=== PATIENT | male | born 1975 | race Caucasian/White ===

== ENCOUNTER 2018-11-13 15:03 | Emergency (ER) | payer MEDICAID, SELFPAY ==
[2018-11-13] VITALS (27 sets, daily range): BP systolic 137–161; BP diastolic 71–122; PULSE 74–103; RESP 14–25; TEMP 36.6–37.4; O2SAT 95–99
--- NOTE | 2018-11-13 15:22 | W.ED.GENAD ---
Discharge Plan Disposition Patient Disposition: HOME Condition: Good Discharge Details Chief Complaint: Chest Pain Clinical Impression: Chest tightness, Hypokalemia, Hypomagnesemia Primary Care Provider: Jerrica Gomes ED Provider: Florencio Scott Home Meds and New Rx's Prescriptions: No Action No Known Home Meds RF: 0 Discharge Instructions Instructions: Hypokalemia (ED), Hypomagnesemia (ED) Additional Instructions: Please follow-up with your primary care physician this week for further evaluation of chest tightness. You may need outpatient stress testing. Your potassium and magnesium were low most likely due to your alcohol use. You should consider trying to cut back on your alcohol consumption. Return to emergency department if you develop new or worsening pain, shortness of breath, lightheadedness, other concerns. Referrals: Jerrica Gomes [Primary Care Provider] - Medical Decision Making Patient arrives with complaint of chest tightness and shortness of breath which has resolved. He has had it maybe 5 times in the last few months. It is not exertional. There is no pleuritic component. There is no radiation of the pain. His EKG is unremarkable. Will place IV and check laboratory studies including 2 sets of troponins. He is PERC negative. He will be given aspirin while labs and chest x-ray are pending. Patient has not had no recurrent symptoms. His first troponin is negative. His HEART score is 1 making him low risk. His potassium and magnesium are low. He is a chronic daily drinker and this is likely the source of his electrolyte disturbance. These are replaced. Liver function is normal. Will hold for second troponin and EKG. If negative can be discharged follow-up with primary care with outpatient stress testing if needed. Patient second EKG remained normal. Second troponin has come back negative. He has had no recurrent symptoms in the ED. He is discharged and asked to follow-up with primary care. He is made aware of the electrolyte abnormalities and the likely cause. He is stable at time of discharge. Lab Data Lab results reviewed: Yes I reviewed the patient's lab results. ECG Data Attestation: I personally reviewed and interpreted this ECG (s) as follows: Interpretation: Normal sinus rhythm at 91. Normal axis and intervals. Normal ST HPI General Mode of arrival: ambulatory. Date/Time Provider Initiated Documentation: 11/13/18 15:21. Limitations to Documentation: no limitations. Information obtained by: patient. HPI Narrative: Patient presents to ED with complaint of chest tightness. He had a little bit of shortness of breath. He did not have diaphoresis, lightheadedness, nausea. Symptoms lasted for maybe half an hour. He has had them in the past intermittently may be 5 times over the last few months. They are not exertional. He has no symptoms now. He does smoke. He otherwise has no cardiac risk factors. He has no pleuritic type pain, leg swelling, leg pain. He has had no fever or cough. Related Data Home Medications Medication Instructions Recorded Confirmed Unknown [No Known Home Meds] 11/13/18 11/13/18 Allergies Allergy/AdvReac Type Severity Reaction Status Date / Time No Known Allergies Allergy Unverified 02/27/18 09:29 General Stated Complaint: Chest Pain SARAH: 2 Review of Systems Constitutional Denies chills, Denies fever(s), Denies headache(s) and Denies weakness ENT Denies otalgia, Denies facial pain, Denies headache(s) and Denies neck pain Cardiovascular Reports chest pain, Denies diaphoresis, Denies syncope, Denies pedal edema, Denies lightheadedness and Reports dyspnea Respiratory Denies cough and Reports dyspnea Gastrointestinal Denies abdominal pain, Denies diarrhea, Denies nausea and Denies vomiting Musculoskeletal Denies back pain and Denies neck pain Integumentary/Breasts Denies rash Neurologic Denies syncope, Denies headache(s), Denies focal weakness and Denies weakness [facility] Social History Smoking/Tobacco Use Status: Current every day Alcohol Intake: current Alcohol Intake frequency: 3 or more drinks per day Drug use: Never Substance use type: does not use Do you feel safe at home: Yes Do you feel safe in your relationship?: Yes Exam Const General: cooperative and comfortable Orientation: alert and oriented x3 HENMT Head: normocephalic and atraumatic Neck Neck: trachea midline and supple Resp Effort & Inspection: normal respiratory effort Auscultation: clear to auscultation bilaterally Cardio Rate: regular rate Rhythm: regular rhythm Heart Sounds: S1 normal and S2 normal Pulses: radial pulses present GI Inspection: non-distended Palpation: soft and nontender Skin Rashes: no rashes Neuro General: alert, oriented x3, no focal motor deficits and CN's II-XI intact bilaterally Extrem General: no clubbing, cyanosis or edema, no pedal edema and no calf tenderness Course Vital Signs Temperature 99.3 F 11/13/18 15:13 Pulse 93 H 11/13/18 15:13 Respiratory Rate 18 11/13/18 15:13 Blood Pressure 161/75 H 11/13/18 15:13 Pulse Oximetry 99 11/13/18 15:13 Temperature 99.3 F 11/13/18 15:13 Pulse 93 H 11/13/18 15:13 Respiratory Rate 18 11/13/18 15:13 Respiratory Effort Non-Labored 11/13/18 15:16 Blood Pressure 161/75 H 11/13/18 15:13 Pulse Oximetry 99 11/13/18 15:13 Oxygen Delivery Method Room Air 11/13/18 15:13 Oxygen Flow Rate 0 11/13/18 15:13 Pain Level 5 11/13/18 15:13
--- NOTE | 2018-11-13 15:41 | DI.RAD_ITS ---
SYMPTOM/DIAGNOSIS: CHEST PAIN PA AND LATERAL CHEST: Comparison is made with 05/15/17. The cardiac and mediastinal contours have a normal appearance. The lungs are well inflated and clear. No infiltrate, effusion or pneumothorax is seen. IMPRESSION: Negative chest xray.
[2018-11-13 15:54] LABS: Abs Immature Grans 0.01 k/cumm (0.0-0.09); Absolute Basophil Count 0.03 k/cumm (0.0-0.2); Absolute Lymphocyte Count 1.43 k/cumm (1.2-3.4); Absolute Monocyte Count 0.95 k/cumm (0.11-0.7); Absolute Neutrophil Count 6.11 k/cumm (1.2-6.7); Basophils % 0.3; Eosinophils % 1.2; HCT 40.9 % (40.0-50.0); HGB 14.4 g/dL (13.5-17.5); Immature Grans % 0.1; Lymphocytes % 16.6; Mean Corp. HGB Concentration 35.2 g/dL (32.0-36.0); Mean Corpuscular Volume 96.7 fL (80-95); Mean Platelet Volume 10.1 fL (8.0-11.0); Neutrophils % 70.8; Platelet Count 190 x1000/uL (130-400); RBC 4.23 m/cumm (4.50-6.00); RBC Distribution Width 12.7 % (11.8-14.1); White Blood Cell Count 8.63 k/cumm (4.4-10.8)
[2018-11-13 16:03] LABS: ALT 78 U/L (12-78); Albumin 3.7 g/dL (3.4-5.0); Alkaline Phosphatase 92 U/L (46-116); Anion Gap 12.7 mmol/L (3-11); BUN 11 mg/dL (7-18); Bilirubin, Total 0.4 mg/dL (0.2-1.0); CO2 26.3 mmol/L (21.0-32.0); CREATININE 0.73 mg/dL (0.70-1.30); Calcium 9.2 mg/dL (8.5-10.1); Chloride 98 mmol/L (98-107); Glucose 151 mg/dL (70-100); Magnesium 1.2 mg/dL (1.8-2.4); Potassium 3.1 mmol/L (3.5-5.1); Sodium 137 mmol/L (136-145); Total Protein 7.5 g/dL (6.4-8.2)
[2018-11-13 16:35] LABS: Troponin I < 0.02 ng/mL (0.00-0.06)
[2018-11-13 16:46] LABS: AST 70 U/L (15-37)
[2018-11-13] MEDS: MAGNESIUM SULFATE 2 GM/50 ML BAG IVPB (17:32)
[2018-11-13] MEDS: Potassium Chloride 20 MEQ TABCR 40 MEQ PO (17:32)
--- NOTE | 2018-11-13 18:03 | DI.VRAD_ITS ---
EXAM: XR Chest, 2 Views EXAM DATE/TIME: 11/13/2018 3:46 PM CLINICAL HISTORY: 43 years old, male; Chest pain for the last 4hrs TECHNIQUE: Imaging protocol: XR of the chest, 2 views. COMPARISON: CR CHEST 2 VIEWS PA,LAT 05/15/2017 7:05 AM FINDINGS: Lungs: Unremarkable. No consolidation. Pleural space: Unremarkable. No pleural effusion. No pneumothorax. Heart/Mediastinum: Unremarkable. No cardiomegaly. Bones/joints: Unremarkable. IMPRESSION: No active pulmonary disease. No acute change compared to 05/15/2017. Dictated and Authenticated by: Jeremy Angeles MD. Ordering:OPHELIA Matias MD
[2018-11-13 20:39] LABS: Troponin I < 0.02 ng/mL (0.00-0.06)
[2018-11-13 20:51] LABS: Lactate-non-spesis 0.8 mmol/l (0.6-1.4)
== END 2018-11-13 21:21 | disposition home or self-care (01) ==
PROVIDERS: Emergency Medicine; Emergency Provider Emergency Medicine; PCP Nurse Practitioner Family
DX: R07.89 Other chest pain (principal); E87.6 Hypokalemia; E83.42 Hypomagnesemia
CPT/HCPCS: 36415; 80053; 93005; 96361; 96365; 96366; 99285; 71046; 83605; 83735; 84484; 85025; 93010

== ENCOUNTER 2018-12-27 17:31 | Emergency (ER) | payer MEDICAID, SELFPAY ==
[2018-12-27 17:45] VITALS: BP 142/94; PULSE 83; RESP 16; TEMP 36.7; O2SAT 96
[2018-12-27] MEDS: Erythromycin Ophth Oint 3.5 GM TUBE (18:35)
[2018-12-27] MEDS: Tetracaine 0.5% 4 ML BTL (18:35)
[2018-12-27] MEDS: Fluorescein STRIPS 100/BOX 1 MG (18:35)
--- NOTE | 2018-12-27 18:37 | W.ED.GENAD ---
Discharge Plan Disposition Patient Disposition: HOME Condition: Good Discharge Details Chief Complaint: EyeProblem Clinical Impression: Conjunctivitis of right eye Primary Care Provider: Jerrica Gomes ED Provider: Alejandro Thomas Home Meds and New Rx's Prescriptions: No Action No Known Home Meds RF: 0 Discharge Instructions Instructions: Conjunctivitis (ED) Additional Instructions: Please apply a thin ribbon of the erythromycin ointment to your eye 4 times daily. Please follow-up as soon as possible with Dr. Charles. If you notice worsening of her symptoms or new symptoms of vision changes, eye pain, fever or chills, or swelling around the eye please return immediately. Referrals: [facility] [OTHER] - Discharge Data Discharge Date/Time-TO BE ENTERED AT DEPARTURE: 12/27/18 19:00 Medical Decision Making This is a pleasant 43-year-old male with no significant past medical history who does not wear contact lenses who presents today for evaluation of irritation to his right eye. Symptoms began this morning. Physical exam demonstrates mild conjunctival injection with clear runny drainage. No evidence of significant purulence. Floor seen stain demonstrates no evidence of corneal abrasion or uptake, negative Subhash sign. No evidence of pre-or post septal cellulitis. Signs and symptoms appear clinically consistent with a viral conjunctivitis. Recommend eyewashes, handwashing techniques, will give erythromycin ointment for symptom improvement. We discussed red flags which to return as well as the importance of close follow-up with his memory care program resident Dr. Charles. I have extensively reviewed the treatment plan and discharge instructions with the patient and their family. I have addressed all patient concerns at this time. The patient and family was made aware of what symptoms to monitor for that would warrant a return to the emergency department. Discussed the plan with the patient and family, they demonstrate verbal understanding and agreement with our assessment and plan at this time. Physical HPI General Date/Time Provider Initiated Documentation: 12/27/18 18:07. HPI Narrative: This is a 43-year-old male with no significant past medical history who is not a contact lens wear who presents for irritation in his right eye. He states that it started this morning when he woke up, and it feels like there is a yamil grinding sensation in his eye. He denies any foreign bodies, any working with metal, welding, or hammers. He denies any new trauma to his eye. He denies any vision changes, or pain with movement of the eye he does admit to a very small amount of clear drainage from his right eye, but denies any other complaints. No other modifying factors. Tetanus is up-to-date.. Related Data Home Medications Medication Instructions Recorded Confirmed Unknown [No Known Home Meds] 11/13/18 12/27/18 Allergies Allergy/AdvReac Type Severity Reaction Status Date / Time No Known Allergies Allergy Unverified 12/27/18 17:48 General Stated Complaint: EyeProblem SARAH: 5 Review of Systems Review of Systems All systems reviewed & are unremarkable except as noted in HPI and below PFSH Social History Smoking/Tobacco Use Status: Current every day Alcohol Intake: current Alcohol Intake frequency: 3 or more drinks per day Drug use: Never Substance use type: does not use Do you feel safe at home: Yes Do you feel safe in your relationship?: Yes Exam Narrative Exam Narrative: 1.Const: Well-nourished, Well-developed, appearing stated age 2.Eyes: PERRL, notable right conjunctival injection, and symmetrical lids. Right eye: EOMI, PERRL, Peripheral vision intact. No nystagmus. Fundoscopic exam shows normal optic discs and normal vasculature. No external signs of preseptal cellulitis, no redness around the eye, no proptosis. No hyphema, no signs of trauma around the eye, no periorbital emphysema. Fluorescein exam is negative for corneal abrasion, negative Subhash sign. Visual acuity as documented in chart. 3.ENT: Atraumatic external nose and ears. Moist MM. Neck: Symmetric, trachea midline, No thyromegaly. 4.CVS: +S1/S2, No murmurs or gallops. Peripheral pulses 2+ and equal in all extremities. Brisk capillary refill in all extremities. 5.RESP: Unlabored respiratory effort. Clear to auscultation bilaterally. No wheezes rales or rhonchi 6.GI: Soft, Nontender/Nondistended, No hepatosplenomegaly. No guarding or rebound. 7.MSK: Normocephalic/Atraumatic, Extremities w/o deformity or ttp No cyanosis or clubbing, Normal movement of all extremities 8.Skin: Warm, Dry. No rashes or lesions. 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 Sensation grossly intact, no focal neurologic deficits. 10.Psych: (AAO) x3. Appropriate mood and affect Course Vital Signs Temperature 36.7 C 12/27/18 17:45 Pulse 83 12/27/18 17:45 Respiratory Rate 16 12/27/18 17:45 Blood Pressure 142/94 H 12/27/18 17:45 Pulse Oximetry 96 12/27/18 17:45 Temperature 36.7 C 12/27/18 17:45 Temperature Source Skin 12/27/18 17:45 Pulse 83 12/27/18 17:45 Respiratory Rate 16 12/27/18 17:45 Respiratory Effort Non-Labored 12/27/18 17:47 Blood Pressure 142/94 H 12/27/18 17:45 Pulse Oximetry 96 12/27/18 17:45 Pain Level 7 12/27/18 17:45
== END 2018-12-27 19:00 | disposition home or self-care (01) ==
PROVIDERS: Emergency Provider Student in an Organized Health Care Education/Training Program; PCP Nurse Practitioner Family
DX: H10.31 Unspecified acute conjunctivitis, right eye (principal)
CPT/HCPCS: 99283

== ENCOUNTER 2019-01-09 11:46 | Emergency (ER) | payer MEDICAID, SELFPAY ==
[2019-01-09 11:54] VITALS: BP 120/80; PULSE 90; RESP 18; TEMP 36.5; O2SAT 95
--- NOTE | 2019-01-09 12:08 | W.ED.GENAD ---
Discharge Plan Disposition Patient Disposition: HOME Condition: Stable Discharge Details Chief Complaint: Orthopedic Clinical Impression: Blunt chest trauma, Blunt abdominal trauma, Left rib fracture Primary Care Provider: Jerrica Gomes ED Provider: Manolo Jeffers Home Meds and New Rx's Prescriptions: No Action ibuprofen 200 mg Tablet 400 mg PO PRN PRNRF: 0 Discharge Instructions Instructions: Rib Fracture (ED) Additional Instructions: use the spirometer every hour while awake you can take 1000mg tylenol and 600mg ibuprofen every 6 hours for pain as needed if you have severe worsening of pain, difficulty breathing or fevers return to the emergency department Medical Decision Making 43 yo male who denies chronic medical problems comes in with rigth flank pain. he states two days ago he tripped over a boot and landed on a chair on his right flank area, denies head trauma or loc. Denies chest pain, sob, neck pain or headache. He has bruising to the right flank with lower rib pain and some right sided abdominal tenderness. given the fall will image to eval for traumatic injuries. He denies any preceding symptoms so doubt presyncope/syncope labs unremarkable, ct shows nondisplaced posterior left 11th rib per dr. winn. He remains stable, declining pain meds. will d/c with IS and return precautions given Differential Diagnosis contusion, sprain, fx Medical Records Medical records reviewed: Yes I reviewed the patient's medical records. Imaging Data Radiologic Study: Attestation: I personally reviewed and interpreted this imaging study as follows: Imaging: CT Scan Radiologist's impression: 11th rib fx Lab Data Lab results reviewed: Yes I reviewed the patient's lab results. HPI General Mode of arrival: ambulatory. Date/Time Provider Initiated Documentation: 01/09/19 11:55. Limitations to Documentation: no limitations. Information obtained by: patient. History of Present Illness 43 year old M presents to the emergency department with the chief complaint of right flank pain, described as moderate, Quality is described as aching, and is localized to the back. Patient reports radiation to back. Patient started experiencing this day(s) (2) and it has been constant. No relieving factors improve symptom(s), No exacerbating factors reported . Patient notes no other symptoms.. Patient did receive the following treatments prior to arrival, NSAID Related Data Home Medications Medication Instructions Recorded Confirmed ibuprofen 400 mg PO PRN PRN 01/09/19 01/09/19 Allergies Allergy/AdvReac Type Severity Reaction Status Date / Time No Known Allergies Allergy Unverified 01/09/19 12:12 General Stated Complaint: Orthopedic SARAH: 4 Review of Systems Review of Systems All systems reviewed & are unremarkable except as noted in HPI and below Constitutional Denies chills, Denies fever(s) and Denies weakness ENT Denies change in voice Cardiovascular Denies chest pain and Denies dyspnea Respiratory Denies cough and Denies dyspnea Gastrointestinal Denies nausea and Denies vomiting Genitourinary Denies dysuria Integumentary/Breasts Denies rash Neurologic Denies weakness Psychiatric Denies depression [facility] Social History Smoking/Tobacco Use Status: Current every day Alcohol Intake: current Alcohol Intake frequency: 3 or more drinks per day Drug use: Never Substance use type: does not use Do you feel safe at home: Yes Do you feel safe in your relationship?: Yes Exam Const General: no acute distress Orientation: alert HENMT Head: normal to inspection Ears: external ears normal General nose exam: external nose normal Mouth: moist mucous membranes Eyes General: appearance normal, both eyes and all related structures Neck Neck: normal visual inspection Resp Effort & Inspection: normal respiratory effort and able to speak in complete sentences Cardio Rate: regular rate Skin General skin exam: elasticity normal Neuro General: alert and oriented x3 Extrem General: normal to inspection Psych Mental Status: mental status grossly normal Course Vital Signs Temperature 36.5 C 01/09/19 11:54 Pulse 90 01/09/19 11:54 Respiratory Rate 18 01/09/19 11:54 Blood Pressure 120/80 01/09/19 11:54 Pulse Oximetry 95 01/09/19 11:54 Temperature 36.5 C 01/09/19 11:54 Temperature Source Temporal Artery Scan 01/09/19 11:54 Pulse 90 01/09/19 11:54 Respiratory Rate 18 01/09/19 11:54 Respiratory Effort 01/09/19 11:58 Blood Pressure 120/80 01/09/19 11:54 Pulse Oximetry 95 01/09/19 11:54 Oxygen Delivery Method Room Air 01/09/19 11:54 Oxygen Flow Rate 0 01/09/19 11:54 Pain Level 6 01/09/19 11:54
--- NOTE | 2019-01-09 12:13 | ED.GENADUL_ITS ---
Discharge Plan Disposition Patient Disposition: HOME Condition: Stable Discharge Details Chief Complaint: Orthopedic Clinical Impression: Blunt chest trauma, Blunt abdominal trauma, Left rib fracture Primary Care Provider: Jerrica Gomes ED Provider: Manolo Jeffers Home Meds and New Rx's Prescriptions: No Action ibuprofen 200 mg Tablet 400 mg PO PRN PRNRF: 0 Discharge Instructions Instructions: Rib Fracture (ED) Additional Instructions: use the spirometer every hour while awake you can take 1000mg tylenol and 600mg ibuprofen every 6 hours for pain as needed if you have severe worsening of pain, difficulty breathing or fevers return to the emergency department Medical Decision Making 43 yo male who denies chronic medical problems comes in with rigth flank pain. he states two days ago he tripped over a boot and landed on a chair on his right flank area, denies head trauma or loc. Denies chest pain, sob, neck pain or headache. He has bruising to the right flank with lower rib pain and some right sided abdominal tenderness. given the fall will image to eval for traumatic injuries. He denies any preceding symptoms so doubt presyncope/syncope labs unremarkable, ct shows nondisplaced posterior left 11th rib per dr. winn. He remains stable, declining pain meds. will d/c with IS and return precautions given Differential Diagnosis contusion, sprain, fx Medical Records Medical records reviewed: Yes I reviewed the patient's medical records. Imaging Data Radiologic Study: Attestation: I personally reviewed and interpreted this imaging study as follows: Imaging: CT Scan Radiologist's impression: 11th rib fx Lab Data Lab results reviewed: Yes I reviewed the patient's lab results. HPI General Mode of arrival: ambulatory . Date/Time Provider Initiated Documentation: 01/09/19 11:55 . Limitations to Documentation: no limitations . Information obtained by: patient . History of Present Illness 43 year old M presents to the emergency department with the chief complaint of right flank pain, described as moderate, Quality is described as aching, and is localized to the back. Patient reports radiation to back. Patient started experiencing this day(s) (2) and it has been constant. No relieving factors improve symptom(s), No exacerbating factors reported . Patient notes no other symptoms.. Patient did receive the following treatments prior to arrival, NSAID Related Data Home Medications Medication Instructions Recorded Confirmed ibuprofen 400 mg PO PRN PRN 01/09/19 01/09/19 Allergies Allergy/AdvReac Type Severity Reaction Status Date / Time No Known Allergies Allergy Unverified 01/09/19 12:12 General Stated Complaint: Orthopedic SARAH: 4 Review of Systems Review of Systems All systems reviewed & are unremarkable except as noted in HPI and below Constitutional Denies chills, Denies fever(s) and Denies weakness ENT Denies change in voice Cardiovascular Denies chest pain and Denies dyspnea Respiratory Denies cough and Denies dyspnea Gastrointestinal Denies nausea and Denies vomiting Genitourinary Denies dysuria Integumentary/Breasts Denies rash Neurologic Denies weakness Psychiatric Denies depression [facility] Social History Smoking/Tobacco Use Status: Current every day Alcohol Intake: current Alcohol Intake frequency: 3 or more drinks per day Drug use: Never Substance use type: does not use Do you feel safe at home: Yes Do you feel safe in your relationship?: Yes Exam Const General: no acute distress Orientation: alert HENMT Head: normal to inspection Ears: external ears normal General nose exam: external nose normal Mouth: moist mucous membranes Eyes General: appearance normal, both eyes and all related structures Neck Neck: normal visual inspection Resp Effort & Inspection: normal respiratory effort and able to speak in complete sentences Cardio Rate: regular rate Skin General skin exam: elasticity normal Neuro General: alert and oriented x3 Extrem General: normal to inspection Psych Mental Status: mental status grossly normal Course Vital Signs Temperature 36.5 C 01/09/19 11:54 Pulse 90 01/09/19 11:54 Respiratory Rate 18 01/09/19 11:54 Blood Pressure 120/80 01/09/19 11:54 Pulse Oximetry 95 01/09/19 11:54 Temperature 36.5 C 01/09/19 11:54 Temperature Source Temporal Artery Scan 01/09/19 11:54 Pulse 90 01/09/19 11:54 Respiratory Rate 18 01/09/19 11:54 Respiratory Effort 01/09/19 11:58 Blood Pressure 120/80 01/09/19 11:54 Pulse Oximetry 95 01/09/19 11:54 Oxygen Delivery Method Room Air 01/09/19 11:54 Oxygen Flow Rate 0 01/09/19 11:54 Pain Level 6 01/09/19 11:54
[2019-01-09] MEDS: Ketorolac 15 MG/ML VIAL IVP (12:22)
[2019-01-09 12:35] LABS: Abs Immature Grans 0.03 k/cumm (0.0-0.09); Absolute Basophil Count 0.05 k/cumm (0.0-0.2); Absolute Eosinophil Count 0.17 k/cumm (0.0-0.7); Absolute Lymphocyte Count 3.14 k/cumm (1.2-3.4); Absolute Neutrophil Count 5.77 k/cumm (1.2-6.7); Basophils % 0.5; Eosinophils % 1.7; HCT 46.3 % (40.0-50.0); HGB 16.1 g/dL (13.5-17.5); Immature Grans % 0.3; Lymphocytes % 30.6; Mean Corp. HGB Concentration 34.8 g/dL (32.0-36.0); Mean Corpuscular Hemoglobin 34.3 pg (27.0-33.0); Mean Corpuscular Volume 98.7 fL (80-95); Mean Platelet Volume 9.7 fL (8.0-11.0); Monocytes % 10.7; Neutrophils % 56.2; Platelet Count 224 x1000/uL (130-400); RBC 4.69 m/cumm (4.50-6.00); RBC Distribution Width 12.7 % (11.8-14.1); White Blood Cell Count 10.26 k/cumm (4.4-10.8)
[2019-01-09 12:41] LABS: PTT Activated 25.1 sec (21.0-31.4); Prothrombin Time 10.1 sec (9.3-11.0)
[2019-01-09 12:42] LABS: ALT 57 U/L (12-78); AST 46 U/L (15-37); Alkaline Phosphatase 63 U/L (46-116); Anion Gap 13.5 mmol/L (3-11); BUN 12 mg/dL (7-18); Bilirubin, Total 0.3 mg/dL (0.2-1.0); CO2 26.5 mmol/L (21.0-32.0); CREATININE 0.83 mg/dL (0.70-1.30); Calcium 9.3 mg/dL (8.5-10.1); Chloride 103 mmol/L (98-107); Glucose 109 mg/dL (70-100); Potassium 3.7 mmol/L (3.5-5.1); Sodium 143 mmol/L (136-145); Total Protein 8.4 g/dL (6.4-8.2)
[2019-01-09] MEDS: Omnipaque 350 MG/ML 100 ML BTL IJ (12:53)
[2019-01-09] MEDS: Normal Saline Flush 10 ML SYR IVP (12:55)
--- NOTE | 2019-01-09 13:00 | DI.CT_ITS ---
SYMPTOMS/DIAGNOSIS: RT LOWER THORAX/ABDOMEN PAIN, S/P TRAUMA CT OF THE CHEST, ABDOMEN AND PELVIS: Comparison is made with abdomen and pelvic CT dated and chest x-ray dated . Images were performed from the clavicles through the ischial tuberosities after IV contrast. The heart and great vessels appear intact. There are coronary artery calcifications. The heart size is normal. No pleural or pericardial effusions are seen. There are mild paraseptal emphysematous changes greatest in the right upper lobe. There is no evidence of pneumothorax or pulmonary contusion. There is a nondisplaced fracture of the left eleventh rib posteriorly. There is slight deformity of the lateral tenth rib which may represent an old fracture. No spine or pelvic fractures are seen. The liver, spleen, pancreas, adrenals and gallbladder are unremarkable. There is a cyst at the upper pole of the left kidney. There is slight stranding around the kidneys but no evidence of a focal renal injury. There is no free air or free fluid. There is no bowel dilatation or inflammatory change. The appendix appears normal. The prostate and bladder are unremarkable. IMPRESSION: Nondisplaced fracture of the left eleventh rib. Minimal amount of stranding is seen around the kidneys but there is no evidence of focal renal injury.
[2019-01-09 13:57] VITALS: BP 115/74; PULSE 74; RESP 18; O2SAT 98
== END 2019-01-09 13:46 | disposition home or self-care (01) ==
PROVIDERS: Emergency Provider Emergency Medicine; PCP Nurse Practitioner Family
DX: S22.32XA Fracture of one rib, left side, initial encounter for closed fracture (principal); W01.190A Fall on same level from slipping, tripping and stumbling with subsequent striking against furniture, initial encounter
CPT/HCPCS: 36415; 74177; 80053; 96374; 99285; 71260; 85025; 85610; 85730; 99284; J1885; J3490

== ENCOUNTER 2019-01-14 15:02 | Emergency (ER) | payer MEDICAID, SELFPAY ==
[2019-01-14 15:11] VITALS: BP 137/85; PULSE 96; RESP 16; TEMP 36.8; O2SAT 94
--- NOTE | 2019-01-14 17:20 | ED.GENADUL_ITS ---
Discharge Plan Disposition Patient Disposition: LEFT WITHOUT BEING SEEN Discharge Details Chief Complaint: GenMedical Primary Care Provider: Jerrica Gomes ED Provider: Alecia Tavera Discharge Data Discharge Date/Time-TO BE ENTERED AT DEPARTURE: 01/14/19 15:50 HPI General Date/Time Provider Initiated Documentation: 01/14/19 15:23 . HPI Narrative: Patient apparently left the emergency department without notifying staff. He left prior to being evaluated by me. Related Data Home Medications Medication Instructions Recorded Confirmed ibuprofen 400 mg PO PRN PRN 01/09/19 01/14/19 Allergies Allergy/AdvReac Type Severity Reaction Status Date / Time No Known Allergies Allergy Unverified 01/09/19 12:12 General Stated Complaint: GenMedical SARAH: 3 PFSH Social History Smoking/Tobacco Use Status: Current every day Tobacco Type: cigarettes Alcohol Intake: current Alcohol Intake frequency: 3 or more drinks per day Alcohol type: hard liquor Drug use: Never Substance use type: does not use Do you feel safe at home: Yes Do you feel safe in your relationship?: Yes Course Vital Signs Temperature 36.8 C 01/14/19 15:11 Pulse 96 H 01/14/19 15:11 Respiratory Rate 16 01/14/19 15:11 Blood Pressure 137/85 01/14/19 15:11 Pulse Oximetry 94 L 01/14/19 15:11 Temperature 36.8 C 01/14/19 15:11 Temperature Source Skin 01/14/19 15:11 Pulse 96 H 01/14/19 15:11 Respiratory Rate 16 01/14/19 15:11 Respiratory Effort Non-Labored 01/14/19 15:13 Blood Pressure 137/85 01/14/19 15:11 Pulse Oximetry 94 L 01/14/19 15:11 Pain Level 8 01/14/19 15:11
== END 2019-01-14 15:50 | disposition left before discharge ==
PROVIDERS: Emergency Provider Student in an Organized Health Care Education/Training Program; PCP Nurse Practitioner Family
DX: R69 Illness, unspecified (principal); Z53.21 Procedure and treatment not carried out due to patient leaving prior to being seen by health care provider

== ENCOUNTER 2019-04-10 05:28 | Emergency (ER) | payer MEDICAID, SELFPAY ==
[2019-04-10] VITALS (13 sets, daily range): BP systolic 127–159; BP diastolic 76–101; PULSE 72–86; RESP 16–24; TEMP 36.7; O2SAT 92–99
--- NOTE | 2019-04-10 05:52 | ED.GENADUL_ITS ---
Discharge Plan Disposition Patient Disposition: HOME Condition: Good Discharge Details Chief Complaint: Palpitatns Clinical Impression: Dehydration, Vertigo, Acute dyspnea Primary Care Provider: Jerrica Gomes ED Provider: Alejandro Thomas Home Meds and New Rx's Prescriptions: New meclizine 25 mg tablet 25 mg PO TID Qty: 14 RF: 0 No Action ibuprofen 200 mg Tablet 400 mg PO PRN PRNRF: 0 Discharge Instructions Instructions: Dehydration (ED), Vertigo (ED) Additional Instructions: Your laboratory work-up, EKG, and imaging shows no evidence of significant life- threatening problem at this time. Your dizziness is secondary to peripheral vertigo. Please make sure you are drinking 10-12 cups of water per day. Please take the medication meclizine for your dizziness as directed. If you notice any worsening of your symptoms, or any new symptoms such as vomiting, diarrhea, fever, chills, shortness of breath, chest pain, numbness, weakness, or fainting , please return immediately to the emergency department for reevaluation. Please follow up with your primary care provider as soon as possible for reassessment and reevaluation. As always, it was a pleasure participating in your medical care today. Stand Alone Forms: Work Release Referrals: Jerrica Gomes [Primary Care Provider] - Medical Decision Making This is a pleasant 44-year-old male with past medical history of tobacco abuse who presents today for evaluation of shortness of breath and mild dizziness. Symptoms began at 130 this morning. Shortness of breath is continued and is unrelieved. There is no positional changes. He did just recently get back from a long trip from [place]. He denies any chest pain, chest tightness, or chest heaviness. He denies any arm neck or shoulder pain. He denies any vomiting or diarrhea, history of cardiac disease or PE. Family history is negative for cardiac disease per the patient. Physical exam shows no signs of neurologic deficit. No concern for central cerebellar event is based on exam and history. He does have mild horizontal nystagmus, concerning for mild peripheral vertigo, EKG is unremarkable with no evidence of STEMI. Differential includes PE, atypical ACS, mild dehydration causing his dizziness. We will rehydrate, evaluate for life-threatening etiologies and reassess. 6:47 AM Laboratory work-up has returned, no significant laboratory abnormalities. Minimal white count at 11.4, no severe left shift. No bandemia. Electrolytes normal aside for slightly low potassium at 3.2 renal function stable, troponin less than 0.05, proBNP normal, d-dimer negative. Chest x-ray demonstrates no acute process per virtual radiology. On reassessment after 1 L of normal saline and 25 mg of meclizine the patient has complete resolution of his symptoms. He states he feels much better, his dizziness and shortness of breath have both resolved. Patient's heart score is 2 points, putting him in the low risk category. I recommended to the patient that he continues to stay for serial troponins and EKG but he states that he feels completely better he states he would like to go home now and not stay any longer. Respecting the patient's wishes I would discharge him. We will give him 40 M EQ of potassium here for his minimally low potassium. We will give him meclizine for home use. Spent a long time with the patient discussing the importance of smoking cessation, as well as return for any of his symptoms should they return. Recommended significant fluid intake at home. Close follow-up with his PCP. I have extensively reviewed the treatment plan and discharge instructions with the patient. I have addressed all patient concerns at this time. The patient was made aware of what symptoms to monitor for that would warrant a return to the emergency department. Discussed the plan with the patient, they demonstrate verbal understanding and agreement with our assessment and plan at this time. EKG 5: 39 Rate 81, intervals normal, sinus rhythm, no significant ST elevations or depressions aside for mild less than 1 mm J-point elevation in V1. No reciprocal depressions. No significant Q waves. No inverted T waves. Previous EKGs from 2019 demonstrates similar findings except in previous EKGs there were inverted T waves for V1. FINDINGS: Lungs: Unremarkable. No consolidation. Pleural space: Unremarkable. No evidence of pneumothorax. Heart/Mediastinum: Unremarkable. Heart size within normal limits for technique. Bones/joints: Unremarkable. IMPRESSION: No acute findings. Dictated and Authenticated by: Nicholas Palumbo MD. Ordering:IFEANYI Allen MD HPI General Date/Time Provider Initiated Documentation: 04/10/19 05:39 . HPI Narrative: This is a pleasant 44-year-old male with a past medical history of tobacco use who presents today for evaluation of shortness of breath and dizziness. Patient states that this morning he woke up in bed at 1:30 AM and felt like he just could not catch his breath. He denies any significant pain in his chest, chest tightness, chest heaviness, arm neck or shoulder pain. He also noted some mild sensation of palpitations as well as mild dizziness when you get up and sit up quickly. He denies any numbness tingling or weakness. He denies any headache. He denies any vision changes. He continues to smoke roughly half a pack per day. He denies any history of cardiac disease. Denies PE risk factors such as recent recent surgery, prior history of DVT or PE, family history of PE or DVT, morbid obesity, exogenous estrogen, hemoptysis, history of cancer. He denies any cough. He does though admit to a recent trip to [place] post a few days ago. He denies any calf tenderness. He has no other complaints at this time. No other modifying factors. He does state that he did have episode like this a few months ago, but it resolved on his own. At that time he was also not exertional. Related Data Home Medications Medication Instructions Recorded Confirmed ibuprofen 400 mg PO PRN PRN 01/09/19 04/10/19 meclizine 25 mg PO TID #14 tab 04/10/19 Previous Rx's Medication Instructions Recorded meclizine 25 mg PO TID #14 tab 04/10/19 Allergies Allergy/AdvReac Type Severity Reaction Status Date / Time No Known Allergies Allergy Unverified 01/09/19 12:12 General Stated Complaint: Palpitatns SARAH: 2 Review of Systems Review of Systems All systems reviewed & are unremarkable except as noted in HPI and below PFSH Social History Smoking/Tobacco Use Status: Current every day Tobacco Type: cigarettes Smoking cigarettes per day: 10 Alcohol Intake: current Alcohol Intake frequency: 3 or more drinks per day Alcohol type: hard liquor Drug use: Never Substance use type: does not use Do you feel safe at home: Yes Do you feel safe in your relationship?: Yes Exam Narrative Exam Narrative: 1.Const: Well-nourished, Well-developed, appearing stated age 2.Eyes: PERRL, no conjunctival injection, and symmetrical lids. Mild horizontal nystagmus 3.ENT: Atraumatic external nose and ears. Moist MM. Neck: Symmetric, trachea midline, No thyromegaly. 4.CVS: +S1/S2, No murmurs or gallops. Peripheral pulses 2+ and equal in all extremities. Brisk capillary refill in all extremities. 5.RESP: Unlabored respiratory effort. Clear to auscultation bilaterally. No wheezes rales or rhonchi 6.GI: Soft, Nontender/Nondistended, No hepatosplenomegaly. No guarding or rebound. 7.MSK: Normocephalic/Atraumatic, Extremities w/o deformity or ttp No cyanosis or clubbing, Normal movement of all extremities 8.Skin: Warm, Dry. No rashes or lesions. 9.Neuro: tester operator II-XII grossly intact. Sensation grossly intact, no focal neurologic deficits. All 6 cardinal planes of vision are fully intact. No evidence of rotatory or vertical nystagmus. The patient demonstrated a normal [id number], good dexterity. There was no evidence of dysdiadochokinesia. Patient was able to ambulate without difficulty. There was no wide-based gait. Romberg, and [id number] are both normal on testing. Sensation was intact bilaterally as well as muscle strength bilaterally for all extremities. Patient was able to verbalize butter cup with no slurring, or miss pronunciation. Cerebellar function testing is normal. The patient demonstrates a normal hints exam with no findings concerning for a central event. No vertical nystagmus. He does have notable horizontal nystagmus though. The head impulse test is negative for any significant central abnormality and is unchanged with movement. Normal test of skew. No suggestion of a central cerebellar event. 10.Psych: (AAO) x3. Appropriate mood and affect Course Vital Signs Temperature 36.7 C 04/10/19 05:32 Pulse 86 04/10/19 05:32 Respiratory Rate 18 04/10/19 05:32 Blood Pressure 159/76 H 04/10/19 05:32 Pulse Oximetry 96 04/10/19 05:32 Temperature 36.7 C 04/10/19 05:32 Temperature Source Tympanic 04/10/19 05:32 Pulse 86 04/10/19 05:32 Respiratory Rate 18 04/10/19 05:32 Respiratory Effort Non-Labored 04/10/19 05:36 Blood Pressure 159/76 H 04/10/19 05:32 Pulse Oximetry 96 04/10/19 05:32 Oxygen Delivery Method Room Air 04/10/19 05:32 Oxygen Flow Rate 0 04/10/19 05:32 Pain Level 0 04/10/19 05:32
[2019-04-10 05:54] LABS: Abs Immature Grans 0.05 k/cumm (0.0-0.09); Absolute Eosinophil Count 0.19 k/cumm (0.0-0.7); Absolute Lymphocyte Count 2.63 k/cumm (1.2-3.4); Absolute Monocyte Count 0.97 k/cumm (0.11-0.7); Basophils % 0.4; Eosinophils % 1.7; HCT 41.5 % (40.0-50.0); HGB 14.6 g/dL (13.5-17.5); Immature Grans % 0.4; Lymphocytes % 23.1; Mean Corp. HGB Concentration 35.2 g/dL (32.0-36.0); Mean Corpuscular Hemoglobin 34.5 pg (27.0-33.0); Mean Corpuscular Volume 98.1 fL (80-95); Mean Platelet Volume 9.7 fL (8.0-11.0); Monocytes % 8.5; Neutrophils % 65.9; Platelet Count 252 x1000/uL (130-400); RBC 4.23 m/cumm (4.50-6.00)
[2019-04-10 05:56] LABS: Absolute Basophil Count 0.05 k/cumm (0.0-0.2); Absolute Neutrophil Count 7.51 k/cumm (1.2-6.7)
--- NOTE | 2019-04-10 06:00 | DI.RAD_ITS ---
SYMPTOM/DIAGNOSIS: SOB, CHEST PAIN PA AND LATERAL CHEST: The heart is normal in size. The lungs are clear. The mediastinal structures and pleura appear intact. CONCLUSION: Normal chest.
[2019-04-10] MEDS: Normal Saline 1,000 ML 1000 ML IV (06:04)
[2019-04-10] MEDS: Meclizine 25 MG TAB PO (06:04)
[2019-04-10 06:11] LABS: PTT Activated 24.9 sec (21.0-31.4); Prothrombin Time 9.8 sec (9.3-11.0)
[2019-04-10 06:21] LABS: NT-proBNP 14 pg/mL
--- NOTE | 2019-04-10 06:22 | DI.VRAD_ITS ---
EXAM: XR Chest, 2 Views EXAM DATE/TIME: 04/10/2019 5:40 AM CLINICAL HISTORY: 44 years old, male; Cough and shortness of breath; Chest pain; Type not specified; Patient HX: Palpitations for 6 months on and off TECHNIQUE: Imaging protocol: XR of the chest, 2 views. COMPARISON: CR XR CHEST 2V PA LATERAL 11/13/2018 5:21 PM FINDINGS: Lungs: Unremarkable. No consolidation. Pleural space: Unremarkable. No evidence of pneumothorax. Heart/Mediastinum: Unremarkable. Heart size within normal limits for technique. Bones/joints: Unremarkable. IMPRESSION: No acute findings. Dictated and Authenticated by: Nicholas Palumbo MD. Ordering:IFEANYI Allen MD
[2019-04-10 06:23] LABS: ALT 34 U/L (12-78); AST 18 U/L (15-37); Albumin 2.2 g/dL (3.4-5.0); Alkaline Phosphatase 79 U/L (46-116); Anion Gap 12.8 mmol/L (3-11); BUN 13 mg/dL (7-18); Bilirubin, Total 0.3 mg/dL (0.2-1.0); CO2 21.2 mmol/L (21.0-32.0); CREATININE 0.84 mg/dL (0.70-1.30); Calcium 9.3 mg/dL (8.5-10.1); Chloride 103 mmol/L (98-107); Glucose 128 mg/dL (70-100); Potassium 3.2 mmol/L (3.5-5.1); Sodium 137 mmol/L (136-145); TSH (W/Ref FT4) 0.98 uIU/mL (0.36-3.74); Total Protein 7.3 g/dL (6.4-8.2)
[2019-04-10 06:25] LABS: Troponin I < 0.05 ng/mL (0.00-0.06)
[2019-04-10 06:34] LABS: D-Dimer 160 ng/mlFEU (<500)
[2019-04-10] MEDS: Potassium Chloride 20 MEQ TABCR 40 MEQ PO (06:50)
== END 2019-04-10 07:00 | disposition home or self-care (01) ==
PROVIDERS: Emergency Provider Student in an Organized Health Care Education/Training Program; PCP Nurse Practitioner Family
DX: E86.0 Dehydration (principal); R42 Dizziness and giddiness; R06.00 Dyspnea, unspecified; E87.6 Hypokalemia; F17.210 Nicotine dependence, cigarettes, uncomplicated
CPT/HCPCS: 36415; 80053; 93005; 96360; 99285; 71046; 83880; 84443; 84484; 85025; 85379; 85610; 85730; 93010; 99284

== ENCOUNTER 2019-08-10 09:35 | Emergency (ER) | payer MEDICAID, SELFPAY ==
[2019-08-10 09:43] VITALS: BP 154/104; PULSE 74; RESP 18; TEMP 36.9; O2SAT 98
--- NOTE | 2019-08-10 09:59 | ED.GENADUL_ITS ---
Discharge Plan Discharge Details Chief Complaint: EyeProblem Primary Care Provider: Jerrica Gomes ED Provider: Toro Luciano Home Meds and New Rx's Prescriptions: No Action ibuprofen 200 mg Tablet 400 mg PO PRN PRNRF: 0 meclizine 25 mg tablet 25 mg PO TID Qty: 14 RF: 0 Medical Decision Making 44-year-old male with bilateral conjunctivitis allergic versus viral versus bacterial no evidence of ulceration no foreign body on upper or lower lids extraocular motions intact visual acuity 20/20. Plan ophthalmology follow-up Monday [place] and strict return to the emergency department for any vision loss increasing pain or other concern. HPI 44-year-old male past medical history of EtOH abuse tobacco use presents with 2 days and eye crusting mild eye injection feeling of bilateral eye irritation no foreign body sensation does not work with small particles began with both eyes. No vision change no trauma. No other complaints no history of systemic illness no recent infection. Pain is sharp irritating worse in the morning does not change with blinking. General Date/Time Provider Initiated Documentation: 08/10/19 09:44 . Related Data Home Medications Medication Instructions Recorded Confirmed ibuprofen 400 mg PO PRN PRN 01/09/19 04/10/19 meclizine 25 mg PO TID #14 tab 04/10/19 Previous Rx's Medication Instructions Recorded meclizine 25 mg PO TID #14 tab 04/10/19 Allergies Allergy/AdvReac Type Severity Reaction Status Date / Time No Known Allergies Allergy Unverified 01/09/19 12:12 General Stated Complaint: EyeProblem SARAH: 4 Review of Systems All systems reviewed & are unremarkable except as noted in HPI and below PFSH Medical History Alcohol use (Acute) Social History Smoking/Tobacco Use Status: Current every day Tobacco Type: cigarettes Alcohol Intake: current Alcohol Intake frequency: 3 or more drinks per day Alcohol type: hard liquor Drug use: Never Substance use type: does not use Do you feel safe at home: Yes Do you feel safe in your relationship?: Yes Exam Narrative Exam Narrative: Pulse oximetry reviewed by me and is normal [] Constitutional: Pt is in no acute distress. pt is well appearing. oriented to person, place, and time. Eyes: conjunctivae are normal. Pupils are equal, round, and reactive to light. No scleral icterus. extraocular muscles are intact Ears/Nose/Mouth/Throat: mucus membranes are moist. Musculoskeletal: neck is supple. normal range of motion in all extremities. Cardiovascular: Normal rate and rhythm. No lower extremity edema [] Respiratory: effort is normal . pt exhibits no stridor or respiratory distress. [] Neurological: alert and oriented to person, place, and time. he has normal strength, no tremor. Skin: Skin is warm and dry. he is not diaphoretic. Distal perfusion in tact, warm extremities, cap refill ? 2 seconds. Hem/Lymph/Imm: No cervical LAD, no goiter, no conjunctival pallor Psych: normal mood and affect. behavior is normal Triage and nurse notes reviewed.[] Course Vital Signs Vital signs: Vital Signs Temperature 36.9 C 08/10/19 09:43 Pulse 74 08/10/19 09:43 Respiratory Rate 18 08/10/19 09:43 Blood Pressure 154/104 H 08/10/19 09:43 Pulse Oximetry 98 08/10/19 09:43 Temperature 36.9 C 08/10/19 09:43 Temperature Source Skin 08/10/19 09:43 Pulse 74 08/10/19 09:43 Respiratory Rate 18 08/10/19 09:43 Respiratory Effort Non-Labored 08/10/19 09:47 Blood Pressure 154/104 H 08/10/19 09:43 Blood Pressure Position Sitting 08/10/19 09:43 Pulse Oximetry 98 08/10/19 09:43 Oxygen Delivery Method Room Air 08/10/19 09:43 Oxygen Flow Rate 0 08/10/19 09:43 Pain Level 0 08/10/19 09:43 Comment 08/10/19 09:43
== END 2019-08-10 10:20 | disposition home or self-care (01) ==
PROVIDERS: Emergency Provider Emergency Medicine; PCP Nurse Practitioner Family
DX: H10.33 Unspecified acute conjunctivitis, bilateral (principal)
CPT/HCPCS: 99282

== ENCOUNTER 2019-10-18 21:49 | Emergency (ER) | payer MEDICAID, SELFPAY ==
--- NOTE | 2019-10-18 21:45 | DI.CT_ITS ---
EXAM: CT THORAX CTA CLINICAL HISTORY: TEARING SENSATION IN CHEST TO BACK TECHNIQUE: Post IV contrast. COMPARISON: CT CHEST/ABD/PEL W from 01/09/2019 FINDINGS: The pulmonary arteries and aorta are well opacified with IV contrast. There is no evidence of pulmona ry emboli or aortic dissection. No pleural or pericardial effusions or infiltrates are seen. Mild cor onary artery calcifications are seen. The ascending aorta measures 3.7 cm, mildly dilated. There is m ild paraseptal emphysema at the right lung apex. There is a small hiatal hernia and question of dista l esophageal thickening. The liver shows fatty infiltration. Gallbladder is not abnormally distended. The spleen is normal in size. The adrenals are unremarkable. A small cyst is noted at the upper pole of the left kidney. The visualized portions of the pancreas appear normal. The spine is unremarkable . IMPRESSION: No evidence of pulmonary emboli or other acute abnormality.
[2019-10-18 21:51] VITALS: BP 146/88; PULSE 95; RESP 16; TEMP 36.4; O2SAT 100
--- NOTE | 2019-10-18 21:58 | ED.GENADUL_ITS ---
Discharge Plan Disposition Patient Disposition: HOME Condition: Good Discharge Details Chief Complaint: Chest Pain Clinical Impression: Chest pain, Alcohol intoxication, Esophagitis, Aneurysm of ascending aorta Primary Care Provider: Jerrica Gomes ED Provider: Alejandro Thomas Home Meds and New Rx's Prescriptions: New pantoprazole [Protonix] 40 mg tablet,delayed release (DR/EC) 40 mg PO DAILY Qty: 90 RF: 0 sucralfate [Carafate] 1 gram tablet 1 gm PO BID Qty: 60 RF: 0 No Action ibuprofen 200 mg Tablet 400 mg PO PRN PRNRF: 0 meclizine 25 mg tablet 25 mg PO TID Qty: 14 RF: 0 polymyxin B sulf-trimethoprim [Polytrim] 10,000 unit- 1 mg/mL drops 1 drp OP Q3H Qty: 10 RF: 0 Discharge Instructions Instructions: Chest Pain (ED), Esophagitis (ED) Additional Instructions: At this time it does not look like your heart is the cause of your symptoms at all. I feel that you have mild esophagitis which is causing your symptoms. This is likely from your alcohol use. Please slowly cut down on alcohol, and take the medication I prescribed to help with this. Avoid any spicy foods. An incidental finding was noted today, you have a 3.7 cm aortic arch aneurysm. While this is certainly not normal, it is not in the concerning range. You need to have this followed closely in the future. This appears to have no change since your previous CAT scan earlier this year. It appears to be stable. If you notice any worsening of your symptoms, or any new symptoms such as vomiting, diarrhea, fever, chills, shortness of breath, chest pain, numbness, weakness, or fainting , please return immediately to the emergency department for reevaluation. Please follow up with your primary care provider as soon as possible for reassessment and reevaluation. As always, it was a pleasure participating in your medical care today. Referrals: Jerrica Gomes [Primary Care Provider] - Medical Decision Making Pleasant 44-year-old male with a past medical history of tobacco and alcohol abuse, presents today for evaluation of chest pain that started at 9 AM yesterday, radiates straight to his back, unrelated to exertion. He has had notable stressors in his life emotionally which she feels may be leading to this. He denies history of cardiac disease but also never follows up with a primary care provider. Presents today by EMS. Vital signs demonstrated notable hypertension upon EMS evaluation, nitroglycerin was given, no change in his chest pain but did improve his blood pressures to 146/88. He does have mild reproducible chest pain of left anterior chest wall. He is mild to moderately intoxicated at this time and does admit to 6 drinks of beer today. Pulses are equal, lung sounds demonstrate coarse breath sounds throughout, bedside ultrasound shows no evidence of focal hypokinesis, no pericardial effusion. Differential is broad but includes musculoskeletal chest pain, less likely ACS, with the pain radiating straight to his back dissection is on the differential but also less likely. Will further evaluate with radiographic imaging, laboratory and cardiac work-up. 12:24 AM Patient's laboratory work-up is returned notably unremarkable. Potassium is slightly low at 3.1, this was repleted here in the ED. This was also discussed with the patient and his sister. The remainder of his laboratory work-up was otherwise unremarkable. Calcium slightly low at 7.3, troponin normal, EKG unremarkable. Alcohol 385. With his EKG and troponin unremarkable, and with the patient stating that his cardiac symptoms have been going on since yesterday, and with no change in symptoms with nitroglycerin I feel his signs and symptoms are notably inconsistent with ACS. No indication for repeat troponin or EKG at this time. After GI cocktail and Protonix patient is feeling better. CT scan has come back and shows no evidence of dissection per virtual radiology but there is a minor aneurysmal dilatation of the ascending aorta at 3.7 cm at maximal diameter, however this is stable and unchanged from prior CT scan on 01/09/2019. There is also evidence of minor distal esophageal thickening and a small hiatal hernia suggestive of esophagitis. This would correlate well with the patient's symptomatology. The patient's sister is at bedside, we did get the patient up and he ambulated around the department well without any assistance. He appears notably stable at this time, this time I feel the patient is appropriate for discharge home with close follow-up with PCP. Signs and symptoms are clinically consistent with esophagitis. Inconsistent with ACS, dissection, acute life-threatening aortic aneurysm greater than 5 cm, or other abnormality. Patient will be discharged home to the care of his sister. Discussed red flags which to return. I have extensively reviewed the treatment plan and discharge instructions with the patient and their family. I have addressed all patient concerns at this time. The patient and family was made aware of what symptoms to monitor for that would warrant a return to the emergency department. Discussed the plan with the patient and family, they demonstrate verbal understanding and agreement with our assessment and plan at this time. EKG 21: 58 Rate 91, intervals normal, sinus rhythm, no significant ST elevations or depressions, there is subtle less than 1 mm elevation in V3, inconsistent with STEMI though. No reciprocal depressions. No evidence of STEMI. FINDINGS: Pulmonary arteries: Pulmonary arteries are well opacified. No embolism. Aorta: Thoracic aorta without dissection. Ascending aorta mildly dilated at 3.7 cm. This is stable since a previous study 01/09/2019. Lungs: Emphysematous lung changes. Multiple subpleural blebs in the right upper lobe. No suspicious nodules. No acute infiltrates. Pleural space: No pleural effusion. No pneumothorax. Heart: Unremarkable. No cardiomegaly. No pericardial effusion. Mediastinum: Minor esophageal thickening distally. Cannot exclude esophagitis. There is a small hiatal hernia. Lymph nodes: Unremarkable. No enlarged lymph nodes. Bones/joints: Degenerative thoracic spine. No acute fracture. Soft tissues: Fatty liver change. IMPRESSION: 1. No thoracic dissection. 2. Minor aneurysmal dilatation of the ascending aorta is stable since 01/09/2019. 3.7 cm maximal diameter. 3. No pulmonary arterial embolism. 4. Emphysematous lung disease. 5. No pneumothorax or pleural effusion. 6. Minor distal esophageal thickening and small hiatal hernia. Cannot exclude esophagitis. 7. Fatty liver change. 8. Degenerative thoracic spine disease. Thank you for allowing us to participate in the care of your patient. Dictated and Authenticated by: Javan Maldonado MD 10/18/2019 11:21 PM Eastern Time ([place] & [place]) HPI General Date/Time Provider Initiated Documentation: 10/18/19 21:58 . HPI Narrative: 44-year-old male with no past medical history secondary to a lack of evaluation by any medical providers, who does smoke, drink, presents today for evaluation of chest pain. Patient developed chest pain starting at 9 AM yesterday, he has been undergoing some significant relationship issues. Today he has been drinking. He initially described as a chest pressure-like sensation, but eventually transitioned into pain that radiated through his chest into his back. Patient denies any history of cardiac disease or family history of cardiac disease. He does smoke and drink regularly. He denies any cough, hemoptysis, vomiting or diarrhea. He denies any significant arm pain neck or shoulder pain. He has been drinking today. No other complaints at this time. No other modifying factors. No history of PE dissection or aneurysm. Related Data Home Medications Medication Instructions Recorded Confirmed ibuprofen 400 mg PO PRN PRN 01/09/19 04/10/19 meclizine 25 mg PO TID #14 tab 04/10/19 polymyxin B sulf-trimethoprim 1 drp OP Q3H #10 ml 08/10/19 [Polytrim] pantoprazole [Protonix] 40 mg PO DAILY #90 tab 10/18/19 sucralfate [Carafate] 1 gm PO BID #60 tab 10/18/19 Previous Rx's Medication Instructions Recorded meclizine 25 mg PO TID #14 tab 04/10/19 polymyxin B sulf-trimethoprim 1 drp OP Q3H #10 ml 08/10/19 [Polytrim] pantoprazole [Protonix] 40 mg PO DAILY #90 tab 10/18/19 sucralfate [Carafate] 1 gm PO BID #60 tab 10/18/19 Allergies Allergy/AdvReac Type Severity Reaction Status Date / Time No Known Allergies Allergy Unverified 01/09/19 12:12 General SARAH: 4 Review of Systems All systems reviewed & are unremarkable except as noted in HPI and below PFSH Social History Smoking/Tobacco Use Status: Current every day Tobacco Type: cigarettes Alcohol Intake: current Alcohol Intake frequency: 3 or more drinks per day Alcohol type: hard liquor Drug use: Never Substance use type: does not use Do you feel safe at home: Yes Do you feel safe in your relationship?: Yes Exam Narrative Exam Narrative: 1.Const: Well-nourished, Well-developed, appearing stated age 2.Eyes: PERRL, no conjunctival injection, and symmetrical lids. 3.ENT: Atraumatic external nose and ears. Moist MM. Neck: Symmetric, trachea midline, No thyromegaly. 4.CVS: +S1/S2, No murmurs or gallops. Peripheral pulses 2+ and equal in all extremities. Brisk capillary refill in all extremities. Radial pulses +2 bilaterally. Reproducible chest pain over the left anterior chest wall. 5.RESP: Unlabored respiratory effort. Coarse breath sounds throughout mild wheezes throughout, minimal crackles, no rhonchi. 6.GI: Soft, Nontender/Nondistended, No hepatosplenomegaly. No guarding or rebound. 7.MSK: Normocephalic/Atraumatic, Extremities w/o deformity or ttp No cyanosis or clubbing, Normal movement of all extremities 8.Skin: Warm, Dry. No rashes or lesions. 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 Sensation grossly intact, no focal neurologic deficits. 10.Psych: (AAO) x3. Appropriate mood and affect, however mildly intoxicated.
--- NOTE | 2019-10-18 22:00 | DI.RAD_ITS ---
EXAM: XR PORTABLE CHEST AP CLINICAL HISTORY: central chest pain. TECHNIQUE: 2D digital imaging was performed. COMPARISON: No exams were available for comparison FINDINGS: LUNGS: Clear. No pleural abnormality seen. HEART: Normal. MEDIASTINUM: Normal. OTHER FINDINGS: None. IMPRESSION: No acute pulmonary findings. DATA REPOSITORY: RADIATION DOSE DELIVERED:
[2019-10-18 22:10] LABS: Abs Immature Grans 0.02 k/cumm (0.0-0.09); Absolute Basophil Count 0.05 k/cumm (0.0-0.2); Absolute Eosinophil Count 0.07 k/cumm (0.0-0.7); Absolute Lymphocyte Count 3.33 k/cumm (1.2-3.4); Absolute Monocyte Count 0.61 k/cumm (0.11-0.7); Absolute Neutrophil Count 3.03 k/cumm (1.2-6.7); Basophils % 0.7; HCT 45.5 % (40.0-50.0); HGB 15.9 g/dL (13.5-17.5); Immature Grans % 0.3 %; Lymphocytes % 46.8; Mean Corp. HGB Concentration 34.9 g/dL (32.0-36.0); Mean Corpuscular Hemoglobin 34.9 pg (27.0-33.0); Mean Corpuscular Volume 99.8 fL (80-95); Mean Platelet Volume 9.5 fL (8.0-11.0); Monocytes % 8.6; Neutrophils % 42.6; Platelet Count 240 x1000/uL (130-400); RBC 4.56 m/cumm (4.50-6.00); RBC Distribution Width 12.7 % (11.8-14.1); White Blood Cell Count 7.11 k/cumm (4.4-10.8)
[2019-10-18 22:17] VITALS: RESP 1; RESP 22; O2SAT 99
[2019-10-18] MEDS: Albuterol/Ipratropium 3 ML UPD VIAL 6 ML UPD (22:17)
[2019-10-18] MEDS: Normal Saline 1,000 ML 1000 ML IV (22:19)
[2019-10-18 22:21] LABS: ETHANOL BLOOD 385.7 mg/dL (<3)
[2019-10-18 22:23] LABS: ALT 43 U/L (16-63); AST 47 U/L (15-37); Albumin 3.3 g/dL (3.4-5.0); Alkaline Phosphatase 48 U/L (46-116); Anion Gap 10.4 mmol/L (3-11); BUN 6 mg/dL (7-18); Bilirubin, Total 0.1 mg/dL (0.2-1.0); CO2 25.6 mmol/L (21.0-32.0); CREATININE 0.69 mg/dL (0.70-1.30); Calcium 7.3 mg/dL (8.5-10.1); Chloride 108 mmol/L (98-107); Glucose 93 mg/dL (74-106); Potassium 3.1 mmol/L (3.5-5.1); Sodium 144 mmol/L (136-145); Total Protein 6.7 g/dL (6.4-8.2)
[2019-10-18 22:24] LABS: Troponin I < 0.05 ng/Ml (<0.06)
[2019-10-18] MEDS: Omnipaque 350 MG/ML 100 ML BTL IJ (22:39)
[2019-10-18 22:42] LABS: INR 1.1 (0.9-1.1); PTT Activated 27.3 sec (21.0-31.4); Prothrombin Time 11.1 sec (9.3-11.0)
--- NOTE | 2019-10-18 23:01 | DI.VRAD_ITS ---
PROCEDURE INFORMATION: Exam: XR Chest, 1 View Exam date and time: 10/18/2019 10:13 PM Age: 44 years old Clinical indication: Other: Central chest pain TECHNIQUE: Imaging protocol: XR of the chest Views: 1 view. COMPARISON: CR XR CHEST 2V PA LATERAL 04/10/2019 5:56 AM FINDINGS: Lungs: Unremarkable. No consolidation. Pleural space: Unremarkable. No pleural effusion. No pneumothorax. Heart/Mediastinum: Unremarkable. No cardiomegaly. Bones/joints: Unremarkable. IMPRESSION: 1. No acute findings. 2. Stable exam since 04/10/2019. Dictated and Authenticated by: Javan Maldonado MD. Ordering:IFEANYI Allen MD
[2019-10-18] MEDS: POTASSIUM CHLORIDE 20 MEQ/100 ML BAG 50 MEQ IVPB (23:03)
[2019-10-18 23:09] VITALS: BP 121/75; PULSE 75; RESP 18; O2SAT 97
--- NOTE | 2019-10-18 23:21 | DI.VRAD_ITS ---
PROCEDURE INFORMATION: Exam: CT Angiography Chest With Contrast Exam date and time: 10/18/2019 10:45 PM Age: 44 years old Clinical indication: Other: Tearing sensation in chest to back TECHNIQUE: Imaging protocol: Computed tomographic angiography of the chest with intravenous contrast. 3D rendering: MIP and/or 3D reconstructed images were created by the technologist. Radiation optimization: All CT scans at this facility use at least one of these dose optimization techniques: automated exposure control; mA and/or kV adjustment per patient size (includes targeted exams where dose is matched to clinical indication); or iterative reconstruction. Contrast material: OMNIPAQUE 350; Contrast volume: 100 ml; Contrast route: IV; COMPARISON: CT CHEST/ABD/PEL W 01/09/2019 12:54 PM FINDINGS: Pulmonary arteries: Pulmonary arteries are well opacified. No embolism. Aorta: Thoracic aorta without dissection. Ascending aorta mildly dilated at 3.7 cm. This is stable since a previous study 01/09/2019. Lungs: Emphysematous lung changes. Multiple subpleural blebs in the right upper lobe. No suspicious nodules. No acute infiltrates. Pleural space: No pleural effusion. No pneumothorax. Heart: Unremarkable. No cardiomegaly. No pericardial effusion. Mediastinum: Minor esophageal thickening distally. Cannot exclude esophagitis. There is a small hiatal hernia. Lymph nodes: Unremarkable. No enlarged lymph nodes. Bones/joints: Degenerative thoracic spine. No acute fracture. Soft tissues: Fatty liver change. IMPRESSION: 1. No thoracic dissection. 2. Minor aneurysmal dilatation of the ascending aorta is stable since 01/09/2019. 3.7 cm maximal diameter. 3. No pulmonary arterial embolism. 4. Emphysematous lung disease. 5. No pneumothorax or pleural effusion. 6. Minor distal esophageal thickening and small hiatal hernia. Cannot exclude esophagitis. 7. Fatty liver change. 8. Degenerative thoracic spine disease. Dictated and Authenticated by: Javan Maldonado MD. Ordering:IFEANYI Allen MD
[2019-10-18] MEDS: Pantoprazole 40 MG VIAL IVP (23:48)
[2019-10-19 00:28] VITALS: BP 134/67; PULSE 78; RESP 16; TEMP 36.6; O2SAT 97
== END 2019-10-19 00:30 | disposition home or self-care (01) ==
PROVIDERS: Emergency Provider Student in an Organized Health Care Education/Training Program; PCP Nurse Practitioner Family
DX: R07.89 Other chest pain (principal); F10.129 Alcohol abuse with intoxication, unspecified; K20.9 Esophagitis, unspecified; I71.2 Thoracic aortic aneurysm, without rupture; E87.6 Hypokalemia
CPT/HCPCS: 71275; 80053; 93005; 94640; 96361; 96365; 96366; 96375; 99285; 71045; 80320; 84484; 85025; 85610; 85730; 93010; J3480; J3490; J7620

== ENCOUNTER 2019-12-16 00:22 | Outpatient (CLI) | payer MEDICAID, SELFPAY ==
--- NOTE | 2019-12-16 08:00 | ETT_ITS ---
APPROVED REPORT Exam: Exercise Treadmill Patient Location: Out-Patient Room/Bed: Stress Nurse: Lisandra Stroud RN BMI: 28.24 Baseline Rhythm: Sinus Rhythm Indications: Chest pain. Alcohol use disorder. Medical History Medical History: Smoking, Angina, GERD Allergies: No known drug allergies Cardiac Risk Factors: Smoking Pretest Chest Pain Characteristics: Non-exertional Chest pain Exercise History: Physically active Lung Sounds: Clear to auscultation Heart Sounds: Regular Stress Test Details Test: Exercise stress testing was performed using a Toño protocol. Rest Stress HR Resting HR Supine: 85 bpm Max Heart Rate (APMHR): 177 bpm Resting HR Standin bpm Target HR (85% APMHR): 150 bpm Max HR Achieved: 154 bpm % of APMHR: 87 Recovery HR: 95 bpm HR response to stress: Normal HR response to stress BP Resting BP Supine: 140/88 mmHg Resting BP Standin/82 mmHg Max BP: 154/78 mmHg Recovery BP: 144/76 mmHg BP response to stress: Normal blood pressure response to stress. ECG Resting ECG: Sinus Rhythm Stress ECG: Sinus Tachycardia ST Change: No significant ST segment changes. Arrhythmia: None Recovery ECG: Sinus Rhythm Recovery ST Change: No significant ST segment changes. Recovery Arrhythmia: None Clinical Reason for Termination: Fatigue Stress Symptoms: General Fatigue, Dyspnea Exercise duration: 06 min00 sec Highest Stage Reached: Stage 2: 2.5 mph at 12% grade. Exercise capacity: 7.05 METs Functional Capacity: Moderately diminished capacity Stress ECG Conclusion 1. The patient exercised for 6 minutes (7 METS). Rate-pressure product was 23,000. 2. The patient had no symptoms suggestive of ischemia. 3. There was no evidence of ischemia on the ECG portion of the exam at this level of stress. 4. The Tong Score (5) estimates an annual cardiovascular mortality of 1% and a five year survival of 94%. Using the Tong Score there is a low probability of any angiographic coronary disease. Stress Test Summary STAGE Time (mins) Speed (mph) Grade (%) HR BP SYMPTOMS METS Supine 85 140/88 Standing 103 144/82 1 3 1.7 10 133 150/88 4.6 1 min recovery 143 154/78 3 min recovery 110 146/80 6 min recovery 95 144/76
== END 2019-12-16 00:42 ==
PROVIDERS: PCP Nurse Practitioner Family; Visit Provider Family Medicine
DX: R07.89 Other chest pain (principal); F10.99 Alcohol use, unspecified with unspecified alcohol-induced disorder; K21.9 Gastro-esophageal reflux disease without esophagitis; F17.210 Nicotine dependence, cigarettes, uncomplicated
CPT/HCPCS: 93017

== ENCOUNTER 2020-01-29 19:13 | Outpatient (REF) | payer MEDICAID, SELFPAY ==
[2020-01-29 16:09] LABS: ALT 175 U/L (16-63); AST 274 U/L (15-37); Albumin 4.1 g/dL (3.4-5.0); Alkaline Phosphatase 76 U/L (46-116); Anion Gap 16.7 mmol/L (3-11); BUN 6 mg/dL (7-18); Bilirubin, Total 0.6 mg/dL (0.2-1.0); CO2 21.3 mmol/L (21.0-32.0); Calcium 9.3 mg/dL (8.5-10.1); Chloride 103 mmol/L (98-107); Glucose 87 mg/dL (74-106); Magnesium 1.9 mg/dL (1.8-2.4); NT-proBNP 34 pg/mL (<300); Potassium 3.6 mmol/L (3.5-5.1); Sodium 141 mmol/L (136-145); TSH (W/Ref FT4) 1.59 uIU/mL (0.36-3.74)
[2020-01-29 16:24] LABS: CREATININE 0.72 mg/dL (0.70-1.30)
== END 2020-01-29 19:33 ==
LOC: NCHCN 19:13
PROVIDERS: PCP Nurse Practitioner Family; Visit Provider Nurse Practitioner Family
DX: R00.2 Palpitations (principal)
CPT/HCPCS: 80053; 83735; 83880; 84443

== ENCOUNTER 2020-02-17 03:40 | Outpatient (CLI) | payer MEDICAID, SELFPAY | END 2020-02-17 04:00 | PROVIDERS: PCP Nurse Practitioner Family; Visit Provider Nurse Practitioner Family | DX: R00.2 Palpitations (principal) | CPT/HCPCS: 93225 ==

== ENCOUNTER 2020-02-18 02:13 | Outpatient (CLI) | payer MEDICAID, SELFPAY ==
[2020-02-18 14:03] LABS: HCT 47.1 % (40.0-50.0); HGB 16.4 g/dL (13.5-17.5); Mean Corp. HGB Concentration 34.8 g/dL (32.0-36.0); Mean Corpuscular Hemoglobin 34.2 pg (27.0-33.0); Mean Corpuscular Volume 98.1 fL (80-95); Mean Platelet Volume 9.8 fL (8.0-11.0); Platelet Count 169 x1000/uL (130-400); RBC Distribution Width 12.9 % (11.8-14.1)
[2020-02-18 14:11] LABS: Ammonia 28 umol/L (11-32)
[2020-02-18 14:39] LABS: Prothrombin Time 10.1 sec (9.3-11.0)
[2020-02-18 14:46] LABS: ALT 170 U/L (16-63); AST 240 U/L (15-37)
[2020-02-19 11:17] LABS: Hepatitis B Surface Ag Negative (Negative)
[2020-02-19 11:20] LABS: HBs Antibody, Quant <3.1 mIU/mL (See Note); Hepatitis B Surface Ab Negative (See Note)
[2020-02-19 12:02] LABS: Hepatitis C Ab w Rflx HCV PCR Negative (Negative)
== END 2020-02-18 02:33 ==
PROVIDERS: PCP Nurse Practitioner Family; Visit Provider Nurse Practitioner Family
DX: R74.8 Abnormal levels of other serum enzymes (principal); R00.2 Palpitations; Z11.59 Encounter for screening for other viral diseases
CPT/HCPCS: 36415; 85027; 86706; 86803; 87340; 82140; 84450; 84460; 85610

== ENCOUNTER 2020-02-19 14:27 | Outpatient (CLI) | payer MEDICAID, SELFPAY ==
--- NOTE | 2020-02-20 08:56 | W.HOLTRPT ---
Date of service: 02/20/20 Time of Service: 08:56 Holter Monitor Report Holter Monitor Note: There is a 48-hour Holter monitor ordered for indication of palpitations. ?The patient was in normal sinus rhythm for majority of the recording with a mean heart rate of 93 bpm. ?There were no episodes of SVT and 2 single premature atrial contractions. ?There were no episodes of ventricular tachycardia and 5 single ventricular ectopic beats. ?There are no episodes of atrial fibrillation no pauses greater than 3 seconds no evidence of high degree heart block. ?Patient triggered events were associated with sinus rhythm and sinus tachycardia.
== END 2020-02-19 14:47 ==
PROVIDERS: PCP Nurse Practitioner Family; Visit Provider Nurse Practitioner Family
DX: R00.2 Palpitations (principal); I49.1 Atrial premature depolarization; I49.3 Ventricular premature depolarization
CPT/HCPCS: 93226

== ENCOUNTER 2020-02-20 09:59 | Emergency (ER) | payer MEDICAID, SELFPAY ==
[2020-02-20] VITALS (35 sets, daily range): BP systolic 104–135; BP diastolic 66–95; PULSE 62–89; RESP 12–20; TEMP 36.5–37.1; O2SAT 92–99
--- NOTE | 2020-02-20 10:24 | ED.GENADUL_ITS ---
Discharge Plan Disposition Patient Disposition: AGAINST MEDICAL ADVICE Discharge Details Chief Complaint: GenMedical Clinical Impression: Syncope, Dizziness, Alcoholism Primary Care Provider: Jerrica Gomes ED Provider: Hamilton Tavera Home Meds and New Rx's Prescriptions: New thiamine HCl (vitamin B1) 100 mg tablet 100 mg PO DAILY Qty: 60 RF: 0 No Action ibuprofen 200 mg Tablet 400 mg PO PRN PRNRF: 0 meclizine 25 mg tablet 25 mg PO TID Qty: 14 RF: 0 pantoprazole [Protonix] 40 mg tablet,delayed release (DR/EC) 40 mg PO DAILY Qty: 90 RF: 0 sucralfate [Carafate] 1 gram tablet 1 gm PO BID Qty: 60 RF: 0 multivitamin [Multiple Vitamins] Tablet 1 tab PO DAILY Qty: 0 RF: 0 thiamine mononitrate (vit B1) [Vitamin B-1 (mononitrate)] 100 mg Tablet 100 mg PO DAILY Qty: 30 RF: 0 Discharge Instructions Instructions: Syncope (ED), Dizziness (ED), Against Medical Advice (ED), Alcohol Dependence (ED) Additional Instructions: It was recommended that you stay in the hospital today for further treatment and diagnostics. You are refusing recommended plan and understand that you may have life-threatening or lifestyle modifying disease that would go undiagnosed and potentially worsen. Please follow-up with [facility]. Please contact your primary care physician to arrange follow-up. Call today to schedule follow-up. Return to the ER for any worsening or new concerning symptoms. Referrals: [facility] [Outside] Jerrica Gomes [Primary Care Provider] - Discharge Data Discharge Date/Time-TO BE ENTERED AT DEPARTURE: 02/20/20 14:14 Medical Decision Making 1034??44-year-old male with history of alcoholism here after syncopal episode that occurred at rest. Frequent dizzy spells over the past 5 months. I reviewed recent outpatient cardiac monitoring report: Holter Monitor Note: There is a 48-hour Holter monitor ordered for indication of palpitations. ?The patient was in normal sinus rhythm for majority of the recording with a mean heart rate of 93 bpm. ?There were no episodes of SVT and 2 single premature atrial contractions. ?There were no episodes of ventricular tachycardia and 5 single ventricular ectopic beats. ?There are no episodes of atrial fibrillation no pauses greater than 3 seconds no evidence of high degree heart block. ?Patient triggered events were associated with sinus rhythm and sinus tachycardia. Unclear etiology for syncope at this point. Patient consumes excessive amounts of alcohol. Will give thiamine 100 mg IV. 1113 --initial labs reviewed and patient has significant anion gap acidosis, hypokalemia, elevated LFTs. I will give potassium 20 mEq IV. Patient receiving IV fluid bolus. Suspect anion gap is secondary to alcoholic ketosis. 1125 --I spoke with the patient about his lab results and plan for admission. Patient declines admission and provides informed refusal. I will obtain echocardiogram now. 1313 -- CT chest interpreted by radiology: IMPRESSION: No evidence of pulmonary embolism, thoracic aortic dissection or aneurysm. These findings were discussed with the emergency department on the date of the examination. 1400??I spoke with Dr. Vela who will be reading echocardiogram. Official interpretation still pending. Repeat blood work shows persistent anion gap acidosis despite IV fluids. I reviewed results with the patient and informed him of pending echocardiogram. I again reviewed with him my plan to admit and reasons for this. Patient understands my plan and declines plan and wishes to leave against medical advise. I reiterated my concerns to the patient and explained the risks of leaving prior to completion of workup and treatment. I specifically emphasized the possibility of life-threatening or lifestyle modifying disease that would not be appropriately treated if they leave. Patient verbalized understanding of my concerns and the potential for life threatening or lifestyle modifying disease. Patient has capacity to make informed decision. I again explained my concerns and urged that he stay for treatment as outlined. Patient continued to refuse. I then discussed potential less ideal alternatives to diagnostic/treatment plan as outlines and patient refused. I recommended that he follow-up with primary care physician SAHIL or return to the Emergency Department at any time for further treatment. ECG Data Attestation: I personally reviewed and interpreted this ECG (s) as follows: (Sinus rhythm 89 bpm, normal axis, no STEMI, no delta wave, no signs of Brugada, no signs of hypertrophic cardiomyopathy.) HPI General Mode of arrival: ambulatory . Date/Time Provider Initiated Documentation: 02/20/20 10:20 . Limitations to Documentation: no limitations . Information obtained by: patient . HPI Narrative: 44-year-old male with history of alcoholism presents with chief complaint of dizziness. Patient notes he had a syncopal episode while seated at rest and on the phone with his mother just prior to arrival today. Symptoms were severe. Episode lasted seconds and resolved. Denies associated chest pain. He has had some associated shortness of breath. He notes he has been having intermittent dizziness, daily for the past 5 months. He has been seen by his PCP for this and recently had Holter cardiac monitoring. He is unsure of results of that monitoring. Patient does admit to heavy alcohol use daily. He notes that he is dependent on alcohol and should he miss a drink becomes tremulous. His last earlier this morning. Related Data Home Medications Medication Instructions Recorded Confirmed ibuprofen 400 mg PO PRN PRN 01/09/19 02/20/20 meclizine 25 mg PO TID #14 tab 04/10/19 02/20/20 pantoprazole [Protonix] 40 mg PO DAILY #90 tab 10/18/19 02/20/20 sucralfate [Carafate] 1 gm PO BID #60 tab 10/18/19 02/20/20 thiamine HCl (vitamin B1) 100 mg PO DAILY #60 tab 02/20/20 02/20/20 multivitamin [Multiple Vitamins] 1 tab PO DAILY #0 tab 02/22/20 thiamine mononitrate (vit B1) 100 mg PO DAILY #30 tab 02/22/20 [Vitamin B-1 (mononitrate)] Previous Rx's Medication Instructions Recorded meclizine 25 mg PO TID #14 tab 04/10/19 pantoprazole [Protonix] 40 mg PO DAILY #90 tab 10/18/19 sucralfate [Carafate] 1 gm PO BID #60 tab 10/18/19 thiamine HCl (vitamin B1) 100 mg PO DAILY #60 tab 02/20/20 multivitamin [Multiple Vitamins] 1 tab PO DAILY #0 tab 02/22/20 thiamine mononitrate (vit B1) 100 mg PO DAILY #30 tab 02/22/20 [Vitamin B-1 (mononitrate)] Allergies Allergy/AdvReac Type Severity Reaction Status Date / Time No Known Allergies Allergy Unverified 02/20/20 20:44 General Stated Complaint: SOB SARAH: 2 Review of Systems All systems reviewed & are unremarkable except as noted in HPI and below Constitutional Constitutional: Denies fever(s) Cardiovascular Cardiovascular: Reports as per HPI, Denies chest pain and Reports dyspnea Respiratory Respiratory: Denies cough and Reports dyspnea Gastrointestinal Gastrointestinal: Denies vomiting PFSH Medical History Alcohol use (Acute) Social History Smoking/Tobacco Use Status: Current every day Tobacco Type: cigarettes Alcohol Intake: current Alcohol Intake frequency: 3 or more drinks per day Alcohol type: hard liquor Drug use: Never Substance use type: does not use Do you feel safe at home: Yes Do you feel safe in your relationship?: Yes Exam Const General: cooperative and no acute distress HENMT Head: atraumatic Mouth: moist mucous membranes Eyes Conjunctivae: normal conjunctivae Sclera: normal sclerae EOM: EOM intact bilaterally Neck Neck: trachea midline and supple Resp Auscultation: clear to auscultation bilaterally, no rales, no rhonchi and no wheezes Cardio Jugular venous pressure: no JVD Rate: regular rate and not tachycardic Rhythm: regular rhythm GI Palpation: soft, not firm, no guarding, no masses, not rigid and nontender Skin General skin exam: no rashes or lesions noted Neuro General: patient alert, patient awake and tone normal Extrem General: no calf tenderness and no edema Psych Appearance: grossly normal Mental Status: mental status grossly normal Course Vital Signs Vital signs: Vital Signs Temperature 36.5 C 02/20/20 10:05 Pulse 85 02/20/20 10:05 Respiratory Rate 02/20/20 10:05 Blood Pressure 135/95 H 02/20/20 10:05 Pulse Oximetry 94 L 02/20/20 10:05 Temperature 36.5 C 02/20/20 10:05 Temperature Source Skin 02/20/20 10:05 Pulse 85 02/20/20 10:05 Respiratory Rate 02/20/20 10:05 Respiratory Effort Non-Labored 02/20/20 10:05 Blood Pressure 135/95 H 02/20/20 10:05 Blood Pressure Position Supine 02/20/20 10:05 Pulse Oximetry 94 L 02/20/20 10:05 Oxygen Delivery Method Room Air 02/20/20 10:05 Oxygen Flow Rate 0 02/20/20 10:05 Pain Level 6 02/20/20 10:05
[2020-02-20] MEDS: Lactated Ringers 1,000 ML 125 ML IV (10:33)
[2020-02-20 10:46] LABS: Abs Immature Grans 0.03 k/cumm (0.0-0.09); Absolute Basophil Count 0.04 k/cumm (0.0-0.2); Absolute Eosinophil Count 0.42 k/cumm (0.0-0.7); Absolute Lymphocyte Count 2.47 k/cumm (1.2-3.4); Absolute Monocyte Count 0.52 k/cumm (0.11-0.7); Absolute Neutrophil Count 3.92 k/cumm (1.2-6.7); Basophils % 0.5; Eosinophils % 5.7; HCT 43.7 % (40.0-50.0); HGB 15.1 g/dL (13.5-17.5); Immature Grans % 0.4 %; Lymphocytes % 33.4; Mean Corp. HGB Concentration 34.6 g/dL (32.0-36.0); Mean Corpuscular Hemoglobin 34.1 pg (27.0-33.0); Mean Corpuscular Volume 98.6 fL (80-95); Mean Platelet Volume 10.2 fL (8.0-11.0); Platelet Count 124 x1000/uL (130-400); RBC 4.43 m/cumm (4.50-6.00); RBC Distribution Width 12.7 % (11.8-14.1)
[2020-02-20] MEDS: THIAMINE 100 MG in Normal Saline 100 ML 200 MG IVPB (10:57)
[2020-02-20 11:02] LABS: ALT 149 U/L (16-63); AST 258 U/L (15-37); Albumin 4.1 g/dL (3.4-5.0); Alkaline Phosphatase 64 U/L (46-116); Anion Gap 20.8 mmol/L (3-11); BUN 8 mg/dL (7-18); Bilirubin, Total 0.8 mg/dL (0.2-1.0); CO2 21.2 mmol/L (21.0-32.0); CREATININE 0.71 mg/dL (0.70-1.30); Calcium 9.2 mg/dL (8.5-10.1); Chloride 97 mmol/L (98-107); Glucose 75 mg/dL (74-106); Magnesium 1.8 mg/dL (1.8-2.4); Potassium 3.2 mmol/L (3.5-5.1); Sodium 139 mmol/L (136-145); Total Protein 8.2 g/dL (6.4-8.2)
[2020-02-20 11:03] LABS: Troponin I < 0.05 ng/mL (<0.06)
[2020-02-20 11:10] LABS: TSH (W/Ref FT4) 1.17 uIU/mL (0.36-3.74)
--- NOTE | 2020-02-20 11:15 | DI.US_ITS ---
APPROVED REPORT EXAM: Comprehensive 2D, Doppler, and color-flow Echocardiogram Patient Location: ER [place] Machine Operator: Daria Vines RDCS (AE) Indications: Syncope Other Information Study Quality: Adequate Conclusion Left Ventricle : The left ventricle is normal size. The left ventricular systolic function is normal. The left ventricular ejection fraction is within the normal range. There is normal left ventricular wall thickness. There is normal LV segmental wall motion. The left ventricular diastolic function is normal. LVEF is 50%. Right Ventricle : The right ventricle is normal size. Atria : The left atrium size is normal. The right atrium size is normal. Valves: There are no hemodynamically significant valvular lesions. Great Vessels : IVC is normal in size and collapses >50% with inspiration. Please see remainder of study for further details. There is no prior study available for comparison. Wall motion Left Ventricle The left ventricle is normal size. The left ventricular systolic function is normal. The left ventric ular ejection fraction is within the normal range. There is normal left ventricular wall thickness. T here is normal LV segmental wall motion. The left ventricular diastolic function is normal. There is no ventricular septal defect visualized. LVEF is 50%. Right Ventricle The right ventricle is normal size. The right ventricular systolic function is normal. The RVSP is 16 .4mmHg. Atria The left atrium size is normal. The right atrium size is normal. Aortic Valve Aortic valve is trileaflet. There is no aortic valvular stenosis. No aortic regurgitation is present. Mitral Valve The mitral valve is normal in structure. No evidence of mitral valve stenosis. Trace mitral regurgita tion. Tricuspid Valve The tricuspid valve is normal in structure. There is no tricuspid valve stenosis. Trace tricuspid reg urgitation. Pulmonic Valve The pulmonary valve is normal in structure. There is no pulmonic valvular stenosis. Trace pulmonic re gurgitation. Great Vessels The aortic root is normal in size. The ascending aorta is normal in size. IVC is normal in size and c ollapses >50% with inspiration. Pericardium There is no pericardial effusion. There is no pleural effusion. 2D Dimensions IVSD d PLAX 0.88 cm M: 0.6-1.2 LV Vol A2C d MOD 69.8 mL LVPW d PLAX 0.89 cm M: 0.6 - 1.2 LV Vol A4C d MOD 103.5 mL LVID d PLAX 5.52 cm M: 4.2 - 5.8 LA vol/ BSA A2C s A-L 19.3 mL/m2 LVDs 3.95 cm M: 2.5 - 4.0 LA vol/ BSA A4C s A-L 37.2 mL/m2 Ao Root d 2.76 cm M: 3.1 - 3.7 LA Vol/ BSA Biplane s A-L 29.1 mL/m2 RA Area A4C 14.96 cm2 LA Area A4C s MOD 21.81 cm2 RA Vol/ BSA A4C s A-L 24.3 mL/m2 LA Area A2C s MOD 14.47 cm2 Ao Asc Diam d 3.48 cm M: 2.6 - 3.4 LV EF A4C MOD 48.7 % LV EF Teichholz 52.9 % LV EF A2C MOD 53.7 % LVEF (Ibarra's) 50.70 % M: 52 - 72 LV EF Biplane MOD 50.7 % LV Volume 68.39 mL M: 62 - 150 SV 44.17 mL LV Volume Index 39.08 mL/m2 M: 34 - 74 SV Index 25.17 mL/m2 LV Vol Biplane MOD 87.1 mL FS 27.50 % M-Mode TAPSE 1.57 cm (M/F) >1.7 LV Diastology MV E' medial 0.106 (>0.07 m/s) E/A Ratio 1.3 LV E/e MED 4.75 (<14) MV E Vmax 0.51 (0.4-1.3 m/s) MV E' lateral 0.139 (>0.1 m/s) MV A Vmax 0.40 (0.4-1.3 m/s) LV E/e LAT 3.60 (<14) MV E/A Ratio 1.23 MV E/E' medial 4.77 MV E/E' lateral 3.65 Aortic Valve LVOT Area 2.82 cm2 AoV Area Vmax 2.43 cm2 LVOT Vmax 0.93 m/s AoV Area/ BSA (Vmax) 1.39 cm2/m2 LVOT Mean Marcos. 0.55 m/s LINNETTE Mean Marcos. 2.05 cm2 LVOT Peak Grad 3.4 mmHg LINNETTE Mean Marcos. Index 1.17 cm2/m2 LVOT Mean Grad 1.5 mmHg LVOT VTI 0.196 m LVOT Diam s 1.85 cm AoV Vmax 1.07 m/s Velocity Ratio 0.86 AoV Mean Marcos. 0.76 m/s AoV Peak Grad 4.6 mmHg LVOT SV 55.22 mL AoV Mean Grad 2.5 mmHg AoV VTI 0.217 m AoV Area VTI 2.54 cm2 AoV Area/ BSA (VTI) 1.45 cm/m2 Mitral Valve MV DT 240 (160-240 msec) MV PHT 70 msec MV Area PHT 3.16 cm2 Pulmonary Valve PV Vmax 0.92 (0.5-1.5 m/s) RVOT Peak Gr. 1.57 mmHg PV Peak Grad 3.4 mmHg RVOT Mean Gr. 0.95 mmHg PV Mean Grad 1.7 mmHg RVOT VTI 0.125 m PV VTI 0.177 m RVOT Vmax 0.63 m/s Tricuspid Valve TR Peak Grad 13.4 mmHg TR Vmax 1.83 m/s RA Pressure 3.00 mmHg RVSP (TR) 16.4 mmHg
[2020-02-20] MEDS: POTASSIUM CHLORIDE 20 MEQ/100 ML BAG 50 MEQ IVPB (11:21)
[2020-02-20] MEDS: Lactated Ringers 1,000 ML 1000 ML IV (11:27)
[2020-02-20 11:29] LABS: D-Dimer 690 ng/mlFEU (<500)
--- NOTE | 2020-02-20 11:45 | DI.CT_ITS ---
EXAM: CT CHEST PE CTA CLINICAL HISTORY: syncope, elevated ddimer. TECHNIQUE: Imaging Protocol: Axial CT angiography was performed with multi-slice acquisition and mu lti-planar and/or 3D reconstructions. CONTRAST MATERIAL: Intravenous: Omnipaque 350 Contrast volume:100 mL COMPARISON: CT CT THORAX CTA from 10/18/2019 FINDINGS: Pulmonary Arteries: No evidence of filling defect to suggest pulmonary emboli. Tracheobronchial tree: Patent where visualized. Mediastinum and Patti: No dominant adenopathy or fluid collection. Pulmonary parenchyma: Mild dependent atelectasis. Paraseptal emphysema. No focal consolidating infilt rates. Pleura: No effusion or pneumothorax. Heart: The heart is not dilated. Moderate coronary artery calcification. No pericardial effusion or e vidence of right heart strain. Aorta: No evidence of a thoracic aortic aneurysm or dissection. Atherosclerosis. Upper abdomen: Fatty infiltration of the liver. Small hiatal hernia. Bones: Degenerative changes in the lumbar spine. IMPRESSION: No evidence of pulmonary embolism, thoracic aortic dissection or aneurysm. These findings were discussed with the emergency department on the date of the examination. RADIATION DOSE DELIVERED: Total DLP DATA REPOSITORY: All CT scans at this facility are submitted to the National Radiology Data Registry (NRDR) Dose Index Registry (DIR) with the [employer] (ACR). RADIATION OPTIMIZATION: All CT scans at this facility use at least one of these dose optimization te chniques: automated exposure control; mA and/or kV adjustment per patient size (includes targeted exa ms where dose is matched to clinical indication); or iterative reconstruction.
[2020-02-20] MEDS: Normal Saline 1,000 ML 1000 ML IV (12:10)
[2020-02-20] MEDS: Omnipaque 350 MG/ML 100 ML BTL IV (12:40)
[2020-02-20 13:54] LABS: Anion Gap 17.8 mmol/L (3-11); BUN 6 mg/dL (7-18); CO2 20.2 mmol/L (21.0-32.0); CREATININE 0.63 mg/dL (0.70-1.30); Calcium 8.3 mg/dL (8.5-10.1); Chloride 99 mmol/L (98-107); Glucose 66 mg/dL (74-106); Potassium 4.2 mmol/L (3.5-5.1); Sodium 137 mmol/L (136-145)
== END 2020-02-20 14:14 | disposition left against medical advice (07) ==
PROVIDERS: Emergency Provider Student in an Organized Health Care Education/Training Program; PCP Nurse Practitioner Family
DX: R55 Syncope and collapse (principal); F10.20 Alcohol dependence, uncomplicated; E87.2 Acidosis; E87.6 Hypokalemia; R74.0 Nonspecific elevation of levels of transaminase and lactic acid dehydrogenase [LDH]; R06.02 Shortness of breath; R42 Dizziness and giddiness; Z53.29 Procedure and treatment not carried out because of patient's decision for other reasons
CPT/HCPCS: 36415; 71275; 80048; 80053; 93005; 96361; 96365; 96366; 96367; 99285; 83735; 84443; 84484; 85025; 85379; 93010; 93306; 99284; J3480; J3490

== ENCOUNTER 2020-02-20 20:18 | Inpatient (IN) | payer MEDICAID, SELFPAY ==
[2020-02-20] VITALS (31 sets, daily range): BP systolic 112–156; BP diastolic 64–94; PULSE 89–111; RESP 16–27; TEMP 36.9–37; O2SAT 90–96
--- NOTE | 2020-02-20 20:26 | ED.GENADUL_ITS ---
Discharge Plan Disposition Patient Disposition: [facility] INPATIENT Condition: Poor Discharge Details Chief Complaint: ETOHWithdr Clinical Impression: Alcohol withdrawal, Pancreatitis, Electrolyte and fluid disorder Primary Care Provider: Jerrica Gomes ED Provider: Florencio Scott [place] [facility] and New Rx's Prescriptions: No Action ibuprofen 200 mg Tablet 400 mg PO PRN PRNRF: 0 meclizine 25 mg tablet 25 mg PO TID Qty: 14 RF: 0 pantoprazole [Protonix] 40 mg tablet,delayed release (DR/EC) 40 mg PO DAILY Qty: 90 RF: 0 sucralfate [Carafate] 1 gram tablet 1 gm PO BID Qty: 60 RF: 0 polymyxin B sulf-trimethoprim [Polytrim] 10,000 unit- 1 mg/mL drops 1 drp OP Q3H Qty: 10 RF: 0 thiamine HCl (vitamin B1) 100 mg tablet 100 mg PO DAILY Qty: 60 RF: 0 Medical Decision Making Patient returns with worsening alcohol withdrawal. IV established fluids started. Ativan ordered. Prior visit and studies reviewed. Repeat chemistries ordered. Patient placed on monitor. Seizure precautions in place. Will contact hospitalist once general idea of response to benzodiazepines established. 22:00 - Patient's CIWA a little better after 2 mg of Ativan. He was given another milligram of IV Ativan. Laboratory studies significant for evidence of pancreatitis with a lipase of 8000. Magnesium still low at 1.3 and potassium low at 3. Continues to have anion gap acidosis. Is likely related to alcohol ketoacidosis. Glucose is elevated to 325. He was normal earlier today. LR continues. IV replacement of magnesium and potassium ordered. Patient made n.p.o. except for ice chips. Case discussed with hospitalist. Patient to be admitted to ICU for further management of alcohol withdrawal and electrolyte abnormalities/pancreatitis. Medical Records Medical records reviewed: Yes I reviewed the patient's medical records. Lab Data Lab results reviewed: Yes I reviewed the patient's lab results. HPI General Mode of arrival: EMS . Date/Time Provider Initiated Documentation: 02/20/20 20:28 . Limitations to Documentation: no limitations . Information obtained by: patient, RN notes reviewed and old records reviewed . HPI Narrative: Patient returns to ED with worsening alcohol withdrawal. Patient seen here earlier today for syncope. He has had intermittent dizziness for some time. He had a normal stress test and normal Holter monitor earlier this year. He had a normal echo and CTA of chest today. He has not had alcohol in 3 days. Is trying to stop, but is also out of money. Normally drinks 1/2 gallon of liquor in 3 days. He has had no further syncope or trauma since leaving here AMA. He has had increased tremors, anxiety, nausea, generally feeling unwell. He is unsteady with his gait. He called EMS to be brought back here for admission for management of alcohol withdrawal. Related Data Home Medications Medication Instructions Recorded Confirmed ibuprofen 400 mg PO PRN PRN 01/09/19 02/20/20 meclizine 25 mg PO TID #14 tab 04/10/19 02/20/20 polymyxin B sulf-trimethoprim 1 drp OP Q3H #10 ml 08/10/19 02/20/20 [Polytrim] pantoprazole [Protonix] 40 mg PO DAILY #90 tab 10/18/19 02/20/20 sucralfate [Carafate] 1 gm PO BID #60 tab 10/18/19 02/20/20 thiamine HCl (vitamin B1) 100 mg PO DAILY #60 tab 02/20/20 02/20/20 Previous Rx's Medication Instructions Recorded meclizine 25 mg PO TID #14 tab 04/10/19 polymyxin B sulf-trimethoprim 1 drp OP Q3H #10 ml 08/10/19 [Polytrim] pantoprazole [Protonix] 40 mg PO DAILY #90 tab 10/18/19 sucralfate [Carafate] 1 gm PO BID #60 tab 10/18/19 thiamine HCl (vitamin B1) 100 mg PO DAILY #60 tab 02/20/20 Allergies Allergy/AdvReac Type Severity Reaction Status Date / Time No Known Allergies Allergy Unverified 02/20/20 20:44 General Stated Complaint: ETOHWithdr SARAH: 2 Review of Systems Narrative: 06/03 Review of Systems completed and is negative except as stated above in HPI (Systems reviewed: Const, Eyes, ENT, Resp, CV, GI, , MSK, Skin, Neuro) [facility] Medical History Alcoholism (Chronic) Surgical History No significant past surgical history (Acute) Social History Smoking/Tobacco Use Status: Current every day Tobacco Type: cigarettes Alcohol Intake: current Alcohol Intake frequency: 3 or more drinks per day Alcohol type: hard liquor Drug use: Never Substance use type: does not use Do you feel safe at home: Yes Do you feel safe in your relationship?: Yes Exam Narrative Exam Narrative: Vitals: Afebrile. Tachycardic and hypertensive. Normal room air saturation. Const: WDWN male with tremor and anxiety. HEENT: NC/AT. Normal facial exam. Eyes: Normal conjunctiva and sclera. Neck: Supple. Trachea midline. Lungs: Normal respiratory effort. Cor: Good radial pulses. GI: Soft. NT/ND. Neuro: A+O x 3. Normal speech, mentation. Cranial nerves II - XII grossly intact. No gross motor or sensory deficit. Significant tremor. Ext: No C/C/E. Skin: Warm and dry without rash. Course Vital Signs Vital signs: Vital Signs Temperature 98.6 F 02/20/20 20:18 Pulse 111 H 02/20/20 20:18 Respiratory Rate 22 02/20/20 20:18 Blood Pressure 156/94 H 02/20/20 20:18 Pulse Oximetry 96 02/20/20 20:18 Temperature 98.6 F 02/20/20 20:18 Temperature Source Skin 02/20/20 20:18 Pulse 111 H 02/20/20 20:18 Respiratory Rate 22 02/20/20 20:18 Blood Pressure 156/94 H 02/20/20 20:18 Blood Pressure Position Sitting 02/20/20 20:18 Pulse Oximetry 96 02/20/20 20:18 Oxygen Delivery Method Room Air 02/20/20 20:18 Oxygen Flow Rate 0 02/20/20 20:18 Pain Level 0 02/20/20 20:18 Critical Care Time Critical Care Time Critical Care Time: Yes Total Critical Care Time: 60 Attestation: Upon my evaluation, this patient had a high probability of imminent or life- threatening deterioration, which required my direct attention, intervention, and personal management. I have personally provided minutes of critical care time exclusive of time spent on separately billable procedures. Time includes review of laboratory data, radiology results, discussion with consultants, and monitoring for potential decompensation.
[2020-02-20] MEDS: LORazepam 2 MG/ML VIAL IVP (20:31)
[2020-02-20] MEDS: Normal Saline Flush 10 ML SYR IVP ×3 (20:32→23:20)
[2020-02-20] MEDS: Ondansetron 4 MG/2 ML VIAL IV (20:32)
[2020-02-20] MEDS: Lactated Ringers 1,000 ML 200 ML IV (20:33)
[2020-02-20 20:45] LABS: ETHANOL BLOOD 56.5 mg/dL (<3); Lipase 1011 U/L (73-393); Magnesium 1.3 mg/dL (1.8-2.4)
[2020-02-20 21:04] LABS: ALT 126 U/L (16-63); AST 182 U/L (15-37); Albumin 3.6 g/dL (3.4-5.0); Alkaline Phosphatase 60 U/L (46-116); Anion Gap 20.6 mmol/L (3-11); BUN 6 mg/dL (7-18); Bilirubin, Total 0.8 mg/dL (0.2-1.0); CO2 17.4 mmol/L (21.0-32.0); CREATININE 0.95 mg/dL (0.70-1.30); Chloride 97 mmol/L (98-107); Sodium 135 mmol/L (136-145); Total Protein 7.4 g/dL (6.4-8.2)
[2020-02-20 21:13] LABS: Glucose 325 mg/dL (74-106)
[2020-02-20] MEDS: LORazepam 2 MG/ML VIAL 1 MG IVP (21:50)
[2020-02-20] MEDS: POTASSIUM CHLORIDE 10 MEQ/100 ML BAG 100 MEQ IVPB (21:51)
[2020-02-20] MEDS: MAGNESIUM SULFATE 2 GM/50 ML BAG IVPB ×2 (21:51→23:56)
--- NOTE | 2020-02-20 22:34 | HPE_ITS ---
Date of service: 02/20/20 Time of Service: 22:34 Assessment and Plan Assessment and plan (1) Alcohol withdrawal: Status: Acute Assessment and plan: Admission to intensive care unit for thiamine and multivitamin supplementation along with benzodiazepines per CIWA scoring. I am also going to give him a loading dose of phenobarbital and put him on PRN dosing of phenobarbital based on high CIWA scores. The addition of phenobarbital is more easily titrated and will reach levels that we will more readily control his acute alcohol withdrawal symptoms. His electrolytes will be corrected and he will continue to receive IV fluids. We will recheck his labs in the morning along with an abdominal ultrasound to make sure there are no other causes for his pancreatitis and that he has no complications from his pancreatitis. Qualifiers: Complication of substance-induced condition: uncomplicated Qualified Code(s): F10.230 - Alcohol dependence with withdrawal, uncomplicated (2) Pancreatitis: Status: Chronic Assessment and plan: We will keep him n.p.o. for now hydrated with IV fl uids correct his electrolytes and check an ultrasound of his abdomen in the morning. Qualifiers: Chronicity: acute Pancreatitis type: alcohol induced Acute pancr eatitis complication: unspecified Qualified Code(s): K85.20 - Alcohol induced acute pancreatitis without necrosis or infection (3) Alcoholism: Status: Chronic Assessment and plan: Patient has expressed a desire to enter into an alcohol treatment program upon discharge from the hospital. We will ask case management to look into this for him. He may benefit from medications to suppress his urges for alcohol. (4) Hypomagnesemia: Status: Acute Assessment and plan: We will give him an additional 2 g bolus of magnesium tonight and recheck his magnesium level in the morning. (5) Hypokalemia: Status: Acute Assessment and plan: Patient is currently just starting his second dose of potassium bolus that was ordered in the emergency department. I will add potassium to his lactated Ringer's fluid and recheck his potassium level in the morning along with his other electrolytes. I suspect his generalized weakness and frequent falls is secondary to a combination of electrolyte deficiencies secondary to poor nutrition along with his chronic alcoholism. Once his electrolytes have been corrected we can evaluate his gait and monitor for any symptoms of weakness. If he continues to demonstrate gait imbalance we will consult with physical therapy. History of Present Illness History of Present Illness Chief Complaint: alcohol withdrawal, tremors, nausea, dizziness Narrative: 44-year-old male alcoholic who presents emergency department earlier in the morning with complaints of a syncopal spell that occurred while at rest. He has had a history of frequent dizzy spells over the past few months for which she is had an outpatient work-up to include a 48- hour Holter that was unremarkable and exercise treadmill stress test that showed no ischemia. He normally consumes about a half a gallon of liquor every 3 days but reportedly is not anything to drink for the past 3 days. His evaluation the emergency department earlier this morning included a CTA of his chest as well as routine labs and an echocardiogram. CTA showed no evidence for PE or aneurysm or dissection. Echocardiogram was unremarkable. Labs were remarkable for an anion gap of 20.8 and a low potassium of 3.2 with a normal magnesium of 1.8 and elevated transaminases with an AST of 258 and ALT of 149. He had normal TSH and normal troponin levels. He was given IV fluids and potassium supplementation and he was advised to be admitted for further evaluation of his syncope and treatment for impending alcohol withdrawal. Patient left the ER AGAINST MEDICAL ADVICE but later returned this evening with worsening symptoms of weakness and tremulousness along with nausea and anxiety. He had unsteady gait and called EMS to bring him back to the emergency department. In the ER Dr. Florencio Scott evaluated him and repeat his labs including a lipase was elevated at 8000 and a magnesium level that was low at 1.3 and a potassium of 3 with continued anion gap acidosis. Patient's acute alcohol withdrawal was treated initially with 2 mg of Ativan IV and subsequently given an additional 1 mg dose of Ativan. He was given 2 g of magnesium IV along with 2 doses of potassium chloride 10 mEq IV H and started on lactated Ringer's fluid infusion at 200 mL an hour. Patient is now admitted to the intensive care unit for treatment of acute alcohol withdrawal. Review of Systems All systems reviewed & are unremarkable except as noted in HPI and below PFSH Medical History Alcoholism (Chronic) Surgical History No significant past surgical history (Acute) Family History (Updated 02/20/20 @ 23:29 by Joesph Rubio) Maternal Grandfather Alcohol abuse Maternal Uncle Alcohol abuse Social History (Updated 02/20/20 @ 23:30 by Joesph Olivas Smoking/Tobacco Use Status: Current every day Tobacco Type: cigarettes Alcohol Intake: current Alcohol Intake frequency: 3 or more drinks per day Alcohol type: hard liquor Drug use: Never Substance use type: does not use Do you feel safe at home: Yes Do you feel safe in your relationship?: Yes Meds Home Medications and Allergies Home Medications Medication Instructions Recorded Confirmed Type ibuprofen 400 mg PO PRN PRN 01/09/19 02/20/20 History meclizine 25 mg PO TID #14 tab 04/10/19 02/20/20 Rx polymyxin B sulf-trimethoprim 1 drp OP Q3H #10 ml 08/10/19 02/20/20 Rx [Polytrim] pantoprazole [Protonix] 40 mg PO DAILY #90 tab 10/18/19 02/20/20 Rx sucralfate [Carafate] 1 gm PO BID #60 tab 10/18/19 02/20/20 Rx thiamine HCl (vitamin B1) 100 mg PO DAILY #60 tab 02/20/20 02/20/20 Rx Allergies Allergy/AdvReac Type Severity Reaction Status Date / Time No Known Allergies Allergy Unverified 02/20/20 20:44 Exam Narrative Exam Narrative: 44-year-old male who appears to be his stated age she is alert and oriented person place time circumstance. HEENT is remarkable for bloodshot eyes and plethoric facial appearance. Oropharynx noninjected no exudate mucosa is moist. TMs intact no erythema or bulging. Nares without epistaxis. Neck is supple nontender no JVD normal carotid pulses no thyromegaly no cervical lymphadenopathy. Lungs are clear to auscultation. Heart is regular rate and rhythm without murmur rub or gallop. Abdomen slightly distended soft with normal active bowel sounds no palpable masses no organomegaly no rebound tenderness. Extremities without peripheral cyanosis or edema. He has normal range of motion both upper and lower extremities. Neurologic exam he is alert and oriented person place time circumstance no focal motor or sensory deficits. Specifically he has normal manual muscle testing with 5 out of 5 strength in both upper and lower extremities including proximal and distal muscle groups. DTRs are intact. He has no myoclonus and currently is not exhibiting any tremors in his hands. Genitalia rectal exam deferred. Results Labs Result diagrams: 02/20/20 20:30 Labs: Laboratory Results - last 24 hr 02/20/20 02/20/20 20:30 20:30 Sodium 135 L Potassium 3.0 L D Chloride 97 L Carbon Dioxide 17.4 L Anion Gap 20.6 H BUN 6 L Creatinine 0.95 Estimated GFR/1.73 m2 >= 60.00 Glucose 325 H D Calcium 9.0 Magnesium 1.3 L Total Bilirubin 0.8 AST 182 H ALT 126 H Alkaline Phosphatase 60 Total Protein 7.4 Albumin 3.6 Lipase 1011 H Ethyl Alcohol 56.5 Last Vital Signs Temp 37 C 02/20/20 22:17 Pulse 111 H 02/20/20 22:17 Resp 22 02/20/20 22:17 BP 156/94 H 02/20/20 22:17 Pulse Ox 96 02/20/20 22:17 COVID-19 Screening Have you, or has anyone in your household, traveled outside of [place] in the last 14 days?: NO Had IN PERSON contact w/suspected or confirmed C-19 person: No
[2020-02-20] MEDS: Nicotine 21 MG/24 HR PATCH TD (23:19)
[2020-02-20] MEDS: PHENobarbital 130 MG/ML VIAL 260 MG IVP (23:19)
[2020-02-20] MEDS: POTASSIUM CHLORIDE 10 MEQ/100 ML BAG 50 MEQ IVPB (23:19)
[2020-02-20] MEDS: Pantoprazole 40 MG VIAL IVP (23:19)
[2020-02-21] VITALS (42 sets, daily range): BP systolic 97–158; BP diastolic 61–97; PULSE 68–103; RESP 16–25; TEMP 36.2–36.9; O2SAT 89–98
[2020-02-21 06:33] LABS: HCT 35.3 % (40.0-50.0); HGB 12.4 g/dL (13.5-17.5); Mean Corp. HGB Concentration 35.1 g/dL (32.0-36.0); Mean Corpuscular Hemoglobin 34.9 pg (27.0-33.0); Mean Corpuscular Volume 99.4 fL (80-95); Mean Platelet Volume 9.8 fL (8.0-11.0); RBC 3.55 m/cumm (4.50-6.00); RBC Distribution Width 12.5 % (11.8-14.1); White Blood Cell Count 4.21 k/cumm (4.4-10.8)
--- NOTE | 2020-02-21 07:00 | DI.US_ITS ---
EXAM: US ABDOMEN CLINICAL HISTORY: pancreatitis TECHNIQUE: Ultrasound abdomen performed using standard protocol. COMPARISON: No exams were available for comparison FINDINGS: ABDOMINAL AORTA AND IVC: Visualized portions normal caliber. PANCREAS: Normal where visualized. LIVER: Diffusely echogenic. Hepatopedal flow in the Portal Vein. GALLBLADDER: No evidence of cholelithiasis. No evidence of wall thickening. No pericholecystic fluid identified. BILIARY SYSTEM: Common bile duct measures 5.0 mm. No intrahepatic biliary ductal dilation. HARRY'S SIGN: Negative. KIDNEYS: Kidneys are symmetric in size. No evidence of renal calculi. No evidence of hydronephrosis. No renal mass or cyst identified. SPLEEN: Not enlarged. ASCITES: None seen. IMPRESSION: Hepatic steatosis. DATA REPOSITORY:
[2020-02-21 07:08] LABS: ALT 99 U/L (16-63); AST 116 U/L (15-37); Albumin 3.1 g/dL (3.4-5.0); Alkaline Phosphatase 51 U/L (46-116); Anion Gap 8.4 mmol/L (3-11); BUN 4 mg/dL (7-18); CO2 26.6 mmol/L (21.0-32.0); CREATININE 0.67 mg/dL (0.70-1.30); Calcium 8.5 mg/dL (8.5-10.1); Chloride 100 mmol/L (98-107); Glucose 163 mg/dL (74-106); Lipase 904 U/L (73-393); Magnesium 1.9 mg/dL (1.8-2.4); PHOSPHORUS 1.5 mg/dL (2.6-4.7); Potassium 3.6 mmol/L (3.5-5.1); Sodium 135 mmol/L (136-145); Total Protein 6.3 g/dL (6.4-8.2)
[2020-02-21 07:19] LABS: ETHANOL BLOOD < 3.0 mg/dL (<3)
[2020-02-21 07:34] LABS: Platelet Count 88 x1000/uL (130-400)
[2020-02-21 07:38] LABS: Bilirubin Negative (Negative); Blood Negative (Negative); Clarity Clear (Clear); Glucose 500 mg/dL (Negative); Ketones 40 mg/dL (Negative); Leukocyte Esterase Negative (Negative); Nitrite Negative (Negative); Specific Gravity 1.025 (1.005-1.025)
[2020-02-21] MEDS: Enoxaparin 40 MG/0.4 ML SYR SC (07:40)
[2020-02-21] MEDS: Normal Saline Flush 10 ML SYR IVP ×3 (07:43→22:37)
[2020-02-21 08:04] LABS: *AMPHETAMINES SCREEN URINE Negative (Negative); *BARBITURATES SCREEN URINE POSITIVE (Negative); *BENZODIAZEPINES SCREEN URINE Negative (Negative); Cannabinoids THC Negative (Negative); Cocaine Screen,Urine Negative (Negative); METHADONE URINE SCREEN Negative (Negative); OPIATES URINE SCREEN Negative (Negative)
[2020-02-21 08:05] LABS: Tricyclic Antidepressants Negative (Negative)
--- NOTE | 2020-02-21 08:13 | INITIAL_ITS ---
- If Service Date Differs Date of service: 02/21/20 Time of Service: 08:13 Care Management Initial Assess REASON FOR HOSPITALIZATION:: Alcohol withdrawal PAST MEDICAL HISTORY/PAST SURGICAL HISTORY:: Medical History . Alcoholism (Chronic). Surgical History . No significant past surgical history (Acute) PREVIOUS FUNCTIONAL STATUS/SOCIAL/FAMILY SUPPORTS:: Paul olives alone in an apartment in [facility]. He has an on-again,off-again girlfriend that he is not currently seeing. 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 Paul is independent with ADLs and all care. He identifies his older sister and his parents as strong supports. CURRENT FUNCTIONAL STATUS:: Paul was lying in bed when CM met with him. He was pleasant and agreeable to conversation. Paul was very clear that he wants help with sobriety. He has been working with a Car Shifter, Erma, and plans to reach out to her. Paul states that he has been hospitalized twice before for substance abuse rehab, once at [facility] and once at [facility]. He felt they were minimally helpful. He expressed interest in going to [facility] and stated his sister has contacted them for him. Paul shared that he is feeling a bit better but is still really unsteady on his feet. ADVANCE DIRECTIVES:: none on file Has patient been provided with info about the portal/API?: Yes Did the patient sign up for the portal?: No (no computer) CODE STATUS:: Full Code INSURANCE COVERAGE / FINANCIAL ISSUES:: Medicaid CURRENT HOME/COMMUNITY SERVICES/EQUIPMENT:: Paul has a Car ShifterErma PRIMARY CARE PHYSICIAN:: Jerrica Gomes POTENTIAL DISCHARGE NEEDS:: Paul may benefit from substance abuse treatment PATIENT/FAMILY EDUCATION NEEDS:: Discharge plan, limitations, follow up plan, Ask Me Three TRANSPORTATION:: via private vehicle with friends or family PLAN:: Paul remains ICU level of care while withdrawing from alcohol. He will likely be discharged home with additional support for his alcoholism and is actively seeking rehab in a substance abuse facility. Transportation will be determined by the final discharge plan. CM will continue to support Paul and assess for discharge planning needs.
[2020-02-21] MEDS: MULTIVITAMIN 10 ML, THIAMINE 100 MG, FOLIC ACID 1 MG in DEXTROSE 5%-0.45% SALINE 1,000 ML 42 ML IV (08:54)
--- NOTE | 2020-02-21 10:03 | PHACLINREV_ITS ---
Pharmacy Admission Review - Admission Clinical Review (Last Reviewed 02/20/20 @ 23:08 by Joesph Rubio) Hypokalemia (Acute) Hypomagnesemia (Acute) Alcohol withdrawal (Acute) Electrolyte and fluid disorder (Acute) No Known Allergies Allergy (Unverified 02/20/20 20:44) Height 5 ft 6 in Weight 70.87 kg - Renal Dosing Renal Dosing: BUN 4 mg/dL (7-18) L 02/21/20 06:18 Creatinine 0.67 mg/dL (0.70-1.30) L 02/21/20 06:18 Medications needing adjustments: Reviewed (Crcl ~107 mL/min current meds okay) - Anticoagulation Anticoagulation: Hgb 12.4 g/dL (13.5-17.5) L D 02/21/20 06:18 Hct 35.3 % (40.0-50.0) L 02/21/20 06:18 Plt Count 88 x1000/uL (130-400) L 02/21/20 06:18 Creatinine 0.67 mg/dL (0.70-1.30) L 02/21/20 06:18 DVT Prohphylaxis: Intervened (talked to MD as pt's plts are low, MD wanted to see the pt before deciding whether to continue or not) Medications: Enoxaparin Therapeutic Anticoagulation: N/A - Opiate Usage Evaluate Pain Scale/Pains Meds: N/A - Relevant Labs Sodium 135 mmol/L (136-145) L 02/21/20 06:18 Potassium 3.6 mmol/L (3.5-5.1) 02/21/20 06:18 Chloride 100 mmol/L (98-107) 02/21/20 06:18 Phosphorus 1.5 mg/dL (2.6-4.7) L 02/21/20 06:18 Magnesium 1.9 mg/dL (1.8-2.4) 02/21/20 06:18 Electrolytes, C-Reactive P, ESR: Intervened (mag and K+ improved since yesterday, still has IVF with K+ running, will mention low phos level to MD) - DM Control DM Control: Glucose 163 mg/dL (74-106) H D 02/21/20 06:18 Finger Stick Blood Glucose 143 Insulin Dosing: N/A - Heart Failure/NE EF%, ALEXANDER's, B-Blockers, Diuretics: N/A - BP Control BP Control: Blood Pressure [Left Arm] 121/69 Blood Pressure [Left Arm] 121/69 Blood Pressure 119/83 Blood Pressure 116/76 Blood Pressure 116/61 Blood Pressure 112/68 Blood Pressure 103/70 Blood Pressure 107/65 If elevated: N/A - Qtc Review If Elevated: N/A (QTc 428) - IV to PO Switch IV Medications: N/A - Home Meds Home Med List reviewed: Reviewed Relevent Home Meds Not ordered & why?: ibuprofen (PRN), meclizine, polytrim (finished rx from 2019), sucralfate (doesn't look like pt has been taking? last picked up from [employer] 10/2019 for 30 day supply) - Current meds Current Medication Order Review: Intervened (adjusted time of pantoprazole so falls on an even hour (was scheduled for 0)) - Comments Comments/Follow Ups: watch plts, K+, phos, BG, and for change to PO meds
--- NOTE | 2020-02-21 10:35 | W.PM.PROGNOT ---
Date of Service Date of service: 02/21/20 Time of Service: 10:35 Assessment and Plan Assessment and plan (1) Hypokalemia: Status: Acute Assessment and plan: Now normalized to 3.6 after IV and po replacement. Give Phos Neutra; Phos also low Monitor. (2) Hypomagnesemia: Status: Acute Assessment and plan: Now corrected with IV Mg from 1.3 to 1.9. Should stay corrected if his nutritional intake improves while not drinking. (3) Alcohol withdrawal: Status: Acute Assessment and plan: No further CIWA scoring requiring medication since doses given before MN. Cont monitoring. Qualifiers: Complication of substance-induced condition: uncomplicated Qualified Code(s): F10.230 - Alcohol dependence with withdrawal, uncomplicated (4) Pancreatitis: Status: Acute Assessment and plan: Lipase 1011 > 904. Currently w/o pain, N/V Clear liquids initiated. Abd US with normal pancrease. + hepatic steatosis. Qualifiers: Chronicity: acute Pancreatitis type: alcohol induced Acute pancreatitis complication: unspecified Qualified Code(s): K85.20 - Alcohol induced acute pancreatitis without necrosis or infection (5) Alcoholism: Status: Chronic Assessment and plan: He desires to enter an alcohol treatment program. Case management to assist. Thiamine supplementation. (6) Dizziness: Status: Acute Assessment and plan: Dizziness and weakness likely related to alcohol and sequalae of poor nutritional status including electrolyte disturbances. Electrolytes have been corrected. Check orthostatics. PT if demonstrates any gait disturbance. Subjective Subjective Patient reports: no new complaints and feels better; denies diarrhea, nausea, vomiting and fever Exam Narrative Exam Narrative: Pt lying in bed. Abd US exam in progress at time of my exam. Const General: cooperative Nutritional Appearance: average body habitus Orientation: alert and oriented x3 Eyes Conjunctivae: conjunctivae normal Sclera: sclerae normal Resp Effort & Inspection: normal respiratory effort Auscultation: clear to auscultation bilaterally Cardio Rate: regular rate Rhythm: regular rhythm Heart Sounds: S1 normal and S2 normal GI Inspection: normal to inspection and non-distended Palpation: soft, no guarding and tender (Mild LUQ tenderness but tolerating US probe w/o evidence of pain) Objective Objective Clinical Data: Abnormal lab results 02/20/20 02/20/20 02/21/20 Range/Units 20:30 20:30 06:18 WBC (4.4-10.8) k/cumm RBC (4.50-6.00) m/cumm Hgb (13.5-17.5) g/dL Hct (40.0-50.0) % MCV (80-95) fL MCH (27.0-33.0) pg Plt Count (130-400) x1000/uL Sodium 135 L 135 L (136-145) mmol/L Potassium 3.0 L D (3.5-5.1) mmol/L Chloride 97 L (98-107) mmol/L Carbon Dioxide 17.4 L (21.0-32.0) mmol/L Anion Gap 20.6 H (3-11) mmol/L BUN 6 L 4 L (7-18) mg/dL Creatinine 0.67 L (0.70-1.30) mg/dL Glucose 325 H D 163 H D (74-106) mg/dL Phosphorus 1.5 L (2.6-4.7) mg/dL Magnesium 1.3 L (1.8-2.4) mg/dL Conjugated Bilirubin 0.30 H (0.00-0.20) mg/dL AST 182 H 116 H (15-37) U/L ALT 126 H 99 H (16-63) U/L Total Protein 6.3 L (6.4-8.2) g/dL Albumin 3.1 L (3.4-5.0) g/dL Lipase 1011 H 904 H (73-393) U/L Urine Ketones (Negative) mg/dL Urine Urobilinogen (Up TO 0.2) EU/dL Urine Glucose (Negative) mg/dL Ur Barbiturates Screen (Negative) 02/21/20 02/21/20 02/21/20 Range/Units 06:18 06:45 06:45 WBC 4.21 L D (4.4-10.8) k/cumm RBC 3.55 L (4.50-6.00) m/cumm Hgb 12.4 L D (13.5-17.5) g/dL Hct 35.3 L (40.0-50.0) % MCV 99.4 H (80-95) fL MCH 34.9 H (27.0-33.0) pg Plt Count 88 L (130-400) x1000/uL Sodium (136-145) mmol/L Potassium (3.5-5.1) mmol/L Chloride (98-107) mmol/L Carbon Dioxide (21.0-32.0) mmol/L Anion Gap (3-11) mmol/L BUN (7-18) mg/dL Creatinine (0.70-1.30) mg/dL Glucose (74-106) mg/dL Phosphorus (2.6-4.7) mg/dL Magnesium (1.8-2.4) mg/dL Conjugated Bilirubin (0.00-0.20) mg/dL AST (15-37) U/L ALT (16-63) U/L Total Protein (6.4-8.2) g/dL Albumin (3.4-5.0) g/dL Lipase (73-393) U/L Urine Ketones 40 H (Negative) mg/dL Urine Urobilinogen 1.0 H (Up TO 0.2) EU/dL Urine Glucose 500 H (Negative) mg/dL Ur Barbiturates Screen Positive A (Negative) Vital Signs Temperature 36.9 C 02/21/20 07:47 Temperature Source Temporal Artery Scan 02/21/20 07:47 Pulse 85 02/21/20 07:46 Pulse 73 02/21/20 08:00 Respiratory Rate 18 02/21/20 08:00 Respiratory Effort Non-Labored 02/21/20 07:47 Respiratory Depth Normal 02/21/20 07:47 Respiratory Pattern Normal 02/21/20 07:47 Blood Pressure 119/83 02/21/20 07:46 Blood Pressure Mean 93 02/21/20 07:46 Blood Pressure Position Supine 02/20/20 23:42 Pulse Oximetry 93 L 02/21/20 08:00 Oxygen Delivery Method Room Air 02/21/20 07:47 Oxygen Flow Rate 0 02/21/20 07:47 Pain Level 0 02/21/20 07:47 Intake & Output 02/20/20 02/20/20 02/21/20 11:59 23:59 11:59 Intake Total 120 / 120 968.333 / 968.333 Output Total 800 / 800 Balance 120 / 120 168.333 / 168.333 Weight 70.307 kg 70.87 kg Intake: IV 120 / 120 968.333 / 968.333 Output: Urine 800 / 800 Other: Urine Color Dark Ama Urine Appearance Sediment Urine Odor Strong Comment denies any problems Pt just voided at change of shift. Voiding Methods Urinal Laboratory Results WBC 4.21 k/cumm (4.4-10.8) L D 02/21/20 06:18 RBC 3.55 m/cumm (4.50-6.00) L 02/21/20 06:18 Hgb 12.4 g/dL (13.5-17.5) L D 02/21/20 06:18 Hct 35.3 % (40.0-50.0) L 02/21/20 06:18 MCV 99.4 fL (80-95) H 02/21/20 06:18 MCH 34.9 pg (27.0-33.0) H 02/21/20 06:18 MCHC 35.1 g/dL (32.0-36.0) 02/21/20 06:18 RDW 12.5 % (11.8-14.1) 02/21/20 06:18 Plt Count 88 x1000/uL (130-400) L 02/21/20 06:18 MPV 9.8 fL (8.0-11.0) 02/21/20 06:18 Sodium 135 mmol/L (136-145) L 02/21/20 06:18 Potassium 3.6 mmol/L (3.5-5.1) 02/21/20 06:18 Chloride 100 mmol/L (98-107) 02/21/20 06:18 Carbon Dioxide 26.6 mmol/L (21.0-32.0) 02/21/20 06:18 Anion Gap 8.4 mmol/L (3-11) 02/21/20 06:18 BUN 4 mg/dL (7-18) L 02/21/20 06:18 Creatinine 0.67 mg/dL (0.70-1.30) L 02/21/20 06:18 Estimated GFR/1.73 m2 >= 60.00 (mL/min/1.73m2) 02/21/20 06:18 Glucose 163 mg/dL (74-106) H D 02/21/20 06:18 Calcium 8.5 mg/dL (8.5-10.1) 02/21/20 06:18 Phosphorus 1.5 mg/dL (2.6-4.7) L 02/21/20 06:18 Magnesium 1.9 mg/dL (1.8-2.4) 02/21/20 06:18 Total Bilirubin 1.0 mg/dL (0.2-1.0) 02/21/20 06:18 Conjugated Bilirubin 0.30 mg/dL (0.00-0.20) H 02/21/20 06:18 AST 116 U/L (15-37) H 02/21/20 06:18 ALT 99 U/L (16-63) H 02/21/20 06:18 Alkaline Phosphatase 51 U/L (46-116) 02/21/20 06:18 Total Protein 6.3 g/dL (6.4-8.2) L 02/21/20 06:18 Albumin 3.1 g/dL (3.4-5.0) L 02/21/20 06:18 Lipase 904 U/L (73-393) H 02/21/20 06:18 Urine Color Yellow (Yellow) 02/21/20 06:45 Urine Clarity Clear (Clear) 02/21/20 06:45 Urine pH 7.0 (5-8) 02/21/20 06:45 Ur Specific Jackson 1.025 (1.005-1.025) 02/21/20 06:45 Urine Protein Negative mg/dL (Negative) 02/21/20 06:45 Urine Ketones 40 mg/dL (Negative) H 02/21/20 06:45 Urine Blood Negative (Negative) 02/21/20 06:45 Urine Nitrite Negative (Negative) 02/21/20 06:45 Urine Bilirubin Negative (Negative) 02/21/20 06:45 Urine Urobilinogen 1.0 EU/dL (Up TO 0.2) H 02/21/20 06:45 Ur Leukocyte Esterase Negative (Negative) 02/21/20 06:45 Urine Glucose 500 mg/dL (Negative) H 02/21/20 06:45 Urine Opiates Screen Negative (Negative) 02/21/20 06:45 Urine Methadone Screen Negative (Negative) 02/21/20 06:45 Ur Barbiturates Screen Positive (Negative) A 02/21/20 06:45 Ur Tricyclics Screen Negative (Negative) 02/21/20 06:45 Ur Amphetamines Screen Negative (Negative) 02/21/20 06:45 U Benzodiazepines Scrn Negative (Negative) 02/21/20 06:45 Urine Cocaine Screen Negative (Negative) 02/21/20 06:45 Ur THC Screen Negative (Negative) 02/21/20 06:45 Ethyl Alcohol < 3.0 mg/dL (<3) 02/21/20 06:18
[2020-02-21] MEDS: LORazepam 1 MG TAB PO/SL ×2 (11:20→16:27)
[2020-02-21 13:23] LABS: COVID-19 RT-PCR UVMMC Result Negative (Negative)
[2020-02-21] MEDS: Pantoprazole 40 MG VIAL IVP (22:36)
[2020-02-21] MEDS: diazePAM 2 MG TAB PO (22:41)
[2020-02-22] VITALS (29 sets, daily range): BP systolic 101–134; BP diastolic 77–97; PULSE 61–103; RESP 13–25; TEMP 36.4–36.6; O2SAT 92–99
[2020-02-22] MEDS: LORazepam 1 MG TAB PO/SL (00:18)
--- NOTE | 2020-02-22 06:52 | PDOC.CMDIS ---
LACE Index Scoring Tool - Questions: Length of Stay (in days): 2 Acuity (Admit via E.D.?): Yes E.D. Visits: 5 - Answers: Total Score: 9 Risk of Readmission: Low Risk Care Management Discharge Reason for Hospitalization: Alcohol withdrawal Discharge Plan: Paul will return home when ready per MD, he is working with Erma, his monomer recovery supervisor on an admission to [facility], pending acceptance and bed availability. He will transport via private vehicle. Patient/Family Education Needs: Review discharge instructions, discuss Ask Me Three.
[2020-02-22 07:53] LABS: Anion Gap 11.7 mmol/L (3-11); BUN 2 mg/dL (7-18); CO2 24.3 mmol/L (21.0-32.0); CREATININE 0.61 mg/dL (0.70-1.30); Calcium 9.1 mg/dL (8.5-10.1); Chloride 100 mmol/L (98-107); Glucose 85 mg/dL (74-106); Potassium 3.1 mmol/L (3.5-5.1); Sodium 136 mmol/L (136-145)
[2020-02-22 08:01] LABS: Magnesium 1.5 mg/dL (1.8-2.4)
[2020-02-22] MEDS: Potassium Chloride 20 MEQ TABCR 40 MEQ PO (09:24)
[2020-02-22] MEDS: Multivitamin TAB 1 TAB PO (09:25)
[2020-02-22] MEDS: Thiamine 100 MG TAB PO (09:25)
[2020-02-22] MEDS: Normal Saline Flush 10 ML SYR IVP (09:25)
[2020-02-22] MEDS: MAGNESIUM SULFATE 4 GM/100 ML BAG IVPB (09:26)
[2020-02-22] MEDS: POTASSIUM CHLORIDE 20 MEQ/100 ML BAG 25 MEQ IVPB (09:31)
--- NOTE | 2020-02-22 10:19 | IN_ITS ---
Date of service: 02/22/20 Time of Service: 10:00 PT Notes Visit Reasons: ALCOHOL WITHDRAWAL Inpatient Physical Therapy Evaluation Date: 02/22/2020 Referring Doctor: Dr. Montiel PT Orders: PT CONSULT: Limited ability to ambulate Precautions: Fall, standard Patient Profile/Admitting Diagnosis: Patient admitted 02/21/2020 for medical management of acute alcohol withdrawal. He presented with dizziness and imbalance, and PT consult was requested to assess safety and mobility prior to discharge to an alcohol treatment facility. PMHX: Alcoholism, dizziness, hypomagnesemia, hypokalemia, syncope Social History/Home Situation: Patient lives independently in an apartment. 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 He is typically fully independent with ADLs and self-care. Equipment Owned/DME: None Subjective: Paul reports that he has been moving better each day. States that he initially needed a walker to get around, although feels that his balance is significantly improved. He was able to walk with nursing today without a device. He reports ongoing dizziness for the past several months. This occurs most significantly when turning his head quickly. He denies issues rolling over in bed. Admits to a room spinning sensation, which improves with rest. Objective: General Observation: Resting in bed with IV in RUE. Holter monitor in place. No additional lines. Mental Status: A&O x3 Pain: Denies ROM: Right Upper Extremity: Shoulder flexion to 160 degrees bilaterally. Elbow and wrist motion grossly WFL. Left Upper Extremity: Shoulder flexion to 160 degrees bilaterally. Elbow and wrist motion grossly WFL. Right Lower Extremity: WFL Left Lower Extremity: WFL Strength: Right Upper Extremity: Shoulder flexion 4-/5. Biceps 4+/5. Triceps 4-/5. Craps Dealer is weak but equal. Left Upper Extremity: Shoulder flexion 4-/5. Biceps 4+/5. Triceps 4-/5. Craps Dealer is weak but equal. Right Lower Extremity: Hip flexion 4+/5. Quads 4+/5. Hamstrings 4+/5. Ankle dorsiflexion 5/5. Left Lower Extremity: Hip flexion 4+/5. Quads 4+/5. Hamstrings 4+/5. Ankle dorsiflexion 5/5. Sensation: Intact distally Coordination: Patient demonstrates diminished coordination with rapid alternating movements of the upper and lower extremities. Most significantly limited with alternating toe tapping. He shows mild limitations with [id number] bilaterally. Fine motor with thumb to digit tapping is intact. Bed Mobility/Transfers: Supine?sit: Independent Sit?supine: Independent, although with increased time perform Sit?stand: Supervision Stand?sit: Supervision, with need for minimal cues for safety and technique Gait: Patient ambulates 6 feet x 2 in the treatment room with supervision and without assistive device. He is able to march in place x2-minute without upper extremity support, and without loss of balance. Balance: Static Sitting: Normal Dynamic Sitting: Good Static Standing: Good Dynamic Standing: Good Special Tests: 4 position balance test: 3/4, with patient able to perform single leg standing x5 seconds only without upper extremity support. He demonstrates good safety awareness, relying on upper extremity support as he perceives difficulty with his balance. Mobility Limitations Standardized Measure [facility] AM-PAC 6 clicks Basic Mobility Inpatient Short Form: Raw Score: 22 CMS Score: 21% deficit Informed Consent/Education: Patient instructed in purpose of PT consult and plan of care. Treatment: Today's session consisted of evaluation, followed by instruction in early balance retraining and habituation activities. He completed the following: Standing october x2 minutes, supervision only Standing hip abduction x10 each, fingertips support to FW W, and CGA Small base of support standing with shoulder flexion, supervision only x2-minute Assessment: Patient is a 44 year old male referred to physical therapy services with the diagnosis of acute alcohol withdrawal. Patient presents with clinical signs and symptoms consistent with diagnosis, as demonstrated by the following impairment level findings: 1. Diffuse upper extremity weakness 2. Diffuse lower extremity weakness 3. Decreased coordination 4. Balance impairment 5. Chronic symptoms of vertigo Impairments are contributing to the following functional limitations: 1. Decreased safety with transfers, although with significant improvements with minimal cueing 2. Decreased activity tolerance 3. Balance impairment Patient is assessed as Moderate [id number] complexity based on the following: History: 44-year-old male admitted for acute alcohol withdrawal, with associated impairments in balance, coordination and strength. Presents with subjectively improved mobility, and is able to effectively ambulate without device. He demonstrates good insight into his balance deficits, and is able to correct for impairments with transfers over the course of our session today. Complicating factors include alcoholism, with planned discharge to treatment facility. Examination: Functional limitations as noted above Presentation: Evolving Decision Making: Moderate complexity Plan of Care/Treatment Plan: Patient demonstrates effective safety and mobility to allow for transfer to alcohol facility once medically stabilized. He has a planned discharge for later today. DISCHARGE RECOMMENDATIONS: No anticipated equipment needs TREATMENT CODE/TIME: 10:00?1020 ([id number]) Brittany Dial, PT, DPT [facility]
[2020-02-22] MEDS: Normal Saline 500 ML 25 ML IV (10:40)
[2020-02-22] MEDS: POTASSIUM CHLORIDE 20 MEQ/100 ML BAG 50 MEQ IVPB (12:21)
--- NOTE | 2020-02-22 14:09 | DSE_ITS ---
Date of service: 02/22/20 Time of Service: 14:09 DS: Diagnosis Discharge Diagnosis (1) Alcohol withdrawal: Status: Acute (2) Pancreatitis: Status: Acute (3) Hypokalemia: Status: Acute (4) Hypomagnesemia: Status: Acute (5) Alcoholism: Status: Chronic (6) Chronic vertigo: Status: Acute (7) Impairment of balance: Status: Acute (8) Tobacco abuse: Status: Acute (9) Syncope: Status: Chronic (10) Hepatic steatosis: Status: Acute (11) COVID-19 ruled out: Status: Acute Discharge Plan Disposition Patient Disposition: HOME Condition: Stable Discharge Details Chief Complaint: ETOHWithdr Clinical Impression: Alcohol withdrawal, Pancreatitis, Electrolyte and fluid disorder Reason For Visit: ALCOHOL WITHDRAWAL Admit Date/Time: 02/20/20 21:55 Admit Provider: Joesph Rubio Attending Provider: Joesph Rubio Primary Care Provider: Jerrica Gomes ED Provider: Florencio Scott [facility] Hospital Course Hospital Course: Mr Layton is a 44 year old male with PMHx of alcohol and tobacco abuse as well as chronic vertigo who was admitted to [facility] ICU under the hospitalist service on 02/20/2020 for alcohol withdrawal following a visit to the ED earlier the same day for a syncopal episode (left AMA at that time). There was also evidence of mild alcoholic pancreatitis. He did require phenobarbital on the evening of admission but was managed with PO ativan, diazepam, and oxazepam for the duration of his stay here. In the last 24 hours, there have been no CIWA scores higher than 5, and today no CIWA scores higher than 1. His pancreatitis has resolved, and he is tolerating regular consistency low fat diet. At this point, the patient is awaiting an inpatient alcohol rehabilitation bed at [facility], but is medically stable for discharge home until a bed becomes available. He was urged not to smoke and offered a nicotine patch on discharge, which he refused. He was advised not to drink, refused prn medications to take at home, stating that his withdrawal does not usually last more than 2-3 days. As far as his syncopal episode, the patient would benefit from outpatient cardiac event recorder. Echo was essentially normal with EF of 50% and no valvular pathology. His CTA of the chest was negative for a PE. There were no arrhythmic events on the overhead distribution engineer. It is certainly possible that the syncope had occurred in setting of an arrhythmia not caught on our monitors (prior to admission). As far as vertigo, the patient has a history of this, was evaluated by PT and would benefit from outpatient physical therapy to work on his balance. He is medically stable for discharge home today. Care for patient as well as completion of his discharge paperwork on day of discharge took 45 minutes. Home Meds and New Rx's Prescriptions: New multivitamin [Multiple Vitamins] Tablet 1 tab PO DAILY Qty: 0 RF: 0 thiamine mononitrate (vit B1) [Vitamin B-1 (mononitrate)] 100 mg Tablet 100 mg PO DAILY Qty: 30 RF: 0 Continued ibuprofen 200 mg Tablet 400 mg PO PRN PRNRF: 0 meclizine 25 mg tablet 25 mg PO TID Qty: 14 RF: 0 pantoprazole [Protonix] 40 mg tablet,delayed release (DR/EC) 40 mg PO DAILY Qty: 90 RF: 0 sucralfate [Carafate] 1 gram tablet 1 gm PO BID Qty: 60 RF: 0 thiamine HCl (vitamin B1) 100 mg tablet 100 mg PO DAILY Qty: 60 RF: 0 Discontinued polymyxin B sulf-trimethoprim [Polytrim] 10,000 unit- 1 mg/mL drops 1 drp OP Q3H Qty: 10 RF: 0 Discharge Instructions Instructions: How to Stop Smoking (DC), Pancreatitis (DC), Vertigo (DC), Syncope (DC), Alcohol Withdrawal (DC) Additional Instructions: Return to the hospital with any fever, bleeding, chest pain, or shortness of breath. Stop smoking and drinking! Follow up with your PCP within 1 week. Bloodwork in 1 week. You need to wear a overhead distribution engineer once it becomes available. Follow up with [facility] for alcohol rehab. Referrals: Jerrica Gomes [Primary Care Provider] - Activity:: Activity as Tolerated Equipment/Supplies:: No Equipment Needed Diet:: Low fat Discharge Orders Discharge Orders: Discharge Order (Routine); Ordered 02/22/20 Ordered By: Maryjane Suero Other Ambulatory Orders: Basic Metabolic Panel (Routine) Timeframe: 20200226 Facility: [facility] - Location: Laboratory Outpatient Ordered By: Maryjane Suero Magnesium (Routine) Timeframe: 20200226 Facility: [facility] - Location: Laboratory Outpatient Ordered By: Maryjane Suero Phosphorus (Routine) Timeframe: 20200226 Facility: [facility] - Location: Laboratory Outpatient Ordered By: Maryjane Suero Cardiac Event Recorder (Outpt) (ONCE) Timeframe: 20200229 Facility: [facility] - Location: Respiratory Therapy Ordered By: Maryjane Suero DS: Summary Status at Discharge Functional status at discharge: independent ambulation Overall status at discharge: patient is back to baseline Mental Status: mental status grossly normal Speech and Movement: speech and movement normal Mood: congruent mood Affect: normal affect Exam Narrative Exam Narrative: General: Very pleasant middle-aged male, A&Ox3, laying comfortably in bed HEENT: EOMI, MMM Heart: RRR, no m/r/g Lungs: CTAB Abdomen: soft, nontender, nondistended Extremities: no e/c/c BLE's Psych Mental Status: mental status grossly normal Speech and Movement: speech and movement normal Mood: congruent mood Affect: normal affect DS: Data Vitals/I&O Vitals and I&O: Vital Signs Temperature 36.6 C 02/22/20 12:03 Temperature Source Temporal Artery Scan 02/22/20 12:03 Pulse 95 H 02/22/20 12:03 Pulse 84 02/22/20 12:03 Respiratory Rate 17 02/22/20 12:03 Respiratory Effort Non-Labored 02/22/20 12:03 Respiratory Depth Normal 02/22/20 12:03 Respiratory Pattern Normal 02/21/20 20:18 Blood Pressure 101/80 02/22/20 12:03 Blood Pressure Mean 85 02/22/20 12:03 Blood Pressure Position Right Lateral 02/22/20 12:03 Pulse Oximetry 99 02/22/20 12:03 Oxygen Delivery Method Room Air 02/22/20 12:03 Oxygen Flow Rate 0 02/22/20 12:03 Pain Level 0 02/22/20 12:03 Intake & Output 02/21/20 02/22/20 02/22/20 23:59 11:59 23:59 Intake Total 2347.9 / 4316.233 830.417 / 1120.000 289.583 / 1120.000 Output Total 3150 / 4450 1000 / 1825 825 / 1825 Balance -802.1 / -133.767 -169.583 / -705.000 -535.417 / -705.000 Weight 74 kg Intake: IV 1372.9 / 3341.233 60.417 / 110.000 49.583 / 110.000 Oral 975 / 975 770 / 1010 240 / 1010 Output: Urine 3150 / 4450 1000 / 1825 825 / 1825 Other: Urine Color Pale Light Ama Light Ama Urine Appearance Clear Clear Clear Urine Odor None None None Comment voiding in urinal. Urine clear light yellow voiding in urinal. Urine clear light yellow mixed with stool Stool Occult Blood Negative Stool Size Smear Moderate Stool Characteristics Formed Brown Voiding Methods Urinal Bedside Commode Bedside Commode Data Completed and Pending Completed studies during hospitalization [Text1]: Echo 02/20/2020: Left Ventricle : The left ventricle is normal size. The left ventricular systolic function is normal. The left ventricular ejection fraction is within the normal range. There is normal left ventricular wall thickness. There is normal LV segmental wall motion. The left ventricular diastolic function is normal. LVEF is 50%. Right Ventricle : The right ventricle is normal size. Atria : The left atrium size is normal. The right atrium size is normal. Valves: There are no hemodynamically significant valvular lesions. Great Vessels : IVC is normal in size and collapses >50% with inspiration. Please see remainder of study for further details. There is no prior study available for comparison. CTA chest 02/20/2020: No evidence of pulmonary embolism, thoracic aortic dissection or aneurysm. US abdomen 02/21/2020: Hepatic steatosis. Labs on day of discharge: Labs from last 24 hours 02/22/20 06:29 Sodium 136 Potassium 3.1 L Chloride 100 Carbon Dioxide 24.3 Anion Gap 11.7 H BUN 2 L Creatinine 0.61 L Estimated GFR/1.73 m2 >= 60.00 Glucose 85 D Calcium 9.1 Magnesium 1.5 L [facility] Medical History Alcoholism (Chronic) Chronic vertigo (Acute) Impairment of balance (Acute) Tobacco abuse (Acute) Surgical History No significant past surgical history (Acute) Family History Maternal Grandfather Alcohol abuse Maternal Uncle Alcohol abuse Social History Smoking/Tobacco Use Status: Current every day Tobacco Type: cigarettes Alcohol Intake: current Alcohol Intake frequency: 3 or more drinks per day Alcohol type: hard liquor Drug use: Never Substance use type: does not use Do you feel safe at home: Yes Do you feel safe in your relationship?: Yes
== END 2020-02-22 15:15 | disposition home or self-care (01) | DRG 896 ==
LOC: ER 22:27 → ICU 22:31
PROVIDERS: Family Medicine; Admitting Provider Internal Medicine; Emergency Provider Emergency Medicine; PCP Nurse Practitioner Family; Visit Provider Internal Medicine
DX: F10.230 Alcohol dependence with withdrawal, uncomplicated (principal); K85.20 Alcohol induced acute pancreatitis without necrosis or infection; E87.2 Acidosis; E83.42 Hypomagnesemia; R26.81 Unsteadiness on feet; F17.210 Nicotine dependence, cigarettes, uncomplicated; E87.6 Hypokalemia; R53.1 Weakness; R42 Dizziness and giddiness; Z11.59 Encounter for screening for other viral diseases; K76.0 Fatty (change of) liver, not elsewhere classified
CPT/HCPCS: 36415; 71275; 80048; 80053; 80076; 80307; 83690; 85027; 93005; 96361; 96365; 96366; 96367; 96368; 96375; 96376; 97162; 99223; 99232; 99239; 99285; 99291; J1650; U0003; 76700; 80320; 81003; 82272; 83735; 84100; 84443; 84484; 85025; 85379; 93010; 93306; 99284; J2060; J2405; J2560; J3475; J3480; J3490

== ENCOUNTER 2020-02-26 13:16 | Outpatient (CLI) | payer MEDICAID, SELFPAY | END 2020-02-26 13:36 | PROVIDERS: PCP Nurse Practitioner Family; Visit Provider Internal Medicine | DX: R55 Syncope and collapse (principal); R00.2 Palpitations; I49.1 Atrial premature depolarization; I49.3 Ventricular premature depolarization | CPT/HCPCS: 93270 ==

== ENCOUNTER 2020-03-05 04:35 | Emergency (ER) | payer MEDICAID, SELFPAY ==
[2020-03-05] VITALS (15 sets, daily range): BP systolic 129–176; BP diastolic 74–99; PULSE 68–98; RESP 17–21; TEMP 36.8; O2SAT 96–98
--- NOTE | 2020-03-05 04:30 | RT.EKG_ITS ---
APPROVED REPORT Exam: Resting ECG Patient Location: E HR:69 bpm ECG Measurements Heart Rate 69 AXIS VA [id number] P [id number] QRSd 86 QRS 48 QT 385 T 50 QTc 412 <Conclusion> EKG sinus rhythm, intervals normal, slight peaking of the T waves in V2 and V3, however review of jamal or EKGs from September demonstrates notable similarity. No significant ST elevation or depression. N o S1Q3T3, no evidence of STEMI
--- NOTE | 2020-03-05 04:46 | ED.GENADUL_ITS ---
Discharge Plan Disposition Patient Disposition: HOME Condition: Good Discharge Details Chief Complaint: GenMedical Clinical Impression: Dizziness, Alcoholism, Alcohol withdrawal, Chronic pancreatitis Primary Care Provider: Jerrica Gomes ED Provider: Alejandro Thomas Home Meds and New Rx's Prescriptions: New meclizine 25 mg tablet 25 mg PO TID Qty: 30 RF: 0 Discharge Instructions Instructions: Dizziness (ED) Additional Instructions: You have been given a pill called Librium to help with your withdrawal symptoms. Please do not drink any alcohol as this may interact with the pill. I am concerned that your chronic dizziness is related to your chronic alcohol consumption. Please take the dizzy medication meclizine to help with your symptoms. If you notice any worsening of your symptoms, or any new symptoms such as vomiting, diarrhea, fever, chills, shortness of breath, chest pain, numbness, weakness, or fainting , please return immediately to the emergency department for reevaluation. Please follow up with your primary care provider as soon as possible for reassessment and reevaluation. As always, it was a pleasure participating in your medical care today. Referrals: Jerrica Gomes [Primary Care Provider] - Medical Decision Making 44-year-old male with a past medical history of chronic alcoholism, mild stable ascending aortic aneurysm at 3.7 cm, chronic vertigo, who presents today for shortness of breath. Patient states that this evening he felt mildly short of breath especially while taking a shower. He states that his symptoms continued throughout the night. He denies any pleuritic chest pain denies PE risk factors such as recent long car rides, immobilization, recent surgery, prior history of DVT or PE, family history of PE or DVT, morbid obesity, exogenous estrogen , hemoptysis, history of cancer. He denies any cough. He also does admit to recently trying to wean off of his chronic alcoholism. Last drink was 24 hours ago. He states he does feel notably anxious and jittery much more than normal. He denies any IV or illicit drug use. He denies any chest heaviness, chest tightness, bandlike sensation around the chest. Physical exam is notably unremarkable. Patient is mild to moderately tremulous. No significant nystagmus. No ataxia. He demonstrates no focal neurologic deficits. He does appear to be demonstrating mild symptoms of alcohol withdrawal though. Radial pulses are equal bilaterally. With no complaints of chest pain whatsoever his symptoms are inconsistent with ACS or dissection. Lungs are clear, uncertain as to the exact etiology of his shortness of breath. Differential does include mild bronchitis. Less likely pneumonia. May also be related to symptoms of alcohol withdrawal. We will give a small dose of Ativan, gently rehydrate, evaluate for unlikely cardiac etiology, monitor closely and reassess. Also of note the patient did have a notably unremarkable echo within this past month. Additionally he had a 48-hour Holter monitor which showed just a few episodes of very brief SVT, but no other significant abnormality. He is currently wearing a zio patch 6 AM On reassessment after Ativan the patient has complete resolution of his shortness of breath. He states he feels much better in regards to that, and feels that his chest symptoms of shortness of breath felt more like a panic attack rather than something else. This would correlate well with my suspicion for withdrawal symptoms. Patient's blood pressure and jitteriness notably improved with the Ativan administration. We will add Librium for the patient. The patient's d-dimer did come back elevated, however with his complete resolution of his shortness of breath with the Ativan, and his notably low likelihood for PE, in conjunction with his notably stable vital signs, I did discuss with him the risks and benefits of CAT scan versus holding off. Patient is received multiple CAT scans recently, including CTAs. Weighing these risks and benefits through shared decision making process we will hold off on a repeat CTA of his chest this is signs and symptoms are clinically inconsistent with PE or dissection or severe aneurysm at this time. Additionally chest x-ray shows no acute process, no mediastinal widening or other abnormality. No Ralph's hump or wedge-shaped opacities. Of note the patient still does complain of dizziness and states that it is severe. States that he is chronic dizziness, this feels very germania to his chronic dizziness slightly worse than normal. Patient's exam shows normal test of skew, no significant nystagmus, he is mildly unsteady on his feet, and subjectively feels notably unsteady. We will get a CT scan of the head to rule out acute process, and give meclizine monitor closely and reassess. [address] scan of the head is negative for acute process. Patient is feeling much better with Librium and meclizine. He did get him up and ambulated well, no signs of ataxia or wide-based gait whatsoever. No significant imbalance. He does have some subjective dizziness still. I do honestly feel that a component of this is likely related to his chronic alcoholism. Laboratory work-up is relatively unremarkable. His lipase is elevated, however upon reassessment he has no abdominal pain whatsoever, no complaints of nausea or vomiting. I suspect that it is chronic pancreatitis that is mild secondary to his chronic alcoholism. With his notable improvement of his symptomatology, reassuring vital signs, negative troponin, unremarkable EKG, I do feel that he can be discharged at this time. I feel that he would benefit from close outpatient management and follow-up. Will place referral for close follow-up with his PCP. I have extensively reviewed the treatment plan and discharge instructions with the patient. I have addressed all patient concerns at this time. The patient was made aware of what symptoms to monitor for that would warrant a return to the emergency department. Discussed the plan with the patient, they demonstrate verbal understanding and agreement with our assessment and plan at this time. EKG 5: 07 EKG sinus rhythm, intervals normal, slight peaking of the T waves in V2 and V3, however review of prior EKGs from September demonstrates notable similarity. No significant ST elevation or depression. No S1Q3T3, no evidence of STEMI FINDINGS: Brain:Moderate volume loss No hemorrhage.Unremarkable white matter. No mass effect. Ventricles: Normal. No ventriculomegaly. Bones/joints: Unremarkable. No acute fracture. Sinuses: Minimal fluid versus mucosal thickening in the posterior left ethmoid air cells. Minimal mucosal thickening in the inferior frontal sinuses. Mastoid air cells: Visualized mastoid air cells are well aerated. Soft tissues: Unremarkable. IMPRESSION: No acute intracranial hemorrhage Question minimal left ethmoid sinusitis Thank you for allowing us to participate in the care of your patient. Dictated and Authenticated by: Onel Shields MD 03/05/2020 6:44 AM Eastern Time ([place] & [place]) FINDINGS: Lungs: Mild chronic interstitial prominence. No consolidation. Pleural space: No pleural effusion. No pneumothorax. Heart/Mediastinum: Unremarkable. No cardiomegaly. Bones/joints: Unremarkable. Overlying monitor noted IMPRESSION: No acute findings. Thank you for allowing us to participate in the care of your patient. Dictated and Authenticated by: Onel Shields MD 03/05/2020 5:46 AM Eastern Time ([place] & [place]) HPI General Date/Time Provider Initiated Documentation: 03/05/20 05:09 . HPI Narrative: 44-year-old male with a past medical history of chronic alcoholism, mild stable ascending aortic aneurysm at 3.7 cm, chronic vertigo, who presents today for shortness of breath. Patient states that this evening he felt mildly short of breath especially while taking a shower. He states that his symptoms continued throughout the night. He denies any pleuritic chest pain denies PE risk factors such as recent long car rides, immobilization, recent surgery, prior history of DVT or PE, family history of PE or DVT, morbid obesity, exogenous estrogen , hemoptysis, history of cancer. He denies any cough. He also does admit to recently trying to wean off of his chronic alcoholism. Last drink was 24 hours ago. He states he does feel notably anxious and jittery much more than normal. He denies any IV or illicit drug use. He denies any chest heaviness, chest tightness, bandlike sensation around the chest. No other complaints at this time. Related Data Home Medications Medication Instructions Recorded Confirmed meclizine 25 mg PO TID #30 tab 03/05/20 Previous Rx's Medication Instructions Recorded meclizine 25 mg PO TID #30 tab 03/05/20 Allergies Allergy/AdvReac Type Severity Reaction Status Date / Time No Known Allergies Allergy Unverified 03/05/20 04:42 General Stated Complaint: GenMedical SARAH: 3 Review of Systems All systems reviewed & are unremarkable except as noted in HPI and below PFSH Medical History Alcoholism (Chronic) Chronic vertigo (Acute) Impairment of balance (Acute) Tobacco abuse (Acute) Surgical History No significant past surgical history (Acute) Family History Maternal Grandfather Alcohol abuse Maternal Uncle Alcohol abuse Social History Smoking/Tobacco Use Status: Current every day Tobacco Type: cigarettes Alcohol Intake: current Alcohol Intake frequency: 3 or more drinks per day Alcohol type: hard liquor Drug use: Rarely Substance use type: marijuana Do you feel safe at home: Yes Do you feel safe in your relationship?: Yes Exam Narrative Exam Narrative: 1.Const: Well-nourished, Well-developed, appearing stated age 2.Eyes: PERRL, no conjunctival injection, and symmetrical lids. 3.ENT: Atraumatic external nose and ears. Moist MM. Neck: Symmetric, trachea midline, No thyromegaly. 4.CVS: +S1/S2, No murmurs or gallops. Peripheral pulses 2+ and equal in all extremities. Brisk capillary refill in all extremities. Radial pulses equal bilaterally 5.RESP: Unlabored respiratory effort. Clear to auscultation bilaterally. No wheezes rales or rhonchi 6.GI: Soft, Nontender/Nondistended, No hepatosplenomegaly. No guarding or rebound. 7.MSK: Normocephalic/Atraumatic, Extremities w/o deformity or ttp No cyanosis or clubbing, Normal movement of all extremities 8.Skin: Warm, Dry. No rashes or lesions. 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 Sensation grossly intact, no focal neurologic deficits. All 6 cardinal planes of vision are fully intact. No evidence of rotatory or vertical nystagmus. The patient demonstrated a normal [id number], good dexterity. There was no evidence of dysdiadochokinesia. There was no wide-based gait however he did appear notably unsteady with ambulation. Fzzt-iy-ernj testing was normal. Sensation was intact bilaterally as well as muscle strength bilaterally for all extremities. Patient was able to verbalize butter cup with no slurring, or miss pronunciation. 10.Psych: (AAO) x3. Appropriate mood and affect Course Vital Signs Vital signs: Vital Signs Temperature 36.8 C 03/05/20 04:35 Pulse 98 H 03/05/20 04:35 Respiratory Rate 18 03/05/20 04:35 Blood Pressure 176/99 H 03/05/20 04:35 Pulse Oximetry 98 03/05/20 04:35 Temperature 36.8 C 03/05/20 04:35 Temperature Source Temporal Artery Scan 03/05/20 04:35 Pulse 98 H 03/05/20 04:35 Respiratory Rate 18 03/05/20 04:35 Respiratory Effort 03/05/20 04:43 Blood Pressure 176/99 H 03/05/20 04:35 Blood Pressure Position Supine 03/05/20 04:35 Pulse Oximetry 98 03/05/20 04:35 Oxygen Delivery Method Room Air 03/05/20 04:35 Oxygen Flow Rate 0 03/05/20 04:35 Pain Level 0 03/05/20 04:35
[2020-03-05] MEDS: Normal Saline 1,000 ML 1000 ML IV ×2 (04:49→05:41)
[2020-03-05] MEDS: LORazepam 2 MG/ML VIAL 1 MG IVP (04:50)
[2020-03-05 05:03] LABS: BE (Venous) -2.3 mmol/L (-3-3); HCO3 (Venous) 22 mmol/L (22-28); O2 Sat (Venous) 96 % (70-80); TCO2 (Venous) 19 mmol/L (22-29); pCO2 (Venous) 30 mm/Hg (34-47); pH (Venous) 7.46 (7.35-7.45); pO2 (Venous) 80 mm/Hg (28-44)
[2020-03-05 05:06] LABS: Abs Immature Grans 0.03 k/cumm (0.0-0.09); Absolute Basophil Count 0.08 k/cumm (0.0-0.2); Absolute Eosinophil Count 0.15 k/cumm (0.0-0.7); Absolute Lymphocyte Count 1.72 k/cumm (1.2-3.4); Absolute Monocyte Count 0.46 k/cumm (0.11-0.7); Absolute Neutrophil Count 4.07 k/cumm (1.2-6.7); Basophils % 1.2; Eosinophils % 2.3; HCT 43.8 % (40.0-50.0); HGB 15.5 g/dL (13.5-17.5); Immature Grans % 0.5 %; Lymphocytes % 26.4; Mean Corp. HGB Concentration 35.4 g/dL (32.0-36.0); Mean Corpuscular Volume 98.9 fL (80-95); Monocytes % 7.1; Neutrophils % 62.5; Platelet Count 172 x1000/uL (130-400); RBC 4.43 m/cumm (4.50-6.00); White Blood Cell Count 6.51 k/cumm (4.4-10.8)
[2020-03-05 05:22] LABS: Prothrombin Time 9.9 sec (9.3-11.0)
[2020-03-05 05:27] LABS: ALT 216 U/L (16-63); AST 257 U/L (15-37); Albumin 4.2 g/dL (3.4-5.0); Alkaline Phosphatase 97 U/L (46-116); Anion Gap 18.8 mmol/L (3-11); BUN 8 mg/dL (7-18); Bilirubin, Total 0.5 mg/dL (0.2-1.0); CO2 21.2 mmol/L (21.0-32.0); CREATININE 0.83 mg/dL (0.70-1.30); Calcium 10.5 mg/dL (8.5-10.1); Chloride 96 mmol/L (98-107); ETHANOL BLOOD 71.2 mg/dL (<3); Glucose 141 mg/dL (74-106); Lipase 1385 U/L (73-393); Potassium 3.3 mmol/L (3.5-5.1); Sodium 136 mmol/L (136-145); TSH (W/Ref FT4) 2.19 uIU/mL (0.36-3.74); Total Protein 8.8 g/dL (6.4-8.2)
[2020-03-05 05:29] LABS: Troponin I < 0.05 ng/mL (<0.06)
[2020-03-05 05:34] LABS: D-Dimer 947 ng/mlFEU (<500)
--- NOTE | 2020-03-05 05:44 | DI.RAD_ITS ---
EXAM: XR CHEST 2V PA LATERAL CLINICAL HISTORY: sob TECHNIQUE: COMPARISON: CR,XR XR PORTABLE CHEST AP from 10/18/2019 FINDINGS: Note is made of a Holter monitor overlying the chest. The heart is not enlarged. The lungs are macario r. No pleural effusion seen. IMPRESSION: Unremarkable examination of chest
--- NOTE | 2020-03-05 05:46 | DI.VRAD_ITS ---
PROCEDURE INFORMATION: Exam: XR Chest, 2 Views Exam date and time: 03/05/2020 5:32 AM Age: 44 years old Clinical indication: Shortness of breath; Additional info: Holter moniter in place, unable to remove it for the exam TECHNIQUE: Imaging protocol: XR of the chest Views: 2 views. COMPARISON: CR XR PORTABLE CHEST AP 10/18/2019 10:05 PM FINDINGS: Lungs: Mild chronic interstitial prominence. No consolidation. Pleural space: No pleural effusion. No pneumothorax. Heart/Mediastinum: Unremarkable. No cardiomegaly. Bones/joints: Unremarkable. Overlying monitor noted IMPRESSION: No acute findings. Dictated and Authenticated by: Onel Shields MD. Ordering:IFEANYI Allen MD
[2020-03-05] MEDS: Meclizine 25 MG TAB PO (05:50)
[2020-03-05] MEDS: chlordiazePOXIDE 25 MG CAP 50 MG PO (06:02)
--- NOTE | 2020-03-05 06:18 | DI.CT_ITS ---
EXAM: CT HEAD WO CLINICAL HISTORY: profound vertigo TECHNIQUE: COMPARISON: No exams were available for comparison FINDINGS: Noncontrast cranial CT was performed. There is moderate cerebral atrophy particularly in the frontal regions, unusual in this age group. There is no evidence of acute intracranial hemorrhage, mass eff ect, or midline shift. The orbital and temporal bone structures appear intact. Visualized mastoid air cells and paranasal s inuses are well aerated. IMPRESSION: Cerebral atrophy which is abnormal in this age group. No evidence of acute process.
--- NOTE | 2020-03-05 06:45 | DI.VRAD_ITS ---
PROCEDURE INFORMATION: Exam: CT Head Without Contrast Exam date and time: 03/05/2020 5:59 AM Age: 44 years old Clinical indication: Other: Profound vertigo TECHNIQUE: Imaging protocol: Computed tomography of the head without contrast. Radiation optimization: All CT scans at this facility use at least one of these dose optimization techniques: automated exposure control; mA and/or kV adjustment per patient size (includes targeted exams where dose is matched to clinical indication); or iterative reconstruction. COMPARISON: No relevant prior studies available. FINDINGS: Brain:Moderate volume loss No hemorrhage.Unremarkable white matter. No mass effect. Ventricles: Normal. No ventriculomegaly. Bones/joints: Unremarkable. No acute fracture. Sinuses: Minimal fluid versus mucosal thickening in the posterior left ethmoid air cells. Minimal mucosal thickening in the inferior frontal sinuses. Mastoid air cells: Visualized mastoid air cells are well aerated. Soft tissues: Unremarkable. IMPRESSION: No acute intracranial hemorrhage Question minimal left ethmoid sinusitis Dictated and Authenticated by: Onel Shields MD. Ordering:IFEANYI Allen MD
--- NOTE | 2020-03-05 07:13 | NUR.NOTE ---
Nursing Note: Referral for follow up to PCP faxed. Tita Tracy.
--- NOTE | 2020-03-30 14:49 | W.CARDEVENT ---
Date of service: 03/30/20 Time of Service: 14:49 Cardiac Event Recorder Referring Provider:: Mirian Indications:: Syncope Cardiac Event Note: There is a 30-day event monitor ordered for indication of syncope. ?The patient was in normal sinus rhythm for the majority recording with an average heart rate of 90 bpm. ?There were no automatically detected events. ?There were 16 manually triggered events which were all associated with sinus rhythm or sinus tachycardia. ?There are no episodes of atrial fibrillation, no pauses greater than 3 seconds no evidence of high degree heart block.
== END 2020-03-05 07:12 | disposition home or self-care (01) ==
PROVIDERS: Emergency Provider Student in an Organized Health Care Education/Training Program; PCP Nurse Practitioner Family
DX: F10.230 Alcohol dependence with withdrawal, uncomplicated (principal); Y90.3 Blood alcohol level of 60-79 mg/100 ml; R25.1 Tremor, unspecified; R42 Dizziness and giddiness; K86.0 Alcohol-induced chronic pancreatitis
CPT/HCPCS: 36415; 80053; 82805; 83690; 93005; 96361; 96374; 99285; 70450; 71046; 80320; 84443; 84484; 85025; 85379; 85610; 85730; 93010; J2060

== ENCOUNTER 2020-04-09 10:44 | Inpatient (IN) | payer MEDICAID, SELFPAY ==
[2020-04-09] VITALS (50 sets, daily range): BP systolic 80–131; BP diastolic 54–92; PULSE 63–103; RESP 12–25; TEMP 36.2–36.7; O2SAT 90–99
--- NOTE | 2020-04-09 10:45 | RT.EKG_ITS ---
APPROVED REPORT Exam: Resting ECG Patient Location: E HR:92 bpm ECG Measurements Heart Rate 92 AXIS AK 175 P 19 QRSd 93 QRS 28 QT 348 T 47 QTc 431 Conclusion Sinus rhythm...normal P axis, V-rate 60- 99 Normal Electrocardiogram
--- NOTE | 2020-04-09 11:15 | ED.GENADUL_ITS ---
Discharge Plan Disposition Patient Disposition: HOME Condition: Improving Discharge Details Chief Complaint: ETOHWithdr Clinical Impression: Alcohol withdrawal, Hypokalemia, Chest pain Admit Date/Time: 04/09/20 14:28 Admit Provider: Rip Montiel Attending Provider: Rip Montiel Primary Care Provider: Jerrica Gomes ED Provider: Hamilton Tavera Hospital Course Hospital Course: 45-year-old male with a history of alcoholism presented with atypical chest pain was ruled out for ACS. He has had previous admissions in which she has had acute alcohol withdrawal with chest pain and has had previous negative cardiac work-up. Patient has a history of alcoholic pancreatitis. He presented to the hospital on April 10, 2020 after discontinuing any alcohol on Monday, April 06, 2020. He desires to get sober and is trying to get into an acute i npatient alcohol treatment program at [facility]. He started having symptoms of alcohol withdrawal on and so he drank half a pint of alcohol and presented to the emergency department. He was treated with 1 mg of Ativan in the emergency department and was admitted for treatment of acute alcohol withdrawal. Dr. Escalante her admitted him on April 09 and put him on program doses of Serax 10 mg p.o. 4 times daily. He was also placed on hydroxyzine 50 mg nightly for sleep and given a NicoDerm patch and placed on potassium replacement as he was found to be hypokalemic with a potassium level of 3.3. His COVID test was negative his urine toxicology screen was negative for drugs of abuse with the exception of a blood alcohol level of 223. His CBC was remarkable for macrocytic changes. Hemoglobin is 14 g on admission dropped down to 12.5 g after IV fluid hydration. Platelet counts 124,000. Chest x-ray was taken on admission and showed no acute pulmonary findings. ECG on admission showed normal sinus rhythm with no acute ischemic ST or T wave changes he has repolarization ST changes. Of note, the patient had a pancreatitis on admission w/ elevated lipase of 1063 which quickly declined to 639 overnight. At the time of discharge he was eating a regular diet w/out any nausea, vomiting nor any abdominal pain. I think as long as he is abstinent of alcohol he should do fine. No abdominal imaging was performed during this admission. Since being hospitalized his CIWA scores have been quite low except for the initial score of 19 on admission. The rest of his CIWA scoring has been 0-4. He knows this could be a couple more days yet before he can get into [facility] and he is desiring to return home. As the patient is not showing significant withdrawal symptoms, i.e., no nausea or vomiting no tachycardia no tremulousness and no diaphoresis and no hallucinations and no seizures I think he could be safely discharged on a short course of Serax. This was the plan conveyed to me by Dr. Montiel. Care management is working with the patient to get him admitted to [facility] for treatment of his chronic alcoholism. I expressed to the patient explicitly that he cannot drink while taking the Serax and he should not drive or operate any dangerous equipment. He understands the same. 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 His girlfriend can pick him up and bring him home. Discharge Data Discharge Date/Time-TO BE ENTERED AT DEPARTURE: 04/09/20 14:30 Medical Decision Making 45-year-old male with history of alcoholism, here with alcohol withdrawal having deliberately stopped drinking 4 days ago, he did have whiskey prior to arrival today. Patient is currently in mild to moderate withdrawal. Ativan 1 mg IV given for withdrawal and nausea. Patient also with chest pain earlier today, now resolved. Consider ACS. Screening ECG nondiagnostic. Please see report. Consider pulmonary embolism given associated shortness of breath, patient is low risk by Wells criteria. Labs reviewed and initial troponin negative. D-dimer negative. Patient does yin ve anion gap acidosis which I suspect is secondary to alcoholic ketosis versus starvation ketosis. Hypokalemia noted. I will give potassium 20 mEq orally and 20 mEq IV. Patient received banana bag with multivitamin and thiamine. Magnesium noted to be 1.7. I will give magnesium oxide 4 mg and also magnesium and banana bag. Chest x-ray reviewed and interpreted by radiology: No acute disease noted. 12:43 -- Plan to admit for chest pain rule out and for alcohol withdrawal with electrolyte abnormalities. I called and spoke with Dr. Montiel who will admit the patient. Care transition to Dr. Montiel. HPI General Mode of arrival: ambulatory . Date/Time Provider Initiated Documentation: 04/09/20 11:14 . Limitations to Documentation: other . Information obtained by: patient . HPI Narrative: 45yo m with history of alcoholism, pancreatitis, syncope (admitted last month for this and had negative cardiac monitoring), here with chief complaint withdrawal. Patient notes that he has been deliberately detoxing since Monday. Patient notes that he had some chest discomfort Monday that then resolved. Patient states today he had recurrent chest pain, localized central and left anterior chest. Pain was sharp. 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 He currently has no chest pain. He does have some mild shakiness. Symptoms are currently moderate as he did drink half a pint of whiskey prior to arrival this morning. Patient does note some associated shortness of breath and dyspnea on exertion today. Related Data Home Medications Medication Instructions Recorded Confirmed folic acid 1 mg PO DAILY #10 tab 04/11/20 magnesium oxide 500 mg PO DAILY #10 tab 04/11/20 multivitamin [Multiple Vitamins] 1 tab PO DAILY #10 tab 04/11/20 oxazepam 10 mg PO TID #6 cap 04/11/20 potassium chloride [Klor-Con M20] 20 meq PO DAILY #10 tab 04/11/20 thiamine mononitrate (vit B1) 100 mg PO DAILY #10 tab 04/11/20 [Vitamin B-1 (mononitrate)] Previous Rx's Medication Instructions Recorded folic acid 1 mg PO DAILY #10 tab 04/11/20 magnesium oxide 500 mg PO DAILY #10 tab 04/11/20 multivitamin [Multiple Vitamins] 1 tab PO DAILY #10 tab 04/11/20 oxazepam 10 mg PO TID #6 cap 04/11/20 potassium chloride [Klor-Con M20] 20 meq PO DAILY #10 tab 04/11/20 thiamine mononitrate (vit B1) 100 mg PO DAILY #10 tab 04/11/20 [Vitamin B-1 (mononitrate)] Allergies Allergy/AdvReac Type Severity Reaction Status Date / Time No Known Allergies Allergy Unverified 04/09/20 11:04 General Stated Complaint: ETOHWithdr SARAH: 2 Review of Systems All systems reviewed & are unremarkable except as noted in HPI and below Constitutional Constitutional: Denies fever(s) Cardiovascular Cardiovascular: Reports as per HPI Respiratory Respiratory: Reports as per HPI Gastrointestinal Gastrointestinal: Denies abdominal pain and Reports nausea Musculoskeletal Comments: Myalgias [facility] Medical History Alcoholism (Inactive) Chronic vertigo (Acute) Impairment of balance (Acute) Tobacco abuse (Acute) Surgical History No significant past surgical history (Acute) Family History Maternal Grandfather Alcohol abuse Maternal Uncle Alcohol abuse Social History Smoking/Tobacco Use Status: Current every day Tobacco Type: cigarettes Alcohol Intake: current Alcohol Intake frequency: 3 or more drinks per day Alcohol type: beer and hard liquor Drug use: Rarely Substance use type: marijuana Do you feel safe at home: Yes Do you feel safe in your relationship?: Yes Exam Const General: cooperative HENMT Head: normocephalic and atraumatic Mouth: moist mucous membranes Eyes Conjunctivae: normal conjunctivae Sclera: normal sclerae Neck Neck: trachea midline and supple Resp Auscultation: clear to auscultation bilaterally, no rales, no rhonchi and no wheezes Cardio Jugular venous pressure: no JVD Rate: regular rate and not tachycardic Rhythm: regular rhythm GI Palpation: soft, not firm, no guarding, no masses, not rigid and tender (Minimal diffuse) with no rebound tenderness Skin General skin exam: no rashes or lesions noted Neuro General: patient alert, patient awake, patient oriented x3 and tone normal Motor: tremor (Minimal bilateral hands) Extrem General: no edema Psych Appearance: grossly normal Mental Status: mental status grossly normal Course Vital Signs Vital signs: Vital Signs Temperature 36.6 C 04/09/20 10:45 Pulse 103 H 04/09/20 10:45 Respiratory Rate 18 04/09/20 10:45 Blood Pressure 131/92 H 04/09/20 10:45 Pulse Oximetry 96 04/09/20 10:45 Temperature 36.6 C 04/09/20 10:45 Temperature Source Skin 04/09/20 10:45 Pulse 103 H 04/09/20 10:45 Respiratory Rate 18 04/09/20 10:45 Respiratory Effort 04/09/20 11:05 Blood Pressure 131/92 H 04/09/20 10:45 Pulse Oximetry 96 04/09/20 10:45 Oxygen Delivery Method Room Air 04/09/20 10:45 Oxygen Flow Rate 0 04/09/20 10:45 Pain Level 5 04/09/20 10:45
--- NOTE | 2020-04-09 11:15 | DI.RAD_ITS ---
EXAM: XR CHEST 2V PA LATERAL CLINICAL HISTORY: chest pain last night, SOB TECHNIQUE: 2D digital imaging was performed. COMPARISON: No exams were available for comparison FINDINGS: MEDIASTINUM: Normal. HEART: Normal. PULMONARY VASCULATURE: Normal. LUNGS: Clear. PLEURAL SPACE: No pleural effusion or pneumothorax. BONE:Normal. IMPRESSION: No acute pulmonary findings. DATA REPOSITORY: RADIATION DOSE DELIVERED:
[2020-04-09] MEDS: LORazepam 2 MG/ML VIAL 1 MG IVP (11:25)
[2020-04-09] MEDS: Normal Saline Flush 10 ML SYR IVP (11:25)
[2020-04-09] MEDS: Ondansetron 4 MG/2 ML VIAL IM (11:32)
[2020-04-09 11:33] LABS: Abs Immature Grans 0.04 10^3/uL (0.0-0.06); Absolute Basophil Count 0.06 10^3/uL (0.0-0.2); Absolute Eosinophil Count 0.26 10^3/uL (0.0-0.7); Absolute Lymphocyte Count 2.82 10^3/uL (1.2-3.4); Absolute Monocyte Count 0.85 10^3/uL (0.1-0.8); Basophils % 0.8; Eosinophils % 3.5; HCT 39.7 % (40.0-50.0); Immature Grans % 0.5; Lymphocytes % 37.5; MCH 35.3 pg (27.0-33.0); MCHC 35.3 % (32.0-36.0); MPV 10.4 fL (8.0-11.0); Monocytes % 11.3; Neutrophils % 46.4; Nucleated RBC 0 %; Platelet Count 141 10^3/uL (130-400); RBC 3.97 10^6/uL (4.36-5.78); RDW 11.9 % (11.8-14.1); RDW-SD 43.4 fL; WBC 7.53 10^3/uL (4.4-10.8)
[2020-04-09 11:49] LABS: ALT 98 U/L (16-63); AST 113 U/L (15-37); Albumin 3.6 g/dL (3.4-5.0); Alkaline Phosphatase 75 U/L (46-116); Anion Gap 16.3 mmol/L (3-11); BUN 5 mg/dL (7-18); Bilirubin, Total 0.4 mg/dL (0.2-1.0); CO2 20.7 mmol/L (21.0-32.0); CREATININE 0.58 mg/dL (0.70-1.30); Calcium 9.2 mg/dL (8.5-10.1); Chloride 99 mmol/L (98-107); ETHANOL BLOOD 223.9 mg/dL (<3); Glucose 120 mg/dL (74-106); Magnesium 1.7 mg/dL (1.8-2.4); Sodium 136 mmol/L (136-145); Total Protein 7.6 g/dL (6.4-8.2)
[2020-04-09 11:50] LABS: Potassium 2.8 mmol/L (3.5-5.1)
[2020-04-09 12:01] LABS: Lipase 1063 U/L (73-393)
[2020-04-09 12:08] LABS: Troponin I < 0.05 ng/mL (<0.06)
[2020-04-09 12:15] LABS: D-Dimer 183 ng/mlFEU (<500)
[2020-04-09] MEDS: MAGNESIUM SULFATE 8.12 MEQ, MULTIVITAMIN 10 ML, THIAMINE 100 MG, FOLIC ACID 1 MG in Nor... 168.867 MG IV (12:19)
[2020-04-09] MEDS: Magnesium Oxide 400 MG TAB PO (12:28)
[2020-04-09] MEDS: POTASSIUM CHLORIDE 20 MEQ/100 ML BAG 50 MEQ IVPB (12:28)
[2020-04-09] MEDS: Potassium Chloride 20 MEQ TABCR PO (13:29)
--- NOTE | 2020-04-09 14:00 | RT.EKG_ITS ---
APPROVED REPORT Exam: Resting ECG Patient Location: E HR:86 bpm ECG Measurements Heart Rate 86 AXIS OK 61 P 0 QRSd 92 QRS 39 QT 378 T 50 QTc 452 Conclusion Sinus rhythm...normal P axis, V-rate 60- 99 Normal Electrocardiogram
[2020-04-09 14:39] LABS: Troponin I < 0.05 ng/mL (<0.06)
[2020-04-09 14:40] LABS: *AMPHETAMINES SCREEN URINE Negative (Negative); *BARBITURATES SCREEN URINE Negative (Negative); *BENZODIAZEPINES SCREEN URINE Negative (Negative); Cannabinoids THC Negative (Negative); Cocaine Screen,Urine Negative (Negative); METHADONE URINE SCREEN Negative (Negative); OPIATES URINE SCREEN Negative (Negative)
[2020-04-09 14:42] LABS: Tricyclic Antidepressants Negative (Negative)
[2020-04-09] MEDS: Enoxaparin 40 MG/0.4 ML SYR SC (14:45)
[2020-04-09] MEDS: PHENobarbital 130 MG/ML VIAL IVP (14:50)
[2020-04-09] MEDS: Oxazepam 10 MG CAP PO ×2 (15:50→22:17)
[2020-04-09 16:09] LABS: BUN 5 mg/dL (7-18); CREATININE 0.61 mg/dL (0.70-1.30); Calcium 8.9 mg/dL (8.5-10.1); Chloride 103 mmol/L (98-107); Glucose 131 mg/dL (74-106); Potassium 3.7 mmol/L (3.5-5.1); Sodium 139 mmol/L (136-145)
--- NOTE | 2020-04-09 16:34 | HPE_ITS ---
Date of service: 04/09/20 Time of Service: 16:35 Assessment and Plan Assessment and plan (1) Chest pain: Status: Acute Assessment and plan: Resolved w/o intervention. Troponin neg x 2. Ekg w/o ischemic changes. Qualifiers: Chest pain type: precordial pain Qualified Code(s): R07.2 - Precordial pain (2) Tobacco abuse: Status: Acute Assessment and plan: Nicoderm patch. (3) Alcohol withdrawal: Status: Acute Assessment and plan: CIWA protocol Lorazepam prn for CIWA scoring Phenobarbital; IV 130mg x 1 Serax 10mg po Q6H Qualifiers: Complication of substance-induced condition: uncomplicated Qualified Code(s): F10.230 - Alcohol dependence with withdrawal, uncomplicated (4) Pancreatitis: Status: Acute Assessment and plan: Requested normal diet; tolerating. Questionable chronic. Qualifiers: Chronicity: acute Pancreatitis type: alcohol induced Acute pancreatitis complication: unspecified Qualified Code(s): K85.20 - Alcohol induced acute pancreatitis without necrosis or infection History of Present Illness History of Present Illness Chief Complaint: alcohol withdrawal Narrative: This is a 45 yo male with h/o Etoh abuse syndrome, previous admissions for withdrawal, pancreatitis, syncope (s/p negative cardiac monitoring). He endorses desiring to enter the alcohol treatment program at [facility]. He stopped drinking on Monday of this week, but then starting having withdrawal symptoms on the day of admission () so drank 1/2 pint of alcohol and presented to the ED. In the ED he was given 1 mg IV ativan. He endorsed central to L chest pain described as sharp. This occurred on Monday then again the night before admission. No SOA, cough. EKG negative for ischemic findings. Troponin neg x 2. D-dimer negative. CXR negative for acute findings. Lipase 1063. Review of Systems All systems reviewed & are unremarkable except as noted in HPI and below PFSH Medical History Alcoholism (Inactive) Chronic vertigo (Acute) Impairment of balance (Acute) Tobacco abuse (Acute) Surgical History No significant past surgical history (Acute) Family History Maternal Grandfather Alcohol abuse Maternal Uncle Alcohol abuse Social History Smoking/Tobacco Use Status: Current every day Tobacco Type: cigarettes Alcohol Intake: current Alcohol Intake frequency: 3 or more drinks per day Alcohol type: beer and hard liquor Drug use: Rarely Substance use type: marijuana Do you feel safe at home: Yes Do you feel safe in your relationship?: Yes Meds Home Medications and Allergies Home Medications Medication Instructions Recorded Confirmed Type Unknown [No Known Home Meds] 04/09/20 04/09/20 History Allergies Allergy/AdvReac Type Severity Reaction Status Date / Time No Known Allergies Allergy Unverified 04/09/20 11:04 Exam Const General: no acute distress Nutritional Appearance: thin Orientation: alert and oriented x3 Eyes Sclera: sclerae normal Pupils: PERRL Resp Effort & Inspection: normal respiratory effort Auscultation: clear to auscultation bilaterally Cardio Rate: regular rate Rhythm: regular rhythm Heart Sounds: S1 normal and S2 normal GI Inspection: normal to inspection Palpation: soft and tender (Mild LUQ) Auscultation: normal bowel sounds Neuro General: moves all extremities and no focal motor deficits Cognition: normal cognition Speech: speech normal Extrem General: no clubbing, cyanosis or edema Psych Appearance: grossly normal Speech and Movement: speech and movement normal Mood: euthymic mood Affect: normal affect Attitude: cooperative Results Labs Result diagrams: 04/09/20 11:05 04/09/20 15:44 Labs: Laboratory Results - last 24 hr 04/09/20 04/09/20 04/09/20 11:05 11:05 11:05 WBC 7.53 RBC 3.97 L Hgb 14.0 Hct 39.7 L MCV 100.0 H MCH 35.3 H MCHC 35.3 RDW 11.9 Plt Count 141 MPV 10.4 Immature Gran % 0.5 Neutrophils % 46.4 Lymphocytes % 37.5 Monocytes % 11.3 Eosinophils % 3.5 Basophils % 0.8 Nucleated RBC % 0 Absolute Neutrophils 3.50 Absolute Lymphocytes 2.82 Absolute Monocytes 0.85 H Absolute Eosinophils 0.26 Absolute Basophils 0.06 D-Dimer Sodium 136 Potassium 2.8 L* Chloride 99 Carbon Dioxide 20.7 L Anion Gap 16.3 H BUN 5 L Creatinine 0.58 L Estimated GFR/1.73 m2 >= 60.00 Glucose 120 H Calcium 9.2 Magnesium 1.7 L Total Bilirubin 0.4 AST 113 H ALT 98 H Alkaline Phosphatase 75 Troponin I < 0.05 Total Protein 7.6 Albumin 3.6 Lipase Urine Opiates Screen Urine Methadone Screen Ur Barbiturates Screen Ur Tricyclics Screen Ur Amphetamines Screen U Benzodiazepines Scrn Urine Cocaine Screen Ur THC Screen Ethyl Alcohol 223.9 04/09/20 04/09/20 04/09/20 11:05 11:05 13:41 WBC RBC Hgb Hct MCV MCH MCHC RDW Plt Count MPV Immature Gran % Neutrophils % Lymphocytes % Monocytes % Eosinophils % Basophils % Nucleated RBC % Absolute Neutrophils Absolute Lymphocytes Absolute Monocytes Absolute Eosinophils Absolute Basophils D-Dimer 183 Sodium Cancelled Potassium Cancelled Chloride Cancelled Carbon Dioxide Cancelled Anion Gap Cancelled BUN Cancelled Creatinine Cancelled Estimated GFR/1.73 m2 Cancelled Glucose Cancelled Calcium Cancelled Magnesium Total Bilirubin AST ALT Alkaline Phosphatase Troponin I Total Protein Albumin Lipase 1063 H Urine Opiates Screen Urine Methadone Screen Ur Barbiturates Screen Ur Tricyclics Screen Ur Amphetamines Screen U Benzodiazepines Scrn Urine Cocaine Screen Ur THC Screen Ethyl Alcohol 04/09/20 04/09/20 04/09/20 14:15 14:23 15:44 WBC RBC Hgb Hct MCV MCH MCHC RDW Plt Count MPV Immature Gran % Neutrophils % Lymphocytes % Monocytes % Eosinophils % Basophils % Nucleated RBC % Absolute Neutrophils Absolute Lymphocytes Absolute Monocytes Absolute Eosinophils Absolute Basophils D-Dimer Sodium 139 Potassium 3.7 D Chloride 103 Carbon Dioxide 25.0 Anion Gap 11.0 BUN 5 L Creatinine 0.61 L Estimated GFR/1.73 m2 >= 60.00 Glucose 131 H Calcium 8.9 Magnesium Total Bilirubin AST ALT Alkaline Phosphatase Troponin I < 0.05 Total Protein Albumin Lipase Urine Opiates Screen Negative Urine Methadone Screen Negative Ur Barbiturates Screen Negative Ur Tricyclics Screen Negative Ur Amphetamines Screen Negative U Benzodiazepines Scrn Negative Urine Cocaine Screen Negative Ur THC Screen Negative Ethyl Alcohol Last Vital Signs Temp 36.2 C L 04/09/20 14:40 Pulse 90 04/09/20 15:16 Resp 12 04/09/20 15:16 BP 115/74 04/09/20 15:16 Pulse Ox 98 04/09/20 15:16 COVID-19 Screening Have you,or household,traveled outside [place] in last 14 days?: Yes Had IN PERSON contact w/suspected or confirmed C-19 person: No
[2020-04-09] MEDS: Nicotine 21 MG/24 HR PATCH TD (18:03)
[2020-04-09] MEDS: Normal Saline 1,000 ML 100 ML IV (18:59)
[2020-04-09 21:46] LABS: COVID-19 RT-PCR UVMMC Result Negative (Negative)
[2020-04-10] VITALS (13 sets, daily range): BP systolic 119–135; BP diastolic 68–87; PULSE 51–88; RESP 16–20; TEMP 36.5–36.8; O2SAT 93–100
[2020-04-10] MEDS: Oxazepam 10 MG CAP PO ×4 (04:05→21:10)
[2020-04-10] MEDS: Normal Saline 1,000 ML 100 ML IV ×2 (04:41→14:26)
[2020-04-10 06:29] LABS: Lipase 639 U/L (73-393); Magnesium 1.8 mg/dL (1.8-2.4)
[2020-04-10 06:30] LABS: Abs Immature Grans 0.02 10^3/uL (0.0-0.06); Absolute Basophil Count 0.04 10^3/uL (0.0-0.2); Absolute Eosinophil Count 0.18 10^3/uL (0.0-0.7); Absolute Lymphocyte Count 2.44 10^3/uL (1.2-3.4); Absolute Monocyte Count 0.52 10^3/uL (0.1-0.8); Absolute Neutrophil Count 2.69 10^3/uL (1.2-6.7); Basophils % 0.7; Eosinophils % 3.1; HCT 36.8 % (40.0-50.0); HGB 12.5 g/dL (13.5-17.5); Immature Grans % 0.3; Lymphocytes % 41.4; MCH 34.8 pg (27.0-33.0); MCV 102.5 fL (80-95); MPV 10.6 fL (8.0-11.0); Monocytes % 8.8; Neutrophils % 45.7; Nucleated RBC 0 %; Platelet Count 124 10^3/uL (130-400); RBC 3.59 10^6/uL (4.36-5.78); RDW 11.8 % (11.8-14.1); RDW-SD 45.1 fL; WBC 5.89 10^3/uL (4.4-10.8)
[2020-04-10 06:36] LABS: ALT 74 U/L (16-63); AST 60 U/L (15-37); Alkaline Phosphatase 52 U/L (46-116); Anion Gap 12.1 mmol/L (3-11); BUN 4 mg/dL (7-18); Bilirubin, Total 0.7 mg/dL (0.2-1.0); CO2 21.9 mmol/L (21.0-32.0); CREATININE 0.59 mg/dL (0.70-1.30); Calcium 8.5 mg/dL (8.5-10.1); Chloride 105 mmol/L (98-107); Glucose 99 mg/dL (74-106); Potassium 3.3 mmol/L (3.5-5.1); Sodium 139 mmol/L (136-145); Total Protein 6.4 g/dL (6.4-8.2)
[2020-04-10] MEDS: Thiamine 100 MG TAB PO (09:15)
[2020-04-10] MEDS: Folic Acid 1 MG TAB PO (09:16)
[2020-04-10] MEDS: Nicotine 21 MG/24 HR PATCH TD (09:17)
[2020-04-10] MEDS: Multivitamin TAB 1 TAB PO (09:17)
--- NOTE | 2020-04-10 10:56 | W.PM.PROGNOT ---
Date of Service Date of service: 04/10/20 Time of Service: 10:21 Assessment and Plan Assessment and plan (1) Hypokalemia: Status: Acute Assessment and plan: K 3.3 Oral replacement. Monitor (2) Alcohol withdrawal: Status: Acute Assessment and plan: No CIWA scoring overnight Cont scheduled Serax. Monitor. Likely home tomorrow CM assisting in his desire for inpt treatment. He states his sister has contact [facility] and may be on a waiting list; he is unsure of details. Qualifiers: Complication of substance-induced condition: uncomplicated Qualified Code(s): F10.230 - Alcohol dependence with withdrawal, uncomplicated (3) Pancreatitis: Status: Acute Assessment and plan: Lipase improved. No abd pain. Tolerating diet. Qualifiers: Chronicity: acute Pancreatitis type: alcohol induced Acute pancreatitis complication: unspecified Qualified Code(s): K85.20 - Alcohol induced acute pancreatitis without necrosis or infection Subjective Subjective Patient reports: no new complaints Interval history since last seen: Feels not quite as good as yesterday, but no SOA, CP, palpitations. No diaphoresis. No CIWA scoring that required medication overnight He endorses difficulty falling asleep and maintaining sleep on a chronic basis. Exam Const General: cooperative and no acute distress Nutritional Appearance: average body habitus Orientation: alert and oriented x3 Eyes Sclera: sclerae normal Pupils: PERRL Resp Effort & Inspection: normal respiratory effort Auscultation: clear to auscultation bilaterally Cardio Rate: regular rate Rhythm: regular rhythm Heart Sounds: S1 normal and S2 normal Psych Appearance: grossly normal Mental Status: mental status grossly normal Speech and Movement: speech and movement normal Mood: congruent mood Affect: blunted Attitude: cooperative Objective Objective Clinical Data: Abnormal lab results 04/09/20 04/09/20 04/09/20 Range/Units 11:05 11:05 11:05 RBC 3.97 L (4.36-5.78) 10^6/uL Hgb (13.5-17.5) g/dL Hct 39.7 L (40.0-50.0) % MCV 100.0 H (80-95) fL MCH 35.3 H (27.0-33.0) pg Plt Count (130-400) 10^3/uL Absolute Monocytes 0.85 H (0.1-0.8) 10^3/uL Potassium 2.8 L* (3.5-5.1) mmol/L Carbon Dioxide 20.7 L (21.0-32.0) mmol/L Anion Gap 16.3 H (3-11) mmol/L BUN 5 L (7-18) mg/dL Creatinine 0.58 L (0.70-1.30) mg/dL Glucose 120 H (74-106) mg/dL Magnesium 1.7 L (1.8-2.4) mg/dL AST 113 H (15-37) U/L ALT 98 H (16-63) U/L Albumin (3.4-5.0) g/dL Lipase 1063 H (73-393) U/L 04/09/20 04/10/20 04/10/20 Range/Units 15:44 06:04 06:04 RBC (4.36-5.78) 10^6/uL Hgb (13.5-17.5) g/dL Hct (40.0-50.0) % MCV (80-95) fL MCH (27.0-33.0) pg Plt Count (130-400) 10^3/uL Absolute Monocytes (0.1-0.8) 10^3/uL Potassium 3.3 L (3.5-5.1) mmol/L Carbon Dioxide (21.0-32.0) mmol/L Anion Gap 12.1 H (3-11) mmol/L BUN 5 L 4 L (7-18) mg/dL Creatinine 0.61 L 0.59 L (0.70-1.30) mg/dL Glucose 131 H (74-106) mg/dL Magnesium (1.8-2.4) mg/dL AST 60 H (15-37) U/L ALT 74 H (16-63) U/L Albumin 3.0 L (3.4-5.0) g/dL Lipase 639 H (73-393) U/L 04/10/20 Range/Units 06:04 RBC 3.59 L (4.36-5.78) 10^6/uL Hgb 12.5 L (13.5-17.5) g/dL Hct 36.8 L (40.0-50.0) % MCV 102.5 H (80-95) fL MCH 34.8 H (27.0-33.0) pg Plt Count 124 L (130-400) 10^3/uL Absolute Monocytes (0.1-0.8) 10^3/uL Potassium (3.5-5.1) mmol/L Carbon Dioxide (21.0-32.0) mmol/L Anion Gap (3-11) mmol/L BUN (7-18) mg/dL Creatinine (0.70-1.30) mg/dL Glucose (74-106) mg/dL Magnesium (1.8-2.4) mg/dL AST (15-37) U/L ALT (16-63) U/L Albumin (3.4-5.0) g/dL Lipase (73-393) U/L Vital Signs Temperature 36.8 C 04/10/20 09:34 Temperature Source Temporal Artery Scan 04/10/20 09:34 Pulse 88 04/10/20 09:34 Pulse 61 04/10/20 08:01 Respiratory Rate 19 04/10/20 08:01 Respiratory Effort Non-Labored 04/10/20 09:34 Respiratory Depth Normal 04/10/20 09:34 Respiratory Pattern Normal 04/10/20 09:34 Blood Pressure 119/77 04/10/20 09:34 Blood Pressure Mean 91 04/10/20 09:34 Blood Pressure Position Supine 04/10/20 09:34 Pulse Oximetry 94 L 04/10/20 09:34 Oxygen Delivery Method Room Air 04/10/20 09:34 Oxygen Flow Rate 0 04/10/20 09:34 Pain Level 1 04/10/20 09:34 Intake & Output 04/09/20 04/09/20 04/10/20 11:59 23:59 11:59 Intake Total 2012. / 2012. 970 / 970 Output Total 300 / 300 1000 / 1000 Balance 1713.2 / 1713.2 -30 / -30 Weight 70.307 kg 68.9 kg Intake: IV 1113.2 / 1113.2 970 / 970 Oral 900 / 900 Output: Urine 300 / 300 1000 / 1000 Other: Urine Color Dark Ama Yellow Urine Appearance Clear Clear Urine Odor None Normal Comment voided on commode with bm voiding qs in urinal Stool Occult Blood Negative Stool Size Large Stool Characteristics Soft Formed Brown Voiding Methods Bedside Commode Urinal Laboratory Results WBC 5.89 10^3/uL (4.4-10.8) 04/10/20 06:04 RBC 3.59 10^6/uL (4.36-5.78) L 04/10/20 06:04 Hgb 12.5 g/dL (13.5-17.5) L 04/10/20 06:04 Hct 36.8 % (40.0-50.0) L 04/10/20 06:04 MCV 102.5 fL (80-95) H 04/10/20 06:04 MCH 34.8 pg (27.0-33.0) H 04/10/20 06:04 MCHC 34.0 % (32.0-36.0) 04/10/20 06:04 RDW 11.8 % (11.8-14.1) 04/10/20 06:04 Plt Count 124 10^3/uL (130-400) L 04/10/20 06:04 MPV 10.6 fL (8.0-11.0) 04/10/20 06:04 Immature Gran % 0.3 04/10/20 06:04 Neutrophils % 45.7 04/10/20 06:04 Lymphocytes % 41.4 04/10/20 06:04 Monocytes % 8.8 04/10/20 06:04 Eosinophils % 3.1 04/10/20 06:04 Basophils % 0.7 04/10/20 06:04 Nucleated RBC % 0 % 04/10/20 06:04 Absolute Neutrophils 2.69 10^3/uL (1.2-6.7) 04/10/20 06:04 Absolute Lymphocytes 2.44 10^3/uL (1.2-3.4) 04/10/20 06:04 Absolute Monocytes 0.52 10^3/uL (0.1-0.8) 04/10/20 06:04 Absolute Eosinophils 0.18 10^3/uL (0.0-0.7) 04/10/20 06:04 Absolute Basophils 0.04 10^3/uL (0.0-0.2) 04/10/20 06:04 D-Dimer 183 ng/mlFEU (<500) 04/09/20 11:05 Sodium 139 mmol/L (136-145) 04/10/20 06:04 Potassium 3.3 mmol/L (3.5-5.1) L 04/10/20 06:04 Chloride 105 mmol/L (98-107) 04/10/20 06:04 Carbon Dioxide 21.9 mmol/L (21.0-32.0) 04/10/20 06:04 Anion Gap 12.1 mmol/L (3-11) H 04/10/20 06:04 BUN 4 mg/dL (7-18) L 04/10/20 06:04 Creatinine 0.59 mg/dL (0.70-1.30) L 04/10/20 06:04 Estimated GFR/1.73 m2 >= 60.00 (mL/min/1.73m2) 04/10/20 06:04 Glucose 99 mg/dL (74-106) 04/10/20 06:04 Calcium 8.5 mg/dL (8.5-10.1) 04/10/20 06:04 Magnesium 1.8 mg/dL (1.8-2.4) 04/10/20 06:04 Total Bilirubin 0.7 mg/dL (0.2-1.0) 04/10/20 06:04 AST 60 U/L (15-37) H 04/10/20 06:04 ALT 74 U/L (16-63) H 04/10/20 06:04 Alkaline Phosphatase 52 U/L (46-116) 04/10/20 06:04 Troponin I < 0.05 ng/mL (<0.06) 04/09/20 14:15 Total Protein 6.4 g/dL (6.4-8.2) 04/10/20 06:04 Albumin 3.0 g/dL (3.4-5.0) L 04/10/20 06:04 Lipase 639 U/L (73-393) H 04/10/20 06:04 Urine Opiates Screen Negative (Negative) 04/09/20 14:23 Urine Methadone Screen Negative (Negative) 04/09/20 14:23 Ur Barbiturates Screen Negative (Negative) 04/09/20 14:23 Ur Tricyclics Screen Negative (Negative) 04/09/20 14:23 Ur Amphetamines Screen Negative (Negative) 04/09/20 14:23 U Benzodiazepines Scrn Negative (Negative) 04/09/20 14:23 Urine Cocaine Screen Negative (Negative) 04/09/20 14:23 Ur THC Screen Negative (Negative) 04/09/20 14:23 Ethyl Alcohol 223.9 mg/dL (<3) 04/09/20 11:05 COVID-19 PCR Negative (Negative) 04/09/20 12:55 Nasopharyn COVID-19 PCR Not Applicable 04/09/20 12:55 Ref Test Perform Site [facility] lab 04/09/20 12:55
[2020-04-10] MEDS: Potassium Chloride 20 MEQ TABCR PO (11:30)
--- NOTE | 2020-04-10 11:36 | W.NUTRFU ---
Date of service: 04/10/20 Time of Service: 11:37 Nutritional Follow up NOTE: 45 year old male admitted into ICU for alcohol withdrawl. Meds include MVI, thiamin, folic acid. Following regular meal plan with excellent intake >75% of meals. BMI wnl, on higher end but has a 20 lbs weight loss noted per medical chart in last 12 months. Has hx of pancreatitis. Awaiting placement to rehab. will continue to follow. Time Spent in Nutritional Counseling and Treatment: 0
[2020-04-10] MEDS: LORazepam 1 MG TAB PO/SL (14:23)
[2020-04-10] MEDS: Enoxaparin 40 MG/0.4 ML SYR SC (15:27)
--- NOTE | 2020-04-10 15:44 | INITIAL_ITS ---
- If Service Date Differs Date of service: 04/10/20 Time of Service: 15:44 Care Management Initial Assess REASON FOR HOSPITALIZATION:: Alcohol withdrawal PAST MEDICAL HISTORY/PAST SURGICAL HISTORY:: Alcoholism. Chronic vertigo. Impairment of balance. Tobacco abuse PREVIOUS FUNCTIONAL STATUS/SOCIAL/FAMILY SUPPORTS:: Paul lives in [place], [place] he is currently unemployed he states he was layed during COVID. He states he lives alone, he is independent with ADL's. He does not drive and identifies his parents and sister as a good support system. CURRENT FUNCTIONAL STATUS:: Paul is alert and engaged he states he plans to go to [facility] after he takes care of a few things He has been working with a trolley coach driver CM paged them and gave them Paul's number for ongoing support. Paul states he wants to stop using alcohol and knows his resources through 's. 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 He states he has done the intake but needs to take care of a few things before he goes. CM contacted trolley coach driver and spoke with Fabi who will call patient and continue to provide support r/t substance use.
--- NOTE | 2020-04-10 15:57 | NUR.NOTE ---
Nursing Note: Pt transferred from ICU @ 1135 in stable condition. Pt was able to walk. Vitals stable. No pain. CIWA charted. Denies dizziness.
[2020-04-10] MEDS: hydrOXYzine HCL 50 MG TAB PO (21:10)
[2020-04-11] MEDS: Normal Saline 1,000 ML 100 ML IV (00:03)
[2020-04-11 03:43] VITALS: BP 151/87; PULSE 66; RESP 17; TEMP 36.7; O2SAT 98
[2020-04-11] MEDS: Oxazepam 10 MG CAP PO ×2 (04:50→11:07)
[2020-04-11] MEDS: Thiamine 100 MG TAB PO (08:03)
[2020-04-11] MEDS: Multivitamin TAB 1 TAB PO (08:03)
[2020-04-11] MEDS: Folic Acid 1 MG TAB PO (08:03)
[2020-04-11] MEDS: Potassium Chloride 20 MEQ TABCR PO (08:04)
[2020-04-11] MEDS: Nicotine 21 MG/24 HR PATCH TD (08:04)
[2020-04-11] MEDS: Normal Saline Flush 10 ML SYR IVP (08:09)
[2020-04-11 08:11] VITALS: BP 128/82; PULSE 66; RESP 16; TEMP 36.8; O2SAT 97
[2020-04-11 08:16] LABS: ALT 68 U/L (16-63); AST 50 U/L (15-37); Albumin 3.1 g/dL (3.4-5.0); Alkaline Phosphatase 48 U/L (46-116); Anion Gap 11.5 mmol/L (3-11); BUN 5 mg/dL (7-18); Bilirubin, Total 0.5 mg/dL (0.2-1.0); CO2 22.5 mmol/L (21.0-32.0); CREATININE 0.59 mg/dL (0.70-1.30); Calcium 8.9 mg/dL (8.5-10.1); Chloride 105 mmol/L (98-107); Glucose 84 mg/dL (74-106); Potassium 3.4 mmol/L (3.5-5.1); Sodium 139 mmol/L (136-145); Total Protein 6.7 g/dL (6.4-8.2)
--- NOTE | 2020-04-11 10:54 | W.PM.DS.N ---
DS: Diagnosis Discharge Diagnosis (1) Alcohol withdrawal: Status: Acute Asessment and Plan: Discharge home with close follow-up with his primary care provider as well as follow-up with Ney Alfaro. Referral to Ney Alfaro is being coordinated by case management. Patient is advised to abstain from any further alcohol as this will exacerbate his electrolyte disorder and his pancreatitis and is contraindicated to use alcohol while on the influence of benzodiazepines. Patient is prescribed a 2-day course of Serax to help ease his alcohol withdrawal. He is given a prescription for Serax 10 mg p.o. 3 times daily #6 no refills. He is also given prescriptions for thiamine and folic acid as well as magnesium and potassium supplementation. (2) Pancreatitis: Status: Resolved Asessment and Plan: Patient is advised to abstain from further alcohol as this will exacerbate his pancreatitis. (3) Hypokalemia: Status: Acute Asessment and Plan: Recheck a BMP in 1 week (4) Hypomagnesemia: Status: Resolved Asessment and Plan: Recheck a magnesium level in 1 week Discharge Plan Disposition Patient Disposition: HOME Condition: Improving Discharge Details Chief Complaint: ETOHWithdr Clinical Impression: Alcohol withdrawal, Hypokalemia, Chest pain Reason For Visit: ALCOHOL WITHDRAWAL Admit Date/Time: 04/09/20 14:28 Admit Provider: Rip Montiel Attending Provider: Rip Montiel Primary Care Provider: Jerrica Gomes ED Provider: Hamilton Tavera Hospital Course Hospital Course: 45-year-old male with a history of alcoholism presented with atypical chest pain was ruled out for ACS. He has had previous admissions in which she has had acute alcohol withdrawal with chest pain and has had previous negative cardiac work-up. Patient has a history of alcoholic pancreatitis. He presented to the hospital on April 10, 2020 after discontinuing any alcohol on Monday, April 06, 2020. He desires to get sober and is trying to get into an acute inpatient alcohol treatment program at [facility]. He started having symptoms of alcohol withdrawal on and so he drank half a pint of alcohol and presented to the emergency department. He was treated with 1 mg of Ativan in the emergency department and was admitted for treatment of acute alcohol withdrawal. Dr. Escalante her admitted him on April 09 and put him on program doses of Serax 10 mg p.o. 4 times daily. He was also placed on hydroxyzine 50 mg nightly for sleep and given a NicoDerm patch and placed on potassium replacement as he was found to be hypokalemic with a potassium level of 3.3. His COVID test was negative his urine toxicology screen was negative for drugs of abuse with the exception of a blood alcohol level of 223. His CBC was remarkable for macrocytic changes. Hemoglobin is 14 g on admission dropped down to 12.5 g after IV fluid hydration. Platelet counts 124,000. Chest x-ray was taken on admission and showed no acute pulmonary findings. ECG on admission showed normal sinus rhythm with no acute ischemic ST or T wave changes he has repolarization ST changes. Of note, the patient had a pancreatitis on admission w/ elevated lipase of 1063 which quickly declined to 639 overnight. At the time of discharge he was eating a regular diet w/out any nausea, vomiting nor any abdominal pain. I think as long as he is abstinent of alcohol he should do fine. No abdominal imaging was performed during this admission. Since being hospitalized his CIWA scores have been quite low except for the initial score of 19 on admission. The rest of his CIWA scoring has been 0-4. He knows this could be a couple more days yet before he can get into [facility] and he is desiring to return home. As the patient is not showing significant withdrawal symptoms, i.e., no nausea or vomiting no tachycardia no tremulousness and no diaphoresis and no hallucinations and no seizures I think he could be safely discharged on a short course of Serax. This was the plan conveyed to me by Dr. Montiel. Care management is working with the patient to get him admitted to [facility] for treatment of his chronic alcoholism. I expressed to the patient explicitly that he cannot drink while taking the Serax and he should not drive or operate any dangerous equipment. He understands the same. 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 His girlfriend can pick him up and bring him home. Home Meds and New Rx's Prescriptions: New oxazepam 10 mg capsule 10 mg PO TID Qty: 6 RF: 0 multivitamin [Multiple Vitamins] Tablet 1 tab PO DAILY Qty: 10 RF: 0 potassium chloride [Klor-Con M20] 20 mEq Tablet,Er Particles/Crystals 20 meq PO DAILY Qty: 10 RF: 0 folic acid 1 mg Tablet 1 mg PO DAILY Qty: 10 RF: 0 thiamine mononitrate (vit B1) [Vitamin B-1 (mononitrate)] 100 mg Tablet 100 mg PO DAILY Qty: 10 RF: 0 magnesium oxide 500 mg tablet 500 mg PO DAILY Qty: 10 RF: 0 Discharge Instructions Instructions: Alcohol Withdrawal (DC) Additional Instructions: Avoid use of alcohol while taking oxazepam. Do not drive or operate any dangerous equipment while under the influence of oxazepam. If excessively sleepy or lethargic withhold your next dose of oxazepam. Follow-up with your primary care physician within the next week. Check with case management regarding admission process with Ney Alfaro. Stand Alone Forms: Nursing Discharge Form Referrals: Jerrica Gomes [Primary Care Provider] - (Please call Monday to make a follow up appointment for 1 week.) Activity:: Activity as Tolerated Equipment/Supplies:: No Equipment Needed Diet:: Normal Diet Discharge Orders Discharge Orders: Discharge Order (Routine); Ordered 04/11/20 Ordered By: Joesph Rubio Other Ambulatory Orders: Basic Metabolic Panel (Routine) Timeframe: 1 Week Facility: [facility] - Location: Laboratory Outpatient Ordered By: Joesph Rubio Magnesium (Routine) Timeframe: 1 Week Facility: [facility] - Location: Laboratory Outpatient Ordered By: Joesph Rubio DS: Summary Status at Discharge Functional status at discharge: independent ambulation Overall status at discharge: patient is back to baseline Mental Status: mental status grossly normal Speech and Movement: speech and movement normal Mood: congruent mood Affect: normal affect Time Spent with Patient providing and/or coordinating discharge services: Less than 30 minutes Exam Narrative Exam Narrative: Middle-age male who sitting up in bed alert and oriented person place time circumstance. Skin is nondiaphoretic. Lungs are clear to auscultation. Heart is regular rate and rhythm without murmur rub or gallop. Abdomen soft and nontender with normal active bowel sounds. Neurologic he is alert and oriented person place time circumstance no hallucinations. Answers questions appropriately. Hands are non-tremulous. Normal elabxe-dr-hfke testing with no past-pointing. Normal strength and range of motion both upper and lower extremities. Normal sensation to light touch. Psych Mental Status: mental status grossly normal Speech and Movement: speech and movement normal Mood: congruent mood Affect: normal affect DS: Data Vitals/I&O Vitals and I&O: Vital Signs Temperature 36.8 C 04/11/20 08:11 Temperature Source Tympanic 04/11/20 08:11 Pulse 66 04/11/20 08:11 Pulse Rhythm Regular 04/11/20 02:36 Pulse 73 04/10/20 10:01 Respiratory Rate 16 04/11/20 08:11 Respiratory Effort 04/11/20 02:36 Respiratory Depth Normal 04/11/20 02:36 Respiratory Pattern Normal 04/11/20 02:36 Blood Pressure 128/82 04/11/20 08:11 Blood Pressure Mean 90 04/10/20 10:00 Blood Pressure Position Supine 04/10/20 09:34 Pulse Oximetry 97 04/11/20 08:11 Oxygen Delivery Method Room Air 04/11/20 08:11 Oxygen Flow Rate 0 04/11/20 08:11 Pain Level 0 04/11/20 08:11 Intake & Output 04/10/20 04/10/20 04/11/20 11:59 23:59 11:59 Intake Total 1658.333 / 2295.000 636.667 / 2295.000 961.667 / 961.667 Output Total 1600 / 2200 600 / 2200 Balance 58.333 / 95.000 36.667 / 95.000 961.667 / 961.667 Intake: IV 1658.333 / 1935.000 276.667 / 1935.000 961.667 / 961.667 Oral 360 / 360 Output: Urine 1600 / 2200 600 / 2200 Other: Urine Color Yellow Pale Urine Appearance Clear Clear Clear Urine Odor Normal Comment voiding qs in urinal denies any pain or discomfort with voiding Stool Size Moderate Stool Characteristics Soft Formed Voiding Methods Urinal Toilet Data Completed and Pending Labs on day of discharge: Labs from last 24 hours 04/11/20 07:24 Sodium 139 Potassium 3.4 L Chloride 105 Carbon Dioxide 22.5 Anion Gap 11.5 H BUN 5 L Creatinine 0.59 L Estimated GFR/1.73 m2 >= 60.00 Glucose 84 Calcium 8.9 Total Bilirubin 0.5 AST 50 H ALT 68 H Alkaline Phosphatase 48 Total Protein 6.7 Albumin 3.1 L [facility] Medical History Alcoholism (Inactive) Chronic vertigo (Acute) Impairment of balance (Acute) Tobacco abuse (Acute) Surgical History No significant past surgical history (Acute) Family History Maternal Grandfather Alcohol abuse Maternal Uncle Alcohol abuse Social History Smoking/Tobacco Use Status: Current every day Tobacco Type: cigarettes Alcohol Intake: current Alcohol Intake frequency: 3 or more drinks per day Alcohol type: beer and hard liquor Drug use: Rarely Substance use type: marijuana Do you feel safe at home: Yes Do you feel safe in your relationship?: Yes
--- NOTE | 2020-04-11 20:31 | CMDISCH_ITS ---
- If Service Date Differs Date of service: 04/11/20 Time of Service: 20:31 LACE Index Scoring Tool - Questions: Length of Stay (in days): 3 Acuity (Admit via E.D.?): Yes E.D. Visits: 5 - Answers: Total Score: 10 Risk of Readmission: High Risk Care Management Discharge Reason for Hospitalization: Alcohol withdrawal Discharge Plan: Paul will return home with no additional services at this time. CM connected him with a refinery operator vapor recovery unit who will follow up with him via phone today. He will be driven home via private vehicle. He is looking forward to going to [facility] for alcohol use rehab, which he is on a wait list for. Patient/Family Education Needs: Review discharge instructions, discussion of self care needs including ask me three
== END 2020-04-11 13:20 | disposition home or self-care (01) | DRG 896 ==
LOC: ER 13:23 → ICU 14:21 → MS 04-10 11:39
PROVIDERS: Admitting Provider Family Medicine; Emergency Provider Student in an Organized Health Care Education/Training Program; PCP Nurse Practitioner Family; Visit Provider Family Medicine
DX: F10.230 Alcohol dependence with withdrawal, uncomplicated (principal); K85.20 Alcohol induced acute pancreatitis without necrosis or infection; R07.2 Precordial pain; E87.6 Hypokalemia; F17.210 Nicotine dependence, cigarettes, uncomplicated; R42 Dizziness and giddiness; E83.42 Hypomagnesemia
CPT/HCPCS: 36415; 80048; 80053; 80307; 83690; 93005; 96365; 96366; 96368; 96372; 96375; 99222; 99232; 99238; 99285; J1650; U0003; 71046; 80320; 83735; 84484; 85025; 85379; 93010; 99284; J2060; J2405; J2560; J3480; J3490

== ENCOUNTER 2020-04-22 13:56 | Outpatient (REF) | payer MEDICAID, SELFPAY ==
[2020-04-22 21:32] LABS: HCT 43.5 % (40.0-50.0); HGB 14.5 g/dL (13.5-17.5); MCH 34.6 pg (27.0-33.0); MCHC 33.3 % (32.0-36.0); MCV 103.8 fL (80-95); MPV 11.2 fL (8.0-11.0); RBC 4.19 10^6/uL (4.36-5.78); RDW 11.8 % (11.8-14.1); RDW-SD 44.9 fL; WBC 9.91 10^3/uL (4.4-10.8)
[2020-04-22 21:33] LABS: Platelet Count 411 10^3/uL (130-400)
[2020-04-22 21:48] LABS: ALT 49 U/L (16-63); AST 30 U/L (15-37); Albumin 3.9 g/dL (3.4-5.0); Alkaline Phosphatase 60 U/L (46-116); Anion Gap 12.7 mmol/L (3-11); BUN 10 mg/dL (7-18); Bilirubin, Total 0.2 mg/dL (0.2-1.0); CO2 23.3 mmol/L (21.0-32.0); CREATININE 0.86 mg/dL (0.70-1.30); Calcium 10.1 mg/dL (8.5-10.1); Chloride 101 mmol/L (98-107); Glucose 101 mg/dL (74-106); Magnesium 1.7 mg/dL (1.8-2.4); Potassium 3.9 mmol/L (3.5-5.1); Sodium 137 mmol/L (136-145); Total Protein 7.7 g/dL (6.4-8.2)
== END 2020-04-22 14:16 ==
LOC: NCHCN 13:56
PROVIDERS: PCP Nurse Practitioner Family; Visit Provider Nurse Practitioner Family
DX: E83.42 Hypomagnesemia (principal); E87.6 Hypokalemia; R74.8 Abnormal levels of other serum enzymes
CPT/HCPCS: 80053; 85027; 83735

== ENCOUNTER 2020-05-22 15:20 | Outpatient (REF) | payer MEDICAID, SELFPAY ==
[2020-05-25 17:58] LABS: Patient Race White; SARS-CoV-2 RNA Undetected (Undetected); SARS-CoV-2 Specimen Source Nasal
== END 2020-05-22 15:40 ==
LOC: NCHCN 15:20
PROVIDERS: PCP Nurse Practitioner Family; Visit Provider Nurse Practitioner Family
DX: J02.9 Acute pharyngitis, unspecified (principal)
CPT/HCPCS: U0003

== ENCOUNTER 2020-06-02 10:54 | Outpatient (CLI) | payer MEDICAID, SELFPAY ==
--- NOTE | 2020-06-02 14:31 | DI.RAD_ITS ---
EXAM: XR HIP RT COMPLETE AP PELVIS INDICATION: RT HIP PAIN, [id number]. COMPARISON: CT ABD PELVIS WITH CONTRAST from 06/12/2012 CT UPPER ABD WITH CONTRAST (P) from 10/26/[address] CHEST/ABD/PEL W from 01/09/2019 TECHNIQUE: 2D digital imaging was performed. FINDINGS: There is mild superior joint space narrowing on the right and mild bilateral acetabular spurring. A s mall subchondral cyst is seen in the superior right acetabulum. There are serpiginous sclerotic line s in both femoral heads. There is no evidence of flattening of the femoral heads. Findings could re present avascular necrosis. This was noted on previous CT from 2019, but was not present on the 2011 and 2012 exams. IMPRESSION: Mild degenerative changes of both hips, right greater than left. 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 DATA REPOSITORY: RADIATION DOSE DELIVERED:
== END 2020-06-02 11:14 ==
PROVIDERS: PCP Nurse Practitioner Family; Visit Provider Nurse Practitioner Family
DX: M16.0 Bilateral primary osteoarthritis of hip (principal); M25.551 Pain in right hip
CPT/HCPCS: 73502

== ENCOUNTER 2020-07-05 00:58 | Emergency (ER) | payer MEDICAID, SELFPAY ==
[2020-07-05] VITALS (44 sets, daily range): BP systolic 127–149; BP diastolic 74–97; PULSE 69–109; RESP 13–23; TEMP 36.7; O2SAT 93–99
--- NOTE | 2020-07-05 00:45 | RT.EKG_ITS ---
APPROVED REPORT Exam: Resting ECG Patient Location: E HR:84 bpm ECG Measurements Heart Rate 84 AXIS DE 209 P 67 QRSd 90 QRS 50 QT 391 T 55 QTc 461 Conclusion Sinus rhythm...normal P axis, V-rate 60- 99 Borderline prolonged DE interval...DE >202, V-rate 50- 90 ST elev, probable normal early repol pattern...ST elevation, age<55 artifact from patient moving
--- NOTE | 2020-07-05 01:00 | DI.CT_ITS ---
EXAM: CT CHEST PE ABD PELVIS W TECHNIQUE: CT angiography of the chest, abdomen and pelvis was performed with bolus infusion of 100 cc of Omnipaque 350. Axial CT angiography was performed with multi-slice acquisition and multi-planar and/or 3D reconstruc tions. COMPARISON: CT CT CHEST PE CTA from 02/20/2020 FINDINGS: The lungs are clear. With some predominantly subpleural pulmonary emphysematous changes noted mostl y in the lung apices. No pleural effusion. No evidence of pulmonary embolic disease. No thoracic aor tic dissection or aneurysm. Aortic diameter in the ascending aorta at upper limits of normal at 38 t o 39 millimeters. Major branches of the thoracic aorta appear normal. No pleural effusion. No media stinal or hilar adenopathy. Tracheobronchial tree appears intact. Note is made of coronary artery calcification. There is an apparent left upper pole renal cyst measuring roughly 1.5 cm in diameter, no other focal renal abnormality seen. No urinary tract calcification or obstruction. There is probable mild hepat ic steatosis. Gallbladder and bile ducts are CT normal. Pancreas is unremarkable. No focal splenic lesion. No abdominal aortic aneurysm or dissection. Major branches of the abdominal aorta appear normal. No a bdominal or pelvic adenopathy. Normal appendix. No significant abdominal wall hernia. No focal bowel pathology. IMPRESSION: No significant abnormality identified on an acute basis on scanning of the chest, abdomen, or pelvis. RADIATION DOSE DELIVERED: 1,199.73mGy.cm Total DLP 1,199.73mGy.cm Total DLP DATA REPOSITORY: All CT scans at this facility are submitted to the National Radiology Data Registry (NRDR) Dose Index Registry (DIR) with the [employer] (ACR). RADIATION OPTIMIZATION: All CT scans at this facility use at least one of these dose optimization te chniques: automated exposure control; mA and/or kV adjustment per patient size (includes targeted exa ms where dose is matched to clinical indication); or iterative reconstruction.
--- NOTE | 2020-07-05 01:03 | ED.GENADUL_ITS ---
Discharge Plan Disposition Patient Disposition: HOME Condition: Stable Discharge Details Clinical Impression: Hypomagnesemia, Chest pain, Abdominal pain, Gastritis Primary Care Provider: Jerrica Gomes ED Provider: Manolo Jeffers Home Meds and New Rx's Prescriptions: New omeprazole 20 mg capsule,delayed release(DR/EC) 20 mg PO DAILY Qty: 30 RF: 0 Continued multivitamin [Multiple Vitamins] Tablet 1 tab PO DAILY Qty: 10 RF: 0 potassium chloride [Klor-Con M20] 20 mEq Tablet,Er Particles/Crystals 20 meq PO DAILY Qty: 10 RF: 0 folic acid 1 mg Tablet 1 mg PO DAILY Qty: 10 RF: 0 thiamine mononitrate (vit B1) [Vitamin B-1 (mononitrate)] 100 mg Tablet 100 mg PO DAILY Qty: 10 RF: 0 Discharge Instructions Instructions: Gastritis (ED), Hypomagnesemia (ED) Additional Instructions: follow up with your primary care provider within 1 week you can take mylanta as needed for the epigastric pain follow dosing instructions on packaging your magnesium level was low, this should be repeated when you follow up with your primary care provider and also discuss continuing the omeprazole if you feel more ill, have severe worsening pain or persistent vomit return to the emergency department Medical Decision Making 45 yo male with hx of alcohol induced pancreatitis who had been sober for 2 months but relapsed and started drinking 2 weeks ago and last had alcohol on Monday comes in with 2 days of nausea and epigastric and chest pain constant for 2 days and started to vomit tonight so came here. Denies fevers, chills, states pain is in the epigastric region now. No dyspnea and no leg swelling. Has tenderness in the epigastric region without guarding. Suspect pancreatitis but given some chest pain will obtain ecg and troponin, heart score is 2. Given the vomit as well could be boerhaaves so will obtain CT of the chest and also abd/pelvis to evaluate for sbo and cholecystitis. labs show mild wbc of 16 which is likely reactive from the vomit and has mild increased anion gap likely from mild dehydration. He is tolerating PO now and pain is gone no longer having abodminal tenderness. Imaging shows nothing acute other that gastritis which is likely alcohol induced. Will start him on ppi and advised prn mylanta. Follow up with pcp within a week and return precautions given Differential Diagnosis Differential Diagnosis: pancreatitis, boerhaaves, Medical Records Medical records reviewed: Yes I reviewed the patient's medical records. Imaging Data Radiologic Study: Attestation: I personally reviewed and interpreted this imaging study as follows: Imaging: CT Scan Radiologist's impression: IMPRESSION: 1. No pulmonary artery embolism demonstrated. 2. Dilated ascending aorta. 3. No aortic dissection demonstrated. 4. Hyperinflation of the lungs. 5. Coronary artery disease. 6. Biapical bullous disease and right apical paraseptal emphysema. 7. Hiatal hernia. IMPRESSION: 1. Gastric distension with rugal prominence could be as result of gastritis. 2. Scattered colonic diverticula. Lab Data Lab results reviewed: Yes I reviewed the patient's lab results. ECG Data Attestation: I personally reviewed and interpreted this ECG (s) as follows: Prior ECG tracings: not available for review Interpretation: baseline artifact as patient moving but sinus, rate of 84, qtc 461 HPI General Mode of arrival: ambulatory . Date/Time Provider Initiated Documentation: 07/05/20 01:03 . Limitations to Documentation: no limitations . Information obtained by: patient . History of Present Illness 45 year old M presents to the emergency department with the chief complaint of epigastric pain, described as moderate, Patient reports no radiation. Patient started experiencing this day(s) (2) and it has been constant. No relieving factors improve symptom(s), No exacerbating factors reported . Patient did receive the following treatments prior to arrival, none Related Data Home Medications Medication Instructions Recorded Confirmed folic acid 1 mg PO DAILY #10 tab 04/11/20 multivitamin [Multiple Vitamins] 1 tab PO DAILY #10 tab 04/11/20 07/05/20 potassium chloride [Klor-Con M20] 20 meq PO DAILY #10 tab 04/11/20 07/05/20 thiamine mononitrate (vit B1) 100 mg PO DAILY #10 tab 04/11/20 07/05/20 [Vitamin B-1 (mononitrate)] omeprazole 20 mg PO DAILY #30 cap 07/05/20 Previous Rx's Medication Instructions Recorded folic acid 1 mg PO DAILY #10 tab 04/11/20 multivitamin [Multiple Vitamins] 1 tab PO DAILY #10 tab 04/11/20 potassium chloride [Klor-Con M20] 20 meq PO DAILY #10 tab 04/11/20 thiamine mononitrate (vit B1) 100 mg PO DAILY #10 tab 04/11/20 [Vitamin B-1 (mononitrate)] omeprazole 20 mg PO DAILY #30 cap 07/05/20 Allergies Allergy/AdvReac Type Severity Reaction Status Date / Time No Known Allergies Allergy Unverified 07/05/20 01:08 General Stated Complaint: Chest Pain SARAH: 2 Review of Systems All systems reviewed & are unremarkable except as noted in HPI and below Constitutional Constitutional: Denies chills, Denies fever(s) and Denies weakness Cardiovascular Cardiovascular: Denies dyspnea Respiratory Respiratory: Denies cough and Denies dyspnea Musculoskeletal Musculoskeletal: Denies joint swelling Neurologic Neurologic: Denies weakness [facility] Medical History (Updated 07/05/20 @ 02:28 by Manolo Jeffers MD) Alcoholism Chronic vertigo Impairment of balance Tobacco abuse Surgical History No significant past surgical history Family History Maternal Grandfather Alcohol abuse Maternal Uncle Alcohol abuse Social History Smoking/Tobacco Use Status: Current every day Tobacco Type: cigarettes Smoking risk assessment performed?: Yes Alcohol Intake: current Alcohol Intake frequency: 3 or more drinks per day Alcohol type: beer and hard liquor Drug use: Rarely Substance use type: marijuana Do you feel safe at home: Yes Do you feel safe in your relationship?: Yes Exam Const General: no acute distress Orientation: alert HENMT Head: normal to inspection Ears: external ears normal General nose exam: external nose normal Mouth: moist mucous membranes Eyes General: appearance normal, both eyes and all related structures Neck Neck: normal visual inspection Resp Effort & Inspection: normal respiratory effort and able to speak in complete sentences Cardio Rate: regular rate GI Palpation: soft Auscultation: normal bowel sounds Skin General skin exam: no rashes or lesions noted Neuro General: patient alert and patient oriented x3 Extrem General: normal to inspection Psych Mental Status: mental status grossly normal Course Vital Signs Vital signs: Vital Signs Temperature 36.7 C 07/05/20 00:55 Pulse 85 07/05/20 00:55 Respiratory Rate 18 07/05/20 00:55 Blood Pressure 143/97 H 07/05/20 00:55 Pulse Oximetry 95 07/05/20 00:55 Temperature 36.7 C 07/05/20 00:55 Temperature Source Skin 07/05/20 00:55 Pulse 85 07/05/20 00:55 Respiratory Rate 18 07/05/20 00:55 Respiratory Effort Non-Labored 07/05/20 01:01 Blood Pressure 143/97 H 07/05/20 00:55 Blood Pressure Position Supine 07/05/20 00:55 Pulse Oximetry 95 07/05/20 00:55 Oxygen Delivery Method Room Air 07/05/20 00:55 Oxygen Flow Rate 0 07/05/20 00:55 Pain Level 7 07/05/20 00:55
[2020-07-05 01:08] LABS: Abs Immature Grans 0.05 10^3/uL (0.0-0.06); Absolute Basophil Count 0.11 10^3/uL (0.0-0.2); Absolute Lymphocyte Count 2.02 10^3/uL (1.2-3.4); Absolute Neutrophil Count 12.91 10^3/uL (1.2-6.7); Basophils % 0.7; Eosinophils % 0.4; HCT 45.7 % (40.0-50.0); HGB 16.1 g/dL (13.5-17.5); Immature Grans % 0.3; Lymphocytes % 12.6; MCH 31.9 pg (27.0-33.0); MCHC 35.2 % (32.0-36.0); MCV 90.7 fL (80-95); MPV 9.3 fL (8.0-11.0); Monocytes % 5.4; Neutrophils % 80.6; Nucleated RBC 0 %; Platelet Count 260 10^3/uL (130-400); RBC 5.04 10^6/uL (4.36-5.78); RDW 11.9 % (11.8-14.1); RDW-SD 39.8 fL; WBC 16.02 10^3/uL (4.4-10.8)
[2020-07-05] MEDS: Normal Saline 1,000 ML 1000 ML IV (01:10)
[2020-07-05 01:13] LABS: Absolute Eosinophil Count 0.06 10^3/uL (0.0-0.7); Absolute Monocyte Count 0.87 10^3/uL (0.1-0.8)
[2020-07-05 01:31] LABS: *AMPHETAMINES SCREEN URINE Negative (Negative); *BARBITURATES SCREEN URINE Negative (Negative); *BENZODIAZEPINES SCREEN URINE Negative (Negative); Cannabinoids THC POSITIVE (Negative); Cocaine Screen,Urine Negative (Negative); METHADONE URINE SCREEN Negative (Negative); OPIATES URINE SCREEN Negative (Negative); Tricyclic Antidepressants Negative (Negative)
[2020-07-05 01:32] LABS: Bilirubin Negative (Negative); Blood Negative (Negative); Clarity Clear (Clear); Glucose Negative (Negative); Ketones Negative (Negative); Leukocyte Esterase Negative (Negative); Nitrite Negative (Negative); Specific Gravity >= 1.030 (1.005-1.025); Urobilinogen 0.2 EU/dL (Up TO 0.2)
[2020-07-05 01:35] LABS: ALT 88 U/L (16-63); AST 129 U/L (15-37); Albumin 3.8 g/dL (3.4-5.0); Alkaline Phosphatase 64 U/L (46-116); Anion Gap 16.6 mmol/L (3-11); BUN 16 mg/dL (7-18); Bilirubin, Total 0.9 mg/dL (0.2-1.0); CO2 22.4 mmol/L (21.0-32.0); CREATININE 0.99 mg/dL (0.70-1.30); Calcium 8.9 mg/dL (8.5-10.1); Chloride 96 mmol/L (98-107); ETHANOL BLOOD 5.5 mg/dL (<3); Glucose 124 mg/dL (74-106); Magnesium 1.3 mg/dL (1.8-2.4); Potassium 3.4 mmol/L (3.5-5.1); Sodium 135 mmol/L (136-145); TSH (W/Ref FT4) 2.33 uIU/mL (0.36-3.74)
[2020-07-05 01:36] LABS: INR 1.1 (0.9-1.1); PTT Activated 24.2 sec (21.0-27.5); Prothrombin Time 11.5 sec (9.3-11.0)
[2020-07-05 01:37] LABS: Bacteria Negative HPF (Negative); C & S Indicated? No; Casts Negative LPF (Negative); Crystals Negative HPF (Negative); Epithelial Cells Rare HPF (Negative); Mucus Trace (Negative); Other Cells Negative (Negative); RBC Negative HPF (0-2); WBC Negative HPF (0-5)
[2020-07-05 01:39] LABS: Troponin I < 0.05 ng/mL (<0.06)
[2020-07-05] MEDS: Normal Saline - Diluent 50 ML VIAL IV (01:41)
[2020-07-05] MEDS: Omnipaque 350 MG/ML 100 ML BTL IJ (01:41)
[2020-07-05] MEDS: HYDROmorphone 2 MG/ML VIAL 1 MG IVP (01:48)
[2020-07-05 01:58] LABS: Lipase 365 U/L (73-393); NT-proBNP 7 pg/mL (<300)
--- NOTE | 2020-07-05 02:18 | DI.VRAD_ITS ---
PROCEDURE INFORMATION: Exam: CT Angiography Chest With Contrast Exam date and time: 07/05/2020 1:09 AM Age: 45 years old Clinical indication: Abdominal pain; Type not specified; Patient HX: Epigastric and chest pain; Per PT: Pain for couple days steadily worse TECHNIQUE: Imaging protocol: Computed tomographic angiography of the chest with intravenous contrast. 3D rendering (Not supervised by radiologist): MIP and/or 3D reconstructed images were created by the technologist. COMPARISON: CT CHEST/ABD/PEL W 01/09/2019 12:54 PM FINDINGS: Pulmonary arteries: No pulmonary artery filling defects. Aorta: Ascending aorta dilated to 3.8 cm. No aortic dissection. Lungs: Hyperinflation of the lungs. Biapical bullous change and right apical paraseptal emphysema. Dependent subsegmental atelectasis right lung. No dense parenchymal consolidation. Pleural space: No pneumothorax. No pleural effusion. Heart: No pericardial effusion. There are coronary artery calcifications. Mediastinal space: Small hiatal hernia. Lymph nodes: No adenopathy. Bones/joints: Unremarkable. No acute fracture. Soft tissues: Unremarkable. IMPRESSION: 1. No pulmonary artery embolism demonstrated. 2. Dilated ascending aorta. 3. No aortic dissection demonstrated. 4. Hyperinflation of the lungs. 5. Coronary artery disease. 6. Biapical bullous disease and right apical paraseptal emphysema. 7. Hiatal hernia. PROCEDURE INFORMATION: Exam: CT Abdomen And Pelvis With Contrast Exam date and time: 07/05/2020 1:09 AM Age: 45 years old Clinical indication: Abdominal pain; Type not specified; Patient HX: Epigastric and chest pain; Per PT: Pain for couple days steadily worse TECHNIQUE: Imaging protocol: Computed tomography of the abdomen and pelvis with intravenous contrast. COMPARISON: CT CHEST/ABD/PEL W 01/09/2019 12:54 PM FINDINGS: Liver: There is diffuse decrease in hepatic parenchymal density, consistent with moderate fatty infiltration. No mass. Gallbladder and bile ducts: Normal. No calcified stones. No ductal dilation. Pancreas: Normal. No ductal dilation. Spleen: Normal. No splenomegaly. Adrenal glands: Normal. No mass. Kidneys and ureters: 1.5 cm exophytic simple cyst left kidney, unchanged. Too small to characterize 5 mm area or lesion of diminished enhancement in left kidney. No hydronephrosis. Stomach and bowel: Intra-abdominal stomach is minimally distended with rugal prominence. No dilated loops of small bowel or colonic dilatation. There are few colonic diverticula. Appendix: No evidence of appendicitis. Intraperitoneal space: Unremarkable. No free air. No significant fluid collection. Vasculature: No aortic aneurysm or dissection. Atherosclerosis. Lymph nodes: Unremarkable. No enlarged lymph nodes. Urinary bladder: Unremarkable as visualized. Reproductive: Unremarkable as visualized. Bones/joints: Unremarkable. No acute fracture. Soft tissues: Unremarkable. IMPRESSION: 1. Gastric distension with rugal prominence could be as result of gastritis. 2. Scattered colonic diverticula. Dictated and Authenticated by: Rahul Ro MD. Ordering:ELIEZER French MD
[2020-07-05] MEDS: Omeprazole 20 MG CAPCR PO (02:29)
== END 2020-07-05 07:03 | disposition home or self-care (01) ==
LOC: ER 02:41
PROVIDERS: Emergency Provider Emergency Medicine; PCP Nurse Practitioner Family
DX: E83.42 Hypomagnesemia (principal); K29.00 Acute gastritis without bleeding; R07.89 Other chest pain; R10.13 Epigastric pain; E86.0 Dehydration; F10.20 Alcohol dependence, uncomplicated
CPT/HCPCS: 36415; 71275; 74177; 80053; 80307; 83690; 93005; 96361; 96374; 99285; 80320; 81003; 81015; 82248; 83735; 83880; 84443; 84484; 85025; 85610; 85730; 93010; J3490

== ENCOUNTER 2020-11-02 08:36 | Emergency (ER) | payer MEDICAID, SELFPAY ==
[2020-11-02] VITALS (16 sets, daily range): BP systolic 106–143; BP diastolic 75–98; PULSE 85–115; RESP 14–27; TEMP 36.7; O2SAT 92–97
--- NOTE | 2020-11-02 09:08 | W.ED.GENAD ---
Discharge Plan Disposition Patient Disposition: HOME Condition: Good Discharge Details Clinical Impression: Alcohol withdrawal Primary Care Provider: Jerrica Gomes ED Provider: Willow Romero Home Meds and New Rx's Prescriptions: New thiamine HCl (vitamin B1) 100 mg tablet 100 mg PO DAILY Qty: 14 RF: 0 chlordiazepoxide HCl 25 mg capsule 25 mg PO Q12H PRNQty: 6 RF: 0 No Action omeprazole 20 mg capsule,delayed release(DR/EC) 20 mg PO DAILY Qty: 30 RF: 0 multivitamin [Multiple Vitamins] Tablet 1 tab PO DAILY Qty: 10 RF: 0 potassium chloride [Klor-Con M20] 20 mEq Tablet,Er Particles/Crystals 20 meq PO DAILY Qty: 10 RF: 0 folic acid 1 mg Tablet 1 mg PO DAILY Qty: 10 RF: 0 thiamine mononitrate (vit B1) [Vitamin B-1 (mononitrate)] 100 mg Tablet 100 mg PO DAILY Qty: 10 RF: 0 Discharge Instructions Additional Instructions: Take the Librium only as instructed, do not combine this with alcohol as it can make you very sick Take your thiamine daily Please return to AA Please call your doctor to let them know you are attempting to withdrawal from alcohol Return earlier should you have new or worsening complaints Discharge Data Discharge Date/Time-TO BE ENTERED AT DEPARTURE: 11/02/20 10:46 Medical Decision Making Patient is alert and oriented, ambulatory with steady gait Patient care was discussed with case management and patient has declined detox He was offered on several occasions His CIWA score is few He was given a small amount of Librium, he seems appropriate in [facility] to take this medication He was also supplied with a trolley coach driver in the outpatient setting At this time I think the patient is stable for discharge home He is not suicidal or homicidal, he is completely alert and oriented He is given low threshold to return should he have new or worsening complaints I did discuss risk of taking Librium with alcohol and patient expressed understanding, he was only for 5 to 6 tablets Differential Diagnosis Differential Diagnosis: Alcohol intoxication, alcohol withdrawal, personality disorder Medical Records Medical records reviewed: Yes I reviewed the patient's medical records. HPI This 45-year-old gentleman with history of alcoholism presents with report of alcohol withdrawal symptoms which prompted him to drink this morning. He states he has been tapering off alcohol for the past week. He has not followed with his primary care physician. Patient denies any falls or injuries. He states he had approximately 5 shots of vodka prior to arrival. He states he typically drinks half gallon of vodka in about 3 days at home. 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 2 episodes of vomiting yesterday, no vomiting today reportedly. He denies any auditory or visual hallucinations, current tremulousness chest pain, shortness of breath, dizziness. He does feel mild improvement after having several shots of vodka. Denies any suicidal or homicidal ideation. General Date/Time Provider Initiated Documentation: 11/02/20 08:37. Related Data Home Medications Medication Instructions Recorded Confirmed folic acid 1 mg PO DAILY #10 tab 04/11/20 multivitamin [Multiple Vitamins] 1 tab PO DAILY #10 tab 04/11/20 07/05/20 potassium chloride [Klor-Con M20] 20 meq PO DAILY #10 tab 04/11/20 07/05/20 thiamine mononitrate (vit B1) 100 mg PO DAILY #10 tab 04/11/20 07/05/20 [Vitamin B-1 (mononitrate)] omeprazole 20 mg PO DAILY #30 cap 07/05/20 chlordiazepoxide HCl 25 mg PO Q12H PRN #6 cap 11/02/20 thiamine HCl (vitamin B1) 100 mg PO DAILY #14 tab 11/02/20 Previous Rx's Medication Instructions Recorded folic acid 1 mg PO DAILY #10 tab 04/11/20 multivitamin [Multiple Vitamins] 1 tab PO DAILY #10 tab 04/11/20 potassium chloride [Klor-Con M20] 20 meq PO DAILY #10 tab 04/11/20 thiamine mononitrate (vit B1) 100 mg PO DAILY #10 tab 04/11/20 [Vitamin B-1 (mononitrate)] omeprazole 20 mg PO DAILY #30 cap 07/05/20 chlordiazepoxide HCl 25 mg PO Q12H PRN #6 cap 11/02/20 thiamine HCl (vitamin B1) 100 mg PO DAILY #14 tab 11/02/20 Allergies Allergy/AdvReac Type Severity Reaction Status Date / Time No Known Allergies Allergy Unverified 11/02/20 08:46 General Stated Complaint: ETOHWithdr SARAH: 3 Review of Systems Narrative: Review of systems obtained x7 aside from where indicated in HPI [facility] Medical History (Updated 11/02/20 @ 10:42 by ELSY Phelan) Alcoholism 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 Chronic vertigo Impairment of balance Tobacco abuse Surgical History No significant past surgical history Family History Maternal Grandfather Alcohol abuse Maternal Uncle Alcohol abuse Social History Smoking/Tobacco Use Status: Current every day Tobacco Type: cigarettes Smoking risk assessment performed?: Yes Alcohol Intake: current Alcohol Intake frequency: 3 or more drinks per day Alcohol type: beer and hard liquor Drug use: Occasionally Substance use type: marijuana Do you feel safe at home: Yes Do you feel safe in your relationship?: Yes Exam Const General: cooperative and no acute distress HENMT Other: No tongue fasciculations Eyes Pupils: PERRL Chest Other: No tenderness, no visible sign of trauma Resp Effort & Inspection: normal respiratory effort Cardio Rate: regular rate Rhythm: regular rhythm GI Other: Nontender No visible sign of trauma Skin General skin exam: no rashes or lesions noted Neuro General: patient alert and patient oriented x3 Cranial Nerves: CN's II-XI intact bilaterally Other: Ambulatory with steady gait Extrem Other: No visible sign of trauma Course Vital Signs Vital signs: Vital Signs Temperature 36.7 C 11/02/20 08:41 Pulse 105 H 11/02/20 08:41 Respiratory Rate 20 11/02/20 08:41 Blood Pressure 143/98 H 11/02/20 08:41 Pulse Oximetry 96 11/02/20 08:41 Temperature 36.7 C 11/02/20 08:41 Temperature Source Skin 11/02/20 08:41 Pulse 105 H 11/02/20 08:41 Respiratory Rate 20 11/02/20 08:41 Respiratory Effort Non-Labored 11/02/20 08:47 Blood Pressure 143/98 H 11/02/20 08:41 Blood Pressure Position Sitting 11/02/20 08:41 Pulse Oximetry 96 11/02/20 08:41 Oxygen Delivery Method Room Air 11/02/20 08:41 Oxygen Flow Rate 0 11/02/20 08:41 Pain Level 5 11/02/20 08:41
--- NOTE | 2020-11-02 11:54 | CMPROGNOTE_ITS ---
- If Service Date Differs Date of service: 11/02/20 Time of Service: 11:54 Care Management Progress Note Paul presents in the ED due to alcohol withdrawal. ZOHREH is asked to meet with him to offer resources. We discuss inpatient treatment at [facility] or [facility], both of which Paul declines. He states he would prefer to attend AA meetings and to continue decreasing his consumption of alcohol on his own. Paul reports he was admitted to [facility] in March of 2020 and after his discharge, he did not drink any alcohol for approximately 3 months. In June 2020, his unemployment terminated for reasons unclear to ZOHREH. Paul states he has not had any income since then. The stress of having no money, along with a break-up with his girlfriend, led to relapse. Stephen states he has not attended an AA meeting for 4 months. ZOHREH facilitates a phone call between [facility] [employer] [facility] [employer], and Paul. The Legal [employer] will assist Paul in reconnecting with AA and will provide additional support in the community. ZOHREH is also making a referral to [employer] to enlist their help in exploring available income sources. Paul reports he has Medicaid, stable housing, plenty of food, and relies on friends and [facility] for transportation.
== END 2020-11-02 10:46 | disposition home or self-care (01) ==
PROVIDERS: Emergency Provider Physician Assistant; PCP Nurse Practitioner Family
DX: F10.231 Alcohol dependence with withdrawal delirium (principal)
CPT/HCPCS: 99283

== ENCOUNTER 2020-12-14 02:43 | Outpatient (CLI) | payer MEDICAID, SELFPAY ==
--- NOTE | 2020-12-14 14:50 | DI.MRI_ITS ---
EXAM: MR LOWER JOINT RT WO CLINICAL HISTORY: AVASCULAR NECROSIS RT FEMORAL HEAD,M87.051 TECHNIQUE: Multiplanar multisequence MRI of the hip was performed. COMPARISON: CR XR HIP RT COMPLETE AP PELVIS from 06/02/2020 FINDINGS: MARROW: There is signal abnormality and pattern consistent with avascular necrosis in both femoral he ads, slightly more prominent on the right side where there is also bone edema in the lower femoral ne ck. There is no flattening of the femoral heads on either side. ARTICULATIONS: There are noted significant joint effusions. No erosions evident. No prominent chond ral defects. No obvious labral tears. No evidence of paralabral cyst. No ligamentum teres hypertrophy. SOFT TISSUES: No mass is seen. No inguinal adenopathy. No evidence of tendinitis nor bursitis. Ham strings unremarkable. IMPRESSION: 1. Findings are consistent with bilateral hip avascular necrosis. This is more prominent on right si de as described above. DATA REPOSITORY:
== END 2020-12-14 03:03 ==
PROVIDERS: PCP Nurse Practitioner Family; Visit Provider Student in an Organized Health Care Education/Training Program
DX: M25.551 Pain in right hip (principal); M87.051 Idiopathic aseptic necrosis of right femur
CPT/HCPCS: 73721

== ENCOUNTER 2021-01-01 11:44 | Outpatient (REF) | payer MEDICAID, SELFPAY ==
[2021-01-01 16:31] LABS: HCT 43.4 % (40.0-50.0); HGB 14.7 g/dL (13.5-17.5); MCH 32.5 pg (27.0-33.0); MCHC 33.9 % (32.0-36.0); MPV 10.9 fL (8.0-11.0); Platelet Count 275 10^3/uL (130-400); RBC 4.52 10^6/uL (4.36-5.78); RDW 12.4 % (11.8-14.1); RDW-SD 44.2 fL; WBC 18.05 10^3/uL (4.4-10.8)
[2021-01-01 16:48] LABS: Prothrombin Time 10.3 sec (9.3-11.0)
[2021-01-01 16:49] LABS: ALT 32 U/L (16-63); AST 19 U/L (15-37); Albumin 3.8 g/dL (3.4-5.0); Alkaline Phosphatase 97 U/L (46-116); BUN 17 mg/dL (7-18); Bilirubin, Total 0.2 mg/dL (0.2-1.0); CREATININE 0.8 mg/dL (0.70-1.30); Calcium 9.2 mg/dL (8.5-10.1); Chloride 105 mmol/L (98-107); Glucose 113 mg/dL (74-106); Potassium 4.2 mmol/L (3.5-5.1); Sodium 139 mmol/L (136-145); Total Protein 7.8 g/dL (6.4-8.2)
== END 2021-01-01 11:45 | disposition home or self-care (01) ==
LOC: NCHCN 11:44
PROVIDERS: PCP Nurse Practitioner Family; Visit Provider Physician Assistant
DX: F10.11 Alcohol abuse, in remission (principal)
CPT/HCPCS: 80053; 85027; 83735; 85610

== ENCOUNTER 2021-04-08 01:49 | Outpatient (CLI) | payer MEDICAID, SELFPAY ==
--- NOTE | 2021-04-08 08:15 | DI.RAD_ITS ---
Exam(s) RF JOINT INJECTION FLUORO GUID EXAM: RF JOINT INJECTION FLUORO GUID CLINICAL HISTORY: R HIP INJ UNDER FLUORO,rt hip pain, avascular necrosis rt femoral head, TECHNIQUE: Fluoroscopy provided. Radiologist not present. CONTRAST MATERIAL: None COMPARISON: No exams were available for comparison FINDINGS: Fluoroscopy was provided for Dr. Sharpe during right hip therapeutic injection. Submitted image(s) reveal needle placement at the lateral aspect of right femoral head and intra-donte cular contrast was injected. Please refer to the procedure report for complete details. Cumulative Dose: jose antonio Dominguez=1.06 mGy IMPRESSION: RADIATION DOSE DELIVERED:
[2021-04-08] MEDS: Bupivacaine 0.5% Pres-Free 10 ML VIAL 6 ML IJ (14:12)
[2021-04-08] MEDS: methylPREDNISolone ACETATE 80 MG/ML VIAL IM (14:12)
[2021-04-08] MEDS: Omnipaque 300 MG/ML 10 ML BTL IJ (14:13)
--- NOTE | 2021-04-08 14:15 | W.PROCNOTE ---
Date of service: 04/08/21 Time of Service: 14:02 Procedure Note Date of procedure: 04/08/21 Procedure: Right Hip Injection with Fluoroscopic Guidance Surgeon/Proceduralist/Physician: Bao Sharpe Procedure Diagnosis: Right Hip Avascular Necrosis Procedure Indications: Paul has had persistent pain of the RIGHT hip and groin from avascular necrosis. Noninvasive measures have been tried. Since he had good pain relief with a previous injection, an injection under fluoroscopy was recommended. I had discussed the risks of the procedure and the patient elected to proceed. Procedure Description: Paul was greeted in the flouroscopy room. The correct side was identified and the consent was reviewed with the patient and signed. The patient was then placed in the supine position on the fluoroscopy table. The RIGHT hip was then prepped with Chloraprep. The anterolateral injection starting point was identiifed by bony landmarks and fluoroscopy. The skin and soft tissue in the tract of the injection was anesthetized with 1% Lidocaine. A spinal needle was then inserted deep into the hip joint at the level of the lateral femoral neck under fluoroscopic guidance. A small amount of Omnipaque solution was injected to confirm intraarticular placement. Once confirmed, the hip was injected with 6cc of 0.5% Bupivicaine and 80mg of Depo-Medrol. A bandaid was placed on the injection site. The patient tolerated the procedure well and noted improvement in pre-injection pain.
== END 2021-04-08 02:09 ==
PROVIDERS: PCP Nurse Practitioner Family; Visit Provider Student in an Organized Health Care Education/Training Program
DX: M25.551 Pain in right hip (principal); M87.051 Idiopathic aseptic necrosis of right femur; R10.31 Right lower quadrant pain
CPT/HCPCS: 77002; J1040

== ENCOUNTER 2021-07-19 14:25 | Outpatient (CLI) | payer MEDICAID, SELFPAY ==
--- NOTE | 2021-07-19 14:15 | DI.RAD_ITS ---
Exam(s) XR PELVIS AP EXAM: XR PELVIS AP CLINICAL HISTORY: right hip pain; preop planning. TECHNIQUE: 2D digital imaging was performed. COMPARISON: CR XR HIP RT COMPLETE AP PELVIS from 06/02/2020 FINDINGS: There are no fractures. Findings consistent with probable avascular necrosis of both femoral heads a gain noted. However, there is been some significant height loss in the joint space of the right hip when compared to the images of 06/02/2020, slightly over 1 year ago. The left hip joint space remain s unremarkable. Relieve joints unremarkable. Symphysis pubis unremarkable. IMPRESSION: Suspicion for bilateral avascular necrosis of the hips. Significant degenerative narrowing of the right hip joint space which has progressed when compared to last year (May 2020) DATA REPOSITORY: RADIATION DOSE DELIVERED:
== END 2021-07-19 14:26 | disposition home or self-care (01) ==
LOC: DIORS 14:25
PROVIDERS: PCP Nurse Practitioner Family; Referring Provider Nurse Practitioner Family; Visit Provider Physician Assistant
DX: M87.051 Idiopathic aseptic necrosis of right femur (principal)
CPT/HCPCS: 72170

== ENCOUNTER 2021-07-26 02:55 | Outpatient (CLI) | payer MEDICAID, SELFPAY ==
[2021-07-26 09:48] LABS: HCT 43.3 % (40.0-50.0); HGB 14.9 g/dL (13.5-17.5); MCH 31.4 pg (27.0-33.0); MCHC 34.4 % (32.0-36.0); MCV 91.2 fL (80-95); MPV 9.3 fL (8.0-11.0); Platelet Count 243 10^3/uL (130-400); RBC 4.75 10^6/uL (4.36-5.78); RDW 12.6 % (11.8-14.1); RDW-SD 42.2 fL; WBC 11.38 10^3/uL (4.4-10.8)
[2021-07-26 11:02] LABS: Anion Gap 13.9 mmol/L (3-11); BUN 22 mg/dL (7-18); CO2 24.1 mmol/L (21.0-32.0); CREATININE 0.8 mg/dL (0.70-1.30); Calcium 9.4 mg/dL (8.5-10.1); Chloride 98 mmol/L (98-107); Glucose 94 mg/dL (74-106); Potassium 3.8 mmol/L (3.5-5.1); Sodium 136 mmol/L (136-145)
[2021-07-26 13:06] LABS: Source Nasal/Nares
[2021-07-26 17:11] LABS: COVID-19 PCR Negative (Negative)
== END 2021-07-26 02:56 | disposition home or self-care (01) ==
LOC: LBO 02:55
PROVIDERS: PCP Nurse Practitioner Family; Visit Provider Student in an Organized Health Care Education/Training Program
DX: M16.11 Unilateral primary osteoarthritis, right hip (principal); Z20.822 Contact with and (suspected) exposure to COVID-19; Z01.818 Encounter for other preprocedural examination
CPT/HCPCS: 36415; 80048; 85027; 86850; 86900; 86901; 87635

== ENCOUNTER 2021-07-27 07:13 | Day surgery (SDC) | payer MEDICAID, SELFPAY ==
[2021-07-27] VITALS (7 sets, daily range): BP systolic 101–126; BP diastolic 65–92; PULSE 59–78; RESP 16–20; TEMP 36.1–37.2; O2SAT 97–100; BMI 27.9
--- NOTE | 2021-07-27 06:43 | W.PM.DSUDISC ---
Documented by User: ELSY Clinton 07/27/21 06:47 Discharge Plan Disposition Patient Disposition: HOME Condition: Stable Discharge Details Reason For Visit: Right BRAYDON Attending Provider: Bao Sharpe Primary Care Provider: Jerrica Gomes Home Meds and New Rx's Prescriptions: New acetaminophen 500 mg capsule 1,000 mg PO Q8H PRN PRNQty: 90 RF: 0 aspirin 81 mg tablet,delayed release (DR/EC) 81 mg PO BID Qty: 60 RF: 0 celecoxib [Celebrex] 200 mg capsule 200 mg PO BID Qty: 60 RF: 0 oxycodone 5 mg tablet 5 mg PO Q4H PRNQty: 18 RF: 0 pantoprazole [Protonix] 40 mg tablet,delayed release (DR/EC) 40 mg PO DAILY Qty: 30 RF: 0 Continued multivitamin [Multiple Vitamins] Tablet 1 tab PO DAILY Qty: 10 RF: 0 chlordiazepoxide HCl 25 mg capsule 25 mg PO Q12H PRNQty: 6 RF: 0 Discontinued meloxicam 15 mg tablet 15 mg PO DAILY RF: 0 No Action naproxen sodium [Aleve] 220 mg Tablet 660 mg PO Q12H PRNRF: 0 Discharge Instructions Additional Instructions: Total Hip Discharge Instructions Activity: The most important activity is to walk. You should try to take short walks a few times a day. You have no restrictions on movement or positioning, but do not try to force what you do. You will find some stiffness and weakness with hip flexion (lifting your knee). Do not try to strengthen this too early, continue to practice walking and stairs and this will come. - Outpatient physical therapy can be helpful to help return you to a normal gait and improve your flexibility and strength. This can start around 2 weeks. For some patients, it?s not necessary. Usually this is determined at the time of discharge or at the first post-operative visit. - You should wear the TROY hose on both legs for 2 weeks. Dressing: Keep the surgical dressing in place for at least one week. After the first week it may be removed and replace with light gauze and tape or nothing or you may keep it in place until your follow-up appointment. It may get wet after 3 days but avoid soaking the dressing. If it gets wet, just lightly pat dry. It is important to always keep some gauze between skin folds, especially when you are sitting. Spend some time with the wound exposed when you are lying flat as the incision does wrinkle onto itself. Medications: - You should take Tylenol and an anti-inflammatory Celebrex as your primary pain control medications. If the Celebrex is too expensive or not covered, please call the office for another alternative (Advil/Ibuprofen or Naproxen/Aleve). - You have been prescribed a stronger pain medication Oxycodone for breakthrough pain, take as needed as prescribed. - You have also been prescribed a stomach acid reduction agent Pantoprozole to help reduce stomach acid and reflux. - You will be taking Aspirin 81mg twice a day for DVT prevention unless instructed otherwise. - If you have constipation you should take Colace or Miralax (both [id number]). It takes most people 3-4 days to have a bowel movement. Follow-up: 2 weeks If you have any acute concerns or questions, please do not hesitate to contact the office at [phone]. You may contact Dr. Sharpe with any questions after hours through the hospital at [phone] or on his cell phone at [phone]. Stand Alone Forms: Anesthesia Discharge Inst. Referrals: Bao Sharpe MD [ [facility] STAFF PHYSICIAN] - Equipment/Supplies: Walker Activity:: Activity as Tolerated Remove Dressings/Wound Care:: Do Not Remove Shower/Bathe:: 72 hours Diet:: As Tolerated Discharge Orders Discharge Orders: Discharge Order (Routine); Ordered 07/27/21 Ordered By: Erma Santiago DS: Diagnosis Discharge Diagnosis (1) Avascular necrosis of right femoral head: Status: Acute Documented by User: Bao Sharpe MD 07/27/21 12:16 Discharge Plan Disposition Patient Disposition: HOME Condition: Stable Discharge Details Reason For Visit: Right BRAYDON Attending Provider: Bao Sharpe Primary Care Provider: Jerrica Gomes Home Meds and New Rx's Prescriptions: New acetaminophen 500 mg capsule 1,000 mg PO Q8H PRN PRNQty: 90 RF: 0 aspirin 81 mg tablet,delayed release (DR/EC) 81 mg PO BID Qty: 60 RF: 0 celecoxib [Celebrex] 200 mg capsule 200 mg PO BID Qty: 60 RF: 0 oxycodone 5 mg tablet 5 mg PO Q4H PRNQty: 18 RF: 0 pantoprazole [Protonix] 40 mg tablet,delayed release (DR/EC) 40 mg PO DAILY Qty: 30 RF: 0 Continued multivitamin [Multiple Vitamins] Tablet 1 tab PO DAILY Qty: 10 RF: 0 chlordiazepoxide HCl 25 mg capsule 25 mg PO Q12H PRNQty: 6 RF: 0 Discontinued meloxicam 15 mg tablet 15 mg PO DAILY RF: 0 No Action naproxen sodium [Aleve] 220 mg Tablet 660 mg PO Q12H PRNRF: 0 Discharge Instructions Additional Instructions: Total Hip Discharge Instructions Activity: The most important activity is to walk. You should try to take short walks a few times a day. You have no restrictions on movement or positioning, but do not try to force what you do. You will find some stiffness and weakness with hip flexion (lifting your knee). Do not try to strengthen this too early, continue to practice walking and stairs and this will come. - Outpatient physical therapy can be helpful to help return you to a normal gait and improve your flexibility and strength. This can start around 2 weeks. For some patients, it?s not necessary. Usually this is determined at the time of discharge or at the first post-operative visit. - You should wear the TRYO hose on both legs for 2 weeks. Dressing: Keep the surgical dressing in place for at least one week. After the first week it may be removed and replace with light gauze and tape or nothing or you may keep it in place until your follow-up appointment. It may get wet after 3 days but avoid soaking the dressing. If it gets wet, just lightly pat dry. It is important to always keep some gauze between skin folds, especially when you are sitting. Spend some time with the wound exposed when you are lying flat as the incision does wrinkle onto itself. Medications: - You should take Tylenol and an anti-inflammatory Celebrex as your primary pain control medications. If the Celebrex is too expensive or not covered, please call the office for another alternative (Advil/Ibuprofen or Naproxen/Aleve). - You have been prescribed a stronger pain medication Oxycodone for breakthrough pain, take as needed as prescribed. - You have also been prescribed a stomach acid reduction agent Pantoprozole to help reduce stomach acid and reflux. - You will be taking Aspirin 81mg twice a day for DVT prevention unless instructed otherwise. - If you have constipation you should take Colace or Miralax (both [id number]). It takes most people 3-4 days to have a bowel movement. Follow-up: 2 weeks If you have any acute concerns or questions, please do not hesitate to contact the office at [phone]. You may contact Dr. Sharpe with any questions after hours through the hospital at [phone] or on his cell phone at [phone]. Stand Alone Forms: Anesthesia Discharge Inst. Referrals: Bao Sharpe MD [ [facility] STAFF PHYSICIAN] - Equipment/Supplies: Walker Activity:: Activity as Tolerated Remove Dressings/Wound Care:: Do Not Remove Shower/Bathe:: 72 hours Diet:: As Tolerated Discharge Orders Discharge Orders: Discharge Order (Routine); Ordered 07/27/21 Ordered By: Erma Santiago
--- NOTE | 2021-07-27 08:00 | DI.RAD_ITS ---
Exam(s) XR HIP RT IN OR EXAM: XR HIP RT IN OR CLINICAL HISTORY: right total hip replacement TECHNIQUE: 2D and realtime digital imaging was performed. CONTRAST MATERIAL: Refer to procedure report. COMPARISON: CR XR PELVIS AP from 07/19/2021 CR XR PELVIS AP from 07/19/2021 FINDINGS: Fluoroscopy was provided for Dr. Sharpe during the performance of a right total hip replacement. Please refer to the procedure report for complete details. Ka,r=2.96 mGy IMPRESSION: RADIATION DOSE DELIVERED:
--- NOTE | 2021-07-27 08:11 | W.ANESPRE ---
General Info Date of Service Date Performed: 07/27/21 Height: 5 ft 6 in Weight: 78.6 kg Body Mass Index (BMI): 27.9 Surgical Procedure: Operation Date: 07/27/21 09:35 Proposed Procedures Side Surgeon p Hip Total Hip Anterior Right Bao Sharpe MD Meds Allergies and Home Medications Allergies Allergy/AdvReac Type Severity Reaction Status Date / Time No Known Allergies Allergy Unverified 07/27/21 07:58 Home Medication Medication Instructions Recorded multivitamin [Multiple Vitamins] 1 tab PO DAILY #10 tab 04/11/20 chlordiazepoxide HCl 25 mg PO Q12H PRN #6 cap 11/02/20 acetaminophen 1,000 mg PO Q8H PRN PRN #90 cap 07/27/21 aspirin 81 mg PO BID #60 tab 07/27/21 celecoxib [Celebrex] 200 mg PO BID #60 cap 07/27/21 naproxen sodium [Aleve] 660 mg PO Q12H PRN 07/27/21 oxycodone 5 mg PO Q4H PRN #18 tab 07/27/21 pantoprazole [Protonix] 40 mg PO DAILY #30 tab 07/27/21 Current Visit Medications: Current Medications Generic Name Dose Route Start Last Admin Trade Name Freq PRN Reason Stop Dose Admin Acetaminophen 1,000 mg 07/27/21 06:00 Acetaminophen 500 Mg Tab PO 07/27/21 16:00 PREOP JOSSELYN Acetaminophen 1,000 mg 07/27/21 09:00 Acetaminophen 500 Mg Tab PO TID JOSSELYN Aspirin 81 mg 07/27/21 09:00 Aspirin E.C. 81 Mg Tabec PO BID [facility] Celecoxib 400 mg 07/27/21 06:00 Celecoxib 200 Mg Cap PO 07/27/21 16:00 PREOP JOSSELYN Celecoxib 200 mg 07/27/21 09:00 Celecoxib 200 Mg Cap PO BID JOSSELYN Docusate Sodium 100 mg 07/27/21 06:42 Docusate Sodium 100 Mg Cap PO BID PRN PRN Constipation Gabapentin 300 mg 07/27/21 22:00 Gabapentin 300 Mg Cap PO HS [facility] Hydromorphone HCl 0.5 mg 07/27/21 06:42 Hydromorphone 2 Mg/Ml Vial IVP Q2H PRN PRN Tranexamic Acid 1,000 mg/ 60 mls @ 360 mls/hr 07/27/21 06:00 Sodium Chloride IV 07/27/21 16:00 PREOP JOSSELYN Ringer's Solution 1,000 mls @ 80 mls/hr 07/27/21 06:00 IV 08/25/21 23:59 INFUSION JOSSELYN Cefazolin Sodium/Dextrose 2 gm in 50 mls @ 100 mls/hr 07/27/21 06:00 Ancef Duplex IVPB 07/27/21 16:00 PREOP JOSSELYN Cefazolin Sodium/Dextrose 1 gm in 50 mls @ 100 mls/hr 07/27/21 17:00 Ancef Duplex IVPB 07/28/21 09:29 Q8H JOSSELYN IV Miscellaneous Supplies 1 each 07/27/21 06:00 Iv Access IV 08/25/21 23:59 DIRECTED JOSSELYN Ondansetron HCl 4 mg 07/27/21 06:42 Ondansetron 4 Mg/2 Ml Vial IVP Q6H PRN PRN Nausea Oxycodone HCl 0 mg 07/27/21 06:42 Oxycodone 5 Mg Tab PO Q3H PRN PRN Pain Pantoprazole Sodium 40 mg 07/27/21 08:00 Pantoprazole 40 Mg Tabcr PO DAILY@0730 JOSSELYN Sodium Chloride 0 ml 07/27/21 06:00 Normal Saline Flush 10 Ml Syr IV 08/25/21 23:59 PRN PRN Sodium Chloride 0 ml 07/27/21 06:00 Normal Saline 10 Ml Vial IJ 08/25/21 23:59 DIRECTED PRN Sterile Water 0 ml 07/27/21 06:00 Water,Injection,Sterile 10 Ml Vial IJ 08/25/21 23:59 DIRECTED PRN PFSH Active Problems Active Problems: Problem Status Onset Code Avascular necrosis of right femoral head M87.051 Avascular necrosis of bone of left hip M87.052 Chest pain R07.9 Hepatic steatosis K76.0 COVID-19 ruled out Z03.818 Tobacco abuse Z72.0 Impairment of balance R26.89 Chronic vertigo R42 Hypokalemia E87.6 Alcohol withdrawal F10.239 Electrolyte and fluid disorder E87.8 Medical History Active Problem List Avascular necrosis of right femoral head (Acute) Avascular necrosis of bone of left hip (Acute) Chest pain (Acute) Hepatic steatosis (Acute) COVID-19 ruled out (Acute) Tobacco abuse (Acute) Impairment of balance (Acute) Chronic vertigo (Acute) Hypokalemia (Acute) Alcohol withdrawal (Acute) Electrolyte and fluid disorder (Acute) Medical History Alcoholism LAST DRINK WAS 2 WKS AGO Surgical History Surgical History Cyst of right upper eyelid Tobacco Smoking/Tobacco Use Status: Current every day Tobacco Type: cigarettes Smoking packs per day: 1 Smoking cigarettes per day: 20.0 Years smoked: 25 Smoking pack-years: 25.00 Alcohol Alcohol Intake: current Alcohol intake frequency: 3 or more drinks per day Alcohol type: beer and hard liquor Details: last drink was 2 weeks ago Substance Use Substance use: Occasionally Substance use type: marijuana Details: Pt last used couple weeks ago. Vital Signs and Lab Results Vital Signs Most Recent Vital Signs in EMR: Most Recent Vital Signs Temp Pulse Resp BP Pulse Ox 37.2 C 78 16 126/92 H 98 07/27/21 07:20 07/27/21 07:20 07/27/21 07:20 07/27/21 07:20 07/27/21 07:20 Lab Results Blood Type / Crossmatch: Patient ABO/Rh B Negative 07/26/21 09:36 07/26/21 Antibody Screen NEGATIVE 07/26/21 09:36 07/26/21 Complete Blood Count: White Blood Count 11.38 10^3/uL (4.4-10.8) H 07/26/21 09:36 07/26/21 Red Blood Count 4.75 10^6/uL (4.36-5.78) 07/26/21 09:36 07/26/21 Hemoglobin 14.9 g/dL (13.5-17.5) 07/26/21 09:36 07/26/21 Hematocrit 43.3 % (40.0-50.0) 07/26/21 09:36 07/26/21 Platelet Count 243 10^3/uL (130-400) 07/26/21 09:36 07/26/21 Complete Metabolic Panel: Sodium Level 136 mmol/L (136-145) 07/26/21 09:36 07/26/21 Potassium Level 3.8 mmol/L (3.5-5.1) 07/26/21 09:36 07/26/21 Chloride Level 98 mmol/L (98-107) 07/26/21 09:36 07/26/21 Carbon Dioxide Level 24.1 mmol/L (21.0-32.0) 07/26/21 09:36 07/26/21 Blood Urea Nitrogen 22 mg/dL (7-18) H 07/26/21 09:36 07/26/21 Creatinine 0.8 mg/dL (0.70-1.30) 07/26/21 09:36 07/26/21 Estimated GFR/1.73 m2 >= 60.00 (mL/min/1.73m2) 07/26/21 09:36 07/26/21 Calcium Level 9.4 mg/dL (8.5-10.1) 07/26/21 09:36 07/26/21 Glucose Level 94 mg/dL (74-106) 07/26/21 09:36 07/26/21 Liver Function Panel: No Data to Display Coagulation Panel: No Data to Display Cardiac Panel: No Data to Display Arterial Blood Gas: No Data to Display Venous Blood Gas: No Data to Display Pancreas Panel: No Data to Display Thyroid Panel: No Data to Display Infectious Disease: Coronavirus (COVID-19)(PCR) Negative (Negative) 07/26/21 10:28 07/26/21 Coronavirus 2019 Source Nasal/Nares 07/26/21 10:28 07/26/21 Blood Cultures: No Data to Display Toxicology Panel: No Data to Display Imaging and Studies Imaging and Studies Study information below may be from another EMR and interpreted by another provider. Please see original notes in EMR for more complete details. EKG Summary: 07/05/20: Conclusion Sinus rhythm...normal P axis, V-rate 60- 99 Borderline prolonged AZ interval...AZ >202, V-rate 50- 90 ST elev, probable normal early repol pattern...ST elevation, age<55 Stress Test Summary: 12/16/19: Clinical Reason for Termination: Fatigue Stress Symptoms: General Fatigue, Dyspnea Exercise duration: 06 min00 sec Highest Stage Reached: Stage 2: 2.5 mph at 12% grade. Exercise capacity: 7.05 METs Functional Capacity: Moderately diminished capacity Stress ECG Conclusion 1. The patient exercised for 6 minutes (7 METS). Rate-pressure product was 23,000. 2. The patient had no symptoms suggestive of ischemia. 3. There was no evidence of ischemia on the ECG portion of the exam at this level of stress. 4. The Tong Score (5) estimates an annual cardiovascular mortality of 1% and a five year survival of 94%. Using the Tong Score there is a low probability of any angiographic coronary disease. Echocardiogram Summary: 02/20/20: Conclusion Left Ventricle : The left ventricle is normal size. The left ventricular systolic function is normal. The left ventricular ejection fraction is within the normal range. There is normal left ventricular wall thickness. There is normal LV segmental wall motion. The left ventricular diastolic function is normal. LVEF is 50%. Right Ventricle : The right ventricle is normal size. Atria : The left atrium size is normal. The right atrium size is normal. Valves: There are no hemodynamically significant valvular lesions. Great Vessels : IVC is normal in size and collapses >50% with inspiration. Please see remainder of study for further details. There is no prior study available for comparison. Anesthesia Assessment and Plan Anesthesia History Personal History: No History of Anesthesia Complications Family History: No Family History of Anesthesia Complications Exercise Tolerance Exercise Tolerance: Metabolic Equivalents>4 Cardiac & Pulmonary Exam Cardiac Exam: Normal S1/S2 Heart Sounds Pulmonary Exam: Clear Bilateral Breath Sounds Implantable Cardiac Device Does patient have a Pacemaker or an ICD?: No Airway Exam Known Difficult Airway: No Mallampati Class: 3 Mouth Opening: Narrow (< 3cm) Thyromental Distance: Greater than 3 cm Facial Hair: Full Andrews Neck Range of Motion: Full ROM Neck Circumference: Normal Teeth Condition: Normal Dentition ASA Classification ASA Score: ASA 2 Emergency Case?: No NPO Status NPO Status: NPO Clears >2 hours, Solids >8 hours Anesthesia Plan Resuscitation Status: Full Code Anesthesia Technique: Spinal Anesthesia Airway Planned: Natural Airway Monitors Used: Standard Monitors
[2021-07-27] MEDS: Lactated Ringers 1,000 ML 80 ML IV (08:13)
[2021-07-27] MEDS: Acetaminophen 500 MG TAB 1000 MG PO (08:20)
[2021-07-27] MEDS: Celecoxib 200 MG CAP 400 MG PO (08:20)
[2021-07-27] MEDS: ceFAZolin 2 GM/50 ML BAG IVPB (09:00)
[2021-07-27] MEDS: Ketorolac 30 MG/ML VIAL (10:04)
[2021-07-27] MEDS: Bupivacaine 0.25% Pres-Free 30 ML VIAL (10:04)
--- NOTE | 2021-07-27 10:20 | FEMHEA_PTH ---
PATIENT: Paul Layton LOC: [facility] U#:[id number] AGE/SX: 46/M ROOM: RE07/27/[address]: Bao Sharpe MD : [id number] BED: DIS: 07/27/2021 SPEC #: [id number] RECD: 07/27/21 12:24 STATUS: ALVA REQ #: [id number] ALVARO: 07/27/21 10:[address]: Bao Sharpe DEPT: Surgical Specimen RECD BY: Willow Petersen ENTERED: 07/27/21 12:24 SP TYPE: Femo Head OTHR DR: Jerrica Gomes Tissues: 1 - FEMORAL HEAD Procedures: GROSS AND MICRO LEVEL 3 DECALCIFICATION Comments: [id number]
--- NOTE | 2021-07-27 10:31 | W.PM.OP ---
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 Depuy [place] Acetabular Component, 50mm 2. Depuy Acetabular Liner, [id number] 3. Depuy Actis Standard Collared Femoral Stem, Size 4 4. Depuy Altrx Ceramic Femoral Head, Size 32+1mm Indications: I have seen Paul in clinic for symptoms of hip avascular necrosis, confirmed with radiographic findings. Paul has exhausted nonoperative methods and was having significant limitations in daily function and desired better function and less pain. I discussed the technical details of a hip replacement. I explained the risks of the procedure to include, but not limited to, bleeding, infection, pain, stiffness, fracture, damage to nerves and vessels, damage to muscles and tendons, loosening, instability, leg length inequality, need for repeat procedure, blood clot and cardiopulmonary demise. Despite these risks, Paul elected to proceed. Findings: There were irregularities to the femoral neck with early osteophyte formation as well as an area of the superior femoral head representing collapse. Procedure Description: Paul was greeted in the preoperative holding area where the correct side was identified and marked. The consent was reviewed with the patient and signed. The history and physical was updated. All questions were answered. Paul was taken back to the operating room. A spinal anesthestic was then administered. The feet were wrapped with cast padding and Coban and then placed into the boot liners and then into the boots. Care was taken to protect the skin and make sure the heels were fully down and the boots were stable. The patient was then positioned onto the HANA table. Both legs were held in a neutral position. SCDs were applied. The patient was then slid down onto a peroneal post. Prophylactic antibiotics in the form of Cefazolin were administered. 1g of Tranxemic Acid was given intravenously within 30 minutes of incision. The right leg was then prepped with Chloraprep and draped in a standard fashion. A second prep with Chloraprep was performed prior to placement of a shower-curtain type drape with Iodine impregnated skin protection. A timeout to confirm correct identity, side and site, procedure, allergies, anesthesia, and medical concerns was performed. An obliquely oriented incision was made starting lateral to the ASIS and running distal over the Tensor Fascia Kirsten (TFL) muscle belly toward the fibular head, approximately 10cm. The skin and soft tissue was dissected sharply, through Bob?s fascia, and to the fascia of the TFL. With the fascia and superior border of the IT band identified, the fascia was incised with a new knife just above any perforators from the IT band. The TFL muscle belly was bluntly dissected away from the fascia and moved laterally. The fat between TFL and rectus was identified to ensure the dissection was not within the TFL. Blunt dissection created space between abductors and the capsule and retractor was placed over the lateral femoral neck. The fibers of the rectus femoris tendon were identified and these were freed from the anterior capsule. A second cobra retractor was placed around the medial femoral neck. The TFL was further retracted laterally to show the deep fascia. Careful dissection through this layer identified three main crossing vessels of the lateral femoral circumflex. These were cauterized in multiple locations and then cut without any noticeable bleeding. The TFL was further released bluntly from the deep fascia to expose anterior hip capsule and fat The Isauro orthopaedic retractor was then placed beneath the TFL and against sartorius and medial soft tissues to protect and retract the soft tissues. A T-capsulotomy was then performed starting at the superior lateral acetabulum and moving distally to the intertrochanteric ridge. These capsular flaps were tagged with a No. 1 Ethibond and elevated from within. The capsular flaps were released to the shoulder of the lateral neck and to the lesser trochanter to give excellent visualization of the proximal femur. A neck osteotomy was performed using an oscillating saw based on preoperative templates. This cut started in the shoulder and of the lateral neck and exited medially. The saw was at all times directed medially to avoid injury to the greater trochanter. Gross traction was applied to the leg and the osteotomy opened. The femoral head was removed with a corkscrew, making sure to protect the TFL on its exit. Traction was released after head removal. This was measured on the back table to determine the starting reamer size. Portions of the rectus obscuring visualization were minimally elevated off the superior acetabulum. An anterior retractor was placed over the anterior wall between capsule and labrum and attached to the Gripper retraction system. The femur was rotated to 90 degrees and medial capsule was fully released until the lesser trochanter was palpable and visible; the femur was returned to 30 degrees. A posterior retractor was placed similarly between capsule and labrum. This provided excellent visualization. The contents of the cotyloid fossa were removed with electrocautery and the labrum was removed with a knife. Acetabular reaming began with a 46mm reamer. This first reaming was directed anterior to posterior and medial to get down to the true floor. This was inspected and reamed until the true floor was reached. The anterior retractor was then released and entry and exit was provided by traction on the capsular flaps. I then reamed sequentially up to a 50mm reamer where good fit was obtained. The larger reamers were oriented based on anatomical reference of the anterior and lateral grewal to ensure proper abduction and anteversion. Positioning and size was confirmed with the fluoroscopy. A 50mm Depuy [place] acetabular component was selected. The deep tissues were irrigated. The acetabular component was then impacted in a position of about 40-45 degrees of abduction and 15-20 degrees of anteversion, using the patient?s anatomy as the ultimate landmark. Fluoroscopy was used to confirm this. There was excellent city bus driver of the acetabular component and the inserting handle was removed. The acetabular liner, Depuy [id number] polyethylene liner, was inserted and lined up with the tines of the acetabular component. There was no soft tissue interposition. The liner was then impacted into position and confirmed to be well-seated. A portion of the ruben-articular cocktail was then injected around the acetabulum into the capsule and periosteum. This cocktail consisted of 50cc of 0.25% Bupivicaine and 20cc of Exparel and 30mg of Ketorolac. The leg was rotated to 120 degrees. Any remaining medial capsule was released until the lesser trochanter was easily palpable. A retractor was placed medially. The lateral capsule was further released into the shoulder to allow access to the greater trochanter. A Kowalski retractor was placed over the greater trochanter which allowed the trochanter to flip in front of the capsule for excellent exposure. The leg was brought down into maximal extension and 20 degrees of adduction while ensuring there was no impingement on the acetabulum. Any remnant capsule within the trochanter was released. Piriformis and obturator externis were identified and protected. There was excellent access to the proximal femur. The lateral neck remnant was removed with a rongeur. A blunt canal probe was used to identify the canal and trajectory for later broaching. A box osteotome initiated the broach course. A small curved rasp and a curved curette were used to remove lateral neck. Broaching then began with a starting broach from the ACTIS system. This was inserted manually around the trochanter and into the canal before mallet blows. The broach was seated to a few millimeters below the cut level based on the neck cut and the preoperative template. Sequential broaching was continued with the manual broach and the Kincise pneumatic broaching device until a tight fit was obtained with good rotational control of the femur. A trial standard neck was inserted along with a +1 trial head. The leg was brought out of extension and adduction and then reduced with traction and internal rotation. The leg was stable anteriorly in a position of 30 degrees of extension and 90 degrees of external rotation. Fluoroscopy was used to ensure there was no fracture and the stem was seated well. Leg lengths were checked with an AP pelvis and pelvic reference points. [facility] navigation system was used to confirm appropriate positioning and leg length and offset. No change were necesary. Once content with the desired offset and leg lengths, the leg was brought back into extension, external rotation and adduction. The periosteum and surrounding tissue was injected with remaining portion of the ruben-articular cocktail. The proximal femur was irrigated as well as the deep tissues. The Depuy Actis collared stem, size 4, was then manually inserted into the proximal femur making sure to control rotation. It was then malleted into position with light blows, giving breaks to allow bone expansion and decrease risk of fracture. The selected Depuy Altrx Ceramic Head, size 32+1mm, was then placed onto the clean and dry trunnion and secured with impaction onto the tapered fit. The leg was brought back out of extension and adduction and reduced with traction and internal rotation. Stability was confirmed with no shuck at 90 degrees of external rotation and 30 degrees of extension. No impingement through range of motion arc. Final x-ray images were obtained with fluoroscopy to confirm adequate positioning and no intraoperative fracture. The deep tissues were thoroughly irrigated with Irrisept chlorhexadine solution. The capsule was then reapproximated with the previously placed Ethibond sutures. The TFL fascia was finally closed with a No. 2 Stratafix, barbed suture. Deep tissues were then reapproximated with 0 Vicryl and a running 2-0 Vicryl. The skin was closed with a running 4-0 Monocryl in a subcuticular fashion. This was reinforced with skin glue. A Mepilex silver dressing was applied. At the end of the case, all counts were correct. Paul was transferred to the hospital bed without difficulty and suffering no apparent complication. Paul has a good prognosis. Physical therapy will start today and without restrictions, weight-bearing as tolerated. Aspirin 81mg BID will be used for DVT prophylaxis.
--- NOTE | 2021-07-27 12:40 | PT.INIE ---
Date of service: 07/27/21 Time of Service: 12:40 PT Notes Visit Reasons: Right BRAYDON Physical Therapy Day Surgery Initial Evaluation Date: 07/27/2021 Referring Doctor: ELSY Clinton PT Orders: PT CONSULT: Status post Ortho surgery Precautions: WBAT on right LE with AD. 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 PMHX: Active Problem List (Updated 07/19/21 @ 14:32 by Ursula Villatoro) Avascular necrosis of right femoral head (Acute) Avascular necrosis of bone of left hip (Acute) Chest pain (Acute) Hepatic steatosis (Acute) COVID-19 ruled out (Acute) Tobacco abuse (Acute) Impairment of balance (Acute) Chronic vertigo (Acute) Hypokalemia (Acute) Alcohol withdrawal (Acute) Electrolyte and fluid disorder (Acute) Medical History (Updated 07/19/21 @ 14:32 by Ursula Villatoro) Alcoholism LAST DRINK WAS 2 WKS AGO Surgical History (Updated 07/19/21 @ 14:32 by Ursula Villatoro) Cyst of right upper eyelid Social History/Home Situation: Lives alone in a private home with 3 steps to enter with a rail on the right side. 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 Independent with all aspects of ADLs prior to surgery. Equipment Owned/DME: None Subjective: Agreeable to consult. Denies falls in the past year. Reports 8/10 pain at rest that went down to 6/10 after ambulation activity. Also reported stiffness that subsided with exercises and mobilization. Objective: General Observation: Supine on stretcher. Mepilex Ag over surgical incision. TEDS in both legs. Mental Status: Alert and oriented x4 Pain: 8/10 at rest and 6/10 after ambulation activity in the right hip ROM: Right Lower Extremity: Hip flexion WFL. Hip abduction WFL. Knee flexion WFL. Ankle dorsiflexion WFL. Ankle plantarflexion WFL. Left Lower Extremity: Hip flexion WFL. Hip abduction WFL. Knee flexion WFL. Ankle dorsiflexion WFL. Ankle plantarflexion WFL. Strength: Right Lower Extremity: Hip flexors 4-/5. Hip abductors 4-/5. Knee flexors 5/5. Knee extensors 4-/5. Ankle dorsiflexors 5/5. Ankle plantarflexors 5/5. Left Lower Extremity:Hip flexors 5/5. Hip abductors 5/5. Knee flexors 5/5. Knee extensors 5/5. Ankle dorsiflexors 5/5. Ankle plantarflexors 5/5. Sensation: Denies numbness and tingling throughout to BLE. Intact as to pain and light pressure in bilateral lower extremities. Bed Mobility/Transfers: Supine to sit supervision Sit to stand standby assist Stand to sit standby assist Bed to chair standby assist Gait: Instructed patient with level surface ambulation using front wheeled walker for up to 150 feet requiring wheeled walker with step through gait pattern; 30 feet with bilateral axillary crutches with three-point gait pattern. Patient preferred taking home the bilateral axillary crutches as he feels more comfortable using them. Denies headache, chest pain, and lightheadedness throughout activity. Stairs: Negotiated up and down 6 x 4 inch steps and 4 x 6 inch steps while holding onto 1 rail with step to gait pattern without report of increased pain in the right hip. Standby assist provided. Balance: Static Sitting: Normal Dynamic Sitting: Normal Static Standing: Fair Dynamic Standing: Fair Special Tests: Mobility Limitations Standardized Measure [facility]-P[facility] 6 clicks Basic Mobility Inpatient Short Form: Raw Score: 24 CMS Score: 0% deficit Informed Consent/Education: Patient was instructed in purpose of PT consult. Education and training on initial set of exercises that can be done at home have been completed with patient. Advised patient to refer to Vettery reyna on smart phone for review and guidance of said safe post-operative exercises covered today. Assessment: Chart demonstrates the need for use of bilateral axillary crutches to maximize independence and reduce fall risk. Will have support from family as he recovers. Patient presents with clinical signs and symptoms consistent with current/admitting diagnoses that have resulted to mobility limitations and gait instability as demonstrated by the following impairment level findings: 1. Decreased strength to right hip major muscle groups 2. Impaired standing balance 3. Pain in R hip as above Impairments are contributing to the following functional limitations: 1. Inability to safely ambulate without assistive device 2. Increase completion time for mobility ADL performance 3. Increased fall risk Patient is assessed as a 71854 moderate complexity based on the following: History: 46-year-old male with impairment level findings, functional limitations, and past medical history as indicated above Examination: Demonstrable impairment in strength, balance, and mobility level with underlying impairments and functional limitations as documented above Presentation: Evolving Decision Makin moderate complexity Goals: N/A. PT evaluation and 1-2 treatment sessions only for functional mobility training using recommended AD and for HEP instruction. Plan of Care/Treatment Plan: N/A. PT evaluation and 1-2 treatment session only for functional mobility training using recommended AD and for HEP instruction. DISCHARGE RECOMMENDATIONS: [] Home with no services [] [X] Home with services. Home when medically cleared by orthopedic surgeon. Outpatient physical therapy services in order to facilitate return to premorbid independent mobility level in the community without an assistive device and promote return to vocational activities. [] Home with outpatient PT [] [] SNF for continued rehabilitation [] [] [facility] [] [] SNF versus LTC based on ability to participate and progress [] TREATMENT CODE/TIME: 42109 x 20 minutes, 29463 x 30 minutes beginning at 12:40 PM. Thank you for the opportunity to participate in the care of this patient. Carey Trevino PT, DPT, CLT [facility] [place], [place]
[2021-07-27] MEDS: oxyCODONE 5 MG TAB PO (13:27)
--- NOTE | 2021-07-27 13:41 | W.ANESPOSTOP ---
Postoperative Evaluation Date, Time and Location Date Performed: 07/27/21 Time Performed: 13:41 Patient Location: Day Surgery Unit Vital Signs Most Recent Imported Vital Signs: Most Recent Vital Signs Temp Pulse Resp BP Pulse Ox 36.5 C 60 16 105/72 99 07/27/21 11:51 07/27/21 11:51 07/27/21 11:51 07/27/21 11:51 07/27/21 11:51 Pain Score Most Recent Pain Score: Most Recent Pain Score Pain Level 3 07/27/21 11:51 Assessment Mental Status: Awake (Alert & Oriented to Patient Baseline) Airway and Respiratory Function: Patent airway with normal (patient baseline) respiratory exam Cardiovascular Function: Hemodynamically Stable Hydration Status: Adequately Hydrated Nausea & Vomiting: No Nausea or Vomiting Pain: Pain is tolerable per patient Peripheral Nerve Block: Patient did not receive a nerve block
== END 2021-07-27 14:10 | disposition home or self-care (01) ==
LOC: SUR 07:14
PROVIDERS: PCP Nurse Practitioner Family; Visit Provider Student in an Organized Health Care Education/Training Program
PROC: (CPT 27130; principal; 2021-07-27 09:15)
DX: M87.051 Idiopathic aseptic necrosis of right femur (principal); K76.0 Fatty (change of) liver, not elsewhere classified; E87.6 Hypokalemia; F17.210 Nicotine dependence, cigarettes, uncomplicated
CPT/HCPCS: 27130; 20985; 88305; 97162; 97530; 73501; 88304; 88311; J0690; J1885; J2001; J2405

== ENCOUNTER 2021-08-09 15:00 | Outpatient (CLI) | payer MEDICAID, SELFPAY ==
--- NOTE | 2021-08-09 13:15 | DI.RAD_ITS ---
Exam(s) XR HIP RT COMPLETE AP PELVIS EXAM: XR HIP RT COMPLETE AP PELVIS INDICATION: 1st post op R BRAYDON. COMPARISON: XR HIP RT IN OR from 07/27/2021 XR HIP RT IN OR from 07/27/2021 TECHNIQUE: 2D digital imaging was performed. FINDINGS: There has been no change in the alignment of the right hip prosthesis or appearance of the surroundin g bone. [id number] degenerative changes noted in the left hip. IMPRESSION: Stable appearance of right hip prosthesis. DATA REPOSITORY: RADIATION DOSE DELIVERED:
== END 2021-08-09 15:01 | disposition home or self-care (01) ==
LOC: DIORS 15:00
PROVIDERS: PCP Nurse Practitioner Family; Visit Provider Physician Assistant Surgical
DX: Z96.641 Presence of right artificial hip joint (principal); Z47.1 Aftercare following joint replacement surgery
CPT/HCPCS: 73502

== ENCOUNTER 2021-10-29 22:22 | Emergency (ER) | payer MEDICAID, SELFPAY ==
[2021-10-29] VITALS (17 sets, daily range): BP systolic 109–142; BP diastolic 74–98; PULSE 88–110; RESP 15–28; TEMP 36.6–37.1; O2SAT 94–100
--- NOTE | 2021-10-29 22:15 | RT.EKG_ITS ---
APPROVED REPORT Exam: Resting ECG Reason for Exam: chest pain Patient Location: E HR:96 bpm ECG Measurements Heart Rate 96 AXIS OR 178 P 8 QRSd 92 QRS 14 QT 351 T 51 QTc 443 Conclusion Sinus rhythm...normal P axis, V-rate 60- 99 Physician: no stemi, unchanged from prior ekg
--- NOTE | 2021-10-29 22:30 | DI.RAD_ITS ---
Exam(s) XR CHEST 2V PA LATERAL EXAM: XR CHEST 2V PA LATERAL CLINICAL HISTORY: right upper chest pain. TECHNIQUE: 2D digital imaging was performed. COMPARISON: CR XR CHEST 2V PA LATERAL from 04/09/2020 FINDINGS: Heart size is normal. The mediastinum is not widened. Lungs are clear. No infiltrates nor pleural effusions. IMPRESSION: No acute pulmonary findings. DATA REPOSITORY: RADIATION DOSE DELIVERED:
--- NOTE | 2021-10-29 22:43 | ED.GENADUL_ITS ---
Discharge Plan Disposition Patient Disposition: AGAINST MEDICAL ADVICE Condition: Good Discharge Details Clinical Impression: Chest pain, Hypokalemia Primary Care Provider: Jerrica Gomes ED Provider: Manolo Jeffers Home Meds and New Rx's Prescriptions: Continued multivitamin [Multiple Vitamins] Tablet 1 tab PO DAILY Qty: 10 0RF chlordiazepoxide HCl 25 mg capsule 25 mg PO Q12H PRNQty: 6 0RF Discharge Instructions Instructions: Chest Pain (ED), Hypokalemia (ED) Additional Instructions: Your blood work showed your potassium was low. You did not want to stay for futher testing. follow up with your primary care provider within 1 week if you feel more ill, have severe worsening pain or difficulty breathing return to the emergency department do not drink alcohol with the [employer] Medical Decision Making <Alejandro Thomas, - Last Filed: 10/29/21 22:48> 46-year-old male with a past medical history of chronic alcoholism drinking a half a gallon of vodka every day, tobacco use, who presents today for chest pain. Patient states that he has been drinking his regular normal amount of daily alcohol, however today about an hour prior to arrival he developed right upper chest pain which she describes as an achy sensation. There is a ple uritic component as well worse with occasional breath. He denies any new cough, fever or chill. EMS was called, and upon their arrival they gave aspirin and nitroglycerin which did help improve his pain. Patient states that his chest pain feels identical to the chest pain he has gotten before when he drinks excessive amounts of alcohol. He denies any history of seizures or DTs. He denies any tearing or ripping sensation. He denies any history of blood clots. No other complaints at this time. No other modifying factors. Physical exam demonstrates a mildly intoxicated male, vital signs demonstrate mild tachycardia. Mild reproducible right upper chest pain. Pain is present on exam with palpation, and worsens with palpation. No evidence of rash or other abnormality though. Bedside limited ultrasound demonstrates unremarkable cardiac limited echo. Good contractility, EF around 60 to 65%. Right ventricle does not appear dilated. Good cardiac wall motion. Trace pericardial effusion, and small fat pad are present. No evidence of tamponade. Symptoms at this time are likely secondary to alcoholism, but cardiac etiology is certainly on the differential although lower. Screening EKG shows no significant abnormality. We will rehydrate, chest x-ray, assess cardiac component, monitor closely and reassess. At this time symptoms appear notably less likely for PE. <Manolo Jeffers MD - Last Filed: 10/30/21 00:07> 46-year-old male with a past medical history of chronic alcoholism drinking a half a gallon of vodka every day, tobacco use, who presents today for chest pain. Patient states that he has been drinking his regular normal amount of daily alcohol, however today about an hour prior to arrival he developed right upper chest pain which she describes as an achy sensation. There is a pleuritic component as well worse with occasional breath. He denies any new cough, fever or chill. EMS was called, and upon their arrival they gave aspirin and nitroglycerin which did help improve his pain. Patient states that his chest pain feels identical to the chest pain he has gotten before when he drinks excessive amounts of alcohol. He denies any history of seizures or DTs. He denies any tearing or ripping sensation. He denies any history of blood clots. No other complaints at this time. No other modifying factors. Physical exam demonstrates a mildly intoxicated male, vital signs demonstrate mild tachycardia. Mild reproducible right upper chest pain. Pain is present on exam with palpation, and worsens with palpation. No evidence of rash or other abnormality though. Bedside limited ultrasound demonstrates unremarkable cardiac limited echo. Good contractility, EF around 60 to 65%. Right ventricle does not appear dilated. Good cardiac wall motion. Trace pericardial effusion, and small fat pad are present. No evidence of tamponade. Symptoms at this time are likely secondary to alcoholism, but cardiac etiology is certainly on the differential although lower. Screening EKG shows no significant abnormality. We will rehydrate, chest x-ray, assess cardiac component, monitor closely and reassess. At this time symptoms appear notably less likely for PE. patient's labs unremarkable other than K of 2.8 likely from malnutrition, will replete and recheck. D dimer still pending. Will also obtain delta troponin. Pt remains stable feeling well now. d dimer negative. Patient continues to feel well though he does feel anxious which he states starts when he feels like he is going into detox. He is normotensive and has no tremors or tachycardia, HR now 90, and has no other signs of withdrawal. I discussed with him we normally like to perform delta troponin and ecg vs observation admission. He is clinically sober, caox4 with normal speech. HE has capacity to make his own decisions and does not want to stay. Discussed that this could lead him to possibly or become permanently disabled if an OR is missed and he is willing to accept these risks. HE is leaving against medical advise. He understands he can return at any time if he changes his mind. HE does state he wants to try medicine to try and ease withdrawal symptoms so he can avoid alcohol. Discussed risks and benefits of librium and he would like to try this. He understands not to drink alcohol with the librium. He was advised to f/u with his pcp and return precautions given. Medical Records Medical records reviewed: Yes I reviewed the patient's medical records. Imaging Data Radiologic Study: Attestation: I personally reviewed and interpreted this imaging study as follows: Imaging: X-Ray Radiologist's impression: PROCEDURE INFORMATION: Exam: XR Chest Exam date and time: 10/29/2021 10:34 PM Age: 46 years old Clinical indication: Other: Chest pain TECHNIQUE: Imaging protocol: XR of the chest. Views: 2 views. COMPARISON: CR XR CHEST 2V PA LATERAL 04/09/2020 11:53 AM FINDINGS: Lungs: Unremarkable. No consolidation. Pleural spaces: Unremarkable. No pleural effusion. No pneumothorax. Heart/Mediastinum: Unremarkable. No cardiomegaly. Bones/joints: Unremarkable. IMPRESSION: 1. No acute findings. 2. Stable exam since 04/09/2020. HPI <Alejandro Thomas DO - Last Filed: 10/29/21 22:48> General Date/Time Provider Initiated Documentation: 10/29/21 22:35 . HPI Narrative: 46-year-old male with a past medical history of chronic alcoholism drinking a half a gallon of vodka every day, tobacco use, who presents today for chest pain. Patient states that he has been drinking his regular normal amount of daily alcohol, however today about an hour prior to arrival he developed right upper chest pain which she describes as an achy sensation. There is a pleuritic component as well worse with occasional breath. He denies any new cou gh, fever or chill. EMS was called, and upon their arrival they gave aspirin and nitroglycerin which did help improve his pain. Patient states that his chest pain feels identical to the chest pain he has gotten before when he drinks excessive amounts of alcohol. He denies any history of seizures or DTs. He denies any tearing or ripping sensation. He denies any history of blood clots. No other complaints at this time. No other modifying factors. Related Data Home Medications Medication Instructions Recorded Confirmed multivitamin (Multiple Vitamins) 1 tab PO DAILY #10 tab 04/11/20 09/09/21 chlordiazepoxide HCl 25 mg capsule 25 mg PO Q12H PRN #6 cap 10/30/21 Previous Rx's Medication Instructions Recorded multivitamin (Multiple Vitamins) 1 tab PO DAILY #10 tab 04/11/20 chlordiazepoxide HCl 25 mg capsule 25 mg PO Q12H PRN #6 cap 10/30/21 Allergies Allergy/AdvReac Type Severity Reaction Status Date / Time No Known Allergies Allergy Unverified 09/09/21 09:48 General Stated Complaint: Chest Pain SARAH: 3 Review of Systems <Alejandro Thomas DO - Last Filed: 10/29/21 22:48> All systems reviewed & are unremarkable except as noted in HPI and below PFSH <Alejandro Thomas DO - Last Filed: 10/29/21 22:48> All Active Problems (Updated 10/30/21 @ 00:04 by Manolo Jeffers MD) Chest pain (Acute) Avascular necrosis of bone of left hip (Acute) Chest pain (Acute) due to ETOH Hepatic steatosis (Acute) COVID-19 ruled out (Acute) Tobacco abuse (Acute) Impairment of balance (Acute) Chronic vertigo (Acute) Hypokalemia (Acute) Alcohol withdrawal (Acute) Electrolyte and fluid disorder (Acute) Medical History Alcoholism LAST DRINK WAS 2 WKS AGO Surgical History Cyst of right upper eyelid 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) Family History Maternal Grandfather Alcohol abuse Maternal Uncle Alcohol abuse Social History Smoking/Tobacco Use Status: Current every day Tobacco Type: cigarettes Smoking packs per day: 1 Smoking cigarettes per day: 20.0 Years smoked: 25 Smoking pack- years: 25.00 Smoking risk assessment performed?: Yes Alcohol Intake: current Alcohol Intake frequency: 3 or more drinks per day Alcohol type: beer and hard liquor Details: last drink was 2 weeks ago Drug use: Occasionally Substance use type: marijuana Details: Pt last used couple weeks ago. 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 3.ENT: Atraumatic external nose and ears. Moist MM. Neck: Symmetric, trachea midline, No thyromegaly. 4.CVS: +S1/S2, No murmurs or gallops. Peripheral pulses 2+ and equal in all extremities. Brisk capillary refill in all extremities. 5.RESP: Unlabored respiratory effort. Clear to auscultation bilaterally. No wheezes rales or rhonchi 6.GI: Soft, Nontender/Nondistended, No hepatosplenomegaly. No guarding or rebound. 7.MSK: Normocephalic/Atraumatic, Extremities w/o deformity or ttp No cyanosis or clubbing, Normal movement of all extremities 8.Skin: Warm, Dry. No rashes or lesions. 9.Neuro: therapeutic riding instructor II-XII grossly intact. Sensation grossly intact, no focal neurologic deficits. 10.Psych: (AAO) x3. Mildly intoxicated appearing appropriate mood and affect Course <Alejandro Thomas DO - Last Filed: 10/29/21 22:48> Vital Signs Vital signs: Vital Signs Temperature 36.6 C 10/29/21 22:21 Pulse 103 H 10/29/21 22:21 Respiratory Rate 18 10/29/21 22:21 Blood Pressure 142/98 H 10/29/21 22:21 Pulse Oximetry 98 10/29/21 22:21 Temperature 36.6 C 10/29/21 22:21 Temperature Source Tympanic 10/29/21 22:21 Pulse 103 H 10/29/21 22:21 Respiratory Rate 18 10/29/21 22:21 Respiratory Effort 10/29/21 22:27 Respiratory Depth Normal 10/29/21 22:27 Respiratory Pattern Normal 10/29/21 22:27 Blood Pressure 142/98 H 10/29/21 22:21 Blood Pressure Position Supine 10/29/21 22:21 Pulse Oximetry 98 10/29/21 22:21 Oxygen Delivery Method Room Air 10/29/21 22:21 Oxygen Flow Rate 0 10/29/21 22:21 Pain Level 6 10/29/21 22:21 Sign Out <Alejandro Thomas DO - Last Filed: 10/29/21 22:48> Sign Out Data: Sign Out Comment: pending work-up for chest pain. Last updated by Alejandro Thomas DO at 10/29/21 22:49
[2021-10-29 22:44] LABS: Abs Immature Grans 0.03 10^3/uL (0.0-0.06); Absolute Basophil Count 0.08 10^3/uL (0.0-0.2); Absolute Eosinophil Count 0.07 10^3/uL (0.0-0.7); Absolute Lymphocyte Count 3.27 10^3/uL (1.2-3.4); Absolute Monocyte Count 0.53 10^3/uL (0.1-0.8); Absolute Neutrophil Count 4.76 10^3/uL (1.2-6.7); Basophils % 0.9; Eosinophils % 0.8; HCT 45.4 % (40.0-50.0); HGB 15.5 g/dL (13.5-17.5); Immature Grans % 0.3; Lymphocytes % 37.4; MCH 31.4 pg (27.0-33.0); MCHC 34.1 % (32.0-36.0); MCV 92.1 fL (80-95); MPV 9.4 fL (8.0-11.0); Monocytes % 6.1; Neutrophils % 54.5; Nucleated RBC 0 %; Platelet Count 214 10^3/uL (130-400); RBC 4.93 10^6/uL (4.36-5.78); RDW-SD 44.1 fL; WBC 8.74 10^3/uL (4.4-10.8)
[2021-10-29] MEDS: Normal Saline 1,000 ML 1000 ML IV (22:47)
[2021-10-29 23:04] LABS: ALT 167 U/L (16-63); AST 93 U/L (15-37); Albumin 3.2 g/dL (3.4-5.0); Alkaline Phosphatase 66 U/L (46-116); Anion Gap 19.3 mmol/L (3-11); BUN 11 mg/dL (7-18); Bilirubin, Total 0.2 mg/dL (0.2-1.0); CO2 15.7 mmol/L (21.0-32.0); CREATININE 0.6 mg/dL (0.70-1.30); Chloride 109 mmol/L (98-107); Glucose 81 mg/dL (74-106); Lipase 171 U/L (73-393); Sodium 144 mmol/L (136-145); Total Protein 6.8 g/dL (6.4-8.2); Troponin I < 50 ng/L (<or=60)
[2021-10-29 23:05] LABS: NT-proBNP < 5 pg/mL (<300)
[2021-10-29 23:06] LABS: Potassium 2.8 mmol/L (3.5-5.1)
[2021-10-29] MEDS: Potassium Chloride 20 MEQ TABCR 80 MEQ PO (23:14)
--- NOTE | 2021-10-29 23:18 | DI.VRAD_ITS ---
PROCEDURE INFORMATION: Exam: XR Chest Exam date and time: 10/29/2021 10:34 PM Age: 46 years old Clinical indication: Other: Chest pain TECHNIQUE: Imaging protocol: XR of the chest. Views: 2 views. COMPARISON: CR XR CHEST 2V PA LATERAL 04/09/2020 11:53 AM FINDINGS: Lungs: Unremarkable. No consolidation. Pleural spaces: Unremarkable. No pleural effusion. No pneumothorax. Heart/Mediastinum: Unremarkable. No cardiomegaly. Bones/joints: Unremarkable. IMPRESSION: 1. No acute findings. 2. Stable exam since 04/09/2020. Dictated and Authenticated by: Javan Maldonado MD. Ordering:IFEANYI Allen MD
[2021-10-29] MEDS: Nicotine 4 MG GUM CH (23:24)
[2021-10-29 23:32] LABS: D-Dimer 443 ng/mlFEU (<500)
[2021-10-30 00:06] VITALS: BP 126/90; PULSE 94; RESP 15; TEMP 37.1; O2SAT 95
[2021-10-30] MEDS: chlordiazePOXIDE 25 MG CAP 50 MG PO (00:06)
--- NOTE | 2021-10-30 09:52 | NUR.NOTE ---
[facility] called, will not have [address] dose until monday[address] Guzman consulted and patient is to receive 10 mg capsules #12. Take 20 mg q12h prn.
== END 2021-10-30 00:11 | disposition left against medical advice (07) ==
PROVIDERS: Student in an Organized Health Care Education/Training Program; Emergency Provider Emergency Medicine; PCP Nurse Practitioner Family
DX: R07.9 Chest pain, unspecified (principal); E87.6 Hypokalemia; Z53.29 Procedure and treatment not carried out because of patient's decision for other reasons; F10.20 Alcohol dependence, uncomplicated; F17.210 Nicotine dependence, cigarettes, uncomplicated
CPT/HCPCS: 80048; 80053; 83690; 93005; 96360; 99284; 71046; 83880; 84484; 85025; 85379; 93010

== ENCOUNTER 2021-11-07 21:52 | Emergency (ER) | payer MEDICAID, SELFPAY ==
[2021-11-07] VITALS (21 sets, daily range): BP systolic 118–172; BP diastolic 75–109; PULSE 74–118; RESP 15–24; TEMP 37.3; O2SAT 90–97
[2021-11-07] MEDS: LORazepam 2 MG/ML VIAL IVP (22:05)
[2021-11-07] MEDS: chlordiazePOXIDE 25 MG CAP 100 MG PO (22:05)
[2021-11-07 22:08] LABS: Abs Immature Grans 0.02 10^3/uL (0.0-0.06); Absolute Basophil Count 0.09 10^3/uL (0.0-0.2); Absolute Eosinophil Count 0.22 10^3/uL (0.0-0.7); Absolute Lymphocyte Count 3.34 10^3/uL (1.2-3.4); Absolute Monocyte Count 1.02 10^3/uL (0.1-0.8); Absolute Neutrophil Count 3.39 10^3/uL (1.2-6.7); Basophils % 1.1; Eosinophils % 2.7; HCT 44.4 % (40.0-50.0); HGB 15.4 g/dL (13.5-17.5); Immature Grans % 0.2; Lymphocytes % 41.3; MCH 31.3 pg (27.0-33.0); MCHC 34.7 % (32.0-36.0); MCV 90.2 fL (80-95); Monocytes % 12.6; Neutrophils % 42.1; Nucleated RBC 0 %; Platelet Count 240 10^3/uL (130-400); RBC 4.92 10^6/uL (4.36-5.78); RDW 13.1 % (11.8-14.1); RDW-SD 42.8 fL; WBC 8.08 10^3/uL (4.4-10.8)
[2021-11-07] MEDS: MAGNESIUM SULFATE 8.12 MEQ, MULTIVITAMIN 10 ML, THIAMINE 100 MG, FOLIC ACID 1 MG in Nor... 168.867 MG IV (22:18)
--- NOTE | 2021-11-07 22:21 | ED.GENADUL_ITS ---
Discharge Plan Disposition Patient Disposition: HOME Condition: Good Discharge Details Clinical Impression: Alcohol withdrawal, Acute hypokalemia Primary Care Provider: Jerrica Gomes ED Provider: Alejandro Thomas Home Meds and New Rx's Prescriptions: New chlordiazepoxide HCl 25 mg capsule 25 mg PO BID PRNQty: 24 0RF Rx Instructions: Take 3 tablets every 6 hours for 1 day. THEN Take 2 tablets every 6 hours for 1 day. THEN Take 1 tablets every 6 hours for 1 day. Continued multivitamin [Multiple Vitamins] Tablet 1 tab PO DAILY Qty: 10 0RF Discontinued chlordiazepoxide HCl 25 mg capsule 25 mg PO Q12H PRNQty: 6 0RF Discharge Instructions Instructions: Alcohol Withdrawal (ED) Additional Instructions: Your potassium levels were slightly low. He did give you additional potassium here. Please continue to eat foods high in potassium at home including legumes, avocados and bananas. Please continue to avoid alcohol moving forward. Please take the chlordiazepoxide/Librium as directed. If you notice any worsening of your symptoms, or any new symptoms such as vomiting, diarrhea, fever, chills, shortness of breath, chest pain, numbness, weakness, or fainting , please return immediately to the emergency department for reevaluation. Please follow up with your primary care provider as soon as possible for reassessment and reevaluation. As always, it was a pleasure participating in your medical care today. Referrals: Jerrica Gomes [Primary Care Provider] - Discharge Data Discharge Date/Time-TO BE ENTERED AT DEPARTURE: 11/08/21 01:11 Medical Decision Making 46-year-old male with past medical history of chronic alcoholism, who presents today for withdrawal symptoms. Patient states that he drank over a gallon over the last day or so of vodka. Last drink was 4 PM. Since then he has been notably tremulous, he has been seeing small spots in his vision, he feels agitated like he is writhing around in his skin, he has headache, nausea, and feels like he is withdrawing again. He denies any chest pain or shortness of breath. He denies any pleuritic chest pain. He denies any abdominal pain. No other complaints at this time. No other modifying factors. He denies any homicidal or suicidal ideations. Physical exam demonstrate agitation, tremulousness, CIWA score between 15 and 19. Will give Ativan, banana bag, normal saline, 100 mg of Librium. Will monitor closely and reassess. Symptoms inconsistent with ACS, severe otitis, no other significant abnormality. At this time symptoms are clinically consistent with mild withdrawal symptoms 1 AM Laboratory work-up demonstrates transaminitis, which is chronic and not acutely reflective of his alcohol use. He is mildly hypokalemic. He was given addit ional potassium here, 20 IV and 40 oral. No white count bandemia or left shift. Patient otherwise stable. On reassessment the patient CIWA score has transitioned from about 19 to essentially 2 or 3. He feels much better and feels comfortable going home. We will give him a dose of Librium to go home with and a prescription as well. The patient is able to speak clearly. There is no demonstration of any slurring of speech. There is evidence of clear decision making capacity. Patient is able to ambulate well without any difficulty. There are no signs of ataxia or stumbling motions. We have placed a referral with the recovery coaches. Patient stable for discharge. I have extensively reviewed the treatment plan and discharge instructions with the patient. I have addressed all patient concerns at this time. The patient was made aware of what symptoms to monitor for that would warrant a return to the emergency department. Discussed the plan with the patient, they demonstrate verbal understanding and agreement with our assessment and plan at this time. The documentation in this chart was dictated using [employer] dictation software. Please excuse any dictation errors. HPI General Date/Time Provider Initiated Documentation: 11/07/21 21:53 . HPI Narrative: 46-year-old male with past medical history of chronic alcoholism, who presents today for withdrawal symptoms. Patient states that he drank over a gallon over the last day or so of vodka. Last drink was 4 PM. Since then he has been notably tremulous, he has been seeing small spots in his vision, he feels agitated like he is writhing around in his skin, he has headache, nausea, and feels like he is withdrawing again. He denies any chest pain or shortness of breath. He denies any pleuritic chest pain. He denies any abdominal pain. No other complaints at this time. No other modifying factors. He denies any homicidal or suicidal ideations. Related Data Home Medications Medication Instructions Recorded Confirmed multivitamin (Multiple Vitamins) 1 tab PO DAILY #10 tab 04/11/20 09/09/21 chlordiazepoxide HCl 25 mg capsule 25 mg PO BID PRN #24 cap 11/07/21 Previous Rx's Medication Instructions Recorded multivitamin (Multiple Vitamins) 1 tab PO DAILY #10 tab 04/11/20 chlordiazepoxide HCl 25 mg capsule 25 mg PO BID PRN #24 cap 11/07/21 Allergies Allergy/AdvReac Type Severity Reaction Status Date / Time No Known Allergies Allergy Unverified 09/09/21 09:48 General Stated Complaint: ETOHWithdr SARAH: 3 Review of Systems All systems reviewed & are unremarkable except as noted in HPI and below PFSH All Active Problems (Updated 11/07/21 @ 23:56 by Alejandro Thomas DO) Chest pain (Acute) Acute hypokalemia (Acute) Avascular necrosis of bone of left hip (Acute) Chest pain (Acute) due to ETOH Hepatic steatosis (Acute) COVID-19 ruled out (Acute) Tobacco abuse (Acute) Impairment of balance (Acute) Chronic vertigo (Acute) Hypokalemia (Acute) Alcohol withdrawal (Acute) Electrolyte and fluid disorder (Acute) Medical History Alcoholism LAST DRINK WAS 2 WKS AGO Surgical History Cyst of right upper eyelid 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) Family History Maternal Grandfather Alcohol abuse Maternal Uncle Alcohol abuse Social History Smoking/Tobacco Use Status: Current every day Tobacco Type: cigarettes Smoking packs per day: 1 Smoking cigarettes per day: 20.0 Years smoked: 25 Smoking pack- years: 25.00 Smoking risk assessment performed?: Yes Alcohol Intake: current Alcohol Intake frequency: 3 or more drinks per day Alcohol type: beer and hard liquor Details: last drink was 2 weeks ago Drug use: Never 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 3.ENT: Atraumatic external nose and ears. Moist MM. Neck: Symmetric, trachea mi dline, No thyromegaly. 4.CVS: +S1/S2, No murmurs or gallops. Peripheral pulses 2+ and equal in all extremities. Brisk capillary refill in all extremities. 5.RESP: Unlabored respiratory effort. Clear to auscultation bilaterally. No wheezes rales or rhonchi 6.GI: Soft, Nontender/Nondistended, No hepatosplenomegaly. No guarding or rebound. 7.MSK: Normocephalic/Atraumatic, Extremities w/o deformity or ttp No cyanosis or clubbing, Normal movement of all extremities 8.Skin: Warm, Dry. No rashes or lesions. 9.Neuro: prototype special build II-XII grossly intact. Sensation grossly intact, no focal neurolog ic deficits. 10.Psych: Somewhat anxious appearing, CIWA score between 15 and 19 Course Vital Signs Vital signs: Vital Signs Temperature 37.3 C 11/07/21 21:55 Pulse 118 H 11/07/21 21:55 Respiratory Rate 24 11/07/21 21:55 Pulse Oximetry 95 11/07/21 21:55 Temperature 37.3 C 11/07/21 21:55 Temperature Source Temporal Artery Scan 11/07/21 21:55 Pulse 118 H 11/07/21 21:55 Respiratory Rate 24 11/07/21 21:55 Respiratory Effort Non-Labored 11/07/21 21:59 Respiratory Pattern Normal 11/07/21 22:01 Blood Pressure Position Supine 11/07/21 21:55 Pulse Oximetry 95 11/07/21 21:55 Oxygen Delivery Method Room Air 11/07/21 21:55 Oxygen Flow Rate 0 11/07/21 21:55 Pain Level 0 11/07/21 21:55 Lab/Test Results Lab/Test Results: Laboratory Tests Range/Units 11/07/21 22:05 WBC (4.4-10.8) 10^3/uL 8.08 RBC (4.36-5.78) 10^6/uL 4.92 Hgb (13.5-17.5) g/dL 15.4 Hct (40.0-50.0) % 44.4 MCV (80-95) fL 90.2 MCH (27.0-33.0) pg 31.3 MCHC (32.0-36.0) % 34.7 RDW (11.8-14.1) % 13.1 Plt Count (130-400) 10^3/uL 240 MPV (8.0-11.0) fL 9.0 Immature Gran % 0.2 Neutrophils % 42.1 Lymphocytes % 41.3 Monocytes % 12.6 Eosinophils % 2.7 Basophils % 1.1 Nucleated RBC % % 0 Absolute Neutrophils (1.2-6.7) 10^3/uL 3.39 Absolute Lymphocytes (1.2-3.4) 10^3/uL 3.34 Absolute Monocytes (0.1-0.8) 10^3/uL 1.02 H Absolute Eosinophils (0.0-0.7) 10^3/uL 0.22 Absolute Basophils (0.0-0.2) 10^3/uL 0.09 PAWSS Have you Been Recently Intoxicated or Drunk Within the Last 30 days?: Yes Have you Ever Experienced Previous Episodes of Alcohol Withdrawal?: Yes Have you ever Experienced Withdrawal Seizures?: No Have you ever Experienced Delirium Tremens(DT)s?: Yes Have you ever undergone Alcohol Rehabilitation Treatment (i.e, inpt ot outpatient treatment programs)?: Yes Have you ever Experienced Blackouts?: Yes Have you ever Combined Alcohol with other Downers within the last 90 days?: No Have you ever Combined Alcohol with any other Substance of Abuse during the last 90 days?: No Positive Blood Alcohol level on Presentation? [PCS.BAL]: Yes Evidence of Increased Autonomic Activity (i.e. HR>120, tremor, sweating, agitation, nausea)?: Yes Result: 7
[2021-11-07] MEDS: Normal Saline 1,000 ML 1000 ML IV (22:22)
[2021-11-07 22:25] LABS: ALT 180 U/L (16-63); AST 146 U/L (15-37); Albumin 4.2 g/dL (3.4-5.0); Alkaline Phosphatase 90 U/L (46-116); Anion Gap 14.7 mmol/L (3-11); BUN 7 mg/dL (7-18); Bilirubin, Total 0.4 mg/dL (0.2-1.0); CO2 23.3 mmol/L (21.0-32.0); CREATININE 0.8 mg/dL (0.70-1.30); Calcium 9.4 mg/dL (8.5-10.1); Chloride 99 mmol/L (98-107); ETHANOL BLOOD 36.8 mg/dL (<10); Glucose 125 mg/dL (74-106); Potassium 3.1 mmol/L (3.5-5.1); Sodium 137 mmol/L (136-145); Total Protein 8.7 g/dL (6.4-8.2)
[2021-11-07] MEDS: POTASSIUM CHLORIDE 20 MEQ/100 ML BAG 50 MEQ IVPB (22:33)
[2021-11-07] MEDS: Potassium Chloride 20 MEQ TABCR 40 MEQ PO (22:33)
[2021-11-08] VITALS: BP 128/73; PULSE 79; PULSE 80; RESP 18
[2021-11-08 00:01] VITALS: PULSE 85; RESP 18; O2SAT 93
[2021-11-08 00:10] VITALS: PULSE 77; RESP 14; O2SAT 92
[2021-11-08 00:15] VITALS: BP 130/79; PULSE 75; PULSE 88; RESP 18; O2SAT 94
[2021-11-08 00:16] VITALS: PULSE 77; RESP 21; O2SAT 90
[2021-11-08 00:20] VITALS: PULSE 82; RESP 21; O2SAT 91
[2021-11-08] MEDS: chlordiazePOXIDE 25 MG CAP 75 MG PO (00:24)
== END 2021-11-08 01:11 | disposition home or self-care (01) ==
PROVIDERS: Emergency Provider Student in an Organized Health Care Education/Training Program; PCP Nurse Practitioner Family
DX: F10.239 Alcohol dependence with withdrawal, unspecified (principal); E87.6 Hypokalemia
CPT/HCPCS: 36415; 80053; 96361; 96365; 96366; 96368; 96374; 99284; 80320; 85025; 99283; J2060; J3480

== ENCOUNTER 2022-01-03 08:35 | Emergency (ER) | payer MEDICAID, SELFPAY ==
[2022-01-03 08:39] VITALS: BP 148/99; PULSE 65; RESP 17; TEMP 36.3; O2SAT 97
--- NOTE | 2022-01-03 08:45 | RT.EKG_ITS ---
APPROVED REPORT Exam: Resting ECG Reason for Exam: lightheadedness Patient Location: E HR:55 bpm ECG Measurements Heart Rate 55 AXIS OR 177 P -30 QRSd 89 QRS 45 QT 419 T 43 QTc 401 Conclusion Sinus bradycardia...rate< 60 Consider left ventricular hypertrophy...(S V1+R V5/V6) >3.50mV sinus bradycardia 55, normal axis, no STEMI, no WPW, QTC 4 1, no Brugada, no HOCM, nondiagnostic EKG
--- NOTE | 2022-01-03 09:02 | ED.GENADUL_ITS ---
Discharge Plan Disposition Patient Disposition: HOME Condition: Stable Discharge Details Clinical Impression: Body aches, Rash, Hypomagnesemia, Chronic vertigo Primary Care Provider: Jerrica Gomes ED Provider: Alecia Tavera Home Meds and New Rx's Prescriptions: New magnesium oxide 400 mg magnesium tablet 400 mg PO DAILY Qty: 30 0RF Discharge Instructions Instructions: Hypomagnesemia (ED) Additional Instructions: Please return immediately to the emergency department if you develop any new or worsening symptoms, if your condition does not improve as expected, or if you become otherwise concerned. It is extremely important that you call soon as possible to make an appointment to be seen in follow-up for this visit by your primary care doctor. Stand Alone Forms: Work Release Referrals: Jerrica Gomes [Primary Care Provider] - Zeb Pizano MD [ [facility] STAFF PHYSICIAN] - Discharge Data Discharge Date/Time-TO BE ENTERED AT DEPARTURE: 01/03/22 12:33 Medical Decision Making Paul Layton is a 46-year-old man with a history of chronic vertigo, hepatic steatosis presenting to emergency department with rash to right arm. Patient reports that last night he noticed discoloration of his skin and what looked to him to be a bull's-eye formation on his right upper medial arm. Patient reports that this was in an area where he believes he would have noticed a tick, and he has not had any known tick bites. Patient reports that this morning he woke up and had vertigo, and also felt lightheaded. Patient reports that he has a long history of vertigo, with intermittent vertigo occurring over the past 2 years. Patient reports that vertigo this morning was no different than his usual. Patient reports that he has also had a long history of feeling lightheaded where he has to put his head between his knees, and states this happens to him approximately twice a week. Patient reports that both vertigo and lightheadedness occurred while he was lying in bed. Patient reports that this was not unusual for him, but notes that this morning he has also felt achiness in his bones and joints today, which is not typical for him. This led him to present to the emergency department. He denies any other pain, cough, vomiting, diarrhea, numbness, weakness, other rash, swelling. Patient reports that he did feel more short of breath with exertion than normal this morning, but has no current shortness of breath. Patient reports that he received 2 COVID vaccinations, has not had booster. He states that he smokes cigarettes and drinks approximately a sixpack of beer on the weekends but does not drink during the week. He denies recreational drug use. Patient states that he has been eating and drinking as usual. Pt is very well and non-toxic appearing on exam. Small area of what appears to be ecchmosis right upper arm, no bullae, vesicles, petechiae, or erythema. Non- focal neuro exam. Concern for dehydration, metabolic/electrolyte abnormality, COVID, flu, possible tickborne illness. Plan for EKG, chest x-ray, IV placement, IV fluid hydration, screening labs, UA. We will hold prophylactic Lyme treatment at this time given appearance of skin not consistent with erythema migrans or hemorrhagic tick-related lesion at this time. Exam/history at this time is not consistent with acute coronary syndrome, pulmonary embolism, sepsis, acute aortic pathology. Will monitor and reassess. Labs reviewed, mag low. Will replete. Pt reports feeling well and improved after IVF. Plan for outpt f/u with PCP, ENT. I had a discussion with Patient regarding return to emergency department precautions, home care, and importance of outpatient follow-up. Pt verbalizes understanding of the plan and is amenable. Patient discharged to home with clear plan for outpatient follow-up. All questions were answered. Disposition decision was made weighing the risks and benefits of hospitalization versus outpatient treatment, the risk for further decompensation, and the patient's wishes. Medical Records Medical records reviewed: Yes I reviewed the patient's medical records. Imaging Data Radiologic Study: Attestation: I personally reviewed and interpreted this imaging study as follows: Radiologist's impression: EXAM:? XR PORTABLE CHEST AP CLINICAL HISTORY:? SOB TECHNIQUE:? 2D digital imaging was performed of the chest. One image was obtained.? An AP view was obtained. COMPARISON:? CR,XR XR PORTABLE CHEST AP from 10/18/2019 FINDINGS: MEDIASTINUM: Normal.? HEART: Normal. PULMONARY VASCULATURE: Normal. LUNGS: Clear.? PLEURAL SPACE: No pleural effusion or pneumothorax. BONE:Within normal limits for the patient's age. OTHER FINDINGS:Normal.? IMPRESSION: No acute pulmonary findings. Lab Data Lab results reviewed: Yes I reviewed the patient's lab results. Labs: Laboratory Tests Range/Units 01/03/22 01/03/22 01/03/22 09:13 09:13 09:13 WBC (4.4-10.8) 10^3/uL 7.16 RBC (4.36-5.78) 10^6/uL 4.50 Hgb (13.5-17.5) g/dL 15.1 Hct (40.0-50.0) % 43.2 MCV (80-95) fL 96 H MCH (27.0-33.0) pg 33.6 H MCHC (32.0-36.0) % 35.0 RDW (11.8-14.1) % 12.4 Plt Count (130-400) 10^3/uL 227 MPV (8.0-11.0) fL 9.7 Immature Gran % 0.3 Neutrophils % 61.7 Lymphocytes % 25.3 Monocytes % 10.6 Eosinophils % 1.1 Basophils % 1.0 Nucleated RBC % (0.0-0.3) % 0.0 Absolute Neutrophils (1.2-6.7) 10^3/uL 4.42 Absolute Lymphocytes (1.2-3.4) 10^3/uL 1.81 Absolute Monocytes (0.1-0.8) 10^3/uL 0.76 Absolute Eosinophils (0.0-0.7) 10^3/uL 0.08 Absolute Basophils (0.0-0.2) 10^3/uL 0.07 Sodium (136-145) mmol/L 135 L Potassium (3.5-5.1) mmol/L 3.7 Chloride (98-107) mmol/L 100 Carbon Dioxide (21.0-32.0) mmol/L 24.6 Anion Gap (3-11) mmol/L 10.4 BUN (7-18) mg/dL 8 Creatinine (0.70-1.30) mg/dL 0.7 Estimated GFR/1.73 m2 (mL/min/1.73m2) >= 60.00 Glucose (74-106) mg/dL 117 H Calcium (8.5-10.1) mg/dL 8.8 Magnesium (1.8-2.4) mg/dL 1.7 L Total Bilirubin (0.2-1.0) mg/dL 0.4 AST (15-37) U/L 19 ALT (16-63) U/L 40 Alkaline Phosphatase (46-116) U/L 70 Total Protein (6.4-8.2) g/dL 7.7 Albumin (3.4-5.0) g/dL 3.6 Urine Color (Yellow) Urine Clarity (Clear) Urine pH (5-8) Ur Specific Reading (1.005-1.025) Urine Protein (Negative) mg/dL Urine Ketones (Negative) mg/dL Urine Blood (Negative) Urine Nitrite (Negative) Urine Bilirubin (Negative) Urine Urobilinogen (Up TO 0.2) EU/dL Ur Leukocyte Esterase (Negative) Urine Glucose (Negative) mg/dL A.phagocytophil DNA PCR (Negative) Negative B. divergens/MO-1 PCR (Negative) Negative Babesia duncani (PCR) (Negative) Negative Babesia microti DNA PCR (Negative) Negative Borrelia (PCR) (Negative) Negative Lyme Disease Antibody (Negative) Negative COVID-19 Source SARS-CoV-2 (PCR) (Negative) E.chaffeensis DNA (PCR) (Negative) Negative E.ewingii/canis DNA PCR (Negative) Negative E. muris-like DNA (PCR) (Negative) Negative Influenza Type A (PCR) (Negative) Influenza Type B (PCR) (Negative) RSV (PCR) (Negative) Range/Units 01/03/22 01/03/22 09:15 11:31 WBC (4.4-10.8) 10^3/uL RBC (4.36-5.78) 10^6/uL Hgb (13.5-17.5) g/dL Hct (40.0-50.0) % MCV (80-95) fL MCH (27.0-33.0) pg MCHC (32.0-36.0) % RDW (11.8-14.1) % Plt Count (130-400) 10^3/uL MPV (8.0-11.0) fL Immature Gran % Neutrophils % Lymphocytes % Monocytes % Eosinophils % Basophils % Nucleated RBC % (0.0-0.3) % Absolute Neutrophils (1.2-6.7) 10^3/uL Absolute Lymphocytes (1.2-3.4) 10^3/uL Absolute Monocytes (0.1-0.8) 10^3/uL Absolute Eosinophils (0.0-0.7) 10^3/uL Absolute Basophils (0.0-0.2) 10^3/uL Sodium (136-145) mmol/L Potassium (3.5-5.1) mmol/L Chloride (98-107) mmol/L Carbon Dioxide (21.0-32.0) mmol/L Anion Gap (3-11) mmol/L BUN (7-18) mg/dL Creatinine (0.70-1.30) mg/dL Estimated GFR/1.73 m2 (mL/min/1.73m2) Glucose (74-106) mg/dL Calcium (8.5-10.1) mg/dL Magnesium (1.8-2.4) mg/dL Total Bilirubin (0.2-1.0) mg/dL AST (15-37) U/L ALT (16-63) U/L Alkaline Phosphatase (46-116) U/L Total Protein (6.4-8.2) g/dL Albumin (3.4-5.0) g/dL Urine Color (Yellow) Yellow Urine Clarity (Clear) Clear Urine pH (5-8) 6.5 Ur Specific Reading (1.005-1.025) 1.015 Urine Protein (Negative) mg/dL Negative Urine Ketones (Negative) mg/dL Negative Urine Blood (Negative) Negative Urine Nitrite (Negative) Negative Urine Bilirubin (Negative) Negative Urine Urobilinogen (Up TO 0.2) EU/dL 0.2 Ur Leukocyte Esterase (Negative) Negative Urine Glucose (Negative) mg/dL Negative A.phagocytophil DNA PCR (Negative) B. divergens/MO-1 PCR (Negative) Babesia duncani (PCR) (Negative) Babesia microti DNA PCR (Negative) Borrelia (PCR) (Negative) Lyme Disease Antibody (Negative) COVID-19 Source Not Applicable SARS-CoV-2 (PCR) (Negative) Negative E.chaffeensis DNA (PCR) (Negative) E.ewingii/canis DNA PCR (Negative) E. muris-like DNA (PCR) (Negative) Influenza Type A (PCR) (Negative) Negative Influenza Type B (PCR) (Negative) Negative RSV (PCR) (Negative) Negative ECG Data Attestation: I personally reviewed and interpreted this ECG (s) as follows: Interpretation: EKG shows sinus bradycardia 55, normal axis, no STEMI, no WPW, QTC 4 1, no Brugada, no HOCM, nondiagnostic EKG HPI General Date/Time Provider Initiated Documentation: 01/03/22 08:40 . Limitations to Documentation: no limitations . Information obtained by: patient, RN notes reviewed and old records reviewed . HPI Narrative: Paul Layton is a 46-year-old man with a history of chronic vertigo, hepatic steatosis presenting to emergency department with rash to right arm. Patient reports that last night he noticed discoloration of his skin and what looked to him to be a bull's-eye formation on his right upper medial arm. Patient reports that this was in an area where he believes he would have noticed a tick, and he has not had any known tick bites. Patient reports that this morning he woke up and had vertigo, and also felt lightheaded. Patient reports that he has a long history of vertigo, with intermittent vertigo occurring over the past 2 years. Patient reports that vertigo this morning was no different than his usual. Patient reports that he has also had a long history of feeling lightheaded where he has to put his head between his knees, and states this happens to him approximately twice a week for at least a year. Patient reports that both vertigo and lightheadedness occurred while he was lying in bed. Patient reports that this was not unusual for him, but notes that this morning he has also felt achiness in his bones and joints today, which is not typical for him. This led him to present to the emergency department. He denies any other pain, cough, vomiting, diarrhea, numbness, weakness, other rash, swelling. Patient reports that he did feel more short of breath with exertion than normal this morning, but has no current shortness of breath. Patient reports that he received 2 COVID vaccinations, has not had booster. He states that he smokes cigarettes and drinks approximately a sixpack of beer on the weekends but does not drink during the week. He denies recreational drug use. Patient states that he has been eating and drinking as usual. Related Data Home Medications Medication Instructions Recorded Confirmed magnesium oxide 400 mg PO DAILY #30 tabs 01/03/22 Previous Rx's Medication Instructions Recorded magnesium oxide 400 mg PO DAILY #30 tabs 01/03/22 Allergies Allergy/AdvReac Type Severity Reaction Status Date / Time No Known Allergies Allergy Unverified 01/03/22 08:44 General Stated Complaint: RashLesion SARAH: 4 Review of Systems Narrative: Constitutional: denies fevers Eyes: denies eye pain ENT: denies ear pain, dental pain, sore throat Cardiovascular: denies chest pain, edema, reports lightheadedness Respiratory: denies cough, reports SOB as per HPI GI: denies abdominal pain, vomiting, diarrhea : denies flank pain MSK: denies back pain, neck pain, reports generalized arthralgias, myalgias Skin: reports rash as per HPI Neuro: denies headaches, numbness, weakness, reports vertigo PFSH All Active Problems (Updated 01/03/22 @ 12:23 by Alecia Tavera MD) Body aches (Acute) Rash (Acute) Hypomagnesemia (Acute) Avascular necrosis of bone of left hip (Acute) Chest pain (Acute) due to ETOH Hepatic steatosis (Acute) COVID-19 ruled out (Acute) Tobacco abuse (Acute) Impairment of balance (Acute) Chronic vertigo (Acute) Hypokalemia (Acute) Alcohol withdrawal (Acute) Electrolyte and fluid disorder (Acute) Medical History Alcoholism LAST DRINK WAS 2 WKS AGO Surgical History Cyst of right upper eyelid 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) Family History Maternal Grandfather Alcohol abuse Maternal Uncle Alcohol abuse Social History Smoking/Tobacco Use Status: Current every day Tobacco Type: cigarettes Smoking packs per day: 1 Smoking cigarettes per day: 20.0 Years smoked: 25 Smoking pack- years: 25.00 Smoking risk assessment performed?: Yes Alcohol Intake: current Alcohol Intake frequency: 3 or more drinks per day Alcohol type: beer and hard liquor Details: last drink was 2 weeks ago Drug use: Never Substance use type: does not use 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 Do you feel safe at home: Yes Do you feel safe in your relationship?: Yes Exam Narrative Exam Narrative: Constitutional: well and [id number], pleasant, conversing normally HENT: head atraumatic/normocephalic/normal inspection, mucous membranes moist Eyes: conjunctiva normal, sclera normal, pupils 3mm b/l Neck: no stridor, normal ROM, trachea midline Chest: normal inspection Resp: normal work of breathing, LCTAB Cardio: normal rate, normal rhythm, no murmur appreciated GI: abdomen soft, non-tender, non-distended Back: normal inspection, no rash Skin: warm, dry, normal color, no rash Neuro: alert, not altered, cryptologic linguist 2-12 intact, motor 5/5 throughout, normal tone Ext: no edema, 2x2 area of discoloration consistent with ecchymosis right medial upper arm Psych: normal mood, normal affect, normal behavior Course Vital Signs Vital signs: Vital Signs Temperature 36.3 C L 01/03/22 08:39 Pulse 65 01/03/22 08:39 Respiratory Rate 17 01/03/22 08:39 Blood Pressure 148/99 H 01/03/22 08:39 Pulse Oximetry 97 01/03/22 08:39 Temperature 36.3 C L 01/03/22 08:39 Temperature Source Temporal Artery Scan 01/03/22 08:39 Pulse 65 01/03/22 08:39 Respiratory Rate 17 01/03/22 08:39 Respiratory Effort Non-Labored 01/03/22 08:41 Blood Pressure 148/99 H 01/03/22 08:39 Blood Pressure Position Sitting 01/03/22 08:39 Pulse Oximetry 97 01/03/22 08:39 Oxygen Delivery Method Room Air 01/03/22 08:39 Oxygen Flow Rate 0 01/03/22 08:39 Pain Level 0 01/03/22 08:39 PAWSS Have you Been Recently Intoxicated or Drunk Within the Last 30 days?: No Have you Ever Experienced Previous Episodes of Alcohol Withdrawal?: No Have you ever Experienced Withdrawal Seizures?: No Have you ever Experienced Delirium Tremens(DT)s?: No Have you ever undergone Alcohol Rehabilitation Treatment (i.e, inpt ot outpatient treatment programs)?: Yes Have you ever Experienced Blackouts?: Yes Have you ever Combined Alcohol with other Downers within the last 90 days?: No Have you ever Combined Alcohol with any other Substance of Abuse during the last 90 days?: No Positive Blood Alcohol level on Presentation? [PCS.BAL]: No Evidence of Increased Autonomic Activity (i.e. HR>120, tremor, sweating, agitation, nausea)?: No Result: 2
--- NOTE | 2022-01-03 09:15 | DI.RAD_ITS ---
Exam(s) XR PORTABLE CHEST AP EXAM: XR PORTABLE CHEST AP CLINICAL HISTORY: SOB TECHNIQUE: 2D digital imaging was performed of the chest. One image was obtained. An AP view was ob tained. COMPARISON: CR,XR XR PORTABLE CHEST AP from 10/18/2019 FINDINGS: MEDIASTINUM: Normal. HEART: Normal. PULMONARY VASCULATURE: Normal. LUNGS: Clear. PLEURAL SPACE: No pleural effusion or pneumothorax. BONE:Within normal limits for the patient's age. OTHER FINDINGS:Normal. IMPRESSION: No acute pulmonary findings. DATA REPOSITORY: RADIATION DOSE DELIVERED:
[2022-01-03] MEDS: Normal Saline 1,000 ML 1000 ML IV (09:24)
[2022-01-03 09:27] LABS: Abs Immature Grans 0.02 10^3/uL (0.0-0.06); Absolute Basophil Count 0.07 10^3/uL (0.0-0.2); Absolute Eosinophil Count 0.08 10^3/uL (0.0-0.7); Absolute Lymphocyte Count 1.81 10^3/uL (1.2-3.4); Absolute Monocyte Count 0.76 10^3/uL (0.1-0.8); Absolute Neutrophil Count 4.42 10^3/uL (1.2-6.7); Eosinophils % 1.1; HCT 43.2 % (40.0-50.0); HGB 15.1 g/dL (13.5-17.5); Immature Grans % 0.3; Lymphocytes % 25.3; MCH 33.6 pg (27.0-33.0); MCV 96 fL (80-95); MPV 9.7 fL (8.0-11.0); Monocytes % 10.6; Neutrophils % 61.7; Platelet Count 227 10^3/uL (130-400); RDW 12.4 % (11.8-14.1); RDW-SD 43.8 fL; WBC 7.16 10^3/uL (4.4-10.8)
[2022-01-03 09:40] LABS: ALT 40 U/L (16-63); AST 19 U/L (15-37); Albumin 3.6 g/dL (3.4-5.0); Alkaline Phosphatase 70 U/L (46-116); Anion Gap 10.4 mmol/L (3-11); BUN 8 mg/dL (7-18); Bilirubin, Total 0.4 mg/dL (0.2-1.0); CO2 24.6 mmol/L (21.0-32.0); CREATININE 0.7 mg/dL (0.70-1.30); Calcium 8.8 mg/dL (8.5-10.1); Chloride 100 mmol/L (98-107); Glucose 117 mg/dL (74-106); Magnesium 1.7 mg/dL (1.8-2.4); Potassium 3.7 mmol/L (3.5-5.1); Sodium 135 mmol/L (136-145); Total Protein 7.7 g/dL (6.4-8.2)
[2022-01-03 10:06] LABS: COVID-19 PCR Negative (Negative); Influenza A PCR Negative (Negative); Influenza B PCR Negative (Negative); RSV PCR Negative (Negative)
[2022-01-03] MEDS: Magnesium Oxide 400 MG TAB PO (11:34)
[2022-01-03 11:45] LABS: Bilirubin Negative (Negative); Blood Negative (Negative); Clarity Clear (Clear); Glucose Negative (Negative); Ketones Negative (Negative); Leukocyte Esterase Negative (Negative); Nitrite Negative (Negative); Specific Gravity 1.015 (1.005-1.025); Urobilinogen 0.2 EU/dL (Up TO 0.2); pH 6.5 (5-8)
[2022-01-03 12:30] VITALS: BP 130/90; PULSE 58; RESP 16; TEMP 37; O2SAT 98
--- NOTE | 2022-01-03 16:00 | NUR.NOTE ---
Nursing Note: Referral faxed to [facility] for chronic vertigo, for the next avaiolable appt. Tita Tracy
[2022-01-04 10:23] LABS: Lyme Ab w Rflx to Lyme Confirm Negative (Negative)
[2022-01-05 22:28] LABS: Anaplasma phagocytophilum Negative (Negative); B. miyamotoi PCR Negative (Negative); Babesia divergens/MO-1 Negative (Negative); Babesia duncani Negative (Negative); Babesia microti Negative (Negative); Ehrlichia chaffeensis Negative (Negative); Ehrlichia ewingii/canis Negative (Negative); Ehrlichia muris eauclairensis Negative (Negative)
== END 2022-01-03 12:33 | disposition home or self-care (01) ==
PROVIDERS: Emergency Provider Student in an Organized Health Care Education/Training Program; PCP Nurse Practitioner Family
DX: R21 Rash and other nonspecific skin eruption (principal); R52 Pain, unspecified; R42 Dizziness and giddiness; E83.42 Hypomagnesemia
CPT/HCPCS: 36415; 80053; 87637; 87798; 93005; 96360; 99284; 71045; 81003; 83735; 85025; 86618; 93010

== ENCOUNTER 2022-01-15 01:48 | Emergency (ER) | payer MEDICAID, SELFPAY ==
[2022-01-15 01:58] VITALS: BP 110/73; PULSE 94; RESP 14; TEMP 36.6; O2SAT 96
--- NOTE | 2022-01-15 02:00 | DI.CT_ITS ---
Exam(s) CT HEAD WO EXAM: CT HEAD WO CLINICAL HISTORY: etoh, fall, hit posterior scalp. TECHNIQUE: Imaging Protocol: Axial computed tomography images with coronal and sagittal reformatted images were created and reviewed COMPARISON: CT CT HEAD WO from 03/05/2020 FINDINGS: Ventricles and Extra axial spaces: Normal in size and morphology for the patient's age. Hemorrhage: None. Cerebral parenchyma: Normal. Midline shift: None. Brainstem/Cerebellum: Normal. Calvarium: Normal. Visualized Paranasal sinuses/Mastoids: Clear. Soft Tissues: Mild soft tissue swelling of the scalp in the left posterior parietal region. IMPRESSION: 1. No acute intracranial process. 2. Mild left posterior parietal scalp soft tissue swelling. RADIATION DOSE DELIVERED: 737.54mGy.cm Total DLP DATA REPOSITORY: All CT scans at this facility are submitted to the National Radiology Data Registry (NRDR) Dose Index Registry (DIR) with the [employer] ([employer]). RADIATION OPTIMIZATION: All CT scans at this facility use at least one of these dose optimization te chniques: automated exposure control; mA and/or kV adjustment per patient size (includes targeted exa ms where dose is matched to clinical indication); or iterative reconstruction.
--- NOTE | 2022-01-15 02:05 | W.ED.GENAD ---
Discharge Plan Disposition Patient Disposition: HOME Condition: Good Discharge Details Chief Complaint: Laceration Clinical Impression: Laceration of scalp Primary Care Provider: Jerrica Gomes ED Provider: Alejandro Thomas Home Meds and New Rx's Prescriptions: No Action magnesium oxide 400 mg magnesium tablet 400 mg PO DAILY Qty: 30 0RF Discharge Instructions Instructions: Staple Care (ED) Additional Instructions: Please leave the dressing on for 24 hours, then you may remove and begin cleaning the wound at least twice a day with soap and water. Continue to apply antibiotic ointment. Do not directly soak the area. Watch for any signs of infection and return if any increasing redness, swelling, pain, drainage. Please return in the next 7 to 10 days to have the yue removed. If you notice any worsening of your symptoms, or any new symptoms such as vomiting, diarrhea, fever, chills, shortness of breath, chest pain, numbness, weakness, or fainting , please return immediately to the emergency department for reevaluation. Please follow up with your primary care provider as soon as possible for reassessment and reevaluation. As always, it was a pleasure participating in your medical care today. Referrals: Jerrica Gomes [Primary Care Provider] - Medical Decision Making This is a very pleasant 46-year-old male with a long past medical history of chronic alcoholism, who presents today for scalp laceration. Patient was drinking his normal amount of alcohol, which is rather excessive, and states that tonight he was walking with his dog when the dog pulled him quickly, he fell into a hole and hit the back of his head. He admits to a brief loss of consciousness for about a minute. He is able to get up and bring himself to the ER after that. He denies any numbness tingling or weakness. He denies any vision changes. He is not on any blood thinners. Exam demonstrates evidence of a 5 cm laceration on the posterior scalp. No other evidence of significant trauma. Scalp laceration was reapproximated with 5 yue. Patient tolerated this well the area was washed with copious amounts of normal saline and hydrogen peroxide. Due to the mechanism, and the patient's very mild intoxication we will get a CT scan of the head to rule out intracranial bleed. Will monitor closely and reassess. At this time he shows no evidence of focal neurologic 2:[address] scan result shows no evidence of acute intracranial process. Patient remains neurovascularly intact. Patient requesting discharge. He will go home with family/friends. Clyman were placed. Discussed red flags which to return. Tetanus was updated. I have extensively reviewed the treatment plan and discharge instructions with the patient. I have addressed all patient concerns at this time. The patient was made aware of what symptoms to monitor for that would warrant a return to the emergency department. Discussed the plan with the patient, they demonstrate verbal understanding and agreement with our assessment and plan at this time. The documentation in this chart was dictated using [employer] dictation software. Please excuse any dictation errors. FINDINGS: Brain: Cerebrum is unremarkable. Macedo-white matter differentiation is intact. No mass lesion is seen. No mass effect or midline shift. Thalamus is unremarkable. No evidence of hemorrhage. Cerebellum is unremarkable. No posterior fossa mass lesion or mass effect. No pathologic edema. No evidence of cerebellar hemorrhage. Brainstem is unremarkable. No evidence of pontine hemorrhage. No mass effect on the brainstem. Cerebral ventricles: No ventriculomegaly. Paranasal sinuses: Visualized sinuses are unremarkable. No fluid levels. Mastoid air cells: Visualized mastoid air cells are well aerated. Bones/joints: No evidence of fracture. Soft tissues: Left parietal scalp soft tissue swelling with skin clips. IMPRESSION: 1. No evidence of fracture. No evidence of acute intracranial bleed. 2. Left parietal scalp soft tissue swelling with skin clipThank you for allowing us to participate in the care of your patient. Dictated and Authenticated by: Yesica Knight MD 01/15/2022 2:36 AM Eastern Time ([place] & [place]) HPI General Date/Time Provider Initiated Documentation: 01/15/22 01:50. HPI Narrative: This is a very pleasant 46-year-old male with a long past medical history of chronic alcoholism, who presents today for scalp laceration. Patient was drinking his normal amount of alcohol, which is rather excessive, and states that tonight he was walking with his dog when the dog pulled him quickly, he fell into a hole and hit the back of his head. He admits to a brief loss of consciousness for about a minute. He is able to get up and bring himself to the ER after that. He denies any numbness tingling or weakness. He denies any vision changes. He is not on any blood thinners. Related Data Home Medications Medication Instructions Recorded Confirmed magnesium oxide 400 mg PO DAILY #30 tabs 01/03/22 Previous Rx's Medication Instructions Recorded magnesium oxide 400 mg PO DAILY #30 tabs 01/03/22 Allergies Allergy/AdvReac Type Severity Reaction Status Date / Time No Known Allergies Allergy Unverified 01/03/22 08:44 General Stated Complaint: Laceration SARAH: 3 Review of Systems All systems reviewed & are unremarkable except as noted in HPI and below PFSH All Active Problems (Updated 01/15/22 @ 02:41 by Alejandro Thomas DO) Body aches (Acute) Rash (Acute) Hypomagnesemia (Acute) Laceration of scalp (Acute) Avascular necrosis of bone of left hip (Acute) Chest pain (Acute) due to ETOH Hepatic steatosis (Acute) COVID-19 ruled out (Acute) Tobacco abuse (Acute) Impairment of balance (Acute) Chronic vertigo (Acute) Hypokalemia (Acute) Alcohol withdrawal (Acute) Electrolyte and fluid disorder (Acute) Medical History Alcoholism LAST DRINK WAS 2 WKS AGO Surgical History Cyst of right upper eyelid 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) Family History Maternal Grandfather Alcohol abuse Maternal Uncle Alcohol abuse Social History Smoking/Tobacco Use Status: Current every day Tobacco Type: cigarettes Smoking packs per day: 1 Smoking cigarettes per day: 20.0 Years smoked: 25 Smoking pack-years: 25.00 Smoking risk assessment performed?: Yes Alcohol Intake: current Alcohol Intake frequency: 3 or more drinks per day Alcohol type: beer and hard liquor Details: last drink was 2 weeks ago Drug use: Never Substance use type: does not use 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 3.ENT: Atraumatic external nose and ears. Moist MM. Neck: Symmetric, trachea midline, No thyromegaly. There is no evidence of raccoon eyes, posada sign, CSF rhinorrhea, mastoid tenderness, cranial crepitus, hemotympanum, exophthalmos, or hyphema. Patient demonstrates intact dentition with no signs of tooth avulsion or fracture, no signs of jaw deformity, no evidence of a LeFort's fracture, with an intact palate, nose and orbital region. There is no evidence of a nasal septal hematoma. No proptosis. Jaw closes symmetrically. Airway is clear. 4.CVS: +S1/S2, No murmurs or gallops. Peripheral pulses 2+ and equal in all extremities. Brisk capillary refill in all extremities. 5.RESP: Unlabored respiratory effort. Clear to auscultation bilaterally. No wheezes rales or rhonchi 6.GI: Soft, Nontender/Nondistended, No hepatosplenomegaly. No guarding or rebound. 7.MSK: Normocephalic/Atraumatic, Extremities w/o deformity or ttp No cyanosis or clubbing, Normal movement of all extremities, no midline cervical thoracic or lumbar spine tenderness. 8.Skin: Warm, Dry. Patient's posterior scalp demonstrates evidence of mild hematoma, as well as a 5 cm superficial linear laceration. No evidence of ostial involvement. Minimal active oozing. 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 Sensation grossly intact, no focal neurologic deficits. 10.Psych: (AAO) x3. Appropriate mood and affect, Course Vital Signs Vital signs: Vital Signs Temperature 36.6 C 01/15/22 01:58 Pulse 94 H 01/15/22 01:58 Respiratory Rate 14 01/15/22 01:58 Blood Pressure 110/73 01/15/22 01:58 Pulse Oximetry 96 01/15/22 01:58 Temperature 36.6 C 01/15/22 01:58 Pulse 94 H 01/15/22 01:58 Respiratory Rate 14 01/15/22 01:58 Respiratory Effort Non-Labored 01/15/22 02:01 Blood Pressure 110/73 01/15/22 01:58 Pulse Oximetry 96 01/15/22 01:58 Oxygen Delivery Method Room Air 01/15/22 01:58 Oxygen Flow Rate 0 01/15/22 01:58 Pain Level 5 01/15/22 01:58 Procedures Laceration Laceration 1: Site: scalp Size (cm): 5 Description: linear Depth: simple, single layer Pre-repair: wound explored, irrigated extensively and deep structures intact Skin layer closed with: other (Yue) Number of sutures: 5 Technique: simple, interrupted PAWSS Have you Been Recently Intoxicated or Drunk Within the Last 30 days?: Unable to Obtain Have you Ever Experienced Previous Episodes of Alcohol Withdrawal?: Unable to Obtain Have you ever Experienced Withdrawal Seizures?: Unable to Obtain Have you ever Experienced Delirium Tremens(DT)s?: Unable to Obtain Have you ever undergone Alcohol Rehabilitation Treatment (i.e, inpt ot outpatient treatment programs)?: Unable to Obtain Have you ever Experienced Blackouts?: Unable to Obtain Have you ever Combined Alcohol with other Downers within the last 90 days?: Unable to Obtain Have you ever Combined Alcohol with any other Substance of Abuse during the last 90 days?: Unable to Obtain Positive Blood Alcohol level on Presentation? [PCS.BAL]: Unable to Obtain Evidence of Increased Autonomic Activity (i.e. HR>120, tremor, sweating, agitation, nausea)?: Unable to Obtain
[2022-01-15] MEDS: Tetanus & Diphtheria Tox,ADULT 0.5 ML VIAL IM (02:17)
--- NOTE | 2022-01-15 02:36 | DI.VRAD_ITS ---
PROCEDURE INFORMATION: Exam: CT Head Without Contrast Exam date and time: 01/15/2022 2:20 AM Age: 46 years old Clinical indication: Injury or trauma; Laceration; Consciousness not specified; Without residual foreign body; Injury date: 01/15/22; Injury details: Eho, fall, hit posterior scalp TECHNIQUE: Imaging protocol: Computed tomography of the head without contrast. Radiation optimization: All CT scans at this facility use at least one of these dose optimization techniques: automated exposure control; mA and/or kV adjustment per patient size (includes targeted exams where dose is matched to clinical indication); or iterative reconstruction. COMPARISON: CT HEAD WO 03/05/2020 6:11 AM FINDINGS: Brain: Cerebrum is unremarkable. Macedo-white matter differentiation is intact. No mass lesion is seen. No mass effect or midline shift. Thalamus is unremarkable. No evidence of hemorrhage. Cerebellum is unremarkable. No posterior fossa mass lesion or mass effect. No pathologic edema. No evidence of cerebellar hemorrhage. Brainstem is unremarkable. No evidence of pontine hemorrhage. No mass effect on the brainstem. Cerebral ventricles: No ventriculomegaly. Paranasal sinuses: Visualized sinuses are unremarkable. No fluid levels. Mastoid air cells: Visualized mastoid air cells are well aerated. Bones/joints: No evidence of fracture. Soft tissues: Left parietal scalp soft tissue swelling with skin clips. IMPRESSION: 1. No evidence of fracture. No evidence of acute intracranial bleed. 2. Left parietal scalp soft tissue swelling with skin clips. Dictated and Authenticated by: Yesica Knight MD. Ordering:IFEANYI Allen MD
--- NOTE | 2022-01-24 07:06 | NUR.NOTE ---
Nursing Note: Patient called asking when his ry can come out. I told him 7 to 10 days per his discharge instructions.
== END 2022-01-15 02:49 | disposition home or self-care (01) ==
PROVIDERS: Emergency Provider Student in an Organized Health Care Education/Training Program; PCP Nurse Practitioner Family
DX: S01.01XA Laceration without foreign body of scalp, initial encounter (principal); W18.39XA Other fall on same level, initial encounter
CPT/HCPCS: 12002; 99284; 70450; 99283

== ENCOUNTER 2022-01-24 10:34 | Emergency (ER) | payer MEDICAID, SELFPAY ==
[2022-01-24 10:37] VITALS: BP 131/88; PULSE 70; RESP 14; TEMP 36.9; O2SAT 98
--- NOTE | 2022-01-24 10:43 | ED.GENADUL_ITS ---
Discharge Plan Disposition Patient Disposition: HOME Condition: Stable Discharge Details Clinical Impression: Encounter for removal of ry Primary Care Provider: Jerrica Gomes ED Provider: Manolo Jeffers Home Meds and New Rx's Prescriptions: Continued magnesium oxide 400 mg magnesium tablet 400 mg PO DAILY Qty: 30 0RF Label Comments: not taking Discharge Instructions Additional Instructions: Your wound appears well healed so ry were taken out if you have severe pain at the site, fevers or yellow/white discharge return to the emergency department Stand Alone Forms: Work Release Medical Decision Making 46 yo male pt here for removal of ry that were placed 9 days ago to his scalp, has no pain, fevers, drainage from the site and states has no symptoms and feels well. He arrives stable and has a well healed wound on the superior scalp with [address] There is no signs of infection on exam and nursing removed all ry without complications. Differential Diagnosis Differential Diagnosis: staple removal, laceration HPI General Mode of arrival: ambulatory . Date/Time Provider Initiated Documentation: 01/24/22 10:43 . Limitations to Documentation: no limitations . Information obtained by: patient . History of Present Illness 46 year old M presents to the emergency department with the chief complaint of staple removal, Patient started experiencing this day(s) (9) and it has been constant. No relieving factors improve symptom(s), No exacerbating factors reported . Patient notes no other symptoms.. Related Data Home Medications Medication Instructions Recorded Confirmed magnesium oxide 400 mg PO DAILY #30 tabs 01/03/22 01/24/22 Previous Rx's Medication Instructions Recorded magnesium oxide 400 mg PO DAILY #30 tabs 01/03/22 Allergies Allergy/AdvReac Type Severity Reaction Status Date / Time No Known Allergies Allergy Unverified 01/24/22 10:41 General Stated Complaint: SutureRem SARAH: 5 Review of Systems All systems reviewed & are unremarkable except as noted in HPI and below Constitutional Constitutional: Denies chills, Denies fever(s) and Denies weakness Eyes Eyes: Denies loss of vision Cardiovascular Cardiovascular: Denies chest pain and Denies dyspnea Respiratory Respiratory: Denies cough and Denies dyspnea Gastrointestinal Gastrointestinal: Denies abdominal pain, Denies nausea and Denies vomiting Integumentary/Breasts Skin/Breast: Denies rash Neurologic Neurologic: Denies loss of vision and Denies weakness PFSH All Active Problems (Updated 01/24/22 @ 10:44 by Manolo Jeffers MD) Body aches (Acute) Rash (Acute) Hypomagnesemia (Acute) Laceration of scalp (Acute) Encounter for removal of ry (Acute) Avascular necrosis of bone of left hip (Acute) Chest pain (Acute) due to ETOH Hepatic steatosis (Acute) COVID-19 ruled out (Acute) Tobacco abuse (Acute) Impairment of balance (Acute) Chronic vertigo (Acute) Hypokalemia (Acute) Alcohol withdrawal (Acute) Electrolyte and fluid disorder (Acute) Medical History Alcoholism LAST DRINK WAS 2 WKS AGO Surgical History Cyst of right upper eyelid 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) Family History Maternal Grandfather Alcohol abuse Maternal Uncle Alcohol abuse Social History Smoking/Tobacco Use Status: Current every day Tobacco Type: cigarettes Smoking packs per day: 1 Smoking cigarettes per day: 20.0 Years smoked: 25 Smoking pack- years: 25.00 Smoking risk assessment performed?: Yes Alcohol Intake: current Alcohol Intake frequency: 3 or more drinks per day Alcohol type: beer and hard liquor Details: last drink was 2 weeks ago Drug use: Never Substance use type: does not use 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 Do you feel safe at home: Yes Do you feel safe in your relationship?: Yes Course Vital Signs Vital signs: Vital Signs Temperature 36.9 C 01/24/22 10:37 Pulse 70 01/24/22 10:37 Respiratory Rate 14 01/24/22 10:37 Blood Pressure 131/88 01/24/22 10:37 Pulse Oximetry 98 01/24/22 10:37 Temperature 36.9 C 01/24/22 10:37 Temperature Source Skin 01/24/22 10:37 Pulse 70 01/24/22 10:37 Respiratory Rate 14 01/24/22 10:37 Blood Pressure 131/88 01/24/22 10:37 Blood Pressure Position Sitting 01/24/22 10:37 Pulse Oximetry 98 01/24/22 10:37 Oxygen Delivery Method Room Air 01/24/22 10:37 Oxygen Flow Rate 0 01/24/22 10:37 Pain Level 0 01/24/22 10:37
== END 2022-01-24 10:50 | disposition home or self-care (01) ==
LOC: ER 13:27
PROVIDERS: Emergency Provider Emergency Medicine; PCP Nurse Practitioner Family
DX: S01.01XD Laceration without foreign body of scalp, subsequent encounter (principal); W18.39XD Other fall on same level, subsequent encounter; Z48.02 Encounter for removal of sutures

== ENCOUNTER 2022-04-18 10:17 | Emergency (ER) | payer MEDICAID, SELFPAY ==
[2022-04-18 10:35] VITALS: BP 135/99; PULSE 75; RESP 18; TEMP 37.5; O2SAT 100
--- NOTE | 2022-04-18 11:00 | DI.RAD_ITS ---
Exam(s) XR RIBS RT W PA LAT CHEST EXAM: XR RIBS RT W PA LAT CHEST CLINICAL HISTORY: trauma, right rib pain TECHNIQUE: 2D digital imaging was performed.Six images were obtained. COMPARISON: CT CT CHEST PE ABD PELVIS W from 07/05/2020 CR,XR XR CHEST 2V PA LATERAL from 10/29/2021 CR XR PORTABLE CHEST AP from 01/03/2022 FINDINGS: MEDIASTINUM: Normal. HEART: Normal. PULMONARY VASCULATURE: Normal. LUNGS: Clear. PLEURAL SPACE: No pleural effusion or pneumothorax. BONE:Normal. RIGHT RIBS: Normal. There is deformity of the anterior aspect of the right 7th rib which appears pres ent on the CT scan from 07/05/2020. OTHER FINDINGS:Normal. IMPRESSION: 1. No acute pulmonary findings. 2. Unremarkable right ribs. DATA REPOSITORY: RADIATION DOSE DELIVERED:
--- NOTE | 2022-04-18 13:15 | ED.GENADUL_ITS ---
Discharge Plan Disposition Patient Disposition: HOME Condition: Stable Discharge Details Clinical Impression: Contusion of ribs Primary Care Provider: Jerrica Gomes ED Provider: Alecia Tavera Home Meds and New Rx's Prescriptions: No Action No Known Home Meds Discharge Instructions Instructions: Rib Contusion (ED) Additional Instructions: Please return immediately to the emergency department if you develop any new or worsening symptoms, if your condition does not improve as expected, or if you become otherwise concerned. It is extremely important that you call soon as possible to make an appointment to be seen in follow-up for this visit by your primary care doctor. Stand Alone Forms: Work Release Discharge Data Discharge Date/Time-TO BE ENTERED AT DEPARTURE: 04/18/22 13:37 Medical Decision Making Concern for rib fracture vs contusion, PTX, other. Exam/hx at this time is not c /w PNA, pulmonary embolism, acute coronary syndrome, sepsis, acute aortic pathology. Plan for rib x-rays. Xray negative for acute process. 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 I had a discussion with Patient regarding return to emergency department precautions, home care, and importance of outpatient follow-up. Pt verbalizes understanding of the plan and is amenable. Patient discharged to home with clear plan for outpatient follow-up. All questions were answered. Disposition decision was made weighing the risks and benefits of hospitalization versus outpatient treatment, the risk for further decompensation, and the patient's wishes. Medical Records Medical records reviewed: Yes I reviewed the patient's medical records. Imaging Data Radiologic Study: Radiologist's impression: EXAM:? XR RIBS RT W PA ? LAT CHEST CLINICAL HISTORY:? trauma, right rib pain TECHNIQUE:? 2D digital imaging was performed.Six images were obtained. COMPARISON:? CT CT CHEST PE ABD ? PELVIS W from 07/05/2020 CR,XR XR CHEST 2V PA ? LATERAL from 10/29/2021 CR XR PORTABLE CHEST AP from 01/03/2022 FINDINGS: MEDIASTINUM: Normal.? HEART: Normal. PULMONARY VASCULATURE: Normal. LUNGS: Clear. ? PLEURAL SPACE: No pleural effusion or pneumothorax. BONE:Normal. RIGHT RIBS: Normal. There is deformity of the anterior aspect of the right 7th rib which appears present on the CT scan from 07/05/2020. OTHER FINDINGS:Normal.? IMPRESSION: 1. No acute pulmonary findings. 2. Unremarkable right ribs. HPI General Mode of arrival: ambulatory . Date/Time Provider Initiated Documentation: 04/18/22 10:29 . Limitations to Documentation: no limitations . Information obtained by: patient, RN notes reviewed and old records reviewed . HPI Narrative: Paul Layton is a 47-year-old man without reported history of medical problems presenting to emergency department with rib pain. Patient reports that 2 days ago on 04/16 he was working outside when he lost his balance and fell backwards into a stump, hitting his right posterior lower ribs. Patient reports that he has had pain since that time. Patient reports that he has had broken ribs in the past, and this pain feels similar. Patient reports that he did not hit his head, had no loss of consciousness, had no other injury at time of initial event. He denies any other pain, fever, cough, shortness of breath, vomiting, diarrhea, numbness, weakness, hematuria. Related Data Home Medications Medication Instructions Recorded Confirmed Unknown [No Known Home Meds] 04/18/22 04/18/22 Allergies Allergy/AdvReac Type Severity Reaction Status Date / Time No Known Allergies Allergy Unverified 04/18/22 10:38 General Stated Complaint: Chest/Rib SARAH: 4 Review of Systems Narrative: Constitutional: denies fevers Eyes: denies eye pain ENT: denies ear pain, dental pain, sore throat Cardiovascular: denies chest pain, edema Respiratory: denies SOB, cough GI: denies abdominal pain, vomiting, diarrhea : denies flank pain MSK: denies back pain, neck pain, reports right posterior lower rib pain Skin: denies rash Neuro: denies headaches, numbness, weakness PFSH All Active Problems Contusion of ribs (Acute) Avascular necrosis of bone of left hip (Acute) Chest pain (Acute) due to ETOH Hepatic steatosis (Acute) COVID-19 ruled out (Acute) Tobacco abuse (Acute) Impairment of balance (Acute) Chronic vertigo (Acute) Hypokalemia (Acute) Alcohol withdrawal (Acute) Electrolyte and fluid disorder (Acute) Medical History Alcoholism LAST DRINK WAS 2 WKS AGO Surgical History Cyst of right upper eyelid 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) Family History Maternal Grandfather Alcohol abuse Maternal Uncle Alcohol abuse Social History Smoking/Tobacco Use Status: Current every day Tobacco Type: cigarettes Smoking packs per day: 1 Smoking cigarettes per day: 20.0 Years smoked: 25 Smoking pack- years: 25.00 Smoking risk assessment performed?: Yes Alcohol Intake: current Alcohol Intake frequency: 3 or more drinks per day Alcohol type: beer and hard liquor Details: last drink was 2 weeks ago Drug use: Never Substance use type: does not use 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 Do you feel safe at home: Yes Do you feel safe in your relationship?: Yes Exam Narrative Exam Narrative: Constitutional: well and [id number], pleasant, conversing normally HENT: head atraumatic/normocephalic/normal inspection, mucous membranes moist Eyes: conjunctiva normal, sclera normal, pupils 3mm b/l Neck: no stridor, normal ROM, trachea midline Chest: normal inspection Resp: normal work of breathing, speaking in full sentences Cardio: normal rate, normal rhythm GI: abdomen soft, non-tender, non-distended Back: normal inspection, no rash, right posterior lower ribs with focal TTP that reproduces pain, no crepitus or deformity, no overlying skin changes, no other back TTP Skin: warm, dry, normal color, no rash Neuro: alert, not altered, grossly non-focal, normal tone Ext: no edema, moving all extremities equally Psych: normal mood, normal affect, normal behavior Course Vital Signs Vital signs: Vital Signs Temperature 37.5 C 04/18/22 10:35 Pulse 75 04/18/22 10:35 Respiratory Rate 18 04/18/22 10:35 Blood Pressure 135/99 H 04/18/22 10:35 Pulse Oximetry 100 04/18/22 10:35 Temperature 37.5 C 04/18/22 10:35 Temperature Source Temporal Artery Scan 04/18/22 10:35 Pulse 75 04/18/22 10:35 Respiratory Rate 18 04/18/22 10:35 Respiratory Effort 04/18/22 10:39 Respiratory Depth Normal 04/18/22 10:39 Respiratory Pattern Normal 04/18/22 10:39 Blood Pressure 135/99 H 04/18/22 10:35 Blood Pressure Position Sitting 04/18/22 10:35 Pulse Oximetry 100 04/18/22 10:35 Oxygen Delivery Method Room Air 04/18/22 10:35 Oxygen Flow Rate 0 04/18/22 10:35 Pain Level 8 04/18/22 10:39
== END 2022-04-18 13:37 | disposition home or self-care (01) ==
PROVIDERS: Emergency Provider Student in an Organized Health Care Education/Training Program; PCP Nurse Practitioner Family
DX: S20.211A Contusion of right front wall of thorax, initial encounter (principal); F17.210 Nicotine dependence, cigarettes, uncomplicated; W18.30XA Fall on same level, unspecified, initial encounter; W22.8XXA Striking against or struck by other objects, initial encounter
CPT/HCPCS: 99283; 71046; 71100; 99282

== ENCOUNTER 2022-08-04 10:29 | Outpatient (CLI) | payer MEDICAID, SELFPAY ==
--- NOTE | 2022-08-04 09:45 | DI.RAD_ITS ---
Exam(s) XR HIP RT AP LAT ONLY EXAM: XR HIP RT AP LAT ONLY CLINICAL HISTORY: f/u R [facility]. TECHNIQUE: 2D digital imaging was performed. Two images were obtained. AP and lateral views were ob tained. COMPARISON: CR XR HIP RT COMPLETE AP PELVIS from 08/09/2021 FINDINGS: BONES: There are stable post operative changes present. No fracture or dislocation. JOINTS: The orthopedic hardware is in good position. No evidence of hardware loosening. SOFT TISSUE: Normal. IMPRESSION: Stable postoperative changes. DATA REPOSITORY: RADIATION DOSE DELIVERED:
== END 2022-08-04 10:30 | disposition home or self-care (01) ==
LOC: DIORS 10:29
PROVIDERS: PCP Nurse Practitioner Family; Visit Provider Student in an Organized Health Care Education/Training Program
DX: Z96.641 Presence of right artificial hip joint (principal)
CPT/HCPCS: 73502

== ENCOUNTER 2022-11-10 23:08 | Emergency (ER) | payer MEDICAID, SELFPAY ==
[2022-11-10 22:52] VITALS: BP 149/91; PULSE 99; RESP 18; TEMP 37.1; O2SAT 95
--- NOTE | 2022-11-10 23:02 | ED.GENADUL_ITS ---
Discharge Plan Disposition Patient Disposition: Home Condition: Stable Discharge Details Clinical Impression: Alcohol withdrawal Primary Care Provider: Jerrica Gomes ED Provider: Manolo Jeffers Home Meds and New Rx's Prescriptions: New chlordiazepoxide HCl 25 mg capsule See Rx Instructions .ROUTE .COMPLEX PRNQty: 25 0RF Rx Instructions: Day 1: 50mg q6 hours, Day 2: 25mg q6h Day 3: 25mg q12h Day 4: 25mg at night Discharge Instructions Instructions: Alcohol Withdrawal (ED) Additional Instructions: take the librium as prescribed, do not drink alcohol with the librium if you feel more ill, have difficulty breathing or persistent vomiting return to the emergency department Medical Decision Making 47 yo male with hx of alcohol abuse who states he drinks normally a fifth of hard liquor a day, who last had a beer at 10am and decided to quit cold turkey started to feel symptoms of alcohol withdrawal including feeling tremulous and n/v this evening so called ems. HE arrives hemodyanmically stable, caox4 speaking clearly. HE has mild tremors of his extremities, no significant tachyca rdia, is feeling anxious. He denies other substance use, no other signs of trauma, no si/hi. Suspect alcohol withdrawal, will treat with ativan and check cbc, cmp, lipase. No abdominal tenderness so will defer imaging at this time pt feels much better after one dose of ativan and is tolerating po, will trial oral librium, magnesium level low as well so will replete this. Anion gap is 16 which I suspect is from alcoholic ketosis, will recheck bmp after iv fluids gap decreased significantly and mag now 2.0, patient sleeping now and awakens easily to voice, no tachycardia no tremors, no hypertension. Do not feel he requires at this time in patient hospital detox. HE has no ride at the current moment so when rct available will plan for d/c and f/u with outpatient resources. Discussed oral librium with him and he would like to have this for at home and understands importance to not drink alcohol with this. Differential Diagnosis Differential Diagnosis: alcohol withdrawal, electrolyte abnormality Medical Records Medical records reviewed: Yes I reviewed the patient's medical records. Lab Data Lab results reviewed: Yes I reviewed the patient's lab results. HPI General Mode of arrival: EMS . Date/Time Provider Initiated Documentation: 11/10/22 23:52 . Limitations to Documentation: no limitations . Information obtained by: patient . History of Present Illness 47 year old M presents to the emergency department with the chief complaint of withdrawing from alcohol, Patient started experiencing this hour(s) (5) and it has been constant. No relieving factors improve symptom(s), No exacerbating factors reported . Patient notes nausea/vomiting; denies fever/chills. Patient did receive the following treatments prior to arrival, none Related Data Home Medications Medication Instructions Recorded Confirmed chlordiazepoxide HCl 25 mg capsule See Rx Instructions .Route 11/11/22 .COMPLEX PRN #25 caps Previous Rx's Medication Instructions Recorded chlordiazepoxide HCl 25 mg capsule See Rx Instructions .Route 11/11/22 .COMPLEX PRN #25 caps Allergies Allergy/AdvReac Type Severity Reaction Status Date / Time No Known Allergies Allergy Unverified 11/11/22 03:17 General Stated Complaint: ETOHWithdr SARAH: 3 Review of Systems All systems reviewed & are unremarkable except as noted in HPI and below Constitutional Constitutional: Denies chills, Denies fever(s) and Denies weakness Cardiovascular Cardiovascular: Denies chest pain and Denies dyspnea Respiratory Respiratory: Denies cough and Denies dyspnea Gastrointestinal Gastrointestinal: Denies abdominal pain, Denies nausea and Denies vomiting Integumentary/Breasts Skin/Breast: Denies rash Neurologic Neurologic: Denies weakness Psychiatric Psychiatric: Denies depression PFSH All Active Problems (Updated 11/11/22 @ 02:04 by Manolo Jeffers MD) Trochanteric bursitis, right hip (Acute) Avascular necrosis of bone of left hip (Acute) Chest pain (Acute) due to ETOH Hepatic steatosis (Acute) COVID-19 ruled out (Acute) Tobacco abuse (Acute) Impairment of balance (Acute) Chronic vertigo (Acute) Hypokalemia (Acute) Alcohol withdrawal (Acute) Electrolyte and fluid disorder (Acute) Medical History Alcoholism LAST DRINK WAS 2 WKS AGO Surgical History Cyst of right upper eyelid 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) Family History Maternal Grandfather Alcohol abuse Maternal Uncle Alcohol abuse Social History Smoking/Tobacco Use Status: Current every day Tobacco Type: cigarettes Smoking packs per day: 1 Smoking cigarettes per day: 20.0 Years smoked: 25 Smoking pack- years: 25.00 Smoking risk assessment performed?: Yes Alcohol Intake: current Alcohol Intake frequency: 3 or more drinks per day Alcohol type: beer and hard liquor Details: last drink was 2 weeks ago Drug use: Never Substance use type: does not use 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 Do you feel safe at home: Yes Do you feel safe in your relationship?: Yes Exam Const General: no acute distress Orientation: alert HENMT Head: normal to inspection Ears: external ears normal General nose exam: external nose normal Mouth: moist mucous membranes Eyes General: appearance normal, both eyes and all related structures Neck Neck: normal visual inspection Resp Effort & Inspection: normal respiratory effort and able to speak in complete sentences Cardio Rate: regular rate GI Palpation: soft and nontender Skin General skin exam: no rashes or lesions noted Neuro General: patient alert and patient oriented x3 Extrem General: normal to inspection Psych Mental Status: mental status grossly normal Course Vital Signs Vital signs: Vital Signs Temperature 37.1 C 11/10/22 22:52 Pulse 99 H 11/10/22 22:52 Respiratory Rate 18 11/10/22 22:52 Blood Pressure 149/91 H 11/10/22 22:52 Pulse Oximetry 95 11/10/22 22:52 Temperature 37.1 C 11/10/22 22:52 Temperature Source Oral 11/10/22 22:52 Pulse 99 H 11/10/22 22:52 Respiratory Rate 18 11/10/22 22:52 Blood Pressure 149/91 H 11/10/22 22:52 Blood Pressure Position Sitting 11/10/22 22:52 Pulse Oximetry 95 11/10/22 22:52 Oxygen Delivery Method Room Air 11/10/22 22:52 Oxygen Flow Rate 0 11/10/22 22:52 Pain Level 0 11/10/22 22:52
[2022-11-10] MEDS: LORazepam 2 MG/ML VIAL IVP (23:24)
[2022-11-10] MEDS: Normal Saline 1,000 ML 1000 ML IV (23:25)
[2022-11-10 23:26] LABS: Abs Immature Grans 0.02 10^3/uL (0.0-0.06); Absolute Basophil Count 0.04 10^3/uL (0.0-0.2); Absolute Eosinophil Count 0.04 10^3/uL (0.0-0.7); Absolute Monocyte Count 0.41 10^3/uL (0.1-0.8); Absolute Neutrophil Count 3.09 10^3/uL (1.2-6.7); Basophils % 0.8; Eosinophils % 0.8; HCT 38.7 % (40.0-50.0); HGB 13.9 g/dL (13.5-17.5); Immature Grans % 0.4; Lymphocytes % 30.8; MCH 34.7 pg (27.0-33.0); MCHC 35.9 % (32.0-36.0); MCV 97 fL (80-95); MPV 9.6 fL (8.0-11.0); Monocytes % 7.9; Neutrophils % 59.3; RBC 4.01 10^6/uL (4.36-5.78); RDW 12.2 % (11.8-14.1); RDW-SD 43.6 fL
[2022-11-10 23:31] LABS: Platelet Count 98 10^3/uL (130-400)
[2022-11-10 23:38] LABS: PTT Activated 26.8 sec (21.5-31.9); Prothrombin Time 10.2 sec (9.3-11.0)
[2022-11-10 23:39] LABS: ALT 173 U/L (16-63); AST 243 U/L (15-37); Albumin 4.2 g/dL (3.4-5.0); Alkaline Phosphatase 85 U/L (46-116); Anion Gap 16.9 mmol/L (3-11); BUN 4 mg/dL (7-18); Bilirubin, Total 0.9 mg/dL (0.2-1.0); CO2 23.1 mmol/L (21.0-32.0); CREATININE 0.7 mg/dL (0.70-1.30); Calcium 9.8 mg/dL (8.5-10.1); Chloride 100 mmol/L (98-107); ETHANOL BLOOD 63.2 mg/dL (<10); Estimated GFR 115.08 (mL/min/1.73m2); Glucose 113 mg/dL (74-106); Lipase 80 U/L (16-77); Magnesium 1.2 mg/dL (1.8-2.4); Sodium 140 mmol/L (136-145); Total Protein 8.2 g/dL (6.4-8.2)
[2022-11-10] MEDS: chlordiazePOXIDE 25 MG CAP 50 MG PO (23:58)
[2022-11-11] MEDS: MAGNESIUM SULFATE 2 GM/50 ML BAG IVPB (00:04)
[2022-11-11 01:35] LABS: Anion Gap 12.8 mmol/L (3-11); BUN 3 mg/dL (7-18); CO2 24.2 mmol/L (21.0-32.0); CREATININE 0.6 mg/dL (0.70-1.30); Calcium 8.9 mg/dL (8.5-10.1); Chloride 102 mmol/L (98-107); Estimated GFR 120.57 (mL/min/1.73m2); Glucose 119 mg/dL (74-106); Potassium 3.3 mmol/L (3.5-5.1); Sodium 139 mmol/L (136-145)
[2022-11-11] MEDS: LORazepam 2 MG/ML VIAL IVP (02:38)
[2022-11-11 05:34] VITALS: BP 122/88; PULSE 101; RESP 20; O2SAT 95
== END 2022-11-11 11:49 | disposition home or self-care (01) ==
PROVIDERS: Emergency Provider Emergency Medicine; PCP Nurse Practitioner Family
DX: F10.239 Alcohol dependence with withdrawal, unspecified (principal)
CPT/HCPCS: 80048; 80053; 83690; 96361; 96365; 96366; 96375; 96376; 99284; 80320; 83735; 85025; 85610; 85730; J2060

== ENCOUNTER 2023-01-17 06:34 | Emergency (ER) | payer MEDICAID, SELFPAY ==
[2023-01-17 06:39] VITALS: BP 152/93; PULSE 89; RESP 17; TEMP 36.4; O2SAT 99
--- NOTE | 2023-01-17 06:45 | RT.EKG_ITS ---
APPROVED REPORT Exam: Resting ECG Reason for Exam: syncope Patient Location: E HR:79 bpm ECG Measurements Heart Rate 79 AXIS [place] 176 P 45 QRSd 89 QRS 69 QT 390 T 74 QTc 447 Conclusion Sinus rhythm...normal P axis, V-rate 60- 99 Consider left ventricular hypertrophy...(S V1+R V5/V6) >3.50mV Physician: no stemi
[2023-01-17] MEDS: Meclizine 25 MG TAB PO (07:08)
[2023-01-17] MEDS: Normal Saline 1,000 ML 1000 ML IV (07:08)
--- NOTE | 2023-01-17 07:08 | ED.GENADUL_ITS ---
Discharge Plan Discharge Details Chief Complaint: Dizzy/Sync Primary Care Provider: Jerrica Gomes ED Provider: Alejandro Thomas Home Meds and New Rx's Prescriptions: No Action chlordiazepoxide HCl 25 mg capsule See Rx Instructions .ROUTE .COMPLEX PRNQty: 25 0RF Rx Instructions: Day 1: 50mg q6 hours, Day 2: 25mg q6h Day 3: 25mg q12h Day 4: 25mg at night Medical Decision Making This is a pleasant 47-year-old male with a past medical history of chronic alcoholism who presents today for dizziness. Patient states that for the last year he has had intermittent dizziness that comes and goes, however this morning he was noticing that it was quite a bit more present than usual, he turned to his right to say thank you to a friend and when he did he noticed that he became extremely dizzy and it did not go away. Is been persistent for the last few hours. He admits to a small amount of ringing in his ears. He states that he is drinking less than normal and working her regular job. He does admit to some intermittent chest tightness that occurs with the dizziness, but none currently. He denies any vomiting or diarrhea. He describes the dizziness as a room spinning sensation, made worse when he turns his head to the right. He denies any falls or trauma recently. He denies fever or chills. No headache or vision changes. No other complaints at this time. Exam demonstrates right-sided horizontal unidirectional fatigable nystagmus. Head impulse test is notably positive to the right. Roman-Hallpike is also positive. No vertical or rotatory nystagmus. Chief concern at this time is for peripheral vertigo. The patient has not had a scan of his head since the symptoms began. We will get a CAT scan to rule out stroke or mass or tumor or bleed. We will give meclizine, gently rehydrate, monitor closely and reassess. Patient will be signed out to my colleagues for follow-up on labs and imaging HPI General Date/Time Provider Initiated Documentation: 01/17/23 06:46 . HPI Narrative: This is a pleasant 47-year-old male with a past medical history of chronic alc oholism who presents today for dizziness. Patient states that for the last year he has had intermittent dizziness that comes and goes, however this morning he was noticing that it was quite a bit more present than usual, he turned to his right to say thank you to a friend and when he did he noticed that he became extremely dizzy and it did not go away. Is been persistent for the last few hours. He admits to a small amount of ringing in his ears. He states that he is drinking less than normal and working her regular job. He does admit to some intermittent chest tightness that occurs with the dizziness, but none currently. He denies any vomiting or diarrhea. He describes the dizziness as a room spinning sensation, made worse when he turns his head to the right. He denies any falls or trauma recently. He denies fever or chills. No headache or vision changes. No other complaints at this time. Related Data Home Medications Medication Instructions Recorded Confirmed chlordiazepoxide HCl 25 mg capsule See Rx Instructions .Route 11/11/22 .COMPLEX PRN #25 caps Previous Rx's Medication Instructions Recorded chlordiazepoxide HCl 25 mg capsule See Rx Instructions .Route 11/11/22 .COMPLEX PRN #25 caps Allergies Allergy/AdvReac Type Severity Reaction Status Date / Time No Known Allergies Allergy Unverified 11/11/22 03:17 General Stated Complaint: Dizzy/Sync SARAH: 3 Review of Systems All systems reviewed & are unremarkable except as noted in HPI and below PFSH All Active Problems Trochanteric bursitis, right hip (Acute) Avascular necrosis of bone of left hip (Acute) Chest pain (Acute) due to ETOH Hepatic steatosis (Acute) COVID-19 ruled out (Acute) Tobacco abuse (Acute) Impairment of balance (Acute) Chronic vertigo (Acute) Hypokalemia (Acute) Alcohol withdrawal (Acute) Electrolyte and fluid disorder (Acute) Medical History Alcoholism LAST DRINK WAS 2 WKS AGO Surgical History Cyst of right upper eyelid 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) Family History Maternal Grandfather Alcohol abuse Maternal Uncle Alcohol abuse Social History (Reviewed 01/17/23 @ 07:09 by PEARL Hernandez Smoking/Tobacco Use Status: Current every day Tobacco Type: cigarettes Smoking packs per day: 1 Smoking cigarettes per day: 20.0 Years smoked: 25 Smoking pack- years: 25.00 Smoking risk assessment performed?: Yes Alcohol Intake: current Alcohol Intake frequency: 3 or more drinks per day Alcohol type: beer and hard liquor Details: last drink was 2 weeks ago Drug use: Never Substance use type: does not use 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 3.ENT: Atraumatic external nose and ears. Moist MM. Neck: Symmetric, trachea midline, No thyromegaly. 4.CVS: +S1/S2, No murmurs or gallops. Peripheral pulses 2+ and equal in all extremities. Brisk capillary refill in all extremities. 5.RESP: Unlabored respiratory effort. Clear to auscultation bilaterally. No wheezes rales or rhonchi 6.GI: Soft, Nontender/Nondistended, No hepatosplenomegaly. No guarding or rebound. 7.MSK: Normocephalic/Atraumatic, Extremities w/o deformity or ttp No cyanosis or clubbing, Normal movement of all extremities 8.Skin: Warm, Dry. No rashes or lesions. 9.Neuro: branch administrator II-XII grossly intact. Sensation grossly intact, no focal neurologic deficits. Patient demonstrates right-sided unidirectional horizontal fatiguing nystagmus. No vertical or rotatory nystagmus. Symptoms are also made worse though when he looks up, but he does not have any vertical nystagmus. Head impulse test is notably positive. Test of skew is negative. Patient is able to ambulate well. All 6 cardinal planes of vision are fully intact. No evidence of rotatory or vertical nystagmus. The patient demonstrated a normal [id number], good dexterity. There was no evidence of dysdiadochokinesia. Patient was able to ambulate without difficulty. There was no wide-based gait. Romberg testing was normal. Bgcd-sa-[id number] testing was normal. Sensation was intact bilaterally as well as muscle strength bilaterally for all extremities. Patient was able to verbalize butter cup with no slurring, or miss pronunciation. 10.Psych: (AAO) x3. Appropriate mood and affect Course Vital Signs Vital signs: Vital Signs Temperature 36.4 C L 01/17/23 06:39 Pulse 89 01/17/23 06:39 Respiratory Rate 17 01/17/23 06:39 Blood Pressure 152/93 H 01/17/23 06:39 Pulse Oximetry 99 01/17/23 06:39 Temperature 36.4 C L 01/17/23 06:39 Temperature Source Oral 01/17/23 06:39 Pulse 89 01/17/23 06:39 Respiratory Rate 17 01/17/23 06:39 Respiratory Effort Normal 01/17/23 06:46 Respiratory Depth Normal 01/17/23 06:46 Respiratory Pattern Normal 01/17/23 06:46 Blood Pressure 152/93 H 01/17/23 06:39 Blood Pressure Position Sitting 01/17/23 06:39 Pulse Oximetry 99 01/17/23 06:39 Oxygen Delivery Method Room Air 01/17/23 06:39 Oxygen Flow Rate 0 01/17/23 06:39 Pain Level 0 01/17/23 06:39
[2023-01-17 07:20] LABS: Abs Immature Grans 0.02 10^3/uL (0.0-0.06); Absolute Basophil Count 0.07 10^3/uL (0.0-0.2); Absolute Eosinophil Count 0.07 10^3/uL (0.0-0.7); Absolute Lymphocyte Count 2.94 10^3/uL (1.2-3.4); Absolute Monocyte Count 0.95 10^3/uL (0.1-0.8); Absolute Neutrophil Count 3.66 10^3/uL (1.2-6.7); Basophils % 0.9; Eosinophils % 0.9; HCT 42.1 % (40.0-50.0); HGB 14.7 g/dL (13.5-17.5); Immature Grans % 0.3; Lymphocytes % 38.1; MCH 34.2 pg (27.0-33.0); MCHC 34.9 % (32.0-36.0); MCV 98 fL (80-95); MPV 9.4 fL (8.0-11.0); Monocytes % 12.3; Neutrophils % 47.5; Platelet Count 205 10^3/uL (130-400); RDW 11.4 % (11.8-14.1); RDW-SD 41.3 fL; WBC 7.71 10^3/uL (4.4-10.8)
--- NOTE | 2023-01-17 07:33 | DI.CT_ITS ---
Exam(s) CT HEAD WO EXAM: CT HEAD WO CLINICAL HISTORY: dizzy, r/o stroke, bleed, mass. TECHNIQUE: Imaging Protocol: Axial computed tomography images with coronal and sagittal reformatted images were created and reviewed COMPARISON: CT CT HEAD WO from 01/15/2022 FINDINGS: There are no skull fractures. There is no fluid in the visualized paranasal sinuses. There is no evidence of intracranial hemorrhage, mass effect, or shift of midline structures. There are no extra-axial fluid collections. The ventricles are not enlarged or shifted and there is no blo od within the ventricular system nor within the basal cisterns. IMPRESSION: No acute intracranial findings on this noninfused CT scan of the brain. RADIATION DOSE DELIVERED: 753.99mGy.cm Total DLP DATA REPOSITORY: All CT scans at this facility are submitted to the National Radiology Data Registry (NRDR) Dose Index Registry (DIR) with the [employer] (ACR). RADIATION OPTIMIZATION: All CT scans at this facility use at least one of these dose optimization te chniques: automated exposure control; mA and/or kV adjustment per patient size (includes targeted exa ms where dose is matched to clinical indication); or iterative reconstruction.
--- NOTE | 2023-01-17 07:42 | DI.VRAD_ITS ---
PROCEDURE INFORMATION: Exam: CT Head Without Contrast Exam date and time: 01/17/2023 7:26 AM Age: 47 years old Clinical indication: Dizziness TECHNIQUE: Imaging protocol: Computed tomography of the head without contrast. COMPARISON: CT HEAD WO 01/15/2022 2:20 AM FINDINGS: Brain: No intracranial hemorrhage appreciated. No significant focal mass effect or significant midline shift. Generalized parenchymal volume loss greater than expected for patient age. Cerebral ventricles: No disproportionate ventriculomegaly. Paranasal sinuses: Mild mucosal thickening in the left frontal and maxillary sinuses. Minimal fluid in the ethmoid air cells. Mastoid air cells: No mastoid effusion. Bones/joints: No acute cranial vault fracture seen. Soft tissues: No acute findings. IMPRESSION: 1. No acute intracranial abnormality is appreciated. 2. Sinus disease as above Dictated and Authenticated by: Monse Rasmussen MD. Ordering:IFEANYI Allen MD
[2023-01-17 07:48] LABS: ALT 30 U/L (16-63); AST 37 U/L (15-37); Albumin 3.7 g/dL (3.4-5.0); Alkaline Phosphatase 76 U/L (46-116); Anion Gap 12.5 mmol/L (3-11); BUN 5 mg/dL (7-18); Bilirubin, Total 0.3 mg/dL (0.2-1.0); CO2 26.5 mmol/L (21.0-32.0); CREATININE 0.8 mg/dL (0.70-1.30); Calcium 8.8 mg/dL (8.5-10.1); Chloride 104 mmol/L (98-107); ETHANOL BLOOD 96.6 mg/dL (<10); Estimated GFR 110.53 (mL/min/1.73m2); Glucose 105 mg/dL (74-106); Potassium 3.3 mmol/L (3.5-5.1); Sodium 143 mmol/L (136-145); TSH (W/Ref FT4) 2.92 uIU/mL (0.36-3.74); Total Protein 7.9 g/dL (6.4-8.2); Troponin I < 50 ng/L (<or=60)
--- NOTE | 2023-01-17 08:11 | ED.PROG_ITS ---
Date of service: 01/17/23 Time of Service: 08:11 Medical Decision Making I received signout on this 47-year-old male with history of alcohol abuse pending CT scan. Patient reportedly ambulated in the ED and had a positive [place]- Hallpike peripheral vertigo reportedly. His CT head was reassuring. He had ambulated in the ED. We will discharge patient now with a short course of meclizine and PCP follow-up as needed. Sign Out Sign Out Data: Sign Out Comment: Dizzy vertiginous symptoms. Follow-up on labs and imaging and reassess after meclizine and fluids Last updated by Alejandro Thomas DO at 01/17/23 07:33 Discharge Plan Disposition Patient Disposition: Home Discharge Details Clinical Impression: Alcohol abuse with intoxication with complication Primary Care Provider: Jerrica Gomes ED Provider: Aguilar Lange Home Meds and New Rx's Prescriptions: New meclizine 25 mg tablet 25 mg PO BID PRNQty: 7 0RF Continued chlordiazepoxide HCl 25 mg capsule See Rx Instructions .ROUTE .COMPLEX PRNQty: 25 0RF Rx Instructions: Day 1: 50mg q6 hours, Day 2: 25mg q6h Day 3: 25mg q12h Day 4: 25mg at night Discharge Instructions Instructions: Abuse of Alcohol (ED) Additional Instructions: You were seen in the emergency department for your dizziness. Your CAT scan showed no sign of any bleeding in your head. Please follow-up as needed this week with your primary care provider. Please take this prescription that you have been given as needed for dizziness.
== END 2023-01-17 08:34 | disposition home or self-care (01) ==
PROVIDERS: Student in an Organized Health Care Education/Training Program; Emergency Provider Emergency Medicine; PCP Nurse Practitioner Family
DX: F10.129 Alcohol abuse with intoxication, unspecified (principal); F10.188 Alcohol abuse with other alcohol-induced disorder
CPT/HCPCS: 80053; 93005; 96360; 99284; 70450; 80320; 84443; 84484; 85025; 93010

== ENCOUNTER 2023-02-24 18:55 | Emergency (ER) | payer MEDICAID, SELFPAY ==
[2023-02-24] VITALS (37 sets, daily range): BP systolic 101–132; BP diastolic 62–98; PULSE 77–90; RESP 12–21; TEMP 36.5; O2SAT 91–100
--- NOTE | 2023-02-24 18:45 | RT.EKG_ITS ---
APPROVED REPORT Exam: Resting ECG Reason for Exam: Chest pain Patient Location: E HR:88 bpm ECG Measurements Heart Rate 88 AXIS [place] 187 P 37 QRSd 101 QRS 38 QT 373 T 45 QTc 451 Conclusion Sinus rhythm...normal P axis, V-rate 60- 99 ST elev, probable normal early repol pattern...ST elevation, age<55 sinus rhythm, normal axis, normal intevals
--- NOTE | 2023-02-24 19:15 | DI.RAD_ITS ---
Exam(s) XR CHEST 2V PA LATERAL EXAM: XR CHEST 2V PA LATERAL CLINICAL HISTORY: Chest pain TECHNIQUE: 2D digital imaging was performed. COMPARISON: No exams were available for comparison FINDINGS: HEART: Normal size. Aorta: Not dilated. PULMONARY VASCULATURE: Normal. LUNGS: Clear. PLEURAL SPACE: No pleural effusion or pneumothorax. BONE:Unremarkable for age. IMPRESSION: No acute abnormality. DATA REPOSITORY: RADIATION DOSE DELIVERED:
--- NOTE | 2023-02-24 19:19 | W.ED.GENAD ---
Discharge Plan Disposition Patient Disposition: Home Condition: Improving Discharge Details Clinical Impression: Hypokalemia, Electrolyte and fluid disorder, Alcohol intoxication Primary Care Provider: OWEN GARRISON ED Provider: Meagan Hernandez Home Meds and New Rx's Prescriptions: No Action chlordiazepoxide HCl 25 mg capsule See Rx Instructions .ROUTE .COMPLEX PRNQty: 25 0RF Rx Instructions: Day 1: 50mg q6 hours, Day 2: 25mg q6h Day 3: 25mg q12h Day 4: 25mg at night meclizine 25 mg tablet 25 mg PO BID PRNQty: 7 0RF Discharge Instructions Instructions: Hypokalemia (ED), Alcohol Intoxication (ED) Additional Instructions: Your potassium is very low. Please increase bananas or potassium supplement within the next few days. You are super dehydrated. Please consider decreasing your alcohol intake. Follow up with primary care provider in 3-5 days. Return to ED sooner if any worsening or concerns. Increase oral fluids. Increase oral electrolyte fluids including Gatorade or similar. No evidence of heart attack. Stand Alone Forms: Work Release Referrals: OWEN GARRISON, LUMBER STACKER DRIVER [Primary Care Provider] - 5 days Discharge Data Discharge Date/Time-TO BE ENTERED AT DEPARTURE: 02/24/23 23:03 Medical Decision Making 47-year-old male presents to the ER via EMS with chief complaint of chest pain x1 month. He does endorse EtOH, he was given 324 mg aspirin and 1 sublingual nitro prior to arrival by EMS. He reports that he has had some sharp shooting left-sided chest pain with radiation down his arm. He denies any drugs. He reports he was seen at with his neighbor prior to arrival and was passing out. He is a daily smoker. Patient does have slurred speech appears under the influence and is disheveled. No signs of trauma. Of note patient states he does not have an air conditioner and reports this is attributed to the heat. EKG was reviewed by Dr. Zia Moreno ER attending, old EKG available for review. Please see his official report. Questionable repolarization and ST elevation. Cardiac work-up ordered including serial troponins, chest x-ray UDS and alcohol level. CBC shows no leukocytosis, sodium 130, potassium 2.4 chloride 87 anion gap 7.2 glucose 114 magnesium 1.6 AST is 81 initial troponin within normal limits. Ethyl alcohol level is 474.9 Magnesium oxide 40 mg p.o. ordered, 40 mill equivalents of potassium p.o. and 20 mill equivalents potassium IV ordered. Patient is receiving a 500 cc bolus per EMS which is infused. Chest x-ray within normal limits. Patient is sleeping without difficulty vital signs are stable. Patient is requesting to leave he is sitting up at side of his bed. We were able to get a hold of family who can come and get him. Patient states that he is worried about his dog. I did encourage him to wait till his repeat labs are drawn. I also did discuss that his judgment is impaired due to intoxication. If patient leaves prior to completion of his work-up it will be AGAINST MEDICAL ADVICE. I did explain this to the patient he is willing to stay at this time. Serial troponin within normal limits potassium is improved to 3.3. Patient discharged with family, he was ambulatory without assistance prior to discharge here in the department. Hemodynamically stable. This text was generated using [employer] dictation system, please disregard any oddities of phrase or misspellings. Medical Records Medical records reviewed: Yes I reviewed the patient's medical records. Imaging Data Radiologic Study: Imaging: X-Ray Radiologist's impression: TECHNIQUE: Imaging protocol: Radiologic exam of the chest. Views: 2 views. COMPARISON: CR XR RIBS RT W PA LAT CHEST 04/18/2022 11:52 AM FINDINGS: Lungs: Unremarkable. No consolidation. Pleural spaces: Unremarkable. No pleural effusion. No pneumothorax. Heart/Mediastinum: Unremarkable. No cardiomegaly. Bones/joints: Unremarkable. IMPRESSION: No acute findings. Thank you for allowing us to participate in the care of your patient. Dictated and Authenticated by: Ronak Reed MD Lab Data Lab results reviewed: Yes I reviewed the patient's lab results. Labs: Laboratory Tests Range/Units 02/24/23 02/24/23 02/24/23 19:02 19:02 20:07 WBC (4.4-10.8) 10^3/uL 8.99 RBC (4.36-5.78) 10^6/uL 4.06 L Hgb (13.5-17.5) g/dL 14.3 Hct (40.0-50.0) % 38.2 L MCV (80-95) fL 94 MCH (27.0-33.0) pg 35.2 H MCHC (32.0-36.0) % 37.4 H RDW (11.8-14.1) % 12.1 Plt Count (130-400) 10^3/uL 142 MPV (8.0-11.0) fL 9.6 Immature Gran % 0.3 Neutrophils % 54.7 Lymphocytes % 36.0 Monocytes % 8.5 Eosinophils % 0.2 Basophils % 0.3 Nucleated RBC % (0.0-0.3) % 0.0 Absolute Neutrophils (1.2-6.7) 10^3/uL 4.91 Absolute Lymphocytes (1.2-3.4) 10^3/uL 3.24 Absolute Monocytes (0.1-0.8) 10^3/uL 0.76 Absolute Eosinophils (0.0-0.7) 10^3/uL 0.02 Absolute Basophils (0.0-0.2) 10^3/uL 0.03 Sodium (136-145) mmol/L 130 L Potassium (3.5-5.1) mmol/L 2.4 L* Chloride (98-107) mmol/L 87 L Carbon Dioxide (21.0-32.0) mmol/L 25.8 Anion Gap (3-11) mmol/L 17.2 H BUN (7-18) mg/dL 7 Creatinine (0.70-1.30) mg/dL 0.8 Est GFR (CKD-EPI 2020) (mL/min/1.73m2) 110.53 Glucose (74-106) mg/dL 114 H Calcium (8.5-10.1) mg/dL 10.0 Magnesium (1.8-2.4) mg/dL 1.6 L Total Bilirubin (0.2-1.0) mg/dL 0.8 AST (15-37) U/L 81 H ALT (16-63) U/L 45 Alkaline Phosphatase (46-116) U/L 88 Troponin I (<or=60) ng/L < 50 Total Protein (6.4-8.2) g/dL 8.4 H Albumin (3.4-5.0) g/dL 4.3 Urine Opiates Screen (Negative) Negative Urine Methadone Screen (Negative) Negative Ur Barbiturates Screen (Negative) Negative Ur Tricyclics Screen (Negative) Negative Ur Amphetamines Screen (Negative) Negative U Benzodiazepines Scrn (Negative) Negative Urine Cocaine Screen (Negative) Negative Ur THC Screen (Negative) Negative Ethyl Alcohol (<10) mg/dL 474.9 H HPI General Mode of arrival: EMS. Date/Time Provider Initiated Documentation: 02/24/23 19:16. Limitations to Documentation: no limitations. Information obtained by: patient, EMS, RN notes reviewed and old records reviewed. HPI Narrative: 47-year-old male presents to the ER via EMS with chief complaint of chest pain x1 month. He does endorse EtOH, he was given 324 mg aspirin and 1 sublingual nitro prior to arrival by EMS. He reports that he has had some sharp shooting left-sided chest pain with radiation down his arm. He denies any drugs. He reports he was seen at with his neighbor prior to arrival and was passing out. He is a daily smoker. Patient does have slurred speech appears under the influence and is disheveled. No signs of trauma. Of note patient states he does not have an air conditioner and reports this is attributed to the heat. Related Data Home Medications Medication Instructions Recorded Confirmed chlordiazepoxide HCl 25 mg capsule See Rx Instructions .Route 11/11/22 .COMPLEX PRN #25 caps meclizine 25 mg tablet 25 mg PO BID PRN #7 tabs 01/17/23 Previous Rx's Medication Instructions Recorded chlordiazepoxide HCl 25 mg capsule See Rx Instructions .Route 11/11/22 .COMPLEX PRN #25 caps meclizine 25 mg tablet 25 mg PO BID PRN #7 tabs 01/17/23 Allergies Allergy/AdvReac Type Severity Reaction Status Date / Time No Known Allergies Allergy Unverified 11/11/22 03:17 General Stated Complaint: Chest Pain SARAH: 2 Review of Systems All systems reviewed & are unremarkable except as noted in HPI and below Cardiovascular Cardiovascular: Reports chest pain, Reports chest pain at rest and Reports dyspnea Respiratory Respiratory: Reports dyspnea PFSH All Active Problems (Updated 02/24/23 @ 22:48 by Meagan Hernandez NP) Alcohol intoxication (Acute) Trochanteric bursitis, right hip (Acute) Avascular necrosis of bone of left hip (Acute) Chest pain (Acute) due to ETOH Hepatic steatosis (Acute) COVID-19 ruled out (Acute) Tobacco abuse (Acute) Impairment of balance (Acute) Chronic vertigo (Acute) Hypokalemia (Acute) Alcohol withdrawal (Acute) Electrolyte and fluid disorder (Acute) Medical History Alcoholism LAST DRINK WAS 2 WKS AGO Surgical History Cyst of right upper eyelid 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) Family History Maternal Grandfather Alcohol abuse Maternal Uncle Alcohol abuse Social History Smoking/Tobacco Use Status: Current every day Tobacco Type: cigarettes Smoking packs per day: 1 Smoking cigarettes per day: 20.0 Years smoked: 25 Smoking pack-years: 25.00 Smoking risk assessment performed?: Yes Alcohol Intake: current Alcohol Intake frequency: 3 or more drinks per day Alcohol type: beer and hard liquor Details: last drink was 2 weeks ago Drug use: Never Substance use type: does not use Housing: 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 Exam Narrative Exam Narrative: Constitutional: Alert and oriented x3. Appears stated age. Patient is disheveled, slurred speech under the influence. Normal body habitus. Head: Normocephalic, no trauma. Eyes: Pupils PERRL, Red reflex noted, EOM's intact. Eyelids symmetrical without lesions, discharge, or swelling. ENT: Bilateral TM's WNL, External ear normal to inspection, no mastoid TTP, swelling, or erythema, Nasal turbinates WNL, no nasal discharge. Normal dentition, Posterior pharynx WNL, no exudate. Chest: RRR, Normal S1, S2, distal pulses intact. Resp: Lungs clear to auscultation bilaterally, no wheezes, rales, or rhonchi. Abdomen: Soft, non-distended, Normoactive bowel sounds all 4 quads. Musculoskeletal: Normal gait, 5/5 strength to all four extremities. Skin: No suspicious rashes or lesions. Capillary refill less than 2 sec. Neurologic: Cranial nerves II-XII intact. Alert and oriented x 3. Motor: No deficits noted. Sensory: Intact bilaterally all 4 extremities. Reflexes: DTR's intact bilaterally.. Hematologic/Lymphatic: No ecchymosis, no lymphadenopathy. Course Vital Signs Vital signs: Vital Signs Pulse 89 02/24/23 18:57 Respiratory Rate 18 02/24/23 18:57 Blood Pressure 124/95 H 02/24/23 18:57 Pulse Oximetry 92 02/24/23 18:57 Pulse 89 02/24/23 18:57 Respiratory Rate 18 02/24/23 18:57 Respiratory Effort Normal, Non-Labored 02/24/23 19:02 Blood Pressure 124/95 H 02/24/23 18:57 Blood Pressure Position Sitting 02/24/23 18:57 Pulse Oximetry 92 02/24/23 18:57 Oxygen Delivery Method Room Air 02/24/23 18:57 Oxygen Flow Rate 0 02/24/23 18:57 Pain Level 9 02/24/23 18:57 PAWSS Have you Been Recently Intoxicated or Drunk Within the Last 30 days?: Yes Have you Ever Experienced Previous Episodes of Alcohol Withdrawal?: Yes Have you ever Experienced Withdrawal Seizures?: Unable to Obtain Have you ever Experienced Delirium Tremens(DT)s?: Yes Have you ever undergone Alcohol Rehabilitation Treatment (i.e, inpt ot outpatient treatment programs)?: Yes Have you ever Experienced Blackouts?: Yes Have you ever Combined Alcohol with other Downers within the last 90 days?: No Have you ever Combined Alcohol with any other Substance of Abuse during the last 90 days?: No Positive Blood Alcohol level on Presentation? [PCS.BAL]: Unable to Obtain Evidence of Increased Autonomic Activity (i.e. HR>120, tremor, sweating, agitation, nausea)?: No Result: 5
[2023-02-24 19:27] LABS: Abs Immature Grans 0.03 10^3/uL (0.0-0.06); Absolute Basophil Count 0.03 10^3/uL (0.0-0.2); Absolute Eosinophil Count 0.02 10^3/uL (0.0-0.7); Absolute Lymphocyte Count 3.24 10^3/uL (1.2-3.4); Absolute Monocyte Count 0.76 10^3/uL (0.1-0.8); Absolute Neutrophil Count 4.91 10^3/uL (1.2-6.7); Basophils % 0.3; Eosinophils % 0.2; HCT 38.2 % (40.0-50.0); HGB 14.3 g/dL (13.5-17.5); Immature Grans % 0.3; MCH 35.2 pg (27.0-33.0); MCHC 37.4 % (32.0-36.0); MCV 94 fL (80-95); MPV 9.6 fL (8.0-11.0); Monocytes % 8.5; Neutrophils % 54.7; Platelet Count 142 10^3/uL (130-400); RBC 4.06 10^6/uL (4.36-5.78); RDW 12.1 % (11.8-14.1); RDW-SD 41.6 fL; WBC 8.99 10^3/uL (4.4-10.8)
[2023-02-24 19:44] LABS: ALT 45 U/L (16-63); AST 81 U/L (15-37); Albumin 4.3 g/dL (3.4-5.0); Alkaline Phosphatase 88 U/L (46-116); Anion Gap 17.2 mmol/L (3-11); BUN 7 mg/dL (7-18); Bilirubin, Total 0.8 mg/dL (0.2-1.0); CO2 25.8 mmol/L (21.0-32.0); CREATININE 0.8 mg/dL (0.70-1.30); Chloride 87 mmol/L (98-107); Estimated GFR 110.53 (mL/min/1.73m2); Glucose 114 mg/dL (74-106); Magnesium 1.6 mg/dL (1.8-2.4); Sodium 130 mmol/L (136-145); Total Protein 8.4 g/dL (6.4-8.2); Troponin I < 50 ng/L (<or=60)
[2023-02-24 19:47] LABS: ETHANOL BLOOD 474.9 mg/dL (<10); Potassium 2.4 mmol/L (3.5-5.1)
[2023-02-24] MEDS: Normal Saline 1,000 ML 250 ML IV (19:55)
[2023-02-24] MEDS: Potassium Chloride Liquid 20 MEQ PKT 40 MEQ PO (19:56)
[2023-02-24] MEDS: Magnesium Oxide 400 MG TAB PO (19:56)
[2023-02-24] MEDS: POTASSIUM CHLORIDE 20 MEQ/100 ML BAG 50 MEQ IVPB (19:57)
[2023-02-24 20:26] LABS: *AMPHETAMINES SCREEN URINE Negative (Negative); *BARBITURATES SCREEN URINE Negative (Negative); *BENZODIAZEPINES SCREEN URINE Negative (Negative); Cannabinoids THC Negative (Negative); Cocaine Screen,Urine Negative (Negative); METHADONE URINE SCREEN Negative (Negative); OPIATES URINE SCREEN Negative (Negative)
[2023-02-24 20:27] LABS: Tricyclic Antidepressants Negative (Negative)
--- NOTE | 2023-02-24 20:37 | DI.VRAD_ITS ---
PROCEDURE INFORMATION: Exam: XR Chest Exam date and time: 02/24/2023 8:15 PM Age: 47 years old Clinical indication: Other: Chest pain TECHNIQUE: Imaging protocol: Radiologic exam of the chest. Views: 2 views. COMPARISON: CR XR RIBS RT W PA LAT CHEST 04/18/2022 11:52 AM FINDINGS: Lungs: Unremarkable. No consolidation. Pleural spaces: Unremarkable. No pleural effusion. No pneumothorax. Heart/Mediastinum: Unremarkable. No cardiomegaly. Bones/joints: Unremarkable. IMPRESSION: No acute findings. Dictated and Authenticated by: Ronak Reed MD. Ordering:SHA Rhodes MD
[2023-02-24] MEDS: Normal Saline 1,000 ML 1000 ML IV (22:02)
[2023-02-24 22:33] LABS: Anion Gap 11.4 mmol/L (3-11); BUN 6 mg/dL (7-18); CO2 26.6 mmol/L (21.0-32.0); CREATININE 0.7 mg/dL (0.70-1.30); Calcium 8.7 mg/dL (8.5-10.1); Chloride 100 mmol/L (98-107); Estimated GFR 115.08 (mL/min/1.73m2); Glucose 94 mg/dL (74-106); Potassium 3.3 mmol/L (3.5-5.1); Sodium 138 mmol/L (136-145)
[2023-02-24 22:42] LABS: Troponin I < 50 ng/L (<or=60)
== END 2023-02-24 23:03 | disposition home or self-care (01) ==
PROVIDERS: Emergency Provider Registered Nurse Emergency; PCP Nurse Practitioner Family
DX: E87.6 Hypokalemia (principal); F10.920 Alcohol use, unspecified with intoxication, uncomplicated; E87.8 Other disorders of electrolyte and fluid balance, not elsewhere classified; R07.9 Chest pain, unspecified; F17.210 Nicotine dependence, cigarettes, uncomplicated
CPT/HCPCS: 80048; 80053; 80307; 93005; 96361; 96365; 96366; 99284; 71046; 80320; 83735; 84484; 85025; 93010; J3480

== ENCOUNTER 2023-02-27 19:07 | Outpatient (REF) | payer MEDICAID, SELFPAY ==
[2023-02-27 19:53] LABS: Abs Immature Grans 0.01 10^3/uL (0.0-0.06); Absolute Basophil Count 0.06 10^3/uL (0.0-0.2); Absolute Eosinophil Count 0.04 10^3/uL (0.0-0.7); Absolute Lymphocyte Count 2.49 10^3/uL (1.2-3.4); Absolute Monocyte Count 0.36 10^3/uL (0.1-0.8); Absolute Neutrophil Count 1.57 10^3/uL (1.2-6.7); Basophils % 1.3; Eosinophils % 0.9; HCT 38.9 % (40.0-50.0); HGB 13.9 g/dL (13.5-17.5); Immature Grans % 0.2; MCH 35.4 pg (27.0-33.0); MCHC 35.7 % (32.0-36.0); MCV 99 fL (80-95); MPV 9.7 fL (8.0-11.0); Monocytes % 7.9; Neutrophils % 34.7; Platelet Count 121 10^3/uL (130-400); RBC 3.93 10^6/uL (4.36-5.78); RDW 12.6 % (11.8-14.1); RDW-SD 45.3 fL; WBC 4.53 10^3/uL (4.4-10.8)
[2023-02-27 20:38] LABS: Iron 189 ug/dL (65-175); Total Iron Binding Capacity 321 ug/dL (250-450); Transferrin Sat 59 % (20-55)
[2023-02-27 20:56] LABS: ALT 43 U/L (16-63); AST 68 U/L (15-37); Albumin 3.8 g/dL (3.4-5.0); Alkaline Phosphatase 69 U/L (46-116); Anion Gap 16.2 mmol/L (3-11); BUN 5 mg/dL (7-18); Bilirubin, Total 0.4 mg/dL (0.2-1.0); CO2 23.8 mmol/L (21.0-32.0); CREATININE 0.6 mg/dL (0.70-1.30); Calcium 8.7 mg/dL (8.5-10.1); Chloride 102 mmol/L (98-107); Estimated GFR 120.57 (mL/min/1.73m2); Folate 3.8 ng/mL (8.6-20.0); Glucose 92 mg/dL (74-106); Potassium 3.4 mmol/L (3.5-5.1); Sodium 142 mmol/L (136-145); TSH (W/Ref FT4) 0.72 uIU/mL (0.36-3.74); Total Protein 7.4 g/dL (6.4-8.2); Vitamin B12 565 pg/mL (193-986)
== END 2023-02-27 19:08 | disposition home or self-care (01) ==
LOC: NCHCN 19:07
PROVIDERS: PCP Nurse Practitioner Family; Visit Provider Nurse Practitioner Family
DX: F10.10 Alcohol abuse, uncomplicated (principal); E87.6 Hypokalemia; E83.42 Hypomagnesemia; R74.8 Abnormal levels of other serum enzymes
CPT/HCPCS: 80053; 82607; 82746; 83540; 83550; 84443; 85025

== ENCOUNTER 2023-04-17 05:36 | Emergency (ER) | payer MEDICAID, SELFPAY ==
[2023-04-17] VITALS (11 sets, daily range): BP systolic 139–185; BP diastolic 87–103; PULSE 64–100; RESP 12–17; TEMP 36.9; O2SAT 96–98
--- NOTE | 2023-04-17 05:30 | RT.EKG_ITS ---
APPROVED REPORT Exam: Resting ECG Reason for Exam: dizziness Patient Location: E HR:80 bpm ECG Measurements Heart Rate 80 AXIS WY 167 P 16 QRSd 85 QRS 66 QT 371 T 72 QTc 428 Conclusion Sinus rhythm...normal P axis, V-rate 60- 99 Physician: no stemi
--- NOTE | 2023-04-17 05:42 | ED.GENADUL_ITS ---
Discharge Plan Disposition Patient Disposition: Home Condition: Good Discharge Details Clinical Impression: Peripheral vertigo Primary Care Provider: OWEN GARRISON ED Provider: Alejandro Thomas Home Meds and New Rx's Prescriptions: New meclizine [Antivert] 25 mg tablet,chewable 25 mg PO BID Qty: 20 0RF No Action chlordiazepoxide HCl 25 mg capsule See Rx Instructions .ROUTE .COMPLEX PRNQty: 25 0RF Rx Instructions: Day 1: 50mg q6 hours, Day 2: 25mg q6h Day 3: 25mg q12h Day 4: 25mg at night meclizine 25 mg tablet 25 mg PO BID PRNQty: 7 0RF Discharge Instructions Instructions: Benign Paroxysmal Positional Vertigo (ED) Additional Instructions: At this time her symptoms appear consistent with peripheral vertigo. Please take the meclizine as directed. Is been sent to pharmacy on file. If you notice any worsening of your symptoms, or any new symptoms such as vomiting, diarrhea, fever, chills, shortness of breath, chest pain, numbness, weakness, or fainting , please return immediately to the emergency department for reevaluation. Please follow up with your primary care provider as soon as possible for reassessment and reevaluation. As always, it was a pleasure participating in your medical care today. Referrals: OWEN GARRISON, REMEDIAL PROJECT MANAGER [Primary Care Provider] - Medical Decision Making This is a very pleasant 48-year-old male with a past medical history of vertigo, chronic alcohol abuse, who presents today for evaluation of dizziness. Patient states that at around midnight he turned his head and he suddenly became very dizzy. It is made worse when he lies flat or turns his head. The room seems to be spinning and a lateral direction. He denies any headache, chest pain or shortness of breath. He denies any numbness tingling or weakness. No other complaints at this time. He has still been drinking some alcohol unfortunately. He denies any falls or trauma. Exam demonstrates a very pleasant male, however he does have horizontal fatigable unidirectional nystagmus. Neurologic exam is otherwise normal. Dry mucous membranes. [place]-Hallpike is positive for symptomatology, and's exam suggest peripheral etiology. Will give meclizine, rehydrate, monitor closely and reassess. 6:30 AM Laboratory work-up is returned stable. Electrolytes stable. On reassessment patient feels much better, dizziness is improved/resolved. Patient is requesting discharge. Will give prescription for meclizine. Symptoms clinically inconsistent with cerebellar stroke. No indication for emergent imaging. I have extensively reviewed the treatment plan and discharge instructions with the patient. I have addressed all patient concerns at this time. The patient was made aware of what symptoms to monitor for that would warrant a return to the emergency department. Discussed the plan with the patient, they demonstrate verbal understanding and agreement with our assessment and plan at this time. The documentation in this chart was dictated using [employer] dictation software. Please excuse any dictation errors. HPI General Date/Time Provider Initiated Documentation: 04/17/23 05:37 . HPI Narrative: This is a very pleasant 48-year-old male with a past medical history of vertigo, chronic alcohol abuse, who presents today for evaluation of dizziness. Patient states that at around midnight he turned his head and he suddenly became very dizzy. It is made worse when he lies flat or turns his head. The room seems to be spinning and a lateral direction. He denies any headache, chest pain or shortness of breath. He denies any numbness tingling or weakness. No other complaints at this time. He has still been drinking some alcohol unfortunately. He denies any falls or trauma. Related Data Home Medications Medication Instructions Recorded Confirmed chlordiazepoxide HCl 25 mg capsule See Rx Instructions .Route 11/11/22 04/17/23 .COMPLEX PRN #25 caps meclizine 25 mg tablet 25 mg PO BID PRN #7 tabs 01/17/23 04/17/23 meclizine 25 mg chewable tablet 25 mg PO BID #20 tabs 04/17/23 (Antivert) Previous Rx's Medication Instructions Recorded chlordiazepoxide HCl 25 mg capsule See Rx Instructions .Route 11/11/22 .COMPLEX PRN #25 caps meclizine 25 mg tablet 25 mg PO BID PRN #7 tabs 01/17/23 meclizine 25 mg chewable tablet 25 mg PO BID #20 tabs 04/17/23 (Antivert) Allergies Allergy/AdvReac Type Severity Reaction Status Date / Time No Known Allergies Allergy Unverified 11/11/22 03:17 General SARAH: 2 Review of Systems All systems reviewed & are unremarkable except as noted in HPI and below PFSH All Active Problems (Updated 04/17/23 @ 06:28 by Alejandro Thomas DO) Peripheral vertigo (Acute) Trochanteric bursitis, right hip (Acute) Avascular necrosis of bone of left hip (Acute) Chest pain (Acute) due to ETOH Hepatic steatosis (Acute) COVID-19 ruled out (Acute) Tobacco abuse (Acute) Impairment of balance (Acute) Chronic vertigo (Acute) Hypokalemia (Acute) Alcohol withdrawal (Acute) Electrolyte and fluid disorder (Acute) Medical History Alcoholism LAST DRINK WAS 2 WKS AGO Surgical History Cyst of right upper eyelid 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) Family History Maternal Grandfather Alcohol abuse Maternal Uncle Alcohol abuse Social History Smoking/Tobacco Use Status: Current every day Tobacco Type: cigarettes Smoking packs per day: 1 Smoking cigarettes per day: 20.0 Years smoked: 25 Smoking pack- years: 25.00 Smoking risk assessment performed?: Yes Alcohol Intake: current Alcohol Intake frequency: 3 or more drinks per day Alcohol type: beer and hard liquor Details: last drink was 2 weeks ago Drug use: Never Substance use type: does not use Housing: 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 Exam Narrative Exam Narrative: 1.Const: Well-nourished, Well-developed, appearing stated age 2.Eyes: PERRL, no conjunctival injection, and symmetrical lids. 3.ENT: Atraumatic external nose and ears. Dry MM. Neck: Symmetric, trachea midline, No thyromegaly. 4.CVS: +S1/S2, No murmurs or gallops. Peripheral pulses 2+ and equal in all extremities. Brisk capillary refill in all extremities. 5.RESP: Unlabored respiratory effort. Clear to auscultation bilaterally. No wheezes rales or rhonchi 6.GI: Soft, Nontender/Nondistended, No hepatosplenomegaly. No guarding or rebound. 7.MSK: Normocephalic/Atraumatic, Extremities w/o deformity or ttp No cyanosis or clubbing, Normal movement of all extremities 8.Skin: Warm, Dry. No rashes or lesions. 9.Neuro: hot pond operator II-XII grossly intact. Sensation grossly intact, no focal neurologic deficits. Unidirectional horizontal fatigable nystagmus is noted. No vertical or rotatory nystagmus. Normal test of skew. Positive head impulse test. Positive [place]-Hallpike maneuver. All 6 cardinal planes of vision are fully intact. No evidence of rotatory or vertical nystagmus. The patient demonstrated a normal [id number], good dexterity. There was no evidence of dysdiadochokinesia. Patient was able to ambulate without difficulty. There was no wide-based gait. Romberg testing was normal. Pobj-fj-cyer testing was normal. Sensation was intact bilaterally as well as muscle strength bilaterally for all extremities. Patient was able to verbalize butter cup with no slurring, or miss pronunciation. 10.Psych: (AAO) x3. Appropriate mood and affect
[2023-04-17 06:00] LABS: Abs Immature Grans 0.03 10^3/uL (0.0-0.06); Absolute Basophil Count 0.08 10^3/uL (0.0-0.2); Absolute Eosinophil Count 0.12 10^3/uL (0.0-0.7); Absolute Lymphocyte Count 2.35 10^3/uL (1.2-3.4); Absolute Monocyte Count 1.41 10^3/uL (0.1-0.8); Absolute Neutrophil Count 6.57 10^3/uL (1.2-6.7); Basophils % 0.8; Eosinophils % 1.1; HCT 40.9 % (40.0-50.0); HGB 14.7 g/dL (13.5-17.5); Immature Grans % 0.3; Lymphocytes % 22.3; MCH 35.9 pg (27.0-33.0); MCHC 35.9 % (32.0-36.0); MCV 100 fL (80-95); MPV 9.3 fL (8.0-11.0); Monocytes % 13.4; Neutrophils % 62.1; Platelet Count 168 10^3/uL (130-400); RBC 4.09 10^6/uL (4.36-5.78); RDW 12.1 % (11.8-14.1); WBC 10.56 10^3/uL (4.4-10.8)
[2023-04-17] MEDS: Meclizine 25 MG TAB 50 MG PO (06:00)
[2023-04-17] MEDS: Normal Saline 1,000 ML 1000 ML IV (06:00)
[2023-04-17 06:15] LABS: ALT 44 U/L (16-63); AST 41 U/L (15-37); Albumin 3.6 g/dL (3.4-5.0); Alkaline Phosphatase 101 U/L (46-116); Anion Gap 14.3 mmol/L (3-11); BUN 5 mg/dL (7-18); Bilirubin, Total 0.4 mg/dL (0.2-1.0); CO2 24.7 mmol/L (21.0-32.0); CREATININE 0.7 mg/dL (0.70-1.30); Calcium 9.2 mg/dL (8.5-10.1); Chloride 98 mmol/L (98-107); Estimated GFR 114.37 (mL/min/1.73m2); Glucose 107 mg/dL (74-106); Potassium 3.4 mmol/L (3.5-5.1); Sodium 137 mmol/L (136-145); Total Protein 8.1 g/dL (6.4-8.2)
== END 2023-04-17 06:37 | disposition home or self-care (01) ==
PROVIDERS: Emergency Provider Student in an Organized Health Care Education/Training Program; PCP Nurse Practitioner Family
DX: R42 Dizziness and giddiness (principal)
CPT/HCPCS: 80053; 93005; 96360; 99284; 85025; 93010

== ENCOUNTER 2023-09-03 08:24 | Inpatient (IN) | payer MEDICAID, SELFPAY ==
[2023-09-03] VITALS (95 sets, daily range): BP systolic 91–162; BP diastolic 54–107; PULSE 63–109; RESP 12–23; TEMP 36–37.7; O2SAT 90–100
--- NOTE | 2023-09-03 08:15 | RT.EKG_ITS ---
APPROVED REPORT Exam: Resting ECG Reason for Exam: SOB Patient Location: E HR:106 bpm ECG Measurements Heart Rate 106 AXIS MT 167 P 61 QRSd 88 QRS 50 QT 338 T 56 QTc 450 Conclusion Sinus tachycardia...rate> 99 Narrow complex sinus tachycardia at a rate of 106. Normal axis. Intervals within normal limits. T wave flattening in aVL. No ST segment abnormalities. Compared to prior dated last year T wave mel ening in aVL has improved compared to prior T wave version. No acute injury pattern.
--- NOTE | 2023-09-03 08:34 | ED.GENADUL_ITS ---
HPI General Stated Complaint: SOB SARAH: 3 Date/Time Provider Initiated Documentation: 09/03/23 08:32. HPI Narrative: MDM This is an uncomfortable appearing tachycardic and hypertensive 48-year-old male with history of alcohol abuse and withdrawal concerning for withdrawal. Given chest pain will obtain 2 sets of troponins but the patient has a nonischemic ECG and lacks risk factors for ACS. No tearing quality to pain to suggest aortic dissection. Patient did vomit which raises the possibility of esophageal rupture however he had no hematemesis is nontoxic-appearing has no crepitance so will defer CT scan at this point. PE certainly a possibility and patient is low risk so we will order D-dimer with a cutoff of 1000 based on years criteria. No pain out of proportion to suggest necrotizing soft tissue infection.No fevers to suggest pneumonia however will obtain chest x-ray. No wheezes nor history of reactive airway disease will defer further nebulizers and steroids. QTc within normal limits on ECG however will obtain a magnesium and a potassium to assess for acute electrolyte derangements. Patient could also be having pancreatitis from his history of alcohol abuse so we will obtain a lipase. I considered sepsis however the absence of fevers and infectious symptoms I did not order lactate broad-spectrum antibiotics ordered blood cultures. Will place patient on a CIWA protocol. 9:15 AM CBC showing no anemia nor thrombocytopenia. No leukocytosis. Patient CIWA score with his nurse was 21. He admits to drinking 5-6 drinks during the day yesterday and a shot every hour to try to fall asleep. Will load with phenobarbital at 10 mg/kg to prevent progression and ideally stave off ICU hospitalization. Will also add on standard lorazepam based CIWA dosing. 9:30 AM Patient was found to be hypokalemia with a serum potassium of 2.9 mmol/L for which he will receive IV repletion. Fortunately QTc within normal limits. Gap acidosis, likely secondary to alcoholic ketoacidosis. Normal bicarbonate. Mild hyperglycemia. Not consistent with DKA. Mildly elevated LFTs. Hyperbilirubinemia new compared to prior. Mildly elevated CK not consistent with rhabdomyolysis. Mildly elevated lipase not consistent with pancreatitis. Mild hypomagnesium Gay for which patient will receive IV repletion. Ethanol level elevated at 48 mg/dL. Negative initial troponin. Negative D-dimer. 10 AM I spoke with Dr. Rose who agreed graciously to accept the patient for hospitalization. He requested another 20 milliequivalents of potassium which I ordered orally. Chronic conditions affecting the care of the patient: Alcohol abuse History obtained from an outside historian: Paramedics External record review: [facility] EMR records [Diagnostic interpretations performed by me: Per my independent interpretation chest x-ray shows: No acute cardiopulmonary process Per my independent interpretation EKG shows: Narrow complex sinus tachycardia at a rate of 106. Normal axis. Intervals within normal limits. T wave flattening in aVL. No ST segment abnormalities. Compared to prior dated last year T wave flattening in aVL has improved compared to prior T wave version. No acute injury pattern. Medications: Ondansetron Social determinants of health affecting disposition: N/A Management discussed with: Dr. Rose Treatment/interventions considered: N/A Response to therapies provided: Improved tachycardia with fluids HPI This is a 48-year-old male with a history of alcohol abuse who drinks 5-6 drinks per day and has a history of withdrawal but not intubations nor seizures arriving via paramedics in the setting of shortness of breath and chest pain. Patient reports that her symptoms began last night at approximately 9 PM. He last drank this morning at 7 AM. He has had no cough no fevers nor chills. He denies past medical history although chart review indicates that he has been hospitalized for alcohol withdrawal and pancreatitis in the past. He has never had a PE nor DVT. He vomited once this morning but denied hematuria. He is having no abdominal pain. He endorses a central chest discomfort that is not radiating. He has no history of coronary artery disease hypertension or hyperlipidemia. No family history of premature coronary artery disease. He is a daily smoker but denies illicit drug use. Paramedics gave patient a nebulized albuterol treatment. He has no history of reactive airway disease and denies asthma and COPD. No history of abdominal surgeries. Denies dysuria and frequency. Endorses dizziness. Exam General: Uncomfortable-appearing in mild distress speaking in complete sentences. Mildly tremulous Head: Normocephalic, atraumatic. Eye:[Pupils equal, round reactive to light.] Extraocular eye movements intact. No conjunctival injection. No scleral icterus. Ear, nose, mouth, throat: Grossly normal inspection. Normal voice, handling secretions normally. Neck: Trachea midline. Cardiovascular: Well-perfused distal extremities. Rapid regular rate Respiratory: Nonlabored respiration. Clear lungs bilaterally Gastrointestinal: Nondistended abdomen. Soft nontender Musculoskeletal: No edema. Moving all 4 extremities spontaneously. Skin: Normal for age and race, grossly normal temperature and turgor. No acute rash. Neurologic: Alert and appropriate, no apparent acute deficits. GCS 15. No tongue fasciculations. Psychiatric: Mood and manner are appropriate. Grooming and personal hygiene are appropriate. Related Data Home Medications Medication Instructions Recorded Confirmed chlordiazepoxide HCl 25 mg capsule See Rx Instructions .Route 11/11/22 09/03/23 .COMPLEX PRN #25 caps meclizine 25 mg tablet 25 mg PO BID PRN #7 tabs 01/17/23 09/03/23 meclizine 25 mg chewable tablet 25 mg PO BID #20 tabs 04/17/23 09/03/23 (Antivert) Previous Rx's Medication Instructions Recorded chlordiazepoxide HCl 25 mg capsule See Rx Instructions .Route 11/11/22 .COMPLEX PRN #25 caps meclizine 25 mg tablet 25 mg PO BID PRN #7 tabs 01/17/23 meclizine 25 mg chewable tablet 25 mg PO BID #20 tabs 04/17/23 (Antivert) Allergies Allergy/AdvReac Type Severity Reaction Status Date / Time No Known Allergies Allergy Unverified 09/03/23 09:15 [facility] All Active Problems (Updated 09/03/23 @ 17:38 by Joesph Rubio MD) Discharge planning issues (Acute) DVT prophylaxis (Acute) Hypomagnesemia (Acute) Trochanteric bursitis, right hip (Acute) Avascular necrosis of bone of left hip (Acute) Chest pain (Acute) due to ETOH Hepatic steatosis (Acute) COVID-19 ruled out (Acute) Tobacco abuse (Acute) Impairment of balance (Acute) Chronic vertigo (Acute) Hypokalemia (Acute) Alcohol withdrawal (Acute) Electrolyte and fluid disorder (Acute) Medical History Alcoholism LAST DRINK WAS 2 WKS AGO Surgical History 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) Cyst of right upper eyelid Family History Maternal Grandfather Alcohol abuse Maternal Uncle Alcohol abuse Social History Smoking/Tobacco Use Status: Current every day Tobacco Type: cigarettes Smoking packs per day: 1 Smoking cigarettes per day: 20.0 Years smoked: 25 Smoking pack- years: 25.00 Smoking risk assessment performed?: Yes Alcohol Intake: current Alcohol Intake frequency: 3 or more drinks per day Alcohol type: beer and hard liquor Details: last drink was 2 weeks ago Drug use: Never Substance use type: does not use Housing: 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 Course Vital Signs Vital signs: Vital Signs Temperature 36.3 C L 09/03/23 08:24 Pulse 109 H 09/03/23 08:24 Respiratory Rate 22 09/03/23 08:24 Pulse Oximetry 100 09/03/23 08:24 Temperature 36.3 C L 09/03/23 08:24 Temperature Source Oral 09/03/23 08:24 Pulse 109 H 09/03/23 08:24 Respiratory Rate 22 09/03/23 08:24 Blood Pressure Position Sitting 09/03/23 08:24 Pulse Oximetry 100 09/03/23 08:24 Oxygen Delivery Method Room Air 09/03/23 08:24 Oxygen Flow Rate 0 09/03/23 08:24 Medical Decision Making Quality:SDOH Health Related Social Needs: Health related social needs risk of homeless, inadequa te housing, material hardship, food insecurity, transpo insecurity Critical Care Time Critical Care Time Critical Care Time: Yes Total Critical Care Time: 45 Attestation: Bedside assessment monitoring of alcohol withdrawal and correction of electrolyte derangements. Discharge Plan Disposition Patient Disposition: Admit to [facility] Discharge Details Clinical Impression: Alcohol withdrawal, Hypokalemia, Hypomagnesemia Admit Date/Time: 09/03/23 09:58 Admit Provider: Joesph Rubio Attending Provider: Joesph Rubio Primary Care Provider: OWEN GARRISON ED Provider: Aguilar Lange Discharge Data Discharge Date/Time-TO BE ENTERED AT DEPARTURE: 09/03/23 14:17 POCUS Exam (ED) Limited Cardiac Exam DATE OF EXAM: 09/03/23 TIME OF EXAM: 08:58 PROVIDER THAT PERFORMED THE STUDY: Aguilar Lange IS THIS A REPEAT EXAM DURING THIS ENCOUNTER: no REASON FOR EXAM: Chest pain VISUALIZED STRUCTURES: Four Chambers, Left ventricle and LVOT VIEW OBTAINED: Apical 4-Chamber, Parasternal long-axis and Subxiphoid PERTINENT FINDINGS/IMPRESSION: Other Aortic outflow track less than 4 cm, good squeeze, no significant pericardial effusion, RV less than LV ; No LV dysfunction and No pericardial effusion INCIDENTAL FINDINGS: Aortic outflow track less than 4 cm, good squeeze, no significant pericardial effusion, RV less than LV Exam complete
[2023-09-03 08:49] LABS: Abs Immature Grans 0.04 10^3/uL (0.0-0.06); Absolute Basophil Count 0.08 10^3/uL (0.0-0.2); Absolute Eosinophil Count 0.06 10^3/uL (0.0-0.7); Absolute Lymphocyte Count 2.16 10^3/uL (1.2-3.4); Absolute Monocyte Count 1.09 10^3/uL (0.1-0.8); Absolute Neutrophil Count 4.74 10^3/uL (1.2-6.7); Eosinophils % 0.7; HCT 39.2 % (40.0-50.0); HGB 14.2 g/dL (13.5-17.5); Immature Grans % 0.5; Lymphocytes % 26.4; MCH 34.5 pg (27.0-33.0); MCHC 36.2 % (32.0-36.0); MCV 95 fL (80-95); MPV 9.1 fL (8.0-11.0); Monocytes % 13.3; Neutrophils % 58.1; Platelet Count 210 10^3/uL (130-400); RBC 4.11 10^6/uL (4.36-5.78); RDW 12.3 % (11.8-14.1); RDW-SD 43.1 fL; WBC 8.17 10^3/uL (4.4-10.8)
[2023-09-03] MEDS: Ondansetron 4 MG/2 ML VIAL IVP (08:49)
[2023-09-03] MEDS: Normal Saline 500 ML IV ×2 (08:50→10:42)
--- NOTE | 2023-09-03 08:52 | DI.RAD_ITS ---
Exam(s) XR PORTABLE CHEST AP EXAM: XR PORTABLE CHEST AP CLINICAL HISTORY: Shortness of breath. TECHNIQUE: 2D digital imaging was performed. COMPARISON: CR,XR XR CHEST 2V PA LATERAL from 02/24/2023 FINDINGS: Single AP portable view. Heart size is upper normal. The mediastinum is not widened. Lungs are clear. No infiltrates nor obvious pleural effusions. IMPRESSION: No acute pulmonary findings on this single AP portable view of the chest. DATA REPOSITORY: RADIATION DOSE DELIVERED:
--- NOTE | 2023-09-03 08:55 | DI.VRAD_ITS ---
PROCEDURE INFORMATION: Exam: XR Chest Exam date and time: 09/03/2023 8:46 AM Age: 48 years old Clinical indication: Shortness of breath TECHNIQUE: Imaging protocol: Radiologic exam of the chest. Views: 1 view. COMPARISON: CR XR CHEST 2V PA LATERAL 02/24/2023 8:15 PM FINDINGS: Lungs: No focal consolidation. Pleural spaces: No significant pleural fluid. No pneumothorax detected. Heart/Mediastinum: Heart size within normal range. No pulmonary vascular congestion. Bones/joints: No obvious acute abnormality. IMPRESSION: No acute cardiopulmonary abnormality detected on AP portable chest radiograph. Dictated and Authenticated by: Damien Carrion MD. Ordering:NARESH Sheikh MD
[2023-09-03 09:18] LABS: ALT 122 U/L (16-63); AST 184 U/L (15-37); Albumin 4.4 g/dL (3.4-5.0); Alkaline Phosphatase 85 U/L (46-116); Anion Gap 20.1 mmol/L (3-11); BUN 8 mg/dL (7-18); Bilirubin, Total 1.2 mg/dL (0.2-1.0); CO2 23.9 mmol/L (21.0-32.0); CREATININE 0.9 mg/dL (0.70-1.30); Calcium 11.4 mg/dL (8.5-10.1); Chloride 98 mmol/L (98-107); Creatine Kinase 651 U/L (39-308); ETHANOL BLOOD 48.1 mg/dL (<10); Estimated GFR 106.01 (mL/min/1.73m2); Glucose 124 mg/dL (74-106); Lipase 107 U/L (16-77); Magnesium 1.4 mg/dL (1.8-2.4); Sodium 142 mmol/L (136-145); Troponin I < 50 ng/L (< or =60)
[2023-09-03 09:26] LABS: Potassium 2.6 mmol/L (3.5-5.1)
[2023-09-03 09:28] LABS: D-Dimer 299 ng/mlFEU (<500)
[2023-09-03] MEDS: MAGNESIUM SULFATE 2 GM/50 ML BAG IVPB (09:43)
[2023-09-03] MEDS: POTASSIUM CHLORIDE 20 MEQ/100 ML BAG 50 MEQ IVPB (10:07)
[2023-09-03] MEDS: Potassium Bicarbonate/Cit AC 25 MEQ TABLET.EFF PO (10:33)
[2023-09-03 12:14] LABS: Troponin I < 50 ng/L (< or =60)
--- NOTE | 2023-09-03 14:20 | HPE_ITS ---
Date of service: 09/03/23 Time of Service: 14:20 Assessment and Plan Assessment and plan (1) Alcohol withdrawal: Status: Acute Assessment and plan: continue phenobarbital protocol, give banana bag tonight then switch to po supplements in the morning. Patient has indicated to me he is willing to try medications to decrease his cravings for alcohol and he would go to AA or to Dr. Heath's house for meetings to help him w/ his addiction. At present he is not showing any signs of hallucinations and seems rather calm now after couple of loading doses of phenobarbital Qualifiers: Complication of substance-induced condition: uncomplicated Qualified Code(s): F10.230 - Alcohol dependence with withdrawal, uncomplicated (2) Alcoholism: Assessment and plan: referral to addiction counselor and AA upon discharge. He is unlikely to go for any inpatient rehab as he has a dog at home he needs to care for. (3) Hypokalemia: Status: Acute Assessment and plan: continue po supplementation but if nauseated then will give intravenous replacement (4) Hypomagnesemia: Status: Acute Assessment and plan: po supplementation (5) DVT prophylaxis: Status: Acute Assessment and plan: enoxaparin SC (6) Discharge planning issues: Status: Acute Assessment and plan: referral to alcohol defensive line coach and AA upon discharge. consider Rx for acamprosate History of Present Illness History of Present Illness Chief Complaint: shortness of breath, dizziness, nauseated, acute alcohol withdrawal Narrative: 48 yr old male w/ hx of alcohol abuse who normally drinks about a gallon of vodka over a 3 day period who has had prior inpatient alcohol rehabilitation at [facility]. He says that he recently weaned himself down and was off alcohol until the past week when he started drinking heavily again. His last drink was 7 am today. His symptoms began last night around 9 pm when he noted dyspnea w/out chest pain, tremoulousness and dizziness and this morning has been nauseated w/ vomiting. Patient called EMS this morning and he was given an albuterol nebulizer for his dyspnea. He denies any hx of COPD or asthma but is a smoker of 1/2 pack per day for years. Patient denies any illicit drug use such as amphetamines, cocaine, or heroin. Evaluation in the E.D. included CXR, labs and EKG. EKG demonstrated sinus tachycardia at 106 bpm, no ischemic ST-T changes. CXR showed no acute pulmonary process. Labs showed low K 2.6, low Mg 1.4, elevated AG 20.1, elevated transaminases (AST 184, ALT, 122, normal alkaline phosphatase, mild elevated total bili 1.2. Troponin was negative x 2. CK elevated at 651. CBC no anemia, normal WBC and platelets. D-dimer was normal at 299. Blood alcohol was elevated at 48.1. Urine tox screen was not done. Treatment in the ED included iv fluids normal saline 500 mL x 2 boluses along w/ mag sulfate 2 gm IV, KCl 20 MEQ iv and 25 meq PO. He was given Zofran and started on phenobarbital protocol receiving a loading dose of 640 mg IV and another dose of 260 mg IV. Hospitalist service was requested to admit for treatment of acute alcohol withdrawal and electrolyte disturbances. Patient was admitted to the ICU d/t the requirements of higher doses of phenobarbital. Repeat BMP was obtained at 15:10 and his K is still low at 3.2 and Mg slightly low at 1.7. AG is rsolving at 12. Patient will receive oral potassium and magnesium replacement. Will recheck his CK. I have continued hydration x one more liter of D5LR. He will also get a banana bag of magnesium, thiamine, folic acid and MVS. Tomorrow he will go on oral vitamin supplementation. Review of Systems All systems reviewed & are unremarkable except as noted in HPI and below 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) Cyst of right upper eyelid Family History Maternal Grandfather Alcohol abuse Maternal Uncle Alcohol abuse Social History Smoking/Tobacco Use Status: Current every day Tobacco Type: cigarettes Smoking packs per day: 1 Smoking cigarettes per day: 20.0 Years smoked: 25 Smoking pack- years: 25.00 Smoking risk assessment performed?: Yes Alcohol Intake: current Alcohol Intake frequency: 3 or more drinks per day Alcohol type: beer and hard liquor Details: last drink was 2 weeks ago Drug use: Never Substance use type: does not use Housing: 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 Meds Allergies and Home Medications Allergies Allergy/AdvReac Type Severity Reaction Status Date / Time No Known Allergies Allergy Unverified 09/03/23 09:15 Home Medications Medication Instructions Recorded Confirmed Type chlordiazepoxide HCl 25 mg capsule See Rx Instructions .Route 11/11/22 09/03/23 Rx .COMPLEX PRN #25 caps meclizine 25 mg tablet 25 mg PO BID PRN #7 tabs 01/17/23 09/03/23 Rx meclizine 25 mg chewable tablet 25 mg PO BID #20 tabs 04/17/23 09/03/23 Rx (Antivert) Results Labs 09/03/23 08:40 09/03/23 15:10 Labs: Laboratory Results - last 24 hr 09/03/23 09/03/23 08:40 11:42 WBC 8.17 RBC 4.11 L Hgb 14.2 Hct 39.2 L MCV 95 MCH 34.5 H MCHC 36.2 H RDW 12.3 Plt Count 210 MPV 9.1 Immature Gran % 0.5 Neutrophils % 58.1 Lymphocytes % 26.4 Monocytes % 13.3 Eosinophils % 0.7 Basophils % 1.0 Nucleated RBC % 0.0 Absolute Neutrophils 4.74 Absolute Lymphocytes 2.16 Absolute Monocytes 1.09 H Absolute Eosinophils 0.06 Absolute Basophils 0.08 D-Dimer 299 Sodium 142 Potassium 2.6 L* Chloride 98 Carbon Dioxide 23.9 Anion Gap 20.1 H BUN 8 Creatinine 0.9 Est GFR (CKD-EPI 2020) 106.01 Glucose 124 H Calcium 11.4 H Magnesium 1.4 L Total Bilirubin 1.2 H AST 184 H ALT 122 H Alkaline Phosphatase 85 Creatine Kinase 651 H Troponin I < 50 < 50 Total Protein 9.0 H Albumin 4.4 Lipase 107 H Ethyl Alcohol 48.1 H Last Vital Signs Temp 36.3 C L 09/03/23 08:54 Pulse 79 09/03/23 14:01 Resp 19 09/03/23 14:01 BP 133/73 09/03/23 14:01 Pulse Ox 93 09/03/23 14:01 PAWSS Have you Been Recently Intoxicated or Drunk Within the Last 30 days?: Yes Have you Ever Experienced Previous Episodes of Alcohol Withdrawal?: Yes Have you ever Experienced Withdrawal Seizures?: Unable to Obtain Have you ever Experienced Delirium Tremens(DT)s?: No Have you ever undergone Alcohol Rehabilitation Treatment (i.e, inpt ot outpatient treatment programs)?: Yes Have you ever Experienced Blackouts?: Yes Have you ever Combined Alcohol with other Downers within the last 90 days?: No Have you ever Combined Alcohol with any other Substance of Abuse during the last 90 days?: No Positive Blood Alcohol level on Presentation? [PCS.BAL]: Unable to Obtain Evidence of Increased Autonomic Activity (i.e. HR>120, tremor, sweating, agitation, nausea)?: Yes Result: 5 Time Spent Time spent with Patient: 40-54 minutes Time was spent: preparing to see the patient(eg.review tests), obtaining and/or reviewing separately otained hiistory, ordering medications,tests, procedures, referring, communicating with other health child care development specialist, indepentently interpreting results, counseling the patient and care coordination
[2023-09-03 15:32] LABS: Anion Gap 12.3 mmol/L (3-11); BUN 6 mg/dL (7-18); CO2 26.7 mmol/L (21.0-32.0); CREATININE 0.7 mg/dL (0.70-1.30); Calcium 9.4 mg/dL (8.5-10.1); Chloride 99 mmol/L (98-107); Estimated GFR 114.37 (mL/min/1.73m2); Glucose 111 mg/dL (74-106); Magnesium 1.7 mg/dL (1.8-2.4); PHOSPHORUS 2.7 mg/dL (2.6-4.7); Potassium 3.2 mmol/L (3.5-5.1); Sodium 138 mmol/L (136-145)
[2023-09-03] MEDS: Enoxaparin 40 MG/0.4 ML SYR SC (16:07)
[2023-09-03] MEDS: MULTIVITAMIN 10 ML, THIAMINE 100 MG, FOLIC ACID 1 MG in DEXTROSE 5%-0.45% SALINE 1,000 ML 166.66 ML IV (16:24)
[2023-09-03] MEDS: Nicotine 21 MG/24 HR PATCH TD (16:36)
[2023-09-03 18:11] LABS: Lab Add On Test DONE
[2023-09-03 18:25] LABS: Creatine Kinase 480 U/L (39-308)
[2023-09-03] MEDS: Potassium Chloride 10 MEQ CAPCR 20 MEQ PO ×2 (18:37→21:54)
[2023-09-03] MEDS: Magnesium Oxide 400 MG TAB 800 MG PO (21:51)
[2023-09-03] MEDS: DEXTROSE 5%-LACTATED RINGERS 1,000 ML 150 ML IV (21:52)
[2023-09-03] MEDS: Normal Saline Flush 10 ML SYR IVP (21:52)
[2023-09-03 21:57] LABS: Bilirubin Negative (Negative); Blood Negative (Negative); Clarity Clear (Clear); Glucose Negative (Negative); Ketones Negative (Negative); Leukocyte Esterase Negative (Negative); Nitrite Negative (Negative)
[2023-09-03 22:09] LABS: *AMPHETAMINES SCREEN URINE Negative (Negative); *BARBITURATES SCREEN URINE Positive (Negative); *BENZODIAZEPINES SCREEN URINE Negative (Negative); Cannabinoids THC Negative (Negative); Cocaine Screen,Urine Negative (Negative); METHADONE URINE SCREEN Negative (Negative); OPIATES URINE SCREEN Negative (Negative)
[2023-09-03 22:11] LABS: Tricyclic Antidepressants Negative (Negative)
[2023-09-04] VITALS (95 sets, daily range): BP systolic 95–135; BP diastolic 67–94; PULSE 55–87; RESP 10–20; TEMP 35.7–37.5; O2SAT 91–99
[2023-09-04] MEDS: Mylanta Suspension 30 ML CUP PO (06:14)
--- NOTE | 2023-09-04 06:15 | RT.EKG_ITS ---
APPROVED REPORT Exam: Resting ECG Reason for Exam: Validation of cardiac rhythm Patient Location: I HR:64 bpm ECG Measurements Heart Rate 64 AXIS IN 160 P 0 QRSd 89 QRS 42 QT 440 T 53 QTc 454 Conclusion Sinus rhythm...normal P axis, V-rate 50- 99 I have reviewed and interpreted ECG and agree with software generated interpretation.
[2023-09-04 06:30] LABS: Abs Immature Grans 0.02 10^3/uL (0.0-0.06); Absolute Basophil Count 0.04 10^3/uL (0.0-0.2); Absolute Eosinophil Count 0.11 10^3/uL (0.0-0.7); Absolute Lymphocyte Count 2.61 10^3/uL (1.2-3.4); Absolute Monocyte Count 0.56 10^3/uL (0.1-0.8); Basophils % 0.7; HCT 33.6 % (40.0-50.0); HGB 11.8 g/dL (13.5-17.5); Immature Grans % 0.4; Lymphocytes % 46.3; MCH 34.4 pg (27.0-33.0); MCHC 35.1 % (32.0-36.0); MCV 98 fL (80-95); MPV 10.2 fL (8.0-11.0); Monocytes % 9.9; Neutrophils % 40.7; Platelet Count 151 10^3/uL (130-400); RBC 3.43 10^6/uL (4.36-5.78); RDW 12.6 % (11.8-14.1); RDW-SD 45.1 fL; WBC 5.64 10^3/uL (4.4-10.8)
[2023-09-04 07:01] LABS: ALT 72 U/L (16-63); AST 79 U/L (15-37); Albumin 3.2 g/dL (3.4-5.0); Alkaline Phosphatase 57 U/L (46-116); Anion Gap 9.2 mmol/L (3-11); BUN 1 mg/dL (7-18); Bilirubin, Direct 0.3 mg/dL (0.0-0.2); Bilirubin, Total 1.1 mg/dL (0.2-1.0); CO2 27.8 mmol/L (21.0-32.0); CREATININE 0.5 mg/dL (0.70-1.30); Calcium 9.2 mg/dL (8.5-10.1); Chloride 100 mmol/L (98-107); Creatine Kinase 361 U/L (39-308); Glucose 106 mg/dL (74-106); Magnesium 1.7 mg/dL (1.8-2.4); Potassium 3.3 mmol/L (3.5-5.1); Sodium 137 mmol/L (136-145); Total Protein 6.8 g/dL (6.4-8.2); Troponin I < 50 ng/L (< or =60)
--- NOTE | 2023-09-04 07:45 | RT.EKG_ITS ---
APPROVED REPORT Exam: Resting ECG Reason for Exam: Chest Pain Patient Location: I HR:66 bpm ECG Measurements Heart Rate 66 AXIS SC 161 P -8 QRSd 91 QRS 36 QT 475 T 49 QTc 498 Conclusion Sinus rhythm...normal P axis, V-rate 50- 99 Borderline prolonged QT interval...QTc >475mS Normal Electrocardiogram I have reviewed and interpreted ECG and agree with software generated interpretation.
[2023-09-04] MEDS: Normal Saline Flush 10 ML SYR IVP ×2 (08:30→19:52)
[2023-09-04] MEDS: Potassium Chloride 10 MEQ CAPCR 20 MEQ PO ×2 (08:31→14:34)
[2023-09-04] MEDS: Folic Acid 1 MG TAB PO (08:31)
[2023-09-04] MEDS: Multivitamin TAB 1 TAB PO (08:31)
[2023-09-04] MEDS: Magnesium Oxide 400 MG TAB 800 MG PO ×2 (08:31→19:51)
[2023-09-04] MEDS: Thiamine 100 MG TAB PO (08:32)
--- NOTE | 2023-09-04 09:23 | W.PM.PROGNOT ---
Date of Service Date of service: 09/04/23 Time of Service: 09:24 Assessment and Plan Assessment and plan (1) Alcohol withdrawal: Status: Acute Assessment and plan: -Initially received loading dose of phenobarbital and a few doses of IV -Last dose of phenobarbital was p.o. 100 mg at around 2200 on the evening of 09/03/2023 -Will continue as needed p.o. phenobarbital -Patient plans to speak with recovery agent today Qualifiers: Complication of substance-induced condition: uncomplicated Qualified Code(s): F10.230 - Alcohol dependence with withdrawal, uncomplicated (2) Alcoholism: Assessment and plan: -referral to addiction counselor and AA upon discharge. He is unlikely to go for any inpatient rehab as he has a dog at home he needs to care for. (3) Hypokalemia: Status: Acute Assessment and plan: -continue po supplementation but if nauseated then will give intravenous replacement (4) Hypomagnesemia: Status: Acute Assessment and plan: -po supplementation (5) DVT prophylaxis: Status: Acute Assessment and plan: -enoxaparin SC Subjective Subjective Interval history since last seen: Patient states that he is feeling better today but is feeling weak and having trouble ambulating. Exam Narrative Exam Narrative: Well-appearing gentleman sitting up at the edge of the bed in no acute distress, ANO x 4, heart regular rate rhythm, lungs clear to auscultation bilaterally, abdomen soft, nontender, nondistended, doesnt appear anxious Objective Last Vital Signs Temp 99.5 F 09/04/23 07:52 Pulse 87 09/04/23 07:52 Resp 20 09/04/23 07:52 BP 117/82 09/04/23 07:01 Pulse Ox 95 09/04/23 07:52 Laboratory Results - last 24 hr 09/03/23 09/03/23 09/03/23 08:40 11:42 15:10 WBC RBC Hgb Hct MCV MCH MCHC RDW Plt Count MPV Immature Gran % Neutrophils % Lymphocytes % Monocytes % Eosinophils % Basophils % Nucleated RBC % Absolute Neutrophils Absolute Lymphocytes Absolute Monocytes Absolute Eosinophils Absolute Basophils D-Dimer 299 Sodium 142 138 Potassium 2.6 L* 3.2 L Chloride 98 99 Carbon Dioxide 23.9 26.7 Anion Gap 20.1 H 12.3 H BUN 8 6 L Creatinine 0.9 0.7 Est GFR (CKD-EPI 2020) 106.01 114.37 Glucose 124 H 111 H Calcium 11.4 H 9.4 Phosphorus 2.7 Magnesium 1.4 L 1.7 L Total Bilirubin 1.2 H Conjugated Bilirubin AST 184 H ALT 122 H Alkaline Phosphatase 85 Creatine Kinase 651 H 480 H Troponin I < 50 < 50 Total Protein 9.0 H Albumin 4.4 Lipase 107 H Urine Color Urine Clarity Urine pH Ur Specific [place] Urine Protein Urine Ketones Urine Blood Urine Nitrite Urine Bilirubin Urine Urobilinogen Ur Leukocyte Esterase Urine Glucose Urine Opiates Screen Urine Methadone Screen Ur Barbiturates Screen Ur Tricyclics Screen Ur Amphetamines Screen U Benzodiazepines Scrn Urine Cocaine Screen Ur THC Screen Ethyl Alcohol 48.1 H Add-On Test Request DONE 09/03/23 09/04/23 09/04/23 20:20 05:44 05:44 WBC 5.64 RBC 3.43 L Hgb 11.8 L D Hct 33.6 L MCV 98 H MCH 34.4 H MCHC 35.1 RDW 12.6 Plt Count 151 MPV 10.2 Immature Gran % 0.4 Neutrophils % 40.7 Lymphocytes % 46.3 Monocytes % 9.9 Eosinophils % 2.0 Basophils % 0.7 Nucleated RBC % 0.0 Absolute Neutrophils 2.30 Absolute Lymphocytes 2.61 Absolute Monocytes 0.56 Absolute Eosinophils 0.11 Absolute Basophils 0.04 D-Dimer Sodium 137 Cancelled Potassium 3.3 L Chloride Carbon Dioxide Anion Gap BUN Creatinine Est GFR (CKD-EPI 2020) Glucose Calcium Phosphorus Magnesium Total Bilirubin Conjugated Bilirubin AST ALT Alkaline Phosphatase Creatine Kinase Troponin I Total Protein Albumin Lipase Urine Color Yellow Urine Clarity Clear Urine pH 7.0 Ur Specific [place] 1.020 Urine Protein Negative Urine Ketones Negative Urine Blood Negative Urine Nitrite Negative Urine Bilirubin Negative Urine Urobilinogen 2.0 H Ur Leukocyte Esterase Negative Urine Glucose Negative Urine Opiates Screen Negative Urine Methadone Screen Negative Ur Barbiturates Screen Positive A Ur Tricyclics Screen Negative Ur Amphetamines Screen Negative U Benzodiazepines Scrn Negative Urine Cocaine Screen Negative Ur THC Screen Negative Ethyl Alcohol Add-On Test Request 09/04/23 09/04/23 09/04/23 05:44 05:44 05:44 WBC RBC Hgb Hct MCV MCH MCHC RDW Plt Count MPV Immature Gran % Neutrophils % Lymphocytes % Monocytes % Eosinophils % Basophils % Nucleated RBC % Absolute Neutrophils Absolute Lymphocytes Absolute Monocytes Absolute Eosinophils Absolute Basophils D-Dimer Sodium Potassium Cancelled Chloride 100 Cancelled Carbon Dioxide 27.8 Cancelled Anion Gap 9.2 BUN Creatinine Est GFR (CKD-EPI 2020) Glucose Calcium Phosphorus Magnesium Total Bilirubin Conjugated Bilirubin AST ALT Alkaline Phosphatase Creatine Kinase Troponin I Total Protein Albumin Lipase Urine Color Urine Clarity Urine pH Ur Specific [place] Urine Protein Urine Ketones Urine Blood Urine Nitrite Urine Bilirubin Urine Urobilinogen Ur Leukocyte Esterase Urine Glucose Urine Opiates Screen Urine Methadone Screen Ur Barbiturates Screen Ur Tricyclics Screen Ur Amphetamines Screen U Benzodiazepines Scrn Urine Cocaine Screen Ur THC Screen Ethyl Alcohol Add-On Test Request 09/04/23 09/04/23 09/04/23 05:44 05:44 05:44 WBC RBC Hgb Hct MCV MCH MCHC RDW Plt Count MPV Immature Gran % Neutrophils % Lymphocytes % Monocytes % Eosinophils % Basophils % Nucleated RBC % Absolute Neutrophils Absolute Lymphocytes Absolute Monocytes Absolute Eosinophils Absolute Basophils D-Dimer Sodium Potassium Chloride Carbon Dioxide Anion Gap Cancelled BUN 1 L Cancelled Creatinine 0.5 L Cancelled Est GFR (CKD-EPI 2020) 126.60 Glucose Calcium Phosphorus Magnesium Total Bilirubin Conjugated Bilirubin AST ALT Alkaline Phosphatase Creatine Kinase Troponin I Total Protein Albumin Lipase Urine Color Urine Clarity Urine pH Ur Specific [place] Urine Protein Urine Ketones Urine Blood Urine Nitrite Urine Bilirubin Urine Urobilinogen Ur Leukocyte Esterase Urine Glucose Urine Opiates Screen Urine Methadone Screen Ur Barbiturates Screen Ur Tricyclics Screen Ur Amphetamines Screen U Benzodiazepines Scrn Urine Cocaine Screen Ur THC Screen Ethyl Alcohol Add-On Test Request 09/04/23 09/04/23 09/04/23 05:44 05:44 05:44 WBC RBC Hgb Hct MCV MCH MCHC RDW Plt Count MPV Immature Gran % Neutrophils % Lymphocytes % Monocytes % Eosinophils % Basophils % Nucleated RBC % Absolute Neutrophils Absolute Lymphocytes Absolute Monocytes Absolute Eosinophils Absolute Basophils D-Dimer Sodium Potassium Chloride Carbon Dioxide Anion Gap BUN Creatinine Est GFR (CKD-EPI 2020) Cancelled Glucose 106 Cancelled Calcium 9.2 Cancelled Phosphorus Magnesium 1.7 L Total Bilirubin 1.1 H Conjugated Bilirubin AST ALT Alkaline Phosphatase Creatine Kinase Troponin I Total Protein Albumin Lipase Urine Color Urine Clarity Urine pH Ur Specific [place] Urine Protein Urine Ketones Urine Blood Urine Nitrite Urine Bilirubin Urine Urobilinogen Ur Leukocyte Esterase Urine Glucose Urine Opiates Screen Urine Methadone Screen Ur Barbiturates Screen Ur Tricyclics Screen Ur Amphetamines Screen U Benzodiazepines Scrn Urine Cocaine Screen Ur THC Screen Ethyl Alcohol Add-On Test Request 09/04/23 09/04/23 09/04/23 05:44 05:44 05:44 WBC RBC Hgb Hct MCV MCH MCHC RDW Plt Count MPV Immature Gran % Neutrophils % Lymphocytes % Monocytes % Eosinophils % Basophils % Nucleated RBC % Absolute Neutrophils Absolute Lymphocytes Absolute Monocytes Absolute Eosinophils Absolute Basophils D-Dimer Sodium Potassium Chloride Carbon Dioxide Anion Gap BUN Creatinine Est GFR (CKD-EPI 2020) Glucose Calcium Phosphorus Magnesium Total Bilirubin Cancelled Conjugated Bilirubin 0.3 H AST 79 H Cancelled ALT 72 H Cancelled Alkaline Phosphatase 57 Creatine Kinase Troponin I Total Protein Albumin Lipase Urine Color Urine Clarity Urine pH Ur Specific [place] Urine Protein Urine Ketones Urine Blood Urine Nitrite Urine Bilirubin Urine Urobilinogen Ur Leukocyte Esterase Urine Glucose Urine Opiates Screen Urine Methadone Screen Ur Barbiturates Screen Ur Tricyclics Screen Ur Amphetamines Screen U Benzodiazepines Scrn Urine Cocaine Screen Ur THC Screen Ethyl Alcohol Add-On Test Request 09/04/23 09/04/23 09/04/23 05:44 05:44 05:44 WBC RBC Hgb Hct MCV MCH MCHC RDW Plt Count MPV Immature Gran % Neutrophils % Lymphocytes % Monocytes % Eosinophils % Basophils % Nucleated RBC % Absolute Neutrophils Absolute Lymphocytes Absolute Monocytes Absolute Eosinophils Absolute Basophils D-Dimer Sodium Potassium Chloride Carbon Dioxide Anion Gap BUN Creatinine Est GFR (CKD-EPI 2020) Glucose Calcium Phosphorus Magnesium Total Bilirubin Conjugated Bilirubin AST ALT Alkaline Phosphatase Cancelled Creatine Kinase 361 H Cancelled Troponin I < 50 Cancelled Total Protein 6.8 Albumin Lipase Urine Color Urine Clarity Urine pH Ur Specific [place] Urine Protein Urine Ketones Urine Blood Urine Nitrite Urine Bilirubin Urine Urobilinogen Ur Leukocyte Esterase Urine Glucose Urine Opiates Screen Urine Methadone Screen Ur Barbiturates Screen Ur Tricyclics Screen Ur Amphetamines Screen U Benzodiazepines Scrn Urine Cocaine Screen Ur THC Screen Ethyl Alcohol Add-On Test Request 09/04/23 09/04/23 05:44 05:44 WBC RBC Hgb Hct MCV MCH MCHC RDW Plt Count MPV Immature Gran % Neutrophils % Lymphocytes % Monocytes % Eosinophils % Basophils % Nucleated RBC % Absolute Neutrophils Absolute Lymphocytes Absolute Monocytes Absolute Eosinophils Absolute Basophils D-Dimer Sodium Potassium Chloride Carbon Dioxide Anion Gap BUN Creatinine Est GFR (CKD-EPI 2020) Glucose Calcium Phosphorus Magnesium Total Bilirubin Conjugated Bilirubin AST ALT Alkaline Phosphatase Creatine Kinase Troponin I Total Protein Cancelled Albumin 3.2 L Cancelled Lipase Urine Color Urine Clarity Urine pH Ur Specific [place] Urine Protein Urine Ketones Urine Blood Urine Nitrite Urine Bilirubin Urine Urobilinogen Ur Leukocyte Esterase Urine Glucose Urine Opiates Screen Urine Methadone Screen Ur Barbiturates Screen Ur Tricyclics Screen Ur Amphetamines Screen U Benzodiazepines Scrn Urine Cocaine Screen Ur THC Screen Ethyl Alcohol Add-On Test Request PAWSS Have you Been Recently Intoxicated or Drunk Within the Last 30 days?: Yes Have you Ever Experienced Previous Episodes of Alcohol Withdrawal?: Yes Have you ever Experienced Withdrawal Seizures?: No Have you ever Experienced Delirium Tremens(DT)s?: Yes Have you ever undergone Alcohol Rehabilitation Treatment (i.e, inpt ot outpatient treatment programs)?: Yes Have you ever Experienced Blackouts?: Yes Have you ever Combined Alcohol with other Downers within the last 90 days?: No Have you ever Combined Alcohol with any other Substance of Abuse during the last 90 days?: No Positive Blood Alcohol level on Presentation? [PCS.BAL]: Yes Evidence of Increased Autonomic Activity (i.e. HR>120, tremor, sweating, agitation, nausea)?: Yes Result: 7 Time Spent with Patient Time Spent with Patient: >50 minutes Time was spent: preparing to see the patient(eg.review tests), obtaining and/or reviewing separately otained hiistory, ordering medications,tests, procedures, referring, communicating with other health progressive care nurse, indepentently interpreting results, counseling the patient and care coordination
--- NOTE | 2023-09-04 09:34 | NUR.NOTE ---
Accessed pt chart to determine number of EKG orders for [facility] Nursing Note:
--- NOTE | 2023-09-04 11:22 | PHA.REVIEW2 ---
Pharmacy Admission Review Admission Clinical Review Admission Pharmacy Review: Discharge planning issues (Acute) DVT prophylaxis (Acute) Hypomagnesemia (Acute) Hypokalemia (Acute) Alcohol withdrawal (Acute) No Known Allergies Allergy (Unverified 09/03/23 09:15) Resuscitation Status Full Code Height 5 ft 7 in Weight 63.6 kg Comments Comments/Follow Ups: Watch phenobarb soft/hard stops Pharmacy Admission Review Renal Dosing Renal Dosing: BUN 1 mg/dL (7-18) L 09/04/23 05:44 BUN Cancelled 09/04/23 05:44 Creatinine 0.5 mg/dL (0.70-1.30) L 09/04/23 05:44 Creatinine Cancelled 09/04/23 05:44 Medications needing adjustments: Reviewed (CrCl 164 mL/min) Anticoagulation Anticoagulation: Hgb 11.8 g/dL (13.5-17.5) L D 09/04/23 05:44 Hct 33.6 % (40.0-50.0) L 09/04/23 05:44 Plt Count 151 10^3/uL (130-400) 09/04/23 05:44 Creatinine 0.5 mg/dL (0.70-1.30) L 09/04/23 05:44 Creatinine Cancelled 09/04/23 05:44 DVT Prophylaxis: Reviewed Medications: Enoxaparin (40mg q24h) Relevant Labs Relevant Labs: Sodium 137 mmol/L (136-145) 09/04/23 05:44 Sodium Cancelled 09/04/23 05:44 Potassium 3.3 mmol/L (3.5-5.1) L 09/04/23 05:44 Potassium Cancelled 09/04/23 05:44 Chloride 100 mmol/L (98-107) 09/04/23 05:44 Chloride Cancelled 09/04/23 05:44 Phosphorus 2.7 mg/dL (2.6-4.7) 09/03/23 15:10 Magnesium 1.7 mg/dL (1.8-2.4) L 09/04/23 05:44 Electrolytes, C-Reactive P, ESR: Reviewed (K 3.3 and Mg 1.7. Does have PO order for both supplements. AST/ALT decreased to 79/72.) Cardiac Review Cardiac Review: Troponin I < 50 ng/L (< or =60) 09/04/23 05:44 Troponin I Cancelled 09/04/23 05:44 BP, HR, EF%: Reviewed (BP WNL, HR 57) QTc Review QTc: Reviewed (498 09/02/22) IV to PO Switch IV Medications: Reviewed Home Meds Home Med List reviewed: Reviewed Current Meds Current Medication Order Review: Reviewed Comments: Phenobarbital for alcohol withdrawal: Soft stop: 9991.5mg Hard stop: 1322mg So far patient has received a total of 740mg. Last CIWA score was 4 at 1000 today. Comments Comments/Follow Ups: Watch phenobarb soft/hard stops
--- NOTE | 2023-09-04 14:35 | PDOC.CMIN ---
Date of service: 09/04/23 Time of Service: 13:03 Care Management Initial Assmt Initial Assessment REASON FOR HOSPITALIZATION:: Acute alcohol withdrawal, hypokalemia, hypomagnesemia PREVIOUS FUNCTIONAL STATUS/SOCIAL/FAMILY SUPPORTS:: Resides in [place], [place] CURRENT FUNCTIONAL STATUS:: Paul remains in the ICU at this time, on phenobarb protocol for alcohol withdrawal, he has advocated for, and met with a disaster recovery specialist today, which was noted to be a positive interaction. CM continues to follow. ADVANCE DIRECTIVES:: None on file at [facility]. Has patient been provided with info about the portal/API?: Yes Did the patient sign up for the portal?: Yes CODE STATUS:: Full Code INSURANCE COVERAGE / FINANCIAL ISSUES:: Medicaid ` CURRENT HOME/COMMUNITY SERVICES/EQUIPMENT:: No current services at this time. PRIMARY CARE PHYSICIAN:: Kiana Monge POTENTIAL DISCHARGE NEEDS:: Follow up appointments. PATIENT/FAMILY EDUCATION NEEDS:: Review discharge instructions, discuss Ask Me Three. ANTICIPATED BARRIERS TO DISCHARGE:: None identified. TRANSPORTATION:: Via private vehicle with family. PLAN:: Paul will return home when ready per MD, he will follow up with his PCP and plan of care as prescribed. Paul connected with a disaster recovery specialist while at [facility] and will follow up with them, as well, post discharge. 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) Cyst of right upper eyelid Family History Maternal Grandfather Alcohol abuse Maternal Uncle Alcohol abuse Social History Smoking/Tobacco Use Status: Current every day Tobacco Type: cigarettes Smoking packs per day: 1 Smoking cigarettes per day: 20.0 Years smoked: 25 Smoking pack-years: 25.00 Smoking risk assessment performed?: Yes Alcohol Intake: current Alcohol Intake frequency: 3 or more drinks per day Alcohol type: beer and hard liquor Details: last drink was 2 weeks ago Drug use: Never Substance use type: does not use Housing: 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 SDOH(Care Management) Screening Will the Patient Participate in the Screening?: Yes Do you worry about having a steady place to live?: yes Problems where you live: mold In the past 12 months, have you had to go without electric, gas, oil or water in your home?: yes Have you or anyone in your house had to go without enough food to eat?: yes Has lack of transportation kept you from medical appointments or from doing things needed for daily living?: yes Has anyone in your support network made you feel unsafe for any reason?: no Health Related Social Needs Health related social needs: inadequate housing(Z59.1), housing instability, housed, with risk of homelessness(Z59.811), food insecurity(Z59.41), transportation insecurity(Z59.82) and material hardship(utilities)(Z59.87)
[2023-09-04] MEDS: Enoxaparin 40 MG/0.4 ML SYR SC (16:32)
[2023-09-05] VITALS (27 sets, daily range): BP systolic 90–131; BP diastolic 65–92; PULSE 57–116; RESP 11–20; TEMP 36.4–37.1; O2SAT 90–99
[2023-09-05 06:56] LABS: HCT 38.6 % (40.0-50.0); HGB 13.5 g/dL (13.5-17.5); MCH 34.4 pg (27.0-33.0); MCV 98 fL (80-95); MPV 10.8 fL (8.0-11.0); Platelet Count 167 10^3/uL (130-400); RBC 3.93 10^6/uL (4.36-5.78); RDW 12.1 % (11.8-14.1); WBC 6.05 10^3/uL (4.4-10.8)
[2023-09-05 07:04] LABS: Anion Gap 7.3 mmol/L (3-11); BUN 3 mg/dL (7-18); CO2 26.7 mmol/L (21.0-32.0); CREATININE 0.6 mg/dL (0.70-1.30); Chloride 99 mmol/L (98-107); Estimated GFR 119.82 (mL/min/1.73m2); Glucose 91 mg/dL (74-106); Sodium 133 mmol/L (136-145)
--- NOTE | 2023-09-05 10:06 | PT.INIE ---
PT Notes Visit Reasons: Acute alcohol withdrawl, hypokalemia, hypomagnesem Physical Therapy Inpatient Initial Evaluation Date: 09/05/2023 Referring Doctor: Gustavo Zuniga MD PT Orders: PT CONSULT: Eval/Treat Precautions: Activity as tolerated. Standard. Patient Profile/Admitting Diagnosis: Paul is a 48-year-old male with past medical history significant for EtOH abuse and withdrawal reportedly drank 3/2 gallons of vodka since last week up to [facility] he presented to the ED on 09/03/2023 due to shortness of breath and chest pain. Patient is admitted to the ICU for management of EtOH withdrawal, alcoholism, hiatal kalemia, and hypomagnesemia. 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 Independent with all aspects of ADLs prior to admission. Has participated to rehab efforts at [facility] and [facility] previously but admittedly started drinking again 1 and half years ago. 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 Agreeable to doing maneuvers to determine recurrence of his vertigo. reports pain in R knee which he has had for quite a while now. Has not had any falls in the past year. Onset: on and off since admission on 09/03/2023 Quality: Unable to keep up when he turns his head; spacey when he tries to turn and change the position of his head Duration: On and off since Monday morning; subsided Previous Episodes: Patient stated that when he drinks the spaciness subsides, when he does not it comes back, this has been goignon since one and a half years ago Exacerbating Factors: head turning Headache: None Neck ache: None Nausea/Vomitting: None Hearing Loss: None Tinnitus: None Fullness in Ear: Feels that his left side has a cork that pops out from time to time Imbalance: Mild with walking Red Flags: Visual changes: None Dysphagia or Dysarthria: None Facial Weakness: None Incoordination: Mild ataxia with ambulation Prior Level of Function: Independent with all ADLs Current Level of Function: Mildly cautious with movement but managed to walk with Nurse Yuridia for at least 250 feet Previous Treatment: BPPV treatment last March 2023 at [facility] with good resolution OBJECTIVE: Posture: Increased trunk flexion, TRACI somewhat wider Observation: slow guarded movements, with limited head motions during gait, transfers and bed mobility Mental Status: A and O x 4 Vital Signs: HR high of 122 bpm in sitting ROM: Cervical ROM: WFL Strength: Cervical muscle strength: 4/5 Bed Mobility/Transfers: Rolling modified independent Supine to sit modified independent Sit to supine modified independent Sit to stand modified independent Stand to sit modified independent Gait: Observed patient walked in hallway with Nurse Yuridia. Mild ataxia and report of unsteadiness that was minimized with use of FWW. Covered a distance of at least 250 feet. Minimal shortness of breath. Special Tests: [place]: Low amplitude R and L sway that did not cause an LOB Coordination: Mild ataxia with walking Fine Motor: Mildly impaired Visual Tracking: Intact smooth pursuit, lateral gaze a bit slower with return from R to midline Head Thrust: Negative [place]: Negative but felt spacey when he tried to sit up from supine for B L and R [place] Supine Roll Test: Negative but felt spacey when he tried to sit up from supine for B L and R [place] Balance: Static Sitting: Good Dynamic Sitting: Good Static Standing: Good Dynamic Standing: Fair Special Tests: Mobility Limitations Standardized Measure [facility] AM-PAC 6 clicks Basic Mobility Inpatient Short Form: Raw Score: 23 CMS Score: 11% deficit Informed Consent/Education: Patient was instructed in purpose of PT consult and plan of care. Agreeable to proceed with performance of recommended exercises below. Patient was provided with copy of same exercises for improved compliance at home. NEURO RE-ED: -Gaze stabilization exercises with good response. -Habituation exercises. Copy provided as well. ASSESSMENT: Symptoms may be due to effect of alcoholism this time with negatived [place] and Supine head roll test done today. Patient will however benefit with gaze stabilization and habituation exercises as well as continued ambulation training on level surface and on stairs. Patient presents with clinical signs and symptoms consistent with current/admitting diagnoses that have resulted to mobility limitations, gait instability, generalized weakness, and overall ADL decline as demonstrated by the following impairment level findings: 1. Impaired sitting/standing balance 2. Impaired activity tolerance 3. Sensation of being spacey Impairments are contributing to the following functional limitations: 1. Increased completion time for mobility ADL performance 2. Increased risk for falls Patient is assessed as a [id number] low complexity based on the following: History: 86-year-old male with past medical history as indicated above Examination: Demonstrable impairment above Presentation: Evolving Decision Makin low complexity Goals: Patient will demonstrate independent ambulation with FWW for 600 feet with no symptoms with no SOB and LOB Plan of Care/Treatment Plan: Continue training with level surface ambulation, stairs, and vestibular rehabilitation to reduce fall risk. DISCHARGE RECOMMENDATIONS: [] Home with no services [X] Home with services. Patient will benefit from home health PT services in order to progress mobility level using least restrictive assistive ambulatory device, assess home safety, identify additional equipment needs, and establish a functional maintenance program that will increase ability of patient to remain at home. 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 [] SNF for continued rehabilitation [] [] [facility] [] [] SNF versus LTC based on ability to participate and progress [] TREATMENT CODE/TIME: 31438 x 15 minutes for 1 unit, 92084 x 27 minutes for 2 unit beginning at 10:06 AM. Thank you for the opportunity to participate in the care of this patient. Carey Trevino PT, DPT, CLT [facility] [place], [place]
[2023-09-05] MEDS: Thiamine 100 MG TAB PO (10:56)
[2023-09-05] MEDS: Magnesium Oxide 400 MG TAB 800 MG PO ×2 (10:56→20:08)
[2023-09-05] MEDS: Multivitamin TAB 1 TAB PO (10:56)
[2023-09-05] MEDS: Normal Saline Flush 10 ML SYR IVP ×2 (10:57→20:08)
[2023-09-05] MEDS: Folic Acid 1 MG TAB PO (10:57)
[2023-09-05] MEDS: Pantoprazole 40 MG TABCR PO (10:59)
--- NOTE | 2023-09-05 14:51 | PGE_ITS ---
Date of Service Date of service: 09/05/23 Time of Service: 14:51 Assessment and Plan Assessment and plan (1) Alcohol withdrawal: Status: Acute Assessment and plan: -Initially received loading dose of phenobarbital and a few doses of IV -Last dose of phenobarbital was p.o. 100 mg at around 2200 on the evening of 09/03/2023 -Will continue as needed p.o. phenobarbital -Patient spoke with aircraft launch and recovery technician on 09/04/2023 Qualifiers: Complication of substance-induced condition: uncomplicated Qualified Code(s): F10.230 - Alcohol dependence with withdrawal, uncomplicated (2) Alcoholism: Assessment and plan: -referral to addiction counselor and AA upon discharge. He is unlikely to go for any inpatient rehab as he has a dog at home he needs to care for. (3) Hypokalemia: Status: Acute Assessment and plan: -continue po supplementation but if nauseated then will give intravenous replacement (4) Hypomagnesemia: Status: Acute Assessment and plan: -po supplementation (5) DVT prophylaxis: Status: Acute Assessment and plan: -enoxaparin SC Subjective Subjective Interval history since last seen: Patient states that he is feeling better today and has regained some of his strength after walking with nursing staff and PT, however he has not regained enough strength to successfully climbing of stairs to be able to go home therefore he will remain hospitalized for an additional night while he continues to work on his strength with nursing staff and physical therapy Exam Narrative Exam Narrative: Well-appearing gentleman sitting up at the edge of the bed in no acute distress, ANO x 4, heart regular rate rhythm, lungs clear to auscultation bilaterally, abdomen soft, nontender, nondistended, doesnt appear anxious Objective Last Vital Signs Temp 98.8 F 09/05/23 12:30 Pulse 77 09/05/23 12:30 Resp 20 09/05/23 12:30 BP 124/92 H 09/05/23 09:34 Pulse Ox 95 09/05/23 12:30 Laboratory Results - last 24 hr 09/05/23 05:49 WBC 6.05 RBC 3.93 L Hgb 13.5 Hct 38.6 L MCV 98 H MCH 34.4 H MCHC 35.0 RDW 12.1 Plt Count 167 MPV 10.8 Sodium 133 L Potassium 4.0 Chloride 99 Carbon Dioxide 26.7 Anion Gap 7.3 BUN 3 L Creatinine 0.6 L Est GFR (CKD-EPI 2020) 119.82 Glucose 91 Calcium 10.0 PAWSS Have you Been Recently Intoxicated or Drunk Within the Last 30 days?: Yes Have you Ever Experienced Previous Episodes of Alcohol Withdrawal?: Yes Have you ever Experienced Withdrawal Seizures?: No Have you ever Experienced Delirium Tremens(DT)s?: Yes Have you ever undergone Alcohol Rehabilitation Treatment (i.e, inpt ot outpatient treatment programs)?: Yes Have you ever Experienced Blackouts?: Yes Have you ever Combined Alcohol with other Downers within the last 90 days?: No Have you ever Combined Alcohol with any other Substance of Abuse during the last 90 days?: No Positive Blood Alcohol level on Presentation? [PCS.BAL]: Yes Evidence of Increased Autonomic Activity (i.e. HR>120, tremor, sweating, agitation, nausea)?: Yes Result: 7 Time Spent with Patient Time Spent with Patient: >50 minutes Time was spent: preparing to see the patient(eg.review tests), obtaining and/or reviewing separately otained hiistory, ordering medications,tests, procedures, referring, communicating with other health career resource technician, indepentently interpreting results, counseling the patient and care coordination
--- NOTE | 2023-09-05 16:36 | PT.INTREAT ---
PT Notes Visit Reasons: Acute alcohol withdrawl, hypokalemia, hypomagnesem Physical Therapy Inpatient Treatment Note Date: 09/05/2023 Precautions: Activity as tolerated. Standard. Subjective: Agreeable to session. Dizziness diminishing. OBJECTIVE: Posture: Increased trunk flexion, TRACI somewhat wider Observation: slow guarded movements, with limited head motions during gait, transfers and bed mobility Mental Status: A and O x 4 Vital Signs: WFL Bed Mobility/Transfers: Rolling modified independent Supine to sit modified independent Sit to supine modified independent Sit to stand modified independent Stand to sit modified independent Gait: Observed patient walked in hallway with Nurse Yuridia covering a distance of about 600 feet using FWW. Mild ataxia and report of unsteadiness that was minimized with use of FWW. Minimal shortness of breath. Trialled SPC for 15 feet x 2 but appeared more unsteady. Stairs: 12 x 4-inch steps and 8 x 6-inch steps holding onto 1 rail and using SPC needing moderate verbal cueing for limb sequence and overall safety. No LOB. MInimal shortness of breath. Contact guard assist needed. Balance: Static Sitting: Good Dynamic Sitting: Good Static Standing: Good Dynamic Standing: Fair NEURO RE-ED: -Gaze stabilization exercises with good response. -Habituation exercises. Copy provided as well. Access Code: [email or web address] URL: [email or web address] Date: 09/05/2023 Prepared by: Carey Trevino Exercises - Seated Gaze Stabilization with Head Rotation - 1 x daily - 7 x weekly - 1 sets - 10 reps - 5 hold - Seated Gaze Stabilization with Head Nod - 1 x daily - 7 x weekly - 1 sets - 10 reps - 5 hold - Seated Vertical Saccades - 1 x daily - 7 x weekly - 1 sets - 10 reps - 5 hold - Walking Gaze Stabilization Head Rotation with Horizontal Arm Movement - 1 x daily - 7 x weekly - 1 sets - 10 reps - 5 hold - Walking Gaze Stabilization Head Nod - 1 x daily - 7 x weekly - 1 sets - 10 reps - 5 hold - Walking with Head Rotation - 1 x daily - 7 x weekly - 1 sets - 10 reps - 5 hold - Seated to Fold Over Vestibular Habituation - 1 x daily - 7 x weekly - 1 sets - 10 reps - 5 hold - Seated Nose to Left Knee Vestibular Habituation - 1 x daily - 7 x weekly - 1 sets - 10 reps - 5 hold - Seated Nose to Right Knee Vestibular Habituation - 1 x daily - 7 x weekly - 1 sets - 10 reps - 5 hold - Vestibular Habituation - Seated Horizontal Head Rotation - 1 x daily - 7 x weekly - 1 sets - 10 reps - 5 hold ASSESSMENT: Able to tolerate habituation exercises in sitting but with mild difficulty in standing. Will continue to see patient tomorrow before discharge to maximize vestibular awareness that will reduce fall risk. Will benefit from use of FWW at home. Plan of Care/Treatment Plan: Continue training with level surface ambulation, stairs, and vestibular rehabilitation to reduce fall risk. DISCHARGE RECOMMENDATIONS: [] Home with no services [X] Home with services. Patient will benefit from home health PT services in order to progress mobility level using least restrictive assistive ambulatory device, assess home safety, identify additional equipment needs, and establish a functional maintenance program that will increase ability of patient to remain at home. 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 [] SNF for continued rehabilitation [] [] Shelter Care [] [] SNF versus LTC based on ability to participate and progress [] TREATMENT CODE/TIME: 49725 x 25 minutes for 2 units beginning at 13:32 and 16:36 PM.
[2023-09-05] MEDS: Enoxaparin 40 MG/0.4 ML SYR SC (16:47)
--- NOTE | 2023-09-05 17:03 | PDOC.CMPRO ---
Date of service: 09/05/23 Time of Service: 17:03 Care Management Progress Note Progress Note Text Progress Note Text: S/O: Paul remains in the ICU, he was sleeping when CM entered, discussion with BLANCO Shi who stated Paul's neighbor was taking care of his puppy while at [facility]. CM continues to follow. A: 48 year old admitted to [facility] 09/03/23 for acute withdrawal P: Paul will return home and follow up with his PCP and plan of care as prescribed, anticipate new home health orders for PT, strength and conditioning coach services will remain engaged as well. He will transport via private vehicle with a friend.
[2023-09-06] VITALS (17 sets, daily range): BP systolic 90–106; BP diastolic 68–79; PULSE 52–78; RESP 10–18; TEMP 36.5–37.2; O2SAT 90–98
[2023-09-06] MEDS: Magnesium Oxide 400 MG TAB 800 MG PO (07:47)
[2023-09-06] MEDS: Thiamine 100 MG TAB PO (07:47)
[2023-09-06] MEDS: Multivitamin TAB 1 TAB PO (07:48)
[2023-09-06] MEDS: Folic Acid 1 MG TAB PO (07:48)
[2023-09-06] MEDS: Pantoprazole 40 MG TABCR PO (07:48)
[2023-09-06] MEDS: Normal Saline Flush 10 ML SYR IVP (07:50)
--- NOTE | 2023-09-06 08:50 | DSE_ITS ---
Date of service: 09/06/23 Time of Service: 08:50 DS: Diagnosis Discharge Diagnosis (1) Alcohol withdrawal: Status: Acute Asessment and Plan: -Initially received loading dose of phenobarbital and a few doses of IV -Last dose of phenobarbital was p.o. 100 mg at around 2200 on the evening of 09/03/2023 -Will continue as needed p.o. phenobarbital -Patient spoke with data recovery planner on 09/04/2023 (2) Alcoholism: Asessment and Plan: -referral to addiction counselor and AA upon discharge. He is unlikely to go for any inpatient rehab as he has a dog at home he needs to care for. (3) Hypokalemia: Status: Acute Asessment and Plan: -resolved with repletion (4) Hypomagnesemia: Status: Acute Discharge Plan Disposition Patient Disposition: Home Condition: Good Discharge Details Reason For Visit: Acute alcohol withdrawl, hypokalemia, hypomagnesem Admit Date/Time: 09/03/23 09:58 Admit Provider: Joesph Rubio Attending Provider: Joesph Rubio Primary Care Provider: OWEN GARRISON Hospital Course Hospital Course: Patient came in with concerns for alcohol withdrawal. He did get IV loading dose of phenobarbital and a few subsequent as needed doses but has not needed it since around 10 PM on 09/04/2023. Since that time he has been working on his strength that he was profoundly weak. However, his ambulatory status is back to baseline and it was determined that he was stable for discharge Home Meds and New Rx's Prescriptions: New pantoprazole 40 mg Tablet,Delayed Release (Dr/Ec) 40 mg PO DAILY@0730 Qty: 90 0RF Discontinued chlordiazepoxide HCl 25 mg capsule See Rx Instructions .ROUTE .COMPLEX PRNQty: 25 0RF Rx Instructions: Day 1: 50mg q6 hours, Day 2: 25mg q6h Day 3: 25mg q12h Day 4: 25mg at night meclizine 25 mg tablet 25 mg PO BID PRNQty: 7 0RF meclizine [Antivert] 25 mg tablet,chewable 25 mg PO BID Qty: 20 0RF Discharge Instructions Instructions: Alcohol Withdrawal (DC), Alcohol Dependence (DC) Activity:: Activity as Tolerated Equipment/Supplies:: No Equipment Needed Diet:: As Tolerated Discharge Orders Discharge Orders: Discharge Order (Routine); Ordered 09/06/23 Ordered By: Gustavo Zuniga DS: Summary Time Spent with Patient providing and/or coordinating discharge services: Greater than 30 minutes Status at Discharge Functional status at discharge: independent ambulation Overall status at discharge: patient is back to baseline Mental Status: mental status grossly normal Speech and Movement: speech and movement normal Mood: congruent mood Affect: normal affect Quality:SDOH Health Related Social Needs: Health related social needs inadequate housing, risk o f homeless, food insecurity, transpo insecurity, material hardship Exam Narrative Exam Narrative: Well-appearing gentleman sitting up at the edge of the bed in no acute distress, ANO x 4, heart regular rate rhythm, lungs clear to auscultation bilaterally, abdomen soft, nontender, nondistended, doesnt appear anxious Psych Mental Status: mental status grossly normal Speech and Movement: speech and movement normal Mood: congruent mood Affect: normal affect DS: Data Vitals/I&O Vitals and I&O: Vital Signs Temperature 97.7 F 09/06/23 04:00 Temperature Source Temporal Artery Scan 09/05/23 20:14 Pulse 72 09/06/23 07:53 Pulse 78 09/06/23 07:52 Respiratory Rate 11 L 09/06/23 07:52 Respiratory Effort Normal 09/06/23 07:52 Respiratory Depth Normal 09/06/23 07:52 Respiratory Pattern Normal 09/06/23 07:52 Blood Pressure 106/77 09/06/23 07:53 Blood Pressure Mean 87 09/06/23 07:53 Blood Pressure Position Sitting 09/06/23 07:52 Pulse Oximetry 98 09/06/23 07:52 Oxygen Delivery Method Room Air 09/06/23 07:52 Oxygen Flow Rate 0 09/06/23 07:52 Pain Level 0 09/05/23 20:14 Intake & Output 09/05/23 09/06/23 09/06/23 17:59 05:59 17:59 Intake Total 1030 / 1030 420 / 420 Output Total 800 / 800 Balance 230 / 230 420 / 420 Weight 137 lb 5.568 oz Intake: Oral 1030 / 1030 420 / 420 Output: Urine 800 / 800 Other: Urine Color Yellow Yellow Urine Appearance Clear Clear Urine Odor None Stool Occult Blood Negative Stool Size Moderate Moderate Stool Characteristics Soft Soft Liquid Voiding Methods Bedside Commode 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) Cyst of right upper eyelid Family History Maternal Grandfather Alcohol abuse Maternal Uncle Alcohol abuse Social History Smoking/Tobacco Use Status: Current every day Tobacco Type: cigarettes Smoking packs per day: 1 Smoking cigarettes per day: 20.0 Years smoked: 25 Smoking pack- years: 25.00 Smoking risk assessment performed?: Yes Alcohol Intake: current Alcohol Intake frequency: 3 or more drinks per day Alcohol type: beer and hard liquor Details: last drink was 2 weeks ago Drug use: Never Substance use type: does not use Housing: 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 Time Spent with Patient Time Spent with Patient: <45 minutes Time was spent: preparing to see the patient(eg.review tests), obtaining and/or reviewing separately otained hiistory, ordering medications,tests, procedures, referring, communicating with other health care program director, indepentently interpreting results, counseling the patient and care coordination
--- NOTE | 2023-09-06 09:58 | PT.INDS ---
PT Notes Visit Reasons: Acute alcohol withdrawl, hypokalemia, hypomagnesem Physical Therapy Inpatient Discharge Summary Date: 09/06/2023 Precautions: Activity as tolerated. Standard. Subjective: Feels much better. Dizziness almost resolved. OBJECTIVE: Posture: Increased trunk flexion, TRACI somewhat wider Observation: Movement less cautious Mental Status: A and O x 4 Vital Signs: WNL ROM: Cervical ROM: WFL Strength: Cervical muscle strength: 4/5 Bed Mobility/Transfers: Rolling modified independent Supine to sit modified independent Sit to supine modified independent Sit to stand modified independent Stand to sit modified independent Gait: Observed patient walked in hallway with Nurse Yuridia. Mild ataxia and report of unsteadiness that was minimized with use of FWW. Covered a distance of at least 250 feet. Minimal shortness of breath. Balance: Static Sitting: Good Dynamic Sitting: Good Static Standing: Good Dynamic Standing: Fair Special Tests: Mobility Limitations Standardized Measure [facility] AM-PAC 6 clicks Basic Mobility Inpatient Short Form: Raw Score: 24 CMS Score: 0% deficit NEURO RE-ED: -Gaze stabilization exercises with good response. -Reviewed habituation exercises. Copy provided as well. Access Code: [email or web address] URL: [email or web address] Date: 09/05/2023 Prepared by: Carey Trevino Exercises - Seated Gaze Stabilization with Head Rotation - 1 x daily - 7 x weekly - 1 sets - 10 reps - 5 hold - Seated Gaze Stabilization with Head Nod - 1 x daily - 7 x weekly - 1 sets - 10 reps - 5 hold - Seated Vertical Saccades - 1 x daily - 7 x weekly - 1 sets - 10 reps - 5 hold - Walking Gaze Stabilization Head Rotation with Horizontal Arm Movement - 1 x daily - 7 x weekly - 1 sets - 10 reps - 5 hold - Walking Gaze Stabilization Head Nod - 1 x daily - 7 x weekly - 1 sets - 10 reps - 5 hold - Walking with Head Rotation - 1 x daily - 7 x weekly - 1 sets - 10 reps - 5 hold - Seated to Fold Over Vestibular Habituation - 1 x daily - 7 x weekly - 1 sets - 10 reps - 5 hold - Seated Nose to Left Knee Vestibular Habituation - 1 x daily - 7 x weekly - 1 sets - 10 reps - 5 hold - Seated Nose to Right Knee Vestibular Habituation - 1 x daily - 7 x weekly - 1 sets - 10 reps - 5 hold - Vestibular Habituation - Seated Horizontal Head Rotation - 1 x daily - 7 x weekly - 1 sets - 10 reps - 5 hold ASSESSMENT: Symptoms may be due to effect of alcoholism this time with negatived [place] and Supine head roll test done today. Patient will however benefit with gaze stabilization and habituation exercises as well as continued ambulation training on level surface and on stairs. Patient presents with clinical signs and symptoms consistent with current/admitting diagnoses that have resulted to mobility limitations, gait instability, generalized weakness, and overall ADL decline as demonstrated by the following impairment level findings: 1. Impaired sitting/standing balance 2. Impaired activity tolerance 3. Sensation of being spacey Impairments are contributing to the following functional limitations: 1. Increased completion time for mobility ADL performance 2. Increased risk for falls Goals: Patient will demonstrate independent ambulation with FWW for 600 feet with no symptoms with no SOB and LOB. MET Plan of Care/Treatment Plan: Continue training with level surface ambulation, stairs, and vestibular rehabilitation to reduce fall risk. DISCHARGE RECOMMENDATIONS: [] Home with no services [X] Home with services. Patient will benefit from home health PT services in order to progress mobility level using least restrictive assistive ambulatory device, assess home safety, identify additional equipment needs, and establish a functional maintenance program that will increase ability of patient to remain at home. 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 [] SNF for continued rehabilitation [] [] Senior Living Care [] [] SNF versus LTC based on ability to participate and progress [] TREATMENT CODE/TIME: 54092 x 15 minutes for 1 unit beginning at 9:58 AM. Thank you for the opportunity to participate in the care of this patient. Carey Trevino PT, DPT, CLT [facility] [place], [place]
--- NOTE | 2023-09-06 16:38 | PDOC.CMDIS ---
Date of service: 09/06/23 Time of Service: 16:38 LACE Index Scoring Tool Questions: Length of Stay (in days): 3 Was the patient admitted via the E.D.?: Yes E.D. Visits: 2 Answers: Total Score: 8 Risk of Readmission: Low Risk Care Management Discharge Plan Reason for Hospitalization: Acute alcohol withdrawal, hypokalemia, hypomagnesemia Discharge Plan: Paul will return home and follow up with his PCP and plan of care as prescribed, assistant boys track coach services will remain engaged as well. He will transport via private vehicle with a friend. Patient/Family Education Needs: Review discharge instructions, discuss Ask Me Three. SDOH Health Related Social Needs: Health related social needs inadequate housing, risk of homeless, food insecurity, transpo insecurity, material hardship Health related social needs: inadequate housing(Z59.1), housing instability, housed, with risk of homelessness(Z59.811), food insecurity(Z59.41), transportation insecurity(Z59.82) and material hardship(utilities)(Z59.87) Referrals and interventions: [employer], review of community based service supports.
== END 2023-09-06 10:16 | disposition home or self-care (01) | DRG 897 ==
LOC: ER 10:00 → ICU 14:19
PROVIDERS: Family Medicine; Admitting Provider Internal Medicine; Emergency Provider Emergency Medicine; PCP Nurse Practitioner Family; Visit Provider Internal Medicine
DX: F10.230 Alcohol dependence with withdrawal, uncomplicated (principal); M87.852 Other osteonecrosis, left femur; E87.6 Hypokalemia; E83.42 Hypomagnesemia; K76.0 Fatty (change of) liver, not elsewhere classified; R42 Dizziness and giddiness; F17.210 Nicotine dependence, cigarettes, uncomplicated; Z96.641 Presence of right artificial hip joint
CPT/HCPCS: 00123; 36415; 80048; 80053; 80076; 80307; 82550; 83690; 85027; 90686; 93005; 93308; 96365; 96366; 96367; 96375; 97112; 97162; 97530; 99291; J1650; 71045; 80320; 81003; 83735; 84100; 84484; 85025; 85379; 93010; 99222; 99233; 99239; J2405; J2560; J3411; J3475; J3480

== ENCOUNTER 2023-09-14 21:05 | Emergency (ER) | payer MEDICAID, SELFPAY ==
[2023-09-14] VITALS (60 sets, daily range): BP systolic 124–182; BP diastolic 76–115; PULSE 83–107; RESP 10–23; O2SAT 94–99
--- NOTE | 2023-09-14 21:00 | RT.EKG_ITS ---
APPROVED REPORT Exam: Resting ECG Reason for Exam: ETOH Patient Location: E HR:90 bpm ECG Measurements Heart Rate 90 AXIS MO 177 P 64 QRSd 85 QRS 58 QT 351 T 62 QTc 431 Conclusion Sinus rhythm...normal P axis, V-rate 60- 99 Probable left atrial enlargement...P >50mS, <-0.10mV V1 sinus rhythm, normal axis, normal intervals, non ischemic
[2023-09-14 21:41] LABS: Abs Immature Grans 0.01 10^3/uL (0.0-0.06); Absolute Basophil Count 0.07 10^3/uL (0.0-0.2); Absolute Eosinophil Count 0.12 10^3/uL (0.0-0.7); Absolute Lymphocyte Count 3.42 10^3/uL (1.2-3.4); Absolute Monocyte Count 0.79 10^3/uL (0.1-0.8); Absolute Neutrophil Count 3.39 10^3/uL (1.2-6.7); Basophils % 0.9; Eosinophils % 1.5; HCT 36.5 % (40.0-50.0); HGB 13.1 g/dL (13.5-17.5); Immature Grans % 0.1; Lymphocytes % 43.8; MCH 34.7 pg (27.0-33.0); MCHC 35.9 % (32.0-36.0); MCV 97 fL (80-95); Monocytes % 10.1; Neutrophils % 43.6; Platelet Count 236 10^3/uL (130-400); RBC 3.77 10^6/uL (4.36-5.78); RDW 12.8 % (11.8-14.1); RDW-SD 45.9 fL
[2023-09-14] MEDS: Normal Saline 1,000 ML 1000 ML IV (21:48)
[2023-09-14 21:53] LABS: ETHANOL BLOOD 106.7 mg/dL (<10)
[2023-09-14 21:58] LABS: ALT 62 U/L (16-63); AST 76 U/L (15-37); Albumin 3.9 g/dL (3.4-5.0); Alkaline Phosphatase 85 U/L (46-116); Anion Gap 16.7 mmol/L (3-11); BUN 2 mg/dL (7-18); Bilirubin, Total 0.4 mg/dL (0.2-1.0); CO2 22.3 mmol/L (21.0-32.0); CREATININE 0.8 mg/dL (0.70-1.30); Calcium 9.2 mg/dL (8.5-10.1); Chloride 101 mmol/L (98-107); Estimated GFR 109.85 (mL/min/1.73m2); Glucose 99 mg/dL (74-106); Lipase 126 U/L (16-77); Potassium 3.3 mmol/L (3.5-5.1); Sodium 140 mmol/L (136-145); Total Protein 7.9 g/dL (6.4-8.2)
[2023-09-14] MEDS: LORazepam 2 MG/ML VIAL 1 MG IVP (22:22)
[2023-09-14] MEDS: chlordiazePOXIDE 25 MG CAP 50 MG PO ×2 (22:22→22:46)
--- NOTE | 2023-09-14 22:34 | ED.GENADUL_ITS ---
HPI General Mode of arrival: EMS . Date/Time Provider Initiated Documentation: 09/14/23 21:17 . Limitations to Documentation: no limitations . Information obtained by: patient and EMS . HPI Narrative: This is a 48-year-old gentleman presenting to the ER for concern of alcohol withdrawal. Patient was recently admitted to our facility on 09/03/2023 for the same, unfortunately relapsed after discharge. Since that time he has attended AA meetings, he did attempt to speak with his sponsor today. He also spoke with his motor coach tour operator this evening. He admits to drinking 5-6 drinks daily, reports last drink was approximately 4 AM this morning. He states that he feels slightly nauseous, shaky, but not nearly as poorly as he did upon his admission. He is hoping for relief of his symptoms but overall is not interested in admission or in facility detox as he has a dog at home which he needs to take care of. He is scheduled to see his PCP tomorrow and would like to discuss outpatient detox options. He does tell me that previously he was successful for 8 months with out patient detox and oral medications. Patient denies any history of alcohol withdrawal seizures or delirium tremens. He denies recent illness, headache, chest pain, shortness of breath, abdominal pain, vomiting, diarrhea. He does admit to smoking cigarettes but denies any illicit drug use. History of GERD for which he takes pantoprazole. He does admit to prior pancreatitis but denies any abdominal or chest pain today. Otherwise denies significant past medical history. Related Data Home Medications Medication Instructions Recorded Confirmed pantoprazole 40 mg tablet,delayed 40 mg PO DAILY@0730 #90 tabs 09/06/23 09/14/23 release Previous Rx's Medication Instructions Recorded pantoprazole 40 mg tablet,delayed 40 mg PO DAILY@0730 #90 tabs 09/06/23 release Allergies Allergy/AdvReac Type Severity Reaction Status Date / Time No Known Allergies Allergy Unverified 09/14/23 21:15 General Stated Complaint: ETOHWithdr SARAH: 3 Review of Systems Constitutional Constitutional: Denies fatigue, Denies fever(s), Denies headache(s) and Reports weakness (Generalized) ENT Ears, Nose, Mouth, and Throat: Denies headache(s) Cardiovascular Cardiovascular: Denies chest pain and Denies dyspnea Respiratory Respiratory: Denies dyspnea Gastrointestinal Gastrointestinal: Denies abdominal pain, Reports nausea and Denies vomiting Genitourinary Genitourinary: Denies difficulty urinating Musculoskeletal Musculoskeletal: Denies back pain Integumentary/Breasts Skin/Breast: Denies rash Neurologic Neurologic: Denies headache(s), Reports weakness (Generalized) and Reports other (Shaky) Psychiatric Psychiatric: Reports anxiety, Denies depression and Denies suicidal ideation Endocrine Endocrine: Denies fatigue Exam Const General: cooperative, comfortable and no acute distress Orientation: alert, awake and oriented x3 [facility] Head: normal to inspection, normocephalic and atraumatic Face and sinus: normal facial exam Mouth: moist mucous membranes abnormal (Slightly dry) Throat: posterior oropharynx normal Eyes General: appearance normal, both eyes and all related structures Conjunctivae: conjunctivae normal Neck Neck: normal visual inspection, full ROM, trachea midline and supple Resp Effort & Inspection: normal respiratory effort and able to speak in complete sentences Auscultation: clear to auscultation bilaterally Cardio Rate: tachycardic (103) Rhythm: regular rhythm GI Inspection: normal to inspection Palpation: soft, not firm, no guarding and nontender Auscultation: normal bowel sounds Back/Spine/Pelvis Back: No back tenderness Skin General skin exam: no rashes or lesions noted Neuro General: patient alert, patient awake, patient oriented x3, moves all extremities and no focal motor deficits Speech: speech normal Gait: normal gait Motor: muscle tone normal throughout Sensory Exam: no sensory deficits noted Extrem General: normal to inspection, full ROM and capillary refill normal Psych Appearance: grossly normal Mental Status: mental status grossly normal Course Vital Signs Vital signs: Vital Signs Pulse 105 H 09/14/23 21:07 Respiratory Rate 15 09/14/23 21:07 Blood Pressure 182/110 H 09/14/23 21:07 Pulse Oximetry 99 09/14/23 21:07 Pulse 84 09/14/23 22:15 Pulse 94 H 09/14/23 21:46 Respiratory Rate 14 09/14/23 22:29 Respiratory Effort Non-Labored, Short of Breath 09/14/23 21:11 Respiratory Pattern Normal 09/14/23 21:11 Blood Pressure 127/80 09/14/23 22:15 Blood Pressure Mean 106 09/14/23 21:46 Blood Pressure Position Sitting 09/14/23 21:07 Pulse Oximetry 94 09/14/23 22:29 Oxygen Delivery Method Room Air 09/14/23 21:07 Oxygen Flow Rate 0 09/14/23 21:07 Lab/Test Results Lab/Test Results: Laboratory Tests Range/Units 09/14/23 21:36 WBC (4.4-10.8) 10^3/uL 7.80 RBC (4.36-5.78) 10^6/uL 3.77 L Hgb (13.5-17.5) g/dL 13.1 L Hct (40.0-50.0) % 36.5 L MCV (80-95) fL 97 H MCH (27.0-33.0) pg 34.7 H MCHC (32.0-36.0) % 35.9 RDW (11.8-14.1) % 12.8 Plt Count (130-400) 10^3/uL 236 MPV (8.0-11.0) fL 9.0 Immature Gran % 0.1 Neutrophils % 43.6 Lymphocytes % 43.8 Monocytes % 10.1 Eosinophils % 1.5 Basophils % 0.9 Nucleated RBC % (0.0-0.3) % 0.0 Absolute Neutrophils (1.2-6.7) 10^3/uL 3.39 Absolute Lymphocytes (1.2-3.4) 10^3/uL 3.42 H Absolute Monocytes (0.1-0.8) 10^3/uL 0.79 Absolute Eosinophils (0.0-0.7) 10^3/uL 0.12 Absolute Basophils (0.0-0.2) 10^3/uL 0.07 Sodium (136-145) mmol/L 140 Potassium (3.5-5.1) mmol/L 3.3 L Chloride (98-107) mmol/L 101 Carbon Dioxide (21.0-32.0) mmol/L 22.3 Anion Gap (3-11) mmol/L 16.7 H BUN (7-18) mg/dL 2 L Creatinine (0.70-1.30) mg/dL 0.8 Est GFR (CKD-EPI 2020) (mL/min/1.73m2) 109.85 Glucose (74-106) mg/dL 99 Calcium (8.5-10.1) mg/dL 9.2 Total Bilirubin (0.2-1.0) mg/dL 0.4 AST (15-37) U/L 76 H ALT (16-63) U/L 62 Alkaline Phosphatase (46-116) U/L 85 Total Protein (6.4-8.2) g/dL 7.9 Albumin (3.4-5.0) g/dL 3.9 Lipase (16-77) U/L 126 H Ethyl Alcohol (<10) mg/dL 106.7 H Medical Decision Making This is a 48-year-old gentleman who presents via EMS for what he describes as mild alcohol withdrawal. He states that he almost did not come because he is not sure what we can do for him today. He admits that he feels much better today when compared to his admission on 09/03/2023. He last had alcohol around 4 AM this morning. He attempted to contact his AA sponsor and he has already spoken with his motor coach tour operator today. He is scheduled to see his PCP tomorrow when he plans to pursue outpatient medicated detox. He states that he cannot be hospitalized because he has a dog at home and needs to care for his dog. Clinically overall he appears fairly well, no acute distress. Initial blood pressure reading 182/110, mild tachycardia 105. I had a very transparent conversation with the patient regarding his expectations and how we could best help him this evening. He denies ever having alcohol withdrawal seizures. He declines speaking with motor coach tour operator as he already spoke with 1 earlier today. Plan to obtain IV access, give IV fluids, and obtain routine screening laboratory values and alcohol level. Extremely low suspicion for sepsis and/or infectious process. I am more interested in potential electrolyte abnormality, specifically hypokalemia as this was the case last visit. If laboratory values reveal a reason for a medical admission then would likely load with phenobarbital and speak with our hospitalist team. Otherwise, if laboratory values are unremarkable, no clear indication for admission, and he responds well to the IV fluid, we could discuss a single dose of IV Ativan, p.o. Librium now, and 4 tablets to go home with to bridge him until he can see his PCP tomorrow. Patient is now normotensive and heart rate is in the 90s. Overall he reports feeling improvement. Laboratory values were reviewed, no evidence of leukocytosis. Mild anemia. Patient denies any evidence of GI bleeding. Sodium 140, potassium of 3.3, creatinine 0.8 GFR 109.85 glucose 99 calcium 9.2 LFTs reveal lipase minimally elevated at 126 as well as AST of 76, otherwise unremarkable. Discussed workup in length with patient, no clear indication for emergent hospitalization. Plan to provide 1 mg IV Ativan and 50 mg of p.o. Librium. Upon reevaluation heart rate now in the 80s, blood pressure remains normotensive. Patient reports that overall his symptoms are much improved, edge was taken off, and he feels as though discharge home with a take-home pack of Librium to bridge his symptoms until he sees his PCP tomorrow is p erfectly reasonable. I will arrange transportation via [facility]. Patient encouraged to return for new or evolving symptoms. He was encouraged to speak with both his motor coach tour operator and AA sponsor tomorrow. Lastly, we spoke about the importance of speaking with his PCP tomorrow as already scheduled discussed outpatient detox options as inpatient is currently not an option given his life circumstances. Standard discharge and return precautions were provided. Patient understands, is agreeable to this plan, and has no additional questions or concerns upon discharge. This documentation was generated using [employer] system, please disregard any oddities of phrase or misspellings. Medical Records Medical records reviewed: Yes I reviewed the patient's medical records. Lab Data Lab results reviewed: Yes I reviewed the patient's lab results. Labs: Laboratory Tests Range/Units 09/14/23 21:36 WBC (4.4-10.8) 10^3/uL 7.80 RBC (4.36-5.78) 10^6/uL 3.77 L Hgb (13.5-17.5) g/dL 13.1 L Hct (40.0-50.0) % 36.5 L MCV (80-95) fL 97 H MCH (27.0-33.0) pg 34.7 H MCHC (32.0-36.0) % 35.9 RDW (11.8-14.1) % 12.8 Plt Count (130-400) 10^3/uL 236 MPV (8.0-11.0) fL 9.0 Immature Gran % 0.1 Neutrophils % 43.6 Lymphocytes % 43.8 Monocytes % 10.1 Eosinophils % 1.5 Basophils % 0.9 Nucleated RBC % (0.0-0.3) % 0.0 Absolute Neutrophils (1.2-6.7) 10^3/uL 3.39 Absolute Lymphocytes (1.2-3.4) 10^3/uL 3.42 H Absolute Monocytes (0.1-0.8) 10^3/uL 0.79 Absolute Eosinophils (0.0-0.7) 10^3/uL 0.12 Absolute Basophils (0.0-0.2) 10^3/uL 0.07 Sodium (136-145) mmol/L 140 Potassium (3.5-5.1) mmol/L 3.3 L Chloride (98-107) mmol/L 101 Carbon Dioxide (21.0-32.0) mmol/L 22.3 Anion Gap (3-11) mmol/L 16.7 H BUN (7-18) mg/dL 2 L Creatinine (0.70-1.30) mg/dL 0.8 Est GFR (CKD-EPI 2020) (mL/min/1.73m2) 109.85 Glucose (74-106) mg/dL 99 Calcium (8.5-10.1) mg/dL 9.2 Total Bilirubin (0.2-1.0) mg/dL 0.4 AST (15-37) U/L 76 H ALT (16-63) U/L 62 Alkaline Phosphatase (46-116) U/L 85 Total Protein (6.4-8.2) g/dL 7.9 Albumin (3.4-5.0) g/dL 3.9 Lipase (16-77) U/L 126 H Ethyl Alcohol (<10) mg/dL 106.7 H ECG Data Attestation: I personally reviewed and interpreted this ECG (s) as follows: Interpretation: Please see official report by Dr. Casillas. Normal sinus rhythm, ventricular rate of 90, no STEMI. 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) Cyst of right upper eyelid Family History Maternal Grandfather Alcohol abuse Maternal Uncle Alcohol abuse Social History Smoking/Tobacco Use Status: Current every day Tobacco Type: cigarettes Smoking packs per day: 1 Smoking cigarettes per day: 20.0 Years smoked: 25 Smoking pack- years: 25.00 Smoking risk assessment performed?: Yes Alcohol Intake: current Alcohol Intake frequency: 3 or more drinks per day Alcohol type: beer and hard liquor Details: last drink was 2 weeks ago Drug use: Never Substance use type: does not use Housing: 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 PAWSS Have you Been Recently Intoxicated or Drunk Within the Last 30 days?: Yes Have you Ever Experienced Previous Episodes of Alcohol Withdrawal?: Yes Have you ever Experienced Withdrawal Seizures?: No Have you ever Experienced Delirium Tremens(DT)s?: No Have you ever undergone Alcohol Rehabilitation Treatment (i.e, inpt ot outpatient treatment programs)?: Yes Have you ever Experienced Blackouts?: Yes Have you ever Combined Alcohol with other Downers within the last 90 days?: No Have you ever Combined Alcohol with any other Substance of Abuse during the last 90 days?: No Positive Blood Alcohol level on Presentation? [PCS.BAL]: Unable to Obtain Evidence of Increased Autonomic Activity (i.e. HR>120, tremor, sweating, agitation, nausea)?: Yes Result: 5 Discharge Plan Disposition Patient Disposition: Home Condition: Improving Discharge Details Clinical Impression: Alcohol withdrawal Primary Care Provider: OWEN GARRISON ED Provider: Joesph Gonzalez Home Meds and New Rx's Prescriptions: Continued pantoprazole 40 mg Tablet,Delayed Release (Dr/Ec) 40 mg PO DAILY@0730 Qty: 90 0RF Hold Instructions: Pt Stopped/Never Started Discharge Instructions Instructions: Alcohol Withdrawal (ED) Additional Instructions: Laboratory values did not reveal any obvious emergent process. You have already spoken with a motor coach tour operator this evening and tell me that you already have an AA sponsor. You do not want any formal detox in a facility as you have a dog to get home to. Given this, you responded well to IV Ativan and p.o. Librium. I have provided you with 4 additional tablets of Librium to take 1 tablet every 4- 6 hours for withdrawal symptoms. You tell me you have a primary care provider appointment tomorrow. It is imperative that you make this appointment and discuss your ongoing struggles with alcohol and your desire to attempt to detox with medication from home. Please watch for new or worsening symptoms and return to the ER for any concerns. Discharge Data Discharge Date/Time-TO BE ENTERED AT DEPARTURE: 09/14/23 22:52
== END 2023-09-14 22:52 | disposition home or self-care (01) ==
PROVIDERS: Emergency Provider Physician Assistant; PCP Nurse Practitioner Family
DX: F10.130 Alcohol abuse with withdrawal, uncomplicated (principal); K21.9 Gastro-esophageal reflux disease without esophagitis; F17.210 Nicotine dependence, cigarettes, uncomplicated; Y90.5 Blood alcohol level of 100-119 mg/100 ml; R94.31 Abnormal electrocardiogram [ECG] [EKG]
CPT/HCPCS: 80053; 83690; 93005; 96361; 96374; 99284; 80320; 85025; 93010; J2060

== ENCOUNTER 2023-09-22 18:00 | Emergency (ER) | payer MEDICAID, SELFPAY ==
[2023-09-22 18:06] VITALS: BP 106/76; PULSE 94; RESP 16; TEMP 36.4; O2SAT 98
--- NOTE | 2023-09-22 18:23 | W.ED.GENAD ---
HPI General Date/Time Provider Initiated Documentation: 09/22/23 18:13. HPI Narrative: 48 year-old male presents to ED today by POV/ambulating with a chief complaint of R rib pain from a fall two days ago, and more mild R elbow and hip pain. Patient has history of ETOH abuse. Quality described as R rib pain, pain when laughing/deep breathing, no radiation to fever, cough, hemoptysis, mid-back pain, inability to ambulate. Severity is described as 6-7/10. Palliating factors include Aleve earlier today. Provoking factors include nothing specific. Events leading up to the incident/Associated Symptoms: Patient denies intoxication at time of fall. Patient not anticoagulated. Related Data Home Medications Medication Instructions Recorded Confirmed pantoprazole 40 mg tablet,delayed 40 mg PO DAILY@0730 #90 tabs 09/06/23 09/22/23 release acamprosate 333 mg tablet,delayed 333 mg PO 09/22/23 release Previous Rx's Medication Instructions Recorded pantoprazole 40 mg tablet,delayed 40 mg PO DAILY@0730 #90 tabs 09/06/23 release Allergies Allergy/AdvReac Type Severity Reaction Status Date / Time No Known Allergies Allergy Unverified 09/22/23 18:08 General Stated Complaint: Chest/Rib SARAH: 4 Review of Systems All systems reviewed & are unremarkable except as noted in HPI and below Exam Narrative Exam Narrative: GENERAL APPEARANCE: Well-nourished, non-toxic, awake and alert, atraumatic, no acute distress. SKIN: Warm, pink, dry, intact, without rashes/lesions/ulcerations. HEAD: Normocephalic, atraumatic, normal hair distribution for gender/age. EYES: Pupils PERRLA, EOMs intact without nystagmus, normal conjunctiva, no exudates on lids/lashes. ENT: Nares patent, no circumoral cyanosis, no facial swelling NECK: Supple, trachea midline, painless cervical ROM. LUNGS/CHEST: Lungs CTA bilaterally- no rhonchi/rales/wheezes diffusely- no focally diminished or absent lung sounds, non-labored respirations, normal A/P diameter, symmetrical expansion, no chest wall deformity, no flail segment or crepitus, small ecchymosis at axillary mid-R ribs HEART (CV/PV): Regular rate and rhythm without murmur, no peripheral edema, no JVD. ABDOMEN: Soft, non-distended, no guarding, no tenderness. MSK: Normal ROM, no swelling/deformity to bilateral UEs or LEs, moving all extremities without weakness, no cyanosis, spine midline without tenderness, normal curvature. NEURO: Mental Status AAOx4 - alert to person, place, time, events No facial droop, no forehead involvement. Motor: No focal weakness - strength 5/5 in bilateral UEs and LEs, proximal and distal, symmetric. Sensory: sensation intact to light touch globally. Gait normal: patient ambulated without ataxia into ED room. PSYCH: euthymic, cooperative, pleasant, appropriate speech Course Vital Signs Vital signs: Vital Signs Temperature 36.4 C L 09/22/23 18:06 Pulse 94 H 09/22/23 18:06 Respiratory Rate 16 09/22/23 18:06 Blood Pressure 106/76 09/22/23 18:06 Pulse Oximetry 98 09/22/23 18:06 Temperature 36.4 C L 09/22/23 18:06 Temperature Source Skin 09/22/23 18:06 Pulse 94 H 09/22/23 18:06 Respiratory Rate 16 09/22/23 18:06 Respiratory Effort Normal, Non-Labored 09/22/23 18:22 Respiratory Depth Normal 09/22/23 18:22 Respiratory Pattern Normal 09/22/23 18:22 Blood Pressure 106/76 09/22/23 18:06 Blood Pressure Position Sitting 09/22/23 18:06 Pulse Oximetry 98 09/22/23 18:06 Oxygen Delivery Method Room Air 09/22/23 18:06 Oxygen Flow Rate 0 09/22/23 18:06 Pain Level 6 09/22/23 18:06 Medical Decision Making This dictation utilizes [id number] dictation software and may contain unedited grammatical errors. 48 y/o M presents to ED today with a chief complaint of fall two days ago, focal R axillary rib pain, minor elbow and hip pain- states only needs XR for rib pain - denies fever, cough, sputum production. Patient has history of ETOH abuse, denies intoxication at time of injury. Patients' medical history: Alcohol withdrawal, hepatic steatosis, tobacco abuse, chronic vertigo. Family and social history: ETOH use disorder. Pertinent exam findings / vital signs include LUNGS/CHEST: Lungs CTA bilaterally- no rhonchi/rales/wheezes diffusely- no focally diminished or absent lung sounds, non-labored respirations, normal A/P diameter, symmetrical expansion, no chest wall deformity, no flail segment or crepitus, small ecchymosis at axillary mid-R ribs. Differential / pathologies of concern include Rib fracture, contusion, PTX. Diagnostic studies of: -XR R Rib series w PA chest - no acute findings. Interventions of: -1g Tylenol. ED Course/Assessment/Plan: 48-year-old male with history of chronic vertigo and alcohol abuse had a fall 2 days ago and is reporting right rib pain, there is no sign of flail segment on exam, only minor bruising to the axillary right mid ribs, x-rays negative for any fracture or pneumothorax, counseled on bulky dressing to pad the area as well as deep breathing exercises to prevent pneumonia and therapeutic dosing of Tylenol and ibuprofen. Findings not consistent with multiple rib fractures or pneumothorax, pneumonia. Disposition of Rib Contusion. Patient verbalized understanding of the plan and return to ED criteria and engaged in shared decision making. Medical Records Medical records reviewed: Yes I reviewed the patient's medical records. Imaging Data Radiologic Study: Imaging: X-Ray Radiologist's impression: EXAM: XR RIBS RT W PA LAT CHEST CLINICAL HISTORY: fall 2 days ago, R mid-rib pain TECHNIQUE: 2D digital imaging was performed. COMPARISON: CR,XR XR PORTABLE CHEST AP from 09/03/2023 FINDINGS: Total 6 views = RIBS 4 VIEWS-RIGHT There are no obvious acute rib fractures evident. No lytic rib lesions identified. CXR- 2 VIEWS: No lung contusion or pneumothorax. There is no pleural effusion evident. Heart size is normal and there is no significant mediastinal widening. IMPRESSION: 1. No obvious rib fractures evident. Also no significant rib lesions. 2. No ipsilateral lung nor pleural abnormality evident. No pneumothorax. Quality:SDOH Health Related Social Needs: Health related social needs inadequate housing, risk of homeless, food insecurity, transpo insecurity, material hardship PFSH All Active Problems (Updated 09/22/23 @ 18:45 by ELSY Powell) Rib contusion (Acute) Alcohol withdrawal (Acute) Trochanteric bursitis, right hip (Acute) Avascular necrosis of bone of left hip (Acute) Chest pain (Acute) due to ETOH Hepatic steatosis (Acute) COVID-19 ruled out (Acute) Tobacco abuse (Acute) Impairment of balance (Acute) Chronic vertigo (Acute) Electrolyte and fluid disorder (Acute) Surgical History 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) Cyst of right upper eyelid Family History Maternal Grandfather Alcohol abuse Maternal Uncle Alcohol abuse Social History Smoking/Tobacco Use Status: Current every day Tobacco Type: cigarettes Smoking packs per day: 1 Smoking cigarettes per day: 20.0 Years smoked: 25 Smoking pack-years: 25.00 Smoking risk assessment performed?: Yes Alcohol Intake: current Alcohol Intake frequency: 3 or more drinks per day Alcohol type: beer and hard liquor Details: last drink was 2 weeks ago Drug use: Never Substance use type: does not use Details: last ETOH use 10 days ago- was admitted for detox but hasnt drank since discharge per pt report Housing: 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 PAWSS Have you Been Recently Intoxicated or Drunk Within the Last 30 days?: Yes Have you Ever Experienced Previous Episodes of Alcohol Withdrawal?: Yes Have you ever Experienced Withdrawal Seizures?: No Have you ever Experienced Delirium Tremens(DT)s?: Yes Have you ever undergone Alcohol Rehabilitation Treatment (i.e, inpt ot outpatient treatment programs)?: Yes Have you ever Experienced Blackouts?: Yes Have you ever Combined Alcohol with other Downers within the last 90 days?: No Have you ever Combined Alcohol with any other Substance of Abuse during the last 90 days?: No Positive Blood Alcohol level on Presentation? [PCS.BAL]: No Evidence of Increased Autonomic Activity (i.e. HR>120, tremor, sweating, agitation, nausea)?: No Result: 5 Discharge Plan Disposition Patient Disposition: Home Condition: Stable Discharge Details Clinical Impression: Rib contusion Primary Care Provider: OWEN GARRISON ED Provider: Alejandro Solorzano Home Meds and New Rx's Prescriptions: Continued pantoprazole 40 mg Tablet,Delayed Release (Dr/Ec) 40 mg PO DAILY@0730 Qty: 90 0RF Hold Instructions: Pt Stopped/Never Started acamprosate 333 mg tablet,delayed release (DR/EC) 333 mg PO Discharge Instructions Instructions: Rib Contusion (ED) Additional Instructions: You were seen in the emergency department for your fall 2 days ago, you have likely suffered a rib contusion, there is no fracture or punctured lung seen on your x-ray, you refused x-ray for your elbow and other areas of pain, please take Tylenol and ibuprofen as needed apply ice to the area, while at home you may wrap a bulky dressing around your rib cage like a pillow held tightly to your chest to stabilize any rib contusion. Please use therapeutic dosing of Tylenol (acetamenophen) & Advil (ibuprofen) in an alternating fashion as follows: Take 1000mg of Tylenol every 6 hours without missing doses- that is 4 times per day. [place] in between the Tylenol dosings, take 400-600mg of Advil also on a 6 hour schedule, that is also 4 times per day. The daily maximum dosing of Tylenol is 4000mg, and the daily maximum dosing of Advil is 2400mg. This is safe to do for weeks. Please note that some common cold medications & prescription pain medications may contain acetamenophen and you need to read OTC drug labels and factor that in to maximum daily dosings. Please perform deep breathing exercises to help prevent pneumonia, return to the ED for any developing fever and cough especially with worsening chest pain or shortness of breath. Referrals: OWEN GARRISON PIPE THREADING MACHINE OPERATOR [Primary Care Provider] - Discharge Data Discharge Date/Time-TO BE ENTERED AT DEPARTURE: 09/22/23 18:52
--- NOTE | 2023-09-22 18:28 | DI.RAD_ITS ---
Exam(s) XR RIBS RT W PA LAT CHEST EXAM: XR RIBS RT W PA LAT CHEST CLINICAL HISTORY: fall 2 days ago, R mid-rib pain TECHNIQUE: 2D digital imaging was performed. COMPARISON: CR,XR XR PORTABLE CHEST AP from 09/03/2023 FINDINGS: Total 6 views = RIBS 4 VIEWS-RIGHT There are no obvious acute rib fractures evident. No lytic rib lesions identified. CXR- 2 VIEWS: No lung contusion or pneumothorax. There is no pleural effusion evident. Heart size is normal and there is no significant mediastinal widening. IMPRESSION: 1. No obvious rib fractures evident. Also no significant rib lesions. 2. No ipsilateral lung nor pleural abnormality evident. No pneumothorax. DATA REPOSITORY: RADIATION DOSE DELIVERED:
[2023-09-22] MEDS: Acetaminophen 500 MG TAB 1000 MG PO (18:33)
== END 2023-09-22 18:52 | disposition home or self-care (01) ==
LOC: ER 18:57
PROVIDERS: Emergency Provider Physician Assistant; PCP Nurse Practitioner Family
DX: S20.211A Contusion of right front wall of thorax, initial encounter (principal); F17.210 Nicotine dependence, cigarettes, uncomplicated; W19.XXXA Unspecified fall, initial encounter
CPT/HCPCS: 99283; 71046; 71100

== ENCOUNTER 2023-10-28 04:25 | Inpatient (IN) | payer MEDICAID, SELFPAY ==
[2023-10-28] VITALS (37 sets, daily range): BP systolic 95–152; BP diastolic 55–90; PULSE 61–94; RESP 14–98; TEMP 36.6–37.3; O2SAT 95–100
--- NOTE | 2023-10-28 04:15 | RT.EKG_ITS ---
APPROVED REPORT Exam: Resting ECG Reason for Exam: chest pain Patient Location: E HR:88 bpm ECG Measurements Heart Rate 88 AXIS [place] 176 P 84 QRSd 86 QRS 74 QT 409 T 75 QTc 495 Conclusion Sinus rhythm... V-rate 60- [address] segment or T wave abnormalities to suggest occlusive [place]
--- NOTE | 2023-10-28 04:15 | DI.RAD_ITS ---
Exam(s) XR CHEST 2V PA LATERAL EXAM: XR CHEST 2V PA LATERAL CLINICAL HISTORY: chest pain TECHNIQUE: 2D digital imaging was performed of the chest. Two images were obtained. PA and lateral views were obtained. COMPARISON: CR XR RIBS RT W PA LAT CHEST from 09/22/[address] CHEST PE ABD PELVIS W from 10/28/2023 FINDINGS: MEDIASTINUM: Normal. HEART: Normal. PULMONARY VASCULATURE: Normal. LUNGS: Clear. PLEURAL SPACE: No pleural effusion or pneumothorax. BONE:Within normal limits for the patient's age. The patient's healing right 9th rib fractures best appreciated on the CT scan of the chest performed the same day. OTHER FINDINGS:Normal. IMPRESSION: No acute pulmonary findings. DATA REPOSITORY: RADIATION DOSE DELIVERED:
[2023-10-28] MEDS: Ondansetron 4 MG/2 ML VIAL IVP (04:39)
[2023-10-28 04:43] LABS: Abs Immature Grans 0.05 10^3/uL (0.0-0.06); Absolute Eosinophil Count 0.04 10^3/uL (0.0-0.7); Absolute Lymphocyte Count 1.05 10^3/uL (1.2-3.4); Basophils % 0.6; Eosinophils % 0.4; HCT 39.6 % (40.0-50.0); Immature Grans % 0.5; Lymphocytes % 9.7; MCHC 35.4 % (32.0-36.0); MCV 99 fL (80-95); MPV 9.3 fL (8.0-11.0); Monocytes % 7.5; Neutrophils % 81.3; Platelet Count 116 10^3/uL (130-400); RDW 13.1 % (11.8-14.1); RDW-SD 47.8 fL; WBC 10.87 10^3/uL (4.4-10.8)
[2023-10-28 04:50] LABS: Absolute Basophil Count 0.07 10^3/uL (0.0-0.2); Absolute Monocyte Count 0.82 10^3/uL (0.1-0.8); Absolute Neutrophil Count 8.84 10^3/uL (1.2-6.7)
--- NOTE | 2023-10-28 05:01 | ED.GENADUL_ITS ---
Discharge Plan Discharge Details Chief Complaint: Chest Pain Primary Care Provider: OWEN GARRISON ED Provider: Pascale Mendoza Home Meds and New Rx's Prescriptions: No Action sildenafil 50 mg tablet 50 mg PO ONCE PRN Patient Comments: TAKE ONE TABLET BY MOUTH DIRECTED 60 MINUTES PRIOR TO INTERCOURSE HPI General Mode of arrival: EMS . Date/Time Provider Initiated Documentation: 10/28/23 04:33 . Limitations to Documentation: no limitations . Information obtained by: patient, EMS and old records reviewed . HPI Narrative: 48yo M with hx of ETOH abuse and ETOH withdrawal presenting via EMS for chest pain. States this is similar but not identical to prior episodes of ETOH withdrawal. Pain is substernal/epigastic, tight, sharp, severe, and constant and worsening since 8pm yesterday. No shortness of breath. No pain is not pleurtic. Drinks about 1/2 handle of vodka daily, last on 10/25. Associated nausea and tremors. No vomiting or abdominal pain. Given ASA from EMS prior to arrival. Was in his usual state of health yesterday morning prior to the onset of symptoms. Related Data Home Medications Medication Instructions Recorded Confirmed sildenafil 50 mg tablet 50 mg PO ONCE PRN 10/28/23 10/28/23 Allergies Allergy/AdvReac Type Severity Reaction Status Date / Time No Known Allergies Allergy Unverified 10/28/23 04:52 General Stated Complaint: Chest Pain SARAH: 2 Review of Systems Narrative: see HPI Exam Narrative Exam Narrative: General: Alert, chronically ill appearing. Head: Normocephalic, atraumatic Neck: Trachea midline, ?Neck supple. ENT: ?MMM.? Cardiac: ?RRR, no murmurs appreciated Resp: No respiratory distress. CTAB. Abd: ?Soft, non-distended. Mild epigastric tenderness to palpation with no guarding. : ?No suprapubic tenderness. Extremities: ?No deformities.? No peripheral edema. Neurologic: GCS 15. ? Moves all extremities freely against gravity Course Vital Signs Vital signs: Vital Signs Temperature 37.2 C 10/28/23 04:27 Pulse 89 10/28/23 04:27 Respiratory Rate 27 H 10/28/23 04:27 Blood Pressure 134/78 10/28/23 04:27 Pulse Oximetry 97 10/28/23 04:27 Temperature 37.2 C 10/28/23 04:27 Temperature Source Temporal Artery Scan 10/28/23 04:27 Pulse 89 10/28/23 04:27 Respiratory Rate 22 10/28/23 04:37 Respiratory Effort Normal, Non-Labored 10/28/23 04:37 Respiratory Depth Normal 10/28/23 04:37 Respiratory Pattern Normal 10/28/23 04:37 Blood Pressure 134/78 10/28/23 04:27 Blood Pressure Position Sitting 10/28/23 04:27 Pulse Oximetry 97 10/28/23 04:27 Oxygen Delivery Method Room Air 10/28/23 04:27 Oxygen Flow Rate 0 10/28/23 04:27 Pain Level 8 10/28/23 04:27 Lab/Test Results Lab/Test Results: Laboratory Tests Range/Units 10/28/23 10/28/23 04:34 07:24 WBC (4.4-10.8) 10^3/uL 10.87 H RBC (4.36-5.78) 10^6/uL 4.00 L Hgb (13.5-17.5) g/dL 14.0 Hct (40.0-50.0) % 39.6 L MCV (80-95) fL 99 H MCH (27.0-33.0) pg 35.0 H MCHC (32.0-36.0) % 35.4 RDW (11.8-14.1) % 13.1 Plt Count (130-400) 10^3/uL 116 L MPV (8.0-11.0) fL 9.3 Immature Gran % 0.5 Neutrophils % 81.3 Lymphocytes % 9.7 Monocytes % 7.5 Eosinophils % 0.4 Basophils % 0.6 Nucleated RBC % (0.0-0.3) % 0.0 Absolute Neutrophils (1.2-6.7) 10^3/uL 8.84 H Absolute Lymphocytes (1.2-3.4) 10^3/uL 1.05 L Absolute Monocytes (0.1-0.8) 10^3/uL 0.82 H Absolute Eosinophils (0.0-0.7) 10^3/uL 0.04 Absolute Basophils (0.0-0.2) 10^3/uL 0.07 Troponin I Cancelled Medical Decision Making 48yo M with hx of ETOH abuse and ETOH withdrawal presenting via EMS for chest pain. States this is similar but not identical to prior episodes of ETOH with drawal; last drink 3/7 in the evening. Pain is substernal/epigastic, tight, sharp, severe, and constant and worsening since 8pm yesterday. Given ASA from EMS during transport. Tachypenic on arrival, vital signs otherwise reassuring. Tremulous on exam, mild epigastric tenderness, no peritoneal signs. Does appear to be in withdrawal. CIWA on arrival 25; started on phenobarb protocol. Not DT's, patient does report he has had DT's in the past, unsure about withdrawal seizures. EKG sinus rhythm, appropriate intervals, to ST segment or T wave abnormalities to suggest occlusive [place]. CXR independently reviewed, no focal pneumonia or pneumothorax on my view; agree with radiology read below. Labs reviewed as below: -CBC with mild leukocytosis, thrombocytopenia with platelets of 116 (new since Aug of this year). -CMP with marked acidosis with bicarb of 14.9, elevated anion gap at 26, Bili/AST/ALT no worse compared to start of prior admission 09/03/23. Normal ALP. -VBG ordered and shows metabolic acidosis with respiratory compensation, pH 7.38, and lactate elevated at 4.9) SIRS negative, not concerned for sepsis. Given 1L IVFB with plan to recheck lactate after completion. -Lipase markedly elevated >375 (was ~100 on prior admission) concerning for acute pancreatitis especially given epigastric tenderness; no US available at this time, will get CT imaging. -Troponin negative in the setting of ~8 hours of constant pain, would not further pursue ACS. However dimer markedly elevated at 2604 (CT PE ordered), -Serum tox with ETOH 8.4, negative acetaminophen & salicylate. -UA pending. Continued on phenobarb protocol, repeat CIWA 10. Receiving zofran for nausea, morphine for pain. CT independently reviewed, no large saddle PE on my view, stranding surrounding pancreas consistent with pancreatitis. Agree with radiology read below. Discussed with hospitalist Dr. Zuniga; accepted for ETOH withdrawal and pancreatitis. Awaiting transfer to the floor. Medical Records Medical records reviewed: Yes I reviewed the patient's medical records. Medical records narrative: H&P admission 09/03/23 for ETOH withdrawal Imaging Data Radiologic Study: Imaging: X-Ray Radiologist's impression: IMPRESSION: No acute cardiopulmonary findings. Radiologic Study #2: Imaging: CT Scan Radiologist's impression: IMPRESSION: 1. Findings suggestive of acute pancreatitis without evidence for necrosis. Mild left anterior renal fascia ascites, no focal fluid collection. No vascular complications. 2. Likely focal ileus of the left upper quadrant small bowel due to pancreatic inflammation. 3. No pulmonary embolus. No acute vascular findings. 4. Additional findings as above. Radiologic Study #3: Radiologist's impression: Lab Data Lab results reviewed: Yes I reviewed the patient's lab results. Labs: Laboratory Tests Range/Units 10/28/23 10/28/23 10/28/23 04:34 05:30 07:24 WBC (4.4-10.8) 10^3/uL 10.87 H RBC (4.36-5.78) 10^6/uL 4.00 L Hgb (13.5-17.5) g/dL 14.0 Hct (40.0-50.0) % 39.6 L MCV (80-95) fL 99 H MCH (27.0-33.0) pg 35.0 H MCHC (32.0-36.0) % 35.4 RDW (11.8-14.1) % 13.1 Plt Count (130-400) 10^3/uL 116 L MPV (8.0-11.0) fL 9.3 Immature Gran % 0.5 Neutrophils % 81.3 Lymphocytes % 9.7 Monocytes % 7.5 Eosinophils % 0.4 Basophils % 0.6 Nucleated RBC % (0.0-0.3) % 0.0 Absolute Neutrophils (1.2-6.7) 10^3/uL 8.84 H Absolute Lymphocytes (1.2-3.4) 10^3/uL 1.05 L Absolute Monocytes (0.1-0.8) 10^3/uL 0.82 H Absolute Eosinophils (0.0-0.7) 10^3/uL 0.04 Absolute Basophils (0.0-0.2) 10^3/uL 0.07 D-Dimer (<500) ng/mlFEU 2604 H VBG pH (7.31-7.41) 7.38 VBG pCO2 (41-51) mmHg 28 L VBG pO2 mmHg 33 VBG HCO3 (23-28) mmol/L 17 L VBG Total CO2 (24-29) mmol/L 15 L VBG O2 Saturation % 62 VBG Base Excess (-2-3) mmol/L -9 L VBG Lactate (0.6-1.4) mmol/L 4.9 H* Sodium (136-145) mmol/L 133 L Potassium (3.5-5.1) mmol/L 4.0 Chloride (98-107) mmol/L 92 L Carbon Dioxide (21.0-32.0) mmol/L 14.9 L Anion Gap (3-11) mmol/L 26.1 H BUN (7-18) mg/dL 6 L Creatinine (0.70-1.30) mg/dL 1.0 Est GFR (CKD-EPI 2020) (mL/min/1.73m2) 93.42 Glucose (74-106) mg/dL 129 H Calcium (8.5-10.1) mg/dL 9.3 Phosphorus (2.6-4.7) mg/dL 2.1 L Magnesium (1.8-2.4) mg/dL 1.6 L Total Bilirubin (0.2-1.0) mg/dL 1.3 H AST (15-37) U/L 123 H ALT (16-63) U/L 79 H Alkaline Phosphatase (46-116) U/L 83 Troponin I (< or =60) ng/L < 50 Cancelled NT-Pro-B Natriuret Pep (<300) pg/mL 16 Total Protein (6.4-8.2) g/dL 8.4 H Albumin (3.4-5.0) g/dL 4.3 Lipase (16-77) U/L > 375 H Salicylates (<2.8) mg/dL < 2.8 Acetaminophen (10-30) ug/mL < 2 Ethyl Alcohol (<10) mg/dL 8.4 Quality:SDOH Health Related Social Needs: Health related social needs inadequate housing, risk o f homeless, food insecurity, transpo insecurity, material hardship PFSH All Active Problems (Updated 10/23/23 @ 00:07 by ELAINE PHILLIPS) Trochanteric bursitis, right hip (Acute) Avascular necrosis of bone of left hip (Acute) Chest pain (Acute) due to ETOH Hepatic steatosis (Acute) COVID-19 ruled out (Acute) Tobacco abuse (Acute) Impairment of balance (Acute) Chronic vertigo (Acute) Electrolyte and fluid disorder (Acute) Surgical History 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) Cyst of right upper eyelid Family History Maternal Grandfather Alcohol abuse Maternal Uncle Alcohol abuse Social History Smoking/Tobacco Use Status: Current every day Tobacco Type: cigarettes Smoking packs per day: 1 Smoking cigarettes per day: 20.0 Years smoked: 25 Smoking pack- years: 25.00 Smoking risk assessment performed?: Yes Alcohol Intake: current Alcohol Intake frequency: 3 or more drinks per day Alcohol type: beer and hard liquor Details: last drink was 2 weeks ago Drug use: Never Substance use type: does not use Details: Last ETOH 10/26 Housing: 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 PAWSS Have you Been Recently Intoxicated or Drunk Within the Last 30 days?: Yes Have you Ever Experienced Previous Episodes of Alcohol Withdrawal?: Yes Have you ever Experienced Withdrawal Seizures?: No Have you ever Experienced Delirium Tremens(DT)s?: Yes Have you ever undergone Alcohol Rehabilitation Treatment (i.e, inpt ot outpatient treatment programs)?: No Have you ever Experienced Blackouts?: Yes Have you ever Combined Alcohol with other Downers within the last 90 days?: No Have you ever Combined Alcohol with any other Substance of Abuse during the last 90 days?: No Positive Blood Alcohol level on Presentation? [PCS.BAL]: No Evidence of Increased Autonomic Activity (i.e. HR>120, tremor, sweating, agitation, nausea)?: Yes Result: 5
[2023-10-28 05:03] LABS: ALT 79 U/L (16-63); AST 123 U/L (15-37); Albumin 4.3 g/dL (3.4-5.0); Alkaline Phosphatase 83 U/L (46-116); Anion Gap 26.1 mmol/L (3-11); BUN 6 mg/dL (7-18); Bilirubin, Total 1.3 mg/dL (0.2-1.0); CO2 14.9 mmol/L (21.0-32.0); Calcium 9.3 mg/dL (8.5-10.1); Chloride 92 mmol/L (98-107); ETHANOL BLOOD 8.4 mg/dL (<10); Estimated GFR 93.42 (mL/min/1.73m2); Glucose 129 mg/dL (74-106); Magnesium 1.6 mg/dL (1.8-2.4); Sodium 133 mmol/L (136-145); Total Protein 8.4 g/dL (6.4-8.2); Troponin I < 50 ng/L (< or =60)
[2023-10-28 05:18] LABS: PHOSPHORUS 2.1 mg/dL (2.6-4.7)
[2023-10-28 05:19] LABS: D-Dimer 2604 ng/mlFEU (<500)
--- NOTE | 2023-10-28 05:22 | DI.CT_ITS ---
Exam(s) CT CHEST PE ABD PELVIS W EXAM: CT CHEST PE ABD PELVIS W CLINICAL HISTORY: chest pain, + dimer, substernal pain, elevated lipase. TECHNIQUE: Imaging Protocol: Axial CT angiography was performed with multi-slice acquisition and mu lti-planar and/or 3D reconstructions. CONTRAST MATERIAL: Intravenous: Omnipaque 350contrast volume:100 mL COMPARISON: CT CT CHEST PE CTA from 02/20/[address] CHEST PE ABD PELVIS W from 07/05/2020 FINDINGS: CHEST: Tracheobronchial tree: Patent where visualized. Pulmonary parenchyma: Paraseptal and centrilobular emphysematous changes are seen. There are no foca l consolidating infiltrates or nodules present. No architectural distortion. Pulmonary Arteries: No evidence of filling defect to suggest pulmonary emboli. Mediastinum and Patti: No dominant adenopathy or fluid collection. There is mild diffuse thickening of the wall of the distal esophagus. Visualized thyroid gland: Unremarkable. Pleura: No effusion or pneumothorax. Heart: The heart is not dilated. Coronary artery calcifications are present. No pericardial effusion . Aorta: Thoracic aorta non-dilated. No evidence of dissection. Atherosclerotic calcification is prese nt. Bones: Within normal limits for the patient's age. There is a subacute healing fracture of the it technical specialist ior aspect of the right 9th rib. There are old healed left rib fractures. Soft tissues: Unremarkable. ABDOMEN: Liver: There is fatty infiltration of the liver. No measurable mass. Portal, Superior Mesenteric, and Splenic Veins: Unremarkable. Gallbladder and Biliary Tract: No radiodense calculus or dilation. Pancreas: Inflammatory stranding is seen around the pancreas. There are few calcifications seen in t he pancreas. No focal fluid collection is seen to suggest abscess or phlegmon. The findings are nancy picious for acute pancreatitis. Spleen: Normal. Adrenals: No masses seen. Kidneys: Normal size, contour and axis. No radiodense stones or obstructive uropathy. There is a simp le cyst in the superior pole of the left kidney. No follow-up is recommended. Abdominal Aorta: Abdominal portion non-dilated. Mild atherosclerotic calcification is present. Bowel: There are few diverticula seen in the colon but no evidence of acute diverticulitis. There is no evidence of bowel obstruction or bowel wall thickening. Portions of the colon are collapsed limi ting evaluation. There is no pneumatosis. Mildly distended loops of small bowel are seen in the lef t upper quadrant likely reflecting a focal ileus secondary to the adjacent pancreatitis. Appendix is unremarkable. Peritoneal Cavity: No ascites, collection or mesenteric inflammatory response. No free air. Lymph Nodes: Within normal limits. Bones: Within normal limits for the patient's age. The patient has a right total hip replacement. L inear sclerotic areas are seen in the subchondral bone of the left femoral head most suggestive of av ascular necrosis. There is no loss of volume of the left femoral head. Soft Tissues: There is a 1.7 x 2 cm encapsulated fluid collection lateral to the left greater trochan ter (series 13, image [id number]). PELVIS: Bladder: There is mild diffuse thickening of the wall of the urinary bladder. Reproductive Organs: Unremarkable as visualized. Lymph Nodes: Within normal limits. Bones: Within normal limits. IMPRESSION: 1. No evidence pulmonary embolism, thoracic aortic dissection or aneurysm. 2. Findings most consistent with acute pancreatitis. No evidence of necrosis, abscess or phlegmon. 3. Subacute healing right 9th rib fracture. 4. Focal small bowel ileus in the left upper quadrant most likely secondary to the adjacent pancreati tis. 5. Avascular necrosis of the left femoral head. 6. 1.7 x 0 2 cm encapsulated fluid collection lateral to the left greater trochanter. This is of unc ertain if any clinical significance. Differential considerations include abscess or hematoma. Pleas e correlate clinically. 7. Diffuse mild thickening of the wall of the urinary bladder. This can be seen with cystitis or chr onic bladder outlet obstruction. Please correlate clinically. RADIATION DOSE DELIVERED: Total DLP DATA REPOSITORY: All CT scans at this facility are submitted to the National Radiology Data Registry (NRDR) Dose Index Registry (DIR) with the [employer] (ACR). RADIATION OPTIMIZATION: All CT scans at this facility use at least one of these dose optimization te chniques: automated exposure control; mA and/or kV adjustment per patient size (includes targeted exa ms where dose is matched to clinical indication); or iterative reconstruction.
[2023-10-28] MEDS: MULTIVITAMIN 10 ML, THIAMINE 100 MG, FOLIC ACID 1 MG in DEXTROSE 5%-0.45% SALINE 1,000 ML 42 ML IV ×2 (05:23→10:08)
[2023-10-28 05:26] LABS: NT-proBNP 16 pg/mL (<300)
[2023-10-28 05:28] LABS: Lipase > 375 U/L (16-77)
[2023-10-28 05:32] LABS: BE (Venous) -9 mmol/L (-2-3); HCO3 (Venous) 17 mmol/L (23-28); O2 Sat (Venous) 62 %; TCO2 (Venous) 15 mmol/L (24-29); pCO2 (Venous) 28 mmHg (41-51); pH (Venous) 7.38 (7.31-7.41); pO2 (Venous) 33 mmHg
[2023-10-28 05:35] LABS: Lactate 4.9 mmol/L (0.6-1.4)
[2023-10-28 05:49] LABS: Salicylate < 2.8 mg/dL (<2.8)
[2023-10-28 05:56] LABS: Acetaminophen < 2 ug/mL (10-30)
[2023-10-28] MEDS: Normal Saline 1,000 ML 1000 ML IV (06:10)
[2023-10-28] MEDS: Omnipaque 350 MG/ML 100 ML BTL IJ (06:13)
[2023-10-28] MEDS: Normal Saline Flush 10 ML SYR IVP ×4 (06:14→21:13)
[2023-10-28] MEDS: Normal Saline - Diluent 50 ML VIAL IJ (06:14)
[2023-10-28] MEDS: MORPHine 4 MG/ML SYR IVP ×2 (06:27→11:22)
--- NOTE | 2023-10-28 06:45 | DI.VRAD_ITS ---
PROCEDURE INFORMATION: Exam: XR Chest Exam date and time: 10/28/2023 4:56 AM Age: 48 years old Clinical indication: Chest pressure and chest wall pain; Additional info: Chest pain TECHNIQUE: Imaging protocol: Radiologic exam of the chest. Views: 2 views. COMPARISON: CR XR RIBS RT W PA LAT CHEST 09/22/2023 6:35 PM FINDINGS: Lungs: Unremarkable. No consolidation. Pleural spaces: Unremarkable. No pleural effusion. No pneumothorax. Heart/Mediastinum: Unremarkable. No cardiomegaly. Bones/joints: Unremarkable. IMPRESSION: No acute cardiopulmonary findings. Dictated and Authenticated by: Austen Martinez MD. Ordering:JAZMIN Ashraf MD
--- NOTE | 2023-10-28 06:55 | DI.VRAD_ITS ---
PROCEDURE INFORMATION: Exam: CTA Chest With Contrast CTA Abdomen With Contrast Exam date and time: 10/28/2023 5:56 AM Age: 48 years old Clinical indication: Pain and abnormal findings; Abnormal diagnostic tests; Elevated d-dimer; Chest wall pain and sternal or substernal pain; Abnormal lab test; Other: Elevated lipase; Abdominal pain and other: Substernal pain; Generalized; Additional info: Chest pain, + dimer, substernal pain, elevated lipase TECHNIQUE: Imaging protocol: Computed tomographic angiography of the chest with contrast. Exam focused on the arteries. Computed tomographic angiography of the abdomen with contrast. Exam focused on the arteries. 3D rendering (Not supervised by radiologist): MIP and/or 3D reconstructed images were created by the technologist. Contrast material: OMNI 350; Contrast volume: 100 ml; Contrast route: INTRAVENOUS (IV); COMPARISON: CT CHEST PE ABD PELVIS W 07/05/2020 1:30 AM FINDINGS: VASCULATURE: Pulmonary arteries: No luminal defect to suggest large pulmonary embolus. Aorta: Minimal scattered atherosclerotic disease of the aortic arch and the major superior branches. Normal appearing caliber of the aortic root and visualized intrathoracic aorta. Mild scattered atherosclerotic disease of the lower abdominal aorta and its major branches. Celiac trunk and mesenteric arteries: No occlusion or significant stenosis. Renal arteries: No occlusion or significant stenosis. CHEST: Lungs: [id number]-left paraseptal emphysematous change, correlate with history of smoking. Pleural spaces: Unremarkable. No pneumothorax. No pleural effusion. Heart: Unremarkable. No cardiomegaly. No pericardial effusion. Coronary arteries: Moderate calcified atherosclerotic disease of the left anterior descending artery. Mediastinal space: Circumferential thickening of the distal esophagus, correlate with history of GERD. ABDOMEN AND PELVIS: Liver: Diffuse hepatic steatosis. Gallbladder and bile ducts: Distended gallbladder. Pancreas: Circumferential fat stranding about the pancreas, the parenchyma is uniformly enhancing. No focal fluid collection. No visualized vascular complications of pancreatic inflammation. Nonspecific punctate calcification is appreciated along the posterior aspect of the pancreatic head, may represent prior sequela of inflammation. Spleen: Unremarkable. No splenomegaly. Adrenal glands: Unremarkable. No mass. Kidneys and ureters: Benign anterior left upper renal pole cyst. Stomach and bowel: Mild dilation upper quadrant small bowel with air-fluid level suggesting focal ileus due to adjacent pancreatic inflammation. Minimal diverticulosis without evidence of diverticulitis. Intraperitoneal space: Small amount of ascites is appreciated anteriorly along the anterior renal fascia. Urinary bladder: Bladder is distended without focal wall abnormality. Lymph nodes: Unremarkable. No enlarged lymph nodes. Bones/joints: Mild degenerative changes of the visualized osseous structures. Right femoroacetabular arthroplasty without evidence for acute surgical complication. Soft tissues: Unremarkable. IMPRESSION: 1. Findings suggestive of acute pancreatitis without evidence for necrosis. Mild left anterior renal fascia ascites, no focal fluid collection. No vascular complications. 2. Likely focal ileus of the left upper quadrant small bowel due to pancreatic inflammation. 3. No pulmonary embolus. No acute vascular findings. 4. Additional findings as above. Dictated and Authenticated by: Austen Martinez MD. Ordering:JAZMIN Ashraf MD
--- NOTE | 2023-10-28 07:12 | W.PM.HP.N ---
Date of service: 10/28/23 Time of Service: 09:32 Assessment and Plan Assessment and plan (1) Alcoholic pancreatitis: Status: Acute Assessment and plan: - Patient presented with epigastric pain that was found to be due to pancreatitis with a lipase greater than 375 and evidence of pancreatitis on CT abdomen/pelvis -Patient received IV morphine in the emergency department which helped with his pain -Will continue as needed IV morphine, Tylenol, ibuprofen -Clear liquid diet at this time -As needed Zofran for nausea and vomiting (2) Alcohol withdrawal: Status: Resolved Assessment and plan: - Patient presented with alcohol withdrawal with initial CIWA of 25 -He was given a IV loading dose of phenobarbital and repeat CIWA was 10 -Given improvement with the initial dose of IV, will continue phenobarbital protocol with as needed p.o. dosing -Will continue to monitor CIWA scores Qualifiers: Complication of substance-induced condition: uncomplicated Qualified Code(s): F10.230 - Alcohol dependence with withdrawal, uncomplicated History of Present Illness Narrative: 48-year-old male with past medical history of alcohol abuse and alcohol withdrawal presented the emergency department with abdominal/chest pain. Patient states similar to previous episodes of alcohol withdrawal however he has not experienced this chest/abdominal pain before which she describes as substernal/epigastric, tight and sharp but has been constant and getting worse since 8 PM the previous evening and is not associated with shortness of breath, fever or vomiting though he does have some mild nausea. In the emergency department the patient was noted as having normal vital signs, but did appear to be in withdrawal and had an initial CIWA score of 25 for which he was given IV phenobarbital. Additionally, patient's CBC and CMP were relatively unremarkable with the exception of an anion gap which was likely due to alcohol as patient's alcohol level was 8.4. However, patient also had an elevated lipase that was greater than 375, and CT abdomen pelvis showed some stranding of the pancreas consistent with pancreatitis. On recheck patient CIWA was significantly improved with 2 at 10. At which time emergency room physician paged hospitalist for admission for patient with acute alcoholic pancreatitis and alcohol withdrawal. Review of Systems All systems reviewed & are unremarkable except as noted in HPI and below PFSH All Active Problems (Updated 10/28/23 @ 09:37 by Gustavo Zuniga MD) Alcoholic pancreatitis (Acute) Trochanteric bursitis, right hip (Acute) Avascular necrosis of bone of left hip (Acute) Chest pain (Acute) due to ETOH Hepatic steatosis (Acute) COVID-19 ruled out (Acute) Tobacco abuse (Acute) Impairment of balance (Acute) Chronic vertigo (Acute) Electrolyte and fluid disorder (Acute) Surgical History 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) Cyst of right upper eyelid Family History Maternal Grandfather Alcohol abuse Maternal Uncle Alcohol abuse Social History Smoking/Tobacco Use Status: Current every day Tobacco Type: cigarettes Smoking packs per day: 1 Smoking cigarettes per day: 20.0 Years smoked: 25 Smoking pack-years: 25.00 Smoking risk assessment performed?: Yes Alcohol Intake: current Alcohol Intake frequency: 3 or more drinks per day Alcohol type: beer and hard liquor Details: last drink was 2 weeks ago Drug use: Never Substance use type: does not use Details: Last ETOH 10/26 Housing: 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 Meds Allergies and Home Medications Allergies Allergy/AdvReac Type Severity Reaction Status Date / Time No Known Allergies Allergy Unverified 10/28/23 04:52 Home Medications Medication Instructions Recorded Confirmed Type sildenafil 50 mg tablet 50 mg PO ONCE PRN 10/28/23 10/28/23 History Exam Narrative Exam Narrative: Ill-appearing young gentleman laying in bed in mild distress due to abdominal pain, ANO x 4, heart regular rhythm, lungs clear to auscultation bilaterally, abdomen soft, tender in appendectomy gastric region but without rebound or guarding Results Labs 10/28/23 04:34 10/28/23 04:34 Labs: Laboratory Results - last 24 hr 10/28/23 10/28/23 10/28/23 04:34 05:30 07:24 WBC 10.87 H RBC 4.00 L Hgb 14.0 Hct 39.6 L MCV 99 H MCH 35.0 H MCHC 35.4 RDW 13.1 Plt Count 116 L MPV 9.3 Immature Gran % 0.5 Neutrophils % 81.3 Lymphocytes % 9.7 Monocytes % 7.5 Eosinophils % 0.4 Basophils % 0.6 Nucleated RBC % 0.0 Absolute Neutrophils 8.84 H Absolute Lymphocytes 1.05 L Absolute Monocytes 0.82 H Absolute Eosinophils 0.04 Absolute Basophils 0.07 D-Dimer 2604 H VBG pH 7.38 VBG pCO2 28 L VBG pO2 33 VBG HCO3 17 L VBG Total CO2 15 L VBG O2 Saturation 62 VBG Base Excess -9 L VBG Lactate 4.9 H* Sodium 133 L Potassium 4.0 Chloride 92 L Carbon Dioxide 14.9 L Anion Gap 26.1 H BUN 6 L Creatinine 1.0 Est GFR (CKD-EPI 2020) 93.42 Glucose 129 H Calcium 9.3 Phosphorus 2.1 L Magnesium 1.6 L Total Bilirubin 1.3 H AST 123 H ALT 79 H Alkaline Phosphatase 83 Troponin I < 50 Cancelled NT-Pro-B Natriuret Pep 16 Total Protein 8.4 H Albumin 4.3 Lipase > 375 H Salicylates < 2.8 Acetaminophen < 2 Ethyl Alcohol 8.4 Last Vital Signs Temp 99 F 10/28/23 04:27 Pulse 71 10/28/23 06:46 Resp 16 10/28/23 06:46 BP 140/72 10/28/23 06:46 Pulse Ox 98 10/28/23 06:46 PAWSS Have you Been Recently Intoxicated or Drunk Within the Last 30 days?: Yes Have you Ever Experienced Previous Episodes of Alcohol Withdrawal?: Yes Have you ever Experienced Withdrawal Seizures?: No Have you ever Experienced Delirium Tremens(DT)s?: Yes Have you ever undergone Alcohol Rehabilitation Treatment (i.e, inpt ot outpatient treatment programs)?: No Have you ever Experienced Blackouts?: Yes Have you ever Combined Alcohol with other Downers within the last 90 days?: No Have you ever Combined Alcohol with any other Substance of Abuse during the last 90 days?: No Positive Blood Alcohol level on Presentation? [PCS.BAL]: No Evidence of Increased Autonomic Activity (i.e. HR>120, tremor, sweating, agitation, nausea)?: Yes Result: 5 Time Spent Time spent with Patient: >75 minutes Time was spent: preparing to see the patient(eg.review tests), obtaining and/or reviewing [facility], ordering medications,tests, procedures, referring, communicating with other health childcare worker, indepentently interpreting results, counseling the patient and care coordination
[2023-10-28] MEDS: MORPHine 4 MG/ML SYR 2 MG IVP (07:23)
[2023-10-28 07:24] LABS: Lactate 2.5 mmol/L (0.6-1.4)
[2023-10-28 08:20] LABS: Bilirubin Small (Negative); Blood Trace-intact (Negative); Clarity Clear (Clear); Glucose Negative (Negative); Ketones >=160 mg/dL (Negative); Leukocyte Esterase Negative (Negative); Nitrite Negative (Negative); Specific Gravity 1.015 (1.005-1.025); Urobilinogen 0.2 mg/dL (Up to 0.2)
[2023-10-28 08:27] LABS: Bacteria Negative HPF (Negative); Casts Negative LPF (Negative); Crystals Negative HPF (Negative); Epithelial Cells Negative HPF (Negative); Mucus Trace (Negative); Other Cells Negative (Negative); WBC 0-2 HPF (0-5)
[2023-10-28 08:28] LABS: C & S Indicated? No
[2023-10-28] MEDS: Thiamine 100 MG TAB PO (09:02)
[2023-10-28] MEDS: Enoxaparin 40 MG/0.4 ML SYR SC (09:02)
[2023-10-28] MEDS: Multivitamin TAB 1 TAB PO (09:02)
[2023-10-28] MEDS: Acetaminophen 325 MG TAB PO ×3 (09:02→17:43)
[2023-10-28] MEDS: Folic Acid 1 MG TAB PO (09:02)
[2023-10-28] MEDS: Ibuprofen 600 MG TAB PO ×3 (10:06→21:11)
--- NOTE | 2023-10-28 10:47 | INITIAL_ITS ---
Date of service: 10/28/23 Time of Service: 10:47 Care Management Initial Assmt Initial Assessment REASON FOR HOSPITALIZATION:: alcoholic pancreatitis PREVIOUS FUNCTIONAL STATUS/SOCIAL/FAMILY SUPPORTS:: Paul lives alone in an apartment in [place], [place] with his dog Gregory. 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 Paul does not have any children. His 2 strongest supports are his mother Caitlyn and a friend Mariam Ledesma. Paul is independent at baseline and does not receive any community services. CURRENT FUNCTIONAL STATUS:: Paul was sitting up in bed when CM met with him. He stated that he is feeling much better than when he arrived. His initial CIWA score was 25 and he was medicated with a loading dose of phenobarbital. Paul does not believe he has a history of seizures when withdrawing. He did inform CM that he buys vodka by the half gallon and drinks about 1/2 of it per day. Paul agreed to see a Janitor Supervisor and CM made the referral. [facility] this afternoon. Paul shared that he is not sure if he wants to do an inpatient program but definitely wants to reconnect with AA. Paul also identified challenges paying his rent and heating his apartment. CM sent a referral to [facility] to assist with those needs as well as to determine if his [place] Medicaid is active. Paul believes it is but Access was unable to verify active coverage. ADVANCE DIRECTIVES:: none Has patient been provided with info about the portal/API?: Yes Did the patient sign up for the portal?: Yes CODE STATUS:: Full Code INSURANCE COVERAGE / FINANCIAL ISSUES:: self pay CURRENT HOME/COMMUNITY SERVICES/EQUIPMENT:: Paul is not sure but thinks he may have had some fuel assistance earlier this winter. PRIMARY CARE PHYSICIAN:: Kiana Monge POTENTIAL DISCHARGE NEEDS:: follow up with PCP and plan of care PATIENT/FAMILY EDUCATION NEEDS:: Review of discharge instructions, activity, limitations, follow up plan, discuss Ask Me Three TRANSPORTATION:: via [facility] PLAN:: Anticipate Paul will be discharged home with no new services. He will follow up with his Janitor Supervisor, PCP and plan of care and transport via [facility]. CM will follow and support discharge needs. PFSH All Active Problems (Updated 10/28/23 @ 09:37 by Gustavo Zuniga MD) Alcoholic pancreatitis (Acute) Trochanteric bursitis, right hip (Acute) Avascular necrosis of bone of left hip (Acute) Chest pain (Acute) due to ETOH Hepatic steatosis (Acute) COVID-19 ruled out (Acute) Tobacco abuse (Acute) Impairment of balance (Acute) Chronic vertigo (Acute) Electrolyte and fluid disorder (Acute) Surgical History 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) Cyst of right upper eyelid Family History Maternal Grandfather Alcohol abuse Maternal Uncle Alcohol abuse Social History Smoking/Tobacco Use Status: Current every day Tobacco Type: cigarettes Smoking packs per day: 1 Smoking cigarettes per day: 20.0 Years smoked: 25 Smoking pack- years: 25.00 Smoking risk assessment performed?: Yes Alcohol Intake: current Alcohol Intake frequency: 3 or more drinks per day Alcohol type: beer and hard liquor Details: last drink was 2 weeks ago Drug use: Never Substance use type: does not use Details: Last ETOH 10/26 Housing: 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 SDOH(Care Management) Screening Will the Patient Participate in the Screening?: Yes Do you worry about having a steady place to live?: yes Problems where you live: pests such as bugs, ants or mice, mold, lack of heat, smoke detectors missing or not working, Carbon monoxide detectors missing or not working and other In the past 12 months, have you had to go without electric, gas, oil or water in your home?: no Have you or anyone in your house had to go without enough food to eat?: yes Has lack of transportation kept you from medical appointments or from doing things needed for daily living?: no Has anyone in your support network made you feel unsafe for any reason?: no Social Determinants of Health Comments(SDOH Details): needs help with rent and gas Health Related Social Needs Health related social needs: inadequate housing(Z59.1), housing instability, housed, with risk of homelessness(Z59.811) and food insecurity(Z59.41)
[2023-10-28] MEDS: Normal Saline 500 ML IV (11:50)
[2023-10-28] MEDS: PHENobarbital 130 MG/ML VIAL IVP (11:53)
--- NOTE | 2023-10-28 12:09 | PHA.REVIEW2 ---
Pharmacy Admission Review Admission Clinical Review Admission Pharmacy Review: Alcoholic pancreatitis (Acute) No Known Allergies Allergy (Unverified 10/28/23 04:52) Resuscitation Status Full Code Height 5 ft 6 in Weight 72.575 kg Pharmacy Admission Review Renal Dosing Renal Dosing: BUN 6 mg/dL (7-18) L 10/28/23 04:34 Creatinine 1.0 mg/dL (0.70-1.30) 10/28/23 04:34 Medications needing adjustments: Reviewed (CrCl 93.74 mL/min) Anticoagulation Anticoagulation: Hgb 14.0 g/dL (13.5-17.5) 10/28/23 04:34 Hct 39.6 % (40.0-50.0) L 10/28/23 04:34 Plt Count 116 10^3/uL (130-400) L 10/28/23 04:34 Creatinine 1.0 mg/dL (0.70-1.30) 10/28/23 04:34 DVT Prophylaxis: Reviewed Medications: Enoxaparin (40mg q24h) Opiate Usage Evaluate Pain Scale/Pains Meds: Reviewed (PRN morphine) Scheduled Bowel Reg ordered if on Opiates?: No (PRN docusate/Miralax) Relevant Labs Relevant Labs: Sodium 133 mmol/L (136-145) L 10/28/23 04:34 Potassium 4.0 mmol/L (3.5-5.1) 10/28/23 04:34 Chloride 92 mmol/L (98-107) L 10/28/23 04:34 Phosphorus 2.1 mg/dL (2.6-4.7) L 10/28/23 04:34 Magnesium 1.6 mg/dL (1.8-2.4) L 10/28/23 04:34 Electrolytes, C-Reactive P, ESR: Reviewed (Na 133, Phos 2.1, Mag 1.6, WBC 10.87, AST/ALT 123/79, glucose 129) Cardiac Review Cardiac Review: Troponin I Cancelled 10/28/23 07:24 NT-Pro-B Natriuret Pep 16 pg/mL (<300) 10/28/23 04:34 Blood Pressure 95/55 1148 Blood Pressure 146/80 0824 Blood Pressure 146/80 0824 Blood Pressure 144/76 0731 Blood Pressure 152/71 0715 Blood Pressure 130/77 0700 Blood Pressure 140/72 0646 Blood Pressure 146/87 0631 Blood Pressure 151/80 0616 Blood Pressure 142/90 0610 Blood Pressure 137/84 0532 Blood Pressure 141/83 0445 Blood Pressure 134/78 0432 Blood Pressure 134/78 0437 BP, HR, EF%: Reviewed (BP 95/55, HR WNL) QTc Review QTc: Reviewed (495 from 10/28/23) IV to PO Switch IV Medications: Reviewed (Banana bag and PRN phenobarbital) Home Meds Home Med List reviewed: Reviewed Relevent Home Meds Not ordered & why?: Sildenafil (PRN) Current Meds Current Medication Order Review: Reviewed Comments: Phenobarbital for alcohol withdrawal Soft stop: 957mg Hard stop: 1276mg So far: 580mg total (did not receive 3rd loading dose of 190mg, aware and said okay to hold off and just use the PRN IVP) Last CIWA score was 10 at 1141 (IVP 130mg given)
--- NOTE | 2023-10-28 16:45 | RT.EKG_ITS ---
APPROVED REPORT Exam: Resting ECG Reason for Exam: rule out st elevation Patient Location: I HR:64 bpm ECG Measurements Heart Rate 64 AXIS MT 160 P 15 QRSd 85 QRS 46 QT 423 T 65 QTc 437 Conclusion Sinus rhythm...normal P axis, V-rate 50- 99 Normal Electrocardiogram
[2023-10-29 03:41] VITALS: BP 135/81; PULSE 76; RESP 18; TEMP 37.3; O2SAT 99
[2023-10-29] MEDS: Ibuprofen 600 MG TAB PO ×4 (03:54→21:28)
[2023-10-29 06:26] LABS: Abs Immature Grans 0.02 10^3/uL (0.0-0.06); Absolute Basophil Count 0.03 10^3/uL (0.0-0.2); Absolute Eosinophil Count 0.24 10^3/uL (0.0-0.7); Absolute Lymphocyte Count 1.93 10^3/uL (1.2-3.4); Absolute Monocyte Count 0.42 10^3/uL (0.1-0.8); Absolute Neutrophil Count 3.92 10^3/uL (1.2-6.7); Basophils % 0.5; Eosinophils % 3.7; HCT 34.7 % (40.0-50.0); HGB 12.4 g/dL (13.5-17.5); Immature Grans % 0.3; Lymphocytes % 29.4; MCH 34.4 pg (27.0-33.0); MCHC 35.7 % (32.0-36.0); MCV 96 fL (80-95); MPV 9.9 fL (8.0-11.0); Monocytes % 6.4; Neutrophils % 59.7; RDW 12.9 % (11.8-14.1); RDW-SD 46.2 fL; WBC 6.56 10^3/uL (4.4-10.8)
[2023-10-29] MEDS: Normal Saline 10 ML VIAL IJ (06:29)
[2023-10-29 06:38] LABS: Anion Gap 13.2 mmol/L (3-11); BUN 2 mg/dL (7-18); CO2 23.8 mmol/L (21.0-32.0); CREATININE 0.6 mg/dL (0.70-1.30); Calcium 9.1 mg/dL (8.5-10.1); Chloride 96 mmol/L (98-107); Estimated GFR 119.82 (mL/min/1.73m2); Glucose 93 mg/dL (74-106); Magnesium 1.5 mg/dL (1.8-2.4); Sodium 133 mmol/L (136-145)
[2023-10-29 06:44] LABS: Diff Comment Diff Reviewed; Platelet Count 76 10^3/uL (130-400); RBC Morphology Normal
[2023-10-29] MEDS: Enoxaparin 40 MG/0.4 ML SYR SC (08:54)
[2023-10-29] MEDS: Normal Saline Flush 10 ML SYR IVP ×2 (08:54→20:14)
[2023-10-29] MEDS: Folic Acid 1 MG TAB PO (08:55)
[2023-10-29] MEDS: Multivitamin TAB 1 TAB PO (08:55)
[2023-10-29] MEDS: Thiamine 100 MG TAB PO (08:55)
--- NOTE | 2023-10-29 09:41 | W.PM.PROGNOT ---
Date of Service Date of service: 10/29/23 Time of Service: 09:41 Assessment and Plan Assessment and plan (1) Alcoholic pancreatitis: Status: Acute Assessment and plan: - Patient presented with epigastric pain that was found to be due to pancreatitis with a lipase greater than 375 and evidence of pancreatitis on CT abdomen/pelvis -Patient received IV morphine in the emergency department which helped with his pain -Will continue as needed IV morphine, Tylenol, ibuprofen -Clear liquid diet at this time though will advance to full liquids this evening -As needed Zofran for nausea and vomiting (2) Alcohol withdrawal: Status: Resolved Assessment and plan: - Patient presented with alcohol withdrawal with initial CIWA of 25 -He was given a IV loading dose of phenobarbital and repeat CIWA was 10 -Given improvement with the initial dose of IV, will continue phenobarbital protocol with as needed p.o. dosing -Will continue to monitor CIWA scores Qualifiers: Complication of substance-induced condition: uncomplicated Qualified Code(s): F10.230 - Alcohol dependence with withdrawal, uncomplicated Subjective Subjective Interval history since last seen: Patient states that he feels significantly better this morning compared to yesterday. However, he is still experiencing some increase in abdominal pain after p.o. intake. Exam Narrative Exam Narrative: Ill-appearing young gentleman laying in bed in mild distress due to abdominal pain, ANO x 4, heart regular rhythm, lungs clear to auscultation bilaterally, abdomen soft, tender in appendectomy gastric region but without rebound or guarding Objective Last Vital Signs Temp 99.1 F 10/29/23 03:41 Pulse 76 10/29/23 03:41 Resp 18 10/29/23 03:41 BP 135/81 10/29/23 03:41 Pulse Ox 99 10/29/23 03:41 Laboratory Results - last 24 hr 10/29/23 06:02 WBC 6.56 RBC 3.60 L Hgb 12.4 L Hct 34.7 L MCV 96 H MCH 34.4 H MCHC 35.7 RDW 12.9 Plt Count 76 L MPV 9.9 Immature Gran % 0.3 Neutrophils % 59.7 Lymphocytes % 29.4 Monocytes % 6.4 Eosinophils % 3.7 Basophils % 0.5 Nucleated RBC % 0.0 Absolute Neutrophils 3.92 Absolute Lymphocytes 1.93 Absolute Monocytes 0.42 Absolute Eosinophils 0.24 Absolute Basophils 0.03 RBC Morphology Normal Sodium 133 L Potassium 3.0 L D Chloride 96 L Carbon Dioxide 23.8 Anion Gap 13.2 H BUN 2 L Creatinine 0.6 L Est GFR (CKD-EPI 2020) 119.82 Glucose 93 Calcium 9.1 Magnesium 1.5 L PAWSS Have you Been Recently Intoxicated or Drunk Within the Last 30 days?: Yes Have you Ever Experienced Previous Episodes of Alcohol Withdrawal?: Yes Have you ever Experienced Withdrawal Seizures?: No Have you ever Experienced Delirium Tremens(DT)s?: Yes Have you ever undergone Alcohol Rehabilitation Treatment (i.e, inpt ot outpatient treatment programs)?: No Have you ever Experienced Blackouts?: Yes Have you ever Combined Alcohol with other Downers within the last 90 days?: No Have you ever Combined Alcohol with any other Substance of Abuse during the last 90 days?: No Positive Blood Alcohol level on Presentation? [PCS.BAL]: Yes Evidence of Increased Autonomic Activity (i.e. HR>120, tremor, sweating, agitation, nausea)?: Yes Result: 6 Time Spent with Patient Time Spent with Patient: >50 minutes Time was spent: preparing to see the patient(eg.review tests), obtaining and/or reviewing separately otained hiistory, ordering medications,tests, procedures, referring, communicating with other health medicare insurance specialist, indepentently interpreting results, counseling the patient and care coordination
[2023-10-29 12:09] VITALS: BP 121/85; PULSE 75; RESP 19; TEMP 37.1; O2SAT 97
[2023-10-29 16:02] VITALS: BP 119/85; PULSE 72; RESP 19; TEMP 36.4; O2SAT 95
[2023-10-29 20:15] VITALS: BP 153/89; PULSE 63; RESP 14; O2SAT 98
[2023-10-30 01:53] VITALS: BP 131/86; PULSE 68; RESP 14; TEMP 37.3; O2SAT 97
[2023-10-30 02:09] LABS: Abs Immature Grans 0.01 10^3/uL (0.0-0.06); Absolute Basophil Count 0.04 10^3/uL (0.0-0.2); Absolute Eosinophil Count 0.17 10^3/uL (0.0-0.7); Absolute Lymphocyte Count 1.91 10^3/uL (1.2-3.4); Absolute Monocyte Count 0.62 10^3/uL (0.1-0.8); Absolute Neutrophil Count 3.13 10^3/uL (1.2-6.7); Basophils % 0.7; Eosinophils % 2.9; HCT 40.5 % (40.0-50.0); HGB 14.8 g/dL (13.5-17.5); Immature Grans % 0.2; Lymphocytes % 32.5; MCH 34.9 pg (27.0-33.0); MCHC 36.5 % (32.0-36.0); MCV 96 fL (80-95); MPV 10.9 fL (8.0-11.0); Monocytes % 10.5; Neutrophils % 53.2; RBC 4.24 10^6/uL (4.36-5.78); RDW 12.9 % (11.8-14.1); RDW-SD 45.5 fL; WBC 5.88 10^3/uL (4.4-10.8)
[2023-10-30 02:19] LABS: Platelet Count 68 10^3/uL (130-400)
[2023-10-30 02:20] LABS: Anion Gap 15.3 mmol/L (3-11); BUN 1 mg/dL (7-18); CO2 23.7 mmol/L (21.0-32.0); CREATININE 0.7 mg/dL (0.70-1.30); Calcium 9.7 mg/dL (8.5-10.1); Chloride 96 mmol/L (98-107); Diff Comment Diff Reviewed; Estimated GFR 114.37 (mL/min/1.73m2); Glucose 93 mg/dL (74-106); Potassium 3.3 mmol/L (3.5-5.1); RBC Morphology Normal; Sodium 135 mmol/L (136-145)
[2023-10-30 02:26] LABS: Magnesium 1.7 mg/dL (1.8-2.4)
[2023-10-30] MEDS: Potassium Chloride 20 MEQ TABCR 40 MEQ PO ×2 (04:06→08:00)
[2023-10-30] MEDS: MAGNESIUM SULFATE 2 GM/50 ML BAG IVPB (04:06)
[2023-10-30 07:07] VITALS: BP 115/77; PULSE 65; RESP 18; TEMP 36.3; O2SAT 97
[2023-10-30] MEDS: Folic Acid 1 MG TAB PO (08:00)
[2023-10-30] MEDS: Thiamine 100 MG TAB PO (08:00)
[2023-10-30] MEDS: Multivitamin TAB 1 TAB PO (08:00)
[2023-10-30] MEDS: Normal Saline Flush 10 ML SYR IVP ×3 (08:00→23:37)
--- NOTE | 2023-10-30 11:00 | CMDISCH_ITS ---
Date of service: 10/30/23 LACE Index Scoring Tool Questions: Length of Stay (in days): 2 E.D. Visits: 6 Care Management Discharge Plan Reason for Hospitalization: alcoholic pancreatitis Discharge Plan: Paul will return home via private vehicle. He will follow up with his PCP and plan for care as prescribed. He will f/u with [employer]HA[facility] regarding health insurance. Patient/Family Education Needs: Review discharge instructions and discuss Ask Me Three SDOH Health Related Social Needs: Health related social needs inadequate housing, risk o f homeless, food insecurity Health related social needs: inadequate housing(Z59.1), housing instability, housed, with risk of homelessness(Z59.811) and food insecurity(Z59.41)
[2023-10-30 11:07] VITALS: BP 121/82; PULSE 79; RESP 18; TEMP 36.3; O2SAT 98
--- NOTE | 2023-10-30 12:31 | PDOC.CMPRO ---
Date of service: 10/30/23 Care Management Progress Note Progress Note Text Progress Note Text: S/O: Paul was sitting slightly up in bed when meeting with CM. Paul said he was out of work and found himself drinking a lot to where he was no longer concerned with things like his heat. He is not sure if he had a delivery or not this winter season and thought he had health insurance but is finding that may not be the case. CM confirmed a f/u was completed with [facility]HAAD who does not show him active with Medicaid at this time and will assist him with this. He said he has a few close friends that could be supportive in his recovery but they have busy lives and don't live local. He says his parents and sister just think he is drinking even at times he is not and he says he had a bad experience with a sponsor in the past so would need to have a different sponsor this time. He did confirm a field hockey coach had met with him over the weekend and he would like to continue to work with their services. Paul says hes unsteady on his feet and hopes to stay one more night. CM following. A: Paul is a 48 year old male admitted to [facility] 10/28/23 for alcohol withdrawl P: Paul will discharge home when medically cleared via the [facility] shuttle. He will follow up with his PCP and plan of care as prescribed. He will f/u with RASHAAD regarding health insurance and heating, as well as f/u with [facility]. CM following. SDOH(Care Management) Screening Will the Patient Participate in the Screening?: Yes Do you worry about having a steady place to live?: yes Problems where you live: pests such as bugs, ants or mice, mold, lack of heat, smoke detectors missing or not working, Carbon monoxide detectors missing or not working and other In the past 12 months, have you had to go without electric, gas, oil or water in your home?: no Have you or anyone in your house had to go without enough food to eat?: yes Has lack of transportation kept you from medical appointments or from doing things needed for daily living?: no Has anyone in your support network made you feel unsafe for any reason?: no Social Determinants of Health Comments(SDOH Details): needs help with rent and gas Health Related Social Needs Health related social needs: inadequate housing(Z59.1), housing instability, housed, with risk of homelessness(Z59.811) and food insecurity(Z59.41)
--- NOTE | 2023-10-30 12:52 | PGE_ITS ---
Date of Service Date of service: 10/30/23 Time of Service: 12:52 Assessment and Plan Assessment and plan (1) Alcoholic pancreatitis: Status: Acute Assessment and plan: Alcohol related. Patient reports that he drinks about half a gallon of vodka every 3 days. He decided to go cold turkey beginning last and started with symptoms last Monday. So far has responded well to treatment of his acute alcohol withdrawal with phenobarbital. he has had a total loading dose of 580 mg IV on 10/27 and has not required any prn iv or PO doses since then. Last dose was given at 11:53 a.m. on 10/27. He is showing no tremors, hallucinations, tachycardia or diaphoresis. I am concerned that his heart burn may actually be his pancreatitis although he seemed to tolerate his diet. His diet was increased this afternoon to regular foods. I will recheck his labs (bmp, liver panel, lipase). I will treat his heart burn w/ grasshopper/Aguilar cocktail i.e. mixture of antacid and viscous lidocaine and donnatol, to see if this relieves his heart burn. I will also start him protonix. Qualifiers: Chronicity: acute Acute pancreatitis complication: no infection or necrosis Qualified Code(s): K85.20 - Alcohol induced acute pancreatitis without necrosis or infection (2) Alcohol withdrawal: Status: Resolved Assessment and plan: as above. Qualifiers: Complication of substance-induced condition: uncomplicated Qualified Co de(s): F10.230 - Alcohol dependence with withdrawal, uncomplicated Subjective Subjective Interval history since last seen: Patient denies abdominal pain but says that after lunch he has had heartburn, burning over lower SS area/epigastrium. No nausea or vomiting. Exam Narrative Exam Narrative: Middle-age white male lying in bed no acute distress alert and orient x 3 Abdomen nondistended soft nontender to deep palpation no guarding no palpable masses organomegaly Neuro exam he is alert and oriented x 3 no tremors denies any hallucinations Objective Last Vital Signs Temp 36.3 C L 10/30/23 11:07 Pulse 79 10/30/23 11:07 Resp 18 10/30/23 11:07 BP 121/82 10/30/23 11:07 Pulse Ox 98 10/30/23 11:07 Laboratory Results - last 24 hr 03/11/24 03/11/24 01:45 02:05 WBC 5.88 RBC 4.24 L Hgb 14.8 D Hct 40.5 MCV 96 H MCH 34.9 H MCHC 36.5 H RDW 12.9 Plt Count 68 L MPV 10.9 Immature Gran % 0.2 Neutrophils % 53.2 Lymphocytes % 32.5 Monocytes % 10.5 Eosinophils % 2.9 Basophils % 0.7 Nucleated RBC % 0.0 Absolute Neutrophils 3.13 Absolute Lymphocytes 1.91 Absolute Monocytes 0.62 Absolute Eosinophils 0.17 Absolute Basophils 0.04 RBC Morphology Normal Sodium 135 L Potassium 3.3 L Chloride 96 L Carbon Dioxide 23.7 Anion Gap 15.3 H BUN 1 L Creatinine 0.7 Est GFR (CKD-EPI 2020) 114.37 Glucose 93 Calcium 9.7 Magnesium 1.7 L PAWSS Have you Been Recently Intoxicated or Drunk Within the Last 30 days?: Yes Have you Ever Experienced Previous Episodes of Alcohol Withdrawal?: Yes Have you ever Experienced Withdrawal Seizures?: No Have you ever Experienced Delirium Tremens(DT)s?: Yes Have you ever undergone Alcohol Rehabilitation Treatment (i.e, inpt ot outpatient treatment programs)?: No Have you ever Experienced Blackouts?: Yes Have you ever Combined Alcohol with other Downers within the last 90 days?: No Have you ever Combined Alcohol with any other Substance of Abuse during the last 90 days?: No Positive Blood Alcohol level on Presentation? [PCS.BAL]: Yes Evidence of Increased Autonomic Activity (i.e. HR>120, tremor, sweating, agitation, nausea)?: Yes Result: 6 Time Spent with Patient Time Spent with Patient: 25-34 minutes Time was spent: preparing to see the patient(eg.review tests), ordering medications,tests, procedures, referring, communicating with other health patient care secretary, indepentently interpreting results, counseling the patient and care coordination
[2023-10-30] MEDS: Pantoprazole 40 MG TABCR PO ×2 (13:29→19:21)
[2023-10-30 13:39] LABS: Magnesium 2.1 mg/dL (1.8-2.4); Potassium 3.5 mmol/L (3.5-5.1)
[2023-10-30 13:45] LABS: ALT 69 U/L (16-63); AST 128 U/L (15-37); Albumin 3.6 g/dL (3.4-5.0); Alkaline Phosphatase 70 U/L (46-116); Anion Gap 10.9 mmol/L (3-11); BUN 2 mg/dL (7-18); Bilirubin, Direct 0.4 mg/dL (0.0-0.2); Bilirubin, Total 1.1 mg/dL (0.2-1.0); CO2 26.1 mmol/L (21.0-32.0); CREATININE 0.7 mg/dL (0.70-1.30); Calcium 9.3 mg/dL (8.5-10.1); Chloride 98 mmol/L (98-107); Estimated GFR 114.37 (mL/min/1.73m2); Glucose 169 mg/dL (74-106); Lipase > 375 U/L (16-77); Potassium 3.5 mmol/L (3.5-5.1); Sodium 135 mmol/L (136-145); Total Protein 7.6 g/dL (6.4-8.2)
--- NOTE | 2023-10-30 15:41 | PT.INIE ---
PT Notes Visit Reasons: Etoh withdrawal, acute pancreatitis Physical Therapy Inpatient Initial Evaluation Date: 10/30/2023 Referring Doctor: Joesph Rubio MD PT Orders: PT CONSULT: Fall safety assessment Precautions: Activity as tolerated. Standard. Patient Profile/Admitting Diagnosis: Paul is a 48-year-old male with past medical history significant for EtOH abuse and withdrawal who presented to the ED on 10/28/2023 chest pain. Patient is admitted to the ICU for management of EtOH withdrawal and alcoholic pancreatitis. 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 Independent with all aspects of ADLs prior to admission. 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 Equipment Owned/DME: None Subjective: Lightheaded when he stood up. Needed to use FWW to be more stable, feels a little unsteady but better with walker. Prior Level of Function: Independent with all ADLs Current Level of Function: Mildly cautious with movement without AD OBJECTIVE: Observation: slow guarded movements, with limited head motions during gait, transfers and bed mobility Mental Status: A and O x 4 Vital Signs: WNL as monitored by nursing staff ROM: Right Upper Extremity: Shoulder Flexion WFL. Shoulder abduction WFL. Elbow flexion WFL. Wrist flexion WFL. Functional opening and closing of hand WFL. eft Upper Extremity: Shoulder Flexion WFL. Shoulder abduction WFL. Elbow flexion WFL. Wrist flexion WFL. Functional opening and closing of hand WFL. Right Lower Extremity: Hip flexion WFL. Hip abduction WFL. Knee flexion WFL. Ankle dorsiflexion WFL. Ankle plantarflexion WFL. Left Lower Extremity: Hip flexion WFL. Hip abduction WFL. Knee flexion WFL. Ankle dorsiflexion WFL. Ankle plantarflexion WFL. Strength: Right Upper Extremity: Shoulder flexors 4/5. Shoulder abductors 4/5. Elbow flexors 5/5. Elbow extensors 5/5. Train Dispatcher strong. Left Upper Extremity: Shoulder flexors 4/5. Shoulder abductors 4/5. Elbow flexors 5/5. Elbow extensors 5/5. Train Dispatcher strong. Right Lower Extremity: Hip flexors 4/5. Hip abductors 4/5. Knee flexors 5/5. Knee extensors 4/5. Ankle dorsiflexors 4/5. Ankle plantarflexors 5/5. Left Lower Extremity: Hip flexors 4/5. Hip abductors 4/5. Knee flexors 5/5. Knee extensors 4/5. Ankle dorsiflexors 4/5. Ankle plantarflexors 5/5. Bed Mobility/Transfers: Rolling modified independent Supine to sit modified independent Sit to supine modified independent Sit to stand stand by assist with FWW Stand to sit stand by assist with FWW Gait: Mildly ataxic and report of unsteadiness that was minimized with use of FWW. Covered a distance of at least 400 feet. Minimal shortness of breath. Niurka decreased. Minimal verbal cueing for AD management, overall safety. Stairs: Guided patient with safe and correct negotiation 6 x 4 inch steps and 4 x 6 inch steps with 1 step over step pattern requiring standby assist and minimal verbal safety. Balance: Static Sitting: Good Dynamic Sitting: Good Static Standing: Good Dynamic Standing: Fair Special Tests: Mobility Limitations Standardized Measure [facility] AM-PAC 6 clicks Basic Mobility Inpatient Short Form: Raw Score: 24 CMS Score: 0% deficit Informed Consent/Education: Patient was instructed in purpose of PT consult and plan of care. Agreeable to proceed with plan of care. ASSESSMENT: Patient presents with clinical signs and symptoms consistent with current/admitting diagnoses that have resulted to mobility limitations, gait instability, generalized weakness, and overall ADL decline as demonstrated by the following impairment level findings: 1. Impaired standing balance 2. Impaired activity tolerance Impairments are contributing to the following functional limitations: 1. Increased completion time for mobility ADL performance 2. Increased risk for falls Patient is assessed as a 75190 moderate complexity based on the following: History: 48-year-old male with past medical history as indicated above Examination: Demonstrable impairment above Presentation: Evolving Decision Makin moderate complexity Goals: Patient will demonstrate independent ambulation without AD for 600 feet with no symptoms with no SOB and LOB. Plan of Care/Treatment Plan: Patient will highly benefit from skilled physical therapy services including functional mobility training, bed mobility/transfer training, gait and balance training, therapeutic exercises, therapeutic activity, caregiver/staff/family education and training 1x/day, 7 days/week x 1 week. Plan of care has been reviewed with the ORCHESTRA MUSICIAN providing the service under Physical Therapy direction. Initiate Physical Therapy intervention for strengthening, bed mobility, transfers, gait, stairs, balance training, use of assistive device. Order DISCHARGE RECOMMENDATIONS: [] Home with no services [X] Home with services. Patient will benefit from home health PT services in order to progress mobility level using least restrictive assistive ambulatory device, assess home safety, identify additional equipment needs, and establish a functional maintenance program that will increase ability of patient to remain at home. 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 [] SNF for continued rehabilitation [] [] [facility] [] [] SNF versus LTC based on ability to participate and progress [] TREATMENT CODE/TIME: 04476 x 24 minutes for 1 unit (15:41-16:01). Thank you for the opportunity to participate in the care of this patient. Carey Trevino PT, DPT, CLT [facility] [place], [place]
[2023-10-30 16:33] VITALS: BP 106/74; PULSE 81; RESP 17; TEMP 36.9; O2SAT 97
[2023-10-30] MEDS: THIAMINE 500 MG in Normal Saline 100 ML 200 MG IVPB ×2 (17:26→23:37)
[2023-10-30 21:54] VITALS: BP 114/74; PULSE 67; RESP 16; TEMP 36.7; O2SAT 97
[2023-10-31 01:48] VITALS: BP 127/84; PULSE 69; RESP 20; TEMP 37.1; O2SAT 99
[2023-10-31 07:42] VITALS: BP 113/83; PULSE 71; RESP 18; TEMP 36.9; O2SAT 99
--- NOTE | 2023-10-31 08:32 | PT.INTREAT ---
PT Notes Visit Reasons: Etoh withdrawal, acute pancreatitis Date: 10/31/23 PRECAUTIONS: Activity as tolerated. Standard. SUBJECTIVE: Pt in bed awake, pt agrees to participate with therapy, looking forward to going home today. OBJECTIVE: ? PAIN: none reported VITALS: WNL? Therapeutic Activities 19243: Direct one-on-one instruction in dynamic activities to improve functional performance. ?? BED MOBILITY/TRANSFERS? Rolling L/R: independent Supine-sit: ?independent ? Sit-supine: ?independent ? Sit-stand: ?independent ? Stand-sit: ??inedependent ? Bed-Chair:? ?independent ? Chair-bed: independent Provided skilled cues and instruction on performance and technique throughout. Gait Training 42702o: Direct one-on-one instruction and skilled instruction in: Movement sequencing Turning and movement with proper form Provided verbal cues for equipment management and technique Provided instruction in gait pattern Patient education regarding pacing and breathing techniques to maximize activity tolerance? GAIT? Assistive Device: none? Weight bearing: FWB Assist: ?Indeependent ? Distance:??500'? Deviation: ?slow juanjo, low step height, short step length, looks downward ? STAIRS:? 6 x 4 inch steps and 4 x 6 inch steps with 1 step over step pattern requiring supervision ? ASSESSMENT:?Pt stable during gait training and stair negotiation training, does not need FWW for safety at home PLAN: [X] Home with services. Patient will benefit from home health PT services in order to progress mobility level using least restrictive assistive ambulatory device, assess home safety, identify additional equipment needs, and establish a functional maintenance program that will increase ability of patient to remain at home. TREATMENT CODE/TIME: 32204q0 15mins (8:00-8:15am)
[2023-10-31] MEDS: Nicotine 7 MG/24 HR PATCH TD (09:11)
[2023-10-31] MEDS: Pantoprazole 40 MG TABCR PO ×2 (09:12→20:02)
[2023-10-31] MEDS: Multivitamin TAB 1 TAB PO (09:12)
[2023-10-31] MEDS: Folic Acid 1 MG TAB PO (09:12)
[2023-10-31] MEDS: THIAMINE 500 MG in Normal Saline 100 ML 200 MG IVPB ×2 (09:13→15:54)
[2023-10-31] MEDS: Normal Saline Flush 10 ML SYR IVP ×3 (09:13→20:02)
--- NOTE | 2023-10-31 10:19 | W.PM.PROGNOT ---
Date of Service Date of service: 10/31/23 Time of Service: 10:19 Assessment and Plan Assessment and plan (1) Alcoholic pancreatitis: Status: Acute Assessment and plan: Continued symptoms and laboratory evidence of pancreatitis. Will keep him on no more than a full liquid diet for now. Repeat labs in the morning. If he still having continued abdominal pain tomorrow then I will consider reimaging his pancreas. His initial CT scan did not show any phlegmon such as pancreatic cyst or abscess. Professional time spent interviewing and examining patient, discussion of goals of care with hospital team (care management, nursing and consulting professionals) was 25 minutes. Qualifiers: Chronicity: acute Acute pancreatitis complication: no infection or necrosis Qualified Code(s): K85.20 - Alcohol induced acute pancreatitis without necrosis or infection (2) Alcohol withdrawal: Status: Resolved Assessment and plan: Resolved since completion of his phenobarbital protocol Qualifiers: Complication of substance-induced condition: uncomplicated Qualified Code(s): F10.230 - Alcohol dependence with withdrawal, uncomplicated Subjective Subjective Interval history since last seen: Paul had a setback yesterday in which he had increased epigastric pain. Initially described as heartburn however this did not resolve with use of antiacids. Repeat labs yesterday showed his lipase to be elevated. I backed off his diet to clear liquids. He has had no vomiting. Says he had a good bowel movement yesterday. I told Paul that I would advance him to full liquids at lunch but no further until his abdominal pain resolves. He had no further symptoms of alcohol withdrawal since completion of his phenobarbital protocol. Exam Narrative Exam Narrative: Alert and orient x 3 no acute distress Lungs are clear to auscultation Heart is regular rate and rhythm without murmur rub or gallop Abdomen normal bowel sounds soft some mild distention no guarding no rebound tenderness. He has some mild epigastric and left upper quadrant tenderness with deep palpation Objective Last Vital Signs Temp 36.9 C 10/31/23 07:42 Pulse 71 10/31/23 07:42 Resp 18 10/31/23 07:42 BP 113/83 10/31/23 07:42 Pulse Ox 99 10/31/23 07:42 Laboratory Results - last 24 hr 10/30/23 10/30/23 13:15 13:15 Sodium 135 L Potassium 3.5 3.5 Chloride 98 Carbon Dioxide 26.1 Anion Gap 10.9 BUN 2 L Creatinine 0.7 Est GFR (CKD-EPI 2020) 114.37 Glucose 169 H Calcium 9.3 Magnesium 2.1 Total Bilirubin 1.1 H Conjugated Bilirubin 0.4 H AST 128 H ALT 69 H Alkaline Phosphatase 70 Total Protein 7.6 Albumin 3.6 Lipase > 375 H PAWSS Have you Been Recently Intoxicated or Drunk Within the Last 30 days?: Yes Have you Ever Experienced Previous Episodes of Alcohol Withdrawal?: Yes Have you ever Experienced Withdrawal Seizures?: No Have you ever Experienced Delirium Tremens(DT)s?: Yes Have you ever undergone Alcohol Rehabilitation Treatment (i.e, inpt ot outpatient treatment programs)?: No Have you ever Experienced Blackouts?: Yes Have you ever Combined Alcohol with other Downers within the last 90 days?: No Have you ever Combined Alcohol with any other Substance of Abuse during the last 90 days?: No Positive Blood Alcohol level on Presentation? [PCS.BAL]: Yes Evidence of Increased Autonomic Activity (i.e. HR>120, tremor, sweating, agitation, nausea)?: Yes Result: 6 Time Spent with Patient Time Spent with Patient: 25-34 minutes Time was spent: preparing to see the patient(eg.review tests), ordering medications,tests, procedures, referring, communicating with other health healthcare representative, indepentently interpreting results, counseling the patient and care coordination
[2023-10-31 11:36] VITALS: BP 122/80; PULSE 77; RESP 18; TEMP 36.5; O2SAT 99
--- NOTE | 2023-10-31 13:05 | PDOC.CMPRO ---
Date of service: 10/31/23 Care Management Progress Note Progress Note Text Progress Note Text: S/O: Paul was sitting up in bed when talking with CM. He said he was all dressed this morning ready to be discharged when he was told from his nurse there was something found from his blood draw that had the MD concerned enough to have him stay longer. He said he doesnt mind staying he just was concerned his dog Gunner may run out of food if hes not discharged within the next day or so. He said he feels stronger today than he did yesterday and is eager to walk without a walker three laps when the hallways are not so busy. He says the pain he experienced was enough to remind him that he doesn't want to drink after being discharged and is eager to get back to work so he can keep himself busy. He says he is still wanting to connect with services when discharged that support his sobriety plan. CM following. A: Paul is a 48 year old male admitted to [facility] 10/28/23 for alcohol withdrawl P: Paul will discharge home when medically cleared via the RCT shuttle. He will follow up with his PCP and plan of care as prescribed. He will f/u with [facility] regarding health insurance and heating, as well as f/u with [facility]. CM following. SDOH(Care Management) Screening Will the Patient Participate in the Screening?: Yes Do you worry about having a steady place to live?: yes Problems where you live: pests such as bugs, ants or mice, mold, lack of heat, smoke detectors missing or not working, Carbon monoxide detectors missing or not working and other In the past 12 months, have you had to go without electric, gas, oil or water in your home?: no Have you or anyone in your house had to go without enough food to eat?: yes Has lack of transportation kept you from medical appointments or from doing things needed for daily living?: no Has anyone in your support network made you feel unsafe for any reason?: no Social Determinants of Health Comments(SDOH Details): needs help with rent and gas Health Related Social Needs Health related social needs: inadequate housing(Z59.1), housing instability, housed, with risk of homelessness(Z59.811) and food insecurity(Z59.41)
[2023-10-31 16:02] VITALS: BP 107/70; PULSE 79; RESP 18; TEMP 36.4; O2SAT 99
[2023-10-31 20:03] VITALS: BP 109/78; PULSE 74; RESP 19; TEMP 37; O2SAT 98
[2023-11-01 00:08] VITALS: BP 105/70; PULSE 63; RESP 19; TEMP 36.7; O2SAT 97
[2023-11-01] MEDS: THIAMINE 500 MG in Normal Saline 100 ML 200 MG IVPB ×4 (00:15→23:15)
[2023-11-01 07:06] LABS: Abs Immature Grans 0.04 10^3/uL (0.0-0.06); Absolute Basophil Count 0.06 10^3/uL (0.0-0.2); Absolute Eosinophil Count 0.18 10^3/uL (0.0-0.7); Absolute Lymphocyte Count 2.09 10^3/uL (1.2-3.4); Absolute Neutrophil Count 4.04 10^3/uL (1.2-6.7); Basophils % 0.8; Eosinophils % 2.5; HCT 38.6 % (40.0-50.0); HGB 13.6 g/dL (13.5-17.5); Immature Grans % 0.5; Lymphocytes % 28.6; MCHC 35.2 % (32.0-36.0); MCV 99 fL (80-95); MPV 10.8 fL (8.0-11.0); Monocytes % 12.3; Neutrophils % 55.3; RBC 3.89 10^6/uL (4.36-5.78); RDW 13.5 % (11.8-14.1); RDW-SD 49.1 fL; WBC 7.31 10^3/uL (4.4-10.8)
[2023-11-01 07:25] LABS: Diff Comment Diff Reviewed; Platelet Count 97 10^3/uL (130-400); RBC Morphology Normal
[2023-11-01 07:51] LABS: ALT 144 U/L (16-63); AST 198 U/L (15-37); Albumin 3.8 g/dL (3.4-5.0); Alkaline Phosphatase 74 U/L (46-116); Anion Gap 10.8 mmol/L (3-11); BUN 5 mg/dL (7-18); Bilirubin, Total 0.5 mg/dL (0.2-1.0); CO2 24.2 mmol/L (21.0-32.0); CREATININE 0.6 mg/dL (0.70-1.30); Chloride 102 mmol/L (98-107); Estimated GFR 119.82 (mL/min/1.73m2); Glucose 99 mg/dL (74-106); Sodium 137 mmol/L (136-145); Total Protein 7.9 g/dL (6.4-8.2)
[2023-11-01 07:53] LABS: Lipase > 375 U/L (16-77)
[2023-11-01 08:17] VITALS: BP 134/93; PULSE 98; RESP 16; TEMP 37.1; O2SAT 99
[2023-11-01] MEDS: Normal Saline Flush 10 ML SYR IVP ×2 (08:17→21:38)
[2023-11-01] MEDS: Nicotine 7 MG/24 HR PATCH TD (08:18)
[2023-11-01] MEDS: Pantoprazole 40 MG TABCR PO ×2 (08:19→21:38)
[2023-11-01] MEDS: Multivitamin TAB 1 TAB PO (08:20)
[2023-11-01] MEDS: Folic Acid 1 MG TAB PO (08:20)
--- NOTE | 2023-11-01 09:25 | PT.INTREAT ---
PT Notes Visit Reasons: Etoh withdrawal, acute pancreatitis Inpatient Physical Therapy Treatment Note [facility] Date: 11/01/23 PRECAUTIONS:Alcohol withdrawal SUBJECTIVE: Pt reports he doesn't know if he will be able to go home and walk to [place] or get to where he needs to right now with how he is feeling. OBJECTIVE: Therapeutic Activities (32597s[1]): Direct one-on-one instruction in dynamic activities to improve functional performance. ? BED MOBILITY/TRANSFERS? Sit-stand: SBA? Stand-sit: SBA ? Provided skilled cues and instruction on performance and technique throughout. Gait Training (40434b[]): Direct one-on-one instruction and skilled instruction in: ? GAIT? Assistive Device: FWW ? Weight bearing: Full Assist: CGA/SBA? Distance:? Approx 600ft ? Therapeutic Exercises (47394w[1]): Direct one-on-one instruction in therapeutic exercises to develop strength, endurance, range of motion and flexibility. ? Exercises ? Seated rowing 10x Seated shoulder flexion x 10 Seated shoulder horizontal abd x 10 Seated shoulder circles x 10 Seated LAQ x 10 Seated hip abd x 10 Seated Marching x 10 ASSESSMENT:? Pt was very motivated for PT, but was still shaking with his session today so we did use the walker because of that. I'm not sure pt will be able to get around to the store and be able to get what he needs if he goes home today so wel discussed that and I would speak with PT Tala. PLAN: Cont as per PT POC. TREATMENT CODE/TIME: 8:55-9:23 (33) TA RAHEEL
[2023-11-01 11:14] VITALS: BP 139/95; PULSE 91; RESP 19; TEMP 36.2; O2SAT 100
--- NOTE | 2023-11-01 12:12 | PDOC.CMPRO ---
Date of service: 11/01/23 Care Management Progress Note Progress Note Text Progress Note Text: S/O: Paul was sitting up in a chair when talking with CM. CM completed [facility] referral with consent form for health insurance, navigator confirmed Paul now has active Medicaid with no lapse in coverage. CM assisted with heating application and uploaded to [employer]. Paul says he is leary about going home today as he is still feeling unsteady and would like to work with PT again today and then again in the morning. He says he is interested in OP PT rather than through HH as this would be best with having Gunner. 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 CM following. A: Paul is a 48 year old male admitted to [facility] 10/28/23 for alcohol withdrawl P: Paul will discharge home when medically cleared via the RCT shuttle. He will follow up with his PCP and plan of care as prescribed. He will f/u with [facility]. CM following. SDOH(Care Management) Screening Will the Patient Participate in the Screening?: Yes Do you worry about having a steady place to live?: yes Problems where you live: pests such as bugs, ants or mice, mold, lack of heat, smoke detectors missing or not working, Carbon monoxide detectors missing or not working and other In the past 12 months, have you had to go without electric, gas, oil or water in your home?: no Have you or anyone in your house had to go without enough food to eat?: yes Has lack of transportation kept you from medical appointments or from doing things needed for daily living?: no Has anyone in your support network made you feel unsafe for any reason?: no Social Determinants of Health Comments(SDOH Details): needs help with rent and gas Health Related Social Needs Health related social needs: inadequate housing(Z59.1), housing instability, housed, with risk of homelessness(Z59.811) and food insecurity(Z59.41)
[2023-11-01 15:08] VITALS: BP 155/97; PULSE 82; RESP 19; TEMP 36.3; O2SAT 98
--- NOTE | 2023-11-01 15:24 | W.PM.PROGNOT ---
Date of Service Date of service: 11/01/23 Time of Service: 14:00 Assessment and Plan Assessment and plan (1) Alcoholic pancreatitis: Status: Acute Assessment and plan: Resolving Continued symptoms management and laboratory evidence of pancreatitis. Initial CT scan w/oper-pancreatic fluid, pancreatic cyst or abscess. Advance diet to regular as full liquids were tolerated No further N/V or abdominal pain CBC in AM Qualifiers: Acute pancreatitis complication: no infection or necrosis Chronicity: acute Qualified Code(s): K85.20 - Alcohol induced acute pancreatitis without necrosis or infection (2) Alcohol withdrawal: Status: Resolved Assessment and plan: Resolved: Received phenobarbital Legs remain shaky No upper ext tremors Qualifiers: Complication of substance-induced condition: uncomplicated Qualified Code(s): F10.230 - Alcohol dependence with withdrawal, uncomplicated (3) On deep vein thrombosis (DVT) prophylaxis: Status: Acute Assessment and plan: Platelets as low as 68 during the stay now 97 TROY's (4) Discharge planning issues: Status: Resolved Assessment and plan: PT recommends PT with walker Most likely to go home on 11/01 Subjective Subjective Patient reports: feels better, still having pain (heat burn and right flank on palpation), tolerating liquids well, voiding w/o difficulty, flatus and no bowel movement; denies diarrhea, nausea, vomiting, shortness of breath or fever Exam Narrative Exam Narrative: Constitutional The patient is sitting in chair without acute distress Neuro:alert and oriented to self, person, place time and situation. No neurological focal deficit Resp: Normal respiratory pattern, speaks in full sentences, unlabored breathing, clear lung bilaterally Cardio: regular rhythm, S1, S2, no murmur, capillary refill<3 sec.,positive radial and pedal pulses GI: Abdomen is not distended, soft and non tender, bowel sounds are present : Negative Costovertebral angle tenderness, no bladder distension Back/spine/Pelvis: No back tenderness, but right flank is tender( broken ribs 5 months ago), normal alignment Integumentary: No skin lesions or rash Extremities: strength 5/5 to bilateral lower and upper extremities, but LE's are tremulous and restless Psych: RASS 0, congruent mood and normal affect. Objective Last Vital Signs Temp 36.3 C L 11/01/23 15:08 Pulse 82 11/01/23 15:08 Resp 19 11/01/23 15:08 BP 155/97 H 11/01/23 15:08 Pulse Ox 98 11/01/23 15:08 Laboratory Results - last 24 hr 11/01/23 06:13 WBC 7.31 RBC 3.89 L Hgb 13.6 Hct 38.6 L MCV 99 H MCH 35.0 H MCHC 35.2 RDW 13.5 Plt Count 97 L MPV 10.8 Immature Gran % 0.5 Neutrophils % 55.3 Lymphocytes % 28.6 Monocytes % 12.3 Eosinophils % 2.5 Basophils % 0.8 Nucleated RBC % 0.0 Absolute Neutrophils 4.04 Absolute Lymphocytes 2.09 Absolute Monocytes 0.90 H Absolute Eosinophils 0.18 Absolute Basophils 0.06 RBC Morphology Normal Sodium 137 Potassium 4.0 Chloride 102 Carbon Dioxide 24.2 Anion Gap 10.8 BUN 5 L Creatinine 0.6 L Est GFR (CKD-EPI 2020) 119.82 Glucose 99 Calcium 10.0 Total Bilirubin 0.5 AST 198 H ALT 144 H Alkaline Phosphatase 74 Total Protein 7.9 Albumin 3.8 Lipase > 375 H PAWSS Have you Been Recently Intoxicated or Drunk Within the Last 30 days?: Yes Have you Ever Experienced Previous Episodes of Alcohol Withdrawal?: Yes Have you ever Experienced Withdrawal Seizures?: No Have you ever Experienced Delirium Tremens(DT)s?: Yes Have you ever undergone Alcohol Rehabilitation Treatment (i.e, inpt ot outpatient treatment programs)?: No Have you ever Experienced Blackouts?: Yes Have you ever Combined Alcohol with other Downers within the last 90 days?: No Have you ever Combined Alcohol with any other Substance of Abuse during the last 90 days?: No Positive Blood Alcohol level on Presentation? [PCS.BAL]: Yes Evidence of Increased Autonomic Activity (i.e. HR>120, tremor, sweating, agitation, nausea)?: Yes Result: 6 Time Spent with Patient Time Spent with Patient: >50 minutes Time was spent: preparing to see the patient(eg.review tests), obtaining and/or reviewing separately otained hiistory, ordering medications,tests, procedures, referring, communicating with other health caregivers homecare, indepentently interpreting results, counseling the patient and care coordination
[2023-11-01] MEDS: Docusate Sodium 100 MG/10 ML CUP PO ×2 (16:34→21:38)
[2023-11-01 19:41] VITALS: BP 104/65; PULSE 77; RESP 17; TEMP 36.3; O2SAT 99
[2023-11-01 23:18] VITALS: BP 112/71; PULSE 58; RESP 17; TEMP 37.2; O2SAT 98
[2023-11-02 02:51] VITALS: BP 99/63; PULSE 60; RESP 17; TEMP 36.7; O2SAT 96
[2023-11-02] MEDS: Pantoprazole 40 MG TABCR PO (07:00)
[2023-11-02 08:40] VITALS: BP 106/69; PULSE 69; RESP 18; TEMP 36.7; O2SAT 97
[2023-11-02] MEDS: Docusate Sodium 100 MG/10 ML CUP PO (08:40)
[2023-11-02] MEDS: Folic Acid 1 MG TAB PO (08:40)
[2023-11-02] MEDS: Normal Saline Flush 10 ML SYR IVP (08:40)
[2023-11-02] MEDS: Nicotine 7 MG/24 HR PATCH TD (08:40)
[2023-11-02] MEDS: Multivitamin TAB 1 TAB PO (08:40)
[2023-11-02] MEDS: THIAMINE 500 MG in Normal Saline 100 ML 200 MG IVPB (08:40)
[2023-11-02 09:32] LABS: Magnesium 1.9 mg/dL (1.8-2.4)
--- NOTE | 2023-11-02 09:41 | PTTR_ITS ---
PT Notes Visit Reasons: Etoh withdrawal, acute pancreatitis Date: 11/02/23 PRECAUTIONS: Activity as tolerated. Standard. SUBJECTIVE: Pt in bed awake, agreed to participating with therapy, reports he feels much better compared to yesterday. Pt able to participate with second session for the day later in the morning. OBJECTIVE: ?IV on left antecubital ? PAIN: none reported VITALS: WNL? Therapeutic Activities [id number]: Direct one-on-one instruction in dynamic activities to improve functional performance. ?? BED MOBILITY/TRANSFERS? Rolling L/R: independent Supine-sit: ?independent ? Sit-supine: ?independent ? Sit-stand: ?independent ? Stand-sit: ??inedependent ? Bed-Chair:? ?independent ? Chair-bed: independent Provided skilled cues and instruction on performance and technique throughout. Gait Training [id number]: Direct one-on-one instruction and skilled instruction in: Movement sequencing Turning and movement with proper form Provided verbal cues for equipment management and technique Provided instruction in gait pattern Patient education regarding pacing and breathing techniques to maximize activity tolerance? GAIT? Assistive Device: none? Weight bearing: FWB Assist: ?Independent ? Distance:??300' pushing IV pole, 300' without AD (am), ? 600' without AD, 3 00'without AD? Deviation: ?slow juanjo, low step height, short step length, looks downward/ improved gait pattern, with pt showing good effort to look ahead? STAIRS:? 6 x 4 inch steps and 4 x 6 inch steps with 1 step over step pattern requiring supervision, Facility stairs 14 steps step through gait pattern 1handrail SBA ? ASSESSMENT:?Pt stable during gait training and stair negotiation training, does not need FWW for safety at home PLAN: Continue with balance training, global strengthening and general conditioning for improved safety, mobility and activity tolerance until pt is ready for DC. TREATMENT CODE/TIME: 1st [id number] 15mins (9:10-9:30am) 2nd [id number] 30mins(11:58- 11:28am) ?
--- NOTE | 2023-11-02 10:15 | PDOC.CMPRO ---
Date of service: 11/02/23 Care Management Progress Note Progress Note Text Progress Note Text: S/O: A: Paul is a 48 year old male admitted to [facility] 10/28/23 for alcohol withdrawl P: Paul will discharge home when medically cleared via the RCT shuttle. He will follow up with his PCP and plan of care as prescribed. He will f/u with [facility]. CM following. SDOH(Care Management) Screening Will the Patient Participate in the Screening?: Yes Do you worry about having a steady place to live?: yes Problems where you live: pests such as bugs, ants or mice, mold, lack of heat, smoke detectors missing or not working, Carbon monoxide detectors missing or not working and other In the past 12 months, have you had to go without electric, gas, oil or water in your home?: no Have you or anyone in your house had to go without enough food to eat?: yes Has lack of transportation kept you from medical appointments or from doing things needed for daily living?: no Has anyone in your support network made you feel unsafe for any reason?: no Social Determinants of Health Comments(SDOH Details): needs help with rent and gas Health Related Social Needs Health related social needs: inadequate housing(Z59.1), housing instability, housed, with risk of homelessness(Z59.811) and food insecurity(Z59.41)
[2023-11-02 11:25] VITALS: BP 140/80; PULSE 78; RESP 18; TEMP 36.7; O2SAT 99
--- NOTE | 2023-11-02 11:38 | CMDISCH_ITS ---
Date of service: 11/02/23 LACE Index Scoring Tool Questions: Length of Stay (in days): 4 - 6 E.D. Visits: 6 Care Management Discharge Plan Reason for Hospitalization: alcoholic pancreatitis Discharge Plan: Paul will discharge home and transport via the RCT shuttle. He will follow up with his PCP and plan of care as prescribed. He will have new O/P PT. He will f/u with [facility] Health Related Social Needs: Health related social needs inadequate housing, risk o f homeless, food insecurity Health related social needs: inadequate housing(Z59.1), housing instability, housed, with risk of homelessness(Z59.811) and food insecurity(Z59.41)
--- NOTE | 2023-11-02 12:11 | W.PM.DS.N ---
Date of service: 11/02/23 Time of Service: 12:11 DS: Diagnosis Discharge Diagnosis (1) Alcoholic pancreatitis: Status: Acute (2) Alcohol withdrawal: Status: Resolved Discharge Plan Disposition Patient Disposition: Home W/Home Health Services Condition: Improving Discharge Details Reason For Visit: Etoh withdrawal, acute pancreatitis Admit Date/Time: 10/28/23 07:12 Admit Provider: Gustavo Zuniga Attending Provider: Gustavo Zuinga Primary Care Provider: OWEN GARRISON Hospital Course Hospital Course: This 48 years old male patient with past medical history of EtOH abuse and uncontrolled presented to the ED at [facility] on 10/28/2023 via EMS for evaluation of chest pain. Patient stated that this occurrence was similar but not identical to prior episode of alcohol withdrawal. Pain was described as substernal/epigastric, tight sharp, severe and constant as well as worsening since 8 PM on the previous evening. Denied shortness of breath, pleuritic pain, vomiting and abdominal pain. The patient reported drinking half a bottle of vodka daily, last on 10/26/2023, also reported nausea and tremors. In the emergency department the patient was noted to have abnormal vital signs but CIWA score of 25 for which she was given IV phenobarbital for alcohol withdrawal. EKG showed no ST segment or T wave abnormalities. Labs in the ED were unremarkable except for an anion gap of 26.1 most likely due to alcohol as the patient's alcohol level was 8.4, and elevated lipase greater than 375. The CT of the abdomen and pelvis showed some stranding of the pancreas consistent with pancreatitis. In the emergency room the patient received magnesium sulfate replacement, morphine for pain management, and Zofran for nausea. CIWA score improved in the ED and the hospitalist was consulted. The patient was admitted to the medical evaluation for management of acute alcoholic pancreatitis and alcohol withdrawal. On admission to the symptomatic management in regard to pain was continued with IV morphine, ondansetron, ibuprofen and acetaminophen.Phenobarbital orders were maintained for symptomatic or T wave abnormalities of EtOH withdrawal. During the stay, the patient received an oral combination of Mylanta and viscous lidocaine which colitis epigastric sensation of heart burn. EKG at the time was negative for sign of ischemia. The patient completed his course of phenobarbital, pancreatitis resolved. The patient was seen by physical therapy with recommendation for home health physical therapy, and will need a walker. The patient will be discharged home on folic acid 1 mg p.o. and thiamine 100 mg oral for amount. The patient will need to follow-up with his primary care provider within 7 days of discharge. Home Meds and New Rx's Prescriptions: New folic acid 1 mg Tablet 1 mg PO QAM Qty: 30 0RF thiamine HCl (vitamin B1) 100 mg tablet 100 mg PO DAILY Qty: 30 0RF Continued sildenafil 50 mg tablet 50 mg PO ONCE PRN Patient Comments: TAKE ONE TABLET BY MOUTH DIRECTED 60 MINUTES PRIOR TO INTERCOURSE Discharge Instructions Instructions: Pancreatitis (DC) Stand Alone Forms: Nursing Discharge Form Referrals: [facility] [Provider Group] - 11/13/23 11:00 am (Appointment will be in [place], It is very important that you go to your appointment. ) OWEN GARRISON OPTICAL ENGINEERING MANAGER [Primary Care Provider] - (Message left with office to call and make a follow up appointment for 1-2 weeks, if you do not hear from them today please call them tomorrow to make a follow up. ) Activity:: Activity as Tolerated Equipment/Supplies:: Walker Diet:: As Tolerated Discharge Orders Discharge Orders: Discharge Order (Routine); Ordered 11/02/23 Ordered By: Annabelle Merritt Discharge Data Discharge Date/Time-TO BE ENTERED AT DEPARTURE: 11/02/23 14:20 DS: Summary Time Spent with Patient providing and/or coordinating discharge services: Less than 30 minutes Status at Discharge Functional status at discharge: independent ambulation Overall status at discharge: patient is back to baseline Mental Status: mental status grossly normal Speech and Movement: speech and movement normal Mood: congruent mood Affect: normal affect Quality:SDOH Health Related Social Needs: Health related social needs inadequate housing, risk of homeless, food insecurity Exam Narrative Exam Narrative: Thin gentleman older appearing than stated age no acute distress head is atraumatic eye appearance normal nonicteric EOMs intact full range of motion to neck respirations even and unlabored breath sounds clear cardiovascular regular rate and rhythm he is well-perfused abdomen benign no pain or nausea moves all extremities skin with no rashes or lesions neurologic awake alert oriented no focal deficits Psych Mental Status: mental status grossly normal Speech and Movement: speech and movement normal Mood: congruent mood Affect: normal affect DS: Data Vitals/I&O Vitals and I&O: Vital Signs Temperature 36.7 C 11/02/23 11:25 Temperature Source Tympanic 11/02/23 11:25 Pulse 78 11/02/23 11:25 Pulse Rhythm Regular 11/02/23 09:46 Pulse 86 10/28/23 07:31 Respiratory Rate 18 11/02/23 11:25 Respiratory Effort Normal, Non-Labored 11/02/23 09:46 Respiratory Depth Normal 11/02/23 09:46 Respiratory Pattern Normal 11/02/23 09:46 Blood Pressure 140/80 11/02/23 11:25 Blood Pressure Mean 99 10/28/23 07:31 Blood Pressure Position Sitting 10/28/23 04:27 Pulse Oximetry 99 11/02/23 11:25 Oxygen Delivery Method Room Air 11/02/23 11:25 Oxygen Flow Rate 0 11/02/23 11:25 Pain Level 0 11/02/23 11:25 Intake & Output 11/01/23 11/02/23 11/02/23 23:59 11:59 23:59 Intake Total 345 / 1140 555 / 555 Output Total 500 / 500 Balance -155 / 640 555 / 555 Intake: IV 105 / 420 315 / 315 Oral 240 / 720 240 / 240 Output: Urine 500 / 500 Other: Urine Color Pale Urine Appearance Clear Clear Urine Odor Normal Comment pT inependently uses bathroom. Voiding Methods Toilet Toilet Data Completed and Pending Labs on day of discharge: Labs from last 24 hours 11/02/23 06:14 Magnesium 1.9 PFSH All Active Problems (Updated 11/03/23 @ 00:03 by ELAINE PHILLIPS) Alcoholic pancreatitis (Acute) Trochanteric bursitis, right hip (Acute) Avascular necrosis of bone of left hip (Acute) Chest pain (Acute) due to ETOH Hepatic steatosis (Acute) COVID-19 ruled out (Acute) Tobacco abuse (Acute) Impairment of balance (Acute) Chronic vertigo (Acute) Electrolyte and fluid disorder (Acute) Medical History (Updated 11/03/23 @ 00:03 by ELAINE PHILLIPS) On deep vein thrombosis (DVT) prophylaxis Surgical History 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) Cyst of right upper eyelid Family History Maternal Grandfather Alcohol abuse Maternal Uncle Alcohol abuse Social History Smoking/Tobacco Use Status: Current every day Tobacco Type: cigarettes Smoking packs per day: 1 Smoking cigarettes per day: 20.0 Years smoked: 25 Smoking pack-years: 25.00 Smoking risk assessment performed?: Yes Alcohol Intake: current Alcohol Intake frequency: 3 or more drinks per day Alcohol type: beer and hard liquor Details: last drink was 2 weeks ago Drug use: Never Substance use type: does not use Details: Last ETOH 10/26 Housing: 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 Time Spent with Patient Time Spent with Patient: <45 minutes Time was spent: preparing to see the patient(eg.review tests), ordering medications,tests, procedures, indepentently interpreting results and counseling the patient
== END 2023-11-02 14:20 | disposition home health service (06) | DRG 439 ==
LOC: ER 05:11 → MS 08:03
PROVIDERS: Hospitalist; Internal Medicine; Nurse Practitioner Acute Care; Admitting Provider Family Medicine; Emergency Provider Student in an Organized Health Care Education/Training Program; PCP Nurse Practitioner Family; Visit Provider Family Medicine
DX: F10.230 Alcohol dependence with withdrawal, uncomplicated (principal); K85.20 Alcohol induced acute pancreatitis without necrosis or infection; M87.852 Other osteonecrosis, left femur; F17.210 Nicotine dependence, cigarettes, uncomplicated; Z96.641 Presence of right artificial hip joint; K76.0 Fatty (change of) liver, not elsewhere classified; R42 Dizziness and giddiness
CPT/HCPCS: 00123; 36415; 71275; 74177; 80048; 80053; 80076; 82805; 83690; 85027; 93005; 96361; 96365; 96366; 96375; 96376; 97110; 97162; 97530; 99285; J1650; 71046; 80320; 80329; 81003; 81015; 83605; 83735; 83880; 84100; 84132; 84484; 85025; 85379; 93010; 99223; 99232; 99233; 99238; J2270; J2405; J2560; J3411; J3475; J3490

== ENCOUNTER 2023-11-14 08:52 | Emergency (ER) | payer MEDICAID, SELFPAY ==
--- NOTE | 2023-11-14 08:45 | DI.CT_ITS ---
Exam(s) CT HEAD CERVICAL SPINE WO EXAM: CT HEAD CERVICAL SPINE WO CLINICAL HISTORY: Fall, Intoxicated. TECHNIQUE: Imaging Protocol: Axial computed tomography images with coronal and sagittal reformatted images were created and reviewed COMPARISON: CT CT HEAD WO from 01/15/[address] HEAD WO from 01/17/2023 FINDINGS: CT Head: Ventricles and Extra axial spaces: Normal in size and morphology for the patient's age. Hemorrhage: None. Cerebral parenchyma: There is no mass effect. There are no findings to suggest an acute territorial infarct. Midline shift: None. Brainstem/Cerebellum: Normal. Calvarium: Normal. Visualized Paranasal sinuses/Mastoids: Clear. Soft Tissues: Unremarkable. CT Cervical Spine: Bones: No acute fracture or subluxation. Age-appropriate degenerative changes are seen in the spine. Soft Tissues: Unremarkable. Lung Apices: Paraseptal emphysematous changes are seen in the lung apices. IMPRESSION: 1. No acute intracranial process. 2. No acute fracture or subluxation in the cervical spine. RADIATION DOSE DELIVERED: Total DLP DATA REPOSITORY: All CT scans at this facility are submitted to the National Radiology Data Registry (NRDR) Dose Index Registry (DIR) with the [employer] (ACR). RADIATION OPTIMIZATION: All CT scans at this facility use at least one of these dose optimization te chniques: automated exposure control; mA and/or kV adjustment per patient size (includes targeted exa ms where dose is matched to clinical indication); or iterative reconstruction.
[2023-11-14 08:51] VITALS: BP 115/87; PULSE 84; RESP 16; TEMP 36.2; O2SAT 98
--- NOTE | 2023-11-14 08:56 | DI.CT_ITS ---
Exam(s) CT CHEST/ABD/PEL W EXAM: CT CHEST/ABD/PEL W CLINICAL HISTORY: Fall, Left flank pain, Intoxicated TECHNIQUE: Imaging Protocol: Axial computed tomography images with coronal and sagittal reformatted images were created and reviewed CONTRAST MATERIAL: Intravenous: Omnipaque 350 contrast volume:100 mL Oral: No COMPARISON: CT CT CHEST PE ABD PELVIS W from 10/28/2023 FINDINGS: CHEST: Tracheobronchial tree: Patent where visualized. Pulmonary parenchyma: Dependent atelectasis in the right lower lobe. Paraseptal and centrilobular em physematous changes are seen in the lung apices, right greater than left. No focal consolidating inf iltrate. Visualized thyroid gland: Unremarkable. Mediastinum and Patti: No dominant adenopathy or fluid collection. There is concentric mild thickening of the wall of the distal esophagus. Pleura: No effusion or pneumothorax. Heart: The heart is not dilated. Mild coronary artery calcification is present. No pericardial effus ion. Pulmonary arteries: No pulmonary emboli are identified. Aorta: Thoracic aorta non-dilated. No evidence of dissection. Atherosclerotic calcifications are pre sent. Lymph nodes: Within normal limits. Soft tissues: Unremarkable. Bones:Within normal limits for the patient's age. There is again seen a healing right 9th rib fractu re. There are old healed left rib fractures. ABDOMEN: Liver: Normal density. No measurable mass. Portal, Superior Mesenteric, and Splenic Veins: Unremarkable. Gallbladder and Biliary Tract: No radiodense calculus or dilation. Pancreas: Normal density. There are calcifications seen in the pancreas likely reflecting prior panc reatitis. No peripancreatic fluid collections are seen. Spleen: Normal. Adrenals: No masses seen. Kidneys: Normal size, contour and axis. No radiodense stones or obstructive uropathy. Stable left mary al cyst. No follow-up is recommended. Abdominal Aorta: Abdominal portion non-dilated. Atherosclerotic calcification is present. Bowel: No obstruction or bowel wall thickening. Appendix is unremarkable. Peritoneal Cavity: No ascites, collection or mesenteric inflammatory response. No free air. Lymph Nodes: Within normal limits. Bones: Within normal limits for the patient's age. The patient has a right total hip replacement. 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 Soft Tissues: Unremarkable. PELVIS: Bladder: There is diffuse thickening of the wall of the urinary bladder. Reproductive Organs: Unremarkable as visualized. Lymph Nodes: Within normal limits. Bones: Within normal limits. IMPRESSION: 1. No acute abnormality is seen in the chest, abdomen or pelvis. 2. No acute fracture or dislocation. Stable healing right 9th rib fracture. 3. Incidental findings in the chest and abdomen as described above. 4. Diffuse thickening of the wall of the urinary bladder. This may be due to underdistention but cys titis, chronic bladder outlet obstruction or neoplasm can not be entirely excluded. Please correlate clinically. RADIATION DOSE DELIVERED: Total DLP DATA REPOSITORY: All CT scans at this facility are submitted to the National Radiology Data Registry (NRDR) Dose Index Registry (DIR) with the [employer] (ACR). RADIATION OPTIMIZATION: All CT scans at this facility use at least one of these dose optimization te chniques: automated exposure control; mA and/or kV adjustment per patient size (includes targeted exa ms where dose is matched to clinical indication); or iterative reconstruction.
--- NOTE | 2023-11-14 08:58 | ED.GENADUL_ITS ---
Discharge Plan Disposition Patient Disposition: Home Condition: Stable Discharge Details Clinical Impression: Left rib fracture, Alcohol intoxication, Fall Primary Care Provider: OWEN GARRISON ED Provider: Meagan Hernandez Home Meds and New Rx's Prescriptions: No Action sildenafil 50 mg tablet 50 mg PO ONCE PRN Patient Comments: TAKE ONE TABLET BY MOUTH DIRECTED 60 MINUTES PRIOR TO INTERCOURSE Discharge Instructions Instructions: Rib Fracture (ED), Alcohol Intoxication (ED), Fall Prevention (ED) Additional Instructions: [facility] for rehab services if you are interested in getting help with substance abuse: [phone] You may have exacerbated a old rib fracture on the left. Follow up with primary care provider in 3-5 days. Return to ED sooner if any worsening or concerns. Please take Ibuprofen with food every 4-6 hours as needed for pain and swelling. Your liver enzymes were also elevated today this is most likely due to the alcohol use. Referrals: [facility] [Outside] - 1 day OWEN GARRISON, INTERNAL CONTROLS MANAGER [Primary Care Provider] - 3 days Discharge Data Discharge Date/Time-TO BE ENTERED AT DEPARTURE: 11/14/23 11:32 HPI General Mode of arrival: EMS . Date/Time Provider Initiated Documentation: 11/14/23 08:56 . Limitations to Documentation: altered mental status (Intoxication, Admits to Vodka this am) . Information obtained by: patient, EMS, RN notes reviewed and old records reviewed . HPI Narrative: 48-year-old male presents to the ER via EMS with a chief complaint of alcohol intoxication and fall. Per EMS patient had a fever of 102, he reports that he fell last night as an apartment but he is unsure of how he fell. He did have 5 shots of vodka this morning to deal with the pain. He is complaining of left flank pain. EMS also reports that he has been having problems urinating recently. Does have a history of a right hip replacement. He was ambulatory on scene prior to arrival. He denies hitting his head there is no significant signs of trauma however he does appear to be intoxicated and altered. No focal neurodeficits noted he does have slurred speech and smells of EtOH. Hx of chronic Alcoholisim. Related Data Home Medications Medication Instructions Recorded Confirmed sildenafil 50 mg tablet 50 mg PO ONCE PRN 10/28/23 11/14/23 Allergies Allergy/AdvReac Type Severity Reaction Status Date / Time No Known Allergies Allergy Unverified 10/28/23 04:52 General Stated Complaint: Trauma SARAH: 3 Review of Systems Narrative: History supplied by EMS, patient is a poor historian Constitutional Constitutional: Reports as per HPI, Reports frequent falls and Denies headache(s) ENT Ears, Nose, Mouth, and Throat: Denies headache(s), Denies neck pain and Reports disequilibrium Musculoskeletal Musculoskeletal: Reports as per HPI, Reports back pain and Denies neck pain Neurologic Neurologic: Reports frequent falls, Denies headache(s) and Reports disequilibrium Exam Narrative Exam Narrative: General: Disheveled, smells of ETOH, slurred speech, sluggish pupils, Skin: Warm and Dry HEENT: Head: No palpable deformities, Normocephalic Eyes: Pupils Equal bilaterally, sluggish, EOM's intact. No periorbital eccymosis or step off Ears: Canal patent. Tympanic membranes are clear . No posada's sign, no hemptympanum. Nose/Face: Atraumatic. Facial bones nontender to palpation and stable with manipulation. Mouth/Throat: No intraoral trauma. Teeth and mandible are intact. Neck: No midline tenderness, no step off, no deformity to palpation of C-spine. Trachea midline. Chest: No surface trauma. Nontender without crepitus or deformity. Lungs clear to ausculatation bilaterally. Heart: RRR, no rubs, murmurs or gallop. Abdomen: No abrasions, ecchymosis, or surface trauma. Nondistended. Left CVA tenderness Pelvis: Nontender to palpation and stable to compression. Femoral pulses strong and equal Extremities: no surface trauma. Sensation intact. Peripheral pulses intact and equal. Neuro: ANO x4, GCS 15, Motor and sensory exam nonfocal. Reflexes are symmetric. Course Vital Signs Vital signs: Vital Signs Temperature 36.2 C L 11/14/23 08:51 Pulse 84 11/14/23 08:51 Respiratory Rate 16 11/14/23 08:51 Blood Pressure 115/87 11/14/23 08:51 Pulse Oximetry 98 11/14/23 08:51 Temperature 36.2 C L 11/14/23 08:51 Pulse 84 11/14/23 08:51 Respiratory Rate 16 11/14/23 08:51 Blood Pressure 115/87 11/14/23 08:51 Pulse Oximetry 98 11/14/23 08:51 Pain Level 3 11/14/23 08:51 Medical Decision Making 48-year-old male presents to the ER via EMS with a chief complaint of alcohol intoxication and fall. Per EMS patient had a fever of 102, he reports that he fell last night as an apartment but he is unsure of how he fell. He did have 5 shots of vodka this morning to deal with the pain. He is complaining of left flank pain. EMS also reports that he has been having problems urinating recently. Does have a history of a right hip replacement. He was ambulatory on scene prior to arrival. He denies hitting his head there is no significant signs of trauma however he does appear to be intoxicated and altered. No focal neurodeficits noted he does have slurred speech and smells of EtOH. Hx of chronic Alcoholisim. Trauma workup ordered including labs, EtOH, urinalysis CT head C-spine chest abdomen pelvis. CT shows some chronic emphysematous changes right greater than left, CT head and C-spine within normal limits, there are old healed left rib fractures and a healing right ninth rib fracture. Also noted is avascular necrosis of the left femoral head. Alcohol is 392, potassium slightly low at 3.0 magnesium within normal limits, no leukocytosis liver enzymes are elevated AST 292 ALT 153 lipase is also elevated at 229. CT also shows some calcifications to the pancreas with concern for previous pancreatitis no surrounding fluid or evidence of acute pancreatitis at this time. Patient discharged with RCT. Given [facility] recovery phone number and follow-up information. Patient was ambulatory without assistance prior to discharge. He remained hemodynamically stable throughout entire stay. He was given ibuprofen prior to discharge. This text was generated using [employer] dictation system, please disregard any oddities of phrase or misspellings. Imaging Data Radiologic Study: Imaging: CT Scan Radiologist's impression: CT HEAD CERVICAL SPINE WO EXAM: CT HEAD CERVICAL SPINE WO CLINICAL HISTORY: Fall, Intoxicated. TECHNIQUE: Imaging Protocol: Axial computed tomography images with coronal and sagittal reformatted images were created and reviewed COMPARISON: CT CT HEAD WO from 01/15/[address] HEAD WO from 01/17/2023 FINDINGS: CT Head: Ventricles and Extra axial spaces: Normal in size and morphology for the patient's age. Hemorrhage: None. Cerebral parenchyma: There is no mass effect. There are no findings to suggest an acute territorial infarct. Midline shift: None. Brainstem/Cerebellum: Normal. Calvarium: Normal. Visualized Paranasal sinuses/Mastoids: Clear. Soft Tissues: Unremarkable. CT Cervical Spine: Bones: No acute fracture or subluxation. Age-appropriate degenerative changes are seen in the spine. Soft Tissues: Unremarkable. Lung Apices: Paraseptal emphysematous changes are seen in the lung apices. IMPRESSION: 1. No acute intracranial process. 2. No acute fracture or subluxation in the cervical spine. Radiologic Study #2: Imaging: CT Scan Radiologist's impression: CONTRAST MATERIAL: Intravenous: Omnipaque 350 contrast volume:100 mL Oral: No COMPARISON: CT CT CHEST PE ABD PELVIS W from 10/28/2023 FINDINGS: CHEST: Tracheobronchial tree: Patent where visualized. Pulmonary parenchyma: Dependent atelectasis in the right lower lobe. Paraseptal and centrilobular emphysematous changes are seen in the lung apices, right greater than left. No focal consolidating infiltrate. Visualized thyroid gland: Unremarkable. Mediastinum and Patti: No dominant adenopathy or fluid collection. There is concentric mild thickening of the wall of the distal esophagus. Pleura: No effusion or pneumothorax. Heart: The heart is not dilated. Mild coronary artery calcification is present. No pericardial effusion. Pulmonary arteries: No pulmonary emboli are identified. Aorta: Thoracic aorta non-dilated. No evidence of dissection. Atherosclerotic calcifications are present. Lymph nodes: Within normal limits. Soft tissues: Unremarkable. Bones:Within normal limits for the patient's age. There is again seen a healing right 9th rib fracture. There are old healed left rib fractures. ABDOMEN: Liver: Normal density. No measurable mass. Portal, Superior Mesenteric, and Splenic Veins: Unremarkable. Gallbladder and Biliary Tract: No radiodense calculus or dilation. Pancreas: Normal density. There are calcifications seen in the pancreas likely reflecting prior pancreatitis. No peripancreatic fluid collections are seen. Spleen: Normal. Adrenals: No masses seen. Kidneys: Normal size, contour and axis. No radiodense stones or obstructive uropathy. Stable left renal cyst. No follow-up is recommended. Abdominal Aorta: Abdominal portion non-dilated. Atherosclerotic calcification is present. Bowel: No obstruction or bowel wall thickening. Appendix is unremarkable. Peritoneal Cavity: No ascites, collection or mesenteric inflammatory response. No free air. Lymph Nodes: Within normal limits. Bones: Within normal limits for the patient's age. The patient has a right total hip replacement. 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 Soft Tissues: Unremarkable. PELVIS: Bladder: There is diffuse thickening of the wall of the urinary bladder. Reproductive Organs: Unremarkable as visualized. Lymph Nodes: Within normal limits. Bones: Within normal limits. IMPRESSION: 1. No acute abnormality is seen in the chest, abdomen or pelvis. 2. No acute fracture or dislocation. Stable healing right 9th rib fracture. 3. Incidental findings in the chest and abdomen as described above. 4. Diffuse thickening of the wall of the urinary bladder. This may be due to underdistention but cystitis, chronic bladder outlet obstruction or neoplasm can not be entirely excluded. Please correlate clinically. Lab Data Lab results reviewed: Yes I reviewed the patient's lab results. Labs: Laboratory Tests Range/Units 11/14/23 09:15 WBC (4.4-10.8) 10^3/uL 8.02 RBC (4.36-5.78) 10^6/uL 4.34 L Hgb (13.5-17.5) g/dL 15.2 Hct (40.0-50.0) % 43.5 MCV (80-95) fL 100 H MCH (27.0-33.0) pg 35.0 H MCHC (32.0-36.0) % 34.9 RDW (11.8-14.1) % 12.8 Plt Count (130-400) 10^3/uL 141 MPV (8.0-11.0) fL 10.4 Immature Gran % 0.5 Neutrophils % 51.8 Lymphocytes % 36.4 Monocytes % 8.2 Eosinophils % 2.4 Basophils % 0.7 Nucleated RBC % (0.0-0.3) % 0.0 Absolute Neutrophils (1.2-6.7) 10^3/uL 4.15 Absolute Lymphocytes (1.2-3.4) 10^3/uL 2.92 Absolute Monocytes (0.1-0.8) 10^3/uL 0.66 Absolute Eosinophils (0.0-0.7) 10^3/uL 0.19 Absolute Basophils (0.0-0.2) 10^3/uL 0.06 Sodium (136-145) mmol/L 142 Potassium (3.5-5.1) mmol/L 3.0 L Chloride (98-107) mmol/L 100 Carbon Dioxide (21.0-32.0) mmol/L 25.0 Anion Gap (3-11) mmol/L 17.0 H BUN (7-18) mg/dL 3 L Creatinine (0.70-1.30) mg/dL 0.6 L Est GFR (CKD-EPI 2020) (mL/min/1.73m2) 119.82 Glucose (74-106) mg/dL 102 Calcium (8.5-10.1) mg/dL 9.7 Magnesium (1.8-2.4) mg/dL 1.8 Total Bilirubin (0.2-1.0) mg/dL 0.5 AST (15-37) U/L 292 H ALT (16-63) U/L 153 H Alkaline Phosphatase (46-116) U/L 79 Total Protein (6.4-8.2) g/dL 8.7 H Albumin (3.4-5.0) g/dL 4.1 Lipase (16-77) U/L 229 H Ethyl Alcohol (<10) mg/dL 392.6 H Quality:SDOH Health Related Social Needs: Health related social needs inadequate housing, risk o f homeless, food insecurity PFSH All Active Problems (Updated 11/14/23 @ 11:15 by Meagan Hernandez NP) Fall (Acute) Alcohol intoxication (Acute) Left rib fracture (Acute) Alcoholic pancreatitis (Acute) Trochanteric bursitis, right hip (Acute) Avascular necrosis of bone of left hip (Acute) Chest pain (Acute) due to ETOH Hepatic steatosis (Acute) COVID-19 ruled out (Acute) Tobacco abuse (Acute) Impairment of balance (Acute) Chronic vertigo (Acute) Electrolyte and fluid disorder (Acute) Medical History On deep vein thrombosis (DVT) prophylaxis Surgical History 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) Cyst of right upper eyelid Family History Maternal Grandfather Alcohol abuse Maternal Uncle Alcohol abuse Social History Smoking/Tobacco Use Status: Current every day Tobacco Type: cigarettes Years smoked: 25 Smoking risk assessment performed?: Yes Alcohol Intake: current Alcohol Intake frequency: 3 or more drinks per day Alcohol type: beer and hard liquor Details: last drink was 2 weeks ago Drug use: Never Substance use type: does not use Details: Last ETOH 10/26 Housing: 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
[2023-11-14 09:23] LABS: Abs Immature Grans 0.04 10^3/uL (0.0-0.06); Absolute Basophil Count 0.06 10^3/uL (0.0-0.2); Absolute Eosinophil Count 0.19 10^3/uL (0.0-0.7); Absolute Lymphocyte Count 2.92 10^3/uL (1.2-3.4); Absolute Monocyte Count 0.66 10^3/uL (0.1-0.8); Absolute Neutrophil Count 4.15 10^3/uL (1.2-6.7); Basophils % 0.7; Eosinophils % 2.4; HCT 43.5 % (40.0-50.0); HGB 15.2 g/dL (13.5-17.5); Immature Grans % 0.5; Lymphocytes % 36.4; MCHC 34.9 % (32.0-36.0); MCV 100 fL (80-95); MPV 10.4 fL (8.0-11.0); Monocytes % 8.2; Neutrophils % 51.8; Platelet Count 141 10^3/uL (130-400); RBC 4.34 10^6/uL (4.36-5.78); RDW 12.8 % (11.8-14.1); RDW-SD 47.7 fL; WBC 8.02 10^3/uL (4.4-10.8)
[2023-11-14] MEDS: Normal Saline 1,000 ML 1000 ML IV (09:25)
[2023-11-14] MEDS: Normal Saline - Diluent 50 ML VIAL IJ (09:40)
[2023-11-14] MEDS: Omnipaque 350 MG/ML 500 ML BTL-Imaging package 100 ML IJ (09:41)
[2023-11-14 09:49] LABS: ALT 153 U/L (16-63); AST 292 U/L (15-37); Albumin 4.1 g/dL (3.4-5.0); Alkaline Phosphatase 79 U/L (46-116); BUN 3 mg/dL (7-18); Bilirubin, Total 0.5 mg/dL (0.2-1.0); CREATININE 0.6 mg/dL (0.70-1.30); Calcium 9.7 mg/dL (8.5-10.1); Chloride 100 mmol/L (98-107); Estimated GFR 119.82 (mL/min/1.73m2); Glucose 102 mg/dL (74-106); Sodium 142 mmol/L (136-145); Total Protein 8.7 g/dL (6.4-8.2)
[2023-11-14 09:50] LABS: ETHANOL BLOOD 392.6 mg/dL (<10)
[2023-11-14 10:21] LABS: Lipase 229 U/L (16-77); Magnesium 1.8 mg/dL (1.8-2.4)
[2023-11-14] MEDS: Lidocaine 5% Patch 1 PATCH TP (10:33)
[2023-11-14] MEDS: Potassium Chloride 20 MEQ TABCR 40 MEQ PO (10:34)
[2023-11-14 11:07] LABS: Bilirubin Negative (Negative); Blood Trace-intact (Negative); Clarity Clear (Clear); Glucose Negative (Negative); Ketones Negative (Negative); Leukocyte Esterase Negative (Negative); Nitrite Negative (Negative); Specific Gravity <= 1.005 (1.005-1.025)
[2023-11-14 11:13] LABS: Bacteria Negative HPF (Negative); C & S Indicated? No; Casts Negative LPF (Negative); Crystals Negative HPF (Negative); Epithelial Cells Rare HPF (Negative); Mucus Trace (Negative); RBC 0-2 HPF (0-2); WBC 0-2 HPF (0-5)
[2023-11-14 11:17] VITALS: BP 124/87; PULSE 87; RESP 16; TEMP 36.3; O2SAT 98
[2023-11-14 11:21] LABS: *AMPHETAMINES SCREEN URINE Negative (Negative); *BARBITURATES SCREEN URINE Positive (Negative); *BENZODIAZEPINES SCREEN URINE Negative (Negative); Cannabinoids THC Negative (Negative); Cocaine Screen,Urine Negative (Negative); METHADONE URINE SCREEN Negative (Negative); OPIATES URINE SCREEN Negative (Negative)
[2023-11-14 11:22] LABS: Tricyclic Antidepressants Negative (Negative)
[2023-11-14] MEDS: Ibuprofen 600 MG TAB PO (11:31)
== END 2023-11-14 11:32 | disposition home or self-care (01) ==
LOC: ER 11:33
PROVIDERS: Emergency Provider Registered Nurse Emergency; PCP Nurse Practitioner Family
DX: S22.32XD Fracture of one rib, left side, subsequent encounter for fracture with routine healing (principal); F10.120 Alcohol abuse with intoxication, uncomplicated; Z96.641 Presence of right artificial hip joint; W18.30XD Fall on same level, unspecified, subsequent encounter; Y90.8 Blood alcohol level of 240 mg/100 ml or more
CPT/HCPCS: 74177; 80053; 80307; 83690; 96360; 99285; 70450; 71260; 72125; 80320; 81003; 81015; 83735; 85025; 99284

== ENCOUNTER 2023-12-18 09:13 | Emergency (ER) | payer MEDICAID, SELFPAY ==
[2023-12-18 09:27] VITALS: BP 134/88; PULSE 79; RESP 18; TEMP 36.8; O2SAT 99
--- NOTE | 2023-12-18 10:30 | DI.CT_ITS ---
Exam(s) CT HEAD WO EXAM: CT HEAD WO CLINICAL HISTORY: Dizziness. TECHNIQUE: Imaging Protocol: Axial computed tomography images with coronal and sagittal reformatted images were created and reviewed COMPARISON: CT CT HEAD CERVICAL SPINE WO from 11/14/2023 FINDINGS: There are no skull fractures. There is no fluid in the visualized paranasal sinuses. Mastoid air carlos ls are clear. There is no fluid in the middle ear cavities. There is no evidence of intracranial hemorrhage, mass effect, or shift of midline structures. There are no extra-axial fluid collections. The ventricles are not enlarged or shifted and there is no blo od within the ventricular system nor within the basal cisterns. Mild calcification in the left basal ganglia is again noted. There is again noted mild bilateral periventricular hypodensity consistent with chronic small vessel disease. No evidence of acute territorial infarction. IMPRESSION: No acute intracranial findings on this noninfused CT scan of the brain. Called by myself to ER. RADIATION DOSE DELIVERED: 697.41mGy.cm Total DLP DATA REPOSITORY: All CT scans at this facility are submitted to the National Radiology Data Registry (NRDR) Dose Index Registry (DIR) with the [employer] (ACR). RADIATION OPTIMIZATION: All CT scans at this facility use at least one of these dose optimization te chniques: automated exposure control; mA and/or kV adjustment per patient size (includes targeted exa ms where dose is matched to clinical indication); or iterative reconstruction.
--- NOTE | 2023-12-18 10:30 | DI.RAD_ITS ---
Exam(s) XR FEMUR RT EXAM: XR FEMUR RT CLINICAL HISTORY: Fall, right hip pain. TECHNIQUE: 2D digital imaging was performed. COMPARISON: None FINDINGS: There is stable appearance of right hip prosthesis with no fracture or loosening evident. Regards to the remainder of the right femur, there is no evidence of fracture. No osseous lesions. No knee joint space narrowing. No knee joint effusion. No loosening of the hip prosthesis. IMPRESSION: Satisfactory stable appearance of the right hip prosthesis. Also no other acute right femur findings . DATA REPOSITORY: RADIATION DOSE DELIVERED:
--- NOTE | 2023-12-18 10:30 | DI.RAD_ITS ---
Exam(s) XR PELVIS AP EXAM: XR PELVIS AP CLINICAL HISTORY: Fall, hip pain. TECHNIQUE: 2D digital imaging was performed. COMPARISON: CR XR HIP RT COMPLETE AP PELVIS from 08/09/2021 FINDINGS: No evidence of pelvic nor hip fracture. Right hip prosthesis noted. Left hip appears unchanged, exh ibiting an element of avascular necrosis which appears stable. Sacroiliac joints unremarkable. IMPRESSION: Stable appearance right hip prosthesis. Stable appearance in the amount of avascular necrosis in the left femoral head DATA REPOSITORY: RADIATION DOSE DELIVERED:
--- NOTE | 2023-12-18 10:39 | ED.GENADUL_ITS ---
Discharge Plan Disposition Patient Disposition: Home Condition: Stable Discharge Details Clinical Impression: Trochanteric bursitis, right hip, Dizziness Primary Care Provider: OWEN GARRISON ED Provider: Meagan Hernandez Home Meds and New Rx's Prescriptions: No Action sildenafil 50 mg tablet 50 mg PO ONCE PRN Patient Comments: TAKE ONE TABLET BY MOUTH DIRECTED 60 MINUTES PRIOR TO INTERCOURSE Discharge Instructions Instructions: Dizziness (ED), Leg Pain (ED) Additional Instructions: No acute abnormalities on imaging. Take the meclizine as prescribed as needed for dizziness, Follow up with primary care provider in 3-5 days. Return to ED sooner if any worsening or concerns. Please take Tylenol or Ibuprofen with food every 4-6 hours as needed for pain and swelling. Referrals: [facility] [Outside] - 1 day (Call for referrals to help with alcohol use) OWEN GARRISON, COLOR TESTER [Primary Care Provider] - 3 days Discharge Data Discharge Date/Time-TO BE ENTERED AT DEPARTURE: 12/18/23 13:25 HPI General Mode of arrival: ambulatory . Date/Time Provider Initiated Documentation: 12/18/23 09:29 . Limitations to Documentation: no limitations . Information obtained by: patient, RN notes reviewed and old records reviewed . HPI Narrative: 48-year-old male presents to the ER with a chief complaint of right hip pain after falling on it approximately a month ago. He reports he has been walking with a limp since then. He also endorses dizziness upon looking up towards the ceiling. He reports that he has been seen by specialist and had multiple head CTs that are within normal limits. He also endorses daily drinking he did drink alcohol this morning. Past medical history includes DVT right hip placement. Related Data Home Medications Medication Instructions Recorded Confirmed sildenafil 50 mg tablet 50 mg PO ONCE PRN 10/28/23 11/14/23 Allergies Allergy/AdvReac Type Severity Reaction Status Date / Time No Known Allergies Allergy Unverified 10/28/23 04:52 General Stated Complaint: Orthopedic SARAH: 4 Review of Systems All systems reviewed & are unremarkable except as noted in HPI and below Constitutional Constitutional: Reports as per HPI and Reports frequent falls ENT Ears, Nose, Mouth, and Throat: Reports dizziness Musculoskeletal Musculoskeletal: Reports as per HPI and Reports arthralgias Neurologic Neurologic: Reports dizziness and Reports frequent falls Exam Narrative Exam Narrative: Constitutional: Alert and oriented x3. Appears stated age. Normal body habitus. Head: Normocephalic, no trauma. Eyes: Pupils PERRL, Red reflex noted, EOM's intact. Eyelids symmetrical without lesions, discharge, or swelling. ENT: Bilateral TM's WNL, External ear normal to inspection, no mastoid TTP, swelling, or erythema, Nasal turbinates WNL, no nasal discharge. Normal dentition, Posterior pharynx WNL, no exudate. Chest: RRR, Normal S1, S2, distal pulses intact. Resp: Lungs clear to auscultation bilaterally, no wheezes, rales, or rhonchi. Abdomen: Soft, non-distended, Normoactive bowel sounds all 4 quads. Musculoskeletal: Normal gait, 5/5 strength to all four extremities. Skin: No suspicious rashes or lesions. Capillary refill less than 2 sec. Neurologic: Cranial nerves II-XII intact. Alert and oriented x 3. Motor: No deficits noted. Sensory: Intact bilaterally all 4 extremities. Reflexes: DTR's intact bilaterally.. Hematologic/Lymphatic: No ecchymosis, no lymphadenopathy. Course Vital Signs Vital signs: Vital Signs Temperature 36.8 C 12/18/23 09:27 Pulse 79 12/18/23 09:27 Respiratory Rate 18 12/18/23 09:27 Blood Pressure 134/88 12/18/23 09:27 Pulse Oximetry 99 12/18/23 09:27 Temperature 36.8 C 12/18/23 09:27 Temperature Source Temporal Artery Scan 12/18/23 09:27 Pulse 79 12/18/23 09:27 Respiratory Rate 18 12/18/23 09:27 Respiratory Effort Normal 12/18/23 10:03 Blood Pressure 134/88 12/18/23 09:27 Blood Pressure Position Sitting 12/18/23 09:27 Pulse Oximetry 99 12/18/23 09:27 Oxygen Delivery Method Room Air 12/18/23 09:27 Oxygen Flow Rate 0 12/18/23 09:27 Medical Decision Making 48-year-old male presents to the ER with a chief complaint of right hip pain after falling on it approximately a month ago. He reports he has been walking with a limp since then. He also endorses dizziness upon looking up towards the ceiling. He reports that he has been seen by specialist and had multiple head CTs that are within normal limits. He also endorses daily drinking he did drink alcohol this morning. Past medical history includes DVT right hip placement. X-ray hip and pelvis ordered. Head CT and meclizine 12.5 mg p.o. X-rays at baseline CT head shows nothing acute see reports below. Will discharge patient with meclizine prescription and home care. Imaging Data Radiologic Study: Imaging: CT Scan Radiologist's impression: a CT:CT head wo Exam(s) CT HEAD WO EXAM: CT HEAD WO CLINICAL HISTORY: Dizziness. TECHNIQUE: Imaging Protocol: Axial computed tomography images with coronal and sagittal reformatted images were created and reviewed COMPARISON: CT CT HEAD CERVICAL SPINE WO from 11/14/2023 FINDINGS: There are no skull fractures. There is no fluid in the visualized paranasal sinuses. Mastoid air cells are clear. There is no fluid in the middle ear cavities. There is no evidence of intracranial hemorrhage, mass effect, or shift of midline structures. There are no extra-axial fluid collections. The ventricles are not enlarged or shifted and there is no blood within the ventricular system nor within the basal cisterns. Mild calcification in the left basal ganglia is again noted. There is again noted mild bilateral periventricular hypodensity consistent with chronic small vessel disease. No evidence of acute territorial infarction. IMPRESSION: No acute intracranial findings on this noninfused CT scan of the brain. Quality:SDOH Health Related Social Needs: Health related social needs inadequate housing, risk o f homeless, food insecurity PFSH All Active Problems (Updated 12/18/23 @ 13:13 by Meagan Hernandez NP) Dizziness (Acute) Alcoholic pancreatitis (Acute) Trochanteric bursitis, right hip (Acute) Avascular necrosis of bone of left hip (Acute) Chest pain (Acute) due to ETOH Hepatic steatosis (Acute) COVID-19 ruled out (Acute) Tobacco abuse (Acute) Impairment of balance (Acute) Chronic vertigo (Acute) Electrolyte and fluid disorder (Acute) Medical History On deep vein thrombosis (DVT) prophylaxis Surgical History 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) Cyst of right upper eyelid Family History Maternal Grandfather Alcohol abuse Maternal Uncle Alcohol abuse Social History Smoking/Tobacco Use Status: Current every day Tobacco Type: cigarettes Years smoked: 25 Smoking risk assessment performed?: Yes Alcohol Intake: current Alcohol Intake frequency: 3 or more drinks per day Alcohol type: beer and hard liquor Details: last drink was 2 weeks ago Drug use: Never Substance use type: does not use Details: Last ETOH 10/26 Housing: 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
[2023-12-18] MEDS: Meclizine 12.5 MG TAB PO (10:57)
[2023-12-18] MEDS: Lidocaine 5% Patch 1 PATCH TP (13:04)
[2023-12-18 13:21] VITALS: BP 151/90; PULSE 83; RESP 18; O2SAT 99
== END 2023-12-18 13:25 | disposition home or self-care (01) ==
PROVIDERS: Emergency Provider Registered Nurse Emergency; PCP Nurse Practitioner Family
DX: M25.551 Pain in right hip (principal); M70.61 Trochanteric bursitis, right hip; F10.10 Alcohol abuse, uncomplicated; R42 Dizziness and giddiness; Z96.641 Presence of right artificial hip joint; W19.XXXA Unspecified fall, initial encounter
CPT/HCPCS: 73552; 99284; 70450; 72170; 99283

== ENCOUNTER 2024-02-13 16:31 | Emergency (ER) | payer MEDICAID, SELFPAY ==
[2024-02-13] VITALS (15 sets, daily range): BP systolic 137–145; BP diastolic 68–102; PULSE 72–90; RESP 18–24; TEMP 36.9–37; O2SAT 92–99
--- NOTE | 2024-02-13 16:45 | DI.CT_ITS ---
Exam(s) CT ABDOMEN PELVIS W EXAM: CT ABDOMEN PELVIS W CLINICAL HISTORY: abd pain, n/v/d h/o pancreatitis. TECHNIQUE: Imaging Protocol: Axial computed tomography images with coronal and sagittal reformatted images were created and reviewed CONTRAST MATERIAL: Intravenous: Omnipaque 350 Contrast volume:100 ml Oral: no COMPARISON: CT CT CHEST/ABD/PEL W from 11/14/2023 CR XR PELVIS AP from 12/18/2023 FINDINGS: ABDOMEN and PELVIS: Lung Bases: Mild wall thickening distal esophagus. Focal abnormality. Liver: Attic steatosis. No suspicious mass. Gallbladder and biliary tract: No radiodense calculus. No biliary dilation. Pancreas: Normal density. No abnormal calcifications or inflammatory process. No evidence of mass. Spleen: Normal. Kidneys: Normal size, contour and axis. No radiodense stones. No obstructive uropathy. No suspicious masses seen. Adrenal glands: No masses seen. Vasculature: Abdominal aorta non-dilated. Soft tissues: Unremarkable. Bladder: No gross wall thickening. No calculi.No focal mass. Bowel: Stomach nearly empty and not well evaluated. No focal abnormality identified. Mild dilatatio n thickening of proximal loops of small bowel could indicate enteritis. More distal small bowel is u nremarkable. No obstruction. Normal quantity of stool. Mild diverticulosis.. Appendix normal. Peritoneal cavity: No ascites. No focal collection. No mesenteric inflammatory response. Bones: Right hip prosthesis. Serpiginous areas sclerosis in the left femoral head consistent with avascular necrosis. No collapse. Similar appearance to prior. Reproductive organs: Unremarkable. Lymph nodes: No pathologically enlarged lymph nodes. IMPRESSION:: Mild distension mild wall thickening of the left upper quadrant small bowel loops could indicate enteritis. Question mild wall thickening of the distal esophagus. Stomach not well evalua rodrick due to under distension and lack of oral contrast.. RADIATION DOSE DELIVERED: 789.16mGy.cm Total DLP DATA REPOSITORY: All CT scans at this facility are submitted to the National Radiology Data Registry (NRDR) Dose Index Registry (DIR) with the [employer] (ACR). RADIATION OPTIMIZATION: All CT scans at this facility use at least one of these dose optimization te chniques: automated exposure control; mA and/or kV adjustment per patient size (includes targeted exa ms where dose is matched to clinical indication); or iterative reconstruction.
[2024-02-13] MEDS: Normal Saline 1,000 ML 500 ML IV (17:09)
[2024-02-13] MEDS: Ondansetron 4 MG/2 ML VIAL IVP (17:14)
[2024-02-13 17:18] LABS: Abs Immature Grans 0.02 10^3/uL (0.0-0.06); Absolute Basophil Count 0.07 10^3/uL (0.0-0.2); Absolute Eosinophil Count 0.23 10^3/uL (0.0-0.7); Absolute Lymphocyte Count 3.31 10^3/uL (1.2-3.4); Absolute Neutrophil Count 2.92 10^3/uL (1.2-6.7); Eosinophils % 3.2 %; HCT 40.8 % (40.0-50.0); HGB 14.7 g/dL (13.5-17.5); Immature Grans % 0.3 %; Lymphocytes % 46.3 %; MCH 35.1 pg (27.0-33.0); MCV 97 fL (80-95); MPV 9.2 fL (8.0-11.0); Monocytes % 8.4 %; Neutrophils % 40.8 %; Platelet Count 147 10^3/uL (130-400); RBC 4.19 10^6/uL (4.36-5.78); RDW 12.5 % (11.8-14.1); RDW-SD 44.7 fL; WBC 7.15 10^3/uL (4.4-10.8)
[2024-02-13 17:36] LABS: ALT 26 U/L (16-63); AST 59 U/L (15-37); Albumin 3.9 g/dL (3.4-5.0); Alkaline Phosphatase 85 U/L (46-116); Anion Gap 14.9 mmol/L (3-11); BUN 10 mg/dL (7-18); Bilirubin, Total 0.25 mg/dL (0.2-1.0); CO2 22.1 mmol/L (21.0-32.0); CREATININE 0.6 mg/dL (0.70-1.30); Calcium 8.7 mg/dL (8.5-10.1); Chloride 102 mmol/L (98-107); Estimated GFR 119.82 (mL/min/1.73m2); Glucose 95 mg/dL (74-106); Lipase 160 U/L (16-77); Magnesium 1.6 mg/dL (1.8-2.4); Potassium 3.6 mmol/L (3.5-5.1); Sodium 139 mmol/L (136-145)
[2024-02-13] MEDS: Nicotine 21 MG/24 HR PATCH (17:58)
--- NOTE | 2024-02-13 18:08 | W.ED.GENAD ---
Discharge Plan Disposition Patient Disposition: Home Discharge Details Clinical Impression: Alcoholic pancreatitis, Gastritis Primary Care Provider: OWEN GARRISON ED Provider: Valery Padilla Discharge Instructions Instructions: Pancreatitis (DC) Additional Instructions: Please call your primary care provider first thing in the morning to schedule follow-up appointment. I encourage you to follow a clear liquid diet for the next 2 to 3 days. This includes torsten huma, chicken broth, Gatorade, and Jell-O. May advance to soft foods after this. Please stop drinking alcohol, as this will further inflame your pancreas Return to emergency care if you develop alcohol withdrawal/hallucinations, worsening/severe abdominal pain, inability to hold down fluids, fevers associated with belly pain, or if you are very worried and need to be rechecked again immediately Stand Alone Forms: Work Release Referrals: OWEN GARRISON, RADIAL [employer] OPERATOR [Primary Care Provider] - HPI General Date/Time Provider Initiated Documentation: 02/13/24 16:54. HPI Narrative: Paul is a 48-year-old male with history of EtOH abuse, pancreatitis, and tobacco use who presents to the emergency department for evaluation of concern of pancreatitis. He reports that 5 to 6 days ago he developed burning in his sternal area and a stabbing pain in the left lower chest and has been worsening since onset. He says this feels similar to previous episodes of pancreatitis he has had. He denies fever, other chest pain, shortness of breath, nausea/vomiting, change in p.o. intake, change in bowel or bladder function, black/tarry stools. He does smoke daily. Drinks 6 white claws/beers daily, says the only thing that has helped his discomfort has been drinking alcohol. Does admit to family history of cardiac disease. States he has not been diagnosed with hypertension, hyperlipidemia, or diabetes, but has not been to a doctor in over a year. Related Data Allergies Allergy/AdvReac Type Severity Reaction Status Date / Time No Known Allergies Allergy Unverified 02/13/24 16:32 General Stated Complaint: Abd Prob SARAH: 3 Review of Systems Narrative: see HPI Exam Const General: cooperative, healthy appearing, no acute distress and well developed HENMT Mouth: moist mucous membranes abnormal (slightly tacky) Resp Effort & Inspection: normal respiratory effort and able to speak in complete sentences Auscultation: clear to auscultation bilaterally Cardio Rate: regular rate Rhythm: regular rhythm GI Inspection: normal to inspection Palpation: soft, not firm, no guarding, no pulsatile masses, not rigid and tender in the LUQ Auscultation: normal bowel sounds Extrem General: no pedal edema Course Vital Signs Vital signs: Vital Signs Temperature 37 C 02/13/24 16:28 Pulse 90 02/13/24 16:28 Respiratory Rate 18 02/13/24 16:28 Blood Pressure 143/90 H 02/13/24 16:28 Pulse Oximetry 99 02/13/24 16:28 Temperature 37 C 02/13/24 16:28 Temperature Source Temporal Artery Scan 02/13/24 16:28 Pulse 89 02/13/24 16:56 Respiratory Rate 18 02/13/24 16:28 Respiratory Effort Normal 02/13/24 16:56 Blood Pressure 145/102 H 02/13/24 16:56 Blood Pressure Position Sitting 02/13/24 16:28 Pulse Oximetry 98 02/13/24 16:56 Oxygen Delivery Method Room Air 02/13/24 16:56 Oxygen Flow Rate 0 02/13/24 16:28 Pain Level 6 02/13/24 16:56 Lab/Test Results Lab/Test Results: Laboratory Tests Range/Units 02/13/24 17:00 WBC (4.4-10.8) 10^3/uL 7.15 RBC (4.36-5.78) 10^6/uL 4.19 L Hgb (13.5-17.5) g/dL 14.7 Hct (40.0-50.0) % 40.8 MCV (80-95) fL 97 H MCH (27.0-33.0) pg 35.1 H MCHC (32.0-36.0) % 36.0 RDW (11.8-14.1) % 12.5 Plt Count (130-400) 10^3/uL 147 MPV (8.0-11.0) fL 9.2 Immature Gran % % 0.3 Neutrophils % % 40.8 Lymphocytes % % 46.3 Monocytes % % 8.4 Eosinophils % % 3.2 Basophils % % 1.0 Nucleated RBC % (0.0-0.3) % 0.0 Absolute Neutrophils (1.2-6.7) 10^3/uL 2.92 Absolute Lymphocytes (1.2-3.4) 10^3/uL 3.31 Absolute Monocytes (0.1-0.8) 10^3/uL 0.60 Absolute Eosinophils (0.0-0.7) 10^3/uL 0.23 Absolute Basophils (0.0-0.2) 10^3/uL 0.07 Sodium (136-145) mmol/L 139 Potassium (3.5-5.1) mmol/L 3.6 Chloride (98-107) mmol/L 102 Carbon Dioxide (21.0-32.0) mmol/L 22.1 Anion Gap (3-11) mmol/L 14.9 H BUN (7-18) mg/dL 10 Creatinine (0.70-1.30) mg/dL 0.6 L Est GFR (CKD-EPI 2020) (mL/min/1.73m2) 119.82 Glucose (74-106) mg/dL 95 Calcium (8.5-10.1) mg/dL 8.7 Magnesium (1.8-2.4) mg/dL 1.6 L Total Bilirubin (0.2-1.0) mg/dL 0.25 AST (15-37) U/L 59 H ALT (16-63) U/L 26 Alkaline Phosphatase (46-116) U/L 85 Total Protein (6.4-8.2) g/dL 8.0 Albumin (3.4-5.0) g/dL 3.9 Lipase (16-77) U/L 160 H Medical Decision Making Paul is a 48-year-old male with history of EtOH abuse, pancreatitis, and tobacco use who presents to the emergency department for evaluation of concern of pancreatitis. He reports that 5 to 6 days ago he developed burning in his sternal area and a stabbing pain in the left lower chest and has been worsening since onset. He says this feels similar to previous episodes of pancreatitis he has had. He denies fever, other chest pain, shortness of breath, nausea/vomiting, change in p.o. intake, change in bowel or bladder function, black/tarry stools. He does smoke daily. Drinks 6 white claws/beers daily, says the only thing that has helped his discomfort has been drinking alcohol. Does admit to family history of cardiac disease. States he has not been diagnosed with hypertension, hyperlipidemia, or diabetes, but has not been to a doctor in over a year. Physical exam remarkable for significant tenderness with palpation of LUQ. Abdomen soft, nondistended, normoactive bowel sounds. No rigidity/guarding. Easy work of breathing, lung sounds clear bilaterally. Normal heart sounds. Moving extremities equally. Slightly tachy MM. DDx includes but is not limited to: pancreatitis, ACS, pneumothorax, gastritis, electrolyte imbalance, dehydration I independently interpreted the following tests: EKG reassuring, normal sinus rhythm rate 77. No changes consistent with acute ischemia. CBC reassuring. Mild hypomagnesemia noted, magnesium 1.6. Lipase slightly elevated at 160. He does have an elevated lactate of 3.3, with an anion gap likely due to alcohol. This is in the absence of any history or physical exam findings concerning for mesenteric ischemia or sepsis. Patient's EtOH level elevated at 347.1. CT reassuring, no acute findings noted consistent with today's symptoms other than findings consistent with gastritis. While in the emergency department Paul received IV fluids, Zofran for nausea, and Pepcid for gastritis. He reports that the medication he was given (likely famotidine) with his pain. He was able to tolerate p.o. torsten huma without difficulty. As patient is able to tolerate p.o. and pain is controlled without medications in light of reassuring labs, patient is appropriate for at home management, especially as he is requesting to return home instead of being admitted for inpatient management. He reports he is able to cease alcohol consumption without any difficulties, denies history of DTs. Reviewed discharge instructions with patient, including importance of follow-up with PCP and alcohol cessation. Recommend clear liquids. Reviewed red flags indicate need for return to emergency care. He is agreeable with plan of care. Work note given for tomorrow. Imaging Data Radiologic Study: Radiologist's impression: PROCEDURE INFORMATION: Exam: CT Abdomen And Pelvis With Contrast Exam date and time: 02/13/2024 6:18 PM Age: 48 years old Clinical indication: Abdominal pain; Acute; Patient HX: Abd pain, n/v/d h/o pancreatitis TECHNIQUE: Imaging protocol: Computed tomography of the abdomen and pelvis with contrast. Contrast material: OMNIPAQUE; Contrast volume: 100 ml; Contrast route: INTRAVENOUS (IV); COMPARISON: CT CHEST/ABD/PEL W 11/14/2023 9:54 AM FINDINGS: Coronary arteries: Coronary artery calcifications identified. Esophagus: There is mild wall thickening involving the distal esophagus. Liver: Normal. No mass. Gallbladder and biliary ducts: Possible gallstones at the gallbladder neck level. Pancreas: Normal. No ductal dilation. Spleen: Normal. No splenomegaly. Adrenal glands: Normal. No mass. Kidneys and ureters: Normal. No hydronephrosis. Stomach and bowel: The stomach is not well distended, however the rugal folds appear slightly thickened and hyperemic compared to previous exam. Appendix: No evidence of appendicitis. Intraperitoneal space: Unremarkable. No free air. No significant fluid collection. Vasculature: Mild atherosclerotic change noted in the vasculature. Lymph nodes: Unremarkable. No enlarged lymph nodes. Urinary bladder: Unremarkable as visualized. Reproductive: Unremarkable as visualized. Bones/joints: Right hip prosthesis. Soft tissues: Unremarkable. IMPRESSION: 1. Possible esophagitis/gastritis. 2. Possible gallbladder disease. Consider sonography. Quality:SDOH Health Related Social Needs: Health related social needs inadequate housing, risk of homeless, food insecurity PFSH All Active Problems (Updated 02/13/24 @ 23:49 by Valery Obrien) Gastritis (Acute) Alcoholic pancreatitis (Acute) Trochanteric bursitis, right hip (Acute) Avascular necrosis of bone of left hip (Acute) Chest pain (Acute) due to ETOH Hepatic steatosis (Acute) COVID-19 ruled out (Acute) Tobacco abuse (Acute) Impairment of balance (Acute) Chronic vertigo (Acute) Electrolyte and fluid disorder (Acute) Medical History On deep vein thrombosis (DVT) prophylaxis Surgical History 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) Cyst of right upper eyelid Family History Maternal Grandfather Alcohol abuse Maternal Uncle Alcohol abuse Social History Smoking/Tobacco Use Status: Current every day Tobacco Type: cigarettes Years smoked: 25 Smoking risk assessment performed?: Yes Alcohol Intake: current Alcohol Intake frequency: 3 or more drinks per day Alcohol type: beer and hard liquor Details: last drink was 2 weeks ago Drug use: Never Substance use type: does not use Details: Last ETOH 10/26 Housing: 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 PAWSS Have you Been Recently Intoxicated or Drunk Within the Last 30 days?: Yes Have you Ever Experienced Previous Episodes of Alcohol Withdrawal?: Yes Have you ever Experienced Withdrawal Seizures?: No Have you ever Experienced Delirium Tremens(DT)s?: No Have you ever undergone Alcohol Rehabilitation Treatment (i.e, inpt ot outpatient treatment programs)?: No Have you ever Experienced Blackouts?: Yes Have you ever Combined Alcohol with other Downers within the last 90 days?: No Have you ever Combined Alcohol with any other Substance of Abuse during the last 90 days?: No Evidence of Increased Autonomic Activity (i.e. HR>120, tremor, sweating, agitation, nausea)?: No Result: 3
[2024-02-13] MEDS: Omnipaque 350 MG/ML 100 ML BTL IJ (18:15)
--- NOTE | 2024-02-13 18:15 | RT.EKG_ITS ---
APPROVED REPORT Exam: Resting ECG Reason for Exam: chest pain Patient Location: E HR:77 bpm ECG Measurements Heart Rate 77 AXIS ME 182 P 69 QRSd 89 QRS 53 QT 390 T 67 QTc 443 Conclusion Sinus rhythm...normal P axis, V-rate 60- 99 Narrow complex normal sinus rhythm at a rate of 77. Normal axis. Intervals within normal limits. N o ST segment abnormalities. T wave flattening in aVL. Appears similar to prior dated earlier this y ear.
--- NOTE | 2024-02-13 18:15 | DI.RAD_ITS ---
Exam(s) XR CHEST 2V PA LATERAL EXAM: XR CHEST 2V PA LATERAL CLINICAL HISTORY: CP TECHNIQUE: 2D digital imaging was performed. Two views. COMPARISON: No exams were available for comparison FINDINGS: HEART: Normal size. Aorta: Not dilated. PULMONARY VASCULATURE: Normal. MEDIASTINUM: Unremarkable. LUNGS: Clear. PLEURAL SPACE: No pleural effusion or pneumothorax. BONE:Unremarkable for age. SOFT TISSUES: Unremarkable. IMPRESSION: No acute abnormality. DATA REPOSITORY: RADIATION DOSE DELIVERED:
[2024-02-13 18:16] LABS: Lactate 3.3 mmol/L (0.6-1.4)
[2024-02-13 18:17] LABS: Lab Add On Test DONE
[2024-02-13] MEDS: Normal Saline - Diluent 50 ML VIAL IJ (18:18)
[2024-02-13 18:42] LABS: Troponin I < 50 ng/L (< or =60)
[2024-02-13 18:43] LABS: ETHANOL BLOOD 347.1 mg/dL (<10)
[2024-02-13] MEDS: Lactated Ringers 1,000 ML 200 ML IV (18:58)
--- NOTE | 2024-02-13 19:20 | DI.VRAD_ITS ---
PROCEDURE INFORMATION: Exam: CT Abdomen And Pelvis With Contrast Exam date and time: 02/13/2024 6:18 PM Age: 48 years old Clinical indication: Abdominal pain; Acute; Patient HX: Abd pain, n/v/d h/o pancreatitis TECHNIQUE: Imaging protocol: Computed tomography of the abdomen and pelvis with contrast. Contrast material: OMNIPAQUE; Contrast volume: 100 ml; Contrast route: INTRAVENOUS (IV); COMPARISON: CT CHEST/ABD/PEL W 11/14/2023 9:54 AM FINDINGS: Coronary arteries: Coronary artery calcifications identified. Esophagus: There is mild wall thickening involving the distal esophagus. Liver: Normal. No mass. Gallbladder and biliary ducts: Possible gallstones at the gallbladder neck level. Pancreas: Normal. No ductal dilation. Spleen: Normal. No splenomegaly. Adrenal glands: Normal. No mass. Kidneys and ureters: Normal. No hydronephrosis. Stomach and bowel: The stomach is not well distended, however the rugal folds appear slightly thickened and hyperemic compared to previous exam. Appendix: No evidence of appendicitis. Intraperitoneal space: Unremarkable. No free air. No significant fluid collection. Vasculature: Mild atherosclerotic change noted in the vasculature. Lymph nodes: Unremarkable. No enlarged lymph nodes. Urinary bladder: Unremarkable as visualized. Reproductive: Unremarkable as visualized. Bones/joints: Right hip prosthesis. Soft tissues: Unremarkable. IMPRESSION: 1. Possible esophagitis/gastritis. 2. Possible gallbladder disease. Consider sonography. Dictated and Authenticated by: Gina Lezama MD. Ordering:ELLEN Rasmussen MD
--- NOTE | 2024-02-13 19:22 | DI.VRAD_ITS ---
PROCEDURE INFORMATION: Exam: XR Chest Exam date and time: 02/13/2024 6:29 PM Age: 48 years old Clinical indication: Pain; Other: Cp TECHNIQUE: Imaging protocol: Radiologic exam of the chest. Views: 2 views. COMPARISON: CT CHEST/ABD/PEL W 11/14/2023 9:54 AM FINDINGS: Lungs: Unremarkable. No consolidation. Pleural spaces: Unremarkable. No pleural effusion. No pneumothorax. Heart/Mediastinum: Unremarkable. No cardiomegaly. Bones/joints: Unremarkable. IMPRESSION: No evidence for acute abnormality in the chest. Dictated and Authenticated by: Gina Lezama MD. Ordering:ELLEN Rasmussen MD
[2024-02-13] MEDS: Famotidine 20 MG/2 ML VIAL IVP (20:47)
[2024-02-13 21:56] LABS: Troponin I < 50 ng/L (< or =60)
--- NOTE | 2024-02-13 23:55 | NUR.NOTE ---
Referral to follow up with PCP for Pancreatitis with in the week 1-2 days. Nursing Note:
== END 2024-02-13 23:47 | disposition home or self-care (01) ==
PROVIDERS: Emergency Provider Nurse Practitioner Family; PCP Nurse Practitioner Family
DX: K85.20 Alcohol induced acute pancreatitis without necrosis or infection; K29.70 Gastritis, unspecified, without bleeding; F17.210 Nicotine dependence, cigarettes, uncomplicated; F10.10 Alcohol abuse, uncomplicated
CPT/HCPCS: 80053; 83690; 93005; 96361; 96374; 96375; 99285; 71046; 74177; 80320; 83605; 83735; 84484; 85025; 93010; 99284; J2405; J3490

== ENCOUNTER 2024-02-22 03:32 | Emergency (ER) | payer MEDICAID, SELFPAY ==
[2024-02-22] VITALS (35 sets, daily range): BP systolic 118–164; BP diastolic 65–95; PULSE 78–107; RESP 12–28; TEMP 37; O2SAT 92–100
--- NOTE | 2024-02-22 03:15 | RT.EKG_ITS ---
APPROVED REPORT Exam: Resting ECG Reason for Exam: Chest pain Patient Location: E HR:94 bpm ECG Measurements Heart Rate 94 AXIS SD 171 P 57 QRSd 87 QRS 70 QT 351 T 71 QTc 439 Conclusion Sinus rhythm...normal P axis, V-rate 60- [address] segment or t wave abnormalities to suggest occlusive mi
[2024-02-22] MEDS: Normal Saline 1,000 ML 1000 ML IV ×3 (03:30→05:24)
[2024-02-22] MEDS: MORPHine 4 MG/ML SYR IVP (03:40)
[2024-02-22] MEDS: Ondansetron 4 MG/2 ML VIAL IM (03:41)
[2024-02-22 03:45] LABS: Lactate 3.7 mmol/L (0.6-1.4)
--- NOTE | 2024-02-22 03:45 | DI.CT_ITS ---
Exam(s) CT ABDOMEN PELVIS W EXAM: CT ABDOMEN PELVIS W CLINICAL HISTORY: epigastric abd pain and TTP TECHNIQUE: Imaging Protocol: Axial computed tomography images with coronal and sagittal reformatted images were created and reviewed. CONTRAST MATERIAL: Intravenous: Omnipaque 350 Contrast volume:100 mL Oral: No COMPARISON: CT UPPER ABD WITH CONTRAST (P) from 10/26/[address] CHEST/ABD/PEL W from 01/09/2019 US US ABDOMEN from 02/21/[address] CHEST PE ABD PELVIS W from 10/28/[address] CHEST/ABD/PEL W from 11/14/[address] ABDOMEN PELVIS W from 02/13/2024 FINDINGS: ABDOMEN: Lung Bases: There is mild thickening of the wall of the distal esophagus. Coronary artery calcificat ion and/or stents are present. Liver: Normal density. No measurable mass. Portal, Superior Mesenteric, and Splenic Veins: Unremarkable. Gallbladder and Biliary Tract: No radiodense calculus or dilation. Pancreas: Calcifications are again seen in the pancreas which likely reflect prior pancreatitis. Spleen: Normal. Adrenals: No masses seen. Kidneys: Normal size, contour and axis. No radiodense stones or obstructive uropathy. There is again seen a 1.5 cm cyst at the superior pole of the left kidney. This is been stable since 2019. No foll ow-up is recommended. Abdominal Aorta: Abdominal portion non-dilated. Atherosclerotic calcification is present. Bowel: There diverticula in the colon but no evidence of acute diverticulitis. There is no evidence of bowel wall thickening or bowel obstruction. Appendix is unremarkable. Peritoneal Cavity: No ascites, collection or mesenteric inflammatory response. No free air. Lymph Nodes: Within normal limits. Bones: Within normal limits for the patient's age. There are old bilateral rib fractures present. T he patient has a right total hip replacement. There are findings in the left femoral head most consi stent with avascular necrosis. Soft Tissues: Unremarkable. PELVIS: Bladder: There is diffuse thickening of the wall of the urinary bladder. Reproductive Organs: There is a rounded soft tissue density in the right inguinal canal. This may re present the testicle. Please correlate with physical exam. Lymph Nodes: Within normal limits. Bones: Within normal limits for the patient's age. IMPRESSION: 1. Mild thickening of the wall of the distal esophagus. This may represent an esophagitis. Please c orrelate clinically. Further evaluation may be considered with the barium swallow examination or dir ect visualization. 2. Diffuse thickening of the wall of the urinary bladder. This may be due to underdistention, bladde r outlet obstruction, cystitis or neurogenic bladder. 3. Findings of avascular necrosis in the left femoral head. 4. Rounded soft tissue density in the right inguinal canal which may represent the testicle. Please correlate with physical exam. RADIATION DOSE DELIVERED: 704.36mGy.cm Total DLP DATA REPOSITORY: All CT scans at this facility are submitted to the National Radiology Data Registry (NRDR) Dose Index Registry (DIR) with the [employer] (ACR). RADIATION OPTIMIZATION: All CT scans at this facility use at least one of these dose optimization te chniques: automated exposure control; mA and/or kV adjustment per patient size (includes targeted exa ms where dose is matched to clinical indication); or iterative reconstruction.
[2024-02-22 03:52] LABS: Abs Immature Grans 0.02 10^3/uL (0.0-0.06); Absolute Basophil Count 0.06 10^3/uL (0.0-0.2); Absolute Eosinophil Count 0.19 10^3/uL (0.0-0.7); Absolute Lymphocyte Count 1.83 10^3/uL (1.2-3.4); Absolute Monocyte Count 0.74 10^3/uL (0.1-0.8); Absolute Neutrophil Count 2.59 10^3/uL (1.2-6.7); Basophils % 1.1 %; Eosinophils % 3.5 %; HCT 36.5 % (40.0-50.0); HGB 12.9 g/dL (13.5-17.5); Immature Grans % 0.4 %; Lymphocytes % 33.7 %; MCH 35.5 pg (27.0-33.0); MCHC 35.3 % (32.0-36.0); MCV 101 fL (80-95); MPV 9.3 fL (8.0-11.0); Monocytes % 13.6 %; Neutrophils % 47.7 %; Platelet Count 170 10^3/uL (130-400); RBC 3.63 10^6/uL (4.36-5.78); RDW 12.7 % (11.8-14.1); RDW-SD 47.4 fL; WBC 5.43 10^3/uL (4.4-10.8)
[2024-02-22] MEDS: Normal Saline - Diluent 50 ML VIAL IJ (04:02)
[2024-02-22] MEDS: Omnipaque 350 MG/ML 100 ML BTL IJ (04:02)
--- NOTE | 2024-02-22 04:15 | W.ED.GENAD ---
Discharge Plan Disposition Patient Disposition: Home Condition: Good Discharge Details Clinical Impression: Gastroenteritis Primary Care Provider: OWEN GARRISON ED Provider: Pascale Mendoza Home Meds and New Rx's Prescriptions: New ondansetron HCl 4 mg tablet 4 mg PO Q8H PRNQty: 14 0RF Discharge Instructions Instructions: Viral gastroenteritis in adults, Abdominal Pain, Adult ED Additional Instructions: Tylenol and ibuprofen over the counter for pain; follow the directions on the bottle. Zofran up to every 8 hours as needed for vomiting. Call your primary care doctor tomorrow to schedule an appointment within the next 5 days to followup on your visit here. Discuss your low potassium and magnesium at that visit. Return to the emergency department for new or worsening symptoms including fever, new/different/worse abdominal pain, inability to keep down fluids, or if you have any other concerns. Referrals: OWEN GARRISON, WILDLIFE ECOLOGY PROFESSOR [Primary Care Provider] - [facility] General Mode of arrival: ambulatory. Date/Time Provider Initiated Documentation: 02/22/24 03:33. Limitations to Documentation: no limitations. Information obtained by: patient and old records reviewed. HPI Narrative: 48yo M with hx ETOH abuse, alcoholic pancreatitis, presenting with epigastric pain that feels like prior episodes of pancreatitis. Pain is burning, epigastric, and severe. Has been intermittent for days but has now been constant for about 6 hours. No alleviating or aggravating factors. Associated nausea and vomiting, nonbloody nonbilious. He is otherwise in his usual state of health with no fevers, chills, rash, lower abdominal pain, testicular pain, dysuria, hematuria, flank pain, chest moya, shortness of breath, LE edema, or other concerns. Related Data Home Medications Medication Instructions Recorded Confirmed ondansetron HCl 4 mg tablet 4 mg PO Q8H PRN #14 tabs 02/22/24 Previous Rx's Medication Instructions Recorded ondansetron HCl 4 mg tablet 4 mg PO Q8H PRN #14 tabs 02/22/24 Allergies Allergy/AdvReac Type Severity Reaction Status Date / Time No Known Allergies Allergy Unverified 02/22/24 03:34 General Stated Complaint: Chest Pain SARAH: 2 Review of Systems Narrative: see HPI Exam Narrative Exam Narrative: General: Alert, well nourished, in no acute distress. Head: Normocephalic, atraumatic Neck: Trachea midline, ?Neck supple. ENT: ?MMM.? Cardiac: ?RRR, no murmurs appreciated Resp: No respiratory distress. CTAB. Abd: ?Soft, non-distended, TTP of epigastrium with no rebound or guarding. : ?No suprapubic tenderness. No CVA tenderness. Extremities: ?No deformities.? No peripheral edema. Neurologic: GCS 15. ? Moves all extremities freely against gravity Course Vital Signs Vital signs: Vital Signs Temperature 37 C 02/22/24 03:29 Pulse 107 H 02/22/24 03:29 Respiratory Rate 22 02/22/24 03:29 Blood Pressure 164/95 H 02/22/24 03:29 Pulse Oximetry 100 02/22/24 03:29 Temperature 37 C 02/22/24 03:29 Temperature Source Temporal Artery Scan 02/22/24 03:29 Pulse 96 H 02/22/24 03:52 Respiratory Rate 20 02/22/24 03:52 Respiratory Effort Normal, Non-Labored 02/22/24 03:35 Respiratory Depth Normal 02/22/24 03:35 Respiratory Pattern Normal 02/22/24 03:35 Blood Pressure 134/85 02/22/24 03:52 Blood Pressure Position Sitting 02/22/24 03:29 Pulse Oximetry 99 02/22/24 03:52 Oxygen Delivery Method Room Air 02/22/24 03:52 Oxygen Flow Rate 0 02/22/24 03:52 Pain Level 8 02/22/24 03:35 Lab/Test Results Lab/Test Results: Laboratory Tests Range/Units 02/22/24 03:36 WBC (4.4-10.8) 10^3/uL 5.43 RBC (4.36-5.78) 10^6/uL 3.63 L Hgb (13.5-17.5) g/dL 12.9 L Hct (40.0-50.0) % 36.5 L MCV (80-95) fL 101 H MCH (27.0-33.0) pg 35.5 H MCHC (32.0-36.0) % 35.3 RDW (11.8-14.1) % 12.7 Plt Count (130-400) 10^3/uL 170 MPV (8.0-11.0) fL 9.3 Immature Gran % % 0.4 Neutrophils % % 47.7 Lymphocytes % % 33.7 Monocytes % % 13.6 Eosinophils % % 3.5 Basophils % % 1.1 Nucleated RBC % (0.0-0.3) % 0.0 Absolute Neutrophils (1.2-6.7) 10^3/uL 2.59 Absolute Lymphocytes (1.2-3.4) 10^3/uL 1.83 Absolute Monocytes (0.1-0.8) 10^3/uL 0.74 Absolute Eosinophils (0.0-0.7) 10^3/uL 0.19 Absolute Basophils (0.0-0.2) 10^3/uL 0.06 VBG Lactate (0.6-1.4) mmol/L 3.7 H* Medical Decision Making 48yo M with hx ETOH abuse, alcoholic pancreatitis, presenting with epigastric pain that feels like prior episodes of pancreatitis. Assoicated N/V. Otherwise well. Hypertensive and slightly tachcyardiac on arrival (suspect 2/t pain), afebrile. TTP of epigastrium on exam, no perionteal signs, negative cid's. EKG on arrival sinus tachycardia, no ST segment or T wave abnormalities to suggest occlusive OR. High level of suspicion for pancreatitis; will evaluate further for this and other acute intraabodminal pathology with labs and CT imaging. Given 2L IVFB, IV tylenol/toradol/morphine/zofran for symptoms. Labs reviewed as below, CBC reassuring with no leukocytosis and mild anemia at 12.9, CMP with hypokalemia at 3.3 (IV replacement ordered), Mg low at 1.1 (replacement ordered), lactate elevated at 3.7 (will recheck after fluid bolus), lipase slightly elevated 78 not overly suggestive of pancreatitis, ETOH negative, troponin negative in the setting of 6+ hours of constant pain (would not further pursue ACS), BNP normal, UA not suggestive of infection. CT abd pelvis independently reviewed; no obstruction or free fluid on my view, agree with radiology read below. Repeat VS normalized, repeat lactate improved to 1.5 Given additional IV fluid to tolerate IV potassium. On reassessment he reports pain has entirely resolved. Workup most consistent with gastroenteritis. PO challenged and tolerated well. Discharged home with short course of zofran. Discharge instructions and return precautions were reviewed with patient who verbalized understanding. All questions were answered and he is in full agreement with the plan. Imaging Data Radiologic Study: Imaging: CT Scan Radiologist's impression: IMPRESSION: Bowel findings which may be indicative of gastroenteritis. No obstruction. Mildly fatty liver. Few colonic diverticula. AVN of the left hip. Lab Data Lab results reviewed: Yes I reviewed the patient's lab results. Labs: Laboratory Tests Range/Units 02/22/24 02/22/24 03:36 06:03 WBC (4.4-10.8) 10^3/uL 5.43 RBC (4.36-5.78) 10^6/uL 3.63 L Hgb (13.5-17.5) g/dL 12.9 L Hct (40.0-50.0) % 36.5 L MCV (80-95) fL 101 H MCH (27.0-33.0) pg 35.5 H MCHC (32.0-36.0) % 35.3 RDW (11.8-14.1) % 12.7 Plt Count (130-400) 10^3/uL 170 MPV (8.0-11.0) fL 9.3 Immature Gran % % 0.4 Neutrophils % % 47.7 Lymphocytes % % 33.7 Monocytes % % 13.6 Eosinophils % % 3.5 Basophils % % 1.1 Nucleated RBC % (0.0-0.3) % 0.0 Absolute Neutrophils (1.2-6.7) 10^3/uL 2.59 Absolute Lymphocytes (1.2-3.4) 10^3/uL 1.83 Absolute Monocytes (0.1-0.8) 10^3/uL 0.74 Absolute Eosinophils (0.0-0.7) 10^3/uL 0.19 Absolute Basophils (0.0-0.2) 10^3/uL 0.06 VBG Lactate (0.6-1.4) mmol/L 3.7 H* 1.5 H Sodium (136-145) mmol/L 139 Potassium (3.5-5.1) mmol/L 3.3 L Chloride (98-107) mmol/L 100 Carbon Dioxide (21.0-32.0) mmol/L 24.8 Anion Gap (3-11) mmol/L 14.2 H BUN (7-18) mg/dL 7 Creatinine (0.70-1.30) mg/dL 1.3 Est GFR (CKD-EPI 2020) (mL/min/1.73m2) 68.19 Glucose (74-106) mg/dL 148 H Calcium (8.5-10.1) mg/dL 9.2 Magnesium (1.8-2.4) mg/dL 1.1 L Total Bilirubin (0.2-1.0) mg/dL 0.47 AST (15-37) U/L 64 H ALT (16-63) U/L 36 Alkaline Phosphatase (46-116) U/L 81 Troponin I (< or =60) ng/L < 50 NT-Pro-B Natriuret Pep (<300) pg/mL 15 Total Protein (6.4-8.2) g/dL 7.8 Albumin (3.4-5.0) g/dL 3.9 Lipase (16-77) U/L 78 H Urine Color (Yellow) Yellow Urine Clarity (Clear) Clear Urine pH (5-8) 6.5 Ur Specific [place] (1.005-1.025) 1.010 Urine Protein (Neg-Trace) mg/dL Negative Urine Ketones (Negative) mg/dL Negative Urine Blood (Negative) Negative Urine Nitrite (Negative) Negative Urine Bilirubin (Negative) Negative Urine Urobilinogen (Up to 0.2) mg/dL 0.2 Ur Leukocyte Esterase (Negative) Negative Urine Glucose (Negative) mg/dL Negative Ethyl Alcohol (<10) mg/dL 7.3 Quality:SDOH Health Related Social Needs: Health related social needs inadequate housing, risk of homeless, food insecurity PFSH All Active Problems (Updated 02/22/24 @ 07:11 by Pascale Mendoza MD) Gastroenteritis (Acute) Gastritis (Acute) Alcoholic pancreatitis (Acute) Trochanteric bursitis, right hip (Acute) Avascular necrosis of bone of left hip (Acute) Chest pain (Acute) due to ETOH Hepatic steatosis (Acute) COVID-19 ruled out (Acute) Tobacco abuse (Acute) Impairment of balance (Acute) Chronic vertigo (Acute) Electrolyte and fluid disorder (Acute) Medical History On deep vein thrombosis (DVT) prophylaxis Surgical History 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) Cyst of right upper eyelid Family History Maternal Grandfather Alcohol abuse Maternal Uncle Alcohol abuse Social History Smoking/Tobacco Use Status: Current every day Tobacco Type: cigarettes Years smoked: 25 Smoking risk assessment performed?: Yes Alcohol Intake: current Alcohol Intake frequency: 3 or more drinks per day Alcohol type: beer and hard liquor Details: last drink was 2 weeks ago Drug use: Never Substance use type: does not use Housing: 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
[2024-02-22 04:22] LABS: ALT 36 U/L (16-63); AST 64 U/L (15-37); Albumin 3.9 g/dL (3.4-5.0); Alkaline Phosphatase 81 U/L (46-116); Anion Gap 14.2 mmol/L (3-11); BUN 7 mg/dL (7-18); Bilirubin, Total 0.47 mg/dL (0.2-1.0); CO2 24.8 mmol/L (21.0-32.0); CREATININE 1.3 mg/dL (0.70-1.30); Calcium 9.2 mg/dL (8.5-10.1); Chloride 100 mmol/L (98-107); ETHANOL BLOOD 7.3 mg/dL (<10); Estimated GFR 68.19 (mL/min/1.73m2); Glucose 148 mg/dL (74-106); Lipase 78 U/L (16-77); Magnesium 1.1 mg/dL (1.8-2.4); NT-proBNP 15 pg/mL (<300); Potassium 3.3 mmol/L (3.5-5.1); Sodium 139 mmol/L (136-145); Total Protein 7.8 g/dL (6.4-8.2); Troponin I < 50 ng/L (< or =60)
[2024-02-22] MEDS: ACETAMINOPHEN 1,000 MG/100 ML BTL 400 MG IVPB (04:27)
[2024-02-22] MEDS: Ketorolac 15 MG/ML VIAL IVP (04:27)
[2024-02-22] MEDS: Magnesium Oxide 400 MG TAB (04:51)
[2024-02-22] MEDS: MAGNESIUM SULFATE 1 GM/100 ML BAG IVINF (04:52)
[2024-02-22] MEDS: POTASSIUM CHLORIDE 20 MEQ/100 ML BAG 50 MEQ IVINF (04:52)
[2024-02-22 06:13] LABS: Lactate 1.5 mmol/L (0.6-1.4)
[2024-02-22 06:17] LABS: Bilirubin Negative (Negative); Blood Negative (Negative); Clarity Clear (Clear); Glucose Negative (Negative); Ketones Negative (Negative); Leukocyte Esterase Negative (Negative); Nitrite Negative (Negative); Urobilinogen 0.2 mg/dL (Up to 0.2); pH 6.5 (5-8)
--- NOTE | 2024-02-22 06:44 | DI.VRAD_ITS ---
PROCEDURE INFORMATION: Exam: CT Abdomen And Pelvis With Contrast Exam date and time: 02/22/2024 4:18 AM Age: 48 years old Clinical indication: Abdominal tenderness and other: Epigastric abd pain and ttp TECHNIQUE: Imaging protocol: Computed tomography of the abdomen and pelvis with contrast. Contrast material: OMNIPAQUE 350; Contrast volume: 100 ml; Contrast route: INTRAVENOUS (IV); COMPARISON: CT ABDOMEN PELVIS W 02/13/2024 6:[address] chest 10/28/2023 FINDINGS: Liver: Normal. No mass. Gallbladder and biliary ducts: Normal. No calcified stones. No ductal dilation. Pancreas: Normal. No ductal dilation. Spleen: Normal. No splenomegaly. Adrenal glands: Normal. No mass. Kidneys and ureters: Kidneys enhance symmetrically. No renal stones or hydronephrosis. 1.5 cm left renal low-attenuation finding is unchanged from the prior studies.. No stones or hydronephrosis. Stomach and bowel: Colonic diverticula. There are a few mildly distended , thickened loops of small bowel in the upper abdomen . Fluid is seen throughout the small bowel and colon concerning for gastroenteritis. No transition zone to suggest obstruction. Appendix: Normal appendix. Intraperitoneal space: Unremarkable. No free air. No significant fluid collection. Vasculature: Atherosclerotic disease. No aortic aneurysm. Lymph nodes: Unremarkable. No enlarged lymph nodes. Urinary bladder: Unremarkable as visualized. Reproductive: Unremarkable as visualized. Bones/joints: Right hip replacement. AVN of the left hip. Degenerative changes in the spine. Old, healed left posterior rib fractures. Soft tissues: Unremarkable. IMPRESSION: Bowel findings which may be indicative of gastroenteritis. No obstruction. Mildly fatty liver. Few colonic diverticula. AVN of the left hip. Dictated and Authenticated by: Pascale Duff MD. Ordering:JAZMIN Ashraf MD
[2024-02-22] MEDS: Ondansetron O.D.T. 4 MG TABEF, 3 TABS/BTL PO (07:37)
== END 2024-02-22 07:48 | disposition home or self-care (01) ==
PROVIDERS: Emergency Provider Student in an Organized Health Care Education/Training Program; PCP Nurse Practitioner Family
DX: K52.9 Noninfective gastroenteritis and colitis, unspecified (principal)
CPT/HCPCS: 36415; 80053; 83690; 93005; 96361; 96365; 96367; 96368; 96372; 96375; 99285; 74177; 80320; 81003; 83605; 83735; 83880; 84484; 85025; 93010; J0131; J1885; J2270; J2405; J3475; J3480; J3490

== ENCOUNTER 2024-02-28 20:24 | Inpatient (IN) | payer MEDICAID, SELFPAY ==
[2024-02-28] VITALS (38 sets, daily range): BP systolic 63–179; BP diastolic 41–125; PULSE 76–122; RESP 13–23; O2SAT 95–99
--- NOTE | 2024-02-28 20:15 | RT.EKG_ITS ---
APPROVED REPORT Exam: Resting ECG Reason for Exam: Chest pain Patient Location: E HR:98 bpm ECG Measurements Heart Rate 98 AXIS PA 183 P 60 QRSd 88 QRS 56 QT 335 T 65 QTc 427 Conclusion Sinus rhythm...normal P axis, V-rate 60- 99 I have reviewed and interpreted ECG and agree with software generated interpretation.
--- NOTE | 2024-02-28 20:41 | ED.GENADUL_ITS ---
Discharge Plan Discharge Details Chief Complaint: Chest Pain Primary Care Provider: OWEN GARRISON ED Provider: Valery Padilla Home Meds and New Rx's Prescriptions: No Action No Known Home Meds HPI General Date/Time Provider Initiated Documentation: 02/28/24 20:28 . HPI Narrative: Paul is a 48-year-old male with history of alcoholic pancreatitis who presents to the emergency department today for evaluation of burning chest pain consistent with previous episodes of pancreatitis. He says that his pancreatitis has been acting up for the last couple of weeks, with intermittent pain. Today in the afternoon it started with constant burning/stabbing pain in his sternal chest area. He has vomited multiple times. Denies associated fever/chills, shortness of breath, blood in emesis, change in bowel or bladder function. He did drink 2 white claws this afternoon, usually drinks a sixpack daily. Denies known history of diabetes, cardiac disease, hypertension. Physical exam remarkable for significant tenderness with right upper quadrant palpation. Abdomen is soft, nondistended, normoactive bowel sounds. No rigidity or guarding. Easy work of breathing, lung sounds clear bilaterally. Normal heart sounds. Moving all extremities equally, normal gait. DDx includes but is not limited to: Acute pancreatitis, gastroenteritis, ACS less likely, dehydration, electrolyte imbalance I independently interpreted the following tests: Lipase greater than 375. Mild hypercalcemia, corrected calcium 10.2. Mild hypokalemia, potassium 3.4. CBC and initial troponin reassuring. While in the emergency department Paul received IV fluids, thiamine, Zofran,pepcid, and Toradol for pain. He continues to report abdominal pain, declines opioids at this time. 2230: Child reports new onset of severe left upper quadrant pain that he says is like a tightness. He says this is more severe than his usual pain. Nitroglycerin given without improvement in symptoms. 324 aspirin also given. EKG performed, no change, remains normal sinus rhythm with rate 86, no changes consistent with ischemia. Troponin drawn, negative. Unlikely cardiac source, most likely related to pancreatitis. Patient accepting of morphine at this time for pain control. Patient to be admitted to hospital for acute pancreatitis. Presented patient to Dr. Barrera, [facility] hospitalist. He is agreeable to admit patient for pain control and management. Patient is agreeable with plan of care. Related Data Home Medications Medication Instructions Recorded Confirmed Unknown [No Known Home Meds] 02/28/24 02/28/24 Allergies Allergy/AdvReac Type Severity Reaction Status Date / Time No Known Allergies Allergy Unverified 02/22/24 03:34 General Stated Complaint: Chest Pain SARAH: 3 Review of Systems Narrative: see HPI Exam Const General: cooperative, no acute distress, well developed, ill appearing and intoxicated appearing Nutritional Appearance: average body habitus Resp Effort & Inspection: normal respiratory effort and able to speak in complete sentences Auscultation: clear to auscultation bilaterally Cardio Rate: regular rate Rhythm: regular rhythm GI Inspection: normal to inspection and non-distended Palpation: soft, not firm, not rigid and tender in the RUQ Auscultation: normal bowel sounds Course Vital Signs Vital signs: Vital Signs Pulse 120 H 02/28/24 20:34 Respiratory Rate 20 02/28/24 20:34 Blood Pressure 178/125 H 02/28/24 20:34 Pulse Oximetry 97 02/28/24 20:34 Pulse 120 H 02/28/24 20:34 Respiratory Rate 15 02/28/24 20:36 Respiratory Effort Normal 02/28/24 20:36 Respiratory Depth Normal 02/28/24 20:36 Respiratory Pattern Normal 02/28/24 20:36 Blood Pressure 178/125 H 02/28/24 20:34 Blood Pressure Position Sitting 02/28/24 20:34 Pulse Oximetry 97 02/28/24 20:34 Oxygen Delivery Method Room Air 02/28/24 20:34 Oxygen Flow Rate 0 02/28/24 20:34 Medical Decision Making Quality:SDOH Health Related Social Needs: Health related social needs inadequate housing, risk o f homeless, food insecurity PFSH All Active Problems Gastroenteritis (Acute) Gastritis (Acute) Alcoholic pancreatitis (Acute) Trochanteric bursitis, right hip (Acute) Avascular necrosis of bone of left hip (Acute) Chest pain (Acute) due to ETOH Hepatic steatosis (Acute) COVID-19 ruled out (Acute) Tobacco abuse (Acute) Impairment of balance (Acute) Chronic vertigo (Acute) Electrolyte and fluid disorder (Acute) Medical History On deep vein thrombosis (DVT) prophylaxis Surgical History 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) Cyst of right upper eyelid Family History Maternal Grandfather Alcohol abuse Maternal Uncle Alcohol abuse Social History Smoking/Tobacco Use Status: Current every day Tobacco Type: cigarettes Years smoked: 25 Smoking risk assessment performed?: Yes Alcohol Intake: current Alcohol Intake frequency: 3 or more drinks per day Alcohol type: beer and hard liquor Details: last drink was 2 weeks ago Drug use: Never Substance use type: does not use Housing: 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 PAWSS Have you Been Recently Intoxicated or Drunk Within the Last 30 days?: Yes Have you Ever Experienced Previous Episodes of Alcohol Withdrawal?: Yes Have you ever Experienced Withdrawal Seizures?: No Have you ever Experienced Delirium Tremens(DT)s?: Yes Have you ever undergone Alcohol Rehabilitation Treatment (i.e, inpt ot outpatient treatment programs)?: No Have you ever Experienced Blackouts?: No Have you ever Combined Alcohol with other Downers within the last 90 days?: No Have you ever Combined Alcohol with any other Substance of Abuse during the last 90 days?: No Positive Blood Alcohol level on Presentation? [PCS.BAL]: No Evidence of Increased Autonomic Activity (i.e. HR>120, tremor, sweating, agitation, nausea)?: No Result: 3
[2024-02-28 20:46] LABS: Abs Immature Grans 0.02 10^3/uL (0.0-0.06); Absolute Basophil Count 0.07 10^3/uL (0.0-0.2); Absolute Eosinophil Count 0.14 10^3/uL (0.0-0.7); Absolute Lymphocyte Count 2.54 10^3/uL (1.2-3.4); Absolute Neutrophil Count 5.89 10^3/uL (1.2-6.7); Basophils % 0.7 %; Eosinophils % 1.5 %; HCT 42.1 % (40.0-50.0); HGB 15.1 g/dL (13.5-17.5); Immature Grans % 0.2 %; Lymphocytes % 26.8 %; MCH 35.3 pg (27.0-33.0); MCHC 35.9 % (32.0-36.0); MCV 98 fL (80-95); MPV 9.2 fL (8.0-11.0); Monocytes % 8.5 %; Neutrophils % 62.3 %; Platelet Count 178 10^3/uL (130-400); RBC 4.28 10^6/uL (4.36-5.78); RDW 12.4 % (11.8-14.1); RDW-SD 44.5 fL; WBC 9.46 10^3/uL (4.4-10.8)
[2024-02-28] MEDS: Lactated Ringers 1,000 ML 1000 ML IV (20:50)
[2024-02-28] MEDS: Ondansetron 4 MG/2 ML VIAL IVP (20:52)
[2024-02-28] MEDS: Ketorolac 15 MG/ML VIAL IVP (20:52)
[2024-02-28] MEDS: Famotidine 20 MG/2 ML VIAL IVP (20:52)
[2024-02-28] MEDS: THIAMINE 100 MG in Normal Saline 100 ML 200 MG IVPB (20:53)
[2024-02-28 21:04] LABS: ALT 26 U/L (16-63); AST 49 U/L (15-37); Albumin 4.2 g/dL (3.4-5.0); Alkaline Phosphatase 80 U/L (46-116); Anion Gap 16.9 mmol/L (3-11); BUN 7 mg/dL (7-18); Bilirubin, Total 0.49 mg/dL (0.2-1.0); CO2 22.1 mmol/L (21.0-32.0); CREATININE 0.8 mg/dL (0.70-1.30); Calcium 10.4 mg/dL (8.5-10.1); Chloride 100 mmol/L (98-107); ETHANOL BLOOD 138.8 mg/dL (<10); Estimated GFR 109.85 (mL/min/1.73m2); Glucose 157 mg/dL (74-106); Potassium 3.4 mmol/L (3.5-5.1); Sodium 139 mmol/L (136-145); Total Protein 8.6 g/dL (6.4-8.2); Troponin I < 50 ng/L (< or =60)
[2024-02-28 21:05] LABS: Lipase > 375 U/L (16-77)
--- NOTE | 2024-02-28 22:30 | RT.EKG_ITS ---
APPROVED REPORT Exam: Resting ECG Reason for Exam: chest pain Patient Location: E HR:86 bpm ECG Measurements Heart Rate 86 AXIS ME 165 P -23 QRSd 88 QRS 49 QT 347 T 61 QTc 416 Conclusion Sinus rhythm...normal P axis, V-rate 60- 99 I have reviewed and interpreted ECG and agree with software generated interpretation.
[2024-02-28] MEDS: Aspirin 81 MG CHEW (22:41)
--- NOTE | 2024-02-28 22:45 | DI.CT_ITS ---
Exam(s) CT ABDOMEN PELVIS W EXAM: CT ABDOMEN PELVIS W CLINICAL HISTORY: LUQ/epigastric pain, h/o pancreatitis. TECHNIQUE: Imaging Protocol: Axial computed tomography images with coronal and sagittal reformatted images were created and reviewed CONTRAST MATERIAL: Intravenous: Omnipaque 350 Contrast volume:100 ml Oral: no COMPARISON: CT CT CHEST PE ABD PELVIS W from 07/05/[address] ABDOMEN PELVIS W from 02/22/2024 FINDINGS: ABDOMEN and PELVIS: Lung Bases: Mild circumferential thickening of the distal esophagus again noted. Liver: Normal density. No suspicious mass. Gallbladder and biliary tract: No radiodense calculus. No biliary dilation. Pancreas: Normal density. Stranding in the peripancreatic fat consistent with pancreatitis. 3 cecy meter calcification noted in the head of the pancreas not definitely within the duct. No evidence of pseudocyst or necrotic changes. No evidence of mass. Spleen: Normal. Kidneys: Normal size, contour and axis. No radiodense stones. No obstructive uropathy. No suspicious masses seen. Adrenal glands: No masses seen. Vasculature: Abdominal aorta non-dilated. Soft tissues: Tiny fat containing umbilical hernia. Bladder: Mild diffuse wall thickening. Clinical correlation recommended. No calculi.No focal mass. Bowel: No obstruction. The colon is nearly empty. Mild diverticulosis.. Appendix normal. Peritoneal cavity: No ascites. No focal collection. No mesenteric inflammatory response. Bones: Right hip prosthesis. Findings consistent with avascular necrosis again noted in the left fem oral head. Old left rib fractures. Reproductive organs: Unremarkable. Lymph nodes: No pathologically enlarged lymph nodes. IMPRESSION:: Findings consistent with acute pancreatitis. No evidence of pseudocyst. No gallstones or biliary dilatation. RADIATION DOSE DELIVERED: Total DLP DATA REPOSITORY: All CT scans at this facility are submitted to the National Radiology Data Registry (NRDR) Dose Index Registry (DIR) with the [employer] ([employer]). RADIATION OPTIMIZATION: All CT scans at this facility use at least one of these dose optimization te chniques: automated exposure control; mA and/or kV adjustment per patient size (includes targeted exa ms where dose is matched to clinical indication); or iterative reconstruction.
[2024-02-28] MEDS: MORPHine 4 MG/ML SYR (22:53)
--- NOTE | 2024-02-28 23:01 | HPE_ITS ---
Date of service: 02/28/24 Time of Service: 23:01 Assessment and Plan Assessment and plan (1) Alcoholic pancreatitis: Status: Acute Assessment and plan: Alcoholic pancreatits. Have requested CT imaging of ER. In meantime will treat with usual regimen of NPO, IVF and prn analgesics and antiemetics. Otherwise there is no evidence ACS and will not pursue further. 1. Pancreatitis: await CT; prn MS, prn Zofran, IVF 2. EtOH: will begin scheduled Librium and place on CIWA 3. Tobacco: prn Nicotine TD 14 Qualifiers: Chronicity: acute Acute pancreatitis complication: no infection or necrosis Qualified Code(s): K85.20 - Alcohol induced acute pancreatitis without necrosis or infection History of Present Illness History of Present Illness Chief Complaint: epigastric pain Narrative: 48 male with h/o alcoholism, multiple episodes of pancreatitis related to same -- here with several weeks of waxing and waning epigastric pain and associated nausea/vomiting. Today symptoms became more persistent and he presented for evaluation. In ER findings of note for normal white count and electrolytes save K 3.4; Ca 10.4, Bili 0.4 and AST 49; and lipase >375. EtOH 138. Patient given Morphine, Toradol, Zofran and Thiamine. There was apparently consideration given to ACS. Initial EKG showed grouped beating suggesting either frequent atrial ectopy or sinus arrythmia; repeat EKG NSR, and in both no STTW changes. Troponin negative. I was asked to evaluate for admission. Patient states he has only had tremors in withdrawing from alcohol, and last drink few hours prior to presentation. 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) Cyst of right upper eyelid Family History Maternal Grandfather Alcohol abuse Maternal Uncle Alcohol abuse Social History Smoking/Tobacco Use Status: Current every day Tobacco Type: cigarettes Years smoked: 25 Smoking risk assessment performed?: Yes Alcohol Intake: current Alcohol Intake frequency: 3 or more drinks per day Alcohol type: beer and hard liquor Details: last drink was 2 weeks ago Drug use: Never Substance use type: does not use Housing: 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 Meds Allergies and Home Medications Allergies Allergy/AdvReac Type Severity Reaction Status Date / Time No Known Allergies Allergy Unverified 02/22/24 03:34 Home Medications Medication Instructions Recorded Confirmed Type Unknown [No Known Home Meds] 02/28/24 02/28/24 History Exam Narrative Exam Narrative: 179/108, 95, temp not recorded, 16, 95% RA. HEENT anicteric; neck supple; lungs clear; heart RRRw/o MRG; abdomen +BS, mild epigastric tenderness, no rebound; extremities w/o edema; neuro mild resting tremor, Ox3, lucid, moves all 4s Results Labs 02/28/24 20:30 02/28/24 20:30 Labs: Laboratory Results - last 24 hr 02/28/24 20:30 WBC 9.46 RBC 4.28 L Hgb 15.1 Hct 42.1 MCV 98 H MCH 35.3 H MCHC 35.9 RDW 12.4 Plt Count 178 MPV 9.2 Immature Gran % 0.2 Neutrophils % 62.3 Lymphocytes % 26.8 Monocytes % 8.5 Eosinophils % 1.5 Basophils % 0.7 Nucleated RBC % 0.0 Absolute Neutrophils 5.89 Absolute Lymphocytes 2.54 Absolute Monocytes 0.80 Absolute Eosinophils 0.14 Absolute Basophils 0.07 Sodium 139 Potassium 3.4 L Chloride 100 Carbon Dioxide 22.1 Anion Gap 16.9 H BUN 7 Creatinine 0.8 Est GFR (CKD-EPI 2020) 109.85 Glucose 157 H Calcium 10.4 H Total Bilirubin 0.49 AST 49 H ALT 26 Alkaline Phosphatase 80 Troponin I < 50 Total Protein 8.6 H Albumin 4.2 Lipase > 375 H Ethyl Alcohol 138.8 H Last Vital Signs Pulse 95 H 02/28/24 22:37 Resp 16 02/28/24 22:40 BP 179/108 H 02/28/24 22:37 Pulse Ox 96 02/28/24 22:40 PAWSS Have you Been Recently Intoxicated or Drunk Within the Last 30 days?: Yes Have you Ever Experienced Previous Episodes of Alcohol Withdrawal?: Yes Have you ever Experienced Withdrawal Seizures?: No Have you ever Experienced Delirium Tremens(DT)s?: Yes Have you ever undergone Alcohol Rehabilitation Treatment (i.e, inpt ot outpatient treatment programs)?: No Have you ever Experienced Blackouts?: No Have you ever Combined Alcohol with other Downers within the last 90 days?: No Have you ever Combined Alcohol with any other Substance of Abuse during the last 90 days?: No Positive Blood Alcohol level on Presentation? [PCS.BAL]: No Evidence of Increased Autonomic Activity (i.e. HR>120, tremor, sweating, agitation, nausea)?: No Result: 3 Time Spent Time spent with Patient: 55-74 minutes Time was spent: preparing to see the patient(eg.review tests), obtaining and/or reviewing separately otained hiistory, ordering medications,tests, procedures, referring, communicating with other health healthcare corporate account director and indepentently interpreting results
[2024-02-28 23:09] LABS: Troponin I < 50 ng/L (< or =60)
[2024-02-28] MEDS: Omnipaque 350 MG/ML 100 ML BTL IJ (23:39)
[2024-02-28] MEDS: Normal Saline - Diluent 50 ML VIAL IJ (23:40)
[2024-02-29] VITALS (13 sets, daily range): BP systolic 136–172; BP diastolic 84–99; PULSE 73–91; RESP 16–22; TEMP 36.3–37.3; O2SAT 96–98
[2024-02-29] MEDS: Lactated Ringers 1,000 ML 150 ML IV ×2 (00:12→14:44)
--- NOTE | 2024-02-29 00:15 | DI.VRAD_ITS ---
PROCEDURE INFORMATION: Exam: CT Abdomen And Pelvis With Contrast Exam date and time: 02/28/2024 11:27 PM Age: 48 years old Clinical indication: Other: Luq/epigastric pain, h/o pancreatitis TECHNIQUE: Imaging protocol: Computed tomography of the abdomen and pelvis with contrast. Contrast material: OMNI 350; Contrast volume: 100 ml; Contrast route: INTRAVENOUS (IV); COMPARISON: CT ABDOMEN PELVIS W 02/22/2024 4:18 AM FINDINGS: Diaphragm: Small hiatal hernia. Liver: Normal. No mass. Gallbladder and biliary ducts: Normal. No calcified stones. No ductal dilation. Pancreas: There is fat stranding surrounding the head pancreas and to a lesser extent body and tail of the pancreas. Similar 3 mm calcification in the posterior aspect of the head of the pancreas. No collections. No pancreatic necrosis. Spleen: Normal. No splenomegaly. Adrenal glands: Normal. No mass. Kidneys and ureters: Stable cyst in the upper pole of the left kidney measuring 1.5 cm. No hydronephrosis on either side. Stomach and bowel: Diverticulosis of the descending colon. Appendix: Appendicolith at the base of the appendix but no changes of acute appendicitis. Intraperitoneal space: Unremarkable. No free air. No significant fluid collection. Vasculature: There are aortic calcifications. Lymph nodes: Unremarkable. No enlarged lymph nodes. Urinary bladder: Unremarkable as visualized. Reproductive: Unremarkable as visualized. Bones/joints: Post right hip arthroplasty. Mild degenerative disease of the symphysis pubis. Mild degenerative of the left hip joint. Old fractures of the posterior arches of the left, 11th and 9th ribs. Mild multilevel degenerative disease of the spine with small anterior osteophytes. Osteonecrosis of the left femoral head. Soft tissues: Fat containing umbilical hernia. IMPRESSION: Findings consistent with acute interstitial pancreatitis. No necrosis or collections. Dictated and Authenticated by: Abisai Gurrola MD. Ordering:ELLEN Rasmussen MD
--- NOTE | 2024-02-29 00:26 | NUR.NOTE ---
Ap charge loader nurse notified at this time of pt's pain level of 9/10. no prns available at this time.
[2024-02-29] MEDS: LORazepam 1 MG TAB PO/SL (00:50)
[2024-02-29] MEDS: chlordiazePOXIDE 25 MG CAP 50 MG PO (00:51)
--- NOTE | 2024-02-29 01:11 | NUR.NOTE ---
BRIDGETTE HAY CHOPPER NURSE NOTIFIED OF PT'S SENSITIVITY TO MORPHINE. NO OTHER PAIN MEDS AVAILABLE ON OCT AT THIS TIME. PT STATES PAIN IS STABBING AND BURNING IN LUQ 9/10.Nursing Note:
[2024-02-29] MEDS: Lactated Ringers 250 ML 500 ML IV (02:08)
[2024-02-29] MEDS: Ondansetron 4 MG/2 ML VIAL IVP ×3 (02:25→10:20)
[2024-02-29] MEDS: MORPHine 4 MG/ML SYR IVP ×4 (02:26→10:45)
--- NOTE | 2024-02-29 03:28 | W.PC.ACHO ---
Registration Status: ADM IN Primary Language: Preferred Language: Azeri ED Information & Data Chief Complaint Chest Pain 02/28/24 20:45 Triage Note 7 of 10 burning pain left of 02/28/24 20:34 center chest. Nausea and vomiting. Hx of pancreatitis Medical / Surgical History (Last Reviewed 02/28/24 @ 23:12 by Jer Barrera MD) On deep vein thrombosis (DVT) prophylaxis (Last Reviewed 02/28/24 @ 23:12 by Jer Barrera MD) 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) Cyst of right upper eyelid Most Recent Vital Signs Temperature 36.6 C 02/29/24 02:10 Temperature Source Temporal Artery Scan 02/29/24 02:38 Pulse 79 02/29/24 03:07 Pulse Rhythm Regular 02/29/24 00:21 Pulse 100 H 02/28/24 23:40 Respiratory Rate 20 02/29/24 02:10 Respiratory Effort Normal, Non-Labored 02/29/24 00:21 Respiratory Depth Normal 02/29/24 00:21 Respiratory Pattern Normal 02/29/24 00:21 Blood Pressure 141/90 H 02/29/24 03:07 Blood Pressure Mean 87 02/28/24 23:16 Blood Pressure Position Sitting 02/28/24 20:34 Pulse Oximetry 97 02/29/24 02:10 Oxygen Delivery Method Room Air 02/29/24 02:10 Oxygen Flow Rate 0 02/29/24 02:10 Pain Level 10 02/29/24 02:26 Allergies No Known Allergies Allergy (Unverified 02/22/24 03:34) Active Medications Generic Name Dose Route Start Last Admin Trade Name Freq PRN Reason Stop Dose Admin Ringer's Solution 1,000 mls @ 150 mls/hr 02/28/24 23:30 02/29/24 00:12 IV 150 mls/hr INFUSION JOSSELYN Administration Iohexol 100 ml 02/28/24 23:45 02/28/24 23:39 Omnipaque 350 Mg/Ml 100 Ml Btl IJ 03/29/24 23:59 100 ml DIRECTED JOSSELYN Administration Lorazepam 0 mg 02/28/24 23:19 02/29/24 00:50 Lorazepam 1 Mg Tab PO/SL 1 mg DIRECTED PRN Administration Morphine Sulfate 4 mg 02/28/24 23:19 02/29/24 02:26 Morphine 4 Mg/Ml Syr IVP 4 mg Q2H PRN PRN Administration Ondansetron HCl 4 mg 02/28/24 23:19 02/29/24 02:25 Ondansetron 4 Mg/2 Ml Vial IVP 4 mg Q4H PRN PRN Administration Sodium Chloride 50 ml 02/28/24 23:45 02/28/24 23:40 Normal Saline - Diluent 50 Ml Vial IJ 50 ml .FOR DI USE JOSSELYN Administration IV IV Catheter Type [Right Saline Lock Antecubital] IV Catheter Gauge [Right 20 Antecubital] Diet Orders Category Date Time Status Nothing Per Oral [DIET] Nutrition 02/29/24 Breakfast Active Diagnostics 02/29/24 02/28/24 02/28/24 Range/Units 05:35 23:36 22:48 WBC (4.4-10.8) 10^3/uL RBC (4.36-5.78) 10^6/uL Hgb (13.5-17.5) g/dL Hct (40.0-50.0) % MCV (80-95) fL MCH (27.0-33.0) pg MCHC (32.0-36.0) % RDW (11.8-14.1) % Plt Count (130-400) 10^3/uL MPV (8.0-11.0) fL Immature Gran % % Neutrophils % % Lymphocytes % % Monocytes % % Eosinophils % % Basophils % % Nucleated RBC % (0.0-0.3) % Absolute Neutrophils (1.2-6.7) 10^3/uL Absolute Lymphocytes (1.2-3.4) 10^3/uL Absolute Monocytes (0.1-0.8) 10^3/uL Absolute Eosinophils (0.0-0.7) 10^3/uL Absolute Basophils (0.0-0.2) 10^3/uL Sodium Pending (136-145) mmol/L Potassium Pending (3.5-5.1) mmol/L Chloride Pending (98-107) mmol/L Carbon Dioxide Pending (21.0-32.0) mmol/L Anion Gap Pending (3-11) mmol/L BUN Pending (7-18) mg/dL Creatinine Pending (0.70-1.30) mg/dL Est GFR (CKD-EPI 2020) Pending (mL/min/1.73m2) Glucose Pending (74-106) mg/dL Calcium Pending (8.5-10.1) mg/dL Total Bilirubin (0.2-1.0) mg/dL AST (15-37) U/L ALT (16-63) U/L Alkaline Phosphatase (46-116) U/L Troponin I Cancelled < 50 (< or =60) ng/L Total Protein (6.4-8.2) g/dL Albumin (3.4-5.0) g/dL Lipase Pending (16-77) U/L Ethyl Alcohol (<10) mg/dL 02/28/24 Range/Units 20:30 WBC 9.46 (4.4-10.8) 10^3/uL RBC 4.28 L (4.36-5.78) 10^6/uL Hgb 15.1 (13.5-17.5) g/dL Hct 42.1 (40.0-50.0) % MCV 98 H (80-95) fL MCH 35.3 H (27.0-33.0) pg MCHC 35.9 (32.0-36.0) % RDW 12.4 (11.8-14.1) % Plt Count 178 (130-400) 10^3/uL MPV 9.2 (8.0-11.0) fL Immature Gran % 0.2 % Neutrophils % 62.3 % Lymphocytes % 26.8 % Monocytes % 8.5 % Eosinophils % 1.5 % Basophils % 0.7 % Nucleated RBC % 0.0 (0.0-0.3) % Absolute Neutrophils 5.89 (1.2-6.7) 10^3/uL Absolute Lymphocytes 2.54 (1.2-3.4) 10^3/uL Absolute Monocytes 0.80 (0.1-0.8) 10^3/uL Absolute Eosinophils 0.14 (0.0-0.7) 10^3/uL Absolute Basophils 0.07 (0.0-0.2) 10^3/uL Sodium 139 (136-145) mmol/L Potassium 3.4 L (3.5-5.1) mmol/L Chloride 100 (98-107) mmol/L Carbon Dioxide 22.1 (21.0-32.0) mmol/L Anion Gap 16.9 H (3-11) mmol/L BUN 7 (7-18) mg/dL Creatinine 0.8 (0.70-1.30) mg/dL Est GFR (CKD-EPI 2020) 109.85 (mL/min/1.73m2) Glucose 157 H (74-106) mg/dL Calcium 10.4 H (8.5-10.1) mg/dL Total Bilirubin 0.49 (0.2-1.0) mg/dL AST 49 H (15-37) U/L ALT 26 (16-63) U/L Alkaline Phosphatase 80 (46-116) U/L Troponin I < 50 (< or =60) ng/L Total Protein 8.6 H (6.4-8.2) g/dL Albumin 4.2 (3.4-5.0) g/dL Lipase > 375 H (16-77) U/L Ethyl Alcohol 138.8 H (<10) mg/dL Intake and Output - 24 Hour Total 02/28/24 20:24 thru 02/29/24 02:23 Intake Total 1226 Balance 1226 Weight 77.111 kg Intake: IV 1226 Other: Urine Appearance Clear Falls Risk Assessment History of Falls Previous History 02/29/24 00:21 Contributing Factors Medications 02/29/24 00:21 Ambulatory Aids Independent 02/29/24 00:21 Tubes/Lines W/no contributing factors 02/29/24 00:21 Gait Evaluation No gait disturbance 02/29/24 00:21 Cognition No cognitive impairment 02/29/24 00:21 Fall Total Score 28 02/29/24 00:21 Level of Risk Moderate Risk 02/29/24 00:21 Problems (Last Reviewed 02/28/24 @ 23:12 by Jer Barrera MD) Alcoholic pancreatitis (Acute) Notes 02/29/24 01:11 Nursing Notes by Malini Vu, RECRUITING TEAM LEAD NURSE NOTIFIED OF PT'S SENSITIVITY TO MORPHINE. NO OTHER PAIN MEDS AVAILABLE ON OCT AT THIS TIME. PT STATES PAIN IS STABBING AND BURNING IN LUQ 04/30.Nursing Note: Initialized on 02/29/24 01:11 - END OF NOTE v v v v v v v v v Sending and/or Receiving Nurses: Please use comment section below to note any information pertinent to the patient hand-off not included above. Information / Comments: Per report, pt is a full code, A&O X4, and ambulatory. Pt is not currently experiencing any withdrawal symptoms. At home, the pt reportedly drinks more alcohol to see if the pain goes away. Pt is nauseated but no vomiting has occurred. Following administration of IV morphine, pt experienced significant hypotension. Report received from: MARYELLEN HAWKINS RN
[2024-02-29 07:29] LABS: Anion Gap 9.9 mmol/L (3-11); BUN 4 mg/dL (7-18); CO2 26.1 mmol/L (21.0-32.0); CREATININE 0.7 mg/dL (0.70-1.30); Calcium 9.4 mg/dL (8.5-10.1); Chloride 102 mmol/L (98-107); Estimated GFR 114.37 (mL/min/1.73m2); Glucose 102 mg/dL (74-106); Potassium 3.2 mmol/L (3.5-5.1); Sodium 138 mmol/L (136-145)
[2024-02-29 07:31] LABS: Lipase > 375 U/L (16-77)
[2024-02-29] MEDS: chlordiazePOXIDE 25 MG CAP PO ×3 (07:44→19:10)
[2024-02-29] MEDS: Ketorolac 15 MG/ML VIAL IVP ×3 (08:01→22:02)
[2024-02-29] MEDS: Normal Saline Flush 10 ML SYR IVP ×7 (08:03→15:49)
--- NOTE | 2024-02-29 10:04 | PGE_ITS ---
Date of Service Date of service: 02/29/24 Time of Service: 10:05 Assessment and Plan Assessment and plan (1) Alcoholic pancreatitis: Status: Acute Assessment and plan: Still vomiting Continued symptoms management and laboratory evidence of pancreatitis. Initial CT scan: Stranding in the peripancreatic fat consistent with pancreatitis. 3 millimeter calcification noted in the head of the pancreas not definitely within the duct. No pancreatic cyst or abscess. Advance diet as tolerated but with furhter vomiting considering clears continue IVF Increased N/V & abdominal pain: increased antiemetic by adding compazine PRN, schedued APAP IV, Hydromorphone PRN, IV pepcid scheduled, and PRN magic mouth wash CBC in AM Qualifiers: Acute pancreatitis complication: no infection or necrosis Chronicity: acute Qualified Code(s): K85.20 - Alcohol induced acute pancreatitis without necrosis or infection (2) Alcohol withdrawal: Status: Resolved Assessment and plan: CIWA at 4 this AM but was 7 at 00:50 & received PRN lorazepam On librium TID Lorazepam PRN still ordered No ext tremors when seen Qualifiers: Complication of substance-induced condition: uncomplicated Qualified Code(s): F10.230 - Alcohol dependence with withdrawal, uncomplicated (3) On deep vein thrombosis (DVT) prophylaxis: Assessment and plan: Platelets 178 Lovenox SC (4) Hypokalemia: Status: Resolved Assessment and plan: K 3.2 , mag level ordered K replaced Level in AM (5) Nicotine addiction: Status: Acute Assessment and plan: PRN NRT (6) Discharge planning issues: Status: Resolved Assessment and plan: Most likely to go home when medically cleared Discussed with Dr. Rubio Subjective Subjective Patient reports: still having pain, voiding w/o difficulty, bowel movement, nausea, vomiting and afebrile; denies feels better, tolerating liquids well, tolerating a regular diet, diarrhea, blood in stool or shortness of breath Exam Narrative Exam Narrative: Constitutional The patient is sitting at the edge of the bed, c/o of heart burn, acutely vomiting w GI pain HENMT: Facial structures with normal appearance Neuro:alert and oriented to self, person, place time and situation. No neurological focal deficit Chest:Chest is symmetrical and normal appearance Resp: Normal respiratory pattern, speaks in full sentences, clear lung bilaterally Cardio: regular rhythm, S1, S2, no murmur, positive radial and pedal pulses biltaterally GI: Abdomen is not distended, soft and tender to left and right upper quadrants , bowel sounds are present : Negative Costovertebral angle tenderness, no bladder distension Back/spine/Pelvis: No back tenderness, normal alignment Integumentary: No skin lesions or rash Psych: RASS 0, congruent mood and normal affect. Objective Last Vital Signs Temp 36.5 C 02/29/24 08:38 Pulse 80 02/29/24 08:38 Resp 20 02/29/24 02:10 BP 158/93 H 02/29/24 08:38 Pulse Ox 96 02/29/24 08:38 Laboratory Results - last 24 hr 02/28/24 02/28/24 02/28/24 20:30 22:48 23:36 WBC 9.46 RBC 4.28 L Hgb 15.1 Hct 42.1 MCV 98 H MCH 35.3 H MCHC 35.9 RDW 12.4 Plt Count 178 MPV 9.2 Immature Gran % 0.2 Neutrophils % 62.3 Lymphocytes % 26.8 Monocytes % 8.5 Eosinophils % 1.5 Basophils % 0.7 Nucleated RBC % 0.0 Absolute Neutrophils 5.89 Absolute Lymphocytes 2.54 Absolute Monocytes 0.80 Absolute Eosinophils 0.14 Absolute Basophils 0.07 Sodium 139 Potassium 3.4 L Chloride 100 Carbon Dioxide 22.1 Anion Gap 16.9 H BUN 7 Creatinine 0.8 Est GFR (CKD-EPI 2020) 109.85 Glucose 157 H Calcium 10.4 H Total Bilirubin 0.49 AST 49 H ALT 26 Alkaline Phosphatase 80 Troponin I < 50 < 50 Cancelled Total Protein 8.6 H Albumin 4.2 Lipase > 375 H Ethyl Alcohol 138.8 H 02/29/24 06:26 WBC RBC Hgb Hct MCV MCH MCHC RDW Plt Count MPV Immature Gran % Neutrophils % Lymphocytes % Monocytes % Eosinophils % Basophils % Nucleated RBC % Absolute Neutrophils Absolute Lymphocytes Absolute Monocytes Absolute Eosinophils Absolute Basophils Sodium 138 Potassium 3.2 L Chloride 102 Carbon Dioxide 26.1 Anion Gap 9.9 BUN 4 L Creatinine 0.7 Est GFR (CKD-EPI 2020) 114.37 Glucose 102 Calcium 9.4 Total Bilirubin AST ALT Alkaline Phosphatase Troponin I Total Protein Albumin Lipase > 375 H Ethyl Alcohol PAWSS Have you Been Recently Intoxicated or Drunk Within the Last 30 days?: Yes Have you Ever Experienced Previous Episodes of Alcohol Withdrawal?: Yes Have you ever Experienced Withdrawal Seizures?: No Have you ever Experienced Delirium Tremens(DT)s?: No Have you ever undergone Alcohol Rehabilitation Treatment (i.e, inpt ot outpatient treatment programs)?: Yes Have you ever Experienced Blackouts?: Yes Have you ever Combined Alcohol with other Downers within the last 90 days?: No Have you ever Combined Alcohol with any other Substance of Abuse during the last 90 days?: No Positive Blood Alcohol level on Presentation? [PCS.BAL]: Yes Evidence of Increased Autonomic Activity (i.e. HR>120, tremor, sweating, agitation, nausea)?: Yes Result: 6 Time Spent with Patient Time Spent with Patient: >50 minutes Time was spent: preparing to see the patient(eg.review tests), obtaining and/or reviewing separately otained hiistory, ordering medications,tests, procedures, referring, communicating with other health career and guidance counselor, indepentently interpreting results, counseling the patient and care coordination
[2024-02-29] MEDS: Potassium Chloride 20 MEQ TABCR PO (12:30)
[2024-02-29] MEDS: POTASSIUM CHLORIDE 20 MEQ/100 ML BAG 50 MEQ IVINF ×2 (12:31→16:00)
--- NOTE | 2024-02-29 12:33 | PDOC.CMIN ---
Date of service: 02/29/24 Time of Service: 12:33 Care Management Initial Assmt Initial Assessment Reason for Hospitalization: Pancreatitis Functional Status/Living Situation Patient Presentation: Paul was lying in bed when CM met with him. He was pleasant, but stated he was very tired and had a difficult time keeping his eyes open during the conversation. He stated that he has had pancreatitis before, but never this bad. He reported that he knows that he should stop drinking, as it is contributing to negative health outcomes. He reported that he used to drink hard stuff, but he now only drinks about 6 beers/day. CM validated the behavior change, and recognized that it is difficult to stop drinking alcohol, but acknowledged his recent improvement. He stated that he doesn't want to go to local AA meetings; CM encouraged him to look online, as there is always an AA meeting available, 13/03. CM asked if he would be interested in meeting with the cost recovery technician, which he agreed to. CM will reach out to the cost recovery technician tomorrow, as he is not feeling well today. CM will continue to follow. Town of Residence: [facility] Resides with: Alone (has a dog) Natural Supports: MomCaitlyn, lives in [place]. Employment Status: Employed ([employer]) Instrumental Activities of Daily Living (ADLs): Independent Medications Medication Management: No Issues/Barriers identified Advance Directives Advance Directives: Do you have an Advance Directive: N 11/22/16 19:[address] [facility]: N 11/22/16 19:40 Date Asked 02/28/24 02/28/24 20:33 AD Date Reviewed COLST On File at [facility] COLST Date Scanned Code Status Resuscitation Status Full Code Insurance Coverage/Financial Issues Insurance: [facility] ACO Member: Yes Care Team Visit Care Team Role Provider Type OWEN GARRISON NP Primary Care Provider NON-[facility] STAFF PHYSICIAN Valery Obrien Emergency Provider NURSE PRACTITIONER Jer Barrera MD Admit Provider [facility] STAFF PHYSICIAN Attending Provider Discharge Potential Discharge Needs: PCP F/U Appt Anticipated Barriers to Discharge: None Identified Patient/Family Education Needs: Review discharge instructions, discuss Ask Me Three Transportation: Private vehicle Plan: Paul will return home with no services upon discharge. He will be driven home via private vehicle by a friend. He will meet with the cost recovery technician prior to discharge. He will follow up with his PCP and discharge plan of care. CM will continue to follow. PFSH All Active Problems (Updated 02/28/24 @ 23:56 by Valery Obrien) Gastroenteritis (Acute) Gastritis (Acute) Alcoholic pancreatitis (Acute) Trochanteric bursitis, right hip (Acute) Avascular necrosis of bone of left hip (Acute) Chest pain (Acute) due to ETOH Hepatic steatosis (Acute) COVID-19 ruled out (Acute) Tobacco abuse (Acute) Impairment of balance (Acute) Chronic vertigo (Acute) Electrolyte and fluid disorder (Acute) Medical History On deep vein thrombosis (DVT) prophylaxis Surgical History 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) Cyst of right upper eyelid Family History Maternal Grandfather Alcohol abuse Maternal Uncle Alcohol abuse Social History Smoking/Tobacco Use Status: Current every day Tobacco Type: cigarettes Years smoked: 25 Smoking risk assessment performed?: Yes Alcohol Intake: current Alcohol Intake frequency: 3 or more drinks per day Alcohol type: beer and hard liquor Details: last drink was 2 weeks ago Drug use: Never Substance use type: does not use Housing: 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 SDOH(Care Management) Screening Will the Patient Participate in the Screening?: Yes Do you worry about having a steady place to live?: no Problems where you live: no known problems In the past 12 months, have you had to go without electric, gas, oil or water in your home?: no Have you or anyone in your house had to go without enough food to eat?: yes Has lack of transportation kept you from medical appointments or from doing things needed for daily living?: yes Has anyone in your support network made you feel unsafe for any reason?: no Health Related Social Needs Health related social needs: food insecurity(Z59.41) and transportation insecurity(Z59.82)
--- NOTE | 2024-02-29 13:02 | PHA.REVIEW2 ---
Pharmacy Admission Review Admission Clinical Review Admission Pharmacy Review: Alcoholic pancreatitis (Acute) No Known Allergies Allergy (Unverified 02/22/24 03:34) Resuscitation Status Full Code Height 5 ft 6 in Weight 77.111 kg Pharmacy Admission Review Renal Dosing Renal Dosing: BUN 4 mg/dL (7-18) L 02/29/24 06:26 Creatinine 0.7 mg/dL (0.70-1.30) 02/29/24 06:26 Medications needing adjustments: Reviewed (CrCl 127.55 mL/min) List of meds needing interventions: Current medications are okay Anticoagulation Anticoagulation: Hgb 15.1 g/dL (13.5-17.5) 02/28/24 20:30 Hct 42.1 % (40.0-50.0) 02/28/24 20:30 Plt Count 178 10^3/uL (130-400) 02/28/24 20:30 Creatinine 0.7 mg/dL (0.70-1.30) 02/29/24 06:26 DVT Prophylaxis: Reviewed (Providers note states TEDs (low PLT count) but no order for them. Reached out to provider regarding TEDs and if she wants enoxaparin. Per provider will put in order for enoxaparin.) Medications: Enoxaparin (40mg daily) Opiate Usage Evaluate Pain Scale/Pains Meds: Reviewed (PRN morphine) Scheduled Bowel Reg ordered if on Opiates?: No Relevant Labs Relevant Labs: Sodium 138 mmol/L (136-145) 02/29/24 06:26 Potassium 3.2 mmol/L (3.5-5.1) L 02/29/24 06:26 Chloride 102 mmol/L (98-107) 02/29/24 06:26 Electrolytes, C-Reactive P, ESR: Reviewed (K 3.2, CIWA 4 at 1039 and 1240 today) Cardiac Review Cardiac Review: Troponin I Cancelled 02/28/24 23:36 Blood Pressure 158/93 0838 Blood Pressure 140/92 0448 Blood Pressure 144/84 0443 Blood Pressure 150/91 0436 Blood Pressure 141/90 0307 Blood Pressure 136/90 0248 BP, HR, EF%: Reviewed (HR WNL) QTc Review QTc: Reviewed (416 from 02/28/24) IV to PO Switch IV Medications: Reviewed (ketorolac, morphine and ondansetron) Home Meds Home Med List reviewed: Reviewed Relevent Home Meds Not ordered & why?: No known home meds Current Meds Current Medication Order Review: Intervened Comments: Added IV admission order set Lorazepam PRN CIWA protocol
[2024-02-29] MEDS: Prochlorperazine 10 MG/2 ML VIAL 5 MG IVP (13:11)
[2024-02-29] MEDS: HYDROmorphone 2 MG/ML SYR IVP ×2 (13:33→19:10)
[2024-02-29] MEDS: Enoxaparin 40 MG/0.4 ML SYR SC (13:34)
[2024-02-29] MEDS: FAMOTIDINE 20 MG/50 ML BAG 200 MG IVPB (14:44)
[2024-02-29 17:19] LABS: Abs Immature Grans 0.07 10^3/uL (0.0-0.06); Absolute Basophil Count 0.03 10^3/uL (0.0-0.2); Absolute Lymphocyte Count 0.75 10^3/uL (1.2-3.4); Absolute Monocyte Count 0.78 10^3/uL (0.1-0.8); Absolute Neutrophil Count 9.41 10^3/uL (1.2-6.7); Basophils % 0.3 %; HCT 38.3 % (40.0-50.0); Immature Grans % 0.6 %; Lymphocytes % 6.8 %; MCHC 36.6 % (32.0-36.0); MCV 99 fL (80-95); MPV 9.5 fL (8.0-11.0); Monocytes % 7.1 %; Neutrophils % 85.2 %; Platelet Count 131 10^3/uL (130-400); RBC 3.89 10^6/uL (4.36-5.78); RDW 12.3 % (11.8-14.1); WBC 11.05 10^3/uL (4.4-10.8)
[2024-02-29 17:27] LABS: Magnesium 0.9 mg/dL (1.8-2.4)
[2024-02-29] MEDS: ACETAMINOPHEN 1,000 MG/100 ML BTL 400 MG IVPB (18:15)
[2024-02-29] MEDS: MAGNESIUM SULFATE 4 GM/100 ML BAG IVINF (18:22)
[2024-02-29 22:29] LABS: Magnesium 2.6 mg/dL (1.8-2.4)
[2024-03-01] VITALS (8 sets, daily range): BP systolic 105–141; BP diastolic 79–91; PULSE 98–110; RESP 16–20; TEMP 36.2–38.6; O2SAT 95–96
[2024-03-01] MEDS: FAMOTIDINE 20 MG/50 ML BAG 200 MG IVPB ×2 (01:51→14:18)
[2024-03-01] MEDS: HYDROmorphone 2 MG/ML SYR IVP (01:52)
[2024-03-01] MEDS: Lactated Ringers 1,000 ML 150 ML IV ×3 (04:58→19:30)
[2024-03-01] MEDS: Ketorolac 15 MG/ML VIAL IVP ×2 (05:02→17:38)
[2024-03-01 07:14] LABS: Abs Immature Grans 0.06 10^3/uL (0.0-0.06); Absolute Eosinophil Count 0.06 10^3/uL (0.0-0.7); Absolute Monocyte Count 0.53 10^3/uL (0.1-0.8); Basophils % 0.3 %; Eosinophils % 0.5 %; HCT 38.4 % (40.0-50.0); HGB 13.7 g/dL (13.5-17.5); Immature Grans % 0.5 %; Lymphocytes % 10.9 %; MCH 35.3 pg (27.0-33.0); MCHC 35.7 % (32.0-36.0); MCV 99 fL (80-95); MPV 10.3 fL (8.0-11.0); Monocytes % 4.6 %; Neutrophils % 83.2 %; Platelet Count 115 10^3/uL (130-400); RBC 3.88 10^6/uL (4.36-5.78); RDW 12.3 % (11.8-14.1); RDW-SD 43.9 fL
[2024-03-01 07:19] LABS: Absolute Basophil Count 0.03 10^3/uL (0.0-0.2); Absolute Lymphocyte Count 1.26 10^3/uL (1.2-3.4); Absolute Neutrophil Count 9.65 10^3/uL (1.2-6.7)
[2024-03-01 07:25] LABS: Anion Gap 10.5 mmol/L (3-11); BUN 3 mg/dL (7-18); CO2 26.5 mmol/L (21.0-32.0); CREATININE 0.6 mg/dL (0.70-1.30); Calcium 8.5 mg/dL (8.5-10.1); Chloride 95 mmol/L (98-107); Estimated GFR 119.82 (mL/min/1.73m2); Glucose 107 mg/dL (74-106); Potassium 3.4 mmol/L (3.5-5.1); Sodium 132 mmol/L (136-145)
--- NOTE | 2024-03-01 08:58 | CMPROGNOTE_ITS ---
Date of service: 03/01/24 Time of Service: 08:58 Care Management Progress Note Progress Note Text Progress Note Text: Paul was lying in bed watching TV when CM met with him. He verbalizes that he has a good relationship with his sister and the two discussed alternate care arrangements for his dog. Paul is still agreeable to a referral to [facility] and met with a cricket coach today. Paul agrees to community follow up and may consider getting a sponsor again. At this time, he refuses inpatient treatment due to employment and bills. Discharge Anticipated Barriers to Discharge: None Identified Patient/Family Education Needs: Review discharge instructions, discuss Ask Me Three Transportation: Private vehicle Plan: Anticipate, Paul will return home with no services upon discharge. He will be driven home via private vehicle by a friend. He will meet with the assistant boys track coach prior to discharge. He will follow up with his PCP and discharge plan of care. CM will continue to follow. SDOH(Care Management) Screening Will the Patient Participate in the Screening?: Yes Do you worry about having a steady place to live?: no Problems where you live: no known problems In the past 12 months, have you had to go without electric, gas, oil or water in your home?: no Have you or anyone in your house had to go without enough food to eat?: yes Has lack of transportation kept you from medical appointments or from doing things needed for daily living?: yes Has anyone in your support network made you feel unsafe for any reason?: no Health Related Social Needs Health related social needs: food insecurity(Z59.41) and transportation insecu rity(Z59.82)
[2024-03-01] MEDS: chlordiazePOXIDE 25 MG CAP PO ×3 (09:02→19:44)
--- NOTE | 2024-03-01 09:22 | PT.INIE ---
Date of service: 03/01/24 Time of Service: 09:03 PT Notes Visit Reasons: pancreatitis Inpatient Physical Therapy Evaluation I certify the need for these services as being medically necessary and skilled as furnished under this plan of treatment while under my care. Please sign and return within 14 days if you agree with the plan of care listed below.? Thank you for this referral! ? Referring Physician? Date Referring Doctor:? Joesph Rubio PT Orders: PT CONSULT for limited ability Precautions: fall risk, on CIWAS Patient Profile/Admitting Diagnosis:? The patient is a 48 yo male adm on 02/28/24 with h/o alcoholism, multiple episodes of pancreatitis related to same -- here with several weeks of waxing and waning epigastric pain and associated nausea/vomiting. Symptoms became more persistent and he presented for evaluation to the ED. 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 Has a dog (neighbor is caring for his dog) Subjective: I've been lying in bed for 4 days. Objective: Mental Status: Patient is alert and oriented to person and place. Pain: 7/10 abdominal pain upon arrival. RN reports abdominal pain has been 9-10/10 during his admission. Vital Signs: see chart ROM/Strength: 4+/5 grossly UE and LE Sensation: Patient reports no numbness or tingling Soft tissue/edema: No gross abnormalities noted Bed Mobility: Supine to sit supervision Transfers: Sit to stand with cg/min assist. Mildly unsteady Gait: Ambulated 75 feet with 1 hand on IV pole for balance, initially with CGA assist. Paused mid walk secondary to slight bilateral knee hyperetension and posterior weight shifting. with then min assist with cuing for direction and to shift his weight accordingly Balance: Standing with cg/min assist [facility] AM-PAC 6 clicks Basic Mobility Inpatient Short Form: Raw Score:18? CMS Score:46.58% Informed Consent/Education:? Patient instructed in purpose of PT consult and plan of care and is agreeable Assessment:? Patient is a?48 year old male adm on 02/28/24 for h/o alcoholism, multiple episodes of pancreatitis.? Patient presents with abdominal pain, decreased strength, decreased functional mobility, decreased balance and difficulty with ambulation. The patient would benefit from skilled inpatient services to improve these impairments to maximize function and safety. Patient is assessed as:? Moderate 711093?complexity based on the following: History: lives alone, normally works, does not drive Examination: see above Presentation: Evolving clinical presentation? Decision Making:? Moderate (1-2 history, 2-3 exam, evolving, mod-30 mins) Physical Therapy Goals: 1 week Able to get in/out of bed independently without loss of balance Able to perform sit to/from stand independently without loss of balance Able to walk 100 feet without loss of balance. Able to go up and down 2-3 steps with 1 rail with contact guard assist only. Independent with home exercise program Plan of Care/Treatment Plan: 1-2x/day, 7 days/week x 1 week. Plan of care has been reviewed with the PRODUCT ASSURANCE ENGINEER providing the service under Physical Therapy direction. Initiate Physical Therapy intervention for strengthening, bed mobility, transfers, gait, stairs, balance training, use of assistive device. DISCHARGE RECOMMENDATIONS: Will need assistive device if his balance does not improve Billing Charges: Treatment Units Time Duration Manual Therapy(95987) Hands-on techniques to modulate pain increase joint range of motion reduce or eliminate soft tissue swelling, inflammation, or restriction facilitate relaxation and improve contractile and non-contractile tissue extensibility ? ? Therapeutic Procedures (16395) Instruction in therapeutic exercises to develop strength and endurance, range of motion and flexibility. HEP instruction and review: Provided skilled instruction in proper exercise performance: Provided skilled manual cues to facilitate proper muscle recruitment and/or movement pattern Neurological Re-Education(93263) To improve balance, coordination, kinesthetic and proprioceptive sensations. ? ? Ultrasound(82102) To promote healing. ? ? Gait Training(59363) ? ? Therapeutic Activity(57161) Instruction in dynamic activities with one on one patient contact by the provider to improve functional performance as follows: ? ? Self Care Training(70278) ? ? E-Stim (Attended)(59254) ? ? Low IE(81140) Mod IE(46004) ?1 ?24 High IE(38887) ? ? Time Coded Treatment Time ? 0 Total Treatment Time ? 24
--- NOTE | 2024-03-01 11:12 | NUR.NOTE ---
Nursing Note: nursing staff talked with pt about his request for a nicotine patch. Nursing staff explained that the nicotine patch is Q24h so that means that whenever he decides he needs one, he will not get a new one for a whole day. Nursing staff also explained that the nicotine patch might cause some nausea. Pt verbalized understanding and requested to wait until later afternoon or evening for the patch. 1100 CIWA score is 0. Pt has some stomach pain, but currently denies nausea. Nursing staff explained that some stomach discomfort might be from not eating, and encouraged pt to slowly intake more at lunchtime Pt agreed.
[2024-03-01] MEDS: Ondansetron 4 MG/2 ML VIAL IVP ×2 (11:46→17:11)
[2024-03-01] MEDS: Normal Saline Flush 10 ML SYR IVP ×3 (11:47→17:39)
--- NOTE | 2024-03-01 13:44 | PT.INTREAT ---
PT Notes Visit Reasons: Pancreatitis Date: 03/01/24 PRECAUTIONS: fall risk, on CIWAS SUBJECTIVE: Pt in bed when approached for therapy this afternoon, agrees to participating with session OBJECTIVE: ? IV line on left antecubital? PAIN: abdominal VITALS:monitored by nursing? Therapeutic Activities 91871: Direct one-on-one instruction in dynamic activities to improve functional performance. ?? BED MOBILITY/TRANSFERS? Rolling L/R: Supervision Supine-sit: ?CGA ? Sit-supine: ?CGA ? Sit-stand: ?CGA ? Stand-sit: ?CGA ? Bed-Chair:? SBA? Chair-bed: SBA Provided skilled cues and instruction on performance and technique throughout. Gait Training 83680: Direct one-on-one instruction and skilled instruction in: Movement sequencing Turning and movement with proper form Provided verbal cues for equipment management and technique Provided instruction in gait pattern Patient education regarding pacing and breathing techniques to maximize activity tolerance? GAIT? Assistive Device: IV pole/FWW ? Weight bearing: FWB Assist: ?CGA? Distance:??175', 20'x2 ? Deviation: ?Ataxic gait, ? STAIRS:? 6 x 4 inch steps and 4 x 6 inch steps with 1 step over step pattern requiring supervision ? ASSESSMENT:?Pt had 1 LOB requiring min A for recovery, initially using pole but was much more stable using FWW. PLAN: Continue with balance training, global strengthening and general conditioning for improved safety, mobility and activity tolerance until pt is ready for DC. TREATMENT CODE/TIME: 84750f3, 72242w6 25mins (1:20-1:45pm)
[2024-03-01] MEDS: Enoxaparin 40 MG/0.4 ML SYR SC (14:19)
--- NOTE | 2024-03-01 14:54 | CHAPLAIN ---
Paul was resting in bed when I visited. He said he's tired and not feeling very well. I explained my role and offered support. He thanked me for visiting and asked if I could get a patch for him. I left his nurse know that he's looking for a nicotine patch. I will continue to visit.
[2024-03-01] MEDS: ACETAMINOPHEN 1,000 MG/100 ML BTL 400 MG IVPB ×2 (15:43→21:52)
--- NOTE | 2024-03-01 16:48 | NUR.NOTE ---
Nursing Note: Pt spiked a temp of 38.5, taught how to C&DB, notified provider, who ordered APAP IV. Pt needed to be told how to do coughing and deep breathing repeatedly. He became irritated with nursing. Also attempted to wrap right ac IV site as it has been redressed 3 times today d/t pt manipulating it. When attempting to wrap the IV site, pt told nursing that they should do it right and use that vein finder thingy and put it in a different place. Reported change in mentation to provider.
[2024-03-01] MEDS: Nicotine 14 MG/24 HR PATCH TD (17:11)
[2024-03-01 17:32] LABS: Procalcitonin 0.3 ng/mL
--- NOTE | 2024-03-01 17:35 | PGE_ITS ---
Date of Service Date of service: 03/01/24 Time of Service: 10:30 Assessment and Plan Assessment and plan (1) Alcoholic pancreatitis: Status: Acute Assessment and plan: No further vomiting, tolerating clears will advance diet Continued symptoms management Initial CT scan: Stranding in the peripancreatic fat consistent with pancreatitis. 3 millimeter calcification noted in the head of the pancreas not definitely within the duct. No pancreatic cyst or abscess. Considering the evening shaking IV fluid rate but with new fever developing we will continue IVF at the same rate; LVEF was 50% in February 2020 Continue multimodal pain management, as needed antiemetic CBC in AM Qualifiers: Acute pancreatitis complication: no infection or necrosis Chronicity: acute Qualified Code(s): K85.20 - Alcohol induced acute pancreatitis without necrosis or infection (2) Alcohol withdrawal: Status: Resolved Assessment and plan: CIWA at 0 to 4 Continue on librium TID Lorazepam PRN still ordered Minimal ext tremors when seen Qualifiers: Complication of substance-induced condition: uncomplicated Qualified Code(s): F10.230 - Alcohol dependence with withdrawal, uncomplicated (3) On deep vein thrombosis (DVT) prophylaxis: Assessment and plan: Platelets 178 Lovenox SC (4) Fever: Status: Acute Assessment and plan: Patient denies aspirating during episode of vomiting No oxygen supplementation required, no tachypnea Blood cultures ordered Procalcitonin ordered Considering imaging with CT of the chest abdomen abdomen and pelvis if fever persist without complaint resolved from blood cultures Patient on scheduled acetaminophen Incentive telemetry ordered (5) Hypokalemia: Status: Resolved Assessment and plan: K 3.4 K replaced Level in AM (6) Nicotine addiction: Status: Acute Assessment and plan: Continue PRN NRT (7) Discharge planning issues: Status: Resolved Assessment and plan: Most likely to go home when able to tolerate oral intake with adequate pain control and no S&S of complications Discussed with Dr. Rubio Subjective Subjective Patient reports: feels better, tolerating liquids well, voiding w/o difficulty, flatus, shortness of breath and afebrile; denies nausea or vomiting Exam Narrative Exam Narrative: Constitutional Seen around 10:00 this morning Neuro:alert and oriented to self, person, place time and situation. No neurological focal deficit and without acute distress Chest:Chest is symmetrical and normal appearance Resp: Normal respiratory pattern, speaks in full sentences, clear lung bilaterally Cardio: regular rhythm, S1, S2, no murmur, positive radial and pedal pulses biltaterally GI: Abdomen is not distended, soft and tender to left upper quadrant , bowel sounds are present : Negative Costovertebral angle tenderness, no bladder distension Back/spine/Pelvis: No back tenderness, normal alignment Integumentary: No skin lesions or rash Psych: RASS 0, congruent mood and normal affect. Later in the afternoon patient developed a fever, had increased gait instability with increased restlessness. The patient did not need any oxygen supplementation, lungs were clear without tachypnea. Objective Last Vital Signs Temp 38 C H 03/01/24 17:28 Pulse 100 H 03/01/24 14:05 Resp 20 03/01/24 14:05 BP 141/91 H 03/01/24 14:05 Pulse Ox 96 03/01/24 14:05 Laboratory Results - last 24 hr 02/29/24 03/01/24 03/01/24 22:00 06:06 16:35 WBC 11.60 H RBC 3.88 L Hgb 13.7 Hct 38.4 L MCV 99 H MCH 35.3 H MCHC 35.7 RDW 12.3 Plt Count 115 L MPV 10.3 Immature Gran % 0.5 Neutrophils % 83.2 Lymphocytes % 10.9 Monocytes % 4.6 Eosinophils % 0.5 Basophils % 0.3 Nucleated RBC % 0.0 Absolute Neutrophils 9.65 H Absolute Lymphocytes 1.26 Absolute Monocytes 0.53 Absolute Eosinophils 0.06 Absolute Basophils 0.03 Sodium 132 L Potassium 3.4 L Chloride 95 L Carbon Dioxide 26.5 Anion Gap 10.5 BUN 3 L Creatinine 0.6 L Est GFR (CKD-EPI 2020) 119.82 Glucose 107 H Calcium 8.5 Magnesium 2.6 H 2.0 Procalcitonin 0.3 PAWSS Have you Been Recently Intoxicated or Drunk Within the Last 30 days?: Yes Have you Ever Experienced Previous Episodes of Alcohol Withdrawal?: Yes Have you ever Experienced Withdrawal Seizures?: No Have you ever Experienced Delirium Tremens(DT)s?: No Have you ever undergone Alcohol Rehabilitation Treatment (i.e, inpt ot outpa tient treatment programs)?: Yes Have you ever Experienced Blackouts?: Yes Have you ever Combined Alcohol with other Downers within the last 90 days?: No Have you ever Combined Alcohol with any other Substance of Abuse during the last 90 days?: No Positive Blood Alcohol level on Presentation? [PCS.BAL]: Yes Evidence of Increased Autonomic Activity (i.e. HR>120, tremor, sweating, agitation, nausea)?: Yes Result: 6 Time Spent with Patient Time Spent with Patient: 35-49 minutes Time was spent: preparing to see the patient(eg.review tests), ordering medications,tests, procedures, referring, communicating with other health group care worker, indepentently interpreting results, counseling the patient and care coordination
[2024-03-01] MEDS: Potassium Chloride 20 MEQ TABCR PO (17:53)
[2024-03-01 19:22] LABS: Bilirubin Negative (Negative); Blood Trace-intact (Negative); Clarity Clear (Clear); Glucose 100 mg/dL (Negative); Ketones Negative (Negative); Leukocyte Esterase Negative (Negative); Nitrite Negative (Negative); Specific Gravity 1.015 (1.005-1.025); Urobilinogen 0.2 mg/dL (Up to 0.2)
[2024-03-01 19:44] LABS: Epithelial Cells Rare HPF (Negative); RBC 0-2 HPF (0-2); WBC 0-2 HPF (0-5)
[2024-03-01 19:45] LABS: Bacteria Negative HPF (Negative); C & S Indicated? No; Casts Negative LPF (Negative); Crystals Negative HPF (Negative); Mucus Negative (Negative)
--- NOTE | 2024-03-01 20:17 | NUR.NOTE ---
Referral faxed to [facility] for f/u ernie with armpit swelling.Nursing Note:
[2024-03-02] VITALS (7 sets, daily range): BP systolic 110–121; BP diastolic 72–87; PULSE 91–99; RESP 18; TEMP 37.2–38; O2SAT 96–98
[2024-03-02] MEDS: Lactated Ringers 1,000 ML 150 ML IV ×2 (02:02→09:47)
[2024-03-02] MEDS: FAMOTIDINE 20 MG/50 ML BAG 200 MG IVPB ×2 (02:03→14:03)
[2024-03-02] MEDS: ACETAMINOPHEN 1,000 MG/100 ML BTL 400 MG IVPB ×4 (04:29→22:25)
[2024-03-02 06:30] LABS: Abs Immature Grans 0.09 10^3/uL (0.0-0.06); Absolute Basophil Count 0.04 10^3/uL (0.0-0.2); Absolute Lymphocyte Count 1.23 10^3/uL (1.2-3.4); Absolute Monocyte Count 0.85 10^3/uL (0.1-0.8); Basophils % 0.3 %; HCT 32.1 % (40.0-50.0); HGB 11.6 g/dL (13.5-17.5); Immature Grans % 0.7 %; Lymphocytes % 9.9 %; MCH 36.3 pg (27.0-33.0); MCHC 36.1 % (32.0-36.0); MCV 100 fL (80-95); MPV 10.4 fL (8.0-11.0); Monocytes % 6.9 %; Neutrophils % 81.2 %; Platelet Count 106 10^3/uL (130-400); RDW 12.6 % (11.8-14.1); WBC 12.39 10^3/uL (4.4-10.8)
[2024-03-02 06:43] LABS: Absolute Eosinophil Count 0.12 10^3/uL (0.0-0.7); Absolute Neutrophil Count 10.06 10^3/uL (1.2-6.7)
[2024-03-02 06:48] LABS: BUN 3 mg/dL (7-18); CREATININE 0.7 mg/dL (0.70-1.30); Calcium 8.5 mg/dL (8.5-10.1); Chloride 101 mmol/L (98-107); Estimated GFR 114.37 (mL/min/1.73m2); Glucose 100 mg/dL (74-106); Magnesium 1.6 mg/dL (1.8-2.4); Potassium 3.2 mmol/L (3.5-5.1); Sodium 134 mmol/L (136-145)
[2024-03-02] MEDS: POTASSIUM CHLORIDE 20 MEQ/100 ML BAG 50 MEQ IVINF ×2 (08:09→15:20)
[2024-03-02] MEDS: Magnesium Gluconate 500 MG TAB PO (08:10)
[2024-03-02] MEDS: chlordiazePOXIDE 25 MG CAP PO ×3 (08:10→19:47)
[2024-03-02] MEDS: Potassium Chloride Liquid 20 MEQ PKT PO ×2 (08:10→19:48)
--- NOTE | 2024-03-02 09:20 | PT.INTREAT ---
PT Notes Visit Reasons: Pancreatitis Date: 03/02/24 PRECAUTIONS: fall risk, on CIWAS SUBJECTIVE: Pt in bed when approached for therapy this morning, agrees to participating with session OBJECTIVE: ? IV line on left antecubital? PAIN: abdominal VITALS:monitored by nursing? Therapeutic Activities 41295: Direct one-on-one instruction in dynamic activities to improve functional performance. ?? BED MOBILITY/TRANSFERS? Rolling L/R: Supervision Supine-sit: ?SBA ? Sit-supine: ?SBA? Sit-stand: ?SBA? Stand-sit: ?SBA? Bed-Chair:? SBA? Chair-bed: SBA Provided skilled cues and instruction on performance and technique throughout. Gait Training 94991: Direct one-on-one instruction and skilled instruction in: Movement sequencing Turning and movement with proper form Provided verbal cues for equipment management and technique Provided instruction in gait pattern Patient education regarding pacing and breathing techniques to maximize activity tolerance? GAIT? Assistive Device: FWW ? Weight bearing: FWB Assist: ?CGA? Distance:??300'? Deviation: ?Ataxic gait, ? STAIRS:? 6 x 4 inch steps and 4 x 6 inch steps step to bilateral handrail ? ASSESSMENT: tolerated activity well, had no complaint of pain with activity, cue to stay closer to the FWW for improved stability while gait training. PLAN: Continue with balance training, global strengthening and general conditioning for improved safety, mobility and activity tolerance until pt is ready for DC. TREATMENT CODE/TIME: 21116c6, 24845b3 25mins (9:00-9:25am)
[2024-03-02] MEDS: MAGNESIUM SULFATE 2 GM/50 ML BAG IVINF (10:55)
--- NOTE | 2024-03-02 12:30 | W.PM.PROGNOT ---
Date of Service Date of service: 03/02/24 Time of Service: 12:30 Assessment and Plan Assessment and plan (1) Alcoholic pancreatitis: Status: Acute Assessment and plan: No further vomiting, tolerating fulls so will advance diet to regular Initial CT scan: Stranding in the peripancreatic fat consistent with pancreatitis. 3 millimeter calcification noted in the head of the pancreas not definitely within the duct. No pancreatic cyst or abscess. IV fluids discontinued Continue multimodal pain management, as needed antiemetic CBC in AM Qualifiers: Chronicity: acute Acute pancreatitis complication: no infection or necrosis Qualified Code(s): K85.20 - Alcohol induced acute pancreatitis without necrosis or infection (2) Fever: Status: Acute Assessment and plan: no source of fever identified no fever or elevated white count No oxygen supplementation required, no tachypnea no rashes or lesion no increased abd pain, pain is improving. no evidence of abscess on CT Blood cultures pending Procalcitonin 0.3 Patient on scheduled acetaminophen Incentive spirometer ordered (3) Alcohol withdrawal: Status: Acute Assessment and plan: CIWA at 0 to 4 Continue on librium TID Lorazepam PRN still ordered Minimal ext tremors when seen Qualifiers: Complication of substance-induced condition: uncomplicated Qualified Code(s): F10.230 - Alcohol dependence with withdrawal, uncomplicated (4) On deep vein thrombosis (DVT) prophylaxis: Assessment and plan: Platelets 178 Lovenox SC (5) Hypokalemia: Status: Acute Assessment and plan: replete and follow mag 1.6, repleting that as well (6) Nicotine addiction: Status: Acute Assessment and plan: Continue PRN NRT (7) Discharge planning issues: Status: Acute Assessment and plan: home with no services once medically stable. Discussed with Dr. Rubio Subjective Subjective Patient reports: no new complaints, feels better, tolerating liquids well, diarrhea and afebrile (max temp overnight 38.0); denies nausea Exam Narrative Exam Narrative: well-appearing male of stated age in no acute distress head is atraumatic eyes nonicteric noninjected EOMs intact oral mucosas moist neurologic awake alert oriented no focal deficits psychiatric normal mood and affect cooperative no symptoms of alcohol withdrawal no tremors cardiovascular regular rate and rhythm no murmurs appreciated respirations even and unlabored breath sounds clear bilaterally dim in the bases abdomen is soft slightly tender over the epigastrium no guarding no rebound no masses. Moves all extremities no peripheral edema Objective Last Vital Signs Temp 37.5 C 03/02/24 07:28 Pulse 98 H 03/02/24 07:28 Resp 18 03/02/24 07:28 BP 121/87 03/02/24 07:28 Pulse Ox 98 03/02/24 07:28 Laboratory Results - last 24 hr 03/01/24 03/01/24 03/02/24 16:35 19:07 05:45 WBC 12.39 H RBC 3.20 L Hgb 11.6 L D Hct 32.1 L MCV 100 H MCH 36.3 H MCHC 36.1 H RDW 12.6 Plt Count 106 L MPV 10.4 Immature Gran % 0.7 Neutrophils % 81.2 Lymphocytes % 9.9 Monocytes % 6.9 Eosinophils % 1.0 Basophils % 0.3 Nucleated RBC % 0.0 Absolute Neutrophils 10.06 H Absolute Lymphocytes 1.23 Absolute Monocytes 0.85 H Absolute Eosinophils 0.12 Absolute Basophils 0.04 Sodium 134 L Potassium 3.2 L Chloride 101 Carbon Dioxide 24.0 Anion Gap 9.0 BUN 3 L Creatinine 0.7 Est GFR (CKD-EPI 2020) 114.37 Glucose 100 Calcium 8.5 Magnesium 1.6 L Procalcitonin 0.3 Urine Color Yellow Urine Clarity Clear Urine pH 7.0 Ur Specific [place] 1.015 Urine Protein Trace Urine Ketones Negative Urine Blood Trace-intact H Urine Nitrite Negative Urine Bilirubin Negative Urine Urobilinogen 0.2 Ur Leukocyte Esterase Negative Urine RBC 0-2 Urine WBC 0-2 Ur Epithelial Cells Rare Urine Crystals Negative Urine Bacteria Negative Urine Casts Negative Urine Mucus Negative Ur Culture Indicated? No Urine Glucose 100 H PAWSS Have you Been Recently Intoxicated or Drunk Within the Last 30 days?: Yes Have you Ever Experienced Previous Episodes of Alcohol Withdrawal?: Yes Have you ever Experienced Withdrawal Seizures?: No Have you ever Experienced Delirium Tremens(DT)s?: No Have you ever undergone Alcohol Rehabilitation Treatment (i.e, inpt ot outpatient treatment programs)?: Yes Have you ever Experienced Blackouts?: Yes Have you ever Combined Alcohol with other Downers within the last 90 days?: No Have you ever Combined Alcohol with any other Substance of Abuse during the last 90 days?: No Positive Blood Alcohol level on Presentation? [PCS.BAL]: Yes Evidence of Increased Autonomic Activity (i.e. HR>120, tremor, sweating, agitation, nausea)?: Yes Result: 6 Time Spent with Patient Time Spent with Patient: 35-49 minutes Time was spent: preparing to see the patient(eg.review tests), obtaining and/or reviewing separately otained hiistory, ordering medications,tests, procedures, indepentently interpreting results and counseling the patient
[2024-03-02] MEDS: Enoxaparin 40 MG/0.4 ML SYR SC (14:02)
[2024-03-02 18:18] LABS: C Diff PCR Negative (Negative)
[2024-03-02] MEDS: Nicotine 14 MG/24 HR PATCH TD (19:47)
[2024-03-02] MEDS: Ketorolac 15 MG/ML VIAL IVP (19:48)
[2024-03-03] MEDS: FAMOTIDINE 20 MG/50 ML BAG 200 MG IVPB (02:54)
[2024-03-03] MEDS: ACETAMINOPHEN 1,000 MG/100 ML BTL 400 MG IVPB ×2 (03:45→08:53)
[2024-03-03 06:48] LABS: Abs Immature Grans 0.04 10^3/uL (0.0-0.06); Absolute Basophil Count 0.03 10^3/uL (0.0-0.2); Absolute Eosinophil Count 0.28 10^3/uL (0.0-0.7); Absolute Lymphocyte Count 1.66 10^3/uL (1.2-3.4); Absolute Monocyte Count 0.66 10^3/uL (0.1-0.8); Absolute Neutrophil Count 6.15 10^3/uL (1.2-6.7); Basophils % 0.3 %; Eosinophils % 3.2 %; Immature Grans % 0.5 %; Lymphocytes % 18.8 %; MCH 35.6 pg (27.0-33.0); MCHC 34.4 % (32.0-36.0); MCV 104 fL (80-95); Monocytes % 7.5 %; Neutrophils % 69.7 %; Platelet Count 119 10^3/uL (130-400); RBC 3.09 10^6/uL (4.36-5.78); RDW 12.9 % (11.8-14.1); RDW-SD 48.1 fL; WBC 8.82 10^3/uL (4.4-10.8)
[2024-03-03 07:02] LABS: ALT 11 U/L (16-63); AST 14 U/L (15-37); Albumin 2.6 g/dL (3.4-5.0); Alkaline Phosphatase 56 U/L (46-116); Anion Gap 7.9 mmol/L (3-11); BUN 6 mg/dL (7-18); Bilirubin, Total 0.54 mg/dL (0.2-1.0); CO2 25.1 mmol/L (21.0-32.0); CREATININE 0.8 mg/dL (0.70-1.30); Calcium 8.9 mg/dL (8.5-10.1); Chloride 106 mmol/L (98-107); Estimated GFR 109.85 (mL/min/1.73m2); Glucose 108 mg/dL (74-106); Potassium 3.7 mmol/L (3.5-5.1); Sodium 139 mmol/L (136-145); Total Protein 6.6 g/dL (6.4-8.2)
[2024-03-03 07:37] VITALS: BP 121/85; PULSE 66; RESP 18; TEMP 37; O2SAT 97
[2024-03-03 07:58] VITALS: BP 123/84; PULSE 76; RESP 18; TEMP 37; O2SAT 100
--- NOTE | 2024-03-03 08:48 | PTTR_ITS ---
PT Notes Visit Reasons: Pancreatitis Date: 03/03/24 PRECAUTIONS: fall risk, on CIWAS SUBJECTIVE: Pt in bed when approached for therapy this morning, agrees to participating with session OBJECTIVE: ? PAIN: abdominal (decreased significantly) VITALS:monitored by nursing? Therapeutic Activities [id number]: Direct one-on-one instruction in dynamic activities to improve functional performance. ?? BED MOBILITY/TRANSFERS? Rolling L/R: Supervision Supine-sit: ?Supervision? Sit-supine: ? Supervision? Sit-stand: ? ?Supervision ? Stand-sit: ?? Supervision? Bed-Chair:? ?Supervision ? Chair-bed: Supervision Provided skilled cues and instruction on performance and technique throughout. Gait Training [id number]: Direct one-on-one instruction and skilled instruction in: Movement sequencing Turning and movement with proper form Provided verbal cues for equipment management and technique Provided instruction in gait pattern Patient education regarding pacing and breathing techniques to maximize activity tolerance? GAIT? Assistive Device: None ? Weight bearing: FWB Assist: ?CGA ? Distance:??300'x2? Deviation: ?Ataxic gait, ? STAIRS:? 6 x 4 inch steps and 4 x 6 inch steps step to bilateral handrail ? ASSESSMENT: Pt able to complete big loop without AD pt had a couple of LOB which he was able to self recover. PLAN: Continue with balance training, global strengthening and general conditioning for improved safety, mobility and activity tolerance until pt is r mike for DC. TREATMENT CODE/TIME: [id number], [id number] mins (9:00-9:25am)
[2024-03-03] MEDS: Potassium Chloride Liquid 20 MEQ PKT PO (08:53)
[2024-03-03] MEDS: Magnesium Gluconate 500 MG TAB PO (08:54)
[2024-03-03] MEDS: chlordiazePOXIDE 25 MG CAP PO (08:54)
[2024-03-03] MEDS: Normal Saline Flush 10 ML SYR IVP (08:55)
--- NOTE | 2024-03-03 12:10 | DSE_ITS ---
Date of service: 03/03/24 Time of Service: 12:10 DS: Diagnosis Discharge Diagnosis (1) Alcoholic pancreatitis: Status: Acute (2) Fever: Status: Acute (3) Alcohol withdrawal: Status: Acute (4) Hypokalemia: Status: Acute (5) Nicotine addiction: Status: Acute Discharge Plan Disposition Patient Disposition: Home Condition: Stable Discharge Details Reason For Visit: Pancreatitis Admit Date/Time: 02/28/24 23:20 Admit Provider: Jer Barrera Attending Provider: Jer Barrera Primary Care Provider: OWEN GARRISON Hospital Course Hospital Course: This is a 48 year old male with past medical history of alcoholism with episodes of pancreatitis who presented to the ED with several weeks of waxing and waning abdominal pain. work up in the ED consistent with acute pancreatitis and admitted to hospitalist services for management. Patient responded to bowel rest, IV hydration, antiemetics and pain management. He responded to treatment and pain improved. Diet advanced with continued improvement. vitals remained stable, labs normalized and now ready for discharge. He will follow up outpatient with pcp, he was advised to abstain from alcohol. discussed with DR Zuniga Home Meds and New Rx's Prescriptions: No Action No Known Home Meds Discharge Instructions Instructions: Acute pancreatitis Additional Instructions: avoid alcohol. Stand Alone Forms: Nursing Discharge Form Referrals: OWEN GARRISON, LAND DEVELOPMENT PROJECT MANAGER [Primary Care Provider] - (Please call the office on Monday to set up a hospital follow up) Activity:: Activity as Tolerated Equipment/Supplies:: No Equipment Needed Diet:: As Tolerated Discharge Orders Discharge Orders: Discharge Order (Routine); Ordered 03/03/24 Ordered By: Annabelle Merritt Discharge Data Discharge Date/Time-TO BE ENTERED AT DEPARTURE: 03/03/24 13:16 DS: Summary Time Spent with Patient providing and/or coordinating discharge services: Greater than 30 minutes Status at Discharge Functional status at discharge: independent ambulation Overall status at discharge: patient is back to baseline Mental Status: mental status grossly normal Speech and Movement: speech and movement normal Mood: congruent mood Affect: normal affect Quality:SDOH Health Related Social Needs: Health related social needs food insecurity, transpo i nsecurity Health related social needs details Has mold in his ap artment, would be interested in legal clerk resources for tenant rights Exam Narrative Exam Narrative: well-appearing male of stated age in no acute distress head is atraumatic eyes nonicteric noninjected EOMs intact oral mucosas moist neurologic awake alert oriented no focal deficits psychiatric normal mood and affect cooperative no symptoms of alcohol withdrawal no tremors cardiovascular regular rate and rhythm no murmurs appreciated respirations even and unlabored breath sounds clear bilaterally dim in the bases abdomen is soft slightly tender over the epigastrium no guarding no rebound no masses. Moves all extremities no peripheral edema Psych Mental Status: mental status grossly normal Speech and Movement: speech and movement normal Mood: congruent mood Affect: normal affect DS: Data Vitals/I&O Vitals and I&O: Vital Signs Temperature 37.0 C 03/03/24 07:58 Temperature Source Tympanic 03/03/24 07:58 Pulse 76 03/03/24 07:58 Pulse Rhythm Regular 03/03/24 09:06 Pulse 100 H 02/28/24 23:40 Respiratory Rate 18 03/03/24 07:58 Respiratory Effort Normal, Non-Labored 03/03/24 09:06 Respiratory Depth Normal 03/03/24 09:06 Respiratory Pattern Normal 03/03/24 09:06 Blood Pressure 123/84 03/03/24 07:58 Blood Pressure Mean 87 02/28/24 23:16 Blood Pressure Position Sitting 02/28/24 20:34 Pulse Oximetry 100 03/03/24 07:58 Oxygen Delivery Method Room Air 03/03/24 07:58 Oxygen Flow Rate 0 03/03/24 07:58 Pain Level 0 03/03/24 07:58 Intake & Output 03/02/24 03/03/24 03/03/24 23:59 11:59 23:59 Intake Total 1810 / 4140 450 / 450 Output Total 1525 / 2875 1375 / 1375 Balance 285 / 1265 -925 / -925 Intake: IV 1360 / 3690 150 / 150 Oral 450 / 450 300 / 300 Output: Urine 1525 / 2875 1375 / 1375 Other: Urine Color Yellow Yellow [place] Urine Appearance Clear Clear Urine Odor Strong Comment Frothy Stool Size Moderate Stool Characteristics Liquid Brown Voiding Methods Bedside Commode Toilet Data Completed and Pending Labs on day of discharge: Labs from last 24 hours 03/03/24 03/02/24 06:05 17:25 WBC 8.82 RBC 3.09 L Hgb 11.0 L Hct 32.0 L MCV 104 H D MCH 35.6 H MCHC 34.4 RDW 12.9 Plt Count 119 L MPV 10.0 Immature Gran % 0.5 Neutrophils % 69.7 Lymphocytes % 18.8 Monocytes % 7.5 Eosinophils % 3.2 Basophils % 0.3 Nucleated RBC % 0.0 Absolute Neutrophils 6.15 Absolute Lymphocytes 1.66 Absolute Monocytes 0.66 Absolute Eosinophils 0.28 Absolute Basophils 0.03 Sodium 139 Potassium 3.7 Chloride 106 Carbon Dioxide 25.1 Anion Gap 7.9 BUN 6 L Creatinine 0.8 Est GFR (CKD-EPI 2020) 109.85 Glucose 108 H Calcium 8.9 Magnesium 2.0 Total Bilirubin 0.54 AST 14 L ALT 11 L Alkaline Phosphatase 56 Total Protein 6.6 Albumin 2.6 L Stl C.difficile Tox PCR Negative Preliminary micro results at discharge 03/01/24 16:42 Blood Culture - Preliminary Blood NO GROWTH 24 HOURS 03/01/24 16:35 Blood Culture - Preliminary Blood NO GROWTH 24 HOURS PFSH All Active Problems (Updated 03/02/24 @ 12:37 by Annabelle Merritt NP) Discharge planning issues (Acute) Hypokalemia (Acute) Alcohol withdrawal (Acute) Fever (Acute) Nicotine addiction (Acute) Gastroenteritis (Acute) Gastritis (Acute) Alcoholic pancreatitis (Acute) Trochanteric bursitis, right hip (Acute) Avascular necrosis of bone of left hip (Acute) Chest pain (Acute) due to ETOH Hepatic steatosis (Acute) COVID-19 ruled out (Acute) Tobacco abuse (Acute) Impairment of balance (Acute) Chronic vertigo (Acute) Electrolyte and fluid disorder (Acute) Medical History On deep vein thrombosis (DVT) prophylaxis Surgical History 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) Cyst of right upper eyelid Family History Maternal Grandfather Alcohol abuse Maternal Uncle Alcohol abuse Social History Smoking/Tobacco Use Status: Current every day Tobacco Type: cigarettes Years smoked: 25 Smoking risk assessment performed?: Yes Alcohol Intake: current Alcohol Intake frequency: 3 or more drinks per day Alcohol type: beer and hard liquor Details: last drink was 2 weeks ago Drug use: Never Substance use type: does not use Housing: 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 Time Spent with Patient Time Spent with Patient: 45-69 minutes Time was spent: preparing to see the patient(eg.review tests), indepentently interpreting results and counseling the patient
--- NOTE | 2024-03-03 12:14 | PDOC.CMDIS ---
Date of service: 03/03/24 Time of Service: 12:14 LACE Index Scoring Tool Questions: Length of Stay (in days): 4 - 6 Was the patient admitted via the E.D.?: Yes E.D. Visits: 5 Answers: Total Score: 11 Risk of Readmission: High Risk Care Management Discharge Plan Reason for Hospitalization: Pancreatitis Discharge Plan: Paul is discharged home with a plan for community follow up. Paul agrees to call his PCP on Monday to schedule a hospital follow up and expressed that he will stay connected with [facility] and agreed to a referral to [facility] at [facility] due to housing related issues. Paul is transported home via [facility]. Patient/Family Education Needs: Review discharge instructions, limitations and plan to follow up with community providers. Discuss ask me three. Services Needed at Discharge: Transportation ([facility], coordinated by CM) SDOH Health Related Social Needs: Health related social needs food insecurity, transpo insecurity Health related social needs: food insecurity(Z59.41) and transportation insecurity(Z59.82) Health related social needs details: Has mold in his apartment, would be interested in legal writing professor resources for tenant rights Care Management Referrals: [facility]
== END 2024-03-03 13:16 | disposition home or self-care (01) | DRG 439 ==
LOC: ER 23:56 → MS 23:58
PROVIDERS: Internal Medicine; Nurse Practitioner Acute Care; Admitting Provider General Practice; Emergency Provider Nurse Practitioner Family; PCP Nurse Practitioner Family; Visit Provider General Practice
DX: K85.20 Alcohol induced acute pancreatitis without necrosis or infection (principal); F10.230 Alcohol dependence with withdrawal, uncomplicated; Z79.899 Other long term (current) drug therapy; E87.6 Hypokalemia; R50.9 Fever, unspecified; F17.210 Nicotine dependence, cigarettes, uncomplicated; R07.89 Other chest pain; K76.0 Fatty (change of) liver, not elsewhere classified; Z96.641 Presence of right artificial hip joint; R26.81 Unsteadiness on feet
CPT/HCPCS: 00123; 36415; 80048; 80053; 83690; 84145; 87040; 87493; 93005; 96365; 96366; 96375; 97116; 97162; 97530; 99285; J1650; 74177; 80320; 81003; 81015; 83735; 84484; 85025; 93010; 99222; 99232; 99233; 99239; J0131; J0780; J1170; J1885; J2270; J2405; J3411; J3475; J3480; J3490

== ENCOUNTER 2024-03-30 16:44 | Emergency (ER) | payer MEDICAID, SELFPAY ==
[2024-03-30] VITALS (53 sets, daily range): BP systolic 133–141; BP diastolic 81–88; PULSE 70–85; RESP 0–36; TEMP 36.4–37.2; O2SAT 93–100
--- NOTE | 2024-03-30 16:45 | RT.EKG_ITS ---
APPROVED REPORT Exam: Resting ECG Reason for Exam: epigastric pain Patient Location: E HR:79 bpm ECG Measurements Heart Rate 79 AXIS VT 204 P 15 QRSd 98 QRS 71 QT 387 T 68 QTc 444 Conclusion Sinus rhythm...normal P axis, V-rate 60- 99 Borderline prolonged VT interval...VT >202, V-rate 50- 90 sinus, normal axis, consider prolonged VT, non ischemic
--- NOTE | 2024-03-30 17:00 | DI.RAD_ITS ---
Exam(s) XR CHEST 2V PA LATERAL EXAM: XR CHEST 2V PA LATERAL CLINICAL HISTORY: epigastric chest pain. TECHNIQUE: 2D digital imaging was performed. COMPARISON: CR,XR XR CHEST 2V PA LATERAL from 02/13/2024 FINDINGS: 2 views: Heart size is normal. The mediastinum is not widened. Right lung is clear. There is platelike atelectasis evident in the left parahilar region. No free air subjacent to the hemidiaphragms, given the history here.. IMPRESSION: Subsegmental platelike atelectasis mid left lung. No infiltrates. No pleural effusions. No pneumot horax. DATA REPOSITORY: RADIATION DOSE DELIVERED:
--- NOTE | 2024-03-30 17:00 | DI.CT_ITS ---
Exam(s) CT ABDOMEN PELVIS W EXAM: CT ABDOMEN PELVIS W CLINICAL HISTORY: epigastric abd pain, hx pancreatitis. TECHNIQUE: Imaging Protocol: Axial computed tomography images with coronal and sagittal reformatted images were created and reviewed CONTRAST MATERIAL: Intravenous: Omnipaque-350 100cc Oral: None COMPARISON: CT CT ABDOMEN PELVIS W from 02/28/2024 FINDINGS: VISUALIZED LUNG BASES: No nodules nor pleural effusions evident. Multiple subacute appearing rib fra ctures. ABDOMEN: LIVER: There are no focal hepatic lesions evident. No dilated intrahepatic ducts. GALLBLADDER/BILIARY: Gallbladder is moderately distended. No calcified gallstones noted. No gallbla dder wall edema nor pericholecystic fluid. CBD is not dilated. PANCREAS: There is subtle stranding in the fat around the pancreatic tail but less than was evident o n 02/28/2024. There is no pseudocyst formation evident in the pancreas and surrounding tissues. The re is no thrombosis of the adjacent splenic vein. SPLEEN: Spleen is not enlarged. No obvious intrasplenic lesions. Splenic and portal veins are paten t. ADRENALS: Right adrenal gland unremarkable. Small nodule in the left adrenal gland is unchanged. KIDNEYS:No cysts evident. No solid renal masses. No calculi nor hydronephrosis.. ABDOMINAL AORTA: Abdominal aorta is not enlarged. LYMPH NODES:There is no retroperitoneal nor paraaortic adenopathy. ABDOMINAL WALL: No evidence of significant anterior abdominal wall nor inguinal hernia. GI: There is no evidence of bowel obstruction, free air, nor abscess. PELVIS: GI: No evidence of appendicitis.No evidence of sigmoid diverticulitis. LYMPH NODES: There is no intrapelvic nor inguinal adenopathy. REPRODUCTIVE: Prostate size normal. Partially obscured by beam hardening artifact from right hip pro sthesis. URINARY BLADDER: Mild uniform thickening of the bladder wall. Bladder is partially obscured by beam hardening artifact from right hip prosthesis. OSSEOUS: Right hip prosthesis. There is again noted avascular necrosis of the left hip femoral head. No vertebral fractures nor listhesis. IMPRESSION: 1. There is fat stranding around the pancreatic tail consistent with pancreatitis. The amount of str anding, however, is less than was evident on the most recent CT scan of 02/28/2024. Is difficult to determine if this is remnant stranding with improvement or if there has been interval complete resolu tion and this is new pancreatitis. There is no evidence of pseudocyst. Pancreatic duct diameter is upper normal. Is a single pancreatic calcification in the uncinate process. 2. Mild distention of the gallbladder. No gallbladder wall edema. No radiopaque calculi seen. CBD is not dilated. No dilated intrahepatic ducts. 3. There is a right hip prosthesis and there is avascular necrosis/osteonecrosis of the left femoral head without loss of the architecture of the left femoral head at this time. Hip findings may be rel ated to the pancreas. 4. No pleural effusions evident Report called by myself to ER physician 03/30/2024 at 6:58 p.m. RADIATION DOSE DELIVERED: Total DLP DATA REPOSITORY: All CT scans at this facility are submitted to the National Radiology Data Registry (NRDR) Dose Index Registry (DIR) with the [employer] (ACR). RADIATION OPTIMIZATION: All CT scans at this facility use at least one of these dose optimization te chniques: automated exposure control; mA and/or kV adjustment per patient size (includes targeted exa ms where dose is matched to clinical indication); or iterative reconstruction.
[2024-03-30 17:20] LABS: Abs Immature Grans 0.03 10^3/uL (0.0-0.06); Absolute Basophil Count 0.06 10^3/uL (0.0-0.2); Absolute Eosinophil Count 0.07 10^3/uL (0.0-0.7); Absolute Lymphocyte Count 1.57 10^3/uL (1.2-3.4); Absolute Monocyte Count 0.68 10^3/uL (0.1-0.8); Absolute Neutrophil Count 2.89 10^3/uL (1.2-6.7); Basophils % 1.1 %; Eosinophils % 1.3 %; HCT 34.7 % (40.0-50.0); HGB 12.7 g/dL (13.5-17.5); Immature Grans % 0.6 %; Lymphocytes % 29.6 %; MCH 36.3 pg (27.0-33.0); MCHC 36.6 % (32.0-36.0); MCV 99 fL (80-95); MPV 9.2 fL (8.0-11.0); Monocytes % 12.8 %; Neutrophils % 54.6 %; Nucleated RBC 0.4 % (0.0-0.3); Platelet Count 135 10^3/uL (130-400); RDW 13.2 % (11.8-14.1); RDW-SD 47.8 fL
--- OUTSIDE RECORDS SUMMARY | 2024-03-30 17:23 | XMS_ITS | Encounter Summary ---
Author Organization [facility] Address [address] [place] [address] Care Team Providers Care Cancer Program Consultant Name Role Phone Unknown, Provider Primary Care Provider [phone] Encounter Details Date Type Department Care Team (Late st Contact Info) Description 11/25/2016 Results Only [facility] [phone] Jackie Marin, DO [address] [place] [address] Social History Tobacco Use Types Packs/Day Years Used Date Smoking Tobacco: Never Assessed Sex and Gender Information Value Date Recorded Sex Assigned at Not on file Gender Identity Not on file Sexual Orientation Not on file documented as of this encounter Plan of Treatment Not on file documented as of this encounter Procedures Procedure Name Priority Date/Time Associated Diagnosis Comments SURGICAL PATHOLOGY Routine 11/25/2016 5:50 EDT documented in this encounter Results * SURGICAL PATHOLOGY (11/25/2016 5:50 EDT) Pathology Report: SURGICAL PATHOLOGY REPORT Reports generated via electronic interface contain original data; however they are lacking the format of the original report. Caution should be taken when reading/interpret ing unformatted reports. Name: ? PARSONPAUL ? Accession #: ? [id number] ? : ? 1975 (Age: 41) ??M ? Collect Date: ? 11/25/2016 ? Location: ? [facility] ? Receive Date: ? 11/26/2016 ? Provider: JACKIE MARIN DO Copy to: SEBASTIAN JOSHI MD ? Final Pathologic Diagnosis: SKIN OF CHEEK, RIGHT, EXCISION: - Follicular cyst, infundibular type. Microscopic Description: There is a dermal cyst that is lined by stratified squamous epithelium that matures through a granular layer. ??The cyst is filled with laminated orthokeratin. ??(Dr. Dumont)/[facility] Document reviewed and electronically signed by: MARIA FERNANDA DUMONT MD Report ??Date: 11/28/2016 14:00 By the signature above, the attending physician certifies that he/she has personally conducted a gross and/or microscopic examination of the described specimens and rendered or confirmed the above diagnosis. Specimen(s) Received: Right cheek skin lesion Clinical History: Neoplasm of other skin; clinical diagnosis code: ??D48.5 Gross Description: ? Received in formalin labelled with proper patient identification (initials S, C) and cheek neoplasm is irregular harper-brown focally hemorrhagic tissue (1.2 x 0.8 x 0.6 cm). One aspect of the fragments are covered by a harper-brown smooth glistening mucosal surface area. ??No discrete lesion can be identified. The two largest fragments are bisected and submitted entirely in 1 and 2, and the remaining fragments are submitted in 3. Megan Camilo 11/26/2016 9:58 AM End of Report [facility] 11/25/2016 5:50 EDT 11/26/2016 5:50 EDT Jackie Marin DO PATHOLOGY ORDERABLES [facility] [address] [place] [address] documented in this encounter Visit Diagnoses Not on filedocumented in this encounter Care Teams Cancer Program Consultant Relationship Specialty Start Date End Date Unknown, Provider, PCP - General 11/26/16 11/28/16 documented as of this encounter
--- OUTSIDE RECORDS SUMMARY | 2024-03-30 17:23 | XMS_ITS | Encounter Summary ---
Author Organization [facility] Address [address] [place] [address] Care Team Providers Care Yarding Supervisor Name Role Phone Monica Mulligan MD Primary Care Provider [phone] Encounter Details Date Type Department Care Team (Late st Contact Info) Description 02/20/2020 Lab Requisition [facility] Pathology & Laboratory Medicine - [facility] [address], [place] [id number] Outr Resulting Lab, Provider Social History Tobacco Use Types Packs/Day Years Used Date Smoking Tobacco: Never Assessed Sex and Gender Information Value Date Recorded Sex Assigned at Not on file Gender Identity Not on file Sexual Orientation Not on file documented as of this encounter Plan of Treatment Not on file documented as of this encounter Procedures Procedure Name Priority Date/Time Associated Diagnosis Comments ZZCOVID-19 TEST [facility] LAB PCR Today 02/20/2020 22:10 EDT COVID-19 TESTING Routine 02/20/2020 22:1 0 EDT documented in this encounter Results * COVID-19 TEST [facility] PCR (02/20/2020 22:10 EDT) Swab ENTIRE NASOPHARYNX / Unknown 02/20/2020 22:10 EDT 02/21/2020 8:37 EDT Provider Outr Resulting Lab MICROBIOLOGY - GENERAL ORDERABLES [facility] [address] [place] [address] * COVID-19 TESTING (02/20/2020 22:10 EDT) COVID-19 rt-PCR Result Negative Negative 02/21/2020 12:52 EDT [facility] Comment: This test has not been FDA cleared or approved. This test has been authorized by FDA under an EUA for use by authorized laboratories. This test has been authorized only for detection of nucleic acid from 2019-nCoV, not for any other viruses or pathogens. This test is only authorized for the duration of the declaration that circumstances exist justifying the authorization of emergency use of in vitro diagnostic tests for detection and/or diagnosis of 2019-nCoV under section 564(b)(1) of Act, 21 U.S.C ?? 360bbb-3(b) (1), unless the authorization is terminated or revoked sooner. Negative results do not preclude 2019-nCoV infection and should not be used as the sole basis for treatment or other patient management decisions. Negative results must be combined with clinical observations, patient history, and epidemiological information. Performed on the ClrTouch Fusion instrument Performing Lab [place] [facility] 02/21/2020 12:52 EDT [facility] Swab 02/20/2020 22:1 0 EDT 02/21/2020 8:37 EDT Provider Outr Resulting Lab MICROBIOLOGY - GENERAL ORDERABLES [facility] [address] [place] [address] documented in this encounter Visit Diagnoses Not on filedocumented in this encounter Additional Health Concerns Infection Onset Date Last Indicated Resolved Time R/O COVID-19 02/20/2020 02/20/2020 02/25/2020 22:1 7 EDT documented as of this encounter Care Teams Yarding Supervisor Relationship Specialty Start Date End Date Monica Mulligan MD [address] [place] [phone] PCP - General 11/29/16 documented as of this encounter
--- OUTSIDE RECORDS SUMMARY | 2024-03-30 17:23 | XMS_ITS | Clinical Summary ---
Author Organization [facility] Address [address] [place] [address] Care Team Providers Care Shop Service Technician Name Role Phone Monica Mulligan MD Primary Care Provider [phone] Social History Tobacco Use Types Packs/Day Years Used Date Smoking Tobacco: Never Assessed Interpersonal Safety Answer Date Record ed Physically Hurt Never 03/23/2020 Verbally Threaten Not on file 03/23/2020 Sex and Gender Information Value Date Recorded Sex Assigned at Not on file Gender Identity Not on file Sexual Orientation Not on file Plan of Treatment Health Maintenance Due Date Last Done Comments Hepatitis B Vaccine (1 of 3 - 19+ 3-dose series) 03/15 COVID-19 Vaccine ( season) 2023 Hepatitis C Screen Completed 02/18/2020 Procedures Procedure Name Priority Date/Time Associated Diagnosis Comments HEPATITIS C AB W REFLEX TO HCV RNA BY PCR Today 02/18/2020 13:47 EDT from Last 3 Months or Most Recently Relevant to Health Maintenance Results * HEPATITIS C AB W REFLEX TO HCV RNA BY PCR (02/18/2020 13:47 EDT) Hep C Antibody Negative Negative 02/19/2020 11:53 EDT [facility] Blood VENOUS BLOOD / Unknown 02/18/2020 13:47 EDT 02/18/2020 20:44 EDT Provider Outr Resulting Lab CHEMISTRY & BLOOD GAS ORDERABLES [facility] [address] [place] [address] from Last 3 Months or Most Recently Relevant to Health Maintenance Care Teams Shop Service Technician Relationship Specialty Start Date End Date Monica Mulligan MD [address] [place] [address] [address] [place] [phone] PCP - General 11/29/16
--- OUTSIDE RECORDS SUMMARY | 2024-03-30 17:23 | XMS_ITS | Encounter Summary ---
Author Organization [facility] Address [address] [place] [address] Care Team Providers Care Pot Lining Supervisor Name Role Phone Monica Mulligan MD Primary Care Provider [phone] Encounter Details Date Type Department Care Team (Late st Contact Info) Description 01/03/2022 Lab Requisition [facility] [address] [place], [place] [phone] Outr Resulting Lab, Provider Social History Tobacco [...] Procedure Name Priority Date/Time Associated Diagnosis Comments LYME AB Routine 01/03/2022 9:13 EDT documented in this encounter Results * LYME AB (01/03/2022 9:13 EDT) Lyme Ab Negative Negative 01/04/2022 10:17 EDT [facility] Blood VENOUS BLOOD / Unknown 01/03/2022 9:13 EDT 01/03/2022 17:09 EDT Provider Outr Resulting Lab IMMUNOLOGY A ND SEROLOGY ORDERABLES [facility] [address] [place] [address] documented in this encounter Visit Diagnoses Not on filedocumented in this encounter Care Teams Pot Lining Supervisor Relationship Specialty Start Date End Date Monica Mulligan MD [address] [place] [phone] PCP - General 11/29/16 documented as of this encounter
--- OUTSIDE RECORDS SUMMARY | 2024-03-30 17:23 | XMS_ITS | Encounter Summary ---
Author Organization [facility] Address [address] [place] [address] Care Team Providers Care Recovery Coach Name Role Phone Monica Mulligan MD Primary Care Provider [phone] Encounter Details Date Type Department Care Team (Late st Contact Info) Description 02/18/2020 Lab Requisition [facility] Pathology & Laboratory Medicine - [facility] [address], [place] [id number] Outr Resulting Lab, Provider Social History Tobacco [...] Procedure Name Priority Date/Time Associated Diagnosis Comments HOLD SST Today 02/18/2020 13:47 EDT HEPATITIS C AB W REFLEX TO HCV RNA BY PCR Today 02/18/2020 13:47 EDT HEPATITIS B SURFACE ANTIBODY Today 02/18/2020 13:47 EDT HEPATITIS B SURFACE ANTIGEN Today 02/18/2020 13:47 EDT documented in this encounter Results * HOLD SST (02/18/2020 13:47 EDT) Hold Hold 02/18/2020 21:[address] [facility] Blood VENOUS BLOOD / Unknown 02/18/2020 13:47 EDT 02/18/2020 20:44 EDT Provider Outr Resulting Lab LAB INFO SER VICE AND SUPPORT & PHONE RESULT Performing Organization Address [facility]/ZIP Co de Phone Number [facility] [address] [place] [address] * HEPATITIS B SURFACE ANTIBODY (02/18/2020 13:47 EDT) Hep B Surface Ab, Quantitative <3.1 See Note mIU/mL 02/19/2020 11:[address] [facility] Comment: Reference Range for Hep B Surface Ab, Quant: Positive: >= 10.0 mIU/mL Negative: ??< 10.0 mIU/mL Patient is presumed to not be immune to infection with Hepatitis B Virus. Hep B Surface Ab, Qualitative Negative See Note 02/19/2020 11:[address] [facility] Comment: Reference Range for Hep B Surface Ab, Qual: Unvaccinated: ??Negative Vaccinated: ??Positive Blood VENOUS BLOOD / Unknown 02/18/2020 13:47 EDT 02/18/2020 20:44 EDT Provider Outr Resulting Lab CHEMISTRY & BLOOD GAS ORDERABLES Performing Organization Address [facility]/ZIP Co de Phone Number [facility] [address] [place] [id number] * HEPATITIS B SURFACE ANTIGEN (02/18/2020 13:47 EDT) Hep B Surface Ag Negative Negative 02/19/2020 11:[address] [facility] Blood VENOUS BLOOD / Unknown 02/18/2020 13:47 EDT 02/18/2020 20:44 EDT Provider Outr Resulting Lab CHEMISTRY & BLOOD GAS ORDERABLES Performing Organization Address [facility]/ZIP Co de Phone Number [facility] [address] [place] [address] * HEPATITIS C AB W REFLEX TO HCV RNA BY PCR (02/18/2020 13:47 EDT) Hep C Antibody Negative Negative 02/19/2020 11:[address] [facility] Blood VENOUS BLOOD / Unknown 02/18/2020 13:47 EDT 02/18/2020 20:44 EDT Provider Outr Resulting Lab CHEMISTRY & BLOOD GAS ORDERABLES [facility] [address] [place] [address] documented in this encounter Visit Diagnoses Not on filedocumented in this encounter Additional Health Concerns Infection Onset Date Last Indicated Resolved Time R/O COVID-19 02/20/2020 02/20/2020 02/25/2020 22:1 7 EDT documented as of this encounter Care Teams Recovery Coach Relationship Specialty Start Date End Date Monica Mulligan MD [address] [place] [phone] PCP - General 11/29/16 documented as of this encounter
--- OUTSIDE RECORDS SUMMARY | 2024-03-30 17:23 | XMS_ITS | Encounter Summary ---
Author Organization [facility] Address [address] [place] [address] Care Team Providers Care Airport Planner Name Role Phone Monica Mulligan MD Primary Care Provider [phone] Encounter Details Date Type Department Care Team (Late st Contact Info) Description 04/09/2020 Lab Requisition [facility] Pathology & Laboratory Medicine - [facility] [address] [place], [place] [id number] Outr Resulting Lab, Provider Social History Tobacco [...] Priority Date/Time Associated Diagnosis Comments ZZCOVID-19 TEST [facility] PCR Today 04/09/2020 12:55 EDT COVID-19 TESTING Routine 04/09/2020 12:5 5 EDT documented in this encounter Results * COVID-19 TEST [facility] PCR (04/09/2020 12:55 EDT) Swab ENTIRE NASOPHARYNX / Unknown 04/09/2020 12:55 EDT 04/09/2020 15:36 EDT Provider Outr Resulting Lab MICROBIOLOGY - GENERAL ORDERABLES [facility] [address] [place] [address] * COVID-19 TESTING (04/09/2020 12:55 EDT) COVID-19 rt-PCR Result Negative Negative 04/09/2020 19:41 EDT [facility] Comment: This test has not [...] history, and epidemiological information. Performed on the Trackwayher Fusion instrument Performing Lab [facility] 04/09/2020 19:41 EDT [facility] Swab 04/09/2020 12:5 5 EDT 04/09/2020 15:36 EDT Provider Outr Resulting Lab MICROBIOLOGY - GENERAL ORDERABLES [facility] [address] [place] [address] documented in this encounter Visit Diagnoses Not on filedocumented in this encounter Care Teams Airport Planner Relationship Specialty Start Date End Date Monica Mulligan MD [address] [place] [phone] PCP - General 11/29/16 documented as of this encounter
--- OUTSIDE RECORDS SUMMARY | 2024-03-30 17:23 | XMS_ITS | Encounter Summary ---
Author Organization [facility] Address [address] [place] [address] Care Team Providers Care Radiological Defense Officer Name Role Phone Unavailable Primary Care Provider Unavailabl e Encounter Details Date Type Department Care Team (Latest Contact Info) Description 11/25/2016 6:49 EDT - 11/25/2016 23:59 EDT Hospital Encounter [address] [address] Unknown, Provider, Discharge Disposition: Home or Self Care Social History Tobacco Use Types Packs/Day Years Used Date Smoking Tobacco: Never Assessed Sex and Gender Information Value Date Recorded Sex Assigned at Not on file Gender Identity Not on file Sexual Orientation Not on file documented as of this encounter Discharge Disposition Disposition Code Departure Means Destination Home or Self Prison documented in this encounter Plan of Treatment Not on file documented as of this encounter Visit Diagnoses Not on filedocumented in this encounter
--- OUTSIDE RECORDS SUMMARY | 2024-03-30 17:23 | XMS_ITS | Referral Summary ---
Author Organization [facility] Address [address] [place] [address] Care Team Providers Care Furniture Reproducer Name Role Phone Monica Mulligan MD Primary Care Provider [phone] Social History Tobacco Use Types Packs/Day Years Used Date Smoking Tobacco: Never Assessed Interpersonal Safety Answer Date Record ed Physically Hurt Never 03/23/2020 Verbally Threaten Not on file 03/23/2020 Sex and Gender Information Value Date Recorded Sex Assigned at Not on file Gender Identity Not on file Sexual Orientation Not on file Plan of Treatment Not on file Procedures Procedure Name Priority Date/Time Associated Diagnosis Comments HEPATITIS C AB W REFLEX TO HCV RNA BY PCR Today 02/18/2020 13:47 EDT from Last 3 Months or Most Recently Relevant to Health Maintenance Results * HEPATITIS C AB W REFLEX TO HCV RNA BY PCR (02/18/2020 13:47 EDT) Hep C Antibody Negative Negative 02/19/2020 11:53 EDT [facility] Blood VENOUS BLOOD / Unknown 02/18/2020 13:47 EDT 02/18/2020 20:44 EDT Provider Outr Resulting Lab CHEMISTRY & BLOOD GAS ORDERABLES [facility] [address] [place] [address] from Last 3 Months or Most Recently Relevant to Health Maintenance Care Teams Furniture Reproducer Relationship Specialty Start Date End Date Monica Mulligan MD [address] [facility] [address] [place] [phone] PCP - General 11/29/16
--- OUTSIDE RECORDS SUMMARY | 2024-03-30 17:23 | XMS_ITS | Encounter Summary ---
Author Organization [facility] Address [address] [place] [address] Care Team Providers Care Banquet Chef Name Role Phone Monica Mulligan MD Primary Care Provider [phone] Encounter Details Date Type Department Care Team (Late st Contact Info) Description 07/27/2021 Lab Requisition [facility] Pathology & Laboratory Medicine - [facility] [address] [place] [address] Bao Sharpe Jr., MD [address] [place] [phone] Encounter for other general examination Social History Tobacco Use Types Packs/Day Years [...] Priority Date/Time Associated Diagnosis Comments SURGICAL PATHOLOGY Today 07/27/2021 10 :20 EST Encounter for other general examination documented in this encounter Results * SURGICAL PATHOLOGY (07/27/2021 10:20 EST) Note to Patient The following pathology results have been interpreted by your pathologist and may be available to you before your health provider has had the opportunity to review them. Please allow time for your provider to receive these results and explore management options, if applicable. 08/04/2021 9:08 EST [facility] Final Diagnosis A. BONE, RIGHT FEMORAL HEAD, RESECTION: - Femoral head with osteoarthritis. 08/04/2021 9:08 [facility] Attestation There was significant resident/fellow involvement in the diagnostic evaluation of this case. By the signature below, the attending physician certifies that they have personally conducted a gross and/or microscopic examination of the described specimens and rendered or confirmed the above diagnosis. 08/04/2021 9:08 [facility] at 0908 Clinical History Encounter for other general examination; avascular necrosis of (R) femoral head 08/04/2021 9:08 [facility] Gross Description A. Received in formalin labelled with proper patient identification (initials S, C) and right femoral head is a femoral head (4.5 x 4.5 x 4.2 cm), with attached portion of femoral neck (0.5 cm in length x 1.6 cm in diameter). There is minimal attached fibrous soft tissue. The resection margin is smooth. The articular surface is harper-piedra and diffusely granular. The periphery surrounding the resection margin has mild osteophyte formation. Sectioning reveals a harper-yellow firm trabecular surface. The articular cartilage ranges averages 0.1 cm in thickness. Supervisor Yard sections are submitted for acid decalcification as follows: BLOCK HOLDEN A1-A2- Five veterans employment representative sections including neck and articular surface [facility]) 07/28/2021 10:12 08/04/2021 9:08 [facility] Resident/Arturo w: Manolo Portillo MD 08/04/2021 9:08 [facility] Performing Lab [facility] 9:08 [facility] Scanned Images 08/04/2021 9:08 [facility] Tissue SPECIMEN FROM BONE / Unknown 07/27/2021 10:20 EST 07/27/2021 22:10 EST Bao Sharpe Jr., MD PATHOLO GY ORDERABLES [facility] [address] [place] [address] documented in this encounter Visit Diagnoses Diagnosis Encounter for other general examination documented in this encounter Care Teams Banquet Chef Relationship Specialty Start Date End Date Monica Mulligan MD [address] [place] [phone] PCP - General 11/29/16 documented as of this encounter
--- NOTE | 2024-03-30 17:33 | ED.GENADUL_ITS ---
Discharge Plan Disposition Patient Disposition: Home Condition: Improving Discharge Details Chief Complaint: Abd Prob Clinical Impression: Pancreatitis Primary Care Provider: OWEN GARRISON ED Provider: Rip Clayton Home Meds and New Rx's Prescriptions: No Action No Known Home Meds Discharge Instructions Instructions: Pancreatitis (DC) Additional Instructions: Please follow-up with your primary care physician HPI General Date/Time Provider Initiated Documentation: 03/30/24 16:57 . HPI Narrative: 49-year-old male history of alcohol abuse, prior pancreatitis presents epigastric abdominal discomfort nausea vomiting over the last several hours. Related Data Home Medications ?Medication ?Instructions ?Recorded ?Confirmed Unknown [No Known Home Meds] 02/28/24 03/30/24 Allergies Allergy/AdvReac Type Severity Reaction Status Date / Time No Known Allergies Allergy Unverified 02/22/24 03:34 General Stated Complaint: Abd Prob SARAH: 3 Exam Narrative Exam Narrative: Alert interactive Drying of oromucosa No respiratory distress speaking full sentences Tender abdomen with involuntary guarding in the epigastrium mildly distended Dry skin no peripheral edema Alert following commands moving all extremities Course Vital Signs Vital signs: Vital Signs Temperature 36.4 C L 03/30/24 16:45 Pulse 85 03/30/24 16:45 Respiratory Rate 18 03/30/24 16:45 Blood Pressure 141/81 H 03/30/24 16:45 Pulse Oximetry 100 03/30/24 16:45 Temperature 36.4 C L 03/30/24 16:45 Temperature Source Temporal Artery Scan 03/30/24 16:45 Pulse 85 03/30/24 17:07 Respiratory Rate 12 03/30/24 17:07 Respiratory Effort Normal, Non-Labored 03/30/24 17:07 Blood Pressure 141/81 H 03/30/24 16:45 Pulse Oximetry 94 03/30/24 17:07 Oxygen Delivery Method Room Air 03/30/24 17:07 Pain Level 8 03/30/24 17:07 Lab/Test Results Lab/Test Results: Laboratory Tests Range/Units 03/30/24 17:10 WBC (4.4-10.8) 10^3/uL 5.30 RBC (4.36-5.78) 10^6/uL 3.50 L Hgb (13.5-17.5) g/dL 12.7 L Hct (40.0-50.0) % 34.7 L MCV (80-95) fL 99 H MCH (27.0-33.0) pg 36.3 H MCHC (32.0-36.0) % 36.6 H RDW (11.8-14.1) % 13.2 Plt Count (130-400) 10^3/uL 135 MPV (8.0-11.0) fL 9.2 Immature Gran % % 0.6 Neutrophils % % 54.6 Lymphocytes % % 29.6 Monocytes % % 12.8 Eosinophils % % 1.3 Basophils % % 1.1 Nucleated RBC % (0.0-0.3) % 0.4 H Absolute Neutrophils (1.2-6.7) 10^3/uL 2.89 Absolute Lymphocytes (1.2-3.4) 10^3/uL 1.57 Absolute Monocytes (0.1-0.8) 10^3/uL 0.68 Absolute Eosinophils (0.0-0.7) 10^3/uL 0.07 Absolute Basophils (0.0-0.2) 10^3/uL 0.06 Medical Decision Making 49-year-old male history of alcohol abuse prior pancreatitis presents with epigastric discomfort guarding on examination in the epigastrium mild distention, 1 episode of hypotension in the field, normotensive here nontachycardic not hypoxic alert oriented following commands, dry oral mucosa and dry skin, high clinical suspicion for pancreatitis versus gastritis versus duodenitis lower suspicion for enterocolitis appendicitis or cholecystitis. Will provide fluids analgesia antiemetics, CT abdomen pelvis, disposition pending reassessment and image 10: 23 evidence of pancreatitis. Patient much more comfortable after fluids and meds. No vomiting. Nonperitoneal. Offered patient Librium taper but patient endorses that he wants to continue drinking. He would like to go home. Given home care instructions and return precautions Quality:SDOH Health Related Social Needs: Health related social needs food insecurity, transpo i nsecurity Health related social needs details Has mold in his ap artment, would be interested in corporate legal assistant resources for tenant rights [facility] All Active Problems (Updated 03/30/24 @ 20:24 by Rip Clayton MD) Pancreatitis (Chronic) Hypokalemia (Acute) Alcohol withdrawal (Acute) Fever (Acute) Nicotine addiction (Acute) Gastroenteritis (Acute) Gastritis (Acute) Alcoholic pancreatitis (Acute) Trochanteric bursitis, right hip (Acute) Avascular necrosis of bone of left hip (Acute) Chest pain (Acute) due to ETOH Hepatic steatosis (Acute) COVID-19 ruled out (Acute) Tobacco abuse (Acute) Impairment of balance (Acute) Chronic vertigo (Acute) Electrolyte and fluid disorder (Acute) Medical History On deep vein thrombosis (DVT) prophylaxis Surgical History 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) Cyst of right upper eyelid Family History Maternal Grandfather Alcohol abuse Maternal Uncle Alcohol abuse Social History Smoking/Tobacco Use Status: Current every day Tobacco Type: cigarettes Years smoked: 25 Smoking risk assessment performed?: Yes Alcohol Intake: current Alcohol Intake frequency: 3 or more drinks per day Alcohol type: beer and hard liquor Details: last drink was 2 weeks ago Drug use: Never Substance use type: does not use Housing: 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 PAWSS Have you Been Recently Intoxicated or Drunk Within the Last 30 days?: Yes Have you Ever Experienced Previous Episodes of Alcohol Withdrawal?: Yes Have you ever Experienced Withdrawal Seizures?: Yes Have you ever Experienced Delirium Tremens(DT)s?: Yes Have you ever undergone Alcohol Rehabilitation Treatment (i.e, inpt ot outpat ient treatment programs)?: Yes Have you ever Experienced Blackouts?: Yes Have you ever Combined Alcohol with other Downers within the last 90 days?: Yes Have you ever Combined Alcohol with any other Substance of Abuse during the last 90 days?: Yes Positive Blood Alcohol level on Presentation? [PCS.BAL]: Yes Evidence of Increased Autonomic Activity (i.e. HR>120, tremor, sweating, agitation, nausea)?: No Result: 9
[2024-03-30 17:34] LABS: INR 1.2 (0.9-1.1); PTT Activated 26.3 sec (23.6-32.8); Prothrombin Time 12.3 sec (9.1-11.1)
[2024-03-30] MEDS: Normal Saline 1,000 ML 1000 ML IV (17:40)
[2024-03-30] MEDS: Ondansetron 4 MG/2 ML VIAL IVP (17:41)
[2024-03-30] MEDS: MORPHine 4 MG/ML SYR 2 MG IVP (17:41)
[2024-03-30 17:45] LABS: ALT 22 U/L (16-63); AST 46 U/L (15-37); Albumin 3.2 g/dL (3.4-5.0); Alkaline Phosphatase 63 U/L (46-116); Anion Gap 10.7 mmol/L (3-11); BUN 4 mg/dL (7-18); Bilirubin, Total 0.59 mg/dL (0.2-1.0); CO2 26.3 mmol/L (21.0-32.0); CREATININE 0.6 mg/dL (0.70-1.30); Calcium 8.1 mg/dL (8.5-10.1); Chloride 99 mmol/L (98-107); Estimated GFR 119.07 (mL/min/1.73m2); Lipase 159 U/L (16-77); Magnesium 1.3 mg/dL (1.8-2.4); NT-proBNP 17 pg/mL (<300); Sodium 136 mmol/L (136-145); Total Protein 6.9 g/dL (6.4-8.2); Troponin I < 50 ng/L (< or =60)
[2024-03-30 17:46] LABS: ETHANOL BLOOD 319.4 mg/dL (<10)
[2024-03-30 17:48] LABS: Potassium 2.9 mmol/L (3.5-5.1)
[2024-03-30 17:51] LABS: Glucose 126 mg/dL (74-106)
[2024-03-30] MEDS: Omnipaque 350 MG/ML 100 ML BTL IJ (18:19)
[2024-03-30] MEDS: Normal Saline - Diluent 50 ML VIAL IJ (18:20)
[2024-03-30] MEDS: MAGNESIUM SULFATE 1 GM/100 ML BAG IVINF (18:27)
[2024-03-30 18:42] LABS: Bilirubin Negative (Negative); Blood Negative (Negative); Clarity Clear (Clear); Glucose Negative (Negative); Ketones Negative (Negative); Leukocyte Esterase Negative (Negative); Nitrite Negative (Negative); Specific Gravity 1.015 (1.005-1.025); Urobilinogen 0.2 mg/dL (Up to 0.2)
[2024-03-30] MEDS: POTASSIUM CHLORIDE 10 MEQ/100 ML BAG 100 MEQ IVINF (19:24)
== END 2024-03-30 20:24 | disposition home or self-care (01) ==
PROVIDERS: Emergency Provider Emergency Medicine; PCP Nurse Practitioner Family
DX: R11.2 Nausea with vomiting, unspecified (principal); R42 Dizziness and giddiness; R07.89 Other chest pain; K85.90 Acute pancreatitis without necrosis or infection, unspecified; F10.10 Alcohol abuse, uncomplicated; Z59.41 Food insecurity; Z59.82 Transportation insecurity
CPT/HCPCS: 36415; 80053; 83690; 93005; 96374; 96375; 99285; 71046; 74177; 80320; 81003; 83735; 83880; 84484; 85025; 85610; 85730; 93010; 99283; J2270; J2405; J3475; J3480; J3490

== ENCOUNTER 2024-04-18 18:48 | Emergency (ER) | payer MEDICAID, SELFPAY ==
[2024-04-18] VITALS (52 sets, daily range): BP systolic 101–137; BP diastolic 64–94; PULSE 71–111; RESP 13–24; TEMP 36.2; O2SAT 93–99
--- NOTE | 2024-04-18 18:45 | DI.RAD_ITS ---
Exam(s) XR CHEST 2V PA LATERAL EXAM: XR CHEST 2V PA LATERAL CLINICAL HISTORY: chest pain. TECHNIQUE: 2D digital imaging was performed. COMPARISON: CR XR CHEST 2V PA LATERAL from 03/30/2024 FINDINGS: 2 views: Heart size is normal. The mediastinum is not widened. Lungs are clear. No infiltrates nor pleural effusions. IMPRESSION: No acute pulmonary findings. DATA REPOSITORY: RADIATION DOSE DELIVERED:
--- NOTE | 2024-04-18 18:45 | RT.EKG_ITS ---
APPROVED REPORT Exam: Resting ECG Reason for Exam: chest pain Patient Location: E HR:83 bpm ECG Measurements Heart Rate [address] 193 P 19 QRSd 97 QRS 35 QT 369 T 57 QTc 435 Conclusion Sinus rhythm 83 normal axis no stemi
[2024-04-18 19:03] LABS: Abs Immature Grans 0.02 10^3/uL (0.0-0.06); Absolute Basophil Count 0.06 10^3/uL (0.0-0.2); Absolute Eosinophil Count 0.07 10^3/uL (0.0-0.7); Absolute Lymphocyte Count 3.13 10^3/uL (1.2-3.4); Absolute Monocyte Count 0.89 10^3/uL (0.1-0.8); Basophils % 0.8 %; HCT 42.1 % (40.0-50.0); HGB 14.7 g/dL (13.5-17.5); Immature Grans % 0.3 %; Lymphocytes % 43.7 %; MCH 35.7 pg (27.0-33.0); MCHC 34.9 % (32.0-36.0); MCV 102 fL (80-95); MPV 9.4 fL (8.0-11.0); Monocytes % 12.4 %; Neutrophils % 41.8 %; Platelet Count 205 10^3/uL (130-400); RBC 4.12 10^6/uL (4.36-5.78); RDW 13.9 % (11.8-14.1); RDW-SD 52.8 fL; WBC 7.17 10^3/uL (4.4-10.8)
--- NOTE | 2024-04-18 19:14 | ED.GENADUL_ITS ---
Discharge Plan Disposition Patient Disposition: Home Discharge Details Clinical Impression: Hypokalemia, Gastritis Primary Care Provider: OWEN GARRISON ED Provider: Valery Padilla Home Meds and New Rx's Prescriptions: No Action No Known Home Meds Discharge Instructions Instructions: Hypokalemia Additional Instructions: Please call your primary care provider first thing in the morning to schedule follow-up appointment in the next week. You should have labs rechecked at that time. I encourage you to abstain from alcohol, as it is a significant trigger for your pancreatitis and gastritis. Please drink clear fluids for the next day or so, advancing diet slowly as tolerated. Your potassium was very low today. Please increase your consumption of potassium rich foods like oranges, bananas, and potatoes. Return to emergency care if you develop any chest pain, difficulty breathing, uncontrollable vomiting, severe belly pain, or if you are very worried and need to be rechecked again immediately. Referrals: OWEN GARRISON, SENIOR SOFTWARE ENGINEERING MANAGER [Primary Care Provider] - HPI General Date/Time Provider Initiated Documentation: 04/18/24 18:52 . HPI Narrative: Paul is a 49-year-old male with history of alcoholic pancreatitis who presents to the emergency department today for evaluation of sternal chest pain since last night around 10 PM. He reports this is consistent with previous episodes of pancreatitis. He admits that he had been abstaining for alcohol for 3 days, started drinking again yesterday. Today he had 5 white claws. He reports associated nausea/vomiting. Denies fever/chills, shortness of breath, cough, congestion, blood in emesis, change in bladder function, pedal edema, blood in daily episodes of diarrhea, syncope. He admits to tobacco use as well. Physical exam remarkable for tenderness to palpation of left upper quadrant. Abdomen is soft, nondistended, normoactive bowel sounds. No obvious ecchymosis. Easy work of breathing, lung sounds clear bilaterally. Normal heart sounds. Moist mucous membranes. No pedal edema. DDx includes but is not limited to: Pancreatitis, complication of pancreatitis such as abscess, dehydration, ACS, esophagitis, gastritis I independently interpreted the following tests: CBC reassuring. CMP notable for significant hypokalemia, 2.9. Lipase elevated at 158, however this is lower than previous episodes of abdominal pain. Troponins negative. MAITE for 13.7. UA reassuring, not consistent with UTI. While in the emergency department Paul received IV fluids, Zofran for nausea, thiamine and folate replenishment, and famotidine with good improvement in discomfort, rated only 2 out of 10 at this time. He does report that he has chronic abdominal pain and this has been ongoing since recent admission to hospital with pancreatitis potassium p.o. and IV given with good improvement hypokalemia, potassium on repeat 4.4. CT abdomen/pelvis reassuring, no findings consistent with pancreatitis. Nonspecific bladder thickening noted in the absence of cystitis. Overall workup today very reassuring. Likely gastritis due to alcohol consumption, as lipase and CT reassuring. Patient was able to tolerate p.o. fluids without any difficulty. After rest, patient is alert and oriented with clear speech, does not appear clinically intoxicated. He does have a ride to take him home. Recommend continued rehydration at home and advancing diet slowly as tolerated with close PCP follow-up for reassessment and labs. He voices agreement with plan of care. Related Data Home Medications ?Medication ?Instructions ?Recorded ?Confirmed Unknown [No Known Home Meds] 02/28/24 04/18/24 Allergies Allergy/AdvReac Type Severity Reaction Status Date / Time hydromorphone (From Dilaudid) AdvReac Intermediate Other (See Verified 04/18/24 18:53 Comment) General Stated Complaint: GenMedical SARAH: 3 Review of Systems Narrative: see HPI Exam Const General: cooperative, intoxicated appearing and well hydrated Nutritional Appearance: average body habitus Resp Effort & Inspection: normal respiratory effort and able to speak in complete sentences Auscultation: clear to auscultation bilaterally Cardio Jugular venous pressure: no JVD Rate: regular rate Rhythm: regular rhythm GI Inspection: normal to inspection and non-distended Palpation: soft, no guarding and tender in the LUQ Auscultation: normal bowel sounds Extrem General: full ROM and no pedal edema Course Vital Signs Vital signs: Vital Signs Temperature 36.2 C L 04/18/24 18:49 Pulse 93 H 04/18/24 18:49 Respiratory Rate 18 04/18/24 18:49 Blood Pressure 137/94 H 04/18/24 18:49 Pulse Oximetry 98 04/18/24 18:49 Temperature 36.2 C L 04/18/24 18:49 Pulse 93 H 04/18/24 18:49 Respiratory Rate 18 04/18/24 18:49 Blood Pressure 137/94 H 04/18/24 18:49 Pulse Oximetry 98 04/18/24 18:49 Oxygen Delivery Method Room Air 04/18/24 18:49 Oxygen Flow Rate 0 04/18/24 18:49 Pain Level 5 04/18/24 18:49 Lab/Test Results Lab/Test Results: Laboratory Tests Range/Units 04/18/24 18:49 WBC (4.4-10.8) 10^3/uL 7.17 RBC (4.36-5.78) 10^6/uL 4.12 L Hgb (13.5-17.5) g/dL 14.7 Hct (40.0-50.0) % 42.1 MCV (80-95) fL 102 H MCH (27.0-33.0) pg 35.7 H MCHC (32.0-36.0) % 34.9 RDW (11.8-14.1) % 13.9 Plt Count (130-400) 10^3/uL 205 MPV (8.0-11.0) fL 9.4 Immature Gran % % 0.3 Neutrophils % % 41.8 Lymphocytes % % 43.7 Monocytes % % 12.4 Eosinophils % % 1.0 Basophils % % 0.8 Nucleated RBC % (0.0-0.3) % 0.0 Absolute Neutrophils (1.2-6.7) 10^3/uL 3.00 Absolute Lymphocytes (1.2-3.4) 10^3/uL 3.13 Absolute Monocytes (0.1-0.8) 10^3/uL 0.89 H Absolute Eosinophils (0.0-0.7) 10^3/uL 0.07 Absolute Basophils (0.0-0.2) 10^3/uL 0.06 Medical Decision Making Imaging Data Radiologic Study: Radiologist's impression: Exam: CT Abdomen And Pelvis With Contrast Exam date and time: 04/18/2024 8:42 PM Age: 49 years old Clinical indication: Abdominal pain; Other: Pancreatitis, luq pain TECHNIQUE: Imaging protocol: Computed tomography of the abdomen and pelvis with contrast. Total images: 3648 Contrast material: OMNI 350; Contrast volume: 100 ml; Contrast route: I NTRAVENOUS (IV); COMPARISON: CT ABDOMEN PELVIS W 03/30/2024 6:01 PM FINDINGS: Esophagus: Stable distal esophageal wall thickening consistent with reflux esophagitis. Liver: Significant hepatic steatosis. Gallbladder and biliary ducts: No definite gallbladder wall thickening, gallstone or biliary dilatation. Pancreas: No mass or peripancreatic stranding. Stable punctate pancreatic head calcification. Spleen: No splenomegaly or splenic nodule. Adrenal glands: No adrenal nodule. Kidneys and ureters: 1 cm left upper pole renal cyst. No hydronephrosis or renal calculi. Stomach and bowel: No definite gastric or duodenal wall thickening. No small or large bowel dilatation. No definite bowel wall thickening. Appendix: No evidence of appendicitis. Intraperitoneal space: No free air or free fluid. Vasculature: No abdominal aortic aneurysm. Lymph nodes: No significant adenopathy. Urinary bladder: Diffuse smooth bladder wall thickening. Reproductive: No significant finding. Bones/joints: Total right hip replacement. Left femoral head AVN. Soft tissues: No significant finding, IMPRESSION: 1. No acute intra-abdominal finding/pancreatitis. 2. Nonspecific bladder thickening including possibility of cystitis. Quality:SDOH Health Related Social Needs: Health related social needs food insecurity, transpo i nsecurity Health related social needs details Has mold in his ap artment, would be interested in legal department manager resources for tenant rights [facility] Active Problems (Updated 04/18/24 @ 23:10 by Valery Obrien) Hypokalemia (Acute) Pancreatitis (Chronic) Alcohol withdrawal (Acute) Fever (Acute) Nicotine addiction (Acute) Gastroenteritis (Acute) Gastritis (Acute) Alcoholic pancreatitis (Acute) Trochanteric bursitis, right hip (Acute) Avascular necrosis of bone of left hip (Acute) Chest pain (Acute) due to ETOH Hepatic steatosis (Acute) COVID-19 ruled out (Acute) Tobacco abuse (Acute) Impairment of balance (Acute) Chronic vertigo (Acute) Electrolyte and fluid disorder (Acute) Medical History On deep vein thrombosis (DVT) prophylaxis Surgical History 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) Cyst of right upper eyelid Family History Maternal Grandfather Alcohol abuse Maternal Uncle Alcohol abuse Social History Smoking/Tobacco Use Status: Current every day Tobacco Type: cigarettes Years smoked: 25 Smoking risk assessment performed?: Yes Alcohol Intake: current Alcohol Intake frequency: 3 or more drinks per day Alcohol type: beer and hard liquor Details: last drink was 2 weeks ago Drug use: Never Substance use type: does not use Housing: 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
[2024-04-18 19:22] LABS: ETHANOL BLOOD 413.7 mg/dL (<10)
--- OUTSIDE RECORDS SUMMARY | 2024-04-18 19:23 | XMS_ITS | Encounter Summary ---
Author Organization [facility] Address [address] [place] [address] Care Team Providers Care Proof Technician Name Role Phone Unavailable Primary Care Provider Unavailabl e Encounter Details Date Type Department Care Team (Latest Contact Info) Description 11/25/2016 6:49 EDT - 11/25/2016 23:59 EDT Hospital Encounter [address] [address] Unknown, Provider, Discharge Disposition: Home or Self Care Social History Tobacco Use Types Packs/Day Years Used Date Smoking Tobacco: Never Assessed Sex and Gender Information Value Date Recorded Sex Assigned at Not on file Gender Identity Not on file Sexual Orientation Not on file documented as of this encounter Discharge Disposition Disposition Code Departure Means Destination Home or Self Snf documented in this encounter Plan of Treatment Not on file documented as of this encounter Visit Diagnoses Not on filedocumented in this encounter
--- OUTSIDE RECORDS SUMMARY | 2024-04-18 19:23 | XMS_ITS | Encounter Summary ---
Author Organization [facility] Address [address] [place] [address] Care Team Providers Care Manual Tester Name Role Phone Unknown, Provider Primary Care Provider [phone] Encounter Details Date Type Department Care Team (Late st Contact Info) Description 11/25/2016 Results Only [facility] [phone] Jackie Marin, DO [address] [place] [address] Social History Tobacco Use Types [...] Name: ? PARSONPAUL ? Accession #: ? [id number] ? : ? 1975 (Age: 41) ??M [...] cyst is filled with laminated orthokeratin. ??(Dr. Dumont)/[facility] Document reviewed and electronically signed by: MARIA [...] Camilo 11/26/2016 9:58 AM End of Report [facility] 11/25/2016 5:50 EDT 11/26/2016 5:50 EDT Jackie Marin DO PATHOLOGY ORDERABLES [facility] [address] [place] [address] documented in this encounter Visit Diagnoses Not on filedocumented in this encounter Care Teams Manual Tester Relationship Specialty Start Date End Date Unknown, Provider, PCP - General 11/26/16 11/28/16 documented as of this encounter
--- OUTSIDE RECORDS SUMMARY | 2024-04-18 19:23 | XMS_ITS | Encounter Summary ---
Author Organization [facility] Address [address] [place] [address] Care Team Providers Care Wood Products Manufacturer Name Role Phone Monica Mulligan MD Primary Care Provider [phone] Encounter Details Date Type Department Care Team (Late st Contact Info) Description 01/03/2022 Lab Requisition [facility] Pathology & Laboratory Medicine - [facility] [address] [place], [place] [id number] Outr Resulting Lab, Provider Social History Tobacco [...] Lyme Ab Negative Negative 01/04/2022 10:17 EDT [facility] Blood VENOUS BLOOD / Unknown 01/03/2022 9:13 EDT 01/03/2022 17:09 EDT Provider Outr Resulting Lab IMMUNOLOGY A ND SEROLOGY ORDERABLES [facility] [address] [place] [address] documented in this encounter Visit Diagnoses Not on filedocumented in this encounter Care Teams Wood Products Manufacturer Relationship Specialty Start Date End Date Monica Mulligan MD [address] [place] [phone] PCP - General 11/29/16 documented as of this encounter
--- OUTSIDE RECORDS SUMMARY | 2024-04-18 19:23 | XMS_ITS | Referral Summary ---
Author Organization [facility] Address [address] [place] [address] Care Team Providers Care Ditch Digger Name Role Phone Monica Mulligan MD Primary Care Provider [phone] Social History Tobacco Use Types Packs/Day Years [...] C Antibody Negative Negative 02/19/2020 11:53 EDT [facility] Blood VENOUS BLOOD / Unknown 02/18/2020 13:47 EDT 02/18/2020 20:44 EDT Provider Outr Resulting Lab CHEMISTRY & BLOOD GAS ORDERABLES [facility] [address] [place] [address] from Last 3 Months or Most Recently Relevant to Health Maintenance Care Teams Ditch Digger Relationship Specialty Start Date End Date Monica Mulligan MD [address] [facility] [address] [place] [phone] PCP - General 11/29/16
--- OUTSIDE RECORDS SUMMARY | 2024-04-18 19:23 | XMS_ITS | Encounter Summary ---
Author Organization [facility] Address [address] [place] [address] Care Team Providers Care Supervisor Steel Division Name Role Phone Monica Mulligan MD Primary Care Provider Encounter Details Date Type Department Care Team (Late st Contact Info) Description 07/27/2021 Lab Requisition [facility] Pathology & Laboratory Medicine - [facility] [address] [place] [address] Bao Sharpe Jr., MD [address] [place] [address] Encounter for other general examination [...] management options, if applicable. 08/04/2021 9:08 EST [facility] Final Diagnosis A. BONE, RIGHT FEMORAL HEAD, RESECTION: - Femoral head with osteoarthritis. 08/04/2021 9:08 [facility] Attestation There was significant resident/fellow involvement in the diagnostic evaluation of this case. By the signature below, the attending physician certifies that they have personally conducted a gross and/or microscopic examination of the described specimens and rendered or confirmed the above diagnosis. 08/04/2021 9:08 [facility] at 0908 Clinical History Encounter for other general examination; avascular necrosis of (R) femoral head 08/04/2021 9:08 [facility] Gross Description A. Received in [...] cartilage ranges averages 0.1 cm in thickness. Social Media Intern sections are submitted for acid decalcification as follows: BLOCK HOLDEN A1-A2- Five human resources hr representative sections including neck and articular surface ELSY DEMPSEY([facility]) 07/28/2021 10:12 08/04/2021 9:08 [facility] Resident/Arturo w: Manolo Portillo MD 08/04/2021 9:08 [facility] Performing Lab [facility] 9:08 [facility] Scanned Images 08/04/2021 9:08 [facility] Tissue SPECIMEN FROM BONE / Unknown 07/27/2021 10:20 EST 07/27/2021 22:10 EST Bao Sharpe Jr., MD PATHOLO GY ORDERABLES [facility] [address] [place] [address] documented in this encounter Visit Diagnoses Diagnosis Encounter for other general examination documented in this encounter Care Teams Supervisor Steel Division Relationship Specialty Start Date End Date Monica Mulligan MD [address] [place] [phone] PCP - General 11/29/16 documented as of this encounter
--- OUTSIDE RECORDS SUMMARY | 2024-04-18 19:23 | XMS_ITS | Encounter Summary ---
Author Organization [facility] Address [address] [place] [address] Care Team Providers Care Inspector Casing Name Role Phone Monica Mullgian MD Primary Care Provider [phone] Encounter Details Date Type Department Care Team (Late st Contact Info) Description 04/09/2020 Lab Requisition [facility] Pathology & Laboratory Medicine - [facility] [address] [place], [place] [address] Outr Resulting Lab, Provider Social History Tobacco [...] Outr Resulting Lab MICROBIOLOGY - GENERAL ORDERABLES [facility] [address] [place] [address] * COVID-19 TESTING (04/09/2020 12:55 EDT) COVID-19 rt-PCR Result Negative Negative 04/09/2020 19:41 EDT [facility] Comment: This test has [...] history, and epidemiological information. Performed on the [employer] Fusion instrument Performing Lab [place] [facility] 04/09/2020 19:41 EDT [facility] Swab 04/09/2020 12:5 5 EDT 04/09/2020 15:36 EDT Provider Outr Resulting Lab MICROBIOLOGY - GENERAL ORDERABLES [facility] [address] [place] [address] documented in this encounter Visit Diagnoses Not on filedocumented in this encounter Care Teams Inspector Casing Relationship Specialty Start Date End Date Monica Mulligan MD [address] [place] [phone] PCP - General 11/29/16 documented as of this encounter
--- OUTSIDE RECORDS SUMMARY | 2024-04-18 19:23 | XMS_ITS | Clinical Summary ---
Author Organization [facility] Address [address] [place] [address] Care Team Providers Care Sound Recording Technician Name Role Phone Monica Mulligan MD Primary Care Provider [phone] Social History Tobacco Use Types Packs/Day Years [...] Negative Negative 02/19/2020 11:53 EDT [facility] Blood VENOUS BLOOD / Unknown 02/18/2020 13:47 EDT 02/18/2020 20:44 EDT Provider Outr Resulting Lab CHEMISTRY & BLOOD GAS ORDERABLES [facility] [address] [place] [address] from Last 3 Months or Most Recently Relevant to Health Maintenance Care Teams Sound Recording Technician Relationship Specialty Start Date End Date Monica Mulligan MD [address] [place] [address] [address] [place] [phone] PCP - General 11/29/16
--- OUTSIDE RECORDS SUMMARY | 2024-04-18 19:23 | XMS_ITS | Encounter Summary ---
Author Organization [facility] Address [address] [place] [address] Care Team Providers Care Rag Cutting Machine Feeder Name Role Phone Monica Mulligan MD Primary Care Provider Encounter Details Date Type Department Care Team (Late st Contact Info) Description 02/18/[address] [facility] Pathology & Laboratory Medicine - [facility] [address] [place], [place] [address] Outr Resulting Lab, Provider Social History Tobacco [...] 13:47 EDT) Hold Hold 02/18/2020 21:45 EDT [facility] Blood VENOUS BLOOD / Unknown 02/18/2020 13:47 EDT 02/18/2020 20:44 EDT Provider Outr Resulting Lab LAB INFO SER VICE AND SUPPORT & PHONE RESULT Performing Organization Address [facility]/ZIP Co de Phone Number [facility] [address] [place] [address] * HEPATITIS B SURFACE ANTIBODY (02/18/2020 13:47 EDT) Hep B Surface Ab, Quantitative <3.1 See Note mIU/mL 02/19/2020 11:14 EDT [facility] Comment: Reference Range for Hep B Surface Ab, Quant: Positive: >= 10.0 mIU/mL Negative: ??< 10.0 mIU/mL Patient is presumed to not be immune to infection with Hepatitis B Virus. Hep B Surface Ab, Qualitative Negative See Note 02/19/2020 11:14 EDT [facility] Comment: Reference Range for Hep B Surface Ab, Qual: Unvaccinated: ??Negative Vaccinated: ??Positive Blood VENOUS BLOOD / Unknown 02/18/2020 13:47 EDT 02/18/2020 20:44 EDT Provider Outr Resulting Lab CHEMISTRY & BLOOD GAS ORDERABLES Performing Organization Address [facility]/ZIP Co de Phone Number [facility] [address] [place] [phone] * HEPATITIS B SURFACE ANTIGEN (02/18/2020 13:47 EDT) Hep B Surface Ag Negative Negative 02/19/2020 11:12 EDT [facility] Blood VENOUS BLOOD / Unknown 02/18/2020 13:47 EDT 02/18/2020 20:44 EDT Provider Outr Resulting Lab CHEMISTRY & BLOOD GAS ORDERABLES Performing Organization Address [facility]/ZIP Co de Phone Number [facility] [address] [place] [address] * HEPATITIS C AB W REFLEX TO HCV RNA BY PCR (02/18/2020 13:47 EDT) Hep C Antibody Negative Negative 02/19/2020 11:53 EDT [facility] Blood VENOUS BLOOD / Unknown 02/18/2020 13:47 EDT 02/18/2020 20:44 EDT Provider Outr Resulting Lab CHEMISTRY & BLOOD GAS ORDERABLES [facility] [address] [place] [address] documented in this encounter Visit Diagnoses Not on filedocumented in this encounter Additional Health Concerns Infection Onset Date Last Indicated Resolved Time R/O COVID-19 02/20/2020 02/20/2020 02/25/2020 22:1 7 EDT documented as of this encounter Care Teams Rag Cutting Machine Feeder Relationship Specialty Start Date End Date Monica Mulligan MD [address] [place] [phone] PCP - General 11/29/16 documented as of this encounter
--- OUTSIDE RECORDS SUMMARY | 2024-04-18 19:23 | XMS_ITS | Encounter Summary ---
Author Organization [facility] Address [address] [place] [address] Care Team Providers Care Hogshead Hooper Name Role Phone Monica Mulligan MD Primary Care Provider [phone] Encounter Details Date Type Department Care Team (Late st Contact Info) Description 02/20/2020 Lab Requisition [facility] Pathology & Laboratory Medicine - [facility] [address] [place], [place] [address] Outr Resulting Lab, Provider Social History Tobacco [...] Outr Resulting Lab MICROBIOLOGY - GENERAL ORDERABLES [facility] [address] [place] [address] * COVID-19 TESTING (02/20/2020 22:10 EDT) COVID-19 rt-PCR Result Negative Negative 02/21/2020 12:[address] [facility] Comment: This test has [...] history, and epidemiological information. Performed on the [employer] Fusion instrument Performing Lab [place] [facility] 02/21/2020 12:[address] [facility] Swab 02/20/2020 22:1 0 EDT 02/21/2020 8:37 EDT Provider Outr Resulting Lab MICROBIOLOGY - GENERAL ORDERABLES [facility] [address] [place] [address] documented in this encounter Visit Diagnoses Not on filedocumented in this encounter Additional Health Concerns Infection Onset Date Last Indicated Resolved Time R/O COVID-19 02/20/2020 02/20/2020 02/25/2020 22:1 7 EDT documented as of this encounter Care Teams Hogshead Hooper Relationship Specialty Start Date End Date Monica Mulligan MD [address] [place] [phone] PCP - General 11/29/16 documented as of this encounter
[2024-04-18 19:27] LABS: ALT 38 U/L (16-63); AST 86 U/L (15-37); Albumin 4.2 g/dL (3.4-5.0); Alkaline Phosphatase 89 U/L (46-116); Anion Gap 15.1 mmol/L (3-11); BUN 2 mg/dL (7-18); CO2 25.9 mmol/L (21.0-32.0); CREATININE 0.6 mg/dL (0.70-1.30); Calcium 9.7 mg/dL (8.5-10.1); Chloride 95 mmol/L (98-107); Estimated GFR 119.07 (mL/min/1.73m2); Glucose 119 mg/dL (74-106); Lipase 158 U/L (16-77); Sodium 136 mmol/L (136-145); Troponin I < 50 ng/L (< or =60)
[2024-04-18 19:30] LABS: Potassium 2.9 mmol/L (3.5-5.1)
--- NOTE | 2024-04-18 20:05 | DI.VRAD_ITS ---
PROCEDURE INFORMATION: Exam: XR Chest Exam date and time: 04/18/2024 7:21 PM Age: 49 years old Clinical indication: Chest wall pain TECHNIQUE: Imaging protocol: Radiologic exam of the chest. Views: 2 views. COMPARISON: CR XR CHEST 2V PA LATERAL 03/30/2024 6:18 PM FINDINGS: Lungs: The lungs are clear. There is no pulmonary vascular congestion. Pleural spaces: There are no pleural effusions present. There is no evidence of pneumothorax. Heart/Mediastinum: The cardiomediastinal silhouette is within normal limits. Bones/joints: Unremarkable. IMPRESSION: No active cardiopulmonary disease identified. Dictated and Authenticated by: Aguilar Johnson MD. Ordering:LELEN Rasmussen MD
[2024-04-18] MEDS: Folic Acid 1 MG TAB PO (20:08)
[2024-04-18] MEDS: Famotidine 20 MG/2 ML VIAL IVP (20:08)
[2024-04-18] MEDS: Normal Saline 1,000 ML 999 ML IV (20:08)
[2024-04-18] MEDS: THIAMINE 100 MG in Normal Saline 100 ML 200 MG IVPB (20:08)
--- NOTE | 2024-04-18 20:28 | DI.CT_ITS ---
Exam(s) CT ABDOMEN PELVIS W EXAM: CT ABDOMEN PELVIS W CLINICAL HISTORY: pancreatitis, LUQ pain. TECHNIQUE: Imaging Protocol: Axial computed tomography images with coronal and sagittal reformatted images were created and reviewed CONTRAST MATERIAL: Intravenous: Omnipaque-350 100cc Oral: None COMPARISON: No exams were available for comparison FINDINGS: VISUALIZED LUNG BASES: No nodules nor pleural effusions evident. ABDOMEN: There is no ascites. LIVER: Mild generalized steatosis. No discrete focal hepatic lesions evident. No dilated intrahepat ic ducts. GALLBLADDER/BILIARY: No obvious gallbladder pathology. CBD is not dilated. PANCREAS: There is small calcifications again noted in the pancreatic head. No discrete pancreatic m ass evident. No dilatation of pancreatic duct. There is no peripancreatic fat streaking on today's study. No abnormal peripancreatic fluid collections. No pseudocyst. SPLEEN: Spleen is not enlarged. No obvious intrasplenic lesions. Splenic and portal veins are paten t. ADRENALS: There are no significant adrenal masses. KIDNEYS:No cysts evident. No solid renal masses. No calculi nor hydronephrosis.. ABDOMINAL AORTA: Abdominal aorta is not enlarged. LYMPH NODES:There is no retroperitoneal nor paraaortic adenopathy. ABDOMINAL WALL: No evidence of significant anterior abdominal wall nor inguinal hernia. GI: There is no evidence of bowel obstruction, free air, nor abscess. There is mild circumferential thickening of the lower esophagus without evidence of an obvious hiatal hernia. May imply esophagitis. PELVIS: GI: No evidence of appendicitis.Redundant sigmoid. No evidence of acute sigmoid diverticulitis. LYMPH NODES: There is no intrapelvic nor inguinal adenopathy. REPRODUCTIVE: Prostate size normal. URINARY BLADDER: Partially obscured by beam hardening artifact from right hip prosthesis. The bladde r is not distended but the wall of the bladder appears uniformly thickened. OSSEOUS: Right hip prosthesis again noted. There is evidence of avascular necrosis of the opposite-l eft hip again noted. No fractures. No lytic nor blastic osseous lesions. IMPRESSION: 1. No CT evidence of acute pancreatitis on the present study and no evidence of peripancreatic fluid collections. No evidence of pseudocyst. There few small calcifications in pancreatic head again not ed. 2. Urinary bladder wall appears diffusely thickened which is possibly related to in chronic cystitis. Evaluation of the bladder is somewhat limited due to beam hardening artifact from right hip prosthe sis. 3. Right hip prosthesis. Left hip avascular necrosis findings again noted. RADIATION DOSE DELIVERED: 302.78mGy.cm Total DLP DATA REPOSITORY: All CT scans at this facility are submitted to the National Radiology Data Registry (NRDR) Dose Index Registry (DIR) with the [employer] (ACR). RADIATION OPTIMIZATION: All CT scans at this facility use at least one of these dose optimization te chniques: automated exposure control; mA and/or kV adjustment per patient size (includes targeted exa ms where dose is matched to clinical indication); or iterative reconstruction.
[2024-04-18] MEDS: Omnipaque 350 MG/ML 100 ML BTL IJ (20:43)
[2024-04-18] MEDS: Normal Saline - Diluent 50 ML VIAL IJ (20:43)
[2024-04-18] MEDS: POTASSIUM CHLORIDE 10 MEQ/100 ML BAG 100 MEQ IVINF (21:00)
[2024-04-18] MEDS: Potassium Bicarbonate/Cit AC 25 MEQ TABLET.EFF 50 MEQ PO (21:00)
[2024-04-18] MEDS: Nicotine 21 MG/24 HR PATCH TD (21:03)
[2024-04-18] MEDS: Ketorolac 15 MG/ML VIAL IVP (21:03)
--- NOTE | 2024-04-18 21:52 | DI.VRAD_ITS ---
PROCEDURE INFORMATION: Exam: CT Abdomen And Pelvis With Contrast Exam date and time: 04/18/2024 8:42 PM Age: 49 years old Clinical indication: Abdominal pain; Other: Pancreatitis, luq pain TECHNIQUE: Imaging protocol: Computed tomography of the abdomen and pelvis with contrast. Total images: 3648 Contrast material: OMNI 350; Contrast volume: 100 ml; Contrast route: INTRAVENOUS (IV); COMPARISON: CT ABDOMEN PELVIS W 03/30/2024 6:01 PM FINDINGS: Esophagus: Stable distal esophageal wall thickening consistent with reflux esophagitis. Liver: Significant hepatic steatosis. Gallbladder and biliary ducts: No definite gallbladder wall thickening, gallstone or biliary dilatation. Pancreas: No mass or peripancreatic stranding. Stable punctate pancreatic head calcification. Spleen: No splenomegaly or splenic nodule. Adrenal glands: No adrenal nodule. Kidneys and ureters: 1 cm left upper pole renal cyst. No hydronephrosis or renal calculi. Stomach and bowel: No definite gastric or duodenal wall thickening. No small or large bowel dilatation. No definite bowel wall thickening. Appendix: No evidence of appendicitis. Intraperitoneal space: No free air or free fluid. Vasculature: No abdominal aortic aneurysm. Lymph nodes: No significant adenopathy. Urinary bladder: Diffuse smooth bladder wall thickening. Reproductive: No significant finding. Bones/joints: Total right hip replacement. Left femoral head AVN. Soft tissues: No significant finding, IMPRESSION: 1. No acute intra-abdominal finding/pancreatitis. 2. Nonspecific bladder thickening including possibility of cystitis. Dictated and Authenticated by: Lamberto Lazar MD. Ordering:ELLEN Rasmussen MD
[2024-04-18 22:24] LABS: Troponin I < 50 ng/L (< or =60)
[2024-04-18 22:46] LABS: Potassium 4.4 mmol/L (3.5-5.1)
[2024-04-18 22:57] LABS: Lab Add On Test DONE
[2024-04-18 22:58] LABS: Bilirubin Negative (Negative); Blood Negative (Negative); Clarity Clear (Clear); Glucose Negative (Negative); Ketones Negative (Negative); Leukocyte Esterase Negative (Negative); Nitrite Negative (Negative); Urobilinogen 0.2 mg/dL (Up to 0.2); pH 6.5 (5-8)
--- NOTE | 2024-04-19 00:07 | NUR.NOTE ---
[facility], to f/u next available 1-2 days for hypokalemia, gastritis.Nursing Note:
--- NOTE | 2024-04-20 08:17 | NUR.NOTE ---
Access chart to reconcile EKG orders to the EKGs in [facility]. Duplicate order cancelled. Nursing Note:
== END 2024-04-18 23:40 | disposition home or self-care (01) ==
PROVIDERS: Emergency Provider Nurse Practitioner Family; PCP Nurse Practitioner Family
DX: E87.6 Hypokalemia; K29.70 Gastritis, unspecified, without bleeding; K86.0 Alcohol-induced chronic pancreatitis; R11.2 Nausea with vomiting, unspecified
CPT/HCPCS: 36415; 80053; 83690; 93005; 96365; 96367; 96375; 99285; 71046; 74177; 80320; 81003; 83735; 84132; 84484; 85025; 93010; 99284; J1885; J3411; J3480; J3490

== ENCOUNTER 2024-04-22 13:39 | Emergency (ER) | payer MEDICAID, SELFPAY ==
[2024-04-22] VITALS (20 sets, daily range): BP systolic 120–140; BP diastolic 77–98; PULSE 71–90; RESP 16; TEMP 36.2; O2SAT 95–100
--- OUTSIDE RECORDS SUMMARY | 2024-04-22 13:45 | XMS_ITS | Encounter Summary ---
Author Organization [facility] Address [address] [place] [address] Care Team Providers Care Nip Wrapper Name Role Phone Monica Mulligan MD Primary Care Provider [phone] Encounter Details Date Type Department Care Team (Late st Contact Info) Description 02/18/2020 Lab Requisition [facility] Pathology & Laboratory Medicine - [facility] [address] [place], [place] [address] Outr Resulting Lab, Provider Social History Tobacco [...] 13:47 EDT) Hold Hold 02/18/2020 21:45 EDT [facility] Blood VENOUS BLOOD / Unknown 02/18/2020 13:47 EDT 02/18/2020 20:44 EDT Provider Outr Resulting Lab LAB INFO SER VICE AND SUPPORT & PHONE RESULT Performing Organization Address [facility]/ZIP Co de Phone Number [facility] [address] [place] [address] * HEPATITIS B SURFACE ANTIBODY (02/18/2020 13:47 EDT) Hep B Surface Ab, Quantitative <3.1 See Note mIU/mL 02/19/2020 11:14 EDT [facility] Comment: Reference Range for Hep B Surface Ab, Quant: Positive: >= 10.0 mIU/mL Negative: ??< 10.0 mIU/mL Patient is presumed to not be immune to infection with Hepatitis B Virus. Hep B Surface Ab, Qualitative Negative See Note 02/19/2020 11:14 EDT [facility] Comment: Reference Range for Hep B Surface Ab, Qual: Unvaccinated: ??Negative Vaccinated: ??Positive Blood VENOUS BLOOD / Unknown 02/18/2020 13:47 EDT 02/18/2020 20:44 EDT Provider Outr Resulting Lab CHEMISTRY & BLOOD GAS ORDERABLES Performing Organization Address [facility]/ZIP Co de Phone Number [facility] [address] [place] [id number] * HEPATITIS B SURFACE ANTIGEN (02/18/2020 13:47 EDT) Hep B Surface Ag Negative Negative 02/19/2020 11:12 EDT [facility] Blood VENOUS BLOOD / Unknown 02/18/2020 13:47 EDT 02/18/2020 20:44 EDT Provider Outr Resulting Lab CHEMISTRY & BLOOD GAS ORDERABLES Performing Organization Address [facility]/ZIP Co de Phone Number [facility] [address] [place] [address] * HEPATITIS C AB W REFLEX TO HCV RNA BY PCR (02/18/2020 13:47 EDT) Hep C Antibody Negative Negative 02/19/2020 11:53 EDT [facility] Blood VENOUS BLOOD / Unknown 02/18/2020 13:47 EDT 02/18/2020 20:44 EDT Provider Outr Resulting Lab CHEMISTRY & BLOOD GAS ORDERABLES [facility] [address] [place] [address] documented in this encounter Visit Diagnoses Not on filedocumented in this encounter Additional Health Concerns Infection Onset Date Last Indicated Resolved Time R/O COVID-19 02/20/2020 02/20/2020 02/25/2020 22:1 7 EDT documented as of this encounter Care Teams Nip Wrapper Relationship Specialty Start Date End Date Monica Mulligan MD [address] [place] [phone] PCP - General 11/29/16 documented as of this encounter
--- OUTSIDE RECORDS SUMMARY | 2024-04-22 13:45 | XMS_ITS | Referral Summary ---
Author Organization [facility] Address [address] [place] [address] Care Team Providers Care Litigation Partner Name Role Phone Monica Mulligan MD Primary Care Provider Social History Tobacco Use Types Packs/Day [...] C Antibody Negative Negative 02/19/2020 11:53 EDT [facility] Blood VENOUS BLOOD / Unknown 02/18/2020 13:47 EDT 02/18/2020 20:44 EDT Provider Outr Resulting Lab CHEMISTRY & BLOOD GAS ORDERABLES [facility] [address] [place] [address] from Last 3 Months or Most Recently Relevant to Health Maintenance Care Teams Litigation Partner Relationship Specialty Start Date End Date Monica Mulligan MD [address] [facility] [address] [place] [phone] PCP - General 11/29/16
--- OUTSIDE RECORDS SUMMARY | 2024-04-22 13:45 | XMS_ITS | Clinical Summary ---
Author Organization [facility] Address [address] [place] [address] Care Team Providers Care Obgyn Hospitalist Physician Name Role Phone Monica Mulligan MD Primary Care Provider [phone] Social History Tobacco Use Types Packs/Day Years [...] C Antibody Negative Negative 02/19/2020 11:53 EDT [facility] Blood VENOUS BLOOD / Unknown 02/18/2020 13:47 EDT 02/18/2020 20:44 EDT Provider Outr Resulting Lab CHEMISTRY & BLOOD GAS ORDERABLES [facility] [address] [place] [address] from Last 3 Months or Most Recently Relevant to Health Maintenance Care Teams Obgyn Hospitalist Physician Relationship Specialty Start Date End Date Monica Mulligan MD [address] [place] [address] [address] [place] [phone] PCP - General 11/29/16
--- OUTSIDE RECORDS SUMMARY | 2024-04-22 13:45 | XMS_ITS | Encounter Summary ---
Author Organization [facility] Address [address] [place] [address] Care Team Providers Care Wire Worker Name Role Phone Monica Mulligan MD Primary Care Provider [phone] Encounter Details Date Type Department Care Team (Late st Contact Info) Description 04/09/2020 Lab Requisition [facility] Pathology & Laboratory Medicine - [facility] [address] [place], [place] [address] Outr Resulting Lab, Provider Social History Tobacco [...] Outr Resulting Lab MICROBIOLOGY - GENERAL ORDERABLES [facility] [address] [place] [address] * COVID-19 TESTING (04/09/2020 12:55 EDT) COVID-19 rt-PCR Result Negative Negative 04/09/2020 19:41 EDT [facility] Comment: This test has [...] history, and epidemiological information. Performed on the [employer] Fusion instrument Performing Lab [place] [facility] 04/09/2020 19:41 EDT [facility] Swab 04/09/2020 12:5 5 EDT 04/09/2020 15:36 EDT Provider Outr Resulting Lab MICROBIOLOGY - GENERAL ORDERABLES [facility] [address] [place] [address] documented in this encounter Visit Diagnoses Not on filedocumented in this encounter Care Teams Wire Worker Relationship Specialty Start Date End Date Monica Mulligan MD [address] [place] [phone] PCP - General 11/29/16 documented as of this encounter
--- OUTSIDE RECORDS SUMMARY | 2024-04-22 13:45 | XMS_ITS | Encounter Summary ---
Author Organization [facility] Address [address] [place] [address] Care Team Providers Care Denture Finisher Name Role Phone Unavailable Primary Care Provider Unavailabl e Encounter Details Date Type Department Care Team (Latest Contact Info) Description 11/25/2016 6:49 EDT - 11/25/2016 23:59 EDT Hospital Encounter [address] [address] Unknown, Provider, Discharge Disposition: Home or Self Care Social History Tobacco Use Types Packs/Day Years Used Date Smoking Tobacco: Never Assessed Sex and Gender Information Value Date Recorded Sex Assigned at Not on file Gender Identity Not on file Sexual Orientation Not on file documented as of this encounter Discharge Disposition Disposition Code Departure Means Destination Home or Self Custodial documented in this encounter Plan of Treatment Not on file documented as of this encounter Visit Diagnoses Not on filedocumented in this encounter
--- OUTSIDE RECORDS SUMMARY | 2024-04-22 13:45 | XMS_ITS | Encounter Summary ---
Author Organization [facility] Address [address] [place] [address] Care Team Providers Care Pick Pulling Machine Tender Name Role Phone Monica Mulligan MD Primary Care Provider [phone] Encounter Details Date Type Department Care Team (Late st Contact Info) Description 02/20/2020 Lab Requisition [facility] Pathology & Laboratory Medicine - [facility] [address] [place], [place] [address] Outr Resulting Lab, Provider Social History Tobacco [...] Outr Resulting Lab MICROBIOLOGY - GENERAL ORDERABLES [facility] [address] [place] [address] * COVID-19 TESTING (02/20/2020 22:10 EDT) COVID-19 rt-PCR Result Negative Negative 02/21/2020 12:52 EDT [facility] Comment: This test [...] history, and epidemiological information. Performed on the [employer] Fusion instrument Performing Lab [place] [facility] 02/21/2020 12:52 EDT [facility] Swab 02/20/2020 22:1 0 EDT 02/21/2020 8:37 EDT Provider Outr Resulting Lab MICROBIOLOGY - GENERAL ORDERABLES [facility] [address] [place] [address] documented in this encounter Visit Diagnoses Not on filedocumented in this encounter Additional Health Concerns Infection Onset Date Last Indicated Resolved Time R/O COVID-19 02/20/2020 02/20/2020 02/25/2020 22:1 7 EDT documented as of this encounter Care Teams Pick Pulling Machine Tender Relationship Specialty Start Date End Date Monica Mulligan MD [address] [place] [phone] PCP - General 11/29/16 documented as of this encounter
--- OUTSIDE RECORDS SUMMARY | 2024-04-22 13:45 | XMS_ITS | Encounter Summary ---
Author Organization [facility] Address [address] [place] [address] Care Team Providers Care Agricultural Equipment Mechanic Name Role Phone Monica Mulligan MD Primary Care Provider [phone] Encounter Details Date Type Department Care Team (Late st Contact Info) Description 01/03/2022 Lab Requisition [facility] Pathology & Laboratory Medicine - [facility] [address] [place], [place] [address] Outr Resulting Lab, Provider Social History Tobacco [...] Lyme Ab Negative Negative 01/04/2022 10:17 EDT [facility] Blood VENOUS BLOOD / Unknown 01/03/2022 9:13 EDT 01/03/2022 17:09 EDT Provider Outr Resulting Lab IMMUNOLOGY A ND SEROLOGY ORDERABLES [facility] [address] [place] [address] documented in this encounter Visit Diagnoses Not on filedocumented in this encounter Care Teams Agricultural Equipment Mechanic Relationship Specialty Start Date End Date Monica Mulligan MD [address] [place] [phone] PCP - General 11/29/16 documented as of this encounter
--- OUTSIDE RECORDS SUMMARY | 2024-04-22 13:45 | XMS_ITS | Encounter Summary ---
Author Organization [facility] Address [address] [place] [address] Care Team Providers Care Mattress Renovator Name Role Phone Monica Mulligan MD Primary Care Provider [phone] Encounter Details Date Type Department Care Team (Late st Contact Info) Description 07/27/2021 Lab Requisition [facility] Pathology & Laboratory Medicine - [facility] [address] [place] [address] Bao Sharpe Jr., MD [address] [place] [phone] Encounter for other general examination [...] management options, if applicable. 08/04/2021 9:08 EST [facility] Final Diagnosis A. BONE, RIGHT FEMORAL HEAD, RESECTION: - Femoral head with osteoarthritis. 08/04/2021 9:08 [facility] Attestation There was significant resident/fellow involvement in the diagnostic evaluation of this case. By the signature below, the attending physician certifies that they have personally conducted a gross and/or microscopic examination of the described specimens and rendered or confirmed the above diagnosis. 08/04/2021 9:08 [facility] at 0908 Clinical History Encounter for other general examination; avascular necrosis of (R) femoral head 08/04/2021 9:08 [facility] Gross Description A. Received in [...] cartilage ranges averages 0.1 cm in thickness. Bobbin Painter sections are submitted for acid decalcification as follows: BLOCK HOLDEN A1-A2- Five fulfillment representative sections including neck and articular surface ELSY DEMPSEY([facility]) 07/28/2021 10:12 08/04/2021 9:08 [facility] Resident/Arturo w: Manolo Portillo MD 08/04/2021 9:08 [facility] Performing Lab [facility] 9:08 [facility] Scanned Images 08/04/2021 9:08 [facility] Tissue SPECIMEN FROM BONE / Unknown 07/27/2021 10:20 EST 07/27/2021 22:10 EST Bao Sharpe Jr., MD PATHOLO GY ORDERABLES [facility] [address] [place] [address] documented in this encounter Visit Diagnoses Diagnosis Encounter for other general examination documented in this encounter Care Teams Mattress Renovator Relationship Specialty Start Date End Date Monica Mulligan MD [address] [place] [phone] PCP - General 11/29/16 documented as of this encounter
--- OUTSIDE RECORDS SUMMARY | 2024-04-22 13:45 | XMS_ITS | Encounter Summary ---
Author Organization [facility] Address [address] [place] [address] Care Team Providers Care Mechanical Technologist Name Role Phone Unknown, Provider Primary Care Provider [phone] Encounter Details Date Type Department Care Team (Late st Contact Info) Description 11/25/2016 Results Only [facility] [phone] Jackie Marin, DO [address] [place] [phone] Social History Tobacco Use Types [...] Name: ? PARSONPAUL ? Accession #: ? [id number] ? : ? 1975 (Age: 41) ??M [...] is filled with laminated orthokeratin. ??(Dr. Dumont)/[facility] Document reviewed and electronically signed by: MARIA [...] Camilo 11/26/2016 9:58 AM End of Report [facility] 11/25/2016 5:50 EDT 11/26/2016 5:50 EDT Jackie Marin DO PATHOLOGY ORDERABLES [facility] [address] [place] [address] documented in this encounter Visit Diagnoses Not on filedocumented in this encounter Care Teams Mechanical Technologist Relationship Specialty Start Date End Date Unknown, Provider, PCP - General 11/26/16 11/28/16 documented as of this encounter
--- NOTE | 2024-04-22 13:53 | ED.GENADUL_ITS ---
Discharge Plan Disposition Patient Disposition: Home Condition: Stable Discharge Details Clinical Impression: Chronic vertigo, Hypomagnesemia Primary Care Provider: OWEN GARRISON ED Provider: Manolo Jeffers Home Meds and New Rx's Prescriptions: New meclizine 25 mg tablet 25 mg PO TID PRN (Reason: dizziness) Qty: 30 0RF No Action No Known Home Meds Discharge Instructions Instructions: Hypomagnesemia Additional Instructions: Trying to limit alcohol that 2 drinks max a day may help your symptoms Follow-up with your primary care provider within 1 to 2 weeks If you feel more ill or have new symptoms such as high fevers or persistent vomiting return to the emergency department for reevaluation HPI General Mode of arrival: EMS . Date/Time Provider Initiated Documentation: 04/22/24 13:42 . Limitations to Documentation: no limitations . Information obtained by: patient . History of Present Illness 49 year old M presents to the emergency department with the chief complaint of dizziness, described as moderate, Patient started experiencing this year(s) (1) and it has been intermittent. No relieving factors improve symptom(s), No exacerbating factors reported . Patient notes denies chest pain, fever/chills and shortness of breath. Patient did receive the following treatments prior to arrival, none Related Data Home Medications ?Medication ?Instructions ?Recorded ?Confirmed Unknown [No Known Home Meds] 02/28/24 04/22/24 meclizine 25 mg tablet 25 mg PO TID PRN dizziness #30 tabs 04/22/24 Previous Rx's ?Medication ?Instructions ?Recorded meclizine 25 mg tablet 25 mg PO TID PRN dizziness #30 tabs 04/22/24 Allergies Allergy/AdvReac Type Severity Reaction Status Date / Time hydromorphone (From Dilaudid) AdvReac Intermediate Other (See Verified 04/22/24 13:39 Comment) General Stated Complaint: Dizzy/Sync SARAH: 3 Review of Systems All systems reviewed & are unremarkable except as noted in HPI and below Constitutional Constitutional: Denies chills, Denies fever(s) and Denies weakness Eyes Eyes: Denies loss of vision ENT Ears, Nose, Mouth, and Throat: Reports dizziness Cardiovascular Cardiovascular: Denies chest pain and Denies dyspnea Respiratory Respiratory: Denies cough and Denies dyspnea Gastrointestinal Gastrointestinal: Denies abdominal pain, Denies nausea and Denies vomiting Musculoskeletal Musculoskeletal: Denies joint swelling Neurologic Neurologic: Reports dizziness, Denies loss of vision and Denies weakness Exam Const General: no acute distress Orientation: alert HENFL Head: normal to inspection Ears: external ears normal General nose exam: external nose normal Mouth: moist mucous membranes Eyes General: appearance normal, both eyes and all related structures Neck Neck: normal visual inspection Resp Effort & Inspection: normal respiratory effort and able to speak in complete sentences Cardio Rate: regular rate Skin General skin exam: no rashes or lesions noted Neuro General: patient alert, patient oriented x3 and CN's II-XI intact bilaterally Extrem General: normal to inspection Psych Mental Status: mental status grossly normal Course Vital Signs Vital signs: Vital Signs Temperature 36.2 C L 04/22/24 13:39 Pulse 90 04/22/24 13:39 Respiratory Rate 16 04/22/24 13:39 Blood Pressure 132/96 H 04/22/24 13:39 Pulse Oximetry 98 04/22/24 13:39 Temperature 36.2 C L 04/22/24 13:39 Temperature Source Temporal Artery Scan 04/22/24 13:39 Pulse 90 04/22/24 13:39 Respiratory Rate 16 04/22/24 13:39 Respiratory Effort Normal, Non-Labored 04/22/24 13:42 Blood Pressure 132/96 H 04/22/24 13:39 Blood Pressure Position Sitting 04/22/24 13:39 Pulse Oximetry 98 04/22/24 13:39 Oxygen Delivery Method Room Air 04/22/24 13:39 Oxygen Flow Rate 0 04/22/24 13:39 Pain Level 8 04/22/24 13:39 Comment dizzy 04/22/24 13:39 Medical Decision Making 49-year-old male with a history of chronic alcoholism and chronic issues with vertigo comes in after he drank white claw seltzers this morning and states he has been feeling dizzy. He says that he feels the room is spinning especially when he moves his head. He denies any falls or trauma, no fevers no headaches no weakness. He is alert and oriented x 4 on arrival with clear speech though he does have smell of alcohol on his breath. He has no focal neurological deficits, pupils are equal and reactive to light. He has a reassuring hints exam and has very mild horizontal nystagmus of both eyes when looking to the left. I suspect he has peripheral vertigo which is being exacerbated by also being intoxicated, will check a CBC and CMP and alcohol level and treat his symptoms with meclizine and reassess. He has no findings on exam to suggest central stroke so do not feel any imaging of the head indicated. He denies any chest pain or difficulty breathing as well so do not feel any cardiac workup indicated Alcohol level over 400 which is surprising given the patient alert and oriented and speaking clearly. He admits to heavy alcohol use daily and is not interested in detox at this time. He feels better after meclizine and still has reassuring exam, he is stable for discharge home follow-up with his PCP, return precautions given Differential Diagnosis Differential Diagnosis: Alcohol intoxication, electrolyte abnormality, vertigo Lab Data Lab results reviewed: Yes I reviewed the patient's lab results. Quality:SDOH Health Related Social Needs: Health related social needs food insecurity, transpo i nsecurity Health related social needs details Has mold in his ap artment, would be interested in commercial litigation paralegal resources for tenant rights [facility] All Active Problems (Updated 04/22/24 @ 14:57 by Manolo Jeffers MD) Hypomagnesemia (Acute) Hypokalemia (Acute) Pancreatitis (Chronic) Alcohol withdrawal (Acute) Fever (Acute) Nicotine addiction (Acute) Gastroenteritis (Acute) Gastritis (Acute) Alcoholic pancreatitis (Acute) Trochanteric bursitis, right hip (Acute) Avascular necrosis of bone of left hip (Acute) Chest pain (Acute) due to ETOH Hepatic steatosis (Acute) COVID-19 ruled out (Acute) Tobacco abuse (Acute) Impairment of balance (Acute) Chronic vertigo (Acute) Electrolyte and fluid disorder (Acute) Medical History On deep vein thrombosis (DVT) prophylaxis Surgical History 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) Cyst of right upper eyelid Family History Maternal Grandfather Alcohol abuse Maternal Uncle Alcohol abuse Social History Smoking/Tobacco Use Status: Current every day Tobacco Type: cigarettes Years smoked: 25 Smoking risk assessment performed?: Yes Alcohol Intake: current Alcohol Intake frequency: 3 or more drinks per day Alcohol type: beer and hard liquor Details: last drink was 2 weeks ago Drug use: Never Substance use type: does not use Housing: 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 PAWSS Have you Been Recently Intoxicated or Drunk Within the Last 30 days?: Yes Have you Ever Experienced Previous Episodes of Alcohol Withdrawal?: No Have you ever Experienced Withdrawal Seizures?: No Have you ever Experienced Delirium Tremens(DT)s?: No Have you ever undergone Alcohol Rehabilitation Treatment (i.e, inpt ot outpatient treatment programs)?: No Have you ever Experienced Blackouts?: No Have you ever Combined Alcohol with other Downers within the last 90 days?: No Have you ever Combined Alcohol with any other Substance of Abuse during the last 90 days?: No Positive Blood Alcohol level on Presentation? [PCS.BAL]: Yes Evidence of Increased Autonomic Activity (i.e. HR>120, tremor, sweating, agitation, nausea)?: No Result: 2
[2024-04-22] MEDS: Normal Saline 1,000 ML 1000 ML IV (14:01)
[2024-04-22] MEDS: Meclizine 25 MG TAB PO (14:07)
[2024-04-22 14:12] LABS: Abs Immature Grans 0.02 10^3/uL (0.0-0.06); Absolute Basophil Count 0.05 10^3/uL (0.0-0.2); Absolute Eosinophil Count 0.09 10^3/uL (0.0-0.7); Absolute Lymphocyte Count 2.29 10^3/uL (1.2-3.4); Absolute Monocyte Count 0.36 10^3/uL (0.1-0.8); Absolute Neutrophil Count 3.11 10^3/uL (1.2-6.7); Basophils % 0.8 %; Eosinophils % 1.5 %; HCT 39.9 % (40.0-50.0); Immature Grans % 0.3 %; Lymphocytes % 38.7 %; MCH 36.4 pg (27.0-33.0); MCHC 35.1 % (32.0-36.0); MCV 104 fL (80-95); MPV 9.2 fL (8.0-11.0); Monocytes % 6.1 %; Neutrophils % 52.6 %; Platelet Count 179 10^3/uL (130-400); RBC 3.85 10^6/uL (4.36-5.78); RDW 14.1 % (11.8-14.1); RDW-SD 53.9 fL; WBC 5.92 10^3/uL (4.4-10.8)
[2024-04-22 14:29] LABS: ALT 49 U/L (16-63); AST 102 U/L (15-37); Albumin 3.9 g/dL (3.4-5.0); Alkaline Phosphatase 84 U/L (46-116); BUN 6 mg/dL (7-18); Bilirubin, Total 0.33 mg/dL (0.2-1.0); CREATININE 0.7 mg/dL (0.70-1.30); Calcium 9.1 mg/dL (8.5-10.1); Chloride 101 mmol/L (98-107); Estimated GFR 113.66 (mL/min/1.73m2); Glucose 101 mg/dL (74-106); Magnesium 1.5 mg/dL (1.8-2.4); Potassium 3.8 mmol/L (3.5-5.1); Sodium 142 mmol/L (136-145); Total Protein 8.2 g/dL (6.4-8.2)
[2024-04-22 14:33] LABS: ETHANOL BLOOD 420.2 mg/dL (<10)
[2024-04-22 14:35] LABS: TSH (W/Ref FT4) 1.62 uIU/mL (0.36-3.74)
[2024-04-22 15:09] LABS: Bilirubin Negative (Negative); Blood Negative (Negative); Clarity Clear (Clear); Glucose Negative (Negative); Ketones Negative (Negative); Leukocyte Esterase Negative (Negative); Nitrite Negative (Negative); Urobilinogen 0.2 mg/dL (Up to 0.2)
[2024-04-22 15:24] LABS: *AMPHETAMINES SCREEN URINE Negative (Negative); *BARBITURATES SCREEN URINE Negative (Negative); *BENZODIAZEPINES SCREEN URINE Negative (Negative); Cannabinoids THC Negative (Negative); Cocaine Screen,Urine Negative (Negative); METHADONE URINE SCREEN Negative (Negative); OPIATES URINE SCREEN Negative (Negative)
[2024-04-22 15:26] LABS: Tricyclic Antidepressants Negative (Negative)
== END 2024-04-22 15:35 | disposition home or self-care (01) ==
PROVIDERS: Emergency Provider Emergency Medicine; PCP Nurse Practitioner Family
DX: R42 Dizziness and giddiness (principal); E83.42 Hypomagnesemia; F10.20 Alcohol dependence, uncomplicated; Y90.8 Blood alcohol level of 240 mg/100 ml or more; F17.210 Nicotine dependence, cigarettes, uncomplicated
CPT/HCPCS: 80053; 80307; 96360; 99284; 80320; 81003; 83735; 84443; 85025; 99283

== ENCOUNTER 2024-05-18 12:43 | Emergency (ER) | payer MEDICAID, SELFPAY ==
[2024-05-18 12:45] VITALS: BP 113/78; PULSE 105; RESP 18; TEMP 36.5; O2SAT 94
--- OUTSIDE RECORDS SUMMARY | 2024-05-18 13:11 | XMS_ITS | Clinical Summary ---
Author Organization [facility] Address [address] [place] [address] Care Team Providers Care Shipfitter Name Role Phone Monica Mulligan MD Primary Care Provider [phone] Social History Tobacco Use Types Packs/Day Years [...] C Antibody Negative Negative 02/19/2020 11:53 EDT [facility] Blood VENOUS BLOOD / Unknown 02/18/2020 13:47 EDT 02/18/2020 20:44 EDT Provider Outr Resulting Lab CHEMISTRY & BLOOD GAS ORDERABLES [facility] [address] [place] [address] from Last 3 Months or Most Recently Relevant to Health Maintenance Care Teams Shipfitter Relationship Specialty Start Date End Date Monica Mulligan MD [address] [place] [address] [address] [place] [phone] PCP - General 11/29/16
--- OUTSIDE RECORDS SUMMARY | 2024-05-18 13:11 | XMS_ITS | Encounter Summary ---
Author Organization [facility] Address [address] [place] [address] Care Team Providers Care Porter Baggage Name Role Phone Monica Mulligan MD Primary Care Provider [phone] Encounter Details Date Type Department Care Team (Late st Contact Info) Description 04/09/2020 Lab Requisition [facility] Pathology & Laboratory Medicine - [facility] [address] [place], [place] [address] Outr Resulting Lab, Provider Social History Tobacco [...] Outr Resulting Lab MICROBIOLOGY - GENERAL ORDERABLES [facility] [address] [place] [address] * COVID-19 TESTING (04/09/2020 12:55 EDT) COVID-19 rt-PCR Result Negative Negative 04/09/2020 19:41 EDT [facility] Comment: This test has [...] history, and epidemiological information. Performed on the [employer] Fusion instrument Performing Lab [place] [facility] Lab 04/09/2020 19:41 EDT [facility] Swab 04/09/2020 12:5 5 EDT 04/09/2020 15:36 EDT Provider Outr Resulting Lab MICROBIOLOGY - GENERAL ORDERABLES [facility] [address] [place] [address] documented in this encounter Visit Diagnoses Not on filedocumented in this encounter Care Teams Porter Baggage Relationship Specialty Start Date End Date Monica Mulligan MD [address] [place] [phone] PCP - General 11/29/16 documented as of this encounter
--- OUTSIDE RECORDS SUMMARY | 2024-05-18 13:11 | XMS_ITS | Encounter Summary ---
Author Organization [facility] Address [address] [place] [address] Care Team Providers Care Dough Machine Operator Name Role Phone Monica Mulligan MD Primary Care Provider Encounter Details Date Type Department Care Team (Late st Contact Info) Description 07/27/2021 Lab Requisition [facility] Pathology & Laboratory Medicine - [facility] [address] [place] [address] Bao Sharpe Jr., MD [address] [place] [address] Encounter for other general examination [...] management options, if applicable. 08/04/2021 9:08 EST [facility] Final Diagnosis A. BONE, RIGHT FEMORAL HEAD, RESECTION: - Femoral head with osteoarthritis. 08/04/2021 9:08 [facility] Attestation There was significant resident/fellow involvement in the diagnostic evaluation of this case. By the signature below, the attending physician certifies that they have personally conducted a gross and/or microscopic examination of the described specimens and rendered or confirmed the above diagnosis. 08/04/2021 9:08 [facility] at 0908 Clinical History Encounter for other general examination; avascular necrosis of (R) femoral head 08/04/2021 9:08 [facility] Gross Description A. Received [...] cartilage ranges averages 0.1 cm in thickness. College Associate sections are submitted for acid decalcification as follows: BLOCK HOLDEN A1-A2- Five direct customer service representative sections including neck and articular surface ELSY DEMPSEY([facility]) 07/28/2021 10:12 08/04/2021 9:08 [facility] Resident/Arturo w: Manolo Portillo MD 08/04/2021 9:08 [facility] Performing Lab [facility] LAB 9:08 [facility] Scanned Images 08/04/2021 9:08 [facility] Tissue SPECIMEN FROM BONE / Unknown 07/27/2021 10:20 EST 07/27/2021 22:10 EST Bao Sharpe Jr., MD PATHOLO GY ORDERABLES [facility] [address] [place] [address] documented in this encounter Visit Diagnoses Diagnosis Encounter for other general examination documented in this encounter Care Teams Dough Machine Operator Relationship Specialty Start Date End Date Monica Mulligan MD [address] [place] [phone] PCP - General 11/29/16 documented as of this encounter
--- OUTSIDE RECORDS SUMMARY | 2024-05-18 13:11 | XMS_ITS | Encounter Summary ---
Author Organization [facility] Address [address] [place] [address] Care Team Providers Care Bench Mover Name Role Phone Unknown, Provider Primary Care Provider [phone] Encounter Details Date Type Department Care Team (Late st Contact Info) Description 11/25/2016 Results Only [facility] [phone] Jackie Marin, DO [address] [place] [address] Social History Tobacco Use Types [...] Name: ? PARSONPAUL ? Accession #: ? [id number] ? : ? 1975 (Age: 41) ??M [...] cyst is filled with laminated orthokeratin. ??(Dr. Dumont)/[facility] Document reviewed and electronically signed by: [...] Camilo 11/26/2016 9:58 AM End of Report [facility] 11/25/2016 5:50 EDT 11/26/2016 5:50 EDT Jackie Marin DO PATHOLOGY ORDERABLES [facility] [address] [place] [address] documented in this encounter Visit Diagnoses Not on filedocumented in this encounter Care Teams Bench Mover Relationship Specialty Start Date End Date Unknown, Provider, PCP - General 11/26/16 11/28/16 documented as of this encounter
--- OUTSIDE RECORDS SUMMARY | 2024-05-18 13:11 | XMS_ITS | Encounter Summary ---
Author Organization [facility] Address [address] [place] [address] Care Team Providers Care Community Placement Worker Name Role Phone Monica Mulligan MD Primary Care Provider [phone] Encounter Details Date Type Department Care Team (Late st Contact Info) Description 02/18/2020 Lab Requisition [facility] Pathology & Laboratory Medicine - [facility] [address] [place], [place] [phone] Outr Resulting Lab, Provider Social History Tobacco [...] 13:47 EDT) Hold Hold 02/18/2020 21:45 EDT [facility] Blood VENOUS BLOOD / Unknown 02/18/2020 13:47 EDT 02/18/2020 20:44 EDT Provider Outr Resulting Lab LAB INFO SER VICE AND SUPPORT & PHONE RESULT Performing Organization Address [facility]/ZIP Co de Phone Number [facility] [address] [place] [address] * HEPATITIS B SURFACE ANTIBODY (02/18/2020 13:47 EDT) Hep B Surface Ab, Quantitative <3.1 See Note mIU/mL 02/19/2020 11:14 EDT [facility] Comment: Reference Range for Hep B Surface Ab, Quant: Positive: >= 10.0 mIU/mL Negative: ??< 10.0 mIU/mL Patient is presumed to not be immune to infection with Hepatitis B Virus. Hep B Surface Ab, Qualitative Negative See Note 02/19/2020 11:14 EDT [facility] Comment: Reference Range for Hep B Surface Ab, Qual: Unvaccinated: ??Negative Vaccinated: ??Positive Blood VENOUS BLOOD / Unknown 02/18/2020 13:47 EDT 02/18/2020 20:44 EDT Provider Outr Resulting Lab CHEMISTRY & BLOOD GAS ORDERABLES Performing Organization Address [facility]/ZIP Co de Phone Number [facility] [address] [place] [phone] * HEPATITIS B SURFACE ANTIGEN (02/18/2020 13:47 EDT) Hep B Surface Ag Negative Negative 02/19/2020 11:12 EDT [facility] Blood VENOUS BLOOD / Unknown 02/18/2020 13:47 EDT 02/18/2020 20:44 EDT Provider Outr Resulting Lab CHEMISTRY & BLOOD GAS ORDERABLES Performing Organization Address [facility]/ZIP Co de Phone Number [facility] [address] [place] [address] * HEPATITIS C AB W REFLEX TO HCV RNA BY PCR (02/18/2020 13:47 EDT) Hep C Antibody Negative Negative 02/19/2020 11:53 EDT [facility] Blood VENOUS BLOOD / Unknown 02/18/2020 13:47 EDT 02/18/2020 20:44 EDT Provider Outr Resulting Lab CHEMISTRY & BLOOD GAS ORDERABLES [facility] [address] [place] [address] documented in this encounter Visit Diagnoses Not on filedocumented in this encounter Additional Health Concerns Infection Onset Date Last Indicated Resolved Time R/O COVID-19 02/20/2020 02/20/2020 02/25/2020 22:1 7 EDT documented as of this encounter Care Teams Community Placement Worker Relationship Specialty Start Date End Date Monica Mulligan MD [address] [place] [phone] PCP - General 11/29/16 documented as of this encounter
--- OUTSIDE RECORDS SUMMARY | 2024-05-18 13:11 | XMS_ITS | Encounter Summary ---
Author Organization [facility] Address [address] [place] [address] Care Team Providers Care Network Operations Technician Name Role Phone Monica Mulligan MD Primary Care Provider [phone] Encounter Details Date Type Department Care Team (Late st Contact Info) Description 02/20/2020 Lab Requisition [facility] Pathology & Laboratory Medicine - [facility] [address] [place], [place] [address] Outr Resulting Lab, Provider Social History Tobacco [...] Lab MICROBIOLOGY - GENERAL ORDERABLES [facility] [address] [place] [address] * COVID-19 TESTING (02/20/2020 22:10 EDT) COVID-19 rt-PCR Result Negative Negative 02/21/2020 12:52 EDT [facility] Comment: This test has not [...] history, and epidemiological information. Performed on the [employer] Fusion instrument Performing Lab [place] [facility] Lab 02/21/2020 12:52 EDT [facility] Swab 02/20/2020 22:1 0 EDT 02/21/2020 8:37 EDT Provider Outr Resulting Lab MICROBIOLOGY - GENERAL ORDERABLES [facility] [address] [place] [address] documented in this encounter Visit Diagnoses Not on filedocumented in this encounter Additional Health Concerns Infection Onset Date Last Indicated Resolved Time R/O COVID-19 02/20/2020 02/20/2020 02/25/2020 22:1 7 EDT documented as of this encounter Care Teams Network Operations Technician Relationship Specialty Start Date End Date Monica Mulligan MD [address] [place] [phone] PCP - General 11/29/16 documented as of this encounter
--- OUTSIDE RECORDS SUMMARY | 2024-05-18 13:11 | XMS_ITS | Encounter Summary ---
Author Organization [facility] Address [address] [place] [address] Care Team Providers Care Maternity Floor Supervisor Name Role Phone Unavailable Primary Care Provider Unavailabl e Encounter Details Date Type Department Care Team (Latest Contact Info) Description 11/25/2016 6:49 EDT - 11/25/2016 23:59 EDT Hospital Encounter [address] [address] Unknown, Provider, Discharge Disposition: Home or Self Care Social History Tobacco Use Types Packs/Day Years Used Date Smoking Tobacco: Never Assessed Sex and Gender Information Value Date Recorded Sex Assigned at Not on file Gender Identity Not on file Sexual Orientation Not on file documented as of this encounter Discharge Disposition Disposition Code Departure Means Destination Home or Self Shelter documented in this encounter Plan of Treatment Not on file documented as of this encounter Visit Diagnoses Not on filedocumented in this encounter
--- OUTSIDE RECORDS SUMMARY | 2024-05-18 13:11 | XMS_ITS | Referral Summary ---
Author Organization [facility] Address [address] [place] [address] Care Team Providers Care Cross Tie Tram Loader Name Role Phone Monica Mulligan MD Primary Care Provider [phone] Social History Tobacco Use Types Packs/Day Years [...] C Antibody Negative Negative 02/19/2020 11:53 EDT [facility] Blood VENOUS BLOOD / Unknown 02/18/2020 13:47 EDT 02/18/2020 20:44 EDT Provider Outr Resulting Lab CHEMISTRY & BLOOD GAS ORDERABLES [facility] [address] [place] [address] from Last 3 Months or Most Recently Relevant to Health Maintenance Care Teams Cross Tie Tram Loader Relationship Specialty Start Date End Date Monica Mulligan MD [address] [facility] [address] [place] [phone] PCP - General 11/29/16
--- OUTSIDE RECORDS SUMMARY | 2024-05-18 13:11 | XMS_ITS | Encounter Summary ---
Author Organization [facility] Address [address] [place] [address] Care Team Providers Care Systems Management Consultant Name Role Phone Monica Mulligan MD Primary Care Provider [phone] Encounter Details Date Type Department Care Team (Late st Contact Info) Description 01/03/2022 Lab Requisition [facility] Pathology & Laboratory Medicine - [facility] [address] [place], [place] [address] Outr Resulting Lab, Provider Social History Tobacco [...] Lyme Ab Negative Negative 01/04/2022 10:17 EDT [facility] Blood VENOUS BLOOD / Unknown 01/03/2022 9:13 EDT 01/03/2022 17:09 EDT Provider Outr Resulting Lab IMMUNOLOGY A ND SEROLOGY ORDERABLES [facility] [address] [place] [address] documented in this encounter Visit Diagnoses Not on filedocumented in this encounter Care Teams Systems Management Consultant Relationship Specialty Start Date End Date Monica Mulligan MD [address] [place] [phone] PCP - General 11/29/16 documented as of this encounter
--- NOTE | 2024-05-18 13:14 | DI.RAD_ITS ---
Exam(s) XR FOOT RT COMPLETE EXAM: XR FOOT RT COMPLETE CLINICAL HISTORY: R foot pain x 1.5 weeks. TECHNIQUE: 2D digital imaging was performed of the right foot. Three images were obtained. AP, obl ique and lateral views were obtained. COMPARISON: No exams were available for comparison FINDINGS: BONES: No acute fracture is present. No bony destructive lesion is seen. There are multipartite sesam oids at the head of the 1st metatarsal bone. There is a small enthesophyte at the posterior calcaneu s. JOINTS: No dislocation present. Mild degenerative changes are seen at the talonavicular joint. SOFT TISSUE: Normal. IMPRESSION: No acute abnormality. DATA REPOSITORY: RADIATION DOSE DELIVERED:
--- NOTE | 2024-05-18 13:31 | ED.GENADUL_ITS ---
Discharge Plan Disposition Patient Disposition: Home Discharge Details Clinical Impression: Acute pain of right foot Primary Care Provider: OWEN GARRISON ED Provider: Valery Padilla Home Meds and New Rx's Prescriptions: No Action meclizine 25 mg tablet 25 mg PO TID PRN (Reason: dizziness) Qty: 30 0RF acetaminophen 500 mg capsule 1,000 mg PO Q6H PRN Discharge Instructions Additional Instructions: Please follow-up with your primary care provider for further evaluation of your foot pain. This is likely caused by inflammation to the top of your foot and an area called the sinus tarsi. I recommend that you use well supportive shoes, local application of Voltaren gel, and Regino bandage as needed for discomfort. Please rest as possible, elevating her foot above heart level. Please do not use ibuprofen or Tylenol while drinking alcohol, as this may increase your risk of GI bleeding and liver dysfunction. Referrals: OWEN GARRISON, BROADCAST ENGINEER [Primary Care Provider] - HPI General Date/Time Provider Initiated Documentation: 05/18/24 12:50 . HPI Narrative: Paul is a 49-year-old male who presents to the emergency department today for evaluation of pain to the upper part of his right foot. He reports that pain started approximately a week and a half ago, aggravated by walking, palpation, and pronation. It has been increasing in intensity and severity since onset. He has been taking ibuprofen with some improvement in symptoms. He is able to ambulate without difficulty, finds that wearing well supportive boots is helpful. He denies distal numbness/tingling, associated trauma, fever/chills, other joint swelling, or generalized feeling of unwellness. He reports he has been cutting down on alcohol consumption, though he did have one beer this morning. Physical exam remarkable for mild swelling and tenderness to the dorsa R hindfoot, just inferior and medial to the lateral malleolus. No overlying color change, ecchymosis, or warmth. +CMS to toes. Full ROM of ankle, discomfort noted with pronation. D/dx includes but is not limited to: tendonitis, sinus tarsi syndrome, ankle sprain, stress fracture I independently interpreted the following tests: R foot nguyễn, no obvious fracture or abnormality noted. This was confirmed by radiologist. While in the ED, Paul received REGINO bandage for comfort. 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 Recommend f/u with PCP for further evaluation/management as needed. Recommend RICE, use of compression wrap, well supportive shoes. Reviewed risks of NSAID and APAP use with ETOH. Paul voices agreement with plan of care. Related Data Home Medications ?Medication ?Instructions ?Recorded ?Confirmed meclizine 25 mg tablet 25 mg PO TID PRN dizziness #30 tabs 04/22/24 05/18/24 acetaminophen 500 mg capsule 1,000 mg PO Q6H PRN 05/18/24 05/18/24 Previous Rx's ?Medication ?Instructions ?Recorded meclizine 25 mg tablet 25 mg PO TID PRN dizziness #30 tabs 04/22/24 Allergies Allergy/AdvReac Type Severity Reaction Status Date / Time hydromorphone (From Dilaudid) AdvReac Intermediate Other (See Verified 05/18/24 12:48 Comment) General Stated Complaint: Orthopedic SARAH: 4 Review of Systems Narrative: see HPI Exam Const General: cooperative, healthy appearing, comfortable, no acute distress, well developed and well groomed Nutritional Appearance: average body habitus Orientation: alert and oriented x3 Resp Effort & Inspection: normal respiratory effort and able to speak in complete sentences Skin General skin exam: no rashes or lesions noted Neuro Gait: normal gait Motor: muscle tone normal throughout and strength 5/5 throughout Sensory Exam: no sensory deficits noted Extrem Right lower extremity: no joint enlargement, knee Details: normal to inspection, ankle Details: no edema and foot Details: normal capillary refill and tenderness Location: of the dorsal foot (proximal lateral foot inferior to malleolus) Left lower extremity: normal to inspection Course Vital Signs Vital signs: Vital Signs Temperature 36.5 C 05/18/24 12:45 Pulse 105 H 05/18/24 12:45 Respiratory Rate 18 05/18/24 12:45 Blood Pressure 113/78 05/18/24 12:45 Pulse Oximetry 94 05/18/24 12:45 Temperature 36.5 C 05/18/24 12:45 Temperature Source Oral 05/18/24 12:45 Pulse 105 H 05/18/24 12:45 Respiratory Rate 18 05/18/24 12:45 Blood Pressure 113/78 05/18/24 12:45 Blood Pressure Position Sitting 05/18/24 12:45 Pulse Oximetry 94 05/18/24 12:45 Oxygen Delivery Method Room Air 05/18/24 12:45 Oxygen Flow Rate 0 05/18/24 12:45 Medical Decision Making Quality:SDOH Health Related Social Needs: Health related social needs risk of homeless Health related social needs details Has mold in his ap artment, would be interested in legal support assistant resources for tenant rights PENDING SALE TO [facility] All Active Problems (Updated 05/18/24 @ 13:31 by Valery Obrien) Acute pain of right foot (Acute) Hypomagnesemia (Acute) Hypokalemia (Acute) Alcohol withdrawal (Acute) Fever (Acute) Nicotine addiction (Acute) Gastroenteritis (Acute) Gastritis (Acute) Alcoholic pancreatitis (Acute) Trochanteric bursitis, right hip (Acute) Avascular necrosis of bone of left hip (Acute) Chest pain (Acute) due to ETOH Hepatic steatosis (Acute) COVID-19 ruled out (Acute) Tobacco abuse (Acute) Impairment of balance (Acute) Chronic vertigo (Acute) Electrolyte and fluid disorder (Acute) Medical History On deep vein thrombosis (DVT) prophylaxis Surgical History 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) Cyst of right upper eyelid Family History Maternal Grandfather Alcohol abuse Maternal Uncle Alcohol abuse Social History Smoking/Tobacco Use Status: Current every day Tobacco Type: cigarettes Years smoked: 25 Smoking risk assessment performed?: Yes Alcohol Intake: current Alcohol Intake frequency: 0-2 drinks per day Alcohol type: beer and hard liquor Details: last drink was 2 weeks ago Drug use: Never Substance use type: does not use Housing: 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 PAWSS Have you Been Recently Intoxicated or Drunk Within the Last 30 days?: Yes Have you Ever Experienced Previous Episodes of Alcohol Withdrawal?: Yes Have you ever Experienced Withdrawal Seizures?: Yes Have you ever Experienced Delirium Tremens(DT)s?: Yes Have you ever undergone Alcohol Rehabilitation Treatment (i.e, inpt ot out patient treatment programs)?: Yes Have you ever Experienced Blackouts?: Yes Have you ever Combined Alcohol with other Downers within the last 90 days?: No Have you ever Combined Alcohol with any other Substance of Abuse during the last 90 days?: No Positive Blood Alcohol level on Presentation? [PCS.BAL]: Yes Evidence of Increased Autonomic Activity (i.e. HR>120, tremor, sweating, agitation, nausea)?: No Result: 7
--- NOTE | 2024-05-18 13:49 | DI.VRAD_ITS ---
PROCEDURE INFORMATION: Exam: XR Right Foot Exam date and time: 05/18/2024 1:08 PM Age: 49 years old Clinical indication: Pain; Foot; Right TECHNIQUE: Imaging protocol: Radiologic exam of the right foot. Views: 3 or more views. COMPARISON: MR LOWER JOINT RT WO 12/14/2020 2:16 PM FINDINGS: Bones/joints: Bipartite medial and lateral hallux sesamoids. Mild degenerative disease of the 1st metatarsophalangeal joint. Os navicularis. The plantar arch is preserved. Tiny Achilles enthesophyte. No ankle joint effusion. Tiny dorsal talonavicular joint osteophytes. No acute fracture or dislocation. Soft tissues: Normal. IMPRESSION: No acute fracture or dislocation. Dictated and Authenticated by: Abisai Gurrola MD. Ordering:ELLEN Rasmussen MD
[2024-05-18 14:03] VITALS: BP 113/78; PULSE 105; RESP 18; TEMP 36.5
== END 2024-05-18 14:03 | disposition home or self-care (01) ==
PROVIDERS: Emergency Provider Nurse Practitioner Family; PCP Nurse Practitioner Family
DX: M79.671 Pain in right foot (principal)
CPT/HCPCS: 99283; 73630

== ENCOUNTER 2024-08-16 18:01 | Emergency (ER) | payer MEDICAID, SELFPAY ==
--- NOTE | 2024-08-16 17:45 | RT.EKG_ITS ---
APPROVED REPORT Exam: Resting ECG Reason for Exam: Dizziness Patient Location: E HR:74 bpm ECG Measurements Heart Rate 74 AXIS SC 202 P -14 QRSd 92 QRS 44 QT 377 T 61 QTc 419 Conclusion Sinus rhythm at a rate of 74 with wandering leads without acute ischemic change.
[2024-08-16 17:54] VITALS: BP 137/86; PULSE 72; RESP 20; TEMP 37.1; O2SAT 95
[2024-08-16 18:02] VITALS: RESP 15
--- OUTSIDE RECORDS SUMMARY | 2024-08-16 18:04 | XMS_ITS | Referral Summary ---
Author Organization [facility] Address [address] [place] [address] Care Team Providers Care Electric Motor Repairing Supervisor Name Role Phone Monica Mulligan MD Primary Care Provider [phone] Social History Tobacco Use Types Packs/Day Years Used Date Smoking Tobacco: Never Assessed Interpersonal Safety Answer Date Record ed Physically Hurt Never 03/23/2020 Verbally Threaten Not on file 03/23/2020 Sex and Gender Information Value Date Recorded Sex Assigned at Not on file Legal Sex Male 5:49 EDT Gender Identity Not on file Sexual Orientation [...] Negative 02/19/2020 11:[address] [facility] Blood VENOUS BLOOD / Unknown 02/18/2020 13:47 EDT 02/18/2020 20:44 EDT us Provider Outr Resulting Lab CHEMISTRY & BLOOD GA S ORDERABLES Final Result [facility] [address] [place] [address] from Last 3 Months or Most Recently Relevant to Health Maintenance Insurance MEDICAID ACO [place] Care Teams Electric Motor Repairing Supervisor Relationship Specialty Start Date End Date Monica Mulligan MD [address] [place] [phone] PCP - General 11/29/16
--- OUTSIDE RECORDS SUMMARY | 2024-08-16 18:04 | XMS_ITS | Encounter Summary ---
Author Organization [facility] Address [address] [place] [address] Care Team Providers Care Hammerer Name Role Phone Monica Mulligan MD Primary Care Provider [phone] Encounter Details Date Type Department Care Team ([facility] Contact Info) Description 02/18/2020 Lab Requisition [facility] Pathology & Laboratory Medicine - [facility] [address] [place], [place] [address] Outr Resulting Lab, Provider Social History Tobacco [...] 13:47 EDT) Hold Hold 02/18/2020 21:45 EDT [facility] Blood VENOUS BLOOD / Unknown 02/18/2020 13:47 EDT 02/18/2020 20:44 EDT us Provider Outr Resulting Lab LAB INFO SERVICE AND SUPPORT & PHONE RESULT Final Result Performing Organization Address City/[facility]/ZIP Co de Phone Number [facility] [address] [place] [address] * HEPATITIS B SURFACE ANTIBODY (02/18/2020 13:47 EDT) Hep B Surface Ab, Quantitative <3.1 See Note mIU/mL 02/19/2020 11:14 EDT [facility] Comment: Reference Range for Hep B Surface Ab, Quant: Positive: >= 10.0 mIU/mL Negative: ??< 10.0 mIU/mL Patient is presumed to not be immune to infection with Hepatitis B Virus. Hep B Surface Ab, Qualitative Negative See Note 02/19/2020 11:14 EDT [facility] Comment: Reference Range for Hep B Surface Ab, Qual: Unvaccinated: ??Negative Vaccinated: ??Positive Blood VENOUS BLOOD / Unknown 02/18/2020 13:47 EDT 02/18/2020 20:44 EDT us Provider Outr Resulting Lab CHEMISTRY & BLOOD GA S ORDERABLES Final Result Performing Organization Address [facility]/ZIP Co de Phone Number [facility] [address] [place] [address] * HEPATITIS B SURFACE ANTIGEN (02/18/2020 13:47 EDT) Hep B Surface Ag Negative Negative 02/19/2020 11:12 EDT [facility] Blood VENOUS BLOOD / Unknown 02/18/2020 13:47 EDT 02/18/2020 20:44 EDT us Provider Outr Resulting Lab CHEMISTRY & BLOOD GA S ORDERABLES Final Result Performing Organization Address [facility] Co de Phone Number [facility] [address] [place] [address] * HEPATITIS C AB W REFLEX TO HCV RNA BY PCR (02/18/2020 13:47 EDT) Hep C Antibody Negative Negative 02/19/2020 11:53 EDT [facility] Blood VENOUS BLOOD / Unknown 02/18/2020 13:47 EDT 02/18/2020 20:44 EDT us Provider Outr Resulting Lab CHEMISTRY & BLOOD GA S ORDERABLES Final Result [facility] [address] [place] [address] documented in this encounter Visit Diagnoses Not on filedocumented in this encounter Additional Health Concerns Infection Onset Date Last Indicated Resolved Time R/O COVID-19 02/20/2020 02/20/2020 02/25/2020 22:1 7 EDT documented as of this encounter Care Teams Hammerer Relationship Specialty Start Date End Date Monica Mulligan MD [address] [place] [address] [phone] PCP - General 11/29/16 documented as of this encounter
--- OUTSIDE RECORDS SUMMARY | 2024-08-16 18:04 | XMS_ITS | Encounter Summary ---
Author Organization [facility] Address [address] [place] [address] Care Team Providers Care Investigator Cash Shortage Name Role Phone Unknown, Provider Primary Care Provider Unava ilable Encounter Details Date Type Department Care Team (Late st Contact Info) Description 11/25/2016 Results Only [facility]- [facility] [phone] Jackie Marin, DO [address] [place] [phone] Social History Tobacco Use Types [...] reading/interpret ing unformatted reports. Name: ? PARSONPAUL Taj ? Accession #: ? [id number] ? : ? 1975 (Age: 41) ??M [...] cyst is filled with laminated orthokeratin. ??(Dr. Dumont)/[facility] Document reviewed and electronically [...] Camilo 11/26/2016 9:58 AM End of Report [facility] 11/25/2016 5:50 EDT 11/26/2016 5:50 EDT us Jackie Marin DO PATHOLOGY ORDERABLES Final Res ult [facility] [address] [place] [address] documented in this encounter Visit Diagnoses Not on filedocumented in this encounter Care Teams Investigator Cash Shortage Relationship Specialty Start Date End Date Unknown, Provider, PCP - General 11/26/16 11/28/16 documented as of this encounter
--- OUTSIDE RECORDS SUMMARY | 2024-08-16 18:04 | XMS_ITS | Encounter Summary ---
Author Organization [facility] Address [address] [place] [address] Care Team Providers Care Police Chief Name Role Phone Monica Mulligan MD Primary Care Provider [phone] Encounter Details Date Type Department Care Team ([facility] Contact Info) Description 02/20/2020 Lab Requisition [facility] Pathology & Laboratory Medicine - [place] [address] [place], [place] [address] Outr Resulting Lab, Provider Social History Tobacco [...] Comments ZZCOVID-19 TEST [facility] PCR Today 02/20/2020 22:10 EDT COVID-19 TESTING Routine 02/20/2020 22:1 0 EDT documented in this encounter Results * COVID-19 TEST [facility] PCR (02/20/2020 22:10 EDT) Swab ENTIRE NASOPHARYNX / Unknown 02/20/2020 22:10 EDT 02/21/2020 8:37 EDT us Provider Outr Resulting Lab MICROBIOLOGY - GENER AL ORDERABLES Final Result [facility] [address] [place] [address] * COVID-19 TESTING (02/20/2020 22:10 EDT) COVID-19 rt-PCR Result Negative Negative 02/21/2020 12:52 EDT [facility] Comment: This test has not [...] history, and epidemiological information. Performed on the Cylande instrument Performing Lab [place] [facility] 02/21/2020 12:52 EDT [facility] Swab 02/20/2020 22:1 0 EDT 02/21/2020 8:37 EDT us Provider Outr Resulting Lab MICROBIOLOGY - GENER AL ORDERABLES Final Result [facility] [address] [place] [address] documented in this encounter Visit Diagnoses Not on filedocumented in this encounter Additional Health Concerns Infection Onset Date Last Indicated Resolved Time R/O COVID-19 02/20/2020 02/20/2020 02/25/2020 22:1 7 EDT documented as of this encounter Care Teams Police Chief Relationship Specialty Start Date End Date Monica Mulligan MD [address] [place] [phone] PCP - General 11/29/16 documented as of this encounter
--- OUTSIDE RECORDS SUMMARY | 2024-08-16 18:04 | XMS_ITS | Encounter Summary ---
Author Organization [facility] Address [address] [place] [address] Care Team Providers Care Clerical Supervisor Name Role Phone Unavailable Primary Care Provider Unavailabl e Encounter Details Date Type Department Care Team (Latest Contact Info) Description 11/25/2016 6:49 EDT - 11/25/2016 23:59 EDT Hospital Encounter [address] [address] Unknown, Provider, MD Discharge Disposition: Home or Self Care Social History Tobacco Use Types Packs/Day Years Used Date Smoking Tobacco: Never Assessed Sex and Gender Information Value Date Recorded Sex Assigned at Not on file Legal Sex Male 5:49 EDT Gender Identity Not on file Sexual Orientation Not on file documented as of this encounter Discharge Disposition Disposition Code Departure Means Destination Home or Self Skilled Nursing documented in this encounter Plan of Treatment Not on file documented as of this encounter Visit Diagnoses Not on filedocumented in this encounter
--- OUTSIDE RECORDS SUMMARY | 2024-08-16 18:04 | XMS_ITS | Encounter Summary ---
Author Organization [facility] Address [address] [place] [address] Care Team Providers Care Service Coordinator Name Role Phone Monica Mulligan MD Primary Care Provider [phone] Encounter Details Date Type Department Care Team ([facility] Contact Info) Description 04/09/2020 Lab Requisition [facility] Pathology & Laboratory Medicine - [facility] [address] [place], [place] [address] Outr Resulting Lab, Provider Social History Tobacco [...] Unknown 04/09/2020 12:55 EDT 04/09/2020 15:36 EDT us Provider Outr Resulting Lab MICROBIOLOGY - GENER AL ORDERABLES Final Result [facility] [address] [place] [address] * COVID-19 TESTING (04/09/2020 12:55 EDT) COVID-19 rt-PCR Result Negative Negative 04/09/2020 19:41 EDT [facility] Comment: This test has [...] history, and epidemiological information. Performed on the Tapjoyher Fusion instrument Performing Lab [place] [facility] 04/09/2020 19:41 EDT [facility] Swab 04/09/2020 12:5 5 EDT 04/09/2020 15:36 EDT us Provider Outr Resulting Lab MICROBIOLOGY - GENER AL ORDERABLES Final Result [facility] [address] [place] [address] documented in this encounter Visit Diagnoses Not on filedocumented in this encounter Care Teams Service Coordinator Relationship Specialty Start Date End Date Monica Mulligan MD [address] [place] [phone] PCP - General 11/29/16 documented as of this encounter
--- OUTSIDE RECORDS SUMMARY | 2024-08-16 18:04 | XMS_ITS | Encounter Summary ---
Author Organization [facility] Address [address] [place] [address] Care Team Providers Care Lead Data Entry Operator Name Role Phone Monica Mulligan MD Primary Care Provider [phone] Encounter Details Date Type Department Care Team ([facility] st Contact Info) Description 07/27/2021 Lab Requisition [facility] Pathology & Laboratory Medicine - [facility] [address] [place] [address] Bao Sharpe Jr., MD [address] [place] [address] Encounter for other general examination [...] explore management options, if applicable. 08/04/2021 9:08 [facility] Final Diagnosis A. BONE, RIGHT FEMORAL HEAD, RESECTION: - Femoral head with osteoarthritis. 08/04/2021 9:08 [facility] Attestation There was significant resident/fellow involvement in the diagnostic evaluation of this case. By the signature below, the attending physician certifies that they have personally conducted a gross and/or microscopic examination of the described specimens and rendered or confirmed the above diagnosis. 08/04/2021 9:08 [facility] at 0908 Clinical History Encounter for other general examination; avascular necrosis of (R) femoral head 08/04/2021 9:08 [facility] Gross Description A. Received [...] cartilage ranges averages 0.1 cm in thickness. Utilities Ground Worker sections are submitted for acid decalcification as follows: BLOCK HOLDEN A1-A2- Five loan representative sections including neck and articular surface ELSY DEMPSEY([facility]) 07/28/2021 10:12 08/04/2021 9:08 [facility] Resident/Arturo w: Manolo Portillo MD 08/04/2021 9:08 [facility] Performing Lab [facility] 9:08 [facility] Scanned Images 08/04/2021 9:08 [facility] Tissue SPECIMEN FROM BONE / Unknown 07/27/2021 10:20 EST 07/27/2021 22:10 EST us Bao Sharpe Jr., MD PATHOLOGY ORDER BERNARD Final Result [facility] [address] [place] [address] documented in this encounter Visit Diagnoses Diagnosis Encounter for other general examination documented in this encounter Care Teams Lead Data Entry Operator Relationship Specialty Start Date End Date Monica Mulligan MD [address] [place] [address] [phone] PCP - General 11/29/16 documented as of this encounter
--- OUTSIDE RECORDS SUMMARY | 2024-08-16 18:04 | XMS_ITS | Clinical Summary ---
Author Organization [facility] Address [address] [place] [address] Care Team Providers Care Manager Social Responsibility Name Role Phone Monica Mulligan MD Primary Care Provider [phone] Social History Tobacco Use Types Packs/Day Years [...] 3-dose series) 03/15 COVID-19 Vaccine ( season) 2024 Hepatitis C Screen Completed 02/18/2020 Procedures Procedure Name Priority Date/Time Associated Diagnosis Comments HEPATITIS C AB W REFLEX TO HCV RNA BY PCR Today 02/18/2020 13:47 EDT from Last 3 Months or Most Recently Relevant to Health Maintenance Results * HEPATITIS C AB W REFLEX TO HCV RNA BY PCR (02/18/2020 13:47 EDT) Hep C Antibody Negative Negative 02/19/2020 11:53 EDT [facility] Blood VENOUS BLOOD / Unknown 02/18/2020 13:47 EDT 02/18/2020 20:44 EDT us Provider Outr Resulting Lab CHEMISTRY & BLOOD GA S ORDERABLES Final Result [facility] [address] [place] [address] from Last 3 Months or Most Recently Relevant to Health Maintenance Insurance MEDICAID ACO [place] Care Teams Manager Social Responsibility Relationship Specialty Start Date End Date Monica Mulligan MD [address] [place] [address] [phone] PCP - General 11/29/16
--- OUTSIDE RECORDS SUMMARY | 2024-08-16 18:04 | XMS_ITS | Encounter Summary ---
Author Organization [facility] Address [address] [place] [address] Care Team Providers Care Elevator Service Mechanic Name Role Phone Monica Mulligan MD Primary Care Provider [phone] Encounter Details Date Type Department Care Team ([facility] Contact Info) Description 01/03/2022 Lab Requisition [facility] Pathology & Laboratory Medicine - [facility] [address] [place], [place] [address] Outr Resulting Lab, Provider Social History Tobacco [...] Lyme Ab Negative Negative 01/04/2022 10:[address] [facility] Blood VENOUS BLOOD / Unknown 01/03/2022 9:13 EDT 01/03/2022 17:09 EDT us Provider Outr Resulting Lab IMMUNOLOGY AND SEROL OGY ORDERABLES Final Result [facility] [address] [place] [address] documented in this encounter Visit Diagnoses Not on filedocumented in this encounter Care Teams Elevator Service Mechanic Relationship Specialty Start Date End Date Monica Mulligan MD [address] [place] [phone] PCP - General 11/29/16 documented as of this encounter
--- NOTE | 2024-08-16 18:31 | ED.GENADUL_ITS ---
Discharge Plan Disposition Patient Disposition: Eloped Condition: Stable Discharge Details Chief Complaint: Dizzy/Sync Clinical Impression: Dizziness Primary Care Provider: OWEN GARRISON ED Provider: Madeline Samayoa Home Meds and New Rx's Prescriptions: No Action meclizine 25 mg tablet 25 mg PO TID PRN (Reason: dizziness) Qty: 30 0RF acetaminophen 500 mg capsule 1,000 mg PO Q6H PRN HPI General Date/Time Provider Initiated Documentation: 08/16/24 18:11 . HPI Narrative: The patient is a 49-year-old male with a history of alcohol abuse who comes emergency department for dizziness. The patient reports that sometime this morning he looked up and then suddenly felt dizzy. Reports it is not that the room spinning but things are twitching around him. Reports he has had this on and off for years and in fact he sees his primary care doctor regarding this but has not done anything about it. Reports that prior to this he did not have much of an appetite so he has not had anything to eat but did admit to drinking 2 Buzzballz this morning. Denies any recent fall, trauma or injury. Denies any headache with this. Denies any nausea or vomiting or changes in bowel habits. Denies any recent fever, cough, chest pain or shortness of breath. Reports he is currently not on any medications. Denies any upper respiratory illness symptoms also. Related Data Home Medications ?Medication ?Instructions ?Recorded ?Confirmed meclizine 25 mg tablet 25 mg PO TID PRN dizziness #30 tabs 04/22/24 05/18/24 acetaminophen 500 mg capsule 1,000 mg PO Q6H PRN 05/18/24 05/18/24 Previous Rx's ?Medication ?Instructions ?Recorded meclizine 25 mg tablet 25 mg PO TID PRN dizziness #30 tabs 04/22/24 Allergies Allergy/AdvReac Type Severity Reaction Status Date / Time hydromorphone (From Dilaudid) AdvReac Intermediate Other (See Verified 05/18/24 12:48 Comment) General Stated Complaint: Dizzy/Sync SARAH: 3 Review of Systems Narrative: Review of systems are negative except as mentioned. Constitutional Constitutional: Denies headache(s) Eyes Comments: Denies any vision changes. ENT Ears, Nose, Mouth, and Throat: Reports dizziness and Denies headache(s) Comments: Denies any upper respiratory illness symptoms and denies ringing in the ears. Cardiovascular Cardiovascular: Denies chest pain and Denies dyspnea Respiratory Respiratory: Denies cough and Denies dyspnea Gastrointestinal Gastrointestinal: Denies abdominal pain, Denies change in stool character and Denies vomiting Neurologic Neurologic: Reports dizziness and Denies headache(s) Exam Const Orientation: alert, awake and oriented x3 Eyes Other: Pupils are round, equal and reactive. Patient has no nystagmus noted. Resp Auscultation: clear to auscultation bilaterally Cardio Rate: regular rate Rhythm: regular rhythm Other: The patient has equal radial pulses. GI Palpation: nontender Auscultation: normal bowel sounds Neuro General: patient alert, patient awake and patient oriented x3 Other: The patient is alert, awake and oriented x 3. His speech is clear. He has no facial asymmetry. Patient has equal strength and sensation to bilateral upper and lower extremities in all dermatomal distribution. Patient has no limb ataxia. He has no truncal ataxia. NIH stroke scale score is 0 at 1810. HINTS testing is within normal limits. Course Vital Signs Vital signs: Vital Signs Temperature 37.1 C 08/16/24 17:54 Pulse 72 08/16/24 17:54 Respiratory Rate 20 08/16/24 17:54 Blood Pressure 137/86 08/16/24 17:54 Pulse Oximetry 95 08/16/24 17:54 Temperature 37.1 C 08/16/24 17:54 Pulse 72 08/16/24 17:54 Respiratory Rate 15 08/16/24 18:02 Respiratory Effort Normal 08/16/24 18:02 Respiratory Depth Normal 08/16/24 18:02 Respiratory Pattern Normal 08/16/24 18:02 Blood Pressure 137/86 08/16/24 17:54 Blood Pressure Position Sitting 08/16/24 17:54 Pulse Oximetry 95 08/16/24 17:54 Oxygen Delivery Method Room Air 08/16/24 17:54 Oxygen Flow Rate 0 08/16/24 17:54 Medical Decision Making The patient has no focal deficit on exam which is reassuring. I told the patient of plan for oral medication and period of observation however he reports that he is not feeling as dizzy now and he is quite ready to go home. He requested that I call [facility]. The patient had subsequently called [facility] on his own for a ride. Curt SIMEON called the homeless intermediate but they were not able to give us information whether or not they will allow him to go back to the homeless intermediate. At this point the patient had eloped. ECG Data Attestation: I personally reviewed and interpreted this ECG (s) as follows: (Sinus rhythm at a rate of 74 with wandering leads without acute ischemic change) Quality:SDOH Health Related Social Needs: Health related social needs housing instability, house d, with risk of homelessness(Z59.811) Health related social needs details Has mold in his ap artment, would be interested in trust and estates paralegal resources for tenant rights [facility] All Active Problems (Updated 08/16/24 @ 18:52 by Madeline Samayoa DO) Dizziness (Acute) Alcohol withdrawal (Acute) Fever (Acute) Nicotine addiction (Acute) Gastroenteritis (Acute) Gastritis (Acute) Alcoholic pancreatitis (Acute) Trochanteric bursitis, right hip (Acute) Avascular necrosis of bone of left hip (Acute) Chest pain (Acute) due to ETOH Hepatic steatosis (Acute) COVID-19 ruled out (Acute) Tobacco abuse (Acute) Impairment of balance (Acute) Chronic vertigo (Acute) Electrolyte and fluid disorder (Acute) Medical History On deep vein thrombosis (DVT) prophylaxis Surgical History 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) Cyst of right upper eyelid Family History Maternal Grandfather Alcohol abuse Maternal Uncle Alcohol abuse Social History Smoking/Tobacco Use Status: Current every day Tobacco Type: cigarettes Years smoked: 25 Smoking risk assessment performed?: Yes Alcohol Intake: current Alcohol Intake frequency: 0-2 drinks per day Alcohol type: beer and hard liquor Details: last drink was 2 weeks ago Drug use: Never Substance use type: does not use Housing: 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 PAWSS Have you Been Recently Intoxicated or Drunk Within the Last 30 days?: No Have you Ever Experienced Previous Episodes of Alcohol Withdrawal?: No Have you ever Experienced Withdrawal Seizures?: No Have you ever Experienced Delirium Tremens(DT)s?: No Have you ever undergone Alcohol Rehabilitation Treatment (i.e, inpt ot outpatient treatment programs)?: No Have you ever Experienced Blackouts?: No Have you ever Combined Alcohol with other Downers within the last 90 days?: No Have you ever Combined Alcohol with any other Substance of Abuse during the last 90 days?: No Positive Blood Alcohol level on Presentation? [PCS.BAL]: No Evidence of Increased Autonomic Activity (i.e. HR>120, tremor, sweating, agitation, nausea)?: No Result: 0
[2024-08-16 18:42] VITALS: BP 137/86; PULSE 72; TEMP 37.1; O2SAT 95
== END 2024-08-16 18:52 | disposition left against medical advice (07) ==
PROVIDERS: Emergency Provider Emergency Medicine; PCP Nurse Practitioner Family
DX: R42 Dizziness and giddiness (principal); F10.10 Alcohol abuse, uncomplicated; F17.210 Nicotine dependence, cigarettes, uncomplicated; Z59.00 Homelessness unspecified; Z53.29 Procedure and treatment not carried out because of patient's decision for other reasons
CPT/HCPCS: 93005; 99283; 93010

== ENCOUNTER 2024-08-18 07:07 | Inpatient (IN) | payer MEDICAID, SELFPAY ==
[2024-08-18] VITALS (58 sets, daily range): BP systolic 67–158; BP diastolic 53–108; PULSE 53–85; RESP 11–23; TEMP 36.5–36.8; O2SAT 95–100
--- NOTE | 2024-08-18 07:00 | RT.EKG_ITS ---
APPROVED REPORT Exam: Resting ECG Reason for Exam: Chest Pain Patient Location: E HR:65 bpm ECG Measurements Heart Rate 65 AXIS CO 183 P -11 QRSd 90 QRS 63 QT 397 T 62 QTc 415 Conclusion Sinus rhythm...normal P axis, V-rate 60- 99 Consider left ventricular hypertrophy...(S V1+R V5/V6) >3.50mV ST elev, probable normal early repol pattern...ST elevation, age<55
--- NOTE | 2024-08-18 07:15 | DI.RAD_ITS ---
Exam(s) XR CHEST 2V PA LATERAL EXAM: XR CHEST 2V PA LATERAL CLINICAL HISTORY: chest pain TECHNIQUE: 2D digital imaging was performed. Two views. COMPARISON: CR,XR XR CHEST 2V PA LATERAL from 04/18/2024 FINDINGS: HEART: Normal size. Aorta: Not dilated. PULMONARY VASCULATURE: Normal. MEDIASTINUM: Unremarkable. LUNGS: Clear. PLEURAL SPACE: No pleural effusion or pneumothorax. BONE:Unremarkable for age. SOFT TISSUES: Unremarkable. IMPRESSION: No acute abnormality. DATA REPOSITORY: RADIATION DOSE DELIVERED:
--- OUTSIDE RECORDS SUMMARY | 2024-08-18 07:28 | XMS_ITS | Encounter Summary ---
Author Organization [facility] Address [address] [place] [address] Care Team Providers Care Reference Data Expert Name Role Phone Monica Mulligan MD Primary Care Provider [phone] Encounter Details Date Type Department Care Team ([facility] Contact Info) Description 01/03/2022 Lab Requisition [facility] Pathology & Laboratory Medicine - [facility] [address] [place], [place] [id number] Outr Resulting Lab, Provider Social History Tobacco [...] Lyme Ab Negative Negative 01/04/2022 10:17 EDT [facility] Blood VENOUS BLOOD / Unknown 01/03/2022 9:13 EDT 01/03/2022 17:09 EDT us Provider Outr Resulting Lab IMMUNOLOGY AND SEROL OGY ORDERABLES Final Result [facility] [address] [place] [address] documented in this encounter Visit Diagnoses Not on filedocumented in this encounter Care Teams Reference Data Expert Relationship Specialty Start Date End Date Monica Mulligan MD [address] [place] [phone] PCP - General 11/29/16 documented as of this encounter
--- OUTSIDE RECORDS SUMMARY | 2024-08-18 07:28 | XMS_ITS | Clinical Summary ---
Author Organization [facility] Address [address] [place] [id number] Care Team Providers Care Financial Brokers Name Role Phone Monica Mulligan MD Primary Care Provider [phone] Social History Tobacco Use Types Packs/Day Years [...] C Antibody Negative Negative 02/19/2020 11:53 EDT [facility] Blood VENOUS BLOOD / Unknown 02/18/2020 13:47 EDT 02/18/2020 20:44 EDT us Provider Outr Resulting Lab CHEMISTRY & BLOOD GA S ORDERABLES Final Result [facility] [address] [place] [address] from Last 3 Months or Most Recently Relevant to Health Maintenance Insurance MEDICAID ACO [place] Care Teams Financial Brokers Relationship Specialty Start Date End Date Monica Mulligan MD [address] [place] [phone] PCP - General 11/29/16
--- OUTSIDE RECORDS SUMMARY | 2024-08-18 07:28 | XMS_ITS | Encounter Summary ---
Author Organization [facility] Address [address] [place] [address] Care Team Providers Care Outside Machinist Supervisor Name Role Phone Monica Mulligan MD Primary Care Provider [phone] Encounter Details Date Type Department Care Team ([facility] st Contact Info) Description 07/27/2021 Lab Requisition [facility] Pathology & Laboratory Medicine - [facility] [address] [place] [address] Bao Sharpe Jr., MD [address] [place] [phone] Encounter for other general examination [...] explore management options, if applicable. 08/04/2021 9:08 [facility] Final Diagnosis A. BONE, RIGHT FEMORAL HEAD, RESECTION: - Femoral head with osteoarthritis. 08/04/2021 9:08 [facility] Attestation There was significant resident/fellow involvement in the diagnostic evaluation of this case. By the signature below, the attending physician certifies that they have personally conducted a gross and/or microscopic examination of the described specimens and rendered or confirmed the above diagnosis. 08/04/2021 9:08 [facility] at 0908 Clinical History Encounter for other general examination; avascular necrosis of (R) femoral head 08/04/2021 9:08 [facility] Gross Description A. Received [...] cartilage ranges averages 0.1 cm in thickness. Integration Assistant sections are submitted for acid decalcification as follows: BLOCK HOLDEN A1-A2- Five route sales representative sections including neck and articular surface ELSY DEMPSEY([facility]) 07/28/2021 10:12 08/04/2021 9:08 [facility] Resident/Arturo w: Manolo Portillo MD 08/04/2021 9:08 [facility] Performing Lab [facility] 9:08 [facility] Scanned Images 08/04/2021 9:08 [facility] Tissue SPECIMEN FROM BONE / Unknown 07/27/2021 10:20 EST 07/27/2021 22:10 EST us Bao Sharpe Jr., MD PATHOLOGY ORDER BERNARD Final Result [facility] [address] [place] [address] documented in this encounter Visit Diagnoses Diagnosis Encounter for other general examination documented in this encounter Care Teams Outside Machinist Supervisor Relationship Specialty Start Date End Date Monica Mulligan MD [address] [place] [address] [phone] PCP - General 11/29/16 documented as of this encounter
--- OUTSIDE RECORDS SUMMARY | 2024-08-18 07:28 | XMS_ITS | Encounter Summary ---
Author Organization [facility] Address [address] [place] [address] Care Team Providers Care Drop Forger Name Role Phone Monica Mulligan MD Primary Care Provider [phone] Encounter Details Date Type Department Care Team ([facility] Contact Info) Description 04/09/2020 Lab Requisition [facility] Pathology & Laboratory Medicine - [facility] [address] [place], [place] [address] Outr Resulting Lab, Provider Social History Tobacco [...] MICROBIOLOGY - GENER AL ORDERABLES Final Result [facility] [address] [place] [address] * COVID-19 TESTING (04/09/2020 12:55 EDT) COVID-19 rt-PCR Result Negative Negative 04/09/2020 19:41 EDT [facility] Comment: This test has [...] history, and epidemiological information. Performed on the [employer] Fusion instrument Performing Lab [place] [facility] 04/09/2020 19:41 EDT [facility] Swab 04/09/2020 12:5 5 EDT 04/09/2020 15:36 EDT us Provider Outr Resulting Lab MICROBIOLOGY - GENER AL ORDERABLES Final Result [facility] [address] [place] [address] documented in this encounter Visit Diagnoses Not on filedocumented in this encounter Care Teams Drop Forger Relationship Specialty Start Date End Date Monica Mulligan MD [address] [place] [phone] PCP - General 11/29/16 documented as of this encounter
--- OUTSIDE RECORDS SUMMARY | 2024-08-18 07:28 | XMS_ITS | Encounter Summary ---
Author Organization [facility] Address [address] [place] [address] Care Team Providers Care Internal Controls Manager Name Role Phone Unavailable Primary Care Provider Unavailabl e Encounter Details Date Type Department Care Team (Latest Contact Info) Description 11/25/2016 6:49 EDT - 11/25/2016 23:59 EDT Hospital Encounter [address] [address] Unknown, Provider, MD Discharge Disposition: Home or [...] Code Departure Means Destination Home or Self Fpc documented in this encounter Plan of Treatment Not on file documented as of this encounter Visit Diagnoses Not on filedocumented in this encounter
--- OUTSIDE RECORDS SUMMARY | 2024-08-18 07:28 | XMS_ITS | Encounter Summary ---
Author Organization [facility] Address [address] [place] [address] Care Team Providers Care Planning Engineer Name Role Phone Unknown, Provider Primary Care Provider Unava ilable Encounter Details Date Type Department Care Team (Late st Contact Info) Description 11/25/2016 Results Only [facility] [phone] Jackie Marin, DO [address] [place] [phone] Social History Tobacco Use Types [...] ? PARSONPAUL Taj ? Accession #: ? [id number] ? : ? 1975 (Age: 41) ??M [...] cyst is filled with laminated orthokeratin. ??(Dr. Dumont)/[facility] Document reviewed and electronically signed by: [...] Camilo 11/26/2016 9:58 AM End of Report [facility] 11/25/2016 5:50 EDT 11/26/2016 5:50 EDT us Jackie Marin DO PATHOLOGY ORDERABLES Final Res ult [facility] [address] [place] [address] documented in this encounter Visit Diagnoses Not on filedocumented in this encounter Care Teams Planning Engineer Relationship Specialty Start Date End Date Unknown, Provider, PCP - General 11/26/16 11/28/16 documented as of this encounter
--- OUTSIDE RECORDS SUMMARY | 2024-08-18 07:28 | XMS_ITS | Encounter Summary ---
Author Organization [facility] Address [address] [place] [address] Care Team Providers Care Transformation Consultant Name Role Phone Monica Mulligan MD Primary Care Provider [phone] Encounter Details Date Type Department Care Team ([facility] Contact Info) Description 02/20/2020 Lab Requisition [facility] Pathology & Laboratory Medicine - [facility] [address] [place], [place] [address] Outr Resulting Lab, Provider Social History Tobacco [...] MICROBIOLOGY - GENER AL ORDERABLES Final Result [facility] [address] [place] [address] * COVID-19 TESTING (02/20/2020 22:10 EDT) COVID-19 rt-PCR Result Negative Negative 02/21/2020 12:52 EDT [facility] Comment: This test [...] history, and epidemiological information. Performed on the [employer] instrument Performing Lab [place] [facility] Lab 02/21/2020 12:52 EDT [facility] Swab 02/20/2020 22:1 0 EDT 02/21/2020 8:37 EDT us Provider Outr Resulting Lab MICROBIOLOGY - GENER AL ORDERABLES Final Result [facility] [address] [place] [address] documented in this encounter Visit Diagnoses Not on filedocumented in this encounter Additional Health Concerns Infection Onset Date Last Indicated Resolved Time R/O COVID-19 02/20/2020 02/20/2020 02/25/2020 22:1 7 EDT documented as of this encounter Care Teams Transformation Consultant Relationship Specialty Start Date End Date Monica Mulligan MD [address] [place] [phone] PCP - General 11/29/16 documented as of this encounter
--- OUTSIDE RECORDS SUMMARY | 2024-08-18 07:28 | XMS_ITS | Encounter Summary ---
Author Organization [facility] Address [address] [place] [address] Care Team Providers Care Promotor Group Ticket Sales Name Role Phone Monica Mulligan MD Primary Care Provider [phone] Encounter Details Date Type Department Care Team ([facility] Contact Info) Description 02/18/2020 Lab Requisition [facility] Pathology & Laboratory Medicine - [facility] [address] [place], [place] [address] Outr Resulting Lab, Provider Social History Tobacco [...] 13:47 EDT) Hold Hold 02/18/2020 21:45 EDT [facility] Blood VENOUS BLOOD / Unknown 02/18/2020 13:47 EDT 02/18/2020 20:44 EDT us Provider Outr Resulting Lab LAB INFO SERVICE AND SUPPORT & PHONE RESULT Final Result Performing Organization Address City/[facility]/ZIP Co de Phone Number [facility] [address] [place] [address] * HEPATITIS B SURFACE ANTIBODY (02/18/2020 13:47 EDT) Hep B Surface Ab, Quantitative <3.1 See Note mIU/mL 02/19/2020 11:14 EDT [facility] Comment: Reference Range for Hep B Surface Ab, Quant: Positive: >= 10.0 mIU/mL Negative: ??< 10.0 mIU/mL Patient is presumed to not be immune to infection with Hepatitis B Virus. Hep B Surface Ab, Qualitative Negative See Note 02/19/2020 11:14 EDT [facility] Comment: Reference Range for Hep B Surface Ab, Qual: Unvaccinated: ??Negative Vaccinated: ??Positive Blood VENOUS BLOOD / Unknown 02/18/2020 13:47 EDT 02/18/2020 20:44 EDT us Provider Outr Resulting Lab CHEMISTRY & BLOOD GA S ORDERABLES Final Result Performing Organization Address [facility]/ZIP Co de Phone Number [facility] [address] [place] [phone] * HEPATITIS B SURFACE ANTIGEN (02/18/2020 13:47 EDT) Hep B Surface Ag Negative Negative 02/19/2020 11:12 EDT [facility] Blood VENOUS BLOOD / Unknown 02/18/2020 13:47 EDT 02/18/2020 20:44 EDT us Provider Outr Resulting Lab CHEMISTRY & BLOOD GA S ORDERABLES Final Result Performing Organization Address [facility] Co de Phone Number [facility] [address] [place] [address] * HEPATITIS C AB W REFLEX TO HCV RNA BY PCR (02/18/2020 13:47 EDT) Hep C Antibody Negative Negative 02/19/2020 11:53 EDT [facility] Blood VENOUS BLOOD / Unknown 02/18/2020 13:47 EDT 02/18/2020 20:44 EDT us Provider Outr Resulting Lab CHEMISTRY & BLOOD GA S ORDERABLES Final Result [facility] [address] [place] [address] documented in this encounter Visit Diagnoses Not on filedocumented in this encounter Additional Health Concerns Infection Onset Date Last Indicated Resolved Time R/O COVID-19 02/20/2020 02/20/2020 02/25/2020 22:1 7 EDT documented as of this encounter Care Teams Promotor Group Ticket Sales Relationship Specialty Start Date End Date Monica Mulligan MD [address] [place] [phone] PCP - General 11/29/16 documented as of this encounter
--- OUTSIDE RECORDS SUMMARY | 2024-08-18 07:28 | XMS_ITS | Referral Summary ---
Author Organization [facility] Address [address] [place] [address] Care Team Providers Care Wax Pattern Repairer Name Role Phone Monica Mulligan MD Primary Care Provider [phone] Social History Tobacco Use Types Packs/Day Years [...] C Antibody Negative Negative 02/19/2020 11:53 EDT [facility] Blood VENOUS BLOOD / Unknown 02/18/2020 13:47 EDT 02/18/2020 20:44 EDT us Provider Outr Resulting Lab CHEMISTRY & BLOOD GA S ORDERABLES Final Result [facility] [address] [place] [address] from Last 3 Months or Most Recently Relevant to Health Maintenance Insurance MEDICAID ACO [place] Care Teams Wax Pattern Repairer Relationship Specialty Start Date End Date Monica Mulligan MD [address] [place] [phone] PCP - General 11/29/16
[2024-08-18 07:30] LABS: Abs Immature Grans 0.04 10^3/uL (0.0-0.06); Absolute Basophil Count 0.05 10^3/uL (0.0-0.2); Absolute Eosinophil Count 0.09 10^3/uL (0.0-0.7); Absolute Lymphocyte Count 2.29 10^3/uL (1.2-3.4); Absolute Monocyte Count 0.77 10^3/uL (0.1-0.8); Absolute Neutrophil Count 4.77 10^3/uL (1.2-6.7); Basophils % 0.6 %; Eosinophils % 1.1 %; HCT 40.4 % (40.0-50.0); HGB 14.5 g/dL (13.5-17.5); Immature Grans % 0.5 %; Lymphocytes % 28.6 %; MCH 32.6 pg (27.0-33.0); MCHC 35.9 % (32.0-36.0); MCV 91 fL (80-95); MPV 9.4 fL (8.0-11.0); Monocytes % 9.6 %; Neutrophils % 59.6 %; Platelet Count 194 10^3/uL (130-400); RBC 4.45 10^6/uL (4.36-5.78); RDW 11.7 % (11.8-14.1); RDW-SD 39.1 fL; WBC 8.01 10^3/uL (4.4-10.8)
--- NOTE | 2024-08-18 07:31 | ED.GENADUL_ITS ---
Discharge Plan Disposition Patient Disposition: Admit to [facility] Condition: Serious Discharge Details Chief Complaint: Abd Prob Clinical Impression: Pancreatitis, Chest pain, Pericarditis Primary Care Provider: OWEN GARRISON ED Provider: Hamilton Tavera Home Meds and New Rx's Prescriptions: No Action meclizine 25 mg tablet 25 mg PO TID PRN (Reason: dizziness) Qty: 30 0RF acetaminophen 500 mg capsule 1,000 mg PO Q6H PRN HPI General Mode of arrival: EMS . Date/Time Provider Initiated Documentation: 08/18/24 07:10 . Limitations to Documentation: no limitations . Information obtained by: patient . HPI Narrative: 49-year-old male with multiple medical problems including history of alcohol abuse, alcoholic pancreatitis, gastritis, smoker, here with chief complaint of chest pain. Patient notes pain started around 1 AM and has persisted. Pain feels sharp like a knife. Pain feels similar to pancreatitis that he had months ago. He denies associated shortness of breath. No leg swelling or calf pain. Patient did have some dizziness and was evaluated here in the emergency department few days ago?workup was nondiagnostic. Patient denies history of diabetes, hypertension, hyperlipidemia, family history of heart disease. Related Data Home Medications ?Medication ?Instructions ?Recorded ?Confirmed meclizine 25 mg tablet 25 mg PO TID PRN dizziness #30 tabs 04/22/24 08/18/24 acetaminophen 500 mg capsule 1,000 mg PO Q6H PRN 05/18/24 08/18/24 Previous Rx's ?Medication ?Instructions ?Recorded meclizine 25 mg tablet 25 mg PO TID PRN dizziness #30 tabs 04/22/24 Allergies Allergy/AdvReac Type Severity Reaction Status Date / Time hydromorphone (From Dilaudid) AdvReac Intermediate Other (See Verified 08/18/24 07:10 Comment) General Stated Complaint: Abd Prob SARAH: 3 Review of Systems All systems reviewed & are unremarkable except as noted in HPI and below Constitutional Constitutional: Denies fever(s) Cardiovascular Cardiovascular: Reports as per HPI Exam Const General: cooperative and no acute distress HENMT Mouth: moist mucous membranes Eyes Conjunctivae: normal conjunctivae Sclera: normal sclerae Neck Neck: trachea midline Resp Auscultation: clear to auscultation bilaterally, no rales, no rhonchi and no wheezes Cardio Rate: regular rate and not tachycardic Rhythm: regular rhythm GI Palpation: soft, not firm, no guarding, no masses, not rigid and tender in the LUQ (Mild) Skin General skin exam: no rashes or lesions noted Neuro General: patient alert, patient awake and tone normal Extrem General: no calf tenderness and no edema Psych Appearance: grossly normal Mental Status: mental status grossly normal Course Vital Signs Vital signs: Vital Signs Temperature 36.8 C 08/18/24 07:06 Pulse 70 08/18/24 07:06 Respiratory Rate 20 08/18/24 07:06 Blood Pressure 156/108 H 08/18/24 07:06 Pulse Oximetry 100 08/18/24 07:06 Temperature 36.8 C 08/18/24 07:06 Temperature Source Oral 08/18/24 07:06 Pulse 70 08/18/24 07:06 Respiratory Rate 20 08/18/24 07:06 Blood Pressure 156/108 H 08/18/24 07:06 Blood Pressure Position Sitting 08/18/24 07:06 Pulse Oximetry 100 08/18/24 07:06 Oxygen Delivery Method Room Air 08/18/24 07:06 Oxygen Flow Rate 0 08/18/24 07:06 Pain Level 8 08/18/24 07:06 Lab/Test Results Lab/Test Results: Laboratory Tests Range/Units 08/18/24 07:13 WBC (4.4-10.8) 10^3/uL 8.01 RBC (4.36-5.78) 10^6/uL 4.45 Hgb (13.5-17.5) g/dL 14.5 Hct (40.0-50.0) % 40.4 MCV (80-95) fL 91 MCH (27.0-33.0) pg 32.6 MCHC (32.0-36.0) % 35.9 RDW (11.8-14.1) % 11.7 L Plt Count (130-400) 10^3/uL 194 MPV (8.0-11.0) fL 9.4 Immature Gran % % 0.5 Neutrophils % % 59.6 Lymphocytes % % 28.6 Monocytes % % 9.6 Eosinophils % % 1.1 Basophils % % 0.6 Nucleated RBC % (0.0-0.3) % 0.0 Absolute Neutrophils (1.2-6.7) 10^3/uL 4.77 Absolute Lymphocytes (1.2-3.4) 10^3/uL 2.29 Absolute Monocytes (0.1-0.8) 10^3/uL 0.77 Absolute Eosinophils (0.0-0.7) 10^3/uL 0.09 Absolute Basophils (0.0-0.2) 10^3/uL 0.05 Medical Decision Making 734??49-year-old male with history of alcoholic pancreatitis, continued alcohol use, smoker, here with sharp left-sided chest pain that started around 1 AM. Patient is mildly hypertensive at 156/108. He saturating well in no respiratory distress. Initial screening EKG was reviewed and interpreted by me within 10 minutes of arrival: Sinus rhythm 65 bpm, consider LVH, ST elevation noted less than 1 mm lead to, 3, aVF, and V5 and V6: Less than 2 mm V2. Peaked appearing T waves V3- V5. These findings are new compared to recent EKG from 08/16/2024. High concern for ACS versus pericarditis versus less likely pancreatitis. EKG does not meet STEMI criteria at this time. Will give aspirin and nitroglycerin. --Chest x-ray was reviewed and interpreted by me: No acute cardiopulmonary process. Official radiology read pending. 912 --initial troponin negative. Delta troponin negative. Would expect elevation of troponin at this point if ACS. Suspect pericarditis. Labs reviewed and lipase is elevated and consistent with pancreatitis. Plan to hospitalize for further diagnostic workup and treatment. I spoke with Dr. Zelaya, on-call hospitalist, discussed ED presentation course, he will admit the patient. Abdominal ultrasound pending at time of admission. Chest x-ray read pending. Lab Data Lab results reviewed: Yes I reviewed the patient's lab results. Labs: Laboratory Tests Range/Units 08/18/24 08/18/24 07:13 08:09 WBC (4.4-10.8) 10^3/uL 8.01 RBC (4.36-5.78) 10^6/uL 4.45 Hgb (13.5-17.5) g/dL 14.5 Hct (40.0-50.0) % 40.4 MCV (80-95) fL 91 MCH (27.0-33.0) pg 32.6 MCHC (32.0-36.0) % 35.9 RDW (11.8-14.1) % 11.7 L Plt Count (130-400) 10^3/uL 194 MPV (8.0-11.0) fL 9.4 Immature Gran % % 0.5 Neutrophils % % 59.6 Lymphocytes % % 28.6 Monocytes % % 9.6 Eosinophils % % 1.1 Basophils % % 0.6 Nucleated RBC % (0.0-0.3) % 0.0 Absolute Neutrophils (1.2-6.7) 10^3/uL 4.77 Absolute Lymphocytes (1.2-3.4) 10^3/uL 2.29 Absolute Monocytes (0.1-0.8) 10^3/uL 0.77 Absolute Eosinophils (0.0-0.7) 10^3/uL 0.09 Absolute Basophils (0.0-0.2) 10^3/uL 0.05 ESR (0-15) mm/hr 2 APTT (23.6-32.8) sec 23.9 Sodium (136-145) mmol/L 137 Potassium (3.5-5.1) mmol/L 3.5 Chloride (98-107) mmol/L 99 Carbon Dioxide (21.0-32.0) mmol/L 24.8 Anion Gap (3-11) mmol/L 13.2 H BUN (7-18) mg/dL 12 Creatinine (0.70-1.30) mg/dL 0.8 Est GFR (CKD-EPI 2020) (mL/min/1.73m2) 109.17 Glucose (74-106) mg/dL 113 H Calcium (8.5-10.1) mg/dL 9.1 Magnesium (1.8-2.4) mg/dL 1.4 L Total Bilirubin (0.2-1.0) mg/dL 0.84 AST (15-37) U/L 23 ALT (16-63) U/L 20 Alkaline Phosphatase (46-116) U/L 77 Troponin I (<or=76) ng/L 8 7 C-Reactive Protein (<or=0.5) mg/dL < 0.50 Total Protein (6.4-8.2) g/dL 7.6 Albumin (3.4-5.0) g/dL 3.6 Lipase (<78) U/L 342 H Ethyl Alcohol (<10) mg/dL 88.6 H Quality:SDOH Health Related Social Needs: Health related social needs housing instability, house d, with risk of homelessness(Z59.811) Health related social needs details Has mold in his ap artment, would be interested in medical legal investigator resources for tenant rights [facility] All Active Problems (Updated 08/18/24 @ 09:15 by Hamilton Tavera MD) Pericarditis (Acute) Chest pain (Acute) Pancreatitis (Chronic) Dizziness (Acute) Alcohol withdrawal (Acute) Fever (Acute) Nicotine addiction (Acute) Gastroenteritis (Acute) Gastritis (Acute) Alcoholic pancreatitis (Acute) Trochanteric bursitis, right hip (Acute) Avascular necrosis of bone of left hip (Acute) Chest pain (Acute) due to ETOH Hepatic steatosis (Acute) COVID-19 ruled out (Acute) Tobacco abuse (Acute) Impairment of balance (Acute) Chronic vertigo (Acute) Electrolyte and fluid disorder (Acute) Medical History On deep vein thrombosis (DVT) prophylaxis Surgical History 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) Cyst of right upper eyelid Family History Maternal Grandfather Alcohol abuse Maternal Uncle Alcohol abuse Social History Smoking/Tobacco Use Status: Current every day Tobacco Type: cigarettes Years smoked: 25 Smoking risk assessment performed?: Yes Alcohol Intake: current Alcohol Intake frequency: 0-2 drinks per day Alcohol type: beer and hard liquor Details: last drink was 2 weeks ago Drug use: Never Substance use type: does not use Housing: 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 PAWSS Have you Been Recently Intoxicated or Drunk Within the Last 30 days?: Yes Have you Ever Experienced Previous Episodes of Alcohol Withdrawal?: Yes Have you ever Experienced Withdrawal Seizures?: No Have you ever Experienced Delirium Tremens(DT)s?: Yes Have you ever undergone Alcohol Rehabilitation Treatment (i.e, inpt ot outpatient treatment programs)?: Yes Have you ever Experienced Blackouts?: Yes Have you ever Combined Alcohol with other Downers within the last 90 days?: No Have you ever Combined Alcohol with any other Substance of Abuse during the last 90 days?: No Positive Blood Alcohol level on Presentation? [PCS.BAL]: No Evidence of Increased Autonomic Activity (i.e. HR>120, tremor, sweating, agitation, nausea)?: No Result: 5
[2024-08-18 07:37] LABS: ESR 2 mm/hr (0-15)
[2024-08-18 07:41] LABS: ETHANOL BLOOD 88.6 mg/dL (<10)
[2024-08-18 07:43] LABS: PTT Activated 23.9 sec (23.6-32.8)
[2024-08-18 07:47] LABS: C-Reactive Protein < 0.50 mg/dL (<or=0.5)
[2024-08-18 07:49] LABS: ALT 20 U/L (16-63); AST 23 U/L (15-37); Albumin 3.6 g/dL (3.4-5.0); Alkaline Phosphatase 77 U/L (46-116); Anion Gap 13.2 mmol/L (3-11); BUN 12 mg/dL (7-18); Bilirubin, Total 0.84 mg/dL (0.2-1.0); CO2 24.8 mmol/L (21.0-32.0); CREATININE 0.8 mg/dL (0.70-1.30); Calcium 9.1 mg/dL (8.5-10.1); Chloride 99 mmol/L (98-107); Estimated GFR 109.17 (mL/min/1.73m2); Glucose 113 mg/dL (74-106); Lipase 342 U/L (<78); Magnesium 1.4 mg/dL (1.8-2.4); Potassium 3.5 mmol/L (3.5-5.1); Sodium 137 mmol/L (136-145); Total Protein 7.6 g/dL (6.4-8.2); Troponin I 8 ng/L (<or=76)
[2024-08-18] MEDS: Aspirin 81 MG CHEW 324 MG CH (07:51)
[2024-08-18] MEDS: nitroGLYcerin 0.4 MG TAB SL (07:52)
--- NOTE | 2024-08-18 08:15 | RT.EKG_ITS ---
APPROVED REPORT Exam: Resting ECG Reason for Exam: repeat EKG w/1 hour trop Patient Location: E HR:59 bpm ECG Measurements Heart Rate 59 AXIS AR 229 P 12 QRSd 85 QRS 52 QT 427 T 55 QTc 423 Conclusion Sinus bradycardia...rate< 60 Prolonged AR interval...AR >210, V-rate 50- 90 ST elev, probable normal early repol pattern...ST elevation, age<55
[2024-08-18] MEDS: Normal Saline 250 ML IV (08:16)
[2024-08-18 08:36] LABS: Troponin I 7 ng/L (<or=76)
--- NOTE | 2024-08-18 08:45 | DI.US_ITS ---
Exam(s) US ABDOMEN LIMITED EXAM: US ABDOMEN LIMITED CLINICAL HISTORY: pancreatitis TECHNIQUE: Ultrasound abdomen performed using standard protocol. COMPARISON: CT CT ABDOMEN PELVIS W from 04/18/2024 FINDINGS: LIVER: Normal size. Mildly increased echogenicity consistent with mild hepatic steatosis. No focal liver lesions are seen. GALLBLADDER: No evidence of cholelithiasis. No evidence of wall thickening. No pericholecystic fluid identified. HARRY'S SIGN: Negative. BILIARY SYSTEM: No intrahepatic or extrahepatic biliary ductal dilation. RIGHT KIDNEY: Normal size. No evidence of renal calculi. No evidence of hydronephrosis. No suspicious renal mass. No cyst identified. PANCREAS: Normal where visualized. No surrounding fluid. ABDOMINAL AORTA AND IVC: Visualized portions normal caliber. ASCITES: None seen. IMPRESSION: Mild hepatic steatosis. No evidence of gallstones or biliary dilatation. DATA REPOSITORY:
--- NOTE | 2024-08-18 09:20 | HPE_ITS ---
<Statement entered by Aguilar William - 08/18/24 19:42> while the reaction to nitroglycerin does not rule out ACS, I agree that with negative troponins this clinical scenario is pericarditis or possibly referred pain from pancreatitis and not ACS. I agree with management as above. Date of service: 08/18/24 Time of Service: 09:20 Assessment and Plan Assessment and plan (1) Pericarditis: Status: Acute Assessment and plan: The patient presented with chest pain with EKG showing diffuse ST segment elevation in the setting of negative troponin and pain only responding to nitro ruling out ACS, pericarditis remains the most likely working diagnostic. The patient showed no tachypnea no oxygen supplementation, no right heart strain signs as per EKG most likely not a typical PE presentation States administered in the ED Will continue NSAID with scheduled IV ketorolac since NPO for pancreatitis then ASA, ibuprofen or indomethacin Will still give colchicine orally BID No steroids at this time but PPI added to regimen Echocardiogram in AM (2) Chest pain: Status: Acute Assessment and plan: ACS was ruled out as above Most likely due to pancreatitis in combination with pancreatitis (3) Pancreatitis: Status: Chronic Assessment and plan: Most likely from alcoholic etiology with lipase at 324 and negative abdominal ultrasound for cholelithiasis but mild hepatic steatosis seen in imaging. IV fluid: NS with 20 KCl per liter at 100 cc an hour . Then banana bag x 1 As needed Zofran As needed Compazine Initially on fentanyl IV but discontinued Morphine 12 g IV push to 4 hours as needed but need to be premedicated with antiemetic medicine (4) Alcohol withdrawal: Status: Acute Assessment and plan: EtOH/CIWA assessment Phenobarbital protocol initiated at 6 mg/kg Dose to be divided into 3 separate infusions. Complete RASS score prior (5) On deep vein thrombosis (DVT) prophylaxis: Assessment and plan: On Lovenox subcu (6) Hypomagnesemia: Status: Resolved Assessment and plan: Mag 1.4 Supplementation provided Mg in the morning (7) Discharge planning issues: Status: Resolved Assessment and plan: Discharge home when medically ready Discussed with Dr. William History of Present Illness History of Present Illness Chief Complaint: chest pain Narrative: This 49 years old male patient with past medical history of recurrent alcoholic pancreatitis, tobacco abuse, EtOH abuse, right hip arthroplasty, presented to the ED at [facility] today for evaluation of left sternal/substernal chest pain starting around 1 AM. Slight pain also reported left upper quadrant. The patient reported continuous chest pain as burning, stabbing not exacerbated by coughing, deep breathing.The patient reported nausea without vomiting, nor hematemesis. The patient denied diarrhea hematochezia or melena. The patient denied dizziness, fever, chills, change in vision, shortness of breath or dysuria. Workup in the ED was significant for an EKG showing sinus rhythm with diffuse ST elevation less than 1 mm in lead III, aVF, V5 and V6; V2 showed less than 2mm ST elevation; tall peaked T waves seen in V3 V5. EKG showed no acute signs of myocardial injury. Troponins are negative x 2. Lipase was 320, magnesium at 1.4, otherwise unremarkable CBC and chemistry labs. EtOH level was at 88.5. Hospitalist was consulted and patient admitted to the medical surgical floor with telemetry for evaluation and management of pancreatitis, pericarditis, hypomagnesemia and EtOH withdrawal. When seen in the room patient confirmed full CODE STATUS. Patient reported pain being somewhat managed by fentanyl and mentioned having had morphine in the past and being premedicated with antiemetic medicine and would like to try this, despite reported gastro gastrointestinal symptoms when taking hydromorphone. The patient denies any cardiac history, respiratory history but reports ongoing smoking and drinking. Patient also denied any cardiac or chronic lung disease that would pertain to his mother or father. Review of Systems All systems reviewed & are unremarkable except as noted in HPI and below PFSH All Active Problems (Updated 08/18/24 @ 10:47 by ELAINE PHILLIPS) Pericarditis (Acute) Chest pain (Acute) Pancreatitis (Chronic) Dizziness (Acute) Alcohol withdrawal (Acute) Fever (Acute) Nicotine addiction (Acute) Gastroenteritis (Acute) Gastritis (Acute) Alcoholic pancreatitis (Acute) Trochanteric bursitis, right hip (Acute) Avascular necrosis of bone of left hip (Acute) Chest pain (Acute) due to ETOH Hepatic steatosis (Acute) COVID-19 ruled out (Acute) Tobacco abuse (Acute) Impairment of balance (Acute) Chronic vertigo (Acute) Electrolyte and fluid disorder (Acute) Medical History On deep vein thrombosis (DVT) prophylaxis Surgical History 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) Cyst of right upper eyelid Family History Maternal Grandfather Alcohol abuse Maternal Uncle Alcohol abuse Social History Smoking/Tobacco Use Status: Current every day Tobacco Type: cigarettes Years smoked: 25 Smoking risk assessment performed?: Yes Alcohol Intake: current Alcohol Intake frequency: 0-2 drinks per day Alcohol type: beer and hard liquor Details: last drink was 2 weeks ago Drug use: Never Substance use type: does not use Housing: homeless 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 Meds Allergies and Home Medications Allergies Allergy/AdvReac Type Severity Reaction Status Date / Time hydromorphone (From Dilaudid) AdvReac Intermediate Other (See Verified 08/18/24 07:10 Comment) Home Medications ?Medication ?Instructions ?Recorded ?Confirmed ?Type acetaminophen 500 mg capsule 1,000 mg PO Q6H PRN PRN 05/18/24 08/18/24 History meclizine 25 mg tablet 25 mg PO TID PRN PRN dizziness 08/18/24 08/18/24 History Exam Narrative Exam Narrative: Constitutional The patient is in bed comfortable without acute distress and has average body habitus/is obese/ is thin. HENMT: Head is atraumatic, normocephalic, no lymphadenopathy. Facial structures with normal appearance Eyes: Well aligned Neck: No JVD Neuro:alert and oriented to self, person, place,time and situation. No neurological focal deficit Chest:Chest is symmetrical and normal appearance Resp: Normal respiratory pattern, speaks in full sentences, unlabored breathing, clear lung bilaterally Cardio: regular rhythm, S1, S2, no murmur, capillary refill<3 sec., bilateral radial and dorsalis pedis pulses are positive, palpable GI: Negative Monsivais's sign -abdomen is not distended, left upper and epigastric mild tenderness soft, bowel sounds are present : Negative Costovertebral angle tenderness Back/spine/Pelvis: No back tenderness, normal alignment Integumentary: No skin lesions or rash Extremities: strength 5/5 to bilateral lower and upper extremities Psych: RASS 0, congruent mood and normal affect. Results Labs 08/18/24 07:13 08/18/24 07:13 Labs: Laboratory Results - last 24 hr 08/18/24 08/18/24 07:13 08:09 WBC 8.01 RBC 4.45 Hgb 14.5 Hct 40.4 MCV 91 MCH 32.6 MCHC 35.9 RDW 11.7 L Plt Count 194 MPV 9.4 Immature Gran % 0.5 Neutrophils % 59.6 Lymphocytes % 28.6 Monocytes % 9.6 Eosinophils % 1.1 Basophils % 0.6 Nucleated RBC % 0.0 Absolute Neutrophils 4.77 Absolute Lymphocytes 2.29 Absolute Monocytes 0.77 Absolute Eosinophils 0.09 Absolute Basophils 0.05 ESR 2 APTT 23.9 Sodium 137 Potassium 3.5 Chloride 99 Carbon Dioxide 24.8 Anion Gap 13.2 H BUN 12 Creatinine 0.8 Est GFR (CKD-EPI 2020) 109.17 Glucose 113 H Calcium 9.1 Magnesium 1.4 L Total Bilirubin 0.84 AST 23 ALT 20 Alkaline Phosphatase 77 Troponin I 8 7 C-Reactive Protein < 0.50 Total Protein 7.6 Albumin 3.6 Lipase 342 H Ethyl Alcohol 88.6 H Last Vital Signs Temp 36.8 C 08/18/24 07:06 Pulse 62 08/18/24 08:11 Resp 21 08/18/24 08:11 BP 116/70 08/18/24 08:11 Pulse Ox 99 08/18/24 08:11 PAWSS Have you Been Recently Intoxicated or Drunk Within the Last 30 days?: Yes Have you Ever Experienced Previous Episodes of Alcohol Withdrawal?: Yes Have you ever Experienced Withdrawal Seizures?: No Have you ever Experienced Delirium Tremens(DT)s?: Yes Have you ever undergone Alcohol Rehabilitation Treatment (i.e, inpt ot outpatient treatment programs)?: Yes Have you ever Experienced Blackouts?: Yes Have you ever Combined Alcohol with other Downers within the last 90 days?: No Have you ever Combined Alcohol with any other Substance of Abuse during the last 90 days?: No Positive Blood Alcohol level on Presentation? [PCS.BAL]: No Evidence of Increased Autonomic Activity (i.e. HR>120, tremor, sweating, agitation, nausea)?: No Result: 5 Time Spent Time spent with Patient: >75 minutes Time was spent: preparing to see the patient(eg.review tests), obtaining and/or reviewing separately otained hiistory, ordering medications,tests, procedures, referring, communicating with other health career technical counselor, indepentently interpreting results, counseling the patient and care coordination
[2024-08-18] MEDS: MAGNESIUM SULFATE 1 GM/100 ML BAG IV_INF (09:49)
[2024-08-18] MEDS: ACETAMINOPHEN 500 MG/50 ML BAG 200 MG IVPB (09:49)
[2024-08-18] MEDS: Ketorolac 15 MG/ML VIAL IVP ×3 (09:49→22:08)
--- NOTE | 2024-08-18 09:56 | DI.VRAD_ITS ---
PROCEDURE INFORMATION: Exam: XR Chest Exam date and time: 08/18/2024 7:41 AM Age: 49 years old Clinical indication: Other: Chest pain TECHNIQUE: Imaging protocol: Radiologic exam of the chest. Views: 2 views. COMPARISON: CR XR CHEST 2V PA LATERAL 04/18/2024 7:21 PM FINDINGS: Lungs: Unremarkable. No consolidation. Pleural spaces: Unremarkable. No pleural effusion. No pneumothorax. Heart/Mediastinum: Unremarkable. No cardiomegaly. Bones/joints: Unremarkable. IMPRESSION: No acute findings. Dictated and Authenticated by: Diana Bueno MD. Ordering:REUBEN Villasenor MD
--- NOTE | 2024-08-18 10:11 | DI.VRAD_ITS ---
PROCEDURE INFORMATION: Exam: US Abdomen, Limited; Right Upper Quadrant Exam date and time: 08/18/2024 8:56 AM Age: 49 years old Clinical indication: Abdominal pain; Acute; Patient HX: History of pancreatitis TECHNIQUE: Imaging protocol: Real time ultrasound of the abdomen with image documentation. Limited exam focused on the right upper quadrant. COMPARISON: US ABDOMEN 02/21/2020 9:16 AM FINDINGS: Liver: Normal. No masses. Gallbladder: Normal. No gallstones. There is no gallbladder wall thickening. Biliary ducts: Normal. No stones. No dilation. Pancreas: Visualized pancreas is unremarkable. Right kidney: Normal. No mass. No hydronephrosis. IMPRESSION: No acute findings. Dictated and Authenticated by: Diana Bueno MD. Ordering:REUBEN Vilalsenor MD
--- OUTSIDE RECORDS SUMMARY | 2024-08-18 10:48 | XMS_ITS | Encounter Summary ---
Author Organization [facility] Address [address] [place] [address] Care Team Providers Care Farm Rancher Name Role Phone Monica Mulligan MD Primary Care Provider [phone] Encounter Details Date Type Department Care Team ([facility] Contact Info) Description 01/03/2022 Lab Requisition [facility] Pathology & Laboratory Medicine - [facility] [address], [place] [address] Outr Resulting Lab, Provider Social History Tobacco [...] Lyme Ab Negative Negative 01/04/2022 10:17 EDT [facility] Blood VENOUS BLOOD / Unknown 01/03/2022 9:13 EDT 01/03/2022 17:09 EDT us Provider Outr Resulting Lab IMMUNOLOGY AND SEROL OGY ORDERABLES Final Result [facility] [address] [place] [address] documented in this encounter Visit Diagnoses Not on filedocumented in this encounter Care Teams Farm Rancher Relationship Specialty Start Date End Date Monica Mulligan MD [address] [place] [phone] PCP - General 11/29/16 documented as of this encounter
--- OUTSIDE RECORDS SUMMARY | 2024-08-18 10:48 | XMS_ITS | Encounter Summary ---
Author Organization [facility] Address [address] [place] [address] Care Team Providers Care University Controller Name Role Phone Monica Mulligan MD Primary Care Provider [phone] Encounter Details Date Type Department Care Team ([facility] st Contact Info) Description 07/27/2021 Lab Requisition [facility] Pathology & Laboratory Medicine - [facility] [address] [place] [address] Bao Sharpe Jr., MD [address] [place] [address] Encounter for other general examination [...] explore management options, if applicable. 08/04/2021 9:08 [facility] Final Diagnosis A. BONE, RIGHT FEMORAL HEAD, RESECTION: - Femoral head with osteoarthritis. 08/04/2021 9:08 [facility] Attestation There was significant resident/fellow involvement in the diagnostic evaluation of this case. By the signature below, the attending physician certifies that they have personally conducted a gross and/or microscopic examination of the described specimens and rendered or confirmed the above diagnosis. 08/04/2021 9:08 [facility] at 0908 Clinical History Encounter for other general examination; avascular necrosis of (R) femoral head 08/04/2021 9:08 [facility] Gross Description A. [...] cartilage ranges averages 0.1 cm in thickness. Scientific Advisor sections are submitted for acid decalcification as follows: BLOCK HOLDEN A1-A2- Five installation service representative sections including neck and articular surface ELSY DEMPSEY([facility]) 07/28/2021 10:12 08/04/2021 9:08 [facility] Resident/Arturo w: Manolo Portillo MD 08/04/2021 9:08 [facility] Performing Lab [facility] LAB 9:08 [facility] Scanned Images 08/04/2021 9:08 [facility] Tissue SPECIMEN FROM BONE / Unknown 07/27/2021 10:20 EST 07/27/2021 22:10 EST us Bao Sharpe Jr., MD PATHOLOGY ORDER BERNARD Final Result [facility] [address] [place] [address] documented in this encounter Visit Diagnoses Diagnosis Encounter for other general examination documented in this encounter Care Teams University Controller Relationship Specialty Start Date End Date Monica Mulligan MD [address] [place] [address] [phone] PCP - General 11/29/16 documented as of this encounter
--- OUTSIDE RECORDS SUMMARY | 2024-08-18 10:48 | XMS_ITS | Encounter Summary ---
Author Organization [facility] Address [address] [place] [address] Care Team Providers Care Warehouse Packaging Supervisor Name Role Phone Monica Mulligan MD Primary Care Provider [phone] Encounter Details Date Type Department Care Team ([facility] Contact Info) Description 02/18/2020 Lab Requisition [facility] Pathology & Laboratory Medicine - [facility] [address], [place] [id number] Outr Resulting Lab, Provider Social History Tobacco [...] Hold Hold 02/18/2020 21:45 EDT [facility] Blood VENOUS BLOOD / Unknown 02/18/2020 13:47 EDT 02/18/2020 20:44 EDT us Provider Outr Resulting Lab LAB INFO SERVICE AND SUPPORT & PHONE RESULT Final Result Performing Organization Address City/[facility]/ZIP Co de Phone Number [facility] [address] [place] [address] * HEPATITIS B SURFACE ANTIBODY (02/18/2020 13:47 EDT) Hep B Surface Ab, Quantitative <3.1 See Note mIU/mL 02/19/2020 11:14 EDT [facility] Comment: Reference Range for Hep B Surface Ab, Quant: Positive: >= 10.0 mIU/mL Negative: ??< 10.0 mIU/mL Patient is presumed to not be immune to infection with Hepatitis B Virus. Hep B Surface Ab, Qualitative Negative See Note 02/19/2020 11:14 EDT [facility] Comment: Reference Range for Hep B Surface Ab, Qual: Unvaccinated: ??Negative Vaccinated: ??Positive Blood VENOUS BLOOD / Unknown 02/18/2020 13:47 EDT 02/18/2020 20:44 EDT us Provider Outr Resulting Lab CHEMISTRY & BLOOD GA S ORDERABLES Final Result Performing Organization Address [facility]/ZIP Co de Phone Number [facility] [address] [place] [id number] * HEPATITIS B SURFACE ANTIGEN (02/18/2020 13:47 EDT) Hep B Surface Ag Negative Negative 02/19/2020 11:12 EDT [facility] Blood VENOUS BLOOD / Unknown 02/18/2020 13:47 EDT 02/18/2020 20:44 EDT us Provider Outr Resulting Lab CHEMISTRY & BLOOD GA S ORDERABLES Final Result Performing Organization Address [facility] Co de Phone Number [facility] [address] [place] [address] * HEPATITIS C AB W REFLEX TO HCV RNA BY PCR (02/18/2020 13:47 EDT) Hep C Antibody Negative Negative 02/19/2020 11:53 EDT [facility] Blood VENOUS BLOOD / Unknown 02/18/2020 13:47 EDT 02/18/2020 20:44 EDT us Provider Outr Resulting Lab CHEMISTRY & BLOOD GA S ORDERABLES Final Result [facility] [address] [place] [address] documented in this encounter Visit Diagnoses Not on filedocumented in this encounter Additional Health Concerns Infection Onset Date Last Indicated Resolved Time R/O COVID-19 02/20/2020 02/20/2020 02/25/2020 22:1 7 EDT documented as of this encounter Care Teams Warehouse Packaging Supervisor Relationship Specialty Start Date End Date Monica Mulligan MD [address] [place] [address] [phone] PCP - General 11/29/16 documented as of this encounter
--- OUTSIDE RECORDS SUMMARY | 2024-08-18 10:48 | XMS_ITS | Encounter Summary ---
Author Organization [facility] Address [address] [place] [address] Care Team Providers Care Mincemeat Maker Name Role Phone Unavailable Primary Care Provider Unavailabl e Encounter Details Date Type Department Care Team (Latest Contact Info) Description 11/25/2016 6:49 EDT - 11/25/2016 23:59 EDT Hospital Encounter [address] [address] Unknown, Provider, MD Discharge Disposition: Home or [...]
--- OUTSIDE RECORDS SUMMARY | 2024-08-18 10:48 | XMS_ITS | Encounter Summary ---
Author Organization [facility] Address [address] [place] [address] Care Team Providers Care Woodworking Machinist Name Role Phone Monica Mulligan MD Primary Care Provider [phone] Encounter Details Date Type Department Care Team ([facility] Contact Info) Description 04/09/2020 Lab Requisition [facility] Pathology & Laboratory Medicine - [facility] [address] [place], [place] [address] Outr Resulting Lab, Provider Social History Tobacco [...] MICROBIOLOGY - GENER AL ORDERABLES Final Result [facility] [address] [place] [address] * COVID-19 TESTING (04/09/2020 12:55 EDT) COVID-19 rt-PCR Result Negative Negative 04/09/2020 19:41 EDT [facility] Comment: This test [...] history, and epidemiological information. Performed on the [employer] instrument Performing Lab [place] [facility] Lab 04/09/2020 19:41 EDT [facility] Swab 04/09/2020 12:5 5 EDT 04/09/2020 15:36 EDT us Provider Outr Resulting Lab MICROBIOLOGY - GENER AL ORDERABLES Final Result [facility] [address] [place] [address] documented in this encounter Visit Diagnoses Not on filedocumented in this encounter Care Teams Woodworking Machinist Relationship Specialty Start Date End Date Monica Mulligan MD [address] [place] [phone] PCP - General 11/29/16 documented as of this encounter
--- OUTSIDE RECORDS SUMMARY | 2024-08-18 10:48 | XMS_ITS | Referral Summary ---
Author Organization [facility] Address [address] [place] [address] Care Team Providers Care Sole Leveler Name Role Phone Monica Mulligan MD Primary Care Provider [phone] Social History Tobacco Use Types Packs/Day Years [...] C Antibody Negative Negative 02/19/2020 11:53 EDT [facility] Blood VENOUS BLOOD / Unknown 02/18/2020 13:47 EDT 02/18/2020 20:44 EDT us Provider Outr Resulting Lab CHEMISTRY & BLOOD GA S ORDERABLES Final Result [facility] [address] [place] [address] from Last 3 Months or Most Recently Relevant to Health Maintenance Insurance MEDICAID [employer] [place] Care Teams Sole Leveler Relationship Specialty Start Date End Date Monica Mulligan MD [address] [place] [address] [phone] PCP - General 11/29/16
--- OUTSIDE RECORDS SUMMARY | 2024-08-18 10:48 | XMS_ITS | Encounter Summary ---
Author Organization [facility] Address [address] [place] [address] Care Team Providers Care Software Design Analyst Name Role Phone Monica Mulligan MD Primary Care Provider [phone] Encounter Details Date Type Department Care Team ([facility] Contact Info) Description 02/20/2020 Lab Requisition [facility] Pathology & Laboratory Medicine - [facility] [address] [place], [place] [address] Outr Resulting Lab, Provider Social History Tobacco [...] MICROBIOLOGY - GENER AL ORDERABLES Final Result [facility] [address] [place] [address] * COVID-19 TESTING (02/20/2020 22:10 EDT) COVID-19 rt-PCR Result Negative Negative 02/21/2020 12:52 EDT [facility] Comment: This test [...] history, and epidemiological information. Performed on the [employer] instrument Performing Lab [place] [facility] Lab 02/21/2020 12:52 EDT [facility] Swab 02/20/2020 22:1 0 EDT 02/21/2020 8:37 EDT us Provider Outr Resulting Lab MICROBIOLOGY - GENER AL ORDERABLES Final Result [facility] [address] [place] [address] documented in this encounter Visit Diagnoses Not on filedocumented in this encounter Additional Health Concerns Infection Onset Date Last Indicated Resolved Time R/O COVID-19 02/20/2020 02/20/2020 02/25/2020 22:1 7 EDT documented as of this encounter Care Teams Software Design Analyst Relationship Specialty Start Date End Date Monica Mulligan MD [address] [place] [place] [phone] PCP - General 11/29/16 documented as of this encounter
--- OUTSIDE RECORDS SUMMARY | 2024-08-18 10:48 | XMS_ITS | Encounter Summary ---
Author Organization [facility] Address [address] [place] [address] Care Team Providers Care Glacing Machine Tender Name Role Phone Unknown, Provider Primary Care Provider Unava ilable Encounter Details Date Type Department Care Team (Late st Contact Info) Description 11/25/2016 Results Only [facility] [phone] Jackie Marin, DO [address] [place] [phone] Social History Tobacco Use Types [...] ? PARSONPAUL Taj ? Accession #: ? [id number] ? : ? 1975 (Age: 41) ??M [...] cyst is filled with laminated orthokeratin. ??(Dr. Dumont)/[facility] Document reviewed and electronically signed [...] Camilo 11/26/2016 9:58 AM End of Report [facility] 11/25/2016 5:50 EDT 11/26/2016 5:50 EDT us Jackie Marin DO PATHOLOGY ORDERABLES Final Res ult [facility] [address] [place] [address] documented in this encounter Visit Diagnoses Not on filedocumented in this encounter Care Teams Glacing Machine Tender Relationship Specialty Start Date End Date Unknown, Provider, PCP - General 11/26/16 11/28/16 documented as of this encounter
--- OUTSIDE RECORDS SUMMARY | 2024-08-18 10:48 | XMS_ITS | Clinical Summary ---
Author Organization [facility] Address [address] [place] [address] Care Team Providers Care Wildlife Biology Technician Name Role Phone Monica Mulligan MD Primary Care Provider [phone] Social History Tobacco Use Types Packs/Day Years [...] C Antibody Negative Negative 02/19/2020 11:53 EDT [facility] Blood VENOUS BLOOD / Unknown 02/18/2020 13:47 EDT 02/18/2020 20:44 EDT us Provider Outr Resulting Lab CHEMISTRY & BLOOD GA S ORDERABLES Final Result [facility] [address] [place] [address] from Last 3 Months or Most Recently Relevant to Health Maintenance Insurance MEDICAID [employer] Care Teams Wildlife Biology Technician Relationship Specialty Start Date End Date Monica Mulligan MD [address] [place] [address] [phone] PCP - General 11/29/16
[2024-08-18 11:04] LABS: Troponin I 6 ng/L (<or=76)
--- NOTE | 2024-08-18 11:23 | W.PC.ACHO ---
Registration Status: Primary Language: Preferred Language: ED Information & Data Chief Complaint Abd Prob 08/18/24 07:36 Triage Note left sided chest pain/LUQ 08/18/24 07:06 burning sudden onset at 0100. Given IV tylenol en route by EMS, no asa or nitro given. Pt states it feels like his previous pancreatitis. 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) Cyst of right upper eyelid Most Recent Vital Signs Temperature 36.5 C 08/18/24 11:00 Temperature Source Oral 08/18/24 07:06 Pulse 63 08/18/24 11:00 Pulse Rhythm Regular 08/18/24 11:00 Pulse 60 08/18/24 10:36 Respiratory Rate 17 08/18/24 11:00 Respiratory Effort Normal 08/18/24 11:00 Respiratory Depth Normal 08/18/24 11:00 Respiratory Pattern Normal 08/18/24 11:00 Blood Pressure 140/94 H 08/18/24 11:00 Blood Pressure Mean 105 08/18/24 10:36 Blood Pressure Position Sitting 08/18/24 07:06 Pulse Oximetry 100 08/18/24 11:00 Oxygen Delivery Method Room Air 08/18/24 11:00 Oxygen Flow Rate 0 08/18/24 11:00 Pain Level 8 08/18/24 11:00 Allergies hydromorphone (From Dilaudid) Adverse Reaction (Intermediate, Verified 08/18/24 07:10) Other (See Comment) Nausea. Precautions Isolation Standard precaution 08/18/24 07:11 Active Medications Generic Name Dose Route Start Last Admin Trade Name Freq PRN Reason Stop Dose Admin Sodium Chloride 0 ml 08/18/24 08:30 08/18/24 10:10 Normal Saline Flush 10 Ml Syr IVP Not Given BID JOSSELYN IV IV Catheter Type [Left Saline Lock Antecubital] IV Catheter Gauge [Left 18 Antecubital] Diet Orders Category Date Time Status npo [Nothing Per Oral] [DIET] Nutrition 08/18/24 Lunch Active Diagnostics 08/18/24 08/18/24 08/18/24 Range/Units 10:43 08:09 07:13 WBC 8.01 (4.4-10.8) 10^3/uL RBC 4.45 (4.36-5.78) 10^6/uL Hgb 14.5 (13.5-17.5) g/dL Hct 40.4 (40.0-50.0) % MCV 91 (80-95) fL MCH 32.6 (27.0-33.0) pg MCHC 35.9 (32.0-36.0) % RDW 11.7 L (11.8-14.1) % Plt Count 194 (130-400) 10^3/uL MPV 9.4 (8.0-11.0) fL Immature Gran % 0.5 % Neutrophils % 59.6 % Lymphocytes % 28.6 % Monocytes % 9.6 % Eosinophils % 1.1 % Basophils % 0.6 % Nucleated RBC % 0.0 (0.0-0.3) % Absolute Neutrophils 4.77 (1.2-6.7) 10^3/uL Absolute Lymphocytes 2.29 (1.2-3.4) 10^3/uL Absolute Monocytes 0.77 (0.1-0.8) 10^3/uL Absolute Eosinophils 0.09 (0.0-0.7) 10^3/uL Absolute Basophils 0.05 (0.0-0.2) 10^3/uL ESR 2 (0-15) mm/hr APTT 23.9 (23.6-32.8) sec Sodium 137 (136-145) mmol/L Potassium 3.5 (3.5-5.1) mmol/L Chloride 99 (98-107) mmol/L Carbon Dioxide 24.8 (21.0-32.0) mmol/L Anion Gap 13.2 H (3-11) mmol/L BUN 12 (7-18) mg/dL Creatinine 0.8 (0.70-1.30) mg/dL Est GFR (CKD-EPI 2020) 109.17 (mL/min/1.73m2) Glucose 113 H (74-106) mg/dL Calcium 9.1 (8.5-10.1) mg/dL Magnesium 1.4 L (1.8-2.4) mg/dL Total Bilirubin 0.84 (0.2-1.0) mg/dL AST 23 (15-37) U/L ALT 20 (16-63) U/L Alkaline Phosphatase 77 (46-116) U/L Troponin I 6 7 8 (<or=76) ng/L C-Reactive Protein < 0.50 (<or=0.5) mg/dL Total Protein 7.6 (6.4-8.2) g/dL Albumin 3.6 (3.4-5.0) g/dL Lipase 342 H (<78) U/L Ethyl Alcohol 88.6 H (<10) mg/dL Intake and Output - 24 Hour Total 08/18/24 07:02 thru 08/18/24 11:00 Intake Total 310 Balance 310 Weight 77.111 kg Intake: IV 310 Falls Risk Assessment History of Falls No History 08/18/24 11:00 Contributing Factors Unstable,Medications 08/18/24 11:00 Ambulatory Aids Independent 08/18/24 11:00 Tubes/Lines With any additional score 08/18/24 07:48 Gait Evaluation No gait disturbance 08/18/24 11:00 Cognition No cognitive impairment 08/18/24 11:00 Fall Total Score 6 08/18/24 11:00 Level of Risk Standard/Low Risk 08/18/24 11:00 Problems (Last Reviewed 08/18/24 @ 07:33 by Hamilton Tavera MD) Pericarditis (Acute) Chest pain (Acute) Pancreatitis (Chronic) Alcohol withdrawal (Acute) v v v v v v v v v Sending and/or Receiving Nurses: Please use comment section below to note any information pertinent to the patient hand-off not included above. Information / Comments: Report received from: SHIRLEY Chavez RN, report @ 10:38
[2024-08-18] MEDS: Pantoprazole 40 MG VIAL IVP (11:34)
[2024-08-18] MEDS: Normal Saline Flush 10 ML SYR IVP ×4 (11:34→22:07)
[2024-08-18] MEDS: Enoxaparin 40 MG/0.4 ML SYR SC (11:34)
[2024-08-18] MEDS: fentaNYL 100 MCG/2 ML VIAL 50 MCG IVP (11:45)
[2024-08-18] MEDS: MAGNESIUM SULFATE 2 GM/50 ML BAG IV_INF (11:46)
[2024-08-18 13:46] LABS: *AMPHETAMINES SCREEN URINE Negative (Negative); *BARBITURATES SCREEN URINE Negative (Negative); *BENZODIAZEPINES SCREEN URINE Negative (Negative); Cannabinoids THC Negative (Negative); Cocaine Screen,Urine Negative (Negative); METHADONE URINE SCREEN Negative (Negative); OPIATES URINE SCREEN Negative (Negative)
[2024-08-18 13:47] LABS: Tricyclic Antidepressants Negative (Negative)
[2024-08-18] MEDS: PHENobarbital 150 MG in Normal Saline 50 ML 100 MG IVPB (14:44)
[2024-08-18] MEDS: Prochlorperazine 10 MG/2 ML VIAL 5 MG IVP (14:45)
[2024-08-18] MEDS: ACETAMINOPHEN 1,000 MG/100 ML BAG 400 MG IVPB ×2 (15:33→22:07)
[2024-08-18] MEDS: Colchicine 0.6 MG TAB PO (18:25)
[2024-08-18] MEDS: MAGNESIUM SULFATE 8.12 MEQ, MULTIVITAMIN 10 ML, THIAMINE 100 MG, FOLIC ACID 1 MG in Nor... 168.867 MG IV (19:39)
[2024-08-18] MEDS: MORPHine 2 MG/ML SYR IVP (20:00)
[2024-08-18] MEDS: POTASSIUM CHLORIDE/0.9% NACL 1,000 ML 100 MEQ IV (21:48)
[2024-08-18] MEDS: Nicotine 21 MG/24 HR PATCH TD (22:29)
[2024-08-19] VITALS (8 sets, daily range): BP systolic 143–159; BP diastolic 86–100; PULSE 61–84; RESP 16–18; TEMP 36.4–37.8; O2SAT 97–99
[2024-08-19] MEDS: Ondansetron 4 MG/2 ML VIAL IVP ×3 (02:00→19:35)
[2024-08-19] MEDS: Prochlorperazine 10 MG/2 ML VIAL 5 MG IVP ×2 (03:38→14:03)
[2024-08-19] MEDS: MORPHine 2 MG/ML SYR IVP ×4 (03:42→19:35)
[2024-08-19] MEDS: Ketorolac 15 MG/ML VIAL IVP ×4 (04:06→21:39)
[2024-08-19] MEDS: ACETAMINOPHEN 1,000 MG/100 ML BAG 400 MG IVPB ×4 (04:07→21:39)
[2024-08-19 06:46] LABS: Anion Gap 13.9 mmol/L (3-11); BUN 6 mg/dL (7-18); CO2 23.1 mmol/L (21.0-32.0); CREATININE 0.7 mg/dL (0.70-1.30); Calcium 8.8 mg/dL (8.5-10.1); Chloride 99 mmol/L (98-107); Estimated GFR 113.66 (mL/min/1.73m2); Glucose 125 mg/dL (74-106); Magnesium 1.8 mg/dL (1.8-2.4); Potassium 3.6 mmol/L (3.5-5.1); Sodium 136 mmol/L (136-145)
[2024-08-19 07:17] LABS: Abs Immature Grans 0.05 10^3/uL (0.0-0.06); Absolute Basophil Count 0.03 10^3/uL (0.0-0.2); Absolute Eosinophil Count 0.03 10^3/uL (0.0-0.7); Absolute Lymphocyte Count 1.29 10^3/uL (1.2-3.4); Absolute Monocyte Count 0.79 10^3/uL (0.1-0.8); Absolute Neutrophil Count 8.32 10^3/uL (1.2-6.7); Basophils % 0.3 %; Eosinophils % 0.3 %; HCT 37.6 % (40.0-50.0); HGB 13.6 g/dL (13.5-17.5); Immature Grans % 0.5 %; Lymphocytes % 12.3 %; MCH 33.3 pg (27.0-33.0); MCHC 36.2 % (32.0-36.0); MCV 92 fL (80-95); Monocytes % 7.5 %; Neutrophils % 79.1 %; Platelet Count 157 10^3/uL (130-400); RBC 4.08 10^6/uL (4.36-5.78); RDW 11.5 % (11.8-14.1); RDW-SD 38.9 fL; WBC 10.51 10^3/uL (4.4-10.8)
--- NOTE | 2024-08-19 08:35 | W.NUTRFU ---
Date of service: 08/19/24 Time of Service: 08:35 Nutrition Note NOTE: pt admitted for etoh w/drawal. Currently NPO. Weight history relatively stable. Magnesium low yesterday and repleted - wnl today. given one time dose of thiamine, folate, and MVI via IV therapy. Pt currently npo. Would suggest oral b complex, folic acid and multivitamin/mineral as soon as can be taken without concerns. Suggest Vitamin D lab and supplementing if low Will monitor for diet advancement and intake Time Spent in Nutritional Counseling and Treatment: 0
[2024-08-19] MEDS: Normal Saline Flush 10 ML SYR IVP ×8 (09:02→21:39)
[2024-08-19] MEDS: POTASSIUM CHLORIDE/0.9% NACL 1,000 ML 100 MEQ IV ×2 (09:17→21:39)
[2024-08-19 10:03] LABS: Lab Add On Test DONE
[2024-08-19 10:24] LABS: Lipase 971 U/L (<78)
--- NOTE | 2024-08-19 10:30 | DI.US_ITS ---
APPROVED REPORT EXAM: Comprehensive 2D, Doppler, and color-flow Echocardiogram Patient Location: In-Patient Room/Bed: Formerly named [facility] Physician: Daria Vines RDCS (AE) Indications: Chest ain, abnormal EKG, Pericarditis, Smoker, ETOH Other Information Study Quality: Adequate Conclusion Normal left ventricular wall thickness and chamber size. Ejection fraction is 57%. Wall motion is n ormal Normal right ventricular size and function Both atria are normal in size There is no structural or hemodynamically significant valvular disease Estimated right ventricular systolic pressure is 20 mmHg There is no pericardial effusion Ascending aorta measures 3.58 cm Wall motion Left Ventricle The left ventricle is normal size. The left ventricular systolic function is normal. The left ventric ular ejection fraction is within the normal range. There is normal left ventricular wall thickness. T here is normal LV segmental wall motion. There is no ventricular septal defect visualized. LVEF is 57 %. Right Ventricle The right ventricle is normal size. The right ventricular systolic function is normal. Atria The left atrium size is normal. The right atrium size is normal. The interatrial septum is intact wit h no evidence for an atrial septal defect. Aortic Valve The aortic valve is normal in structure. Aortic valve is trileaflet. There is no aortic valvular sten osis. No aortic regurgitation is present. Mitral Valve The mitral valve is normal in structure. No evidence of mitral valve stenosis. Trace mitral regurgita tion. Tricuspid Valve The tricuspid valve is normal in structure. There is no tricuspid valve stenosis. Trace tricuspid reg urgitation. The RVSP is 19.8mmHg. Pulmonic Valve The pulmonary valve is normal in structure. There is no pulmonic valvular stenosis. Trace pulmonic re gurgitation. Great Vessels The aortic root is normal in size. The ascending aorta is mildly dilated. Aortic arch is normal in ca liber. IVC is normal in size and collapses >50% with inspiration. Pericardium There is no pericardial effusion. 2D Dimensions IVSD d PLAX 0.83 cm M: 0.6-1.2 Ao Root d 3.42 cm M: 3.1 - 3.7 LVPW d PLAX 0.80 cm M: 0.6 - 1.2 Ao Asc Diam d 3.58 cm M: 2.6 - 3.4 LVID d PLAX 4.59 cm M: 4.2 - 5.8 LVDs 3.28 cm M: 2.5 - 4.0 LV EF Teichholz 55.1 % FS 28.57 % LV EDV (Teich) 97.0 mL LV ESV (Teich) 43.5 mL M-Mode TAPSE 1.79 cm (M/F) >1.7 Auto EF LV EDV A4C 111.4 mL LV EDV A2C 116.9 mL LV EDV BP 112.4 mL LV ESV A4C 47.2 mL LV ESV A2C 50.4 mL LV ESV BP 48.1 mL LVEF(%) A4C 57.6 % LVEF(%) A2C 56.9 % LVEF(%) BP 57.2 % LV SV A4C 64.2 ml LV SV A2C 66.5 ml LV SV BP 64.3 ml LV CO A4C 4.1 L/min LV CO A2C 4.4 L/min LV CO BP 4.2 L/min HR A4C 63.36 BPM HR A2C 65.81 BPM LV EDV Index (BP) LA Volume LA Length A4C 4.2 cm LA Length A2C 5.5 cm LA Area A4C s 12.24 cm2 LA Area A2C s 21.24 cm2 LA Vol A4C A-L 30.56 mL LA Vol A2C A-L 69.37 mL LA Vol Biplane A-L 53.0 mL LA Vol/BSA A4C A-L LA Vol/BSA A2C A-L LA Vol/BSA BP A-L 28.4 mL/m2 LA Vol A4C MOD 28.3 mL LA Vol A2C MOD 65.3 mL LA Vol BP MOD 49.3 mL RA Volume RA Area A4C 8.4 cm2 RA ESV A4C (A-L) 14.6mL RA Vol/BSA A4C A-L RA Length A4C 4.1 cm RA ESV A4C (MOD) 14.4mL LV Diastology MV E' medial 0.082 (>0.07 m/s) MV E Vmax 0.69 (0.4-1.3 m/s) MV E/E' MED 8.38 (<14) MV A Vmax 0.75 (0.4-1.3 m/s) MV E' lateral 0.107 (>0.1 m/s) E/A Ratio 0.9 MV E/E' LAT 6.43 (<14) MV E' Average 0.095 m/s MV E/E'(average) 7.28 Aortic Valve AoV Vmax 1.25 m/s LVOT Vmax 1.02 m/s AoV Peak Grad 6.3 mmHg LVOT Peak Grad 4.2 mmHg AoV Area (Vmax) 2.94 cm2 LVOT VTI 0.206 m AoV VTI 0.275 m LVOT Mean Grad 2.4 mmHg AoV Mean Marcos. 0.83 m/s LVOT SV 74.25 mL AoV Mean Grad 3.2 mmHg LVOT Diam s 2.10 cm AoV Area (VTI) 2.70 cm2 AV Regurg Peak Gr. 6.28 mmHg Velocity Ratio 0.82 Mitral Valve MV DT 271 (160-240 msec) MV Vmax TIPS 0.76 m/s MV Mean Grad 0.7 (<2mmHg) MV VTI 0.245 m Pulmonary Valve PV Vmax 1.01 (0.5-1.5 m/s) RVOT Vmax 0.69 m/s PV Peak Grad 4.1 mmHg RVOT Peak Gr. 1.9 mmHg PV Mean Marcos 0.72 m/s RVOT VTI 0.152 m PV Mean Grad 2.3 mmHg RVOT Mean Gr. 1.2 mmHg Tricuspid Valve RA Pressure 3.00 mmHg TR Vmax 2.05 m/s TV S' 0.12 m/s TR Peak Grad 16.7 mmHg RVSP (TR) 19.8 mmHg
[2024-08-19] MEDS: Enoxaparin 40 MG/0.4 ML SYR SC (12:21)
[2024-08-19] MEDS: Pantoprazole 40 MG VIAL IVP (12:21)
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
--- NOTE | 2024-08-19 15:17 | W.PM.PROGNOT ---
Date of Service Date of service: 08/19/24 Time of Service: 15:17 Assessment and Plan Assessment and plan (1) Pancreatitis: Status: Chronic Assessment and plan: Lipase increased to 971 and negative abdominal ultrasound for cholelithiasis but mild hepatic steatosis seen in imaging. Continue IV fluid: NS with 20 KCl per liter at 100 cc an hour As needed Zofran As needed Compazine Morphine (2) Alcohol withdrawal: Status: Acute Assessment and plan: EtOH/CIWA assessment (3) On deep vein thrombosis (DVT) prophylaxis: Assessment and plan: On Lovenox subcu (4) Hypomagnesemia: Status: Resolved Assessment and plan: Mag 1.8 (5) Discharge planning issues: Status: Resolved Assessment and plan: Discharge home when medically ready Discussed with Dr. Archibald Subjective Subjective Patient reports: no new complaints, still having pain and tolerating liquids well; denies diarrhea, vomiting, shortness of breath or afebrile Interval history since last seen: Patient reports he still has pain, does feel better after pain medication. 7/10 prior to pain med; /10 - acceptable to patient - after medicated. No new concerns or complaints. Exam Const General: cooperative and no acute distress HENMT Mouth: moist mucous membranes Eyes Conjunctivae: normal conjunctivae Sclera: normal sclerae Neck Neck: trachea midline Resp Auscultation: clear to auscultation bilaterally, no rales, no rhonchi and no wheezes Cardio Rate: regular rate and not tachycardic Rhythm: regular rhythm GI Palpation: soft, not firm, no guarding, no masses, not rigid and tender in the LUQ (Mild) Skin General skin exam: no rashes or lesions noted Neuro General: patient alert, patient awake and tone normal Extrem General: no calf tenderness and no edema Psych Appearance: grossly normal Mental Status: mental status grossly normal Objective Last Vital Signs Temp 37.6 C H 08/19/24 15:07 Pulse 68 08/19/24 15:07 Resp 18 08/19/24 15:07 BP 156/88 H 08/19/24 15:07 Pulse Ox 97 08/19/24 15:07 Laboratory Results - last 24 hr 08/19/24 08/19/24 06:13 10:02 WBC 10.51 RBC 4.08 L Hgb 13.6 Hct 37.6 L MCV 92 MCH 33.3 H MCHC 36.2 H RDW 11.5 L Plt Count 157 MPV 10.0 Immature Gran % 0.5 Neutrophils % 79.1 Lymphocytes % 12.3 Monocytes % 7.5 Eosinophils % 0.3 Basophils % 0.3 Nucleated RBC % 0.0 Absolute Neutrophils 8.32 H Absolute Lymphocytes 1.29 Absolute Monocytes 0.79 Absolute Eosinophils 0.03 Absolute Basophils 0.03 Sodium 136 Potassium 3.6 Chloride 99 Carbon Dioxide 23.1 Anion Gap 13.9 H BUN 6 L Creatinine 0.7 Est GFR (CKD-EPI 2020) 113.66 Glucose 125 H Calcium 8.8 Magnesium 1.8 Lipase 971 H Add-On Test Request DONE PAWSS Have you Been Recently Intoxicated or Drunk Within the Last 30 days?: Yes Have you Ever Experienced Previous Episodes of Alcohol Withdrawal?: Yes Have you ever Experienced Withdrawal Seizures?: No Have you ever Experienced Delirium Tremens(DT)s?: Yes Have you ever undergone Alcohol Rehabilitation Treatment (i.e, inpt ot outpatient treatment programs)?: Yes Have you ever Experienced Blackouts?: Yes Have you ever Combined Alcohol with other Downers within the last 90 days?: No Have you ever Combined Alcohol with any other Substance of Abuse during the last 90 days?: No Positive Blood Alcohol level on Presentation? [PCS.BAL]: Yes Evidence of Increased Autonomic Activity (i.e. HR>120, tremor, sweating, agitation, nausea)?: No Result: 6 Time Spent with Patient Time Spent with Patient: 25-34 minutes Time was spent: preparing to see the patient(eg.review tests), ordering medications,tests, procedures, referring, communicating with other health women's health care nurse practitioner, indepentently interpreting results and counseling the patient
--- NOTE | 2024-08-20 | DI.MRI_ITS ---
Exam(s) MR ABDOMEN WO EXAM: MR ABDOMEN WO CLINICAL HISTORY: pancreatitis - increasing lipase TECHNIQUE: Multiplanar multisequence MRI was performed 1.5 varun unit.. MRCP sequences were also performed COMPARISON: US US ABDOMEN LIMITED from 08/18/2024 FINDINGS: VISUALIZED LUNG BASES: No pleural effusions evident. There is no ascites evident. LIVER: Mild steatosis. There no discrete ominous focal hepatic lesions identified. There are no dil ated intrahepatic ducts. BILIARY/MRCP: Gallbladder is mildly distended. There is a small gallstone or polyp at the level the fundus which measures 9 x 8 mm. Gallbladder is not edematous and there is no pericholecystic fluid. CBD diameter is 8 mm which is minimally prominent. There is a tiny focus of signal abnormality in t he lower CBD. This may be a tiny calculus. PANCREAS: There is no evidence of pancreatic mass nor dilatation of the pancreatic duct. SPLEEN: Spleen is not enlarged and there are no intrasplenic lesions. ADRENALS: There are no significant adrenal masses. KIDNEYS: No solid renal masses. No hydronephrosis.No cysts evident. ABDOMINAL AORTA: Not enlarged and there is no significant para-aortic adenopathy. ANTERIOR ABDOMINAL WALL/GI: There is no evidence of significant anterior abdominal wall hernia in the field of view of this study.Is no evidence of obvious bowel obstruction. OSSEOUS: There are no lytic osseous lesions in the field of view of this study. IMPRESSION: 1. There is a mural based focal abnormality in the gallbladder fundus measuring 9 x 8 mm which is eit her a polyp or noncalcified gallstone. Gallbladder is mildly distended but not edematous and there i s no pericholecystic fluid. 2. There is a tiny focus of signal abnormality in the lower CBD which may represent a small calculus at this level. This CBD diameter is minimally prominent, measuring 8 mm. DATA REPOSITORY:
[2024-08-20 02:59] VITALS: BP 148/90; PULSE 74; RESP 16; TEMP 37.2; O2SAT 97
[2024-08-20] MEDS: Ketorolac 15 MG/ML VIAL IVP ×3 (04:27→18:16)
[2024-08-20] MEDS: Normal Saline Flush 10 ML SYR IVP ×7 (04:28→19:44)
[2024-08-20] MEDS: ACETAMINOPHEN 1,000 MG/100 ML BAG 400 MG IVPB ×4 (04:28→21:44)
[2024-08-20 07:10] LABS: Abs Immature Grans 0.04 10^3/uL (0.0-0.06); Absolute Basophil Count 0.02 10^3/uL (0.0-0.2); Absolute Eosinophil Count 0.16 10^3/uL (0.0-0.7); Absolute Lymphocyte Count 1.52 10^3/uL (1.2-3.4); Absolute Monocyte Count 0.92 10^3/uL (0.1-0.8); Absolute Neutrophil Count 8.09 10^3/uL (1.2-6.7); Basophils % 0.2 %; Eosinophils % 1.5 %; HCT 37.3 % (40.0-50.0); HGB 13.6 g/dL (13.5-17.5); Immature Grans % 0.4 %; Lymphocytes % 14.1 %; MCH 32.5 pg (27.0-33.0); MCHC 36.5 % (32.0-36.0); MCV 89 fL (80-95); MPV 10.3 fL (8.0-11.0); Monocytes % 8.6 %; Neutrophils % 75.2 %; Platelet Count 153 10^3/uL (130-400); RBC 4.19 10^6/uL (4.36-5.78); RDW 11.6 % (11.8-14.1); RDW-SD 37.1 fL; WBC 10.75 10^3/uL (4.4-10.8)
[2024-08-20 07:32] LABS: Anion Gap 11.6 mmol/L (3-11); BUN 4 mg/dL (7-18); CO2 22.4 mmol/L (21.0-32.0); CREATININE 0.6 mg/dL (0.70-1.30); Calcium 9.1 mg/dL (8.5-10.1); Chloride 99 mmol/L (98-107); Estimated GFR 119.07 (mL/min/1.73m2); Glucose 85 mg/dL (74-106); Magnesium 1.6 mg/dL (1.8-2.4); Potassium 3.5 mmol/L (3.5-5.1); Sodium 133 mmol/L (136-145)
[2024-08-20 08:09] VITALS: BP 126/82; PULSE 69; RESP 17; TEMP 36.8; O2SAT 96
[2024-08-20] MEDS: Ondansetron 4 MG/2 ML VIAL IVP (09:07)
[2024-08-20] MEDS: MORPHine 2 MG/ML SYR IVP (09:12)
[2024-08-20] MEDS: MAGNESIUM SULFATE 2 GM/50 ML BAG IV_INF (10:17)
[2024-08-20 10:37] LABS: Lab Add On Test DONE
--- NOTE | 2024-08-20 11:18 | CMPROGNOTE_ITS ---
Date of service: 08/20/24 Time of Service: 11:18 Care Management Progress Note Progress Note Text Progress Note Text: Paul was sitting in a recliner when CM met with him. He appears to have showered and is well groomed today. He feels better and planning on [facility] to the [facility] when medically [facility]. He received a call from a CHW at [facility] today and feels that they will be helpful to him after he discharges. He also has support from [facility]. Paul advises that he has cut back on his ETOH consumption and declines a referral [facility]. Discharge Potential Discharge Needs: PCP F/U Appt Anticipated Barriers to Discharge: Medical Status Patient/Family Education Needs: Review discharge instructions, discuss Ask Me Three Transportation: RCT RCT Transportation: Private vechicle Plan: Anticipate Paul will discharge back to the homeless residential where he's been staying for the last 2 months. He will follow up with community providers and his discharge plan of care as instructed. Transportation will be coordinated with [facility] private vehicle. Social Determinants of Health Screening Will the Patient Participate in the Screening?: Unable to obtain Do you worry about having a steady place to live?: yes What is your living situation today?: I do not have steady housing Problems where you live: no known problems In the past 12 months, have you had to go without electric, gas, oil or water in your home?: no Have you or anyone in your house had to go without enough food to eat?: no Has lack of transportation kept you from medical appointments or from doing things needed for daily living?: no Has anyone in your life made you feel unsafe or unsupported?: no Does the patient want assistance with any of the above?: No Health Related Social Needs Health related social needs: housing instability, housed, with risk of homelessness (Z59.811)
[2024-08-20 11:40] LABS: Lipase 1104 U/L (<78)
[2024-08-20] MEDS: POTASSIUM CHLORIDE/0.9% NACL 1,000 ML 100 MEQ IV (11:54)
[2024-08-20 12:05] VITALS: BP 137/96; PULSE 80; RESP 18; TEMP 36.5; O2SAT 100
[2024-08-20] MEDS: Enoxaparin 40 MG/0.4 ML SYR SC (12:10)
[2024-08-20] MEDS: Pantoprazole 40 MG VIAL IVP (12:11)
[2024-08-20 12:30] VITALS: O2SAT 98
[2024-08-20] MEDS: Nicotine 21 MG/24 HR PATCH TD (16:55)
--- NOTE | 2024-08-20 17:15 | W.PM.PROGNOT ---
Date of Service Date of service: 08/20/24 Time of Service: 17:15 Assessment and Plan Assessment and plan (1) Pancreatitis: Status: Chronic Assessment and plan: Lipase increased to 1104 Continue IV fluid: NS with 20 KCl per liter at 100 cc an hour continue NPO Pain controlled MRCP today - 1. There is a mural based focal abnormality in the gallbladder fundus measuring 9 x 8 mm which is either a polyp or noncalcified gallstone. Gallbladder is mildly distended but not edematous and there is no pericholecystic fluid. 2. There is a tiny focus of signal abnormality in the lower CBD which may represent a small calculus at this level. This CBD diameter is minimally prominent, measuring 8 mm. Consider surgery consult if not improved 08/21/24 Lipid panel pending As needed Zofran As needed Compazine Morphine (2) Alcohol withdrawal: Status: Resolved Assessment and plan: EtOH/CIWA assessment discontinued Score 0 since admission (3) On deep vein thrombosis (DVT) prophylaxis: Assessment and plan: On Lovenox subcu (4) Hypomagnesemia: Status: Resolved Assessment and plan: Mag 1.6 - replaced (5) Discharge planning issues: Status: Resolved Assessment and plan: Discharge home when medically ready Discussed with Dr. Archibald Subjective Subjective Patient reports: no new complaints, still having pain, pain is less, voiding w/o difficulty, bowel movement and afebrile; denies diarrhea, nausea, vomiting or shortness of breath Exam Const General: cooperative and no acute distress HENMT Mouth: moist mucous membranes Eyes Conjunctivae: normal conjunctivae Sclera: normal sclerae Neck Neck: trachea midline Resp Auscultation: clear to auscultation bilaterally, no rales, no rhonchi and no wheezes Cardio Rate: regular rate and not tachycardic Rhythm: regular rhythm GI Palpation: soft, not firm, no guarding, no masses, not rigid and tender in the LUQ (Mild) Skin General skin exam: no rashes or lesions noted Neuro General: patient alert, patient awake and tone normal Extrem General: no calf tenderness and no edema Psych Appearance: grossly normal Mental Status: mental status grossly normal Objective Last Vital Signs Temp 36.5 C 08/20/24 12:05 Pulse 80 08/20/24 12:05 Resp 18 08/20/24 12:05 BP 137/96 H 08/20/24 12:05 Pulse Ox 98 12/31/24 12:30 Laboratory Results - last 24 hr 08/20/24 08/20/24 06:11 10:36 WBC 10.75 RBC 4.19 L Hgb 13.6 Hct 37.3 L MCV 89 MCH 32.5 MCHC 36.5 H RDW 11.6 L Plt Count 153 MPV 10.3 Immature Gran % 0.4 Neutrophils % 75.2 Lymphocytes % 14.1 Monocytes % 8.6 Eosinophils % 1.5 Basophils % 0.2 Nucleated RBC % 0.0 Absolute Neutrophils 8.09 H Absolute Lymphocytes 1.52 Absolute Monocytes 0.92 H Absolute Eosinophils 0.16 Absolute Basophils 0.02 Sodium 133 L Potassium 3.5 Chloride 99 Carbon Dioxide 22.4 Anion Gap 11.6 H BUN 4 L Creatinine 0.6 L Est GFR (CKD-EPI 2020) 119.07 Glucose 85 Calcium 9.1 Magnesium 1.6 L Lipase 1104 H Add-On Test Request DONE PAWSS Have you Been Recently Intoxicated or Drunk Within the Last 30 days?: Yes Have you Ever Experienced Previous Episodes of Alcohol Withdrawal?: Yes Have you ever Experienced Withdrawal Seizures?: No Have you ever Experienced Delirium Tremens(DT)s?: Yes Have you ever undergone Alcohol Rehabilitation Treatment (i.e, inpt ot outpatient treatment programs)?: Yes Have you ever Experienced Blackouts?: Yes Have you ever Combined Alcohol with other Downers within the last 90 days?: No Have you ever Combined Alcohol with any other Substance of Abuse during the last 90 days?: No Positive Blood Alcohol level on Presentation? [PCS.BAL]: Yes Evidence of Increased Autonomic Activity (i.e. HR>120, tremor, sweating, agitation, nausea)?: No Result: 6 Time Spent with Patient Time Spent with Patient: 25-34 minutes Time was spent: preparing to see the patient(eg.review tests), ordering medications,tests, procedures, referring, communicating with other health patient care assistant, indepentently interpreting results, counseling the patient and care coordination
[2024-08-20 17:51] LABS: Calculated LDL 51 mg/dL (<100); Cholesterol 124 mg/dL (<200); HDL Cholesterol 43 mg/dL (40-60); Triglyceride 150 mg/dL (<150)
[2024-08-20 18:11] LABS: Lab Add On Test DONE
[2024-08-20 19:50] VITALS: BP 122/83; PULSE 68; RESP 18; TEMP 36.9; O2SAT 99
[2024-08-20 20:05] LABS: Lipase 1709 U/L (<78)
[2024-08-20 23:46] VITALS: BP 128/91; PULSE 67; RESP 18; TEMP 36.9; O2SAT 97
[2024-08-21] MEDS: Ketorolac 15 MG/ML VIAL IVP ×5 (00:25→23:01)
[2024-08-21] MEDS: POTASSIUM CHLORIDE/0.9% NACL 1,000 ML 100 MEQ IV ×2 (00:29→13:54)
[2024-08-21 03:21] VITALS: BP 126/89; PULSE 68; RESP 18; TEMP 36.3; O2SAT 96
[2024-08-21] MEDS: ACETAMINOPHEN 1,000 MG/100 ML BAG 400 MG IVPB ×4 (05:09→23:00)
[2024-08-21 06:48] LABS: Abs Immature Grans 0.03 10^3/uL (0.0-0.06); Absolute Basophil Count 0.04 10^3/uL (0.0-0.2); Absolute Eosinophil Count 0.32 10^3/uL (0.0-0.7); Absolute Lymphocyte Count 2.21 10^3/uL (1.2-3.4); Absolute Monocyte Count 0.72 10^3/uL (0.1-0.8); Absolute Neutrophil Count 3.49 10^3/uL (1.2-6.7); Basophils % 0.6 %; Eosinophils % 4.7 %; HGB 12.6 g/dL (13.5-17.5); Immature Grans % 0.4 %; Lymphocytes % 32.5 %; MCH 32.7 pg (27.0-33.0); MCV 91 fL (80-95); MPV 10.4 fL (8.0-11.0); Monocytes % 10.6 %; Neutrophils % 51.2 %; Platelet Count 150 10^3/uL (130-400); RBC 3.85 10^6/uL (4.36-5.78); RDW 11.6 % (11.8-14.1); RDW-SD 38.9 fL; WBC 6.81 10^3/uL (4.4-10.8)
[2024-08-21 07:18] LABS: BUN 9 mg/dL (7-18); CREATININE 0.6 mg/dL (0.70-1.30); Calcium 9.1 mg/dL (8.5-10.1); Chloride 103 mmol/L (98-107); Estimated GFR 119.07 (mL/min/1.73m2); Glucose 65 mg/dL (74-106); Magnesium 1.7 mg/dL (1.8-2.4); Potassium 4.1 mmol/L (3.5-5.1); Sodium 136 mmol/L (136-145)
[2024-08-21 08:12] VITALS: BP 114/82; PULSE 70; RESP 16; TEMP 36.6; O2SAT 99
[2024-08-21] MEDS: Normal Saline Flush 10 ML SYR IVP ×7 (09:05→23:01)
[2024-08-21] MEDS: Nicotine 21 MG/24 HR PATCH TD (09:06)
[2024-08-21 09:22] LABS: Lab Add On Test DONE
[2024-08-21 09:47] LABS: Lipase 1036 U/L (<78)
[2024-08-21] MEDS: MAGNESIUM SULFATE 1 GM/100 ML BAG IV_INF (09:50)
--- NOTE | 2024-08-21 11:08 | W.PM.PROGNOT ---
Date of Service Date of service: 08/21/24 Time of Service: 11:09 Assessment and Plan Assessment and plan (1) Pancreatitis: Status: Chronic Assessment and plan: Lipase decreased to 1036 Discontinue IVF Clear liquids - adv as blaine Pain controlled MRCP today - 1. There is a mural based focal abnormality in the gallbladder fundus measuring 9 x 8 mm which is either a polyp or noncalcified gallstone. Gallbladder is mildly distended but not edematous and there is no pericholecystic fluid. 2. There is a tiny focus of signal abnormality in the lower CBD which may represent a small calculus at this level. This CBD diameter is minimally prominent, measuring 8 mm. Lipid panel Tri 150 total cholesterol 124, LDL 51 HDL 43 As needed Zofran As needed Compazine As needed Morphine (2) Alcohol withdrawal: Status: Resolved Assessment and plan: EtOH/CIWA assessment discontinued Score 0 since admission (3) On deep vein thrombosis (DVT) prophylaxis: Assessment and plan: On Lovenox subcu (4) Hypomagnesemia: Status: Resolved Assessment and plan: Mag 1.7 - replaced (5) Discharge planning issues: Status: Resolved Assessment and plan: Discharge home when medically ready Discussed with Dr. Archibald Subjective Subjective Patient reports: no new complaints, tolerating liquids well, voiding w/o difficulty, bowel movement and afebrile; denies diarrhea, nausea, vomiting or shortness of breath Interval history since last seen: Paul states he is feeling better and states he has minimal pain, max 2/10. He is sitting in the chair, smiling. He would like to try some clear liquids. Exam Const General: cooperative and no acute distress [facility] Mouth: moist mucous membranes Eyes Conjunctivae: normal conjunctivae Sclera: normal sclerae Neck Neck: trachea midline Resp Auscultation: clear to auscultation bilaterally, no rales, no rhonchi and no wheezes Cardio Rate: regular rate and not tachycardic Rhythm: regular rhythm GI Palpation: soft, not firm, no guarding, no masses, not rigid and tender in the LUQ (Mild) Skin General skin exam: no rashes or lesions noted Neuro General: patient alert, patient awake and tone normal Extrem General: no calf tenderness and no edema Psych Appearance: grossly normal Mental Status: mental status grossly normal Objective Last Vital Signs Temp 36.6 C 08/21/24 08:12 Pulse 70 08/21/24 08:12 Resp 16 08/21/24 08:12 BP 114/82 08/21/24 08:12 Pulse Ox 99 08/21/24 08:12 Laboratory Results - last 24 hr 08/20/24 08/20/24 08/20/24 06:11 17:28 19:42 WBC RBC Hgb Hct MCV MCH MCHC RDW Plt Count MPV Immature Gran % Neutrophils % Lymphocytes % Monocytes % Eosinophils % Basophils % Nucleated RBC % Absolute Neutrophils Absolute Lymphocytes Absolute Monocytes Absolute Eosinophils Absolute Basophils Sodium Potassium Chloride Carbon Dioxide Anion Gap BUN Creatinine Est GFR (CKD-EPI 2020) Glucose Calcium Magnesium Triglycerides 150 Total Cholesterol 124 LDL Cholesterol, Calc 51 HDL Cholesterol 43 Lipase 1104 H Cancelled 1709 H Add-On Test Request DONE 08/21/24 06:17 WBC 6.81 RBC 3.85 L Hgb 12.6 L Hct 35.0 L MCV 91 MCH 32.7 MCHC 36.0 RDW 11.6 L Plt Count 150 MPV 10.4 Immature Gran % 0.4 Neutrophils % 51.2 Lymphocytes % 32.5 Monocytes % 10.6 Eosinophils % 4.7 Basophils % 0.6 Nucleated RBC % 0.0 Absolute Neutrophils 3.49 Absolute Lymphocytes 2.21 Absolute Monocytes 0.72 Absolute Eosinophils 0.32 Absolute Basophils 0.04 Sodium 136 Potassium 4.1 Chloride 103 Carbon Dioxide 19.0 L Anion Gap 14.0 H BUN 9 Creatinine 0.6 L Est GFR (CKD-EPI 2020) 119.07 Glucose 65 L Calcium 9.1 Magnesium 1.7 L Triglycerides Total Cholesterol LDL Cholesterol, Calc HDL Cholesterol Lipase 1036 H Add-On Test Request DONE PAW Have you Been Recently Intoxicated or Drunk Within the Last 30 days?: Yes Have you Ever Experienced Previous Episodes of Alcohol Withdrawal?: Yes Have you ever Experienced Withdrawal Seizures?: No Have you ever Experienced Delirium Tremens(DT)s?: Yes Have you ever undergone Alcohol Rehabilitation Treatment (i.e, inpt ot outpatient treatment programs)?: Yes Have you ever Experienced Blackouts?: Yes Have you ever Combined Alcohol with other Downers within the last 90 days?: No Have you ever Combined Alcohol with any other Substance of Abuse during the last 90 days?: No Positive Blood Alcohol level on Presentation? [PCS.BAL]: Yes Evidence of Increased Autonomic Activity (i.e. HR>120, tremor, sweating, agitation, nausea)?: No Result: 6 Time Spent with Patient Time Spent with Patient: 35-49 minutes Time was spent: preparing to see the patient(eg.review tests), ordering medications,tests, procedures, referring, communicating with other health daytime caregiver, indepentently interpreting results, counseling the patient and care coordination
[2024-08-21 11:11] VITALS: BP 121/78; PULSE 62; RESP 16; TEMP 36.7; O2SAT 98
[2024-08-21] MEDS: Pantoprazole 40 MG VIAL IVP (12:29)
[2024-08-21] MEDS: Enoxaparin 40 MG/0.4 ML SYR SC (12:29)
[2024-08-21 15:20] VITALS: BP 125/68; PULSE 71; RESP 16; TEMP 36.2; O2SAT 99
[2024-08-21 19:53] VITALS: BP 125/82; PULSE 74; RESP 16; TEMP 36.4; O2SAT 100
[2024-08-22 05:05] VITALS: BP 118/86; PULSE 57; RESP 16; TEMP 36.7; O2SAT 98
[2024-08-22 06:51] LABS: Abs Immature Grans 0.02 10^3/uL (0.0-0.06); Absolute Basophil Count 0.04 10^3/uL (0.0-0.2); Absolute Eosinophil Count 0.29 10^3/uL (0.0-0.7); Absolute Lymphocyte Count 2.19 10^3/uL (1.2-3.4); Absolute Monocyte Count 0.56 10^3/uL (0.1-0.8); Absolute Neutrophil Count 3.19 10^3/uL (1.2-6.7); Basophils % 0.6 %; Eosinophils % 4.6 %; HCT 35.1 % (40.0-50.0); HGB 12.5 g/dL (13.5-17.5); Immature Grans % 0.3 %; Lymphocytes % 34.8 %; MCHC 35.6 % (32.0-36.0); MCV 93 fL (80-95); MPV 9.6 fL (8.0-11.0); Monocytes % 8.9 %; Neutrophils % 50.8 %; Platelet Count 162 10^3/uL (130-400); RBC 3.79 10^6/uL (4.36-5.78); RDW 11.8 % (11.8-14.1); RDW-SD 39.5 fL; WBC 6.29 10^3/uL (4.4-10.8)
[2024-08-22 07:11] LABS: Anion Gap 11.2 mmol/L (3-11); BUN 6 mg/dL (7-18); CO2 22.8 mmol/L (21.0-32.0); CREATININE 0.7 mg/dL (0.70-1.30); Chloride 105 mmol/L (98-107); Estimated GFR 113.66 (mL/min/1.73m2); Glucose 93 mg/dL (74-106); Magnesium 1.5 mg/dL (1.8-2.4); Potassium 3.9 mmol/L (3.5-5.1); Sodium 139 mmol/L (136-145)
[2024-08-22 07:16] LABS: Calcium 9.7 mg/dL (8.5-10.1)
[2024-08-22 07:32] VITALS: BP 152/88; PULSE 52; RESP 14; TEMP 36.3; O2SAT 99
[2024-08-22 07:33] LABS: Lipase 610 U/L (<78)
[2024-08-22] MEDS: Normal Saline Flush 10 ML SYR IVP (08:57)
[2024-08-22] MEDS: Nicotine 21 MG/24 HR PATCH TD (08:57)
[2024-08-22 09:44] VITALS: BP 111/72
--- NOTE | 2024-08-22 10:54 | DSE_ITS ---
Date of service: 08/22/24 Time of Service: 10:54 DS: Diagnosis Discharge Diagnosis (1) Pancreatitis: Status: Chronic (2) Alcohol withdrawal: Status: Resolved (3) Hypomagnesemia: Status: Resolved Discharge Plan Disposition Patient Disposition: Home Condition: Improving Discharge Details Reason For Visit: pancreatitis,intractable abdominal pain,hypomagnes Admit Date/Time: 08/18/24 09:35 Admit Provider: Aguilar William Attending Provider: Aguilar William Primary Care Provider: OWEN GARRISON Hospital Course Hospital Course: This is a 49-year-old male patient past medical history significant for alcohol use disorder, tobacco use, bursitis, pancreatitis who presents to the emergency department for complaints of abdominal pain. He was admitted to the hospitalist services for further treatment and monitoring. Alcohol withdrawal symptoms treated with phenobarb. He was n.p.o. on IV fluids. Received ketorolac for complaints of chest pain which was pleuritic thought to be pericarditis. He had no ischemic changes on his EKG troponins unremarkable. Hemodynamically he remained stable. His symptoms continue to improve his diet was advanced. Today he is taking good oral intake he has no abdominal pain. He is stable for disch arge to home. Findings from his abdominal MRI were discussed and he should discuss further outpatient recommendations for further evaluation of his gallbladder as warranted. He is being discharged to home with no new services. There are no new medications at discharge. Discharge discussed with Dr. Archibald [place] Meds and New Rx's Prescriptions: Continued acetaminophen 500 mg capsule 1,000 mg PO Q6H PRN PRN Discontinued meclizine 25 mg tablet 25 mg PO TID PRN PRN (Reason: dizziness) Discharge Instructions Instructions: Acute pancreatitis, Alcohol Use Disorder (DC), Hypomagnesemia Additional Instructions: Do not use alcohol. discuss findings in your gallbladder with your doctor for further recommendations and follow up: Gallbladder is mildly distended. There is a small gallstone or polyp at the level the fundus which measures 9 x 8 mm. Gallbladder is not edematous and there is no pericholecystic fluid. CBD diameter is 8 mm which is minimally prominent. There is a tiny focus of signal abnormality in the lower CBD. This may be a tiny calculus. Stand Alone Forms: Nursing Discharge Form Referrals: OWEN GARRISON MOLDING MACHINE OPERATOR [Primary Care Provider] - 08/29/24 9:30 am Activity:: Activity as Tolerated Equipment/Supplies:: No Equipment Needed Diet:: As Tolerated Discharge Orders Discharge Orders: Discharge Order (Routine); Ordered 08/22/24 Ordered By: Annabelle Merritt DS: Summary Time Spent with Patient providing and/or coordinating discharge services: Less than 30 minutes Status at Discharge Functional status at discharge: independent ambulation Overall status at discharge: patient is back to baseline Mental Status: mental status grossly normal Speech and Movement: speech and movement normal Mood: congruent mood Affect: normal affect Quality:SDOH Health Related Social Needs: Health related social needs housing instability, house d, with risk of homelessness (Z59.811) Health related social needs details Has mold in his ap artment, would be interested in cyber legal advisor resources for tenant rights Referrals and interventions: pt states he lives at senior care at [facility] Exam Const General: cooperative and no acute distress HENMT Mouth: moist mucous membranes Eyes Conjunctivae: normal conjunctivae Sclera: normal sclerae Resp Auscultation: clear to auscultation bilaterally Cardio Rate: regular rate Rhythm: regular rhythm GI Palpation: soft and no guarding Skin General skin exam: no rashes or lesions noted Neuro General: patient alert, patient awake and tone normal Extrem General: no calf tenderness and no edema Psych Appearance: grossly normal Mental Status: mental status grossly normal Speech and Movement: speech and movement normal Mood: congruent mood Affect: normal affect DS: Data Vitals/I&O Vitals and I&O: Vital Signs Temperature 36.3 C L 08/22/24 07:32 Temperature Source Temporal Artery Scan 08/22/24 07:32 Pulse 52 L 08/22/24 07:32 Pulse Rhythm Regular 08/18/24 11:00 Pulse 60 08/18/24 10:36 Respiratory Rate 14 08/22/24 07:32 Respiratory Effort Normal 08/18/24 11:00 Respiratory Depth Normal 08/18/24 11:00 Respiratory Pattern Normal 08/18/24 11:00 Blood Pressure 111/72 08/22/24 09:44 Blood Pressure Mean 105 08/18/24 10:36 Blood Pressure Position Sitting 08/18/24 07:06 Pulse Oximetry 99 08/22/24 07:32 Oxygen Delivery Method Room Air 08/22/24 07:32 Oxygen Flow Rate 0 08/22/24 07:32 Pain Level 3 08/22/24 07:32 Comment RN notified. 08/22/24 07:32 Intake & Output 08/21/24 08/21/24 08/22/24 11:59 23:59 11:59 Intake Total 200 / 9882.601 3724.333 / 1803.333 Output Total 400 / 700 300 / 700 Balance -200 / 6396.402 5218.333 / 1103.333 Intake: IV 200 / 2049.147 4833.333 / 1803.333 Output: Urine 400 / 700 300 / 700 Other: Urine Color Yellow Urine Appearance Clear Comment Voided directly into the toilet Stool Size Small Stool Characteristics Soft Data Completed and Pending Labs on day of discharge: Labs from last 24 hours 08/22/24 08/22/24 06:35 05:35 WBC 6.29 RBC 3.79 L Hgb 12.5 L Hct 35.1 L MCV 93 MCH 33.0 MCHC 35.6 RDW 11.8 Plt Count 162 MPV 9.6 Immature Gran % 0.3 Neutrophils % 50.8 Lymphocytes % 34.8 Monocytes % 8.9 Eosinophils % 4.6 Basophils % 0.6 Nucleated RBC % 0.0 Absolute Neutrophils 3.19 Absolute Lymphocytes 2.19 Absolute Monocytes 0.56 Absolute Eosinophils 0.29 Absolute Basophils 0.04 Sodium 139 Potassium 3.9 Chloride 105 Carbon Dioxide 22.8 Anion Gap 11.2 H BUN 6 L Creatinine 0.7 Est GFR (CKD-EPI 2020) 113.66 Glucose 93 Calcium 9.7 Magnesium 1.5 L Lipase 610 H Cancelled PFSH All Active Problems (Updated 08/20/24 @ 17:23 by Ester Mauricio NP) Pancreatitis (Chronic) Dizziness (Acute) Fever (Acute) Nicotine addiction (Acute) Gastroenteritis (Acute) Gastritis (Acute) Alcoholic pancreatitis (Acute) Trochanteric bursitis, right hip (Acute) Avascular necrosis of bone of left hip (Acute) Chest pain (Acute) due to ETOH Hepatic steatosis (Acute) COVID-19 ruled out (Acute) Tobacco abuse (Acute) Impairment of balance (Acute) Chronic vertigo (Acute) Electrolyte and fluid disorder (Acute) Medical History On deep vein thrombosis (DVT) prophylaxis Surgical History 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) Cyst of right upper eyelid Family History Maternal Grandfather Alcohol abuse Maternal Uncle Alcohol abuse Social History Smoking/Tobacco Use Status: Current every day Tobacco Type: cigarettes Years smoked: 25 Smoking risk assessment performed?: Yes Alcohol Intake: current Alcohol Intake frequency: 0-2 drinks per day Alcohol type: beer and hard liquor Details: last drink was 2 weeks ago Drug use: Never Substance use type: does not use Housing: homeless 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 Time Spent with Patient Time Spent with Patient: <45 minutes Time was spent: preparing to see the patient(eg.review tests), obtaining and/or reviewing separately otained hiistory, referring, communicating with other health health care coordinator, indepentently interpreting results and counseling the patient
--- NOTE | 2024-08-22 15:19 | CMDISCH_ITS ---
Date of service: 08/22/24 Time of Service: 15:19 LACE Index Scoring Tool Questions: Length of Stay (in days): 4 - 6 Was the patient admitted via the E.D.?: Yes E.D. Visits: 8 Answers: Total Score: 11 Risk of Readmission: High Risk Care Management Discharge Plan Reason for Hospitalization: Pancreatitis Discharge Plan: Paul is discharged with a plan to follow up with his PCP on 08/29/24, as scheduled. He is taking the [facility] shuttle back to the halfway where his bed is reserved. No new services are ordered prior to discharge. Paul will follow up with [facility] at [facility]. Patient/Family Education Needs: Review discharge instructions, limitations and plan to follow up with community providers. Discuss ask me three. Services Needed at Discharge: Transportation ([facility] shuttle) SDOH Health Related Social Needs: Health related social needs housing instability, house d, with risk of homelessness (Z59.811) Health related social needs details Has mold in his ap artment, would be interested in legal word processor resources for tenant rights Health related social needs: housing instability, housed, with risk of juan elessness(Z59.811) Referrals and interventions: pt states he lives at halfway at [facility] Care Management Referrals: [facility]
--- NOTE | 2024-08-22 15:19 | PDOC.CMDIS ---
Date of service: 08/22/24 Time of Service: 15:19 LACE Index Scoring Tool Questions: Length of Stay (in days): 4 - 6 Was the patient admitted via the E.D.?: Yes E.D. Visits: 8 Answers: Total Score: 11 Risk of Readmission: High Risk Care Management Discharge Plan Reason for Hospitalization: Pancreatitis Discharge Plan: Paul is discharged with a plan to follow up with his PCP on 08/29/24, as scheduled. [facility] is [facility]. No new services are ordered prior to discharge. Paul will follow up with CHW at [facility]. Patient/Family Education Needs: Review discharge instructions, limitations and plan to follow up with community providers. Discuss ask me three. Services Needed at Discharge: Transportation ([facility] shuttle) SDOH Health Related Social Needs: Health related social needs housing instability, housed, with risk of homelessness (Z59.811) Health related social needs details Has mold in his apartment, would be interested in commercial real estate paralegal resources for tenant rights Health related social needs: housing instability, housed, with risk of homelessness(Z59.811) Referrals and interventions: pt states he lives at prison at [facility] Care Management Referrals: [facility]
== END 2024-08-22 11:58 | disposition home or self-care (01) | DRG 315 ==
LOC: ER 09:15 → MS 10:47
PROVIDERS: Nurse Practitioner Acute Care; Nurse Practitioner Family; Admitting Provider Family Medicine; Emergency Provider Student in an Organized Health Care Education/Training Program; PCP Nurse Practitioner Family; Visit Provider Family Medicine
DX: F10.139 Alcohol abuse with withdrawal, unspecified; I30.9 Acute pericarditis, unspecified; M87.852 Other osteonecrosis, left femur; Z59.01 Sheltered homelessness; K86.0 Alcohol-induced chronic pancreatitis; E83.42 Hypomagnesemia; K76.0 Fatty (change of) liver, not elsewhere classified; R07.89 Other chest pain; R94.31 Abnormal electrocardiogram [ECG] [EKG]; Y90.4 Blood alcohol level of 80-99 mg/100 ml; R42 Dizziness and giddiness; F17.210 Nicotine dependence, cigarettes, uncomplicated; K29.70 Gastritis, unspecified, without bleeding; M70.61 Trochanteric bursitis, right hip; R93.2 Abnormal findings on diagnostic imaging of liver and biliary tract
CPT/HCPCS: 00123; 36415; 80048; 80053; 80061; 80307; 83690; 85652; 93005; 96361; 96365; 96367; 96375; 99285; J1650; 71046; 74181; 76705; 80320; 83735; 84484; 85025; 85730; 86140; 93010; 93306; 99223; 99232; 99233; 99239; J0131; J0780; J1885; J2270; J2405; J2470; J2560; J3010; J3411; J3475

== ENCOUNTER 2024-09-04 17:30 | Emergency (ER) | payer MEDICAID, SELFPAY ==
[2024-09-04] VITALS (23 sets, daily range): BP systolic 113–131; BP diastolic 74–91; PULSE 64–88; RESP 14–21; TEMP 35.8; O2SAT 93–99
--- NOTE | 2024-09-04 17:30 | DI.CT_ITS ---
Exam(s) CT HEAD WO EXAM: CT HEAD WO CLINICAL HISTORY: AMS, vision disturbance. TECHNIQUE: Imaging Protocol: Axial computed tomography images with coronal and sagittal reformatted images were created and reviewed COMPARISON: CT CT HEAD WO from 12/18/2023 FINDINGS: Ventricles and Extra axial spaces: Normal in size and morphology for the patient's age. Hemorrhage: None. Cerebral parenchyma: There is no evidence of an acute territorial infarct. No acute mass effect. Midline shift: None. Brainstem/Cerebellum: Normal. Calvarium: Normal. Visualized Paranasal sinuses/Mastoids: Clear. Soft Tissues: Unremarkable. IMPRESSION: No acute intracranial process. RADIATION DOSE DELIVERED: 866.88mGy.cm Total DLP DATA REPOSITORY: All CT scans at this facility are submitted to the National Radiology Data Registry (NRDR) Dose Index Registry (DIR) with the [employer] (ACR). RADIATION OPTIMIZATION: All CT scans at this facility use at least one of these dose optimization te chniques: automated exposure control; mA and/or kV adjustment per patient size (includes targeted exa ms where dose is matched to clinical indication); or iterative reconstruction.
--- NOTE | 2024-09-04 17:50 | ED.GENADUL_ITS ---
Discharge Plan Disposition Patient Disposition: Home Condition: Stable Discharge Details Clinical Impression: Alcohol use disorder Primary Care Provider: OWEN GARRISON ED Provider: Kellie Wilkinson Home Meds and New Rx's Prescriptions: No Action acetaminophen 500 mg capsule 1,000 mg PO Q6H PRN PRN Discharge Instructions Instructions: Alcohol Use Disorder ED Additional Instructions: You were seen in the emergency department today for evaluation of intoxication and seeing spots. In our department you have a full physical examination performed, had laboratory studies that were reassuring though your ethanol level was quite elevated. You met with a member of the monomer recovery operator team, and at this time are desiring discharge back to care senior living. You should follow-up with the monomer recovery operator at your scheduled phone call, and please follow-up with your primary care provider in the next few days to discuss this visit and any symptoms that change, worsen, or persist. Thank you for allowing us to be part of your care. HPI General Mode of arrival: EMS . Date/Time Provider Initiated Documentation: 09/04/24 17:34 . Limitations to Documentation: no limitations . Information obtained by: patient, EMS and old records reviewed . HPI Narrative: HPI: This is a 49-year-old male patient with a history of alcohol use disorder who is presenting for evaluation of alteration in vision. The patient reports that he drank 4 bottles falls since evening, and was walking to the senior living when he felt like his color vision changed and he was seeing things greater than yellow. He reports that he felt like he needed to lean on things,, and summoned EMS. States that he is not taking any recent falls or injuries, did not hit his other substance use however any nicotine/tobacco, states that he has a history of alcohol withdrawal but has never had an alcohol withdrawal seizure. He has had poor p.o. intake and has not eaten since last night,, states that he did have an episode of vomiting earlier today. Exam: Gen: Awake and alert, in no apparent distress HEENT: Non-icteric sclera, PERRL Neck: Supple Lungs: No apparent respiratory distress, normal respiratory effort. Lung is clear and equal bilaterally without wheezes, rhonchi, rales CV: Appears well perfused, regular rate and rhythm, strong distal pulses Abdomen: Non-distended, soft, nontender MSK: Moves 4 extremities without apparent limitation in ROM Skin: Visualized skin without rashes, cyanosis. Neuro: No obvious focal deficits or facial asymmetry. Speaks in full, clear sentences. Psych: Appropriate for situation. MDM: This is a 49-year-old male patient presenting for evaluation of vision changes in the setting of alcohol intoxication. My differential includes but is not limited to intoxication, withdrawal syndromes, metabolic or electrolyte derangements, anemia, kidney and liver injury. Certainly considered intracranial abnormality such as hemorrhage or CVA. The patient does have a documented history of chronic vertigo and poor balance and this may have been exacerbated this evening by his intoxication. He has no fever did consider infectious abnormal evidence including urinary tract infection. We will obtain a Noncon head CT, and laboratory studies to include CBC, CMP, magnesium, troponin, ethanol level, urinalysis and UDS. ED Course: I reviewed the patient's laboratory studies, which shows no leukocytosis, anemia or thrombocytopenia. Chemistry panel reveals no significant metabolic or electrolyte abnormalities, evidence of kidney dysfunction, AST slightly elevated to 56. Troponin is negative, UA noninfectious, U tox negative patient does have an elevated ethanol level of 378. The patient does have a history of daily drinking, and given his exam ination which improves with steady gait, full sentences without slurring, I suspect that he likely has a chronically elevated ethanol level. The patient had a visit with the monomer recovery operator his, will plan to call him tomorrow. At this time he is not interested in any sobriety resources other than the monomer recovery operator. At this time, the patient has had a full medical evaluation and is safe for disc harge to home with [facility] as his transportation. They are hemodynamically stable, ambulatory, and tolerating PO. They are understanding of the follow-up plan and return precautions. They left our facility without incident. Kellie Wilkinson MD Related Data Home Medications ?Medication ?Instructions ?Recorded ?Confirmed acetaminophen 500 mg capsule 1,000 mg PO Q6H PRN PRN 05/18/24 09/04/24 Allergies Allergy/AdvReac Type Severity Reaction Status Date / Time hydromorphone (From Dilaudid) AdvReac Intermediate Other (See Verified 09/04/24 18:39 Comment) General Stated Complaint: Dizzy/Sync SARAH: 3 Course Vital Signs Vital signs: Vital Signs Temperature 35.8 C L 09/04/24 17:33 Pulse 83 09/04/24 17:33 Respiratory Rate 18 09/04/24 17:33 Blood Pressure 128/91 H 09/04/24 17:33 Pulse Oximetry 99 09/04/24 17:33 Temperature 35.8 C L 09/04/24 17:33 Temperature Source Tympanic 09/04/24 17:33 Pulse 74 09/04/24 17:37 Respiratory Rate 17 09/04/24 17:37 Blood Pressure 128/91 H 09/04/24 17:37 Blood Pressure Mean 100 09/04/24 17:37 Pulse Oximetry 98 09/04/24 17:37 Oxygen Delivery Method Room Air 09/04/24 17:33 Oxygen Flow Rate 0 09/04/24 17:33 Medical Decision Making Quality:SDOH Health Related Social Needs: Health related social needs housing instability, house d, with risk of homelessness (Z59.811) Health related social needs details Has mold in his ap artment, would be interested in patent prosecution paralegal resources for tenant rights [facility] All Active Problems (Updated 09/04/24 @ 20:23 by Kellie Wilkinson MD) Alcohol use disorder (Acute) Pancreatitis (Chronic) Dizziness (Acute) Fever (Acute) Nicotine addiction (Acute) Gastroenteritis (Acute) Gastritis (Acute) Alcoholic pancreatitis (Acute) Trochanteric bursitis, right hip (Acute) Avascular necrosis of bone of left hip (Acute) Chest pain (Acute) due to ETOH Hepatic steatosis (Acute) COVID-19 ruled out (Acute) Tobacco abuse (Acute) Impairment of balance (Acute) Chronic vertigo (Acute) Electrolyte and fluid disorder (Acute) Medical History (Updated 09/04/24 @ 20:23 by Kellie Wilkinson MD) Anxiety Acid reflux 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 Osteonecrosis bone of left hip 04/23/24 CT evidence of a vascular necrosis of left hip Alcohol abuse Gallstone (~08/2024) On deep vein thrombosis (DVT) prophylaxis Surgical History 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) Cyst of right upper eyelid Family History Maternal Grandfather Alcohol abuse Maternal Uncle Alcohol abuse Social History Smoking/Tobacco Use Status: Current every day Tobacco Type: cigarettes Years smoked: 25 Smoking risk assessment performed?: Yes Alcohol Intake: current Alcohol Intake frequency: 0-2 drinks per day Alcohol type: beer and hard liquor Details: last drink was 2 weeks ago Drug use: Never Substance use type: does not use Housing: homeless 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 Do you feel safe at home: Yes Do you feel safe in your relationship?: Yes Additional [facility] history[facility] PAWSS Have you Been Recently Intoxicated or Drunk Within the Last 30 days?: Yes Have you Ever Experienced Previous Episodes of Alcohol Withdrawal?: Yes Have you ever Experienced Withdrawal Seizures?: No Have you ever Experienced Delirium Tremens(DT)s?: Yes Have you ever undergone Alcohol Rehabilitation Treatment (i.e, inpt ot outpatient treatment programs)?: Yes Have you ever Experienced Blackouts?: Yes Have you ever Combined Alcohol with other Downers within the last 90 days?: No Have you ever Combined Alcohol with any other Substance of Abuse during the last 90 days?: No Result: 5
[2024-09-04 18:04] LABS: Abs Immature Grans 0.02 10^3/uL (0.0-0.06); Absolute Basophil Count 0.06 10^3/uL (0.0-0.2); Absolute Eosinophil Count 0.12 10^3/uL (0.0-0.7); Absolute Monocyte Count 0.65 10^3/uL (0.1-0.8); Absolute Neutrophil Count 3.62 10^3/uL (1.2-6.7); Basophils % 0.8 %; Eosinophils % 1.5 %; HCT 40.5 % (40.0-50.0); HGB 14.3 g/dL (13.5-17.5); Immature Grans % 0.3 %; Lymphocytes % 42.5 %; MCHC 35.3 % (32.0-36.0); MCV 94 fL (80-95); MPV 9.7 fL (8.0-11.0); Monocytes % 8.4 %; Neutrophils % 46.5 %; Platelet Count 264 10^3/uL (130-400); RBC 4.33 10^6/uL (4.36-5.78); RDW 12.5 % (11.8-14.1); WBC 7.77 10^3/uL (4.4-10.8)
[2024-09-04 18:06] LABS: Bilirubin Negative (Negative); Blood Negative (Negative); Clarity Clear (Clear); Glucose Negative (Negative); Ketones Negative (Negative); Leukocyte Esterase Negative (Negative); Nitrite Negative (Negative); Urobilinogen 0.2 mg/dL (Up to 0.2); pH 5.5 (5-8)
[2024-09-04 18:37] LABS: *AMPHETAMINES SCREEN URINE Negative (Negative); *BARBITURATES SCREEN URINE Negative (Negative); *BENZODIAZEPINES SCREEN URINE Negative (Negative); Cannabinoids THC Negative (Negative); Cocaine Screen,Urine Negative (Negative); METHADONE URINE SCREEN Negative (Negative); OPIATES URINE SCREEN Negative (Negative); Tricyclic Antidepressants Negative (Negative)
[2024-09-04 18:38] LABS: Albumin 3.8 g/dL (3.4-5.0); BUN 8 mg/dL (7-18); CREATININE 0.7 mg/dL (0.70-1.30); Estimated GFR 113.66 (mL/min/1.73m2); Glucose 101 mg/dL (74-106); Total Protein 7.9 g/dL (6.4-8.2)
[2024-09-04 18:39] LABS: ALT 34 U/L (16-63); AST 56 U/L (15-37); Alkaline Phosphatase 89 U/L (46-116); Anion Gap 11.2 mmol/L (3-11); CO2 23.8 mmol/L (21.0-32.0); Chloride 109 mmol/L (98-107); ETHANOL BLOOD 378.2 mg/dL (<10); Potassium 3.7 mmol/L (3.5-5.1); Sodium 144 mmol/L (136-145); Troponin I 5 ng/L (<or=76)
--- OUTSIDE RECORDS SUMMARY | 2024-09-04 19:09 | XMS_ITS | Encounter Summary ---
Author Organization [facility] Address [address] [place] [address] Care Team Providers Care Blocker Automatic Name Role Phone Monica Mulligan MD Primary Care Provider [phone] Encounter Details Date Type Department Care Team ([facility] st Contact Info) Description 07/27/2021 Lab Requisition [facility] [address] [place] [address] Bao Sharpe Jr., MD [address] [place] [address] Encounter for other general examination [...] cartilage ranges averages 0.1 cm in thickness. Icer Machine sections are submitted for acid decalcification as follows: BLOCK HOLDEN A1-A2- Five traffic representative sections including neck and articular surface ELSY DEMPSEY([facility]) 07/28/2021 10:12 08/04/2021 9:08 [facility] Resident/Arturo w: Manolo Portillo MD 08/04/2021 9:08 [facility] Performing Lab [facility] 9:08 [facility] Scanned Images 08/04/2021 9:08 [facility] Tissue SPECIMEN FROM BONE / Unknown 07/27/2021 10:20 EST 07/27/2021 22:10 EST us Bao Sharpe Jr., MD PATHOLOGY ORDER BERNARD Final Result [facility] [address] [place] [address] documented in this encounter Visit Diagnoses Diagnosis Encounter for other general examination documented in this encounter Care Teams Blocker Automatic Relationship Specialty Start Date End Date Monica Mulligan MD [address] [place] [phone] PCP - General 11/29/16 documented as of this encounter
--- OUTSIDE RECORDS SUMMARY | 2024-09-04 19:09 | XMS_ITS | Encounter Summary ---
Author Organization [facility] Address [address] [place] [address] Care Team Providers Care Bakery Machine Mechanic Supervisor Name Role Phone Eleanor Whitman MD Primary Care Provide r Unavailable Encounter Details Date Type Department Care Team (Late st Contact Info) Description 11/25/2016 Results Only [facility] [phone] Jackie Marin, DO [address] [place] [address] Social History Tobacco Use Types [...] when reading/interpret ing unformatted reports. Name: ? MICKEY PARSOND Taj ? Accession #: ? [id number] ? : ? 1975 (Age: 41) ??M [...] is filled with laminated orthokeratin. ??(Dr. Dumont)/[facility] Document reviewed and electronically [...] Camilo 11/26/2016 9:58 AM End of Report [facility] 11/25/2016 5:50 EDT 11/26/2016 5:50 EDT us Jackie Marin DO PATHOLOGY ORDERABLES Final Res ult [facility] [address] [place] [address] documented in this encounter Visit Diagnoses Not on filedocumented in this encounter Care Teams Bakery Machine Mechanic Supervisor Relationship Specialty Start Date End Date Eleanor Whitman MD PCP - General 11/26/1611/19 documented as of this encounter
--- OUTSIDE RECORDS SUMMARY | 2024-09-04 19:09 | XMS_ITS | Encounter Summary ---
Author Organization [facility] Address [address] [place] [address] Care Team Providers Care Supervisor Hardboard Name Role Phone Monica Mulligan MD Primary Care Provider [phone] Encounter Details Date Type Department Care Team ([facility] Contact Info) Description 02/20/2020 Lab Requisition [facility] Pathology & Laboratory Medicine - [facility] [address] [place], [place] [address] Outr Resulting Lab, Provider Social History Tobacco [...] MICROBIOLOGY - GENER AL ORDERABLES Final Result [facility] [address] [place] [address] * COVID-19 TESTING (02/20/2020 22:10 EDT) COVID-19 rt-PCR Result Negative Negative 02/21/2020 12:52 EDT [facility] Comment: This test has [...] history, and epidemiological information. Performed on the Slide instrument Performing Lab [place] [facility] Lab 02/21/2020 12:52 EDT [facility] Swab 02/20/2020 22:1 0 EDT 02/21/2020 8:37 EDT us Provider Outr Resulting Lab MICROBIOLOGY - GENER AL ORDERABLES Final Result [facility] [address] [place] [address] documented in this encounter Visit Diagnoses Not on filedocumented in this encounter Additional Health Concerns Infection Onset Date Last Indicated Resolved Time R/O COVID-19 02/20/2020 02/20/2020 02/25/2020 22:1 7 EDT documented as of this encounter Care Teams Supervisor Hardboard Relationship Specialty Start Date End Date Monica Mulligan MD [address] [place] [phone] PCP - General 11/29/16 documented as of this encounter
--- OUTSIDE RECORDS SUMMARY | 2024-09-04 19:09 | XMS_ITS | Referral Summary ---
Author Organization [facility] Address [address] [place] [address] Care Team Providers Care Promotions Executive Producer Name Role Phone Monica Mulligan MD Primary Care Provider [phone] Social History Tobacco Use Types Packs/Day Years [...] C Antibody Negative Negative 02/19/2020 11:53 EDT [facility] Blood VENOUS BLOOD / Unknown 02/18/2020 13:47 EDT 02/18/2020 20:44 EDT us Provider Outr Resulting Lab CHEMISTRY & BLOOD GA S ORDERABLES Final Result [facility] [address] [place] [address] from Last 3 Months or Most Recently Relevant to Health Maintenance Insurance MEDICAID ACO [place] Care Teams Promotions Executive Producer Relationship Specialty Start Date End Date Monica Mulligan MD [address] [place] [phone] PCP - General 11/29/16
--- OUTSIDE RECORDS SUMMARY | 2024-09-04 19:09 | XMS_ITS | Encounter Summary ---
Author Organization [facility] Address [address] [place] [address] Care Team Providers Care Pourer Crane Ladle Name Role Phone Monica Mulligan MD Primary Care Provider [phone] Encounter Details Date Type Department Care Team ([facility] Contact Info) Description 02/18/2020 Lab Requisition [place] Pathology & Laboratory Medicine - [facility] [address] [place], [place] [id number] Outr Resulting Lab, Provider Social History Tobacco [...] 13:47 EDT) Hold Hold 02/18/2020 21:45 EDT [facility] Blood VENOUS BLOOD / Unknown 02/18/2020 13:47 EDT 02/18/2020 20:44 EDT us Provider Outr Resulting Lab LAB INFO SERVICE AND SUPPORT & PHONE RESULT Final Result Performing Organization Address City/[facility]/ZIP Co de Phone Number [facility] [address] [place] [address] * HEPATITIS B SURFACE ANTIBODY (02/18/2020 13:47 EDT) Hep B Surface Ab, Quantitative <3.1 See Note mIU/mL 02/19/2020 11:14 EDT [facility] Comment: Reference Range for Hep B Surface Ab, Quant: Positive: >= 10.0 mIU/mL Negative: ??< 10.0 mIU/mL Patient is presumed to not be immune to infection with Hepatitis B Virus. Hep B Surface Ab, Qualitative Negative See Note 02/19/2020 11:14 EDT [facility] Comment: Reference Range for Hep B Surface Ab, Qual: Unvaccinated: ??Negative Vaccinated: ??Positive Blood VENOUS BLOOD / Unknown 02/18/2020 13:47 EDT 02/18/2020 20:44 EDT us Provider Outr Resulting Lab CHEMISTRY & BLOOD GA S ORDERABLES Final Result Performing Organization Address [facility]/ZIP Co de Phone Number [facility] [address] [place] [id number] * HEPATITIS B SURFACE ANTIGEN (02/18/2020 13:47 EDT) Hep B Surface Ag Negative Negative 02/19/2020 11:12 EDT [facility] Blood VENOUS BLOOD / Unknown 02/18/2020 13:47 EDT 02/18/2020 20:44 EDT us Provider Outr Resulting Lab CHEMISTRY & BLOOD GA S ORDERABLES Final Result Performing Organization Address [facility] Co de Phone Number [facility] [address] [place] [address] * HEPATITIS C AB W REFLEX TO HCV RNA BY PCR (02/18/2020 13:47 EDT) Hep C Antibody Negative Negative 02/19/2020 11:53 EDT [facility] Blood VENOUS BLOOD / Unknown 02/18/2020 13:47 EDT 02/18/2020 20:44 EDT us Provider Outr Resulting Lab CHEMISTRY & BLOOD GA S ORDERABLES Final Result [facility] [address] [place] [address] documented in this encounter Visit Diagnoses Not on filedocumented in this encounter Additional Health Concerns Infection Onset Date Last Indicated Resolved Time R/O COVID-19 02/20/2020 02/20/2020 02/25/2020 22:1 7 EDT documented as of this encounter Care Teams Pourer Crane Ladle Relationship Specialty Start Date End Date Monica Mulligan MD [address] [place] [phone] PCP - General 11/29/16 documented as of this encounter
--- OUTSIDE RECORDS SUMMARY | 2024-09-04 19:09 | XMS_ITS | Clinical Summary ---
Author Organization [facility] Address [address] [place] [address] Care Team Providers Care Chief Business Development Officer Name Role Phone Monica Mulligan MD Primary Care Provider [phone] Social History Tobacco Use Types Packs/Day Years [...] - 19+ 3-dose series) 03/15 COVID-19 Vaccine (2023- season) 2024 Hepatitis C Screen Completed 02/18/2020 Procedures Procedure Name Priority Date/Time Associated Diagnosis Comments HEPATITIS C AB W REFLEX TO HCV RNA BY PCR Today 02/18/2020 13:47 EDT from Last 3 Months or Most Recently Relevant to Health Maintenance Results * HEPATITIS C AB W REFLEX TO HCV RNA BY PCR (02/18/2020 13:47 EDT) Hep C Antibody Negative Negative 02/19/2020 11:53 EDT [facility] Blood VENOUS BLOOD / Unknown 02/18/2020 13:47 EDT 02/18/2020 20:44 EDT us Provider Outr Resulting Lab CHEMISTRY & BLOOD GA S ORDERABLES Final Result [facility] [address] [place] [address] from Last 3 Months or Most Recently Relevant to Health Maintenance Insurance MEDICAID [employer] Care Teams Chief Business Development Officer Relationship Specialty Start Date End Date Monica Mulligan MD [address] [place] [phone] PCP - General 11/29/16
--- OUTSIDE RECORDS SUMMARY | 2024-09-04 19:09 | XMS_ITS | Encounter Summary ---
Author Organization [facility] Address [address] [place] [address] Care Team Providers Care Wall Crane Operator Name Role Phone Unavailable Primary Care Provider Unavailabl e Encounter Details Date Type Department Care Team (Latest Contact Info) Description 11/25/2016 6:49 EDT - 11/25/2016 23:59 EDT Hospital Encounter [address] [address] Eleanor Whitman MD Discharge Disposition: Home or Self Care Social History Tobacco Use Types Packs/Day Years Used Date Smoking Tobacco: Never Assessed Sex and Gender Information Value Date Recorded Sex Assigned at Not on file Legal Sex Male 5:49 EDT Gender Identity Not on file Sexual Orientation Not on file documented as of this encounter Discharge Disposition Disposition Code Departure Means Destination Home or Self [facility]dc documented in this encounter Plan of Treatment Not on file documented as of this encounter Visit Diagnoses Not on filedocumented in this encounter
--- OUTSIDE RECORDS SUMMARY | 2024-09-04 19:09 | XMS_ITS | Encounter Summary ---
Author Organization [facility] Address [address] [place] [address] Care Team Providers Care Stitch Welder Name Role Phone Monica Mulligan MD Primary Care Provider [phone] Encounter Details Date Type Department Care Team ([facility] Contact Info) Description 01/03/2022 Lab Requisition [facility] Pathology & Laboratory Medicine - [facility] [address] [place], [place] [address] Outr Resulting Lab, Provider Social History Tobacco [...] Lyme Ab Negative Negative 01/04/2022 10:17 EDT [facility] Blood VENOUS BLOOD / Unknown 01/03/2022 9:13 EDT 01/03/2022 17:09 EDT us Provider Outr Resulting Lab IMMUNOLOGY AND SEROL OGY ORDERABLES Final Result [facility] [address] [place] [address] documented in this encounter Visit Diagnoses Not on filedocumented in this encounter Care Teams Stitch Welder Relationship Specialty Start Date End Date Monica Mulligan MD [address] [place] [phone] PCP - General 11/29/16 documented as of this encounter
--- OUTSIDE RECORDS SUMMARY | 2024-09-04 19:09 | XMS_ITS | Encounter Summary ---
Author Organization [facility] Address [address] [place] [address] Care Team Providers Care Shear Setter Name Role Phone Monica Mulligan MD Primary Care Provider [phone] Encounter Details Date Type Department Care Team ([facility] Contact Info) Description 04/09/[address] [facility] Pathology & Laboratory Medicine - [facility] [address] [place], [place] [id number] Outr Resulting Lab, Provider Social History Tobacco [...] MICROBIOLOGY - GENER AL ORDERABLES Final Result [facility] [address] [place] [address] * COVID-19 TESTING (04/09/2020 12:55 EDT) COVID-19 rt-PCR Result Negative Negative 04/09/2020 19:41 EDT [facility] Comment: This test [...] history, and epidemiological information. Performed on the Web [employer] instrument Performing Lab [place] [facility] Lab 04/09/2020 19:41 EDT [facility] Swab 04/09/2020 12:5 5 EDT 04/09/2020 15:36 EDT us Provider Outr Resulting Lab MICROBIOLOGY - GENER AL ORDERABLES Final Result [facility] [address] [place] [address] documented in this encounter Visit Diagnoses Not on filedocumented in this encounter Care Teams Shear Setter Relationship Specialty Start Date End Date Monica Mulligan MD [address] [place] [phone] PCP - General 11/29/16 documented as of this encounter
== END 2024-09-04 20:27 | disposition home or self-care (01) ==
PROVIDERS: Emergency Provider Emergency Medicine; PCP Nurse Practitioner Family
DX: F10.90 Alcohol use, unspecified, uncomplicated; Z59.811 Housing instability, housed, with risk of homelessness; H53.8 Other visual disturbances; Z59.19 Other inadequate housing
CPT/HCPCS: 80053; 80307; 99284; 70450; 80320; 81003; 83735; 84484; 85025; 99283

== ENCOUNTER 2024-09-15 08:39 | Emergency (ER) | payer MEDICAID, SELFPAY ==
[2024-09-15] VITALS (76 sets, daily range): BP systolic 61–179; BP diastolic 42–112; PULSE 53–120; RESP 4–22; TEMP 36.4; O2SAT 90–99
--- NOTE | 2024-09-15 08:30 | RT.EKG_ITS ---
APPROVED REPORT Exam: Resting ECG Reason for Exam: Chest Pain Patient Location: E HR:80 bpm ECG Measurements Heart Rate 80 AXIS OK 185 P 113 QRSd 86 QRS 138 QT 362 T 120 QTc 417 Conclusion Sinus rhythm...normal P axis, V-rate 60- 99 Probable lateral infarct, age indeterminate...Q >35mS, T neg, V5-V6 I aVL
--- NOTE | 2024-09-15 08:57 | W.ED.GENAD ---
Discharge Plan Disposition Patient Disposition: Home Condition: Stable Discharge Details Clinical Impression: Acute on chronic pancreatitis, Alcoholic pancreatitis Primary Care Provider: OWEN GARRISON ED Provider: Meagan Hernandez Home Meds and New Rx's Prescriptions: Continued melatonin 5 mg capsule 20 mg PO QHS acetaminophen 500 mg capsule 1,000 mg PO Q6H PRN PRN Discharge Instructions Instructions: Pancreatitis (DC), Chest Pain, Adult ED, Alcohol Use Disorder ED Additional Instructions: Please take the nausea medications as directed. Clear liquids to stay away from anything fried fatty spicy or dairy. It does show that your pancreas is mildly inflamed. Try to abstain from drinking alcohol. Please take Tylenol or Ibuprofen with food every 4-6 hours as needed for pain and swelling. Increase oral fluids. Follow up with primary care provider in 3-5 days. Return to ED sooner if any worsening or concerns. Referrals: [facility] [Outside] - 2 days (Call for help with Alcoholisim) OWEN GARRISON, COMPUTER TRAINING SPECIALIST [Primary Care Provider] - 3 days HPI General Mode of arrival: EMS. Date/Time Provider Initiated Documentation: 09/15/24 08:47. Limitations to Documentation: no limitations. Information obtained by: patient, EMS and RN notes reviewed. HPI Narrative: 49-year-old male with history of alcohol abuse presents to the ER with a chief complaint of chest pain for the last 6 hours. He reports he has been using drinking alcohol for the last 3 days. Denies any vomiting. Denies any fever or chills. Does have a past medical history of pancreatitis. He does endorse 2 beers this morning. Past medical history includes anxiety acid reflux anemia, folate deficiency alcohol abuse gallstones and DVTs. He does have a history of a right hip replacement. Related Data Home Medications ?Medication ?Instructions ?Recorded ?Confirmed acetaminophen 500 mg capsule 1,000 mg PO Q6H PRN PRN 05/18/24 09/15/24 melatonin 5 mg capsule 20 mg PO QHS 09/09/24 09/15/24 Allergies Allergy/AdvReac Type Severity Reaction Status Date / Time hydromorphone (From Dilaudid) AdvReac Intermediate Other (See Verified 09/09/24 13:57 Comment) General Stated Complaint: Chest Pain SARAH: 3 Review of Systems All systems reviewed & are unremarkable except as noted in HPI and below Cardiovascular Cardiovascular: Reports chest pain Gastrointestinal Gastrointestinal: Reports abdominal pain Exam Narrative Exam Narrative: Constitutional: Alert and oriented x3. Appears stated age. Normal body habitus. Head: Normocephalic, no trauma. Eyes: Pupils PERRL, Red reflex noted, EOM's intact. Eyelids symmetrical without lesions, discharge, or swelling. ENT: Bilateral TM's WNL, External ear normal to inspection, no mastoid TTP, swelling, or erythema, Nasal turbinates WNL, no nasal discharge. Normal dentition, Posterior pharynx WNL, no exudate. Chest: RRR, Normal S1, S2, distal pulses intact. Resp: Lungs clear to auscultation bilaterally, no wheezes, rales, or rhonchi. Abdomen: Soft, non-distended, Normoactive bowel sounds all 4 quads. Tenderness with palpation of left upper quadrant. Musculoskeletal: Normal gait, Moves all 4 extremities without difficulty. Skin: No suspicious rashes or lesions. Capillary refill less than 2 sec. Neurologic: Cranial nerves II-XII intact. Alert and oriented x 3. Motor: No deficits noted. Sensory: Intact bilaterally all 4 extremities. Hematologic/Lymphatic: No ecchymosis, no lymphadenopathy. Course Vital Signs Vital signs: Vital Signs Pulse 96 H 09/15/24 08:49 Respiratory Rate 18 09/15/24 08:49 Blood Pressure 137/98 H 09/15/24 08:49 Pulse Oximetry 97 09/15/24 08:49 Pulse 96 H 09/15/24 08:49 Respiratory Rate 18 09/15/24 08:49 Blood Pressure 137/98 H 09/15/24 08:49 Blood Pressure Position Sitting 09/15/24 08:49 Pulse Oximetry 97 09/15/24 08:49 Oxygen Delivery Method Room Air 09/15/24 08:49 Oxygen Flow Rate 0 09/15/24 08:49 Medical Decision Making 49-year-old male with history of alcohol abuse presents to the ER with a chief complaint of chest pain for the last 6 hours. He reports he has been using drinking alcohol for the last 3 days. Denies any vomiting. Denies any fever or chills. Does have a past medical history of pancreatitis. He does endorse 2 beers this morning. Past medical history includes anxiety acid reflux anemia, folate deficiency alcohol abuse gallstones and DVTs. He does have a history of a right hip replacement. Workup ordered including CBC CMP, lipase, urinalysis UDS serial troponins ethyl alcohol level. Will get chest x-ray. Will give some Pepcid and 500 cc normal saline. Informed staff air tactical officer that blood pressure dropped into the 60s systolic, patient is complaining of continued chest pain, blood pressure 74/46 after repeat measures, he reports that he is seeing Ty dye. He is mentating however EKG shows some changes. And a second IV was started and a liter of fluid is hanging at this time. Patient is laying flat. Repeat BP 91/62 Blood pressure is improved 127/81 differential diagnosis includes not limited to electrolyte disturbance, ACS, vasovagal, AAA. CBC shows no leukocytosis. Remainder of labs are pending at this time. Repeat EKG also ordered. Patient's blood pressure has improved to 140 systolic, CMP is reassuring potassium 3.8 sodium 139, blood alcohol was 310 magnesium slightly low at 1.6, AST 117 initial troponin within normal limits lipase is pending. CT shows groundglass and bases of lungs or possible infiltrate in the right lower lobe, findings consistent with pancreatitis. Will give Toradol, Zofran fluid swab CT and then. Patient's vital signs have stabilized heart rate is 81 blood pressure 141/94 O2 sat 94% on room air. Patient reevaluation he reports that he is still having some chest pain, the Toradol did take the edge off. Vital signs have remained stable. Awaiting third troponin, given additional Toradol, Zofran to go home with Patient is having an episode of emesis. This is the first episode of emesis he has had. Will give Zofran ODT p.o. Repeat troponin is stable. Will plan for discharge. Lorazepam 1 mg p.o. ordered but patient declined at this time. This text was generated using [employer] dictation system, please disregard any oddities of phrase or misspellings. Medical Records Medical records reviewed: Yes I reviewed the patient's medical records. Imaging Data Radiologic Study: Imaging: X-Ray Radiologist's impression: Imaging protocol: Radiologic exam of the chest. Views: 1 view. COMPARISON: CR XR CHEST 2V PA LATERAL 08/18/2024 7:41 AM FINDINGS: Lungs: Unremarkable. No consolidation. Pleural spaces: Unremarkable. No pleural effusion. No pneumothorax. Heart/Mediastinum: Unremarkable. No cardiomegaly. Bones/joints: Unremarkable. IMPRESSION: No acute findings. Thank you for allowing us to participate in the care of your patient. Dictated and Authenticated by: Christopher Miller MD Radiologic Study #2: Imaging: CT Scan Radiologist's impression: CT Chest, Abd, Pelvis W: FINDINGS: Lungs: Mild ground-glass opacities in the posterior aspect of the right upper lobe may represent minimal atelectasis or pneumonia. (series 5, image 22 -28).. Pleural spaces: Unremarkable. No pneumothorax. No pleural effusion. Heart: Unremarkable. No cardiomegaly. No pericardial effusion. Lymph nodes: Unremarkable. No enlarged lymph nodes. Vasculature: Unremarkable. No aortic aneurysm. Bones/joints: Healed left rib fractures Soft tissues: Unremarkable. IMPRESSION: Mild ground-glass opacities in the posterior aspect of the right upper lobe may represent minimal atelectasis or pneumonia. (series 5, image 22 -28). FINDINGS: Liver: Normal. No mass. Gallbladder and biliary ducts: The gallbladder is unremarkable Pancreas: Diffuse Inflammatory changes around the pancreas consistent with mild to moderate pancreatitis.. Calcification in the head of the pancreas may indicate chronic pancreatitis. Spleen: Normal. No splenomegaly. Adrenal glands: Normal. No mass. Kidneys and ureters: There is no evidence of renal or ureteral calcifications. 16 mm mass anterior left kidney 64 Hounsfield units.. Stomach and bowel: Findings consistent with constipation . Secondary inflammation of the stomach and duodenal from the pancreatitis Appendix: No evidence of appendicitis. Intraperitoneal space: Unremarkable. No free air. No significant fluid collection. Vasculature: Unremarkable. No abdominal aortic aneurysm. Lymph nodes: Unremarkable. No enlarged lymph nodes. Urinary bladder: Unremarkable as visualized. Reproductive: Unremarkable as visualized. Bones/joints: Right total hip replacement Soft tissues: Unremarkable. IMPRESSION: 1. Diffuse Inflammatory changes around the pancreas consistent with mild to moderate pancreatitis.. 2. Calcification in the head of the pancreas may indicate chronic pancreatitis. 3. 16 mm mass anterior left kidney 64 Hounsfield units.. Recommend MR without and with contrast or CT without and with contrast. MR is preferred for masses under 1.5 cm Lab Data Lab results reviewed: Yes I reviewed the patient's lab results. Labs: Laboratory Tests Range/Units 09/15/24 09/15/24 09/15/24 10:09 11:23 11:39 WBC (4.4-10.8) 10^3/uL 7.41 RBC (4.36-5.78) 10^6/uL 4.58 Hgb (13.5-17.5) g/dL 15.3 Hct (40.0-50.0) % 42.6 MCV (80-95) fL 93 MCH (27.0-33.0) pg 33.4 H MCHC (32.0-36.0) % 35.9 RDW (11.8-14.1) % 12.3 Plt Count (130-400) 10^3/uL 136 MPV (8.0-11.0) fL 9.4 Immature Gran % % 0.3 Neutrophils % % 68.2 Lymphocytes % % 21.6 Monocytes % % 7.7 Eosinophils % % 1.1 Basophils % % 1.1 Nucleated RBC % (0.0-0.3) % 0.0 Absolute Neutrophils (1.2-6.7) 10^3/uL 5.06 Absolute Lymphocytes (1.2-3.4) 10^3/uL 1.60 Absolute Monocytes (0.1-0.8) 10^3/uL 0.57 Absolute Eosinophils (0.0-0.7) 10^3/uL 0.08 Absolute Basophils (0.0-0.2) 10^3/uL 0.08 PT (9.1-11.1) sec 11.7 H INR (0.9-1.1) 1.2 H APTT (20.6-30.2) sec 26.8 D-Dimer (<500) ng/mlFEU 607 H Sodium (136-145) mmol/L 139 Potassium (3.5-5.1) mmol/L 3.8 Chloride (98-107) mmol/L 102 Carbon Dioxide (21.0-32.0) mmol/L 25.7 Anion Gap (3-11) mmol/L 11.3 H BUN (7-18) mg/dL 13 Creatinine (0.70-1.30) mg/dL 0.9 Est GFR (CKD-EPI 2020) (mL/min/1.73m2) 105.35 Glucose (74-106) mg/dL 137 H Calcium (8.5-10.1) mg/dL 8.7 Magnesium (1.8-2.4) mg/dL 1.6 L Total Bilirubin (0.2-1.0) mg/dL 0.34 AST (15-37) U/L 117 H ALT (16-63) U/L 57 Alkaline Phosphatase (46-116) U/L 71 Troponin I (<or=76) ng/L 6 7 Total Protein (6.4-8.2) g/dL 7.6 Albumin (3.4-5.0) g/dL 3.5 Lipase (<78) U/L 670 H Procalcitonin ng/mL < 0.10 Ethyl Alcohol (<10) mg/dL 310.9 H COVID-19 Source SARS-CoV-2 (PCR) (Negative) Influenza Type A (PCR) (Negative) Influenza Type B (PCR) (Negative) RSV (PCR) (Negative) Add-On Test Request DONE Range/Units 09/15/24 09/15/24 11:44 13:07 WBC (4.4-10.8) 10^3/uL RBC (4.36-5.78) 10^6/uL Hgb (13.5-17.5) g/dL Hct (40.0-50.0) % MCV (80-95) fL MCH (27.0-33.0) pg MCHC (32.0-36.0) % RDW (11.8-14.1) % Plt Count (130-400) 10^3/uL MPV (8.0-11.0) fL Immature Gran % % Neutrophils % % Lymphocytes % % Monocytes % % Eosinophils % % Basophils % % Nucleated RBC % (0.0-0.3) % Absolute Neutrophils (1.2-6.7) 10^3/uL Absolute Lymphocytes (1.2-3.4) 10^3/uL Absolute Monocytes (0.1-0.8) 10^3/uL Absolute Eosinophils (0.0-0.7) 10^3/uL Absolute Basophils (0.0-0.2) 10^3/uL PT (9.1-11.1) sec INR (0.9-1.1) APTT (20.6-30.2) sec D-Dimer (<500) ng/mlFEU Sodium (136-145) mmol/L Potassium (3.5-5.1) mmol/L Chloride (98-107) mmol/L Carbon Dioxide (21.0-32.0) mmol/L Anion Gap (3-11) mmol/L BUN (7-18) mg/dL Creatinine (0.70-1.30) mg/dL Est GFR (CKD-EPI 2020) (mL/min/1.73m2) Glucose (74-106) mg/dL Calcium (8.5-10.1) mg/dL Magnesium (1.8-2.4) mg/dL Total Bilirubin (0.2-1.0) mg/dL AST (15-37) U/L ALT (16-63) U/L Alkaline Phosphatase (46-116) U/L Troponin I (<or=76) ng/L 8 Total Protein (6.4-8.2) g/dL Albumin (3.4-5.0) g/dL Lipase (<78) U/L Procalcitonin ng/mL Ethyl Alcohol (<10) mg/dL COVID-19 Source Nasopharynx SARS-CoV-2 (PCR) (Negative) Negative Influenza Type A (PCR) (Negative) Negative Influenza Type B (PCR) (Negative) Negative RSV (PCR) (Negative) Negative Add-On Test Request Quality:SDOH Health Related Social Needs: Health related social needs housing instability, housed, with risk of homelessness (Z59.811) Health related social needs details Has mold in his apartment, would be interested in bankruptcy legal assistant resources for tenant rights [facility] All Active Problems (Updated 09/15/24 @ 13:27 by Meagan Hernandez NP) Acute on chronic pancreatitis (Acute) Gallbladder polyp (Acute) Diarrhea (Acute) Postprandial RUQ pain (Acute) Gallbladder disease (Acute) Alcohol use disorder (Acute) Pancreatitis (Chronic) Dizziness (Acute) Fever (Acute) Nicotine addiction (Acute) Gastroenteritis (Acute) Gastritis (Acute) Alcoholic pancreatitis (Acute) Trochanteric bursitis, right hip (Acute) Avascular necrosis of bone of left hip (Acute) Chest pain (Acute) due to ETOH Hepatic steatosis (Acute) COVID-19 ruled out (Acute) Tobacco abuse (Acute) Impairment of balance (Acute) Chronic vertigo (Acute) Electrolyte and fluid disorder (Acute) Medical History Anxiety Acid reflux 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 Osteonecrosis bone of left hip 04/23/24 CT evidence of a vascular necrosis of left hip Alcohol abuse Gallstone (~08/2024) On deep vein thrombosis (DVT) prophylaxis Surgical History 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) Cyst of right upper eyelid Family History Maternal Grandfather Alcohol abuse Maternal Uncle Alcohol abuse Social History Smoking/Tobacco Use Status: Current every day Tobacco Type: cigarettes Years smoked: 25 Smoking risk assessment performed?: Yes Alcohol Intake: current Alcohol Intake frequency: 0-2 drinks per day Alcohol type: beer and hard liquor Details: last drink was 2 weeks ago Drug use: Never Substance use type: does not use Housing: homeless 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
--- NOTE | 2024-09-15 09:15 | DI.RAD_ITS ---
Exam(s) XR PORTABLE CHEST AP EXAM: XR PORTABLE CHEST AP CLINICAL HISTORY: Chest pain. TECHNIQUE: 2D digital imaging was performed. COMPARISON: CR,XR XR CHEST 2V PA LATERAL from 08/18/2024 FINDINGS: Single AP portable view. Heart size is upper normal. The mediastinum is not widened. Lungs are clear. No infiltrates nor obvious pleural effusions. IMPRESSION: No acute pulmonary findings on this single AP portable view of the chest. DATA REPOSITORY: RADIATION DOSE DELIVERED:
--- NOTE | 2024-09-15 09:49 | DI.VRAD_ITS ---
PROCEDURE INFORMATION: Exam: XR Chest Exam date and time: 09/15/2024 9:35 AM Age: 49 years old Clinical indication: Other: Chest pain TECHNIQUE: Imaging protocol: Radiologic exam of the chest. Views: 1 view. COMPARISON: CR XR CHEST 2V PA LATERAL 08/18/2024 7:41 AM FINDINGS: Lungs: Unremarkable. No consolidation. Pleural spaces: Unremarkable. No pleural effusion. No pneumothorax. Heart/Mediastinum: Unremarkable. No cardiomegaly. Bones/joints: Unremarkable. IMPRESSION: No acute findings. Dictated and Authenticated by: Christopher Miller MD. Ordering:SHA Rhodes MD
--- NOTE | 2024-09-15 10:00 | RT.EKG_ITS ---
APPROVED REPORT Exam: Resting ECG Reason for Exam: Chest Pain Patient Location: E HR:67 bpm ECG Measurements Heart Rate 67 AXIS RI 195 P 56 QRSd 89 QRS 53 QT 406 T 61 QTc 429 Conclusion Sinus rhythm...normal P axis, V-rate 60- 99 ST elev, probable normal early repol pattern...ST elevation, age<55
--- NOTE | 2024-09-15 10:15 | RT.EKG_ITS ---
APPROVED REPORT Exam: Resting ECG Reason for Exam: Repeat, Patient Location: E HR:57 bpm ECG Measurements Heart Rate 57 AXIS HI 202 P 29 QRSd 88 QRS 34 QT 411 T 51 QTc 399 Conclusion Sinus bradycardia...rate< 60 Borderline prolonged HI interval...HI >202, V-rate 50- 90 ST elev, probable normal early repol pattern...ST elevation, age<55
--- NOTE | 2024-09-15 10:15 | DI.CT_ITS ---
Exam(s) CT CHEST/ABD/PEL W EXAM: CT CHEST/ABD/PEL W CLINICAL HISTORY: Chest pain, Alcohol use, hx pancreatitis. TECHNIQUE: Imaging Protocol: Axial computed tomography images with coronal and sagittal reformatted images were created and reviewed CONTRAST MATERIAL: Intravenous: Omnipaque 350 Contrast volume:100 ml Oral: None COMPARISON: CT CT ABDOMEN PELVIS W from 04/18/2024 MR MR ABDOMEN WO from 08/20/2024 FINDINGS: CHEST: LUNGS: There is some ground-glass infiltrate in the posterior segment of the right upper lobe. No ot her significant focal lung findings and there are no pleural effusions. A few bullae are noted in th e right lung apex region. There are no significant focal findings in the trachea and mainstem bronch i. There is no bronchiectasis.. MEDIASTINUM: There is no hilar nor mediastinal adenopathy. Visualized thyroid unremarkable. CARDIAC: Heart size is normal. There is no pericardial effusion.Caliber of the thoracic aorta is wit hin normal limits. No evidence of aortic dissection. OSSEOUS: No significant osseous lesions.No fractures. There is calcification within the T7-T8 disc s pace.. ABDOMEN: There is no generalized ascites. LIVER: Liver is diffusely hypodense implying steatosis. There are no discrete focal hepatic lesions identified. GALLBLADDER/BILIARY: No obvious gallbladder pathology. CBD is not dilated. PANCREAS: There is abnormal peripancreatic streaking consistent with acute pancreatitis. There is al so a calcification at the junction of the head and uncinate process of the pancreas as well as anothe r smaller calcification in the pancreatic head-neck region. Pancreatic duct is not dilated. SPLEEN: Spleen is not enlarged. There are no intrasplenic lesions. Splenic and portal veins are gibson nt. ADRENALS: There are no significant adrenal masses. KIDNEYS: Right kidney unremarkable. There is a exophytic 1.3 cm nodule off the anterior aspect of th e superior pole of the left kidney, this measuring 1.3 x 1.3 cm. This is denser than typical cyst wi th density measurements averaging 62 HU.. Some peripheral mural enhancement or calcification noted. ABDOMINAL AORTA: Abdominal aorta is not enlarged. LYMPH NODES: There is no retroperitoneal nor paraaortic adenopathy. ABDOMINAL WALL: No evidence of significant anterior abdominal wall nor inguinal hernia. GI: There is no evidence of bowel obstruction. PELVIS: LYMPH NODES: There is no intrapelvic nor inguinal adenopathy. GI: No evidence of appendicitis.No evidence of sigmoid diverticulitis. URINARY BLADDER: Partially obscured by beam hardening artifact from right hip prosthesis. There is m ild uniform thickening of the urinary bladder wall noted. REPRODUCTIVE: Prostate size normal. OSSEOUS: Right hip prosthesis. Evidence of avascular necrosis in the left femoral head without head flattening. IMPRESSION: 1. There is peripancreatic streaking consistent acute pancreatitis. There are few pancreatic calcifi cations indicating also element of chronic pancreatitis. The pancreas is not atrophic and the pancre atic duct is not dilated. There are no pancreatic masses evident. 2. Hepatic steatosis noted 3. There is a 1.3 x 1.3 cm finding off the anterior aspect of the superior pole the left kidney. Alt krysten this has appearance of a cyst, the internal Hounsfield unit measurements are higher than typica l cyst, measuring 62 HU. Recommend further imaging, starting with ultrasound. 4. There is a right hip prosthesis. There is evidence of avascular necrosis of the opposite-left hip . RADIATION DOSE DELIVERED: 284.66mGy.cm Total DLP DATA REPOSITORY: All CT scans at this facility are submitted to the National Radiology Data Registry (NRDR) Dose Index Registry (DIR) with the [employer] (ACR). RADIATION OPTIMIZATION: All CT scans at this facility use at least one of these dose optimization te chniques: automated exposure control; mA and/or kV adjustment per patient size (includes targeted exa ms where dose is matched to clinical indication); or iterative reconstruction.
[2024-09-15 10:24] LABS: Abs Immature Grans 0.02 10^3/uL (0.0-0.06); Absolute Basophil Count 0.08 10^3/uL (0.0-0.2); Absolute Eosinophil Count 0.08 10^3/uL (0.0-0.7); Absolute Monocyte Count 0.57 10^3/uL (0.1-0.8); Absolute Neutrophil Count 5.06 10^3/uL (1.2-6.7); Basophils % 1.1 %; Eosinophils % 1.1 %; HCT 42.6 % (40.0-50.0); HGB 15.3 g/dL (13.5-17.5); Immature Grans % 0.3 %; Lymphocytes % 21.6 %; MCH 33.4 pg (27.0-33.0); MCHC 35.9 % (32.0-36.0); MCV 93 fL (80-95); MPV 9.4 fL (8.0-11.0); Monocytes % 7.7 %; Neutrophils % 68.2 %; Platelet Count 136 10^3/uL (130-400); RBC 4.58 10^6/uL (4.36-5.78); RDW 12.3 % (11.8-14.1); RDW-SD 41.8 fL; WBC 7.41 10^3/uL (4.4-10.8)
[2024-09-15] MEDS: Normal Saline 500 ML IV (10:35)
[2024-09-15 10:36] LABS: INR 1.2 (0.9-1.1); PTT Activated 26.8 sec (20.6-30.2); Prothrombin Time 11.7 sec (9.1-11.1)
[2024-09-15 10:39] LABS: ALT 57 U/L (16-63); AST 117 U/L (15-37); Albumin 3.5 g/dL (3.4-5.0); Alkaline Phosphatase 71 U/L (46-116); Anion Gap 11.3 mmol/L (3-11); BUN 13 mg/dL (7-18); Bilirubin, Total 0.34 mg/dL (0.2-1.0); CO2 25.7 mmol/L (21.0-32.0); CREATININE 0.9 mg/dL (0.70-1.30); Calcium 8.7 mg/dL (8.5-10.1); Chloride 102 mmol/L (98-107); Estimated GFR 105.35 (mL/min/1.73m2); Glucose 137 mg/dL (74-106); Magnesium 1.6 mg/dL (1.8-2.4); Potassium 3.8 mmol/L (3.5-5.1); Sodium 139 mmol/L (136-145); Total Protein 7.6 g/dL (6.4-8.2); Troponin I 6 ng/L (<or=76)
[2024-09-15 10:43] LABS: ETHANOL BLOOD 310.9 mg/dL (<10)
[2024-09-15 10:46] LABS: D-Dimer 607 ng/mlFEU (<500)
[2024-09-15] MEDS: Normal Saline - Diluent 50 ML VIAL IJ (10:47)
[2024-09-15] MEDS: Omnipaque 350 MG/ML 100 ML BTL IJ (10:48)
[2024-09-15 11:00] LABS: Lipase 670 U/L (<78)
--- NOTE | 2024-09-15 11:29 | DI.VRAD_ITS ---
PROCEDURE INFORMATION: Exam: CT Chest With Contrast; Diagnostic Exam date and time: 09/15/2024 10:52 AM Age: 49 years old Clinical indication: Other: Chest pain, alcohol use, HX pancreatitis; Prior surgery; Surgery date: 6+ months; Surgery type: Total hip TECHNIQUE: Imaging protocol: Diagnostic computed tomography of the chest with contrast. 3D rendering (Not supervised by radiologist): MIP and/or 3D reconstructed images were created by the technologist. Contrast material: OMNIPAQUE 350; Contrast volume: 100 ml; Contrast route: INTRAVENOUS (IV); COMPARISON: CR XR PORTABLE CHEST AP 09/15/2024 9:35 AM FINDINGS: Lungs: Mild ground-glass opacities in the posterior aspect of the right upper lobe may represent minimal atelectasis or pneumonia. (series 5, image 22 -28).. Pleural spaces: Unremarkable. No pneumothorax. No pleural effusion. Heart: Unremarkable. No cardiomegaly. No pericardial effusion. Lymph nodes: Unremarkable. No enlarged lymph nodes. Vasculature: Unremarkable. No aortic aneurysm. Bones/joints: Healed left rib fractures Soft tissues: Unremarkable. IMPRESSION: Mild ground-glass opacities in the posterior aspect of the right upper lobe may represent minimal atelectasis or pneumonia. (series 5, image 22 -28).. PROCEDURE INFORMATION: Exam: CT Abdomen And Pelvis With Contrast Exam date and time: 09/15/2024 10:52 AM Age: 49 years old Clinical indication: Other: Chest pain, alcohol use, HX pancreatitis; Prior surgery; Surgery date: 6+ months; Surgery type: Total hip TECHNIQUE: Imaging protocol: Computed tomography of the abdomen and pelvis with contrast. 3D rendering (Not supervised by radiologist): MIP and/or 3D reconstructed images were created by the technologist. Contrast material: OMNIPAQUE 350; Contrast volume: 100 ml; Contrast route: INTRAVENOUS (IV); COMPARISON: MR ABDOMEN WO 08/20/2024 1:06 PM FINDINGS: Liver: Normal. No mass. Gallbladder and biliary ducts: The gallbladder is unremarkable Pancreas: Diffuse Inflammatory changes around the pancreas consistent with mild to moderate pancreatitis.. Calcification in the head of the pancreas may indicate chronic pancreatitis. Spleen: Normal. No splenomegaly. Adrenal glands: Normal. No mass. Kidneys and ureters: There is no evidence of renal or ureteral calcifications. 16 mm mass anterior left kidney 64 Hounsfield units.. Stomach and bowel: Findings consistent with constipation . Secondary inflammation of the stomach and duodenal from the pancreatitis Appendix: No evidence of appendicitis. Intraperitoneal space: Unremarkable. No free air. No significant fluid collection. Vasculature: Unremarkable. No abdominal aortic aneurysm. Lymph nodes: Unremarkable. No enlarged lymph nodes. Urinary bladder: Unremarkable as visualized. Reproductive: Unremarkable as visualized. Bones/joints: Right total hip replacement Soft tissues: Unremarkable. IMPRESSION: 1. Diffuse Inflammatory changes around the pancreas consistent with mild to moderate pancreatitis.. 2. Calcification in the head of the pancreas may indicate chronic pancreatitis. 3. 16 mm mass anterior left kidney 64 Hounsfield units.. Recommend MR without and with contrast or CT without and with contrast. MR is preferred for masses under 1.5 cm. Dictated and Authenticated by: Christopher Miller MD. Ordering:SHA Rhodes MD
[2024-09-15] MEDS: Ondansetron 4 MG/2 ML VIAL IVP (11:41)
[2024-09-15] MEDS: Ketorolac 15 MG/ML VIAL IVP ×2 (11:42→13:49)
[2024-09-15 11:49] LABS: Lab Add On Test DONE
[2024-09-15 11:50] LABS: Troponin I 7 ng/L (<or=76)
[2024-09-15 12:11] LABS: Procalcitonin < 0.10 ng/mL
[2024-09-15 12:41] LABS: COVID-19 PCR Negative (Negative); Influenza A PCR Negative (Negative); Influenza B PCR Negative (Negative); RSV PCR Negative (Negative)
[2024-09-15 12:43] LABS: Source Nasopharynx
[2024-09-15 13:33] LABS: Troponin I 8 ng/L (<or=76)
[2024-09-15] MEDS: Magnesium Oxide 400 MG TAB PO (13:49)
[2024-09-15] MEDS: Ondansetron O.D.T. 4 MG TABEF PO (13:49)
[2024-09-15] MEDS: Ketorolac 10 MG TAB PO (13:49)
[2024-09-15] MEDS: Ondansetron O.D.T. 4 MG TABEF, 3 TABS/BTL PO (13:50)
--- NOTE | 2024-09-16 07:30 | NUR.NOTE ---
Addendum entered by Tita Tracy 09/16/24 07:43: Will have PACS separate the 2 EKG's so that the second one can be read. Original Note: Access chart to reconcile EKG orders with EKG's in [facility]. Third order to be kept. Nursing Note:
== END 2024-09-15 15:16 | disposition home or self-care (01) ==
PROVIDERS: Emergency Provider Registered Nurse Emergency; PCP Nurse Practitioner Family
DX: K85.20 Alcohol induced acute pancreatitis without necrosis or infection (principal); F10.120 Alcohol abuse with intoxication, uncomplicated; Y90.8 Blood alcohol level of 240 mg/100 ml or more
CPT/HCPCS: 36415; 74177; 80053; 83690; 84145; 87637; 93005; 96361; 96374; 96375; 96376; 99285; 71045; 71260; 80320; 83735; 84484; 85025; 85379; 85610; 85730; 93010; J1885; J2405; J3490

== ENCOUNTER 2024-10-09 01:53 | Outpatient (CLI) | payer MEDICAID, SELFPAY ==
--- NOTE | 2024-10-09 06:45 | DI.NM_ITS ---
Exam(s) NM HEPATOBILIARY CCK GRP EXAM: MS HEPATOBILIARY CCK GRP CLINICAL HISTORY: gallbladder disease,postprandial RUQ Pain,r10.11,k82.9. TECHNIQUE: Injected dose: 5 mCi Tc-99 mebrofenin Initial dynamic images: 60 minutes Post-Gallbladder fillin mcg CCK according to protocol. Addition images: 20 minute dynamic during CCK administration. COMPARISON: No exams were available for comparison FINDINGS: Normal hepatic transit time. Prompt excretion into the small bowel. Prompt excretion into the gallbladder. The gallbladder ejection fraction is 26 percent. This is bel ow normal. ([facility] ejection fraction is greater than 40 percent). The patient was asymptomatic with t he CCK infusion. IMPRESSION: 1. Abnormal gallbladder ejection fraction. This can be seen with gallbladder dyskinesia. SN guidelines: Gallbladder visualization should be present by 3 hours. Delayed adcbvim-pb-jcufv santos sit beyond 60 min raises the suspicion for partial common bile duct (CBD) obstruction. Gallbladder ejection fraction <35% has a good correlation with acalculous disease (i.e., chronic acal culous cholecystitis, cystic duct syndrome, sphincter of Oddi disease).
[2024-10-09] MEDS: Sincalide 5 MCG VIAL 1 MCG IJ (11:39)
== END 2024-10-09 02:13 ==
LOC: DI 01:53
PROVIDERS: PCP Nurse Practitioner Family; Visit Provider Surgery
DX: K82.8 Other specified diseases of gallbladder
CPT/HCPCS: 78227; J2805

== ENCOUNTER 2024-11-02 21:19 | Emergency (ER) | payer MEDICAID, SELFPAY ==
[2024-11-02 21:19] VITALS: BP 131/78; PULSE 78; RESP 18; TEMP 36.8; O2SAT 98
[2024-11-02] MEDS: Nicotine 21 MG/24 HR PATCH (21:30)
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
[2024-11-02 23:55] VITALS: BP 90/51; PULSE 74; RESP 15; O2SAT 98
[2024-11-03 02:16] VITALS: O2SAT 98
[2024-11-03 02:17] VITALS: BP 91/68; PULSE 93; RESP 16; O2SAT 94
[2024-11-03 05:08] VITALS: PULSE 95; O2SAT 99
[2024-11-03 05:09] VITALS: BP 115/76; PULSE 95; RESP 18; O2SAT 99
--- NOTE | 2024-11-03 05:09 | ED.PROG_ITS ---
Date of service: 11/03/24 Time of Service: 05:09 Medical Decision Making Patient was signed out to me pending reassessment and clinical sobriety. Patient has been here entire night and now morning. He is awoken feels much better. The patient is able to speak clearly. There is no demonstration of any slurring of speech. There is evidence of clear decision making capacity. Patient is able to ambulate well without any difficulty. There are no signs of ataxia or stumbling motions. Patient stable for discharge. Secondary assessment shows no signs of significant trauma. Discussed red flags for which to return. I have extensively reviewed the treatment plan and discharge instructions with the patient. I have addressed all patient concerns at this time. The patient was made aware of what symptoms to monitor for that would warrant a return to the emergency department. Discussed the plan with the patient, they demonstrate verbal understanding and agreement with our assessment and plan at this time. The documentation in this chart was dictated using [employer] dictation software. Please excuse any dictation errors. Quality:SDOH Health Related Social Needs: Health related social needs housing instability, house d, with risk of homelessness (Z59.811) Health related social needs details Has mold in his ap artment, would be interested in legal arbitrator resources for tenant rights Discharge Plan Disposition Patient Disposition: Home Condition: Stable Discharge Details Clinical Impression: Alcohol intoxication Primary Care Provider: OWEN GARRISON ED Provider: Alejandro Thomas Home Meds and New Rx's Prescriptions: Continued melatonin 5 mg capsule 20 mg PO QHS Discharge Instructions Instructions: Alcohol Use Disorder (DC) Additional Instructions: Recommend following up with [facility] to assist you if you choose to stop drinking alcohol Please contact nursing home to see if they are willing to accept you back as a client Please return should you have new or worsening complaints
--- NOTE | 2024-11-03 08:46 | NUR.NOTE ---
pt arrives requesting a copy of his discharge paperwork. states he was seen during the night and discharged to the long-term. brought in by long-term staff. now needs to report to [facility] jimi. printed a copy of d/c and given to the patient per ok of Dr. Mckeon. Nursing Note:
== END 2024-11-03 05:12 | disposition home or self-care (01) ==
PROVIDERS: Emergency Provider Student in an Organized Health Care Education/Training Program; PCP Nurse Practitioner Family
DX: F10.120 Alcohol abuse with intoxication, uncomplicated (principal); F17.210 Nicotine dependence, cigarettes, uncomplicated; Z59.00 Homelessness unspecified
CPT/HCPCS: 00123; 99283

== ENCOUNTER 2024-12-04 12:10 | Emergency (ER) | payer MEDICAID, SELFPAY ==
[2024-12-04 12:14] VITALS: BP 115/71; PULSE 83; RESP 16; TEMP 36.6; O2SAT 97
--- NOTE | 2024-12-04 13:12 | NUR.NOTE ---
Requested from [facility] the provider note and the radiology reports from MondayDecember 02. Will send to Medical Records for scanning into patient chart. Nursing Note:
== END 2024-12-04 13:17 | disposition left against medical advice (07) ==
LOC: ER 12:26
PROVIDERS: PCP Nurse Practitioner Family
DX: Z53.29 Procedure and treatment not carried out because of patient's decision for other reasons (principal)

== ENCOUNTER 2025-01-27 13:00 | Outpatient (REF) | payer MEDICAID, SELFPAY ==
[2025-01-27 15:24] LABS: Abs Immature Grans 0.04 10^3/uL (0.0-0.06); Absolute Basophil Count 0.05 10^3/uL (0.0-0.2); Absolute Eosinophil Count 0.12 10^3/uL (0.0-0.7); Absolute Lymphocyte Count 1.54 10^3/uL (1.2-3.4); Absolute Monocyte Count 0.82 10^3/uL (0.1-0.8); Absolute Neutrophil Count 3.98 10^3/uL (1.2-6.7); Basophils % 0.8 %; Eosinophils % 1.8 %; HCT 39.8 % (40.0-50.0); Immature Grans % 0.6 %; Lymphocytes % 23.5 %; MCH 33.5 pg (27.0-33.0); MCHC 35.2 % (32.0-36.0); MCV 95 fL (80-95); MPV 10.3 fL (8.0-11.0); Monocytes % 12.5 %; Neutrophils % 60.8 %; Platelet Count 172 10^3/uL (130-400); RBC 4.18 10^6/uL (4.36-5.78); RDW 12.3 % (11.8-14.1); RDW-SD 43.4 fL; WBC 6.55 10^3/uL (4.4-10.8)
[2025-01-27 16:10] LABS: ALT 40 U/L (16-63); AST 33 U/L (15-37); Albumin 4.1 g/dL (3.4-5.0); Alkaline Phosphatase 77 U/L (46-116); Anion Gap 13.7 mmol/L (3-11); BUN 5 mg/dL (7-18); Bilirubin, Total 0.6 mg/dL (0.2-1.0); CO2 25.3 mmol/L (21.0-32.0); CREATININE 0.6 mg/dL (0.70-1.30); Calcium 9.7 mg/dL (8.5-10.1); Chloride 98 mmol/L (98-107); Estimated GFR 119.07 (mL/min/1.73m2); Ferritin 104 ng/mL (26-388); Folate 5.9 ng/mL (8.6-20.0); Glucose 95 mg/dL (74-106); Magnesium 1.3 mg/dL (1.8-2.4); Potassium 3.3 mmol/L (3.5-5.1); Sodium 137 mmol/L (136-145); TSH (W/Ref FT4) 1.11 uIU/mL (0.36-3.74); Total Protein 7.8 g/dL (6.4-8.2); Vitamin B12 481 pg/mL (193-986)
[2025-01-27 16:31] LABS: Iron 232 ug/dL (65-175); Total Iron Binding Capacity 349 ug/dL (250-450); Transferrin Sat 66 % (20-55)
== END 2025-01-27 13:01 | disposition home or self-care (01) ==
LOC: NCHCN 13:00
PROVIDERS: PCP Nurse Practitioner Family; Visit Provider Nurse Practitioner Family
DX: R42 Dizziness and giddiness (principal); F10.20 Alcohol dependence, uncomplicated
CPT/HCPCS: 80053; 82607; 82728; 82746; 83540; 83550; 83735; 84443; 85025

== ENCOUNTER 2025-01-29 05:49 | Emergency (ER) | payer MEDICAID, SELFPAY ==
--- NOTE | 2025-01-29 05:45 | RT.EKG_ITS ---
APPROVED REPORT Exam: Resting ECG Reason for Exam: dizzy Patient Location: E HR:81 bpm ECG Measurements Heart Rate 81 AXIS SC 163 P -26 QRSd 86 QRS 45 QT 370 T 48 QTc 431 Conclusion Sinus rhythm...normal P axis, V-rate 60- 99 Normal Electrocardiogram There are no significant changes compared to prior EKG performed on 09/15/2024 at 10:42.
[2025-01-29 05:52] VITALS: BP 151/86; PULSE 105; RESP 20; TEMP 36.4; O2SAT 96
[2025-01-29 06:02] VITALS: RESP 18
--- NOTE | 2025-01-29 06:15 | DI.CT_ITS ---
Exam(s) CT HEAD WO EXAM: CT HEAD WO CLINICAL HISTORY: vertigo/trouble walking. TECHNIQUE: Imaging Protocol: Axial computed tomography images with coronal and sagittal reformatted images were created and reviewed COMPARISON: CT CT HEAD WO from 09/04/2024 FINDINGS: Ventricles and Extra axial spaces: Normal in size and morphology for the patient's age. Hemorrhage: None. Cerebral parenchyma: No evidence of an acute territorial infarct. No mass effect. Midline shift: None. Brainstem/Cerebellum: Normal. Calvarium: Normal. Visualized Paranasal sinuses/Mastoids: There is an air-fluid level in the right maxillary sinus. The re is mucosal thickening in the maxillary sinuses and ethmoid air cells bilaterally. Soft Tissues: Unremarkable. IMPRESSION: 1. No acute intracranial process. 2. Interval development of a air-fluid level in the right maxillary sinus. This may represent an acu te sinusitis. Please correlate clinically. 3. The preliminary [facility] report was reviewed. RADIATION DOSE DELIVERED: 898.23mGy.cm Total DLP DATA REPOSITORY: All CT scans at this facility are submitted to the National Radiology Data Registry (NRDR) Dose Index Registry (DIR) with the [employer] (ACR). RADIATION OPTIMIZATION: All CT scans at this facility use at least one of these dose optimization te chniques: automated exposure control; mA and/or kV adjustment per patient size (includes targeted exa ms where dose is matched to clinical indication); or iterative reconstruction.
--- NOTE | 2025-01-29 06:20 | NUR.NOTE ---
Dr. Scott asked me to hold off doing EKG as he walked into the room to meet with patient which was why there was a delay in EKG being done.
--- NOTE | 2025-01-29 06:21 | W.ED.GENAD ---
Discharge Plan Disposition Patient Disposition: Home Condition: Improving Discharge Details Clinical Impression: Vertigo, Hypomagnesemia Primary Care Provider: OWEN GARRISON ED Provider: Florencio Scott Meds and New Rx's Prescriptions: New meclizine 25 mg tablet 25 mg PO TID PRN (Reason: dizziness) Qty: 30 0RF magnesium oxide 500 mg capsule 500 mg PO BID Qty: 30 0RF Discharge Instructions Instructions: Low Magnesium Level, Dizziness, Adult ED Additional Instructions: You are seen for your continued dizziness. Your laboratory studies performed by your PCP overall were reassuring though your magnesium is quite low. You did respond to the meclizine in regards to your dizziness. A prescription for meclizine will be provided. I will also start you on a magnesium supplement. You need to reach back out to primary care for further evaluation and management. Return to ED if you develop any new neurologic symptoms, syncope, other concerns. Referrals: OWEN GARRISON, PIPELINE ENGINEER [Primary Care Provider] - HPI General Mode of arrival: ambulatory. Date/Time Provider Initiated Documentation: 01/29/25 05:56. Limitations to Documentation: no limitations. Information obtained by: patient, RN notes reviewed and old records reviewed. HPI Narrative: Patient presents to ED with complaint of dizziness. This is not a new problem for the patient. However, this morning he is having associated nausea and vomiting. Patient has had problem with dizziness and vertigo for some time. He actually saw primary care on the and had lab work obtained. He has been to physical therapy and reports having Bryant maneuver which seemed to help for some time. More recently he reports that the physical therapist states he has negative [place] and maneuvers have not been helping. Patient states that the episodes occur randomly. He can be at work and become very dizzy and has to hold onto things so that he does not fall. He does not really describe a spinning sensation. He states that this feels more like he might pass out but he never does. Lying in bed flat on his back typically will cause symptoms. If he rolls over onto his abdomen it resolves. He is currently not having significant dizziness now. He had a friend drive him to the ED. He denies having problems with headaches. He denies any visual change. He denies any type of neurologic changes. He does have alcohol use disorder but reports that he is no longer drinking hard liquor and is now down to only 4 beers a night. His intention is to completely stop. He has been in alcohol withdrawal before. He states this is nothing associated with alcohol withdrawal. Related Data Home Medications ?Medication ?Instructions ?Recorded ?Confirmed magnesium oxide 500 mg capsule 500 mg PO BID #30 caps 01/29/25 meclizine 25 mg tablet 25 mg PO TID PRN dizziness #30 tabs 01/29/25 Previous Rx's ?Medication ?Instructions ?Recorded magnesium oxide 500 mg capsule 500 mg PO BID #30 caps 01/29/25 meclizine 25 mg tablet 25 mg PO TID PRN dizziness #30 tabs 01/29/25 Allergies Allergy/AdvReac Type Severity Reaction Status Date / Time hydromorphone (From Dilaudid) AdvReac Intermediate Other (See Verified 01/29/25 05:55 Comment) General Stated Complaint: Dizzy/Sync SARAH: 3 Exam Narrative Exam Narrative: Gen: WDWN male in NAD. Vitals per triage. HENT: NC/AT. Normal face. Eyes: PERRL and EOMI. VF in tact to confrontation. Neck: Supple, trachea midline. Chest: Normal respirations CV: RRR w/o murmur. Good radial pulses. Neuro: A+Ox3. Normal speech, mentation. CN II-XII in tact. Normal strength. Normal sensation. FTN normal. Course Vital Signs Vital signs: Vital Signs Temperature 97.6 F 01/29/25 05:52 Pulse 105 H 01/29/25 05:52 Respiratory Rate 20 01/29/25 05:52 Blood Pressure 151/86 H 01/29/25 05:52 Pulse Oximetry 96 01/29/25 05:52 Temperature 97.6 F 01/29/25 05:52 Pulse 105 H 01/29/25 05:52 Respiratory Rate 18 01/29/25 06:02 Respiratory Effort Non-Labored 01/29/25 06:02 Respiratory Depth Normal 01/29/25 06:02 Respiratory Pattern Normal 01/29/25 06:02 Blood Pressure 151/86 H 01/29/25 05:52 Pulse Oximetry 96 01/29/25 05:52 Pain Level 0 01/29/25 05:52 Medical Decision Making Patient presenting to ED with dizziness. He does not describe spinning sensation, states it feels like he might pass out. However, he has had this sensation for some time. He reports having follow-up with physical therapy and undergoing what he is describing sounds like Bryant maneuver. Reports that the last few times he has been there he has not responded to treatment and was told by physical therapy that at this point it did not appear to be related to peripheral vertigo. He has never actually passed out. Symptoms are random and he does not really feel that movement necessarily brings them on. He states that lying in bed flat on his back is sometimes very difficult. He will get dizzy and have to actually roll over onto his stomach to make it go away. He also becomes dizzy at work. He saw his primary care who sent him for lab testing. I reviewed these and overall there is nothing significant other than low magnesium which is likely related to his alcohol use but not causing his symptoms. He has not had any head imaging in the past. This may all be related to cerebellum problems related to his chronic alcohol use. Given the lack of headaches or other neurologic findings doubtful that he has a mass or other issue. Does not appear to be TIA or CVA related. Do not think he requires further lab testing. Will obtain an EKG just because he feels like he might pass out. However, my feeling is that this is simply how he is describing his vertigo as his symptoms seem more related, especially given his past history. I will also obtain a head CT given lack of imaging in the past to rule out the possibility of any mass effect. I will give him a dose of meclizine to try to help with symptoms. Patient reports that the meclizine does seem to have helped. CT is unremarkable. He had actually had 1 this winter which I administered while reviewing his previous testing. In any event I will provide prescription for meclizine. 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 I will also provide a prescription for magnesium oxide given his low magnesium from earlier this week. He will follow-up with primary care for further evaluation and management. Return precautions provided. Medical Records Medical records reviewed: Yes I reviewed the patient's medical records. Medical records narrative: PCP note from 01/27 Lab Data Lab results reviewed: Yes I reviewed the patient's lab results. Lab results narrative: outpatient labs from 01/27 visit ECG Data Attestation: I personally reviewed and interpreted this ECG (s) as follows: Prior ECG tracings: available for review Interpretation: see EKG/MDM Quality:SDOH Health Related Social Needs: Health related social needs housing instability, housed, with risk of homelessness (Z59.811) Health related social needs details Has mold in his apartment, would be interested in bilingual legal assistant resources for tenant rights [facility] All Active Problems (Updated 01/29/25 @ 07:28 by Florencio Scott MD) Hypomagnesemia (Acute) Vertigo (Acute) Gallbladder polyp (Acute) Postprandial RUQ pain (Acute) Gallbladder disease (Acute) Dizziness (Acute) Nicotine addiction (Acute) Avascular necrosis of bone of left hip (Acute) Hepatic steatosis (Acute) Impairment of balance (Acute) Chronic vertigo (Acute) Medical History (Updated 01/29/25 @ 07:28 by Florencio Scott MD) Alcoholic pancreatitis Anxiety Acid reflux 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 Osteonecrosis bone of left hip 04/23/24 CT evidence of a vascular necrosis of left hip Alcohol abuse Gallstone (~08/2024) Surgical History 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) Cyst of right upper eyelid Family History Maternal Grandfather Alcohol abuse Maternal Uncle Alcohol abuse Social History Smoking/Tobacco Use Status: Current every day Tobacco Type: cigarettes Years smoked: 25 Smoking risk assessment performed?: Yes Alcohol Intake: current Alcohol Intake frequency: 0-2 drinks per day Alcohol type: beer and hard liquor Details: last drink was 2 weeks ago Drug use: Current Sobriety Substance use type: does not use Housing: homeless 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 Have you Been Recently Intoxicated or Drunk Within the Last 30 days?: Yes Have you Ever Experienced Previous Episodes of Alcohol Withdrawal?: Yes Have you ever Experienced Withdrawal Seizures?: No Have you ever Experienced Delirium Tremens(DT)s?: Yes Have you ever undergone Alcohol Rehabilitation Treatment (i.e, inpt ot outpatient treatment programs)?: No Have you ever Experienced Blackouts?: Yes Have you ever Combined Alcohol with other Downers within the last 90 days?: No Have you ever Combined Alcohol with any other Substance of Abuse during the last 90 days?: No Positive Blood Alcohol level on Presentation? [PCS.BAL]: Unable to Obtain Evidence of Increased Autonomic Activity (i.e. HR>120, tremor, sweating, agitation, nausea)?: Yes Result: 5
[2025-01-29] MEDS: Meclizine 25 MG TAB PO (06:23)
--- NOTE | 2025-01-29 07:20 | DI.[facility]_ITS ---
PROCEDURE INFORMATION: Exam: CT Head Without Contrast Exam date and time: 01/29/2025 6:37 AM Age: 49 years old Clinical indication: Other: Vertigo, trouble walking TECHNIQUE: Imaging protocol: Computed tomography of the head without contrast. COMPARISON: CT HEAD WO 09/04/2024 6:47 PM FINDINGS: Brain: No acute intracranial hemorrhage or abnormal intracranial mass effect is identified. No subdural collections are seen. Cerebral ventricles: The ventricles are stable size and position compared to 09/04/2024. No midline shift. Paranasal sinuses: Fluid level in the right maxillary sinus is new compared to previous exam. Mastoid air cells: Visualized portions of mastoid sinuses are not opacified. Bones: Unremarkable. No acute fracture. Soft tissues: No acute abnormality unless otherwise stated above. IMPRESSION: 1. No acute intracranial abnormality detected. 2. Right maxillary sinusitis, new compared to prior exam. Dictated and Authenticated by: Damien Carrion MD. Orderin Tyler Matias MD
[2025-01-29 07:32] VITALS: BP 162/93; PULSE 86; RESP 18; TEMP 36.9; O2SAT 96
== END 2025-01-29 07:38 | disposition home or self-care (01) ==
PROVIDERS: Emergency Provider Emergency Medicine; PCP Nurse Practitioner Family
DX: R42 Dizziness and giddiness (principal); E83.42 Hypomagnesemia; F17.210 Nicotine dependence, cigarettes, uncomplicated
CPT/HCPCS: 93005; 99284; 70450; 93010

== ENCOUNTER 2025-03-09 16:18 | Emergency (ER) | payer MEDICAID, SELFPAY ==
[2025-03-09] VITALS (61 sets, daily range): BP systolic 77–123; BP diastolic 48–81; PULSE 49–84; RESP 11–23; TEMP 36.5; O2SAT 92–99
--- NOTE | 2025-03-09 16:00 | RT.EKG_ITS ---
APPROVED REPORT Exam: Resting ECG Reason for Exam: Chest Pain Patient Location: E HR:74 bpm ECG Measurements Heart Rate 74 AXIS MT 168 P -41 QRSd 83 QRS 58 QT 367 T 62 QTc 406 Conclusion Sinus rhythm. [address] change no stemi
--- NOTE | 2025-03-09 16:23 | W.ED.GENAD ---
Discharge Plan Discharge Details Chief Complaint: Chest Pain Primary Care Provider: OWEN GARRISON ED Provider: Valery Padilla Home Meds and New Rx's Prescriptions: No Action meclizine 25 mg tablet 25 mg PO TID PRN (Reason: dizziness) Qty: 30 0RF magnesium oxide 500 mg capsule 500 mg PO BID Qty: 30 0RF HPI General Date/Time Provider Initiated Documentation: 03/09/25 16:20. HPI Narrative: Paul is a 49-year-old male with history of pancreatitis presenting with sternal chest pain radiating to back, resembling pancreatitis pain. Onset last night, stabbing in nature, associated with feverish feeling and rhinorrhea. Denies associated shortness of breath, nausea/vomiting, change in bowel or bladder function, pedal edema. Says that he has constant dizziness, says that this has been ongoing for a long time. Did not take meclizine because he is worried about its interaction with alcohol. Past medical history significant for pancreatitis, chronic vertigo, nicotine addiction. Denies history of MS, hypertension, hyperlipidemia, diabetes, heart disease, recent surgeries, immobility, or cancer history. No known family history of early cardiac disease or connective tissue disorders Smokes cigarettes, drinks alcohol (reduced intake). Consumed four [place] this morning for pain relief. No withdrawal symptoms since reducing alcohol. History of seizures and DTs, none since reducing alcohol. Related Data Home Medications ?Medication ?Instructions ?Recorded ?Confirmed magnesium oxide 500 mg capsule 500 mg PO BID #30 caps 01/29/25 03/09/25 meclizine 25 mg tablet 25 mg PO TID PRN dizziness #30 tabs 01/29/25 03/09/25 Previous Rx's ?Medication ?Instructions ?Recorded magnesium oxide 500 mg capsule 500 mg PO BID #30 caps 01/29/25 meclizine 25 mg tablet 25 mg PO TID PRN dizziness #30 tabs 01/29/25 Allergies Allergy/AdvReac Type Severity Reaction Status Date / Time hydromorphone (From Dilaudid) AdvReac Intermediate Other (See Verified 01/29/25 05:55 Comment) General Stated Complaint: Chest Pain SARAH: 2 Exam Narrative Exam Narrative: General Appearance: Normal. Patient appears uncle Vital signs: Within normal limits, no tachypnea/tachycardia/ Cardiovascular: Normal heart sounds, regular rate and rhythm. Equal radial pulses bilaterally. No pedal edema or calf swelling/tenderness. Gastrointestinal: Abdomen soft, nondistended, diffusely tender to palpation, normoactive bowel sounds. Skin: Warm and dry, no rash. Psychiatric: Normal. Course Vital Signs Vital signs: Vital Signs Temperature 36.5 C 03/09/25 16:17 Pulse 79 03/09/25 16:17 Respiratory Rate 16 03/09/25 16:17 Blood Pressure 118/81 03/09/25 16:17 Pulse Oximetry 96 03/09/25 16:17 Temperature 36.5 C 03/09/25 16:17 Temperature Source Oral 03/09/25 16:17 Pulse 79 03/09/25 16:17 Respiratory Rate 16 03/09/25 16:17 Blood Pressure 118/81 03/09/25 16:17 Blood Pressure Position Sitting 03/09/25 16:17 Pulse Oximetry 96 03/09/25 16:17 Oxygen Delivery Method Room Air 03/09/25 16:17 Oxygen Flow Rate 0 03/09/25 16:17 Pain Level 8 03/09/25 16:17 Medical Decision Making Initial Assessment: 49-year-old smoker with sternal chest pain radiating to back, similar to pancreatitis pain. History of pancreatitis, alcohol use, and dizziness. Differential Diagnosis includes but is not limited: Pancreatitis, esophagitis/ gastritis, peptic ulcer, ACS, dehydration, electrolyte imbalance ED Course: - Blood work ordered - Ordered CT scan of abdomen. - Administered pain medication and antiemetics. - Famotidine administered for likely gastritis/esophagitis I independently interpreted the following tests: EKG shows normal sinus rhythm rate 74, normal intervals, no changes consistent with acute ischemia. CBC, CMP, magnesium, serial troponins all unremarkable. Lipase elevated at 623, consistent with previous. EtOH elevated at 262.6 While in the emergency department Paul required multiple doses of antiemetics and pain medication (toradol, morphine). IV fluids administered. Folate and thiamine administered as well. CT abdomen/pelvis performed, significant for mild hazy peripancreatic fat stranding suggestive of mild pancreatitis. Distal esophageal wall thickening suspicious for esophagitis. Clinical impression: Mild acute pancreatitis without complications, esophagitis Patient presented for transfer to [facility] and [facility]. Awaiting decision re: bed availability. Handoff report given to Dr. Thomas, overnight attending Patient consented to the use of [facility] Imaging Data Radiologic Study: Radiologist's impression: PROCEDURE INFORMATION: Exam: CT Abdomen And Pelvis With Contrast Exam date and time: 03/09/2025 5:05 PM Age: 49 years old Clinical indication: Other: Epigastric pain/cp, history of pancreatitis TECHNIQUE: Imaging protocol: Computed tomography of the abdomen and pelvis with contrast. Contrast material: 350; Contrast volume: 75 ml; Contrast route: INTRAVENOUS (IV); COMPARISON: CT CHEST/ABD/PEL W 09/15/2024 10:52 AM FINDINGS: Lungs: Mild platelike atelectasis at the right base. Esophagus: Circumferential distal esophageal wall thickening. Liver: Possible fatty infiltration of the liver, difficult to confidently diagnose by CT imaging after administration of intravenous contrast. Gallbladder and biliary ducts: Moderate gallbladder distention. No calcified gallstones or biliary dilatation. Pancreas: Mild hazy peripancreatic fat stranding with an appearance suspicious for mild acute pancreatitis. Coarse calcifications in the pancreatic head. Spleen: Normal appearing spleen. Adrenal glands: Normal appearing adrenal glands. Kidneys and ureters: 1.5 cm indeterminate exophytic left upper pole renal lesion measuring 65 Hounsfield units on image 29 of series 9, not well characterized by today's exam but stable compared with the prior study from September 15, 2024. Complex cyst? Solid lesion ? Otherwise normal-appearing kidneys. No hydronephrosis. No obstructing ureteral stones. Stomach and bowel: No oral contrast. Stomach partially decompressed. No small bowel dilatation to suggest obstruction. Ascending colon, transverse colon, descending colon, and proximal sigmoid colon largely well evacuated of fecal material, collapsed, and demonstrating apparent mural thickening through the collapsed segments. Artifact of underdistention ? Colitis? Clinical correlation recommended. Normal-appearing fecal material in the mid-distal sigmoid colon and rectum. No evidence of focal acute diverticulitis. Appendix: Appendix partially obscured but normal in caliber and appearance through its visualized portion. Intraperitoneal space: No gross ascites or free air. Vasculature: Normal caliber abdominal aorta. Lymph nodes: No pathologically enlarged mesenteric, retroperitoneal, or pelvic sidewall lymph nodes. Urinary bladder: Urinary bladder partially obscured by artifact but grossly unremarkable, as seen. Reproductive: Prostate gland and seminal vesicles partially obscured by artifact and not well evaluated but grossly normal in size. Bones/joints: Prior right hip arthroplasty with streak artifact created by the metallic prosthesis partially obscuring the lower pelvis. No acute fracture seen among the bones of the abdomen or pelvis. Soft tissues: Tiny fat-containing ventral hernia at the umbilicus, doubtful clinical significance. IMPRESSION: 1. Mild hazy peripancreatic fat stranding suggesting mild acute pancreatitis. 2. Possible fatty infiltration of the liver, difficult to confidently diagnose by CT imaging after administration of intravenous contrast. 3. 1.5 cm indeterminate exophytic left upper pole renal lesion with a density of 65 Hounsfield units, stable compared with the prior exam from September 15, 2024. A complex cyst could have this appearance although a solid lesion is not excluded. Follow-up or further evaluation is recommended as per institution protocol. 4. Ascending, transverse, descending, and proximal sigmoid colon collapsed, well evacuated, and apparently thick-walled through its collapsed segments. Artifact of incomplete distention is suspected although colitis could probably mimic this appearance. Clinical correlation is recommended. 5. Circumferential distal esophageal wall thickening suspicious for esophagitis, nonspecific but possibly from reflux or vomiting Radiologic Study #2: Radiologist's impression: PROCEDURE INFORMATION: Exam: XR Chest Exam date and time: 03/09/2025 5:21 PM Age: 49 years old Clinical indication: Other: Chest pain TECHNIQUE: Imaging protocol: Radiologic exam of the chest. Views: 2 views. COMPARISON: CT CHEST/ABD/PEL W 09/15/2024 10:52 AM FINDINGS: Lungs: No pulmonary consolidation is seen. Pleural spaces: No pleural effusion or pneumothorax is demonstrated. Heart/Mediastinum: The heart appears normal in size. Bones/joints: The visualized bony structures appear grossly intact. IMPRESSION: No active disease is seen in the chest. Quality:SDOH Health Related Social Needs: Health related social needs risk of homeless Health related social needs details Has mold in his apartment, would be interested in legal word processor resources for tenant rights [facility] All Active Problems (Updated 03/01/25 @ 00:01 by [employer]) Gallbladder polyp (Acute) Postprandial RUQ pain (Acute) Gallbladder disease (Acute) Dizziness (Acute) Nicotine addiction (Acute) Avascular necrosis of bone of left hip (Acute) Hepatic steatosis (Acute) Impairment of balance (Acute) Chronic vertigo (Acute) Medical History (Updated 03/01/25 @ 00:01 by [employer]) Alcoholic pancreatitis Anxiety Acid reflux 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 Osteonecrosis bone of left hip 04/23/24 CT evidence of a vascular necrosis of left hip Alcohol abuse Gallstone (~08/2024) Surgical History 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) Cyst of right upper eyelid Family History Maternal Grandfather Alcohol abuse Maternal Uncle Alcohol abuse Social History Smoking/Tobacco Use Status: Current every day Tobacco Type: cigarettes Years smoked: 25 Smoking risk assessment performed?: Yes Alcohol Intake: current Alcohol Intake frequency: 0-2 drinks per day Alcohol type: beer and hard liquor Details: last drink was 2 weeks ago Drug use: Current Sobriety Substance use type: does not use Housing: 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
--- NOTE | 2025-03-09 16:30 | DI.RAD_ITS ---
Exam(s) XR CHEST 2V PA LATERAL EXAM: XR CHEST 2V PA LATERAL CLINICAL HISTORY: Chest pain TECHNIQUE: 2D digital imaging was performed. Two views. COMPARISON: CT CT CHEST/ABD/PEL W from 09/15/2024 FINDINGS: HEART: Normal size. Aorta: Not dilated. PULMONARY VASCULATURE: Normal. MEDIASTINUM: Unremarkable. LUNGS: Clear. PLEURAL SPACE: No pleural effusion or pneumothorax. BONE:Unremarkable for age. SOFT TISSUES: Unremarkable. IMPRESSION: No acute abnormality. The preliminary [facility] report was reviewed. DATA REPOSITORY: RADIATION DOSE DELIVERED:
--- NOTE | 2025-03-09 16:38 | NUR.NOTE ---
Nursing Note:ASA given by EMS
--- NOTE | 2025-03-09 16:45 | DI.CT_ITS ---
Exam(s) CT ABDOMEN PELVIS W EXAM: CT ABDOMEN PELVIS W CLINICAL HISTORY: epigastric pain/CP, history of pancreatitis. TECHNIQUE: Imaging Protocol: Axial computed tomography images with coronal and sagittal reformatted images were created and reviewed CONTRAST MATERIAL: Intravenous: Omnipaque 350 Contrast volume:75 ml Oral: no COMPARISON: CT CT CHEST/ABD/PEL W from 01/09/[address] ABDOMEN PELVIS W from 04/18/[address] CHEST/ABD/PEL W from 09/15/2024 FINDINGS: ABDOMEN and PELVIS: Lung Bases: No acute findings. Liver: Normal moderate hepatic steatosis. No suspicious mass. Gallbladder and biliary tract: No radiodense calculus. No wall thickening or pericholecystic fluid. No biliary dilation. Pancreas: Normal density. If occasions in the pancreatic head. Mild surrounding inflammation. No evidence of mass. Spleen: Normal. Kidneys: Normal size, contour and axis. No radiodense stones. No obstructive uropathy. No suspicious masses seen. There is a cyst at the upper pole of the left kidney, stable from 2019. No follow-up recommended. Adrenal glands: No masses seen. Vasculature: Abdominal aorta non-dilated. Soft tissues: Unremarkable. Bladder: No gross wall thickening. No calculi.No focal mass. Bowel: Mild wall thickening of the distal esophagus. No obstruction. No bowel wall thickening. Appendix normal. Mild diverticulosis. Peritoneal cavity: No ascites. No focal collection. No mesenteric inflammatory response. No free air. Bones: Right hip prosthesis. Increased densities in the left femoral head, consistent with avascular necrosis. No collapse. Similar appearance to prior exams. Reproductive organs: Unremarkable. Lymph nodes: No pathologically enlarged lymph nodes. IMPRESSION:: Findings consistent with mild pancreatitis. Mild esophageal wall thickening could indicate esophagitis. The preliminary [facility] report was reviewed. RADIATION DOSE DELIVERED: 337.01mGy.cm Total DLP DATA REPOSITORY: All CT scans at this facility are submitted to the National Radiology Data Registry (NRDR) Dose Index Registry (DIR) with the [employer] (ACR). RADIATION OPTIMIZATION: All CT scans at this facility use at least one of these dose optimization techniques: automated exposure control; mA and/or kV adjustment per patient size (includes targeted exams where dose is matched to clinical indication); or iterative reconstruction.
[2025-03-09] MEDS: Famotidine 20 MG/2 ML VIAL 40 MG IVP (16:54)
[2025-03-09 17:01] LABS: Abs Immature Grans 0.02 10^3/uL (0.0-0.06); HCT 43.9 % (40.0-50.0); HGB 15.4 g/dL (13.5-17.5); Immature Grans % 0.3 %; MCH 34.1 pg (27.0-33.0); MCHC 35.1 % (32.0-36.0); MCV 97 fL (80-95); MPV 9.6 fL (8.0-11.0); Platelet Count 156 10^3/uL (130-400); RBC 4.51 10^6/uL (4.36-5.78); RDW 12.8 % (11.8-14.1); RDW-SD 46.4 fL; WBC 6.17 10^3/uL (4.4-10.8)
[2025-03-09] MEDS: Normal Saline - Diluent 50 ML VIAL IJ (17:03)
[2025-03-09] MEDS: Omnipaque 350 MG/ML 100 ML BTL IJ (17:03)
[2025-03-09 17:26] LABS: ALT 53 U/L (16-63); AST 45 U/L (15-37); Albumin 4.0 g/dL (3.4-5.0); Alkaline Phosphatase 83 U/L (46-116); Anion Gap 13.5 mmol/L (3-11); BUN 4 mg/dL (7-18); Bilirubin, Total 0.3 mg/dL (0.2-1.0); CO2 27.5 mmol/L (21.0-32.0); Calcium 9.3 mg/dL (8.5-10.1); Chloride 101 mmol/L (98-107); Estimated GFR 125.81 (mL/min/1.73m2); Glucose 97 mg/dL (74-106); Magnesium 1.8 mg/dL (1.8-2.4); Potassium 3.8 mmol/L (3.5-5.1); Sodium 142 mmol/L (136-145); Total Protein 8.2 g/dL (6.4-8.2); Troponin I 6 ng/L (<or=76)
[2025-03-09 17:44] LABS: Lipase 623 U/L (<78)
[2025-03-09] MEDS: Ondansetron 4 MG/2 ML VIAL IVP (17:48)
[2025-03-09] MEDS: Ketorolac 15 MG/ML VIAL IVP (17:49)
[2025-03-09] MEDS: Folic Acid 1 MG TAB PO (17:49)
[2025-03-09] MEDS: Lactated Ringers 1,000 ML 500 ML IV (17:56)
[2025-03-09 18:16] LABS: Troponin I 7 ng/L (<or=76)
[2025-03-09] MEDS: Thiamine 100 MG TAB PO (18:20)
--- NOTE | 2025-03-09 18:23 | DI.[facility]_ITS ---
PROCEDURE INFORMATION: Exam: CT Abdomen And Pelvis With Contrast Exam date and time: 03/09/2025 5:05 PM Age: 49 years old Clinical indication: Other: Epigastric pain/cp, history of pancreatitis TECHNIQUE: Imaging protocol: Computed tomography of the abdomen and pelvis with contrast. Contrast material: 350; Contrast volume: 75 ml; Contrast route: INTRAVENOUS (IV); COMPARISON: CT CHEST/ABD/PEL W 09/15/2024 10:52 AM FINDINGS: Lungs: Mild platelike atelectasis at the right base. Esophagus: Circumferential distal esophageal wall thickening. Liver: Possible fatty infiltration of the liver, difficult to confidently diagnose by CT imaging after administration of intravenous contrast. Gallbladder and biliary ducts: Moderate gallbladder distention. No calcified gallstones or biliary dilatation. Pancreas: Mild hazy peripancreatic fat stranding with an appearance suspicious for mild acute pancreatitis. Coarse calcifications in the pancreatic head. Spleen: Normal appearing spleen. Adrenal glands: Normal appearing adrenal glands. Kidneys and ureters: 1.5 cm indeterminate exophytic left upper pole renal lesion measuring 65 Hounsfield units on image 29 of series 9, not well characterized by today's exam but stable compared with the prior study from September 15, 2024. Complex cyst? Solid lesion ? Otherwise normal-appearing kidneys. No hydronephrosis. No obstructing ureteral stones. Stomach and bowel: No oral contrast. Stomach partially decompressed. No small bowel dilatation to suggest obstruction. Ascending colon, transverse colon, descending colon, and proximal sigmoid colon largely well evacuated of fecal material, collapsed, and demonstrating apparent mural thickening through the collapsed segments. Artifact of underdistention ? Colitis? Clinical correlation recommended. Normal-appearing fecal material in the mid-distal sigmoid colon and rectum. No evidence of focal acute diverticulitis. Appendix: Appendix partially obscured but normal in caliber and appearance through its visualized portion. Intraperitoneal space: No gross ascites or free air. Vasculature: Normal caliber abdominal aorta. Lymph nodes: No pathologically enlarged mesenteric, retroperitoneal, or pelvic sidewall lymph nodes. Urinary bladder: Urinary bladder partially obscured by artifact but grossly unremarkable, as seen. Reproductive: Prostate gland and seminal vesicles partially obscured by artifact and not well evaluated but grossly normal in size. Bones/joints: Prior right hip arthroplasty with streak artifact created by the metallic prosthesis partially obscuring the lower pelvis. No acute fracture seen among the bones of the abdomen or pelvis. Soft tissues: Tiny fat-containing ventral hernia at the umbilicus, doubtful clinical significance. IMPRESSION: 1. Mild hazy peripancreatic fat stranding suggesting mild acute pancreatitis. 2. Possible fatty infiltration of the liver, difficult to confidently diagnose by CT imaging after administration of intravenous contrast. 3. 1.5 cm indeterminate exophytic left upper pole renal lesion with a density of 65 Hounsfield units, stable compared with the prior exam from September 15, 2024. A complex cyst could have this appearance although a solid lesion is not excluded. Follow-up or further evaluation is recommended as per institution protocol. 4. Ascending, transverse, descending, and proximal sigmoid colon collapsed, well evacuated, and apparently thick-walled through its collapsed segments. Artifact of incomplete distention is suspected although colitis could probably mimic this appearance. Clinical correlation is recommended. 5. Circumferential distal esophageal wall thickening suspicious for esophagitis, nonspecific but possibly from reflux or vomiting. Dictated and Authenticated by: Prakash Reyes MD. Orderin Ernestina Rasmussen MD
--- NOTE | 2025-03-09 18:24 | DI.[facility]_ITS ---
PROCEDURE INFORMATION: Exam: XR Chest Exam date and time: 03/09/2025 5:21 PM Age: 49 years old Clinical indication: Other: Chest pain TECHNIQUE: Imaging protocol: Radiologic exam of the chest. Views: 2 views. COMPARISON: CT CHEST/ABD/PEL W 09/15/2024 10:52 AM FINDINGS: Lungs: No pulmonary consolidation is seen. Pleural spaces: No pleural effusion or pneumothorax is demonstrated. Heart/Mediastinum: The heart appears normal in size. Bones/joints: The visualized bony structures appear grossly intact. IMPRESSION: No active disease is seen in the chest. Dictated and Authenticated by: Prakash Reyes MD. Orderin Ernestina Rasmsusen MD
[2025-03-09] MEDS: diphenhydrAMINE 50 MG/ML VIAL 25 MG IVP (19:46)
[2025-03-09] MEDS: MORPHine 4 MG/ML SYR IVP (19:46)
[2025-03-09] MEDS: POTASSIUM CHLORIDE/0.9% NACL 1,000 ML 125 MEQ IV (19:47)
[2025-03-09] MEDS: Ondansetron 4 MG/2 ML VIAL (20:09)
[2025-03-09] MEDS: MORPHine 10 MG/ML VIAL 2 MG IVP ×2 (21:54→23:49)
[2025-03-09] MEDS: Prochlorperazine 10 MG/2 ML VIAL 5 MG IVP (21:57)
--- NOTE | 2025-03-09 22:49 | HPE_ITS ---
[facility] All Active Problems (Updated 03/01/25 @ 00:01 by ELAINE PHILLIPS) Gallbladder polyp (Acute) Postprandial RUQ pain (Acute) Gallbladder disease (Acute) Dizziness (Acute) Nicotine addiction (Acute) Avascular necrosis of bone of left hip (Acute) Hepatic steatosis (Acute) Impairment of balance (Acute) Chronic vertigo (Acute) Medical History (Updated 03/01/25 @ 00:01 by ELAINE PHILLIPS) Alcoholic pancreatitis Anxiety Acid reflux 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 Osteonecrosis bone of left hip 04/23/24 CT evidence of a vascular necrosis of left hip Alcohol abuse Gallstone (~08/2024) Surgical History 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) Cyst of right upper eyelid Family History Maternal Grandfather Alcohol abuse Maternal Uncle Alcohol abuse Social History Smoking/Tobacco Use Status: Current every day Tobacco Type: cigarettes Years smoked: 25 Smoking risk assessment performed?: Yes Alcohol Intake: current Alcohol Intake frequency: 0-2 drinks per day Alcohol type: beer and hard liquor Details: last drink was 2 weeks ago Drug use: Current Sobriety Substance use type: does not use Housing: homeless 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 Do you feel safe at home: Yes Do you feel safe in your relationship?: Yes Additional Social history: stays at the [facility] BLANCO Guerra 09/04/24 Meds Allergies and Home Medications Allergies Allergy/AdvReac Type Severity Reaction Status Date / Time hydromorphone (From Dilaudid) AdvReac Intermediate Other (See Verified 01/29/25 05:55 Comment) Home Medications ?Medication ?Instructions ?Recorded ?Confirmed ?Type magnesium oxide 500 mg capsule 500 mg PO BID #30 caps 01/29/25 03/09/25 Rx meclizine 25 mg tablet 25 mg PO TID PRN dizziness # 30 tabs 01/29/25 03/09/25 Rx Results Imaging Imaging Studies: CT abdomen/pelvis IMPRESSION: 1. Mild hazy peripancreatic fat stranding suggesting mild acute pancreatitis. 2. Possible fatty infiltration of the liver, difficult to confidently diagnose by CT imaging after administration of intravenous contrast. 3. 1.5 cm indeterminate exophytic left upper pole renal lesion with a density of 65 Hounsfield units, stable compared with the prior exam from September 15, 2024. A complex cyst could have this appearance although a solid lesion is not excluded. Follow-up or further evaluation is recommended as per institution protocol. 4. Ascending, transverse, descending, and proximal sigmoid colon collapsed, well evacuated, and apparently thick-walled through its collapsed segments. Artifact of incomplete distention is suspected although colitis could probably mimic this appearance. Clinical correlation is recommended. 5. Circumferential distal esophageal wall thickening suspicious for esophagitis, nonspecific but possibly from reflux or vomiting. Labs 03/09/25 16:30 03/09/25 16:30 Labs: Laboratory Results - last 24 hr 03/09/25 03/09/25 03/09/25 16:30 17:55 19:33 WBC 6.17 RBC 4.51 Hgb 15.4 Hct 43.9 MCV 97 H MCH 34.1 H MCHC 35.1 RDW 12.8 Plt Count 156 MPV 9.6 Immature Gran % 0.3 Neutrophils % 52.6 Lymphocytes % 37.1 Monocytes % 7.8 Eosinophils % 1.6 Basophils % 0.6 Nucleated RBC % 0.0 Absolute Neutrophils 3.24 Absolute Lymphocytes 2.29 Absolute Monocytes 0.48 Absolute Eosinophils 0.10 Absolute Basophils 0.04 Sodium 142 Potassium 3.8 Chloride 101 Carbon Dioxide 27.5 Anion Gap 13.5 H BUN 4 L Creatinine 0.5 L Est GFR (CKD-EPI 2020) 125.81 Glucose 97 Calcium 9.3 Magnesium 1.8 Total Bilirubin 0.3 AST 45 H ALT 53 Alkaline Phosphatase 83 Troponin I 6 7 Cancelled Total Protein 8.2 Albumin 4.0 Lipase 623 H Ethyl Alcohol 262.6 H Last Vital Signs Temp 36.5 C 03/09/25 16:17 Pulse 61 03/09/25 20:15 Resp 19 03/09/25 20:15 BP 99/69 L 03/09/25 20:15 Pulse Ox 95 03/09/25 20:15
[2025-03-10] VITALS (54 sets, daily range): BP systolic 126–164; BP diastolic 74–99; PULSE 67–89; RESP 14–24; O2SAT 92–97
[2025-03-10] MEDS: LORazepam 20 MG/10 ML VIAL IVP (00:49)
[2025-03-10] MEDS: fentaNYL 100 MCG/2 ML VIAL 50 MCG IVP ×3 (00:49→07:27)
--- NOTE | 2025-03-10 01:38 | W.EDPROG ---
Date of service: 03/10/25 Time of Service: 01:38 Medical Decision Making Patient was signed out to me pending acceptance for transfer to [facility]. Case was discussed with Dr. Weir. She accepts patient for transfer. Patient remains hemodynamically stable, he does not show signs of severe withdrawal at this time. I have extensively reviewed the treatment plan with the patient. I have addressed all patient concerns at this time. I have also discussed the plan with the admitting physician and they agree with the current assessment and plan and have agreed to assume responsibility for the patient. All parties demonstrate verbal understanding and agreement with our assessment and plan at this time. The documentation in this chart was dictated using [employer] dictation software. Please excuse any dictation errors. At time of transfer the patient was reassessed and continued to demonstrate No signs of acute respiratory distress requiring intubation, hemodynamic instability requiring pressor support, or rapidly declining mental status. Quality:SDOH Health Related Social Needs: Health related social needs risk of homeless Health related social needs details Has mold in his apartment, would be interested in legal billing specialist resources for tenant rights Discharge Plan Disposition Patient Disposition: Transfer-Acute Inpatient Care Specific Acute Inpt Facility: Other Condition: Stable Discharge Details Clinical Impression: Pancreatitis, Alcoholism, chronic Primary Care Provider: OWEN GARRISON ED Provider: Alejandro Thomas Home Meds and New Rx's Prescriptions: No Action meclizine 25 mg tablet 25 mg PO TID PRN (Reason: dizziness) Qty: 30 0RF magnesium oxide 500 mg capsule 500 mg PO BID Qty: 30 0RF
[2025-03-10 04:28] LABS: Anion Gap 13.0 mmol/L (3-11); BUN 7 mg/dL (7-18); CO2 25.0 mmol/L (21.0-32.0); Calcium 8.8 mg/dL (8.5-10.1); Chloride 101 mmol/L (98-107); Estimated GFR 119.07 (mL/min/1.73m2); Glucose 124 mg/dL (74-106); Potassium 4.3 mmol/L (3.5-5.1); Sodium 139 mmol/L (136-145)
== END 2025-03-10 08:01 | disposition short-term general hospital (02) ==
PROVIDERS: Nurse Practitioner Family; Emergency Provider Student in an Organized Health Care Education/Training Program; PCP Nurse Practitioner Family
DX: K85.90 Acute pancreatitis without necrosis or infection, unspecified (principal); F10.20 Alcohol dependence, uncomplicated; F17.210 Nicotine dependence, cigarettes, uncomplicated
CPT/HCPCS: 00123; 36415; 80048; 80053; 83690; 87426; 93005; 96361; 96365; 96366; 96375; 96376; 99285; 71046; 74177; 80320; 83735; 84484; 85025; 93010; J0780; J1200; J1885; J2060; J2270; J2405; J3010; J3490

== ENCOUNTER 2025-03-22 06:10 | Inpatient (IN) | payer MEDICAID, SELFPAY ==
[2025-03-22] VITALS (28 sets, daily range): BP systolic 113–163; BP diastolic 68–99; PULSE 63–119; RESP 12–22; TEMP 36.5–37.6; O2SAT 92–100
--- NOTE | 2025-03-22 06:15 | DI.CT_ITS ---
Exam(s) CT HEAD WO EXAM: CT HEAD WO CLINICAL HISTORY: fall, etoh, dizzy. TECHNIQUE: Imaging Protocol: Axial computed tomography images with coronal and sagittal reformatted images were created and reviewed COMPARISON: CT CT HEAD WO from 01/29/2025 FINDINGS: There are no skull fractures. There is no fluid in the visualized paranasal sinuses. There is no evidence of intracranial hemorrhage, mass effect, or shift of midline structures. There are no extra-axial fluid collections. The ventricles are not enlarged or shifted and there is no blood within the ventricular system nor within the basal cisterns. IMPRESSION: No acute intracranial findings on this noninfused CT scan of the brain. Preliminary virtual Radiology report was reviewed RADIATION DOSE DELIVERED: 913.77mGy.cm Total DLP DATA REPOSITORY: All CT scans at this facility are submitted to the National Radiology Data Registry (NRDR) Dose Index Registry (DIR) with the [employer] (ACR). RADIATION OPTIMIZATION: All CT scans at this facility use at least one of these dose optimization techniques: automated exposure control; mA and/or kV adjustment per patient size (includes targeted exams where dose is matched to clinical indication); or iterative reconstruction.
--- NOTE | 2025-03-22 06:15 | RT.EKG_ITS ---
APPROVED REPORT Exam: Resting ECG Reason for Exam: chest pain Patient Location: E HR:100 bpm ECG Measurements Heart Rate 100 AXIS MO 168 P 65 QRSd 91 QRS 59 QT 330 T 63 QTc 426 Conclusion Sinus tachycardia...rate> 99 ST elev, probable normal early repol pattern...ST elevation, age<55 PHysician: Does not meet STEMI criterion, no depressions, mild elevation in V1
--- NOTE | 2025-03-22 06:15 | DI.CT_ITS ---
Exam(s) CT THORAX ABD/PEL CTA EXAM: CT THORAX ABD/PEL CTA CLINICAL HISTORY: vomiting, chest pain, etoh, falls. TECHNIQUE: Imaging Protocol: Axial computed tomography images with coronal and sagittal reformatted images were created and reviewed CONTRAST MATERIAL: Intravenous: Omnipaque 350 Contrast volume:75 mL Oral: None COMPARISON: CT CT ABDOMEN PELVIS W from 03/09/2025 FINDINGS: CHEST: AORTA: The diameter of the ascending thoracic aorta is upper normal. No significant acute findings in the aortic arch and descending thoracic aorta. No dissection. There is also no evidence of aneurysm nor dissection of the abdominal aorta. There is some partially calcified plaque in the abdominal aorta but no aneurysmal dilatation and no significant stenosis at the origin of the main vessels off of the abdominal aorta. Aortic bifurcation appears unremarkable as do the common and external iliac arteries and common femoral arteries. Internal iliac arteries also unremarkable. LUNGS: No lung contusion, infiltrates, pleural effusions, nor concerning lung nodules. There are no significant focal findings in the trachea mainstem bronchi and there is no bronchiectasis. There is a healed fracture of the anterolateral aspect of the right 6 rib. There is also healed fracture of the posterior aspect of the left 11th rib. There no scapular fractures.. MEDIASTINUM: No evidence of sternal fracture or mediastinal hematoma. No incidental hilar nor mediastinal adenopathy. CARDIAC: Heart size is normal. There is no pericardial effusion. ABDOMEN: There is no evidence of abdominal aortic aneurysm nor dissection.There is no aneurysmal dilatation of the common iliac arteries.The celiac and superior mesenteric arteries are patent. There is no ascites. No evidence of mesenteric nor bowel wall hematomas. LIVER: Liver is hypodense implying steatosis. There no discrete focal hepatic lesions. There are no liver lacerations. GALLBLADDER/BILIARY: No obvious gallbladder pathology. CBD is not dilated. PANCREAS: No evidence of pancreatic mass nor dilatation of the pancreatic duct. SPLEEN: Spleen is not enlarged. No lacerations. There are no intrasplenic lesions. ADRENALS: There are no significant adrenal masses. KIDNEYS: No evidence of kidney laceration or subcapsular hematomas. No calculi nor hydronephrosis. No solid renal masses. No cysts. LYMPH NODES: There is no retroperitoneal nor para-aortic adenopathy. No obvious mesenteric masses. ABDOMINAL WALL: No evidence of significant anterior abdominal wall hernia. GI: There is no evidence of bowel obstruction, free air, nor abscess. PELVIS: LYMPH NODES: There is no intrapelvic nor inguinal adenopathy. GI: No evidence of appendicitis.No evidence of sigmoid diverticulitis. URINARY BLADDER: No calculi nor masses evident REPRODUCTIVE: Prostate size upper normal. OSSEOUS: There is right hip prosthesis. No fractures. No osseous lesions. No significant disc space narrowing. IMPRESSION: 1. No significant acute findings in the chest, abdomen, and pelvis. 2. There are healed fracture of the right 6 rib and left 11th ribs. 3. No acute fractures. 4. Right hip prosthesis noted Preliminary virtual Radiology report was reviewed RADIATION DOSE DELIVERED: 715.25mGy.cm Total DLP DATA REPOSITORY: All CT scans at this facility are submitted to the National Radiology Data Registry (NRDR) Dose Index Registry (DIR) with the [employer] (ACR). RADIATION OPTIMIZATION: All CT scans at this facility use at least one of these dose optimization techniques: automated exposure control; mA and/or kV adjustment per patient size (includes targeted exams where dose is matched to clinical indication); or iterative reconstruction.
--- NOTE | 2025-03-22 06:27 | ED.GENADUL_ITS ---
Discharge Plan Discharge Details Chief Complaint: ETOHWithdr Clinical Impression: Alcohol withdrawal, Acute hypokalemia Primary Care Provider: OWEN GARRISON ED Provider: Alejandro Thomas Home Meds and New Rx's Prescriptions: No Action meclizine 25 mg tablet 25 mg PO TID PRN (Reason: dizziness) Qty: 30 0RF magnesium oxide 500 mg capsule 500 mg PO BID Qty: 30 0RF HPI General Date/Time Provider Initiated Documentation: 03/22/25 06:17 . HPI Narrative: This is a pleasant 50-year-old male with a past medical history of severe chronic alcoholism, pancreatitis, smoking use, hepatic steatosis, who presents today for evaluation of feeling unwell patient has been drinking a fair bit as of late. He is not able to go into the specifics, states that he has been quite a bit. Last drink was just before EMS came to pick him up. He states that throughout the night he has been feeling extremely dizzy, has had intermittent twitches, feels horrible, something really feels off, has had intermittent chest pain, nausea, and generalized feelings of unwellness. He denies any hematemesis. He denies any recent falls. He denies any tearing or ripping sensation in his abdomen or chest. No other complaints at this time. Related Data Home Medications ?Medication ?Instructions ?Recorded ?Confirmed magnesium oxide 500 mg capsule 500 mg PO BID #30 caps 01/29/25 03/22/25 meclizine 25 mg tablet 25 mg PO TID PRN dizziness # 30 tabs 01/29/25 03/22/25 Previous Rx's ?Medication ?Instructions ?Recorded magnesium oxide 500 mg capsule 500 mg PO BID #30 caps 01/29/25 meclizine 25 mg tablet 25 mg PO TID PRN dizziness # 30 tabs 01/29/25 Allergies Allergy/AdvReac Type Severity Reaction Status Date / Time hydromorphone (From Dilaudid) AdvReac Intermediate Other (See Verified 01/29/25 05:55 Comment) General Stated Complaint: ETOHWithdr SARAH: 2 Exam Narrative Exam Narrative: 1.Const: Well-nourished, Well-developed, appearing stated age 2.Eyes: PERRL, no conjunctival injection, and symmetrical lids. 3.ENT: Atraumatic external nose and ears. Moist MM. Neck: Symmetric, trachea midline, No thyromegaly. 4.CVS: +S1/S2, Peripheral pulses 2+ and equal in all extremities. Brisk capillary refill in all extremities. 5.RESP: Unlabored respiratory effort. Clear to auscultation bilaterally. No wheezes rales or rhonchi 6.GI: Soft, Nondistended, No hepatosplenomegaly. No guarding or rebound. 7.MSK: Normocephalic/Atraumatic, Extremities w/o deformity or ttp No cyanosis or clubbing, Normal movement of all extremities 8.Skin: Warm, Dry. No rashes or lesions. 9.Neuro: pre sales architect II-XII grossly intact. Sensation grossly intact, no focal neurologic deficits. 10.Psych: (AAO) x3. Appropriate mood and affect Course Vital Signs Vital signs: Vital Signs Temperature 37.6 C H 03/22/25 06:14 Pulse 119 H 03/22/25 06:14 Respiratory Rate 22 03/22/25 06:14 Blood Pressure 163/99 H 03/22/25 06:14 Pulse Oximetry 98 03/22/25 06:14 Temperature 37.6 C H 03/22/25 06:14 Temperature Source Temporal Artery Scan 03/22/25 06:14 Pulse 119 H 03/22/25 06:14 Respiratory Rate 22 03/22/25 06:14 Respiratory Pattern Normal 03/22/25 06:20 Blood Pressure 163/99 H 03/22/25 06:14 Blood Pressure Position Sitting 03/22/25 06:14 Pulse Oximetry 98 03/22/25 06:14 Oxygen Delivery Method Room Air 03/22/25 06:14 Oxygen Flow Rate 0 03/22/25 06:14 Pain Level 9 03/22/25 06:14 Medical Decision Making This is a pleasant 50-year-old male with a past medical history of severe chronic alcoholism, pancreatitis, smoking use, hepatic steatosis, who presents today for evaluation of feeling unwell patient has been drinking a fair bit as of late. He is not able to go into the specifics, states that he has been quite a bit. Last drink was just before EMS came to pick him up. He states that throughout the night he has been feeling extremely dizzy, has had intermittent twitches, feels horrible, something really feels off, has had intermittent chest pain, nausea, and generalized feelings of unwellness. He denies any hematemesis. He denies any recent falls. He denies any tearing or ripping sensation in his abdomen or chest. No other complaints at this time. Exam demonstrates a twitchy appearing male. He denies any skin crawling sensation, hallucinations, or itchiness. He does not have followed in shape. He denies history of seizures in the past for withdrawal. No significant reproducible abdominal tenderness aside from mild achiness in the epigastric region. Differential is broad. Temperature is mildly up, he is tachycardic, and quite jittery. Differential includes withdrawal, cardiac etiology, pancreatitis, viral etiology. Will evaluate for these etiologies, get CT imaging of the head chest and abdomen secondary to concern for falls, pneumonia, worsening pancreatitis or other acute process. Choledocholithiasis. 7:26 AM Heart rate has improved with fluids and Librium. Still remains borderline febrile. Pending COVID flu and RSV test. White count negative, VBG demonstrates alkalosis with metabolic and respiratory mixed component. Potassium is low at 2.8, pending magnesium level. Will add a banana bag, as well as 20 mEq of IV potassium and 40 mEq of oral potassium. Calcium minimally high at 10.2. 30 show troponin and thyroid function are normal. Alcohol level is [address] Pending [address] imaging. Patient will be signed out to my colleague Dr. Wilkinson follow-up on imaging results and reassessment. Quality:SDOH Health Related Social Needs: Health related social needs risk of homeless Health related social needs details Has mold in his ap artment, would be interested in bankruptcy legal assistant resources for tenant rights [facility] All Active Problems (Updated 03/22/25 @ 07:27 by Alejandro Thomas DO) Acute hypokalemia (Acute) Alcohol withdrawal (Acute) Alcoholism, chronic (Acute) Pancreatitis (Chronic) Gallbladder polyp (Acute) Postprandial RUQ pain (Acute) Gallbladder disease (Acute) Dizziness (Acute) Nicotine addiction (Acute) Avascular necrosis of bone of left hip (Acute) Hepatic steatosis (Acute) Impairment of balance (Acute) Chronic vertigo (Acute) Medical History (Updated 03/22/25 @ 07:27 by Alejandro Thomas DO) Alcoholic pancreatitis Anxiety Acid reflux 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 Osteonecrosis bone of left hip 9/3/24 CT evidence of a vascular necrosis of left hip Alcohol abuse Gallstone (~08/2024) Surgical History 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) Cyst of right upper eyelid Family History Maternal Grandfather Alcohol abuse Maternal Uncle Alcohol abuse Social History Smoking/Tobacco Use Status: Current every day Tobacco Type: cigarettes Years smoked: 25 Smoking risk assessment performed?: Yes Alcohol Intake: current Alcohol Intake frequency: 3 or more drinks per day Alcohol type: beer and hard liquor Details: last drink was 2 weeks ago Drug use: Never Substance use type: does not use Housing: homeless 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 Do you feel safe at home: Yes Do you feel safe in your relationship?: Yes Additional [facility] history[facility] [place] Have you Been Recently Intoxicated or Drunk Within the Last 30 days?: Yes Have you Ever Experienced Previous Episodes of Alcohol Withdrawal?: Yes Have you ever Experienced Withdrawal Seizures?: No Have you ever Experienced Delirium Tremens(DT)s?: Yes Have you ever undergone Alcohol Rehabilitation Treatment (i.e, inpt ot outpatient treatment programs)?: Yes Have you ever Experienced Blackouts?: Yes Have you ever Combined Alcohol with other Downers within the last 90 days?: No Have you ever Combined Alcohol with any other Substance of Abuse during the last 90 days?: No Positive Blood Alcohol level on Presentation? [PCS.BAL]: Yes Evidence of Increased Autonomic Activity (i.e. HR>120, tremor, sweating, agitation, nausea)?: Yes Result: 7
[2025-03-22] MEDS: Ondansetron 4 MG/2 ML VIAL IVP ×2 (06:32→08:45)
[2025-03-22] MEDS: chlordiazePOXIDE 25 MG CAP 50 MG PO (06:32)
[2025-03-22] MEDS: Lactated Ringers 1,000 ML 1000 ML IV (06:34)
[2025-03-22 06:45] LABS: BE (Venous) 5 mmol/L (-2-3); HCO3 (Venous) 27 mmol/L (23-28); O2 Sat (Venous) 95 %; TCO2 (Venous) 23 mmol/L (24-29); pCO2 (Venous) 30 mmHg (41-51); pO2 (Venous) 65 mmHg
[2025-03-22 06:46] LABS: Abs Immature Grans 0.02 10^3/uL (0.0-0.06); HCT 39.8 % (40.0-50.0); HGB 14.0 g/dL (13.5-17.5); Immature Grans % 0.2 %; MCH 32.9 pg (27.0-33.0); MCHC 35.2 % (32.0-36.0); MCV 94 fL (80-95); MPV 9.2 fL (8.0-11.0); Platelet Count 244 10^3/uL (130-400); RBC 4.25 10^6/uL (4.36-5.78); RDW 12.4 % (11.8-14.1); RDW-SD 42.9 fL; WBC 8.30 10^3/uL (4.4-10.8)
[2025-03-22] MEDS: Normal Saline - Diluent 50 ML VIAL IJ (06:53)
[2025-03-22] MEDS: Omnipaque 350 MG/ML 100 ML BTL IJ (06:55)
[2025-03-22 07:00] LABS: Ammonia 22 umol/L (11-32)
[2025-03-22 07:02] LABS: INR 1.0 (0.9-1.1); PTT Activated 26.9 sec (20.6-30.2); Prothrombin Time 10.4 sec (9.1-11.1)
[2025-03-22 07:13] LABS: ALT 55 U/L (16-63); AST 44 U/L (15-37); Albumin 3.9 g/dL (3.4-5.0); Alkaline Phosphatase 90 U/L (46-116); Anion Gap 15.4 mmol/L (3-11); BUN 8 mg/dL (7-18); Bilirubin, Total 0.4 mg/dL (0.2-1.0); CO2 27.6 mmol/L (21.0-32.0); Calcium 10.2 mg/dL (8.5-10.1); Chloride 96 mmol/L (98-107); Estimated GFR 112.95 (mL/min/1.73m2); Glucose 167 mg/dL (74-106); Lipase 75 U/L (<78); Sodium 139 mmol/L (136-145); TSH (W/Ref FT4) 2.00 uIU/mL (0.36-3.74); Total Protein 8.0 g/dL (6.4-8.2); Troponin I 7 ng/L (<or=76)
[2025-03-22 07:16] LABS: Potassium 2.8 mmol/L (3.5-5.1)
[2025-03-22 07:32] LABS: COVID-19 PCR Negative (Negative); RSV PCR Negative (Negative)
--- NOTE | 2025-03-22 07:59 | ED.PROG_ITS ---
Date of service: 03/22/25 Time of Service: 07:59 Medical Decision Making In brief, this is a 50-year-old male patient with a history of alcohol use disorder, pancreatitis, and hepatic steatosis who is presenting for alcohol withdrawal symptoms and general malaise/discomfort. At the time that I took over his care, he had received IV fluids, Librium, and was receiving a banana bag. He endorses improvement but not resolution in his symptoms, and his tachycardia has resolved. He had laboratory studies performed which I reviewed, showing a hypokalemia to 2.8 which was repleted, otherwise no significant metabolic or electrolyte derangements, kidney or liver injury, anemia or leukocytosis. Initial troponin was negative, and his lipase was low. The patient was signed out to me pending radiology read of his CT head, chest, abdomen, and pelvis. He had a borderline elevation in his temperature on triage. His urinalysis and repeat troponins were still pending. - 1 and 3 hour delta troponins without significant interval increase, urinalysis noninfectious. I reviewed the patient's CT scans, and there is no evidence of intracranial hemorrhage or mass effect, CT of the chest and abdomen/pelvis is without acute pathology identified, including pancreatitis. He does have evidence of a subacute and healing rib fracture, patient endorses to me that he did take a fall in November. The patient's CIWA score did decrease from the high 20s down to 14 after the Librium, but he still appears acutely unwell with some tremulousness, had some shakiness and required 1 person assist to ambulate to the restroom. I provided him with a dose of oral Ativan, but feel that he would benefit significantly from inpatient treatment of his severe withdrawal as I am concerned about his success in the outpatient environment. He is unsupported at home and does not have someone who could assist him with a Librium taper safely. The patient's PAWS score places him in the high risk category at 6, and I reached out to Dr. Archibald who is graciously accepted this patient for admission to the hospitalist service for ongoing management of his acute alcohol withdrawal. He will be started on a phenobarbital protocol by the hospitalist team, and remained hemodynamically improved while under my care. Kellie Wilkinson MD Medical Records Medical records reviewed: Yes I reviewed the patient's medical records. Lab Data Lab results reviewed: Yes I reviewed the patient's lab results. Quality:SDOH Health Related Social Needs: Health related social needs risk of homeless Health related social needs details Has mold in his ap artment, would be interested in cyber legal advisor resources for tenant rights Discharge Plan Disposition Patient Disposition: [facility]mit to [facility] Condition: Stable Discharge Details Clinical Impression: Alcohol withdrawal, Acute hypokalemia Primary Care Provider: OWEN GARRISON ED Provider: Kellie Wilkinson Home Meds and New Rx's Prescriptions: No Action meclizine 25 mg tablet 25 mg PO TID PRN (Reason: dizziness) Qty: 30 0RF magnesium oxide 500 mg capsule 500 mg PO BID Qty: 30 0RF
[2025-03-22 08:03] LABS: Glucose Negative (Negative)
[2025-03-22 08:09] LABS: Troponin I 11 ng/L (<or=76)
[2025-03-22] MEDS: Potassium Chloride 20 MEQ TABCR 40 MEQ PO ×2 (08:11→13:43)
[2025-03-22] MEDS: MAGNESIUM SULFATE 8.12 MEQ, MULTIVITAMIN 10 ML, THIAMINE 100 MG, FOLIC ACID 1 MG in Nor... 168.867 MG IV (08:12)
[2025-03-22] MEDS: POTASSIUM CHLORIDE 20 MEQ/100 ML BAG 50 MEQ IV_INF ×3 (08:13→15:11)
--- NOTE | 2025-03-22 08:15 | DI.VRAD_ITS ---
Addendum created by Tita Stevens MD on 03/22/2025 8:32:18 AM EDT: There are benign calcifications in bilateral basal ganglia. No follow-up necessary. Initial report created on 03/22/2025 8:15:10 AM EDT: PROCEDURE INFORMATION: Exam: CT Head Without Contrast Exam date and time: 03/22/2025 6:57 AM Age: 50 years old Clinical indication: Other: Fall, ETOH, dizzy TECHNIQUE: Imaging protocol: Computed tomography of the head without contrast. COMPARISON: CT HEAD WO 01/29/2025 6:37 AM FINDINGS: Brain: There is no acute intracranial hemorrhage. No extra-axial fluid collection. No evidence of acute infarct. [place] white differentiation is intact. There is no evidence of mass. There is no mass effect or midline shift. Cerebral ventricles: No ventriculomegaly. Paranasal sinuses: There is mild mucosal thickening in paranasal sinuses. Mastoid air cells: No significant mastoid effusion. Bones: Unremarkable. No acute fracture. Soft tissues: Unremarkable as visualized. IMPRESSION: No evidence of acute intracranial abnormality. No acute hemorrhage. No evidence of acute infarct or mass. Dictated and Authenticated by: Tita Stevens MD. Orderin Martha Allen MD
[2025-03-22] MEDS: LORazepam 1 MG TAB PO (08:24)
--- NOTE | 2025-03-22 08:24 | DI.VRAD_ITS ---
PROCEDURE INFORMATION: Exam: CTA Chest With Contrast CTA Abdomen and Pelvis With Contrast Exam date and time: 03/22/2025 6:59 AM Age: 50 years old Clinical indication: Injury or trauma; Other: Vomiting, chest pain, ETOH, falls TECHNIQUE: Imaging protocol: Computed tomographic angiography of the chest with contrast. Exam focused on the arteries. Computed tomographic angiography of the abdomen and pelvis with contrast. Exam focused on the arteries. 3D rendering (Not supervised by radiologist): MIP and/or 3D reconstructed images were created by the technologist. Contrast material: OMNIPAQUE 350; Contrast volume: 75 ml; Contrast route: INTRAVENOUS (IV); COMPARISON: CT CHEST PE ABD PELVIS W 10/28/2023 5:56 AM FINDINGS: VASCULATURE: Pulmonary arteries: Normal. No pulmonary emboli. Aorta: No aortic aneurysm. No aortic dissection. Celiac trunk and mesenteric arteries: No occlusion or significant stenosis. Renal arteries: No occlusion or significant stenosis. Right iliac arteries: No occlusion or significant stenosis. Left iliac arteries: No occlusion or significant stenosis. CHEST: Lungs: Unremarkable. No consolidation. No masses. Pleural spaces: Unremarkable. No pneumothorax. No pleural effusion. Heart: Unremarkable. No cardiomegaly. No pericardial effusion. Coronary arteries: There is coronary artery calcification. ABDOMEN AND PELVIS: Liver: No mass. Gallbladder and biliary ducts: Unremarkable. No calcified stones. No ductal dilation. Pancreas: Unremarkable. No mass. No ductal dilation. Spleen: Unremarkable. No splenomegaly. Adrenal glands: Unremarkable. No mass. Kidneys and ureters: Unremarkable. No solid mass. No hydronephrosis. Stomach and bowel: Unremarkable. No obstruction. No mucosal thickening. Appendix: A normal appendix is identified. Intraperitoneal space: Unremarkable. No free air. No significant fluid collection. Urinary bladder: Unremarkable. No mass. Reproductive: Unremarkable as visualized. Lymph nodes: Unremarkable. No enlarged lymph nodes. Bones/joints: There is a right hip arthroplasty. Healing fracture of the right lateral 6th rib.There is no evidence of acute fracture. Soft tissues: There is a small fat-containing umbilical hernia. IMPRESSION: Unremarkable CTA chest, abdomen, and pelvis. Healing/subacute right 6th rib fracture. Dictated and Authenticated by: Diana Bueno MD. Orderin Martha Allen MD
--- NOTE | 2025-03-22 09:11 | HPE_ITS ---
Date of service: 03/22/25 Time of Service: 09:11 Assessment and Plan Assessment and plan (1) Alcohol withdrawal: Status: Acute Assessment and plan: Ethyl level 83, last drink this AM CIWA Phenobarbittal protocol IVF with MVI Daily thiamine and folate PRN zofran IV PPI Diet: clears advacned as tolerated dramatic coach seen in ED Not interested by rehab re: working and already used all vacation time this year d/t missed work in the setting o ETOH dependence Would like to start medication to reduce craving - mentioned using this in the past (2) Acute hypokalemia: Status: Acute Assessment and plan: Potassium at 2.8 will replace BMP in the morning (3) Pancreatitis: Status: Chronic Assessment and plan: History of pancreatitis last month but lipase is negative today (4) Alcoholic pancreatitis: Assessment and plan: as above Will continue to monitor (5) Anxiety: Assessment and plan: Lorazepam and Librium in the ED and as per point 1 (6) Nicotine addiction: Status: Acute Assessment and plan: NRT (7) On deep vein thrombosis (DVT) prophylaxis: Status: Inactive Assessment and plan: O n LMWH Discussed with Dr Archibald History of Present Illness History of Present Illness Chief Complaint: alcohol withdrawal symptoms and general malaise/discomfort Narrative: 50-year-old male patient with a history of alcohol use disorder, nicotine dependence, chronic vertigo, pancreatitis, and hepatic steatosis who is presenting for alcohol withdrawal symptoms and general malaise/discomfort. Workup in the ED showed negative findings on CT imaging of the head chest abdomen pelvis, healing/ subacute right sixth rib fracture noticed. Blood work showed no actionable findings except for hypokalemia at 2.8 and magnesium at 1.3; VBG showed metabolic alkalosis and ETOH level of 83.7 . The patient was admitted to the medical surgical floor today hospitalist service for alcohol withdrawal.The patient was admitted to the hospitalist service to the medical surgical floor with telemetry for ETOH withdrawal, respiratory alkalosis, hypokalemia, hypomagnesemia. The patient reported daily drinking of 6-pack after work, but missing work for a whole recently with lost of time; taking one drink today to alleviate tremors with subsequent nausea and vomiting without hematemesis but now resolved. Reporting intermittent vision changes, dizziness , weakness. Denied headache, chest pain, diarrhea, constipation, dysuria. Full code status confirmed. Review of Systems All systems reviewed & are unremarkable except as noted in HPI and below PFSH All Active Problems (Updated 03/22/25 @ 07:27 by Alejandro Thomas DO) Acute hypokalemia (Acute) Alcohol withdrawal (Acute) Alcoholism, chronic (Acute) Pancreatitis (Chronic) Gallbladder polyp (Acute) Postprandial RUQ pain (Acute) Gallbladder disease (Acute) Dizziness (Acute) Nicotine addiction (Acute) Avascular necrosis of bone of left hip (Acute) Hepatic steatosis (Acute) Impairment of balance (Acute) Chronic vertigo (Acute) Medical History (Updated 03/22/25 @ 07:27 by Alejandro Thomas DO) Alcoholic pancreatitis Anxiety Acid reflux 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 Osteonecrosis bone of left hip 04/23/24 CT evidence of a vascular necrosis of left hip Alcohol abuse Gallstone (~08/2024) Surgical History 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) Cyst of right upper eyelid Family History Maternal Grandfather Alcohol abuse Maternal Uncle Alcohol abuse Social History Smoking/Tobacco Use Status: Current every day Tobacco Type: cigarettes Years smoked: 25 Smoking risk assessment performed?: Yes Alcohol Intake: current Alcohol Intake frequency: 3 or more drinks per day Alcohol type: beer and hard liquor Details: last drink was 2 weeks ago Drug use: Never Substance use type: does not use Housing: homeless 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 Do you feel safe at home: Yes Do you feel safe in your relationship?: Yes Additional Social history: [facility] CharlieRN 09/04/24 Meds Allergies and Home Medications Allergies Allergy/AdvReac Type Severity Reaction Status Date / Time hydromorphone (From Dilaudid) AdvReac Intermediate Other (See Verified 01/29/25 05:55 Comment) Home Medications ?Medication ?Instructions ?Recorded ?Confirmed ?Type magnesium oxide 500 mg capsule 500 mg PO BID #30 caps 01/29/25 03/22/25 Rx meclizine 25 mg tablet 25 mg PO TID PRN dizziness # 30 tabs 01/29/25 03/22/25 Rx Exam Narrative Exam Narrative: 50 years old male, alert and oriented X 3 without acute distress, no focal neurological deficit, S1-S2 regular, unlabored breathing clear lung, abdomen is nondistended soft tender epigastrum, abd without fluctuance, bowel sounds are present, no CVA tenderness, moves all 4 extremities no edema to lower extremities Results Labs 03/22/25 06:34 03/22/25 06:34 Labs: Laboratory Results - last 24 hr 03/22/25 03/22/25 03/22/25 06:34 06:37 07:33 WBC 8.30 RBC 4.25 L Hgb 14.0 Hct 39.8 L MCV 94 MCH 32.9 MCHC 35.2 RDW 12.4 Plt Count 244 MPV 9.2 Immature Gran % 0.2 Neutrophils % 64.6 Lymphocytes % 22.8 Monocytes % 10.5 Eosinophils % 1.3 Basophils % 0.6 Nucleated RBC % 0.0 Absolute Neutrophils 5.36 Absolute Lymphocytes 1.89 Absolute Monocytes 0.87 H Absolute Eosinophils 0.11 Absolute Basophils 0.05 PT 10.4 INR 1.0 APTT 26.9 VBG pH 7.56 H VBG pCO2 30 L VBG pO2 65 VBG HCO3 27 VBG Total CO2 23 L VBG O2 Saturation 95 VBG Base Excess 5 H Sodium 139 Potassium 2.8 L* Chloride 96 L Carbon Dioxide 27.6 Anion Gap 15.4 H BUN 8 Creatinine 0.7 Est GFR (CKD-EPI 2020) 112.95 Glucose 167 H Calcium 10.2 H Total Bilirubin 0.4 AST 44 H ALT 55 Alkaline Phosphatase 90 Ammonia 22 Troponin I 7 11 Total Protein 8.0 Albumin 3.9 Lipase 75 TSH 2.00 Urine Color Urine Clarity Urine pH Ur Specific [place] Urine Protein Urine Ketones Urine Blood Urine Nitrite Urine Bilirubin Urine Urobilinogen Ur Leukocyte Esterase Urine Glucose Ethyl Alcohol 83.7 H COVID-19 Source Nasopharynx SARS-CoV-2 (PCR) Negative Influenza Type A (PCR) Negative Influenza Type B (PCR) Negative RSV (PCR) Negative 03/22/25 07:48 WBC RBC Hgb Hct MCV MCH MCHC RDW Plt Count MPV Immature Gran % Neutrophils % Lymphocytes % Monocytes % Eosinophils % Basophils % Nucleated RBC % Absolute Neutrophils Absolute Lymphocytes Absolute Monocytes Absolute Eosinophils Absolute Basophils PT INR APTT VBG pH VBG pCO2 VBG pO2 VBG HCO3 VBG Total CO2 VBG O2 Saturation VBG Base Excess Sodium Potassium Chloride Carbon Dioxide Anion Gap BUN Creatinine Est GFR (CKD-EPI 2020) Glucose Calcium Total Bilirubin AST ALT Alkaline Phosphatase Ammonia Troponin I Total Protein Albumin Lipase TSH Urine Color Yellow Urine Clarity Clear Urine pH 7.0 Ur Specific [place] 1.010 Urine Protein Negative Urine Ketones Negative Urine Blood Negative Urine Nitrite Negative Urine Bilirubin Negative Urine Urobilinogen 0.2 Ur Leukocyte Esterase Negative Urine Glucose Negative Ethyl Alcohol COVID-19 Source SARS-CoV-2 (PCR) Influenza Type A (PCR) Influenza Type B (PCR) RSV (PCR) Last Vital Signs Temp 37.6 C H 03/22/25 06:14 Pulse 96 H 03/22/25 08:20 Resp 19 03/22/25 08:20 BP 140/88 03/22/25 08:15 Pulse Ox 96 03/22/25 08:20 PAWSS Have you Been Recently Intoxicated or Drunk Within the Last 30 days?: Yes Have you Ever Experienced Previous Episodes of Alcohol Withdrawal?: Yes Have you ever Experienced Withdrawal Seizures?: No Have you ever Experienced Delirium Tremens(DT)s?: Yes Have you ever undergone Alcohol Rehabilitation Treatment (i.e, inpt ot outpatient treatment programs)?: Yes Have you ever Experienced Blackouts?: Yes Have you ever Combined Alcohol with other Downers within the last 90 days?: No Have you ever Combined Alcohol with any other Substance of Abuse during the last 90 days?: No Positive Blood Alcohol level on Presentation? [PCS.BAL]: Yes Evidence of Increased Autonomic Activity (i.e. HR>120, tremor, sweating, agitation, nausea)?: Yes Result: 7 Time Spent Time spent with Patient: >75 minutes Time was spent: preparing to see the patient(eg.review tests), obtaining and/or reviewing separately otained hiistory, ordering medications,tests, procedures, referring, communicating with other health critical care transport nurse, indepentently interpreting results, counseling the patient and care coordination
[2025-03-22 09:30] LABS: Magnesium 1.3 mg/dL (1.8-2.4)
[2025-03-22 09:55] LABS: Troponin I 13 ng/L (<or=76)
--- NOTE | 2025-03-22 10:24 | W.PC.ACHO ---
Registration Status: REG ER Primary Language: Preferred Language: Sami ED Information & Data Chief Complaint ETOHWithdr 03/22/25 06:30 Triage Note Pt w/ recent dx of 03/22/25 06:14 pancreatitis. Tried to quit ETOH in last 24hrs, reports 1/2 a 12pack of white claws a day ('sometimes more on the weekends'). Had 1 drink yesterday evening ~2300 and another @ ~0500 this am 'to keep the jitters at bay'. Feeling shakey, light-headed , nauseated and 'like shit' 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 Osteonecrosis Alcohol abuse Gallstone (~08/2024) (Last Reviewed 09/15/24 @ 09:02 by Meagan Hernandez NP) 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) Cyst of right upper eyelid Most Recent Vital Signs Temperature 37.6 C H 03/22/25 06:14 Temperature Source Temporal Artery Scan 03/22/25 06:14 Pulse 90 03/22/25 09:31 Pulse 90 03/22/25 09:31 Respiratory Rate 19 03/22/25 09:31 Respiratory Pattern Normal 03/22/25 08:29 Blood Pressure 119/77 03/22/25 09:31 Blood Pressure Mean 89 03/22/25 09:31 Blood Pressure Position Sitting 03/22/25 06:14 Pulse Oximetry 96 03/22/25 09:31 Oxygen Delivery Method Room Air 03/22/25 06:14 Oxygen Flow Rate 0 03/22/25 06:14 Pain Level 9 03/22/25 06:14 Allergies hydromorphone (From Dilaudid) Adverse Reaction (Intermediate, Verified 01/29/25 05:55) Other (See Comment) Nausea. Dont give me that stuff. Precautions Isolation Standard precaution 03/22/25 06:18 Active Medications Generic Name Dose Route Start Last Admin Trade Name Freq PRN Reason Stop Dose Admin Magnesium Sulfate 8.12 meq/ 1,013.2 mls @ 168.867 mls/hr 03/22/25 07:25 03/22/25 08:12 Multivitamins 10 ml/ Thiamine IV 03/22/25 13:24 168.867 mls/hr HCl 100 mg/ Folic Acid 1 mg/ INFUSION ONE Administration Sodium Chloride Iohexol 100 ml 03/22/25 07:00 03/22/25 06:55 Omnipaque 350 Mg/Ml 100 Ml Btl IJ 04/21/25 23:59 75 ml DIRECTED JOSSELYN Administration Sodium Chloride 50 ml 03/22/25 07:00 03/22/25 06:53 Normal Saline - Diluent 50 Ml Vial IJ 50 ml .FOR DI USE JOSSELYN Administration IV IV Catheter Type [Left Forearm Saline Lock ] IV Catheter Gauge [Left 18 Forearm] Diagnostics 03/22/25 03/22/25 03/22/25 Range/Units 09:30 07:48 07:33 WBC (4.4-10.8) 10^3/uL RBC (4.36-5.78) 10^6/uL Hgb (13.5-17.5) g/dL Hct (40.0-50.0) % MCV (80-95) fL MCH (27.0-33.0) pg MCHC (32.0-36.0) % RDW (11.8-14.1) % Plt Count (130-400) 10^3/uL MPV (8.0-11.0) fL Immature Gran % % Neutrophils % % Lymphocytes % % Monocytes % % Eosinophils % % Basophils % % Nucleated RBC % (0.0-0.3) % Absolute Neutrophils (1.2-6.7) 10^3/uL Absolute Lymphocytes (1.2-3.4) 10^3/uL Absolute Monocytes (0.1-0.8) 10^3/uL Absolute Eosinophils (0.0-0.7) 10^3/uL Absolute Basophils (0.0-0.2) 10^3/uL PT (9.1-11.1) sec INR (0.9-1.1) APTT (20.6-30.2) sec VBG pH (7.31-7.41) VBG pCO2 (41-51) mmHg VBG pO2 mmHg VBG HCO3 (23-28) mmol/L VBG Total CO2 (24-29) mmol/L VBG O2 Saturation % VBG Base Excess (-2-3) mmol/L Sodium (136-145) mmol/L Potassium (3.5-5.1) mmol/L Chloride (98-107) mmol/L Carbon Dioxide (21.0-32.0) mmol/L Anion Gap (3-11) mmol/L BUN (7-18) mg/dL Creatinine (0.70-1.30) mg/dL Est GFR (CKD-EPI 2020) (mL/min/1.73m2) Glucose (74-106) mg/dL Calcium (8.5-10.1) mg/dL Magnesium (1.8-2.4) mg/dL Total Bilirubin (0.2-1.0) mg/dL AST (15-37) U/L ALT (16-63) U/L Alkaline Phosphatase (46-116) U/L Ammonia (11-32) umol/L Troponin I 13 11 (<or=76) ng/L Total Protein (6.4-8.2) g/dL Albumin (3.4-5.0) g/dL Lipase (<78) U/L TSH (0.36-3.74) uIU/mL Urine Color Yellow (Yellow) Urine Clarity Clear (Clear) Urine pH 7.0 (5-8) Ur Specific [place] 1.010 (1.005-1.025) Urine Protein Negative (Neg-Trace) mg/dL Urine Ketones Negative (Negative) mg/dL Urine Blood Negative (Negative) Urine Nitrite Negative (Negative) Urine Bilirubin Negative (Negative) Urine Urobilinogen 0.2 (Up to 0.2) mg/dL Ur Leukocyte Esterase Negative (Negative) Urine Glucose Negative (Negative) mg/dL Ethyl Alcohol (<10) mg/dL COVID-19 Source SARS-CoV-2 (PCR) (Negative) Influenza Type A (PCR) (Negative) Influenza Type B (PCR) (Negative) RSV (PCR) (Negative) 03/22/25 03/22/25 Range/Units 06:37 06:34 WBC 8.30 (4.4-10.8) 10^3/uL RBC 4.25 L (4.36-5.78) 10^6/uL Hgb 14.0 (13.5-17.5) g/dL Hct 39.8 L (40.0-50.0) % MCV 94 (80-95) fL MCH 32.9 (27.0-33.0) pg MCHC 35.2 (32.0-36.0) % RDW 12.4 (11.8-14.1) % Plt Count 244 (130-400) 10^3/uL MPV 9.2 (8.0-11.0) fL Immature Gran % 0.2 % Neutrophils % 64.6 % Lymphocytes % 22.8 % Monocytes % 10.5 % Eosinophils % 1.3 % Basophils % 0.6 % Nucleated RBC % 0.0 (0.0-0.3) % Absolute Neutrophils 5.36 (1.2-6.7) 10^3/uL Absolute Lymphocytes 1.89 (1.2-3.4) 10^3/uL Absolute Monocytes 0.87 H (0.1-0.8) 10^3/uL Absolute Eosinophils 0.11 (0.0-0.7) 10^3/uL Absolute Basophils 0.05 (0.0-0.2) 10^3/uL PT 10.4 (9.1-11.1) sec INR 1.0 (0.9-1.1) APTT 26.9 (20.6-30.2) sec VBG pH 7.56 H (7.31-7.41) VBG pCO2 30 L (41-51) mmHg VBG pO2 65 mmHg VBG HCO3 27 (23-28) mmol/L VBG Total CO2 23 L (24-29) mmol/L VBG O2 Saturation 95 % VBG Base Excess 5 H (-2-3) mmol/L Sodium 139 (136-145) mmol/L Potassium 2.8 L* (3.5-5.1) mmol/L Chloride 96 L (98-107) mmol/L Carbon Dioxide 27.6 (21.0-32.0) mmol/L Anion Gap 15.4 H (3-11) mmol/L BUN 8 (7-18) mg/dL Creatinine 0.7 (0.70-1.30) mg/dL Est GFR (CKD-EPI 2020) 112.95 (mL/min/1.73m2) Glucose 167 H (74-106) mg/dL Calcium 10.2 H (8.5-10.1) mg/dL Magnesium 1.3 L (1.8-2.4) mg/dL Total Bilirubin 0.4 (0.2-1.0) mg/dL AST 44 H (15-37) U/L ALT 55 (16-63) U/L Alkaline Phosphatase 90 (46-116) U/L Ammonia 22 (11-32) umol/L Troponin I 7 (<or=76) ng/L Total Protein 8.0 (6.4-8.2) g/dL Albumin 3.9 (3.4-5.0) g/dL Lipase 75 (<78) U/L TSH 2.00 (0.36-3.74) uIU/mL Urine Color (Yellow) Urine Clarity (Clear) Urine pH (5-8) Ur Specific [place] (1.005-1.025) Urine Protein (Neg-Trace) mg/dL Urine Ketones (Negative) mg/dL Urine Blood (Negative) Urine Nitrite (Negative) Urine Bilirubin (Negative) Urine Urobilinogen (Up to 0.2) mg/dL Ur Leukocyte Esterase (Negative) Urine Glucose (Negative) mg/dL Ethyl Alcohol 83.7 H (<10) mg/dL COVID-19 Source Nasopharynx SARS-CoV-2 (PCR) Negative (Negative) Influenza Type A (PCR) Negative (Negative) Influenza Type B (PCR) Negative (Negative) RSV (PCR) Negative (Negative) Intake and Output - 24 Hour Total 03/22/25 06:09 thru 03/22/25 07:34 Intake Total 1000 Balance 1000 Weight 72.1 kg Intake: IV 1000 Falls Risk Assessment History of Falls No History 03/22/25 06:20 Contributing Factors No Factors 03/22/25 06:20 Ambulatory Aids Independent 03/22/25 06:20 Tubes/Lines None 03/22/25 06:20 Gait Evaluation No gait disturbance 03/22/25 06:20 Cognition No cognitive impairment 03/22/25 06:20 Fall Total Score 0 03/22/25 06:20 Level of Risk Standard/Low Risk 03/22/25 06:20 Problems (Last Updated 01/29/25 @ 06:24 by Florencio Scott MD) Acute hypokalemia (Acute) Alcohol withdrawal (Acute) Pancreatitis (Chronic) Nicotine addiction (Acute) v v v v v v v v v Sending and/or Receiving Nurses: Please use comment section below to note any information pertinent to the patient hand-off not included above. Information / Comments: AOx3, VSS, on RA, no pain, c/o generally feel unwell. last drink today morning at 5 am. SIWA score was 29 at 6:20 - lybrium given with moderate effect, 14 - at 830 and 1mg of ativan PO given - no reevaluation has been done. There are no orders for CIWA coverage until admitted to the floor. Potassium replenished, Mg is ordered. LFA 18G IV. Report received from: BLANCO Connell
[2025-03-22] MEDS: PHENobarbital 150 MG in Normal Saline 50 ML 100 MG IVPB (10:59)
[2025-03-22] MEDS: MAGNESIUM SULFATE 4 GM/100 ML BAG IV_INF (11:30)
[2025-03-22] MEDS: Acetaminophen 325 MG TAB 650 MG PO ×2 (11:30→19:59)
--- NOTE | 2025-03-22 11:55 | PHA.REVIEW2 ---
Pharmacy Admission Review Admission Clinical Review Admission Pharmacy Review: Acute hypokalemia (Acute) Alcohol withdrawal (Acute) Nicotine addiction (Acute) hydromorphone (From Dilaudid) Adverse Reaction (Intermediate, Verified 01/29/25 05:55) Other (See Comment) Resuscitation Status Full Code Height 5 ft 6 in Weight 72.1 kg Pharmacy Admission Review Renal Dosing Renal Dosing: BUN 8 mg/dL (7-18) 03/22/25 06:34 Creatinine 0.7 mg/dL (0.70-1.30) 03/22/25 06:34 Medications needing adjustments: Reviewed (CrCl 130 mL/min) List of meds needing interventions: Current medications are okay Anticoagulation Anticoagulation: Hgb 14.0 g/dL (13.5-17.5) 03/22/25 06:34 Hct 39.8 % (40.0-50.0) L 03/22/25 06:34 Plt Count 244 10^3/uL (130-400) 03/22/25 06:34 INR 1.0 (0.9-1.1) 03/22/25 06:34 Creatinine 0.7 mg/dL (0.70-1.30) 03/22/25 06:34 DVT Prophylaxis: Reviewed Medications: Enoxaparin (40mg daily) Relevant Labs Relevant Labs: Sodium 139 mmol/L (136-145) 03/22/25 06:34 Potassium 2.8 mmol/L (3.5-5.1) L* 03/22/25 06:34 Chloride 96 mmol/L (98-107) L 03/22/25 06:34 Magnesium 1.3 mg/dL (1.8-2.4) L 03/22/25 06:34 Electrolytes, C-Reactive P, ESR: Reviewed (Receiving IV potassium and magnesium replacement) Cardiac Review Cardiac Review: Troponin I 13 ng/L (<or=76) 03/22/25 09:30 BP, HR, EF%: Reviewed (BP and HR WNL) QTc Review QTc: Reviewed (426 from 03/22/25) IV to PO Switch IV Medications: Reviewed (phenobarbital for alcohol withdrawal) Home Meds Home Med List reviewed: Reviewed Relevent Home Meds Not ordered & why?: magnesium oxide and meclizine (PRN) Current Meds Current Medication Order Review: Intervened Comments: Phenobarbital for alcohol withdrawal Soft stop: 957mg Hard stop: 1276mg Total loading dose (will complete at 1730 today): 370mg JACOB 17 @ 0920 Currently no order for PRN phenobarbital - reached out to provider
[2025-03-22] MEDS: Pantoprazole 40 MG VIAL IVP (13:43)
[2025-03-22] MEDS: Nicotine 21 MG/24 HR PATCH TD (14:18)
[2025-03-22] MEDS: PHENobarbital 110 MG in Normal Saline 50 ML 100 MG IVPB ×2 (14:19→16:51)
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
[2025-03-22] MEDS: Normal Saline Flush 10 ML SYR IVP (19:58)
[2025-03-23] VITALS (7 sets, daily range): BP systolic 109–131; BP diastolic 81–94; PULSE 66–82; RESP 16–18; TEMP 36.2–36.8; O2SAT 96–98
[2025-03-23 06:59] LABS: Abs Immature Grans 0.02 10^3/uL (0.0-0.06); HCT 38.5 % (40.0-50.0); HGB 13.7 g/dL (13.5-17.5); Immature Grans % 0.3 %; MCH 34.1 pg (27.0-33.0); MCHC 35.6 % (32.0-36.0); MCV 96 fL (80-95); MPV 10.2 fL (8.0-11.0); Platelet Count 198 10^3/uL (130-400); RBC 4.02 10^6/uL (4.36-5.78); RDW 12.5 % (11.8-14.1); RDW-SD 44.2 fL; WBC 6.15 10^3/uL (4.4-10.8)
[2025-03-23 07:18] LABS: Anion Gap 9.2 mmol/L (3-11); BUN 2 mg/dL (7-18); CO2 27.8 mmol/L (21.0-32.0); Calcium 9.5 mg/dL (8.5-10.1); Chloride 100 mmol/L (98-107); Estimated GFR 125.03 (mL/min/1.73m2); Glucose 87 mg/dL (74-106); Magnesium 2.1 mg/dL (1.8-2.4); Potassium 3.9 mmol/L (3.5-5.1); Sodium 137 mmol/L (136-145)
[2025-03-23] MEDS: Pantoprazole 40 MG VIAL IVP (07:41)
[2025-03-23] MEDS: Thiamine 100 MG TAB PO (07:42)
[2025-03-23] MEDS: Normal Saline Flush 10 ML SYR IVP ×2 (07:42→20:29)
[2025-03-23] MEDS: Enoxaparin 40 MG/0.4 ML SYR SC (07:42)
[2025-03-23] MEDS: Folic Acid 1 MG TAB PO (07:42)
--- NOTE | 2025-03-23 11:53 | W.PM.PROGNOT ---
Date of Service Date of service: 03/23/25 Time of Service: 11:53 Assessment and Plan Assessment and plan (1) Alcohol withdrawal: Status: Acute Assessment and plan: continue CIWA with Phenobarbittal protocol IVF with MVI Daily thiamine and folate PRN zofran IV PPI Diet: will advance from clears to regular assistant cross country coach seen in ED Not interested by rehab re: working and already used all vacation time this year d/t missed work in the setting of ETOH dependence Would like to start medication to reduce craving - mentioned using this in the past (2) Acute hypokalemia: Status: Resolved Assessment and plan: Potassium at 2.8 repleted and normalized magnesium 2.1 (3) Nicotine addiction: Status: Acute Assessment and plan: supplementation while hospitalized will provide resources for cessation (4) On deep vein thrombosis (DVT) prophylaxis: Status: Acute Assessment and plan: continue enoxaparin Discussed with Dr Archibald Subjective Subjective Patient reports: no new complaints, feels better and tolerating liquids well Exam Const General: cooperative and no acute distress HENMT Mouth: moist mucous membranes Eyes Conjunctivae: normal conjunctivae Sclera: normal sclerae Resp Auscultation: clear to auscultation bilaterally Cardio Rate: regular rate Rhythm: regular rhythm GI Palpation: soft and no guarding Skin General skin exam: no rashes or lesions noted Neuro General: patient alert, patient awake and tone normal Extrem General: no calf tenderness and no edema Psych Appearance: grossly normal Mental Status: mental status grossly normal Speech and Movement: speech and movement normal Mood: congruent mood Affect: normal affect Objective Last Vital Signs Temp 36.5 C 03/23/25 11:19 Pulse 69 03/23/25 11:19 Resp 16 03/23/25 11:19 BP 112/94 H 03/23/25 11:19 Pulse Ox 97 03/23/25 11:19 Laboratory Results - last 24 hr 03/23/25 06:18 WBC 6.15 RBC 4.02 L Hgb 13.7 Hct 38.5 L MCV 96 H MCH 34.1 H MCHC 35.6 RDW 12.5 Plt Count 198 MPV 10.2 Immature Gran % 0.3 Neutrophils % 63.0 Lymphocytes % 27.2 Monocytes % 5.4 Eosinophils % 3.4 Basophils % 0.7 Nucleated RBC % 0.0 Absolute Neutrophils 3.88 Absolute Lymphocytes 1.67 Absolute Monocytes 0.33 Absolute Eosinophils 0.21 Absolute Basophils 0.04 Sodium 137 Potassium 3.9 D Chloride 100 Carbon Dioxide 27.8 Anion Gap 9.2 BUN 2 L Creatinine 0.5 L Est GFR (CKD-EPI 2020) 125.03 Glucose 87 Calcium 9.5 Magnesium 2.1 PAWSS Have you Been Recently Intoxicated or Drunk Within the Last 30 days?: Yes Have you Ever Experienced Previous Episodes of Alcohol Withdrawal?: Yes Have you ever Experienced Withdrawal Seizures?: No Have you ever Experienced Delirium Tremens(DT)s?: No Have you ever undergone Alcohol Rehabilitation Treatment (i.e, inpt ot outpatient treatment programs)?: Yes Have you ever Experienced Blackouts?: Yes Have you ever Combined Alcohol with other Downers within the last 90 days?: No Have you ever Combined Alcohol with any other Substance of Abuse during the last 90 days?: No Positive Blood Alcohol level on Presentation? [PCS.BAL]: Yes Evidence of Increased Autonomic Activity (i.e. HR>120, tremor, sweating, agitation, nausea)?: Yes Result: 6 Time Spent with Patient Time Spent with Patient: 35-49 minutes Time was spent: preparing to see the patient(eg.review tests), obtaining and/or reviewing separately otained hiistory, ordering medications,tests, procedures, indepentently interpreting results and counseling the patient
--- NOTE | 2025-03-23 12:48 | IN_ITS ---
PT Notes Visit Reasons: Alcohol withdrawal Inpatient Physical Therapy Evaluation Date: 03/23/25 Referring Doctor: Annabelle Merritt NP PT Orders: PT CONSULT: Precautions: standard Patient Profile/Admitting Diagnosis: Paul is a 50-year-old male patient with a history of alcohol use disorder, nicotine dependence, chronic vertigo, pancreatitis, and hepatic steatosis who has been admitted to acute care for management of alcohol withdrawal symptoms, hypokalemia and pancreatitis. Social History/Home Situation: Paul lives alone in a private apartment with 2 flights of stairs to enter. 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 Reports that he's missed a lot of work lately due to medical issues, and is anxious to return to work as soon as possible. Equipment Owned/DME: none Subjective: Paul states that he feels very off balance. He has walked only minimally during his hospitalization, and states that he feels very unsteady. He requested PT consult to work on this. Objective: General Observation: Resting in bed at initiation of session. IV in LUE. Mental Status: A&Ox3. Pain: well managed ROM: Right Upper Extremity: WFL Left Upper Extremity: WFL Right Lower Extremity: WFL Left Lower Extremity: WFL Strength: Right Upper Extremity: Shoulder flexion 4/5. Biceps 4/5. Triceps 4/5. Left Upper Extremity: Shoulder flexion 4/5. Biceps 4/5. Triceps 4/5. Right Lower Extremity: Hip flexion 4/5. Quads 4/5. Ankle DF 4/5. Left Lower Extremity: Hip flexion 4/5. Quads 4/5. Ankle DF 4/5. Special Tests: Visual tracking is normal Heel to doe is markedly abnormal Alternating toe taps are poorly coordinated Thumb to digit tapping shows 75% accuracy Rhomberg shows increased sway, but able to maintain position without fall Browning Balance Test: 26/56 (indicates need for assistive device for safe ambulation) Bed Mobility/Transfers: sit-stand: CGA, heavy reliance on UE support, maintains wide TRACI stand-sit: CGA Gait: ambulates 200' with FWW, wide TRACI, shortened stride length and flat feet through all phases of gait. Slow juanjo and heavy reliance on FWW. Requires CGA throughout. Deferred on stair management due to balance impairments and deficits in coordination (see above) Balance: Static Sitting: good Dynamic Sitting: good Static Standing: fair Dynamic Standing: fair Special Tests: Mobility Limitations Standardized Measure [facility] AM-PAC 6 clicks Basic Mobility Inpatient Short Form: Raw Score: 19 Standardized Score: 45.44 CMS Score: 42% impairment Informed Consent/Education: Patient instructed in purpose of PT consult and p federica of care. Treatment: Initial evaluation (62541) Neuromuscular reeducation (26395): Instructed in early balance retraining activities as follows: Static standing with wide base of support, CGA, no upper extremity support, 60 seconds x 2 Static standing with wide base of support, min a, eyes closed Standing march with upper extremity support to FWW Assessment: Patient is a 50 year old male referred to physical therapy services in acute care setting, where he is being managed for alcohol withdrawal with hypokalemia and pancreatitis He presents with significant impairments in mobility and safety, with diminished balance and coordination. He is reliant on upper extremity support to FWW for safe ambulation at this time, and may require issuing FWW at time of discharge, depending on how he progresses. Will continue monitoring for discharge needs, with goal of transitioning away from assistive device. He currently demonstrates the following impairment level findings: 1. Decreased balance (Browning 26/56) 2. Decreased activity tolerance (able to ambulate only 200 feet with assistance) 3. Decreased coordination Impairments are contributing to the following functional limitations: 1. Unable to ambulate unassisted 2. High risk for falls based on Browning score Patient is assessed as Moderate 33585 complexity based on the following: History: As above. Complicating factors include ongoing alcohol dependence, with underlying vestibular dysfunction and balance impairments, with frequent ER visits and hospitalizations Examination: As above Presentation: Evolving due to acute medical issues Decision Making: Moderate complexity Goals: Goals X1 week 1. Supine-Sit up 2. Sit-Supine : Supervision 3. Sit-Stand : Supervision 4. Stand-Sit : Supervision 5. Bed-Chair : Supervision with LRD 6. Chair-Bed : Supervision with LRD 7. Gait : Able to ambulate 300' with supervision and LRD 8. Stairs : full flight with bilat rails, supervision Plan of Care/Treatment Plan: 1-2x/day, 7 days/week x 1 week. Plan of care has been reviewed with the LOAN OPERATIONS MANAGER providing the service under Physical Therapy direction. Initiate Physical Therapy intervention for strengthening, bed mobility, transfers, gait, stairs, balance training, use of assistive device. DISCHARGE RECOMMENDATIONS: Home with outpatient PT to address chronic mobility issues/balance. May require FWW at discharge; will continue monitoring his progress TREATMENT CODE/TIME: [id number] ([id number], [id number]) Brittany Dial, PT, DPT [facility] All Active Problems (Updated 03/23/25 @ 12:15 by Annabelle Merritt NP) On deep vein thrombosis (DVT) prophylaxis (Acute) Alcohol withdrawal (Acute) Alcoholism, chronic (Acute) Pancreatitis (Chronic) Gallbladder polyp (Acute) Postprandial RUQ pain (Acute) Gallbladder disease (Acute) Dizziness (Acute) Nicotine addiction (Acute) Avascular necrosis of bone of left hip (Acute) Hepatic steatosis (Acute) Impairment of balance (Acute) Chronic vertigo (Acute) Medical History (Updated 03/23/25 @ 12:15 by Annabelle Merritt NP) Alcoholic pancreatitis Anxiety Acid reflux 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 Osteonecrosis bone of left hip 04/23/24 CT evidence of a vascular necrosis of left hip Alcohol abuse Gallstone (~08/2024) Surgical History 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) Cyst of right upper eyelid
[2025-03-23] MEDS: Nicotine 21 MG/24 HR PATCH TD (13:11)
[2025-03-24 06:51] LABS: Abs Immature Grans 0.02 10^3/uL (0.0-0.06); HCT 41.3 % (40.0-50.0); HGB 14.5 g/dL (13.5-17.5); Immature Grans % 0.3 %; MCH 33.7 pg (27.0-33.0); MCHC 35.1 % (32.0-36.0); MCV 96 fL (80-95); MPV 10.2 fL (8.0-11.0); Platelet Count 179 10^3/uL (130-400); RBC 4.30 10^6/uL (4.36-5.78); RDW 12.1 % (11.8-14.1); RDW-SD 42.7 fL; WBC 6.58 10^3/uL (4.4-10.8)
--- NOTE | 2025-03-24 07:00 | RT.EKG_ITS ---
APPROVED REPORT Exam: Resting ECG Reason for Exam: 2 second pause-now bradycardia Patient Location: I HR:59 bpm ECG Measurements Heart Rate 59 AXIS AL 195 P 27 QRSd 84 QRS 36 QT 408 T 56 QTc 405 Conclusion Sinus rhythm...normal P axis, V-rate 50- 99 Normal Electrocardiogram
[2025-03-24 07:21] LABS: Anion Gap 9.0 mmol/L (3-11); BUN 5 mg/dL (7-18); CO2 27.0 mmol/L (21.0-32.0); Calcium 10.0 mg/dL (8.5-10.1); Chloride 101 mmol/L (98-107); Estimated GFR 118.34 (mL/min/1.73m2); Glucose 99 mg/dL (74-106); Magnesium 1.9 mg/dL (1.8-2.4); Potassium 3.9 mmol/L (3.5-5.1); Sodium 137 mmol/L (136-145)
[2025-03-24 07:48] VITALS: BP 124/80; PULSE 72; RESP 17; TEMP 36.5; O2SAT 95
[2025-03-24 08:35] LABS: Troponin I 4 ng/L (<or=76)
[2025-03-24] MEDS: Thiamine 100 MG TAB PO (08:58)
[2025-03-24] MEDS: Folic Acid 1 MG TAB PO (08:58)
[2025-03-24] MEDS: Pantoprazole 40 MG TABCR PO (08:58)
[2025-03-24] MEDS: Normal Saline Flush 10 ML SYR IVP (08:58)
--- NOTE | 2025-03-24 10:06 | DSE_ITS ---
Date of service: 03/24/25 Time of Service: 10:06 DS: Diagnosis Discharge Diagnosis (1) Alcohol withdrawal: Status: Acute (2) Acute hypokalemia: Status: Resolved (3) Nicotine addiction: Status: Acute Discharge Plan Disposition Patient Disposition: Home Condition: Stable Discharge Details Reason For Visit: Alcohol withdrawal Admit Date/Time: 03/22/25 09:32 Admit Provider: Florencio Archibald Attending Provider: Florencio Archibald Primary Care Provider: OWEN GARRISON Hospital Course Hospital Course: This is 50 year old male, well known to hospitalist services with history of alcohol abuse, presents to ED for reports of withdrawal symptoms. Workup in the ED showed negative findings on CT imaging of the head chest abdomen pelvis, healing/ subacute right sixth rib fracture noticed. Blood work showed no actionable findings except for hypokalemia at 2.8 and magnesium at 1.3, and ETOH level of 83.7 . The patient was admitted to the medical surgical floor for further symptom management and monitoring. He was monitored on CIWA on phenobarb protocol. symptoms well managed. he remained hemodynamically stable with no complications. he is eating and drinking and has been reambulated with PT. he is stable for discharge to home. he declined development coach in ED. he is hoping to return to work and note provided to return tomorrow at his request. discharge discussed with DR Archibald Montgomery Meds and New Rx's Prescriptions: New folic acid 1 mg Tablet 1 mg PO DAILY Qty: 30 0RF thiamine mononitrate (vit B1) [Vitamin B-1 (mononitrate)] 100 mg Tablet 100 mg PO DAILY Qty: 30 0RF Continued meclizine 25 mg tablet 25 mg PO TID PRN (Reason: dizziness) Qty: 30 0RF magnesium oxide 500 mg capsule 500 mg PO BID Qty: 30 0RF Discharge Instructions Instructions: Alcohol Use Disorder (DC) Stand Alone Forms: Nursing Discharge Form Referrals: OWEN GARRISON, SUPERVISOR DELIVERY DEPARTMENT [Primary Care Provider, Medicine] Referral Note: PCP office will call you with your follow up appointment Activity:: Activity as Tolerated Equipment/Supplies:: No Equipment Needed Diet:: As Tolerated Discharge Orders Discharge Orders: Discharge Order (Routine); Ordered 03/24/25 Ordered By: Annabelle Merritt Discharge Data Discharge Date/Time-TO BE ENTERED AT DEPARTURE: 03/24/25 10:42 DS: Summary Time Spent with Patient providing and/or coordinating discharge services: Less than 30 minutes Status at Discharge Functional status at discharge: independent ambulation Overall status at discharge: patient is progressing back to baseline Mental Status: mental status grossly normal Speech and Movement: speech and movement normal Mood: congruent mood Affect: normal affect Quality:SDOH Health Related Social Needs: Health related social needs house/econ circumstance Health related social needs details alcohol use disord er Health related social needs details: alcohol use disorder Exam Const General: cooperative and no acute distress HENMT Mouth: moist mucous membranes Eyes Conjunctivae: normal conjunctivae Sclera: normal sclerae Resp Auscultation: clear to auscultation bilaterally Cardio Rate: regular rate Rhythm: regular rhythm GI Palpation: soft and no guarding Skin General skin exam: no rashes or lesions noted Neuro General: patient alert, patient awake and tone normal Extrem General: no calf tenderness and no edema Psych Appearance: grossly normal Mental Status: mental status grossly normal Speech and Movement: speech and movement normal Mood: congruent mood Affect: normal affect DS: Data Vitals/I&O Vitals and I&O: Vital Signs Temperature 36.5 C 03/24/25 07:48 Temperature Source Temporal Artery Scan 03/24/25 07:48 Pulse 72 03/24/25 07:48 Pulse Rhythm Regular 03/22/25 13:18 Pulse 90 03/22/25 09:31 Respiratory Rate 17 03/24/25 07:48 Respiratory Effort Normal, Non-Labored 03/22/25 13:18 Respiratory Depth Normal 03/22/25 13:18 Respiratory Pattern Normal 03/22/25 13:18 Blood Pressure 124/80 03/24/25 07:48 Blood Pressure Mean 94 03/24/25 07:48 Blood Pressure Position Sitting 03/22/25 06:14 Pulse Oximetry 95 03/24/25 07:48 Oxygen Delivery Method Room Air 03/24/25 07:48 Oxygen Flow Rate 0 03/24/25 07:48 Pain Level 0 03/23/25 23:06 Comment PT asleep refused vitals. Nurse notified. 03/24/25 03:33 Intake & Output 03/23/25 03/23/25 03/24/25 11:59 23:59 11:59 Intake Total 850 / 1100 250 / 1100 354 / 354 Output Total 1050 / 1500 450 / 1500 900 / 900 Balance -200 / -400 -200 / -400 -546 / -546 Intake: Oral 850 / 1100 250 / 1100 354 / 354 Output: Urine 1050 / 1500 450 / 1500 900 / 900 Other: Urine Color Yellow Light Ama Yellow Urine Appearance Clear Clear Clear Urine Odor Strong Normal Comment Pt voids ind. in urinal. Data Completed and Pending Labs on day of discharge: Labs from last 24 hours 03/24/25 03/24/25 08:01 06:26 WBC 6.58 RBC 4.30 L Hgb 14.5 Hct 41.3 MCV 96 H MCH 33.7 H MCHC 35.1 RDW 12.1 Plt Count 179 MPV 10.2 Immature Gran % 0.3 Neutrophils % 52.6 Lymphocytes % 36.2 Monocytes % 6.1 Eosinophils % 4.3 Basophils % 0.5 Nucleated RBC % 0.0 Absolute Neutrophils 3.47 Absolute Lymphocytes 2.38 Absolute Monocytes 0.40 Absolute Eosinophils 0.28 Absolute Basophils 0.03 Sodium 137 Potassium 3.9 Chloride 101 Carbon Dioxide 27.0 Anion Gap 9.0 BUN 5 L Creatinine 0.6 L Est GFR (CKD-EPI 2020) 118.34 Glucose 99 Calcium 10.0 Magnesium 1.9 Troponin I 4 PFSH All Active Problems (Updated 03/23/25 @ 12:15 by Annabelle Merritt NP) On deep vein thrombosis (DVT) prophylaxis (Acute) Alcohol withdrawal (Acute) Alcoholism, chronic (Acute) Pancreatitis (Chronic) Gallbladder polyp (Acute) Postprandial RUQ pain (Acute) Gallbladder disease (Acute) Dizziness (Acute) Nicotine addiction (Acute) Avascular necrosis of bone of left hip (Acute) Hepatic steatosis (Acute) Impairment of balance (Acute) Chronic vertigo (Acute) Medical History (Updated 03/23/25 @ 12:15 by Annabelle Merritt NP) Alcoholic pancreatitis Anxiety Acid reflux 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 Osteonecrosis bone of left hip 04/23/24 CT evidence of a vascular necrosis of left hip Alcohol abuse Gallstone (~08/2024) Surgical History 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) Cyst of right upper eyelid Family History Maternal Grandfather Alcohol abuse Maternal Uncle Alcohol abuse Social History Smoking/Tobacco Use Status: Current every day Tobacco Type: cigarettes Years smoked: 25 Smoking risk assessment performed?: Yes Alcohol Intake: current Alcohol Intake frequency: 3 or more drinks per day Alcohol type: beer and hard liquor Details: last drink was 2 weeks ago Drug use: Never Substance use type: does not use Housing: apartment 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
--- NOTE | 2025-03-24 10:31 | PT.INTREAT ---
PT Notes Visit Reasons: Alcohol withdrawal Inpatient Physical Therapy Treatment Note [facility] Date:03/24/2025 PRECAUTIONS:Standard SUBJECTIVE: Pt reports he is going home this afternoon. He states he does not feel he needs a walker or a cane for ambulation OBJECTIVE: Pt presented supine in bed on his phone agreeable to participate in PT session? PAIN: denied VITALS: ?monitored via telemetry throughout Therapeutic Activities (21406): Direct one-on-one instruction in dynamic activities to improve functional performance. ? BED MOBILITY/TRANSFERS? Rolling L/R: Independent Supine-sit: Independent? Sit-supine: Independent ? Sit-stand: Independent? Stand-sit: Independent ? Bed-Chair: Independent ? Chair-bed: Independent Facilitated safe and correct performance of level surface ambulation covering a distance of 600 feet x 2 using without assistive device SBA. Patient ambulated first distance with nonskid socks only demonstrating wide base of support, impaired toe off and foot flat at weight acceptance. During second trial of 600 feet, patient ambulated with logging boots on demonstrating more narrow base of support and heel strike patient continues with early heel off due to impaired ankle range of motion related to hide of work boots. Patient did not report of any increased pain. Denied headache, chest pain, and lightheadedness throughout activity. Intermittent verbal cueing provided for base of support - Facilitated safe performance of flight of stairs with 1 railing reciprocal pattern standby assist ASSESSMENT: progression with ambulation without assistive device this session including ability to perform stairs with and without shoes on without loss of balance. Patient with no loss of balance with or without shoes however did demonstrate improved stability with boots on as noted by narrow base of support. PLAN: Continue plan of care unless discharged to home TREATMENT CODE/TIME: [id number] DISCHARGE RECOMMENDATION:Home with outpatient PT if patient agreeable
--- NOTE | 2025-03-24 10:48 | CMDISCH_ITS ---
Date of service: 03/24/25 Time of Service: 10:52 LACE Index Scoring Tool Questions: Length of Stay (in days): 2 Was the patient admitted via the E.D.?: Yes E.D. Visits: 5 Answers: Total Score: 9 Risk of Readmission: Low Risk Care Management Discharge Plan Reason for Hospitalization: ETOH withdrawal Discharge Plan: Paul will be discharged home today with no new services indicated. Prior to d/c CM contacted the Paper Baling Machine Operator to f/u in the outpatient setting; Paul was agreeable to this plan. It is recommended that Paul follow up with his community providers, [facility], and his plan of care. He will be transported via [employer], as coordinated by [facility]. Patient/Family Education Needs: Review of discharge instructions, activity, limitations and plan of care. Discuss ask me three. SDOH Health Related Social Needs: Health related social needs house/econ circumstance Health related social needs details alcohol use disord er Health related social needs details: alcohol use disorder
== END 2025-03-24 10:42 | disposition home or self-care (01) | DRG 896 ==
LOC: ER 09:47 → MS 10:29
PROVIDERS: Family Medicine; Nurse Practitioner Acute Care; Student in an Organized Health Care Education/Training Program; Admitting Provider Hospitalist; Emergency Provider Emergency Medicine; PCP Nurse Practitioner Family; Responsible Provider Nurse Practitioner Acute Care; Visit Provider Hospitalist
DX: F10.239 Alcohol dependence with withdrawal, unspecified (principal); K85.20 Alcohol induced acute pancreatitis without necrosis or infection; E87.3 Alkalosis; F17.210 Nicotine dependence, cigarettes, uncomplicated; E87.6 Hypokalemia; Z79.899 Other long term (current) drug therapy; F41.9 Anxiety disorder, unspecified; R42 Dizziness and giddiness; K76.0 Fatty (change of) liver, not elsewhere classified; S22.31XD Fracture of one rib, right side, subsequent encounter for fracture with routine healing; X58.XXXD Exposure to other specified factors, subsequent encounter; E83.42 Hypomagnesemia; Y90.8 Blood alcohol level of 240 mg/100 ml or more; K21.9 Gastro-esophageal reflux disease without esophagitis; D52.0 Dietary folate deficiency anemia; Z96.641 Presence of right artificial hip joint
CPT/HCPCS: 00123; 36415; 71275; 80048; 80053; 82805; 83690; 87637; 93005; 96361; 96365; 96366; 96375; 96376; 97112; 97162; 97530; 99285; J1650; 70450; 74174; 80320; 81003; 82140; 83735; 84443; 84484; 85025; 85610; 85730; 93010; 99223; 99233; 99238; J2405; J2470; J2560; J3411; J3475; J3480; J3490

== ENCOUNTER 2025-03-31 02:01 | Emergency (ER) | payer MEDICAID, SELFPAY ==
[2025-03-31] VITALS (24 sets, daily range): BP systolic 113–142; BP diastolic 58–93; PULSE 77–102; RESP 11–22; O2SAT 92–98
--- NOTE | 2025-03-31 02:00 | RT.EKG_ITS ---
APPROVED REPORT Exam: Resting ECG Reason for Exam: chest pain Patient Location: E HR:88 bpm ECG Measurements Heart Rate 88 AXIS NV 177 P 61 QRSd 89 QRS 57 QT 378 T 43 QTc 457 Conclusion Sinus rhythm...normal P axis, V-rate 60- 99 I have reviewed and interpreted ECG and agree with software generated interpretation.
[2025-03-31 02:21] LABS: BE (Venous) 3 mmol/L (-2-3); HCO3 (Venous) 25 mmol/L (23-28); O2 Sat (Venous) 92 %; TCO2 (Venous) 22 mmol/L (24-29); pCO2 (Venous) 30 mmHg (41-51); pO2 (Venous) 55 mmHg
[2025-03-31] MEDS: Mylanta Suspension 30 ML CUP PO (02:22)
[2025-03-31] MEDS: Ondansetron 4 MG/2 ML VIAL IVP (02:22)
[2025-03-31] MEDS: Lactated Ringers 1,000 ML 1000 ML IV (02:22)
[2025-03-31] MEDS: diazePAM 10 MG/2 ML SYR 5 MG IVP (02:23)
[2025-03-31 02:24] LABS: Abs Immature Grans 0.02 10^3/uL (0.0-0.06); HCT 35.9 % (40.0-50.0); HGB 13.3 g/dL (13.5-17.5); Immature Grans % 0.3 %; MCH 34.3 pg (27.0-33.0); MCHC 37.0 % (32.0-36.0); MCV 93 fL (80-95); MPV 8.9 fL (8.0-11.0); Platelet Count 131 10^3/uL (130-400); RBC 3.88 10^6/uL (4.36-5.78); RDW 11.9 % (11.8-14.1); RDW-SD 40.2 fL; WBC 5.72 10^3/uL (4.4-10.8)
--- NOTE | 2025-03-31 02:27 | ED.GENADUL_ITS ---
Discharge Plan Disposition Patient Disposition: Home Condition: Good Discharge Details Clinical Impression: Alcohol intoxication Primary Care Provider: OWEN GARRISON ED Provider: Alejandro Thomas Home Meds and New Rx's Prescriptions: No Action meclizine 25 mg tablet 25 mg PO TID PRN (Reason: dizziness) Qty: 30 0RF magnesium oxide 500 mg capsule 500 mg PO BID Qty: 30 0RF folic acid 1 mg Tablet 1 mg PO DAILY Qty: 30 0RF thiamine mononitrate (vit B1) [Vitamin B-1 (mononitrate)] 100 mg Tablet 100 mg PO DAILY Qty: 30 0RF Discharge Instructions Instructions: Alcohol Intoxication ED Additional Instructions: Please do your best to stop drinking alcohol. Use your outpatient resources that have been provided. If you notice any worsening of your symptoms, or any new symptoms such as vomiting, diarrhea, fever, chills, shortness of breath, chest pain, numbness, weakness, or fainting , please return immediately to the emergency department for reevaluation. Please follow up with your primary care provider as soon as possible for reassessment and reevaluation. As always, it was a pleasure participating in your medical care today. Stand Alone Forms: Work Release Referrals: OWEN GARRISON, [employer] [Primary Care Provider, Medicine] HPI General Date/Time Provider Initiated Documentation: 03/31/25 02:06 . HPI Narrative: This is a pleasant 50-year-old male with a past medical history of severe chronic alcoholism, pancreatitis, smoking use, hepatic steatosis, who presents today for withdrawals. Patient was recently admitted and then subsequently discharged on 04/14 for alcohol withdrawal. He was started on the phenobarb protocol, and had appropriate stabilization. Unfortunately he went back to drinking shortly thereafter. Last drink today was at 11 AM, he states that he has been drinking quite a fair bit since discharge. He contacted EMS for feeling symptoms of withdrawal. He was given 2.5 mg of droperidol, 500 cc bag of normal saline and brought to the ER for further assessment. He denies fever or chills. He denies chest pain or shortness of breath. He does admit to a few episodes of vomiting, all of which were without blood. No other complaints at this time. Related Data Home Medications ?Medication ?Instructions ?Recorded ?Confirmed magnesium oxide 500 mg capsule 500 mg PO BID #30 caps 01/29/25 03/31/25 meclizine 25 mg tablet 25 mg PO TID PRN dizziness # 30 tabs 01/29/25 03/31/25 folic acid 1 mg tablet 1 mg PO DAILY #30 tabs 03/2403/31/25 thiamine mononitrate (vit B1) 100 100 mg PO DAILY #30 tabs 03/24/25 03/31/25 mg tablet (Vitamin B-1 (mononitrate)) Previous Rx's ?Medication ?Instructions ?Recorded magnesium oxide 500 mg capsule 500 mg PO BID #30 caps 01/29/25 meclizine 25 mg tablet 25 mg PO TID PRN dizziness # 30 tabs 01/29/25 folic acid 1 mg tablet 1 mg PO DAILY #30 tabs 03/24 thiamine mononitrate (vit B1) 100 100 mg PO DAILY #30 tabs 03/24/25 mg tablet (Vitamin B-1 (mononitrate)) Allergies Allergy/AdvReac Type Severity Reaction Status Date / Time hydromorphone (From Dilaudid) AdvReac Intermediate Other (See Verified 03/31/25 03:13 Comment) General Stated Complaint: ETOHWithdr SARAH: 3 Exam Narrative Exam Narrative: 1.Const: Well-nourished, Well-developed, appearing stated age 2.Eyes: PERRL, no conjunctival injection, and symmetrical lids. 3.ENT: Atraumatic external nose and ears. Moist MM. Neck: Symmetric, trachea midline, No thyromegaly. 4.CVS: +S1/S2, Peripheral pulses 2+ and equal in all extremities. Brisk capillary refill in all extremities. 5.RESP: Unlabored respiratory effort. Clear to auscultation bilaterally. No wheezes rales or rhonchi 6.GI: Soft, Nontender/Nondistended, No hepatosplenomegaly. No guarding or rebound. 7.MSK: Normocephalic/Atraumatic, Extremities w/o deformity or ttp No cyanosis or clubbing, Normal movement of all extremities 8.Skin: Warm, Dry. No rashes or lesions. 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 Sensation grossly intact, no focal neurologic deficits. Minimal shakiness 10.Psych: (AAO) x3. Appropriate mood and affect Course Vital Signs Vital signs: Vital Signs Pulse 93 H 03/31/25 02:02 Respiratory Rate 22 03/31/25 02:02 Blood Pressure 142/78 H 03/31/25 02:02 Pulse Oximetry 98 03/31/25 02:02 Pulse 93 H 03/31/25 02:02 Respiratory Rate 22 03/31/25 02:02 Respiratory Pattern Normal 03/31/25 02:07 Blood Pressure 142/78 H 03/31/25 02:02 Pulse Oximetry 98 03/31/25 02:02 Oxygen Delivery Method Room Air 03/31/25 02:02 Oxygen Flow Rate 0 03/31/25 02:02 Lab/Test Results Lab/Test Results: Laboratory Tests Range/Units 03/31/25 02:10 WBC (4.4-10.8) 10^3/uL 5.72 RBC (4.36-5.78) 10^6/uL 3.88 L Hgb (13.5-17.5) g/dL 13.3 L Hct (40.0-50.0) % 35.9 L MCV (80-95) fL 93 MCH (27.0-33.0) pg 34.3 H MCHC (32.0-36.0) % 37.0 H RDW (11.8-14.1) % 11.9 Plt Count (130-400) 10^3/uL 131 MPV (8.0-11.0) fL 8.9 Immature Gran % % 0.3 Neutrophils % % 54.8 Lymphocytes % % 27.1 Monocytes % % 15.9 Eosinophils % % 1.0 Basophils % % 0.9 Nucleated RBC % (0.0-0.3) % 0.0 Absolute Neutrophils (1.2-6.7) 10^3/uL 3.13 Absolute Lymphocytes (1.2-3.4) 10^3/uL 1.55 Absolute Monocytes (0.1-0.8) 10^3/uL 0.91 H Absolute Eosinophils (0.0-0.7) 10^3/uL 0.06 Absolute Basophils (0.0-0.2) 10^3/uL 0.05 VBG pH (7.31-7.41) 7.53 H VBG pCO2 (41-51) mmHg 30 L VBG pO2 mmHg 55 VBG HCO3 (23-28) mmol/L 25 VBG Total CO2 (24-29) mmol/L 22 L VBG O2 Saturation % 92 VBG Base Excess (-2-3) mmol/L 3 Medical Decision Making This is a pleasant 50-year-old male with a past medical history of severe chronic alcoholism, pancreatitis, smoking use, hepatic steatosis, who presents today for withdrawals. Patient was recently admitted and then subsequently discharged on 04/14 for alcohol withdrawal. He was started on the phenobarb protocol, and had appropriate stabilization. Unfortunately he went back to drinking shortly thereafter. Last drink today was at 11 AM, he states that he has been drinking quite a fair bit since discharge. He contacted EMS for feeling symptoms of withdrawal. He was given 2.5 mg of droperidol, 500 cc bag of normal saline and brought to the ER for further assessment. He denies fever or chills. He denies chest pain or shortness of breath. He does admit to a few episodes of vomiting, all of which were without blood. No other complaints at this time. Exam demonstrates stable male, pulse 93, mild shakiness and tremulousness, no severe abnormality otherwise. We will give 5 Valium, rehydrate check for electrolyte abnormalities check his alcohol level, monitor closely and reassess. 6:27 AM Throughout the night the patient was observed, on reassessment he is feeling much better. He got up, ambulated well, and has a 0 CIWA score. Patient's laboratory workup remained stable, mild alkalosis, potassium was slightly low at 3.3 and he was given 40 mEq p.o. Anion gap was minimally elevated and he was rehydrated with a liter of IV fluids. Electrolytes otherwise stable. Alcohol level was 5.4 on arrival, and he is now feeling much better with 0 alcohol level and no signs of significant withdrawal. I do not see a need for continued Librium as he shows a negative CIWA score and no signs of active withdrawal. Patient stable for discharge. I have extensively reviewed the treatment plan and discharge instructions with the patient. I have addressed all patient concerns at this time. The patient was made aware of what symptoms to monitor for that would warrant a return to the emergency department. Discussed the plan with the patient, they demonstrate verbal understanding and agreement with our assessment and plan at this time. The documentation in this chart was dictated using [employer] dictation software. Please excuse any dictation errors. Quality:SDOH Health Related Social Needs: Health related social needs house/econ circumstance Health related social needs details alcohol use disord er PFSH All Active Problems (Updated 03/31/25 @ 06:29 by Alejandro Thomas DO) Alcohol intoxication (Acute) Alcohol withdrawal (Acute) Alcoholism, chronic (Acute) Pancreatitis (Chronic) Gallbladder polyp (Acute) Postprandial RUQ pain (Acute) Gallbladder disease (Acute) Dizziness (Acute) Nicotine addiction (Acute) Avascular necrosis of bone of left hip (Acute) Hepatic steatosis (Acute) Impairment of balance (Acute) Chronic vertigo (Acute) Medical History (Updated 03/31/25 @ 06:29 by Alejandro Thomas DO) Alcoholic pancreatitis Anxiety Acid reflux 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 Osteonecrosis bone of left hip 04/23/24 CT evidence of a vascular necrosis of left hip Alcohol abuse Gallstone (~08/2024) Surgical History 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) Cyst of right upper eyelid Family History Maternal Grandfather Alcohol abuse Maternal Uncle Alcohol abuse Social History Smoking/Tobacco Use Status: Current every day Tobacco Type: cigarettes Years smoked: 25 Smoking risk assessment performed?: Yes Alcohol Intake: current Alcohol Intake frequency: 3 or more drinks per day Alcohol type: beer and hard liquor Details: last drink was 2 weeks ago Drug use: Rarely Substance use type: does not use Housing: apartment 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
[2025-03-31 02:36] LABS: Ammonia 23 umol/L (11-32)
[2025-03-31 02:39] LABS: ALT 44 U/L (16-63); AST 39 U/L (15-37); Albumin 3.7 g/dL (3.4-5.0); Alkaline Phosphatase 97 U/L (46-116); Anion Gap 13.3 mmol/L (3-11); BUN 9 mg/dL (7-18); Bilirubin, Total 0.5 mg/dL (0.2-1.0); CO2 25.7 mmol/L (21.0-32.0); Calcium 9.4 mg/dL (8.5-10.1); Chloride 98 mmol/L (98-107); Estimated GFR 112.95 (mL/min/1.73m2); Glucose 153 mg/dL (74-106); Lipase 62 U/L (<78); Potassium 3.3 mmol/L (3.5-5.1); Sodium 137 mmol/L (136-145); Total Protein 7.3 g/dL (6.4-8.2)
[2025-03-31] MEDS: Potassium Chloride 20 MEQ TABCR 40 MEQ PO (02:55)
== END 2025-03-31 06:31 | disposition home or self-care (01) ==
PROVIDERS: Emergency Provider Student in an Organized Health Care Education/Training Program; PCP Nurse Practitioner Family
DX: F10.20 Alcohol dependence, uncomplicated; Z87.19 Personal history of other diseases of the digestive system; Z59.89 Other problems related to housing and economic circumstances; F10.929 Alcohol use, unspecified with intoxication, unspecified
CPT/HCPCS: 80053; 82805; 83690; 93005; 96361; 96374; 96375; 99284; 80320; 82140; 85025; 93010; J2405; J3360

== ENCOUNTER 2025-04-13 13:15 | Emergency (ER) | payer MEDICAID, SELFPAY ==
[2025-04-13] VITALS (21 sets, daily range): BP systolic 107–163; BP diastolic 61–94; PULSE 79–99; RESP 12–22; TEMP 36.9; O2SAT 92–95
--- NOTE | 2025-04-13 13:15 | RT.EKG_ITS ---
APPROVED REPORT Exam: Resting ECG Reason for Exam: chest pain Patient Location: E HR:89 bpm ECG Measurements Heart Rate 89 AXIS AL 190 P 17 QRSd 94 QRS 30 QT 344 T 55 QTc 420 Conclusion Sinus rhythm...normal P axis, V-rate 60- 99
--- NOTE | 2025-04-13 13:39 | W.ED.GENAD ---
Discharge Plan Discharge Details Chief Complaint: Chest Pain Primary Care Provider: OWEN GARRISON ED Provider: Valery Padilla Home Meds and New Rx's Prescriptions: No Action meclizine 25 mg tablet 25 mg PO TID PRN (Reason: dizziness) Qty: 30 0RF magnesium oxide 500 mg capsule 500 mg PO BID Qty: 30 0RF folic acid 1 mg Tablet 1 mg PO DAILY Qty: 30 0RF thiamine mononitrate (vit B1) [Vitamin B-1 (mononitrate)] 100 mg Tablet 100 mg PO DAILY Qty: 30 0RF HPI General Date/Time Provider Initiated Documentation: 04/13/25 13:16. HPI Narrative: Paul is a 50-year-old male who presents to the emergency department today for evaluation of fatigue and weakness. He reports progressive generalized weakness over 2 weeks. Fell at 0200 hours due to sudden loss of strength, no preceding symptoms, dizziness, or head injury/extremity/back or neck injury. He reports he has had intermittent pinching sensation in the left side of his neck that occurs when he is angry or excited about something, this last approximately 5 minutes and resolved without intervention. Denies fever/chills, congestion, headache, dizziness, difficulty swallowing, sore throat, chest pain (despite triage note endorsing CP), cough, nausea/vomiting, change in PO intake, change in baseline LUQ abdominal discomfort, change in bowel/bladder function. He does admit to EtOH use today, says that he drank 2 beers and smoked a couple of cigarettes to calm himself down, does appear intoxicated. No recent known ill contacts. PMH significant for ETOH abuse, pancreatitis, hypokalemia, chronic vertigo, gallbladder disease. Denies history of MS, hypertension, hyperlipidemia, diabetes, heart disease, known family history of early cardiac disease or connective tissue disorders. Related Data Home Medications ?Medication ?Instructions ?Recorded ?Confirmed magnesium oxide 500 mg capsule 500 mg PO BID #30 caps 01/29/25 03/31/25 meclizine 25 mg tablet 25 mg PO TID PRN dizziness #30 tabs 01/29/25 03/31/25 folic acid 1 mg tablet 1 mg PO DAILY #30 tabs 03/24/25 03/31/25 thiamine mononitrate (vit B1) 100 100 mg PO DAILY #30 tabs 03/24/25 03/31/25 mg tablet (Vitamin B-1 (mononitrate)) Previous Rx's ?Medication ?Instructions ?Recorded magnesium oxide 500 mg capsule 500 mg PO BID #30 caps 01/29/25 meclizine 25 mg tablet 25 mg PO TID PRN dizziness #30 tabs 01/29/25 folic acid 1 mg tablet 1 mg PO DAILY #30 tabs 03/24/25 thiamine mononitrate (vit B1) 100 100 mg PO DAILY #30 tabs 03/24/25 mg tablet (Vitamin B-1 (mononitrate)) Allergies Allergy/AdvReac Type Severity Reaction Status Date / Time hydromorphone (From Dilaudid) AdvReac Intermediate Other (See Verified 04/13/25 13:22 Comment) General Stated Complaint: Chest Pain SARAH: 3 Exam Const General: cooperative, healthy appearing, no acute distress and intoxicated appearing Nutritional Appearance: average body habitus and well nourished Orientation: alert [facility] Head: normal to inspection General nose exam: external nose normal Face and sinus: normal facial exam Mouth: oral mucosae normal, lip normal, tongue normal, oropharynx normal and moist mucous membranes Throat: posterior oropharynx normal, tonsils normal and uvula midline Neck Neck: normal visual inspection, full ROM and no lymphadenopathy Chest Chest: normal inspection of the chest and normal palpation of entire chest wall Resp Effort & Inspection: normal respiratory effort and able to speak in complete sentences Auscultation: clear to auscultation bilaterally Cardio Jugular venous pressure: no JVD Rate: regular rate Rhythm: regular rhythm Pulses: radial pulses present GI Inspection: normal to inspection, non-distended and no obesity Palpation: soft, not firm, no guarding, rigid and tender (LUQ tenderness ) Skin General skin exam: no rashes or lesions noted Extrem General: normal to inspection and full ROM Course Vital Signs Vital signs: Vital Signs Temperature 36.9 C 04/13/25 13:17 Pulse 96 H 04/13/25 13:17 Respiratory Rate 04/13/25 13:17 Blood Pressure 163/94 H 04/13/25 13:17 Pulse Oximetry 95 04/13/25 13:17 Temperature 36.9 C 04/13/25 13:17 Pulse 96 H 04/13/25 13:17 Respiratory Rate 20 04/13/25 13:17 Blood Pressure 163/94 H 04/13/25 13:17 Pulse Oximetry 95 04/13/25 13:17 Oxygen Delivery Method Room Air 04/13/25 13:17 Oxygen Flow Rate 0 04/13/25 13:17 Medical Decision Making 50-year-old male with pancreatitis, alcohol abuse, and gallbladder disease presenting with progressive weakness over 2 weeks, culminating in a fall at 0200 hours today. Differential Diagnosis includes but is not limited to: ACS, cardiac arrhythmia, occult infection such as UTI or pneumonia, viral illness such as COVID-19 or flu, electrolyte imbalance, dehydration, anxiety, GERD, gastritis, pancreatitis. Left upper quadrant abdominal tenderness unchanged from baseline per patient. I independently interpreted the following tests: EKG reassuring, normal sinus rhythm rate 89, normal intervals, no changes consistent with acute ischemia. EtOH very elevated at 403.5. Troponins flat 5 and 5. CBC, CMP, PT/INR, PTT, lipase, magnesium all unremarkable. COVID and flu ordered, pt declines. ED course: While in the ED, Paul received famotidine, myl[place], thiamine, and IV fluids. He is able to sip gingerale without difficulty. Overall workup reassuring. Paul reports that the neck discomfort and shallow breathing is associated with anxiety, admits to many life stressors, including concern about losing job. He is agreeable to meeting with [facility]. End of report given to Dr. Macdonald, ED physician; patient to be observed until clinically sober. Patient consented to the use of SOPHIE Quality:SDOH Health Related Social Needs: Health related social needs house/econ circumstance Health related social needs details alcohol use disorder PFSH All Active Problems (Updated 03/31/25 @ 06:29 by Alejandro Thomas DO) Alcohol intoxication (Acute) Alcohol withdrawal (Acute) Alcoholism, chronic (Acute) Pancreatitis (Chronic) Gallbladder polyp (Acute) Postprandial RUQ pain (Acute) Gallbladder disease (Acute) Dizziness (Acute) Nicotine addiction (Acute) Avascular necrosis of bone of left hip (Acute) Hepatic steatosis (Acute) Impairment of balance (Acute) Chronic vertigo (Acute) Medical History (Updated 03/31/25 @ 06:29 by Alejandro Thomas DO) Alcoholic pancreatitis Anxiety Acid reflux 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 Osteonecrosis bone of left hip 04/23/24 CT evidence of a vascular necrosis of left hip Alcohol abuse Gallstone (~08/2024) Surgical History 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) Cyst of right upper eyelid Family History Maternal Grandfather Alcohol abuse Maternal Uncle Alcohol abuse Social History Smoking/Tobacco Use Status: Current every day Tobacco Type: cigarettes Years smoked: 25 Smoking risk assessment performed?: Yes Alcohol Intake: current Alcohol Intake frequency: 3 or more drinks per day Alcohol type: beer and hard liquor Details: last drink was 2 weeks ago Drug use: Rarely Substance use type: does not use Housing: apartment 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 Do you feel safe at home: Yes Do you feel safe in your relationship?: Yes Additional Social history: stays at the assisted in [facility] BLANCO Guerra 09/04/24 PAW Have you Been Recently Intoxicated or Drunk Within the Last 30 days?: Yes Have you Ever Experienced Previous Episodes of Alcohol Withdrawal?: No Have you ever Experienced Withdrawal Seizures?: Yes Have you ever Experienced Delirium Tremens(DT)s?: Yes Have you ever undergone Alcohol Rehabilitation Treatment (i.e, inpt ot outpatient treatment programs)?: Yes Have you ever Experienced Blackouts?: Yes Have you ever Combined Alcohol with other Downers within the last 90 days?: Yes Have you ever Combined Alcohol with any other Substance of Abuse during the last 90 days?: Yes Positive Blood Alcohol level on Presentation? [PCS.BAL]: Yes Evidence of Increased Autonomic Activity (i.e. HR>120, tremor, sweating, agitation, nausea)?: Yes Result: 9
[2025-04-13 13:49] LABS: Abs Immature Grans 0.02 10^3/uL (0.0-0.06); HCT 36.6 % (40.0-50.0); HGB 12.9 g/dL (13.5-17.5); Immature Grans % 0.2 %; MCH 33.2 pg (27.0-33.0); MCHC 35.2 % (32.0-36.0); MCV 94 fL (80-95); MPV 8.8 fL (8.0-11.0); Platelet Count 190 10^3/uL (130-400); RBC 3.88 10^6/uL (4.36-5.78); RDW 12.4 % (11.8-14.1); RDW-SD 42.8 fL; WBC 8.11 10^3/uL (4.4-10.8)
[2025-04-13] MEDS: Famotidine 20 MG/2 ML VIAL IVP (13:52)
[2025-04-13 14:02] LABS: INR 1.0 (0.9-1.1); PTT Activated 27.9 sec (20.6-30.2); Prothrombin Time 9.9 sec (9.1-11.1)
[2025-04-13 14:05] LABS: Lab Add On Test DONE
[2025-04-13 14:12] LABS: ALT 41 U/L (16-63); AST 43 U/L (15-37); Albumin 4.0 g/dL (3.4-5.0); Alkaline Phosphatase 85 U/L (46-116); Anion Gap 13.6 mmol/L (3-11); BUN 6 mg/dL (7-18); Bilirubin, Total 0.2 mg/dL (0.2-1.0); CO2 27.4 mmol/L (21.0-32.0); Calcium 9.0 mg/dL (8.5-10.1); Chloride 98 mmol/L (98-107); Estimated GFR 112.95 (mL/min/1.73m2); Glucose 154 mg/dL (74-106); Lipase 62 U/L (<78); Magnesium 1.9 mg/dL (1.8-2.4); Potassium 3.5 mmol/L (3.5-5.1); Sodium 139 mmol/L (136-145); Total Protein 8.1 g/dL (6.4-8.2); Troponin I 5 ng/L (<or=76)
[2025-04-13 14:28] LABS: TSH (W/Ref FT4) 0.70 uIU/mL (0.36-3.74)
[2025-04-13] MEDS: Thiamine 100 MG TAB PO (15:10)
[2025-04-13] MEDS: Lactated Ringers 1,000 ML 1000 ML IV (15:10)
[2025-04-13] MEDS: Mylanta Suspension 30 ML CUP PO (15:10)
[2025-04-13 15:20] LABS: Troponin I 5 ng/L (<or=76)
[2025-04-13 15:23] LABS: Glucose Negative (Negative)
== END 2025-04-13 16:48 | disposition home or self-care (01) ==
PROVIDERS: Nurse Practitioner Family; Emergency Provider General Practice; PCP Nurse Practitioner Family
DX: R07.9 Chest pain, unspecified; F10.929 Alcohol use, unspecified with intoxication, unspecified; I10 Essential (primary) hypertension; Z59.89 Other problems related to housing and economic circumstances
CPT/HCPCS: 36415; 80053; 83690; 93005; 96361; 96374; 99284; 80320; 81003; 83735; 84443; 84484; 85025; 85610; 85730; 93010; 99283

== ENCOUNTER 2025-04-18 10:05 | Inpatient (IN) | payer MEDICAID, SELFPAY ==
[2025-04-18] VITALS (32 sets, daily range): BP systolic 76–141; BP diastolic 41–89; PULSE 61–95; RESP 12–23; TEMP 36.6–37.7; O2SAT 91–98
--- NOTE | 2025-04-18 10:00 | RT.EKG_ITS ---
APPROVED REPORT Exam: Resting ECG Reason for Exam: abdominal pain Patient Location: E HR:90 bpm ECG Measurements Heart Rate 90 AXIS ME 174 P 69 QRSd 91 QRS 55 QT 364 T 60 QTc 447 Conclusion Sinus rhythm...normal P axis, V-rate 60- 99 Physician: no stemi
--- NOTE | 2025-04-18 10:15 | DI.RAD_ITS ---
Exam(s) XR PORTABLE CHEST AP EXAM: XR PORTABLE CHEST AP CLINICAL HISTORY: left sided chest pain. TECHNIQUE: 2D digital imaging was performed. COMPARISON: CR,XR XR CHEST 2V PA LATERAL from 03/09/2025 FINDINGS: Single AP portable view. Heart size is upper normal. The mediastinum is not widened. Lungs are clear. No infiltrates nor obvious pleural effusions. IMPRESSION: No acute pulmonary findings on this single AP portable view of the chest. DATA REPOSITORY: RADIATION DOSE DELIVERED:
--- NOTE | 2025-04-18 10:17 | W.ED.GENAD ---
Discharge Plan Disposition Patient Disposition: Admit to [facility] Condition: Stable Discharge Details Clinical Impression: Pancreatitis, Chronic alcoholism Primary Care Provider: OWEN GARRISON ED Provider: Alejandro Thomas Home Meds and New Rx's Prescriptions: No Action meclizine 25 mg tablet 25 mg PO TID PRN (Reason: dizziness) Qty: 30 0RF magnesium oxide 500 mg capsule 500 mg PO BID Qty: 30 0RF folic acid 1 mg Tablet 1 mg PO DAILY Qty: 30 0RF thiamine mononitrate (vit B1) [Vitamin B-1 (mononitrate)] 100 mg Tablet 100 mg PO DAILY Qty: 30 0RF calcium PO BID Rx Instructions: OTC, unknown strength. Takes BID potassium PO BID Rx Instructions: OTC, unknown strength. Reports he takes BID HPI General Date/Time Provider Initiated Documentation: 04/18/25 10:14. HPI Narrative: This is a pleasant 50-year-old male with a past medical history of severe chronic alcoholism, pancreatitis, smoking use, hepatic steatosis, who presents today for left-sided chest pain. The patient has had a few episodes of chest pain similar to this over the last few months. Cardiac workups and CT imaging has been negative. No hematemesis or bleeding. No diarrhea. He describes the pain as an achy burning sharp sensation in his left upper chest. It is notably worse when he lies down flat, and not worsened when he gets up or exerts himself. He has been drinking alcohol regularly still. He denies any fever or chills. No cough. No numbness or tingling. He has not been taking any antiacids. He has been prescribed these in the past but it is unclear if he has ever utilized these prescriptions. Patient has no other complaints at this time. He states that the chest pain he is having now is similar to the ones he has had in the past few months. Related Data Home Medications ?Medication ?Instructions ?Recorded ?Confirmed magnesium oxide 500 mg capsule 500 mg PO BID #30 caps 01/29/25 04/18/25 Held on 04/18/25. Instructions: Pt Stopped/Never Started meclizine 25 mg tablet 25 mg PO TID PRN dizziness #30 tabs 01/29/25 04/18/25 Held on 04/18/25. Instructions: Pt Stopped/Never Started folic acid 1 mg tablet 1 mg PO DAILY #30 tabs 03/24/25 04/18/25 Held on 04/18/25. Instructions: Pt Stopped/Never Started thiamine mononitrate (vit B1) 100 100 mg PO DAILY #30 tabs 03/24/25 04/18/25 mg tablet (Vitamin B-1 (mononitrate)) Held on 04/18/25. Instructions: Pt Stopped/Never Started calcium PO BID 04/18/25 potassium PO BID 04/18/25 Previous Rx's ?Medication ?Instructions ?Recorded magnesium oxide 500 mg capsule 500 mg PO BID #30 caps 01/29/25 Held on 04/18/25. Instructions: Pt Stopped/Never Started meclizine 25 mg tablet 25 mg PO TID PRN dizziness #30 tabs 01/29/25 Held on 04/18/25. Instructions: Pt Stopped/Never Started folic acid 1 mg tablet 1 mg PO DAILY #30 tabs 03/24/25 Held on 04/18/25. Instructions: Pt Stopped/Never Started thiamine mononitrate (vit B1) 100 100 mg PO DAILY #30 tabs 03/24/25 mg tablet (Vitamin B-1 (mononitrate)) Held on 04/18/25. Instructions: Pt Stopped/Never Started Allergies Allergy/AdvReac Type Severity Reaction Status Date / Time hydromorphone (From Dilaudid) AdvReac Intermediate Other (See Verified 04/18/25 10:18 Comment) General Stated Complaint: Abd Prob SARAH: 3 Exam Narrative Exam Narrative: 1.Const: Well-nourished, Well-developed, appearing stated age 2.Eyes: PERRL, no conjunctival injection, and symmetrical lids. 3.ENT: Atraumatic external nose and ears. Moist MM. Neck: Symmetric, trachea midline, No thyromegaly. 4.CVS: +S1/S2, Peripheral pulses 2+ and equal in all extremities. Brisk capillary refill in all extremities. 5.RESP: Unlabored respiratory effort. Clear to auscultation bilaterally. No wheezes rales or rhonchi. Mild achiness on palpation of the left mid chest. 6.GI: Soft, Nontender/Nondistended, No hepatosplenomegaly. No guarding or rebound. No pain at McBurney's point, negative Monsivais sign. 7.MSK: Normocephalic/Atraumatic, Extremities w/o deformity or ttp No cyanosis or clubbing, Normal movement of all extremities 8.Skin: Warm, Dry. No rashes or lesions. 9.Neuro: sample tester II-XII grossly intact. Sensation grossly intact, no focal neurologic deficits. 10.Psych: (AAO) x3. Appropriate mood and affect Course Vital Signs Vital signs: Vital Signs Temperature 36.6 C 04/18/25 10:06 Pulse 92 H 04/18/25 10:06 Respiratory Rate 20 04/18/25 10:06 Blood Pressure 124/79 04/18/25 10:06 Pulse Oximetry 96 04/18/25 10:06 Temperature 36.6 C 04/18/25 10:06 Temperature Source Oral 04/18/25 10:06 Pulse 92 H 04/18/25 10:06 Respiratory Rate 20 04/18/25 10:06 Blood Pressure 124/79 04/18/25 10:06 Blood Pressure Position Sitting 04/18/25 10:06 Pulse Oximetry 96 04/18/25 10:06 Oxygen Delivery Method Room Air 04/18/25 10:06 Oxygen Flow Rate 0 04/18/25 10:06 Pain Level 10 04/18/25 10:06 Medical Decision Making This is a pleasant 50-year-old male with a past medical history of severe chronic alcoholism, pancreatitis, smoking use, hepatic steatosis, who presents today for left-sided chest pain. The patient has had a few episodes of chest pain similar to this over the last few months. Cardiac workups and CT imaging has been negative. No hematemesis or bleeding. No diarrhea. He describes the pain as an achy burning sharp sensation in his left upper chest. It is notably worse when he lies down flat, and not worsened when he gets up or exerts himself. He has been drinking alcohol regularly still. He denies any fever or chills. No cough. No numbness or tingling. He has not been taking any antiacids. He has been prescribed these in the past but it is unclear if he has ever utilized these prescriptions. Patient has no other complaints at this time. He states that the chest pain he is having now is similar to the ones he has had in the past few months. Physical exam demonstrates a well-appearing male, vital signs stable, no acute distress. Mild reproducible chest wall achiness on the left anterior chest. No rash, no epigastric pain. Symptoms appear most consistent with GERD, or esophagitis or reflux, less likely is pancreatitis, less likely is cardiac etiology, pneumonia or other abnormality. Will get a chest x-ray, evaluate for cardiac etiology, give Protonix, famotidine GI cocktail and Carafate. Will monitor closely and reassess. No symptoms to suggest dissection or PE. No hypoxemia or tachycardia. Of note patient also does admit to vomiting at home prior to arrival. 12:06 PM Laboratory workup has returned, after GI cocktail, Protonix, famotidine and Carafate patient had no improvement of his pain or symptomatology. He was given fentanyl to help with the pain this did improve it only mildly. He still feels quite nauseous. Laboratory workup shows no white count, or bandemia. Electrolytes are relatively stable aside from mild hyponatremia and hypochloremia. Anion gap is 23, likely reflective of his chronic alcohol use and dehydration. Patient has been given a liter of IV fluids, heart rate right now stable in the 80s. Transaminases have mildly increased compared to baseline with an AST of 125 and ALT of 93. Troponins are normal. Lipase is elevated at 412 which is where he has been for previous episodes of his pancreatitis. His last few visits his lipase was normal. I do not feel that outpatient treatment would be ideal as he is still having notable nausea and had vomiting this morning when taking p.o. He would obviously need to stop drinking to be able to improve his pancreatitis, and if he stops drinking he will likely going to withdrawals which she often has. I do feel that continued hydration, antiemetics and admission are indicated for his pancreatitis at this time. With no focal pain that is reproducible on the abdominal exam I do not feel that CT scan is indicated at this time. We will add a banana bag for continued fluid hydration. Still pending alcohol level to return at this time. We will reach out to the hospitalist for admission. I do not see any evidence of active withdrawal at this time, given that his last drink was this morning which subsequently led to vomiting. Discussed the case with Dr. Zelaya, he agrees with the assessment and plan. I have extensively reviewed the treatment plan with the patient. I have addressed all patient concerns at this time. I have also discussed the plan with the admitting physician and they agree with the current assessment and plan and have agreed to assume responsibility for the patient. All parties demonstrate verbal understanding and agreement with our assessment and plan at this time. The documentation in this chart was dictated using [employer] dictation software. Please excuse any dictation errors. Quality:SDOH Health Related Social Needs: Health related social needs house/econ circumstance Health related social needs details alcohol use disorder PFSH All Active Problems (Updated 04/18/25 @ 12:18 by Alejandro Thomas DO) Chronic alcoholism (Acute) Pancreatitis (Chronic) Alcohol intoxication (Acute) Alcohol withdrawal (Acute) Alcoholism, chronic (Acute) Pancreatitis (Chronic) Gallbladder polyp (Acute) Postprandial RUQ pain (Acute) Gallbladder disease (Acute) Dizziness (Acute) Nicotine addiction (Acute) Avascular necrosis of bone of left hip (Acute) Hepatic steatosis (Acute) Impairment of balance (Acute) Chronic vertigo (Acute) Medical History (Updated 04/18/25 @ 12:18 by Alejandro Thomas DO) Alcoholic pancreatitis Anxiety Acid reflux 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 Osteonecrosis bone of left hip 04/23/24 CT evidence of a vascular necrosis of left hip Alcohol abuse Gallstone (~08/2024) Surgical History 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) Cyst of right upper eyelid Family History Maternal Grandfather Alcohol abuse Maternal Uncle Alcohol abuse Social History Smoking/Tobacco Use Status: Current every day Tobacco Type: cigarettes Years smoked: 25 Smoking risk assessment performed?: Yes Alcohol Intake: current Alcohol Intake frequency: 3 or more drinks per day Alcohol type: beer and hard liquor Details: last drink was 2 weeks ago Drug use: Rarely Substance use type: does not use Housing: apartment 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
[2025-04-18 10:32] LABS: Abs Immature Grans 0.04 10^3/uL (0.0-0.06); HCT 40.6 % (40.0-50.0); HGB 14.1 g/dL (13.5-17.5); Immature Grans % 0.5 %; MCH 33.0 pg (27.0-33.0); MCHC 34.7 % (32.0-36.0); MCV 95 fL (80-95); MPV 9.3 fL (8.0-11.0); Platelet Count 114 10^3/uL (130-400); RBC 4.27 10^6/uL (4.36-5.78); RDW 12.4 % (11.8-14.1); RDW-SD 43.0 fL; WBC 8.04 10^3/uL (4.4-10.8)
[2025-04-18] MEDS: Pantoprazole 40 MG VIAL IVP (10:32)
[2025-04-18] MEDS: Ondansetron 4 MG/2 ML VIAL IVP (10:34)
[2025-04-18] MEDS: Sucralfate 1 GM TAB PO (10:35)
[2025-04-18] MEDS: Famotidine 20 MG/2 ML VIAL IVP (10:35)
[2025-04-18] MEDS: MYLANTA 30 ML, LIDOCAINE 2% VISCOUS UD 15 ML PO (10:36)
[2025-04-18] MEDS: Lactated Ringers 1,000 ML 1000 ML IV (10:42)
[2025-04-18 10:54] LABS: ALT 93 U/L (16-63); AST 125 U/L (15-37); Albumin 4.0 g/dL (3.4-5.0); Alkaline Phosphatase 76 U/L (46-116); Anion Gap 23.3 mmol/L (3-11); BUN 8 mg/dL (7-18); Bilirubin, Total 0.6 mg/dL (0.2-1.0); CO2 18.7 mmol/L (21.0-32.0); Calcium 9.2 mg/dL (8.5-10.1); Chloride 91 mmol/L (98-107); Estimated GFR 112.95 (mL/min/1.73m2); Glucose 94 mg/dL (74-106); Lipase 412 U/L (<78); Potassium 3.6 mmol/L (3.5-5.1); Sodium 133 mmol/L (136-145); Total Protein 8.2 g/dL (6.4-8.2)
[2025-04-18 10:55] LABS: Troponin I 8 ng/L (<or=76)
[2025-04-18] MEDS: fentaNYL 100 MCG/2 ML VIAL 50 MCG IVP (11:23)
[2025-04-18 12:04] LABS: Troponin I 7 ng/L (<or=76)
[2025-04-18 12:18] LABS: Magnesium 1.3 mg/dL (1.8-2.4)
[2025-04-18] MEDS: MORPHine 4 MG/ML SYR IVP ×4 (12:19→23:52)
[2025-04-18] MEDS: MAGNESIUM SULFATE 8.12 MEQ, MULTIVITAMIN 10 ML, THIAMINE 100 MG, FOLIC ACID 1 MG in Nor... 168.867 MG IV (13:20)
[2025-04-18 14:17] LABS: Troponin I 7 ng/L (<or=76)
--- NOTE | 2025-04-18 14:59 | W.PC.ACHO ---
Registration Status: ADM IN Primary Language: Preferred Language: Arabic ED Information & Data Chief Complaint Abd Prob 04/18/25 11:08 Chief Complaint Abd Prob 04/18/25 10:20 Triage Note BIBA for report of ongoing 04/18/25 10:06 epigastric and CP. Reports pancreatitis. Woke this morning and drank a beer hoping this would help. Has not taken anything for pain today. Reports nausea without vomiting. 10/10 pain . Drinks 6 white claws daily , is supposed to go to [facility] soon for alcohol rehab. LBM 2 days ago. 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 Osteonecrosis Alcohol abuse Gallstone (~08/2024) (Last Reviewed 09/15/24 @ 09:02 by Meagan Hernandez NP) 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) Cyst of right upper eyelid Most Recent Vital Signs Temperature 36.6 C 04/18/25 10:26 Temperature Source Oral 04/18/25 10:26 Pulse 81 04/18/25 13:40 Pulse 81 04/18/25 13:40 Respiratory Rate 18 04/18/25 13:40 Blood Pressure 76/41 L 04/18/25 12:18 Blood Pressure Mean 49 04/18/25 12:18 Blood Pressure Position Sitting 04/18/25 10:26 Pulse Oximetry 92 04/18/25 13:40 Oxygen Delivery Method Room Air 04/18/25 10:26 Oxygen Flow Rate 0 04/18/25 10:26 Pain Level 10 04/18/25 14:55 Allergies hydromorphone (From Dilaudid) Adverse Reaction (Intermediate, Verified 04/18/25 10:18) Other (See Comment) Nausea. Dont give me that stuff. Active Medications Generic Name Dose Route Start Last Admin Trade Name Freq PRN Reason Stop Dose Admin Magnesium Sulfate 8.12 meq/ 1,013.2 mls @ 168.867 mls/hr 04/18/25 12:10 04/18/25 13:20 Multivitamins 10 ml/ Thiamine IV 04/18/25 18:09 168.867 mls/hr HCl 100 mg/ Folic Acid 1 mg/ INFUSION ONE Administration Sodium Chloride Morphine Sulfate 4 mg 04/18/25 12:21 04/18/25 14:55 Morphine 4 Mg/Ml Syr IVP 4 mg Q3H PRN PRN Administration Analgesia IV IV Catheter Type [Right Saline Lock Antecubital] IV Catheter Gauge [Right 18 Antecubital] Diet Orders Category Date Time Status Nothing Per Oral [DIET] Nutrition 04/18/25 12:19 Active Diagnostics 04/18/25 04/18/25 04/18/25 Range/Units 13:45 11:25 10:25 WBC 8.04 (4.4-10.8) 10^3/uL RBC 4.27 L (4.36-5.78) 10^6/uL Hgb 14.1 (13.5-17.5) g/dL Hct 40.6 (40.0-50.0) % MCV 95 (80-95) fL MCH 33.0 (27.0-33.0) pg MCHC 34.7 (32.0-36.0) % RDW 12.4 (11.8-14.1) % Plt Count 114 L (130-400) 10^3/uL MPV 9.3 (8.0-11.0) fL Immature Gran % 0.5 % Neutrophils % 77.7 % Lymphocytes % 13.7 % Monocytes % 7.6 % Eosinophils % 0.0 % Basophils % 0.5 % Nucleated RBC % 0.0 (0.0-0.3) % Absolute Neutrophils 6.25 (1.2-6.7) 10^3/uL Absolute Lymphocytes 1.10 L (1.2-3.4) 10^3/uL Absolute Monocytes 0.61 (0.1-0.8) 10^3/uL Absolute Eosinophils 0.00 (0.0-0.7) 10^3/uL Absolute Basophils 0.04 (0.0-0.2) 10^3/uL Sodium 133 L (136-145) mmol/L Potassium 3.6 (3.5-5.1) mmol/L Chloride 91 L (98-107) mmol/L Carbon Dioxide 18.7 L (21.0-32.0) mmol/L Anion Gap 23.3 H (3-11) mmol/L BUN 8 (7-18) mg/dL Creatinine 0.7 (0.70-1.30) mg/dL Est GFR (CKD-EPI 2020) 112.95 (mL/min/1.73m2) Glucose 94 (74-106) mg/dL Calcium 9.2 (8.5-10.1) mg/dL Magnesium 1.3 L (1.8-2.4) mg/dL Total Bilirubin 0.6 (0.2-1.0) mg/dL AST 125 H (15-37) U/L ALT 93 H (16-63) U/L Alkaline Phosphatase 76 (46-116) U/L Troponin I 7 7 8 (<or=76) ng/L Total Protein 8.2 (6.4-8.2) g/dL Albumin 4.0 (3.4-5.0) g/dL Lipase 412 H (<78) U/L Ethyl Alcohol 228.6 H (<10) mg/dL Intake and Output - 24 Hour Total 04/18/25 10:01 thru 04/18/25 11:47 Intake Total 1000 Balance 1000 Weight 69.853 kg Intake: IV 1000 Falls Risk Assessment History of Falls No History 04/18/25 10:26 Contributing Factors No Factors 04/18/25 10:26 Ambulatory Aids Independent 04/18/25 10:26 Tubes/Lines None 04/18/25 10:26 Gait Evaluation No gait disturbance 04/18/25 10:26 Cognition No cognitive impairment 04/18/25 10:26 Fall Total Score 0 04/18/25 10:26 Level of Risk Standard/Low Risk 04/18/25 10:26 v v v v v v v v v Sending and/or Receiving Nurses: Please use comment section below to note any information pertinent to the patient hand-off not included above. Information / Comments: Pt arrived to floor and was settled into room by DICE PERSON and nurse. Pt is a/o x 2-3 but sleepy and visibly in pain. Asking for pain meds. IV banana bag running without issues. Pt able to answer all questions. Oriented to room and call evangelista within reach. Report received from: [facility]
--- NOTE | 2025-04-18 15:01 | W.PM.HP.N ---
Date of service: 04/18/25 Time of Service: 15:02 Assessment and Plan Assessment and plan (1) Alcoholic pancreatitis: Status: Acute Assessment and plan: Recurrent pancreatitis, presumed alcoholic. Continue NPO and IV fluids, pain management, antiemetics He has multiple recent scans, no h/o complicated pancreatitis such as pseudocysts. Will treat conservatively and image if not improving. (2) Alcohol withdrawal: Status: Acute Assessment and plan: Clearing starting alcohol withdrawal now. H/o withdrawal and has done well with phenobarbital protocol. (3) Nicotine addiction: Status: Acute Assessment and plan: patches (4) Alcoholism, chronic: Status: Acute Assessment and plan: discussed options, interested in medical therapy with naltrexone and inpatient rehab when ready. (5) DVT prophylaxis: Status: Resolved Assessment and plan: enoxaparin History of Present Illness History of Present Illness Chief Complaint: abdominal pain Narrative: 50 yo M with alcohol use disorder with daily use and history of pancreatitis presented with one day of progressive epigastric pain. Pain sharp, like a twisting knife, in left epigastrum/lower chest with some radiation to mid back. Started while drinking the night before admission. He continued to drink, 12+ hard seltzers because the alchohol would help the pain breifly. He was not eating during this time. He had no trauma in to the area. Pain got worse and a/w dry heaves and he came into the ED. The pain is severe, fentanyl didn't help but morphine did in the ED. This is similar to previous pancreatitis. No blood/black vomiting. No fever/chills. No stools for several days, feels constipated. He was drinking 4-5 drinks/night before this when he was working. His plan is to go to [facility], but hasn't made it there yet. He would like to go after he gets out of the hospital. Review of Systems All systems reviewed & are unremarkable except as noted in HPI and below ENT Comments: some runny nose, not new Integumentary/Breasts Comments: some itching, no rash, not now PFSH All Active Problems (Updated 04/18/25 @ 15:25 by Aguilar William) Alcoholic pancreatitis (Acute) Pancreatitis (Chronic) Alcohol intoxication (Acute) Alcohol withdrawal (Acute) Alcoholism, chronic (Acute) Pancreatitis (Chronic) Gallbladder polyp (Acute) Postprandial RUQ pain (Acute) Gallbladder disease (Acute) Dizziness (Acute) Nicotine addiction (Acute) Avascular necrosis of bone of left hip (Acute) Hepatic steatosis (Acute) Impairment of balance (Acute) Chronic vertigo (Acute) Medical History Anxiety Acid reflux 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 Osteonecrosis bone of left hip 04/23/24 CT evidence of a vascular necrosis of left hip Alcohol abuse Gallstone (~08/2024) Alcoholic pancreatitis Surgical History 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) Cyst of right upper eyelid Family History Maternal Grandfather Alcohol abuse Maternal Uncle Alcohol abuse Social History (Updated 04/18/25 @ 15:15 by Aguilar William) Smoking/Tobacco Use Status: Current every day Tobacco Type: cigarettes Years smoked: 25 Smoking risk assessment performed?: Yes Alcohol Intake: current Alcohol Intake frequency: 3 or more drinks per day Counseling given: Yes Drug use: Rarely Substance use type: does not use Housing: apartment 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 Meds Allergies and Home Medications Allergies Allergy/AdvReac Type Severity Reaction Status Date / Time hydromorphone (From Dilaudid) AdvReac Intermediate Other (See Verified 04/18/25 10:18 Comment) Home Medications ?Medication ?Instructions ?Recorded ?Confirmed ?Type magnesium oxide 500 mg capsule 500 mg PO BID #30 caps 01/29/25 04/18/25 Rx Held on 04/18/25. Instructions: Pt Stopped/Never Started meclizine 25 mg tablet 25 mg PO TID PRN dizziness #30 tabs 01/29/25 04/18/25 Rx Held on 04/18/25. Instructions: Pt Stopped/Never Started folic acid 1 mg tablet 1 mg PO DAILY #30 tabs 03/24/25 04/18/25 Rx Held on 04/18/25. Instructions: Pt Stopped/Never Started thiamine mononitrate (vit B1) 100 100 mg PO DAILY #30 tabs 03/24/25 04/18/25 Rx mg tablet (Vitamin B-1 (mononitrate)) Held on 04/18/25. Instructions: Pt Stopped/Never Started calcium PO BID 04/18/25 History potassium PO BID 04/18/25 History Exam Narrative Exam Narrative: GEN: Alert and oriented x 4, pleasant and cooperative, gives linear history. No acute distress at rest, but anxious and clammy. HEENT: Head atraumatic. Conjunctiva clear, no icterus. PEERL, EOMI. no rhinorrhea. MM dry, OP benign. Neck is supple with no masses or lymphadenopathy, trachea midline LUNGS: CTAB with normal effort CV: RRR rate in 90s with no murmurs, gallops, or rubs. ABD: active bowel sounds, soft. Moderately tender in epigastrum, left more than right. No masses, no guarding or rebound. EXT: no cyanosis, clubbing, or edema MSK: No joint redness or swelling NEURO: CN 2-12 grossly intact. Normal movement of 4 extremities. Normal speech and coordination. Mild tremor with hands extended, no asterixis SKIN: No rashes or open wounds. PSYCH: Anxious mood and affect Results Imaging Chest x-ray: report reviewed (No acute pulmonary findings on this single AP portable view of the chest) and image reviewed EKG: report reviewed and image reviewed (NSR, nl axis, intervals, no ST-T abnormalities) Labs 04/18/25 10:25 04/18/25 10:25 Labs: Laboratory Results - last 24 hr 04/18/25 04/18/25 04/18/25 10:25 11:25 13:45 WBC 8.04 RBC 4.27 L Hgb 14.1 Hct 40.6 MCV 95 MCH 33.0 MCHC 34.7 RDW 12.4 Plt Count 114 L MPV 9.3 Immature Gran % 0.5 Neutrophils % 77.7 Lymphocytes % 13.7 Monocytes % 7.6 Eosinophils % 0.0 Basophils % 0.5 Nucleated RBC % 0.0 Absolute Neutrophils 6.25 Absolute Lymphocytes 1.10 L Absolute Monocytes 0.61 Absolute Eosinophils 0.00 Absolute Basophils 0.04 Sodium 133 L Potassium 3.6 Chloride 91 L Carbon Dioxide 18.7 L Anion Gap 23.3 H BUN 8 Creatinine 0.7 Est GFR (CKD-EPI 2020) 112.95 Glucose 94 Calcium 9.2 Magnesium 1.3 L Total Bilirubin 0.6 AST 125 H ALT 93 H Alkaline Phosphatase 76 Troponin I 8 7 7 Total Protein 8.2 Albumin 4.0 Lipase 412 H Ethyl Alcohol 228.6 H Last Vital Signs Temp 36.6 C 04/18/25 10:26 Pulse 81 04/18/25 13:40 Resp 18 04/18/25 13:40 BP 76/41 L 04/18/25 12:18 Pulse Ox 92 04/18/25 13:40 PAWSS Have you Been Recently Intoxicated or Drunk Within the Last 30 days?: Yes Have you Ever Experienced Previous Episodes of Alcohol Withdrawal?: Yes Have you ever Experienced Withdrawal Seizures?: No Have you ever Experienced Delirium Tremens(DT)s?: Yes Have you ever undergone Alcohol Rehabilitation Treatment (i.e, inpt ot outpatient treatment programs)?: Yes Have you ever Experienced Blackouts?: Yes Have you ever Combined Alcohol with other Downers within the last 90 days?: No Have you ever Combined Alcohol with any other Substance of Abuse during the last 90 days?: No Positive Blood Alcohol level on Presentation? [PCS.BAL]: No Evidence of Increased Autonomic Activity (i.e. HR>120, tremor, sweating, agitation, nausea)?: No Result: 5 Time Spent Time spent with Patient: 55-74 minutes Time was spent: preparing to see the patient(eg.review tests), obtaining and/or reviewing separately otained hiistory, ordering medications,tests, procedures, referring, communicating with other health skin care consultant, indepentently interpreting results, counseling the patient and care coordination
[2025-04-18] MEDS: PHENobarbital 150 MG in Normal Saline 50 ML 100 MG IVPB (15:48)
[2025-04-18] MEDS: Prochlorperazine 10 MG/2 ML VIAL IVP (17:08)
[2025-04-18] MEDS: PHENobarbital 110 MG in Normal Saline 50 ML 100 MG IVPB ×2 (18:32→20:54)
[2025-04-18] MEDS: Acetaminophen 325 MG TAB 650 MG PO (20:53)
[2025-04-18] MEDS: Ketorolac 30 MG/ML VIAL IM (20:53)
[2025-04-18] MEDS: Normal Saline Flush 10 ML SYR IVP (20:55)
[2025-04-19] MEDS: Acetaminophen 325 MG TAB 650 MG PO ×3 (02:03→20:01)
[2025-04-19] MEDS: MORPHine 4 MG/ML SYR IVP ×7 (02:07→23:18)
[2025-04-19] MEDS: Ondansetron 4 MG/2 ML VIAL IVP (02:34)
[2025-04-19 02:54] VITALS: BP 124/77; PULSE 66; RESP 17; TEMP 36.6; O2SAT 96
[2025-04-19] MEDS: PHENobarbital 130 MG/ML VIAL IVP (03:41)
[2025-04-19] MEDS: Lactated Ringers 1,000 ML 125 ML IV ×3 (03:41→22:06)
[2025-04-19] MEDS: Ketorolac 15 MG/ML VIAL IVP ×3 (04:05→20:02)
[2025-04-19] MEDS: Normal Saline Flush 10 ML SYR IVP ×5 (04:05→23:18)
[2025-04-19 05:35] VITALS: BP 166/95; PULSE 81; RESP 14; TEMP 37; O2SAT 98
[2025-04-19] MEDS: Prochlorperazine 10 MG/2 ML VIAL IVP (05:51)
[2025-04-19 06:30] LABS: HCT 37.1 % (40.0-50.0); HGB 12.9 g/dL (13.5-17.5); MCH 33.4 pg (27.0-33.0); MCHC 34.8 % (32.0-36.0); MCV 96 fL (80-95); MPV 9.7 fL (8.0-11.0); RBC 3.86 10^6/uL (4.36-5.78); RDW 12.4 % (11.8-14.1); RDW-SD 42.8 fL; WBC 8.20 10^3/uL (4.4-10.8)
[2025-04-19 06:50] LABS: ALT 68 U/L (16-63); AST 68 U/L (15-37); Albumin 3.8 g/dL (3.4-5.0); Alkaline Phosphatase 65 U/L (46-116); Anion Gap 21.8 mmol/L (3-11); BUN 5 mg/dL (7-18); Bilirubin, Total 1.0 mg/dL (0.2-1.0); CO2 17.2 mmol/L (21.0-32.0); Calcium 8.8 mg/dL (8.5-10.1); Chloride 94 mmol/L (98-107); Estimated GFR 118.34 (mL/min/1.73m2); Glucose 109 mg/dL (74-106); Magnesium 1.6 mg/dL (1.8-2.4); Potassium 4.1 mmol/L (3.5-5.1); Sodium 133 mmol/L (136-145); Total Protein 7.5 g/dL (6.4-8.2)
[2025-04-19 07:00] LABS: Platelet Count 99 10^3/uL (130-400)
[2025-04-19 07:47] VITALS: BP 159/96; PULSE 75; RESP 20; TEMP 35.8; O2SAT 96
[2025-04-19] MEDS: Enoxaparin 40 MG/0.4 ML SYR SC (08:36)
[2025-04-19] MEDS: MAGNESIUM SULFATE 2 GM/50 ML BAG IV_INF (08:37)
[2025-04-19] MEDS: Lactated Ringers 1,000 ML 1000 ML IV (09:00)
--- NOTE | 2025-04-19 09:42 | W.PM.PROGNOT ---
Date of Service Date of service: 04/19/25 Time of Service: 09:43 Assessment and Plan Assessment and plan (1) Alcoholic pancreatitis: Status: Acute Assessment and plan: Recurrent pancreatitis, presumed alcoholic. Continue NPO and IV fluids, pain management, antiemetics He has multiple recent scans, no h/o complicated pancreatitis such as pseudocysts. Will treat conservatively and image if not improving. Will progress to low fat clears, cautiously. Labs reflect he is still dry, give additional bolus and recheck in PM. (2) Alcohol withdrawal: Status: Acute Assessment and plan: H/o withdrawal and has done well with phenobarbital protocol in the past. He is not scoring high since phenobarbital started. (3) Nicotine addiction: Status: Acute Assessment and plan: NRT patches (4) Alcoholism, chronic: Status: Acute Assessment and plan: discussed options, interested in medical therapy with naltrexone and inpatient rehab when ready. Wait for naltrexone until off opioids. (5) DVT prophylaxis: Status: Resolved Assessment and plan: enoxaparin Subjective Subjective Patient reports: voiding w/o difficulty; denies diarrhea, vomiting, shortness of breath or fever Interval history since last seen: He is still having same pain, morphine usually helps. Also got ketoralac overnight. He still feels thirsty, dry. Has been NPO, he would like to try clears. Exam Narrative Exam Narrative: GEN: Alert and oriented. No acute distress at rest, less anxious, still clammy. No hallucinations LUNGS: CTAB with normal effort CV: RRR rate in 70s with no murmurs, gallops, or rubs. ABD: active bowel sounds, soft. Moderately tender in epigastrum, left more than right. No masses, no guarding or rebound. EXT: no cyanosis, clubbing, or edema NEURO: No tremor, no asterixis SKIN: No rashes or open wounds. Objective Last Vital Signs Temp 35.8 C L 04/19/25 07:47 Pulse 75 04/19/25 07:47 Resp 20 04/19/25 07:47 BP 159/96 H 04/19/25 07:47 Pulse Ox 96 04/19/25 07:47 Laboratory Results - last 24 hr 04/18/25 04/18/25 04/18/25 10:25 11:25 13:45 WBC 8.04 RBC 4.27 L Hgb 14.1 Hct 40.6 MCV 95 MCH 33.0 MCHC 34.7 RDW 12.4 Plt Count 114 L MPV 9.3 Immature Gran % 0.5 Neutrophils % 77.7 Lymphocytes % 13.7 Monocytes % 7.6 Eosinophils % 0.0 Basophils % 0.5 Nucleated RBC % 0.0 Absolute Neutrophils 6.25 Absolute Lymphocytes 1.10 L Absolute Monocytes 0.61 Absolute Eosinophils 0.00 Absolute Basophils 0.04 Sodium 133 L Potassium 3.6 Chloride 91 L Carbon Dioxide 18.7 L Anion Gap 23.3 H BUN 8 Creatinine 0.7 Est GFR (CKD-EPI 2020) 112.95 Glucose 94 Calcium 9.2 Phosphorus Magnesium 1.3 L Total Bilirubin 0.6 AST 125 H ALT 93 H Alkaline Phosphatase 76 Troponin I 8 7 7 Total Protein 8.2 Albumin 4.0 Lipase 412 H Ethyl Alcohol 228.6 H 04/19/25 06:08 WBC 8.20 RBC 3.86 L Hgb 12.9 L Hct 37.1 L MCV 96 H MCH 33.4 H MCHC 34.8 RDW 12.4 Plt Count 99 L MPV 9.7 Immature Gran % Neutrophils % Lymphocytes % Monocytes % Eosinophils % Basophils % Nucleated RBC % Absolute Neutrophils Absolute Lymphocytes Absolute Monocytes Absolute Eosinophils Absolute Basophils Sodium 133 L Potassium 4.1 Chloride 94 L Carbon Dioxide 17.2 L Anion Gap 21.8 H BUN 5 L Creatinine 0.6 L Est GFR (CKD-EPI 2020) 118.34 Glucose 109 H Calcium 8.8 Phosphorus 2.0 L Magnesium 1.6 L Total Bilirubin 1.0 AST 68 H ALT 68 H Alkaline Phosphatase 65 Troponin I Total Protein 7.5 Albumin 3.8 Lipase Ethyl Alcohol PAWSS Have you Been Recently Intoxicated or Drunk Within the Last 30 days?: Yes Have you Ever Experienced Previous Episodes of Alcohol Withdrawal?: Yes Have you ever Experienced Withdrawal Seizures?: No Have you ever Experienced Delirium Tremens(DT)s?: No Have you ever undergone Alcohol Rehabilitation Treatment (i.e, inpt ot outpatient treatment programs)?: Yes Have you ever Experienced Blackouts?: Yes Have you ever Combined Alcohol with other Downers within the last 90 days?: No Have you ever Combined Alcohol with any other Substance of Abuse during the last 90 days?: No Positive Blood Alcohol level on Presentation? [PCS.BAL]: Yes Evidence of Increased Autonomic Activity (i.e. HR>120, tremor, sweating, agitation, nausea)?: Yes Result: 6 Time Spent with Patient Time Spent with Patient: 35-49 minutes Time was spent: preparing to see the patient(eg.review tests), obtaining and/or reviewing separately otained hiistory, ordering medications,tests, procedures, referring, communicating with other health farm or ranch animal caretaker, indepentently interpreting results, counseling the patient and care coordination
--- NOTE | 2025-04-19 10:09 | PDOC.CMIN ---
Date of service: 04/19/25 Time of Service: 13:16 Care Management Initial Assmt Initial Assessment Reason for Hospitalization: pancreatitis, alcohol intoxication Functional Status/Living Situation Patient Presentation: Paul was sitting up in bed when CM met with him. He was pleasant and engaged in conversation with CM. Paul was admitted to the hospital 03/22/25 for ETOH withdrawal; He met with the transit coach operator while in the ED during this visit. Paul presented to the ED yesterday for left-sided chest pain and was admitted to [facility] for ETOH withdrawal. Paul was admitted with alcohol withdrawal and pancreatitis. Paul expressed interest in speaking with a transit coach operator; the transit coach operator was andrew. Paul reported feeling ?crappy? today. He stated his last alcohol use was Monday morning, prior to admission to [facility], noting he was hoping it would take his pain away. Per report, Paul has not scored on CIWA since initiation of Phenobarbital. He has been NPO since yesterday; oral fluids are now being offered, and he is receiving IV fluids and pain management. Paul resides independently in [facility], in his apartment. He plans to return home following discharge to ?clean up? before transitioning to [facility] for inpatient treatment, where he has reportedly been accepted. CM will continue to follow. Town of Residence: [facility] Resides with: Alone Significant Other/Family: Out of area Employment Status: Employed Instrumental Activities of Daily Living (ADLs): Independent Medications Medication Management: No Issues/Barriers identified Advance Directives Advance Directives: Do you have an Advance Directive: N 11/22/16, 19:40 AD On File at [facility]: N 11/22/16, 19:40 Date Asked 04/18/25 04/18/25, 10:06 AD Date Reviewed COLST On File at [facility] No 03/30/24, 17:21 COLST Date Scanned Code Status Resuscitation Status Full Code Portal Pt does not currently have a portal and education provided: Yes Insurance Coverage/Financial Issues Insurance: Medicaid of [place] - [id number] Care Team Visit Care Team Role Provider Type OWEN GARRISON NP Primary Care Provider NON-[facility] STAFF PHYSICIAN Alejandro Thomas DO Emergency Provider [facility] STAFF PHYSICIAN Aguilar William Admit Provider [facility] STAFF PHYSICIAN Attending Provider Discharge Potential Discharge Needs: PCP F/U Appt Anticipated Barriers to Discharge: Medical Status Patient/Family Education Needs: Review discharge instructions, discuss Ask Me Three Transportation: Private vehicle Plan: Anticipate Paul will be discharged home with no new services when medically ready. It is recommended he follow up with his community providers and discharge plan of care. He will transport via private vehicle by a friend. CM will continue to follow. Social Determinants of Health Screening Social Determinants of health last assessed in clinic: 04/19/25 Will the Patient Participate in the Screening?: Yes Do you worry about having a steady place to live?: no Problems where you live: no known problems In the past 12 months, have you had to go without electric, gas, oil or water in your home?: no 1. Within the past 12 months, we worried whether our food would run out before we got money to buy more.: Never true 2. Within the past 12 months, the food we bought just didn't last and we didn't have money to get more.: Never true Has lack of transportation kept you from medical appointments or from doing things needed for daily living?: no Has anyone in your life made you feel unsafe or unsupported?: no How hard is it for you to pay for the very basics like food, housing, medical care, and heating? Would you say it is:: Somewhat hard Do you want help finding or keeping work or a job?: Yes, help keeping work If for any reason you need help with day-to-day activities such as bathing, preparing meals, shopping, managing finances, etc., do you get the help you need?: I don?t need any help How often do you feel lonely or isolated from those around you?: Sometimes Do you speak a language other than American at home?: No Does the patient want assistance with any of the above?: No Health Related Social Needs Health related social needs: problems related to housing/economic circumstances (Z59.89), problems finding work (Z56.9) and feeling lonely/isolated (Z60.8) Health related social needs details: Worried about not having enough money when he leaves hospital [facility] All Active Problems (Updated 04/18/25 @ 15:25 by Aguilar William) Pancreatitis (Chronic) Alcohol intoxication (Acute) Alcoholic pancreatitis (Acute) Alcohol withdrawal (Acute) Alcoholism, chronic (Acute) Pancreatitis (Chronic) Gallbladder polyp (Acute) Postprandial RUQ pain (Acute) Gallbladder disease (Acute) Dizziness (Acute) Nicotine addiction (Acute) Avascular necrosis of bone of left hip (Acute) Hepatic steatosis (Acute) Impairment of balance (Acute) Chronic vertigo (Acute) Medical History Anxiety Acid reflux 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 Osteonecrosis bone of left hip 04/23/24 CT evidence of a vascular necrosis of left hip Alcohol abuse Gallstone (~08/2024) Alcoholic pancreatitis Surgical History 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) Cyst of right upper eyelid Family History Maternal Grandfather Alcohol abuse Maternal Uncle Alcohol abuse Social History (Updated 04/18/25 @ 15:15 by Aguilar William) Smoking/Tobacco Use Status: Current every day Tobacco Type: cigarettes Years smoked: 25 Smoking risk assessment performed?: Yes Alcohol Intake: current Alcohol Intake frequency: 3 or more drinks per day Counseling given: Yes Drug use: Rarely Substance use type: does not use Housing: apartment 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 Readmission Within the Past 30 Days Yes or No: Yes Date of First Admission Date of 1st Admission: 03/22/25 Date of this Admission Date of Admission: 04/18/25 This admission was: Through ED Office Visit Since 1st Admission Have you seen your PCP in the office since discharge?: No Had an appointment Been Scheduled?: No Describe barriers for scheduling or getting an appointment: Didnt get around to it I. Interview patient and/or Family Difficulty reaching your doctor or getting an office appt?: No Have you had trouble purchasing/ or taking medication?: No Have you had trouble with getting meals at home?: No Did you feel ready for discharge when you left the last time: Yes Were services received that you thought were set up on disch: Yes Reason there were no orders at discharge: none indicated Did you call your physician beore you came to the ED?: No Did your physician tell you to come in?: No How do you think you became sick enough to come back?: I started to drink again If the patient had a VNA ordered Did the patient have a VNA order?: No Did you call the VNA before you came?: No ED visits How many ED visits in the past 12 months: 15 Assessment for Readmission Summary of readmission circumstances, based upon interviews: The patient began to drink again and represented to the ED
[2025-04-19 11:08] VITALS: BP 162/99; PULSE 85; RESP 16; TEMP 36.2; O2SAT 96
--- NOTE | 2025-04-19 12:40 | PHA.REVIEW2 ---
Pharmacy Admission Review Admission Clinical Review Admission Pharmacy Review: Alcoholic pancreatitis (Acute) Alcohol withdrawal (Acute) Alcoholism, chronic (Acute) Nicotine addiction (Acute) hydromorphone (From Dilaudid) Adverse Reaction (Intermediate, Verified 04/18/25 10:18) Other (See Comment) Resuscitation Status Full Code Height 5 ft 6 in Weight 63.367 kg Pharmacy Admission Review Renal Dosing Renal Dosing: BUN 5 mg/dL (7-18) L 04/19/25 06:08 Creatinine 0.6 mg/dL (0.70-1.30) L 04/19/25 06:08 Medications needing adjustments: Reviewed (CrCl 133.48 mL/min) List of meds needing interventions: Current medications are okay Anticoagulation Anticoagulation: Hgb 12.9 g/dL (13.5-17.5) L 04/19/25 06:08 Hct 37.1 % (40.0-50.0) L 04/19/25 06:08 Plt Count 99 10^3/uL (130-400) L 04/19/25 06:08 Creatinine 0.6 mg/dL (0.70-1.30) L 04/19/25 06:08 DVT Prophylaxis: Reviewed Medications: Enoxaparin (40mg daily) Opiate Usage Evaluate Pain Scale/Pains Meds: Reviewed (morphine 4mg IVP q2h PRN 20mg/24hrs) Scheduled Bowel Reg ordered if on Opiates?: No (PRN Miralax) Relevant Labs Relevant Labs: Sodium 133 mmol/L (136-145) L 04/19/25 06:08 Potassium 4.1 mmol/L (3.5-5.1) 04/19/25 06:08 Chloride 94 mmol/L (98-107) L 04/19/25 06:08 Phosphorus 2.0 mg/dL (2.6-4.7) L 04/19/25 06:08 Magnesium 1.6 mg/dL (1.8-2.4) L 04/19/25 06:08 Electrolytes, C-Reactive P, ESR: Reviewed (IV Mg given this morning, repeat labs pending) Cardiac Review Cardiac Review: Troponin I 7 ng/L (<or=76) 04/18/25 13:45 Blood Pressure 162/99 1108 Blood Pressure 159/96 0747 Blood Pressure 166/95 0535 Blood Pressure 124/77 0254 BP, HR, EF%: Reviewed (HR WNL) QTc Review QTc: Reviewed (447 from 04/18/25) IV to PO Switch IV Medications: Reviewed (NPO per progress note) Home Meds Home Med List reviewed: Reviewed Relevent Home Meds Not ordered & why?: calcium, meclizine (PRN) and potassium Current Meds Current Medication Order Review: Intervened Comments: Changed IV ED access order Phenobarbital for alcohol withdrawal Soft stop: 957mg Hard stop: 1276mg CIWA 5 @ 0921 Current total: 500mg (last dosed 04/19 @ 1652
[2025-04-19 15:11] LABS: Anion Gap 18.3 mmol/L (3-11); BUN 2 mg/dL (7-18); CO2 19.7 mmol/L (21.0-32.0); Calcium 8.8 mg/dL (8.5-10.1); Chloride 90 mmol/L (98-107); Estimated GFR 118.34 (mL/min/1.73m2); Glucose 205 mg/dL (74-106); Potassium 3.7 mmol/L (3.5-5.1); Sodium 128 mmol/L (136-145)
[2025-04-19 15:20] VITALS: BP 154/95; PULSE 79; RESP 16; TEMP 36.2; O2SAT 97
[2025-04-19 20:16] VITALS: BP 128/86; PULSE 100; RESP 12; TEMP 37.4; O2SAT 97
[2025-04-19] MEDS: Nicotine 14 MG/24 HR PATCH TD (22:07)
[2025-04-20] MEDS: Acetaminophen 325 MG TAB 650 MG PO (02:07)
[2025-04-20] MEDS: Ketorolac 15 MG/ML VIAL IVP ×2 (02:08→11:51)
[2025-04-20] MEDS: MORPHine 4 MG/ML SYR IVP (02:08)
[2025-04-20] MEDS: Ondansetron 4 MG/2 ML VIAL IVP (02:08)
[2025-04-20 03:44] VITALS: BP 125/83; PULSE 88; RESP 16; TEMP 36.6; O2SAT 97
[2025-04-20 07:15] LABS: HCT 38.5 % (40.0-50.0); HGB 13.8 g/dL (13.5-17.5); MCH 33.1 pg (27.0-33.0); MCHC 35.8 % (32.0-36.0); MCV 92 fL (80-95); MPV 10.2 fL (8.0-11.0); RBC 4.17 10^6/uL (4.36-5.78); RDW 11.7 % (11.8-14.1); RDW-SD 39.7 fL; WBC 9.90 10^3/uL (4.4-10.8)
[2025-04-20 07:34] LABS: ALT 51 U/L (16-63); AST 28 U/L (15-37); Albumin 3.4 g/dL (3.4-5.0); Alkaline Phosphatase 62 U/L (46-116); Anion Gap 12.8 mmol/L (3-11); BUN 1 mg/dL (7-18); Bilirubin, Total 0.9 mg/dL (0.2-1.0); CO2 25.2 mmol/L (21.0-32.0); Calcium 9.4 mg/dL (8.5-10.1); Chloride 94 mmol/L (98-107); Estimated GFR 125.03 (mL/min/1.73m2); Glucose 124 mg/dL (74-106); Magnesium 1.7 mg/dL (1.8-2.4); Potassium 3.5 mmol/L (3.5-5.1); Sodium 132 mmol/L (136-145); Total Protein 7.6 g/dL (6.4-8.2)
[2025-04-20] MEDS: Lactated Ringers 1,000 ML 125 ML IV ×2 (07:36→21:32)
[2025-04-20 08:23] LABS: Vitamin B12 714 pg/mL (193-986)
[2025-04-20 08:39] LABS: Platelet Count 92 10^3/uL (130-400)
[2025-04-20 11:09] VITALS: BP 133/89; PULSE 98; RESP 17; TEMP 36.7; O2SAT 96
[2025-04-20] MEDS: Enoxaparin 40 MG/0.4 ML SYR SC (11:40)
[2025-04-20] MEDS: MAGNESIUM SULFATE 8.12 MEQ, MULTIVITAMIN 10 ML, THIAMINE 100 MG, FOLIC ACID 1 MG in Nor... 168.867 MG IV (11:40)
[2025-04-20] MEDS: Normal Saline Flush 10 ML SYR IVP (11:41)
--- NOTE | 2025-04-20 13:46 | PGE_ITS ---
Date of Service Date of service: 04/20/25 Time of Service: 13:46 Assessment and Plan Assessment and plan (1) Alcoholic pancreatitis: Status: Acute Assessment and plan: Recurrent pancreatitis, presumed alcoholic. Continue NPO and IV fluids, pain management, antiemetics He has multiple recent scans, no h/o complicated pancreatitis such as pseudocysts. Will treat conservatively and image if not improving. Will progress to low fat clears, cautiously. Labs reflect he is still dry, give additional bolus and recheck in PM. 04/20/25 recheck lipase, last level drawn on 04/18/25 cw ivf LR at 125 advance diet most likely for dc in am (2) Alcohol withdrawal: Status: Acute Assessment and plan: H/o withdrawal and has done well with phenobarbital protocol in the past. He is not scoring high since phenobarbital started. 04/20/25 on CIWA, banana bag, phenobarbital w/d protocol (3) Nicotine addiction: Status: Acute Assessment and plan: NRT patches (4) Alcoholism, chronic: Status: Acute Assessment and plan: discussed options, interested in medical therapy with naltrexone and inpatient rehab when ready. Wait for naltrexone until off opioids. (5) DVT prophylaxis: Status: Resolved Assessment and plan: enoxaparin Subjective Subjective Interval history since last seen: Pt states he is feeling much better. 2/10 pain. Wants to advance diet. Exam Narrative Exam Narrative: heent-ncat mmm neck-no lad no jvd cv-rrr no mrg lungs-ctab abd-sndnt ext-no cce Objective Last Vital Signs Temp 36.7 C 04/20/25 11:09 Pulse 98 H 04/20/25 11:09 Resp 17 04/20/25 11:09 BP 133/89 04/20/25 11:09 Pulse Ox 96 04/20/25 11:09 Laboratory Results - last 24 hr 04/19/25 04/20/25 14:54 06:43 WBC 9.90 RBC 4.17 L Hgb 13.8 Hct 38.5 L MCV 92 D MCH 33.1 H MCHC 35.8 RDW 11.7 L Plt Count 92 L MPV 10.2 Sodium 128 L 132 L Potassium 3.7 3.5 Chloride 90 L 94 L Carbon Dioxide 19.7 L 25.2 Anion Gap 18.3 H 12.8 H BUN 2 L 1 L Creatinine 0.6 L 0.5 L Est GFR (CKD-EPI 2020) 118.34 125.03 Glucose 205 H 124 H Calcium 8.8 9.4 Magnesium 1.7 L Total Bilirubin 0.9 AST 28 ALT 51 Alkaline Phosphatase 62 Total Protein 7.6 Albumin 3.4 Vitamin B12 714 PAWSS Have you Been Recently Intoxicated or Drunk Within the Last 30 days?: Yes Have you Ever Experienced Previous Episodes of Alcohol Withdrawal?: Yes Have you ever Experienced Withdrawal Seizures?: No Have you ever Experienced Delirium Tremens(DT)s?: No Have you ever undergone Alcohol Rehabilitation Treatment (i.e, inpt ot outpatient treatment programs)?: Yes Have you ever Experienced Blackouts?: Yes Have you ever Combined Alcohol with other Downers within the last 90 days?: No Have you ever Combined Alcohol with any other Substance of Abuse during the last 90 days?: No Positive Blood Alcohol level on Presentation? [PCS.BAL]: Yes Evidence of Increased Autonomic Activity (i.e. HR>120, tremor, sweating, agitation, nausea)?: Yes Result: 6 Time Spent with Patient Time Spent with Patient: <25 minutes Time was spent: preparing to see the patient(eg.review tests), obtaining and/or reviewing separately otained hiistory, ordering medications,tests, procedures, referring, communicating with other health pharmacy care coordinator, indepentently interpreting results, counseling the patient and care coordination
[2025-04-20 15:15] VITALS: BP 126/89; PULSE 92; RESP 17; TEMP 36.9; O2SAT 96
[2025-04-20 20:00] VITALS: BP 134/86; PULSE 83; RESP 18; TEMP 37.3; O2SAT 98
[2025-04-20 23:48] VITALS: BP 124/94; PULSE 90; RESP 16; TEMP 37.9; O2SAT 95
[2025-04-21] MEDS: Melatonin 3 MG TAB 6 MG PO (00:17)
[2025-04-21 04:03] VITALS: BP 111/73; PULSE 93; RESP 16; TEMP 37.6; O2SAT 96
[2025-04-21] MEDS: Lactated Ringers 1,000 ML 125 ML IV (05:43)
[2025-04-21 06:50] LABS: Abs Immature Grans 0.04 10^3/uL (0.0-0.06); HCT 33.4 % (40.0-50.0); HGB 11.9 g/dL (13.5-17.5); Immature Grans % 0.6 %; MCH 33.5 pg (27.0-33.0); MCHC 35.6 % (32.0-36.0); MCV 94 fL (80-95); RBC 3.55 10^6/uL (4.36-5.78); RDW 12.2 % (11.8-14.1); RDW-SD 42.3 fL; WBC 6.41 10^3/uL (4.4-10.8)
[2025-04-21 07:05] LABS: MPV 10.1 fL (8.0-11.0); Platelet Count 76 10^3/uL (130-400)
[2025-04-21 07:06] LABS: ALT 42 U/L (16-63); AST 35 U/L (15-37); Albumin 3.1 g/dL (3.4-5.0); Alkaline Phosphatase 57 U/L (46-116); Anion Gap 8.3 mmol/L (3-11); BUN 4 mg/dL (7-18); Bilirubin, Total 0.8 mg/dL (0.2-1.0); CO2 28.7 mmol/L (21.0-32.0); Calcium 9.3 mg/dL (8.5-10.1); Chloride 98 mmol/L (98-107); Estimated GFR 125.03 (mL/min/1.73m2); Glucose 111 mg/dL (74-106); Lipase 247 U/L (<78); Potassium 3.1 mmol/L (3.5-5.1); Sodium 135 mmol/L (136-145); Total Protein 6.8 g/dL (6.4-8.2)
[2025-04-21 07:13] VITALS: BP 120/83; PULSE 88; RESP 17; TEMP 37.1; O2SAT 98
[2025-04-21 07:20] LABS: Folate 15.7 ng/mL (8.6-20.0)
[2025-04-21 07:38] LABS: Iron 61 ug/dL (65-175); Total Iron Binding Capacity 217 ug/dL (250-450); Transferrin Sat 28 % (20-55)
[2025-04-21] MEDS: Enoxaparin 40 MG/0.4 ML SYR SC (10:34)
[2025-04-21] MEDS: Normal Saline Flush 10 ML SYR IVP (10:35)
--- NOTE | 2025-04-21 11:42 | W.PM.DS.N ---
Date of service: 04/21/25 Time of Service: 11:42 DS: Diagnosis Discharge Diagnosis (1) Alcoholic pancreatitis: Status: Acute (2) Alcohol withdrawal: Status: Acute (3) Nicotine addiction: Status: Acute (4) Alcoholism, chronic: Status: Acute (5) DVT prophylaxis: Status: Resolved Discharge Plan Disposition Condition: Stable Discharge Details Reason For Visit: Pancreatitis, Alcohol Intoxication Admit Date/Time: 04/18/25 12:18 Admit Provider: Augilar William Attending Provider: Aguilar William Primary Care Provider: OWEN GARRISON Home Meds and New Rx's Prescriptions: No Action meclizine 25 mg tablet 25 mg PO TID PRN (Reason: dizziness) Qty: 30 0RF calcium PO BID Rx Instructions: OTC, unknown strength. Takes BID potassium PO BID Rx Instructions: OTC, unknown strength. Reports he takes BID DS: Summary Quality:SDOH Health Related Social Needs: Health related social needs house/econ circumstance finding work lonely/isolated Health related social needs details Worried about not having enough money when he leaves hospital Health related social needs details: Worried about not having enough money when he leaves hospital Exam Narrative Exam Narrative: heent-ncat mmm neck-no lad no jvd cv-rrr no mrg lungs-ctab abd-sndnt ext-no cce DS: Data Vitals/I&O Vitals and I&O: Vital Signs Temperature 37.1 C 04/21/25 07:13 Temperature Source Temporal Artery Scan 04/21/25 07:13 Pulse 88 04/21/25 07:13 Pulse Rhythm Regular 04/18/25 17:17 Pulse 81 04/18/25 13:40 Respiratory Rate 17 04/21/25 07:13 Respiratory Effort Normal 04/18/25 17:17 Respiratory Depth Normal 04/18/25 17:17 Respiratory Pattern Normal 04/18/25 17:17 Blood Pressure 120/83 04/21/25 07:13 Blood Pressure Mean 95 04/21/25 07:13 Blood Pressure Position Sitting 04/18/25 10:26 Pulse Oximetry 98 04/21/25 07:13 Oxygen Delivery Method Room Air 04/21/25 07:13 Oxygen Flow Rate 0 04/21/25 07:13 Pain Level 0 04/21/25 07:13 Intake & Output 04/20/25 04/20/25 04/21/25 11:59 23:59 11:59 Intake Total 1210 / 3223.2 2012.3.2 1012 / 1012 Output Total 1974 950 / 950 Balance 685 / 1248.2 1513.2 / 1248.2 62 / 62 Weight 62.8 kg Intake: IV 1010 / 3023.2 2012. / 3023.2 1000 / 1000 Oral 200 / 200 Output: Urine 1974 / 1974 950 / 950 Other: Urine Color Straw Light Ama Yellow Urine Appearance Clear Clear Urine Odor Strong Stool Size Large Stool Characteristics Formed Data Completed and Pending Labs on day of discharge: Labs from last 24 hours 04/21/25 06:25 WBC 6.41 RBC 3.55 L Hgb 11.9 L Hct 33.4 L MCV 94 MCH 33.5 H MCHC 35.6 RDW 12.2 Plt Count 76 L MPV 10.1 Immature Gran % 0.6 Neutrophils % 60.2 Lymphocytes % 26.7 Monocytes % 10.9 Eosinophils % 1.1 Basophils % 0.5 Nucleated RBC % 0.0 Absolute Neutrophils 3.86 Absolute Lymphocytes 1.71 Absolute Monocytes 0.70 Absolute Eosinophils 0.07 Absolute Basophils 0.03 Sodium 135 L Potassium 3.1 L Chloride 98 Carbon Dioxide 28.7 Anion Gap 8.3 BUN 4 L Creatinine 0.5 L Est GFR (CKD-EPI 2020) 125.03 Glucose 111 H Calcium 9.3 Iron 61 L TIBC 217 L Transferrin % Sat 28 Total Bilirubin 0.8 AST 35 ALT 42 Alkaline Phosphatase 57 Total Protein 6.8 Albumin 3.1 L Lipase 247 H Folate 15.7 PFSH All Active Problems (Updated 04/18/25 @ 15:25 by Aguilar William) Pancreatitis (Chronic) Alcohol intoxication (Acute) Alcoholic pancreatitis (Acute) Alcohol withdrawal (Acute) Alcoholism, chronic (Acute) Pancreatitis (Chronic) Gallbladder polyp (Acute) Postprandial RUQ pain (Acute) Gallbladder disease (Acute) Dizziness (Acute) Nicotine addiction (Acute) Avascular necrosis of bone of left hip (Acute) Hepatic steatosis (Acute) Impairment of balance (Acute) Chronic vertigo (Acute) Medical History Anxiety Acid reflux 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 Osteonecrosis bone of left hip 04/23/24 CT evidence of a vascular necrosis of left hip Alcohol abuse Gallstone (~08/2024) Alcoholic pancreatitis Surgical History 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) Cyst of right upper eyelid Family History Maternal Grandfather Alcohol abuse Maternal Uncle Alcohol abuse Social History (Updated 04/18/25 @ 15:15 by Aguilar William) Smoking/Tobacco Use Status: Current every day Tobacco Type: cigarettes Years smoked: 25 Smoking risk assessment performed?: Yes Alcohol Intake: current Alcohol Intake frequency: 3 or more drinks per day Counseling given: Yes Drug use: Rarely Substance use type: does not use Housing: apartment 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
--- NOTE | 2025-04-21 12:00 | DSE_ITS ---
Date of service: 04/21/25 Time of Service: 12:00 DS: Diagnosis Discharge Diagnosis (1) Alcoholic pancreatitis: Status: Acute (2) Alcohol withdrawal: Status: Acute (3) Nicotine addiction: Status: Acute (4) Alcoholism, chronic: Status: Acute (5) DVT prophylaxis: Status: Resolved Discharge Plan Disposition Patient Disposition: Home Condition: Improving Discharge Details Reason For Visit: Pancreatitis, Alcohol Intoxication Admit Date/Time: 04/18/25 12:18 Admit Provider: Aguilar William Attending Provider: Aguilar William Primary Care Provider: OWEN GARRISON [facility] Course Hospital Course: This is a 50-year-old gentleman who was admitted on 18 April for pancreatitis as well as alcohol withdrawal. On admission his lipase was over 400 and he was having significant right upper quadrant pain. Over the ensuing 3 days he improved regards to his symptomology and on 21 April has to be discharged home. At the time of discharge his pain was controlled with oral pain medications, he was tolerating a regular diet, and his lipase had improved. It was not at baseline but was trending towards resolution. The patient will go to [facility] for therapy in regards to his alcoholism. In reviewing his diagnostic data he did have mild anemia that will need to be worked up in the outpatient setting with a hemoglobin of 11.0 and hematocrit 33.4. Patient did have thrombocytopenia pi?a with a platelet count on discharge of 76. Most likely this is due to his alcohol use. Patient not have any active bleeding. Sodium levels 135 with a potassium of 3.1 so I will send some potassium replacement as well. Mag and Phos were also low so he will need replacement of these electrolytes as well iron level 61 and I will send over iron replacement as well. Patient had a mild transaminitis on admission but this had resolved by the time he was discharged. Ammonia levels were within normal limits. As mentioned on admission his lipase was 412 on discharge 247. Terms of imaging chest x-ray was done on admission which was benign. No new microbiology is pending. He will be discharged in good health. He will be sent home with prescriptions for magnesium phosphorus potassium and iron as well as pain meds and antiemetics. Recommendations for Follow Up Recommended tests to be ordered by follow up provider: cbc/cmp/iron/mag/phos in 2-4 weeks Home Meds and New Rx's Prescriptions: New potassium chloride 20 mEq packet 20 meq PO BID 30 Days Qty: 60 0RF magnesium chloride 64 mg tablet,delayed release (DR/EC) 64 mg PO DAILY Qty: 30 0RF Phosphorous 250 mg tablet 1 tab PO DAILY Qty: 30 0RF ferrous sulfate [Iron (ferrous sulfate)] 325 mg (65 mg iron) tablet 325 mg PO BID Qty: 60 0RF oxycodone 5 mg capsule 5 mg PO Q8H PRNQty: 10 0RF ondansetron HCl 4 mg tablet 4 mg PO Q8H PRN4 Days Qty: 7 0RF Continued calcium PO BID Rx Instructions: OTC, unknown strength. Takes BID Discontinued meclizine 25 mg tablet 25 mg PO TID PRN (Reason: dizziness) Qty: 30 0RF potassium PO BID Rx Instructions: OTC, unknown strength. Reports he takes BID Discharge Instructions Referrals: OWEN GARRISON [facility] [Primary Care Provider, Medicine] Referral Note: follow up in 5-7 days Activity:: Activity as Tolerated Equipment/Supplies:: No Equipment Needed Diet:: As Tolerated DS: Summary Time Spent with Patient providing and/or coordinating discharge services: Greater than 30 minutes Status at Discharge Functional status at discharge: independent ambulation Overall status at discharge: patient is back to baseline Mental Status: mental status grossly normal Speech and Movement: speech and movement normal Mood: congruent mood Affect: normal affect Quality:SDOH Health Related Social Needs: Health related social needs house/econ circumstance fi nding work l onely/isolated Health related social needs details Worried about not having enough money when he leaves hospital Health related social needs details: Worried about not having enough money when he leaves hospital Exam Narrative Exam Narrative: heent-ncat mmm neck-no lad no jvd cv-rrr no mrg lungs-ctab abd-sndnt ext-no cce Psych Mental Status: mental status grossly normal Speech and Movement: speech and movement normal Mood: congruent mood Affect: normal affect DS: Data Vitals/I&O Vitals and I&O: Vital Signs Temperature 37.1 C 04/21/25 07:13 Temperature Source Temporal Artery Scan 04/21/25 07:13 Pulse 88 04/21/25 07:13 Pulse Rhythm Regular 04/18/25 17:17 Pulse 81 04/18/25 13:40 Respiratory Rate 17 04/21/25 07:13 Respiratory Effort Normal 04/18/25 17:17 Respiratory Depth Normal 04/18/25 17:17 Respiratory Pattern Normal 04/18/25 17:17 Blood Pressure 120/83 04/21/25 07:13 Blood Pressure Mean 95 04/21/25 07:13 Blood Pressure Position Sitting 04/18/25 10:26 Pulse Oximetry 98 04/21/25 07:13 Oxygen Delivery Method Room Air 04/21/25 07:13 Oxygen Flow Rate 0 04/21/25 07:13 Pain Level 0 04/21/25 07:13 Intake & Output 04/20/25 04/21/25 04/21/25 23:59 11:59 23:59 Intake Total 2012.3.2 1012 / 1012 Output Total / 1974 950 / 950 Balance 1513.2 / 1248.2 62 / 62 Intake: IV 2012.3.2 1000 / 1000 Oral Output: Urine / 1974 950 / 950 Other: Urine Color Light Ama Yellow Urine Appearance Clear Stool Size Large Stool Characteristics Formed Data Completed and Pending Labs on day of discharge: Labs from last 24 hours 04/21/25 06:25 WBC 6.41 RBC 3.55 L Hgb 11.9 L Hct 33.4 L MCV 94 MCH 33.5 H MCHC 35.6 RDW 12.2 Plt Count 76 L MPV 10.1 Immature Gran % 0.6 Neutrophils % 60.2 Lymphocytes % 26.7 Monocytes % 10.9 Eosinophils % 1.1 Basophils % 0.5 Nucleated RBC % 0.0 Absolute Neutrophils 3.86 Absolute Lymphocytes 1.71 Absolute Monocytes 0.70 Absolute Eosinophils 0.07 Absolute Basophils 0.03 Sodium 135 L Potassium 3.1 L Chloride 98 Carbon Dioxide 28.7 Anion Gap 8.3 BUN 4 L Creatinine 0.5 L Est GFR (CKD-EPI 2020) 125.03 Glucose 111 H Calcium 9.3 Iron 61 L TIBC 217 L Transferrin % Sat 28 Total Bilirubin 0.8 AST 35 ALT 42 Alkaline Phosphatase 57 Total Protein 6.8 Albumin 3.1 L Lipase 247 H Folate 15.7 PFSH All Active Problems (Updated 04/18/25 @ 15:25 by Aguilar William) Pancreatitis (Chronic) Alcohol intoxication (Acute) Alcoholic pancreatitis (Acute) Alcohol withdrawal (Acute) Alcoholism, chronic (Acute) Pancreatitis (Chronic) Gallbladder polyp (Acute) Postprandial RUQ pain (Acute) Gallbladder disease (Acute) Dizziness (Acute) Nicotine addiction (Acute) Avascular necrosis of bone of left hip (Acute) Hepatic steatosis (Acute) Impairment of balance (Acute) Chronic vertigo (Acute) Medical History Anxiety Acid reflux 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 Osteonecrosis bone of left hip 04/23/24 CT evidence of a vascular necrosis of left hip Alcohol abuse Gallstone (~08/2024) Alcoholic pancreatitis Surgical History 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) Cyst of right upper eyelid Family History Maternal Grandfather Alcohol abuse Maternal Uncle Alcohol abuse Social History (Updated 04/18/25 @ 15:15 by Aguilar William) Smoking/Tobacco Use Status: Current every day Tobacco Type: cigarettes Years smoked: 25 Smoking risk assessment performed?: Yes Alcohol Intake: current Alcohol Intake frequency: 3 or more drinks per day Counseling given: Yes Drug use: Rarely Substance use type: does not use Housing: apartment 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 Time Spent with Patient Time Spent with Patient: 45-69 minutes Time was spent: preparing to see the patient(eg.review tests), obtaining and/or reviewing separately otained hiistory, ordering medications,tests, procedures, referring, communicating with other health critical care specialist, indepentently interpreting results, counseling the patient and care coordination
== END 2025-04-21 13:11 | disposition home or self-care (01) | DRG 439 ==
LOC: ER 12:18 → MS 14:07
PROVIDERS: Admitting Provider Family Medicine; Emergency Provider Student in an Organized Health Care Education/Training Program; PCP Nurse Practitioner Family; Responsible Provider Hospitalist; Visit Provider Family Medicine
DX: K85.20 Alcohol induced acute pancreatitis without necrosis or infection (principal); F10.239 Alcohol dependence with withdrawal, unspecified; M87.852 Other osteonecrosis, left femur; F17.210 Nicotine dependence, cigarettes, uncomplicated; R42 Dizziness and giddiness; K76.0 Fatty (change of) liver, not elsewhere classified; F41.9 Anxiety disorder, unspecified; K21.9 Gastro-esophageal reflux disease without esophagitis; R07.89 Other chest pain; D52.0 Dietary folate deficiency anemia; Z96.641 Presence of right artificial hip joint; K80.20 Calculus of gallbladder without cholecystitis without obstruction; R45.89 Other symptoms and signs involving emotional state; D69.59 Other secondary thrombocytopenia; R74.01 Elevation of levels of liver transaminase levels; Z59.89 Other problems related to housing and economic circumstances; Z56.9 Unspecified problems related to employment; Y90.7 Blood alcohol level of 200-239 mg/100 ml
CPT/HCPCS: 00123; 36415; 80048; 80053; 83690; 85027; 93005; 96361; 96365; 96375; 99285; J1650; 71045; 80320; 82607; 82746; 83540; 83550; 83735; 84100; 84484; 85025; 93010; 99222; 99231; 99232; 99239; J0780; J1885; J2270; J2405; J2470; J2560; J3010; J3411; J3475

== ENCOUNTER 2025-06-19 10:40 | Emergency (ER) | payer MEDICAID, SELFPAY ==
[2025-06-19 10:48] VITALS: BP 126/88; PULSE 90; RESP 20; TEMP 36.7; O2SAT 98
[2025-06-19 10:51] VITALS: BP 126/88; PULSE 90; RESP 20; TEMP 36.7; O2SAT 98
== END 2025-06-19 11:42 | disposition left against medical advice (07) ==
PROVIDERS: PCP Nurse Practitioner Family
DX: K59.00 Constipation, unspecified (principal); Z53.21 Procedure and treatment not carried out due to patient leaving prior to being seen by health care provider

== ENCOUNTER 2025-06-20 00:06 | Emergency (ER) | payer MEDICAID, SELFPAY ==
[2025-06-20] VITALS (39 sets, daily range): BP systolic 110–144; BP diastolic 63–93; PULSE 78–122; RESP 14–23; TEMP 36.9; O2SAT 88–96
--- NOTE | 2025-06-20 00:12 | W.ED.GENAD ---
Discharge Plan Disposition Patient Disposition: Home Condition: Stable Discharge Details Clinical Impression: Alcoholism, chronic, Constipation Primary Care Provider: OWEN GARRISON ED Provider: Dane Lagos Home Meds and New Rx's Prescriptions: No Action No Known Home Meds Discharge Instructions Instructions: Constipation, Adult ED Additional Instructions: Continue up to 5-15 mg (1-3 tablets) every 6-8 hours as needed for relief of constipation. You can also use fleets enemas from the store, as directed on the packaging, to help promote passage of stool out of your rectum. You can return to the emergency room for any new concerns or sudden changes in your health problems. HPI General Date/Time Provider Initiated Documentation: 06/20/25 00:12. HPI Narrative: The patient is a 50-year-old male, with a past medical history significant for alcohol misuse disorder, pancreatitis intermittently, and frequent visits related to either intoxication or alcohol withdrawal, who presents to the emergency department this evening complaining of 2 days of constipation. The patient reports that he has an urge to have a bowel movement and cannot. The patient states that he is not having any output, either liquid diarrhea or solid stool for the last 2 days. The patient denies any rectal bleeding. Patient tells me that he does not think he has any hemorrhoids or rectal prolapse present. The patient states that it hurts to try taking, and he cannot get anything out. He denies having any other abdominal pain, nausea or vomiting, or fevers. The patient tells me that he is having several drinks tonight. Related Data Home Medications Medication Instructions Recorded Confirmed Unknown [No Known Home Meds] 06/19/25 06/19/25 Allergies Allergy/AdvReac Type Severity Reaction Status Date / Time hydromorphone (From Dilaudid) AdvReac Intermediate Other (See Verified 06/19/25 10:53 Comment) General Stated Complaint: Abd Prob SARAH: 3 Exam Const General: cooperative, no acute distress and intoxicated appearing Eyes EOM: nystagmus Resp Effort & Inspection: normal respiratory effort, no audible wheezes and no cough Auscultation: clear to auscultation bilaterally Cardio Rate: tachycardic Rhythm: regular rhythm and abnormal rhythm Heart Sounds: S1 normal and S2 normal GI Inspection: normal to inspection Palpation: soft Auscultation: normal bowel sounds Rectal Exam: tenderness (Refused rectal exam, external superior aspect of anus has fullness/pain ) Neuro General: patient alert, patient awake, patient oriented x3 and moves all extremities Cranial Nerves: nystagmus vertical Speech: abnormal speech slurred Course Vital Signs Vital signs: Vital Signs Temperature 36.9 C 06/20/25 00:00 Pulse 113 H 06/20/25 00:00 Respiratory Rate 18 06/20/25 00:00 Blood Pressure 144/93 H 06/20/25 00:00 Pulse Oximetry 95 06/20/25 00:00 Temperature 36.9 C 06/20/25 00:00 Temperature Source Oral 06/20/25 00:00 Pulse 113 H 06/20/25 00:00 Respiratory Rate 18 06/20/25 00:00 Blood Pressure 144/93 H 06/20/25 00:00 Blood Pressure Position Sitting 06/20/25 00:00 Pulse Oximetry 95 06/20/25 00:00 Oxygen Delivery Method Room Air 06/20/25 00:00 Oxygen Flow Rate 0 06/20/25 00:00 Pain Level 9 06/20/25 00:00 Medical Decision Making The patient was seen and examined. He has more complaints of tenesmus than actual constipation, he will say that he has not had stool out for 2 days. Patient feels as though he simply needs to have a bowel movement. The clinical examination of his anus and rectum was limited by the patient's refusal to allow me to perform a thorough digital rectal exam, however the patient did have some fullness at the superior aspect of the anus in the gluteal cleft. This area was significantly tender to palpation and concerned that there could potentially be a perirectal abscess present. It is however difficult to determine this based on limitations of the physical exam . the patient will have a CT scan of the abdomen and pelvis to assess for colitis, diverticulitis, or deeper space infections in the pelvis. If none are present, or simple constipation, patient be treated with oral bisacodyl and PEG solution. 0700 - The CT scan was neagtive for acute pathology and the patient did weel overnight. Home this morning with RCT with plans for oral cathartic medications to improve constipation. Quality:SDOH Health Related Social Needs: Health related social needs house/econ circumstance finding work lonely/isolated Health related social needs details Worried about not having enough money when he leaves hospital PFSH All Active Problems (Updated 06/20/25 @ 01:51 by Dane Lagos MD) Constipation (Acute) Pancreatitis (Chronic) Alcohol intoxication (Acute) Alcoholism, chronic (Acute) Pancreatitis (Chronic) Gallbladder polyp (Acute) Postprandial RUQ pain (Acute) Gallbladder disease (Acute) Dizziness (Acute) Nicotine addiction (Acute) Avascular necrosis of bone of left hip (Acute) Hepatic steatosis (Acute) Impairment of balance (Acute) Chronic vertigo (Acute) Medical History Anxiety Acid reflux 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 Osteonecrosis bone of left hip 04/23/24 CT evidence of a vascular necrosis of left hip Alcohol abuse Gallstone (~08/2024) Alcoholic pancreatitis Surgical History 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) Cyst of right upper eyelid Family History Maternal Grandfather Alcohol abuse Maternal Uncle Alcohol abuse Social History (Updated 04/18/25 @ 15:15 by Aguilar William) Smoking/Tobacco Use Status: Current every day Tobacco Type: cigarettes Years smoked: 25 Smoking risk assessment performed?: Yes Alcohol Intake: current Alcohol Intake frequency: 3 or more drinks per day Counseling given: Yes Drug use: Rarely Substance use type: does not use Housing: apartment 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 PAWSS Have you Been Recently Intoxicated or Drunk Within the Last 30 days?: Yes Have you Ever Experienced Previous Episodes of Alcohol Withdrawal?: Yes Have you ever Experienced Withdrawal Seizures?: Yes Have you ever Experienced Delirium Tremens(DT)s?: Yes Have you ever undergone Alcohol Rehabilitation Treatment (i.e, inpt ot outpatient treatment programs)?: Yes Have you ever Experienced Blackouts?: Yes Have you ever Combined Alcohol with other Downers within the last 90 days?: No Have you ever Combined Alcohol with any other Substance of Abuse during the last 90 days?: No Positive Blood Alcohol level on Presentation? [PCS.BAL]: Yes Evidence of Increased Autonomic Activity (i.e. HR>120, tremor, sweating, agitation, nausea)?: Yes Result: 8
[2025-06-20 00:44] LABS: Abs Immature Grans 0.02 10^3/uL (0.0-0.06); HCT 38.1 % (40.0-50.0); HGB 13.5 g/dL (13.5-17.5); Immature Grans % 0.2 %; MCH 33.2 pg (27.0-33.0); MCHC 35.4 % (32.0-36.0); MCV 94 fL (80-95); MPV 9.1 fL (8.0-11.0); Platelet Count 248 10^3/uL (130-400); RBC 4.07 10^6/uL (4.36-5.78); RDW 12.4 % (11.8-14.1); RDW-SD 42.9 fL; WBC 8.92 10^3/uL (4.4-10.8)
[2025-06-20] MEDS: Ketorolac 30 MG/ML VIAL IVP (00:49)
[2025-06-20] MEDS: Normal Saline 1,000 ML 1000 ML IV (00:50)
[2025-06-20 00:54] LABS: Anion Gap 15.5 mmol/L (3-11); BUN 11 mg/dL (7-18); CO2 24.5 mmol/L (21.0-32.0); Calcium 9.3 mg/dL (8.5-10.1); Chloride 98 mmol/L (98-107); Glucose 236 mg/dL (74-106); Potassium 3.0 mmol/L (3.5-5.1); Sodium 138 mmol/L (136-145)
--- NOTE | 2025-06-20 01:28 | DI.CT_ITS ---
Exam(s) CT ABDOMEN PELVIS W EXAM: CT ABDOMEN PELVIS W CLINICAL HISTORY: rectal pain, swelling, exclude perirectal abscess. TECHNIQUE: Imaging Protocol: Axial computed tomography images with coronal and sagittal reformatted images were created and reviewed CONTRAST MATERIAL: Intravenous: Omnipaque-350 75cc Oral: None COMPARISON: CT CT THORAX ABD/PEL CTA from 03/22/2025 FINDINGS: VISUALIZED LUNG BASES: No nodules nor pleural effusions evident. ABDOMEN: There is no ascites. LIVER: Liver is hypodense implying steatosis. There no discrete focal hepatic lesions. No dilated intrahepatic ducts. GALLBLADDER/BILIARY: No obvious gallbladder pathology. CBD is not dilated. PANCREAS: There are 2 small calcifications in the pancreas at junction of the head and uncinate process, unchanged. Pancreatic duct is not dilated. There are no pancreatic masses evident. SPLEEN: Spleen is not enlarged. No obvious intrasplenic lesions. Splenic and portal veins are patent. ADRENALS: There are no significant adrenal masses. KIDNEYS:There is 1.6 cm exophytic cyst off the anterior aspect of the upper pole of the left kidney, unchanged. No other significant focal renal findings. No solid renal masses. No calculi nor hydronephrosis.. ABDOMINAL AORTA: Abdominal aorta is not enlarged. LYMPH NODES:There is no retroperitoneal nor paraaortic adenopathy. ABDOMINAL WALL: No evidence of significant anterior abdominal wall nor inguinal hernia. GI: There is no evidence of bowel obstruction, free air, nor abscess. No evidence of perianal abscess, as per request. Moderate increased amount of fecal material noted in the rectum which exhibits 5 cm diameter but without significant dilatation of the large bowel above this level. PELVIS: GI: No evidence of appendicitis.No evidence of sigmoid diverticulitis. LYMPH NODES: There is no intrapelvic nor inguinal adenopathy. REPRODUCTIVE: Prostate not enlarged. URINARY BLADDER: Bladder is moderately distended. No masses nor calculi therein. In OSSEOUS: There is right hip prosthesis. There is avascular necrosis of the left femoral head. Sacroiliac joints appear unremarkable. No compression fractures. No listhesis. No significant osseous lesions. IMPRESSION: 1. No evidence of perianal abscess nor inflammatory streaking in the perianal tissues, as per request. 2. The rectum is distended to 5 cm with formed stool but doubtful for impaction given that there is no dilatation of the colon above this level. 3. There is moderate distension of the urinary bladder. The prostate gland is not enlarged. 4. No acute intra-abdominal findings. There is avascular necrosis of the left femoral head again noted and there is a right hip prosthesis again evident. Preliminary of V rad report was reviewed RADIATION DOSE DELIVERED: 382.34mGy.cm Total DLP DATA REPOSITORY: All CT scans at this facility are submitted to the National Radiology Data Registry (NRDR) Dose Index Registry (DIR) with the [employer] (ACR). RADIATION OPTIMIZATION: All CT scans at this facility use at least one of these dose optimization techniques: automated exposure control; mA and/or kV adjustment per patient size (includes targeted exams where dose is matched to clinical indication); or iterative reconstruction.
[2025-06-20] MEDS: Omnipaque 350 MG/ML 100 ML BTL IJ (01:31)
[2025-06-20] MEDS: Normal Saline Flush 10 ML SYR IVP (01:32)
[2025-06-20] MEDS: Normal Saline - Diluent 50 ML VIAL IJ (01:32)
--- NOTE | 2025-06-20 01:54 | DI.VRAD_ITS ---
PROCEDURE INFORMATION: Exam: CT Abdomen And Pelvis With Contrast Exam date and time: 06/20/2025 12:50 AM Age: 50 years old Clinical indication: Mass, lump, or swelling; Other: Rectum; Abdominal pain; Prior surgery; Surgery date: 6+ months; Surgery type: Hip replacement; Rectal pain, swelling, exclude perirectal abscess TECHNIQUE: Imaging protocol: Computed tomography of the abdomen and pelvis with contrast. Radiation optimization: All CT scans at this facility use at least one of these dose optimization techniques: automated exposure control; mA and/or kV adjustment per patient size (includes targeted exams where dose is matched to clinical indication); or iterative reconstruction. Contrast material: [id number]; Contrast volume: 75 ml; Contrast route: INTRAVENOUS (IV); COMPARISON: CT THORAX ABD/PEL CTA 03/22/2025 6:59 AM FINDINGS: Liver: Hepatic steatosis. Gallbladder and biliary ducts: Normal. No calcified stones. No ductal dilation. Pancreas: Unremarkable. Spleen: Normal. Adrenal glands: Normal. No mass. Kidneys and ureters: Low-attenuation left renal lesion does not meet strict CT criteria for a cyst and is indeterminate, potentially a hyperdense cyst. Stomach and bowel: Rectum is distended to 4.5 cm with formed stool which may contribute to patient discomfort but is unlikely to be impacted. No bowel wall thickening or intestinal obstruction. No pneumatosis or portal/mesenteric venous gas. Appendix: Normal appendix. Intraperitoneal space: No pneumoperitoneum or abscess. Vasculature: See Stomach and bowel finding. Lymph nodes: Unremarkable. Urinary bladder: Unremarkable as visualized. Reproductive: Unremarkable as visualized. Bones/joints: Right hip prosthesis. Avascular necrosis of the right femoral head. Soft tissues: No perianal abscess or inflammation. IMPRESSION: 1. No perianal abscess or inflammation. 2. Rectum is distended to 4.5 cm with formed stool which may contribute to patient discomfort but is unlikely to be impacted. 3. Avascular necrosis of the right femoral head. 4. No acute findings. Dictated and Authenticated by: Wayne Bird MD. Orderin Demond Vela MD
[2025-06-20] MEDS: Bisacodyl 5 MG TABEC 15 MG PO (05:55)
== END 2025-06-20 07:19 | disposition home or self-care (01) ==
PROVIDERS: Emergency Provider Emergency Medicine Emergency Medical Services; PCP Nurse Practitioner Family
DX: K59.00 Constipation, unspecified (principal); F10.20 Alcohol dependence, uncomplicated
CPT/HCPCS: 99284; 99285; 96374; 80048; 96361; 74177; 85025; J1885; J3490

== ENCOUNTER 2025-06-21 09:48 | Emergency (ER) | payer MEDICAID, SELFPAY ==
--- NOTE | 2025-06-21 09:45 | DI.RAD_ITS ---
Exam(s) XR CHEST 2V PA LATERAL EXAM: XR CHEST 2V PA LATERAL CLINICAL HISTORY: Chest pain. TECHNIQUE: 2D digital imaging was performed. COMPARISON: CR XR PORTABLE CHEST AP from 04/18/2025 FINDINGS: 2 views: Heart size is normal. The mediastinum is not widened. Lungs are clear. No infiltrates nor pleural effusions. IMPRESSION: No acute pulmonary findings. DATA REPOSITORY: RADIATION DOSE DELIVERED:
--- NOTE | 2025-06-21 09:45 | RT.EKG_ITS ---
APPROVED REPORT Exam: Resting ECG Reason for Exam: Chest Pain Patient Location: E HR:80 bpm ECG Measurements Heart Rate 80 AXIS NC 189 P 18 QRSd 93 QRS 58 QT 374 T 66 QTc 432 Conclusion Sinus rhythm, rate 80 No interval abnormalities Concave ST elevation <1mm, diffuse leads. Unlikely STEMI, unchanged from priors T wave inversion aVL
[2025-06-21 09:51] VITALS: BP 126/89; PULSE 90; RESP 17; TEMP 36.4; O2SAT 98
[2025-06-21 10:23] LABS: Abs Immature Grans 0.03 10^3/uL (0.0-0.06); HCT 39.0 % (40.0-50.0); HGB 13.9 g/dL (13.5-17.5); Immature Grans % 0.4 %; MCH 33.2 pg (27.0-33.0); MCHC 35.6 % (32.0-36.0); MCV 93 fL (80-95); MPV 9.3 fL (8.0-11.0); Platelet Count 227 10^3/uL (130-400); RBC 4.19 10^6/uL (4.36-5.78); RDW 12.4 % (11.8-14.1); RDW-SD 42.7 fL; WBC 8.41 10^3/uL (4.4-10.8)
--- NOTE | 2025-06-21 10:28 | DI.VRAD_ITS ---
PROCEDURE INFORMATION: Exam: XR Chest Exam date and time: 06/21/2025 10:25 AM Age: 50 years old Clinical indication: Pain; Chest pressure TECHNIQUE: Imaging protocol: Radiologic exam of the chest. Views: 2 views. COMPARISON: CR XR PORTABLE CHEST AP 04/18/2025 10:58 AM FINDINGS: Lungs: No focal consolidation seen. Pleural spaces: No large pleural effusion seen. Heart/Mediastinum: No cardiomegaly. Bones/joints: No acute abnormality. IMPRESSION: No acute findings to explain reported symptoms. Dictated and Authenticated by: Monse Rasmussen MD. Orderin St. Ravi Hopkins MD
[2025-06-21 10:43] LABS: ALT 25 U/L (16-63); AST 27 U/L (15-37); Albumin 4.0 g/dL (3.4-5.0); Alkaline Phosphatase 100 U/L (46-116); Anion Gap 19.8 mmol/L (3-11); BUN 6 mg/dL (7-18); Bilirubin, Total 0.4 mg/dL (0.2-1.0); CO2 22.2 mmol/L (21.0-32.0); Calcium 9.3 mg/dL (8.5-10.1); Chloride 101 mmol/L (98-107); Glucose 107 mg/dL (74-106); Lipase 19 U/L (<78); Magnesium 1.7 mg/dL (1.8-2.4); Potassium 3.4 mmol/L (3.5-5.1); Sodium 143 mmol/L (136-145); Total Protein 8.4 g/dL (6.4-8.2); Troponin I 5 ng/L (<or=76)
[2025-06-21 10:45] VITALS: BP 120/60; PULSE 79; RESP 17; O2SAT 95
[2025-06-21] MEDS: MAGNESIUM SULFATE 8.12 MEQ, MULTIVITAMIN 10 ML, THIAMINE 100 MG, FOLIC ACID 1 MG in Nor... 168.867 MG IV (10:49)
[2025-06-21] MEDS: Nicotine 14 MG/24 HR PATCH TD (10:49)
--- NOTE | 2025-06-21 11:22 | W.ED.GENAD ---
Discharge Plan Disposition Patient Disposition: Against Medical Advice Condition: Stable Discharge Details Clinical Impression: Alcohol intoxication, Chest pain Primary Care Provider: OWEN GARRISON ED Provider: Kellie Wilkinson Home Meds and New Rx's Prescriptions: No Action No Known Home Meds Discharge Data Discharge Date/Time-TO BE ENTERED AT DEPARTURE: 06/21/25 12:44 HPI General Mode of arrival: EMS. Date/Time Provider Initiated Documentation: 06/21/25 11:24. Limitations to Documentation: no limitations. Information obtained by: patient, EMS and old records reviewed. HPI Narrative: This is a 50-year-old male patient with a history of alcohol use disorder, alcoholic pancreatitis, and a history of alcohol withdrawal without known history of alcohol withdrawal seizures, presenting for evaluation of alcohol intoxication. The patient left our facility just a few hours ago after being seen for constipation and rectal discomfort. Per EMS report, he consumed approximately 1/2 gallon of vodka between 7 AM and 9 AM, and contacted them for transport to the hospital for assistance with sobriety resources. He has been awake and appropriately conversant, hemodynamically stable through their transport, though he did complain to EMS that he was experiencing chest pain and pain all over, with a brief episode of shortness of breath that resolved spontaneously. They performed a twelve-lead EKG that did not show any evidence of STEMI. The patient reports to this provider that he wants help with sobriety resources, states that he has been admitted in the past, reports that he is not experiencing withdrawal symptoms at this time given his acute intoxication. He typically drinks about half a gallon of hard liquor per day. States that that pain in my body is not my heart, do not worry about it. Otherwise denies acute symptoms Related Data Home Medications Medication Instructions Recorded Confirmed Unknown [No Known Home Meds] 06/19/25 06/19/25 Allergies Allergy/AdvReac Type Severity Reaction Status Date / Time hydromorphone (From Dilaudid) AdvReac Intermediate Other (See Verified 06/19/25 10:53 Comment) General Stated Complaint: ETOHWithdr SARAH: 3 Exam Narrative Exam Narrative: Gen: Awake and alert, in no apparent distress HEENT: Non-icteric sclera Neck: Supple Lungs: No apparent respiratory distress, normal respiratory effort. Lung sounds clear and equal bilaterally without wheezes, rhonchi, rales CV: Appears well perfused, heart with regular rate and rhythm, strong distal pulses. No murmurs auscultated Abdomen: Non-distended, soft, nontender MSK: Moves 4 extremities without apparent limitation in ROM. No peripheral edema Skin: Visualized skin without rashes, cyanosis. Neuro: Normal Gait, no obvious focal deficits or facial asymmetry. Speaks in full, clear sentences. Psych: Appropriate for situation. Course Vital Signs Vital signs: Vital Signs Temperature 36.4 C 06/21/25 09:51 Pulse 90 06/21/25 09:51 Respiratory Rate 17 06/21/25 09:51 Blood Pressure 126/89 06/21/25 09:51 Pulse Oximetry 98 06/21/25 09:51 Temperature 36.4 C 06/21/25 09:51 Temperature Source Oral 06/21/25 09:51 Pulse 90 06/21/25 09:51 Respiratory Rate 17 06/21/25 09:51 Respiratory Pattern Normal 06/21/25 10:11 Blood Pressure 126/89 06/21/25 09:51 Blood Pressure Position Sitting 06/21/25 09:51 Pulse Oximetry 98 06/21/25 09:51 Oxygen Delivery Method Room Air 06/21/25 09:51 Oxygen Flow Rate 0 06/21/25 09:51 Lab/Test Results Lab/Test Results: Laboratory Tests Range/Units 06/21/25 10:04 WBC (4.4-10.8) 10^3/uL 8.41 RBC (4.36-5.78) 10^6/uL 4.19 L Hgb (13.5-17.5) g/dL 13.9 Hct (40.0-50.0) % 39.0 L MCV (80-95) fL 93 MCH (27.0-33.0) pg 33.2 H MCHC (32.0-36.0) % 35.6 RDW (11.8-14.1) % 12.4 Plt Count (130-400) 10^3/uL 227 MPV (8.0-11.0) fL 9.3 Immature Gran % % 0.4 Neutrophils % % 52.1 Lymphocytes % % 38.0 Monocytes % % 5.8 Eosinophils % % 2.5 Basophils % % 1.2 Nucleated RBC % (0.0-0.3) % 0.0 Absolute Neutrophils (1.2-6.7) 10^3/uL 4.38 Absolute Lymphocytes (1.2-3.4) 10^3/uL 3.20 Absolute Monocytes (0.1-0.8) 10^3/uL 0.49 Absolute Eosinophils (0.0-0.7) 10^3/uL 0.21 Absolute Basophils (0.0-0.2) 10^3/uL 0.10 Sodium (136-145) mmol/L 143 Potassium (3.5-5.1) mmol/L 3.4 L Chloride (98-107) mmol/L 101 Carbon Dioxide (21.0-32.0) mmol/L 22.2 Anion Gap (3-11) mmol/L 19.8 H BUN (7-18) mg/dL 6 L Creatinine (0.70-1.30) mg/dL 0.6 L Est GFR (CKD-EPI 2020) (mL/min/1.73m2) 118.34 Glucose (74-106) mg/dL 107 H Calcium (8.5-10.1) mg/dL 9.3 Magnesium (1.8-2.4) mg/dL 1.7 L Total Bilirubin (0.2-1.0) mg/dL 0.4 AST (15-37) U/L 27 ALT (16-63) U/L 25 Alkaline Phosphatase (46-116) U/L 100 Troponin I (<or=76) ng/L 5 Total Protein (6.4-8.2) g/dL 8.4 H Albumin (3.4-5.0) g/dL 4.0 Lipase (<78) U/L 19 Ethyl Alcohol (<10) mg/dL 462.0 H Medical Decision Making This is a 50-year-old male patient presenting for evaluation of alcohol intoxication as well as body pain/chest pain. Differential includes but is not limited to alcohol intoxication, no evidence on my exam for alcohol withdrawal symptoms, though certainly the patient is at risk for same. Considered metabolic and electrolyte derangements, poor nutrition, dehydration. No reported associated intoxicants or ingestions, no reported suicidal or homicidal ideation to suspect just an associated psychiatric component. I certainly considered cardiac abnormalities including ACS, arrhythmia, pericarditis and myocarditis, aortic pathology, as well as has pancreatitis, chest wall tenderness and costochondritis. I provided the patient with a banana bag, and nicotine patch, and we will obtain labs to include CBC, CMP, magnesium, troponin, lipase, ethyl alcohol, and a UDS with urinalysis. An EKG was obtained which shows a sinus rhythm with some concave ST segments, similar compared to priors, with no associated reciprocal changes to significantly increase my concern for STEMI. -I reviewed the patient's laboratory studies, which show no leukocytosis, anemia, or thrombocytopenia. The patient has a very mild decrease in his potassium and magnesium. No other electrolyte derangements, no kidney dysfunction, and there is no elevation in liver enzymes. Lipase is low, but the ethanol is notably elevated to 462. The troponin was negative, at 5. I had an extended discussion with the patient regarding his goals, and he is amenable to us calling the girls swimming coach to discuss sobriety resources. Given his active intoxication, I do not feel that this patient warrants initiation of alcohol withdrawal treatment at this time, though certainly he would benefit from it and has tolerated a phenobarbital drip in the past. Unfortunately, this patient left the emergency department AMA prior to arrival of the girls swimming coach and completion of his banana bag. He did permit the tech to remove his IV before he left, but did not stay to wait for discharge paperwork. She did sign the AMA form with the nurse. I was not able to relationship counselor this patient at the time of his departure as I was in another patient's room. He was ambulatory, mentating appropriately, and not demonstrating a danger to himself or others. Kellie Wilkinson MD Quality:SDOH Health Related Social Needs: Health related social needs house/econ circumstance finding work lonely/isolated Health related social needs details Worried about not having enough money when he leaves hospital [facility] All Active Problems (Updated 06/21/25 @ 15:21 by Kellie Wilkinson MD) Chest pain (Acute) Constipation (Acute) Pancreatitis (Chronic) Alcohol intoxication (Acute) Alcoholism, chronic (Acute) Pancreatitis (Chronic) Gallbladder polyp (Acute) Postprandial RUQ pain (Acute) Gallbladder disease (Acute) Dizziness (Acute) Nicotine addiction (Acute) Avascular necrosis of bone of left hip (Acute) Hepatic steatosis (Acute) Impairment of balance (Acute) Chronic vertigo (Acute) Medical History Anxiety Acid reflux 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 Osteonecrosis bone of left hip 04/23/24 CT evidence of a vascular necrosis of left hip Alcohol abuse Gallstone (~08/2024) Alcoholic pancreatitis Surgical History 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) Cyst of right upper eyelid Family History Maternal Grandfather Alcohol abuse Maternal Uncle Alcohol abuse Social History (Updated 04/18/25 @ 15:15 by Aguilar William) Smoking/Tobacco Use Status: Current every day Tobacco Type: cigarettes Years smoked: 25 Smoking risk assessment performed?: Yes Alcohol Intake: current Alcohol Intake frequency: 3 or more drinks per day Counseling given: Yes Drug use: Never Substance use type: does not use Housing: apartment 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
== END 2025-06-21 12:44 | disposition left against medical advice (07) ==
LOC: ER 09:55
PROVIDERS: Emergency Provider Emergency Medicine; PCP Nurse Practitioner Family
DX: F10.929 Alcohol use, unspecified with intoxication, unspecified (principal); R07.9 Chest pain, unspecified; Z53.20 Procedure and treatment not carried out because of patient's decision for unspecified reasons; Z59.89 Other problems related to housing and economic circumstances; Z60.8 Other problems related to social environment
CPT/HCPCS: 99284 ×2; 36415; 80053; 83690; 93005; 71046; 80320; 83735; 84484; 85025; 93010; J3411; J3475

== ENCOUNTER 2025-06-21 18:33 | Inpatient (IN) | payer MEDICAID, SELFPAY ==
[2025-06-21] VITALS (13 sets, daily range): BP systolic 125–132; BP diastolic 74–89; PULSE 83–103; RESP 16–23; TEMP 36.8; O2SAT 94–98
--- NOTE | 2025-06-21 20:13 | NUR.NOTE ---
Nursing Note: Pt was seen here earlier today for alcohol detox and then chose to leave when began to not feel well and drank 3 to 5 buzz balls. Presented to ED again stating that he knows he needs to quit drinking but he just can't. States that he doesn't want to detox tonight any longer and declines IV, labs, and fluids. MD Floyd aware.
[2025-06-21 22:54] LABS: Abs Immature Grans 0.02 10^3/uL (0.0-0.06); HCT 42.0 % (40.0-50.0); HGB 14.8 g/dL (13.5-17.5); Immature Grans % 0.3 %; MCH 32.9 pg (27.0-33.0); MCHC 35.2 % (32.0-36.0); MCV 93 fL (80-95); MPV 9.1 fL (8.0-11.0); Platelet Count 232 10^3/uL (130-400); RBC 4.50 10^6/uL (4.36-5.78); RDW 12.4 % (11.8-14.1); RDW-SD 43.0 fL; WBC 7.54 10^3/uL (4.4-10.8)
[2025-06-21] MEDS: LORazepam 1 MG TAB PO/SL (22:56)
[2025-06-21 23:06] LABS: ALT 26 U/L (16-63); AST 29 U/L (15-37); Albumin 4.2 g/dL (3.4-5.0); Alkaline Phosphatase 104 U/L (46-116); Anion Gap 19.0 mmol/L (3-11); BUN 5 mg/dL (7-18); Bilirubin, Total 0.3 mg/dL (0.2-1.0); CO2 24.0 mmol/L (21.0-32.0); Calcium 9.6 mg/dL (8.5-10.1); Chloride 100 mmol/L (98-107); Glucose 82 mg/dL (74-106); Magnesium 1.8 mg/dL (1.8-2.4); Potassium 4.1 mmol/L (3.5-5.1); Sodium 143 mmol/L (136-145); Total Protein 9.0 g/dL (6.4-8.2); Troponin I 6 ng/L (<or=76)
[2025-06-21] MEDS: MAGNESIUM SULFATE 8.12 MEQ, MULTIVITAMIN 10 ML, THIAMINE 100 MG, FOLIC ACID 1 MG in Nor... 168.867 MG IV (23:21)
--- NOTE | 2025-06-21 23:52 | HPE_ITS ---
Date of service: 06/21/25 Time of Service: 23:52 Assessment and Plan Assessment and plan (1) Alcohol withdrawal: Start date: 06/22/25 Status: Acute Assessment and plan: This is a 50-year-old gentleman with recurrent hospitalizations for alcohol intoxication and alcoholic pancreatitis. Presently he is not having pancreatitis but is intoxicated and want to be admitted for alcohol withdrawal which will begin to occur in the ED despite his alcohol level. He will be put on the phenobarbital alcohol withdrawal protocol and monitor closely in ICU. He has never had alcohol withdrawal seizures. He did receive some IV supplements in the ED but will continue on oral supplements. He is a full code. (2) Alcoholism, chronic: Status: Chronic Assessment and plan: Patient has chronic alcoholism with poor prognosis for change. (3) Nicotine addiction: Status: Chronic Assessment and plan: Nicotine supplement with patient not smoking. History of Present Illness History of Present Illness Chief Complaint: Alcohol intoxication with desire to stop drinking concerned about withdrawl Narrative: This is a 50-year-old woman who has a long history of recurrent visits for alcoholic pancreatitis and has chronic alcoholism drinking havoc on the vodka daily and intermittently wanting to stop drinking. He reported to the ED this morning with some GI symptoms but left AMA to go drink again and then returned by calling EMS for further evaluation wanting to stop drinking later in the day. He was trying to decide whether he would actually stay and was began to have alcohol withdrawal with a CIWA score at 19 when I was called for admission for alcohol withdrawal. Patient is not having pancreatitis or abdominal discomfort at this time with his previous complaint during the day being constipation and rectal pain. He also had a brief episode of chest pain and evaluation was negative. When I saw the patient he had received Ativan and was somnolent but responsive. His alcohol was about 300 upon admission and he was still intoxicated when I saw him. Per his wishes I will admit for alcohol withdrawal protocol. Patient never had alcohol withdrawal seizures. Phenobarbital protocol will be used. He is at high risk for severe withdrawals. He has gone through inpatient treatment for alcoholism in the past but has never remained abstinent. He is a smoker and will be given nicotine supplement as well. He is on no chronic medical therapy. Patient is a full code. Review of Systems Narrative: 13 point review of systems otherwise unrevealing or stable as taken by the ED provider when patient was more awake. His social situation is I think that he is homeless. PFSH All Active Problems (Updated 06/22/25 @ 06:27 by Jer Swartz) Alcohol withdrawal (Acute) Chest pain (Acute) Constipation (Acute) Pancreatitis (Chronic) Alcohol intoxication (Acute) Alcoholism, chronic (Chronic) Pancreatitis (Chronic) Gallbladder polyp (Acute) Postprandial RUQ pain (Acute) Gallbladder disease (Acute) Dizziness (Acute) Nicotine addiction (Chronic) Avascular necrosis of bone of left hip (Acute) Hepatic steatosis (Acute) Impairment of balance (Acute) Chronic vertigo (Acute) Medical History Anxiety Acid reflux 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 Osteonecrosis bone of left hip 04/23/24 CT evidence of a vascular necrosis of left hip Alcohol abuse Gallstone (~08/2024) Surgical History 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) Cyst of right upper eyelid Family History Maternal Grandfather Alcohol abuse Maternal Uncle Alcohol abuse Social History Smoking/Tobacco Use Status: Current every day Tobacco Type: cigarettes Years smoked: 25 Smoking risk assessment performed?: Yes Alcohol Intake: current Alcohol Intake frequency: 3 or more drinks per day Counseling given: Yes Drug use: Occasionally Substance use type: does not use Housing: apartment 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 Meds Allergies and Home Medications Allergies Allergy/AdvReac Type Severity Reaction Status Date / Time hydromorphone (From Dilaudid) AdvReac Intermediate Other (See Verified 06/21/25 18:34 Comment) Home Medications Medication Instructions Recorded Confirmed Type Unknown [No Known Home Meds] 06/19/25 1 08/21/24 History Exam Narrative Exam Narrative: General: Patient appears older than stated age, lying in bed in the position sleeping but easily arousable. He is not agitated and has minimal conversation. He is alert alert and oriented at least to person and place. HEENT: Normocephalic, eyes with pupils equal and react to light symmetrically, extraocular movement tact and sclera anicteric. Oropharynx with dry mucosa and poor dentition. Neck: Supple without JVD. Back: Stooped posture without CVA tenderness. Lungs: Bronchovesicular breath sounds diffusely but no focalizing rales or rhonchi. Upper airway noise occasionally. No expiratory wheeze. Fair aeration. Heart: Regular rate and rhythm with no murmurs or gallops appreciated. Abdomen: Obese contour, soft with no focalizing tenderness or guarding and no rebound. No palpable hepatosplenomegaly. Bowel sounds positive all quadrants. Genitalia/rectal: Exam deferred. Extremities: Without clubbing, cyanosis or grossly pitting edema. Fair cap refill. Skin: Pale, warm and dry. Neuro: Cranial nerves II through XII grossly intact, no focalized motor deficits and no tremor. Psych: Flattened affect with depressed mood. Patient is not manifesting abnormal thought processes or having delirium at this time. He is sedated by Ativan. Memory testing not possible with patient's sedation. Results Imaging Imaging Studies: EXAM: XR CHEST 2V PA LATERAL Date of exam: 06/21/2025 CLINICAL HISTORY: Chest pain. TECHNIQUE: 2D digital imaging was performed. COMPARISON: CR XR PORTABLE CHEST AP from 04/18/2025 FINDINGS: 2 views: Heart size is normal. The mediastinum is not widened. Lungs are clear. No infiltrates nor pleural effusions. IMPRESSION: No acute pulmonary findings. Labs 06/21/25 22:38 06/21/25 22:38 Labs: Laboratory Results - last 24 hr 06/21/25 22:38 WBC 7.54 RBC 4.50 Hgb 14.8 Hct 42.0 MCV 93 MCH 32.9 MCHC 35.2 RDW 12.4 Plt Count 232 MPV 9.1 Immature Gran % 0.3 Neutrophils % 42.0 Lymphocytes % 51.1 Monocytes % 3.8 Eosinophils % 1.6 Basophils % 1.2 Nucleated RBC % 0.0 Absolute Neutrophils 3.17 Absolute Lymphocytes 3.85 H Absolute Monocytes 0.29 Absolute Eosinophils 0.12 Absolute Basophils 0.09 Sodium 143 Potassium 4.1 Chloride 100 Carbon Dioxide 24.0 Anion Gap 19.0 H BUN 5 L Creatinine 0.7 Est GFR (CKD-EPI 2020) 112.95 Glucose 82 Calcium 9.6 Magnesium 1.8 Total Bilirubin 0.3 AST 29 ALT 26 Alkaline Phosphatase 104 Troponin I 6 Total Protein 9.0 H Albumin 4.2 Ethyl Alcohol 349.7 H Last Vital Signs Temp 36.8 C 06/21/25 18:31 Pulse 89 06/21/25 23:40 Resp 18 06/21/25 23:40 BP 129/75 06/21/25 23:00 Pulse Ox 94 06/21/25 23:40 PAWSS Have you Been Recently Intoxicated or Drunk Within the Last 30 days?: Yes Have you Ever Experienced Previous Episodes of Alcohol Withdrawal?: Yes Have you ever Experienced Withdrawal Seizures?: No Have you ever Experienced Delirium Tremens(DT)s?: Yes Have you ever undergone Alcohol Rehabilitation Treatment (i.e, inpt ot outpatient treatment programs)?: Yes Have you ever Experienced Blackouts?: Yes Have you ever Combined Alcohol with other Downers within the last 90 days?: Yes Have you ever Combined Alcohol with any other Substance of Abuse during the last 90 days?: Unable to Obtain Evidence of Increased Autonomic Activity (i.e. HR>120, tremor, sweating, agitation, nausea)?: No Result: 5 Time Spent Time spent with Patient: 55-74 minutes Time was spent: preparing to see the patient(eg.review tests), obtaining and/or reviewing separately otained hiistory, ordering medications,tests, procedures, indepentently interpreting results and care coordination
[2025-06-22] VITALS (60 sets, daily range): BP systolic 99–137; BP diastolic 69–94; PULSE 66–104; RESP 13–25; TEMP 36.7–37.3; O2SAT 89–98
[2025-06-22 00:08] LABS: Lipase 18 U/L (<78)
--- NOTE | 2025-06-22 00:57 | W.PCEDHO ---
Registration Status: REG ER Primary Language: Preferred Language: Mongolian ED Information & Data Chief Complaint ETOHWithdr 06/21/25 20:09 Chief Complaint ETOHWithdr 06/21/25 18:31 Triage Note here for help to stop 06/21/25 18:31 drinking, left AMA today went home drank alcohol. Medical / Surgical History (Last Reviewed 06/21/25 @ 23:53 by Jer Swartz) Anxiety Acid reflux 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 Osteonecrosis Alcohol abuse Gallstone (~08/2024) (Last Reviewed 06/21/25 @ 23:53 by Jer Swartz) 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) Cyst of right upper eyelid Most Recent Vital Signs Temperature 36.8 C 06/21/25 18:31 Pulse 85 06/22/25 00:01 Pulse 84 06/22/25 00:10 Respiratory Rate 13 06/22/25 00:10 Respiratory Pattern Normal 06/21/25 20:09 Blood Pressure 123/76 06/22/25 00:01 Blood Pressure Mean 87 06/22/25 00:01 Pulse Oximetry 93 06/22/25 00:00 Oxygen Delivery Method Room Air 06/21/25 18:31 Oxygen Flow Rate 0 06/21/25 18:31 Pain Level 0 06/21/25 19:47 Allergies hydromorphone (From Dilaudid) Adverse Reaction (Intermediate, Verified 06/21/25 18:34) Other (See Comment) Nausea. Dont give me that stuff. Precautions Isolation Standard precaution 06/21/25 20:09 Active Medications Generic Name Dose Route Start Last Admin Trade Name Juan R PRN Reason Stop Dose Admin Lorazepam 0 mg 06/21/25 22:46 06/21/25 22:56 Lorazepam 1 Mg Tab PO/SL 3 mg DIRECTED PRN Administration IV IV Catheter Type [Right Peripheral IV Antecubital] IV Catheter Gauge [Right 18 Antecubital] Diagnostics 06/22/25 06/22/25 06/21/25 Range/Units 05:35 00:17 23:46 WBC Pending (4.4-10.8) 10^3/uL RBC Pending (4.36-5.78) 10^6/uL Hgb Pending (13.5-17.5) g/dL Hct Pending (40.0-50.0) % MCV Pending (80-95) fL MCH Pending (27.0-33.0) pg MCHC Pending (32.0-36.0) % RDW Pending (11.8-14.1) % Plt Count Pending (130-400) 10^3/uL MPV Pending (8.0-11.0) fL Immature Gran % Pending % Neutrophils % Pending % Lymphocytes % Pending % Monocytes % Pending % Eosinophils % Pending % Basophils % Pending % Nucleated RBC % (0.0-0.3) % Absolute Neutrophils Pending (1.2-6.7) 10^3/uL Absolute Lymphocytes Pending (1.2-3.4) 10^3/uL Absolute Monocytes Pending (0.1-0.8) 10^3/uL Absolute Eosinophils Pending (0.0-0.7) 10^3/uL Absolute Basophils Pending (0.0-0.2) 10^3/uL Sodium (136-145) mmol/L Potassium (3.5-5.1) mmol/L Chloride (98-107) mmol/L Carbon Dioxide (21.0-32.0) mmol/L Anion Gap (3-11) mmol/L BUN (7-18) mg/dL Creatinine (0.70-1.30) mg/dL Est GFR (CKD-EPI 2020) (mL/min/1.73m2) Glucose (74-106) mg/dL Calcium (8.5-10.1) mg/dL Magnesium (1.8-2.4) mg/dL Total Bilirubin (0.2-1.0) mg/dL AST (15-37) U/L ALT (16-63) U/L Alkaline Phosphatase (46-116) U/L Troponin I Cancelled (<or=76) ng/L Total Protein (6.4-8.2) g/dL Albumin (3.4-5.0) g/dL Lipase (<78) U/L Ethyl Alcohol (<10) mg/dL COVID-19 Source Pending SARS-CoV-2 (PCR) Pending Influenza Type A (PCR) Pending Influenza Type B (PCR) Pending RSV (PCR) Pending 06/21/25 Range/Units 22:38 WBC 7.54 (4.4-10.8) 10^3/uL RBC 4.50 (4.36-5.78) 10^6/uL Hgb 14.8 (13.5-17.5) g/dL Hct 42.0 (40.0-50.0) % MCV 93 (80-95) fL MCH 32.9 (27.0-33.0) pg MCHC 35.2 (32.0-36.0) % RDW 12.4 (11.8-14.1) % Plt Count 232 (130-400) 10^3/uL MPV 9.1 (8.0-11.0) fL Immature Gran % 0.3 % Neutrophils % 42.0 % Lymphocytes % 51.1 % Monocytes % 3.8 % Eosinophils % 1.6 % Basophils % 1.2 % Nucleated RBC % 0.0 (0.0-0.3) % Absolute Neutrophils 3.17 (1.2-6.7) 10^3/uL Absolute Lymphocytes 3.85 H (1.2-3.4) 10^3/uL Absolute Monocytes 0.29 (0.1-0.8) 10^3/uL Absolute Eosinophils 0.12 (0.0-0.7) 10^3/uL Absolute Basophils 0.09 (0.0-0.2) 10^3/uL Sodium 143 (136-145) mmol/L Potassium 4.1 (3.5-5.1) mmol/L Chloride 100 (98-107) mmol/L Carbon Dioxide 24.0 (21.0-32.0) mmol/L Anion Gap 19.0 H (3-11) mmol/L BUN 5 L (7-18) mg/dL Creatinine 0.7 (0.70-1.30) mg/dL Est GFR (CKD-EPI 2020) 112.95 (mL/min/1.73m2) Glucose 82 (74-106) mg/dL Calcium 9.6 (8.5-10.1) mg/dL Magnesium 1.8 (1.8-2.4) mg/dL Total Bilirubin 0.3 (0.2-1.0) mg/dL AST 29 (15-37) U/L ALT 26 (16-63) U/L Alkaline Phosphatase 104 (46-116) U/L Troponin I 6 (<or=76) ng/L Total Protein 9.0 H (6.4-8.2) g/dL Albumin 4.2 (3.4-5.0) g/dL Lipase 18 (<78) U/L Ethyl Alcohol 349.7 H (<10) mg/dL COVID-19 Source SARS-CoV-2 (PCR) Influenza Type A (PCR) Influenza Type B (PCR) RSV (PCR) Intake and Output - 24 Hour Total 06/21/25 18:18 thru 06/21/25 22:44 Intake Total 10 Balance 10 Weight 66.8 kg Intake: IV 10 Falls Risk Assessment History of Falls No History 06/21/25 20:09 Contributing Factors No Factors 06/21/25 20:09 Ambulatory Aids Independent 06/21/25 20:09 Tubes/Lines None 06/21/25 20:09 Gait Evaluation No gait disturbance 06/21/25 20:09 Cognition No cognitive impairment 06/21/25 20:09 Fall Total Score 0 06/21/25 20:09 Level of Risk Standard/Low Risk 06/21/25 20:09 Problems (Last Reviewed 06/21/25 @ 23:53 by Jer Swartz) Alcohol withdrawal (Acute) Alcoholism, chronic (Chronic) Nicotine addiction (Acute) Notes 06/21/25 20:13 Nursing Notes by Nakul Vyas Nursing Note: Pt was seen here earlier today for alcohol detox and then chose to leave when began to not feel well and drank 3 to 5 buzz balls. Presented to ED again stating that he knows he needs to quit drinking but he just can't. States that he doesn't want to detox tonight any longer and declines IV, labs, and fluids. MD Floyd aware. Initialized on 06/21/25 20:13 - END OF NOTE v v v v v v v v v Sending and/or Receiving Nurses: Please use comment section below to note any information pertinent to the patient hand-off not included above. Information / Comments: Report received from: Nakul SIMEON
[2025-06-22] MEDS: NORMAL SALINE IVPB (01:05)
[2025-06-22] MEDS: PHENOBARBITAL IVPB (01:05)
[2025-06-22 01:48] LABS: COVID-19 PCR Negative (Negative); RSV PCR Negative (Negative)
[2025-06-22] MEDS: PHENobarbital 200 MG in Normal Saline 50 ML 100 MG IVPB ×2 (05:03→09:56)
[2025-06-22 06:41] LABS: Abs Immature Grans 0.03 10^3/uL (0.0-0.06); HCT 34.8 % (40.0-50.0); HGB 12.0 g/dL (13.5-17.5); Immature Grans % 0.4 %; MCH 32.9 pg (27.0-33.0); MCHC 34.5 % (32.0-36.0); MCV 95 fL (80-95); MPV 9.7 fL (8.0-11.0); Platelet Count 197 10^3/uL (130-400); RBC 3.65 10^6/uL (4.36-5.78); RDW 12.4 % (11.8-14.1); RDW-SD 43.4 fL; WBC 8.18 10^3/uL (4.4-10.8)
[2025-06-22] MEDS: Normal Saline 1,000 ML 125 ML IV ×3 (06:58→23:19)
[2025-06-22 07:10] LABS: INR 1.0 (0.9-1.1); Prothrombin Time 10.0 sec (9.1-11.1)
[2025-06-22 07:23] LABS: ALT 24 U/L (16-63); AST 30 U/L (15-37); Albumin 3.4 g/dL (3.4-5.0); Alkaline Phosphatase 82 U/L (46-116); Anion Gap 19.0 mmol/L (3-11); BUN 6 mg/dL (7-18); Bilirubin, Direct 0.1 mg/dL (0.0-0.2); Bilirubin, Total 0.5 mg/dL (0.2-1.0); CO2 19.0 mmol/L (21.0-32.0); Calcium 8.6 mg/dL (8.5-10.1); Chloride 102 mmol/L (98-107); Glucose 64 mg/dL (74-106); Magnesium 1.8 mg/dL (1.8-2.4); Potassium 3.8 mmol/L (3.5-5.1); Sodium 140 mmol/L (136-145); Total Protein 7.3 g/dL (6.4-8.2)
[2025-06-22] MEDS: Enoxaparin 40 MG/0.4 ML SYR SC (09:55)
[2025-06-22] MEDS: Folic Acid 1 MG TAB PO (09:55)
[2025-06-22] MEDS: Thiamine 100 MG TAB PO (09:55)
[2025-06-22] MEDS: Multivitamin TAB 1 TAB PO (09:55)
[2025-06-22] MEDS: Normal Saline Flush 10 ML SYR IVP ×3 (09:57→19:37)
--- NOTE | 2025-06-22 12:25 | PGE_ITS ---
Date of Service Date of service: 06/22/25 Time of Service: 12:32 Assessment and Plan Assessment and plan (1) Alcohol withdrawal: Start date: 06/22/25 Status: Acute Assessment and plan: H/o recurrent hospitalizations for alcohol intoxication and alcoholic pancreatitis, no current pancreatitis. Tolerating phenobarbital alcohol withdrawal protocol, conitor closely in ICU. He has never had alcohol withdrawal seizures. Downgrade tomorrow if not needing precedex drip (2) Alcoholism, chronic: Status: Chronic Assessment and plan: Patient has chronic alcoholism, though had a recent period of sobriety. When closer to discharge, discuss medical, mental health, and socail supports. (3) Nicotine addiction: Status: Chronic Assessment and plan: Nicotine supplement with patient not smoking. (4) DVT prophylaxis: Status: Resolved Assessment and plan: low risk, SCDs while not active Subjective Subjective Patient reports: tolerating a regular diet and voiding w/o difficulty; denies diarrhea, vomiting, shortness of breath or fever Interval history since last seen: Woke up confused, but feeling a little more clear. Feels better than last night, less shakey. He did eat. He is still quite anxious. Exam Narrative Exam Narrative: Gen: Alert, oriented to place and self, remembers day after RN just told him. Appears fatigued, clammy, plethoric, but NAD HEENT: MMM, no icterus LUNGS: CTAB, nl effort CV: RRR, no m/g/r ABD: soft, NT/ND ext: no cyanosis or edema. Objective Last Vital Signs Temp 36.7 C 06/22/25 09:15 Pulse 97 H 06/22/25 11:01 Resp 18 06/22/25 09:00 BP 124/74 06/22/25 11:01 Pulse Ox 95 06/22/25 11:01 Laboratory Results - last 24 hr 06/21/25 06/21/25 06/22/25 22:38 23:46 01:08 EST WBC 7.54 RBC 4.50 Hgb 14.8 Hct 42.0 MCV 93 MCH 32.9 MCHC 35.2 RDW 12.4 Plt Count 232 MPV 9.1 Immature Gran % 0.3 Neutrophils % 42.0 Lymphocytes % 51.1 Monocytes % 3.8 Eosinophils % 1.6 Basophils % 1.2 Nucleated RBC % 0.0 Absolute Neutrophils 3.17 Absolute Lymphocytes 3.85 H Absolute Monocytes 0.29 Absolute Eosinophils 0.12 Absolute Basophils 0.09 PT INR Sodium 143 Potassium 4.1 Chloride 100 Carbon Dioxide 24.0 Anion Gap 19.0 H BUN 5 L Creatinine 0.7 Est GFR (CKD-EPI 2020) 112.95 Glucose 82 Calcium 9.6 Phosphorus Magnesium 1.8 Total Bilirubin 0.3 Conjugated Bilirubin AST 29 ALT 26 Alkaline Phosphatase 104 Troponin I 6 Cancelled Total Protein 9.0 H Albumin 4.2 Lipase 18 Ethyl Alcohol 349.7 H COVID-19 Source Nasopharynx SARS-CoV-2 (PCR) Negative Influenza Type A (PCR) Negative Influenza Type B (PCR) Negative RSV (PCR) Negative 06/22/25 05:52 WBC 8.18 RBC 3.65 L Hgb 12.0 L D Hct 34.8 L MCV 95 MCH 32.9 MCHC 34.5 RDW 12.4 Plt Count 197 MPV 9.7 Immature Gran % 0.4 Neutrophils % 56.8 Lymphocytes % 32.6 Monocytes % 5.9 Eosinophils % 3.3 Basophils % 1.0 Nucleated RBC % 0.0 Absolute Neutrophils 4.65 Absolute Lymphocytes 2.67 Absolute Monocytes 0.48 Absolute Eosinophils 0.27 Absolute Basophils 0.08 PT 10.0 INR 1.0 Sodium 140 Potassium 3.8 Chloride 102 Carbon Dioxide 19.0 L Anion Gap 19.0 H BUN 6 L Creatinine 0.5 L Est GFR (CKD-EPI 2020) 125.03 Glucose 64 L Calcium 8.6 Phosphorus 2.5 L Magnesium 1.8 Total Bilirubin 0.5 Conjugated Bilirubin 0.1 AST 30 ALT 24 Alkaline Phosphatase 82 Troponin I Total Protein 7.3 Albumin 3.4 Lipase Ethyl Alcohol COVID-19 Source SARS-CoV-2 (PCR) Influenza Type A (PCR) Influenza Type B (PCR) RSV (PCR) PAWSS Have you Been Recently Intoxicated or Drunk Within the Last 30 days?: Yes Have you Ever Experienced Previous Episodes of Alcohol Withdrawal?: Yes Have you ever Experienced Withdrawal Seizures?: No Have you ever Experienced Delirium Tremens(DT)s?: Yes Have you ever undergone Alcohol Rehabilitation Treatment (i.e, inpt ot outpatient treatment programs)?: Yes Have you ever Experienced Blackouts?: Yes Have you ever Combined Alcohol with other Downers within the last 90 days?: Yes Have you ever Combined Alcohol with any other Substance of Abuse during the last 90 days?: Unable to Obtain Evidence of Increased Autonomic Activity (i.e. HR>120, tremor, sweating, agitation, nausea)?: No Result: 5 Time Spent with Patient Time Spent with Patient: 35-49 minutes Time was spent: preparing to see the patient(eg.review tests), obtaining and/or reviewing separately otained hiistory, ordering medications,tests, procedures, referring, communicating with other health residential care facility manager, indepentently interpreting results, counseling the patient and care coordination
[2025-06-22] MEDS: PHENobarbital 130 MG/ML VIAL IVP ×4 (12:38→22:02)
[2025-06-22 13:57] LABS: Glucose Negative (Negative)
[2025-06-22 14:16] LABS: Cannabinoids THC Negative (Negative)
--- NOTE | 2025-06-22 14:20 | ED.GENADUL_ITS ---
Discharge Plan Discharge Details Chief Complaint: ETOHWithdr Admit Date/Time: 06/22/25 00:17 Admit Provider: Jer Swartz Attending Provider: Jer Swartz Primary Care Provider: OWEN GARRISON ED Provider: Isreal Macdonald Discharge Data Discharge Date/Time-TO BE ENTERED AT DEPARTURE: 06/22/25 01:27 EDT HPI General Date/Time Provider Initiated Documentation: 06/21/25 18:46 . HPI Narrative: MDM/Narrative: 50-year-old male requesting alcohol detox, acutely intoxicated. Differential Diagnosis: - Alcohol intoxication: History of daily drinking, half a gallon of vodka. No focal signs of withdrawal. Plan: Repeat ethyl alcohol level. - Alcohol withdrawal: CIWA score of 19. Plan: Admit for acute alcohol withdrawal. ED Course: - Reviewed labs from this morning - Ethyl alcohol level repeated - Patient instructed to call a friend or family member to take him from ER - Unable to find anyone willing to come take him home - After several hours of observation the patient is now displaying withdrawal symptoms with CIWA score of 19 - Discussed with hospitalist for admission Final Assessment: Patient acutely intoxicated requesting alcohol detox. Labs reviewed, ethyl alcohol level repeated. Unable to find anyone to take him home, displaying withdrawal symptoms with CIWA score of 19. Discussed with hospitalist for admission. Clinical Impression: - Alcohol intoxication - Alcohol withdrawal Disposition: - Admitted for acute alcohol withdrawal This document was created with assistance from [employer] The patient consented to its use. HPI: The patient is a 50-year-old male with a history of alcohol use disorder, presenting with a request for alcohol detoxification. He has a documented history of delirium tremens and previous hospitalization following cessation of alcohol consumption. The patient reports daily alcohol intake, consuming at least half a gallon of vodka. He was evaluated in the emergency department (ED) this morning, where laboratory results indicated elevated lactate levels, with the remainder of the metabolic panel and complete blood count (CBC) being unremarkable. The patient left the ED against medical advice (AMA), subsequently consumed more alcohol, and is now presenting with significant intoxication, seeking assistance. ROS: Negative besides as mentioned above Exam: Vital signs: Reviewed. General Appearance: Intoxicated middle-aged male. HEENT: NCAT, EOMI, not icteric. External ears normal. No rhinorrhea. Moist mucous membranes. Neck: Supple, full range of motion, no observable masses, No meningeal sign. Respiratory: No Respiratory distress. No tachypnea. Cardiovascular: RRR, no edema. Gastrointestinal: Soft, nondistended, No rebound tenderness. Back: No midline tenderness to palpation or palpable step-offs of the C/T/L spine. Skin: Warm and dry, no rash. Neurological: No focal signs of alcohol withdrawal, tremors, tongue fasciculations, significant anxiety, hypertension, or tachycardia. Psychiatric: Appropriate for situation. Labs: Laboratory Tests Range/Units 06/21/25 06/21/25 22:38 23:46 WBC (4.4-10.8) 10^3/uL 7.54 RBC (4.36-5.78) 10^6/uL 4.50 Hgb (13.5-17.5) g/dL 14.8 Hct (40.0-50.0) % 42.0 MCV (80-95) fL 93 MCH (27.0-33.0) pg 32.9 MCHC (32.0-36.0) % 35.2 RDW (11.8-14.1) % 12.4 Plt Count (130-400) 10^3/uL 232 MPV (8.0-11.0) fL 9.1 Immature Gran % % 0.3 Neutrophils % % 42.0 Lymphocytes % % 51.1 Monocytes % % 3.8 Eosinophils % % 1.6 Basophils % % 1.2 Nucleated RBC % (0.0-0.3) % 0.0 Absolute Neutrophils (1.2-6.7) 10^3/uL 3.17 Absolute Lymphocytes (1.2-3.4) 10^3/uL 3.85 H Absolute Monocytes (0.1-0.8) 10^3/uL 0.29 Absolute Eosinophils (0.0-0.7) 10^3/uL 0.12 Absolute Basophils (0.0-0.2) 10^3/uL 0.09 Sodium (136-145) mmol/L 143 Potassium (3.5-5.1) mmol/L 4.1 Chloride (98-107) mmol/L 100 Carbon Dioxide (21.0-32.0) mmol/L 24.0 Anion Gap (3-11) mmol/L 19.0 H BUN (7-18) mg/dL 5 L Creatinine (0.70-1.30) mg/dL 0.7 Est GFR (CKD-EPI 2020) (mL/min/1.73m2) 112.95 Glucose (74-106) mg/dL 82 Calcium (8.5-10.1) mg/dL 9.6 Magnesium (1.8-2.4) mg/dL 1.8 Total Bilirubin (0.2-1.0) mg/dL 0.3 AST (15-37) U/L 29 ALT (16-63) U/L 26 Alkaline Phosphatase (46-116) U/L 104 Troponin I (<or=76) ng/L 6 Cancelled Total Protein (6.4-8.2) g/dL 9.0 H Albumin (3.4-5.0) g/dL 4.2 Lipase (<78) U/L 18 Ethyl Alcohol (<10) mg/dL 349.7 H Related Data Home Medications Medication Instructions Recorded Confirmed Unknown [No Known Home Meds] 06/19/25 1 08/21/24 Allergies Allergy/AdvReac Type Severity Reaction Status Date / Time hydromorphone (From Dilaudid) AdvReac Intermediate Other (See Verified 06/21/25 18:34 Comment) General Stated Complaint: ETOHWithdr SARAH: 3 Course Vital Signs Vital signs: Vital Signs Temperature 36.8 C 06/21/25 18:31 Pulse 84 06/21/25 18:31 Respiratory Rate 18 06/21/25 18:31 Blood Pressure 131/89 06/21/25 18:31 Pulse Oximetry 98 06/21/25 18:31 Temperature 36.7 C 06/22/25 09:15 Temperature Source Temporal Artery Scan 06/22/25 09:15 Pulse 93 H 06/22/25 13:00 Pulse 104 H 06/22/25 13:00 Respiratory Rate 19 06/22/25 13:00 Respiratory Effort Normal, Non-Labored 06/22/25 00:20 Respiratory Depth Normal 06/22/25 00:20 Respiratory Pattern Normal 06/22/25 00:20 Blood Pressure 124/89 06/22/25 13:00 Blood Pressure Mean 101 06/22/25 13:00 Pulse Oximetry 95 06/22/25 12:00 Oxygen Delivery Method Room Air 06/22/25 00:20 Oxygen Flow Rate 0 06/22/25 00:20 Pain Level 0 06/21/25 19:47 Lab/Test Results Lab/Test Results: Laboratory Tests Range/Units 06/21/25 06/21/25 22:38 23:46 WBC (4.4-10.8) 10^3/uL 7.54 RBC (4.36-5.78) 10^6/uL 4.50 Hgb (13.5-17.5) g/dL 14.8 Hct (40.0-50.0) % 42.0 MCV (80-95) fL 93 MCH (27.0-33.0) pg 32.9 MCHC (32.0-36.0) % 35.2 RDW (11.8-14.1) % 12.4 Plt Count (130-400) 10^3/uL 232 MPV (8.0-11.0) fL 9.1 Immature Gran % % 0.3 Neutrophils % % 42.0 Lymphocytes % % 51.1 Monocytes % % 3.8 Eosinophils % % 1.6 Basophils % % 1.2 Nucleated RBC % (0.0-0.3) % 0.0 Absolute Neutrophils (1.2-6.7) 10^3/uL 3.17 Absolute Lymphocytes (1.2-3.4) 10^3/uL 3.85 H Absolute Monocytes (0.1-0.8) 10^3/uL 0.29 Absolute Eosinophils (0.0-0.7) 10^3/uL 0.12 Absolute Basophils (0.0-0.2) 10^3/uL 0.09 Sodium (136-145) mmol/L 143 Potassium (3.5-5.1) mmol/L 4.1 Chloride (98-107) mmol/L 100 Carbon Dioxide (21.0-32.0) mmol/L 24.0 Anion Gap (3-11) mmol/L 19.0 H BUN (7-18) mg/dL 5 L Creatinine (0.70-1.30) mg/dL 0.7 Est GFR (CKD-EPI 2020) (mL/min/1.73m2) 112.95 Glucose (74-106) mg/dL 82 Calcium (8.5-10.1) mg/dL 9.6 Magnesium (1.8-2.4) mg/dL 1.8 Total Bilirubin (0.2-1.0) mg/dL 0.3 AST (15-37) U/L 29 ALT (16-63) U/L 26 Alkaline Phosphatase (46-116) U/L 104 Troponin I (<or=76) ng/L 6 Cancelled Total Protein (6.4-8.2) g/dL 9.0 H Albumin (3.4-5.0) g/dL 4.2 Lipase (<78) U/L 18 Ethyl Alcohol (<10) mg/dL 349.7 H Medical Decision Making Quality:SDOH Health Related Social Needs: Health related social needs house/econ circumstance fi nding work lonely/isolated Health related social needs details Worried about not having enough money when he leaves hospital PFSH All Active Problems (Updated 06/22/25 @ 06:27 by Jer Swartz) Alcohol withdrawal (Acute) Chest pain (Acute) Constipation (Acute) Pancreatitis (Chronic) Alcohol intoxication (Acute) Alcoholism, chronic (Chronic) Pancreatitis (Chronic) Gallbladder polyp (Acute) Postprandial RUQ pain (Acute) Gallbladder disease (Acute) Dizziness (Acute) Nicotine addiction (Chronic) Avascular necrosis of bone of left hip (Acute) Hepatic steatosis (Acute) Impairment of balance (Acute) Chronic vertigo (Acute) Medical History Anxiety Acid reflux 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 Osteonecrosis bone of left hip 04/23/24 CT evidence of a vascular necrosis of left hip Alcohol abuse Gallstone (~08/2024) Surgical History 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) Cyst of right upper eyelid Family History Maternal Grandfather Alcohol abuse Maternal Uncle Alcohol abuse Social History Smoking/Tobacco Use Status: Current every day Tobacco Type: cigarettes Years smoked: 25 Smoking risk assessment performed?: Yes Alcohol Intake: current Alcohol Intake frequency: 3 or more drinks per day Counseling given: Yes Drug use: Occasionally Substance use type: does not use Housing: apartment 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 PAWSS Have you Been Recently Intoxicated or Drunk Within the Last 30 days?: Yes Have you Ever Experienced Previous Episodes of Alcohol Withdrawal?: Yes Have you ever Experienced Withdrawal Seizures?: No Have you ever Experienced Delirium Tremens(DT)s?: Yes Have you ever undergone Alcohol Rehabilitation Treatment (i.e, inpt ot outpatient treatment programs)?: Yes Have you ever Experienced Blackouts?: Yes Have you ever Combined Alcohol with other Downers within the last 90 days?: Yes Have you ever Combined Alcohol with any other Substance of Abuse during the last 90 days?: Unable to Obtain Evidence of Increased Autonomic Activity (i.e. HR>120, tremor, sweating, agitation, nausea)?: No Result: 5
[2025-06-22] MEDS: Nicotine 21 MG/24 HR PATCH TD (16:40)
[2025-06-22] MEDS: Acetaminophen 325 MG TAB 650 MG PO ×2 (16:41→22:03)
--- NOTE | 2025-06-22 19:02 | INITIAL_ITS ---
Date of service: 06/22/25 Time of Service: 19:02 Care Management Initial Assmt Initial Assessment Reason for Hospitalization: alcohol withdrawal Functional Status/Living Situation Patient Presentation: Paul was sitting up in bed when CM met with him. he was alert and oriented and seemed to remember CM from previous admissions. Paul was admitted with alcohol withdrawal. When assessed by the ED provider, his CIWA score was already a 19 and he was started on the phenobarbital protocol. Paul is currently living in an apartment in [facility]. Paul's parents live in [place] and are very supportive, as is his sister who lives in [place]. Paul has no children of his own. Paul stated that he lost his job when he was last admitted because he went to [facility] from [facility] and missed a lot of work. He stated that [facility] has told him he will lose his apartment in another month if he continues to be unable to pay rent. For now he is getting food from the food shelves and is scraping by. As much as Paul would like to return to [facility] or another sobriety program, he stated his first priority must be to get a job. He asked to speak to a Manager Telemarketing this afternoon and CM arranged for Wade to come and meet with him. Wade did and Paul said it went well. He plans to follow up with Paul again tomorrow. Town of Residence: [facility] Resides with: Alone Significant Other/Family: Local Natural Supports: family Employment Status: Unemployed Instrumental Activities of Daily Living (ADLs): Independent Medications Medication Management: No Issues/Barriers identified Physical Functioning/Mobility Assistive Device: none Advance Directives Advance Directives: Do you have an Advance Directive: N , 19:40 AD On File at [facility]: N 11/22/16, 19:40 Date Asked 06/21/25 06/21/25, 09:55 AD Date Reviewed COLST On File at [facility] No 03/30/24, 17:21 COLST Date Scanned Code Status Resuscitation Status Full Code Insurance Coverage/Financial Issues Insurance: Medicaid Care Team Visit Care Team Role Provider Type Aguilar William MD [facility] STAFF PHYSICIAN OWEN GARRISON, SAFIA Primary Care Provider NON-[facility] STAFF PHYSICIAN Isreal Macdonald MD Emergency Provider [facility] STAFF PHYSICIAN Jer Swartz Admit Provider NON-[facility] STAFF PHYSICIAN Attending Provider Discharge Potential Discharge Needs: PCP F/U Appt Anticipated Barriers to Discharge: None Identified Patient/Family Education Needs: Review discharge instructions, discuss Ask Me Three Transportation: [facility] Plan: Anticipate Paul will be discharged home with no new services when medically cleared. He does intend to continue to meet with his Manager Telemarketing and hopes to be able to complete the 90 meetings in 90 days recommended by [facility].Paul will follow up with his PCP and plan of care and will transport home via [facility]. CM will follow and continue to assess for discharge needs. Social Determinants of Health Screening Will the Patient Participate in the Screening?: Declined to provide PFSH All Active Problems (Updated 06/22/25 @ 06:27 by Jer Swartz) Alcohol withdrawal (Acute) Chest pain (Acute) Constipation (Acute) Pancreatitis (Chronic) Alcohol intoxication (Acute) Alcoholism, chronic (Chronic) Pancreatitis (Chronic) Gallbladder polyp (Acute) Postprandial RUQ pain (Acute) Gallbladder disease (Acute) Dizziness (Acute) Nicotine addiction (Chronic) Avascular necrosis of bone of left hip (Acute) Hepatic steatosis (Acute) Impairment of balance (Acute) Chronic vertigo (Acute) Medical History Anxiety Acid reflux 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 Osteonecrosis bone of left hip 04/23/24 CT evidence of a vascular necrosis of left hip Alcohol abuse Gallstone (~08/2024) Surgical History 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) Cyst of right upper eyelid Family History Maternal Grandfather Alcohol abuse Maternal Uncle Alcohol abuse Social History Smoking/Tobacco Use Status: Current every day Tobacco Type: cigarettes Years smoked: 25 Smoking risk assessment performed?: Yes Alcohol Intake: current Alcohol Intake frequency: 3 or more drinks per day Counseling given: Yes Drug use: Occasionally Substance use type: does not use Housing: apartment 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
[2025-06-23] VITALS (32 sets, daily range): BP systolic 100–143; BP diastolic 75–95; PULSE 61–92; RESP 11–20; TEMP 36.5; O2SAT 93–100
[2025-06-23] MEDS: Acetaminophen 325 MG TAB 650 MG PO (06:07)
[2025-06-23] MEDS: Ondansetron 4 MG/2 ML VIAL IVP (06:09)
[2025-06-23] MEDS: Normal Saline Flush 10 ML SYR IVP ×3 (06:09→19:25)
[2025-06-23 06:15] LABS: ALT 21 U/L (16-63); AST 26 U/L (15-37); Albumin 3.1 g/dL (3.4-5.0); Alkaline Phosphatase 83 U/L (46-116); Anion Gap 12.1 mmol/L (3-11); BUN 6 mg/dL (7-18); Bilirubin, Direct 0.2 mg/dL (0.0-0.2); Bilirubin, Total 0.8 mg/dL (0.2-1.0); CO2 23.9 mmol/L (21.0-32.0); Calcium 8.6 mg/dL (8.5-10.1); Chloride 101 mmol/L (98-107); Glucose 97 mg/dL (74-106); Magnesium 1.4 mg/dL (1.8-2.4); Potassium 3.2 mmol/L (3.5-5.1); Sodium 137 mmol/L (136-145); Total Protein 6.8 g/dL (6.4-8.2)
[2025-06-23] MEDS: Potassium Chloride 20 MEQ TABCR 40 MEQ PO ×2 (08:20→19:24)
[2025-06-23] MEDS: Multivitamin TAB 1 TAB PO (08:20)
[2025-06-23] MEDS: Folic Acid 1 MG TAB PO (08:21)
[2025-06-23] MEDS: Enoxaparin 40 MG/0.4 ML SYR SC (08:21)
[2025-06-23] MEDS: Thiamine 100 MG TAB PO (08:21)
[2025-06-23] MEDS: MAGNESIUM SULFATE 4 GM/100 ML BAG IV_INF (08:21)
--- NOTE | 2025-06-23 09:10 | PT.INIE ---
PT Notes Visit Reasons: Acute Alcohol Withdrawal, Chronic Alcoholism Physical Therapy Inpatient Initial Evaluation Date: 06/23/2024 Referring Doctor: Aguilar William MD PT Orders: PT CONSULT: Fall safety assessment. Eval for Assistive Device Precautions: Activity as tolerated. Standard. Fall risk. Patient Profile/Admitting Diagnosis: Paul is a 50-year-old male with past medical history significant for EtOH abuse and withdrawal who presented to the ED on 06/22/2025 with geernalized weakness from alcohol withrawal. Patient is admitted for management of EtOH withdrawal and nicotine addiction. PMHX: All Active Problems (Updated 06/22/25 @ 06:27 by Jer Swartz) Alcohol withdrawal (Acute) Chest pain (Acute) Constipation (Acute) Pancreatitis (Chronic) Alcohol intoxication (Acute) Alcoholism, chronic (Chronic) Pancreatitis (Chronic) Gallbladder polyp (Acute) Postprandial RUQ pain (Acute) Gallbladder disease (Acute) Dizziness (Acute) Nicotine addiction (Chronic) Avascular necrosis of bone of left hip (Acute) Hepatic steatosis (Acute) Impairment of balance (Acute) Chronic vertigo (Acute) Medical History Anxiety Acid reflux 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 Osteonecrosis bone of left hip 04/23/24 CT evidence of a vascular necrosis of left hip Alcohol abuse Gallstone (~08/2024) Surgical History 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) Cyst of right upper eyelid Social History/Home Situation: Lives alone in an apartment with 2 flights of steps to enter with a rail on one side. Independent with all aspects of ADLs prior to admission. 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 Deniend headche and chest pain throughout. Feels like he just would need a day or two to get his footing back. Willing to try out the real steps today or tomorrow. Prior Level of Function: Independent with all ADLs Current Level of Function: Functional decline in mobility dut o ETOH withrawal OBJECTIVE: Observation: On the commode whne PT came in with NAOMY Garibay and Nurse Svitlana Mental Status: A and O x 4 Vital Signs: SaO2 highest of 96% while walking and HR of 91 bpm ROM: Right Upper Extremity: Shoulder Flexion WFL. Shoulder abduction WFL. Elbow flexion WFL. Wrist flexion WFL. Functional opening and closing of hand WFL. eft Upper Extremity: Shoulder Flexion WFL. Shoulder abduction WFL. Elbow flexion WFL. Wrist flexion WFL. Functional opening and closing of hand WFL. Right Lower Extremity: Hip flexion WFL. Hip abduction WFL. Knee flexion WFL. Ankle dorsiflexion WFL. Ankle plantarflexion WFL. Left Lower Extremity: Hip flexion WFL. Hip abduction WFL. Knee flexion WFL. Ankle dorsiflexion WFL. Ankle plantarflexion WFL. Strength: Right Upper Extremity: Shoulder flexors 4/5. Shoulder abductors 4/5. Elbow flexors 5/5. Elbow extensors 5/5. Printing Press Operator Apprentice strong. Left Upper Extremity: Shoulder flexors 4/5. Shoulder abductors 4/5. Elbow flexors 5/5. Elbow extensors 5/5. Printing Press Operator Apprentice strong. Right Lower Extremity: Hip flexors 4/5. Hip abductors 4/5. Knee flexors 5/5. Knee extensors 4/5. Ankle dorsiflexors 4/5. Ankle plantarflexors 5/5. Left Lower Extremity: Hip flexors 4/5. Hip abductors 4/5. Knee flexors 5/5. Knee extensors 4/5. Ankle dorsiflexors 4/5. Ankle plantarflexors 5/5. Bed Mobility/Transfers: Rolling modified independent Supine to sit stand by assist Sit to stand contact guard assist with FWW Stand to sit contact guard assist with FWW Gait: Mildly ataxic and reported unsteadiness that was minimized with use of FWW. Covered a distance of at least 75 feet + 120 feet with contact guard assist. Minimal shortness of breath. Niurka decreased. Minimal verbal cueing for AD management and overall safety. Stairs: Not assessed Balance: Static Sitting: Good Dynamic Sitting: Good Static Standing: Good Dynamic Standing: Fair Special Tests: Mobility Limitations Standardized Measure [facility] AM-PAC 6 clicks Basic Mobility Inpatient Short Form: Raw Score: 18 CMS Score:47% deficit 4-Stage Balance Test: Feet together 10 seconds Semi-tandem <10 seocnds Full tandem deferred One-legged stance deferred Informed Consent/Education: Patient was instructed in purpose of PT consult and plan of care. Agreeable to proceed with plan of care. ASSESSMENT: Patient demonstrates functional mobility decline needing the use of a front-wheeled walker for all mobility ADL performance due to gait instability and genernalized weakness from admitting diagnoses. Patient presents with clinical signs and symptoms consistent with current/admitting diagnoses that have resulted to mobility limitations, gait instability, generalized weakness, and overall ADL decline as demonstrated by the following impairment level findings: 1. Impaired standing balance 2. Impaired activity tolerance 3. Generalized weakness Impairments are contributing to the following functional limitations: 1. Increased completion time for mobility ADL performance 2. Increased risk for falls Patient is assessed as a 93514 moderate complexity based on the following: History: 50-year-old male with past medical history as indicated above Examination: Demonstrable impairment above Presentation: Evolving Decision Makin moderate complexity Goals: Goals X1 week 1. Supine-Sit independent 2. Sit-Supine independent 3. Sit-Stand independent 4. Stand-Sit independent 5. Bed-Chair independent 6. Chair-Bed independent 7. Independent gait on level surface with use of SPC for at least 300 feet without report of pain nor dyspnea 8. Independent stair negotiation while holding onto bilateral rails for at least 12 steps x 2 without report of pain nor dyspnea 9. Independent with home exercise program 10. Good static and dynamic standing balance/tolerance Plan of Care/Treatment Plan: Patient will highly benefit from skilled physical therapy services including functional mobility training, bed mobility/transfer training, gait and balance training, therapeutic exercises, therapeutic activity, caregiver/staff/family education and training 1x/day, 7 days/week x 1 week. Plan of care has been reviewed with the HEARING AIDE TECHNICIAN providing the service under Physical Therapy direction. Initiate Physical Therapy intervention for strengthening, bed mobility, transfers, gait, stairs, balance training, use of assistive device. Order DISCHARGE RECOMMENDATIONS: PT TREATMENT CODE/TIME: 23981 x 27 minutes for 1 unit (09:10-09:37). Thank you for the opportunity to participate in the care of this patient. Carey Trevino PT, DPT, CLT [facility] [place], [place]
--- NOTE | 2025-06-23 13:04 | CMPROGNOTE_ITS ---
Date of service: 06/23/25 Time of Service: 13:05 Care Management Progress Note Progress Note Text Progress Note Text: Paul was sitting up in the bedside chair, eating lunch, when CM met with him today. He was very pleasant with CM and very open as to his reason for being hospitalized. He stated that he is very weak. He has really only been drinking alcohol, and not really eating, and certainly not anything healthy. He stated that he has lost a lot of strength due to this, and is happy to be working with PT. Paul met with a head girls golf coach yesterday afternoon, and plans to meet with him again today. Paul stated that he has tried to do this alone for many years, and is realizing that he needs the help of others to meet his sobriety goals. Paul has applied to a job at [employer], on line, and plans to go there in person when he is discharged to follow up with them. Paul needs both the money, and the distraction. Paul stated that his phone has no minutes for calling, but he can still text. He doesn't have the funds for this. Paul was agreeable to a referral to [facility]. Referral was sent, and Paul was given their rack card . Discharge Potential Discharge Needs: PCP F/U Appt Anticipated Barriers to Discharge: None Identified Patient/Family Education Needs: Review discharge instructions, discuss Ask Me Three [facility]: [facility] Plan: Anticipate Paul will be discharged home with no new services when medically cl eared. He does intend to continue to meet with his Explosives Truck Driver and hopes to be able to complete the 90 meetings in 90 days recommended by [facility]. Paul will follow up with his PCP and plan of care and will transport home via [facility]. CM will follow and continue to assess for discharge needs. Social Determinants of Health Screening Will the Patient Participate in the Screening?: Declined to provide
--- NOTE | 2025-06-23 13:37 | PTTR_ITS ---
PT Notes Visit Reasons: Acute Alcohol Withdrawal, Chronic Alcoholism Date: 06/23/2025 PRECAUTIONS: Fall. Standard. Activity as tolerated. SUBJECTIVE: Pt in recliner when approached for therapy this afternoon, OBJECTIVE: telemetry PAIN: denies VITALS: monitored by ICU nurse Therapeutic Activities 84263: Direct one-on-one instruction in dynamic activities to improve functional performance. BED MOBILITY/TRANSFERS Rolling L/R: Supervision Supine-sit: Supervision Sit-supine: Supervision Sit-stand: SBA Stand-sit: SBA Bed-Chair: SBA Chair-bed: SBA Provided skilled cues and instruction on performance and technique throughout. Gait Training 92100: Direct one-on-one instruction and skilled instruction in: Employing an assistive device Modified weight-bearing status Movement sequencing Turning and movement with proper form Provided verbal cues for equipment management and technique Provided instruction in gait pattern Patient education regarding pacing and breathing techniques to maximize activity tolerance GAIT Assistive Device: FWW Weight bearing: FWB Assist: SBA Distance: 100'x1 300x1, 100'x1 Deviation: slow juanjo, Neuromuscular Re-education 99416: Activities that facilitate re-education of movement balance, posture, coordination, and proprioception or kinesthetic sense, requiring skilled tactile and verbal cues Exercises/techniques: Sit to stand [id number] Standing without UE support 1min Transfer training inside toilet, washing hand in front of sink without UE support, Walking sideways Walking backwards ASSESSMENT: pt reports he is feeling stronger and much more stable compared to this morning. pt did not have LOB episodes during the duration of session. PLAN: Continue with balance training, global strengthening and general condi tioning for improved safety, mobility and activity tolerance until pt is ready for DC. TREATMENT CODE/TIME: 26285m3, 41962k3 30mins (12:45-1:15pm)
[2025-06-23] MEDS: Nicotine 21 MG/24 HR PATCH TD (16:27)
--- NOTE | 2025-06-23 16:52 | W.PM.PROGNOT ---
Date of Service Date of service: 06/23/25 Time of Service: 16:55 Assessment and Plan Assessment and plan (1) Alcohol withdrawal: Start date: 06/22/25 Status: Acute Assessment and plan: H/o recurrent hospitalizations for alcohol intoxication and alcoholic pancreatitis, no current pancreatitis. Maxed on phenobarbital, but it appears this will be enough as no longer scoring on CIWA. Downgrade now, likely home 06/24 (2) Alcoholism, chronic: Status: Chronic Assessment and plan: Patient has chronic alcoholism, though had a recent period of sobriety. Connected to recovery center Discuss medical options before discharge. (3) Nicotine addiction: Status: Chronic Assessment and plan: Nicotine supplement with patient not smoking. (4) DVT prophylaxis: Status: Resolved Assessment and plan: low risk, SCDs while not active Subjective Subjective Patient reports: feels better, tolerating a regular diet and voiding w/o difficulty; denies diarrhea, nausea, vomiting, shortness of breath or fever Interval history since last seen: Feeling better today. not in pain now. still anxiety, but getting better. Talked to his sponsor. Since evaluation, hasn't scored above 1 on CIWA since 8am. Exam Narrative Exam Narrative: Gen: Alert, oriented x 3, NAD. no tremor HEENT: MMM, no icterus LUNGS: CTAB, nl effort CV: RRR, no m/g/r ABD: soft, NT/ND ext: no cyanosis or edema. Objective Last Vital Signs Temp 36.5 C 06/23/25 05:01 Pulse 67 06/23/25 16:20 Resp 14 06/23/25 16:20 BP 122/81 06/23/25 16:20 Pulse Ox 97 06/23/25 15:30 Laboratory Results - last 24 hr 06/23/25 05:14 Sodium 137 Potassium 3.2 L Chloride 101 Carbon Dioxide 23.9 Anion Gap 12.1 H BUN 6 L Creatinine 0.6 L Est GFR (CKD-EPI 2020) 118.34 Glucose 97 Calcium 8.6 Magnesium 1.4 L Total Bilirubin 0.8 Conjugated Bilirubin 0.2 AST 26 ALT 21 Alkaline Phosphatase 83 Total Protein 6.8 Albumin 3.1 L PAWSS Have you Been Recently Intoxicated or Drunk Within the Last 30 days?: Yes Have you Ever Experienced Previous Episodes of Alcohol Withdrawal?: Yes Have you ever Experienced Withdrawal Seizures?: No Have you ever Experienced Delirium Tremens(DT)s?: Yes Have you ever undergone Alcohol Rehabilitation Treatment (i.e, inpt ot outpatient treatment programs)?: Yes Have you ever Experienced Blackouts?: Yes Have you ever Combined Alcohol with other Downers within the last 90 days?: Yes Have you ever Combined Alcohol with any other Substance of Abuse during the last 90 days?: Unable to Obtain Evidence of Increased Autonomic Activity (i.e. HR>120, tremor, sweating, agitation, nausea)?: No Result: 5 Time Spent with Patient Time Spent with Patient: 35-49 minutes Time was spent: preparing to see the patient(eg.review tests), obtaining and/or reviewing separately otained hiistory, ordering medications,tests, procedures, referring, communicating with other health manager progressive care, indepentently interpreting results, counseling the patient and care coordination
[2025-06-23] MEDS: Melatonin 3 MG TAB 6 MG PO (22:50)
[2025-06-23] MEDS: cloNIDine 0.1 MG TAB PO (22:50)
[2025-06-24 06:17] LABS: ALT 27 U/L (16-63); AST 31 U/L (15-37); Albumin 3.5 g/dL (3.4-5.0); Alkaline Phosphatase 95 U/L (46-116); Anion Gap 11.3 mmol/L (3-11); BUN 5 mg/dL (7-18); Bilirubin, Direct 0.1 mg/dL (0.0-0.2); Bilirubin, Total 0.3 mg/dL (0.2-1.0); CO2 24.7 mmol/L (21.0-32.0); Calcium 9.2 mg/dL (8.5-10.1); Chloride 101 mmol/L (98-107); Glucose 99 mg/dL (74-106); Magnesium 1.8 mg/dL (1.8-2.4); Potassium 4.0 mmol/L (3.5-5.1); Sodium 137 mmol/L (136-145); Total Protein 7.6 g/dL (6.4-8.2)
--- NOTE | 2025-06-24 06:20 | DSE_ITS ---
Date of service: 06/24/25 Time of Service: 06:20 DS: Diagnosis Discharge Diagnosis (1) Alcohol withdrawal: Status: Acute (2) Alcoholism, chronic: Status: Chronic (3) Nicotine addiction: Status: Chronic (4) DVT prophylaxis: Status: Resolved Discharge Plan Disposition Patient Disposition: Home Condition: Improving Discharge Details Reason For Visit: Acute Alcohol Withdrawal, Chronic Alcoholism Admit Date/Time: 06/22/25 00:17 Admit Provider: Jer Swartz Attending Provider: Jer Swartz Primary Care Provider: OWEN GARRISON [facility] Course Hospital Course: 50-year-old man who has a history of multiple admissions for alcoholic pancreatitis and alcohol withdrawal presented after an alcoholic binge asking for help with withdrawal. He had recently been at [facility] before his relapse and was getting IM naltrexone. He was in the ED earlier in the same morning, then left AMA before returning. He had an initial CIWA of 19 with an alcohol level of 300 and was started on phenobarbital protocol. He received the maximum dose of phenobarbital for his weight, but did not require adjunctive medication other than melatonin to help sleep. His CIWAs were all 1 or below fo r close to 24 hours prior to discharge. He was given nicotene patch for smoking cessation. He had low potassium and magnesium which were replaced. He had a mild anemia but no bleeding. His liver was not inflammed and his labs were not concerning for cirrhosis. He was evaluated by PT and was still unsteady on his feet 06/23 but improving. By 06/24 he was steady walking on his own before discharge. He was motivated to quit drinking. He met with his women's basketball coach. He missed his naltrexone shot, which he felt was helping him at least initially. He was given a script for oral naltrexone until he is able to reschedule with his PCP, which should be within a week. Recommendations for Follow Up Recommended tests to be ordered by follow up provider: CMP, hemoglobin, Magnesium 1 week Home Meds and New Rx's Prescriptions: New multivitamin [Multiple Vitamins] Tablet 1 tab PO QAM Qty: 90 0RF melatonin 3 mg Tablet 6 mg PO HS Qty: 60 0RF folic acid 1 mg Tablet 1 mg PO QAM Qty: 30 0RF thiamine mononitrate (vit B1) [Vitamin B-1 (mononitrate)] 100 mg Tablet 100 mg PO QAM Qty: 30 0RF naltrexone 50 mg tablet 50 mg PO DAILY Qty: 30 0RF Rx Instructions: take until you get the naltrexone shot Discharge Instructions Stand Alone Forms: Portal Information Activity:: Activity as Tolerated Equipment/Supplies:: No Equipment Needed Diet:: As Tolerated Discharge Orders Discharge Orders: Discharge Order (Routine); Ordered 06/24/25 Ordered By: Aguilar William DS: Summary Time Spent with Patient providing and/or coordinating discharge services: Greater than 30 minutes Status at Discharge Functional status at discharge: independent ambulation Overall status at discharge: patient is back to baseline Mental Status: mental status grossly normal Speech and Movement: speech and movement normal Mood: congruent mood Affect: normal affect Quality:SDOH Health Related Social Needs: Health related social needs house/econ circumstance fi nding work lonely/isolated Health related social needs details Worried about not having enough money when he leaves hospital Exam Narrative Exam Narrative: Gen: Alert, oriented x 3, NAD. no tremor HEENT: MMM, no icterus LUNGS: CTAB, nl effort CV: RRR, no m/g/r ABD: soft, NT/ND ext: no cyanosis or edema. psych: normal mood and affect, nl thought process Psych Mental Status: mental status grossly normal Speech and Movement: speech and movement normal Mood: congruent mood Affect: normal affect DS: Data Vitals/I&O Vitals and I&O: Vital Signs Temperature 36.5 C 06/23/25 05:01 Temperature Source Temporal Artery Scan 06/22/25 17:59 Pulse 84 06/23/25 19:34 Pulse 70 06/23/25 16:20 Respiratory Rate 14 06/23/25 16:20 Respiratory Effort Normal, Non-Labored 06/22/25 00:20 Respiratory Depth Normal 06/22/25 00:20 Respiratory Pattern Normal 06/22/25 00:20 Blood Pressure 122/86 06/23/25 19:34 Blood Pressure Mean 98 06/23/25 19:34 Pulse Oximetry 97 06/23/25 15:30 Oxygen Delivery Method Room Air 06/22/25 17:59 Oxygen Flow Rate 0 06/22/25 17:59 Pain Level 6 06/23/25 06:07 Intake & Output 06/23/25 06/23/25 06/24/25 11:59 23:59 11:59 Intake Total 1600 / 2360 760 / 2360 Output Total 1850 / 3250 1400 / 3250 300 / 300 Balance -250 / -890 -640 / -890 -300 / -300 Weight 68.1 kg Intake: IV 1000 / 1110 110 / 1110 Oral 600 / 1250 650 / 1250 Output: Urine 1850 / 3250 1400 / 3250 300 / 300 Other: Urine Color Yellow Yellow Yellow Urine Appearance Clear Clear Clear Urine Odor None Normal Normal Stool Size Moderate Stool Characteristics Hard Brown Data Completed and Pending Pending Labs at Discharge: 06/21/25 06/21/25 06/22/25 22:38 23:46 01:08 EST WBC 7.54 RBC 4.50 Hgb 14.8 Hct 42.0 MCV 93 MCH 32.9 MCHC 35.2 RDW 12.4 Plt Count 232 MPV 9.1 Immature Gran % 0.3 Neutrophils % 42.0 Lymphocytes % 51.1 Monocytes % 3.8 Eosinophils % 1.6 Basophils % 1.2 Nucleated RBC % 0.0 Absolute Neutrophils 3.17 Absolute Lymphocytes 3.85 H Absolute Monocytes 0.29 Absolute Eosinophils 0.12 Absolute Basophils 0.09 PT INR Sodium 143 Potassium 4.1 Chloride 100 Carbon Dioxide 24.0 Anion Gap 19.0 H BUN 5 L Creatinine 0.7 Est GFR (CKD-EPI 2020) 112.95 Glucose 82 Calcium 9.6 Phosphorus Magnesium 1.8 Total Bilirubin 0.3 Conjugated Bilirubin AST 29 ALT 26 Alkaline Phosphatase 104 Troponin I 6 Cancelled Total Protein 9.0 H Albumin 4.2 Lipase 18 Urine Color Urine Clarity Urine pH Ur Specific [place] Urine Protein Urine Ketones Urine Blood Urine Nitrite Urine Bilirubin Urine Urobilinogen Ur Leukocyte Esterase Urine Glucose Urine Opiates Screen Urine Methadone Screen Ur Barbiturates Screen Ur Tricyclics Screen Ur Amphetamines Screen U Benzodiazepines Scrn Urine Cocaine Screen Ur THC Screen Ethyl Alcohol 349.7 H COVID-19 Source Nasopharynx SARS-CoV-2 (PCR) Negative Influenza Type A (PCR) Negative Influenza Type B (PCR) Negative RSV (PCR) Negative 06/22/25 06/22/25 06/23/25 05:52 12:00 05:14 WBC 8.18 RBC 3.65 L Hgb 12.0 L D Hct 34.8 L MCV 95 MCH 32.9 MCHC 34.5 RDW 12.4 Plt Count 197 MPV 9.7 Immature Gran % 0.4 Neutrophils % 56.8 Lymphocytes % 32.6 Monocytes % 5.9 Eosinophils % 3.3 Basophils % 1.0 Nucleated RBC % 0.0 Absolute Neutrophils 4.65 Absolute Lymphocytes 2.67 Absolute Monocytes 0.48 Absolute Eosinophils 0.27 Absolute Basophils 0.08 PT 10.0 INR 1.0 Sodium 140 137 Potassium 3.8 3.2 L Chloride 102 101 Carbon Dioxide 19.0 L 23.9 Anion Gap 19.0 H 12.1 H BUN 6 L 6 L Creatinine 0.5 L 0.6 L Est GFR (CKD-EPI 2020) 125.03 118.34 Glucose 64 L 97 Calcium 8.6 8.6 Phosphorus 2.5 L Magnesium 1.8 1.4 L Total Bilirubin 0.5 0.8 Conjugated Bilirubin 0.1 0.2 AST 30 26 ALT 24 21 Alkaline Phosphatase 82 83 Troponin I Total Protein 7.3 6.8 Albumin 3.4 3.1 L Lipase Urine Color Yellow Urine Clarity Clear Urine pH 5.5 Ur Specific [place] 1.025 Urine Protein Negative Urine Ketones >=160 H Urine Blood Negative Urine Nitrite Negative Urine Bilirubin Negative Urine Urobilinogen 0.2 Ur Leukocyte Esterase Negative Urine Glucose Negative Urine Opiates Screen Negative Urine Methadone Screen Negative Ur Barbiturates Screen Positive A Ur Tricyclics Screen Negative Ur Amphetamines Screen Negative U Benzodiazepines Scrn Negative Urine Cocaine Screen Negative Ur THC Screen Negative Ethyl Alcohol COVID-19 Source SARS-CoV-2 (PCR) Influenza Type A (PCR) Influenza Type B (PCR) RSV (PCR) 06/24/25 05:35 WBC RBC Hgb Hct MCV MCH MCHC RDW Plt Count MPV Immature Gran % Neutrophils % Lymphocytes % Monocytes % Eosinophils % Basophils % Nucleated RBC % Absolute Neutrophils Absolute Lymphocytes Absolute Monocytes Absolute Eosinophils Absolute Basophils PT INR Sodium Pending Potassium Pending Chloride Pending Carbon Dioxide Pending Anion Gap Pending BUN Pending Creatinine Pending Est GFR (CKD-EPI 2020) Pending Glucose Pending Calcium Pending Phosphorus Magnesium Pending Total Bilirubin Pending Conjugated Bilirubin Pending AST Pending ALT Pending Alkaline Phosphatase Pending Troponin I Total Protein Pending Albumin Pending Lipase Urine Color Urine Clarity Urine pH Ur Specific [place] Urine Protein Urine Ketones Urine Blood Urine Nitrite Urine Bilirubin Urine Urobilinogen Ur Leukocyte Esterase Urine Glucose Urine Opiates Screen Urine Methadone Screen Ur Barbiturates Screen Ur Tricyclics Screen Ur Amphetamines Screen U Benzodiazepines Scrn Urine Cocaine Screen Ur THC Screen Ethyl Alcohol COVID-19 Source SARS-CoV-2 (PCR) Influenza Type A (PCR) Influenza Type B (PCR) RSV (PCR) [facility] All Active Problems (Updated 06/22/25 @ 06:27 by Jer Swartz) Chest pain (Acute) Constipation (Acute) Alcohol withdrawal (Acute) Pancreatitis (Chronic) Alcohol intoxication (Acute) Alcoholism, chronic (Chronic) Pancreatitis (Chronic) Gallbladder polyp (Acute) Postprandial RUQ pain (Acute) Gallbladder disease (Acute) Dizziness (Acute) Nicotine addiction (Chronic) Avascular necrosis of bone of left hip (Acute) Hepatic steatosis (Acute) Impairment of balance (Acute) Chronic vertigo (Acute) Medical History Anxiety Acid reflux 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 Osteonecrosis bone of left hip 04/23/24 CT evidence of a vascular necrosis of left hip Alcohol abuse Gallstone (~08/2024) Surgical History 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) Cyst of right upper eyelid Family History Maternal Grandfather Alcohol abuse Maternal Uncle Alcohol abuse Social History Smoking/Tobacco Use Status: Current every day Tobacco Type: cigarettes Years smoked: 25 Smoking risk assessment performed?: Yes Alcohol Intake: current Alcohol Intake frequency: 3 or more drinks per day Counseling given: Yes Drug use: Occasionally Substance use type: does not use Housing: apartment 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 Time Spent with Patient Time Spent with Patient: <45 minutes Time was spent: preparing to see the patient(eg.review tests), obtaining and/or reviewing separately otained hiistory, ordering medications,tests, procedures, referring, communicating with other health child care center administrator, indepentently interpreting results, counseling the patient and care coordination
--- NOTE | 2025-06-24 17:03 | PDOC.CMDIS ---
Date of service: 06/24/25 Time of Service: 08:30 LACE Index Scoring Tool Questions: Length of Stay (in days): 2 Was the patient admitted via the E.D.?: Yes E.D. Visits: 10 Answers: Total Score: 9 Risk of Readmission: Low Risk Care Management Discharge Plan Reason for Hospitalization: ETOH withdrawal Discharge Plan: Paul was discharged home this morning with no new home care services. He will f/u with his PCP and continue engaging with his [employer]. He intends to get a job and start attending AA meetings. Paul was transported home via [facility] Patient/Family Education Needs: Review of discharge instructions, activity, limitations and discuss Ask me 3. SDOH Health Related Social Needs: Health related social needs house/econ circumstance finding work lonely/isolated Health related social needs details Worried about not having enough money when he leaves hospital
== END 2025-06-24 08:00 | disposition home or self-care (01) | DRG 897 ==
LOC: ER 06-22 00:22 → ICU 06-22 08:06
PROVIDERS: Emergency Medicine Emergency Medical Services; Admitting Provider Family Medicine; Emergency Provider General Practice; PCP Nurse Practitioner Family; Responsible Provider Family Medicine; Visit Provider Family Medicine
DX: F10.239 Alcohol dependence with withdrawal, unspecified (principal); K86.0 Alcohol-induced chronic pancreatitis; F17.210 Nicotine dependence, cigarettes, uncomplicated; Y90.8 Blood alcohol level of 240 mg/100 ml or more; R07.9 Chest pain, unspecified; K59.00 Constipation, unspecified; R42 Dizziness and giddiness; K76.0 Fatty (change of) liver, not elsewhere classified; F41.9 Anxiety disorder, unspecified; K21.9 Gastro-esophageal reflux disease without esophagitis; D53.1 Other megaloblastic anemias, not elsewhere classified; Z96.641 Presence of right artificial hip joint; E83.42 Hypomagnesemia; E87.6 Hypokalemia; Z59.868 Other specified financial insecurity; Z59.89 Other problems related to housing and economic circumstances; F10.229 Alcohol dependence with intoxication, unspecified
CPT/HCPCS: 00123; 36415; 80048; 80053; 80076; 80307; 83690; 87637; 96365; 96366; 97112; 97162; 97530; 99285; J1650; 80320; 81003; 83735; 84100; 84484; 85025; 85610; 99222; 99232; 99238; J2405; J2560; J3411; J3475

== ENCOUNTER 2025-06-27 22:42 | Inpatient (IN) | payer MEDICAID, SELFPAY ==
[2025-06-27 22:44] VITALS: BP 137/80; PULSE 110; RESP 24; TEMP 36.4
--- NOTE | 2025-06-27 22:56 | W.ED.GENAD ---
Discharge Plan Discharge Details Chief Complaint: ETOHWithdr Clinical Impression: Alcohol intoxication, Acute dehydration, Metabolic acidosis, increased anion gap Primary Care Provider: OWEN GARRISON ED Provider: Alejandro Thomas Home Meds and New Rx's Prescriptions: No Action multivitamin [Multiple Vitamins] Tablet 1 tab PO QAM Qty: 90 0RF melatonin 3 mg Tablet 6 mg PO HS Qty: 60 0RF folic acid 1 mg Tablet 1 mg PO QAM Qty: 30 0RF thiamine mononitrate (vit B1) [Vitamin B-1 (mononitrate)] 100 mg Tablet 100 mg PO QAM Qty: 30 0RF naltrexone 50 mg tablet 50 mg PO DAILY Qty: 30 0RF Rx Instructions: take until you get the naltrexone shot HPI General Date/Time Provider Initiated Documentation: 06/27/25 22:55. HPI Narrative: This is a pleasant 50-year-old male with a past medical history of severe chronic alcoholism, pancreatitis, smoking use, hepatic steatosis who presents today for evaluation of alcohol intoxication. Patient called 911 and EMS while he was intoxicated. He states he drank half a gallon of vodka today which was slightly more than normal for him. He admits to mild epigastric discomfort and burning sensation, but no chest pain or shortness of breath. He denies any hematemesis but does admit to 1 or 2 episodes of vomiting. He denies fever or chills. No headache, no falls or trauma. No other complaints at this time. Related Data Home Medications Medication Instructions Recorded Confirmed folic acid 1 mg tablet 1 mg PO QAM #30 tabs 06/24/25 melatonin 3 mg tablet 6 mg (2 x 3 mg) PO HS #60 tabs 06/24/25 multivitamin (Multiple Vitamins 1 tab PO QAM #90 tabs 06/24/25 tablet) naltrexone 50 mg tablet 50 mg PO DAILY #30 tabs 06/24/25 thiamine mononitrate (vit B1) 100 100 mg PO QAM #30 tabs 06/24/25 mg tablet (Vitamin B-1 (mononitrate)) Previous Rx's Medication Instructions Recorded folic acid 1 mg tablet 1 mg PO QAM #30 tabs 06/24/25 melatonin 3 mg tablet 6 mg (2 x 3 mg) PO HS #60 tabs 06/24/25 multivitamin (Multiple Vitamins 1 tab PO QAM #90 tabs 06/24/25 tablet) naltrexone 50 mg tablet 50 mg PO DAILY #30 tabs 06/24/25 thiamine mononitrate (vit B1) 100 100 mg PO QAM #30 tabs 06/24/25 mg tablet (Vitamin B-1 (mononitrate)) Allergies Allergy/AdvReac Type Severity Reaction Status Date / Time hydromorphone (From Dilaudid) AdvReac Intermediate Other (See Verified 06/21/25 18:34 Comment) General Stated Complaint: ETOHWithdr SARAH: 3 Exam Narrative Exam Narrative: 1.Const: Well-nourished, Well-developed, appearing stated age 2.Eyes: PERRL, no conjunctival injection, and symmetrical lids. 3.ENT: Atraumatic external nose and ears. Moist MM. Neck: Symmetric, trachea midline, No thyromegaly. 4.CVS: +S1/S2, Peripheral pulses 2+ and equal in all extremities. Brisk capillary refill in all extremities. 5.RESP: Unlabored respiratory effort. Clear to auscultation bilaterally. No wheezes rales or rhonchi 6.GI: Soft, Nontender/Nondistended, No hepatosplenomegaly. No guarding or rebound. No pain at McBurney's point, negative Monsivais sign 7.MSK: Normocephalic/Atraumatic, Extremities w/o deformity or ttp No cyanosis or clubbing, Normal movement of all extremities 8.Skin: Warm, Dry. No rashes or lesions. 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 Sensation grossly intact, no focal neurologic deficits. 10.Psych: (AAO) x3. Appropriate mood and affect, albeit mildly intoxicated Course Vital Signs Vital signs: Vital Signs Temperature 36.4 C L 06/27/25 22:44 Pulse 110 H 06/27/25 22:44 Respiratory Rate 24 06/27/25 22:44 Blood Pressure 137/80 06/27/25 22:44 Temperature 36.4 C L 06/27/25 22:44 Temperature Source Oral 06/27/25 22:44 Pulse 110 H 06/27/25 22:44 Respiratory Rate 24 06/27/25 22:44 Blood Pressure 137/80 06/27/25 22:44 Medical Decision Making This is a pleasant 50-year-old male with a past medical history of severe chronic alcoholism, pancreatitis, smoking use, hepatic steatosis who presents today for evaluation of alcohol intoxication. Patient called 911 and EMS while he was intoxicated. He states he drank half a gallon of vodka today which was slightly more than normal for him. He admits to mild epigastric discomfort and burning sensation, but no chest pain or shortness of breath. He denies any hematemesis but does admit to 1 or 2 episodes of vomiting. He denies fever or chills. No headache, no falls or trauma. No other complaints at this time. Exam demonstrates an intoxicated male, no signs of trauma, vital signs stable, glucose normal per EMS. Symptoms appear consistent with alcohol intoxication. We will rehydrate, check electrolytes, give a banana bag secondary to a high likelihood of chronic alcohol related vitamin deficiency, will monitor closely and reassess. 1am Laboratory workup shows minimally elevated white count, however patient does have metabolic acidosis secondary to low bicarb, patient has notably elevated anion gap of 29, transaminases are stable, lipase is slightly high at 100. Alcohol notably elevated. Banana bag and a liter of lactated Ringer's has been ordered. We will rehydrate throughout the night, monitor closely and reassess in the morning for sobriety. Patient was having minor shakes and jitteriness. He was given 50 of Librium to help with this. 7:02 AM On reassessment patient is certainly notably more clinically sober, but still states he feels quite weak. Repeat electrolytes after fluids demonstrate a slightly improving anion gap, and still a notably low bicarb. While the patient is improving clinically with these number still quite off I do feel that he would benefit from additional fluids. Will give an additional 1.5 L, plan for signout for reassessment of VBG alcohol level and basic metabolic panel after additional fluids. On reassessment patient's shows no signs of DTs or fulminant severe withdrawal. Quality:SDOH Health Related Social Needs: Health related social needs house/econ circumstance finding work lonely/isolated Health related social needs details Worried about not having enough money when he leaves hospital Critical Care Time Critical Care Time Critical Care Time: Yes Total Critical Care Time: 30 Attestation: Upon my evaluation, this patient had a high probability of imminent or life-threatening deterioration, which required my direct attention, intervention, and personal management. I have personally provided 30 minutes of critical care time exclusive of time spent on separately billable procedures. Time includes review of laboratory data, radiology results, discussion with consultants, and monitoring for potential decompensation. Interventions were performed as documented. [facility] All Active Problems (Updated 06/28/25 @ 07:05 by Alejandro Thomas DO) Metabolic acidosis, increased anion gap (Acute) Acute dehydration (Acute) Alcohol intoxication (Acute) Chest pain (Acute) Constipation (Acute) Pancreatitis (Chronic) Alcohol intoxication (Acute) Alcoholism, chronic (Chronic) Pancreatitis (Chronic) Gallbladder polyp (Acute) Postprandial RUQ pain (Acute) Gallbladder disease (Acute) Dizziness (Acute) Nicotine addiction (Chronic) Avascular necrosis of bone of left hip (Acute) Hepatic steatosis (Acute) Impairment of balance (Acute) Chronic vertigo (Acute) Medical History Anxiety Acid reflux 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 Osteonecrosis bone of left hip 04/23/24 CT evidence of a vascular necrosis of left hip Alcohol abuse Gallstone (~08/2024) Surgical History 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) Cyst of right upper eyelid Family History Maternal Grandfather Alcohol abuse Maternal Uncle Alcohol abuse Social History Smoking/Tobacco Use Status: Current every day Tobacco Type: cigarettes Years smoked: 25 Smoking risk assessment performed?: Yes Alcohol Intake: current Alcohol Intake frequency: 3 or more drinks per day Counseling given: Yes Drug use: Never Substance use type: does not use Housing: apartment 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
[2025-06-27 23:04] LABS: BE (Venous) -18 mmol/L (-2-3); HCO3 (Venous) 11 mmol/L (23-28); O2 Sat (Venous) 57 %; TCO2 (Venous) 11 mmol/L (24-29); pCO2 (Venous) 35 mmHg (41-51); pO2 (Venous) 38 mmHg
[2025-06-27 23:08] LABS: Abs Immature Grans 0.07 10^3/uL (0.0-0.06); HCT 43.7 % (40.0-50.0); HGB 14.8 g/dL (13.5-17.5); Immature Grans % 0.5 %; MCH 33.0 pg (27.0-33.0); MCHC 33.9 % (32.0-36.0); MCV 98 fL (80-95); MPV 9.2 fL (8.0-11.0); Platelet Count 196 10^3/uL (130-400); RBC 4.48 10^6/uL (4.36-5.78); RDW 12.6 % (11.8-14.1); RDW-SD 45.1 fL; WBC 13.22 10^3/uL (4.4-10.8)
[2025-06-27 23:15] VITALS: PULSE 97; RESP 16; O2SAT 95
[2025-06-27 23:20] VITALS: PULSE 96; PULSE 97; RESP 16; O2SAT 98
[2025-06-27 23:22] LABS: ALT 61 U/L (16-63); AST 58 U/L (15-37); Albumin 4.3 g/dL (3.4-5.0); Alkaline Phosphatase 128 U/L (46-116); Anion Gap 29.0 mmol/L (3-11); BUN 14 mg/dL (7-18); Bilirubin, Total 0.3 mg/dL (0.2-1.0); CO2 12.0 mmol/L (21.0-32.0); Calcium 8.8 mg/dL (8.5-10.1); Chloride 92 mmol/L (98-107); Glucose 85 mg/dL (74-106); Lipase 100 U/L (<78); Magnesium 1.7 mg/dL (1.8-2.4); Potassium 4.0 mmol/L (3.5-5.1); Sodium 133 mmol/L (136-145); Total Protein 9.1 g/dL (6.4-8.2)
[2025-06-27 23:30] VITALS: PULSE 97; RESP 18; O2SAT 95
[2025-06-27] MEDS: MULTIVITAMIN 10 ML, THIAMINE 100 MG, FOLIC ACID 1 MG, MAGNESIUM SULFATE 1,000 MG in Nor... 168.867 ML IV (23:31)
[2025-06-27 23:40] VITALS: PULSE 100; RESP 17; O2SAT 95
[2025-06-27 23:50] VITALS: PULSE 97; RESP 17; O2SAT 95
[2025-06-28] VITALS (134 sets, daily range): BP systolic 93–153; BP diastolic 55–76; PULSE 68–125; RESP 10–24; TEMP 36.9; O2SAT 93–99
[2025-06-28] MEDS: chlordiazePOXIDE 25 MG CAP 50 MG PO (01:06)
[2025-06-28] MEDS: Ketorolac 15 MG/ML VIAL IVP (01:06)
[2025-06-28] MEDS: Lactated Ringers 1,000 ML 1000 ML IV ×2 (05:47→07:09)
[2025-06-28 06:49] LABS: Anion Gap 24.0 mmol/L (3-11); BUN 12 mg/dL (7-18); CO2 13.0 mmol/L (21.0-32.0); Calcium 7.4 mg/dL (8.5-10.1); Chloride 94 mmol/L (98-107); Glucose 78 mg/dL (74-106); Potassium 4.4 mmol/L (3.5-5.1); Sodium 131 mmol/L (136-145)
[2025-06-28] MEDS: Lactated Ringers 500 ML IV (08:29)
[2025-06-28 09:40] LABS: BE (Venous) -12 mmol/L (-2-3); HCO3 (Venous) 14 mmol/L (23-28); O2 Sat (Venous) 78 %; TCO2 (Venous) 13 mmol/L (24-29); pCO2 (Venous) 28 mmHg (41-51); pO2 (Venous) 44 mmHg
[2025-06-28 09:52] LABS: Anion Gap 18.5 mmol/L (3-11); BUN 10 mg/dL (7-18); CO2 15.5 mmol/L (21.0-32.0); Calcium 7.5 mg/dL (8.5-10.1); Chloride 94 mmol/L (98-107); Glucose 97 mg/dL (74-106); Potassium 3.9 mmol/L (3.5-5.1); Sodium 128 mmol/L (136-145)
[2025-06-28] MEDS: oxyCODONE 5 MG TAB PO (11:37)
[2025-06-28] MEDS: Calcium Carbonate *TUMS* 500 MG CHEW 1000 MG PO (11:37)
[2025-06-28] MEDS: MORPHine 10 MG/ML VIAL 6 MG IVP (11:37)
[2025-06-28] MEDS: Pantoprazole 40 MG VIAL IVP (11:48)
--- NOTE | 2025-06-28 12:22 | W.PM.HP.N ---
Date of service: 06/28/25 Time of Service: 12:22 Assessment and Plan Assessment and plan (1) Alcohol withdrawal: Status: Acute Assessment and plan: -patient initially presented to the ED intoxicated and eventually began to withdraw -admit to the ICU under phenobarb protocol (2) Metabolic acidosis, increased anion gap: Status: Acute Assessment and plan: -secondary to EtOH -was up to 29, down to 18 s/p IV fluids -f/u AM BMP (3) Pancreatitis: Status: Chronic Assessment and plan: -acute on chronic with abdominal pain (though minimal increase in lipase to 100) -clear liquid diet -continue IV PRN pain meds (4) Hyponatremia: Status: Acute Assessment and plan: -secondary to EtOH use -asymptomatic -f/u AM BMP History of Present Illness History of Present Illness Chief Complaint: EtOH intoxication Narrative: 50yo male with PMH pancreatits, EtOH use and withdrawal who was last at [facility] for EtOH withdrawal from 06/21-06/24 who presents to the ED for EtOH intoxication Patient presented to the ED late on evening of 06.27.2025 with EtOH intoxication stating that he had consumed 1/2 gallon of vodka earlier in the day. He also stated that he had some mild abdominal discomfort. He denies any nausea, vomiting, SINGH, lightheadedness, dizziness, fever, diarrhea or constipation. In the ED the patient was noted to be intoxicated with an EtOH level of 334 with otherwise normal vital signs. His CBC was notable for a mild leukocytosis with WBC 13, CMP showed mild hyponatremia of 131, an anion gap of 29 and his lipase was 100. Patient was given IV fluids and his WBC and anion gap improved. However, late in the morning the patient began to complain of worsening abdominal pain concerning for acute pancreatitis. Patient was also found to be in the early stage of EtOH withdrawal. At which time ED provider paged hospitalist for admission of a patient in EtOH withdrawal and with acute pancreatitis. PFSH All Active Problems (Updated 06/28/25 @ 12:23 by Gustavo Zuniga MD) Hyponatremia (Acute) Alcohol withdrawal (Acute) Metabolic acidosis, increased anion gap (Acute) Acute dehydration (Acute) Alcohol intoxication (Acute) Chest pain (Acute) Constipation (Acute) Pancreatitis (Chronic) Alcohol intoxication (Acute) Alcoholism, chronic (Chronic) Pancreatitis (Chronic) Gallbladder polyp (Acute) Postprandial RUQ pain (Acute) Gallbladder disease (Acute) Dizziness (Acute) Nicotine addiction (Chronic) Avascular necrosis of bone of left hip (Acute) Hepatic steatosis (Acute) Impairment of balance (Acute) Chronic vertigo (Acute) Medical History Anxiety Acid reflux 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 Osteonecrosis bone of left hip 04/23/24 CT evidence of a vascular necrosis of left hip Alcohol abuse Gallstone (~08/2024) Surgical History 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) Cyst of right upper eyelid Family History Maternal Grandfather Alcohol abuse Maternal Uncle Alcohol abuse Social History Smoking/Tobacco Use Status: Current every day Tobacco Type: cigarettes Years smoked: 25 Smoking risk assessment performed?: Yes Alcohol Intake: current Alcohol Intake frequency: 3 or more drinks per day Counseling given: Yes Drug use: Never Substance use type: does not use Housing: apartment 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 Meds Allergies and Home Medications Allergies Allergy/AdvReac Type Severity Reaction Status Date / Time hydromorphone (From Dilaudid) AdvReac Intermediate Other (See Verified 06/21/25 18:34 Comment) Home Medications Medication Instructions Recorded Confirmed Type Unknown [No Known Home Meds] 06/28/25 06/28/25 History Exam Narrative Exam Narrative: Well-appearing gentleman laying in bed in no acute distress, ANO x 4, heart regular rhythm, lungs clear to auscultation bilaterally, abdomen soft, nontender, nondistended Results Labs 06/27/25 22:58 06/28/25 09:35 Labs: Laboratory Results - last 24 hr 06/27/25 06/28/25 06/28/25 22:58 06:20 09:35 WBC 13.22 H RBC 4.48 Hgb 14.8 Hct 43.7 MCV 98 H MCH 33.0 MCHC 33.9 RDW 12.6 Plt Count 196 MPV 9.2 Immature Gran % 0.5 Neutrophils % 80.6 Lymphocytes % 12.6 Monocytes % 5.3 Eosinophils % 0.7 Basophils % 0.3 Nucleated RBC % 0.2 Absolute Neutrophils 10.66 H Absolute Lymphocytes 1.67 Absolute Monocytes 0.70 Absolute Eosinophils 0.09 Absolute Basophils 0.04 VBG pH 7.11 L* 7.30 L VBG pCO2 35 L 28 L VBG pO2 38 44 VBG HCO3 11 L 14 L VBG Total CO2 11 L 13 L VBG O2 Saturation 57 78 VBG Base Excess -18 L -12 L Sodium 133 L 131 L 128 L Potassium 4.0 4.4 3.9 Chloride 92 L 94 L 94 L Carbon Dioxide 12.0 L 13.0 L 15.5 L Anion Gap 29.0 H 24.0 H 18.5 H BUN 14 12 10 Creatinine 0.9 0.8 0.6 L Est GFR (CKD-EPI 2020) 104.70 108.49 118.34 Glucose 85 78 97 Calcium 8.8 7.4 L 7.5 L Magnesium 1.7 L Total Bilirubin 0.3 AST 58 H ALT 61 Alkaline Phosphatase 128 H Total Protein 9.1 H Albumin 4.3 Lipase 100 H Ethyl Alcohol 334.2 H 59.1 H Last Vital Signs Temp 97.5 F L 06/27/25 22:44 Pulse 103 H 06/28/25 11:44 Resp 24 06/28/25 11:20 BP 119/64 06/28/25 11:31 Pulse Ox 98 06/28/25 11:44 PAWSS Have you Been Recently Intoxicated or Drunk Within the Last 30 days?: Yes Have you Ever Experienced Previous Episodes of Alcohol Withdrawal?: Yes Have you ever Experienced Withdrawal Seizures?: No Have you ever Experienced Delirium Tremens(DT)s?: No Have you ever undergone Alcohol Rehabilitation Treatment (i.e, inpt ot outpatient treatment programs)?: Yes Have you ever Experienced Blackouts?: Yes Result: 4 Time Spent Time spent with Patient: >75 minutes Time was spent: preparing to see the patient(eg.review tests), obtaining and/or reviewing separately otained hiistory, ordering medications,tests, procedures, referring, communicating with other health manager wound care, indepentently interpreting results, counseling the patient and care coordination
--- NOTE | 2025-06-28 13:24 | W.PCEDHO ---
Registration Status: REG ER Primary Language: Preferred Language: Turkmen ED Information & Data Chief Complaint ETOHWithdr 06/27/25 23:30 Chief Complaint ETOHWithdr 06/27/25 22:58 Triage Note PT is concerned about 06/27/25 22:44 substantial etoh consumption tonight (more than his normal). Is feeling a burning pain in abd. 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 Osteonecrosis Alcohol abuse Gallstone (~08/2024) (Last Reviewed 06/21/25 @ 23:53 by Jer Swartz) 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) Cyst of right upper eyelid Most Recent Vital Signs Temperature 36.4 C L 06/27/25 22:44 Temperature Source Oral 06/27/25 22:44 Pulse 80 06/28/25 12:50 Pulse Rhythm Regular 06/28/25 05:50 Pulse Strength Normal 06/28/25 05:50 Pulse 81 06/28/25 12:50 Respiratory Rate 21 06/28/25 12:50 Respiratory Effort Normal, Non-Labored 06/28/25 05:50 Respiratory Depth Normal 06/28/25 05:50 Respiratory Pattern Normal 06/28/25 12:55 Blood Pressure 119/64 06/28/25 11:31 Blood Pressure Mean 79 06/28/25 11:31 Blood Pressure Position Supine 06/28/25 05:50 Pulse Oximetry 95 06/28/25 12:50 Oxygen Delivery Method Room Air 06/28/25 05:50 Oxygen Flow Rate 0 06/28/25 05:50 Allergies hydromorphone (From Dilaudid) Adverse Reaction (Intermediate, Verified 06/21/25 18:34) Other (See Comment) Nausea. Dont give me that stuff. IV IV Catheter Type [Right Peripheral IV Forearm] IV Catheter Gauge [Right 18 Forearm] Diagnostics 06/28/25 06/28/25 06/27/25 Range/Units 09:35 06:20 22:58 WBC 13.22 H (4.4-10.8) 10^3/uL RBC 4.48 (4.36-5.78) 10^6/uL Hgb 14.8 (13.5-17.5) g/dL Hct 43.7 (40.0-50.0) % MCV 98 H (80-95) fL MCH 33.0 (27.0-33.0) pg MCHC 33.9 (32.0-36.0) % RDW 12.6 (11.8-14.1) % Plt Count 196 (130-400) 10^3/uL MPV 9.2 (8.0-11.0) fL Immature Gran % 0.5 % Neutrophils % 80.6 % Lymphocytes % 12.6 % Monocytes % 5.3 % Eosinophils % 0.7 % Basophils % 0.3 % Nucleated RBC % 0.2 (0.0-0.3) % Absolute Neutrophils 10.66 H (1.2-6.7) 10^3/uL Absolute Lymphocytes 1.67 (1.2-3.4) 10^3/uL Absolute Monocytes 0.70 (0.1-0.8) 10^3/uL Absolute Eosinophils 0.09 (0.0-0.7) 10^3/uL Absolute Basophils 0.04 (0.0-0.2) 10^3/uL VBG pH 7.30 L 7.11 L* (7.31-7.41) VBG pCO2 28 L 35 L (41-51) mmHg VBG pO2 44 38 mmHg VBG HCO3 14 L 11 L (23-28) mmol/L VBG Total CO2 13 L 11 L (24-29) mmol/L VBG O2 Saturation 78 57 % VBG Base Excess -12 L -18 L (-2-3) mmol/L Sodium 128 L 131 L 133 L (136-145) mmol/L Potassium 3.9 4.4 4.0 (3.5-5.1) mmol/L Chloride 94 L 94 L 92 L (98-107) mmol/L Carbon Dioxide 15.5 L 13.0 L 12.0 L (21.0-32.0) mmol/L Anion Gap 18.5 H 24.0 H 29.0 H (3-11) mmol/L BUN 10 12 14 (7-18) mg/dL Creatinine 0.6 L 0.8 0.9 (0.70-1.30) mg/dL Est GFR (CKD-EPI 2020) 118.34 108.49 104.70 (mL/min/1.73m2) Glucose 97 78 85 (74-106) mg/dL Calcium 7.5 L 7.4 L 8.8 (8.5-10.1) mg/dL Magnesium 1.7 L (1.8-2.4) mg/dL Total Bilirubin 0.3 (0.2-1.0) mg/dL AST 58 H (15-37) U/L ALT 61 (16-63) U/L Alkaline Phosphatase 128 H (46-116) U/L Total Protein 9.1 H (6.4-8.2) g/dL Albumin 4.3 (3.4-5.0) g/dL Lipase 100 H (<78) U/L Ethyl Alcohol 59.1 H 334.2 H (<10) mg/dL Intake and Output - 24 Hour Total 06/27/25 22:39 thru 06/28/25 08:30 Intake Total 3013.2 Output Total 850 Balance 2163.2 Weight 63.503 kg Intake: IV 3013.2 Output: Urine 850 Falls Risk Assessment History of Falls No History 06/27/25 23:30 Contributing Factors No Factors 06/27/25 23:30 Ambulatory Aids Independent 06/27/25 23:30 Tubes/Lines None 06/27/25 23:30 Gait Evaluation No gait disturbance 06/27/25 23:30 Cognition No cognitive impairment 06/27/25 23:30 Fall Total Score 0 06/27/25 23:30 Level of Risk Standard/Low Risk 06/27/25 23:30 Problems (Last Reviewed 06/21/25 @ 23:53 by Jer Swartz) Hyponatremia (Acute) Alcohol withdrawal (Acute) Metabolic acidosis, increased anion gap (Acute) Acute dehydration (Acute) Alcohol intoxication (Acute) Pancreatitis (Chronic) Attestation Statement: By documenting the first initial, last name, and credentials of the reporting nurse below, both parties acknowledge that all relevant information regarding the patient handoff has been communicated, and that all questions have been addressed to ensure continuity and safety of care. Additional Patient Information/Comments: Report Received From: Lisa Marley RN
[2025-06-28] MEDS: Normal Saline Flush 10 ML SYR IVP ×4 (13:28→22:38)
[2025-06-28] MEDS: PHENobarbital 130 MG/ML VIAL IVP (13:28)
[2025-06-28] MEDS: Ondansetron 4 MG/2 ML VIAL IVP (14:32)
[2025-06-28] MEDS: MORPHine 4 MG/ML SYR IVP ×3 (14:34→22:39)
[2025-06-28] MEDS: MULTIVITAMIN 10 ML, THIAMINE 100 MG, FOLIC ACID 1 MG in DEXTROSE 5%-0.45% SALINE 1,000 ML 42 ML IV (15:01)
--- NOTE | 2025-06-28 16:31 | PDOC.CMIN ---
Date of service: 06/28/25 Time of Service: 16:31 Care Management Initial Assmt Initial Assessment Reason for Hospitalization: ETOH withdrawal, acute pancreatitis Functional Status/Living Situation Patient Presentation: CM met with Paul, who was awake and lying in bed at the time of the visit. He was accompanied by his friend, Tita. Paul was discharged on 06/24 following an admission for alcohol withdrawal. He presented to the ED yesterday evening for evaluation of alcohol intoxication. Paul currently resides in an apartment in [facility]. His parents, who live in [place], and his sister, who resides in [place], remain very supportive. Paul does not have any children. Since his discharge, Paul reports he has been unable to secure employment, which he identifies as one of his primary goals. He has applied for a position at [employer] but has not yet received a response. Paul reports accessing the [employer] [facility] food [employer] twice per month and states that he can also obtain food within his building as needed. Paul acknowledges that he has not attended any AA meetings or met with his organ recovery coordinator since discharge. He plans to contact Ron, his organ recovery coordinator, this evening, and Tita indicated she would also attempt to reach out to him tomorrow. Paul states would like to reach out to Ron before CM contacting the recovery coaches. Paul expressed difficulty with his phone, which currently allows texting but not calls. CM encouraged him to bring the phone to his carrier’s location in [facility] for assistance. Paul also shared concerns regarding his ability to afford housing due to his current unemployment. With his consent, ZOHREH submitted a referral to Monica for housing assistance. ZOHREH will continue to follow. Town of Residence: [facility] Resides with: Alone Significant Other/Family: Local Natural Supports: family Employment Status: Unemployed Instrumental Activities of Daily Living (ADLs): Independent Medications Medication Management: No Issues/Barriers identified Advance Directives Advance Directives: Do you have an Advance Directive: N 11/22/16, 19:40 AD On File at [facility]: N 11/22/16, 19:40 Date Asked 06/28/25 Today, 12:31 AD Date Reviewed COLST On File at [facility] No 03/30/24, 17:21 COLST Date Scanned Code Status Resuscitation Status Full Code Portal Pt does not currently have a portal and education provided: Yes Insurance Coverage/Financial Issues Insurance: Medicaid of [place] - [id number] Care Team Visit Care Team Role Provider Type OWEN GARRISON NP Primary Care Provider NON-[facility] STAFF PHYSICIAN Isreal Macdonald MD Emergency Provider [facility] STAFF PHYSICIAN Gustavo Zuniga MD Admit Provider [facility] STAFF PHYSICIAN Attending Provider Discharge Potential Discharge Needs: PCP F/U Appt Anticipated Barriers to Discharge: None Identified Patient/Family Education Needs: Review discharge instructions, discuss Ask Me Three Transportation: [facility] Plan: Anticipate Paul will be discharged home with no new services when medically cleared. He does intend to continue to meet with his [employer] Faculty Member and hopes to be able to complete the 90 meetings in 90 days recommended by [employer]. Paul will follow up with his PCP and plan of care and will transport home via [facility]. CM will follow and continue to assess for discharge needs. Social Determinants of Health Screening Social Determinants of health last assessed in clinic: 06/28/25 Will the Patient Participate in the Screening?: Yes Do you worry about having a steady place to live?: yes What is your living situation today?: I have housing today, but am worried about losing it Problems where you live: no known problems In the past 12 months, have you had to go without electric, gas, oil or water in your home?: no 1. Within the past 12 months, we worried whether our food would run out before we got money to buy more.: Never true 2. Within the past 12 months, the food we bought just didn't last and we didn't have money to get more.: Never true Has lack of transportation kept you from medical appointments or from doing things needed for daily living?: yes Has anyone in your life made you feel unsafe or unsupported?: no How hard is it for you to pay for the very basics like food, housing, medical care, and heating? Would you say it is:: Very hard Do you want help finding or keeping work or a job?: Yes, help finding work If for any reason you need help with day-to-day activities such as bathing, preparing meals, shopping, managing finances, etc., do you get the help you need?: I don’t need any help How often do you feel lonely or isolated from those around you?: Never Do you speak a language other than East Timorese at home?: No Does the patient want assistance with any of the above?: Yes Health Related Social Needs Health related social needs: housing instability, housed, with risk of homelessness (Z59.811), transportation insecurity (Z59.82), problems related to housing/economic circumstances (Z59.89) and problems finding work (Z56.9) Health related social needs details: See above [facility] All Active Problems (Updated 06/28/25 @ 12:23 by Gustavo Zuniga MD) Hyponatremia (Acute) Alcohol withdrawal (Acute) Metabolic acidosis, increased anion gap (Acute) Acute dehydration (Acute) Alcohol intoxication (Acute) Chest pain (Acute) Constipation (Acute) Pancreatitis (Chronic) Alcohol intoxication (Acute) Alcoholism, chronic (Chronic) Pancreatitis (Chronic) Gallbladder polyp (Acute) Postprandial RUQ pain (Acute) Gallbladder disease (Acute) Dizziness (Acute) Nicotine addiction (Chronic) Avascular necrosis of bone of left hip (Acute) Hepatic steatosis (Acute) Impairment of balance (Acute) Chronic vertigo (Acute) Medical History Anxiety Acid reflux 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 Osteonecrosis bone of left hip 04/23/24 CT evidence of a vascular necrosis of left hip Alcohol abuse Gallstone (~08/2024) Surgical History 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) Cyst of right upper eyelid Family History Maternal Grandfather Alcohol abuse Maternal Uncle Alcohol abuse Social History Smoking/Tobacco Use Status: Current every day Tobacco Type: cigarettes Years smoked: 25 Smoking risk assessment performed?: Yes Alcohol Intake: current Alcohol Intake frequency: 3 or more drinks per day Counseling given: Yes Drug use: Never Substance use type: does not use Housing: apartment 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 Readmission Within the Past 30 Days Yes or No: No
[2025-06-28] MEDS: Acetaminophen 500 MG TAB 1000 MG PO (16:57)
[2025-06-28] MEDS: Ibuprofen 600 MG TAB PO (19:45)
[2025-06-28] MEDS: Nicotine 14 MG/24 HR PATCH TD (21:29)
[2025-06-29] VITALS (34 sets, daily range): BP systolic 96–135; BP diastolic 56–83; PULSE 57–77; RESP 9–22; TEMP 36.8–37.6; O2SAT 93–99
[2025-06-29] MEDS: Acetaminophen 500 MG TAB 1000 MG PO ×2 (00:26→06:44)
[2025-06-29] MEDS: MORPHine 4 MG/ML SYR IVP ×5 (02:46→20:50)
[2025-06-29 05:44] LABS: HCT 30.2 % (40.0-50.0); MCH 32.8 pg (27.0-33.0); MCHC 35.1 % (32.0-36.0); MPV 9.4 fL (8.0-11.0); Platelet Count 112 10^3/uL (130-400); RBC 3.23 10^6/uL (4.36-5.78); RDW 12.3 % (11.8-14.1); RDW-SD 42.1 fL; WBC 5.23 10^3/uL (4.4-10.8)
[2025-06-29 05:50] LABS: HGB 10.6 g/dL (13.5-17.5); MCV 94 fL (80-95)
[2025-06-29 06:06] LABS: ALT 38 U/L (16-63); AST 27 U/L (15-37); Albumin 3.2 g/dL (3.4-5.0); Alkaline Phosphatase 89 U/L (46-116); Anion Gap 8.3 mmol/L (3-11); BUN 6 mg/dL (7-18); Bilirubin, Total 0.7 mg/dL (0.2-1.0); CO2 25.7 mmol/L (21.0-32.0); Calcium 8.5 mg/dL (8.5-10.1); Chloride 99 mmol/L (98-107); Glucose 103 mg/dL (74-106); Magnesium 1.6 mg/dL (1.8-2.4); Potassium 3.3 mmol/L (3.5-5.1); Sodium 133 mmol/L (136-145); Total Protein 6.6 g/dL (6.4-8.2)
[2025-06-29] MEDS: Normal Saline Flush 10 ML SYR IVP ×4 (06:44→20:43)
[2025-06-29] MEDS: Ibuprofen 600 MG TAB PO ×4 (08:47→20:19)
[2025-06-29] MEDS: Enoxaparin 40 MG/0.4 ML SYR SC (08:48)
[2025-06-29] MEDS: MAGNESIUM SULFATE 2 GM/50 ML BAG IV_INF (09:33)
--- NOTE | 2025-06-29 09:53 | W.PM.PROGNOT ---
Date of Service Date of service: 06/29/25 Time of Service: 08:00 Assessment and Plan Assessment and plan (1) Alcohol withdrawal: Status: Resolved Assessment and plan: -patient initially presented to the ED intoxicated and eventually began to withdraw -admit to the ICU under phenobarb protocol June 29: Resolved. Off EtOH withdrawal protocol. Downgrade to medsur to continue pancreatitis treatment. (2) Metabolic acidosis, increased anion gap: Status: Resolved Assessment and plan: -secondary to EtOH -was up to 29, down to 18 s/p IV fluids -f/u AM BMP June 29: Resolved (3) Pancreatitis: Status: Chronic Assessment and plan: -acute on chronic with abdominal pain (though minimal increase in lipase to 100) -clear liquid diet -continue IV PRN pain meds June 29: continuing abdominal pain, continue PRN pain control, advance diet as tolerated. VTE ppx enoxaparin. (4) Hyponatremia: Status: Acute Assessment and plan: -secondary to EtOH use -asymptomatic -f/u AM BMP June 29: improving, likely chronic. Continue monitoring. Subjective Subjective Interval history since last seen: Mr. Layton is comfortable in bed. CIWA scores 0. He continues to have abdominal pain. Exam Narrative Exam Narrative: General: This is a pleasant man in mild distress due to abdominal pain HEENT: Normocephalic, atraumatic CV: RRR Resp: CTAB Abd: soft, NTND MSK: voluntary motion x4 Neuro: awake, alert, no focal deficits Objective Last Vital Signs Temp 36.8 C 06/29/25 07:06 Pulse 67 06/29/25 07:01 Resp 10 L 06/29/25 07:01 BP 110/82 06/29/25 07:01 Pulse Ox 98 06/29/25 07:01 Laboratory Results - last 24 hr 06/28/25 06/29/25 09:35 05:30 WBC 5.23 RBC 3.23 L Hgb 10.6 L D Hct 30.2 L MCV 94 D MCH 32.8 MCHC 35.1 RDW 12.3 Plt Count 112 L MPV 9.4 Sodium 128 L 133 L Potassium 3.9 3.3 L Chloride 94 L 99 Carbon Dioxide 15.5 L 25.7 Anion Gap 18.5 H 8.3 BUN 10 6 L Creatinine 0.6 L 0.6 L Est GFR (CKD-EPI 2020) 118.34 118.34 Glucose 97 103 Calcium 7.5 L 8.5 Magnesium 1.6 L Total Bilirubin 0.7 AST 27 ALT 38 Alkaline Phosphatase 89 Total Protein 6.6 Albumin 3.2 L Ethyl Alcohol 59.1 H PAWSS Have you Been Recently Intoxicated or Drunk Within the Last 30 days?: Yes Have you Ever Experienced Previous Episodes of Alcohol Withdrawal?: Yes Have you ever Experienced Withdrawal Seizures?: No Have you ever Experienced Delirium Tremens(DT)s?: Yes Have you ever undergone Alcohol Rehabilitation Treatment (i.e, inpt ot outpatient treatment programs)?: Yes Have you ever Experienced Blackouts?: Yes Have you ever Combined Alcohol with other Downers within the last 90 days?: No Have you ever Combined Alcohol with any other Substance of Abuse during the last 90 days?: No Positive Blood Alcohol level on Presentation? [PCS.BAL]: Yes Evidence of Increased Autonomic Activity (i.e. HR>120, tremor, sweating, agitation, nausea)?: Yes Result: 7 Time Spent with Patient Time Spent with Patient: 25-34 minutes Time was spent: preparing to see the patient(eg.review tests), obtaining and/or reviewing separately otained hiistory, ordering medications,tests, procedures, referring, communicating with other health outdoor emergency care technician, indepentently interpreting results, counseling the patient and care coordination
[2025-06-29] MEDS: Potassium Chloride 20 MEQ TABCR PO (10:19)
[2025-06-29] MEDS: Ondansetron 4 MG/2 ML VIAL IVP (10:24)
--- NOTE | 2025-06-29 11:59 | PHA.REVIEW2 ---
Pharmacy Admission Review Admission Clinical Review Admission Pharmacy Review: Hyponatremia (Acute) Alcohol withdrawal (Acute) Metabolic acidosis, increased anion gap (Acute) Acute dehydration (Acute) Alcohol intoxication (Acute) hydromorphone (From Dilaudid) Adverse Reaction (Intermediate, Verified 06/21/25 18:34) Other (See Comment) Resuscitation Status Full Code Height 5 ft 6 in Weight 68 kg Pharmacy Admission Review Renal Dosing Renal Dosing: BUN 6 mg/dL (7-18) L 06/29/25 05:30 Creatinine 0.6 mg/dL (0.70-1.30) L 06/29/25 05:30 Medications needing adjustments: Reviewed (CrCl 143 mL/min) List of meds needing interventions: Current medications are okay Anticoagulation Anticoagulation: Hgb 10.6 g/dL (13.5-17.5) L D 06/29/25 05:30 Hct 30.2 % (40.0-50.0) L 06/29/25 05:30 Plt Count 112 10^3/uL (130-400) L 06/29/25 05:30 Creatinine 0.6 mg/dL (0.70-1.30) L 06/29/25 05:30 DVT Prophylaxis: Reviewed Medications: Enoxaparin (40mg daily) Opiate Usage Evaluate Pain Scale/Pains Meds: Reviewed (morphine 4mg IVP q4h PRN - 24mg/24hrs) Scheduled Bowel Reg ordered if on Opiates?: No (PRN Miralax) Relevant Labs Relevant Labs: Sodium 133 mmol/L (136-145) L 06/29/25 05:30 Potassium 3.3 mmol/L (3.5-5.1) L 06/29/25 05:30 Chloride 99 mmol/L (98-107) 06/29/25 05:30 Magnesium 1.6 mg/dL (1.8-2.4) L 06/29/25 05:30 Electrolytes, C-Reactive P, ESR: Reviewed (potassium 20mEq PO and magnesium 2g IV given this morning) Cardiac Review BP, HR, EF%: Reviewed (BP and HR WNL) QTc Review QTc: Reviewed (432 from 06/21/25) IV to PO Switch IV Medications: Reviewed (morphine) Home Meds Home Med List reviewed: Reviewed Relevent Home Meds Not ordered & why?: Vivitrol (monthly injection) Current Meds Current Medication Order Review: Intervened Comments: Changed IV ED access order
--- NOTE | 2025-06-29 14:44 | PT.INIE ---
PT Notes Visit Reasons: ETOH withdrawal, acute pancreatitis Physical Therapy Inpatient Initial Evaluation Date: 06/29/2024 Referring Doctor: Ke Patrick MD PT Orders: PT CONSULT: Eval/Treat Precautions: Activity as tolerated. Standard. Fall risk. Patient Profile/Admitting Diagnosis: Paul is a 50-year-old male who recently was evaluated by this PT on 06/23/2025 for ETOH abuse and generalized weakness. He returned to the ED via EMS on 06/27/2025 intoxicated from drinking half a gallon of vodka that day. He is admitted to the ICU for management of ETOH withdrawal, metabollic acidosis, pancreatitis, and hyponatremia. PMHX: All Active Problems (Updated 06/28/25 @ 12:23 by Gustavo Zuniga MD) Hyponatremia (Acute) Alcohol withdrawal (Acute) Metabolic acidosis, increased anion gap (Acute) Acute dehydration (Acute) Alcohol intoxication (Acute) Chest pain (Acute) Constipation (Acute) Pancreatitis (Chronic) Alcohol intoxication (Acute) Alcoholism, chronic (Chronic) Pancreatitis (Chronic) Gallbladder polyp (Acute) Postprandial RUQ pain (Acute) Gallbladder disease (Acute) Dizziness (Acute) Nicotine addiction (Chronic) Avascular necrosis of bone of left hip (Acute) Hepatic steatosis (Acute) Impairment of balance (Acute) Chronic vertigo (Acute) Medical History Anxiety Acid reflux 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 Osteonecrosis bone of left hip 04/23/24 CT evidence of a vascular necrosis of left hip Alcohol abuse Gallstone (~08/2024) Surgical History 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) Cyst of right upper eyelid Social History/Home Situation: Lives alone in an apartment with 2 flights of steps to enter with a rail on one side. Independent with all aspects of ADLs prior to admission. 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 Equipment Owned/DME: [employer] SUBJECTIVE: Dizzy earlier today, resolved at time of evaluation. Worried about losing his job and not being able to pay his bills. Feels much better this afternoon compared to earlier today. Agreeable to trying out walking in the ICU hallway with PT. [place] shaky even with the walker. Needed to void urine prior to walking. OBJECTIVE: Observation: Resting in bed when PT came in. Telemtry monitoring in place. Mental Status: A and O x 4 Vital Signs: WNL as monitored via telemetry throughout session ROM: Right Upper Extremity: Shoulder Flexion WFL. Shoulder abduction WFL. Elbow flexion WFL. Wrist flexion WFL. Functional opening and closing of hand WFL. eft Upper Extremity: Shoulder Flexion WFL. Shoulder abduction WFL. Elbow flexion WFL. Wrist flexion WFL. Functional opening and closing of hand WFL. Right Lower Extremity: Hip flexion WFL. Hip abduction WFL. Knee flexion WFL. Ankle dorsiflexion WFL. Ankle plantarflexion WFL. Left Lower Extremity: Hip flexion WFL. Hip abduction WFL. Knee flexion WFL. Ankle dorsiflexion WFL. Ankle plantarflexion WFL. Strength: Right Upper Extremity: Shoulder flexors 4/5. Shoulder abductors 4/5. Elbow flexors 5/5. Elbow extensors 5/5. Loom Changeover Operator strong. Left Upper Extremity: Shoulder flexors 4/5. Shoulder abductors 4/5. Elbow flexors 5/5. Elbow extensors 5/5. Loom Changeover Operator strong. Right Lower Extremity: Hip flexors 4/5. Hip abductors 4/5. Knee flexors 5/5. Knee extensors 4/5. Ankle dorsiflexors 4/5. Ankle plantarflexors 5/5. Left Lower Extremity: Hip flexors 4/5. Hip abductors 4/5. Knee flexors 5/5. Knee extensors 4/5. Ankle dorsiflexors 4/5. Ankle plantarflexors 5/5. Bed Mobility/Transfers: Rolling modified independent Supine to sit stand by assist, needed use of rails Sit to stand contact guard assist with FWW Stand to sit contact guard assist with FWW Gait: Mildly ataxic and reported shakiness that was minimized with use of FWW. No LOB. Covered a distance of at least 187 feet with contact guard assist for safety. Minimal shortness of breath. [place] decreased. Minimal verbal cueing for AD management and overall safety. Stairs: Not assessed Balance: Static Sitting: Good Dynamic Sitting: Good Static Standing: Good Dynamic Standing: Fair Special Tests: Mobility Limitations Standardized Measure [facility] 6 clicks Basic Mobility Inpatient Short Form: Raw Score: 22 CMS Score:21% deficit 4-Stage Balance Test: Feet together 10 seconds Semi-tandem <10 seconds Full tandem deferred One-legged stance deferred Informed Consent/Education: Patient was instructed in purpose of PT consult and plan of care. Agreeable to proceed with plan of care. ASSESSMENT: Patient with severe chronic alcoholism who has had 2 admissions in the past week for ETOH abuse and withdrawal. He demonstrated functional mobility decline needing the use of a front-wheeled walker for all mobility ADL performance due to gait instability and generalized weakness from admitting diagnoses. Patient will require retraining in safe transfers and ambulation task performance without an assistive device. He will also need balance retraining while on admission and with PT services upon discharge to home. Patient presents with clinical signs and symptoms consistent with current/admitting diagnoses that have resulted to mobility limitations, gait instability, generalized weakness, and overall ADL decline as demonstrated by the following impairment level findings: 1. Impaired standing balance 2. Impaired activity tolerance 3. Generalized weakness Impairments are contributing to the following functional limitations: 1. Increased completion time for mobility ADL performance 2. Increased risk for falls Patient is assessed as a [id number] moderate complexity based on the following: History: 50-year-old male with past medical history as indicated above Examination: Demonstrable impairments and deficits as above Presentation: Evolving Decision Makin moderate complexity Goals: Goals X1 week 1. Supine-Sit independent 2. Sit-Supine independent 3. Sit-Stand independent 4. Stand-Sit independent 5. Bed-Chair independent 6. Chair-Bed independent 7. Independent gait on level surface with use of no device for at least 500 feet without report of pain nor dyspnea 8. Independent stair negotiation while holding onto bilateral rails for at least 12 steps x 2 without report of pain nor dyspnea 9. Independent with home exercise program 10. Good static and dynamic standing balance/tolerance Plan of Care/Treatment Plan: Patient will highly benefit from skilled physical therapy services including functional mobility training, bed mobility/transfer training, gait and balance training, therapeutic exercises, therapeutic activity, caregiver/staff/family education and training 1x/day, 7 days/week x 1 week. Plan of care has been reviewed with the ENSEMBLE MEMBER providing the service under Physical Therapy direction. Initiate Physical Therapy intervention for strengthening, bed mobility, transfers, gait, stairs, balance training, use of assistive device. Order DISCHARGE RECOMMENDATIONS: PT TREATMENT CODE/TIME: 37522 x 27 minutes for 1 unit (14:44-15:11). Thank you for the opportunity to participate in the care of this patient. Carey Trevino PT, DPT, CLT [facility] [place], [place]
[2025-06-29 16:25] LABS: HCT 31.4 % (40.0-50.0); HGB 10.8 g/dL (13.5-17.5)
[2025-06-29] MEDS: Nicotine 21 MG/24 HR PATCH TD (23:19)
[2025-06-30] MEDS: Acetaminophen 500 MG TAB 1000 MG PO ×3 (01:54→20:00)
[2025-06-30] MEDS: MORPHine 4 MG/ML SYR IVP ×2 (01:55→20:00)
[2025-06-30 06:46] LABS: HCT 32.0 % (40.0-50.0); HGB 11.3 g/dL (13.5-17.5); MCH 32.9 pg (27.0-33.0); MCHC 35.3 % (32.0-36.0); MCV 93 fL (80-95); MPV 10.5 fL (8.0-11.0); Platelet Count 124 10^3/uL (130-400); RBC 3.43 10^6/uL (4.36-5.78); RDW 12.7 % (11.8-14.1); RDW-SD 43.2 fL; WBC 4.26 10^3/uL (4.4-10.8)
[2025-06-30 06:59] LABS: Magnesium 1.7 mg/dL (1.8-2.4)
[2025-06-30 07:08] LABS: ALT 42 U/L (16-63); AST 32 U/L (15-37); Albumin 3.5 g/dL (3.4-5.0); Alkaline Phosphatase 79 U/L (46-116); Anion Gap 9.9 mmol/L (3-11); BUN 2 mg/dL (7-18); Bilirubin, Total 0.4 mg/dL (0.2-1.0); CO2 27.1 mmol/L (21.0-32.0); Calcium 9.0 mg/dL (8.5-10.1); Chloride 99 mmol/L (98-107); Glucose 89 mg/dL (74-106); Potassium 3.6 mmol/L (3.5-5.1); Sodium 136 mmol/L (136-145); Total Protein 7.2 g/dL (6.4-8.2)
[2025-06-30 07:57] VITALS: BP 127/86; PULSE 73; O2SAT 99
[2025-06-30 08:00] VITALS: BP 127/86; PULSE 84; RESP 20; TEMP 37; O2SAT 98
[2025-06-30] MEDS: Normal Saline Flush 10 ML SYR IVP ×3 (08:43→20:01)
[2025-06-30] MEDS: Ibuprofen 600 MG TAB PO ×4 (08:44→19:49)
[2025-06-30] MEDS: MAGNESIUM SULFATE 2 GM/50 ML BAG IV_INF (08:44)
[2025-06-30] MEDS: Enoxaparin 40 MG/0.4 ML SYR SC (08:44)
--- NOTE | 2025-06-30 11:44 | PT.INTREAT ---
PT Notes Visit Reasons: ETOH Withdrawal, Acute Pancreatitis Inpatient Physical Therapy Treatment Note [facility] Date: 06/30/25 SUBJECTIVE: Paul was hoping ot home today, but not sure they will let him as he is dealing with some pain. He feels like he can manage at home. OBJECTIVE: [] PAIN: pancreas pain which remains consistent VITALS: monitored by nsg. Therapeutic Activities ([id number]): Direct one-on-one instruction in dynamic activities to improve functional performance. BED MOBILITY/TRANSFERS pt seated in chair Sit-stand: S Stand-sit: S Provided skilled cues and instruction on performance and technique throughout. GAIT Assistive Device: FWW Weight bearing: FWB Assist: SBA Distance: approx 400' Deviation: fwd flexed posture STAIRS:ascend/descend 2, 6 steps and 3, 4 steps x2 with hand rail on left and SBA, reciprocal gait. ASSESSMENT: tolerated session well. No c/o SOB or fatigue. He did make a few comments regarding pain in his pancreas, but he was able to continue walking. Occasional ataxic type gait more so on the stairs this am. PLAN: will continue to progress his functional mobility to tolerance. Will try ambulation without an assistive device next session. TREATMENT CODE/TIME: 20 min. ([id number]) DISCHARGE RECOMMENDATION: home with HHPT
[2025-06-30 13:03] VITALS: BP 145/71; PULSE 76; RESP 20; TEMP 36.4; O2SAT 100
[2025-06-30 14:58] VITALS: BP 120/85; PULSE 64; RESP 20; TEMP 36.5; O2SAT 98
--- NOTE | 2025-06-30 15:47 | PDOC.CMPRO ---
Date of service: 06/30/25 Time of Service: 15:58 Care Management Progress Note Progress Note Text Progress Note Text: CM attempted to meet with Paul twice; however, he was sleeping during both visits. Paul has been transferred from the ICU to the medical-surgical unit. Per report, his alcohol withdrawal has resolved, though he continues to experience abdominal pain related to acute pancreatitis. He remains on a clear liquid diet. CM notified Monica regarding Paul’s previously discussed phone difficulties. Monica plans to contact him via the telephone in his room at the hospital. CM will follow. Discharge Potential Discharge Needs: PCP F/U Appt Anticipated Barriers to Discharge: None Identified Patient/Family Education Needs: Review discharge instructions, discuss Ask Me Three Transportation: Private vehicle Plan: Anticipate Paul will be discharged home with no new services when medically cleared. He does intend to continue to meet with his Hot Plate Plywood Press Laborer - Ron and hopes to be able to back to AA. It is recommended that Paul follow up with his community providers, support teams (including AA and Monica) and discharge plan of care. He will transport home via [facility] private vehicle vs friends. CM will follow and continue to assess for discharge needs. Social Determinants of Health Screening Social Determinants of health last assessed in clinic: 06/30/25 Will the Patient Participate in the Screening?: Yes Do you worry about having a steady place to live?: yes What is your living situation today?: I have housing today, but am worried about losing it Problems where you live: no known problems In the past 12 months, have you had to go without electric, gas, oil or water in your home?: no 1. Within the past 12 months, we worried whether our food would run out before we got money to buy more.: Don't know/refused 2. Within the past 12 months, the food we bought just didn't last and we didn't have money to get more.: Don't know/refused Has lack of transportation kept you from medical appointments or from doing things needed for daily living?: yes Has anyone in your life made you feel unsafe or unsupported?: no How hard is it for you to pay for the very basics like food, housing, medical care, and heating? Would you say it is:: Very hard Do you want help finding or keeping work or a job?: Yes, help finding work If for any reason you need help with day-to-day activities such as bathing, preparing meals, shopping, managing finances, etc., do you get the help you need?: I don’t need any help How often do you feel lonely or isolated from those around you?: Never Do you speak a language other than German at home?: No Does the patient want assistance with any of the above?: Yes Health Related Social Needs Health related social needs: housing instability, housed, with risk of homelessness (Z59.811), transportation insecurity (Z59.82), problems related to housing/economic circumstances (Z59.89) and problems finding work (Z56.9) Health related social needs details: See above
--- NOTE | 2025-06-30 15:54 | W.PC.ACHO ---
Registration Status: ADM IN Primary Language: Preferred Language: American ED Information & Data Chief Complaint ETOHWithdr 06/27/25 23:30 Chief Complaint ETOHWithdr 06/27/25 22:58 Triage Note PT is concerned about 06/27/25 22:44 substantial etoh consumption tonight (more than his normal). Is feeling a burning pain in abd. 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 Osteonecrosis Alcohol abuse Gallstone (~08/2024) (Last Reviewed 06/21/25 @ 23:53 by Jer Swartz) 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) Cyst of right upper eyelid Most Recent Vital Signs Temperature 36.5 C 06/30/25 14:58 Temperature Source Temporal Artery Scan 06/30/25 14:58 Pulse 64 06/30/25 14:58 Pulse Rhythm Regular 06/28/25 05:50 Pulse Strength Normal 06/28/25 05:50 Pulse 66 06/29/25 20:31 Respiratory Rate 20 06/30/25 14:58 Respiratory Effort Normal, Non-Labored 06/28/25 13:58 Respiratory Depth Normal 06/28/25 05:50 Respiratory Pattern Normal 06/28/25 12:55 Blood Pressure 120/85 06/30/25 14:58 Blood Pressure Mean 96 06/30/25 14:58 Blood Pressure Position Supine 06/28/25 13:58 Pulse Oximetry 98 06/30/25 14:58 Oxygen Delivery Method Room Air 06/30/25 14:58 Oxygen Flow Rate 0 06/30/25 14:58 Pain Level 7 06/30/25 13:03 Allergies hydromorphone (From Dilaudid) Adverse Reaction (Intermediate, Verified 06/21/25 18:34) Other (See Comment) Nausea. Dont give me that stuff. Active Medications Generic Name Dose Route Start Last Admin Trade Name Freq PRN Reason Stop Dose Admin Acetaminophen 1,000 mg 06/28/25 16:45 06/30/25 09:07 Acetaminophen 500 Mg Tab PO 1,000 mg Q6H PRN PRN Administration Enoxaparin Sodium 40 mg 06/29/25 08:30 06/30/25 08:44 Enoxaparin 40 Mg/0.4 Ml Syr SC 40 mg DAILY JOSSELYN Administration Ibuprofen 600 mg 06/28/25 20:00 06/30/25 12:38 Ibuprofen 600 Mg Tab PO 600 mg QID JOSSELYN Administration Morphine Sulfate 4 mg 06/28/25 14:03 06/30/25 01:55 Morphine 4 Mg/Ml Syr IVP 4 mg Q4H PRN PRN Administration Nicotine 21 mg 06/29/25 21:21 06/29/25 23:19 Nicotine 21 Mg/24 Hr Patch TD 21 mg DAILY PRN PRN Administration Ondansetron HCl 4 mg 06/28/25 14:17 06/29/25 10:24 Ondansetron 4 Mg/2 Ml Vial IVP 4 mg Q4H PRN PRN Administration Sodium Chloride 0 ml 06/27/25 22:55 06/29/25 20:43 Normal Saline Flush 10 Ml Syr IVP 10 ml PRN PRN Administration Sodium Chloride 0 ml 06/28/25 08:30 06/30/25 08:43 Normal Saline Flush 10 Ml Syr IVP 10 ml BID JOSSELYN Administration IV IV Catheter Type [Right Saline Lock Antecubital] IV Catheter Type [Right Upper Saline Lock arm] IV Catheter Type [Right Peripheral IV Forearm] IV Catheter Gauge [Right 20 Antecubital] IV Catheter Gauge [Right Upper 18 arm] IV Catheter Gauge [Right 18 Forearm] Diagnostics 06/30/25 06/29/25 Range/Units 05:34 16:15 WBC 4.26 L (4.4-10.8) 10^3/uL RBC 3.43 L (4.36-5.78) 10^6/uL Hgb 11.3 L 10.8 L (13.5-17.5) g/dL Hct 32.0 L 31.4 L (40.0-50.0) % MCV 93 (80-95) fL MCH 32.9 (27.0-33.0) pg MCHC 35.3 (32.0-36.0) % RDW 12.7 (11.8-14.1) % Plt Count 124 L (130-400) 10^3/uL MPV 10.5 (8.0-11.0) fL Sodium 136 (136-145) mmol/L Potassium 3.6 (3.5-5.1) mmol/L Chloride 99 (98-107) mmol/L Carbon Dioxide 27.1 (21.0-32.0) mmol/L Anion Gap 9.9 (3-11) mmol/L BUN 2 L (7-18) mg/dL Creatinine 0.5 L (0.70-1.30) mg/dL Est GFR (CKD-EPI 2020) 125.03 (mL/min/1.73m2) Glucose 89 (74-106) mg/dL Calcium 9.0 (8.5-10.1) mg/dL Magnesium 1.7 L (1.8-2.4) mg/dL Total Bilirubin 0.4 (0.2-1.0) mg/dL AST 32 (15-37) U/L ALT 42 (16-63) U/L Alkaline Phosphatase 79 (46-116) U/L Total Protein 7.2 (6.4-8.2) g/dL Albumin 3.5 (3.4-5.0) g/dL Intake and Output - 24 Hour Total 06/27/25 22:39 thru 06/30/25 15:23 Intake Total 6727.4 Output Total 6895 Balance -167.6 Weight 68 kg Intake: IV 4634.4 Oral 2093 Output: Urine 6895 Other: Urine Color Yellow Urine Appearance Clear Urine Odor Normal Comment per pt Falls Risk Assessment History of Falls No History 06/28/25 13:58 Contributing Factors Impairments,Medications 06/28/25 13:58 Ambulatory Aids Independent 06/28/25 13:58 Tubes/Lines With any additional score 06/28/25 13:58 Gait Evaluation W/any additional score 06/28/25 13:58 Cognition No cognitive impairment 06/28/25 13:58 Fall Total Score 46 06/28/25 13:58 Level of Risk Moderate Risk 06/28/25 13:58 Problems (Last Reviewed 06/21/25 @ 23:53 by Jer Swartz) Hyponatremia (Acute) Acute dehydration (Acute) Alcohol intoxication (Acute) Pancreatitis (Chronic) Attestation Statement: By documenting the first initial, last name, and credentials of the reporting nurse below, both parties acknowledge that all relevant information regarding the patient handoff has been communicated, and that all questions have been addressed to ensure continuity and safety of care. Additional Patient Information/Comments: Report at 1249 and pt arrived to unit at 1250. Report Received From: Shilpa Johns, [facility]
--- NOTE | 2025-06-30 17:05 | W.PM.PROGNOT ---
Date of Service Date of service: 06/30/25 Time of Service: 08:00 Assessment and Plan Assessment and plan (1) Alcohol withdrawal: Status: Resolved Assessment and plan: -patient initially presented to the ED intoxicated and eventually began to withdraw -admit to the ICU under phenobarb protocol June 29: Resolved. Off EtOH withdrawal protocol. Downgrade to medsur to continue pancreatitis treatment. (2) Metabolic acidosis, increased anion gap: Status: Resolved Assessment and plan: -secondary to EtOH -was up to 29, down to 18 s/p IV fluids -f/u AM BMP June 29: Resolved (3) Pancreatitis: Status: Chronic Assessment and plan: -acute on chronic with abdominal pain (though minimal increase in lipase to 100) -clear liquid diet -continue IV PRN pain meds June 29: continuing abdominal pain, continue PRN pain control, advance diet as tolerated. VTE ppx enoxaparin. June 30: He continues to have poor PO tolerance on clear liquids. Abdominal pain, some relief with PRN narcotics. Anticipate DC Jul 01. (4) Hyponatremia: Status: Resolved Assessment and plan: -secondary to EtOH use -asymptomatic -f/u AM BMP June 29: improving, likely chronic. Continue monitoring. Jun 30: resolved (5) Hypomagnesemia: Status: Acute Assessment and plan: Low magnesium, 1.6->1.7 despite repletion Will continue giving IV mag with morning check (6) Tobacco dependence: Status: Acute Assessment and plan: Nicotine patch (7) Thrombocytopenia: Status: Chronic Assessment and plan: Due to EtOH cirrhosis PLT improving 112->124 Subjective Subjective Interval history since last seen: Mr. Layton continues to have abdominal pain. He is tolerating clear liquids. Exam Narrative Exam Narrative: General: This is a pleasant man in mild distress due to abdominal pain HEENT: Normocephalic, atraumatic CV: RRR Resp: CTAB Abd: soft, NTND MSK: voluntary motion x4 Neuro: awake, alert, no focal deficits Objective Last Vital Signs Temp 36.5 C 06/30/25 14:58 Pulse 64 06/30/25 14:58 Resp 20 06/30/25 14:58 BP 120/85 06/30/25 14:58 Pulse Ox 98 06/30/25 14:58 Laboratory Results - last 24 hr 06/30/25 05:34 WBC 4.26 L RBC 3.43 L Hgb 11.3 L Hct 32.0 L MCV 93 MCH 32.9 MCHC 35.3 RDW 12.7 Plt Count 124 L MPV 10.5 Sodium 136 Potassium 3.6 Chloride 99 Carbon Dioxide 27.1 Anion Gap 9.9 BUN 2 L Creatinine 0.5 L Est GFR (CKD-EPI 2020) 125.03 Glucose 89 Calcium 9.0 Magnesium 1.7 L Total Bilirubin 0.4 AST 32 ALT 42 Alkaline Phosphatase 79 Total Protein 7.2 Albumin 3.5 PAWSS Have you Been Recently Intoxicated or Drunk Within the Last 30 days?: Yes Have you Ever Experienced Previous Episodes of Alcohol Withdrawal?: Yes Have you ever Experienced Withdrawal Seizures?: No Have you ever Experienced Delirium Tremens(DT)s?: Yes Have you ever undergone Alcohol Rehabilitation Treatment (i.e, inpt ot outpatient treatment programs)?: Yes Have you ever Experienced Blackouts?: Yes Have you ever Combined Alcohol with other Downers within the last 90 days?: No Have you ever Combined Alcohol with any other Substance of Abuse during the last 90 days?: No Positive Blood Alcohol level on Presentation? [PCS.BAL]: Yes Evidence of Increased Autonomic Activity (i.e. HR>120, tremor, sweating, agitation, nausea)?: Yes Result: 7 Time Spent with Patient Time Spent with Patient: 25-34 minutes Time was spent: preparing to see the patient(eg.review tests), obtaining and/or reviewing separately otained hiistory, ordering medications,tests, procedures, referring, communicating with other health palliative care nurse practitioner, indepentently interpreting results, counseling the patient and care coordination
[2025-06-30] MEDS: Ondansetron 4 MG/2 ML VIAL IVP (19:59)
[2025-06-30] MEDS: Nicotine 21 MG/24 HR PATCH TD (20:00)
[2025-06-30 20:09] VITALS: BP 116/85; PULSE 66; RESP 18; TEMP 36.6; O2SAT 99
[2025-06-30 23:03] VITALS: BP 104/57; PULSE 60; RESP 16; TEMP 36.6; O2SAT 96
[2025-07-01] MEDS: Normal Saline Flush 10 ML SYR IVP ×3 (00:08→21:41)
[2025-07-01] MEDS: MORPHine 4 MG/ML SYR IVP (00:08)
[2025-07-01 02:39] VITALS: BP 100/64; PULSE 54; RESP 16; TEMP 36.4; O2SAT 99
[2025-07-01] MEDS: Acetaminophen 500 MG TAB 1000 MG PO ×2 (05:40→21:40)
[2025-07-01 06:52] LABS: HCT 35.0 % (40.0-50.0); HGB 12.2 g/dL (13.5-17.5); MCH 32.7 pg (27.0-33.0); MCHC 34.9 % (32.0-36.0); MCV 94 fL (80-95); MPV 10.2 fL (8.0-11.0); Platelet Count 140 10^3/uL (130-400); RBC 3.73 10^6/uL (4.36-5.78); RDW 12.5 % (11.8-14.1); RDW-SD 43.3 fL; WBC 5.13 10^3/uL (4.4-10.8)
[2025-07-01 07:21] LABS: ALT 48 U/L (16-63); AST 54 U/L (15-37); Albumin 3.7 g/dL (3.4-5.0); Alkaline Phosphatase 84 U/L (46-116); Anion Gap 10.1 mmol/L (3-11); BUN 2 mg/dL (7-18); Bilirubin, Total 0.4 mg/dL (0.2-1.0); CO2 27.9 mmol/L (21.0-32.0); Calcium 9.5 mg/dL (8.5-10.1); Chloride 100 mmol/L (98-107); Glucose 91 mg/dL (74-106); Magnesium 1.8 mg/dL (1.8-2.4); Potassium 3.3 mmol/L (3.5-5.1); Sodium 138 mmol/L (136-145); Total Protein 7.7 g/dL (6.4-8.2)
[2025-07-01 08:04] VITALS: BP 114/82; PULSE 62; RESP 16; TEMP 36.6; O2SAT 98
[2025-07-01] MEDS: Enoxaparin 40 MG/0.4 ML SYR SC (08:47)
[2025-07-01] MEDS: Ibuprofen 600 MG TAB PO ×3 (08:47→21:40)
[2025-07-01] MEDS: traMADol 50 MG TAB PO (09:56)
--- NOTE | 2025-07-01 11:32 | PTTR_ITS ---
PT Notes Visit Reasons: ETOH Withdrawal, Acute Pancreatitis Date: 07/01/2025 PRECAUTIONS: Fall. Standard. Activity as tolerated. SUBJECTIVE: Pt in bed when approached for therapy this morning, Agreed to participating with therapy intervention OBJECTIVE: PAIN: 6/10 on left thoracic area radiating to the back VITALS: monitored by nursing Therapeutic Activities 94613: Direct one-on-one instruction in dynamic activities to improve functional performance. BED MOBILITY/TRANSFERS Rolling L/R: Supervision Supine-sit: Supervision Sit-supine: Supervision Sit-stand: Supervision Stand-sit: Supervision Bed-Chair: Supervision Chair-bed: Supervision Provided skilled cues and instruction on performance and technique throughout. Gait Training 17465: Direct one-on-one instruction and skilled instruction in: Movement sequencing Turning and movement with proper form Provided instruction in gait pattern Patient education regarding pacing and breathing techniques to maximize activity tolerance GAIT Assistive Device: No AD Weight bearing: FWB Assist: Supervision Distance: 600'x2 Deviation: unremarkable Stairs: step over step, 1 handrail, 2 flights of 12 steps 6 supervision Neuromuscular Re-education 10157: Activities that facilitate re-education of movement balance, posture, coordination, and proprioception or kinesthetic se nse, requiring skilled tactile and verbal cues Exercises/techniques: Sit to stand [id number] Standing without UE support 1min Walking sideways Walking backwards ASSESSMENT: pt tolerated activity well despite pain staying at the same intensity despite taking pain meds this morning. PLAN: Continue with balance training, global strengthening and general conditioning for improved safety, mobility and activity tolerance until pt is ready for DC. TREATMENT CODE/TIME: [id number], 23449m5 30mins (11:00-11:30am)
[2025-07-01 11:38] VITALS: BP 117/83; PULSE 76; RESP 20; TEMP 37.1; O2SAT 97
[2025-07-01] MEDS: oxyCODONE 5 MG TAB PO ×2 (13:41→21:39)
--- NOTE | 2025-07-01 15:11 | PGE_ITS ---
Date of Service Date of service: 07/01/25 Time of Service: 08:00 Assessment and Plan Assessment and plan (1) Alcohol withdrawal: Status: Resolved Assessment and plan: -patient initially presented to the ED intoxicated and eventually began to withdraw -admit to the ICU under phenobarb protocol June 29: Resolved. Off EtOH withdrawal protocol. Downgrade to medsurg to continue pancreatitis treatment. (2) Metabolic acidosis, increased anion gap: Status: Resolved Assessment and plan: -secondary to EtOH -was up to 29, down to 18 s/p IV fluids -f/u AM BMP June 29: Resolved (3) Pancreatitis: Status: Chronic Assessment and plan: -acute on chronic with abdominal pain (though minimal increase in lipase to 100) -clear liquid diet -continue IV PRN pain meds June 29: continuing abdominal pain, continue PRN pain control, advance diet as tolerated. VTE ppx enoxaparin. June 30: He continues to have poor PO tolerance on clear liquids. Abdominal pain, some relief with PRN narcotics. Anticipate DC Jul 01. July 01: improved PO tolerance but his pain has persisted. No BM since Monday. Zi continue supportive care. (4) Hyponatremia: Status: Resolved Assessment and plan: -secondary to EtOH use -asymptomatic -f/u AM BMP June 29: improving, likely chronic. Continue monitoring. Jun 30: resolved (5) Hypomagnesemia: Status: Resolved Assessment and plan: Low magnesium, 1.6->1.7 despite repletion Will continue giving IV mag with morning check July 01: resolved (6) Tobacco dependence: Status: Acute Assessment and plan: Nicotine patch (7) Thrombocytopenia: Status: Chronic Assessment and plan: Due to EtOH cirrhosis PLT improving 112->124->140 Subjective Subjective Interval history since last seen: Mr. Layton is comfortable in bed. Still with abdominal pain. He is very frustrated with his inability to stop drinking. He reports that he was thinking about the pain of pancreatitis last time he reached for a drink, and the thought of that pain was not a sufficient deterrent. He will resume AA meetings. Exam Narrative Exam Narrative: General: This is a pleasant man in mild distress due to abdominal pain HEENT: Normocephalic, atraumatic CV: RRR Resp: CTAB Abd: soft, NTND MSK: voluntary motion x4 Neuro: awake, alert, no focal deficits Objective Last Vital Signs Temp 37.1 C 07/01/25 11:38 Pulse 76 07/01/25 11:38 Resp 20 07/01/25 11:38 BP 117/83 07/01/25 11:38 Pulse Ox 97 07/01/25 11:38 Laboratory Results - last 24 hr 07/01/25 05:51 WBC 5.13 RBC 3.73 L Hgb 12.2 L Hct 35.0 L MCV 94 MCH 32.7 MCHC 34.9 RDW 12.5 Plt Count 140 MPV 10.2 Sodium 138 Potassium 3.3 L Chloride 100 Carbon Dioxide 27.9 Anion Gap 10.1 BUN 2 L Creatinine 0.5 L Est GFR (CKD-EPI 2020) 125.03 Glucose 91 Calcium 9.5 Magnesium 1.8 Total Bilirubin 0.4 AST 54 H ALT 48 Alkaline Phosphatase 84 Total Protein 7.7 Albumin 3.7 PAWSS Have you Been Recently Intoxicated or Drunk Within the Last 30 days?: Yes Have you Ever Experienced Previous Episodes of Alcohol Withdrawal?: Yes Have you ever Experienced Withdrawal Seizures?: No Have you ever Experienced Delirium Tremens(DT)s?: Yes Have you ever undergone Alcohol Rehabilitation Treatment (i.e, inpt ot outpatient treatment programs)?: Yes Have you ever Experienced Blackouts?: Yes Have you ever Combined Alcohol with other Downers within the last 90 days?: No Have you ever Combined Alcohol with any other Substance of Abuse during the last 90 days?: No Positive Blood Alcohol level on Presentation? [PCS.BAL]: Yes Evidence of Increased Autonomic Activity (i.e. HR>120, tremor, sweating, agitation, nausea)?: Yes Result: 7 Time Spent with Patient Time Spent with Patient: 25-34 minutes Time was spent: preparing to see the patient(eg.review tests), obtaining and/or reviewing separately otained hiistory, ordering medications,tests, procedures, referring, communicating with other health human services care specialist, indepentently interpreting results, counseling the patient and care coordination
[2025-07-01 15:35] VITALS: BP 111/67; PULSE 61; RESP 14; TEMP 36.2; O2SAT 95
--- NOTE | 2025-07-01 15:59 | PDOC.CMPRO ---
Date of service: 07/01/25 Time of Service: 15:59 Care Management Progress Note Progress Note Text Progress Note Text: Paul was sitting up in the bed when CM met with him today. He was very pleasant with CM. He is known to CM from his last admission. 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 He has reached out to Ron, his dramatic coach, but he is only able to text at this time. Paul had just had an oxycodone, and was feeling a little groggy when we met, and he asked to keep it short so he could take a nap. Discharge Potential Discharge Needs: PCP F/U Appt Anticipated Barriers to Discharge: None Identified Patient/Family Education Needs: Review discharge instructions, discuss Ask Me Three Transportation: [facility] Transportation: Private vechicle Plan: Anticipate Paul will be discharged home with no new services when medically cleared. He does intend to continue to meet with his Financial Solutions Advisor - Ron and hopes to be able to get back to . It is recommended that Paul follow up with his community providers, support teams (including AA and Monica) and discharge plan of care. He will transport home via [facility] private vehicle vs friends. CM will follow and continue to assess for discharge needs. Social Determinants of Health Screening Social Determinants of health last assessed in clinic: 07/01/25 Will the Patient Participate in the Screening?: Yes Do you worry about having a steady place to live?: yes What is your living situation today?: I have housing today, but am worried about losing it Problems where you live: no known problems In the past 12 months, have you had to go without electric, gas, oil or water in your home?: no 1. Within the past 12 months, we worried whether our food would run out before we got money to buy more.: Don't know/refused 2. Within the past 12 months, the food we bought just didn't last and we didn't have money to get more.: Don't know/refused Has lack of transportation kept you from medical appointments or from doing things needed for daily living?: yes Has anyone in your life made you feel unsafe or unsupported?: no How hard is it for you to pay for the very basics like food, housing, medical care, and heating? Would you say it is:: Very hard Do you want help finding or keeping work or a job?: Yes, help finding work If for any reason you need help with day-to-day activities such as bathing, preparing meals, shopping, managing finances, etc., do you get the help you need?: I don’t need any help How often do you feel lonely or isolated from those around you?: Never Do you speak a language other than Macanese at home?: No Does the patient want assistance with any of the above?: Yes Health Related Social Needs Health related social needs: housing instability, housed, with risk of homelessness (Z59.811), transportation insecurity (Z59.82), problems related to housing/economic circumstances (Z59.89) and problems finding work (Z56.9) Health related social needs details: See above
--- NOTE | 2025-07-01 17:57 | W.PM.PROGNOT ---
Objective Last Vital Signs Temp 36.2 C L 07/01/25 15:35 Pulse 61 07/01/25 15:35 Resp 14 07/01/25 15:35 BP 111/67 07/01/25 15:35 Pulse Ox 95 07/01/25 15:35 Laboratory Results - last 24 hr 07/01/25 05:51 WBC 5.13 RBC 3.73 L Hgb 12.2 L Hct 35.0 L MCV 94 MCH 32.7 MCHC 34.9 RDW 12.5 Plt Count 140 MPV 10.2 Sodium 138 Potassium 3.3 L Chloride 100 Carbon Dioxide 27.9 Anion Gap 10.1 BUN 2 L Creatinine 0.5 L Est GFR (CKD-EPI 2020) 125.03 Glucose 91 Calcium 9.5 Magnesium 1.8 Total Bilirubin 0.4 AST 54 H ALT 48 Alkaline Phosphatase 84 Total Protein 7.7 Albumin 3.7 PAWSS Have you Been Recently Intoxicated or Drunk Within the Last 30 days?: Yes Have you Ever Experienced Previous Episodes of Alcohol Withdrawal?: Yes Have you ever Experienced Withdrawal Seizures?: No Have you ever Experienced Delirium Tremens(DT)s?: Yes Have you ever undergone Alcohol Rehabilitation Treatment (i.e, inpt ot outpatient treatment programs)?: Yes Have you ever Experienced Blackouts?: Yes Have you ever Combined Alcohol with other Downers within the last 90 days?: No Have you ever Combined Alcohol with any other Substance of Abuse during the last 90 days?: No Positive Blood Alcohol level on Presentation? [PCS.BAL]: Yes Evidence of Increased Autonomic Activity (i.e. HR>120, tremor, sweating, agitation, nausea)?: Yes Result: 7
[2025-07-01 21:38] VITALS: BP 116/76; PULSE 69; RESP 18; TEMP 36.3; O2SAT 98
[2025-07-01] MEDS: Nicotine 21 MG/24 HR PATCH TD (21:52)
[2025-07-01] MEDS: Polyethylene Glycol 3350 17 GM PACKET PO (21:52)
[2025-07-02 02:28] VITALS: BP 117/76; PULSE 67; RESP 18; TEMP 36.9; O2SAT 97
[2025-07-02 05:29] LABS: HCT 33.0 % (40.0-50.0); HGB 11.6 g/dL (13.5-17.5); MCH 33.7 pg (27.0-33.0); MCHC 35.2 % (32.0-36.0); MCV 96 fL (80-95); MPV 9.9 fL (8.0-11.0); Platelet Count 146 10^3/uL (130-400); RBC 3.44 10^6/uL (4.36-5.78); RDW 12.9 % (11.8-14.1); RDW-SD 45.1 fL; WBC 5.74 10^3/uL (4.4-10.8)
[2025-07-02 06:02] LABS: ALT 38 U/L (10-49); AST 43 U/L (<34); Albumin 4.1 g/dL (3.4-5.0); Alkaline Phosphatase 79 U/L (46-116); Anion Gap 8.3 mmol/L (3-11); BUN 5 mg/dL (9-23); Bilirubin, Total 0.30 mg/dL (0.2-1.2); CO2 26.7 mmol/L (20.0-31.0); Calcium 9.6 mg/dL (8.3-10.6); Chloride 104 mmol/L (98-107); Glucose 97 mg/dL (74-106); Potassium 3.6 mmol/L (3.5-5.1); Sodium 139 mmol/L (136-145); Total Protein 6.9 g/dL (5.7-8.2)
[2025-07-02 07:40] VITALS: BP 129/89; PULSE 72; RESP 17; TEMP 36.9; O2SAT 97
--- NOTE | 2025-07-02 09:04 | PDOC.CMDIS ---
Date of service: 07/02/25 Time of Service: 09:04 LACE Index Scoring Tool Questions: Length of Stay (in days): 4 - 6 Was the patient admitted via the E.D.?: Yes E.D. Visits: 11 Answers: Total Score: 11 Risk of Readmission: High Risk Care Management Discharge Plan Reason for Hospitalization: ETOH Withdrawal, Acute Pancreatitis Discharge Plan: Paul will be discharged home with new outpatient PT as Paul does not meet the homebound criteria. He does intend to continue to meet with his Senior Principal Process Engineer - Ron and hopes to be able to get back to AA. It is recommended that Paul follow up with his community providers, support teams (including AA and Monica) and discharge plan of care. He will transport home via [facility] private vehicle, as coordinated by CM. Patient/Family Education Needs: Review of discharge instruction, activity, limitations, and plan of care. Discuss Ask me three. SDOH Health Related Social Needs: Health related social needs risk of homeless transpo insecurity house/econ circumstance finding work Health related social needs details See above Health related social needs details: See above
[2025-07-02] MEDS: Ibuprofen 600 MG TAB PO (09:21)
[2025-07-02] MEDS: Normal Saline Flush 10 ML SYR IVP (09:22)
[2025-07-02] MEDS: Enoxaparin 40 MG/0.4 ML SYR SC (09:22)
[2025-07-02 11:21] VITALS: BP 124/80; PULSE 83; RESP 16; TEMP 36.9; O2SAT 98
--- NOTE | 2025-07-02 11:48 | PT.INTREAT ---
PT Notes Visit Reasons: ETOH Withdrawal, Acute Pancreatitis Physical Therapy Inpatient Treatment Note Date: 07/02/2025 Precautions: Activity as tolerated. Standard. Fall risk. SUBJECTIVE: Denied headache, chest pain, and lightheadedness throughout session. Appeared more alert and awake, able to do ulti step directions. OBJECTIVE: Observation:Seated at edge of bed. Getting ready for today's potential discharge. Mental Status: A and O x 4 Vital Signs: WNL as monitored via telemetry throughout session Bed Mobility/Transfers: Rolling modified independent Supine to sit independent Sit to stand independent Stand to sit independent Gait: Back to baseline mobility. Independent with level surface ambulation of 600 feet without device, dyspnea, and lightheadedness. No path deviation. No LOB. No SOB. Stairs: Back to baseline mobility. Modified independent with navigation of 2 flights of steps while holding onot one rail. No LOB. No SOB. Balance: Static Sitting: Normal Dynamic Sitting: Normal Static Standing: Good Dynamic Standing: Good ASSESSMENT: Back to baseline mobility. No skilled services needed at this time. No equipment needs at this time. Goals: N/A. D/C to home this afternoon. Plan of Care/Treatment Plan: N/A. D/C to home this afternoon. DISCHARGE RECOMMENDATIONS: NO skilled services recommended. TREATMENT CODE/TIME: 60326 x 16 minutes for 1 unit (14:58-12:14).
--- NOTE | 2025-07-02 12:04 | DSE_ITS ---
Date of service: 07/02/25 Time of Service: 08:00 DS: Diagnosis Discharge Diagnosis (1) Alcohol withdrawal: Status: Resolved Asessment and Plan: Paul Layton is a 50 year old man presenting June 27 with abdominal pain, found to have acute pancreatitis. Patient was acutely intoxicated after a brief period of abstinence from alcohol. He has been able to tolerate PO intake and his abdominal pain has improved. He is safe to discharge home at this time. (2) Metabolic acidosis, increased anion gap: Status: Resolved (3) Pancreatitis: Status: Resolved (4) Hyponatremia: Status: Resolved (5) Hypomagnesemia: Status: Resolved (6) Tobacco dependence: Status: Acute (7) Thrombocytopenia: Status: Chronic Discharge Plan Disposition Patient Disposition: Home Condition: Fair Discharge Details Reason For Visit: ETOH Withdrawal, Acute Pancreatitis Admit Date/Time: 06/28/25 12:22 Admit Provider: Gustavo Zuniga Attending Provider: Gustavo Zuniga Primary Care Provider: OWEN GARRISON Hospital Course Hospital Course: Paul Layton is a 50 year old man presenting June 27 with abdominal pain, found to have acute pancreatitis. Patient was acutely intoxicated after a brief period of abstinence from alcohol. He has been able to tolerate PO intake and his abdominal pain has improved. He is safe to discharge home at this time. Home Meds and New Rx's Prescriptions: New naltrexone 50 mg tablet 50 mg PO DAILY Qty: 30 0RF Continued Vivitrol 380 mg suspension,extended rel recon 380 mg IM QMONTH Patient Comments: Patient states he was given a dose just before he left [facility] Discharge Instructions Instructions: Alcohol Use Disorder (DC) Stand Alone Forms: Portal Information, Nursing Discharge Form Referrals: OWEN GARRISON, PRESSER HAND [Primary Care Provider, Medicine] Referral Note: Your pcp will reach out for a follow up appointment, if you do not hear from them, please reach out. Activity:: Activity as Tolerated Equipment/Supplies:: No Equipment Needed Diet:: As Tolerated Discharge Orders Discharge Orders: Discharge Order (Routine); Ordered 07/02/25 Ordered By: Ke Patrick Discharge Data Discharge Date/Time-TO BE ENTERED AT DEPARTURE: 07/02/25 13:40 DS: Summary Time Spent with Patient providing and/or coordinating discharge services: Less than 30 minutes Status at Discharge Functional status at discharge: independent ambulation Overall status at discharge: patient is back to baseline Mental Status: mental status grossly normal Speech and Movement: speech and movement normal Mood: congruent mood Affect: normal affect Quality:SDOH Health Related Social Needs: Health related social needs risk of homeless transpo i nsecurity house/econ circumstance finding work Health related social needs details See above Health related social needs details: See above Exam Narrative Exam Narrative: General: This is a pleasant man in no distress HEENT: Normocephalic, atraumatic CV: RRR Resp: CTAB Abd: soft, NTND MSK: voluntary motion x4 Neuro: awake, alert, no focal deficits Psych Mental Status: mental status grossly normal Speech and Movement: speech and movement normal Mood: congruent mood Affect: normal affect DS: Data Vitals/I&O Vitals and I&O: Vital Signs Temperature 36.9 C 07/02/25 11:21 Temperature Source Temporal Artery Scan 07/02/25 11:21 Pulse 83 07/02/25 11:21 Pulse Rhythm Regular 06/28/25 05:50 Pulse Strength Normal 06/28/25 05:50 Pulse 66 06/29/25 20:31 Respiratory Rate 16 07/02/25 11:21 Respiratory Effort Normal, Non-Labored 06/28/25 13:58 Respiratory Depth Normal 06/28/25 05:50 Respiratory Pattern Normal 06/28/25 12:55 Blood Pressure 124/80 07/02/25 11:21 Blood Pressure Mean 94 07/02/25 11:21 Blood Pressure Position Supine 06/28/25 13:58 Pulse Oximetry 98 07/02/25 11:21 Oxygen Delivery Method Room Air 07/02/25 11:21 Oxygen Flow Rate 0 07/02/25 11:21 Pain Level 0 07/02/25 07:40 Intake & Output 07/01/25 07/02/25 07/02/25 23:59 11:59 23:59 Intake Total 370 / 370 Balance 370 / 370 Intake: IV Oral 360 / 360 Other: Urine Color Yellow Urine Appearance Clear Urine Odor Normal Comment pt voids to toilet. Data Completed and Pending Pending Labs at Discharge: 06/27/25 06/28/25 06/28/25 22:58 06:20 09:35 WBC 13.22 H RBC 4.48 Hgb 14.8 Hct 43.7 MCV 98 H MCH 33.0 MCHC 33.9 RDW 12.6 Plt Count 196 MPV 9.2 Immature Gran % 0.5 Neutrophils % 80.6 Lymphocytes % 12.6 Monocytes % 5.3 Eosinophils % 0.7 Basophils % 0.3 Nucleated RBC % 0.2 Absolute Neutrophils 10.66 H Absolute Lymphocytes 1.67 Absolute Monocytes 0.70 Absolute Eosinophils 0.09 Absolute Basophils 0.04 VBG pH 7.11 L* 7.30 L VBG pCO2 35 L 28 L VBG pO2 38 44 VBG HCO3 11 L 14 L VBG Total CO2 11 L 13 L VBG O2 Saturation 57 78 VBG Base Excess -18 L -12 L Sodium 133 L 131 L 128 L Potassium 4.0 4.4 3.9 Chloride 92 L 94 L 94 L Carbon Dioxide 12.0 L 13.0 L 15.5 L Anion Gap 29.0 H 24.0 H 18.5 H BUN 14 12 10 Creatinine 0.9 0.8 0.6 L Est GFR (CKD-EPI 2020) 104.70 108.49 118.34 Glucose 85 78 97 Calcium 8.8 7.4 L 7.5 L Magnesium 1.7 L Total Bilirubin 0.3 AST 58 H ALT 61 Alkaline Phosphatase 128 H Total Protein 9.1 H Albumin 4.3 Lipase 100 H Ethyl Alcohol 334.2 H 59.1 H 06/29/25 06/29/25 06/30/25 05:30 16:15 05:34 WBC 5.23 4.26 L RBC 3.23 L 3.43 L Hgb 10.6 L D 10.8 L 11.3 L Hct 30.2 L 31.4 L 32.0 L MCV 94 D 93 MCH 32.8 32.9 MCHC 35.1 35.3 RDW 12.3 12.7 Plt Count 112 L 124 L MPV 9.4 10.5 Immature Gran % Neutrophils % Lymphocytes % Monocytes % Eosinophils % Basophils % Nucleated RBC % Absolute Neutrophils Absolute Lymphocytes Absolute Monocytes Absolute Eosinophils Absolute Basophils VBG pH VBG pCO2 VBG pO2 VBG HCO3 VBG Total CO2 VBG O2 Saturation VBG Base Excess Sodium 133 L 136 Potassium 3.3 L 3.6 Chloride 99 99 Carbon Dioxide 25.7 27.1 Anion Gap 8.3 9.9 BUN 6 L 2 L Creatinine 0.6 L 0.5 L Est GFR (CKD-EPI 2020) 118.34 125.03 Glucose 103 89 Calcium 8.5 9.0 Magnesium 1.6 L 1.7 L Total Bilirubin 0.7 0.4 AST 27 32 ALT 38 42 Alkaline Phosphatase 89 79 Total Protein 6.6 7.2 Albumin 3.2 L 3.5 Lipase Ethyl Alcohol 07/01/25 07/02/25 05:51 05:14 WBC 5.13 5.74 RBC 3.73 L 3.44 L Hgb 12.2 L 11.6 L Hct 35.0 L 33.0 L MCV 94 96 H MCH 32.7 33.7 H MCHC 34.9 35.2 RDW 12.5 12.9 Plt Count 140 146 MPV 10.2 9.9 Immature Gran % Neutrophils % Lymphocytes % Monocytes % Eosinophils % Basophils % Nucleated RBC % Absolute Neutrophils Absolute Lymphocytes Absolute Monocytes Absolute Eosinophils Absolute Basophils VBG pH VBG pCO2 VBG pO2 VBG HCO3 VBG Total CO2 VBG O2 Saturation VBG Base Excess Sodium 138 139 Potassium 3.3 L 3.6 Chloride 100 104 Carbon Dioxide 27.9 26.7 Anion Gap 10.1 8.3 BUN 2 L 5 L Creatinine 0.5 L 0.6 L Est GFR (CKD-EPI 2020) 125.03 145.83 Glucose 91 97 Calcium 9.5 9.6 Magnesium 1.8 Total Bilirubin 0.4 0.30 AST 54 H 43 H ALT 48 38 Alkaline Phosphatase 84 79 Total Protein 7.7 6.9 Albumin 3.7 4.1 Lipase Ethyl Alcohol PFSH All Active Problems (Updated 07/03/25 @ 00:04 by ELAINE PHILLIPS) Thrombocytopenia (Chronic) Tobacco dependence (Acute) Chest pain (Acute) Constipation (Acute) Alcohol intoxication (Acute) Alcoholism, chronic (Chronic) Pancreatitis (Chronic) Gallbladder polyp (Acute) Postprandial RUQ pain (Acute) Gallbladder disease (Acute) Dizziness (Acute) Nicotine addiction (Chronic) Avascular necrosis of bone of left hip (Acute) Hepatic steatosis (Acute) Impairment of balance (Acute) Chronic vertigo (Acute) Medical History Anxiety Acid reflux 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 Osteonecrosis bone of left hip 04/23/24 CT evidence of a vascular necrosis of left hip Alcohol abuse Gallstone (~08/2024) Surgical History 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) Cyst of right upper eyelid Family History Maternal Grandfather Alcohol abuse Maternal Uncle Alcohol abuse Social History Smoking/Tobacco Use Status: Current every day Tobacco Type: cigarettes Years smoked: 25 Smoking risk assessment performed?: Yes Alcohol Intake: current Alcohol Intake frequency: 3 or more drinks per day Counseling given: Yes Drug use: Never Substance use type: does not use Housing: apartment 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 Time Spent with Patient Time Spent with Patient: <45 minutes Time was spent: preparing to see the patient(eg.review tests), obtaining and/or reviewing separately otained hiistory, ordering medications,tests, procedures, referring, communicating with other health child care center administrator, indepentently interpreting results, counseling the patient and care coordination
== END 2025-07-02 13:40 | disposition home or self-care (01) | DRG 896 ==
LOC: ER 06-28 12:31 → ICU 06-28 13:33 → MS 06-30 13:08
PROVIDERS: Student in an Organized Health Care Education/Training Program; Admitting Provider Family Medicine; Emergency Provider General Practice; PCP Nurse Practitioner Family; Responsible Provider Family Medicine; Visit Provider Family Medicine
DX: F10.239 Alcohol dependence with withdrawal, unspecified (principal); K85.90 Acute pancreatitis without necrosis or infection, unspecified; E87.21 Acute metabolic acidosis; M87.852 Other osteonecrosis, left femur; K86.1 Other chronic pancreatitis; E87.1 Hypo-osmolality and hyponatremia; Z59.811 Housing instability, housed, with risk of homelessness; F10.229 Alcohol dependence with intoxication, unspecified; K70.30 Alcoholic cirrhosis of liver without ascites; D69.59 Other secondary thrombocytopenia; Y90.8 Blood alcohol level of 240 mg/100 ml or more; E86.0 Dehydration; R07.89 Other chest pain; K59.00 Constipation, unspecified; F41.9 Anxiety disorder, unspecified; K21.9 Gastro-esophageal reflux disease without esophagitis; Z96.641 Presence of right artificial hip joint; F17.210 Nicotine dependence, cigarettes, uncomplicated; D72.829 Elevated white blood cell count, unspecified; E83.42 Hypomagnesemia; Z59.82 Transportation insecurity; Z59.89 Other problems related to housing and economic circumstances
CPT/HCPCS: 00123; 36415; 80048; 80053; 82805; 83690; 85027; 96361; 96365; 96366; 96375; 97116; 97162; 97530; 99291; J1650; 80320; 83735; 85014; 85018; 85025; 99223; 99232; 99238; J1885; J2270; J2405; J2470; J2560; J3411; J3475

== ENCOUNTER 2025-07-06 11:12 | Emergency (ER) | payer MEDICAID, SELFPAY ==
[2025-07-06 11:17] VITALS: BP 132/84; PULSE 81; RESP 18; TEMP 35.8; O2SAT 98
[2025-07-06 11:22] VITALS: BP 132/84; PULSE 81; RESP 18; TEMP 35.8; O2SAT 98
[2025-07-06] MEDS: Normal Saline 1,000 ML 1000 ML IV (11:41)
[2025-07-06 11:48] LABS: Abs Immature Grans 0.03 10^3/uL (0.0-0.06); HCT 37.2 % (40.0-50.0); HGB 12.9 g/dL (13.5-17.5); Immature Grans % 0.5 %; MCH 32.6 pg (27.0-33.0); MCHC 34.7 % (32.0-36.0); MCV 94 fL (80-95); MPV 8.8 fL (8.0-11.0); Platelet Count 347 10^3/uL (130-400); RBC 3.96 10^6/uL (4.36-5.78); RDW 13.2 % (11.8-14.1); RDW-SD 45.5 fL; WBC 6.11 10^3/uL (4.4-10.8)
[2025-07-06] MEDS: THIAMINE 100 MG in Normal Saline 100 ML 200 MG IVPB (11:53)
[2025-07-06] MEDS: FAMOTIDINE 20 MG in Normal Saline 100 ML 400 MG IVPB (11:54)
[2025-07-06] MEDS: Ondansetron 4 MG/2 ML VIAL IVP (11:56)
[2025-07-06 12:04] LABS: Lipase 30 U/L (<53)
[2025-07-06 12:05] LABS: Magnesium 1.8 mg/dL (1.6-2.6)
[2025-07-06 12:06] LABS: ALT 44 U/L (10-49); AST 52 U/L (<34); Albumin 4.8 g/dL (3.4-5.0); Alkaline Phosphatase 79 U/L (46-116); Anion Gap 13.4 mmol/L (3-11); BUN 6 mg/dL (9-23); Bilirubin, Total 0.20 mg/dL (0.2-1.2); CO2 26.6 mmol/L (20.0-31.0); Calcium 9.7 mg/dL (8.3-10.6); Chloride 104 mmol/L (98-107); Glucose 108 mg/dL (74-106); Potassium 3.8 mmol/L (3.5-5.1); Sodium 144 mmol/L (136-145); Total Protein 8.2 g/dL (5.7-8.2)
--- NOTE | 2025-07-06 12:39 | ED.GENADUL_ITS ---
Discharge Plan Disposition Patient Disposition: Home Condition: Stable Discharge Details Clinical Impression: Acute alcoholic intoxication, Abdominal pain Primary Care Provider: OWEN GARRISON ED Provider: Hamilton Tavera Home Meds and New Rx's Prescriptions: New thiamine HCl (vitamin B1) 100 mg tablet 100 mg PO DAILY Qty: 30 0RF Continued naltrexone 50 mg tablet 50 mg PO DAILY Qty: 30 0RF Discontinued Vivitrol 380 mg suspension,extended rel recon 380 mg IM QMONTH Patient Comments: Patient states he was given a dose just before he left [place] Discharge Instructions Instructions: Abdominal Pain, Adult ED, Alcohol Intoxication ED Additional Instructions: Please stop abusing alcohol. Please follow-up with your primary care physician. Return to the emergency department immediately for any worsening or new concerning symptoms. Stand Alone Forms: Portal Information Discharge Data Discharge Date/Time-TO BE ENTERED AT DEPARTURE: 07/06/25 14:12 HPI General Date/Time Provider Initiated Documentation: 07/06/25 11:22 . Limitations to Documentation: no limitations . Information obtained by: patient . HPI Narrative: HISTORY OF PRESENT ILLNESS 50-year-old male with alcoholism and past pancreatitis presenting with pancreatitis pain. Last alcoholic drink at 1000 hours today. EMS contacted due to pain. Hospitalized and discharged on 07/02/2025 after treatment for alcohol withdrawal and pancreatitis. Recently hospitalized, received phenobarbital, abstained from alcohol, and improved. Resumed alcohol post-discharge, leading to recurrence of symptoms. Neighbor concerned, prompting visit. Consumed beer an hour prior to visit. Persistent pancreatic pain impacting daily activities. Acknowledges need for abstinence and seeks assistance from local clinic. Related Data Home Medications Medication Instructions Recorded Confirmed naltrexone 50 mg tablet 50 mg PO DAILY #30 tabs 06/2107/08/25 thiamine HCl (vitamin B1) 100 mg 100 mg PO DAILY #30 t abs 07/06/25 07/08/25 tablet Previous Rx's Medication Instructions Recorded naltrexone 50 mg tablet 50 mg PO DAILY #30 tabs 06/21 10/15 thiamine HCl (vitamin B1) 100 mg 100 mg PO DAILY #30 t abs 07/06/25 tablet Allergies Allergy/AdvReac Type Severity Reaction Status Date / Time hydromorphone (From Dilaudid) AdvReac Intermediate Other (See Verified 07/08/25 18:18 Comment) General Stated Complaint: Abd Prob SARAH: 3 Review of Systems All systems reviewed & are unremarkable except as noted in HPI and below Constitutional Constitutional: Denies fever(s) Cardiovascular Cardiovascular: Denies chest pain and Denies dyspnea Respiratory Respiratory: Denies dyspnea Gastrointestinal Gastrointestinal: Reports abdominal pain Exam Narrative Exam Narrative: PHYSICAL EXAM General Appearance: Uncomfortable, well-developed Vital signs: Within normal limits. HEENT: Within normal limits. Respiratory: Within normal limits. Gastrointestinal: Epigastric tenderness. No rebound tenderness. Skin: Warm and dry, no rash. Neurological: Alert and oriented x3. Slurred speech. Course Vital Signs Vital signs: Vital Signs Temperature 35.8 C L 07/06/25 11:17 Pulse 81 07/06/25 11:17 Respiratory Rate 18 07/06/25 11:17 Blood Pressure 132/84 07/06/25 11:17 Pulse Oximetry 98 07/06/25 11:17 Temperature 35.8 C L 07/06/25 11:22 Temperature Source Tympanic 07/06/25 11:22 Pulse 81 07/06/25 11:22 Respiratory Rate 18 07/06/25 11:22 Blood Pressure 132/84 07/06/25 11:22 Blood Pressure Position Sitting 07/06/25 11:22 Pulse Oximetry 98 07/06/25 11:22 Oxygen Delivery Method Room Air 07/06/25 11:22 Oxygen Flow Rate 0 07/06/25 11:22 Pain Level 8 07/06/25 11:22 Lab/Test Results Lab/Test Results: Laboratory Tests Range/Units 07/06/25 11:38 WBC (4.4-10.8) 10^3/uL 6.11 RBC (4.36-5.78) 10^6/uL 3.96 L Hgb (13.5-17.5) g/dL 12.9 L Hct (40.0-50.0) % 37.2 L MCV (80-95) fL 94 MCH (27.0-33.0) pg 32.6 MCHC (32.0-36.0) % 34.7 RDW (11.8-14.1) % 13.2 Plt Count (130-400) 10^3/uL 347 MPV (8.0-11.0) fL 8.8 Immature Gran % % 0.5 Neutrophils % % 28.5 Lymphocytes % % 59.4 Monocytes % % 8.8 Eosinophils % % 1.5 Basophils % % 1.3 Nucleated RBC % (0.0-0.3) % 0.0 Absolute Neutrophils (1.2-6.7) 10^3/uL 1.74 Absolute Lymphocytes (1.2-3.4) 10^3/uL 3.63 H Absolute Monocytes (0.1-0.8) 10^3/uL 0.54 Absolute Eosinophils (0.0-0.7) 10^3/uL 0.09 Absolute Basophils (0.0-0.2) 10^3/uL 0.08 Sodium (136-145) mmol/L 144 Potassium (3.5-5.1) mmol/L 3.8 Chloride (98-107) mmol/L 104 Carbon Dioxide (20.0-31.0) mmol/L 26.6 Anion Gap (3-11) mmol/L 13.4 H BUN (9-23) mg/dL 6 L Creatinine (0.73-1.18) mg/dL 0.5 L Est GFR (CKD-EPI 2020) (mL/min/1.73m2) 176.51 Glucose (74-106) mg/dL 108 H Calcium (8.3-10.6) mg/dL 9.7 Magnesium (1.6-2.6) mg/dL 1.8 Total Bilirubin (0.2-1.2) mg/dL 0.20 AST (<34) U/L 52 H ALT (10-49) U/L 44 Alkaline Phosphatase (46-116) U/L 79 Total Protein (5.7-8.2) g/dL 8.2 Albumin (3.4-5.0) g/dL 4.8 Lipase (<53) U/L 30 Medical Decision Making ASSESSMENT AND PLAN 50-year-old male with alcoholism and pancreatitis, presenting with epigastric abdominal pain after consuming alcohol. Patient is hemodynamically stable. Patient has epigastric tenderness and otherwise no peritoneal findings on exam. ED Course: - IV fluids administered - Zofran IV administered - Pepcid IV administered -Thiamine IV administered - Labs reviewed: Alcohol level 279.9 consistent with acute intoxication. Lipase normal. No significant elevation of LFTs. No leukocytosis. - Patient monitored in the emergency department for multiple hours. Patient requesting discharge -patient declining further diagnostic testing and treatment. He appears clinically sober. Patient was able to contact a friend who is willing to monitor the patient at home in a safe environment for the remainder of the day. Usual and customary discharge instructions reviewed with the patient and friend. Administered IV fluids, antiemetics, and analgesics for acute alcohol intoxication and recurrence of pancreatitis. Clinical Impression: - Acute alcohol intoxication - Recurrence of pancreatitis This document was written with the assistance of SOPHIE Martinez. The patient consented to its use. Lab Data Lab results reviewed: Yes I reviewed the patient's lab results. Labs: Laboratory Tests Range/Units 07/06/25 11:38 WBC (4.4-10.8) 10^3/uL 6.11 RBC (4.36-5.78) 10^6/uL 3.96 L Hgb (13.5-17.5) g/dL 12.9 L Hct (40.0-50.0) % 37.2 L MCV (80-95) fL 94 MCH (27.0-33.0) pg 32.6 MCHC (32.0-36.0) % 34.7 RDW (11.8-14.1) % 13.2 Plt Count (130-400) 10^3/uL 347 MPV (8.0-11.0) fL 8.8 Immature Gran % % 0.5 Neutrophils % % 28.5 Lymphocytes % % 59.4 Monocytes % % 8.8 Eosinophils % % 1.5 Basophils % % 1.3 Nucleated RBC % (0.0-0.3) % 0.0 Absolute Neutrophils (1.2-6.7) 10^3/uL 1.74 Absolute Lymphocytes (1.2-3.4) 10^3/uL 3.63 H Absolute Monocytes (0.1-0.8) 10^3/uL 0.54 Absolute Eosinophils (0.0-0.7) 10^3/uL 0.09 Absolute Basophils (0.0-0.2) 10^3/uL 0.08 Sodium (136-145) mmol/L 144 Potassium (3.5-5.1) mmol/L 3.8 Chloride (98-107) mmol/L 104 Carbon Dioxide (20.0-31.0) mmol/L 26.6 Anion Gap (3-11) mmol/L 13.4 H BUN (9-23) mg/dL 6 L Creatinine (0.73-1.18) mg/dL 0.5 L Est GFR (CKD-EPI 2020) (mL/min/1.73m2) 176.51 Glucose (74-106) mg/dL 108 H Calcium (8.3-10.6) mg/dL 9.7 Magnesium (1.6-2.6) mg/dL 1.8 Total Bilirubin (0.2-1.2) mg/dL 0.20 AST (<34) U/L 52 H ALT (10-49) U/L 44 Alkaline Phosphatase (46-116) U/L 79 Total Protein (5.7-8.2) g/dL 8.2 Albumin (3.4-5.0) g/dL 4.8 Lipase (<53) U/L 30 Ethyl Alcohol (<3) mg/dL > 300.0 H Quality:SDOH Health Related Social Needs: Health related social needs risk of homeless transpo i nsecurity house/econ circumstance finding work Health related social needs details See above PFSH All Active Problems (Updated 07/08/25 @ 21:59 by Meagan Hernandez NP) Non-ST elevation CT (NSTEMI) (Acute) Elevated troponin (Acute) Abdominal pain (Acute) Acute alcoholic intoxication (Acute) Thrombocytopenia (Chronic) Tobacco dependence (Acute) Chest pain (Acute) Constipation (Acute) Alcohol intoxication (Acute) Alcoholism, chronic (Chronic) Pancreatitis (Chronic) Gallbladder polyp (Acute) Postprandial RUQ pain (Acute) Gallbladder disease (Acute) Dizziness (Acute) Nicotine addiction (Chronic) Avascular necrosis of bone of left hip (Acute) Hepatic steatosis (Acute) Impairment of balance (Acute) Chronic vertigo (Acute) Medical History Anxiety Acid reflux 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 Osteonecrosis bone of left hip 04/23/24 CT evidence of a vascular necrosis of left hip Alcohol abuse Gallstone (~08/2024) Surgical History 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) Cyst of right upper eyelid Family History Maternal Grandfather Alcohol abuse Maternal Uncle Alcohol abuse Social History Smoking/Tobacco Use Status: Current every day Tobacco Type: cigarettes Years smoked: 25 Smoking risk assessment performed?: Yes Alcohol Intake: current Alcohol Intake frequency: 3 or more drinks per day Counseling given: Yes Drug use: Never Substance use type: does not use Housing: apartment 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 PAWSS Have you Been Recently Intoxicated or Drunk Within the Last 30 days?: Yes Have you Ever Experienced Previous Episodes of Alcohol Withdrawal?: Yes Have you ever Experienced Withdrawal Seizures?: No Have you ever Experienced Delirium Tremens(DT)s?: Yes Have you ever undergone Alcohol Rehabilitation Treatment (i.e, inpt ot outpatient treatment programs)?: Yes Have you ever Experienced Blackouts?: Yes Have you ever Combined Alcohol with other Downers within the last 90 days?: No Have you ever Combined Alcohol with any other Substance of Abuse during the last 90 days?: No Evidence of Increased Autonomic Activity (i.e. HR>120, tremor, sweating, agitation, nausea)?: Yes Result: 6
[2025-07-06 12:57] VITALS: BP 140/98; PULSE 69; RESP 18; TEMP 35.7; O2SAT 99
[2025-07-06 14:08] VITALS: BP 144/93; PULSE 78; RESP 16; O2SAT 98
== END 2025-07-06 14:12 | disposition home or self-care (01) ==
PROVIDERS: Emergency Provider Student in an Organized Health Care Education/Training Program; PCP Nurse Practitioner Family
DX: F10.929 Alcohol use, unspecified with intoxication, unspecified (principal); R10.9 Unspecified abdominal pain; Z59.811 Housing instability, housed, with risk of homelessness; Z59.82 Transportation insecurity
CPT/HCPCS: 80053; 83690; 96365; 96368; 96375; 99284; 80320; 83735; 85025; J2405; J3411

== ENCOUNTER 2025-07-08 18:10 | Inpatient (IN) | payer MEDICAID, SELFPAY ==
[2025-07-08] VITALS (14 sets, daily range): BP systolic 120–146; BP diastolic 88–94; PULSE 84–132; RESP 13–20; TEMP 36.8–37.1; O2SAT 96–98
--- NOTE | 2025-07-08 18:15 | RT.EKG_ITS ---
APPROVED REPORT Exam: Resting ECG Reason for Exam: Chest Pain Patient Location: E HR:117 bpm ECG Measurements Heart Rate 117 AXIS [place] 164 P 65 QRSd 82 QRS 65 QT 303 T 30 QTc 423 Conclusion Sinus tachycardia...rate> 99
--- NOTE | 2025-07-08 18:36 | ED.GENADUL_ITS ---
Discharge Plan Disposition Patient Disposition: Admit to [facility] Condition: Stable Discharge Details Clinical Impression: Elevated troponin, Non-ST elevation [place] (NSTEMI) Primary Care Provider: OWEN GARRISON ED Provider: Meagan Hernandez Home Meds and New Rx's Prescriptions: No Action naltrexone 50 mg tablet 50 mg PO DAILY Qty: 30 0RF thiamine HCl (vitamin B1) 100 mg tablet 100 mg PO DAILY Qty: 30 0RF HPI General Mode of arrival: ambulatory . Date/Time Provider Initiated Documentation: 07/08/25 18:13 . Limitations to Documentation: no limitations . Information obtained by: patient, family, RN notes reviewed and old records reviewed . HPI Narrative: 50-year-old male who presents to the chief complaint of left-sided chest pain which he reports is his pancreatitis. He was seen here 2 days ago and has since then drank alcohol. He does have frequent visits over the last month for alcohol intoxication and alcohol withdrawal. He is admitted for pancreatitis on June 27. He is unclear about when his last alcoholic drink was he reports he has not drank today. Follow-up he is a poor historian. Denies any. Denies any vomiting. He is a daily smoker. He has minimal tremors noted to the right upper extremity. Denies any leg movements however he does report that the room is moving in the bed feels like it is going to give way. He is tachycardic and slightly hypertensive upon arrival. Other past medical history includes osteonecrosis, hepatic steatosis, gallstones, hip replacement, and anemia, GERD, anxiety. Related Data Home Medications ?Medication ?Instructions ?Recorded ?Confirmed naltrexone 50 mg tablet 50 mg PO DAILY #30 tabs 06/2107/08/25 thiamine HCl (vitamin B1) 100 mg 100 mg PO DAILY #30 t abs 07/06/25 07/08/25 tablet Previous Rx's ?Medication ?Instructions ?Recorded naltrexone 50 mg tablet 50 mg PO DAILY #30 tabs 06/21 10/15 thiamine HCl (vitamin B1) 100 mg 100 mg PO DAILY #30 t abs 07/06/25 tablet Allergies Allergy/AdvReac Type Severity Reaction Status Date / Time hydromorphone (From Dilaudid) AdvReac Intermediate Other (See Verified 07/08/25 18:18 Comment) General Stated Complaint: ETOHWithdr SARAH: 3 Review of Systems All systems reviewed & are unremarkable except as noted in HPI and below Constitutional Constitutional: Reports as per HPI Cardiovascular Cardiovascular: Reports chest pain and Denies dyspnea Respiratory Respiratory: Denies dyspnea Gastrointestinal Gastrointestinal: Denies abdominal pain, Denies diarrhea, Denies nausea and Byron es vomiting Exam Narrative Exam Narrative: Constitutional: Alert and oriented x3. Appears stated age. Normal body habitus. Head: Normocephalic, no trauma. Eyes: Pupils PERRL, Red reflex noted, EOM's intact. Eyelids symmetrical without lesions, discharge, or swelling. ENT: Bilateral TM's WNL, External ear normal to inspection, no mastoid TTP, swelling, or erythema, Nasal turbinates WNL, no nasal discharge. Normal dentition, Posterior pharynx WNL, no exudate. Small crack to bottom lower lip, Dry mucous membranes. Chest: RRR, Normal S1, S2, distal pulses intact. Resp: Lungs clear to auscultation bilaterally, no wheezes, rales, or rhonchi. Abdomen: Soft, non-distended, Normoactive bowel sounds all 4 quads. Musculoskeletal: Normal gait, Moves all 4 extremities without difficulty. Skin: No suspicious rashes or lesions. Capillary refill less than 2 sec. Neurologic: Cranial nerves II-XII intact. Alert and oriented x 3. Motor: No deficits noted. Sensory: Intact bilaterally all 4 extremities. Hematologic/Lymphatic: No ecchymosis, no lymphadenopathy. Course Vital Signs Vital signs: Vital Signs Temperature 36.8 C 07/08/25 18:13 Pulse 116 H 07/08/25 18:13 Respiratory Rate 20 07/08/25 18:13 Blood Pressure 146/94 H 07/08/25 18:13 Pulse Oximetry 96 07/08/25 18:13 Temperature 36.8 C 07/08/25 18:13 Pulse 116 H 07/08/25 18:13 Respiratory Rate 20 07/08/25 18:13 Blood Pressure 146/94 H 07/08/25 18:13 Blood Pressure Position Sitting 07/08/25 18:13 Pulse Oximetry 96 07/08/25 18:13 Oxygen Delivery Method Room Air 07/08/25 18:13 Oxygen Flow Rate 0 07/08/25 18:13 Medical Decision Making 50-year-old male who presents to the chief complaint of left-sided chest pain which he reports is his pancreatitis. He was seen here 2 days ago and has since then drank alcohol. He does have frequent visits over the last month for alcohol intoxication and alcohol withdrawal. He is admitted for pancreatitis on June 27. He is unclear about when his last alcoholic drink was he reports he has not drank today. Follow-up he is a poor historian. Denies any. Denies any vomiting. He is a daily smoker. He has minimal tremors noted to the right upper extremity. Denies any leg movements however he does report that the room is moving in the bed feels like it is going to give way. He is tachycardic and slightly hypertensive upon arrival. Other past medical history includes osteonecrosis, hepatic steatosis, gallstones, hip replacement, and anemia, GERD, anxiety. At this time CIWA score is very mild at a 5. Cardiac workup ordered. EKG performed by ED staff in triage, old EKG available for review, please see official report. 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 Troponin elevated at 91 initial troponin 80,. 24 mg of chewable aspirin ordered. On patient reevaluation he is sleepy. Discussed lab results and recommendation for admission. He verbalized understanding and agreement with the plan. 2137: Hospitalist Dr. Archibald contacted via webex to request admission. 2156: Dr. Archibald at for patient evaluation, he recommends a banana bag which was ordered. Will arrange for bed placement. This text was generated using [employer] dictation system, please disregard any oddities of phrase or misspellings. Medical Records Medical records reviewed: Yes I reviewed the patient's medical records. Lab Data Lab results reviewed: Yes I reviewed the patient's lab results. Labs: Laboratory Tests Range/Units 07/08/25 07/08/25 07/08/25 19:11 19:37 20:37 WBC (4.4-10.8) 10^3/uL 6.99 RBC (4.36-5.78) 10^6/uL 4.50 Hgb (13.5-17.5) g/dL 14.9 D Hct (40.0-50.0) % 42.2 MCV (80-95) fL 94 MCH (27.0-33.0) pg 33.1 H MCHC (32.0-36.0) % 35.3 RDW (11.8-14.1) % 13.2 Plt Count (130-400) 10^3/uL 411 H MPV (8.0-11.0) fL 8.8 Immature Gran % % 0.1 Neutrophils % % 41.1 Lymphocytes % % 43.2 Monocytes % % 11.4 Eosinophils % % 2.6 Basophils % % 1.6 Nucleated RBC % (0.0-0.3) % 0.0 Absolute Neutrophils (1.2-6.7) 10^3/uL 2.87 Absolute Lymphocytes (1.2-3.4) 10^3/uL 3.02 Absolute Monocytes (0.1-0.8) 10^3/uL 0.80 Absolute Eosinophils (0.0-0.7) 10^3/uL 0.18 Absolute Basophils (0.0-0.2) 10^3/uL 0.11 PT Cancelled 11.2 H INR Cancelled 1.1 APTT Cancelled 26.8 Sodium Cancelled 143 Potassium Cancelled 4.0 Chloride Cancelled 101 Carbon Dioxide Cancelled 26.2 Anion Gap Cancelled 15.8 H BUN Cancelled 6 L Creatinine Cancelled 0.5 L Est GFR (CKD-EPI 2020) Cancelled 161.50 Glucose Cancelled 111 H Calcium Cancelled 9.5 Magnesium Cancelled 1.8 Total Bilirubin Cancelled 0.30 AST Cancelled 47 H ALT Cancelled 41 Alkaline Phosphatase Cancelled 79 Troponin I Cancelled 80 H* 91 H* Total Protein Cancelled 8.1 Albumin Cancelled 4.8 Lipase Cancelled 27 Ethyl Alcohol Cancelled 279.9 H Quality:SDOH Health Related Social Needs: Health related social needs risk of homeless transpo i nsecurity house/econ circumstance finding work Health related social needs details See above PFSH All Active Problems (Updated 07/08/25 @ 21:59 by Meagan Hernandez NP) Non-ST elevation WI (NSTEMI) (Acute) Elevated troponin (Acute) Abdominal pain (Acute) Acute alcoholic intoxication (Acute) Thrombocytopenia (Chronic) Tobacco dependence (Acute) Chest pain (Acute) Constipation (Acute) Alcohol intoxication (Acute) Alcoholism, chronic (Chronic) Pancreatitis (Chronic) Gallbladder polyp (Acute) Postprandial RUQ pain (Acute) Gallbladder disease (Acute) Dizziness (Acute) Nicotine addiction (Chronic) Avascular necrosis of bone of left hip (Acute) Hepatic steatosis (Acute) Impairment of balance (Acute) Chronic vertigo (Acute) Medical History Anxiety Acid reflux 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 Osteonecrosis bone of left hip 04/23/24 CT evidence of a vascular necrosis of left hip Alcohol abuse Gallstone (~08/2024) Surgical History 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) Cyst of right upper eyelid Family History Maternal Grandfather Alcohol abuse Maternal Uncle Alcohol abuse Social History Smoking/Tobacco Use Status: Current every day Tobacco Type: cigarettes Years smoked: 25 Smoking risk assessment performed?: Yes Alcohol Intake: current Alcohol Intake frequency: 3 or more drinks per day Counseling given: Yes Drug use: Never Substance use type: does not use Housing: apartment 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 PAWSS Have you Been Recently Intoxicated or Drunk Within the Last 30 days?: Yes Have you Ever Experienced Previous Episodes of Alcohol Withdrawal?: Yes Have you ever Experienced Withdrawal Seizures?: Unable to Obtain Have you ever Experienced Delirium Tremens(DT)s?: Yes Have you ever undergone Alcohol Rehabilitation Treatment (i.e, inpt ot outpat ient treatment programs)?: Yes Have you ever Experienced Blackouts?: Yes Have you ever Combined Alcohol with other Downers within the last 90 days?: No Have you ever Combined Alcohol with any other Substance of Abuse during the last 90 days?: No Evidence of Increased Autonomic Activity (i.e. HR>120, tremor, sweating, agitation, nausea)?: Yes Result: 6
--- NOTE | 2025-07-08 18:45 | DI.RAD_ITS ---
Exam(s) XR CHEST 2V PA LATERAL EXAM: XR CHEST 2V PA LATERAL CLINICAL HISTORY: Chest pain. TECHNIQUE: 2D digital imaging was performed. COMPARISON: CR,XR XR CHEST 2V PA LATERAL from 06/21/2025 FINDINGS: 2 views: Heart size is normal. The mediastinum is not widened. Lungs are clear. No infiltrates nor pleural effusions. IMPRESSION: No acute pulmonary findings.No significant change compared to 06/21/2025. DATA REPOSITORY: RADIATION DOSE DELIVERED:
[2025-07-08] MEDS: Normal Saline 500 ML IV (19:13)
[2025-07-08 19:20] LABS: Abs Immature Grans 0.01 10^3/uL (0.0-0.06); HCT 42.2 % (40.0-50.0); HGB 14.9 g/dL (13.5-17.5); Immature Grans % 0.1 %; MCH 33.1 pg (27.0-33.0); MCHC 35.3 % (32.0-36.0); MCV 94 fL (80-95); MPV 8.8 fL (8.0-11.0); Platelet Count 411 10^3/uL (130-400); RBC 4.50 10^6/uL (4.36-5.78); RDW 13.2 % (11.8-14.1); RDW-SD 45.3 fL; WBC 6.99 10^3/uL (4.4-10.8)
--- NOTE | 2025-07-08 19:56 | DI.VRAD_ITS ---
PROCEDURE INFORMATION: Exam: XR Chest Exam date and time: 07/08/2025 7:29 PM Age: 50 years old Clinical indication: Other: Chest pain TECHNIQUE: Imaging protocol: Radiologic exam of the chest. Views: 2 views. COMPARISON: CR XR CHEST 2V PA LATERAL 06/21/2025 10:25 AM FINDINGS: Lungs: Unremarkable. No consolidation. Pleural spaces: Unremarkable. No pleural effusion. No pneumothorax. Heart/Mediastinum: Unremarkable. No cardiomegaly. Bones/joints: Unremarkable. IMPRESSION: No acute findings. Dictated and Authenticated by: Christopher Miller MD. Orderin David Rhodes MD
[2025-07-08 20:01] LABS: PTT Activated 26.8 sec (20.6-30.2)
[2025-07-08 20:07] LABS: Lipase 27 U/L (<53); Magnesium 1.8 mg/dL (1.6-2.6)
[2025-07-08 20:09] LABS: ALT 41 U/L (10-49); AST 47 U/L (<34); Albumin 4.8 g/dL (3.4-5.0); Alkaline Phosphatase 79 U/L (46-116); Anion Gap 15.8 mmol/L (3-11); BUN 6 mg/dL (9-23); Bilirubin, Total 0.30 mg/dL (0.2-1.2); CO2 26.2 mmol/L (20.0-31.0); Calcium 9.5 mg/dL (8.3-10.6); Chloride 101 mmol/L (98-107); Glucose 111 mg/dL (74-106); Potassium 4.0 mmol/L (3.5-5.1); Sodium 143 mmol/L (136-145); Total Protein 8.1 g/dL (5.7-8.2)
[2025-07-08] MEDS: LORazepam 1 MG TAB PO (20:09)
[2025-07-08 20:19] LABS: INR 1.1 (0.9-1.1); Prothrombin Time 11.2 sec (9.1-11.1)
[2025-07-08 20:27] LABS: Troponin I 80 ng/L (<54)
[2025-07-08 21:30] LABS: Troponin I 91 ng/L (<54)
[2025-07-08] MEDS: Aspirin 81 MG CHEW 324 MG CH (21:49)
--- NOTE | 2025-07-08 22:08 | W.PM.HP.N ---
Date of service: 07/08/25 Time of Service: 22:08 Assessment and Plan Assessment and plan (1) Chest pain: Status: Acute Assessment and plan: EKG is reassuring. Will trend troponins consider consult to cardiology in AM. Patient does have risk factors such as sex age and tobacco history. Patient was given aspirin in the ED. Considering his significant alcohol use as well as potential for ulcers in his stomach, will not give anything besides the aspirin as already given. Patient could benefit from a stress test but will defer to the a.m. (2) Tobacco dependence: Status: Acute Assessment and plan: Patient was significant replacement will add (3) Elevated troponin: Status: Acute Assessment and plan: Reassessed check EKG in the AM. (4) Acute alcoholic intoxication: Status: Acute Assessment and plan: Considering the patient's long history of alcohol use as well as does potential for significant withdrawal, will place in the ICU on phenobarbital protocol. Will also continue his thiamine and folate. History of Present Illness History of Present Illness Chief Complaint: chest pain Narrative: Mr Layton is a 50-year-old gentleman has had multiple contacts with healthcare system over the last month. In fact the patient was seen in the ED on the of this month he was also seen and admitted in the hospital between and of this month as well. The patient comes in with a 2-day history of chest pain which is substernal. He says it does radiate to his back. It is not associated with diaphoresis jaw pain or arm pain. He does mention some numbness in his hands bilaterally. Patient has never had a cardiac evaluation. The patient does smoke approximately one half a pack of cigarettes a day. When the patient was here earlier this month it was for alcohol withdrawal. While in the ED he was noted to have a mild elevation in his troponins from 88-91. His EKG showed tachycardia with a rate at 117. He does have a mild decrease in his R wave progression and normal septal leads. Possible LVH. No clear sign of ACS. Chest x-ray was also performed and was read as negative. In regards to his laboratory data white count is within normal limits MCV high end of normal at 94 platelets were high at 411 INR is 1.1 BUN/creatinine is sixteen 0.5 AST is mildly elevated at 47 lipase is 27. Review of Systems All systems reviewed & are unremarkable except as noted in HPI and below PFSH All Active Problems (Updated 07/08/25 @ 21:59 by Meagan Hernandez NP) Non-ST elevation [place] (NSTEMI) (Acute) Elevated troponin (Acute) Abdominal pain (Acute) Acute alcoholic intoxication (Acute) Thrombocytopenia (Chronic) Tobacco dependence (Acute) Chest pain (Acute) Constipation (Acute) Alcohol intoxication (Acute) Alcoholism, chronic (Chronic) Pancreatitis (Chronic) Gallbladder polyp (Acute) Postprandial RUQ pain (Acute) Gallbladder disease (Acute) Dizziness (Acute) Nicotine addiction (Chronic) Avascular necrosis of bone of left hip (Acute) Hepatic steatosis (Acute) Impairment of balance (Acute) Chronic vertigo (Acute) Medical History Anxiety Acid reflux 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 Osteonecrosis bone of left hip 04/23/24 CT evidence of a vascular necrosis of left hip Alcohol abuse Gallstone (~08/2024) Surgical History 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) Cyst of right upper eyelid Family History Maternal Grandfather Alcohol abuse Maternal Uncle Alcohol abuse Social History Smoking/Tobacco Use Status: Current every day Tobacco Type: cigarettes Years smoked: 25 Smoking risk assessment performed?: Yes Alcohol Intake: current Alcohol Intake frequency: 3 or more drinks per day Counseling given: Yes Drug use: Never Substance use type: does not use Housing: apartment 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 Meds Allergies and Home Medications Allergies Allergy/AdvReac Type Severity Reaction Status Date / Time hydromorphone (From Dilaudid) AdvReac Intermediate Other (See Verified 07/08/25 18:18 Comment) Home Medications ?Medication ?Instructions ?Recorded ?Confirmed ?Type naltrexone 50 mg tablet 50 mg PO DAILY #30 tabs 07/02/25 07/08/25 Rx thiamine HCl (vitamin B1) 100 mg 100 mg PO DAILY #30 tabs 07/06/25 07/08/25 Rx tablet Exam Narrative Exam Narrative: HEENT normocephalic atraumatic mucous membranes moist oropharynx is clear Neck no lymphadenopathy no JVD Cardiovascular tachycardic no murmur rubs gallops Lungs clear to auscultation. Exchange Abdomen scaphoid Extremities no sinus clubbing edema Neurologic horizontal nystagmus otherwise nonfocal speech is slurred Psych patient responds to verbal stimuli appropriately Results Labs 07/08/25 19:11 07/08/25 19:37 Labs: Laboratory Results - last 24 hr 07/08/25 07/08/25 07/08/25 19:11 19:37 20:37 WBC 6.99 RBC 4.50 Hgb 14.9 D Hct 42.2 MCV 94 MCH 33.1 H MCHC 35.3 RDW 13.2 Plt Count 411 H MPV 8.8 Immature Gran % 0.1 Neutrophils % 41.1 Lymphocytes % 43.2 Monocytes % 11.4 Eosinophils % 2.6 Basophils % 1.6 Nucleated RBC % 0.0 Absolute Neutrophils 2.87 Absolute Lymphocytes 3.02 Absolute Monocytes 0.80 Absolute Eosinophils 0.18 Absolute Basophils 0.11 PT Cancelled 11.2 H INR Cancelled 1.1 APTT Cancelled 26.8 Sodium Cancelled 143 Potassium Cancelled 4.0 Chloride Cancelled 101 Carbon Dioxide Cancelled 26.2 Anion Gap Cancelled 15.8 H BUN Cancelled 6 L Creatinine Cancelled 0.5 L Est GFR (CKD-EPI 2020) Cancelled 161.50 Glucose Cancelled 111 H Calcium Cancelled 9.5 Magnesium Cancelled 1.8 Total Bilirubin Cancelled 0.30 AST Cancelled 47 H ALT Cancelled 41 Alkaline Phosphatase Cancelled 79 Troponin I Cancelled 80 H* 91 H* Total Protein Cancelled 8.1 Albumin Cancelled 4.8 Lipase Cancelled 27 Ethyl Alcohol Cancelled 279.9 H Last Vital Signs Temp 36.8 C 07/08/25 18:13 Pulse 116 H 07/08/25 18:13 Resp 14 07/08/25 21:40 BP 146/94 H 07/08/25 18:13 Pulse Ox 96 07/08/25 18:13 PAWSS Have you Been Recently Intoxicated or Drunk Within the Last 30 days?: Yes Have you Ever Experienced Previous Episodes of Alcohol Withdrawal?: Yes Have you ever Experienced Withdrawal Seizures?: Unable to Obtain Have you ever Experienced Delirium Tremens(DT)s?: Yes Have you ever undergone Alcohol Rehabilitation Treatment (i.e, inpt ot outpatient treatment programs)?: Yes Have you ever Experienced Blackouts?: Yes Have you ever Combined Alcohol with other Downers within the last 90 days?: No Have you ever Combined Alcohol with any other Substance of Abuse during the last 90 days?: No Evidence of Increased Autonomic Activity (i.e. HR>120, tremor, sweating, agitation, nausea)?: Yes Result: 6 Time Spent Time spent with Patient: 55-74 minutes Time was spent: preparing to see the patient(eg.review tests), obtaining and/or reviewing separately otained hiistory, ordering medications,tests, procedures, referring, communicating with other health career services representative, indepentently interpreting results, counseling the patient and care coordination
[2025-07-08] MEDS: MULTIVITAMIN 10 ML, THIAMINE 100 MG, FOLIC ACID 1 MG, MAGNESIUM SULFATE 1,000 MG in Nor... 168.867 ML IV (22:20)
--- NOTE | 2025-07-08 23:00 | W.PC.ACHO ---
Registration Status: REG ER Primary Language: Preferred Language: Uzbek ED Information & Data Chief Complaint ETOHWithdr 07/08/25 18:41 Triage Note PT reports not feeling right 07/08/25 18:13 , states that the ground feels like its falling out from under him. Denies pain in abd but states that he feels like his pancreas is giving out. PT states last drink was 0200 yesterday. 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) Cyst of right upper eyelid Most Recent Vital Signs Temperature 36.8 C 07/08/25 18:13 Pulse 116 H 07/08/25 18:13 Pulse 132 H 07/08/25 21:40 Respiratory Rate 14 07/08/25 21:40 Respiratory Effort Normal, Non-Labored 07/08/25 20:39 Respiratory Depth Normal 07/08/25 20:39 Respiratory Pattern Normal 07/08/25 19:00 Blood Pressure 146/94 H 07/08/25 18:13 Blood Pressure Position Sitting 07/08/25 18:13 Pulse Oximetry 96 07/08/25 18:13 Oxygen Delivery Method Room Air 07/08/25 18:13 Oxygen Flow Rate 0 07/08/25 18:13 Comment provider aware, pt asymptomatic 07/08/25 21:40 Allergies hydromorphone (From Dilaudid) Adverse Reaction (Intermediate, Verified 07/08/25 18:18) Other (See Comment) Nausea. Dont give me that stuff. Active Medications Generic Name Dose Route Start Last Admin Trade Name Freq PRN Reason Stop Dose Admin Multivitamins 10 ml/ Thiamine 1,013.2 mls @ 168.867 mls/hr 07/08/25 21:56 07/08/25 22:20 HCl 100 mg/ Folic Acid 1 mg/ IV 07/09/25 03:55 168.867 mls/hr Magnesium Sulfate 1,000 mg/ INFUSION ONE Administration Sodium Chloride IV IV Catheter Type [Left Peripheral IV Antecubital] IV Catheter Gauge [Left 18 Antecubital] Diet Orders Category Date Time Status Regular/Normal [DIET] Nutrition 07/09/25 Breakfast Ordered Diagnostics 07/08/25 07/08/25 07/08/25 Range/Units 22:40 20:37 19:37 WBC (4.4-10.8) 10^3/uL RBC (4.36-5.78) 10^6/uL Hgb (13.5-17.5) g/dL Hct (40.0-50.0) % MCV (80-95) fL MCH (27.0-33.0) pg MCHC (32.0-36.0) % RDW (11.8-14.1) % Plt Count (130-400) 10^3/uL MPV (8.0-11.0) fL Immature Gran % % Neutrophils % % Lymphocytes % % Monocytes % % Eosinophils % % Basophils % % Nucleated RBC % (0.0-0.3) % Absolute Neutrophils (1.2-6.7) 10^3/uL Absolute Lymphocytes (1.2-3.4) 10^3/uL Absolute Monocytes (0.1-0.8) 10^3/uL Absolute Eosinophils (0.0-0.7) 10^3/uL Absolute Basophils (0.0-0.2) 10^3/uL PT 11.2 H INR 1.1 APTT 26.8 Sodium 143 Potassium 4.0 Chloride 101 Carbon Dioxide 26.2 Anion Gap 15.8 H BUN 6 L Creatinine 0.5 L Est GFR (CKD-EPI 2020) 161.50 Glucose 111 H Calcium 9.5 Magnesium 1.8 Total Bilirubin 0.30 AST 47 H ALT 41 Alkaline Phosphatase 79 Troponin I Pending 91 H* 80 H* Total Protein 8.1 Albumin 4.8 Lipase 27 Ethyl Alcohol 279.9 H 07/08/25 Range/Units 19:11 WBC 6.99 (4.4-10.8) 10^3/uL RBC 4.50 (4.36-5.78) 10^6/uL Hgb 14.9 D (13.5-17.5) g/dL Hct 42.2 (40.0-50.0) % MCV 94 (80-95) fL MCH 33.1 H (27.0-33.0) pg MCHC 35.3 (32.0-36.0) % RDW 13.2 (11.8-14.1) % Plt Count 411 H (130-400) 10^3/uL MPV 8.8 (8.0-11.0) fL Immature Gran % 0.1 % Neutrophils % 41.1 % Lymphocytes % 43.2 % Monocytes % 11.4 % Eosinophils % 2.6 % Basophils % 1.6 % Nucleated RBC % 0.0 (0.0-0.3) % Absolute Neutrophils 2.87 (1.2-6.7) 10^3/uL Absolute Lymphocytes 3.02 (1.2-3.4) 10^3/uL Absolute Monocytes 0.80 (0.1-0.8) 10^3/uL Absolute Eosinophils 0.18 (0.0-0.7) 10^3/uL Absolute Basophils 0.11 (0.0-0.2) 10^3/uL PT Cancelled INR Cancelled APTT Cancelled Sodium Cancelled Potassium Cancelled Chloride Cancelled Carbon Dioxide Cancelled Anion Gap Cancelled BUN Cancelled Creatinine Cancelled Est GFR (CKD-EPI 2020) Cancelled Glucose Cancelled Calcium Cancelled Magnesium Cancelled Total Bilirubin Cancelled AST Cancelled ALT Cancelled Alkaline Phosphatase Cancelled Troponin I Cancelled Total Protein Cancelled Albumin Cancelled Lipase Cancelled Ethyl Alcohol Cancelled Intake and Output - 24 Hour Total 07/08/25 18:10 thru 07/08/25 20:52 Intake Total 500 Balance 500 Weight 70.307 kg Intake: IV 500 Falls Risk Assessment History of Falls No History 07/08/25 18:17 Contributing Factors No Factors 07/08/25 18:17 Ambulatory Aids Independent 07/08/25 18:17 Tubes/Lines None 07/08/25 18:17 Gait Evaluation No gait disturbance 07/08/25 18:17 Cognition No cognitive impairment 07/08/25 18:17 Fall Total Score 0 07/08/25 18:17 Level of Risk Standard/Low Risk 07/08/25 18:17 Problems (Last Reviewed 07/08/25 @ 18:39 by Meagan Hernandez NP) Elevated troponin (Acute) Acute alcoholic intoxication (Acute) Tobacco dependence (Acute) Chest pain (Acute) Attestation Statement: By documenting the first initial, last name, and credentials of the reporting nurse below, both parties acknowledge that all relevant information regarding the patient handoff has been communicated, and that all questions have been addressed to ensure continuity and safety of care. Additional Patient Information/Comments: Admitted today for alcohol withdrawal, and chest pain. Also, reported numbness, but has a hard time telling exactly where his pain, and numbness is. He pointed to his left chest for his pain, and stated numbness on face. He is a poor historian, and the patient, and his girlfriend had different times reported for his last drink. Patient stated it was yesterday, and girlfriend said 2 days ago, patient does experience black outs. Patient reports he feels like he is falling, even when he is laying down. patient has been tachycardic, and did have 5-10 beats of VT in the ED, provider aware. Aspirin was give for increased troponin. Has 18 gauge PIV in left AC, that was US guided. Report Received From: Jeanie Grajeda RN
[2025-07-08 23:28] LABS: Troponin I 94 ng/L (<54)
[2025-07-09] VITALS (19 sets, daily range): BP systolic 88–140; BP diastolic 65–89; PULSE 61–100; RESP 8–20; TEMP 36.7–37.4; O2SAT 92–97
[2025-07-09] MEDS: PHENobarbital 150 MG in Normal Saline 50 ML 100 MG IVPB (00:03)
[2025-07-09] MEDS: Normal Saline Flush 10 ML SYR IVP ×6 (00:04→20:41)
[2025-07-09] MEDS: Ondansetron 4 MG/2 ML VIAL IVP (03:05)
[2025-07-09] MEDS: PHENobarbital 110 MG in Normal Saline 50 ML 100 MG IVPB ×2 (03:06→05:50)
[2025-07-09] MEDS: Scopolamine 1 MG/3 DAYS PATCH TD (05:21)
--- NOTE | 2025-07-09 05:30 | RT.EKG_ITS ---
APPROVED REPORT Exam: Resting ECG Reason for Exam: patient symptoms Patient Location: I HR:77 bpm ECG Measurements Heart Rate 77 AXIS NV 145 P 3 QRSd 91 QRS 43 QT 398 T 58 QTc 451 Conclusion Sinus rhythm...normal P axis, V-rate 50- 99 ST elev, probable normal early repol pattern...ST elevation, age<55 Baseline wander in lead(s) V1 Normal Electrocardiogram
[2025-07-09 06:16] LABS: Abs Immature Grans 0.01 10^3/uL (0.0-0.06); HCT 32.1 % (40.0-50.0); HGB 11.3 g/dL (13.5-17.5); Immature Grans % 0.1 %; MCH 33.1 pg (27.0-33.0); MCHC 35.2 % (32.0-36.0); MCV 94 fL (80-95); MPV 9.9 fL (8.0-11.0); Platelet Count 353 10^3/uL (130-400); RBC 3.41 10^6/uL (4.36-5.78); RDW 13.2 % (11.8-14.1); RDW-SD 45.5 fL; WBC 7.41 10^3/uL (4.4-10.8)
[2025-07-09 06:22] LABS: Magnesium 1.8 mg/dL (1.6-2.6)
[2025-07-09 06:38] LABS: ALT 36 U/L (10-49); AST 70 U/L (<34); Albumin 4.1 g/dL (3.4-5.0); Alkaline Phosphatase 65 U/L (46-116); Bilirubin, Direct 0.2 mg/dL (<=0.3); Bilirubin, Total 0.70 mg/dL (0.2-1.2); Total Protein 6.9 g/dL (5.7-8.2)
[2025-07-09 07:29] LABS: Lipase 28 U/L (<53)
[2025-07-09] MEDS: Naltrexone 50 MG TAB PO (08:28)
[2025-07-09] MEDS: Folic Acid 1 MG TAB PO (08:28)
[2025-07-09] MEDS: Enoxaparin 40 MG/0.4 ML SYR SC (08:28)
[2025-07-09] MEDS: Thiamine 100 MG TAB PO (08:28)
[2025-07-09] MEDS: Multivitamin TAB 1 TAB PO (08:28)
--- NOTE | 2025-07-09 08:36 | PDOC.CMIN ---
Date of service: 07/09/25 Time of Service: 08:36 Care Management Initial Assmt Initial Assessment Reason for Hospitalization: Chest pain/ETOH withdrawal Functional Status/Living Situation Patient Presentation: CM met with Paul, who was awake and sitting up in bed at the time of the visit. Paul was discharged on 07/02 following an admission for alcohol withdrawal. He presented to the ED yesterday evening with the chief complaint of left-sided chest pain which he reports is his pancreatitis. Paul currently resides in an apartment in [facility]. His parents, who live in [place], and his sister, who resides in [place], remain very supportive. Paul does not have any children. Since his discharge, Paul reports that he has consumed alcohol. Paul acknowledges that he has not attended any AA meetings or met with his volleyball coach since discharge. He is agreeable to having CM page his volleyball coach, who will contact him later today. Per his volleyball coach, after their meeting last night, he expressed interest in going to [facility]. He has the contact information for the volleyball coach in the folder she provided. He shared that he had previously been able to reach Ron, his volleyball coach, via text after his last admission but declines wanting to fill out the paperwork with her today. He states that he accesses the [facility] food shelf twice per month and is also able to obtain additional food within his building as needed. He was also connected with [employer] during that admission and reports that his phone is now working again. Paul reports ongoing difficulty securing employment, which he identifies as one of his primary goals. He has applied for a position at [employer] but has not received a response and has not followed up. A referral to [employer] for housing assistance was submitted during his prior admission. CM will continue to follow and support Paul as appropriate. Town of Residence: [facility] Resides with: Alone Significant Other/Family: Local Natural Supports: family Employment Status: Unemployed Instrumental Activities of Daily Living (ADLs): Independent Medications Medication Management: No Issues/Barriers identified Advance Directives Advance Directives: Do you have an Advance Directive: N 11/22/16, 19:40 AD On File at [facility]: N 11/22/16, 19:40 Date Asked 07/08/25 07/08/25, 18:12 AD Date Reviewed COLST On File at [facility] No 03/30/24, 17:21 COLST Date Scanned Code Status Resuscitation Status Full Code Portal Pt does not currently have a portal and education provided: Yes Insurance Coverage/Financial Issues Insurance: Medicaid of [place] - [id number] Care Team Visit Care Team Role Provider Type Aguilar William MD [facility] STAFF PHYSICIAN OWEN GARRISON NP Primary Care Provider NON-[facility] STAFF PHYSICIAN Meagan Hernandez NP Emergency Provider NURSE PRACTITIONER Florencio Archibald MD Admit Provider [facility] STAFF PHYSICIAN Attending Provider Discharge Potential Discharge Needs: PCP F/U Appt Anticipated Barriers to Discharge: None Identified Patient/Family Education Needs: Review discharge instructions, discuss Ask Me Three Transportation: [facility] Plan: Anticipate Paul will be discharged home with no new services when medically cleared. He does intend to continue to meet with his Non Emergency Services Ambulance Driver. Paul will follow up with his PCP and plan of care and will transport home via [facility]. CM will follow and continue to assess for discharge needs. Social Determinants of Health Screening Will the Patient Participate in the Screening?: Unable to obtain Do you worry about having a steady place to live?: no Comments: patient too drowsy to answer at this time [facility] All Active Problems (Updated 07/08/25 @ 21:59 by Meagan Hernandez NP) Non-ST elevation [place] (NSTEMI) (Acute) Elevated troponin (Acute) Abdominal pain (Acute) Acute alcoholic intoxication (Acute) Thrombocytopenia (Chronic) Tobacco dependence (Acute) Chest pain (Acute) Constipation (Acute) Alcohol intoxication (Acute) Alcoholism, chronic (Chronic) Pancreatitis (Chronic) Gallbladder polyp (Acute) Postprandial RUQ pain (Acute) Gallbladder disease (Acute) Dizziness (Acute) Nicotine addiction (Chronic) Avascular necrosis of bone of left hip (Acute) Hepatic steatosis (Acute) Impairment of balance (Acute) Chronic vertigo (Acute) Medical History Anxiety Acid reflux 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 Osteonecrosis bone of left hip 04/23/24 CT evidence of a vascular necrosis of left hip Alcohol abuse Gallstone (~08/2024) Surgical History 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) Cyst of right upper eyelid Family History Maternal Grandfather Alcohol abuse Maternal Uncle Alcohol abuse Social History Smoking/Tobacco Use Status: Current every day Tobacco Type: cigarettes Years smoked: 25 Smoking risk assessment performed?: Yes Alcohol Intake: current Alcohol Intake frequency: 3 or more drinks per day Counseling given: Yes Drug use: Never Substance use type: does not use Housing: apartment 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 Readmission Within the Past 30 Days Yes or No: No Date of First Admission Date of 1st Admission: 06/28/25 Date of this Admission Date of Admission: 07/08/25 This admission was: Through ED Office Visit Since 1st Admission Have you seen your PCP in the office since discharge?: No Had an appointment Been Scheduled?: No Speicalist Appointments Have you seen any other specialist since your 1st Admission?: No I. Interview patient and/or Family Difficulty reaching your doctor or getting an office appt?: No Have you had trouble purchasing/ or taking medication?: No Have you had trouble with getting meals at home?: No Did you feel ready for discharge when you left the last time: No Were services received that you thought were set up on disch: No Did you call your physician beore you came to the ED?: No Did your physician tell you to come in?: No If the patient had a VNA ordered Did the patient have a VNA order?: No ED visits How many ED visits in the past 12 months: 18 Assessment for Readmission Summary of readmission circumstances, based upon interviews: he reports is his pancreatitis
[2025-07-09 09:35] LABS: Lab Add On Test DONE
[2025-07-09 09:59] LABS: Troponin I 40 ng/L (<54)
[2025-07-09 10:36] LABS: Cholesterol 133 mg/dL (<200); HDL Cholesterol 73 mg/dL (>40)
[2025-07-09] MEDS: PHENobarbital 130 MG/ML VIAL IVP ×3 (10:40→20:41)
--- NOTE | 2025-07-09 10:40 | PGE_ITS ---
Date of Service Date of service: 07/09/25 Time of Service: 10:40 Assessment and Plan Assessment and plan (1) Non-ST elevation [place] (NSTEMI): Status: Acute Assessment and plan: No longer symptomatic, troponins trending down to normal this morning. This is c/w type 2 ACS. Will treat with ASA and atorvastatin, though recent lipids not high. Repeat lipids/A1c to assess risks. Continue tele. I don't think full dose anticoagulation indicated, but VTE prophylaxis with enoxaparin. (2) Alcohol withdrawal: Status: Resolved Assessment and plan: On phenobarbital protocol. His CIWAs are moderate. Relapse was in the past few days so I don't anticipate severe withdrawal. Likely able to go to floor this afternoon. (3) Tobacco dependence: Status: Acute Assessment and plan: NRT prn Subjective Subjective Patient reports: feels better, tolerating a regular diet, voiding w/o difficulty and nausea; denies vomiting, shortness of breath or fever Interval history since last seen: events: scopolamine patch for nausea helping He feels okay. No chest pain or neck/arm pain. not lightheaded. He feels like he can eat. Exam Narrative Exam Narrative: General: This is a pleasant man, alert and oriented, NAD HEENT: Normocephalic, atraumatic CV: RRR, no m/g/r Resp: CTAB, nl effort Abd: soft, NTND Neuro: awake, alert, no focal deficits Objective Last Vital Signs Temp 37.4 C 07/09/25 03:34 Pulse 77 07/09/25 06:00 Resp 16 07/09/25 06:00 BP 119/73 07/09/25 06:00 Pulse Ox 96 07/09/25 06:00 Laboratory Results - last 24 hr 07/08/25 07/08/25 07/08/25 19:11 19:37 20:37 WBC 6.99 RBC 4.50 Hgb 14.9 D Hct 42.2 MCV 94 MCH 33.1 H MCHC 35.3 RDW 13.2 Plt Count 411 H MPV 8.8 Immature Gran % 0.1 Neutrophils % 41.1 Lymphocytes % 43.2 Monocytes % 11.4 Eosinophils % 2.6 Basophils % 1.6 Nucleated RBC % 0.0 Absolute Neutrophils 2.87 Absolute Lymphocytes 3.02 Absolute Monocytes 0.80 Absolute Eosinophils 0.18 Absolute Basophils 0.11 PT Cancelled 11.2 H INR Cancelled 1.1 APTT Cancelled 26.8 Sodium Cancelled 143 Potassium Cancelled 4.0 Chloride Cancelled 101 Carbon Dioxide Cancelled 26.2 Anion Gap Cancelled 15.8 H BUN Cancelled 6 L Creatinine Cancelled 0.5 L Est GFR (CKD-EPI 2020) Cancelled 161.50 Glucose Cancelled 111 H Calcium Cancelled 9.5 Phosphorus Magnesium Cancelled 1.8 Total Bilirubin Cancelled 0.30 Conjugated Bilirubin AST Cancelled 47 H ALT Cancelled 41 Alkaline Phosphatase Cancelled 79 Troponin I Cancelled 80 H* 91 H* Total Protein Cancelled 8.1 Albumin Cancelled 4.8 Triglycerides Total Cholesterol LDL Cholesterol, Calc HDL Cholesterol Lipase Cancelled 27 Ethyl Alcohol Cancelled 279.9 H Add-On Test Request 07/08/25 07/09/25 07/09/25 22:40 05:40 07:06 WBC 7.41 RBC 3.41 L Hgb 11.3 L D Hct 32.1 L MCV 94 MCH 33.1 H MCHC 35.2 RDW 13.2 Plt Count 353 MPV 9.9 Immature Gran % 0.1 Neutrophils % 60.0 Lymphocytes % 23.8 Monocytes % 12.6 Eosinophils % 2.6 Basophils % 0.9 Nucleated RBC % 0.0 Absolute Neutrophils 4.45 Absolute Lymphocytes 1.76 Absolute Monocytes 0.93 H Absolute Eosinophils 0.19 Absolute Basophils 0.07 PT INR APTT Sodium Potassium Chloride Carbon Dioxide Anion Gap BUN Creatinine Est GFR (CKD-EPI 2020) Glucose Calcium Phosphorus 2.8 Magnesium 1.8 Total Bilirubin 0.70 Conjugated Bilirubin 0.2 AST 70 H ALT 36 Alkaline Phosphatase 65 Troponin I 94 H* 40 Total Protein 6.9 Albumin 4.1 Triglycerides Cancelled Total Cholesterol Cancelled LDL Cholesterol, Calc Cancelled HDL Cholesterol Cancelled Lipase Cancelled 28 Ethyl Alcohol Add-On Test Request DONE 07/09/25 08:10 WBC RBC Hgb Hct MCV MCH MCHC RDW Plt Count MPV Immature Gran % Neutrophils % Lymphocytes % Monocytes % Eosinophils % Basophils % Nucleated RBC % Absolute Neutrophils Absolute Lymphocytes Absolute Monocytes Absolute Eosinophils Absolute Basophils PT INR APTT Sodium Potassium Chloride Carbon Dioxide Anion Gap BUN Creatinine Est GFR (CKD-EPI 2020) Glucose Calcium Phosphorus Magnesium Total Bilirubin Conjugated Bilirubin AST ALT Alkaline Phosphatase Troponin I Total Protein Albumin Triglycerides 78 Total Cholesterol 133 LDL Cholesterol, Calc 44.6 HDL Cholesterol 73 Lipase Ethyl Alcohol Add-On Test Request PAWSS Have you Been Recently Intoxicated or Drunk Within the Last 30 days?: Yes Have you Ever Experienced Previous Episodes of Alcohol Withdrawal?: Yes Have you ever Experienced Withdrawal Seizures?: Unable to Obtain Have you ever Experienced Delirium Tremens(DT)s?: Yes Have you ever undergone Alcohol Rehabilitation Treatment (i.e, inpt ot outpatient treatment programs)?: Yes Have you ever Experienced Blackouts?: Yes Have you ever Combined Alcohol with other Downers within the last 90 days?: No Have you ever Combined Alcohol with any other Substance of Abuse during the last 90 days?: No Evidence of Increased Autonomic Activity (i.e. HR>120, tremor, sweating, agitation, nausea)?: Yes Result: 6 Time Spent with Patient Time Spent with Patient: 35-49 minutes Time was spent: preparing to see the patient(eg.review tests), obtaining and/or reviewing separately otained hiistory, ordering medications,tests, procedures, referring, communicating with other health transitional care nurse, indepentently interpreting results, counseling the patient and care coordination
[2025-07-09 11:20] LABS: Hemoglobin A1C 5.5 % (<5.7)
--- NOTE | 2025-07-09 14:08 | W.PC.ACHO ---
Registration Status: ADM IN Primary Language: Preferred Language: Faroese ED Information & Data Chief Complaint ETOHWithdr 07/08/25 18:41 Triage Note PT reports not feeling right 07/08/25 18:13 , states that the ground feels like its falling out from under him. Denies pain in abd but states that he feels like his pancreas is giving out. PT states last drink was 0200 yesterday. 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) Cyst of right upper eyelid Most Recent Vital Signs Temperature 99.3 F 07/09/25 03:34 Temperature Source Temporal Artery Scan 07/09/25 03:34 Pulse 81 07/09/25 13:46 Pulse 100 H 07/09/25 13:01 Respiratory Rate 14 07/09/25 13:01 Respiratory Effort Normal, Non-Labored 07/08/25 20:39 Respiratory Depth Normal 07/08/25 20:39 Respiratory Pattern Normal 07/08/25 19:00 Blood Pressure 137/89 07/09/25 13:46 Blood Pressure Mean 105 07/09/25 13:46 Blood Pressure Position Sitting 07/08/25 18:13 Pulse Oximetry 96 07/09/25 13:01 Oxygen Delivery Method Room Air 07/09/25 03:34 Oxygen Flow Rate 0 07/09/25 03:34 Pain Level 0 07/09/25 13:46 Comment provider aware, pt asymptomatic 07/08/25 21:40 Allergies hydromorphone (From Dilaudid) Adverse Reaction (Intermediate, Verified 07/08/25 18:18) Other (See Comment) Nausea. Dont give me that stuff. Active Medications Generic Name Dose Route Start Last Admin Trade Name Freq PRN Reason Stop Dose Admin Enoxaparin Sodium 40 mg 07/09/25 08:30 07/09/25 08:28 Enoxaparin 40 Mg/0.4 Ml Syr SC 40 mg Q24H JOSSELYN Administration Folic Acid 1 mg 07/09/25 08:30 07/09/25 08:28 Folic Acid 1 Mg Tab PO 07/15/25 08:31 1 mg QAM JOSSELYN Administration Multivitamins 1 tab 07/09/25 08:30 07/09/25 08:28 Multivitamin Tab PO 07/15/25 08:31 1 tab QAM JOSSELYN Administration Naltrexone HCl 50 mg 07/09/25 08:30 07/09/25 08:28 Naltrexone 50 Mg Tab PO 50 mg DAILY JOSSELYN Administration Ondansetron HCl 4 mg 07/09/25 02:22 07/09/25 03:05 Ondansetron 4 Mg/2 Ml Vial IVP 4 mg Q6H PRN PRN Administration Phenobarbital Sodium 130 mg 07/09/25 05:19 07/09/25 10:40 Phenobarbital 130 Mg/Ml Vial IVP 130 mg PRN PRN Administration Alcohol Withdrawal Scopolamine HBr 1 mg 07/09/25 05:00 07/09/25 05:21 Scopolamine 1 Mg/3 Days Patch TD 1 mg Q72H JOSSELYN Administration Sodium Chloride 0 ml 07/08/25 18:34 07/09/25 10:40 Normal Saline Flush 10 Ml Syr IVP 10 ml PRN PRN Administration Sodium Chloride 0 ml 07/08/25 20:00 07/09/25 08:29 Normal Saline Flush 10 Ml Syr IVP 20 ml BID JOSSELYN Administration Thiamine HCl 100 mg 07/09/25 08:30 07/09/25 08:28 Thiamine 100 Mg Tab PO 100 mg DAILY JOSSELYN Administration IV IV Catheter Type [Right Wrist] Peripheral IV IV Catheter Type [Left Peripheral IV Antecubital] IV Catheter Gauge [Right Wrist 20 ] IV Catheter Gauge [Left 18 Antecubital] Diet Orders Category Date Time Status Regular/Normal [DIET] Nutrition 07/09/25 Breakfast Active Diagnostics 07/09/25 07/09/25 07/09/25 Range/Units 08:10 07:06 05:40 WBC 7.41 (4.4-10.8) 10^3/uL RBC 3.41 L (4.36-5.78) 10^6/uL Hgb 11.3 L D (13.5-17.5) g/dL Hct 32.1 L (40.0-50.0) % MCV 94 (80-95) fL MCH 33.1 H (27.0-33.0) pg MCHC 35.2 (32.0-36.0) % RDW 13.2 (11.8-14.1) % Plt Count 353 (130-400) 10^3/uL MPV 9.9 (8.0-11.0) fL Immature Gran % 0.1 % Neutrophils % 60.0 % Lymphocytes % 23.8 % Monocytes % 12.6 % Eosinophils % 2.6 % Basophils % 0.9 % Nucleated RBC % 0.0 (0.0-0.3) % Absolute Neutrophils 4.45 (1.2-6.7) 10^3/uL Absolute Lymphocytes 1.76 (1.2-3.4) 10^3/uL Absolute Monocytes 0.93 H (0.1-0.8) 10^3/uL Absolute Eosinophils 0.19 (0.0-0.7) 10^3/uL Absolute Basophils 0.07 (0.0-0.2) 10^3/uL PT INR APTT Sodium Potassium Chloride Carbon Dioxide Anion Gap BUN Creatinine Est GFR (CKD-EPI 2020) Glucose Hemoglobin A1c 5.5 (<5.7) % Calcium Phosphorus 2.8 (2.4-5.1) mg/dL Magnesium 1.8 Total Bilirubin 0.70 Conjugated Bilirubin 0.2 (<=0.3) mg/dL AST 70 H ALT 36 Alkaline Phosphatase 65 Troponin I 40 Total Protein 6.9 Albumin 4.1 Triglycerides 78 Cancelled Total Cholesterol 133 Cancelled LDL Cholesterol, Calc 44.6 Cancelled HDL Cholesterol 73 Cancelled Lipase 28 Cancelled Ethyl Alcohol Add-On Test Request DONE 07/08/25 07/08/25 07/08/25 Range/Units 22:40 20:37 19:37 WBC (4.4-10.8) 10^3/uL RBC (4.36-5.78) 10^6/uL Hgb (13.5-17.5) g/dL Hct (40.0-50.0) % MCV (80-95) fL MCH (27.0-33.0) pg MCHC (32.0-36.0) % RDW (11.8-14.1) % Plt Count (130-400) 10^3/uL MPV (8.0-11.0) fL Immature Gran % % Neutrophils % % Lymphocytes % % Monocytes % % Eosinophils % % Basophils % % Nucleated RBC % (0.0-0.3) % Absolute Neutrophils (1.2-6.7) 10^3/uL Absolute Lymphocytes (1.2-3.4) 10^3/uL Absolute Monocytes (0.1-0.8) 10^3/uL Absolute Eosinophils (0.0-0.7) 10^3/uL Absolute Basophils (0.0-0.2) 10^3/uL PT 11.2 H INR 1.1 APTT 26.8 Sodium 143 Potassium 4.0 Chloride 101 Carbon Dioxide 26.2 Anion Gap 15.8 H BUN 6 L Creatinine 0.5 L Est GFR (CKD-EPI 2020) 161.50 Glucose 111 H Hemoglobin A1c (<5.7) % Calcium 9.5 Phosphorus (2.4-5.1) mg/dL Magnesium 1.8 Total Bilirubin 0.30 Conjugated Bilirubin (<=0.3) mg/dL AST 47 H ALT 41 Alkaline Phosphatase 79 Troponin I 94 H* 91 H* 80 H* Total Protein 8.1 Albumin 4.8 Triglycerides Total Cholesterol LDL Cholesterol, Calc HDL Cholesterol Lipase 27 Ethyl Alcohol 279.9 H Add-On Test Request 07/08/25 Range/Units 19:11 WBC 6.99 (4.4-10.8) 10^3/uL RBC 4.50 (4.36-5.78) 10^6/uL Hgb 14.9 D (13.5-17.5) g/dL Hct 42.2 (40.0-50.0) % MCV 94 (80-95) fL MCH 33.1 H (27.0-33.0) pg MCHC 35.3 (32.0-36.0) % RDW 13.2 (11.8-14.1) % Plt Count 411 H (130-400) 10^3/uL MPV 8.8 (8.0-11.0) fL Immature Gran % 0.1 % Neutrophils % 41.1 % Lymphocytes % 43.2 % Monocytes % 11.4 % Eosinophils % 2.6 % Basophils % 1.6 % Nucleated RBC % 0.0 (0.0-0.3) % Absolute Neutrophils 2.87 (1.2-6.7) 10^3/uL Absolute Lymphocytes 3.02 (1.2-3.4) 10^3/uL Absolute Monocytes 0.80 (0.1-0.8) 10^3/uL Absolute Eosinophils 0.18 (0.0-0.7) 10^3/uL Absolute Basophils 0.11 (0.0-0.2) 10^3/uL PT Cancelled INR Cancelled APTT Cancelled Sodium Cancelled Potassium Cancelled Chloride Cancelled Carbon Dioxide Cancelled Anion Gap Cancelled BUN Cancelled Creatinine Cancelled Est GFR (CKD-EPI 2020) Cancelled Glucose Cancelled Hemoglobin A1c (<5.7) % Calcium Cancelled Phosphorus (2.4-5.1) mg/dL Magnesium Cancelled Total Bilirubin Cancelled Conjugated Bilirubin (<=0.3) mg/dL AST Cancelled ALT Cancelled Alkaline Phosphatase Cancelled Troponin I Cancelled Total Protein Cancelled Albumin Cancelled Triglycerides Total Cholesterol LDL Cholesterol, Calc HDL Cholesterol Lipase Cancelled Ethyl Alcohol Cancelled Add-On Test Request Intake and Output - 24 Hour Total 07/08/25 18:10 thru 07/09/25 09:05 Intake Total 2576.0462 Balance 2576.0462 Weight 148 lb 5.938 oz Intake: IV 1666.0462 Oral 910 Other: Comment mixed with stool Stool Size Smear Stool Characteristics Soft Formed [place] Falls Risk Assessment History of Falls Previous History 07/08/25 23:26 Contributing Factors Unstable,Impairments, 07/08/25 23:26 Medications Ambulatory Aids Independent 07/08/25 23:26 Tubes/Lines W/no contributing factors 07/08/25 23:26 Gait Evaluation W/no contributing factors 07/08/25 23:26 Cognition No cognitive impairment 07/08/25 23:26 Fall Total Score 44 07/08/25 23:26 Level of Risk Moderate Risk 07/08/25 23:26 Problems (Last Reviewed 07/08/25 @ 18:39 by Meagan Hernandez NP) Non-ST elevation [place] (NSTEMI) (Acute) Elevated troponin (Acute) Acute alcoholic intoxication (Acute) Tobacco dependence (Acute) Chest pain (Acute) Attestation Statement: By documenting the first initial, last name, and credentials of the reporting nurse below, both parties acknowledge that all relevant information regarding the patient handoff has been communicated, and that all questions have been addressed to ensure continuity and safety of care. Additional Patient Information/Comments: Report Received From: Zia Stroud RN
--- NOTE | 2025-07-09 14:56 | PHACLINREV_ITS ---
Pharmacy Admission Review Admission Clinical Review Admission Pharmacy Review: Non-ST elevation [place] (NSTEMI) (Acute) Elevated troponin (Acute) Acute alcoholic intoxication (Acute) Tobacco dependence (Acute) Chest pain (Acute) hydromorphone (From Dilaudid) Adverse Reaction (Intermediate, Verified 07/08/25 18:18) Other (See Comment) Resuscitation Status Full Code Height 5 ft 6 in Weight 67.3 kg Comments Comments/Follow Ups: Phenobarbital load received; hard [id number]=[id number] Soft stop=9 60mg. Pharmacy Admission Review Renal Dosing Renal Dosing: BUN 6 mg/dL (9-23) L 07/08/25 19:37 Creatinine 0.5 mg/dL (0.73-1.18) L 07/08/25 19:37 Medications needing adjustments: Reviewed (no meds need adjustment) Anticoagulation Anticoagulation: Hgb 11.3 g/dL (13.5-17.5) L D 07/09/25 05:40 Hct 32.1 % (40.0-50.0) L 07/09/25 05:40 Plt Count 353 10^3/uL (130-400) 07/09/25 05:40 INR 1.1 (0.9-1.1) 07/08/25 19:37 Creatinine 0.5 mg/dL (0.73-1.18) L 07/08/25 19:37 DVT Prophylaxis: Reviewed Medications: Enoxaparin Opiate Usage Evaluate Pain Scale/Pains Meds: N/A Relevant Labs Relevant Labs: Sodium 143 mmol/L (136-145) 07/08/25 19:37 Potassium 4.0 mmol/L (3.5-5.1) 07/08/25 19:37 Chloride 101 mmol/L (98-107) 07/08/25 19:37 Phosphorus 2.8 mg/dL (2.4-5.1) 07/09/25 05:40 Magnesium 1.8 mg/dL (1.6-2.6) 07/09/25 05:40 Electrolytes, C-Reactive P, ESR: Reviewed DM Control DM Control: Reviewed (am [id number]) Cardiac Review Cardiac Review: Troponin I 40 ng/L (<54) 07/09/25 07:06 BP, HR, EF%: Reviewed (on aspirin and atorvastatin for type II NSTEMI; UQ=005/89; HR=81) QTc Review QTc: Reviewed (DYH=875) IV to PO Switch IV Medications: Reviewed Home Meds Home Med List reviewed: Reviewed Current Meds Current Medication Order Review: Reviewed Comments Comments/Follow Ups: Phenobarbital load received; hard erot=[id number] Soft hiyl=[id number].
[2025-07-09] MEDS: Nicotine 14 MG/24 HR PATCH TD (15:51)
[2025-07-10 03:25] VITALS: BP 110/76; PULSE 63; RESP 15; TEMP 36.3; O2SAT 97
[2025-07-10 06:44] LABS: HCT 32.9 % (40.0-50.0); HGB 11.5 g/dL (13.5-17.5); MCH 32.7 pg (27.0-33.0); MCHC 35.0 % (32.0-36.0); MCV 94 fL (80-95); MPV 9.6 fL (8.0-11.0); Platelet Count 282 10^3/uL (130-400); RBC 3.52 10^6/uL (4.36-5.78); RDW 12.7 % (11.8-14.1); RDW-SD 43.5 fL; WBC 5.23 10^3/uL (4.4-10.8)
[2025-07-10 07:07] LABS: Magnesium 1.7 mg/dL (1.6-2.6)
[2025-07-10 07:09] LABS: ALT 34 U/L (10-49); AST 52 U/L (<34); Albumin 4.2 g/dL (3.4-5.0); Alkaline Phosphatase 86 U/L (46-116); Anion Gap 10 mmol/L (3-11); BUN 5 mg/dL (9-23); Bilirubin, Total 0.70 mg/dL (0.2-1.2); CO2 25.0 mmol/L (20.0-31.0); Calcium 9.3 mg/dL (8.3-10.6); Chloride 104 mmol/L (98-107); Glucose 97 mg/dL (74-106); Potassium 3.5 mmol/L (3.5-5.1); Sodium 139 mmol/L (136-145); Total Protein 7.1 g/dL (5.7-8.2)
[2025-07-10 07:40] VITALS: BP 118/86; PULSE 63; RESP 18; TEMP 36.8; O2SAT 97
[2025-07-10] MEDS: Normal Saline Flush 10 ML SYR IVP ×2 (08:01→22:00)
[2025-07-10] MEDS: Multivitamin TAB 1 TAB PO (08:01)
[2025-07-10] MEDS: Enoxaparin 40 MG/0.4 ML SYR SC (08:01)
[2025-07-10] MEDS: Naltrexone 50 MG TAB PO (08:01)
[2025-07-10] MEDS: Thiamine 100 MG TAB PO (08:01)
[2025-07-10] MEDS: Aspirin 81 MG CHEW PO (08:01)
[2025-07-10] MEDS: Folic Acid 1 MG TAB PO (08:01)
--- NOTE | 2025-07-10 09:34 | CMDISCH_ITS ---
Date of service: 07/10/25 Time of Service: 09:34 LACE Index Scoring Tool Questions: Length of Stay (in days): 2 Was the patient admitted via the E.D.?: Yes E.D. Visits: 12 Answers: Total Score: 9 Risk of Readmission: Low Risk Care Management Discharge Plan Reason for Hospitalization: Chest pain/ETOH w/d Discharge Plan: Paul will be discharged home and continue with outpatient PT. He does intend to continue to meet with his Mechanical Maintenance Technician and hopes to be able to get back to AA. It is recommended that Paul follow up with his community providers, support teams (including AA and Monica) and discharge plan of care. He will transport home via [facility] private vehicle, as coordinated by CM. Patient/Family Education Needs: Review of discharge instruction, activity, limitations, and plan of care. Discuss Ask me three. SDOH Health Related Social Needs: Health related social needs risk of homeless transpo i nsecurity house/econ circumstance finding work Health related social needs details See above
--- NOTE | 2025-07-10 10:45 | IN_ITS ---
PT Notes Visit Reasons: Chest Pain / Etoh wd Physical Therapy Inpatient Initial Evaluation Date: 07/10/2025 Referring Doctor: Gustavo Zuniga MD PT Orders: PT CONSULT: Eval/Treat Precautions: Activity as tolerated. Standard. Fall risk. Patient Profile/Admitting Diagnosis: Paul is a 50-year-old male who recently was evaluated by this PT on 06/23/2025 and 06/29/2025 for ETOH abuse and generalized weakness. He returned to the ED via EMS on 07/08/2025 with complaints of substernal chest pain that radiated to his back a nd numbness in hands. He is admitted for further monitoring and management of NSTEMI, ETOH withrawal, and tobacco dependence. PMHX: All Active Problems (Updated 07/08/25 @ 21:59 by Meagan Hernandez NP) Non-ST elevation [place] (NSTEMI) (Acute) Elevated troponin (Acute) Abdominal pain (Acute) Acute alcoholic intoxication (Acute) Thrombocytopenia (Chronic) Tobacco dependence (Acute) Chest pain (Acute) Constipation (Acute) Alcohol intoxication (Acute) Alcoholism, chronic (Chronic) Pancreatitis (Chronic) Gallbladder polyp (Acute) Postprandial RUQ pain (Acute) Gallbladder disease (Acute) Dizziness (Acute) Nicotine addiction (Chronic) Avascular necrosis of bone of left hip (Acute) Hepatic steatosis (Acute) Impairment of balance (Acute) Chronic vertigo (Acute) Medical History Anxiety Acid reflux 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 Osteonecrosis bone of left hip 04/23/24 CT evidence of a vascular necrosis of left hip Alcohol abuse Gallstone (~08/2024) Surgical History 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) Cyst of right upper eyelid Social History/Home Situation: Lives alone in an apartment with 2 flights of steps to enter with a rail on one side. Independent with all aspects of ADLs prior to admission. 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 Equipment Owned/DME: [employer] SUBJECTIVE: Very shaky initially when upright. Verbalized that the ast 4 days he did not have any oral intake but alcohol and a seltzer with 8% proof. His SO noticed that he has not had any soiled dishes int he sink which was very atypical and realized that he has had nothing in his system but alcohol. He feels much bet ter now and was happy that he could at least do something without loosing his balance. OBJECTIVE: Observation: Resting in bed when PT came in. Telemetry monitoring in place. Mental Status: A and O x 4 Vital Signs: BP 132/85 mmHg, 86 bpm, 98% on RA after walking about 150 feet ROM: Right Upper Extremity: Shoulder Flexion WFL. Shoulder abduction WFL. Elbow flexion WFL. Wrist flexion WFL. Functional opening and closing of hand WFL. eft Upper Extremity: Shoulder Flexion WFL. Shoulder abduction WFL. Elbow flexion WFL. Wrist flexion WFL. Functional opening and closing of hand WFL. Right Lower Extremity: Hip flexion WFL. Hip abduction WFL. Knee flexion WFL. Ankle dorsiflexion WFL. Ankle plantarflexion WFL. Left Lower Extremity: Hip flexion WFL. Hip abduction WFL. Knee flexion WFL. Ankle dorsiflexion WFL. Ankle plantarflexion WFL. Strength: Right Upper Extremity: Shoulder flexors 4-/5. Shoulder abductors 4-/5. Elbow flexors 4-/5. Elbow extensors 4-/5. Tube Making Machine Operator strong. Left Upper Extremity: Shoulder flexors 4-/5. Shoulder abductors 4-/5. Elbow flexors 4-/5. Elbow extensors 4-/5. Tube Making Machine Operator strong. Right Lower Extremity: Hip flexors 4-/5. Hip abductors 4-/5. Knee flexors 4/5. Knee extensors 4-/5. Ankle dorsiflexors 4-/5. Ankle plantarflexors 4/5. Left Lower Extremity: Hip flexors 4-/5. Hip abductors 4-/5. Knee flexors 4/5. Knee extensors 4-/5. Ankle dorsiflexors 4-/5. Ankle plantarflexors 4/5. Bed Mobility/Transfers: Minimal cueing provided for use of B hands as needed for support, movement sequence, AD management, and posture to reduce fall risk and minimize pain report Sit to stand contact guard assist with FWW Stand to sit contact guard assist with FWW Gait: Moderately ataxic and reported shakiness that was minimized with use of FWW. No LOB. Covered a distance of at least 150 feet with stand by assist for safety. Minimal shortness of breath. Niurka decreased. Minimal verbal cueing for AD management and overall safety. Stairs: Up ad down 12 x 4-inch steps and 6 x 6-inch steps while holding onot B rails for support. Stand by assist. [id number]-[id number] pattern. Moderately shaky with decreased abilit to estimate distance. Balance: Static Sitting: Good Dynamic Sitting: Good Static Standing: Good Dynamic Standing: Fair Special Tests: Mobility Limitations Standardized Measure [facility] 6 clicks Basic Mobility Inpatient Short Form: Raw Score: 18 [facility] Score:47% deficit 30-second chair rise score: 5x 4-Stage Balance Test: Feet together <10 seconds Semi-tandem deferred Full tandem deferred One-legged stance deferred Informed Consent/Education: Patient was instructed in purpose of PT consult and plan of care. Agreeable to proceed with plan of care. ASSESSMENT: Patient with severe chronic alcoholism who has had 3 admissions in the past 3 weeks for ETOH abuse and withdrawal. He demonstrated functional mobility decline needing the use of a front-wheeled walker for all mobility ADL performance due to gait instability and generalized weakness from admitting diagnoses. Patient will require retraining in safe transfers and ambulation task performance without an assistive device. He will also need balance retraining while on admission and with PT services upon discharge to home. Patient presents with clinical signs and symptoms consistent with cur rent/admitting diagnoses that have resulted to mobility limitations, gait instability, generalized weakness, and overall ADL decline as demonstrated by the following impairment level findings: 1. Impaired standing balance 2. Impaired activity tolerance 3. Generalized weakness 4. Failed the 4-stage balance test 5. 30-second chair rise score of 5 Impairments are contributing to the following functional limitations: 1. Increased completion time for mobility ADL performance 2. Increased risk for falls Patient is assessed as a 71941 moderate complexity based on the following: History: 50-year-old male with past medical history as indicated above Examination: Demonstrable impairments and deficits as above Presentation: Evolving Decision Makin moderate complexity Goals: Goals X1 week 1. Supine-Sit independent 2. Sit-Supine independent 3. Sit-Stand independent 4. Stand-Sit independent 5. Bed-Chair independent 6. Chair-Bed independent 7. Independent gait on level surface with use of no device for at least 500 feet without report of pain nor dyspnea 8. Independent stair negotiation while holding onto bilateral rails for at least 12 steps x 2 without report of pain nor dyspnea 9. Independent with home exercise program 10. Good static and dynamic standing balance/tolerance Plan of Care/Treatment Plan: Patient will highly benefit from skilled physical therapy services including functional mobility training, bed mobility/transfer training, gait and balance training, therapeutic exercises, therapeutic activity, caregiver/staff/family education and training 1x/day, 7 days/week x 1 week. Plan of care has been reviewed with the EVENT MGR providing the service under Physical Therapy direction. Initiate Physical Therapy intervention for strengthening, bed mobility, transfers, gait, stairs, balance training, use of assistive device. Order DISCHARGE RECOMMENDATIONS: OP PT TREATMENT CODE/TIME: 81379 x 20 minutes for 1 unit, 63096 x 23 minutes for 2 units (10:45-11:28). Thank you for the opportunity to participate in the care of this patient. Carey Trevino PT, DPT, CLT [facility] [place], [place]
[2025-07-10 11:25] VITALS: BP 135/80; PULSE 70; RESP 18; TEMP 37; O2SAT 98
--- NOTE | 2025-07-10 13:19 | W.PM.PROGNOT ---
Date of Service Date of service: 07/10/25 Time of Service: 13:19 Assessment and Plan Assessment and plan (1) Alcohol withdrawal: Status: Resolved Assessment and plan: -On phenobarbital protocol, last dose 20:00 07/09/2025 -still a little unsteady on his feet, plan to DC tomorrow AM 07/11 (2) Elevated troponin: Status: Acute Assessment and plan: -mild elevation on admission, likely due to EtOH withdrawal as patient was without benedicto pain or EKG changes (3) Tobacco dependence: Status: Acute Assessment and plan: NRT prn Subjective Subjective Interval history since last seen: Patient states that he is feeling much better though he is having some difficulty walking due to some imbalance/stability issues. Exam Narrative Exam Narrative: Well appearing gentleman laying in bed in no acute distress, AOx4, heart RRR, lungs CTAB, abdomen soft, non-tender, non-distended Objective Last Vital Signs Temp 98.6 F 07/10/25 11:25 Pulse 70 07/10/25 11:25 Resp 18 07/10/25 11:25 BP 135/80 07/10/25 11:25 Pulse Ox 98 07/10/25 11:25 Laboratory Results - last 24 hr 07/10/25 05:59 WBC 5.23 RBC 3.52 L Hgb 11.5 L Hct 32.9 L MCV 94 MCH 32.7 MCHC 35.0 RDW 12.7 Plt Count 282 MPV 9.6 Sodium 139 Potassium 3.5 Chloride 104 Carbon Dioxide 25.0 Anion Gap 10 BUN 5 L Creatinine 0.5 L Est GFR (CKD-EPI 2020) 189.56 Glucose 97 Calcium 9.3 Magnesium 1.7 Total Bilirubin 0.70 AST 52 H ALT 34 Alkaline Phosphatase 86 Total Protein 7.1 Albumin 4.2 PAWSS Have you Been Recently Intoxicated or Drunk Within the Last 30 days?: Yes Have you Ever Experienced Previous Episodes of Alcohol Withdrawal?: Yes Have you ever Experienced Withdrawal Seizures?: Unable to Obtain Have you ever Experienced Delirium Tremens(DT)s?: Yes Have you ever undergone Alcohol Rehabilitation Treatment (i.e, inpt ot outpatient treatment programs)?: Yes Have you ever Experienced Blackouts?: Yes Have you ever Combined Alcohol with other Downers within the last 90 days?: No Have you ever Combined Alcohol with any other Substance of Abuse during the last 90 days?: No Evidence of Increased Autonomic Activity (i.e. HR>120, tremor, sweating, agitation, nausea)?: Yes Result: 6 Time Spent with Patient Time Spent with Patient: >50 minutes Time was spent: preparing to see the patient(eg.review tests), obtaining and/or reviewing separately otained hiistory, ordering medications,tests, procedures, referring, communicating with other health child care director, indepentently interpreting results, counseling the patient and care coordination
--- NOTE | 2025-07-10 13:54 | PT.INTREAT ---
PT Notes Visit Reasons: Chest Pain / Etoh wd Date: 07/02/2025 PRECAUTIONS: Fall, Standard, Activity as tolerated. SUBJECTIVE: pt in bed when approached for therapy this afternoon, pt reports he is feeling better, just feels shaky. agreed to participating with therapy intervention OBJECTIVE: ? VITALS: Monitored via telemetry Therapeutic Activities 31590: Direct one-on-one instruction in dynamic activities to improve functional performance. ?? BED MOBILITY/TRANSFERS? Rolling L/R: supervision Supine-sit: ? supervision ? Sit-supine: ? supervision? Sit-stand: ? SBA ? Stand-sit: ??SBA? Bed-Chair:? ?CGA ? Chair-bed: CGA Provided skilled cues and instruction on performance and technique throughout. Gait Training 78830: Direct one-on-one instruction and skilled instruction in: Modified weight-bearing status Movement sequencing Turning and movement with proper form Provided instruction in gait pattern Patient education regarding pacing and breathing techniques to maximize activity tolerance? GAIT? Assistive Device: ??1 ARTIFICIAL FLOWERS STARCHER ? Weight bearing: FWB Assist: ? CGA? Distance:?? ?200'x2? Deviation: ? ?initially ataxic, able to minimize shaking after a couple of steps, slow juanjo, wide TRACI, low step height, short step length.? STAIRS:? ?2 flights of stairs 12 step per flight, step to gait pattern, 1 handrail CGA ? ASSESSMENT:?pt was initially wobbly/shaky but was able to settle after a couple of steps. PLAN: Continue with balance training, global strengthening and general conditioning for improved safety, mobility and activity tolerance until pt is ready for DC. TREATMENT CODE/TIME: 29774m0, 79318h0 30mins (1:35-2:05pm)
--- NOTE | 2025-07-10 15:04 | CMPROGNOTE_ITS ---
Date of service: 07/10/25 Time of Service: 15:10 Care Management Progress Note Progress Note Text Progress Note Text: Paul was sitting up in bed and awake when CM met with him. His mechanic recovery called earlier today to check in. Per report, Paul was somewhat unsteady on his feet during his morning PT session. His last dose of phenobarbital was at 20:00 on 07/09/2025. Paul is scheduled to work with PT again today. Per PT, the recommendation is outpatient physical therapy, which Paul is agreeable to. CM will continue to follow. Discharge Potential Discharge Needs: PCP F/U Appt Anticipated Barriers to Discharge: None Identified Patient/Family Education Needs: Review discharge instructions, discuss Ask Me Three Transportation: Private vehicle Plan: Anticipate Paul will be discharged home and continue with outpatient PT. He does intend to continue to meet with his Mexican Food Cook and hopes to be able to get back to AA. It is recommended that Paul follow up with his community providers, support teams (including AA and Monica) and discharge plan of care. He will transport home via [facility] private vehicle, as coordinated by CM. CM will follow. Social Determinants of Health Screening Will the Patient Participate in the Screening?: Unable to obtain Do you worry about having a steady place to live?: no Comments: patient too drowsy to answer at this time
[2025-07-10 15:17] VITALS: BP 119/82; PULSE 74; RESP 18; TEMP 37; O2SAT 97
[2025-07-10 21:52] VITALS: BP 112/85; PULSE 64; RESP 18; TEMP 36.6; O2SAT 96
[2025-07-10] MEDS: Melatonin 3 MG TAB 9 MG PO (21:59)
[2025-07-11 08:12] VITALS: BP 113/77; PULSE 70; RESP 18; TEMP 36.9; O2SAT 97
[2025-07-11] MEDS: Folic Acid 1 MG TAB PO (08:27)
[2025-07-11] MEDS: Naltrexone 50 MG TAB PO (08:27)
[2025-07-11] MEDS: Aspirin 81 MG CHEW PO (08:27)
[2025-07-11] MEDS: Multivitamin TAB 1 TAB PO (08:27)
[2025-07-11] MEDS: Thiamine 100 MG TAB PO (08:27)
--- NOTE | 2025-07-11 08:46 | W.PM.DS.N ---
Date of service: 07/11/25 Time of Service: 08:46 DS: Diagnosis Discharge Diagnosis (1) Alcohol withdrawal: Status: Resolved (2) Elevated troponin: Status: Acute (3) Tobacco dependence: Status: Acute Discharge Plan Disposition Patient Disposition: Home Condition: Good Discharge Details Reason For Visit: Chest Pain / Etoh wd Admit Date/Time: 07/08/25 22:00 Admit Provider: Florencio Archibald Attending Provider: Florencio Archibald Primary Care Provider: OWEN GARRISON [facility] Course Hospital Course: Patient presented with signs and symptoms consistent with alcohol withdrawal for which she was on phenobarbital. Following the protocol patient experienced minimal withdrawal symptoms and had significant improvement. He was somewhat unsteady on his feet as of 07/10/2025 but this improves throughout the day. As of the day of discharge 07/11/2025 patient is back to his baseline was determined to be stable for discharge home. Home Meds and New Rx's Prescriptions: Continued naltrexone 50 mg tablet 50 mg PO DAILY Qty: 30 0RF thiamine HCl (vitamin B1) 100 mg tablet 100 mg PO DAILY Qty: 30 0RF Discharge Instructions Stand Alone Forms: Portal Information Activity:: Activity as Tolerated Equipment/Supplies:: No Equipment Needed Diet:: As Tolerated Discharge Orders Discharge Orders: Discharge Order (Routine); Ordered 07/11/25 Ordered By: Gustavo Zuniga DS: Summary Time Spent with Patient providing and/or coordinating discharge services: Greater than 30 minutes Status at Discharge Functional status at discharge: independent ambulation Overall status at discharge: patient is back to baseline Mental Status: mental status grossly normal Speech and Movement: speech and movement normal Mood: congruent mood Affect: normal affect Quality:SDOH Health Related Social Needs: Health related social needs risk of homeless transpo insecurity house/econ circumstance finding work Health related social needs details See above Exam Narrative Exam Narrative: Well appearing gentleman laying in bed in no acute distress, AOx4, heart RRR, lungs CTAB, abdomen soft, non-tender, non-distended Psych Mental Status: mental status grossly normal Speech and Movement: speech and movement normal Mood: congruent mood Affect: normal affect DS: Data Vitals/I&O Vitals and I&O: Vital Signs Temperature 98.4 F 07/11/25 08:12 Temperature Source Temporal Artery Scan 07/11/25 08:12 Pulse 70 07/11/25 08:12 Pulse 100 H 07/09/25 13:01 Respiratory Rate 18 07/11/25 08:12 Respiratory Effort Normal, Non-Labored 07/08/25 20:39 Respiratory Depth Normal 07/08/25 20:39 Respiratory Pattern Normal 07/08/25 19:00 Blood Pressure 113/77 07/11/25 08:12 Blood Pressure Mean 89 07/11/25 08:12 Blood Pressure Position Sitting 07/08/25 18:13 Pulse Oximetry 97 07/11/25 08:12 Oxygen Delivery Method Room Air 07/11/25 08:12 Oxygen Flow Rate 0 07/11/25 08:12 Pain Level 0 07/10/25 21:52 Comment pt sleeping...q4 while awake..will attempt again at 11p 07/10/25 20:09 Comment provider aware, pt asymptomatic 07/08/25 21:40 Intake & Output 07/10/25 07/11/25 07/11/25 17:59 05:59 17:59 Intake Total 1200 / 1200 410 / 1610 Output Total 300 / 300 1300 / 1600 Balance 900 / 900 -890 / 10 Weight 143 lb 1.28 oz Intake: IV Oral 1200 / 1200 400 / 1600 Output: Urine 300 / 300 1300 / 1600 Other: Urine Color Straw Yellow Urine Appearance Clear Clear Urine Odor Normal Data Completed and Pending Pending Labs at Discharge: 07/08/25 07/08/25 07/08/25 19:11 19:37 20:37 WBC 6.99 RBC 4.50 Hgb 14.9 D Hct 42.2 MCV 94 MCH 33.1 H MCHC 35.3 RDW 13.2 Plt Count 411 H MPV 8.8 Immature Gran % 0.1 Neutrophils % 41.1 Lymphocytes % 43.2 Monocytes % 11.4 Eosinophils % 2.6 Basophils % 1.6 Nucleated RBC % 0.0 Absolute Neutrophils 2.87 Absolute Lymphocytes 3.02 Absolute Monocytes 0.80 Absolute Eosinophils 0.18 Absolute Basophils 0.11 PT Cancelled 11.2 H INR Cancelled 1.1 APTT Cancelled 26.8 Sodium Cancelled 143 Potassium Cancelled 4.0 Chloride Cancelled 101 Carbon Dioxide Cancelled 26.2 Anion Gap Cancelled 15.8 H BUN Cancelled 6 L Creatinine Cancelled 0.5 L Est GFR (CKD-EPI 2020) Cancelled 161.50 Glucose Cancelled 111 H Hemoglobin A1c Calcium Cancelled 9.5 Phosphorus Magnesium Cancelled 1.8 Total Bilirubin Cancelled 0.30 Conjugated Bilirubin AST Cancelled 47 H ALT Cancelled 41 Alkaline Phosphatase Cancelled 79 Troponin I Cancelled 80 H* 91 H* Total Protein Cancelled 8.1 Albumin Cancelled 4.8 Triglycerides Total Cholesterol LDL Cholesterol, Calc HDL Cholesterol Lipase Cancelled 27 Ethyl Alcohol Cancelled 279.9 H Add-On Test Request 07/08/25 07/09/25 07/09/25 22:40 05:40 07:06 WBC 7.41 RBC 3.41 L Hgb 11.3 L D Hct 32.1 L MCV 94 MCH 33.1 H MCHC 35.2 RDW 13.2 Plt Count 353 MPV 9.9 Immature Gran % 0.1 Neutrophils % 60.0 Lymphocytes % 23.8 Monocytes % 12.6 Eosinophils % 2.6 Basophils % 0.9 Nucleated RBC % 0.0 Absolute Neutrophils 4.45 Absolute Lymphocytes 1.76 Absolute Monocytes 0.93 H Absolute Eosinophils 0.19 Absolute Basophils 0.07 PT INR APTT Sodium Potassium Chloride Carbon Dioxide Anion Gap BUN Creatinine Est GFR (CKD-EPI 2020) Glucose Hemoglobin A1c 5.5 Calcium Phosphorus 2.8 Magnesium 1.8 Total Bilirubin 0.70 Conjugated Bilirubin 0.2 AST 70 H ALT 36 Alkaline Phosphatase 65 Troponin I 94 H* 40 Total Protein 6.9 Albumin 4.1 Triglycerides Cancelled Total Cholesterol Cancelled LDL Cholesterol, Calc Cancelled HDL Cholesterol Cancelled Lipase Cancelled 28 Ethyl Alcohol Add-On Test Request DONE 07/09/25 07/10/25 08:10 05:59 WBC 5.23 RBC 3.52 L Hgb 11.5 L Hct 32.9 L MCV 94 MCH 32.7 MCHC 35.0 RDW 12.7 Plt Count 282 MPV 9.6 Immature Gran % Neutrophils % Lymphocytes % Monocytes % Eosinophils % Basophils % Nucleated RBC % Absolute Neutrophils Absolute Lymphocytes Absolute Monocytes Absolute Eosinophils Absolute Basophils PT INR APTT Sodium 139 Potassium 3.5 Chloride 104 Carbon Dioxide 25.0 Anion Gap 10 BUN 5 L Creatinine 0.5 L Est GFR (CKD-EPI 2020) 189.56 Glucose 97 Hemoglobin A1c Calcium 9.3 Phosphorus Magnesium 1.7 Total Bilirubin 0.70 Conjugated Bilirubin AST 52 H ALT 34 Alkaline Phosphatase 86 Troponin I Total Protein 7.1 Albumin 4.2 Triglycerides 78 Total Cholesterol 133 LDL Cholesterol, Calc 44.6 HDL Cholesterol 73 Lipase Ethyl Alcohol Add-On Test Request [facility] All Active Problems (Updated 07/08/25 @ 21:59 by Meagan eHrnandez NP) Non-ST elevation [place] (NSTEMI) (Acute) Elevated troponin (Acute) Abdominal pain (Acute) Acute alcoholic intoxication (Acute) Thrombocytopenia (Chronic) Tobacco dependence (Acute) Chest pain (Acute) Constipation (Acute) Alcohol intoxication (Acute) Alcoholism, chronic (Chronic) Pancreatitis (Chronic) Gallbladder polyp (Acute) Postprandial RUQ pain (Acute) Gallbladder disease (Acute) Dizziness (Acute) Nicotine addiction (Chronic) Avascular necrosis of bone of left hip (Acute) Hepatic steatosis (Acute) Impairment of balance (Acute) Chronic vertigo (Acute) Medical History Anxiety Acid reflux 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 Osteonecrosis bone of left hip 04/23/24 CT evidence of a vascular necrosis of left hip Alcohol abuse Gallstone (~08/2024) Surgical History 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) Cyst of right upper eyelid Family History Maternal Grandfather Alcohol abuse Maternal Uncle Alcohol abuse Social History Smoking/Tobacco Use Status: Current every day Tobacco Type: cigarettes Years smoked: 25 Smoking risk assessment performed?: Yes Alcohol Intake: current Alcohol Intake frequency: 3 or more drinks per day Counseling given: Yes Drug use: Never Substance use type: does not use Housing: apartment 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 Time Spent with Patient Time Spent with Patient: <45 minutes Time was spent: preparing to see the patient(eg.review tests), obtaining and/or reviewing separately otained hiistory, ordering medications,tests, procedures, referring, communicating with other health care asst, indepentently interpreting results, counseling the patient and care coordination
== END 2025-07-11 10:06 | disposition home or self-care (01) | DRG 897 ==
LOC: ER 21:59 → ICU 22:57 → MS 07-09 14:05
PROVIDERS: Family Medicine; Admitting Provider Hospitalist; Emergency Provider Registered Nurse Emergency; PCP Nurse Practitioner Family; Responsible Provider Family Medicine; Visit Provider Hospitalist
DX: F10.239 Alcohol dependence with withdrawal, unspecified (principal); K86.1 Other chronic pancreatitis; M87.852 Other osteonecrosis, left femur; Z59.811 Housing instability, housed, with risk of homelessness; I24.9 Acute ischemic heart disease, unspecified; Y90.8 Blood alcohol level of 240 mg/100 ml or more; F10.229 Alcohol dependence with intoxication, unspecified; R07.89 Other chest pain; R74.8 Abnormal levels of other serum enzymes; F17.210 Nicotine dependence, cigarettes, uncomplicated; R20.2 Paresthesia of skin; R00.0 Tachycardia, unspecified; Z96.641 Presence of right artificial hip joint; K21.9 Gastro-esophageal reflux disease without esophagitis; F41.9 Anxiety disorder, unspecified; K76.0 Fatty (change of) liver, not elsewhere classified; K59.00 Constipation, unspecified; D69.6 Thrombocytopenia, unspecified; D52.0 Dietary folate deficiency anemia; Z59.82 Transportation insecurity; Z56.0 Unemployment, unspecified
CPT/HCPCS: 00123; 36415; 80053; 80061; 80076; 83690; 85027; 93005; 96361; 96365; 97116; 97162; 97530; 99285; J1650; 71046; 80320; 83036; 83735; 84100; 84484; 85025; 85610; 85730; 93010; 99222; 99232; 99233; 99238; J2405; J2560; J3411; J3475

== ENCOUNTER → 2025-08-07 00:08 | Outpatient (CLI) | payer MEDICAID, SELFPAY ==
--- NOTE | 2025-08-07 | ETT_ITS ---
APPROVED REPORT Exam: Exercise Treadmill Patient Location: Out-Patient Room/Bed: Stress Nurse: Valery Oliveira RN Ordering Provider:OWEN BLADIMIR, Contact Number: [phone] BMI: 23.07 Baseline Rhythm: Sinus Rhythm Indications: ? heart disease; NSTEMI Medical History Medical History: alcoholism, tobacco dependence, thrombocytopenia, anxiety, acid reflux, pancreatitis Cardiac Medications: naltrexone, thiamine, trazodone Allergies: hydromorphone Cardiac Risk Factors: smoker Previous Cardiac Procedures: n/a Pretest Chest Pain Characteristics: No chest pain Exercise History: Indeterminate Physical Disabilities: n/a Lung Sounds: Clear to auscultation Heart Sounds: Regular Stress Test Details Test: Exercise stress testing was performed using a Toño protocol. Rest Stress HR Resting HR Supine: 60 bpm Max Heart Rate (APMHR): 171 bpm Resting HR Standin bpm Target HR (85% APMHR): 145 bpm Max HR Achieved: 146 bpm % of APMHR: 85 Recovery HR: 90 bpm HR response to stress: Normal HR response to stress BP Resting BP Supine: 114/70 mmHg Resting BP Standin/68 mmHg Max BP: 170/84 mmHg Recovery BP: 104/78 mmHg BP response to stress: Normal blood pressure response to stress. ECG Resting ECG: Sinus Rhythm Ectopy: n/a Stress ECG: Sinus Tachycardia ST Change: No significant ST segment changes noted Arrhythmia: None Recovery ECG: Sinus Rhythm Recovery ST Change: No significant ST segment changes noted Recovery Arrhythmia: occasional nonconducted PACs Clinical Reason for Termination: Target HR Achieved, Fatigue Stress Symptoms: Dyspnea, General Fatigue Exercise duration: 07 min52 sec Highest Stage Reached: Stage 3: 3.4 mph at 14% grade. Exercise capacity: 9.92 METs Angina Score: None Tong Treadmill Score: 7.3 Rate Pressure Product: [id number] Stress ECG Conclusion 1. Resting electrocardiogram was normal 2. Patient exercised on the Toño protocol and completed workload of 10 METS 3. Normal heart rate and blood pressure response to exercise. The patient achieved 85% of maximal predicted heart rate for age 4. There was no electrocardiographic evidence of myocardial ischemia 5. There were no significant dysrhythmias Tong Treadmill Score is 7.3 which is Low risk. Stress Test Summary STAGE Time (mins) Speed (mph) Grade (%) HR BP SpO2 SYMPTOMS METS Supine 60 114/70 95 Standing 69 110/68 1 3 1.7 10 93 122/80 95 mild SOB 4.5 2 6 2.5 12 114 130/82 96 mod. SOB 7 3 9 3.4 14 146 10 1 min recovery 125 170/84 96 mild SOB 3 min recovery 88 140/84 96 6 min recovery 90 104/78 97 Test stopped due to pt meeting target HR and pt request r/t general fatigue and SOB. All symptoms resolved by end of recovery. Pt left ambulatory in no acute distress.
== END ==
LOC: DI 00:08
PROVIDERS: PCP Nurse Practitioner Family; Visit Provider Nurse Practitioner Family
DX: Z71.1 Person with feared health complaint in whom no diagnosis is made (principal); I21.4 Non-ST elevation (NSTEMI) myocardial infarction
CPT/HCPCS: 93017